=== PATIENT | female | born 1960 | race Caucasian/White ===

== ENCOUNTER 2016-05-11 14:21 | Outpatient (RCR) | payer MEDICAID ==
[~2016-05-11 14:21] MED LIST: ACET1TAB12; ACLI400A IH; AGM875T; AGM875T PO; ALB0.5V; ALBU0.8322; ALBU0.8322 IH; ALBU0.8322 INH; ALBU17AE23; ALBU17AE23 IH; ALBU17AE23 INH; ALBU17AE3; ALBU17AE3 IH; ALBU2.5V4 IH; ALBU2.5V4 NEB; ALBU2.5V52 NEB; ALBU8.5HRX IH; ALBU8.5HRX INH; ALBUTERAL INHALER; ALBUTEROL SULFATE; ALLEGRA; ALPR0.2550 PO; ALPR1T; ALPR1TAB21; ALPR1TAB7 PO; ALPR1TAB72 PO; AMOX1TAB63 PO; AMOX500C2 PO; ANTI14DR4 RIGHT EAR; AZIT-21 PO; AZIT250T PO; AZIT250T5 PO; AZIT250T81 PO; BENZ100C18 PO; BMT1T PO; BUDE0.5A2 IH; BUDE0.5A2 NEB; BUDE10.22; BUDE1AMP IH; BUDE6HFA; BUDE6HFA INH; CALC-696 PO; CALC-722 PO; CALC1TAB38 PO; CARB4TAB; CARB4TAB PO; CEFD300C3 PO; CEFP250T3 PO; CEFP500T4 PO; CEFU500T5 PO; CEPH500C PO; CETI10TA17; CFR250T; CLARITIN PO; CLIN-62 PO; CLIN150V3 IJ; CLIN150V3 PO; CMBV14.7IN; CODE-54; COMBIVENT; CTRZ10T; DEXL60CA PO; DEXL60CA5 PO; DICL500C PO; DILT120C56 PO; DILT120C57 PO; DILT120C85 PO; DILT360C30; DILT360C30 PO; DOXY-13 PO; DOXY-233 PO; DOXY100C2 PO; DOXY100C42 PO; ENXP100I SC; ESTR1TAB24; FAMO20TA5 PO; FENO145T PO; FENO145T2; FENO145T2 PO; FENO145T20 PO; FENO48TA2; FLC150T PO; FLUC150T PO; FLUC200T45 PO; FLUT10SP NS; FRSM10B60; FRSM20T; FRSM40T; FRSM40T PO; FURO80TA3 PO; GFCD10B PO; HC A28.3 PR; HCT25T PO; HYCOSAMINE PO; HYDR-2941 PO; HYDR-34 PO; HYDR-3714 PO; HYDR-3730 PO; HYDR-3816 PO; HYDR-3820 PO; HYDR-757 PO; HYDR118S10 PO; HYDR12.570 PO; HYDR1TAB3 PO; HYOS0.1217 PO; HYOS0.127 PO; HYOS0.127 SL; HYOS0.1281 PO; IOPHEN C NR; IPRA0.2S18 IH; IPRA0.2S18 NEB; IPRA0.2S47; IPRA0.2S51 NEB; IPRA3AMP IH; IPRA3AMP11 INH; IPRA3AMP19 INH; KCL10CCR; KCL10CCR PO; KCL20TCR PO; KLOR; KLOR-CON 20MEQ PO; LEVO500T2 PO; LEVO500T69 PO; LEVO750T24 PO; LEVO750T6 PO; LNS30CCR; LNZ600T PO; LORA10TA7 PO; LRT10T; LRT10T PO; LVF500T PO; METH125V2 IV; MNTL10T; MNTL10T PO; MONT10TA21; MONT10TA24 PO; MPR22T TOP; NASOCORT; NITR-65 PO; ONDA4TAB10 PO; ONDA4TAB11 PO; ONDA4TAB2 PO; ONDA8TAB13 PO; ONDN4T; ONDN4T PO; OXYC-109 PO; PALGIC; PANT40TA PO; PANT40TA3 PO; PNT40TEC; PNT40TEC PO; POLY119P PO; POTA10TA6; POTA10TA6 PO; POTA20TA15 PO; PRD20T; PRD20T PO; PRD50T PO; PRD5T PO; PRED10TA PO; PRED10TA22 PO; PRED5TAB PO; PROM25TA14 PO; PROP1TAB77; PROP1TAB77 PO; PROTONIX PO; Prednisone PO; RT-ALBUINH IH; SIMBACORT; SULF1TAB35 PO; SULF1TAB38 PO; TAZTIA; TAZTIA XT; TIOT18CA; TIOT18CA INH; TRIA16.5; TRIA16.5 NS; TRIA16.5 NSEACH; TRIA16.58 NS; TRIA16.58 NSEACH; TRIAMCINOLONE; TYLENOL # 3; WARF5TAB58 PO; WARF5TAB6 PO; WARF5TAB8 PO; WRF3T; WRF3T PO; WRF5T PO; [UNRECOGNIZED DRUG - CODE]; [UNRECOGNIZED DRUG - CODE]; [UNRECOGNIZED DRUG - OTHER]; [UNRECOGNIZED DRUG - OTHER]; [UNRECOGNIZED DRUG - OTHER]; [UNRECOGNIZED DRUG - OTHER]; [UNRECOGNIZED DRUG - OTHER]; [UNRECOGNIZED DRUG - OTHER] INH; coumadin; palgic PO; xanax
[2016-05-11 14:51] LABS: INR 3.9 (0.8-1.4); PROTHROMBIN TIME PATIENT 38.3 SEC (12.2-14.7)
[2016-06-04] MEDS ORDERED: PRD20T PO (14:58)
[2016-06-04] MEDS ORDERED: CEFD300C3 PO (14:58)
[2016-06-06] MEDS ORDERED: bumex (03:23)
[2016-06-06] MEDS ORDERED: POTA10TA10 PO (09:34)
[2016-06-06] MEDS ORDERED: DILT120C85 PO (09:34)
[2016-06-06] MEDS ORDERED: FURO80TA3 PO (09:34)
[2016-06-06] MEDS ORDERED: CALC-694 PO (09:34)
[2016-06-06] MEDS ORDERED: HYOS0.1218 PO (09:34)
[2016-06-11] MEDS ORDERED: PRD20T PO (07:46)
[2016-06-11] MEDS ORDERED: CEFP500T4 PO (07:46)
[2016-06-25 15:48] LABS: INR 4.7 (0.8-1.4); PROTHROMBIN TIME PATIENT 44.6 SEC (12.2-14.7)
[2016-07-06] MEDS ORDERED: DOXY-227 PO (19:00)
[2016-07-23] MEDS ORDERED: HYOS0.1217 SL (16:18)
== END 2016-08-09 | disposition home or self-care (01) ==
LOC: LAB 14:21
PROVIDERS: ATTEND Family Medicine
DX: Z51.81 Encounter for therapeutic drug level monitoring (principal); Z79.01 Long term (current) use of anticoagulants; Z86.718 Personal history of other venous thrombosis and embolism
CPT/HCPCS: 36415; 85610

== ENCOUNTER 2016-06-04 13:01 | Emergency (ER) | payer MEDICAID ==
[~2016-06-04] VITALS: Ht 165.1 cm; Wt 98.6 kg
--- NOTE | 2016-06-04 13:43 | ED Cough/URI ---
General Chief Complaint: Respiratory Problems Stated Complaint: COUGH/CONGESTION WHEEZING Nursing Triage Note: PT REPROTS INCREASING SOA SINCE LAST NIGHT. PT ALSO REPORTS NASAL CONGESTION AND COUGH. PT DENEIS ANY RECENT FEVER BUT SAYS SHE HAS HAD HOT AND COLD FLASHES. Source: patient Exam Limitations: no limitations History of Present Illness Time seen by provider: 13:43 Initial Comments To ER with a cough, increased shortness of breath and wheezing since last night. History of COPD with frequent exacerbations. No fevers. Timing/Duration: constant Severity/Quality: productive cough Associated Symptoms: cough, nasal congestion, shortness of breath, wheezing Allergies and Home Medications Allergies Coded Allergies: aspirin (Verified Allergy, Severe, ANAPHYLAXIS, 07/30/11) ibuprofen (Verified Allergy, Severe, ANAPHYLAXIS, 07/30/11) aloe (Verified Allergy, Mild, RASH, 07/30/11) aloe vera (Verified Allergy, Mild, 07/30/11) iodine (Verified Allergy, Unknown, 07/30/11) ketorolac (Verified Allergy, Unknown, 07/30/11) latex (Verified Allergy, Unknown, 10/07/13) OCCASIONALLY IS IRRITATING SKIN tetanus & diphtheria toxoids (Unverified Allergy, Unknown, 12/31/13) Uncoded Allergies: ALOE VERA (Allergy, Unknown, 12/23/05) SILK SUTURES (Adverse Reaction, Unknown, BODY REJECTS SUTURES, 10/07/13) Home Medications Albuterol Sulfate 2.5 Mg/3 Ml Vial.neb 2.5 MG IH TID (Reported) USES THIS ALONG WITH IPRATROPIUM SOLUTION Albuterol Sulfate 8.5 Gm Hfa.aer.ad 2 PUFF IH EVERY 4-6 HOURS PRN PRN WHEEZING ( Reported) Alprazolam 1 Mg Tablet 1 MG PO Q8H PRN PRN ANXIETY (Reported) Azithromycin 250 Mg Tablet #6 250 MG PO UD TAKE 2 TABLETS TODAY, THEN TAKE 1 TABLET DAILY FOR 4 MORE DAYS Prescribed by: KAMRAN LINDQUIST on 10/13/15 1341 Azithromycin 250 Mg Tablet #6 250 MG PO UD 2 tablets by mouth on day 1, then 1 tablet daily 4 days Prescribed by: KAMRAN LINDQUIST on 01/24/16 1322 Budesonide 1 Mg/2 Ml Ampul.neb #1 1 MG IH BID Prescribed by: STEPHANIE ECKERT on 11/30/15 1420 Calcium Citrate/Vitamin D3 1 Each Tablet 1 TAB PO BID (Reported) Diltiazem HCl 120 Mg Capsule.er 120 MG PO DAILY (Reported) Doxycycline Monohydrate 100 Mg Capsule #30 100 MG PO BID Prescribed by: STEPHANIE ECKERT on 11/30/15 1420 Fenofibrate Nanocrystallized 145 Mg Tablet 145 MG PO DAILY (Reported) Furosemide 80 Mg Tablet 80 MG PO DAILY (Reported) Hydrocodone/Acetaminophen 1 Each Tablet 1 TAB PO EVERY 6-8 HOURS PRN PRN PAIN ( Reported) Hydrocodone/Acetaminophen 1 Each Tablet #35 1-2 EACH PO Q6H Prescribed by: TEDDY PHILIP on 09/15/15 0937 Hyoscyamine Sulfate 0.125 Mg Tablet 0.125 MG PO Q6H PRN PRN CRAMPS (Reported) Ipratropium [place] 0.2 Mg/1 Ml Solution 1 VIAL NEB TID (Reported) USES ALONG WITH ALBUTEROL SOLUTION Loratadine 10 Mg Tablet 10 MG PO DAILY (Reported) Montelukast Sodium 10 Mg Tablet 10 MG PO HS (Reported) Pantoprazole Sodium 40 Mg Tablet.dr 40 MG PO DAILY (Reported) Potassium Chloride 20 Meq Tab.er.prt 20 MEQ PO TID (Reported) Prednisone 20 Mg Tab #6 40 MG PO DAILY Prescribed by: KAMRAN LINDQUIST on 10/13/15 1341 Prednisone 20 Mg Tab #15 20 MG PO TID Prescribed by: SALOMÓN ELY on 11/07/15 2136 Prednisone 5 Mg Tablet #78 5 MG PO UD 12 PILLS DAY 1, THEN DECREASE BY 1 PILL A DAY UNTIL GONE Prescribed by: STEPHANIE ECKERT on 11/30/15 1420 Prednisone 10 Mg Tab.ds.pk #42 10 MG PO UD 6 tablets on day one and 2 5 tablets on day 3 and 4 4 tablets on day 5 and 6 3 tablets on day 7 and 8 2 tablets on day 9 and 10 1 tablet on day 11 and 12 Prescribed by: KAMRAN LINDQUIST on 01/24/16 1322 Prednisone 20 Mg Tab #8 20 MG PO BID Prescribed by: ALVA LAMAR on 03/02/162048 Promethazine HCl 25 Mg Tablet 25 MG PO Q6H PRN PRN NAUSEA/VOMITING (Reported) Warfarin Sodium 5 Mg Tablet 5 MG PO DAILY @ 1800 (Reported) Constitutional: see HPI EENTM: see HPI Respiratory: see HPI cough short of breath wheezing Cardiovascular: no symptoms reported 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: no symptoms reported Musculoskeletal: no symptoms reported Skin: no symptoms reported Psychiatric/Neurological: No Symptoms Reported Hematologic/Lymphatic: No Symptoms Reported Past Rgrbhyu-Yzonsg-Pnhssp Hx Patient Social History Alcohol Use: Denies Use Recreational Drug Use: No (15 yrs ago---IV drug user including Cocaine-CLEAN SINCE 1994) Smoking Status: Former Smoker Type Used: Cigarettes Former Smoker/When Quit: May 13, 2002 Recent Foreign Travel: No Contact w/Someone Who Travel: No Recent Infectious Disease Expo: No Recent Hopitalizations: No Physical Abuse Screen: No Sexual Abuse: No Immunizations Up To Date Tetanus Booster (TDap): Less than 5yrs PED Vaccines UTD: No Date of Pneumonia Vaccine: May 13, 2010 Date of Influenza Vaccine: Mar 11, 2012 Seasonal Allergies Seasonal Allergies: Yes Surgeries HX Surgeries: Yes (shoulder scope, knee scope, dnc, trop ease filter, ) Surgeries: Abdominal, Adenoidectomy, Section, Gallbladder, Hysterectomy, Orthopedic, Tonsillectomy, Vascular Surgery Respiratory Hx Respiratory Disorders: Yes (O2 AT NIGHT 2-3L) Respiratory Disorders: Asthma, Pneumonia, Chronic Bronchitis, Pulmonary Embolism, Sleep Apnea, COPD, Emphysema Cardiovascular Hx Cardiac Disorders: Yes (VENA CAVA FILTER 2009; VARICOSE VEINS WITH VENOUS STASIS ULCERS) Cardiac Disorders: Chronic Edema/Swelling, Deep Vein Thrombosis, High Cholesterol, Hypertension, Peripheral Vascular Neurological Hx Neurological Disorders: No 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 System Hx 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 Disorders: No Sexually Transmitted Disease: No HIV/AIDS: No 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 Disorders: Denies 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 Hx 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 Disorders: Yes 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 Disorders: Bladder Infection Gastrointestinal Hx Gastrointestinal Disorders: Yes Gastrointestinal Disorders: Colitis, Gastroesophageal Reflux, Chronic Constipation, Diverticulosis, Polyps, Hiatal Hernia, Irritable Bowel Musculoskeletal Hx Musculoskeletal Disorders: Yes Musculoskeletal Disorders: Arthritis Endocrine Hx Endocrine Disorders: Yes (PRE-DIABETIC ) HEENT HX ENT Disorders: Yes (GLASSES) HEENT Disorders: Tinnitis Loss of Vision: Bilateral Hearing Impairment: Hard of Hearing Cancer Hx Cancer: No Psychosocial Hx Psychiatric Problems: Yes Behavioral Health Disorders: Anxiety Integumentary HX Skin/Integumentary Disorder: Yes (CHRONIC VENOUS STASIS CHANGES/VENOUS STASIS ULCERS) Skin/Integumentary Disorders: Recent Skin Changes Blood Transfusions Hx Blood Disorders: Yes (HX OF DVT'S/ P.E.'S; PROBABLE PROTEIN C DEFICIENCY) Adverse Reaction to a Blood Tr: No (HAS HAD BLOOD WITH NO PROBLEMS) Family Medical History Significant Family History: Cancer, COPD, Vascular Disease Family Medial History: Alcoholism Alcoholism Arthritis Asthma Cancer Cancer of colon Cancer of mouth Cardiovascular disease Cataract Cataracts Chest pain Colon cancer Completed stroke Diabetes mellitus Family history: Allergy Family history: Arthritis Family history: Asthma Family history: Cardiovascular disease Family history: Coronary thrombosis Family history: Diabetes mellitus Family history: Gastrointestinal disease Family history: Hypertension Family history: Thyroid disorder Headache Hearing loss Heart disease History of - anemia History of - respiratory disease Hypercholesterolemia Hypercholesterolemia Infertile Malignant neoplasm of lung Myocardial infarction Myocardial infarction Psychotic disorder Respiratory disorder Stroke No Family History of: AIDS Abdominal aortic aneurysm Abdominal aortic aneurysm Litchfield's disease Litchfield's disease Alzheimer's disease Aphasia Aphasia Congenital disease Congenital heart disease Congenital heart disease Congestive heart failure Coronary thrombosis Cystic fibrosis Cystic fibrosis Deafness or hearing loss Dementia Dementia Drug abuse Dysphagia Dysphasia Family history: Alzheimer's disease Family history: Breast disease Family history: Glaucoma Family history: Osteoporosis Fibrocystic disease of breast Gastroenteritis Glaucoma Headache disorder Hereditary disease History of - disorder History of drug abuse Human immunodeficiency virus (HIV) seropositivity Infertility Kidney disease Kidney disease Neoplasm Not obtainable due to adoption Osteoporosis Parkinson's disease Parkinson's disease Prostate cancer Psychosocial problem Seizure disorder Seizure disorder Severe allergy Thyroid disease Tuberculosis Tuberculosis Visual disorder Visual impairment Physical Exam Vital Signs Vital Sign - Last 12Hours 06/04/16 06/04/16 13:35 13:51 Temp 97.8 Pulse 92 Resp 22 B/P 122/80 Pulse Ox 93 O2 Delivery Room Air O2 Flow Rate 2 Capillary Refill : Less Than 3 Seconds General Appearance: WD/WN no apparent distress Eyes: Bilateral Eye EOMI, Bilateral Eye Normal Inspection, Bilateral Eye PERRL HEENT: PERRL/EOMI normal ENT inspection Neck: non-tender full range of motion Respiratory: no respiratory distress no accessory muscle use decreased breath sounds wheezing Gastrointestinal: normal bowel sounds non tender soft Extremities: normal range of motion non-tender Neurologic/Psychiatric: alert normal mood/affect oriented x 3 Skin: normal color warm/dry Progress/Results/Core Measures Results/Orders Lab Results Laboratory Tests Test 06/04/16 13:54 Range/Units Basophils # (Auto) 0.0 0.0-0.1 10^3/uL Basophils (%) (Auto) 0 0-10 % Eosinophils # (Auto) 0.3 0.0-0.3 10^3/uL Eosinophils (%) (Auto) 4 0-10 % Hematocrit 40 35-52 % Hemoglobin 13.3 11.5-16.0 G/DL INR Comment 2.9 H 0.8-1.4 Lymphocytes # (Auto) 2.1 1.0-4.0 X 10^3 Lymphocytes (%) (Auto) 26 12-44 % Mean Corpuscular Hemoglobin 29 25-34 PG Mean Corpuscular Hemoglobin Concent 33 32-36 G/DL Mean Corpuscular Volume 87 80-99 FL Mean Platelet Volume 8.9 7.4-10.4 FL Monocytes # (Auto) 0.6 0.0-1.0 X 10^3 Monocytes (%) (Auto) 8 0-12 % Neutrophils # (Auto) 5.2 1.8-7.8 X 10^3 Neutrophils (%) (Auto) 63 42-75 % Platelet Count 289 130-400 10^3/uL Prothrombin Time 29.8 H 12.2-14.7 SEC Red Blood Count 4.59 4.35-5.85 10^6/uL Red Cell Distribution Width 14.7 H 10.0-14.5 % White Blood Count 8.3 4.3-11.0 10^3/uL My Orders Orders-KAMRAN LINDQUIST [employer] Cbc With Automated Diff (06/04/16 13:38) Chest Pa/Lat (2 View) (06/04/16 13:38) Albuterol/Ipra Inhalation Soln (Duoneb I (06/04/16 13:45) Svn Sm Volume Nebulizer Rt-Rfs (06/04/16 13:38) Prednisone Tablet (Deltasone Tablet) (06/04/16 13:45) Protime With Inr (06/04/16 13:43) Ipratropium 0.02% Neb Solution (Atrovent (06/04/16 13:52) Albuterol Pre-Mix Nebs (Rt) (Proventil P (06/04/16 13:52) Medications Given in ED Current Medications Medications Dose Ordered Sig/Nahomi Route Start Time Stop Time Status Last Admin Dose Admin Albuterol Sulfate 2.5 mg STK-MED ONCE .ROUTE 06/04/16 13:52 06/04/16 14:01 DC 06/04/16 14:02 15 MG Albuterol/ Ipratropium 3 ml ONCE ONCE INH 06/04/16 13:45 06/04/16 13:46 DC 06/04/16 13:51 3 ML Ipratropium [place] 0.5 mg STK-MED ONCE IH 06/04/16 13:52 06/04/16 14:01 DC 06/04/16 14:01 0.5 MG Vital Signs/I&O Vital Sign - Last 12Hours 06/04/16 06/04/16 06/04/16 13:35 13:51 14:04 Temp 97.8 Pulse 92 Resp 22 B/P 122/80 Pulse Ox 93 94 94 O2 Delivery Room Air Nasal Cannula O2 Flow Rate 2 Blood Pressure Mean: 94 Departure Impression Impression: Primary Impression: COPD exacerbation Disposition: HOME, SELF-CARE Condition: Stable Departure-Patient Inst. Decision time for Depature: 14:51 Referrals: LEAH WOLF MD (PCP/Family) Primary Care Physician Patient Instructions: Exacerbation of COPD Add. Discharge Instructions: 1. Return to ER for any concerns 2. Steroids and azithromycin as directed 3. All discharge instructions reviewed with patient and/or family. Voiced understanding. Scripts Cefdinir 300 Mg [id number] Mg PO BID #14 CAP Prov:KAMRAN LINDQUIST [employer] 06/04/16 Prednisone 20 Mg Tab60 Mg PO DAILY #18 TAB 60 mg 3 days, 40 mg 3 days, 20 mg 3 days Prov:KAMRAN LINDQUIST [employer] 06/04/16 KAMRAN LINDQUIST [employer] UND[employer]WRITER Jun 04, 2016 13:43
[2016-06-04] MEDS ORDERED: RT-ALBUTEROL/IPRATROPIUM 3 ML (DUONEB) VIAL INH ONE (13:45)
[2016-06-04] MEDS ORDERED: predniSONE 10 MG TAB PO ONE (13:45)
[2016-06-04] MEDS ORDERED: RT-IPRATROPIUM (ATROVENT) 0.5MG/2.5ML AMP IH ONE (13:52)
[2016-06-04] MEDS ORDERED: RT-ALBUTEROL SULF 2.5 MG/3 ML PRE-MIX VIAL ONE (13:52)
[2016-06-04 14:02] LABS: BASOPHILS % (AUTO) 0 % (0-10); EOSINOPHILS # (AUTO) 0.3 10^3/uL (0.0-0.3); EOSINOPHILS % (AUTO) 4 % (0-10); LYMPHOCYTES # (AUTO) 2.1 X 10^3 (1.0-4.0); LYMPHOCYTES % (AUTO) 26 % (12-44); MEAN CORPUSCULAR HEMOGLOBIN 29 PG (25-34); MEAN CORPUSCULAR HGB CONC 33 G/DL (32-36); MEAN CORPUSCULAR VOLUME 87 FL (80-99); MEAN PLATELET VOLUME 8.9 FL (7.4-10.4); MONOCYTES # (AUTO) 0.6 X 10^3 (0.0-1.0); MONOCYTES % (AUTO) 8 % (0-12); NEUTROPHILS # (AUTO) 5.2 X 10^3 (1.8-7.8); NEUTROPHILS % (AUTO) 63 % (42-75); PLATELET COUNT 289 10^3/uL (130-400); RED BLOOD COUNT 4.59 10^6/uL (4.35-5.85); RED CELL DISTRIBUTION WIDTH 14.7 % (10.0-14.5); WHITE BLOOD COUNT 8.3 10^3/uL (4.3-11.0)
[2016-06-04 14:16] LABS: INR 2.9 (0.8-1.4); PROTHROMBIN TIME PATIENT 29.8 SEC (12.2-14.7)
--- NOTE | 2016-06-04 14:44 | Diagnostic Imaging Report ---
CLINICAL INDICATION: Patient with chest tightness, headache, and rattling. Patient complains of difficulty breathing. EXAM: Chest x-ray PA and lateral views. COMPARISONS: Chest x-ray dated 03/02/2016. FINDINGS: Lungs/pleura: There is minimal atelectasis involving the lingular region. Otherwise, stable appearance of the lung howard with no interval lung infiltrate seen. There is no pneumothorax. There is no pleural effusion. Mediastinum: Unremarkable. Pulmonary vasculature: Unremarkable. Heart: Unremarkable. Bones/extrathoracic soft tissue: There are small degenerative spurs involving the thoracic spine. IMPRESSION: Minimal lingular atelectasis. Otherwise, there is no radiographic evidence of acute cardiopulmonary process. Dictated by: Dictated on workstation # [id number]
[2016-06-04] MEDS ORDERED: PRD20T PO (14:58)
[2016-06-04] MEDS ORDERED: CEFD300C3 PO (14:58)
[2016-06-04 15:31] VITALS: BP 126/77
[2016-06-11] MEDS ORDERED: PRD20T PO (07:46)
[2016-06-11] MEDS ORDERED: CEFP500T4 PO (07:46)
== END 2016-06-04 15:30 | disposition home or self-care (01) ==
LOC: EDUNIT# 13:01 → ER 13:04
DX: J44.1 Chronic obstructive pulmonary disease with (acute) exacerbation (principal); I10 Essential (primary) hypertension; Z87.891 Personal history of nicotine dependence; Z79.899 Other long term (current) drug therapy
CPT/HCPCS: 36415; 71020; 85025; 85610; 94640; 94644

== ENCOUNTER 2016-06-06 03:01 | Inpatient (IN) | payer MEDICAID ==
[2016-06-06] VITALS (10 sets, daily range): BP systolic 106–131; BP diastolic 67–110
[~2016-06-06] VITALS: Ht 165.1 cm; Wt 102.1 kg
[2016-06-06] MEDS ORDERED: RT-ALBUTEROL SULF 2.5 MG/3 ML PRE-MIX VIAL INH STA (03:07)
[2016-06-06] MEDS ORDERED: RT-ALBUTEROL/IPRATROPIUM 3 ML (DUONEB) VIAL INH ONE (03:15)
[2016-06-06] MEDS ORDERED: bumex (03:23)
[2016-06-06 03:31] LABS: BASOPHILS % (AUTO) 0 % (0-10); EOSINOPHILS # (AUTO) 0.1 10^3/uL (0.0-0.3); EOSINOPHILS % (AUTO) 1 % (0-10); LYMPHOCYTES # (AUTO) 2.7 X 10^3 (1.0-4.0); LYMPHOCYTES % (AUTO) 29 % (12-44); MEAN CORPUSCULAR HEMOGLOBIN 29 PG (25-34); MEAN CORPUSCULAR HGB CONC 32 G/DL (32-36); MEAN CORPUSCULAR VOLUME 89 FL (80-99); MEAN PLATELET VOLUME 9.1 FL (7.4-10.4); MONOCYTES # (AUTO) 0.9 X 10^3 (0.0-1.0); MONOCYTES % (AUTO) 9 % (0-12); NEUTROPHILS # (AUTO) 5.6 X 10^3 (1.8-7.8); NEUTROPHILS % (AUTO) 61 % (42-75); PLATELET COUNT 308 10^3/uL (130-400); RED BLOOD COUNT 4.55 10^6/uL (4.35-5.85); RED CELL DISTRIBUTION WIDTH 15.1 % (10.0-14.5); WHITE BLOOD COUNT 9.2 10^3/uL (4.3-11.0)
[2016-06-06 03:38] LABS: ABG BASE EXCESS 1.1 MMOL/L (-2.5-2.5); ABG HCO3 27 MMOL/L (23-27); ABG OXYGEN SATURATION 99 % (94-100); ABG PCO2 44 MMHG (35-45); ABG PO2 144 MMHG (79-93); ABG TCO2 27.9 MMOL/L (21.0-31.0); ALLENS TEST YES-POS
[2016-06-06 03:39] LABS: PATIENT TEMP 97.7
[2016-06-06 03:45] LABS: PROTHROMBIN TIME PATIENT 31.2 SEC (12.2-14.7)
[2016-06-06 03:47] LABS: ALANINE AMINOTRANSFERASE 22 U/L (0-55); ALBUMIN 3.9 G/DL (3.2-4.5); ANION GAP 13 MMOL/L (5-14); ASPARTATE AMINO TRANSFERASE 17 U/L (5-34); BILIRUBIN,TOTAL 0.2 MG/DL (0.1-1.0); BLOOD UREA NITROGEN 16 MG/DL (7-18); BUN/CREATININE RATIO 21; CALCIUM 8.9 MG/DL (8.5-10.1); CARBON DIOXIDE 23 MMOL/L (21-32); CHLORIDE 107 MMOL/L (98-107); CREATININE SERUM 0.77 MG/DL (0.60-1.30); GFR ESTIMATED > 60; GLUCOSE 111 MG/DL (70-105); POTASSIUM 3.4 MMOL/L (3.6-5.0); SODIUM 143 MMOL/L (135-145); hs C REACTIVE PROTEIN 0.05 MG/DL (0.00-0.50)
[2016-06-06] MEDS ORDERED: methylPREDNISolone 125 MG (Solu-MEDROL) VIAL IV STA (05:41)
[2016-06-06] MEDS ORDERED: LORazepam INJ 2 MG/ML (ATIVAN) VIAL IVP ONE (05:45)
--- NOTE | 2016-06-06 06:05 | ED Respiratory ---
General Chief Complaint: Respiratory Problems Stated Complaint: COPD,SOA Nursing Triage Note: SOA x 1 week and a half. Pt was seen in ED on Saturday and was sent home. Pt reports worse this am. Source: patient Exam Limitations: no limitations History of Present Illness Time seen by provider: 03:05 Initial Comments Here with shortness of air that has increased over the last week. Markedly worse on Saturday and was seen here on Saturday. She was started on prednisone and an antibiotic. She filled the antibiotic but did not take them. She denies fever or chills. She is due to have a doctor's appointment with her doctor today but the shortness of air markedly increased overnight. She had to increase her oxygen to keep her sats and reasonable range. She then became quite dyspneic and called EMS. On their arrival they increased her oxygen to full facemask but patient remained significantly dyspneic and ultimately was started on CPAP. This did improve her respiratory status and her O2 sats were in the upper 90s per EMS. No fever per EMS. Denies chest pain, nausea, vomiting or diarrhea. She denies weakness. Does have significant COPD and has occasional exacerbations. Timing/Duration: week, getting worse Severity: moderate Prior Episodes/Possible Cause: occasional episodes Modifying Factors: Worse With Activity, Improves With Albuterol Nebulizer, Worse With Coughing, Improves With Oxygen Associated Symptoms: shortness of breath Allergies and Home Medications Allergies Coded Allergies: aspirin (Verified Allergy, Severe, ANAPHYLAXIS, 07/30/11) ibuprofen (Verified Allergy, Severe, ANAPHYLAXIS, 07/30/11) aloe (Verified Allergy, Mild, RASH, 07/30/11) aloe vera (Verified Allergy, Mild, 07/30/11) iodine (Verified Allergy, Unknown, 07/30/11) ketorolac (Verified Allergy, Unknown, 07/30/11) latex (Verified Allergy, Unknown, 10/07/13) OCCASIONALLY IS IRRITATING SKIN tetanus & diphtheria toxoids (Unverified Allergy, Unknown, 12/31/13) Uncoded Allergies: ALOE VERA (Allergy, Unknown, 12/23/05) SILK SUTURES (Adverse Reaction, Unknown, BODY REJECTS SUTURES, 10/07/13) Home Medications 1 MG (Reported) Albuterol Sulfate 2.5 Mg/3 Ml Vial.neb 2.5 MG IH TID (Reported) USES THIS ALONG WITH IPRATROPIUM SOLUTION Albuterol Sulfate 8.5 Gm Hfa.aer.ad 2 PUFF IH EVERY 4-6 HOURS PRN PRN WHEEZING ( Reported) Alprazolam 1 Mg Tablet 1 MG PO Q8H PRN PRN ANXIETY (Reported) Calcium Citrate/Vitamin D3 1 Each Tablet 1 TAB PO BID (Reported) Cefdinir 300 Mg Capsule #14 300 MG PO BID Prescribed by: KAMRAN LINDQUIST on 06/04/16 1458 Diltiazem HCl 120 Mg Capsule.er 120 MG PO DAILY (Reported) Fenofibrate Nanocrystallized 145 Mg Tablet 145 MG PO DAILY (Reported) Hydrocodone/Acetaminophen 1 Each Tablet 1 TAB PO EVERY 6-8 HOURS PRN PRN PAIN ( Reported) Hyoscyamine Sulfate 0.125 Mg Tablet 0.125 MG PO Q6H PRN PRN CRAMPS (Reported) Ipratropium Gatzke 0.2 Mg/1 Ml Solution 1 VIAL NEB TID (Reported) USES ALONG WITH ALBUTEROL SOLUTION Loratadine 10 Mg Tablet 10 MG PO DAILY (Reported) Montelukast Sodium 10 Mg Tablet 10 MG PO HS (Reported) Pantoprazole Sodium 40 Mg Tablet.dr 40 MG PO DAILY (Reported) Potassium Chloride 20 Meq Tab.er.prt 20 MEQ PO TID (Reported) Promethazine HCl 25 Mg Tablet 25 MG PO Q6H PRN PRN NAUSEA/VOMITING (Reported) Warfarin Sodium 5 Mg Tablet 5 MG PO DAILY @ 1800 (Reported) Constitutional: see HPINo chills, No fever EENTM: nose congestionNo throat pain Respiratory: see HPI cough dyspnea on exertion short of breath wheezing Cardiovascular: no symptoms reported Gastrointestinal: no symptoms reportedNo abdominal pain, No nausea, No vomiting 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: no symptoms reported Musculoskeletal: no symptoms reported Skin: no symptoms reported Psychiatric/Neurological: No Symptoms Reported All Other Systems Reviewed Negative Unless Noted: Yes Past Kbqhqrv-Acejfp-Gzzlqe Hx Patient Social History Alcohol Use: Denies Use Recreational Drug Use: No (15 yrs ago---IV drug user including Cocaine-CLEAN SINCE 1994) Smoking Status: Former Smoker Type Used: Cigarettes Former Smoker/When Quit: May 13, 2002 Recent Foreign Travel: No Contact w/Someone Who Travel: No Recent Infectious Disease Expo: No Recent Hopitalizations: No Physical Abuse Screen: No Sexual Abuse: No Immunizations Up To Date Tetanus Booster (TDap): Less than 5yrs PED Vaccines UTD: No Date of Pneumonia Vaccine: May 13, 2010 Date of Influenza Vaccine: Mar 11, 2012 Seasonal Allergies Seasonal Allergies: Yes Surgeries HX Surgeries: Yes (shoulder scope, knee scope, dnc, trop ease filter, ) Surgeries: Abdominal, Adenoidectomy, Section, Gallbladder, Hysterectomy, Orthopedic, Tonsillectomy, Vascular Surgery Respiratory Hx Respiratory Disorders: Yes (O2 AT NIGHT 2-3L) Respiratory Disorders: Asthma, Pneumonia, Chronic Bronchitis, Pulmonary Embolism, Sleep Apnea, COPD, Emphysema Cardiovascular Hx Cardiac Disorders: Yes (VENA CAVA FILTER 2009; VARICOSE VEINS WITH VENOUS STASIS ULCERS) Cardiac Disorders: Chronic Edema/Swelling, Deep Vein Thrombosis, High Cholesterol, Hypertension, Peripheral Vascular Neurological Hx Neurological Disorders: No 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 System Hx 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 Disorders: No Sexually Transmitted Disease: No HIV/AIDS: No 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 Disorders: 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 Hx 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 Disorders: Yes 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 Disorders: Bladder Infection Gastrointestinal Hx Gastrointestinal Disorders: Yes Gastrointestinal Disorders: Colitis, Gastroesophageal Reflux, Chronic Constipation, Diverticulosis, Polyps, Hiatal Hernia, Irritable Bowel Musculoskeletal Hx Musculoskeletal Disorders: Yes Musculoskeletal Disorders: Arthritis Endocrine Hx Endocrine Disorders: Yes (PRE-DIABETIC ) HEENT HX ENT Disorders: Yes (GLASSES) HEENT Disorders: Tinnitis Loss of Vision: Bilateral Hearing Impairment: Hard of Hearing Cancer Hx Cancer: No Psychosocial Hx Psychiatric Problems: Yes Behavioral Health Disorders: Anxiety Integumentary HX Skin/Integumentary Disorder: Yes (CHRONIC VENOUS STASIS CHANGES/VENOUS STASIS ULCERS) Skin/Integumentary Disorders: Recent Skin Changes Blood Transfusions Hx Blood Disorders: Yes (HX OF DVT'S/ P.E.'S; PROBABLE PROTEIN C DEFICIENCY) Adverse Reaction to a Blood Tr: No (HAS HAD BLOOD WITH NO PROBLEMS) Reviewed Nursing Assessment Reviewed/Agree w Nursing PMH: Yes Family Medical History Significant Family History: Cancer, COPD, Vascular Disease Family Medial History: Alcoholism Alcoholism Arthritis Asthma Cancer Cancer of colon Cancer of mouth Cardiovascular disease Cataract Cataracts Chest pain Colon cancer Completed stroke Diabetes mellitus Family history: Allergy Family history: Arthritis Family history: Asthma Family history: Cardiovascular disease Family history: Coronary thrombosis Family history: Diabetes mellitus Family history: Gastrointestinal disease Family history: Hypertension Family history: Thyroid disorder Headache Hearing loss Heart disease History of - anemia History of - respiratory disease Hypercholesterolemia Hypercholesterolemia Infertile Malignant neoplasm of lung Myocardial infarction Myocardial infarction Psychotic disorder Respiratory disorder Stroke Physical Exam Vital Signs Vital Sign - Last 12Hours 06/06/16 06/06/16 03:04 03:38 Temp 97.7 Pulse 119 Resp 20 B/P 146/103 Pulse Ox 96 O2 Delivery NIV/Bilevel O2 Flow Rate 50 Capillary Refill : Less Than 3 Seconds General Appearance: WD/WN mild distress no apparent distress HEENT: PERRL/EOMI pharynx normal Neck: full range of motion supple Respiratory: respiratory distress decreased breath sounds accessory muscle use wheezing Cardiovascular: no murmur tachycardia Gastrointestinal: non tender soft Extremities: non-tender normal inspection Neurologic/Psychiatric: alert oriented x 3 Skin: normal color warm/dry Progress/Results/Core Measures Results/Orders Lab Results Laboratory Tests Test 06/06/16 03:13 06/06/16 03:15 Range/Units Papa Test YES-POS Arterial Blood Base Excess 1.1 -2.5-2.5 MMOL/L Arterial Blood HCO3 27 23-27 MMOL/L Arterial Blood Oxygen Saturation 99 94-100 % Arterial Blood Partial Pressure CO2 44 35-45 MMHG Arterial Blood Partial Pressure O2 144 H 79-93 MMHG Arterial Blood Total CO2 27.9 21.0-31.0 MMOL/L Arterial Blood pH 7.40 7.37-7.43 Blood Gas Inspired Oxygen 50% BIPAP Blood Gas Patient Temperature 97.7 Blood Gas Puncture Site L RAD Blood Gas Ventilator Setting NO Activated Partial Thromboplast Time 34 24-35 SEC Alanine Aminotransferase (ALT/SGPT) 22 0-55 U/L Albumin 3.9 3.2-4.5 G/DL Alkaline Phosphatase 76 40-136 U/L Anion Gap 13 5-14 MMOL/L Aspartate Amino Transf (AST/SGOT) 17 5-34 U/L BUN/Creatinine Ratio 21 Basophils # (Auto) 0.0 0.0-0.1 10^3/uL Basophils (%) (Auto) 0 0-10 % Blood Urea Nitrogen 16 7-18 MG/DL C-Reactive Protein High Sensitivity 0.05 0.00-0.50 MG/DL Calcium Level 8.9 8.5-10.1 MG/DL Carbon Dioxide Level 23 21-32 MMOL/L Chloride Level 107 98-107 MMOL/L Creatinine 0.77 0.60-1.30 MG/DL Eosinophils # (Auto) 0.1 0.0-0.3 10^3/uL Eosinophils (%) (Auto) 1 0-10 % Estimat Glomerular Filtration Rate > 60 Glucose Level 111 H 70-105 MG/DL Hematocrit 40 35-52 % Hemoglobin 13.1 11.5-16.0 G/DL INR Comment 3.0 H 0.8-1.4 Lactic Acid Level 1.9 0.5-2.0 MMOL/L Lymphocytes # (Auto) 2.7 1.0-4.0 X 10^3 Lymphocytes (%) (Auto) 29 12-44 % Mean Corpuscular Hemoglobin 29 25-34 PG Mean Corpuscular Hemoglobin Concent 32 32-36 G/DL Mean Corpuscular Volume 89 80-99 FL Mean Platelet Volume 9.1 7.4-10.4 FL Monocytes # (Auto) 0.9 0.0-1.0 X 10^3 Monocytes (%) (Auto) 9 0-12 % Neutrophils # (Auto) 5.6 1.8-7.8 X 10^3 Neutrophils (%) (Auto) 61 42-75 % Platelet Count 308 130-400 10^3/uL Potassium Level 3.4 L 3.6-5.0 MMOL/L Prothrombin Time 31.2 H 12.2-14.7 SEC Red Blood Count 4.55 4.35-5.85 10^6/uL Red Cell Distribution Width 15.1 H 10.0-14.5 % Sodium Level 143 135-145 MMOL/L Total Bilirubin 0.2 0.1-1.0 MG/DL Total Protein 7.0 6.4-8.2 G/DL White Blood Count 9.2 4.3-11.0 10^3/uL My Orders Orders-ANDRES HOWE MD Cbc With Automated Diff (06/06/16 03:07) Comprehensive Metabolic Panel (06/06/16 03:07) Hs C Reactive Protein (06/06/16 03:07) Lactic Acid Analyzer (06/06/16 03:07) Blood Culture (06/06/16 03:07) Chest 1 View, Ap/Pa Only (06/06/16 03:07) Albuterol Pre-Mix Nebs (Rt) (Proventil P (06/06/16 03:07) Albuterol/Ipra Inhalation Soln (Duoneb I (06/06/16 03:15) Svn Sm Volume Nebulizer Rt-Rfs (06/06/16 03:07) Svn Sm Volume Nebulizer Rt-Rfs (06/06/16 03:07) Protime With Inr (06/06/16 03:07) Partial Thromboplastin Time (06/06/16 03:07) Arterial Blood Gas (06/06/16 03:20) Methylprednisolone Sod Succ (Solu-Medrol (06/06/16 05:41) Lorazepam Injection (Ativan Injection) (06/06/16 05:45) Medications Given in ED Current Medications Medications Dose Ordered Sig/Nahomi Route Start Time Stop Time Status Last Admin Dose Admin Albuterol/ Ipratropium 3 ml ONCE ONCE INH 06/06/16 03:15 06/06/16 03:16 DC 06/06/16 03:37 3 ML Lorazepam 0.5 mg ONCE ONCE IVP 06/06/16 05:45 06/06/16 05:46 DC 06/06/16 05:50 0.5 MG Vital Signs/I&O Vital Sign - Last 12Hours 06/06/16 06/06/16 03:04 03:38 Temp 97.7 Pulse 119 97 Resp 20 20 B/P 146/103 Pulse Ox 96 98 O2 Delivery NIV/Bilevel O2 Flow Rate 50 Blood Pressure Mean: 117 Progress Note : Progress Note Seen and evaluated. IV, labs, BiPAP initiated and continuous one-hour treatment started. ABG ordered. Monitor patient. Patient is doing better on BiPAP. O2 sats improved and oxygen titrated to 50 percent. Monitor patient. 0544: Patient will get Solu-Medrol 125 mg IV and is going to get Ativan 0.5 mg IV for agitation/anxiousness due to the BiPAP. Overall she states that she is improved. I did discuss the case with Dr. Wolf. No findings of pneumonia or other infectious process. This appears to be significant COPD exacerbation requiring BiPAP at least short-term. We will admit the patient to the hospital for continued evaluation. Treatment continuing and is almost done. Admit, observation status to step down unit. Diagnostic Imaging Diagonstic Imaging: Xray Plain Films/CT/US/NM/MRI: chest Comments No acute findings. Chronic lung disease noted. Departure Communication Time/Spoke to Admitting Phy: 05:44 Impression Impression: Primary Impression: Acute exacerbation of chronic obstructive airways disease Disposition: ADMITTED INPATIENT Condition: Stable Decision to Admit Reason: Admit from ER (General) Decision to Admit/Date: Jun 06, 2016 Time/Decision to Admit Time: 05:44 Departure-Patient Inst. Referrals: LEAH WOLF MD (PCP/Family) Primary Care Physician ANDRES HOWE MD Jun 06, 2016 06:04
--- NOTE | 2016-06-06 07:10 | Diagnostic Imaging Report ---
INDICATION: Shortness of breath. Comparison with 06/04/2016. FINDINGS: The lungs are well-aerated and clear. Heart is not enlarged. There is no pulmonary edema. No pneumothorax or pleural effusion. IMPRESSION: Normal portable chest. Dictated by: Dictated on workstation # [id number]
--- NOTE | 2016-06-06 07:12 | History & Physicial ---
History of Present Illness History of Present Illness Reason for visit/HPI 55-year-old female presented to [facility] emergency department via [facility]. Patient had apparently significant dyspnea this a.m. and despite increasing oxygen at home she did not improve. Her COPD exacerbation had initially started over the weekend and was seen at the emergency department where she was placed on prednisone as well as antibiotic. She apparently started the prednisone but not the antibiotic. There is been no reports of fever. She does admit to a cough. She is with known asthma and frequent admissions for COPD exacerbation. She has been on multiple chronic steroid inhalers and continues to take these. Date of Admission Jun 06, 2016 at 05:44 I consulted on this patient on 06/06/16 07:08 Attending Physician Leah Wolf MD Admitting Physician Leah Wolf MD Consult Allergies and Home Medications Allergies Coded Allergies: aspirin (Verified Allergy, Severe, ANAPHYLAXIS, 07/30/11) ibuprofen (Verified Allergy, Severe, ANAPHYLAXIS, 07/30/11) aloe (Verified Allergy, Mild, RASH, 07/30/11) aloe vera (Verified Allergy, Mild, 07/30/11) iodine (Verified Allergy, Unknown, 07/30/11) ketorolac (Verified Allergy, Unknown, 07/30/11) latex (Verified Allergy, Unknown, 10/07/13) OCCASIONALLY IS IRRITATING SKIN tetanus & diphtheria toxoids (Unverified Allergy, Unknown, 12/31/13) Uncoded Allergies: ALOE VERA (Allergy, Unknown, 12/23/05) SILK SUTURES (Adverse Reaction, Unknown, BODY REJECTS SUTURES, 10/07/13) Home Medications 1 MG (Reported) Albuterol Sulfate 2.5 Mg/3 Ml Vial.neb 2.5 MG IH TID (Reported) USES THIS ALONG WITH IPRATROPIUM SOLUTION Albuterol Sulfate 8.5 Gm Hfa.aer.ad 2 PUFF IH EVERY 4-6 HOURS PRN PRN WHEEZING ( Reported) Alprazolam 1 Mg Tablet 1 MG PO Q8H PRN PRN ANXIETY (Reported) Calcium Citrate/Vitamin D3 1 Each Tablet 1 TAB PO BID (Reported) Cefdinir 300 Mg Capsule #14 300 MG PO BID Prescribed by: KAMRAN LINDQUIST on 06/04/16 6237 Diltiazem HCl 120 Mg Capsule.er 120 MG PO DAILY (Reported) Fenofibrate Nanocrystallized 145 Mg Tablet 145 MG PO DAILY (Reported) Hydrocodone/Acetaminophen 1 Each Tablet 1 TAB PO EVERY 6-8 HOURS PRN PRN PAIN ( Reported) Hyoscyamine Sulfate 0.125 Mg Tablet 0.125 MG PO Q6H PRN PRN CRAMPS (Reported) Ipratropium Babbitt 0.2 Mg/1 Ml Solution 1 VIAL NEB TID (Reported) USES ALONG WITH ALBUTEROL SOLUTION Loratadine 10 Mg Tablet 10 MG PO DAILY (Reported) Montelukast Sodium 10 Mg Tablet 10 MG PO HS (Reported) Pantoprazole Sodium 40 Mg Tablet.dr 40 MG PO DAILY (Reported) Potassium Chloride 20 Meq Tab.er.prt 20 MEQ PO TID (Reported) Promethazine HCl 25 Mg Tablet 25 MG PO Q6H PRN PRN NAUSEA/VOMITING (Reported) Warfarin Sodium 5 Mg Tablet 5 MG PO DAILY @ 1800 (Reported) Past Csmggty-Pcrsbb-Egsvjf Hx Patient Social History Marrital Status: single Number of Children: 3 Alcohol Use: Denies Use Recreational Drug Use: No (15 yrs ago---IV drug user including Cocaine-CLEAN SINCE 1994) Smoking Status: Former Smoker Former smoker/When Quit: May 13, 2002 Type Used: Cigarettes Physical Abuse Screen: No Sexual Abuse: No Recent Foreign Travel: No Contact w/other who traveled: No Recent Hopitalizations: No Recent Infectious Disease Expo: No Immunizations Up To Date Tetanus Booster (TDap): Less than 5yrs Date of Pneumonia Vaccine: May 13, 2010 Date of Influenza Vaccine: Mar 11, 2012 Seasonal Allergies Seasonal Allergies: Yes Surgeries HX Surgeries: Yes (shoulder scope, knee scope, dnc, trop ease filter, ) Surgeries: Abdominal, Adenoidectomy, Section, Gallbladder, Hysterectomy, Orthopedic, Tonsillectomy, Vascular Surgery Respiratory Hx Respiratory Disorders: Yes (O2 AT NIGHT 2-3L) Cardiovascular Hx Cardiovascular Disorders: Yes (VENA CAVA FILTER 2009; VARICOSE VEINS WITH VENOUS STASIS ULCERS) Cardiac Disorders: Chronic Edema/Swelling, Deep Vein Thrombosis, High Cholesterol, Hypertension, Peripheral Vascular Neurological Hx Neurological Disorders: No 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 System Hx 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 Disorders: No Sexually Transmitted Disease: No HIV/AIDS: No 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 Hx 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 Disorders: Yes 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 Disorders: Bladder Infection Gastrointestinal Hx Gastrointestinal Disorders: Yes Gastrointestinal Disorders: Colitis, Gastroesophageal Reflux, Chronic Constipation, Diverticulosis, Polyps, Hiatal Hernia, Irritable Bowel Musculoskeletal Hx Musculoskeletal Disorders: Yes Musculoskeletal Disorders: Arthritis Endocrine Hx Endocrine Disorders: Yes (PRE-DIABETIC ) HEENT HX ENT Disorders: Yes (GLASSES) HEENT Disorders: Tinnitis Loss of Vision: Bilateral Hearing Impairment: Hard of Hearing Cancer Hx Cancer: No Psychosocial Hx Psychiatric Problems: Yes Behavioral Health Disorders: Anxiety Integumentary HX Skin/Integumentary Disorder: Yes (CHRONIC VENOUS STASIS CHANGES/VENOUS STASIS ULCERS) Skin/Integumentary Disorders: Recent Skin Changes Blood Transfusions Hx Blood Disorders: Yes (HX OF DVT'S/ P.E.'S; PROBABLE PROTEIN C DEFICIENCY) Adverse Reaction to a Blood Tr: No (HAS HAD BLOOD WITH NO PROBLEMS) Reviewed Nursing Assessment Reviewed/Agree w Nursing PMH: Yes Family Medical History Significant Family History: Cancer, COPD, Vascular Disease Family Hx: Alcoholism Alcoholism Arthritis Asthma Cancer Cancer of colon Cancer of mouth Cardiovascular disease Cataract Cataracts Chest pain Colon cancer Completed stroke Diabetes mellitus Family history: Allergy Family history: Arthritis Family history: Asthma Family history: Cardiovascular disease Family history: Coronary thrombosis Family history: Diabetes mellitus Family history: Gastrointestinal disease Family history: Hypertension Family history: Thyroid disorder Headache Hearing loss Heart disease History of - anemia History of - respiratory disease Hypercholesterolemia Hypercholesterolemia Infertile Malignant neoplasm of lung Myocardial infarction Myocardial infarction Psychotic disorder Respiratory disorder Stroke No Family History of: AIDS Abdominal aortic aneurysm Abdominal aortic aneurysm Fernando's disease [place]'s disease Alzheimer's disease Aphasia Aphasia Congenital disease Congenital heart disease Congenital heart disease Congestive heart failure Coronary thrombosis Cystic fibrosis Cystic fibrosis Deafness or hearing loss Dementia Dementia Drug abuse Dysphagia Dysphasia Family history: Alzheimer's disease Family history: Breast disease Family history: Glaucoma Family history: Osteoporosis Fibrocystic disease of breast Gastroenteritis Glaucoma Headache disorder Hereditary disease History of - disorder History of drug abuse Human immunodeficiency virus (HIV) seropositivity Infertility Kidney disease Kidney disease Neoplasm Not obtainable due to adoption Osteoporosis Parkinson's disease Parkinson's disease Prostate cancer Psychosocial problem Seizure disorder Seizure disorder Severe allergy Thyroid disease Tuberculosis Tuberculosis Visual disorder Visual impairment Constitutional: see HPI Physical Exam Vital Signs Vital Sign - Last 12Hours 06/06/16 06/06/16 03:04 03:38 Temp 97.7 Pulse 119 Resp 20 B/P 146/103 Pulse Ox 96 O2 Delivery NIV/Bilevel O2 Flow Rate 50 Capillary Refill : Less Than 3 Seconds General Appearance: Moderate Distress Eyes: Bilateral Eye Normal Inspection HEENT: Normal ENT Inspection (With mild pharyngeal erythema) Respiratory: Accessory Muscle Use Other (Distant lung sounds) Cardiovascular: Regular Rate, Rhythm Gastrointestinal: Soft Extremity: Normal Capillary Refill (Less than 3 seconds) Assessment/Plan Assessment and Plan 1. COPD exacerbation -Patient currently on BiPAP in the ED. -Patient to be admitted to intensive care unit for initial monitoring and to eventually wean off the BiPAP. -She'll be maintained on Solu-Medrol 125 mg every 8 hours and albuterol nebulizing treatments as well as oxygen to maintain saturations in the 90 percentile Admission Diagnosis 1. COPD exacerbation LEAH WOLF MD Jun 06, 2016 07:12
[2016-06-06] MEDS ORDERED: LORazepam INJ 2 MG/ML (ATIVAN) VIAL IVP PRN (08:00)
[2016-06-06] MEDS ORDERED: FURO80TA3 PO (09:34)
[2016-06-06] MEDS ORDERED: POTA10TA10 PO (09:34)
[2016-06-06] MEDS ORDERED: CALC-694 PO (09:34)
[2016-06-06] MEDS ORDERED: DILT120C85 PO (09:34)
[2016-06-06] MEDS ORDERED: HYOS0.1218 PO (09:34)
[2016-06-06] MEDS: LORazepam INJ 2 MG/ML (ATIVAN) VIAL IVP PRN ×2 (09:51→18:18)
[2016-06-06] MEDS: NS IV 1000 ML 1,000 ML IV SCH (09:53)
[2016-06-06] MEDS: RT-ALBUTEROL SULF 2.5 MG/3 ML PRE-MIX VIAL INH SCH ×4 (10:03→22:05)
[2016-06-06] MEDS ORDERED: RT-ALBUTEROL SULF 2.5 MG/3 ML PRE-MIX VIAL INH PRN (12:00)
[2016-06-06] MEDS: methylPREDNISolone 125 MG (Solu-MEDROL) VIAL IVP SCH ×3 (13:27→23:40)
[2016-06-06] MEDS ORDERED: FLU TRIvalent (5 YOA+) 2016-17 (AFLURIA) 0.5 ML IM ONE (17:45)
[2016-06-06] MEDS ORDERED: PROMETHAZINE 25 MG (PHENERGAN) TAB PO PRN (19:00)
[2016-06-06] MEDS ORDERED: ALPRAZolam 1 MG (XANAX) TAB PO PRN (19:00)
[2016-06-06] MEDS ORDERED: CATHETER FLUSH 10 ML SYR IV PRN (19:30)
[2016-06-06] MEDS: warFARin 5 MG (COUMADIN) TAB PO SCH (21:34)
[2016-06-06] MEDS: KCL 10 MEQ TAB (MICRO K) PO SCH (21:34)
[2016-06-06] MEDS: MONTELUKAST 10 MG (SINGULAIR) TAB PO SCH (21:34)
[2016-06-06] MEDS: HYDROcodone/APAP 10 MG/325 MG (LORTAB) TAB PO PRN (23:40)
[2016-06-07] MEDS: guaiFENesin/DM (ROBITUSSIN DM) 10 ML UDC PO PRN ×2 (01:11→10:55)
[2016-06-07] MEDS: RT-ALBUTEROL SULF 2.5 MG/3 ML PRE-MIX VIAL INH SCH ×2 (02:19→06:42)
[2016-06-07 03:44] VITALS: BP 117/81
[2016-06-07 04:25] LABS: BASOPHILS % (AUTO) 0 % (0-10); EOSINOPHILS % (AUTO) 0 % (0-10); LYMPHOCYTES # (AUTO) 0.7 X 10^3 (1.0-4.0); LYMPHOCYTES % (AUTO) 9 % (12-44); MEAN CORPUSCULAR HEMOGLOBIN 29 PG (25-34); MEAN CORPUSCULAR HGB CONC 32 G/DL (32-36); MEAN CORPUSCULAR VOLUME 90 FL (80-99); MEAN PLATELET VOLUME 9.1 FL (7.4-10.4); MONOCYTES # (AUTO) 0.3 X 10^3 (0.0-1.0); MONOCYTES % (AUTO) 4 % (0-12); NEUTROPHILS # (AUTO) 6.5 X 10^3 (1.8-7.8); PLATELET COUNT 326 10^3/uL (130-400); RED BLOOD COUNT 4.71 10^6/uL (4.35-5.85); RED CELL DISTRIBUTION WIDTH 15.4 % (10.0-14.5); WHITE BLOOD COUNT 7.5 10^3/uL (4.3-11.0)
[2016-06-07 04:36] LABS: NEUTROPHILS % (AUTO) 85 % (42-75)
[2016-06-07 04:42] LABS: ANION GAP 10 MMOL/L (5-14); BLOOD UREA NITROGEN 18 MG/DL (7-18); BUN/CREATININE RATIO 25; CALCIUM 9.2 MG/DL (8.5-10.1); CARBON DIOXIDE 24 MMOL/L (21-32); CHLORIDE 107 MMOL/L (98-107); CREATININE SERUM 0.72 MG/DL (0.60-1.30); GFR ESTIMATED > 60; GLUCOSE 121 MG/DL (70-105); POTASSIUM 3.8 MMOL/L (3.6-5.0); SODIUM 141 MMOL/L (135-145)
[2016-06-07] MEDS: FUROSEMIDE 40 MG (LASIX) TAB PO SCH (06:29)
[2016-06-07] MEDS: PANTOPRAZOLE 40 MG (PROTONIX) TAB PO SCH (06:29)
[2016-06-07] MEDS: KCL 10 MEQ TAB (MICRO K) PO SCH ×3 (06:29→17:03)
[2016-06-07] MEDS: methylPREDNISolone 125 MG (Solu-MEDROL) VIAL IVP SCH ×4 (06:30→23:48)
--- NOTE | 2016-06-07 07:41 | Progress Note (SOAP) ---
Subjective Subjective/Events-last exam patient is now off BiPAP and utilizing nasal cannula at 4 L. She is breathing much better but still reports a cough. She does report the cough is productive. There is been no significant fever. Objective Exam Vital Signs Date Time Temp Pulse Resp B/P Pulse Ox O2 Delivery O2 Flow Rate FiO2 06/07/16 06:42 92 4.00 06/07/16 03:44 97.1 88 20 117/81 93 Nasal Cannula 4.00 06/07/16 03:43 Nasal Cannula 4.00 06/07/16 02:20 94 4.00 06/07/16 01:00 97 06/07/16 00:56 Nasal Cannula 4.00 06/06/16 23:58 97.0 110 16 112/87 94 Nasal Cannula 4.00 06/06/16 22:05 92 4.00 06/06/16 21:00 Nasal Cannula 4.00 06/06/16 20:00 97.5 101 112/79 91 Nasal Cannula 4.00 06/06/16 20:00 Nasal Cannula 4.00 06/06/16 19:00 112 06/06/16 18:37 92 4.00 06/06/16 16:37 114/95 91 Nasal Cannula 4.00 06/06/16 16:00 Nasal Cannula 4.00 06/06/16 13:46 92 4.00 06/06/16 13:00 99 06/06/16 12:45 92 Nasal Cannula 4.00 06/06/16 12:30 92 4.00 06/06/16 12:00 98.0 101 14 117/83 95 NIV/Bilevel 30.00 06/06/16 10:03 113 17 30.00 06/06/16 09:30 97 16 106/82 NIV/Bilevel 40.00 06/06/16 08:43 95 06/06/16 08:30 105 15 119/85 NIV/Bilevel 40.00 06/06/16 08:30 92 16 40.00 06/06/16 08:00 NIV Bilevel 40 06/06/16 07:45 98.8 110 16 106/67 96 NIV/Bilevel 40.00 I & O 06/07/16 07:00 Intake Total 900 ml Output Total 1350 ml Balance -450 ml Capillary Refill : Less Than 3 Seconds General Appearance: No Apparent Distress Respiratory: Rhonci (throughout) Wheezing (throughout) Cardiovascular: Regular Rate, Rhythm Gastrointestinal: soft Extremity: Swelling (1+ at the ankles) Skin: Normal Color Results Lab Laboratory Tests 06/07/16 03:41: Anion Gap 10, BUN/Creatinine Ratio 25, Basophils # (Auto) 0.0, Basophils (%) ( Auto) 0, Blood Urea Nitrogen 18, Calcium Level 9.2, Carbon Dioxide Level 24, Chloride Level 107, Creatinine 0.72, Eosinophils # (Auto) 0.0, Eosinophils (%) ( Auto) 0, Estimat Glomerular Filtration Rate > 60, Glucose Level 121H, Hematocrit 42, Hemoglobin 13.6, Lymphocytes # (Auto) 0.7L, Lymphocytes (%) (Auto ) 9L, Mean Corpuscular Hemoglobin 29, Mean Corpuscular Hemoglobin Concent 32, Mean Corpuscular Volume 90, Mean Platelet Volume 9.1, Monocytes # (Auto) 0.3, Monocytes (%) (Auto) 4, Neutrophils # (Auto) 6.5, Neutrophils (%) (Auto) 85H, Platelet Count 326, Potassium Level 3.8, Red Blood Count 4.71, Red Cell Distribution Width 15.4H, Sodium Level 141, White Blood Count 7.5 Microbiology 06/06/16 Blood Culture - Preliminary, Resulted No growth Assessment/Plan Assessment/Plan Assess & Plan/Chief Complaint 1. COPD exacerbation -Patient will be transferred to [facility] since she has improved and no longer requires intensive care unit -Patient to be changed from Solu-Medrol 125 mg every 6 to 80 mg every 8. -Taper down on the amount of nasal cannula oxygen as she improves. Diagnosis/Problems: Clinical Quality Measures DVT/VTE Risk/Contraindication: Risk Factor Score Per Nursin RFS Level Per Nursing on Admit: 4+=Very High LEAH WOLF MD Jun 07, 2016 07:41
[2016-06-07 07:55] LABS: INR 2.8 (0.8-1.4); PROTHROMBIN TIME PATIENT 29.6 SEC (12.2-14.7)
[2016-06-07 09:00] VITALS: BP 127/88
[2016-06-07] MEDS ORDERED: NON-FORMULARY MEDICATION 1 EA EA (Fenofibrate Nanocrystallized (Fenofibrate) 145 MG) PO SCH (09:00)
[2016-06-07] MEDS ORDERED: RT-ALBUTEROL SULF 2.5 MG/3 ML PRE-MIX VIAL IH SCH (09:00)
[2016-06-07] MEDS ORDERED: NON-FORMULARY MEDICATION 1 EA EA (Diltiazem HCl (Diltiazem ER) 120 MG) PO SCH (09:00)
[2016-06-07] MEDS: CALCIUM CARB + VIT D 600 MG (CALCARB + D) TAB PO SCH ×2 (09:25→21:04)
[2016-06-07] MEDS: cefTRIAXone INJECTION 1,000 MG in NORMAL SALINE (BAXTER MINI) 50 ML IV SCH (09:25)
[2016-06-07] MEDS: DILTIAZEM 120 MG (CARDIZEM CD) CAP PO SCH (09:25)
[2016-06-07] MEDS: LORATADINE (CLARITIN) 10 MG TAB PO SCH (09:25)
[2016-06-07] MEDS: NS IV 1000 ML 1,000 ML IV SCH (10:36)
[2016-06-07 12:38] VITALS: BP 131/79
[2016-06-07] MEDS: HYDROcodone/APAP 10 MG/325 MG (LORTAB) TAB PO PRN (13:20)
[2016-06-07] MEDS: RT-ALBUTEROL SULF 2.5 MG/3 ML PRE-MIX VIAL IH SCH ×2 (14:45→21:04)
[2016-06-07 16:00] VITALS: BP 127/66
[2016-06-07] MEDS: warFARin 5 MG (COUMADIN) TAB PO SCH (17:06)
[2016-06-07 20:10] VITALS: BP 115/71
[2016-06-07] MEDS: MONTELUKAST 10 MG (SINGULAIR) TAB PO SCH (21:05)
[2016-06-07] MEDS: FENOFIBRATE 134 MG (LOFIBRA) CAPSULE PO SCH (21:05)
[2016-06-08 00:29] VITALS: BP 124/70
[2016-06-08 04:21] VITALS: BP 130/82
[2016-06-08] MEDS: FUROSEMIDE 40 MG (LASIX) TAB PO SCH (06:03)
[2016-06-08] MEDS: methylPREDNISolone 125 MG (Solu-MEDROL) VIAL IVP SCH (06:03)
[2016-06-08] MEDS: KCL 10 MEQ TAB (MICRO K) PO SCH ×3 (06:03→17:09)
[2016-06-08] MEDS: PANTOPRAZOLE 40 MG (PROTONIX) TAB PO SCH (06:03)
[2016-06-08] MEDS: guaiFENesin/DM (ROBITUSSIN DM) 10 ML UDC PO PRN ×2 (06:07→12:10)
[2016-06-08] MEDS: RT-ALBUTEROL SULF 2.5 MG/3 ML PRE-MIX VIAL IH SCH ×3 (07:02→18:29)
--- NOTE | 2016-06-08 07:54 | Progress Note (SOAP) ---
Subjective Subjective/Events-last exam States breathing effort is improving. Had upset stomach last evening. Objective Exam Vital Signs Date Time Temp Pulse Resp B/P Pulse Ox O2 Delivery O2 Flow Rate FiO2 06/08/16 07:02 92 4.00 06/08/16 04:21 96.9 88 20 130/82 93 Nasal Cannula 4.00 06/08/16 01:00 91 06/08/16 00:29 96.9 82 20 124/70 93 Nasal Cannula 4.00 06/07/16 21:04 92 4.00 06/07/16 21:00 Nasal Cannula 4.00 06/07/16 20:10 97.2 99 20 115/71 93 Nasal Cannula 4.00 06/07/16 19:00 93 06/07/16 16:00 97.4 108 22 127/66 93 Nasal Cannula 4.00 06/07/16 14:45 91 4.00 06/07/16 12:53 101 06/07/16 12:38 96.7 90 16 131/79 93 Nasal Cannula 4.00 06/07/16 11:00 Nasal Cannula 4.00 06/07/16 09:00 Nasal Cannula 4.00 06/07/16 09:00 97.7 115 20 127/88 94 Nasal Cannula 4.00 06/07/16 08:00 Nasal Cannula 4.00 I & O 06/08/16 07:00 Intake Total 2280 ml Output Total 2000 ml Balance 280 ml Capillary Refill : Less Than 3 Seconds General Appearance: No Apparent Distress Respiratory: Rhonci Wheezing (expiratory) Cardiovascular: Regular Rate, Rhythm Results Lab Microbiology 06/06/16 Blood Culture - Preliminary, Resulted No growth 06/06/16 Gram Stain - Final, Resulted 06/06/16 Sputum Culture - Preliminary, Resulted Usual/normal aminah isolated. Assessment/Plan Assessment/Plan Assess & Plan/Chief Complaint 1. COPD exacerbation -Patient will be transferred to [facility] since she has improved and no longer requires intensive care unit -Patient to be changed from Solu-Medrol 125 mg every 6 to 80 mg every 8. -Taper down on the amount of nasal cannula oxygen as she improves. 06/08 still requiring 4l NC to maintain low 90 percentiles -continue with Solumedrol 80mg q 8hrs Diagnosis/Problems: Clinical Quality Measures DVT/VTE Risk/Contraindication: Risk Factor Score Per Nursin RFS Level Per Nursing on Admit: 4+=Very High LEAH WOLF MD Jun 08, 2016 07:54
[2016-06-08] MEDS ORDERED: PROMETHAZINE 25 MG (PHENERGAN) TAB PO PRN (08:00)
[2016-06-08] MEDS: DILTIAZEM 120 MG (CARDIZEM CD) CAP PO SCH (08:07)
[2016-06-08] MEDS: NS IV 1000 ML 1,000 ML IV SCH ×2 (08:07→09:08)
[2016-06-08] MEDS: CALCIUM CARB + VIT D 600 MG (CALCARB + D) TAB PO SCH ×2 (08:07→21:12)
[2016-06-08] MEDS: LORATADINE (CLARITIN) 10 MG TAB PO SCH (08:07)
[2016-06-08] MEDS: cefTRIAXone INJECTION 1,000 MG in NORMAL SALINE (BAXTER MINI) 50 ML IV SCH (08:07)
[2016-06-08 08:30] VITALS: BP 127/74
[2016-06-08 12:13] VITALS: BP 139/79
[2016-06-08] MEDS: methylPREDNISolone 40 MG/ML (Solu-MEDROL) VIAL IV SCH ×2 (14:27→21:12)
[2016-06-08 16:40] VITALS: BP 115/65
[2016-06-08] MEDS: warFARin 5 MG (COUMADIN) TAB PO SCH (17:09)
[2016-06-08 20:52] VITALS: BP 127/76
[2016-06-08] MEDS: FENOFIBRATE 134 MG (LOFIBRA) CAPSULE PO SCH (21:12)
[2016-06-08] MEDS: MONTELUKAST 10 MG (SINGULAIR) TAB PO SCH (21:12)
[2016-06-09] VITALS: BP 150/71
[2016-06-09 04:00] VITALS: BP 124/81
[2016-06-09] MEDS: PANTOPRAZOLE 40 MG (PROTONIX) TAB PO SCH (05:45)
[2016-06-09] MEDS: FUROSEMIDE 40 MG (LASIX) TAB PO SCH (05:45)
[2016-06-09] MEDS: KCL 10 MEQ TAB (MICRO K) PO SCH ×3 (05:45→17:21)
[2016-06-09] MEDS: methylPREDNISolone 40 MG/ML (Solu-MEDROL) VIAL IV SCH ×2 (05:45→19:47)
[2016-06-09] MEDS: RT-ALBUTEROL SULF 2.5 MG/3 ML PRE-MIX VIAL IH SCH ×3 (06:49→19:30)
[2016-06-09 08:00] VITALS: BP 134/75
[2016-06-09] MEDS: cefTRIAXone INJECTION 1,000 MG in NORMAL SALINE (BAXTER MINI) 50 ML IV SCH (08:42)
[2016-06-09] MEDS: LORATADINE (CLARITIN) 10 MG TAB PO SCH (08:43)
[2016-06-09] MEDS: CALCIUM CARB + VIT D 600 MG (CALCARB + D) TAB PO SCH ×2 (08:43→19:47)
[2016-06-09] MEDS: DILTIAZEM 120 MG (CARDIZEM CD) CAP PO SCH (08:43)
[2016-06-09] MEDS: guaiFENesin/DM (ROBITUSSIN DM) 10 ML UDC PO PRN ×2 (08:43→12:20)
--- NOTE | 2016-06-09 12:39 | Progress Note (SOAP) ---
Subjective Subjective/Events-last exam Feeling better, moving air better but wheezing. On 4L. Objective Exam Last Set of Vital Signs Vital Signs Date Time Temp Pulse Resp B/P Pulse Ox O2 Delivery O2 Flow Rate FiO2 06/09/16 09:00 Nasal Cannula 4.00 06/09/16 08:00 98.0 112 20 134/75 92 06/06/16 08:00 40 Capillary Refill : Less Than 3 Seconds I&O Intake and Output 06/09/16 00:00 Intake Total 4010 ml Output Total 2900 ml Balance 1110 ml Intake Oral 3360 ml IV Total 650 ml Output Urine Total 2900 ml General: Alert, Oriented X3, Cooperative Lungs: Other (wheezing) Psych/Mental Status: Mental Status NL, Mood NL Results/Procedures Lab Microbiology 06/06/16 Blood Culture - Preliminary, Resulted No growth 06/06/16 Gram Stain - Final, Complete 06/06/16 Sputum Culture - Final, Complete Usual/normal aminah isolated. Assessment/Plan Assessment/Plan Plan 1. COPD exacerbation -Patient will be transferred to [facility] since she has improved and no longer requires intensive care unit -Patient to be changed from Solu-Medrol 125 mg every 6 to 80 mg every 8. -Taper down on the amount of nasal cannula oxygen as she improves. 06/08 still requiring 4l NC to maintain low 90 percentiles -continue with Solumedrol 80mg q 8hrs 06/09 - on 4L (2-3L at home) - continue to taper steroids Diagnosis/Problems: Clinical Quality Measures DVT/VTE Risk/Contraindication: Risk Factor Score Per Nursin RFS Level Per Nursing on Admit: 4+=Very High MARV ALMANZA DO Jun 09, 2016 12:39
[2016-06-09] MEDS: HYOSCYAMINE 0.125 MG (LEVSIN) TAB PO PRN ×2 (14:13→19:47)
[2016-06-09 16:44] VITALS: BP 128/72
[2016-06-09] MEDS: warFARin 5 MG (COUMADIN) TAB PO SCH (17:21)
[2016-06-09] MEDS: FENOFIBRATE 134 MG (LOFIBRA) CAPSULE PO SCH (19:47)
[2016-06-09] MEDS: MONTELUKAST 10 MG (SINGULAIR) TAB PO SCH (19:48)
[2016-06-09 20:18] VITALS: BP 133/86
[2016-06-10] VITALS: BP 132/76
[2016-06-10 04:00] VITALS: BP 130/83
[2016-06-10] MEDS: KCL 10 MEQ TAB (MICRO K) PO SCH ×3 (06:14→16:52)
[2016-06-10] MEDS: FUROSEMIDE 40 MG (LASIX) TAB PO SCH (06:14)
[2016-06-10] MEDS: PANTOPRAZOLE 40 MG (PROTONIX) TAB PO SCH (06:14)
[2016-06-10] MEDS: RT-ALBUTEROL SULF 2.5 MG/3 ML PRE-MIX VIAL IH SCH ×3 (07:45→20:01)
[2016-06-10 08:00] VITALS: BP 131/79
[2016-06-10] MEDS: LORATADINE (CLARITIN) 10 MG TAB PO SCH (08:50)
[2016-06-10] MEDS: cefTRIAXone INJECTION 1,000 MG in NORMAL SALINE (BAXTER MINI) 50 ML IV SCH (08:50)
[2016-06-10] MEDS: methylPREDNISolone 40 MG/ML (Solu-MEDROL) VIAL IV SCH (08:50)
[2016-06-10] MEDS: CALCIUM CARB + VIT D 600 MG (CALCARB + D) TAB PO SCH ×2 (08:51→19:56)
[2016-06-10] MEDS: DILTIAZEM 120 MG (CARDIZEM CD) CAP PO SCH (08:51)
[2016-06-10] MEDS: HYOSCYAMINE 0.125 MG (LEVSIN) TAB PO PRN ×2 (08:53→19:56)
[2016-06-10] MEDS: NS IV 1000 ML 1,000 ML IV SCH (08:58)
--- NOTE | 2016-06-10 10:52 | Progress Note (SOAP) ---
Subjective Subjective/Events-last exam Feeling improved. Date seen by provider: Jun 10, 2016 Time seen by provider: 10:50 Objective Exam Last Set of Vital Signs Vital Signs Date Time Temp Pulse Resp B/P Pulse Ox O2 Delivery O2 Flow Rate FiO2 06/10/16 08:50 Nasal Cannula 4.00 06/10/16 08:00 98.7 93 20 131/79 93 06/06/16 08:00 40 Capillary Refill : Less Than 3 Seconds I&O Intake and Output 06/09/16 23:59 Intake Total 4010 ml Output Total 3900 ml Balance 110 ml Intake Oral 3960 ml IV Total 50 ml Output Urine Total 3900 ml # Bowel Movements 2 General: Alert, Oriented X3, Cooperative Lungs: Other (exp wheezes) Heart: Regular Rate Psych/Mental Status: Mood NL Results/Procedures Lab Microbiology 06/06/16 Blood Culture - Preliminary, Resulted No growth 06/06/16 Gram Stain - Final, Complete 06/06/16 Sputum Culture - Final, Complete Usual/normal aminah isolated. Assessment/Plan Assessment/Plan Plan 1. COPD exacerbation -Patient will be transferred to [facility] since she has improved and no longer requires intensive care unit -Patient to be changed from Solu-Medrol 125 mg every 6 to 80 mg every 8. -Taper down on the amount of nasal cannula oxygen as she improves. 06/08 still requiring 4l NC to maintain low 90 percentiles -continue with Solumedrol 80mg q 8hrs 06/09 - on 4L (2-3L at home) - continue to taper steroids 06/10 - work on tapering oxygen to home requirements; change steroids to po Disp: may be ready for discharged tomorrow Diagnosis/Problems: Clinical Quality Measures DVT/VTE Risk/Contraindication: Risk Factor Score Per Nursin RFS Level Per Nursing on Admit: 4+=Very High MARV ALMANZA DO Jun 10, 2016 10:52
[2016-06-10 16:08] VITALS: BP 100/68
[2016-06-10] MEDS: predniSONE 20 MG TAB PO SCH (16:52)
[2016-06-10] MEDS: warFARin 5 MG (COUMADIN) TAB PO SCH (16:52)
[2016-06-10] MEDS: FENOFIBRATE 134 MG (LOFIBRA) CAPSULE PO SCH (19:56)
[2016-06-10] MEDS: MONTELUKAST 10 MG (SINGULAIR) TAB PO SCH (19:56)
[2016-06-10 23:36] VITALS: BP 126/77
[2016-06-11] MEDS: predniSONE 20 MG TAB PO SCH (05:52)
[2016-06-11] MEDS: PANTOPRAZOLE 40 MG (PROTONIX) TAB PO SCH (05:52)
[2016-06-11] MEDS: FUROSEMIDE 40 MG (LASIX) TAB PO SCH (05:52)
[2016-06-11] MEDS: KCL 10 MEQ TAB (MICRO K) PO SCH ×2 (05:52→12:13)
[2016-06-11] MEDS ORDERED: cefTRIAXone 1 GM (ROCEPHIN) VIAL ONE (07:26)
[2016-06-11] MEDS ORDERED: NORMAL SALINE (BAXTER MINI) 50 ML IV ONE (07:26)
--- NOTE | 2016-06-11 07:37 | Discharge Summary ---
Diagnosis/Chief Complaint Date of Admission Jun 06, 2016 at 05:44 Date of Discharge Jun 11, 2016 Admission Diagnosis Admission Diagnosis 1. COPD exacerbation Discharge Diagnosis 1. COPD exacerbation Reason Hospital Visit 55-year-old female presented to [facility] emergency department via [facility]. Patient had apparently significant dyspnea this a.m. and despite increasing oxygen at home she did not improve. Her COPD exacerbation had initially started over the weekend and was seen at the emergency department where she was placed on prednisone as well as antibiotic. She apparently started the prednisone but not the antibiotic. There is been no reports of fever. She does admit to a cough. She is with known asthma and frequent admissions for COPD exacerbation. She has been on multiple chronic steroid inhalers and continues to take these. Discharge Summary Hospital Course Hospital Course She is 55-year-old female admitted to ICU on June 06, 2016 after having an acute exacerbation of COPD. Patient was placed on BiPAP and this was utilized to keep her saturations in the 90 percentile range. She was also started on IV Solu-Medrol 125 mg every 6 hours as. Patient was maintained on the BiPAP through the day of June 06 eventually was weaned off to 4 L of nasal cannula oxygen later in the day. She was also started on IV Rocephin 1 g every 24 hours since she does have a history for bronchitis and her cough is somewhat productive. She was maintained on IV Solu-Medrol 125 mg every 6 hours up until the morning of June 07, 2016. At that time she was felt stable enough to be transferred to [facility]. She was continued for 2 additional days and IV Solu-Medrol eventually tapering down to 80 mg every 8 hours. She continued to utilize 4 L of oxygen by nasal cannula up and tell June 09 and by June 10 was decreased to 3 L. At this time she was switched to prednisone and the IV Solu-Medrol was discontinued. She remained afebrile throughout the course of her care. In the morning of June 11, 2016 patient was felt ready for dismissal and all questions were answered. She'll be maintained on 3 L nasal cannula in place on a prednisone tapering as well as by mouth antibiotics. Procedures None. Discharge Physical Examination Allergies: Coded Allergies: aspirin (Verified Allergy, Severe, ANAPHYLAXIS, 07/30/11) ibuprofen (Verified Allergy, Severe, ANAPHYLAXIS, 07/30/11) ketorolac (Verified Allergy, Severe, ANAPHYLAXIS, 06/06/16) tetanus and diphtheria toxoids (Unverified Allergy, Severe, ANAPHYLAXIS, ) aloe (Verified Allergy, Mild, RASH, 07/30/11) latex (Verified Allergy, Mild, RASH, 06/06/16) OCCASIONALLY IS IRRITATING SKIN iodine (Verified Adverse Reaction, Unknown, 06/06/16) Patient states she got dizzy, diaphoretic and saw stars. Uncoded Allergies: ALOE VERA (Allergy, Unknown, 12/23/05) SILK SUTURES (Adverse Reaction, Unknown, BODY REJECTS SUTURES, 10/07/13) Vitals & I&Os Vital Signs Date Time Temp Pulse Resp B/P Pulse Ox O2 Delivery O2 Flow Rate FiO2 06/10/16 23:36 96.7 79 16 126/77 93 Nasal Cannula 3.00 06/06/16 08:00 40 General Appearance: No Acute Distress HEENT: Mucous Memb Moist/[place] Respiratory: Clear to Auscultation (other than mild wheezing) Cardiovascular: Regular Rate Abdominal: Normal Bowel Sounds, Soft Skin: No Rashes Discharge Home Medications Reviewed and agree with Discharge Medication list on patient's Discharge Instruction sheet Instructions to Patient/Family Please see electonic discharge instructions given to patient. Clinical Quality Measures DVT/VTE Risk/Contraindication: Risk Factor Score Per Nursin RFS Level Per Nursing on Admit: 4+=Very High LEAH WOLF MD Jun 11, 2016 07:37
[2016-06-11] MEDS ORDERED: CEFP500T4 PO (07:46)
[2016-06-11] MEDS ORDERED: PRD20T PO (07:46)
--- NOTE | 2016-06-11 07:48 | Discharge Inst-Simple/Standard ---
Discharge Inst-Standard Discharge Medications New, Converted or Re-Newed RX: Transmitted to Pharmacy Patient Instructions/Follow Up Plan of Care/Instructions/FU: Follow-up with Dr. Wolf within 2 or 3 days Activity as Tolerated: Yes Discharge Diet: Regular Diet, Avoid Fatty Foods Return to The Hospital For: Fever greater than 100.5, difficulty breathing Other Inst to Patient Taper the prednisone 3 daily for 3 days then 2 daily for 3 days then 1 daily for 3 days. LEAH WOLF MD Jun 11, 2016 07:48
[2016-06-11] MEDS: LORATADINE (CLARITIN) 10 MG TAB PO SCH (07:57)
[2016-06-11] MEDS: CALCIUM CARB + VIT D 600 MG (CALCARB + D) TAB PO SCH (07:57)
[2016-06-11] MEDS: DILTIAZEM 120 MG (CARDIZEM CD) CAP PO SCH (07:57)
[2016-06-11] MEDS: cefTRIAXone INJECTION 1,000 MG in NORMAL SALINE (BAXTER MINI) 50 ML IV SCH (07:57)
[2016-06-11 08:00] VITALS: BP 121/85
[2016-06-11] MEDS: NS IV 1000 ML 1,000 ML IV SCH (09:00)
[2016-06-11] MEDS: RT-ALBUTEROL SULF 2.5 MG/3 ML PRE-MIX VIAL IH SCH (09:47)
[2016-06-11 13:21] VITALS: BP 121/85
== END 2016-06-11 10:26 | disposition home or self-care (01) | DRG 192 ==
LOC: EDUNIT# 03:01 → ER 03:02 → ICU 05:44 → OBSVTOIN 05:44 → 4TH 06-07 10:37
PROVIDERS: ADMIT Family Medicine; ATTEND Family Medicine
DX: J44.1 Chronic obstructive pulmonary disease with (acute) exacerbation (principal); Z87.891 Personal history of nicotine dependence; Z86.718 Personal history of other venous thrombosis and embolism; F41.9 Anxiety disorder, unspecified; H91.90 Unspecified hearing loss, unspecified ear; K21.9 Gastro-esophageal reflux disease without esophagitis; K57.90 Diverticulosis of intestine, part unspecified, without perforation or abscess without bleeding; E78.00 Pure hypercholesterolemia, unspecified; I10 Essential (primary) hypertension; I73.9 Peripheral vascular disease, unspecified
CPT/HCPCS: 36415; 71010; 80048; 80053; 82805; 83605; 85025; 85610; 85730; 86141; 87040; 87070; 87205; 94640; 94660; 94760; 96374; 96375

== ENCOUNTER 2016-07-06 15:31 | Emergency (ER) | payer MEDICAID ==
[~2016-07-06] VITALS: Ht 165.1 cm; Wt 105.2 kg
[~2016-07-06 15:31] MED LIST changes: +CALC-694 PO; +HYOS0.1218 PO; +POTA10TA10 PO; +bumex
[2016-07-06] MEDS ORDERED: NS IV 1000 ML 1,000 ML IV ONE (16:42)
[2016-07-06 17:04] LABS: BASOPHILS % (AUTO) 0 % (0-10); EOSINOPHILS # (AUTO) 0.2 10^3/uL (0.0-0.3); EOSINOPHILS % (AUTO) 3 % (0-10); LYMPHOCYTES # (AUTO) 2.3 X 10^3 (1.0-4.0); LYMPHOCYTES % (AUTO) 30 % (12-44); MEAN CORPUSCULAR HEMOGLOBIN 29 PG (25-34); MEAN CORPUSCULAR HGB CONC 33 G/DL (32-36); MEAN CORPUSCULAR VOLUME 89 FL (80-99); MEAN PLATELET VOLUME 8.8 FL (7.4-10.4); MONOCYTES # (AUTO) 0.8 X 10^3 (0.0-1.0); MONOCYTES % (AUTO) 10 % (0-12); NEUTROPHILS # (AUTO) 4.2 X 10^3 (1.8-7.8); NEUTROPHILS % (AUTO) 57 % (42-75); PLATELET COUNT 375 10^3/uL (130-400); RED BLOOD COUNT 4.37 10^6/uL (4.35-5.85); RED CELL DISTRIBUTION WIDTH 15.5 % (10.0-14.5); WHITE BLOOD COUNT 7.5 10^3/uL (4.3-11.0)
[2016-07-06 17:15] LABS: INR 2.2 (0.8-1.4); PROTHROMBIN TIME PATIENT 24.6 SEC (12.2-14.7)
[2016-07-06 17:29] LABS: ALANINE AMINOTRANSFERASE 23 U/L (0-55); ALBUMIN 3.6 G/DL (3.2-4.5); ANION GAP 9 MMOL/L (5-14); ASPARTATE AMINO TRANSFERASE 18 U/L (5-34); BILIRUBIN,TOTAL 0.5 MG/DL (0.1-1.0); BLOOD UREA NITROGEN 7 MG/DL (7-18); BUN/CREATININE RATIO 11; CALCIUM 8.9 MG/DL (8.5-10.1); CARBON DIOXIDE 23 MMOL/L (21-32); CHLORIDE 107 MMOL/L (98-107); CREATININE SERUM 0.66 MG/DL (0.60-1.30); GFR ESTIMATED > 60; GLUCOSE 92 MG/DL (70-105); POTASSIUM 3.8 MMOL/L (3.6-5.0); SODIUM 139 MMOL/L (135-145); TOTAL PROTEIN 6.9 G/DL (6.4-8.2)
[2016-07-06 17:48] LABS: BILIRUBIN,URINE NEGATIVE (NEGATIVE); KETONES,URINE NEGATIVE (NEGATIVE); LEUKOCYTE ESTERASE ,URINE 2+ (NEGATIVE); NITRITE,URINE NEGATIVE (NEGATIVE); PH,URINE 7 (5-9); PROTEIN,URINE NEGATIVE (NEGATIVE); UROBILINOGEN,URINE 1 MG/DL (NORMAL)
--- NOTE | 2016-07-06 17:48 | Diagnostic Imaging Report ---
INDICATION: Leg swelling for two weeks. Low-grade fevers xcv-[id number]-i-half weeks. No chest complaints. EXAMINATION: Two-view chest, 07/06/2016. FINDINGS: Two views of the chest demonstrate a metallic device overlying the left chest, nonspecific, correlate clinically. The lungs are hyperinflated with bibasilar areas of atelectasis. Mild infiltrate is felt to be less likely but not excluded given history of fever. Heart is stable. Pulmonary vasculature is unremarkable. There is linear atelectasis or scar in the apices. No effusions. IMPRESSION: 1. Findings of likely atelectasis versus early infiltrate at both lung bases. Followup recommended to assure resolution. 2. Findings of COPD with other incidental findings described above. Dictated by: Dictated on workstation # [id number]
[2016-07-06 17:58] LABS: SQUAMOUS EPITHELIAL CELL,UR 0-2 /HPF
--- NOTE | 2016-07-06 18:59 | ED General ---
General Chief Complaint: Lower Extremity Stated Complaint: L LEG PAIN/L ABD PAIN Nursing Triage Note: PT CO OF L L EXT SWELLING, PT HAS HAD CELLULITIS AND HAS TAKEN LAST ANTIBIOTIC, PT CO OF ALL OVER BODY PAIN, AND PAIN IN L SIDE. PT ALSO HAS TEMP 100.7 Nursing Sepsis Screen: No Definite Risk Source of Information: Patient Exam Limitations: No Limitations History of Present Illness Time Seen by Provider: 16:36 Initial Comments This 55-year-old woman presents to the emergency room with complaints of mild fever at night the last few nights and significant bilateral leg pain. She was recently treated for left lower extremity cellulitis. That seems to have resolved but she now has pain and edema that is equal bilaterally. She is tachycardic and febrile on assessment. She is on Coumadin therapy and was recently hypertherapeutic with elevated INR. She held Coumadin for one day at the direction of her doctor. Allergies and Home Medications Allergies Coded Allergies: aspirin (Verified Allergy, Severe, ANAPHYLAXIS, 07/30/11) ibuprofen (Verified Allergy, Severe, ANAPHYLAXIS, 07/30/11) ketorolac (Verified Allergy, Severe, ANAPHYLAXIS, 06/06/16) tetanus and diphtheria toxoids (Unverified Allergy, Severe, ANAPHYLAXIS, ) aloe (Verified Allergy, Mild, RASH, 07/30/11) latex (Verified Allergy, Mild, RASH, 06/06/16) OCCASIONALLY IS IRRITATING SKIN iodine (Verified Adverse Reaction, Unknown, 06/06/16) Patient states she got dizzy, diaphoretic and saw stars. Uncoded Allergies: ALOE VERA (Allergy, Unknown, 12/23/05) SILK SUTURES (Adverse Reaction, Unknown, BODY REJECTS SUTURES, 10/07/13) Home Medications Albuterol Sulfate 2.5 Mg/3 Ml Vial.neb 2.5 MG IH TID (Reported) USES THIS ALONG WITH IPRATROPIUM SOLUTION Albuterol Sulfate 8.5 Gm Hfa.aer.ad 2 PUFF IH EVERY 4-6 HOURS PRN PRN WHEEZING ( Reported) Alprazolam 1 Mg Tablet 1 MG PO Q8H PRN PRN ANXIETY (Reported) Calcium Carbonate/Vitamin D3 1 Each Tablet 1 TAB PO BID (Reported) Diltiazem HCl 120 Mg Capsule.er 120 MG PO DAILY (Reported) Doxycycline Hyclate 100 Mg Tablet. #20 100 MG PO BID Prescribed by: ALVA LAMAR on 07/06/16 1900 Fenofibrate Nanocrystallized 145 Mg Tablet 145 MG PO DAILY (Reported) Furosemide 80 Mg Tablet 40-80 MG PO DAILY (Reported) TAKES 1/2 TO 1 OF A (80 MG) TABLET / LAST FILLED 03/27/16 #30 Hydrocodone/Acetaminophen 1 Each Tablet 1 TAB PO EVERY 6-8 HOURS PRN PRN PAIN ( Reported) Hyoscyamine Sulfate 0.125 Mg Tab.subl 0.125 MG PO Q6H PRN PRN ABDOMINAL PAIN ( Reported) Ipratropium [place] 0.2 Mg/1 Ml Solution 1 VIAL NEB TID (Reported) USES ALONG WITH ALBUTEROL SOLUTION Loratadine 10 Mg Tablet 10 MG PO DAILY (Reported) Montelukast Sodium 10 Mg Tablet 10 MG PO HS (Reported) Pantoprazole Sodium 40 Mg Tablet.dr 40 MG PO DAILY (Reported) Potassium Chloride 10 Meq Tablet.er 20 MEQ PO TID (Reported) TAKES 2 (10 MEQ) TABLETS Promethazine HCl 25 Mg Tablet 25 MG PO Q6H PRN PRN NAUSEA/VOMITING (Reported) Warfarin Sodium 5 Mg Tablet 5 MG PO DAILY @ 1800 (Reported) Constitutional: see HPI EENTM: see HPI Respiratory: no symptoms reported Cardiovascular: no symptoms reported Gastrointestinal: no symptoms reported 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: no symptoms reported Musculoskeletal: no symptoms reported Skin: see HPI Psychiatric/Neurological: No Symptoms Reported Hematologic/Lymphatic: No Symptoms Reported Past [id number]-[id number]-[id number] Hx Patient Social History Alcohol Use: Denies Use Recreational Drug Use: No (15 yrs ago---IV drug user including Cocaine-CLEAN SINCE 1994) Smoking Status: Former Smoker Type Used: Cigarettes Former Smoker/When Quit: May 13, 2002 Recent Foreign Travel: No Contact w/Someone Who Travel: No Recent Infectious Disease Expo: No Recent Hopitalizations: No Immunizations Up To Date Tetanus Booster (TDap): Less than 5yrs PED Vaccines UTD: No Date of Pneumonia Vaccine: Sep 05, 2010 Date of Influenza Vaccine: Mar 11, 2012 Seasonal Allergies Seasonal Allergies: Yes Surgeries HX Surgeries: Yes (shoulder scope, knee scope, dnc, trop ease filter, ) Surgeries: Abdominal, Adenoidectomy, Section, Gallbladder, Hysterectomy, Orthopedic, Tonsillectomy, Vascular Surgery Respiratory Hx Respiratory Disorders: Yes (O2 AT NIGHT 2-3L) Respiratory Disorders: Asthma, Pneumonia, Chronic Bronchitis, Pulmonary Embolism, Sleep Apnea, COPD, Emphysema Cardiovascular Hx Cardiac Disorders: Yes (VENA CAVA FILTER 2010; VARICOSE VEINS WITH VENOUS STASIS ULCERS) Cardiac Disorders: Chronic Edema/Swelling, Deep Vein Thrombosis, High Cholesterol, Hypertension, Peripheral Vascular Neurological Hx Neurological Disorders: No 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 System Hx 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 Disorders: No Sexually Transmitted Disease: No HIV/AIDS: No 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 Hx 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 Disorders: Yes 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 Disorders: Bladder Infection Gastrointestinal Hx Gastrointestinal Disorders: Yes Gastrointestinal Disorders: Colitis, Gastroesophageal Reflux, Chronic Constipation, Diverticulosis, Polyps, Hiatal Hernia, Irritable Bowel Musculoskeletal Hx Musculoskeletal Disorders: Yes Musculoskeletal Disorders: Arthritis Endocrine Hx Endocrine Disorders: Yes (PRE-DIABETIC ) HEENT HX ENT Disorders: Yes (GLASSES) HEENT Disorders: Tinnitis Loss of Vision: Bilateral Hearing Impairment: Hard of Hearing Cancer Hx Cancer: No Psychosocial Hx Psychiatric Problems: Yes Behavioral Health Disorders: Anxiety Integumentary HX Skin/Integumentary Disorder: Yes (CHRONIC VENOUS STASIS CHANGES/VENOUS STASIS ULCERS) Skin/Integumentary Disorders: Recent Skin Changes Blood Transfusions Hx Blood Disorders: Yes (HX OF DVT'S/ P.E.'S; PROBABLE PROTEIN C DEFICIENCY) Adverse Reaction to a Blood Tr: No (HAS HAD BLOOD WITH NO PROBLEMS) Family Medical History Significant Family History: Cancer, COPD, Vascular Disease Family Medial History: Alcoholism Alcoholism Arthritis Asthma Cancer Cancer of colon Cancer of mouth Cardiovascular disease Cataract Cataracts Chest pain Colon cancer Completed stroke Diabetes mellitus Family history: Allergy Family history: Arthritis Family history: Asthma Family history: Cardiovascular disease Family history: Coronary thrombosis Family history: Diabetes mellitus Family history: Gastrointestinal disease Family history: Hypertension Family history: Thyroid disorder Headache Hearing loss Heart disease History of - anemia History of - respiratory disease Hypercholesterolemia Hypercholesterolemia Infertile Malignant neoplasm of lung Myocardial infarction Myocardial infarction Psychotic disorder Respiratory disorder Stroke No Family History of: AIDS Abdominal aortic aneurysm Abdominal aortic aneurysm [place]'s disease Fernando's disease Alzheimer's disease Aphasia Aphasia Congenital disease Congenital heart disease Congenital heart disease Congestive heart failure Coronary thrombosis Cystic fibrosis Cystic fibrosis Deafness or hearing loss Dementia Dementia Drug abuse Dysphagia Dysphasia Family history: Alzheimer's disease Family history: Breast disease Family history: Glaucoma Family history: Osteoporosis Fibrocystic disease of breast Gastroenteritis Glaucoma Headache disorder Hereditary disease History of - disorder History of drug abuse Human immunodeficiency virus (HIV) seropositivity Infertility Kidney disease Kidney disease Neoplasm Not obtainable due to adoption Osteoporosis Parkinson's disease Parkinson's disease Prostate cancer Psychosocial problem Seizure disorder Seizure disorder Severe allergy Thyroid disease Tuberculosis Tuberculosis Visual disorder Visual impairment Physical Exam Vital Signs Vital Sign - Last 12Hours 07/06/16 15:45 Temp 100.7 Pulse 116 Resp 18 B/P 132/83 Pulse Ox 94 O2 Delivery Room Air Capillary Refill : Less Than 3 Seconds General Appearance: No Apparent Distress WD/WN HEENT: PERRL/EOMI Normal ENT Inspection Pharynx Normal Neck: Normal Inspection Respiratory: Lungs Clear Normal Breath Sounds No Accessory Muscle Use No Respiratory Distress Cardiovascular: No Edema No Murmur Tachycardia Gastrointestinal: Normal Bowel Sounds Non Tender Soft Extremity: Other (mild to moderate pitting lower extremity edema equal bilaterally. 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 Norm as Tested Skin: Normal Color Warm/Dry Progress/Results/Core Measures Results/Orders Lab Results Laboratory Tests Test 07/06/16 16:54 07/06/16 17:40 Range/Units Activated Partial Thromboplast Time 36 H 24-35 SEC Alanine Aminotransferase (ALT/SGPT) 23 0-55 U/L Albumin 3.6 3.2-4.5 G/DL Alkaline Phosphatase 58 40-136 U/L Anion Gap 9 5-14 MMOL/L Aspartate Amino Transf (AST/SGOT) 18 5-34 U/L BUN/Creatinine Ratio 11 Basophils # (Auto) 0.0 0.0-0.1 10^3/uL Basophils (%) (Auto) 0 0-10 % Blood Urea Nitrogen 7 7-18 MG/DL Calcium Level 8.9 8.5-10.1 MG/DL Carbon Dioxide Level 23 21-32 MMOL/L Chloride Level 107 98-107 MMOL/L Creatinine 0.66 0.60-1.30 MG/DL Eosinophils # (Auto) 0.2 0.0-0.3 10^3/uL Eosinophils (%) (Auto) 3 0-10 % Estimat Glomerular Filtration Rate > 60 Glucose Level 92 70-105 MG/DL Hematocrit 39 35-52 % Hemoglobin 12.7 11.5-16.0 G/DL INR Comment 2.2 H 0.8-1.4 Lactic Acid Level 0.9 0.5-2.0 MMOL/L Lymphocytes # (Auto) 2.3 1.0-4.0 X 10^3 Lymphocytes (%) (Auto) 30 12-44 % Mean Corpuscular Hemoglobin 29 25-34 PG Mean Corpuscular Hemoglobin Concent 33 32-36 G/DL Mean Corpuscular Volume 89 80-99 FL Mean Platelet Volume 8.8 7.4-10.4 FL Monocytes # (Auto) 0.8 0.0-1.0 X 10^3 Monocytes (%) (Auto) 10 0-12 % Neutrophils # (Auto) 4.2 1.8-7.8 X 10^3 Neutrophils (%) (Auto) 57 42-75 % Platelet Count 375 130-400 10^3/uL Potassium Level 3.8 3.6-5.0 MMOL/L Prothrombin Time 24.6 H 12.2-14.7 SEC Red Blood Count 4.37 4.35-5.85 10^6/uL Red Cell Distribution Width 15.5 H 10.0-14.5 % Sodium Level 139 135-145 MMOL/L Total Bilirubin 0.5 0.1-1.0 MG/DL Total Protein 6.9 6.4-8.2 G/DL White Blood Count 7.5 4.3-11.0 10^3/uL Urine Bacteria TRACE /HPF Urine Bilirubin NEGATIVE NEGATIVE Urine Casts NONE /LPF Urine Clarity CLEAR Urine Color YELLOW Urine Crystals NONE /LPF Urine Culture Indicated NO Urine Glucose (UA) NEGATIVE NEGATIVE Urine Ketones NEGATIVE NEGATIVE Urine Leukocyte Esterase 2+ H NEGATIVE Urine Mucus NEGATIVE /LPF Urine Nitrite NEGATIVE NEGATIVE Urine Protein NEGATIVE NEGATIVE Urine RBC NONE /HPF Urine RBC (Auto) 1+ H NEGATIVE Urine Specific [place] 1.010 L 1.016-1.022 Urine Squamous Epithelial Cells 0-2 /HPF Urine Urobilinogen 1 NORMAL MG/DL Urine WBC 2-5 /HPF Urine pH 7 5-9 Micro Results Microbiology 07/06/16 Blood Culture - Preliminary, Resulted No growth 07/06/16 Blood Culture - Preliminary, Resulted No growth 07/06/16 Influenza Types A,B Antigen (JAIDA) - Final, Complete My Orders Orders-ALVA BENJAMIN MD Cbc With Automated Diff (07/06/16 16:42) Comprehensive Metabolic Panel (07/06/16 16:42) Lactic Acid Analyzer (07/06/16 16:42) Blood Culture (07/06/16 16:42) Ua Culture If Indicated (07/06/16 16:42) Protime With Inr (07/06/16 16:42) Partial Thromboplastin Time (07/06/16 16:42) O2 (07/06/16 16:42) Saline Lock/Iv-Start (07/06/16 16:42) Vital Signs Adult Sepsis Patie Q1HR (07/06/16 16:42) Remove Rings In Anticipation O (07/06/16 16:42) Influenza A And B Antigens (07/06/16 16:42) Chest Pa/Lat (2 View) (07/06/16 16:42) Ns Iv 1000 Ml (Sodium Chloride 0.9%) (07/06/16 16:42) Acetaminophen Tablet (Tylenol Tablet) (07/06/16 19:00) Doxycycline Hyclate Tablet (Vibramycin T (07/06/16 19:00) Medications Given in ED Vital Signs/I&O Blood Pressure Mean: 99 Progress Note : Progress Note There was questionable infiltrate on the chest x-ray. However, patient had no respiratory symptoms and white count was normal. Doxycycline was prescribed as a precaution for both the pulmonary infiltrate and the potential for continued cellulitis of the lower extremities. Tylenol and fluids were given. Diagnostic Imaging Diagonstic Imaging: Xray Plain Films/CT/US/NM/MRI: chest Comments NAME: SUJEY FELIZ [facility] REC#: [id number] PT STATUS: REG ER : 1960 PHYSICIAN: ALVA BENJAMIN MD ADMIT DATE: 07/06/16/ER Draft Date of Exam:07/06/16 CHEST PA/LAT (2 VIEW) INDICATION: Leg swelling for two weeks. Low-grade fevers ijc-[id number]-l-half weeks. No chest complaints. EXAMINATION: Two-view chest, 07/06/2016. FINDINGS: Two views of the chest demonstrate a metallic device overlying the left chest, nonspecific, correlate clinically. The lungs are hyperinflated with bibasilar areas of atelectasis. Mild infiltrate is felt to be less likely but not excluded given history of fever. Heart is stable. Pulmonary vasculature is unremarkable. There is linear atelectasis or scar in the apices. No effusions. IMPRESSION: 1. Findings of likely atelectasis versus early infiltrate at both lung bases. Followup recommended to assure resolution. 2. Findings of COPD with other incidental findings described above. Dictated on workstation # [id number] Dict: 07/06/161737 Trans: 07/06/161747 [facility] [id number] Interpreted by: ROSA HERNANDEZ MD Departure Impression Impression: Primary Impression: Fever Qualified Code: R50.9 - Fever, unspecified Additional Impressions: Bilateral leg pain Bilateral leg edema Disposition: HOME, SELF-CARE Condition: Improved Departure-Patient Inst. Decision time for Depature: 18:50 Referrals: LEAH WOLF MD (PCP/Family) Primary Care Physician Patient Instructions: Fever, Adult (DC) Add. Discharge Instructions: Take Tylenol up to 1000 g every 6 hours as needed for fever and pain. Hopefully controlling your fever will reduce your leg pain. Elevate your legs to the level of your heart is much as possible. Complete your antibiotic as prescribed. Return to emergency room if symptoms worsen. Follow up with your primary care provider early next week. All discharge instructions reviewed with patient and/or family. Voiced understanding. Scripts Doxycycline Hyclate 100 Mg Tablet.dr100 Mg PO BID #20 TAB Prov:ALVA BENJAMIN MD 07/06/16 ALVA BENJAMIN MD Jul 06, 2016 18:59 All discharge instructions reviewed with patient and/or family. Voiced understanding. Scripts Doxycycline Hyclate 100 Mg Tablet.dr100 Mg PO BID #20 TAB Prov:ALVA BENJAMIN MD 07/06/16 ALVA BENJAMIN MD Jul 06, 2016 18:59
[2016-07-06] MEDS ORDERED: DOXY-227 PO (19:00)
[2016-07-06] MEDS ORDERED: ACETAMINOPHEN 500 MG TAB (TYLENOL) PO ONE (19:00)
[2016-07-06] MEDS ORDERED: DOXYCYCLINE 100 MG (VIBRAMYCIN) TABLET PO ONE (19:00)
[2016-07-06 19:08] VITALS: BP 128/79
== END 2016-07-06 19:10 | disposition home or self-care (01) ==
LOC: EDUNIT# 15:31 → ER 15:33
DX: R60.0 Localized edema (principal); M79.661 Pain in right lower leg; M79.662 Pain in left lower leg; J44.9 Chronic obstructive pulmonary disease, unspecified; I10 Essential (primary) hypertension; Z79.899 Other long term (current) drug therapy; Z87.891 Personal history of nicotine dependence; Z86.718 Personal history of other venous thrombosis and embolism
CPT/HCPCS: 36415; 71020; 80053; 81000; 83605; 85025; 85610; 85730; 87040; 87804; 96360

== ENCOUNTER → 2016-07-11 | Outpatient (CLI) | payer MEDICAID ==
[~2016-07-11] MED LIST changes: +DOXY-227 PO; +HYOS0.1217 SL
== END ==
LOC: RAD 13:17
PROVIDERS: ATTEND Internal Medicine Cardiovascular Disease
DX: R06.02 Shortness of breath (principal); I73.9 Peripheral vascular disease, unspecified; I10 Essential (primary) hypertension; I25.10 Atherosclerotic heart disease of native coronary artery without angina pectoris; D68.59 Other primary thrombophilia; Z86.718 Personal history of other venous thrombosis and embolism
CPT/HCPCS: 93923

== ENCOUNTER 2016-07-23 09:48 | Observation (INO) | payer MEDICAID ==
[~2016-07-23] VITALS: Ht 165.1 cm; Wt 103.6 kg
[~2016-07-23 09:48] MED LIST changes: -HYOS0.1217 SL
--- NOTE | 2016-07-23 10:20 | ED Dyspnea ---
General Chief Complaint: Respiratory Problems Stated Complaint: SOA Nursing Triage Note: PT BROUGHT IN BY [facility] WITH C/O SOA. PT HAS CHRONIC COPD AND HAS BEEN DOING NEB TX AT HOME, BUT REPORTS SHE DOESNT FEEL THOUGH SHE IS GETTING MUCH RELIEF. Source of Information: Patient, RN Notes Reviewed Exam Limitations: No Limitations History of Present Illness Time Seen by Provider: 10:19 Initial Comments As above and below. (+) productive cough. Describes purulent sputum. Timing/Duration: 1 Week (but worse over the last 24-48 hours.) Severity: Moderate Activities at Onset: None Prior Episodes/Possible Cause: Chronic Episodes Modifying Factors: Worse With Activity, Worse With Coughing Associated Symptoms: Cough, Wheezing Allergies and Home Medications Allergies Coded Allergies: aspirin (Verified Allergy, Severe, ANAPHYLAXIS, 07/30/11) ibuprofen (Verified Allergy, Severe, ANAPHYLAXIS, 07/30/11) ketorolac (Verified Allergy, Severe, ANAPHYLAXIS, 06/06/16) tetanus and diphtheria toxoids (Unverified Allergy, Severe, ANAPHYLAXIS, ) aloe (Verified Allergy, Mild, RASH, 07/30/11) latex (Verified Allergy, Mild, RASH, 06/06/16) OCCASIONALLY IS IRRITATING SKIN iodine (Verified Adverse Reaction, Unknown, 06/06/16) Patient states she got dizzy, diaphoretic and saw stars. Uncoded Allergies: ALOE VERA (Allergy, Unknown, 12/23/05) SILK SUTURES (Adverse Reaction, Unknown, BODY REJECTS SUTURES, 10/07/13) Home Medications Albuterol Sulfate 2.5 Mg/3 Ml Vial.neb, 2.5 MG IH TID, (Reported) USES THIS ALONG WITH IPRATROPIUM SOLUTION Albuterol Sulfate 8.5 Gm Hfa.aer.ad, 2 PUFF IH EVERY 4-6 HOURS PRN for WHEEZING, (Reported) Alprazolam 1 Mg Tablet, 1 MG PO Q8H PRN for ANXIETY, (Reported) Calcium Carbonate/Vitamin D3 1 Each Tablet, 1 TAB PO BID, (Reported) Diltiazem HCl 120 Mg Capsule.er, 120 MG PO DAILY, (Reported) Fenofibrate Nanocrystallized 145 Mg Tablet, 145 MG PO DAILY, (Reported) Furosemide 80 Mg Tablet, 40-80 MG PO DAILY, (Reported) TAKES 1/2 TO 1 OF A (80 MG) TABLET Hydrocodone/Acetaminophen 1 Each Tablet, 1 TAB PO EVERY 6-8 HOURS PRN for PAIN, (Reported) Hyoscyamine Sulfate 0.125 Mg Tab.rapdis, 0.125 MG SL BID PRN for ABDOMINAL PAIN, (Reported) Ipratropium [place] 0.2 Mg/1 Ml Solution, 1 VIAL NEB TID, (Reported) USES ALONG WITH ALBUTEROL SOLUTION Loratadine 10 Mg Tablet, 10 MG PO DAILY, (Reported) Montelukast Sodium 10 Mg Tablet, 10 MG PO HS, (Reported) Pantoprazole Sodium 40 Mg Tablet.dr, 40 MG PO DAILY, (Reported) Potassium Chloride 10 Meq Tablet.er, 20 MEQ PO TID, (Reported) TAKES 2 (10 MEQ) TABLETS Promethazine HCl 25 Mg Tablet, 25 MG PO Q6H PRN for NAUSEA/VOMITING, (Reported) Warfarin Sodium 5 Mg Tablet, 5 MG PO DAILY @ 1800, (Reported) Constitutional: see HPI Respiratory: see HPI, cough, dyspnea on exertion, orthopnea, phlegm, short of breath, wheezing All Other Systems Reviewed Negative Unless Noted: Yes (Negative excepted noted.) Past Cggqssr-Ahzmmz-Cztroi Hx Patient Social History Alcohol Use: Denies Use Recreational Drug Use: No (15 yrs ago---IV drug user including Cocaine-CLEAN SINCE 1994) Smoking Status: Former Smoker Type Used: Cigarettes Former Smoker/When Quit: May 13, 2002 2nd Hand Smoke Exposure: No Recent Foreign Travel: No Contact w/Someone Who Travel: No Recent Infectious Disease Expo: No Recent Hopitalizations: No Immunizations Up To Date Tetanus Booster (TDap): Less than 5yrs PED Vaccines UTD: No Date of Pneumonia Vaccine: Sep 05, 2010 Date of Influenza Vaccine: Mar 11, 2012 Seasonal Allergies Seasonal Allergies: Yes Surgeries HX Surgeries: Yes (shoulder scope, knee scope, dnc, trop ease filter, ) Surgeries: Abdominal, Adenoidectomy, Section, Gallbladder, Hysterectomy, Orthopedic, Tonsillectomy, Vascular Surgery Respiratory Hx Respiratory Disorders: Yes (O2 AT NIGHT 2-3L) Respiratory Disorders: Asthma, Pneumonia, Chronic Bronchitis, Pulmonary Embolism, Sleep Apnea, COPD, Emphysema Cardiovascular Hx Cardiac Disorders: Yes (VENA CAVA FILTER 2009; VARICOSE VEINS WITH VENOUS STASIS ULCERS) Cardiac Disorders: Chronic Edema/Swelling, Deep Vein Thrombosis, High Cholesterol, Hypertension, Peripheral Vascular Neurological Hx Neurological Disorders: No 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 System Hx 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 Disorders: No Sexually Transmitted Disease: No HIV/AIDS: No 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 Hx 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 Disorders: Yes 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 Disorders: Bladder Infection Gastrointestinal Hx Gastrointestinal Disorders: Yes Gastrointestinal Disorders: Colitis, Gastroesophageal Reflux, Chronic Constipation, Diverticulosis, Polyps, Hiatal Hernia, Irritable Bowel Musculoskeletal Hx Musculoskeletal Disorders: Yes Musculoskeletal Disorders: Arthritis Endocrine Hx Endocrine Disorders: Yes (PRE-DIABETIC ) HEENT HX ENT Disorders: Yes (GLASSES) HEENT Disorders: Tinnitis Loss of Vision: Bilateral Hearing Impairment: Hard of Hearing Cancer Hx Cancer: No Psychosocial Hx Psychiatric Problems: Yes Behavioral Health Disorders: Anxiety Integumentary HX Skin/Integumentary Disorder: Yes (CHRONIC VENOUS STASIS CHANGES/VENOUS STASIS ULCERS) Skin/Integumentary Disorders: Recent Skin Changes Blood Transfusions Hx Blood Disorders: Yes (HX OF DVT'S/ P.E.'S; PROBABLE PROTEIN C DEFICIENCY) Adverse Reaction to a Blood Tr: No (HAS HAD BLOOD WITH NO PROBLEMS) Family Medical History Significant Family History: Cancer, COPD, Vascular Disease Family Medial History: Alcoholism Alcoholism Arthritis Asthma Cancer Cancer of colon Cancer of mouth Cardiovascular disease Cataract Cataracts Chest pain Colon cancer Completed stroke Diabetes mellitus Family history: Allergy Family history: Arthritis Family history: Asthma Family history: Cardiovascular disease Family history: Coronary thrombosis Family history: Diabetes mellitus Family history: Gastrointestinal disease Family history: Hypertension Family history: Thyroid disorder Headache Hearing loss Heart disease History of - anemia History of - respiratory disease Hypercholesterolemia Hypercholesterolemia Infertile Malignant neoplasm of lung Myocardial infarction Myocardial infarction Psychotic disorder Respiratory disorder Stroke No Family History of: AIDS Abdominal aortic aneurysm Abdominal aortic aneurysm [place]'s disease Hun[place]ford's disease Alzheimer's disease Aphasia Aphasia Congenital disease Congenital heart disease Congenital heart disease Congestive heart failure Coronary thrombosis Cystic fibrosis Cystic fibrosis Deafness or hearing loss Dementia Dementia Drug abuse Dysphagia Dysphasia Family history: Alzheimer's disease Family history: Breast disease Family history: Glaucoma Family history: Osteoporosis Fibrocystic disease of breast Gastroenteritis Glaucoma Headache disorder Hereditary disease History of - disorder History of drug abuse Human immunodeficiency virus (HIV) seropositivity Infertility Kidney disease Kidney disease Neoplasm Not obtainable due to adoption Osteoporosis Parkinson's disease Parkinson's disease Prostate cancer Psychosocial problem Seizure disorder Seizure disorder Severe allergy Thyroid disease Tuberculosis Tuberculosis Visual disorder Visual impairment Physical Exam Vital Signs Vital Sign - Last 12Hours 07/23/16 09:48 Temp 97.6 Pulse 129 Resp 25 B/P 124/74 Pulse Ox 93 O2 Delivery Room Air Capillary Refill : Less Than 3 Seconds General Appearance: WD/WN, Mild Distress, Obese HEENT: Pharynx Normal Neck: Normal Inspection Respiratory: Decreased Breath Sounds, Wheezing Cardiovascular: Regular Rate, Rhythm, Tachycardia Gastrointestinal: Other (obese) Rectal: Deferred Neurologic/Psychiatric: Alert, Oriented x3, No Motor/Sensory Deficits Skin: Warm/Dry Focused Exam Lactic Acid Level Laboratory Tests Test 07/23/16 10:20 Progress/Results/Core Measures Results/Orders Lab Results Laboratory Tests Test 07/23/16 10:20 07/23/16 10:50 Range/Units Basophils # (Auto) 0.0 0.0-0.1 10^3/uL Basophils (%) (Auto) 0 0-10 % Eosinophils # (Auto) 1.1 H 0.0-0.3 10^3/uL Eosinophils (%) (Auto) 15 H 0-10 % Hematocrit 41 35-52 % Hemoglobin 13.6 11.5-16.0 G/DL INR Comment 3.6 H 0.8-1.4 Lymphocytes # (Auto) 2.0 1.0-4.0 X 10^3 Lymphocytes (%) (Auto) 26 12-44 % Mean Corpuscular Hemoglobin 29 25-34 PG Mean Corpuscular Hemoglobin Concent 33 32-36 G/DL Mean Corpuscular Volume 88 80-99 FL Mean Platelet Volume 9.5 7.4-10.4 FL Monocytes # (Auto) 0.6 0.0-1.0 X 10^3 Monocytes (%) (Auto) 8 0-12 % Neutrophils # (Auto) 3.7 1.8-7.8 X 10^3 Neutrophils (%) (Auto) 50 42-75 % Platelet Count 337 130-400 10^3/uL Prothrombin Time 36.0 H 12.2-14.7 SEC Red Blood Count 4.70 4.35-5.85 10^6/uL Red Cell Distribution Width 16.0 H 10.0-14.5 % White Blood Count 7.5 4.3-11.0 10^3/uL My Orders Orders-SALOMÓN ELY DO Saline Lock/Iv-Start (07/23/16 10:20) Ekg Tracing (07/23/16 10:20) BNP (07/23/16 10:20) Cbc With Automated Diff (07/23/16 10:20) Magnesium (07/23/16 10:20) Troponin I (07/23/16 10:20) Comprehensive Metabolic Panel (07/23/16 10:20) Chest 1 View, Ap/Pa Only (07/23/16 10:20) Protime With Inr (07/23/16 10:24) Manual Differential (07/23/16 10:50) Vital Signs/I&O Vital Sign - Last 12Hours 07/23/16 09:48 Temp 97.6 Pulse 129 Resp 25 B/P 124/74 Pulse Ox 93 O2 Delivery Room Air Blood Pressure Mean: 91 ECG Initial ECG Impression Date: Jul 23, 2016 Initial ECG Impression Time: 10:44 Initial ECG Rate: 122 Initial ECG Rhythm: S.Tach Initial ECG Intervals: Normal Initial ECG Impression: Normal Initial ECG Comparisson: Changed Diagnostic Imaging Diagonstic Imaging: Xray Plain Films/CT/US/NM/MRI: chest (CXR abnormal; need further evaluation) Departure Communication Time/Spoke to Admitting Phy: 14:30 Impression Impression: Primary Impression: AECOPD Additional Impressions: Hyponatremia Acute dyspnea Hypoxemia requiring supplemental oxygen Disposition: ADMITTED INPATIENT Condition: Stable Decision to Admit Reason: Admit from ER (General) Decision to Admit/Date: Jul 23, 2016 Time/Decision to Admit Time: 14:30 Departure-Patient Inst. Referrals: LEAH WOLF MD (PCP/Family) Primary Care Physician SALOMÓN ELY DO Jul 23, 2016 10:20
--- NOTE | 2016-07-23 10:48 | Diagnostic Imaging Report ---
EXAMINATION: Portable upright radiograph of the chest. INDICATION: Cough and shortness of breath. Fever. FINDINGS: There are patchy bibasilar infiltrates and small pleural effusions. The heart size is borderline enlarged. No effusion or pneumothorax is seen. The mediastinum and rachelle appear unremarkable. There is suggestion of a hiatal hernia. IMPRESSION: There is suggestion of bibasilar infiltrates and atelectasis with question of small pleural effusions. The lung bases are underpenetrated, then better evaluation with PA and lateral views recommended. Dictated by: Dictated on workstation # [id number]
[2016-07-23 10:57] LABS: BASOPHILS % (AUTO) 0 % (0-10); EOSINOPHILS # (AUTO) 1.1 10^3/uL (0.0-0.3); EOSINOPHILS % (AUTO) 15 % (0-10); LYMPHOCYTES % (AUTO) 26 % (12-44); MEAN CORPUSCULAR HEMOGLOBIN 29 PG (25-34); MEAN CORPUSCULAR HGB CONC 33 G/DL (32-36); MEAN CORPUSCULAR VOLUME 88 FL (80-99); MEAN PLATELET VOLUME 9.5 FL (7.4-10.4); MONOCYTES # (AUTO) 0.6 X 10^3 (0.0-1.0); MONOCYTES % (AUTO) 8 % (0-12); NEUTROPHILS # (AUTO) 3.7 X 10^3 (1.8-7.8); NEUTROPHILS % (AUTO) 50 % (42-75); PLATELET COUNT 337 10^3/uL (130-400); WHITE BLOOD COUNT 7.5 10^3/uL (4.3-11.0)
[2016-07-23 11:11] LABS: INR 3.6 (0.8-1.4)
[2016-07-23 11:21] LABS: ANISOCYTOSIS SLIGHT; BAND NEUTROPHILS 0 %; BASOPHILS % (MANUAL) 0 %; EOSINOPHILS % (MANUAL) 15 %; LYMPHOCYTES % (MANUAL) 28 %; NEUTROPHILS % (MANUAL) 51 %
[2016-07-23] MEDS ORDERED: ONDANSETRON 4 MG/2 ML (SDV) Z0FRAN ONE (11:29)
[2016-07-23] MEDS ORDERED: ONDANSETRON 4 MG/2 ML (SDV) Z0FRAN IVP ONE (11:30)
[2016-07-23 12:02] LABS: ALANINE AMINOTRANSFERASE 22 U/L (0-55); ALBUMIN 4.1 G/DL (3.2-4.5); ANION GAP 13 MMOL/L (5-14); ASPARTATE AMINO TRANSFERASE 21 U/L (5-34); BILIRUBIN,TOTAL 0.3 MG/DL (0.1-1.0); BLOOD UREA NITROGEN 7 MG/DL (7-18); BUN/CREATININE RATIO 10; CALCIUM 9.5 MG/DL (8.5-10.1); CARBON DIOXIDE 23 MMOL/L (21-32); CHLORIDE 105 MMOL/L (98-107); CREATININE SERUM 0.68 MG/DL (0.60-1.30); GFR ESTIMATED > 60; GLUCOSE 117 MG/DL (70-105); MAGNESIUM 1.7 MG/DL (1.8-2.4); POTASSIUM 3.4 MMOL/L (3.6-5.0); SODIUM 141 MMOL/L (135-145); TOTAL PROTEIN 7.6 G/DL (6.4-8.2)
[2016-07-23 12:08] LABS: TROPONIN I < 0.30 NG/ML (<0.30)
--- NOTE | 2016-07-23 13:33 | Diagnostic Imaging Report ---
PROCEDURE: CT chest without contrast. TECHNIQUE: Multiple contiguous axial images were obtained through the chest without the use of intravenous contrast. INDICATION: Difficulty breathing. Shortness of air. COMPARISON: Chest radiograph from same day. FINDINGS: Cardiomediastinal structures show normal heart size. There is no large pericardial effusion. No pathologically enlarged or morphologically abnormal adenopathy is seen within the mediastinum, rachelle, or axilla. There is some mild scattered calcified aortic atherosclerosis. Lung windows show no focal consolidation, pleural effusion, or pneumothorax. Punctate subpleural micronodule is noted within the posterior margins of the superior segment of the left lower lobe and measures approximately 2 mm (image 31, series 2). 6 mm juxtapleural micronodule is also noted in the lateral segment of the right middle lobe (image 37, series 2). Bony structures show no acute abnormalities. No lytic or blastic bony lesions are seen. Included portions of the upper abdomen show diffuse hypodense appearance of hepatic parenchyma consistent with hepatic steatosis. IMPRESSION: 1. No acute cardiopulmonary process. 2. Micronodules of the right middle and left lower lobes. Please see below for followup recommendations. 3. Hepatic steatosis. PULMONARY NODULE FOLLOW-UP IN PATIENTS OLDER THAN 30 YEARS No History Of Malignancy within last 5 Years: 4 mm or less High Risk Patient Initial Follow-up CT at 12 months; If unchanged, no further follow-up. Low Risk Patient No follow-up needed. >4-6mm High Risk Patient Initial follow-up CT at 6-12 months, then at 18-24 months if no change. Low Risk Patient Initial follow-up CT at 12 months, if unchanged, no further follow-up >6-8mm High Risk Patient Initial follow-up CT at 3 months, then at 9 and 24 months if no change Low Risk Patient Initial follow-up CT at 6-12 months, then 18-24 months if no change >8mm Consider FNA, VATS, or PET If co-morbidities and PET neg., consider F/U after 3, 9, and 24 mo Then yearly for 3- 5 years if ground glass nodule *All ground glass nodules 4-8mm need initial scan at 3 months, then 6-12 months, then 18-24 months, then yearly for 3-5 years. History of Malignancy within last 5 Years Follow-up CT at 3,6,12, and 24 months or according to clinical protocol. If growth, consider FNA or VATS. Suspected Infection, Immunocompromised, or Fever Short term follow-up 4-6 weeks until resolution, or consider FNA, bronchoscopy, or VATS. Notes: 1. An incidental pulmonary nodule is defined as a rounded opacity in the lung <3cm in size. The recommendations refer to solid pulmonary nodules unless otherwise specified. Nodule measurements are obtained in the long axis. 2. Non-solid (ground glass) nodules may require longer follow-up to exclude indolent adenocarcinoma. 3. Part solid / part ground glass nodules may be more aggressive carcinomas and may require earlier diagnostic intervention. 4. Bronchioloalveolar carcinomas (DWAYNE), well-differentitated adenocarcinomas, and tumors <8mm may be FDG-PET(-). Granulomatous and inflammatory lesions may be FDG-PET(+). 5. All follow-up imaging intervals are measured from the baseline scan timepoint. 6. 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 Dictated by: Dictated on workstation # [id number]
[2016-07-23] MEDS ORDERED: AZITHROMYCIN INJECTION 500 MG in NS (IVPB) 250 ML IV ONE (14:15)
[2016-07-23] MEDS ORDERED: cefTRIAXone INJECTION 1,000 MG in NS (IVPB) 50 ML IV ONE (14:15)
[2016-07-23] MEDS ORDERED: methylPREDNISolone 125 MG (Solu-MEDROL) VIAL IVP ONE (14:15)
[2016-07-23] MEDS ORDERED: NS (IVPB) 50 ML ONE (14:16)
[2016-07-23] MEDS ORDERED: cefTRIAXone 1 GM (ROCEPHIN) VIAL ONE (14:16)
[2016-07-23] MEDS ORDERED: CATHETER FLUSH 10 ML SYR IV PRN (16:00)
[2016-07-23] MEDS ORDERED: RT-ALBUTEROL SULF 2.5 MG/3 ML PRE-MIX VIAL INH PRN (16:00)
[2016-07-23] MEDS ORDERED: RT-ALBUTEROL/IPRATROPIUM 3 ML (DUONEB) VIAL INH PRN (16:15)
[2016-07-23] MEDS ORDERED: HYOS0.1217 SL (16:18)
[2016-07-23 16:27] VITALS: BP 109/69
--- NOTE | 2016-07-23 17:16 | History & Physicial ---
History of Present Illness History of Present Illness Reason for visit/HPI 55 yo female brought in to [facility] ED by EMS for SOB. Patient is with known COPD and does take regular albuterol breathing treatments at home. She currently denies any significant fever but her cough has became more productive of discolored phlegm. Along with his shortness of breath despite breathing treatments she decided to contact EMS. In the emergency department she was found to have saturations in the mid 80 percentile and having difficulty sustaining her saturations. Date of Admission Jul 23, 2016 at 14:07 I consulted on this patient on 07/23/16 17:13 Attending Physician Jay Wolf MD Admitting Physician Jay Wolf MD Consult Allergies and Home Medications Allergies Coded Allergies: aspirin (Verified Allergy, Severe, ANAPHYLAXIS, 07/30/11) ibuprofen (Verified Allergy, Severe, ANAPHYLAXIS, 07/30/11) ketorolac (Verified Allergy, Severe, ANAPHYLAXIS, 06/06/16) tetanus and diphtheria toxoids (Unverified Allergy, Severe, ANAPHYLAXIS, ) aloe (Verified Allergy, Mild, RASH, 07/30/11) latex (Verified Allergy, Mild, RASH, 06/06/16) OCCASIONALLY IS IRRITATING SKIN iodine (Verified Adverse Reaction, Unknown, 06/06/16) Patient states she got dizzy, diaphoretic and saw stars. Uncoded Allergies: ALOE VERA (Allergy, Unknown, 12/23/05) SILK SUTURES (Adverse Reaction, Unknown, BODY REJECTS SUTURES, 10/07/13) Home Medications Albuterol Sulfate 2.5 Mg/3 Ml Vial.neb 2.5 MG IH TID (Reported) USES THIS ALONG WITH IPRATROPIUM SOLUTION Albuterol Sulfate 8.5 Gm Hfa.aer.ad 2 PUFF IH EVERY 4-6 HOURS PRN PRN WHEEZING ( Reported) Alprazolam 1 Mg Tablet 1 MG PO Q8H PRN PRN ANXIETY (Reported) Calcium Carbonate/Vitamin D3 1 Each Tablet 1 TAB PO BID (Reported) Diltiazem HCl 120 Mg Capsule.er 120 MG PO DAILY (Reported) Fenofibrate Nanocrystallized 145 Mg Tablet 145 MG PO DAILY (Reported) Furosemide 80 Mg Tablet 40-80 MG PO DAILY (Reported) TAKES 1/2 TO 1 OF A (80 MG) TABLET Hydrocodone/Acetaminophen 1 Each Tablet 1 TAB PO EVERY 6-8 HOURS PRN PRN PAIN ( Reported) Hyoscyamine Sulfate 0.125 Mg Tab.rapdis 0.125 MG SL BID PRN PRN ABDOMINAL PAIN ( Reported) Ipratropium [place] 0.2 Mg/1 Ml Solution 1 VIAL NEB TID (Reported) USES ALONG WITH ALBUTEROL SOLUTION Loratadine 10 Mg Tablet 10 MG PO DAILY (Reported) Montelukast Sodium 10 Mg Tablet 10 MG PO HS (Reported) Pantoprazole Sodium 40 Mg Tablet.dr 40 MG PO DAILY (Reported) Potassium Chloride 10 Meq Tablet.er 20 MEQ PO TID (Reported) TAKES 2 (10 MEQ) TABLETS Promethazine HCl 25 Mg Tablet 25 MG PO Q6H PRN PRN NAUSEA/VOMITING (Reported) Warfarin Sodium 5 Mg Tablet 5 MG PO DAILY @ 1800 (Reported) Past Ohzbtgh-Coxmzg-Regjho Hx Patient Social History Marrital Status: Number of Children: 3 Alcohol Use: Denies Use Recreational Drug Use: No (15 yrs ago---IV drug user including Cocaine-CLEAN SINCE 1994) Smoking Status: Former Smoker Former smoker/When Quit: May 13, 2002 Type Used: Cigarettes 2nd Hand Smoke Exposure: No Physical Abuse Screen: No Sexual Abuse: No Recent Foreign Travel: No Contact w/other who traveled: No Recent Hopitalizations: No Recent Infectious Disease Expo: No Immunizations Up To Date Tetanus Booster (TDap): Less than 5yrs Date of Pneumonia Vaccine: Sep 05, 2010 Date of Influenza Vaccine: Mar 11, 2012 Seasonal Allergies Seasonal Allergies: Yes Surgeries HX Surgeries: Yes (shoulder scope, knee scope, dnc, trop ease filter, ) Surgeries: Abdominal, Adenoidectomy, Section, Gallbladder, Hysterectomy, Orthopedic, Tonsillectomy, Vascular Surgery Respiratory Hx Respiratory Disorders: Yes (O2 AT NIGHT 2-3L) Cardiovascular Hx Cardiovascular Disorders: Yes (VENA CAVA FILTER 2009; VARICOSE VEINS WITH VENOUS STASIS ULCERS) Cardiac Disorders: Chronic Edema/Swelling, Deep Vein Thrombosis, High Cholesterol, Hypertension, Peripheral Vascular Neurological Hx Neurological Disorders: No 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 System Hx 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 Disorders: No Sexually Transmitted Disease: No HIV/AIDS: No 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 Hx 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 Disorders: Yes 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 Disorders: Bladder Infection Gastrointestinal Hx Gastrointestinal Disorders: Yes Gastrointestinal Disorders: Colitis, Gastroesophageal Reflux, Chronic Constipation, Diverticulosis, Polyps, Hiatal Hernia, Irritable Bowel Musculoskeletal Hx Musculoskeletal Disorders: Yes Musculoskeletal Disorders: Arthritis Endocrine Hx Endocrine Disorders: Yes (PRE-DIABETIC ) HEENT HX ENT Disorders: Yes (GLASSES) HEENT Disorders: Tinnitis Loss of Vision: Bilateral Hearing Impairment: Hard of Hearing Cancer Hx Cancer: No Psychosocial Hx Psychiatric Problems: Yes Behavioral Health Disorders: Anxiety Integumentary HX Skin/Integumentary Disorder: Yes (CHRONIC VENOUS STASIS CHANGES/VENOUS STASIS ULCERS) Skin/Integumentary Disorders: Recent Skin Changes Blood Transfusions Hx Blood Disorders: Yes (HX OF DVT'S/ P.E.'S; PROBABLE PROTEIN C DEFICIENCY) Adverse Reaction to a Blood Tr: No (HAS HAD BLOOD WITH NO PROBLEMS) Family Medical History Significant Family History: Cancer, COPD, Vascular Disease Family Hx: Alcoholism Alcoholism Arthritis Asthma Cancer Cancer of colon Cancer of mouth Cardiovascular disease Cataract Cataracts Chest pain Colon cancer Completed stroke Diabetes mellitus Family history: Allergy Family history: Arthritis Family history: Asthma Family history: Cardiovascular disease Family history: Coronary thrombosis Family history: Diabetes mellitus Family history: Gastrointestinal disease Family history: Hypertension Family history: Thyroid disorder Headache Hearing loss Heart disease History of - anemia History of - respiratory disease Hypercholesterolemia Hypercholesterolemia Infertile Malignant neoplasm of lung Myocardial infarction Myocardial infarction Psychotic disorder Respiratory disorder Stroke No Family History of: AIDS Abdominal aortic aneurysm Abdominal aortic aneurysm [place]'s disease Fernando's disease Alzheimer's disease Aphasia Aphasia Congenital disease Congenital heart disease Congenital heart disease Congestive heart failure Coronary thrombosis Cystic fibrosis Cystic fibrosis Deafness or hearing loss Dementia Dementia Drug abuse Dysphagia Dysphasia Family history: Alzheimer's disease Family history: Breast disease Family history: Glaucoma Family history: Osteoporosis Fibrocystic disease of breast Gastroenteritis Glaucoma Headache disorder Hereditary disease History of - disorder History of drug abuse Human immunodeficiency virus (HIV) seropositivity Infertility Kidney disease Kidney disease Neoplasm Not obtainable due to adoption Osteoporosis Parkinson's disease Parkinson's disease Prostate cancer Psychosocial problem Seizure disorder Seizure disorder Severe allergy Thyroid disease Tuberculosis Tuberculosis Visual disorder Visual impairment Constitutional: see HPI Physical Exam Vital Signs Vital Sign - Last 12Hours 07/23/16 07/23/16 09:48 15:14 Temp 97.6 Pulse 129 Resp 25 B/P 124/74 Pulse Ox 93 O2 Delivery Room Air O2 Flow Rate 2.00 Capillary Refill : Less Than 3 Seconds General Appearance: Mild Distress HEENT: Pharynx Normal Neck: Normal Inspection Respiratory: Wheezing (on expiration) Cardiovascular: Regular Rate, Rhythm Gastrointestinal: Soft Comments NAME: SUJEY FELIZ [facility] REC#: [id number] PT STATUS: REG ER : 1960 PHYSICIAN: SALOMÓN ELY DO ADMIT DATE: 07/23/16/ER Signed Date of Exam: 07/23/16 CHEST 1 VIEW, AP/PA ONLY EXAMINATION: Portable upright radiograph of the chest. INDICATION: Cough and shortness of breath. Fever. FINDINGS: There are patchy bibasilar infiltrates and small pleural effusions. The heart size is borderline enlarged. No effusion or pneumothorax is seen. The mediastinum and rachelle appear unremarkable. There is suggestion of a hiatal hernia. IMPRESSION: There is suggestion of bibasilar infiltrates and atelectasis with question of small pleural effusions. The lung bases are underpenetrated, then better evaluation with PA and lateral views recommended. Dictated by: Dictated on workstation # [id number] Dict: 07/23/16 1039 Trans: 07/23/16 1432 [id number] Interpreted by: TRACI NORIEGA MD Assessment/Plan Assessment and Plan 1. COPD exacerbation 2. Bronchitis 3. Pulmonary nodule Admission Diagnosis 1. COPD exacerbation -IV solumedrol -RT for breathing Tx -O2 by NC 2. Bronchitis -IV zithromax 3. Pulmonary nodule -to follow OP Clinical Quality Measures DVT/VTE Risk/Contraindication: Risk Factor Score Per Nursin RFS Level Per Nursing on Admit: 4+=Very High JAY WOLF MD Jul 23, 2016 17:16
[2016-07-23] MEDS ORDERED: HYDROcodone/APAP 10 MG/325 MG (LORTAB) TAB PO PRN (17:30)
[2016-07-23] MEDS ORDERED: NON-FORMULARY MEDICATION 1 EA EA (Hyoscyamine Sulfate 0.125 MG) SL PRN (17:30)
[2016-07-23] MEDS ORDERED: ALPRAZolam 1 MG (XANAX) TAB PO PRN (17:30)
[2016-07-23] MEDS: NS IV 1000 ML 1,000 ML IV SCH (17:33)
[2016-07-23] MEDS ORDERED: HYOSCYAMINE 0.125 MG (LEVSIN) TAB SL PRN (18:00)
[2016-07-23] MEDS: KCL 10 MEQ TAB (MICRO K) PO SCH (18:33)
[2016-07-23] MEDS: CALCIUM CARB + VIT D 600 MG (CALCARB + D) TAB PO SCH (18:33)
[2016-07-23] MEDS: RT-BUDESONIDE NEBS 0.5 MG/2ML (PULMICORT) AMP INH SCH (19:43)
[2016-07-23 20:00] VITALS: BP 112/58
[2016-07-23] MEDS: MONTELUKAST 10 MG (SINGULAIR) TAB PO SCH (20:57)
[2016-07-23] MEDS: methylPREDNISolone 125 MG (Solu-MEDROL) VIAL IV SCH (20:58)
[2016-07-23] MEDS ORDERED: RT-ALBUTEROL/IPRATROPIUM 3 ML (DUONEB) VIAL IH SCH (21:00)
[2016-07-23] MEDS ORDERED: KCL 10 MEQ TAB (MICRO K) PO SCH (21:00)
[2016-07-23] MEDS: RT-ALBUTEROL/IPRATROPIUM 3 ML (DUONEB) VIAL IH SCH (22:47)
[2016-07-24] VITALS: BP 121/73
[2016-07-24] MEDS: RT-ALBUTEROL/IPRATROPIUM 3 ML (DUONEB) VIAL IH SCH ×6 (02:28→22:05)
[2016-07-24] MEDS: PROMETHAZINE 25 MG (PHENERGAN) TAB PO PRN ×3 (03:21→18:46)
[2016-07-24 04:00] VITALS: BP 124/73
[2016-07-24] MEDS: CALCIUM CARB + VIT D 600 MG (CALCARB + D) TAB PO SCH ×2 (06:34→17:05)
[2016-07-24] MEDS: PANTOPRAZOLE 40 MG (PROTONIX) TAB PO SCH (06:34)
[2016-07-24] MEDS: methylPREDNISolone 125 MG (Solu-MEDROL) VIAL IV SCH (06:34)
[2016-07-24] MEDS: FUROSEMIDE 40 MG (LASIX) TAB PO SCH (06:35)
[2016-07-24] MEDS: KCL 10 MEQ TAB (MICRO K) PO SCH ×3 (06:35→17:05)
[2016-07-24] MEDS: RT-BUDESONIDE NEBS 0.5 MG/2ML (PULMICORT) AMP INH SCH ×2 (07:14→18:56)
--- NOTE | 2016-07-24 07:29 | Progress Note (SOAP) ---
Subjective Subjective/Events-last exam Patient complaining of nausea. Still has cough but has overall improved. Objective Exam Vital Signs Date Time Temp Pulse Resp B/P Pulse Ox O2 Delivery O2 Flow Rate FiO2 07/24/16 07:16 92 2.00 07/24/16 07:14 92 2.00 07/24/16 04:00 97.4 103 18 124/73 93 Nasal Cannula 2.00 07/24/16 02:28 90 2.00 07/24/16 00:00 97.6 113 18 121/73 92 Nasal Cannula 2.00 07/23/16 22:47 92 2.00 07/23/16 20:00 98.4 108 20 112/58 94 Nasal Cannula 2.00 07/23/16 19:43 89 2.00 07/23/16 16:27 97.5 105 20 109/69 89 Nasal Cannula 2.00 07/23/16 16:20 114 07/23/16 16:07 89 2.00 07/23/16 16:07 89 07/23/16 15:14 93 Nasal Cannula 2.00 07/23/16 15:11 98.7 90 16 93 07/23/16 09:48 97.6 129 25 124/74 93 Room Air Capillary Refill : Less Than 3 Seconds General Appearance: No Apparent Distress Respiratory: Wheezing (much improved from admission) Cardiovascular: Regular Rate, Rhythm Extremity: Other (leg edema (chronic)) Results Lab Laboratory Tests 07/23/16 10:50: Anisocytosis SLIGHT, Band Neutrophils 0, Basophils # (Auto) 0.0, Basophils % ( Manual) 0, Basophils (%) (Auto) 0, Eosinophils # (Auto) 1.1H, Eosinophils % ( Manual) 15, Eosinophils (%) (Auto) 15H, Hematocrit 41, Hemoglobin 13.6, INR Comment 3.6H, Lymphocytes # (Auto) 2.0, Lymphocytes % (Manual) 28, Lymphocytes ( %) (Auto) 26, Mean Corpuscular Hemoglobin 29, Mean Corpuscular Hemoglobin Concent 33, Mean Corpuscular Volume 88, Mean Platelet Volume 9.5, Monocytes # ( Auto) 0.6, Monocytes % (Manual) 6, Monocytes (%) (Auto) 8, Neutrophils # (Auto) 3.7, Neutrophils % (Manual) 51, Neutrophils (%) (Auto) 50, Platelet Count 337, Prothrombin Time 36.0H, Red Blood Count 4.70, Red Cell Distribution Width 16.0H , White Blood Count 7.5 07/23/16 11:25: Alanine Aminotransferase (ALT/SGPT) 22, Albumin 4.1, Alkaline Phosphatase 64, Anion Gap 13, Aspartate Amino Transf (AST/SGOT) 21, B-Type Natriuretic Peptide < 10.0, BUN/Creatinine Ratio 10, Blood Urea Nitrogen 7, Calcium Level 9.5, Carbon Dioxide Level 23, Chloride Level 105, Creatinine 0.68, Estimat Glomerular Filtration Rate > 60, Glucose Level 117H, Magnesium Level 1.7L, Potassium Level 3.4L, Sodium Level 141, Total Bilirubin 0.3, Total Protein 7.6, Troponin I < 0.30 Assessment/Plan Assessment/Plan Assess & Plan/Chief Complaint 1. COPD exacerbation -IV solumedrol -RT for breathing Tx -O2 by NC 07/24 Change to po prednisone -DC solumedrol 2. Bronchitis -IV zithromax 07/24 Zithromax day 2 3. Pulmonary nodule -to follow OP 4. Nausea -treat symptomatic Clinical Quality Measures DVT/VTE Risk/Contraindication: Risk Factor Score Per Nursin RFS Level Per Nursing on Admit: 4+=Very High LEAH WOLF MD Jul 24, 2016 07:29
[2016-07-24] MEDS: NS IV 1000 ML 1,000 ML IV SCH ×3 (07:36→21:30)
[2016-07-24 08:00] VITALS: BP 130/71
[2016-07-24] MEDS ORDERED: predniSONE 20 MG TAB PO NR (08:22)
[2016-07-24] MEDS ORDERED: predniSONE 10 MG TAB PO NR (08:23)
[2016-07-24] MEDS: LORATADINE (CLARITIN) 10 MG TAB PO SCH (08:41)
[2016-07-24] MEDS: DILTIAZEM 120 MG (CARDIZEM CD) CAP PO SCH (08:41)
[2016-07-24] MEDS: ONDANSETRON 4 MG (ZOFRAN) ORAL DISSOLVE TAB PO PRN (08:42)
[2016-07-24] MEDS: cefTRIAXone 1 GM/NS 50 ML IVPB IV SCH ×4 (08:43→21:30)
[2016-07-24] MEDS ORDERED: AZITHROMYCIN 500 MG/NS 250 ML IVPB IV SCH ×2 (09:00)
[2016-07-24] MEDS ORDERED: NON-FORMULARY MEDICATION 1 EA EA (Diltiazem HCl (Diltiazem ER) 120 MG) PO SCH (09:00)
[2016-07-24] MEDS ORDERED: FUROSEMIDE 40 MG PO SCH (09:00)
[2016-07-24] MEDS ORDERED: NON-FORMULARY MEDICATION 1 EA EA (Fenofibrate Nanocrystallized (Fenofibrate) 145 MG) PO SCH (09:00)
--- NOTE | 2016-07-24 09:31 | Diagnostic Imaging Report ---
EXAMINATION: PA and lateral views of the chest. INDICATION: Bibasilar infiltrates. FINDINGS: The lungs are hyperinflated. There is minimal bibasilar atelectasis. The heart size is mildly enlarged. No significant congestion or pulmonary edema. No effusion or pneumothorax. The mediastinum and rachelle appear unremarkable. IMPRESSION: COPD. Minimal bibasilar atelectasis. Dictated by: Dictated on workstation # [id number]
[2016-07-24 12:00] VITALS: BP 116/62
[2016-07-24 16:37] VITALS: BP 128/73
[2016-07-24 20:00] VITALS: BP 127/68
[2016-07-24] MEDS: MONTELUKAST 10 MG (SINGULAIR) TAB PO SCH (20:09)
[2016-07-24] MEDS ORDERED: FENOFIBRATE 134 MG (LOFIBRA) CAPSULE PO SCH (21:00)
[2016-07-25] VITALS: BP 119/69
[2016-07-25] MEDS: RT-ALBUTEROL/IPRATROPIUM 3 ML (DUONEB) VIAL IH SCH ×4 (02:23→13:28)
[2016-07-25] MEDS: ONDANSETRON 4 MG (ZOFRAN) ORAL DISSOLVE TAB PO PRN ×2 (05:29→11:37)
[2016-07-25] MEDS: FUROSEMIDE 40 MG (LASIX) TAB PO SCH (05:30)
[2016-07-25] MEDS: CALCIUM CARB + VIT D 600 MG (CALCARB + D) TAB PO SCH (05:30)
[2016-07-25] MEDS: PANTOPRAZOLE 40 MG (PROTONIX) TAB PO SCH (05:30)
[2016-07-25] MEDS: KCL 10 MEQ TAB (MICRO K) PO SCH ×2 (05:30→11:34)
[2016-07-25] MEDS ORDERED: diphenhydrAMINE 25 MG TAB (BENADRYL) PO PRN (05:45)
[2016-07-25] MEDS: RT-BUDESONIDE NEBS 0.5 MG/2ML (PULMICORT) AMP INH SCH (06:03)
--- NOTE | 2016-07-25 07:54 | Discharge Summary ---
Diagnosis/Chief Complaint Date of Admission Jul 23, 2016 at 14:07 Date of Discharge Discharge Date: Jul 25, 2016 Admission Diagnosis Admission Diagnosis 1. COPD exacerbation -IV solumedrol -RT for breathing Tx -O2 by NC 2. Bronchitis -IV zithromax 3. Pulmonary nodule -to follow OP Discharge Diagnosis 1. COPD exacerbation 2. Bronchitis 3. Pulmonary nodules -- right middle lobe and left middle lobe Reason Hospital Visit 55 yo female brought in to [facility] ED by EMS for SOB. Patient is with known COPD and does take regular albuterol breathing treatments at home. She currently denies any significant fever but her cough has became more productive of discolored phlegm. Along with his shortness of breath despite breathing treatments she decided to contact EMS. In the emergency department she was found to have saturations in the mid 80 percentile and having difficulty sustaining her saturations. Discharge Summary Hospital Course Hospital Course Patient was admitted on July 23, 2016 with diagnosis of COPD exacerbation as well as bilateral bibasar pulmonary infiltrates. She was admitted and underwent treatment with albuterol breathing treatments, oxygen by nasal cannula , IV Solu-Medrol 80 mg every 8 hours. In addition for antibiotic she was started on IV Zithromax as well as IV ceftriaxone. She was also found to have pulmonary nodules by CT of the chest and this was discussed with patient. The pulmonary nodules will be followed up outpatient and monitored carefully. She was found to have slightly elevated INR which is monitored at home so her Coumadin was held during the course of her stay. In the morning of July 24, 2016 by auscultation her lungs had somewhat improved. A repeat chest x-ray was done to check the complete status of the bibasilar pulmonary infiltrates. The x-ray revealed minimal bilateral atelectasis. She was continued on the IV Rocephin and Zithromax during the course of her hospital stay. Also on July 24 the IV Solu-Medrol was discontinued and she was placed on 50 mg of prednisone. Patient tolerated this well. She was noted to have diffuse nonspecific itching in the early a.m. of July 25 and was given Benadryl. Patient's lungs sounded fairly clear in the morning of July 25 and she was felt ready for dismissal. All questions were answered and follow-up this coming Saturday on July 31, 2016 recommended. Labs Laboratory Tests 07/23/16 10:50: Eosinophils # (Auto) 1.1H, Eosinophils (%) (Auto) 15H, INR Comment 3.6H, Prothrombin Time 36.0H, Red Cell Distribution Width 16.0H 07/23/16 11:25: Glucose Level 117H, Magnesium Level 1.7L, Potassium Level 3.4L Procedures None. Discharge Physical Examination Allergies: Coded Allergies: aspirin (Verified Allergy, Severe, ANAPHYLAXIS, 07/30/11) ibuprofen (Verified Allergy, Severe, ANAPHYLAXIS, 07/30/11) ketorolac (Verified Allergy, Severe, ANAPHYLAXIS, 06/06/16) tetanus and diphtheria toxoids (Unverified Allergy, Severe, ANAPHYLAXIS, ) aloe (Verified Allergy, Mild, RASH, 07/30/11) latex (Verified Allergy, Mild, RASH, 06/06/16) OCCASIONALLY IS IRRITATING SKIN iodine (Verified Adverse Reaction, Unknown, 06/06/16) Patient states she got dizzy, diaphoretic and saw stars. Uncoded Allergies: ALOE VERA (Allergy, Unknown, 12/23/05) SILK SUTURES (Adverse Reaction, Unknown, BODY REJECTS SUTURES, 10/07/13) Vitals & I&Os Vital Signs Date Time Temp Pulse Resp B/P Pulse Ox O2 Delivery O2 Flow Rate FiO2 07/25/16 06:05 96 2.00 07/25/16 00:00 97.8 101 18 119/69 Nasal Cannula General Appearance: No Acute Distress HEENT: Mucous Memb Moist/[place] Respiratory: Clear to Auscultation (Minimal expiratory wheeze) Cardiovascular: Regular Rate Abdominal: Soft Skin: No Rashes Discharge Home Medications Reviewed and agree with Discharge Medication list on patient's Discharge Instruction sheet Instructions to Patient/Family Please see electonic discharge instructions given to patient. Clinical Quality Measures DVT/VTE Risk/Contraindication: Risk Factor Score Per Nursin RFS Level Per Nursing on Admit: 4+=Very High LEAH WOLF MD Jul 25, 2016 07:54
[2016-07-25 08:36] VITALS: BP 129/81
[2016-07-25] MEDS: LORATADINE (CLARITIN) 10 MG TAB PO SCH (08:56)
[2016-07-25] MEDS: DILTIAZEM 120 MG (CARDIZEM CD) CAP PO SCH (08:57)
[2016-07-25] MEDS ORDERED: AZITHROMYCIN 250 MG TAB (ZITHROMAX) PO SCH (09:00)
[2016-07-25] MEDS: PROMETHAZINE 25 MG (PHENERGAN) TAB PO PRN (09:04)
[2016-07-25] MEDS ORDERED: predniSONE 20 MG TAB PO NR (14:15)
[2016-07-25] MEDS ORDERED: predniSONE 10 MG TAB ONE (14:17)
[2016-07-25] MEDS ORDERED: predniSONE 10 MG TAB PO ONE (14:30)
[2016-07-25 14:35] VITALS: BP 129/81
== END 2016-07-25 07:54 | disposition home or self-care (01) ==
LOC: EDUNIT# 09:48 → ER 09:49 → UNDOADMOB 14:07 → 4TH 14:07 → UNDODISOB 07-25 07:54
PROVIDERS: ADMIT Family Medicine; ATTEND Family Medicine
DX: J44.1 Chronic obstructive pulmonary disease with (acute) exacerbation (principal); R91.1 Solitary pulmonary nodule; I10 Essential (primary) hypertension; E78.5 Hyperlipidemia, unspecified; K21.9 Gastro-esophageal reflux disease without esophagitis; R73.03 Prediabetes; E87.1 Hypo-osmolality and hyponatremia; Z87.891 Personal history of nicotine dependence; Z79.01 Long term (current) use of anticoagulants; Z79.899 Other long term (current) drug therapy
CPT/HCPCS: 36415; 71010; 71020; 71250; 80053; 83735; 83880; 84484; 85007; 85027; 85610; 93005; 94640; 94760; 96365; 96375; G0378

== ENCOUNTER → 2016-08-03 | Outpatient (CLI) | payer MEDICAID ==
[~2016-08-03] MED LIST changes: +HYOS0.1217 SL
[2016-08-03 09:54] LABS: BASOPHILS % (AUTO) 0 % (0-10); EOSINOPHILS # (AUTO) 0.6 10^3/uL (0.0-0.3); EOSINOPHILS % (AUTO) 7 % (0-10); LYMPHOCYTES # (AUTO) 2.8 X 10^3 (1.0-4.0); LYMPHOCYTES % (AUTO) 31 % (12-44); MEAN CORPUSCULAR HEMOGLOBIN 29 PG (25-34); MEAN CORPUSCULAR HGB CONC 32 G/DL (32-36); MEAN CORPUSCULAR VOLUME 91 FL (80-99); MEAN PLATELET VOLUME 8.7 FL (7.4-10.4); MONOCYTES % (AUTO) 11 % (0-12); NEUTROPHILS # (AUTO) 4.6 X 10^3 (1.8-7.8); NEUTROPHILS % (AUTO) 51 % (42-75); PLATELET COUNT 337 10^3/uL (130-400); RED BLOOD COUNT 4.68 10^6/uL (4.35-5.85); RED CELL DISTRIBUTION WIDTH 15.8 % (10.0-14.5)
[2016-08-03 10:01] LABS: PROTHROMBIN TIME PATIENT 31.3 SEC (12.2-14.7)
== END ==
LOC: LAB 09:28
PROVIDERS: ATTEND Family Medicine
DX: K62.5 Hemorrhage of anus and rectum (principal)
CPT/HCPCS: 36415; 85025; 85610

== ENCOUNTER → 2016-08-07 | Outpatient (CLI) | payer MEDICAID ==
--- NOTE | 2016-08-09 13:55 | ECHOCARDIOGRAPHY REPORT ---
PROCEDURE PHYSICIAN: PAVAN NASH DATE OF PROCEDURE: 08/07/2016 TWO DIMENSIONAL ECHOCARDIOGRAM REPORT PRIMARY PHYSICIAN: OTHER PHYSICIAN: REFERRING PHYSICIAN: ORDERING PHYSICIAN: INDICATION FOR THE PROCEDURE: MEASUREMENTS DERIVED VALUES LV DIAMETER (LAX) NORMALS NORMALS Diastolic (3.6-5.2) Eject. Fract. (60%+/-6%) Systolic (2.3-3.9) Diastolic Vol. % Shortening (0.22-0.42) Systolic Vol. Aortic Root IVS THICKNESS Diastolic (0.6-1.1) LVPW THICKNESS Diastolic (0.6-1.1) LA DIAMETER Systolic (2.1-3.7) DESCRIPTION: Two-dimension echocardiography shows normal global left ventricular systolic function with normal regional wall motion. Aortic, mitral, and tricuspid valve leaflets show good leaflet excursion. There is no significant pericardial effusion. Aortic, mitral and tricuspid valve leaflets, to the extent visualized, seem to have good leaflet excursion. The aortic valve appears to be trileaflet. Doppler imaging shows trivial, mitral regurgitation. There is no Doppler evidence of any significant valvular stenosis. Mitral inflow is consistent with grade 1 diastolic dysfunction of the left ventricle. There is no evidence of any significant intracardiac shunt on this transthoracic echocardiographic study. Inferior vena cava does not appear to be significantly dilated and does exhibit inspiratory collapse. CONCLUSIONS: 1. Normal global left ventricular systolic function with an ejection fraction of approximately 60%. 2. Trivial, mitral and tricuspid regurgitation. 3. Mild diastolic dysfunction of the left ventricle. 4. Pulmonary artery systolic pressure is estimated to be within normal limits. Job ID: [id number] Dictated Date: 08/09/2016 11:43:38 Cloth Reeler Date: 08/09/2016 13:46:45 / jeanne
== END ==
LOC: CARD 14:33
PROVIDERS: ATTEND Internal Medicine Cardiovascular Disease
DX: I25.10 Atherosclerotic heart disease of native coronary artery without angina pectoris (principal); I73.9 Peripheral vascular disease, unspecified; J43.8 Other emphysema; R06.02 Shortness of breath; M79.89 Other specified soft tissue disorders; I10 Essential (primary) hypertension; D68.59 Other primary thrombophilia; Z86.718 Personal history of other venous thrombosis and embolism
CPT/HCPCS: 93306

== ENCOUNTER → 2016-08-09 | Outpatient (CLI) | payer MEDICAID ==
[~2016-08-09] VITALS: Ht 165.1 cm; Wt 105.2 kg
[~2016-08-09] MED LIST changes: +CATHETER FLUSH 10 ML SYR IV PRN; +REGADENOSON 0.4 MG/5 ML SYR (LEXISCAN) IV ONE
[2016-08-09 08:28] LABS: ALANINE AMINOTRANSFERASE 23 U/L (0-55); ALBUMIN 3.3 G/DL (3.2-4.5); ANION GAP 7 MMOL/L (5-14); ASPARTATE AMINO TRANSFERASE 18 U/L (5-34); BILIRUBIN,TOTAL 0.4 MG/DL (0.1-1.0); BLOOD UREA NITROGEN 8 MG/DL (7-18); BUN/CREATININE RATIO 12; CALCIUM 8.2 MG/DL (8.5-10.1); CARBON DIOXIDE 25 MMOL/L (21-32); CHLORIDE 110 MMOL/L (98-107); CHOLESTEROL 205 MG/DL (< 200); CREATININE SERUM 0.67 MG/DL (0.60-1.30); DIRECT LDL 144 MG/DL (1-129); GFR ESTIMATED > 60; GLUCOSE 119 MG/DL (70-105); POTASSIUM 3.9 MMOL/L (3.6-5.0); SODIUM 142 MMOL/L (135-145); TOTAL PROTEIN 6.1 G/DL (6.4-8.2); TRIGLYCERIDES 208 MG/DL (<150); VLDL CHOLESTEROL 42 MG/DL (5-40)
[2016-08-09 08:48] LABS: THYROID STIMULATING HORMONE 1.17 UIU/ML (0.35-4.94)
[2016-08-09 09:52] VITALS: BP 130/85
[2016-08-09 09:57] VITALS: BP 152/85
[2016-08-09 09:59] VITALS: BP 158/85
--- NOTE | 2016-08-10 07:17 | STRESS TEST ---
PROCEDURE PHYSICIAN: PAVAN NÚÑEZ RESTING AND POST REGADENOSON TECHNETIUM 99M TETROFOSMIN SPECT CT IMAGING DATE OF PROCEDURE: 08/09/2016 ORDERING PHYSICIAN: Dr. Núñez PRIMARY PHYSICIAN: Dr. Rogers CLINICAL DIAGNOSIS: Coronary artery disease, shortness of breath, hypertension. Baseline images were carried out after injection of 10.08 mCi of technetium 99m tetrofosmin. This was followed by 0.4 mg of regadenoson and 30.8 mCi of technetium 99m tetrofosmin for stress imaging. The electrocardiogram showed sinus rhythm. There were no significant electrocardiographic changes with regadenoson infusion. She noted mild shortness of breath following regadenoson infusion which resolved in a few minutes. During resting image acquisition, she exhibited significant motion and that compromised the quality of the study. Good post stress images are available and there does not appear to be significant perfusion defects following stress. Gated images show normal global left ventricular systolic function with normal regional wall motion. Left ventricular ejection fraction is calculated to be 78%. Left ventricular end-diastolic volume is 61 mL. Because of motion during resting imaging acquisition, TID cannot be calculated. CONCLUSION: 1. Technically difficult study. 2. No evidence of any significant myocardial ischemia or infarction on this study. 3. Normal regional wall motion. 4. Normal global left ventricular systolic function with an ejection fraction of 78%. Job ID: [id number] Dictated Date: 08/09/2016 13:26:10 Android Platform Developer Date: 08/10/2016 07:11:50 / jeanne
== END ==
LOC: CARD 07:51
PROVIDERS: ATTEND Internal Medicine Cardiovascular Disease
DX: R06.02 Shortness of breath (principal); R07.89 Other chest pain; R00.2 Palpitations
CPT/HCPCS: 36415; 78452; 80053; 80061; 84443; 93017

== ENCOUNTER 2016-09-06 16:15 | Outpatient (RCR) | payer MEDICAID ==
[~2016-09-06 16:15] MED LIST changes: -CATHETER FLUSH 10 ML SYR IV PRN; -REGADENOSON 0.4 MG/5 ML SYR (LEXISCAN) IV ONE
[2016-09-06 17:02] LABS: PROTHROMBIN TIME PATIENT 61.5 SEC (12.2-14.7)
== END 2016-12-05 | disposition home or self-care (01) ==
LOC: LAB 16:15
PROVIDERS: ATTEND Family Medicine
DX: Z51.81 Encounter for therapeutic drug level monitoring (principal); Z79.01 Long term (current) use of anticoagulants; Z86.718 Personal history of other venous thrombosis and embolism
CPT/HCPCS: 36415; 85610

== ENCOUNTER → 2016-09-19 | Outpatient (CLI) | payer MEDICAID ==
--- NOTE | 2016-09-19 13:14 | Diagnostic Imaging Report ---
PROCEDURE: CT chest without contrast. TECHNIQUE: Multiple contiguous axial images were obtained through the chest without the use of intravenous contrast. INDICATION: Followup right middle and left lower lobe nodules. FINDINGS: A stable 6 mm right middle lobe nodule is seen. There is a questionable 2 mm nodule in the superior segment of the left lower lobe again noted which is favored to be related to a vessel based on this exam. There is minimal atelectasis in the lung bases. No significant consolidation, mass, or interstitial lung disease is seen. The heart size is normal. The thoracic aorta is normal in caliber. No pericardial or pleural effusion. No significantly enlarged mediastinal or axillary lymphadenopathy is seen. The hilar vessels are not opacified on this exam. No obvious hilar mass is identified. There is mild degenerative change and mild right convexity scoliosis in the thoracic spine. The liver demonstrates diffuse hepatic steatosis. IMPRESSION: 1. Stable 6 mm indeterminate right middle lobe nodule without change from the 07/23/2016 exam. Followup low dose CT chest without contrast in 6-9 months is recommended. 2. Hepatic steatosis. Dictated by: Dictated on workstation # [id number]
== END ==
LOC: RAD 10:34
PROVIDERS: ATTEND Family Medicine
DX: R91.8 Other nonspecific abnormal finding of lung field (principal)
CPT/HCPCS: 71250

== ENCOUNTER → 2016-12-10 | Outpatient (CLI) | payer MEDICAID ==
[~2016-12-10] MED LIST changes: +AZIT250T12 PO; -AZIT250T5 PO; +HYOS-19 PO; +HYOS-6 SL; -HYOS0.1217 SL; -HYOS0.1218 PO
--- NOTE | 2016-12-12 08:47 | Diagnostic Imaging Report ---
Bilateral screening mammogram 2D views with tomosynthesis The current study was also evaluated with a Computer Aided Detection (CAD) system. Indication: Screening. No current complaints stated on the questionnaire. COMPARISON: 12/08/15. FINDINGS: The breasts are composed of scattered fibroglandular densities. There is a nodule seen along the lateral aspect of the right breast measuring 6 mm in size with suggestion of a central lucency may relate to an intramammary lymph node. This is, however, not identified on the MLO view. The left breast demonstrates no definite change. IMPRESSION: A 6 mm asymmetry along the lateral aspect of the right breast is seen. Focal compression view and ultrasound evaluation is recommended. ACR BI-RADS Category 0: Incomplete. (Needs additional imaging evaluation). Result letter will be mailed to the patient. Note: At least 10% of breast cancer is not imaged by mammography. Dictated by: Dictated on workstation # [id number]
== END ==
LOC: RAD 14:47
PROVIDERS: ATTEND Family Medicine
DX: Z12.31 Encounter for screening mammogram for malignant neoplasm of breast (principal)
CPT/HCPCS: 77067

== ENCOUNTER 2016-12-16 18:34 | Emergency (ER) | payer MEDICAID ==
[~2016-12-16] VITALS: Ht 165.1 cm; Wt 98.9 kg
[~2016-12-16 18:34] MED LIST changes: -AZIT250T12 PO; +AZIT250T5 PO
--- NOTE | 2016-12-16 19:23 | Diagnostic Imaging Report ---
INDICATION: Left knee pain. FINDINGS: Three views of the left knee show no fracture, dislocation, or other acute bony abnormality. There is narrowing of the medial and patellofemoral compartments with mild spurring. There is a small effusion. IMPRESSION: There are mild degenerative changes present with no acute abnormality seen. Dictated by: Dictated on workstation # [id number]
[2016-12-16 19:42] LABS: PROTHROMBIN TIME PATIENT 22.8 SEC (12.2-14.7)
--- NOTE | 2016-12-16 19:59 | ED Lower Extremity ---
General Chief Complaint: Lower Extremity Stated Complaint: L LEG PAIN/SWELLING Nursing Triage Note: C/O L ANKLE PAIN Nursing Sepsis Screen: No Definite Risk History of Present Illness Time seen by provider: 19:00 Initial Comments Evaluation for left leg. Patient has a history of DVTs. She is currently on Coumadin. Approximately one week ago she reports drinking and physical activity like her granddaughter, which included some jumping. Since then she's had left lower extremity pain. Onset: last week Pain/Injury Location: left leg, left knee Method of Injury: unknown Allergies and Home Medications Allergies Coded Allergies: aspirin (Verified Allergy, Severe, ANAPHYLAXIS, 07/30/11) ibuprofen (Verified Allergy, Severe, ANAPHYLAXIS, 07/30/11) ketorolac (Verified Allergy, Severe, ANAPHYLAXIS, 06/06/16) tetanus and diphtheria toxoids (Unverified Allergy, Severe, ANAPHYLAXIS, ) aloe (Verified Allergy, Mild, RASH, 07/30/11) latex (Verified Allergy, Mild, RASH, 06/06/16) OCCASIONALLY IS IRRITATING SKIN iodine (Verified Adverse Reaction, Unknown, 06/06/16) Patient states she got dizzy, diaphoretic and saw stars. Uncoded Allergies: ALOE VERA (Allergy, Unknown, 12/23/05) SILK SUTURES (Adverse Reaction, Unknown, BODY REJECTS SUTURES, 10/07/13) Home Medications Albuterol Sulfate 2.5 Mg/3 Ml Vial.neb, 2.5 MG IH TID, (Reported) USES THIS ALONG WITH IPRATROPIUM SOLUTION Albuterol Sulfate 8.5 Gm Hfa.aer.ad, 2 PUFF IH EVERY 4-6 HOURS PRN for WHEEZING, (Reported) Alprazolam 1 Mg Tablet, 1 MG PO Q8H PRN for ANXIETY, (Reported) Calcium Carbonate/Vitamin D3 1 Each Tablet, 1 TAB PO BID, (Reported) Diltiazem HCl 120 Mg Capsule.er, 120 MG PO DAILY, (Reported) Fenofibrate Nanocrystallized 145 Mg Tablet, 145 MG PO DAILY, (Reported) Furosemide 80 Mg Tablet, 40-80 MG PO DAILY, (Reported) TAKES 1/2 TO 1 OF A (80 MG) TABLET Hydrocodone/Acetaminophen 1 Each Tablet, 1 TAB PO EVERY 6-8 HOURS PRN for PAIN, (Reported) Hyoscyamine Sulfate 0.125 Mg Tab.rapdis, 0.125 MG SL BID PRN for ABDOMINAL PAIN, (Reported) Ipratropium Colt 0.2 Mg/1 Ml Solution, 1 VIAL NEB TID, (Reported) USES ALONG WITH ALBUTEROL SOLUTION Loratadine 10 Mg Tablet, 10 MG PO DAILY, (Reported) Montelukast Sodium 10 Mg Tablet, 10 MG PO HS, (Reported) Pantoprazole Sodium 40 Mg Tablet.dr, 40 MG PO DAILY, (Reported) Potassium Chloride 10 Meq Tablet.er, 20 MEQ PO TID, (Reported) TAKES 2 (10 MEQ) TABLETS Promethazine HCl 25 Mg Tablet, 25 MG PO Q6H PRN for NAUSEA/VOMITING, (Reported) Warfarin Sodium 5 Mg Tablet, 5 MG PO DAILY @ 1800, (Reported) Constitutional: no symptoms reported, see HPI Musculoskeletal: see HPI, joint pain, muscle pain (left calf) Past Eqftgmp-Pnpnti-Ehhran Hx Patient Social History Alcohol Use: Denies Use Recreational Drug Use: No (15 yrs ago---IV drug user including Cocaine-CLEAN SINCE 1994) Smoking Status: Never a Smoker Type Used: Cigarettes Former Smoker/When Quit: May 13, 2002 2nd Hand Smoke Exposure: No Recent Foreign Travel: No Contact w/Someone Who Travel: No Recent Infectious Disease Expo: No Recent Hopitalizations: No Immunizations Up To Date Tetanus Booster (TDap): Less than 5yrs PED Vaccines UTD: No Date of Pneumonia Vaccine: Sep 05, 2010 Date of Influenza Vaccine: Mar 11, 2012 Seasonal Allergies Seasonal Allergies: Yes Surgeries HX Surgeries: Yes (shoulder scope, knee scope, dnc, trop ease filter, ) Surgeries: Abdominal, Adenoidectomy, Section, Gallbladder, Hysterectomy, Orthopedic, Tonsillectomy, Vascular Surgery Respiratory Hx Respiratory Disorders: Yes (O2 AT NIGHT 2-3L) Respiratory Disorders: Asthma, Pneumonia, Chronic Bronchitis, Pulmonary Embolism, Sleep Apnea, COPD, Emphysema Cardiovascular Hx Cardiac Disorders: Yes (VENA CAVA FILTER 2009; VARICOSE VEINS WITH VENOUS STASIS ULCERS) Cardiac Disorders: Chronic Edema/Swelling, Deep Vein Thrombosis, High Cholesterol, Hypertension, Peripheral Vascular Neurological Hx Neurological Disorders: No 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 System Hx 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 Disorders: No Sexually Transmitted Disease: No HIV/AIDS: No 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 Disorders: Denies 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 Hx 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 Disorders: Yes 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 Disorders: Bladder Infection Gastrointestinal Hx Gastrointestinal Disorders: Yes Gastrointestinal Disorders: Colitis, Gastroesophageal Reflux, Chronic Constipation, Diverticulosis, Polyps, Hiatal Hernia, Irritable Bowel Musculoskeletal Hx Musculoskeletal Disorders: Yes Musculoskeletal Disorders: Arthritis Endocrine Hx Endocrine Disorders: Yes (PRE-DIABETIC ) HEENT HX ENT Disorders: Yes (GLASSES) HEENT Disorders: Tinnitis Loss of Vision: Bilateral Hearing Impairment: Hard of Hearing Cancer Hx Cancer: No Psychosocial Hx Psychiatric Problems: Yes Behavioral Health Disorders: Anxiety Integumentary HX Skin/Integumentary Disorder: Yes (CHRONIC VENOUS STASIS CHANGES/VENOUS STASIS ULCERS) Skin/Integumentary Disorders: Recent Skin Changes Blood Transfusions Hx Blood Disorders: Yes (HX OF DVT'S/ P.E.'S; PROBABLE PROTEIN C DEFICIENCY) Adverse Reaction to a Blood Tr: No (HAS HAD BLOOD WITH NO PROBLEMS) Reviewed Nursing Assessment Reviewed/Agree w Nursing PMH: Yes Family Medical History Significant Family History: Cancer, COPD, Vascular Disease Family Medial History: Alcoholism Alcoholism Arthritis Asthma Cancer Cancer of colon Cancer of mouth Cardiovascular disease Cataract Cataracts Chest pain Colon cancer Completed stroke Diabetes mellitus Family history: Allergy Family history: Arthritis Family history: Asthma Family history: Cardiovascular disease Family history: Coronary thrombosis Family history: Diabetes mellitus Family history: Gastrointestinal disease Family history: Hypertension Family history: Thyroid disorder Headache Hearing loss Heart disease History of - anemia History of - respiratory disease Hypercholesterolemia Hypercholesterolemia Infertile Malignant neoplasm of lung Myocardial infarction Myocardial infarction Psychotic disorder Respiratory disorder Stroke No Family History of: AIDS Abdominal aortic aneurysm Abdominal aortic aneurysm Sawyer's disease Sawyer's disease Alzheimer's disease Aphasia Aphasia Congenital disease Congenital heart disease Congenital heart disease Congestive heart failure Coronary thrombosis Cystic fibrosis Cystic fibrosis Deafness or hearing loss Dementia Dementia Drug abuse Dysphagia Dysphasia Family history: Alzheimer's disease Family history: Breast disease Family history: Glaucoma Family history: Osteoporosis Fibrocystic disease of breast Gastroenteritis Glaucoma Headache disorder Hereditary disease History of - disorder History of drug abuse Human immunodeficiency virus (HIV) seropositivity Infertility Kidney disease Kidney disease Neoplasm Not obtainable due to adoption Osteoporosis Parkinson's disease Parkinson's disease Prostate cancer Psychosocial problem Seizure disorder Seizure disorder Severe allergy Thyroid disease Tuberculosis Tuberculosis Visual disorder Visual impairment Physical Exam Vital Signs Vital Sign - Last 12Hours 12/16/16 18:44 Temp 97.6 Pulse 88 Resp 18 B/P (MAP) 149/52 Pulse Ox 95 O2 Delivery Room Air Capillary Refill : Less Than 3 Seconds General Appearance: WD/WN, no apparent distress Neck: non-tender, full range of motion, supple, normal inspection Cardiovascular: normal peripheral pulses, no edema, no murmur Respiratory: chest non-tender, lungs clear, normal breath sounds Gastrointestinal: normal bowel sounds, non tender, soft Hips: bilateral hip non-tender, bilateral hip normal inspection, bilateral hip normal range of motion Knees: left knee normal range of motion, left knee joint effusion, left knee pain, left knee soft tissue tenderness (popliteal cyst) Neurologic/Tendon: normal sensation, normal motor functions, normal tendon functions Neurologic/Psychiatric: no motor/sensory deficits, alert, normal mood/affect Skin: normal color, warm/dry Comments Pedal pulses 2+ and symmetric, positive Homans sign on the left. Left knee exam full range of motion, negative Chary. No ligamentous instability. Medial gastroc tenderness on the left. Full range of motion to the left ankle Progress/Results/Core Measures Results/Orders Lab Results Laboratory Tests Test 12/16/16 19:25 Range/Units Prothrombin Time 22.8 H 12.2-14.7 SEC INR Comment 2.0 H 0.8-1.4 Activated Partial Thromboplast Time 27 24-35 SEC My Orders Orders - STEPHANIE GREENWOOD Us Venous Lower Ext Lt (12/16/16 19:09) Knee, Left, 3 Views (12/16/16 19:09) Protime With Inr (12/16/16 19:09) Partial Thromboplastin Time (12/16/16 19:09) Vital Signs/I&O Vital Sign - Last 12Hours 12/16/16 12/16/16 18:44 20:40 Temp 97.6 97.6 Pulse 88 83 Resp 18 18 B/P (MAP) 149/52 Pulse Ox 95 94 O2 Delivery Room Air Room Air Blood Pressure Mean: 84 Diagnostic Imaging Diagonstic Imaging: Xray Plain Films/CT/US/NM/MRI: knee Comments NAME: TRAYSUJEY MED REC#: [id number] PT STATUS: REG ER : 1960 PHYSICIAN: STEPHANIE GREENWOOD ADMIT DATE: 12/16/16/ER Signed Date of Exam: 12/16/16 KNEE, LEFT, 3 VIEWS INDICATION: Left knee pain. FINDINGS: Three views of the left knee show no fracture, dislocation, or other acute bony abnormality. There is narrowing of the medial and patellofemoral compartments with mild spurring. There is a small effusion. IMPRESSION: There are mild degenerative changes present with no acute abnormality seen. Dictated by: Dictated on workstation # [id number] Dict: 12/16/161920 Trans: 12/16/161931 Interpreted by: AURORA URENA MD Electronically signed by: AURORA URENA MD 12/16/161931 Reviewed: Reviewed by Me Diagonstic Imaging: Ultrasound Plain Films/CT/US/NM/MRI: leg Comments NAME: SUJEY FELIZ [facility] REC#: [id number] PT STATUS: DEP ER : 1960 PHYSICIAN: STEPHANIE GREENWOOD ADMIT DATE: 12/16/16/ER Signed Date of Exam: 12/16/16 US VENOUS LOWER EXT LT PROCEDURE: US left lower extremity venous. TECHNIQUE: Multiple real-time grayscale images were obtained over the left lower extremity in various projections. Additional duplex Doppler and color Doppler images were also obtained. INDICATION: Left leg pain and swelling. History of DVTs. Examination of the left leg shows normal augmentation, compression and color Doppler flow with no deep venous thrombosis or other abnormality seen. IMPRESSION: No deep venous thrombosis is seen. Dictated by: Dictated on workstation # [id number] Dict: 12/16/162014 Trans: 12/16/162043 Interpreted by: AURORA URENA MD Electronically signed by: AURORA URENA MD 12/16/162043 Reviewed: Reviewed/Discussed (with air conditioning technician) Departure Impression Impression: Primary Impression: Synovial cyst of popliteal space [Parekh], left knee Additional Impression: Gastrocnemius strain, left Qualified Codes: S86.112A - Strain of other muscle(s) and tendon(s) of posterior muscle group at lower leg level, left leg, initial encounter Disposition: 01 HOME, SELF-CARE Condition: Improved Departure-Patient Inst. Decision time for Depature: 20:00 Referrals: LEAH WOLF MD (PCP/Family) Primary Care Physician Patient Instructions: Calf Stretches, Knee Sprain (DC) Add. Discharge Instructions: Gentle range of motion for the left knee & ankle Alternate heat and ice as tolerated. Consider evaluation by orthopedics if not improving. Follow-up with Dr. Wolf if symptoms are not improving in 2-3 days. Return to emergency department if symptoms worsen. All discharge instructions reviewed with patient and/or family. Voiced understanding. Copy Copies To 1: LEAH WOLF MD, AMY ARNP Dec 16, 2016 19:59
--- NOTE | 2016-12-16 20:17 | Diagnostic Imaging Report ---
PROCEDURE: US left lower extremity venous. TECHNIQUE: Multiple real-time grayscale images were obtained over the left lower extremity in various projections. Additional duplex Doppler and color Doppler images were also obtained. INDICATION: Left leg pain and swelling. History of DVTs. Examination of the left leg shows normal augmentation, compression and color Doppler flow with no deep venous thrombosis or other abnormality seen. IMPRESSION: No deep venous thrombosis is seen. Dictated by: Dictated on workstation # [id number]
[2016-12-16 20:40] VITALS: BP 132/93
== END 2016-12-16 20:36 | disposition home or self-care (01) ==
LOC: EDUNIT# 18:34 → ER 18:36
DX: S86.112A Strain of other muscle(s) and tendon(s) of posterior muscle group at lower leg level, left leg, initial encounter (principal); M71.22 Synovial cyst of popliteal space [Baker], left knee; F41.9 Anxiety disorder, unspecified; K21.9 Gastro-esophageal reflux disease without esophagitis; K59.09 Other constipation; R60.9 Edema, unspecified; E78.00 Pure hypercholesterolemia, unspecified; I10 Essential (primary) hypertension; J43.9 Emphysema, unspecified; J45.909 Unspecified asthma, uncomplicated; Z87.891 Personal history of nicotine dependence; Z79.01 Long term (current) use of anticoagulants; Z90.710 Acquired absence of both cervix and uterus; Z86.718 Personal history of other venous thrombosis and embolism; X58.XXXA Exposure to other specified factors, initial encounter
CPT/HCPCS: 36415; 73562; 85610; 85730; 99283

== ENCOUNTER → 2016-12-25 | Outpatient (CLI) | payer MEDICAID ==
--- NOTE | 2016-12-25 20:49 | Diagnostic Imaging Report ---
EXAMINATION: Unilateral diagnostic right mammogram. INDICATION: Abnormal screening mammogram. The current study was also evaluated with a Computer Aided Detection (CAD) system. FINDINGS: The recent screening mammogram performed on 12/10/2016 noted a small 6 mm density in the lateral aspect of the right breast. This finding still seems to persist on the compression view of this area although is not as conspicuous on the rolled views. This finding cannot be identified with certainty on the true lateral view. I would recommend that ultrasound be performed for further study. IMPRESSION: Ultrasound would be recommended for further evaluation of the small nodular density in the far lateral aspect of the right breast. ACR BI-RADS Category 0: Incomplete. (Needs additional imaging evaluation). Result letter will be mailed to the patient. Note: At least 10% of breast cancer is not imaged by mammography. Dictated by: Dictated on workstation # [id number]
--- NOTE | 2016-12-25 20:57 | Diagnostic Imaging Report ---
EXAMINATION: Ultrasound of The right breast. INDICATION: Abnormal mammogram. FINDINGS: The screening mammogram performed on 12/10/2016 noted a small nodular density along the lateral aspect of the right breast. This finding did not seem as conspicuous on the rolled views performed on the diagnostic exam performed in conjunction with this study. On this exam, in the 7:30 position of the breast, roughly 5 cm from the nipple, there is a 7 x 5 x 6 mm fairly well-circumscribed hyperechoic area with a small hypoechoic center. This finding is avascular. This could represent a small hematoma, although the patient reports no injury to the breast in this area. The possibility that this is related to a lipoma should also be considered. I am not certain that this finding and the density seen on the screening mammogram are one and the same. There is no solid mass to suggest malignancy, but I would recommend that a short-term (three-month) follow-up mammogram and ultrasound exam of the right breast be obtained for further study. IMPRESSION: There is a small avascular predominantly hyperechoic lesion in the 7:30 position of the right breast. Whether this corresponds to the density seen on mammogram is not certain. There is no evidence of malignancy. Recommendations as above. ACR BI-RADS Category 3: Probably benign findings. Dictated by: Dictated on workstation # [id number]
== END ==
LOC: RAD 08:27
PROVIDERS: ATTEND Family Medicine
DX: N64.89 Other specified disorders of breast (principal)

== ENCOUNTER 2017-01-01 21:36 | Emergency (ER) | payer MEDICAID ==
[~2017-01-01] VITALS: Ht 165.1 cm; Wt 98.4 kg
[~2017-01-01 21:36] MED LIST changes: +AZIT250T12 PO; -AZIT250T5 PO
[2017-01-01] MEDS ORDERED: RT-ALBUTEROL/IPRATROPIUM 3 ML (DUONEB) VIAL ONE (22:05)
[2017-01-01] MEDS ORDERED: methylPREDNISolone 125 MG (Solu-MEDROL) VIAL IVP ONE (22:15)
[2017-01-01] MEDS ORDERED: RT-ALBUTEROL/IPRATROPIUM 3 ML (DUONEB) VIAL INH ONE (22:15)
[2017-01-01 22:21] LABS: BASOPHILS # (AUTO) 0.1 10^3/uL (0.0-0.1); BASOPHILS % (AUTO) 1 % (0-10); EOSINOPHILS # (AUTO) 0.6 10^3/uL (0.0-0.3); EOSINOPHILS % (AUTO) 6 % (0-10); LYMPHOCYTES # (AUTO) 2.6 X 10^3 (1.0-4.0); LYMPHOCYTES % (AUTO) 28 % (12-44); MEAN CORPUSCULAR HEMOGLOBIN 28 PG (25-34); MEAN CORPUSCULAR HGB CONC 32 G/DL (32-36); MEAN CORPUSCULAR VOLUME 87 FL (80-99); MEAN PLATELET VOLUME 9.1 FL (7.4-10.4); MONOCYTES # (AUTO) 0.8 X 10^3 (0.0-1.0); MONOCYTES % (AUTO) 9 % (0-12); NEUTROPHILS # (AUTO) 5.4 X 10^3 (1.8-7.8); NEUTROPHILS % (AUTO) 57 % (42-75); PLATELET COUNT 291 10^3/uL (130-400); RED BLOOD COUNT 4.58 10^6/uL (4.35-5.85); WHITE BLOOD COUNT 9.5 10^3/uL (4.3-11.0)
[2017-01-01 22:33] LABS: ALBUMIN 3.7 GM/DL (3.2-4.5); BILIRUBIN,TOTAL 0.4 MG/DL (0.1-1.0); CALCIUM 9.2 MG/DL (8.5-10.1); CREATININE SERUM 1.09 MG/DL (0.60-1.30); POTASSIUM 3.7 MMOL/L (3.6-5.0); TOTAL PROTEIN 7.2 GM/DL (6.4-8.2); hs C REACTIVE PROTEIN 0.32 MG/DL (0.00-0.50)
[2017-01-02 00:23] LABS: INR 2.1 (0.8-1.4); PROTHROMBIN TIME PATIENT 23.6 SEC (12.2-14.7)
[2017-01-02] MEDS ORDERED: PRD20T PO (00:55)
--- NOTE | 2017-01-02 00:57 | ED Respiratory ---
General Chief Complaint: Respiratory Problems Stated Complaint: SOB Nursing Triage Note: Pt developed respiratory issues since end of November and compleyed 9 day Prednisone taper and strated Levaquin for 4-5 days then switched to Cefzil 500mg bid for 7 days. Pt also had recent UTI resistant to Levaquin. Cough with thick secretions, wheezing audible Source: patient, old records Exam Limitations: no limitations History of Present Illness Time seen by provider: 21:58 Initial Comments This 56-year-old woman finished a round of antibiotics and a steroid taper a couple of weeks ago. She has significant problems with COPD. She reports having a productive cough and tight wheezing. She denies fever. She is no longer a smoker. She was seen in this ER recently for left leg pain. Ultrasound was negative for DVT. She was felt to possibly have a popliteal cyst. Allergies and Home Medications Allergies Coded Allergies: aspirin (Verified Allergy, Severe, ANAPHYLAXIS, 07/30/11) ibuprofen (Verified Allergy, Severe, ANAPHYLAXIS, 07/30/11) ketorolac (Verified Allergy, Severe, ANAPHYLAXIS, 06/06/16) tetanus and diphtheria toxoids (Unverified Allergy, Severe, ANAPHYLAXIS, ) aloe (Verified Allergy, Mild, RASH, 07/30/11) latex (Verified Allergy, Mild, RASH, 06/06/16) OCCASIONALLY IS IRRITATING SKIN iodine (Verified Adverse Reaction, Unknown, 06/06/16) Patient states she got dizzy, diaphoretic and saw stars. Uncoded Allergies: ALOE VERA (Allergy, Unknown, 12/23/05) SILK SUTURES (Adverse Reaction, Unknown, BODY REJECTS SUTURES, 10/07/13) Home Medications Albuterol Sulfate 2.5 Mg/3 Ml Vial.neb, 2.5 MG IH TID, (Reported) USES THIS ALONG WITH IPRATROPIUM SOLUTION Albuterol Sulfate 8.5 Gm Hfa.aer.ad, 2 PUFF IH EVERY 4-6 HOURS PRN for WHEEZING, (Reported) Alprazolam 1 Mg Tablet, 1 MG PO Q8H PRN for ANXIETY, (Reported) Calcium Carbonate/Vitamin D3 1 Each Tablet, 1 TAB PO BID, (Reported) Diltiazem HCl 120 Mg Capsule.er, 120 MG PO DAILY, (Reported) Fenofibrate Nanocrystallized 145 Mg Tablet, 145 MG PO DAILY, (Reported) Furosemide 80 Mg Tablet, 40-80 MG PO DAILY, (Reported) TAKES 1/2 TO 1 OF A (80 MG) TABLET Hydrocodone/Acetaminophen 1 Each Tablet, 1 TAB PO EVERY 6-8 HOURS PRN for PAIN, (Reported) Hyoscyamine Sulfate 0.125 Mg Tab.rapdis, 0.125 MG SL BID PRN for ABDOMINAL PAIN, (Reported) Ipratropium [place] 0.2 Mg/1 Ml Solution, 1 VIAL NEB TID, (Reported) USES ALONG WITH ALBUTEROL SOLUTION Loratadine 10 Mg Tablet, 10 MG PO DAILY, (Reported) Montelukast Sodium 10 Mg Tablet, 10 MG PO HS, (Reported) Pantoprazole Sodium 40 Mg Tablet.dr, 40 MG PO DAILY, (Reported) Potassium Chloride 10 Meq Tablet.er, 20 MEQ PO TID, (Reported) TAKES 2 (10 MEQ) TABLETS Prednisone 20 Mg Tab, 40 MG PO DAILY, #8 Prescribed by: ALVA LAMAR on 01/02/17 0055 Promethazine HCl 25 Mg Tablet, 25 MG PO Q6H PRN for NAUSEA/VOMITING, (Reported) Warfarin Sodium 5 Mg Tablet, 5 MG PO DAILY @ 1800, (Reported) Constitutional: no symptoms reported EENTM: no symptoms reported Respiratory: see HPI Cardiovascular: no symptoms reported Gastrointestinal: no symptoms reported 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: no symptoms reported Musculoskeletal: see HPI Skin: no symptoms reported Psychiatric/Neurological: No Symptoms Reported Hematologic/Lymphatic: No Symptoms Reported Immunological/Allergic: no symptoms reported Past Secslpn-Ymopjk-Qbucoz Hx Patient Social History Alcohol Use: Denies Use Recreational Drug Use: No (15 yrs ago---IV drug user including Cocaine-CLEAN SINCE 1994) Smoking Status: Former Smoker Type Used: Cigarettes Former Smoker, Quit: September 12, 2003 2nd Hand Smoke Exposure: No Recent Foreign Travel: No Contact w/Someone Who Travel: No Recent Infectious Disease Expo: No Recent Hopitalizations: No Immunizations Up To Date Tetanus Booster (TDap): Less than 5yrs PED Vaccines UTD: No Date of Pneumonia Vaccine: Sep 05, 2010 Date of Influenza Vaccine: Mar 11, 2012 Seasonal Allergies Seasonal Allergies: Yes Surgeries History of Surgeries: Yes (shoulder scope, knee scope, d & c, trop ease filter , ) Surgeries: Abdominal, Adenoidectomy, Section, Gallbladder, Hysterectomy, Orthopedic, Tonsillectomy, Vascular Surgery Respiratory History of Respiratory Disorde: Yes (O2 AT NIGHT 2-3L) Respiratory Disorders: Asthma, Pneumonia, Chronic Bronchitis, Pulmonary Embolism, Sleep Apnea, COPD, Emphysema Currently Using BIPAP: No Cardiovascular History of Cardiac Disorders: Yes (VENA CAVA FILTER 2009; VARICOSE VEINS WITH VENOUS STASIS ULCERS) Cardiac Disorders: Chronic Edema/Swelling, Deep Vein Thrombosis, High Cholesterol, Hypertension, Peripheral Vascular Neurological History of Neurological Disord: No 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 System Hx 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 Disorders: No Sexually Transmitted Disease: No HIV/AIDS: No 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 Disorders: Denies ALLERGY PHYSICIAN History: Hysterectomy 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 History of 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 Disor: Yes (on recent antibiotic) 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 Disorders: Bladder Infection Gastrointestinal History of Gastrointestinal Di: Yes Gastrointestinal Disorders: Colitis, Gastroesophageal Reflux, Chronic Constipation, Diverticulosis, Polyps, Hiatal Hernia, Irritable Bowel Musculoskeletal History of Musculoskeletal Dis: Yes Musculoskeletal Disorders: Arthritis Endocrine History of Endocrine Disorders: Yes (PRE-DIABETIC ) HEENT History of HEENT Disorders: Yes HEENT Disorders: Tinnitis Loss of Vision: Bilateral Hearing Impairment: Hard of Hearing Cancer History of Cancer: No Did You Recieve Any Treatments: No Psychosocial History of Psychiatric Problem: Yes Behavioral Health Disorders: Anxiety Integumentary History of Skin or Integumenta: Yes (CHRONIC VENOUS STASIS CHANGES/VENOUS STASIS ULCERS) Skin/Integumentary Disorders: Recent Skin Changes Blood Transfusions History of Blood Disorders: Yes (HX OF DVT'S/ P.E.'S; PROBABLE PROTEIN C DEFICIENCY) Adverse Reaction to a Blood Tr: No (HAS HAD BLOOD WITH NO PROBLEMS) Family Medical History Significant Family History: Cancer, COPD, Vascular Disease Family Medial History: Alcoholism Alcoholism Arthritis Asthma Cancer Cancer of colon Cancer of mouth Cardiovascular disease Cataract Cataracts Chest pain Colon cancer Completed stroke Diabetes mellitus Family history: Allergy Family history: Arthritis Family history: Asthma Family history: Cardiovascular disease Family history: Coronary thrombosis Family history: Diabetes mellitus Family history: Gastrointestinal disease Family history: Hypertension Family history: Thyroid disorder Headache Hearing loss Heart disease History of - anemia History of - respiratory disease Hypercholesterolemia Hypercholesterolemia Infertile Malignant neoplasm of lung Myocardial infarction Myocardial infarction Psychotic disorder Respiratory disorder Stroke No Family History of: AIDS Abdominal aortic aneurysm Abdominal aortic aneurysm Hydes's disease Fernando's disease Alzheimer's disease Aphasia Aphasia Congenital disease Congenital heart disease Congenital heart disease Congestive heart failure Coronary thrombosis Cystic fibrosis Cystic fibrosis Deafness or hearing loss Dementia Dementia Drug abuse Dysphagia Dysphasia Family history: Alzheimer's disease Family history: Breast disease Family history: Glaucoma Family history: Osteoporosis Fibrocystic disease of breast Gastroenteritis Glaucoma Headache disorder Hereditary disease History of - disorder History of drug abuse Human immunodeficiency virus (HIV) seropositivity Infertility Kidney disease Kidney disease Neoplasm Not obtainable due to adoption Osteoporosis Parkinson's disease Parkinson's disease Prostate cancer Psychosocial problem Seizure disorder Seizure disorder Severe allergy Thyroid disease Tuberculosis Tuberculosis Visual disorder Visual impairment Physical Exam Vital Signs Vital Sign - Last 12Hours 01/01/17 21:45 Temp 98.1 Pulse 91 Resp 36 B/P (MAP) 105/67 Pulse Ox 93 O2 Delivery Room Air Capillary Refill : Less Than 3 Seconds General Appearance: WD/WN, mild distress HEENT: PERRL/EOMI, normal ENT inspection Neck: normal inspection Respiratory: no respiratory distress, accessory muscle use, wheezing Cardiovascular: regular rate, rhythm, no edema, no murmur Gastrointestinal: normal bowel sounds, soft Extremities: normal inspection, other (Tenderness behind the left knee) 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, no motor/sensory deficits, alert, normal mood/affect, oriented x 3 Skin: normal color, warm/dry Progress/Results/Core Measures Results/Orders Lab Results Laboratory Tests Test 01/01/17 22:00 01/01/17 22:05 Range/Units White Blood Count 9.5 4.3-11.0 10^3/uL Red Blood Count 4.58 4.35-5.85 10^6/uL Hemoglobin 12.9 11.5-16.0 G/DL Hematocrit 40 35-52 % Mean Corpuscular Volume 87 80-99 FL Mean Corpuscular Hemoglobin 28 25-34 PG Mean Corpuscular Hemoglobin Concent 32 32-36 G/DL Red Cell Distribution Width 15.0 H 10.0-14.5 % Platelet Count 291 130-400 10^3/uL Mean Platelet Volume 9.1 7.4-10.4 FL Neutrophils (%) (Auto) 57 42-75 % Lymphocytes (%) (Auto) 28 12-44 % Monocytes (%) (Auto) 9 0-12 % Eosinophils (%) (Auto) 6 0-10 % Basophils (%) (Auto) 1 0-10 % Neutrophils # (Auto) 5.4 1.8-7.8 X 10^3 Lymphocytes # (Auto) 2.6 1.0-4.0 X 10^3 Monocytes # (Auto) 0.8 0.0-1.0 X 10^3 Eosinophils # (Auto) 0.6 H 0.0-0.3 10^3/uL Basophils # (Auto) 0.1 0.0-0.1 10^3/uL Sodium Level 138 135-145 MMOL/L Potassium Level 3.7 3.6-5.0 MMOL/L Chloride Level 103 98-107 MMOL/L Carbon Dioxide Level 25 21-32 MMOL/L Anion Gap 10 5-14 MMOL/L Blood Urea Nitrogen 12 7-18 MG/DL Creatinine 1.09 0.60-1.30 MG/DL Estimat Glomerular Filtration Rate 52 BUN/Creatinine Ratio 11 Glucose Level 128 H 70-105 MG/DL Calcium Level 9.2 8.5-10.1 MG/DL Total Bilirubin 0.4 0.1-1.0 MG/DL Aspartate Amino Transf (AST/SGOT) 19 5-34 U/L Alanine Aminotransferase (ALT/SGPT) 20 0-55 U/L Alkaline Phosphatase 62 40-136 U/L C-Reactive Protein High Sensitivity 0.32 0.00-0.50 MG/DL Total Protein 7.2 6.4-8.2 GM/DL Albumin 3.7 3.2-4.5 GM/DL Prothrombin Time 23.6 H 12.2-14.7 SEC INR Comment 2.1 H 0.8-1.4 My Orders Orders - ALVA BENJAMIN MD Chest Pa/Lat (2 View) (01/01/17 21:58) Albuterol/Ipra Inhalation Soln (Duoneb I (01/01/17 22:15) Svn Sm Volume Nebulizer Rt-Rfs (01/01/17 22:10) Albuterol/Ipra Inhalation Soln (Duoneb I (01/01/17 22:05) Methylprednisolone Sod Succ (Solu-Medrol (01/01/17 22:15) Cbc With Automated Diff (01/01/17 22:16) Comprehensive Metabolic Panel (01/01/17 22:16) Hs C Reactive Protein (01/01/17 22:16) Saline Lock/Iv-Start (01/01/17 22:16) Protime With Inr (01/02/17 00:12) Iv Push Creative Services Director Ed (01/01/17 ) Medications Given in ED Vital Signs/I&O Vital Sign - Last 12Hours 01/01/17 01/01/17 01/02/17 21:45 22:12 01:03 Temp 98.1 98.1 Pulse 91 112 Resp 36 20 B/P (MAP) 105/67 Pulse Ox 93 92 92 O2 Delivery Room Air Room Air Room Air Blood Pressure Mean: 80 Progress Note : Progress Note Patient demonstrated significant improvement after DuoNeb treatments and Solu- Medrol. Labs and x-ray revealed no evidence for infection. She was started on a short burst of steroids and dismissed to follow-up with Dr. Rogers. She has no appointment scheduled for 2 days from now. INR was therapeutic. Vital signs remained stable. Diagnostic Imaging Diagonstic Imaging: Xray Plain Films/CT/US/NM/MRI: chest Comments Chest x-ray viewed by me and report not yet available. Compared with prior. No acute infiltrates appreciated to suggest pneumonia. Departure Impression Impression: Primary Impression: COPD exacerbation Disposition: HOME, SELF-CARE Condition: Improved Departure-Patient Inst. Decision time for Depature: 00:56 Referrals: LEAH ROGERS MD (PCP/Family) Primary Care Physician Patient Instructions: Chronic Obstructive Pulmonary Disease (COPD), Including Emphysema Add. Discharge Instructions: Continue with prednisone 40 mg daily until otherwise instructed by Dr. Rogers, Return to care if symptoms worsen. Continue with your breathing treatments on a scheduled basis at home. Your INR was in good therapeutic range at 2.1. All discharge instructions reviewed with patient and/or family. Voiced understanding. Scripts Prednisone (Prednisone) 20 Mg Tab 40 MG PO DAILY, #8 TAB Prov: ALVA BENJAMIN MD 01/02/17 ALVA BENJAMIN MD Jan 02, 2017 12:56 am
[2017-01-02 01:03] VITALS: BP 106/84
--- NOTE | 2017-01-02 07:25 | Diagnostic Imaging Report ---
INDICATION: History of asthma and COPD with shortness of breath. Comparison with 09/19/2016, CT scan of the chest. FINDINGS: There is obstructive pulmonary disease with flattening of the diaphragm. No consolidated infiltrates are present. The heart is not enlarged. There is no pulmonary edema. There is no hilar adenopathy. No pneumothorax or pleural effusion. IMPRESSION: Obstructive pulmonary disease with no acute infiltrates demonstrated. Dictated by: Dictated on workstation # [id number]
== END 2017-01-02 01:03 | disposition home or self-care (01) ==
LOC: EDUNIT# 21:36 → ER 21:37
DX: J44.1 Chronic obstructive pulmonary disease with (acute) exacerbation (principal); E78.00 Pure hypercholesterolemia, unspecified; I10 Essential (primary) hypertension; I73.9 Peripheral vascular disease, unspecified; M19.90 Unspecified osteoarthritis, unspecified site; F41.9 Anxiety disorder, unspecified; G47.30 Sleep apnea, unspecified; Z80.0 Family history of malignant neoplasm of digestive organs; Z82.49 Family history of ischemic heart disease and other diseases of the circulatory system; Z86.718 Personal history of other venous thrombosis and embolism; Z95.828 Presence of other vascular implants and grafts; Z87.448 Personal history of other diseases of urinary system; Z87.19 Personal history of other diseases of the digestive system; Z87.09 Personal history of other diseases of the respiratory system; Z79.01 Long term (current) use of anticoagulants; Z87.891 Personal history of nicotine dependence; Z90.89 Acquired absence of other organs; Z87.59 Personal history of other complications of pregnancy, childbirth and the puerperium; Z90.710 Acquired absence of both cervix and uterus
CPT/HCPCS: 36415; 71020; 80053; 85025; 85610; 86141; 94640; 96374

== ENCOUNTER → 2017-02-15 | Outpatient (CLI) | payer MEDICAID ==
[~2017-02-15] MED LIST changes: -AZIT250T12 PO; +AZIT250T5 PO
--- NOTE | 2017-02-15 19:11 | Diagnostic Imaging Report ---
PROCEDURE: CT sinuses without contrast TECHNIQUE: Multiple contiguous axial images were obtained through the sinuses without the use of intravenous contrast. Coronal and sagittal reformations were then performed. INDICATION: Nasal polyps. FINDINGS: There is total obliteration of the right maxillary sinus with mucosal thickening or polyps with widening of the ostiomeatal complex and obliteration of the upper aspect of the nasal cavity anteriorly and complete obliteration of the nasal cavity posteriorly. There is also partial opacification, and mucosal thickening with air-fluid level seen in the left maxillary sinus. There is also opacification of the anterior and mid ethmoidal air cells on both sides and near complete opacification of the left sphenoidal sinus. The right sphenoidal sinus demonstrates mild mucosal thickening. The tissue obliterating the nasal cavity on the right side appears to have an extension posteriorly into the nasopharynx. There is mucosal thickening in the frontal sinuses seen of mild degree. The mastoid air cells and middle ear cavities are clear. IMPRESSION: There is significant sinonasal disease with complete obliteration of the right maxillary sinus and the posterior aspect of the nasal cavities bilaterally suggestive of sinonasal polyposis. There is also an air-fluid level in the left maxillary sinus which could relate to an acute sinusitis component. Dictated by: Dictated on workstation # [id number]
== END ==
LOC: RAD 11:33
PROVIDERS: ATTEND Otolaryngology Otolaryngology/Facial Plastic Surgery
DX: J32.9 Chronic sinusitis, unspecified (principal); J33.9 Nasal polyp, unspecified
CPT/HCPCS: 70486

== ENCOUNTER → 2017-03-07 | Outpatient (CLI) | payer MEDICAID ==
--- NOTE | 2017-03-07 15:44 | Diagnostic Imaging Report ---
INDICATION: Right lower abdominal pain for 2 months KUB at 2:54 PM FINDINGS: The patient has an IVC filter in place. The gallbladder is surgically absent. Bowel gas pattern is normal. There are no pathologic masses or calcifications. IMPRESSION: No acute abnormality is seen in the abdomen. Dictated by: Dictated on workstation # [id number]
== END ==
LOC: RAD 14:22
PROVIDERS: ATTEND Family Medicine
DX: R10.31 Right lower quadrant pain (principal); Z95.828 Presence of other vascular implants and grafts
CPT/HCPCS: 74000

== ENCOUNTER 2017-03-16 11:47 | Emergency (ER) | payer MEDICAID ==
[~2017-03-16] VITALS: Ht 165.1 cm; Wt 98.9 kg
--- NOTE | 2017-03-16 13:07 | ED Lower Extremity ---
General Chief Complaint: Lower Extremity Stated Complaint: L LEG PAIN, SWELLING, REDNESS Nursing Triage Note: PT CO OF PAIN AND SWELLING TO L LOWER EXTREMITY, PT STATES STARTED IN JAN, HAS BEEN HAVING THERAPY, CONSULTED W ORTHO, LEG GETTING WORSE, 10/10 PAIN WHEN WALKING Nursing Sepsis Screen: No Definite Risk Source: patient Exam Limitations: no limitations History of Present Illness Time seen by provider: 13:02 Initial Comments This 56-year-old white female presents with pain and swelling of her left lower extremity. The patient has had a history of thrombophlebitis. The patient is on Coumadin. The patient has been compliant on her medicine. Patient states that she has had previous blood clots. Patient has been going to physical therapy for treatment of her lymphedema. Patient is concerned that she may have developed a thrombophlebitis as the leg is becoming progressively more painful and red. Metastasis is required treatment with antibiotics. Patient denies acute shortness of breath or chest pain. Allergies and Home Medications Allergies Coded Allergies: aspirin (Verified Allergy, Severe, ANAPHYLAXIS, 07/30/11) ibuprofen (Verified Allergy, Severe, ANAPHYLAXIS, 07/30/11) ketorolac (Verified Allergy, Severe, ANAPHYLAXIS, 06/06/16) tetanus and diphtheria toxoids (Unverified Allergy, Severe, ANAPHYLAXIS, ) aloe (Verified Allergy, Mild, RASH, 07/30/11) latex (Verified Allergy, Mild, RASH, 06/06/16) OCCASIONALLY IS IRRITATING SKIN iodine (Verified Adverse Reaction, Unknown, 06/06/16) Patient states she got dizzy, diaphoretic and saw stars. Uncoded Allergies: ALOE VERA (Allergy, Unknown, 12/23/05) SILK SUTURES (Adverse Reaction, Unknown, BODY REJECTS SUTURES, 10/07/13) Home Medications Albuterol Sulfate 2.5 Mg/3 Ml Vial.neb, 2.5 MG IH TID, (Reported) USES THIS ALONG WITH IPRATROPIUM SOLUTION Albuterol Sulfate 8.5 Gm Hfa.aer.ad, 2 PUFF IH EVERY 4-6 HOURS PRN for WHEEZING, (Reported) Alprazolam 1 Mg Tablet, 1 MG PO Q8H PRN for ANXIETY, (Reported) Calcium Carbonate/Vitamin D3 1 Each Tablet, 1 TAB PO BID, (Reported) Diltiazem HCl 120 Mg Capsule.er, 120 MG PO DAILY, (Reported) Fenofibrate Nanocrystallized 145 Mg Tablet, 145 MG PO DAILY, (Reported) Furosemide 80 Mg Tablet, 40-80 MG PO DAILY, (Reported) TAKES 1/2 TO 1 OF A (80 MG) TABLET Hydrocodone/Acetaminophen 1 Each Tablet, 1 TAB PO EVERY 6-8 HOURS PRN for PAIN, (Reported) Hyoscyamine Sulfate 0.125 Mg Tab.rapdis, 0.125 MG SL BID PRN for ABDOMINAL PAIN, (Reported) Ipratropium [place] 0.2 Mg/1 Ml Solution, 1 VIAL NEB TID, (Reported) USES ALONG WITH ALBUTEROL SOLUTION Loratadine 10 Mg Tablet, 10 MG PO DAILY, (Reported) Montelukast Sodium 10 Mg Tablet, 10 MG PO HS, (Reported) Pantoprazole Sodium 40 Mg Tablet.dr, 40 MG PO DAILY, (Reported) Potassium Chloride 10 Meq Tablet.er, 20 MEQ PO TID, (Reported) TAKES 2 (10 MEQ) TABLETS Prednisone 20 Mg Tab, 40 MG PO DAILY, #8 Prescribed by: ALVA LAMAR on 01/02/17 0055 Promethazine HCl 25 Mg Tablet, 25 MG PO Q6H PRN for NAUSEA/VOMITING, (Reported) Warfarin Sodium 5 Mg Tablet, 5 MG PO DAILY @ 1800, (Reported) Constitutional: chills, No fever EENTM: No hearing loss, No vision loss Respiratory: No cough, No short of breath Cardiovascular: No chest pain Gastrointestinal: No abdominal pain, No constipation, No diarrhea, No nausea, No vomiting 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: No dysuria, No frequency Musculoskeletal: No back pain, No other Skin: change in color (left lower extremity has been red and painful.) Psychiatric/Neurological: No Symptoms Reported Past Yqipzpw-Cglxdh-Vbaycd Hx Patient Social History Alcohol Use: Denies Use Recreational Drug Use: No (15 yrs ago---IV drug user including Cocaine-CLEAN SINCE 1994) Smoking Status: Former Smoker Type Used: Cigarettes Former Smoker, Quit: September 12, 2003 2nd Hand Smoke Exposure: No Recent Foreign Travel: No Contact w/Someone Who Travel: No Recent Infectious Disease Expo: No Recent Hopitalizations: No Physical Abuse: No Sexual Abuse: No Immunizations Up To Date Tetanus Booster (TDap): Less than 5yrs PED Vaccines UTD: No Date of Pneumonia Vaccine: Sep 05, 2010 Date of Influenza Vaccine: Mar 11, 2012 Seasonal Allergies Seasonal Allergies: Yes Surgeries History of Surgeries: Yes (shoulder scope, knee scope, d & c, trop ease filter , ) Surgeries: Abdominal, Adenoidectomy, Section, Gallbladder, Hysterectomy, Orthopedic, Tonsillectomy, Vascular Surgery Respiratory History of Respiratory Disorde: Yes (O2 AT NIGHT 2-3L) Respiratory Disorders: Asthma, Pneumonia, Chronic Bronchitis, Pulmonary Embolism, Sleep Apnea, COPD, Emphysema Currently Using BIPAP: No Cardiovascular History of Cardiac Disorders: Yes (VENA CAVA FILTER 2009; VARICOSE VEINS WITH VENOUS STASIS ULCERS) Cardiac Disorders: Chronic Edema/Swelling, Deep Vein Thrombosis, High Cholesterol, Hypertension, Peripheral Vascular Neurological History of Neurological Disord: No 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 System Hx 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 Disorders: No Sexually Transmitted Disease: No HIV/AIDS: No 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 Disorders: Denies 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 History of 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 Disor: Yes (on recent antibiotic) 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 Disorders: Bladder Infection Gastrointestinal History of Gastrointestinal Di: Yes Gastrointestinal Disorders: Colitis, Gastroesophageal Reflux, Chronic Constipation, Diverticulosis, Polyps, Hiatal Hernia, Irritable Bowel Musculoskeletal History of Musculoskeletal Dis: Yes Musculoskeletal Disorders: Arthritis Endocrine History of Endocrine Disorders: Yes (PRE-DIABETIC ) HEENT History of HEENT Disorders: Yes HEENT Disorders: Tinnitis Loss of Vision: Bilateral Hearing Impairment: Hard of Hearing Cancer History of Cancer: No Did You Recieve Any Treatments: No Psychosocial History of Psychiatric Problem: Yes Behavioral Health Disorders: Anxiety Suicide Risk Score: 0 Integumentary History of Skin or Integumenta: Yes (CHRONIC VENOUS STASIS CHANGES/VENOUS STASIS ULCERS) Skin/Integumentary Disorders: Recent Skin Changes Blood Transfusions History of Blood Disorders: Yes (HX OF DVT'S/ P.E.'S; PROBABLE PROTEIN C DEFICIENCY) Adverse Reaction to a Blood Tr: No (HAS HAD BLOOD WITH NO PROBLEMS) Reviewed Nursing Assessment Reviewed/Agree w Nursing PMH: Yes Family Medical History Significant Family History: Cancer, COPD, Vascular Disease Family Medial History: Alcoholism Alcoholism Arthritis Asthma Cancer Cancer of colon Cancer of mouth Cardiovascular disease Cataract Cataracts Chest pain Colon cancer Completed stroke Diabetes mellitus Family history: Allergy Family history: Arthritis Family history: Asthma Family history: Cardiovascular disease Family history: Coronary thrombosis Family history: Diabetes mellitus Family history: Gastrointestinal disease Family history: Hypertension Family history: Thyroid disorder Headache Hearing loss Heart disease History of - anemia History of - respiratory disease Hypercholesterolemia Hypercholesterolemia Infertile Malignant neoplasm of lung Myocardial infarction Myocardial infarction Psychotic disorder Respiratory disorder Stroke No Family History of: AIDS Abdominal aortic aneurysm Abdominal aortic aneurysm Whitehall's disease Fernando's disease Alzheimer's disease Aphasia Aphasia Congenital disease Congenital heart disease Congenital heart disease Congestive heart failure Coronary thrombosis Cystic fibrosis Cystic fibrosis Deafness or hearing loss Dementia Dementia Drug abuse Dysphagia Dysphasia Family history: Alzheimer's disease Family history: Breast disease Family history: Glaucoma Family history: Osteoporosis Fibrocystic disease of breast Gastroenteritis Glaucoma Headache disorder Hereditary disease History of - disorder History of drug abuse Human immunodeficiency virus (HIV) seropositivity Infertility Kidney disease Kidney disease Neoplasm Not obtainable due to adoption Osteoporosis Parkinson's disease Parkinson's disease Prostate cancer Psychosocial problem Seizure disorder Seizure disorder Severe allergy Thyroid disease Tuberculosis Tuberculosis Visual disorder Visual impairment Physical Exam Vital Signs Vital Sign - Last 12Hours 03/16/17 11:58 Temp 97.2 Pulse 88 Resp 18 B/P (MAP) 162/108 Pulse Ox 96 Capillary Refill : Less Than 3 Seconds General Appearance: WD/WN, mild distress HEENT: normal ENT inspection Neck: normal inspection Cardiovascular: regular rate, rhythm Respiratory: chest non-tender, lungs clear Gastrointestinal: normal bowel sounds, non tender Back: normal inspection Hips: bilateral hip non-tender Legs: left leg pain, left leg soft tissue tenderness, left leg swelling Knees: bilateral knee non-tender Ankles: bilateral ankle non-tender, bilateral ankle normal inspection Feet: bilateral foot non-tender, bilateral foot normal inspection Neurologic/Tendon: normal sensation, normal motor functions, normal tendon functions Neurologic/Psychiatric: no motor/sensory deficits, alert, normal mood/affect, oriented x 3 Skin: other (there is erythema with stasis changes to the patient's left leg and calf.) Progress/Results/Core Measures Results/Orders Lab Results Laboratory Tests Test 03/16/17 13:05 Range/Units White Blood Count 6.5 4.3-11.0 10^3/uL Red Blood Count 4.37 4.35-5.85 10^6/uL Hemoglobin 12.5 11.5-16.0 G/DL Hematocrit 39 35-52 % Mean Corpuscular Volume 88 80-99 FL Mean Corpuscular Hemoglobin 29 25-34 PG Mean Corpuscular Hemoglobin Concent 32 32-36 G/DL Red Cell Distribution Width 15.1 H 10.0-14.5 % Platelet Count 300 130-400 10^3/uL Mean Platelet Volume 9.0 7.4-10.4 FL Neutrophils (%) (Auto) 55 42-75 % Lymphocytes (%) (Auto) 28 12-44 % Monocytes (%) (Auto) 8 0-12 % Eosinophils (%) (Auto) 9 0-10 % Basophils (%) (Auto) 0 0-10 % Neutrophils # (Auto) 3.6 1.8-7.8 X 10^3 Lymphocytes # (Auto) 1.8 1.0-4.0 X 10^3 Monocytes # (Auto) 0.5 0.0-1.0 X 10^3 Eosinophils # (Auto) 0.6 H 0.0-0.3 10^3/uL Basophils # (Auto) 0.0 0.0-0.1 10^3/uL Prothrombin Time 18.5 H 12.2-14.7 SEC INR Comment 1.5 H 0.8-1.4 Sodium Level 139 135-145 MMOL/L Potassium Level 3.4 L 3.6-5.0 MMOL/L Chloride Level 105 98-107 MMOL/L Carbon Dioxide Level 26 21-32 MMOL/L Anion Gap 8 5-14 MMOL/L Blood Urea Nitrogen 7 7-18 MG/DL Creatinine 0.64 0.60-1.30 MG/DL Estimat Glomerular Filtration Rate > 60 BUN/Creatinine Ratio 11 Glucose Level 90 70-105 MG/DL Calcium Level 9.2 8.5-10.1 MG/DL Total Bilirubin 0.4 0.1-1.0 MG/DL Aspartate Amino Transf (AST/SGOT) 19 5-34 U/L Alanine Aminotransferase (ALT/SGPT) 18 0-55 U/L Alkaline Phosphatase 68 40-136 U/L Total Protein 7.2 6.4-8.2 GM/DL Albumin 3.8 3.2-4.5 GM/DL My Orders Orders - FELIBERTO LEE MD Cbc With Automated Diff (03/16/17 13:00) Comprehensive Metabolic Panel (03/16/17 13:00) Us Venous Lower Ext Lt (03/16/17 13:00) Protime With Inr (03/16/17 13:00) Saline Lock/Iv-Start (03/16/17 13:00) Vital Signs/I&O Vital Sign - Last 12Hours 03/16/17 11:58 Temp 97.2 Pulse 88 Resp 18 B/P (MAP) 162/108 Pulse Ox 96 Blood Pressure Mean: 126 Progress Note : Time: 13:12 Progress Note I ordered ultrasound patient's left calf as well as an INR. In the event of the Doppler study is negative she will need treatment for an early cellulitis of the left leg. The patient's INR was 1-1/2. Her ultrasound failed to demonstrate evidence of thrombosis. The remainder of the lab was unremarkable. I discussed findings with patient. I will initiate Augmentin for her early cellulitis of the left leg. She will continue with the conservative treatment for her thrombophlebitis with stockings, elevation, moist packs, and take her pain meds which she has at home. The patient's INR was 1.5. I asked the patient to increase tonight from her usual 4 mg dose to 5 mg. She'll go back to 4 mg then on Saturday and Saturday and have her INR rechecked. I asked that she follow up with her primary care physician early next week. Departure Impression Impression: Primary Impression: Cellulitis Qualified Codes: L03.116 - Cellulitis of left lower limb Disposition: HOME, SELF-CARE Condition: Unchanged Departure-Patient Inst. Decision time for Depature: 14:31 Referrals: LEAH WOLF MD (PCP/Family) Primary Care Physician Patient Instructions: Cellulitis (Skin Infection), Adult (DC) Add. Discharge Instructions: Augmentin as prescribed. Continue with physical therapy to the left leg. Increase your Coumadin to 5 mg tonight. Resume your 4 mg daily tomorrow night. Follow up closely with her doctor on Saturday. Return if any problems or questions. All discharge instructions reviewed with patient and/or family. Voiced understanding. FELIBERTO LEE MD Mar 16, 2017 13:07
[2017-03-16 13:17] LABS: BASOPHILS % (AUTO) 0 % (0-10); EOSINOPHILS # (AUTO) 0.6 10^3/uL (0.0-0.3); EOSINOPHILS % (AUTO) 9 % (0-10); LYMPHOCYTES # (AUTO) 1.8 X 10^3 (1.0-4.0); LYMPHOCYTES % (AUTO) 28 % (12-44); MEAN CORPUSCULAR HEMOGLOBIN 29 PG (25-34); MEAN CORPUSCULAR HGB CONC 32 G/DL (32-36); MEAN CORPUSCULAR VOLUME 88 FL (80-99); MONOCYTES # (AUTO) 0.5 X 10^3 (0.0-1.0); MONOCYTES % (AUTO) 8 % (0-12); NEUTROPHILS # (AUTO) 3.6 X 10^3 (1.8-7.8); NEUTROPHILS % (AUTO) 55 % (42-75); PLATELET COUNT 300 10^3/uL (130-400); RED BLOOD COUNT 4.37 10^6/uL (4.35-5.85); RED CELL DISTRIBUTION WIDTH 15.1 % (10.0-14.5); WHITE BLOOD COUNT 6.5 10^3/uL (4.3-11.0)
[2017-03-16 13:26] LABS: INR 1.5 (0.8-1.4); PROTHROMBIN TIME PATIENT 18.5 SEC (12.2-14.7)
[2017-03-16 13:34] LABS: ALANINE AMINOTRANSFERASE 18 U/L (0-55); ALBUMIN 3.8 GM/DL (3.2-4.5); ANION GAP 8 MMOL/L (5-14); ASPARTATE AMINO TRANSFERASE 19 U/L (5-34); BILIRUBIN,TOTAL 0.4 MG/DL (0.1-1.0); BLOOD UREA NITROGEN 7 MG/DL (7-18); BUN/CREATININE RATIO 11; CALCIUM 9.2 MG/DL (8.5-10.1); CARBON DIOXIDE 26 MMOL/L (21-32); CHLORIDE 105 MMOL/L (98-107); CREATININE SERUM 0.64 MG/DL (0.60-1.30); GFR ESTIMATED > 60; GLUCOSE 90 MG/DL (70-105); POTASSIUM 3.4 MMOL/L (3.6-5.0); SODIUM 139 MMOL/L (135-145); TOTAL PROTEIN 7.2 GM/DL (6.4-8.2)
--- NOTE | 2017-03-16 13:54 | Diagnostic Imaging Report ---
PROCEDURE: US left lower extremity venous. TECHNIQUE: Multiple real-time grayscale images were obtained over the left lower extremity in various projections. Additional duplex Doppler and color Doppler images were also obtained. INDICATION: Left lower extremity swelling and pain. COMPARISON: None. FINDINGS: Visualized deep and superficial venous system is patent. There is no mass or DVT. IMPRESSION: Negative left lower extremity venous Doppler. Dictated by: Dictated on workstation # [id number]
[2017-03-16 14:37] VITALS: BP 159/91
== END 2017-03-16 14:37 | disposition home or self-care (01) ==
LOC: EDUNIT# 11:47 → ER 11:49
DX: L03.116 Cellulitis of left lower limb (principal); J43.9 Emphysema, unspecified; G47.30 Sleep apnea, unspecified; E78.00 Pure hypercholesterolemia, unspecified; I10 Essential (primary) hypertension; I73.9 Peripheral vascular disease, unspecified; K21.9 Gastro-esophageal reflux disease without esophagitis; M19.90 Unspecified osteoarthritis, unspecified site; F41.9 Anxiety disorder, unspecified; Z86.010 Personal history of colon polyps; Z87.01 Personal history of pneumonia (recurrent); Z86.718 Personal history of other venous thrombosis and embolism; Z90.710 Acquired absence of both cervix and uterus; Z87.448 Personal history of other diseases of urinary system; Z87.19 Personal history of other diseases of the digestive system; Z90.89 Acquired absence of other organs; Z86.72 Personal history of thrombophlebitis; Z79.01 Long term (current) use of anticoagulants; Z87.891 Personal history of nicotine dependence
CPT/HCPCS: 36415; 80053; 85025; 85610

== ENCOUNTER → 2017-03-26 | Outpatient (CLI) | payer MEDICAID ==
--- NOTE | 2017-03-26 19:47 | Diagnostic Imaging Report ---
PA and lateral views of the chest. INDICATION: Preoperative evaluation for nasal polyp removal. FINDINGS: The lungs are hyperinflated with no focal infiltrates. The heart size is normal. No effusion or pneumothorax. The mediastinum and rachlele appear unremarkable. IMPRESSION: Hyperinflated clear lungs. Dictated by: Dictated on workstation # [id number]
== END ==
LOC: CARD 14:42
PROVIDERS: ATTEND Family Medicine
DX: Z01.810 Encounter for preprocedural cardiovascular examination (principal); J33.9 Nasal polyp, unspecified
CPT/HCPCS: 71020

== ENCOUNTER → 2017-03-29 | Outpatient (CLI) | payer MEDICAID ==
[~2017-03-29] MED LIST changes: +AZIT250T12 PO; -AZIT250T5 PO
--- NOTE | 2017-03-29 13:52 | Diagnostic Imaging Report ---
PROCEDURE: CT abdomen and pelvis without contrast. TECHNIQUE: Multiple contiguous axial images were obtained through the abdomen and pelvis without the use of intravenous contrast. INDICATION: Right lower quadrant pain and cramping. COMPARISON: 10/13/2015. FINDINGS: Included portions of the lung bases are clear. CT ABDOMEN: There is colonic diverticulosis, but no CT evidence of acute diverticulitis. Note is made that the cecum extends into the anterior upper abdomen, midline. A normal appendix is identified. Nonobstructive right renal calculus is identified. Since the previous exam, there appears to have been interval migration of calculi from the inferior pole of the right kidney into the distal right ureter at the UVJ (image 69, series 2). As a result, there is mild right-sided hydroureteronephrosis. No renal or ureteral calculi are identified on the left. There is some stranding of the perirenal fat interposed between the inferior pole the kidney and psoas muscle. This is felt to most likely represent scar tissue. Similar appearance is identified on prior exam dated 09/26/2014. Overall, appearance is not significantly changed since that exam. Indwelling IVC filter is also noted. There are multiple nodular densities within the periaortic fat on the left. These could be on the basis of venous or lymphatic structures versus lymph nodes. Again, appearance has not significantly changed since prior exam. The spleen, liver, pancreas, and adrenal glands have an unremarkable noncontrast CT appearance. No abnormal mesenteric adenopathy is seen. There is no loculated fluid collection or free fluid within the abdomen. Bony structures show no acute abnormalities. CT PELVIS: Urinary bladder is unopacified and decompressed. Again, multiple calculi are noted within the distal right ureter and at the right UVJ (images 64 and 69, series 2). There is no loculated fluid collection, free fluid, nor free air within the pelvis. No abnormal lymph nodes are seen. Bony structures show no acute abnormalities. IMPRESSION: 1. Interval migration of calculi into the distal right ureter resulting in mild proximal hydroureteronephrosis. 2. Additional nonobstructive right renal calculus. 3. Prominent density within the retroperitoneal periaortic fat on the right. Again, this is felt to most likely be on the basis of scar tissue. This is stable compared to 2015. 4. Prominent lymph nodes versus lymphatic vessels or veins within the periaortic retroperitoneal fat. This too is stable. 5. Colonic diverticulosis, but no CT evidence of acute diverticulitis. Dictated by: Dictated on workstation # [id number]
== END ==
LOC: RAD 10:41
PROVIDERS: ATTEND Surgery
DX: N20.2 Calculus of kidney with calculus of ureter (principal); K57.30 Diverticulosis of large intestine without perforation or abscess without bleeding; R59.0 Localized enlarged lymph nodes
CPT/HCPCS: 74176

== ENCOUNTER → 2017-04-02 | Outpatient (CLI) | payer MEDICAID ==
--- NOTE | 2017-04-02 20:30 | Diagnostic Imaging Report ---
PROCEDURE: MRI left joint lower extremity without contrast. TECHNIQUE: Multiplanar, multisequence non contrast-enhanced MRI of the left lower extremity was accomplished. INDICATION: Left knee pain persistent for two months after injury. FINDINGS: There is subcutaneous nonspecific edema around the knee circumferentially. There is a moderate knee effusion. There is tendinosis suggested in the distal quadriceps and in the distal patellar tendons without high-grade tear. The ACL and the PCL appear to be intact. There is an oblique tear through the posterior horn of the medial meniscus with minimal gap at the site of the tear and minimal displacement suggested. There is mild extrusion of the body of the medial meniscus as well. The lateral meniscus demonstrates no definite tear. The MCL demonstrates thickening proximally and mild edema around it which could relate to mild sprain. The lateral collateral ligament components appear to be intact. There is subchondral edema seen in the medial tibial plateau, which is probably degenerative related. There is moderate thinning of the cartilage in the medial compartment, about 50% and 25% cartilage thinning in the lateral compartment. There is mild cartilage thinning in the patellofemoral compartment suggested. Marginal osteophytes in the three compartments are seen. There is a very small Parekh's cyst. IMPRESSION: 1. The posterior horn of the medial meniscus is torn with minimal displacement of the meniscus fibers around the tear. 2. Owpy-zf-fnnwoamf osteoarthritis changes, mostly in the medial compartment. 3. Significant joint effusion. 4. Suggestion of mild MCL sprain. Dictated by: Dictated on workstation # [id number]
== END ==
LOC: RAD 10:47
PROVIDERS: ATTEND Nurse Practitioner
DX: M23.222 Derangement of posterior horn of medial meniscus due to old tear or injury, left knee (principal); M17.12 Unilateral primary osteoarthritis, left knee
CPT/HCPCS: 73721

== ENCOUNTER → 2017-04-03 | Outpatient (CLI) | payer MEDICAID ==
--- NOTE | 2017-04-03 15:46 | Diagnostic Imaging Report ---
INDICATION: Kidney stones. COMPARISON: CT abdomen and pelvis dated 03/29/2017. FINDINGS: Two supine radiographic views of the abdomen were obtained. There is moderate gaseous distention of the stomach. Small bowel loops however are nondistended. There is no large collection of free intraperitoneal air. Indwelling IVC filter is noted. Multiple well-circumscribed extraosseous calcifications are seen projecting over the pelvis. These could represent phleboliths. Note is made of distal ureteral calculi on previous CT. Phlebolith versus distal ureter calculi is difficult to determine given the overall number of calcifications. Patient's known right renal calculus is inconspicuous. No unexpected radiopaque foreign bodies are identified. Bony structures show age-related degenerative changes. IMPRESSION: 1. Multiple extraosseous calcifications are identified projecting over the pelvis. Again, venous phleboliths versus distal ureteral calculi is indeterminate. 2. Patient's known right renal calculus is inconspicuous. 3. Nonobstructive small bowel gas pattern. Dictated by: Dictated on workstation # [id number]
== END ==
LOC: RAD 15:10
PROVIDERS: ATTEND Urology
DX: Z87.442 Personal history of urinary calculi (principal)
CPT/HCPCS: 74000

== ENCOUNTER 2017-04-12 08:57 | Outpatient (CLI) | payer MEDICAID ==
[~2017-04-12] VITALS: Ht 165.1 cm; Wt 94.3 kg
[2017-04-12 09:18] VITALS: BP 122/82
[2017-04-12] MEDS ORDERED: BUME1TAB4 PO (09:24)
[2017-04-12] MEDS ORDERED: WARF4TAB70 PO (09:24)
== END 2017-04-12 09:45 | disposition home or self-care (01) ==
LOC: PREOP 08:57
PROVIDERS: ATTEND Otolaryngology Otolaryngology/Facial Plastic Surgery
DX: Z01.818 Encounter for other preprocedural examination (principal); Z11.2 Encounter for screening for other bacterial diseases; N20.1 Calculus of ureter; J33.9 Nasal polyp, unspecified; J34.89 Other specified disorders of nose and nasal sinuses; Z79.01 Long term (current) use of anticoagulants
CPT/HCPCS: 87081

== ENCOUNTER 2017-04-18 06:50 | Inpatient (IN) | payer MEDICAID ==
[2017-04-18] VITALS (7 sets, daily range): BP systolic 113–124; BP diastolic 79–82
[~2017-04-18] VITALS: Ht 165.1 cm; Wt 94.3 kg
[~2017-04-18 06:50] MED LIST changes: +BUME1TAB4 PO; +WARF4TAB70 PO
[2017-04-18] MEDS ORDERED: HYDROCORTISONE 100 MG/2 ML (Solu-CORTEF) VIAL IV ONE (07:15)
[2017-04-18] MEDS ORDERED: AMPICILLIN/SULBACTAM 1.5 GM/NS 50 ML IVPB IV ONE ×2 (07:15)
--- NOTE | 2017-04-18 07:20 | Diagnostic Imaging Report ---
EXAM: ABDOMEN/KUB 1VIEW INDICATION: Right-sided renal stone. COMPARISON: Abdominal radiographs 04/03/2017. FINDINGS: Cholecystectomy clips. IVC filter. Numerous calcifications in the pelvis have the appearance of phleboliths. No definite renal stones are seen. Nonspecific bowel gas pattern. No acute osseous findings. IMPRESSION: Stable exam including several calcifications in the pelvis which have the appearance of phleboliths. No definite renal or ureteral stones. Dictated by: Dictated on workstation # [id number]
[2017-04-18] MEDS ORDERED: LACTATED RINGERS 1,000 ML IV PRN ×2 (07:39→08:04)
[2017-04-18] MEDS ORDERED: FAMOTIDINE 20MG/2ML IV (PEPCID) IV ONE (07:45)
[2017-04-18 07:56] LABS: PROTHROMBIN TIME PATIENT 13.6 SEC (12.2-14.7)
[2017-04-18] MEDS ORDERED: CATHETER FLUSH 10 ML SYR IV PRN (08:00)
[2017-04-18] MEDS ORDERED: cefTRIAXone 1 GM/NS 50 ML IVPB IV ONE ×2 (08:00)
--- NOTE | 2017-04-18 09:24 | Progress Note-Pre Operative ---
Pre-Operative Progress Note H&P Reviewed The H&P was reviewed, patient examined and no changes noted. Date Seen by Provider: Apr 18, 2017 Time Seen by Provider: 09:15 Date H&P Reviewed: Apr 18, 2017 Time H&P Reviewed: 09:15 Pre-Operative Diagnosis: Bilat Chronic Sinusitis/ nasal polyps, hyper of inf turbs, deviated septum HOWARD GROVES MD Apr 18, 2017 9:24 am
[2017-04-18] MEDS ORDERED: BSS 15 ML ONE (09:32)
[2017-04-18] MEDS ORDERED: COCAINE HCL 4% 2 ML SYR ONE (09:32)
[2017-04-18] MEDS ORDERED: LIDOCAINE/EPI 1%-1:200,000 (XYLOCAINE) 10 ML VIAL ONE (09:32)
[2017-04-18] MEDS ORDERED: PHENYLEPHRINE 0.5% NASAL SPR (NEO-SYNEPHRINE) REG ONE (09:32)
[2017-04-18] MEDS ORDERED: ROCURONIUM 50 MG/5 ML (ZEMURON) VIAL IV ONE ×2 (09:36→11:19)
[2017-04-18] MEDS ORDERED: ONDANSETRON 4 MG/2 ML (SDV) Z0FRAN ONE ×2 (09:36→09:37)
[2017-04-18] MEDS ORDERED: proPOfol 200 MG/20 ML (DIPRIVAN) VIAL IV ONE (09:36)
[2017-04-18] MEDS ORDERED: LIDOCAINE PF 2% 5 ML (XYLOCAINE) VIAL ONE (09:36)
[2017-04-18] MEDS ORDERED: LACTATED RINGERS 0 ML IV ONE (09:36)
[2017-04-18] MEDS ORDERED: fentaNYL INJECTION 100 MCG/2 ML AMP ONE (09:37)
[2017-04-18] MEDS ORDERED: MIDAZOLAM 2 MG/2 ML (VERSED) VIAL ONE (09:37)
--- NOTE | 2017-04-18 10:27 | Progress Note-Pre Operative ---
Pre-Operative Progress Note H&P Reviewed The H&P was reviewed, patient examined and no changes noted. Date Seen by Provider: Apr 18, 2017 Time Seen by Provider: 10:27 Date H&P Reviewed: Apr 18, 2017 Time H&P Reviewed: 09:15 Pre-Operative Diagnosis: RT DISTAL URETERAL STONES ARIES FERRARO MD Apr 18, 2017 10:27 am
[2017-04-18] MEDS ORDERED: SEVOFLURANE (ULTANE) 15 ML INHAL SOLN ONE ×3 (11:19→11:22)
[2017-04-18] MEDS ORDERED: D5 1/2 NS W/KCL 20 MEQ/L 1,000 ML IV SCH (11:22)
--- NOTE | 2017-04-18 11:22 | Progress Note-Post Operative ---
Post-Operative Progess Note Surgeon (s)/Boat Loader Helper (s) Surgeon HOWARD GROVES MD Boat Loader Helper n/a Pre-Operative Diagnosis bilat chronisc sinustisi, nasal polyps Post-Operative Diagnosis same Post-Op Procedure Note Date of Procedure: Apr 18, 2017 Name of Procedure Performed: Bilat ESS, Biat Red of the Inf Turbinates Description & Findings Description and Findings: n/a Anesthesia Type get Estimated Blood Loss minimal Packing none. Specimen(s) collected/removed bilat nasal polyps, bilat chornic sinusitis HOWARD GROVES MD Apr 18, 2017 11:22 am
[2017-04-18] MEDS ORDERED: ACETAMINOPHEN 325 MG TABLET/CAPLET (TYLENOL) PO PRN (11:30)
[2017-04-18] MEDS ORDERED: HYDROcodone/APAP 5 MG/325 MG (LORTAB) TAB PO PRN (11:30)
[2017-04-18] MEDS ORDERED: predniSONE 20 MG TAB PO ONE (11:30)
[2017-04-18] MEDS ORDERED: PROMETHAZINE INJ 25 MG/ML (PHENERGAN) AMP IVP PRN (11:30)
[2017-04-18] MEDS ORDERED: GLYCOPYRROLATE 0.2 MG/ML (ROBINUL) 2 ML VIAL ONE (11:43)
[2017-04-18] MEDS ORDERED: NEOSTIGMINE (BLOXIVERZ ) 1 MG/1ML 10 ML VIAL ONE (11:43)
--- NOTE | 2017-04-18 11:49 | Progress Note-Post Operative ---
Post-Operative Progess Note Surgeon (s)/Sail Repairer (s) Surgeon ARIES FERRARO MD Sail Repairer: N/A Pre-Operative Diagnosis RT URETERAL STONES Post-Operative Diagnosis SAME Procedure & Operative Findings Date of Procedure 04/18/17 Procedure Performed/Findings RT URETEROSCOPY Anesthesia Type GENERAL Estimated Blood Loss Estimated blood loss (mL): N/A Specimens/Packing Specimens Removed N/A Packing: N/A ARIES FERRARO MD Apr 18, 2017 11:49 am
[2017-04-18] MEDS: morphine INJ 10 MG/ML 1ML (SYR OR VIAL) IVP PRN ×2 (12:15→12:20)
[2017-04-18] MEDS ORDERED: AMOX-355 PO (13:02)
[2017-04-18] MEDS ORDERED: PRD20T PO (13:02)
[2017-04-18] MEDS ORDERED: HYDR-3812 PO (13:02)
[2017-04-18] MEDS ORDERED: RT-ALBUTEROL SULF 2.5 MG/3 ML PRE-MIX VIAL ONE (14:57)
[2017-04-18] MEDS: CHLORASEPTIC SPRAY 177 ML LIQUID MC PRN ×2 (16:31→20:09)
[2017-04-18] MEDS ORDERED: ONDANSETRON 4 MG (ZOFRAN) ORAL DISSOLVE TAB PO PRN (17:45)
[2017-04-18] MEDS ORDERED: INFLUENZA TRIvalent 2017-2018 0.5 ML/45 MCG SYR IM ONE (18:30)
--- NOTE | 2017-04-18 21:25 | OPERATIVE REPORT ---
DATE OF SERVICE: 04/18/2017 PREOPERATIVE DIAGNOSIS: Right distal ureteral stones. POSTOPERATIVE DIAGNOSIS: Right distal ureteral stones. OPERATION PERFORMED: Right ureteroscopy. SURGEON: Chino Ferraro MD ANESTHESIA: General. COMPLICATIONS: None. PROCEDURE: Under satisfactory general anesthesia and after Dr. Parekh performed his part of the surgery that he will dictate, the patient was put in lithotomy position, genitalia prepped and draped in the usual sterile fashion. Cystoscope was introduced under vision and noted a 2 to 3+ cystocele and mild rectocele. The bladder was essentially normal, although the right ureteral orifice intramural portion was more edematous and red than the left one. Using the foroblique lens, I dilated the right ureteral orifice intramural portion to accommodate 6.9-German semi-rigid ureteroscope, went up all the way to the proximal ureter antegrade and retrograde, there were no stones. I removed the ureteroscope, reinserted the cystoscope to empty the bladder. The patient tolerated the procedure and anesthesia well. She was sent to recovery room in stable condition. She may have passed stones without noticing or these calcifications in the CAT scan were essentially phlebolith more than ureteral stones. This was explained to the family. Job ID: [id number] DocumentID: [id number] Dictated Date: 04/18/2017 11:51:58 Plug Sorter Date: 04/18/2017 14:41:01 Dictated By: CHINO FERRARO MD
[2017-04-19] VITALS (9 sets, daily range): BP systolic 116–179; BP diastolic 64–90
[2017-04-19] MEDS: CHLORASEPTIC SPRAY 177 ML LIQUID MC PRN (01:26)
--- NOTE | 2017-04-19 06:33 | Progress Note-Standard ---
Standard Progress Note Progress Notes/Assess & Plan Date Seen by Provider: Apr 19, 2017 Time Seen by Provider: 06:00 Progress/Assessment & Plan ENT-[place] Patient stayed overnight because of concerns with breathing Had breathing treatment about an hour ago with mild improvement complains of tightness in her chest has face tent on-40% 02 exam minimal oozing from nose voice normal no audible wheezing heard earlene lgtive 100mg of solumedrol and regular albuteral breathing t reatment will see how she does after breakfast and then home is lungs are doing ok patient has discharge prescriptions for hydrocodone and augmentin and prednisone taper RTC-1 week needs to start on her saline irrigations today and get back on her lovenox which she has at home idscharge instructions on her discharge instructions sheet as well Final Diagnosis s/p HOWARD Sabillon MD Apr 19, 2017 6:33 am
[2017-04-19] MEDS ORDERED: RT-ALBUTEROL/IPRATROPIUM 3 ML (DUONEB) VIAL INH ONE (06:45)
[2017-04-19] MEDS ORDERED: methylPREDNISolone 40 MG/ML (Solu-MEDROL) VIAL IV ONE (06:45)
[2017-04-19] MEDS ORDERED: methylPREDNISolone 125 MG (Solu-MEDROL) VIAL IM NR (07:19)
[2017-04-19] MEDS ORDERED: PROMETHAZINE 25 MG (PHENERGAN) TAB PO PRN (09:30)
[2017-04-19] MEDS ORDERED: HYOSCYAMINE 0.125 MG (LEVSIN) TAB SL PRN (09:30)
[2017-04-19] MEDS ORDERED: HYDROcodone/APAP 10 MG/325 MG (LORTAB) TAB PO PRN (09:30)
[2017-04-19] MEDS ORDERED: ALPRAZolam 1 MG (XANAX) TAB PO PRN (09:30)
[2017-04-19] MEDS ORDERED: RT-ALBUTEROL/IPRATROPIUM 3 ML (DUONEB) VIAL INH PRN (10:00)
[2017-04-19] MEDS: ENOXAPARIN 40 MG/0.4 ML (LOVENOX) SYR SC SCH ×2 (10:00→21:30)
--- NOTE | 2017-04-19 10:31 | Anesthesia-General Post-Op ---
General Patient Condition Mental Status/LOC: Same as Preop Cardiovascular: Satisfactory Nausea/Vomiting: Absent Respiratory: Satisfactory Pain: Controlled Complications: Absent Post Op Complications Complications None Follow Up Care/Instructions Patient Instructions None needed. Anesthesia/Patient Condition Patient Condition Patient is doing well, no complaints, stable vital signs, no apparent adverse anesthesia problems. No complications reported per nursing. ABI MITCHELL CRNA Apr 19, 2017 10:31
[2017-04-19] MEDS: RT-ALBUTEROL/IPRATROPIUM 3 ML (DUONEB) VIAL INH SCH ×4 (10:50→22:41)
[2017-04-19] MEDS: KCL 10 MEQ TAB (MICRO K) PO SCH ×2 (12:23→16:39)
--- NOTE | 2017-04-19 12:35 | Diagnostic Imaging Report ---
INDICATION: Hypoxia. COMPARISON: 03/26/2017. FINDINGS: The lungs are well aerated. There does appear to be some flattening of the diaphragms consistent with mild hyperaeration. This has not changed significantly in appearance since the previous exam. No acute infiltrates are seen. Mild prominence of the interstitial markings noted in the lung bases. Upper lungs are clear. Heart is upper limits of normal. No evidence of pulmonary edema. No hilar adenopathy. No pneumothorax or pleural effusions. No bony abnormalities. IMPRESSION: Findings are consistent with mild obstructive interstitial lung disease. No significant change in appearance has occurred when compared with previous examination. Dictated by: Dictated on workstation # [id number]
[2017-04-19] MEDS: methylPREDNISolone 125 MG (Solu-MEDROL) VIAL IVP SCH (16:38)
[2017-04-19] MEDS: CALCIUM CARB + VIT D 600 MG (CALCARB + D) TAB PO SCH (20:51)
[2017-04-19] MEDS: AUGMENTIN 500 MG TAB (AMOXICILLIN/CLAVULANATE) PO SCH (20:51)
[2017-04-19] MEDS ORDERED: FENOFIBRATE 134 MG (LOFIBRA) CAPSULE PO SCH (21:00)
[2017-04-19] MEDS ORDERED: MONTELUKAST 10 MG (SINGULAIR) TAB PO SCH (21:00)
--- NOTE | 2017-04-19 21:11 | Consultation ---
History of Present Illness History of Present Illness Patient Consulted On(crystal/time) 04/19/17 21:05 Date Seen by Provider: Apr 19, 2017 Time Seen by Provider: 12:15 Reason for Visit: medical management History of Present Illness 56-year-old female initially admitted for surgery to correct chronic bilateral sinusitis with nasal polyps. Patient underwent procedure in the morning of April 18, 2017. Patient also was known to have history of COPD/asthma. Apparently after the procedure she developed shortness of breath along with hypoxemia. She had some slight improvement with albuterol breathing treatments She ultimately was kept overnight on April 18, 2017 There has been no reports of any fever. Allergies and Home Medications Allergies Coded Allergies: aspirin (Verified Allergy, Severe, ANAPHYLAXIS, 04/18/17) ibuprofen (Verified Allergy, Severe, ANAPHYLAXIS, 04/18/17) ketorolac (Verified Allergy, Severe, ANAPHYLAXIS, 04/18/17) tetanus and diphtheria toxoids (Unverified Allergy, Severe, ANAPHYLAXIS, 04/18/17) aloe (Verified Allergy, Mild, RASH, 04/18/17) latex (Verified Allergy, Mild, RASH, 04/18/17) OCCASIONALLY IS IRRITATING SKIN iodine (Verified Adverse Reaction, Unknown, 04/18/17) Patient states she got dizzy, diaphoretic and saw stars. Uncoded Allergies: ALOE VERA (Allergy, Unknown, 12/23/05) SILK SUTURES (Adverse Reaction, Unknown, BODY REJECTS SUTURES, 10/07/13) Home Medications Albuterol Sulfate 2.5 Mg/3 Ml Vial.neb, 2.5 MG IH TID, (Reported) USES THIS ALONG WITH IPRATROPIUM SOLUTION Albuterol Sulfate 8.5 Gm Hfa.aer.ad, 2 PUFF IH EVERY 4-6 HOURS PRN for WHEEZING, (Reported) Alprazolam 1 Mg Tablet, 1 MG PO Q8H PRN for ANXIETY, (Reported) Amoxicillin/Potassium Clav 1 Each Tablet, 1 EACH PO BID for 14 Days, Ref 1 Prescribed by: MARLEEN MATHIAS on 04/18/17 1302 Calcium Carbonate/Vitamin D3 1 Each Tablet, 1 TAB PO BID, (Reported) Diltiazem HCl 120 Mg Capsule.er, 120 MG PO DAILY, (Reported) Fenofibrate Nanocrystallized 145 Mg Tablet, 145 MG PO DAILY, (Reported) Furosemide 80 Mg Tablet, 80 MG PO DAILY, (Reported) Hydrocodone/Acetaminophen 1 Each Tablet, 1 TAB PO EVERY 6-8 HOURS PRN for PAIN, (Reported) Hydrocodone/Acetaminophen 1 Each Tablet, 1-2 EACH PO Q4H PRN for PAIN, #40 Ref 0 Prescribed by: MARLEEN MATHIAS on 04/18/17 1302 Hyoscyamine Sulfate 0.125 Mg Tab.rapdis, 0.125 MG SL Q6H PRN for ABDOMINAL PAIN, (Reported) Ipratropium [place] 0.2 Mg/1 Ml Solution, 1 VIAL NEB TID, (Reported) USES ALONG WITH ALBUTEROL SOLUTION Loratadine 10 Mg Tablet, 10 MG PO DAILY, (Reported) Montelukast Sodium 10 Mg Tablet, 10 MG PO HS, (Reported) Pantoprazole Sodium 40 Mg Tablet.dr, 40 MG PO DAILY, (Reported) Potassium Chloride 10 Meq Tablet.er, 20 MEQ PO TID, (Reported) TAKES 2 (10 MEQ) TABLETS Prednisone 20 Mg Tab, 20 MG PO DAILY, #12 3 Tablets by mouth daily x2 days 2 tablets by mouth daily x2 days 1 tablet by mouth daily x2 days Prescribed by: MARLEEN MATHIAS on 04/18/17 1302 Promethazine HCl 25 Mg Tablet, 25 MG PO Q6H PRN for NAUSEA/VOMITING, (Reported) Past Acxgrlw-Mofcvk-Mmoebq Hx Patient Social History Alcohol Use: Denies Use Recreational Drug Use: No (15 yrs ago---IV drug user including Cocaine-CLEAN SINCE 1994) Smoking Status: Former Smoker Type Used: Cigarettes Former Smoker, Quit: September 12, 2003 2nd Hand Smoke Exposure: No Recent Foreign Travel: No Contact w/Someone Who Travel: No Recent Infectious Disease Expo: No Recent Hopitalizations: No Physical Abuse: No Sexual Abuse: No Mistreated: No Fear: No Immunizations Up To Date Tetanus Booster (TDap): Less than 5yrs PED Vaccines UTD: No Date of Pneumonia Vaccine: Sep 05, 2010 Date of Influenza Vaccine: Mar 11, 2012 Seasonal Allergies Seasonal Allergies: Yes Surgeries History of Surgeries: Yes (shoulder scope, knee scope, d & c, trapease filter, ) Surgeries: Abdominal, Adenoidectomy, Section, Gallbladder, Hysterectomy, Orthopedic, Tonsillectomy, Vascular Surgery Respiratory History of Respiratory Disorde: Yes (O2 AT NIGHT 2-3L and prn, sleep hypoxia) Respiratory Disorders: Asthma, Pneumonia, Chronic Bronchitis, Pulmonary Embolism, COPD, Emphysema Currently Using BIPAP: No Cardiovascular History of Cardiac Disorders: Yes (VENA CAVA FILTER 2010; VARICOSE VEINS WITH VENOUS STASIS ULCERS) Cardiac Disorders: Chronic Edema/Swelling, Deep Vein Thrombosis, High Cholesterol, Hypertension, Peripheral Vascular Neurological History of Neurological Disord: Yes Neurological Disorders: Neuropathy 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 System Hx 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 Disorders: No Sexually Transmitted Disease: No HIV/AIDS: No 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 Disorders: Denies 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 History of 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 Disor: Yes (on recent antibiotic) 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 Disorders: Bladder Infection, Kidney Stones Gastrointestinal History of Gastrointestinal Di: Yes Gastrointestinal Disorders: Colitis, Gastroesophageal Reflux, Diverticulosis, Polyps, Hiatal Hernia, Irritable Bowel Musculoskeletal History of Musculoskeletal Dis: Yes (left knee) Musculoskeletal Disorders: Arthritis Endocrine History of Endocrine Disorders: Yes (PRE-DIABETIC ) HEENT History of HEENT Disorders: Yes HEENT Disorders: Tinnitis Loss of Vision: Bilateral Hearing Impairment: Hard of Hearing Cancer History of Cancer: No Did You Recieve Any Treatments: No Psychosocial History of Psychiatric Problem: Yes Behavioral Health Disorders: Anxiety Integumentary History of Skin or Integumenta: Yes (CHRONIC VENOUS STASIS CHANGES) Skin/Integumentary Disorders: Recent Skin Changes Blood Transfusions History of Blood Disorders: Yes (HX OF DVT'S/ P.E.'S; PROBABLE PROTEIN C DEFICIENCY) Adverse Reaction to a Blood Tr: No (HAS HAD BLOOD WITH NO PROBLEMS) Family Medical History Significant Family History: Cancer, COPD, Vascular Disease Family Medial History: Alcoholism Alcoholism Arthritis Asthma Cancer Cancer of colon Cancer of mouth Cardiovascular disease Cataract Cataracts Chest pain Colon cancer Completed stroke Diabetes mellitus Family history: Allergy Family history: Arthritis Family history: Asthma Family history: Cardiovascular disease Family history: Coronary thrombosis Family history: Diabetes mellitus Family history: Gastrointestinal disease Family history: Hypertension Family history: Thyroid disorder Headache Hearing loss Heart disease History of - anemia History of - respiratory disease Hypercholesterolemia Hypercholesterolemia Infertile Malignant neoplasm of lung Myocardial infarction Myocardial infarction Psychotic disorder Respiratory disorder Stroke No Family History of: AIDS Abdominal aortic aneurysm Abdominal aortic aneurysm Waterloo's disease Waterloo's disease Alzheimer's disease Aphasia Aphasia Congenital disease Congenital heart disease Congenital heart disease Congestive heart failure Coronary thrombosis Cystic fibrosis Cystic fibrosis Deafness or hearing loss Dementia Dementia Drug abuse Dysphagia Dysphasia Family history: Alzheimer's disease Family history: Breast disease Family history: Glaucoma Family history: Osteoporosis Fibrocystic disease of breast Gastroenteritis Glaucoma Headache disorder Hereditary disease History of - disorder History of drug abuse Human immunodeficiency virus (HIV) seropositivity Infertility Kidney disease Kidney disease Neoplasm Not obtainable due to adoption Osteoporosis Parkinson's disease Parkinson's disease Prostate cancer Psychosocial problem Seizure disorder Seizure disorder Severe allergy Thyroid disease Tuberculosis Tuberculosis Visual disorder Visual impairment Review of Systems-General Constitutional: see HPI Physical Exam-General Problems Physical Exam Vital Signs Vital Sign - Last 12Hours 04/18/17 04/18/17 04/18/17 07:35 12:50 15:04 Temp 98.0 Pulse 99 Resp 16 B/P (MAP) 124/82 (96) Pulse Ox 97 O2 Delivery Room Air O2 Flow Rate 6.00 FiO2 40 Capillary Refill : General Appearance: mild distress Eyes: Bilateral Eye Normal Inspection HEENT: pharynx normal, other (she is noted to have congestion nasally ( consistent with her surgery)) Neck: supple Respiratory: rales, wheezing, expiration Cardiovascular: regular rate, rhythm Gastrointestinal: soft Extremities: pedal edema, swelling (lower half of legs worse on the left) Assessment/Plan Assessment/Plan Admission Diagnosis/Plan 1. Status post surgical correction bilateral chronic sinusitis and nasal polyps -currently under the care of Dr. Parekh 2. Asthma exacerbation following surgery -agree with Solu-Medrol 100mg IV q8hr and will taper as she improves -oxygen supplementation to maintain her saturations above 93%. -Continue with albuterol breathing treatments -check CXR -Continue with home medications as Clinical Quality Measures DVT/VTE Risk/Contraindication: Risk Factor Score Per Nursin RFS Level Per Nursing on Admit: 3=High LEAH WOLF MD Apr 19, 2017 21:11
[2017-04-20] VITALS: BP 126/75
[2017-04-20] MEDS: methylPREDNISolone 125 MG (Solu-MEDROL) VIAL IVP SCH ×2 (00:35→09:09)
[2017-04-20] MEDS: RT-ALBUTEROL/IPRATROPIUM 3 ML (DUONEB) VIAL INH SCH ×3 (02:59→10:40)
[2017-04-20] MEDS: KCL 10 MEQ TAB (MICRO K) PO SCH (06:33)
--- NOTE | 2017-04-20 06:34 | Progress Note-Standard ---
Standard Progress Note Progress Notes/Assess & Plan Date Seen by Provider: Apr 20, 2017 Time Seen by Provider: 06:00 Progress/Assessment & Plan [place] Patient stayed overnight because of concerns with breathing Had breathing treatment about an hour ago with mild improvement complains of tightness in her chest has face tent on-40% 02 exam minimal oozing from nose voice normal no audible wheezing heard earlene lgtive 100mg of solumedrol and regular albuteral breathing t reatment will see how she does after breakfast and then home is lungs are doing ok patient has discharge prescriptions for hydrocodone and augmentin and prednisone taper RTC-1 week needs to start on her saline irrigations today and get back on her lovenox which she has at home idscharge instructions on her discharge instructions sheet as well [place] Appreciate Dr Rodriguez care patient sleeping this am started saline irrigations last night-continue 3-4 times/day from a surgery standpoint doing well once lungs come around will be able to go home when DR Rogers says it is ok HOWARD GROVES MD Apr 20, 2017 6:34 am
[2017-04-20] MEDS ORDERED: PANTOPRAZOLE 40 MG (PROTONIX) TAB PO SCH (07:00)
[2017-04-20 08:00] VITALS: BP 115/59
[2017-04-20] MEDS ORDERED: DILTIAZEM 120 MG (CARDIZEM CD) CAP PO SCH (09:00)
[2017-04-20] MEDS ORDERED: FUROSEMIDE 40 MG (LASIX) TAB PO SCH (09:00)
[2017-04-20] MEDS ORDERED: LORATADINE (CLARITIN) 10 MG TAB PO SCH (09:00)
[2017-04-20] MEDS: CALCIUM CARB + VIT D 600 MG (CALCARB + D) TAB PO SCH (09:07)
[2017-04-20] MEDS: AUGMENTIN 500 MG TAB (AMOXICILLIN/CLAVULANATE) PO SCH (09:07)
[2017-04-20] MEDS: ENOXAPARIN 40 MG/0.4 ML (LOVENOX) SYR SC SCH (09:08)
--- NOTE | 2017-04-20 09:51 | Discharge Summary ---
Diagnosis/Chief Complaint Date of Admission Apr 19, 2017 at 11:00 Date of Discharge April 20, 2017 Discharge Date: Apr 20, 2017 Discharge Time: 11:00 Admission Diagnosis Admission Diagnosis 1. Chronic bilateral sinusitis with nasal polyps Nasal septal deviation Discharge Diagnosis 1. Chronic bilateral sinusitis with nasal polyps Nasal septal deviation 2. Asthma exacerbation Reason Hospital Visit 56-year-old female initially admitted for surgery to correct chronic bilateral sinusitis with nasal polyps. Patient underwent procedure in the morning of April 18, 2017. Patient also was known to have history of COPD/asthma. Apparently after the procedure she developed shortness of breath along with hypoxemia. She had some slight improvement with albuterol breathing treatments She ultimately was kept overnight on April 18, 2017 There has been no reports of any fever. Discharge Summary Hospital Course Hospital Course Patient was admitted to [facility] after having procedure for correction of bilateral chronic sinusitis with nasal polyps. Apparently did precede her went well and she was to be discharged to home after the procedure on Apr 2017, however she had difficulty breathing due to her underlying asthma. She was at this point admitted for continued pulmonary care She was maintained on Solu- Medrol 100 mg intravenous every 8 hours. She was also given albuterol breathing treatments via respiratory therapy Patient done well with an additional day and supplemtal oxygen by nasal cannula. She reports being in her normal health in the morning of April 20 and was felt ready for dismissal. Labs Laboratory Tests 04/18/17 07:20: 04/18/17 07:28: Glucometer 114H Procedures None. Discharge Physical Examination Allergies: Coded Allergies: aspirin (Verified Allergy, Severe, ANAPHYLAXIS, 04/18/17) ibuprofen (Verified Allergy, Severe, ANAPHYLAXIS, 04/18/17) ketorolac (Verified Allergy, Severe, ANAPHYLAXIS, 04/18/17) tetanus and diphtheria toxoids (Unverified Allergy, Severe, ANAPHYLAXIS, 04/18/17) aloe (Verified Allergy, Mild, RASH, 04/18/17) latex (Verified Allergy, Mild, RASH, 04/18/17) OCCASIONALLY IS IRRITATING SKIN iodine (Verified Adverse Reaction, Unknown, 04/18/17) Patient states she got dizzy, diaphoretic and saw stars. Uncoded Allergies: ALOE VERA (Allergy, Unknown, 12/23/05) SILK SUTURES (Adverse Reaction, Unknown, BODY REJECTS SUTURES, 10/07/13) Vitals & I&Os Vital Signs Date Time Temp Pulse Resp B/P (MAP) Pulse Ox O2 Delivery O2 Flow Rate FiO2 04/20/17 08:00 97.5 116 20 115/59 (77) 94 Nasal Cannula 3.00 04/19/17 09:48 40 General Appearance: No Acute Distress Respiratory: Clear to Auscultation (with only mild expiratory wheeze in the apical area) Cardiovascular: Regular Rate Abdominal: Soft Discharge Home Medications Reviewed and agree with Discharge Medication list on patient's Discharge Instruction sheet Instructions to Patient/Family Please see electronic discharge instructions given to patient. Clinical Quality Measures DVT/VTE Risk/Contraindication: Risk Factor Score Per Nursin RFS Level Per Nursing on Admit: 3=High LEAH WOLF MD Apr 20, 2017 09:51
[2017-04-20 12:10] VITALS: BP 115/59
== END 2017-04-20 12:10 | disposition home or self-care (01) | DRG 982 ==
LOC: SDC 06:50 → 4TH 15:20 → SDC 04-19 11:27
PROVIDERS: ADMIT Family Medicine; ATTEND Otolaryngology Otolaryngology/Facial Plastic Surgery
PROC: 09BQ4ZZ Excision of Right Maxillary Sinus, Percutaneous Endoscopic Approach (ICD-10-PCS; 2017-04-18)
PROC: 09BR4ZZ Excision of Left Maxillary Sinus, Percutaneous Endoscopic Approach (ICD-10-PCS; 2017-04-18)
PROC: 09BS4ZZ Excision of Right Frontal Sinus, Percutaneous Endoscopic Approach (ICD-10-PCS; 2017-04-18)
PROC: 09BT4ZZ Excision of Left Frontal Sinus, Percutaneous Endoscopic Approach (ICD-10-PCS; 2017-04-18)
PROC: 0TJ98ZZ Inspection of Ureter, Via Natural or Artificial Opening Endoscopic (ICD-10-PCS; 2017-04-18)
PROC: 09TU4ZZ Resection of Right Ethmoid Sinus, Percutaneous Endoscopic Approach (ICD-10-PCS; principal; 2017-04-18 09:58)
PROC: 09TV4ZZ Resection of Left Ethmoid Sinus, Percutaneous Endoscopic Approach (ICD-10-PCS; 2017-04-18 09:58)
DX: J45.901 Unspecified asthma with (acute) exacerbation (principal); R09.02 Hypoxemia; N20.1 Calculus of ureter; J32.1 Chronic frontal sinusitis; J33.8 Other polyp of sinus; N81.10 Cystocele, unspecified; N81.6 Rectocele; J43.9 Emphysema, unspecified; K21.9 Gastro-esophageal reflux disease without esophagitis; E78.00 Pure hypercholesterolemia, unspecified; E11.9 Type 2 diabetes mellitus without complications; I10 Essential (primary) hypertension; I73.9 Peripheral vascular disease, unspecified; M19.91 Primary osteoarthritis, unspecified site; G57.93 Unspecified mononeuropathy of bilateral lower limbs; Z86.711 Personal history of pulmonary embolism; Z86.718 Personal history of other venous thrombosis and embolism; Z79.01 Long term (current) use of anticoagulants; Z90.710 Acquired absence of both cervix and uterus
CPT/HCPCS: 36415; 71020; 74000; 82962; 85610; 88304; 94640; 94760

== ENCOUNTER → 2017-05-01 | Outpatient (CLI) | payer MEDICAID ==
[~2017-05-01] MED LIST changes: +AMOX-355 PO; +HYDR-3812 PO
== END ==
LOC: WOUNDCARE 08:30
PROVIDERS: ATTEND Surgery
DX: L97.222 Non-pressure chronic ulcer of left calf with fat layer exposed (principal); I87.332 Chronic venous hypertension (idiopathic) with ulcer and inflammation of left lower extremity; I87.321 Chronic venous hypertension (idiopathic) with inflammation of right lower extremity; I70.242 Atherosclerosis of native arteries of left leg with ulceration of calf; I89.0 Lymphedema, not elsewhere classified
CPT/HCPCS: 97597

== ENCOUNTER 2017-05-05 20:27 | Emergency (ER) | payer MEDICAID ==
[~2017-05-05] VITALS: Ht 165.1 cm; Wt 94.3 kg
[2017-05-05] MEDS ORDERED: WARF4TAB9 (21:06)
[2017-05-05] MEDS ORDERED: CLINDAMYCIN INJECTION 900 MG in NS (IVPB) 50 ML IV ONE (21:30)
[2017-05-05 21:56] LABS: BASOPHILS % (AUTO) 0 % (0-10); EOSINOPHILS # (AUTO) 0.4 10^3/uL (0.0-0.3); EOSINOPHILS % (AUTO) 6 % (0-10); LYMPHOCYTES # (AUTO) 2.4 X 10^3 (1.0-4.0); LYMPHOCYTES % (AUTO) 33 % (12-44); MEAN CORPUSCULAR HEMOGLOBIN 29 PG (25-34); MEAN CORPUSCULAR HGB CONC 33 G/DL (32-36); MEAN CORPUSCULAR VOLUME 88 FL (80-99); MEAN PLATELET VOLUME 9.3 FL (7.4-10.4); MONOCYTES # (AUTO) 0.6 X 10^3 (0.0-1.0); MONOCYTES % (AUTO) 9 % (0-12); NEUTROPHILS # (AUTO) 3.7 X 10^3 (1.8-7.8); NEUTROPHILS % (AUTO) 52 % (42-75); PLATELET COUNT 278 10^3/uL (130-400); RED BLOOD COUNT 4.19 10^6/uL (4.35-5.85); RED CELL DISTRIBUTION WIDTH 14.9 % (10.0-14.5); WHITE BLOOD COUNT 7.2 10^3/uL (4.3-11.0)
[2017-05-05 22:07] LABS: ANION GAP 12 MMOL/L (5-14); BLOOD UREA NITROGEN 9 MG/DL (7-18); BUN/CREATININE RATIO 13; CALCIUM 8.3 MG/DL (8.5-10.1); CARBON DIOXIDE 24 MMOL/L (21-32); CHLORIDE 102 MMOL/L (98-107); CREATININE SERUM 0.67 MG/DL (0.60-1.30); GFR ESTIMATED > 60; GLUCOSE 142 MG/DL (70-105); INR 1.9 (0.8-1.4); POTASSIUM 3.1 MMOL/L (3.6-5.0); PROTHROMBIN TIME PATIENT 21.4 SEC (12.2-14.7); SODIUM 138 MMOL/L (135-145); hs C REACTIVE PROTEIN 0.32 MG/DL (0.00-0.50)
[2017-05-05] MEDS ORDERED: KCL 10 MEQ TAB (MICRO K) PO ONE (22:15)
[2017-05-06] MEDS ORDERED: RX-DOXYCYCLINE 100 MG (VIBRAMYCIN) TAB PPK#2 PO STA (00:27)
--- NOTE | 2017-05-06 00:27 | ED General ---
General Chief Complaint: Skin/Wound Problems Stated Complaint: WOUND CARE L LEG PAIN Nursing Triage Note: CHRONIC LEFT LOWER LEG WOUND Nursing Sepsis Screen: No Definite Risk Source of Information: Patient Exam Limitations: No Limitations Allergies and Home Medications Allergies Coded Allergies: aspirin (Verified Allergy, Severe, ANAPHYLAXIS, 04/18/17) ibuprofen (Verified Allergy, Severe, ANAPHYLAXIS, 04/18/17) ketorolac (Verified Allergy, Severe, ANAPHYLAXIS, 04/18/17) tetanus and diphtheria toxoids (Unverified Allergy, Severe, ANAPHYLAXIS, 04/18/17) aloe (Verified Allergy, Mild, RASH, 04/18/17) latex (Verified Allergy, Mild, RASH, 04/18/17) OCCASIONALLY IS IRRITATING SKIN iodine (Verified Adverse Reaction, Unknown, 04/18/17) Patient states she got dizzy, diaphoretic and saw stars. Uncoded Allergies: ALOE VERA (Allergy, Unknown, 12/23/05) SILK SUTURES (Adverse Reaction, Unknown, BODY REJECTS SUTURES, 10/07/13) Home Medications Albuterol Sulfate 2.5 Mg/3 Ml Vial.neb, 2.5 MG IH TID, (Reported) USES THIS ALONG WITH IPRATROPIUM SOLUTION Albuterol Sulfate 8.5 Gm Hfa.aer.ad, 2 PUFF IH EVERY 4-6 HOURS PRN for WHEEZING, (Reported) Alprazolam 1 Mg Tablet, 1 MG PO Q8H PRN for ANXIETY, (Reported) Calcium Carbonate/Vitamin D3 1 Each Tablet, 1 TAB PO BID, (Reported) Diltiazem HCl 120 Mg Capsule.er, 120 MG PO DAILY, (Reported) Fenofibrate Nanocrystallized 145 Mg Tablet, 145 MG PO DAILY, (Reported) Furosemide 80 Mg Tablet, 80 MG PO DAILY, (Reported) Hydrocodone/Acetaminophen 1 Each Tablet, 1 TAB PO EVERY 6-8 HOURS PRN for PAIN, (Reported) Hydrocodone/Acetaminophen 1 Each Tablet, 1-2 EACH PO Q4H PRN for PAIN, #40 Ref 0 Prescribed by: MARLEEN MATHIAS on 04/18/17 1302 Hyoscyamine Sulfate 0.125 Mg Tab.rapdis, 0.125 MG SL Q6H PRN for ABDOMINAL PAIN, (Reported) Ipratropium Spencer 0.2 Mg/1 Ml Solution, 1 VIAL NEB TID, (Reported) USES ALONG WITH ALBUTEROL SOLUTION Loratadine 10 Mg Tablet, 10 MG PO DAILY, (Reported) Pantoprazole Sodium 40 Mg Tablet.dr, 40 MG PO DAILY, (Reported) Potassium Chloride 10 Meq Tablet.er, 20 MEQ PO TID, (Reported) TAKES 2 (10 MEQ) TABLETS Promethazine HCl 25 Mg Tablet, 25 MG PO Q6H PRN for NAUSEA/VOMITING, (Reported) Warfarin Sodium 4 Mg Tablet, (Reported) Past Wrzzhmi-Artmlu-Gigvme Hx Patient Social History Alcohol Use: Denies Use Recreational Drug Use: No (HX IV DRUG USE) Smoking Status: Former Smoker Type Used: Cigarettes Former Smoker, Quit: September 12, 2003 2nd Hand Smoke Exposure: No Recent Foreign Travel: No Contact w/Someone Who Travel: No Recent Infectious Disease Expo: No Recent Hopitalizations: No Immunizations Up To Date Tetanus Booster (TDap): Less than 5yrs PED Vaccines UTD: No Date of Pneumonia Vaccine: Sep 05, 2010 Date of Influenza Vaccine: Mar 11, 2012 Seasonal Allergies Seasonal Allergies: Yes Surgeries History of Surgeries: Yes (shoulder scope, knee scope, d & c, trapease filter, ) Surgeries: Abdominal, Adenoidectomy, Section, Gallbladder, Hysterectomy, Orthopedic, Tonsillectomy, Vascular Surgery Respiratory History of Respiratory Disorde: Yes (O2 AT NIGHT 2-3L and prn, sleep hypoxia) Respiratory Disorders: Asthma, Pneumonia, Chronic Bronchitis, Pulmonary Embolism, COPD, Emphysema Currently Using BIPAP: No Cardiovascular History of Cardiac Disorders: Yes (VENA CAVA FILTER 2009; VARICOSE VEINS WITH VENOUS STASIS ULCERS) Cardiac Disorders: Chronic Edema/Swelling, Deep Vein Thrombosis, High Cholesterol, Hypertension, Peripheral Vascular Neurological History of Neurological Disord: Yes Neurological Disorders: Neuropathy 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 System : No Hx 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 Disorders: No Sexually Transmitted Disease: No HIV/AIDS: No 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 Disorders: Denies 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, 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 History of 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 Disor: Yes (on recent antibiotic) 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 Disorders: Bladder Infection, Kidney Stones Gastrointestinal History of Gastrointestinal Di: Yes Gastrointestinal Disorders: Colitis, Gastroesophageal Reflux, Diverticulosis, Polyps, Hiatal Hernia, Irritable Bowel Musculoskeletal History of Musculoskeletal Dis: Yes (left knee) Musculoskeletal Disorders: Arthritis Endocrine History of Endocrine Disorders: Yes (PRE-DIABETIC ) HEENT History of HEENT Disorders: Yes HEENT Disorders: Tinnitis Loss of Vision: Bilateral Hearing Impairment: Hard of Hearing Cancer History of Cancer: No Did You Recieve Any Treatments: No Psychosocial History of Psychiatric Problem: Yes Behavioral Health Disorders: Anxiety Integumentary History of Skin or Integumenta: Yes (CHRONIC VENOUS STASIS CHANGES) Skin/Integumentary Disorders: Recent Skin Changes Blood Transfusions History of Blood Disorders: Yes (HX OF DVT'S/ P.E.'S; PROBABLE PROTEIN C DEFICIENCY) Adverse Reaction to a Blood Tr: No (HAS HAD BLOOD WITH NO PROBLEMS) Family Medical History Significant Family History: Cancer, COPD, Vascular Disease Family Medial History: Alcoholism Alcoholism Arthritis Asthma Cancer Cancer of colon Cancer of mouth Cardiovascular disease Cataract Cataracts Chest pain Colon cancer Completed stroke Diabetes mellitus Family history: Allergy Family history: Arthritis Family history: Asthma Family history: Cardiovascular disease Family history: Coronary thrombosis Family history: Diabetes mellitus Family history: Gastrointestinal disease Family history: Hypertension Family history: Thyroid disorder Headache Hearing loss Heart disease History of - anemia History of - respiratory disease Hypercholesterolemia Hypercholesterolemia Infertile Malignant neoplasm of lung Myocardial infarction Myocardial infarction Psychotic disorder Respiratory disorder Stroke No Family History of: AIDS Abdominal aortic aneurysm Abdominal aortic aneurysm Vermilion's disease Vermilion's disease Alzheimer's disease Aphasia Aphasia Congenital disease Congenital heart disease Congenital heart disease Congestive heart failure Coronary thrombosis Cystic fibrosis Cystic fibrosis Deafness or hearing loss Dementia Dementia Drug abuse Dysphagia Dysphasia Family history: Alzheimer's disease Family history: Breast disease Family history: Glaucoma Family history: Osteoporosis Fibrocystic disease of breast Gastroenteritis Glaucoma Headache disorder Hereditary disease History of - disorder History of drug abuse Human immunodeficiency virus (HIV) seropositivity Infertility Kidney disease Kidney disease Neoplasm Not obtainable due to adoption Osteoporosis Parkinson's disease Parkinson's disease Prostate cancer Psychosocial problem Seizure disorder Seizure disorder Severe allergy Thyroid disease Tuberculosis Tuberculosis Visual disorder Visual impairment Physical Exam Vital Signs Vital Sign - Last 12Hours 05/05/17 21:06 Temp 98.3 Pulse 97 Resp 17 B/P (MAP) 125/79 (94) Pulse Ox 93 O2 Delivery Room Air Capillary Refill : Less Than 3 Seconds Progress/Results/Core Measures Suspected Sepsis Recent Fever Within 48 Hours: No Infection Criteria Present: None New/Unexplained Altered Menta: No Sepsis Screen: No Definite Risk Sepsis Diagnosis: SIRS Temperature:98.3 Pulse: 97 Respiratory Rate: 17 Laboratory Tests 05/05/17 21:40: White Blood Count 7.2 Blood Pressure 125 /79 Mean: 94 Laboratory Tests 05/05/17 21:40: Creatinine 0.67, INR Comment 1.9H, Platelet Count 278 Results/Orders Lab Results Laboratory Tests Test 05/05/17 21:40 Range/Units White Blood Count 7.2 4.3-11.0 10^3/uL Red Blood Count 4.19 L 4.35-5.85 10^6/uL Hemoglobin 12.0 11.5-16.0 G/DL Hematocrit 37 35-52 % Mean Corpuscular Volume 88 80-99 FL Mean Corpuscular Hemoglobin 29 25-34 PG Mean Corpuscular Hemoglobin Concent 33 32-36 G/DL Red Cell Distribution Width 14.9 H 10.0-14.5 % Platelet Count 278 130-400 10^3/uL Mean Platelet Volume 9.3 7.4-10.4 FL Neutrophils (%) (Auto) 52 42-75 % Lymphocytes (%) (Auto) 33 12-44 % Monocytes (%) (Auto) 9 0-12 % Eosinophils (%) (Auto) 6 0-10 % Basophils (%) (Auto) 0 0-10 % Neutrophils # (Auto) 3.7 1.8-7.8 X 10^3 Lymphocytes # (Auto) 2.4 1.0-4.0 X 10^3 Monocytes # (Auto) 0.6 0.0-1.0 X 10^3 Eosinophils # (Auto) 0.4 H 0.0-0.3 10^3/uL Basophils # (Auto) 0.0 0.0-0.1 10^3/uL Prothrombin Time 21.4 H 12.2-14.7 SEC INR Comment 1.9 H 0.8-1.4 D-Dimer 0.54 H 0.00-0.49 UG/ML Sodium Level 138 135-145 MMOL/L Potassium Level 3.1 L 3.6-5.0 MMOL/L Chloride Level 102 98-107 MMOL/L Carbon Dioxide Level 24 21-32 MMOL/L Anion Gap 12 5-14 MMOL/L Blood Urea Nitrogen 9 7-18 MG/DL Creatinine 0.67 0.60-1.30 MG/DL Estimat Glomerular Filtration Rate > 60 BUN/Creatinine Ratio 13 Glucose Level 142 H 70-105 MG/DL Calcium Level 8.3 L 8.5-10.1 MG/DL C-Reactive Protein High Sensitivity 0.32 0.00-0.50 MG/DL My Orders Orders - ALVA BENJAMIN MD Basic Metabolic Panel (05/05/17 21:29) Cbc With Automated Diff (05/05/17 21:29) Hs C Reactive Protein (05/05/17 21:29) Fibrin Degradation Products (05/05/17 21:29) Wound Culture (05/05/17 21:29) Saline Lock/Iv-Start (05/05/17 21:29) Clindamycin Injection (Cleocin Injection (05/05/17 21:30) Protime With Inr (05/05/17 21:32) Potassium Chloride (Tablet) (Klor Con Ta (05/05/17 22:15) Us Venous Lower Ext Lt (05/05/17 22:15) Medications Given in ED Current Medications Medications Dose Ordered Sig/Nahomi Route Start Time Stop Time Status Last Admin Dose Admin Clindamycin Phosphate 900 mg/ Sodium Chloride 56 ml @ 100 mls/hr ONCE ONCE IV 05/05/17 21:30 05/05/17 22:03 DC 05/05/17 21:45 100 MLS/HR Potassium Chloride 40 meq ONCE ONCE PO 05/05/17 22:15 05/05/17 22:17 DC 05/05/17 22:24 40 MEQ Vital Signs/I&O Vital Sign - Last 12Hours 05/05/17 21:06 Temp 98.3 Pulse 97 Resp 17 B/P (MAP) 125/79 (94) Pulse Ox 93 O2 Delivery Room Air Intake and Output 05/06/17 00:00 Intake Total 56 ml Balance 56 ml Capillary Refill : Less Than 3 Seconds Blood Pressure Mean: 94 Departure Impression Impression: Primary Impression: Cellulitis Qualified Codes: L03.116 - Cellulitis of left lower limb Additional Impressions: Leg ulcer Qualified Codes: L97.929 - Non-pressure chronic ulcer of unspecified part of left lower leg with unspecified severity Hypokalemia Disposition: 01 HOME, SELF-CARE Condition: Improved Departure-Patient Inst. Referrals: LEAH WOLF MD (PCP) Primary Care Physician ARIES FERRARO MD (Family) Primary Care Physician Patient Instructions: Cellulitis (Skin Infection), Adult (DC) Add. Discharge Instructions: Complete your antibiotics as prescribed. Follow-up on the wound culture middle of this week. See your primary care provider soon as possible. Return to the ER symptoms worsen. Continue to follow wound care instructions including elevating the leg. Apply antibiotic ointment to the wound before dressing to prevent the dressing from sticking. All discharge instructions reviewed with patient and/or family. Voiced understanding. Scripts Doxycycline Hyclate (Doxycycline Hyclate) 100 Mg Tablet 100 MG PO BID, #14 TAB Prov: ALVA BENJAMIN MD 05/06/17 Copy Copies To 1: LEAH WOLF MD, JOSHUA T MD May 06, 2017 00:27
[2017-05-06] MEDS ORDERED: DOXY100T2 PO (00:30)
[2017-05-06 00:37] VITALS: BP 102/70
--- NOTE | 2017-05-06 06:09 | Diagnostic Imaging Report ---
EXAMINATION: Left lower extremity duplex venous ultrasound. TECHNIQUE: DVT protocol. Multiple sonographic images with color Doppler and waveform interrogation were performed of the left lower extremity veins with compression and augmentation maneuvers. INDICATION: Left leg pain and swelling. FINDINGS: The left lower extremity veins from the groin to below the knee veins were examined with normal color-flow, compressibility and waveform demonstrated. The great saphenous vein is patent. IMPRESSION: No evidence of DVT in the left lower extremity. Dictated by: Dictated on workstation # [id number]
== END 2017-05-06 00:36 | disposition home or self-care (01) ==
LOC: EDUNIT# 20:27 → ER 20:29
DX: L03.116 Cellulitis of left lower limb (principal); L97.929 Non-pressure chronic ulcer of unspecified part of left lower leg with unspecified severity; E87.6 Hypokalemia; J43.9 Emphysema, unspecified; E78.00 Pure hypercholesterolemia, unspecified; I10 Essential (primary) hypertension; I73.9 Peripheral vascular disease, unspecified; M17.12 Unilateral primary osteoarthritis, left knee; F41.9 Anxiety disorder, unspecified; Z80.0 Family history of malignant neoplasm of digestive organs; Z82.49 Family history of ischemic heart disease and other diseases of the circulatory system; Z80.1 Family history of malignant neoplasm of trachea, bronchus and lung; Z87.442 Personal history of urinary calculi; Z86.718 Personal history of other venous thrombosis and embolism; Z87.01 Personal history of pneumonia (recurrent); Z79.01 Long term (current) use of anticoagulants; Z87.891 Personal history of nicotine dependence; Z90.49 Acquired absence of other specified parts of digestive tract; Z87.59 Personal history of other complications of pregnancy, childbirth and the puerperium; Z90.710 Acquired absence of both cervix and uterus
CPT/HCPCS: 36415; 80048; 85025; 85379; 85610; 86141; 87070; 87205

== ENCOUNTER → 2017-05-08 | Outpatient (CLI) | payer MEDICAID ==
[~2017-05-08] MED LIST changes: +ACHD5005 PO; +DOXY100T2 PO; -HYDR-3812 PO; +WARF4TAB9
== END ==
LOC: WOUNDCARE 12:10
PROVIDERS: ATTEND Surgery
DX: I70.242 Atherosclerosis of native arteries of left leg with ulceration of calf (principal); L97.222 Non-pressure chronic ulcer of left calf with fat layer exposed; I87.332 Chronic venous hypertension (idiopathic) with ulcer and inflammation of left lower extremity; I87.321 Chronic venous hypertension (idiopathic) with inflammation of right lower extremity; I89.0 Lymphedema, not elsewhere classified
CPT/HCPCS: 11042

== ENCOUNTER → 2017-05-15 | Outpatient (CLI) | payer MEDICAID ==
[~2017-05-15] MED LIST changes: +ENOX40DI8 SQ
== END ==
LOC: WOUNDCARE 13:17
PROVIDERS: ATTEND Surgery
DX: I87.332 Chronic venous hypertension (idiopathic) with ulcer and inflammation of left lower extremity (principal); L97.222 Non-pressure chronic ulcer of left calf with fat layer exposed; I87.321 Chronic venous hypertension (idiopathic) with inflammation of right lower extremity; I89.0 Lymphedema, not elsewhere classified
CPT/HCPCS: 11042

== ENCOUNTER 2017-05-18 00:52 | Inpatient (IN) | payer MEDICAID ==
[~2017-05-18] VITALS: Ht 162.6 cm; Wt 91.8 kg
[2017-05-18] VITALS (12 sets, daily range): BP systolic 108–157; BP diastolic 72–117
[~2017-05-18 00:52] MED LIST changes: -ENOX40DI8 SQ; -WARF4TAB9; +WARF4TAB9 PO
[2017-05-18 01:13] LABS: BASOPHILS % (AUTO) 0 % (0-10); EOSINOPHILS % (AUTO) 0 % (0-10); HEMATOCRIT 37 % (35-52); HEMOGLOBIN 12.7 G/DL (11.5-16.0); LYMPHOCYTES # (AUTO) 4.8 X 10^3 (1.0-4.0); LYMPHOCYTES % (AUTO) 42 % (12-44); MEAN CORPUSCULAR HEMOGLOBIN 28 PG (25-34); MEAN CORPUSCULAR HGB CONC 35 G/DL (32-36); MEAN CORPUSCULAR VOLUME 81 FL (80-99); MEAN PLATELET VOLUME 8.7 FL (7.4-10.4); MONOCYTES # (AUTO) 1.3 X 10^3 (0.0-1.0); MONOCYTES % (AUTO) 11 % (0-12); NEUTROPHILS # (AUTO) 5.4 X 10^3 (1.8-7.8); NEUTROPHILS % (AUTO) 47 % (42-75); PLATELET COUNT 412 10^3/uL (130-400); RED BLOOD COUNT 4.52 10^6/uL (4.35-5.85); RED CELL DISTRIBUTION WIDTH 14.8 % (10.0-14.5); WHITE BLOOD COUNT 11.5 10^3/uL (4.3-11.0)
[2017-05-18] MEDS ORDERED: DEXAMETHASONE 4 MG/ML SDV (DECADRON) IH ONE (01:15)
[2017-05-18] MEDS ORDERED: RT-ALBUTEROL/IPRATROPIUM 3 ML (DUONEB) VIAL INH ONE (01:15)
[2017-05-18 01:36] LABS: INR 1.7 (0.8-1.4); PROTHROMBIN TIME PATIENT 20.2 SEC (12.2-14.7)
[2017-05-18 01:38] LABS: ALANINE AMINOTRANSFERASE 18 U/L (0-55); ALKALINE PHOSPHATASE 80 U/L (40-136); BILIRUBIN,TOTAL 0.2 MG/DL (0.1-1.0); BUN/CREATININE RATIO 22; CALCIUM 9.7 MG/DL (8.5-10.1); CARBON DIOXIDE 25 MMOL/L (21-32); CHLORIDE 109 MMOL/L (98-107); CREATININE SERUM 0.79 MG/DL (0.60-1.30); GFR ESTIMATED > 60; GLUCOSE 114 MG/DL (70-105); MAGNESIUM 2.3 MG/DL (1.8-2.4); POTASSIUM 3.3 MMOL/L (3.6-5.0); SODIUM 147 MMOL/L (135-145); TOTAL PROTEIN 8.1 GM/DL (6.4-8.2)
[2017-05-18 02:00] LABS: ABG BASE EXCESS 1.6 MMOL/L (-2.5-2.5); ABG OXYGEN SATURATION 87 % (94-100); ABG PCO2 60 MMHG (35-45); ABG PO2 57 MMHG (79-93); ABG TCO2 29.6 MMOL/L (21.0-31.0)
[2017-05-18] MEDS ORDERED: methylPREDNISolone 125 MG (Solu-MEDROL) VIAL IVP ONE (02:00)
[2017-05-18] MEDS ORDERED: LORazepam INJ 2 MG/ML (ATIVAN) VIAL IVP ONE (02:00)
[2017-05-18 02:01] LABS: ALLENS TEST YES-POS; INSPIRED O2 4L; VENTILATOR NO
[2017-05-18 02:02] LABS: ABG PH 7.28 (7.37-7.43)
[2017-05-18] MEDS ORDERED: cefTRIAXone INJECTION 1,000 MG in NS (IVPB) 50 ML IV ONE (02:15)
--- OUTSIDE RECORDS SUMMARY | 2017-05-18 02:18 | XMS REPORT | Continuity of Care Document ---
Author Author [facility] Organization [facility] Address Unknown Phone Unavailable Allergies Active Description Code Type Severity Reaction Onset Reported/Identified Relationship to Patient Clinical Status Yes ALOE VERA ALOE VERA Unknown N/A 12/23/2005 Yes aloe vera [id number] Drug Allergy Mild N/A 07/30/2011 Yes ketorolac [id number] Drug Allergy Unknown N/A 07/30/2011 Yes latex [id number] Drug Allergy Unknown N/A 10/07/2013 Yes SILK SUTURES SILK SUTURES Unknown BODY REJECTS NORTH 10/07/2013 Yes tetanus diphtheria toxoids [id number] Drug Allergy Unknown N/A 2013 Yes tetanus and diphtheria toxoids [id number] Drug Allergy Unknown N/A 2013 Yes aspirin [id number] Drug Allergy Severe ANAPHYLAXIS 04/18/2017 Yes ibuprofen [id number] Drug Allergy Severe ANAPHYLAXIS 04/18/2017 Yes ketorolac [id number] Drug Allergy Severe ANAPHYLAXIS 04/18/2017 Yes tetanus and diphtheria toxoids [id number] Drug Allergy Severe ANAPHYLAXIS Yes Aloe [id number] Drug Allergy Mild RASH 04/18/2017 Yes latex [id number] Drug Allergy Mild RASH 04/18/2017 Yes iodine [id number] Drug Allergy Unknown N/A 04/18/2017 Medications There is no data. Problems Date Dx Coded Attending Type Code Diagnosis Diagnosed By 11/13/2009 Ot 453.40 12/13/2009 Ot 610.1 12/13/2009 Ot 610.8 12/13/2009 Ot V58.61 01/02/2010 Ot 272.4 01/02/2010 Ot 327.23 01/02/2010 Ot 346.90 01/02/2010 Ot 355.9 01/02/2010 Ot 401.9 01/02/2010 Ot 493.22 01/02/2010 Ot 530.81 01/02/2010 Ot V12.51 01/23/2010 Ot 496 01/23/2010 Ot V57.89 04/24/2010 Ot 453.40 04/24/2010 Ot 496 04/24/2010 Ot V57.89 05/13/2010 Ot 461.9 05/13/2010 Ot 478.19 05/13/2010 Ot 493.90 05/26/2010 Ot 453.50 05/26/2010 Ot 924.00 05/26/2010 Ot E000.8 05/26/2010 Ot E928.9 05/26/2010 Ot V58.61 07/07/2010 Ot 276.8 07/07/2010 Ot 493.22 07/07/2010 Ot V12.51 07/07/2010 Ot V58.61 07/17/2010 Ot 530.81 07/17/2010 Ot 553.3 07/24/2010 Ot 453.40 08/09/2010 Ot 272.4 08/09/2010 Ot 401.9 08/09/2010 Ot 491.21 08/09/2010 Ot 799.02 08/09/2010 Ot V12.51 09/06/2010 Ot 272.4 HYPERLIPIDEMIA NEC/NOS 09/06/2010 Ot 401.9 HYPERTENSION NOS 09/06/2010 Ot 459.81 VENOUS INSUFFICIENCY NOS 09/06/2010 Ot 491.21 OBSTR CHRONIC BRONCHITIS, W (ACUTE) EXAC 09/06/2010 Ot V03.82 PROPHYLACTIC VACC AGAINST STREPTOCOCCUS 09/06/2010 Ot V12.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 EMBOLISM 09/06/2010 Ot V12.79 PERSONAL HISTORY OTH SPEC DIGESTIVE SYST 09/06/2010 Ot V45.89 POSTSURGICAL STATES NEC 09/06/2010 Ot V58.61 ANTICOAGULANTS,LT,CURRENT USE 10/10/2010 Ot 536.8 STOMACH FUNCTION DIS NEC 10/10/2010 Ot 789.06 ABDOMINAL PAIN, EPIGASTRIC 10/13/2010 Ot 491.21 OBSTR CHRONIC BRONCHITIS, W (ACUTE) EXAC 10/13/2010 Ot 786.05 SHORTNESS OF BREATH 10/30/2010 Ot 453.40 ACUTE VENOUS EMBOLISM THROMBOSIS UNSP 11/17/2010 Ot 782.3 EDEMA 11/17/2010 Ot V12.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 EMBOLISM 11/17/2010 Ot V57.21 ENCOUNTER FOR OCCUPATIONAL THERAPY 12/27/2010 Ot 493.90 ASTHMA, UNSPECIFIED 12/27/2010 Ot 493.92 ASTHMA, UNSPECIFIED, W (ACUTE) EXACERBAT 02/04/2011 Ot 453.40 ACUTE VENOUS EMBOLISM THROMBOSIS UNSP 02/21/2011 Ot 276.8 HYPOPOTASSEMIA 02/21/2011 Ot 491.21 OBSTR CHRONIC BRONCHITIS, W (ACUTE) EXAC 02/21/2011 Ot 786.05 SHORTNESS OF BREATH 04/02/2011 Ot 276.8 HYPOPOTASSEMIA 04/02/2011 Ot 491.21 OBSTR CHRONIC BRONCHITIS, W (ACUTE) EXAC 04/02/2011 Ot 786.05 SHORTNESS OF BREATH 05/08/2011 Ot 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 05/08/2011 Ot V58.61 ANTICOAGULANTS,LT,CURRENT USE 06/08/2011 Ot 276.8 HYPOPOTASSEMIA 06/08/2011 Ot 401.9 HYPERTENSION NOS 06/08/2011 Ot 473.9 CHRONIC SINUSITIS NOS 06/08/2011 Ot 491.22 OBSTRUCTIVE CHRONIC BRONCHITIS WITH ACUT 06/08/2011 Ot 493.20 CHRONIC OBSTRUCTIVE ASTHMA, NOS 06/08/2011 Ot 564.1 IRRITABLE BOWEL SYNDROME 06/08/2011 Ot V12.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 EMBOLISM 06/08/2011 Ot V12.55 PERSONAL HISTORY OF PULMONARY EMBOLISM 06/18/2011 Ot 825.25 FX METATARSAL-CLOSED 06/18/2011 Ot 959.7 LOWER LEG INJURY NOS 06/18/2011 Ot E000.8 OTHER EXTERNAL CAUSE STATUS 06/18/2011 Ot E001.0 ACTIVITIES INVOLVING WALKING, MARCHING A 06/18/2011 Ot E849.0 ACCIDENT IN HOME 06/18/2011 Ot E885.9 FALL FROM SLIPPING, TRIPPING, OR STUMBLI 08/02/2011 Ot 276.8 HYPOPOTASSEMIA 08/02/2011 Ot 401.9 HYPERTENSION NOS 08/02/2011 Ot 490 BRONCHITIS NOS 08/02/2011 Ot 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, W (ACUTE) EX 08/02/2011 Ot V12.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 EMBOLISM 08/02/2011 Ot V12.55 PERSONAL HISTORY OF PULMONARY EMBOLISM 09/11/2011 Ot 491.21 OBSTR CHRONIC BRONCHITIS, W (ACUTE) EXAC 09/11/2011 Ot 493.20 CHRONIC OBSTRUCTIVE ASTHMA, NOS 10/19/2011 Ot 211.3 BENIGN NEOPLASM LG BOWEL 10/19/2011 Ot 272.4 HYPERLIPIDEMIA NEC/NOS 10/19/2011 Ot 276.8 HYPOPOTASSEMIA 10/19/2011 Ot 305.1 TOBACCO USE DISORDER 10/19/2011 Ot 401.9 HYPERTENSION NOS 10/19/2011 Ot 457.1 OTHER LYMPHEDEMA 10/19/2011 Ot 477.9 ALLERGIC RHINITIS NOS 10/19/2011 Ot 496 CHR AIRWAY OBSTRUCT NEC 10/19/2011 Ot 558.9 NONINF GASTROENTERIT NEC 10/19/2011 Ot 599.0 URIN TRACT INFECTION NOS 10/19/2011 Ot V12.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 EMBOLISM 10/19/2011 Ot V12.72 PERSONAL HISTORY OF COLONIC POLYPS 10/19/2011 Ot V12.79 PERSONAL HISTORY OTH SPEC DIGESTIVE SYST 10/19/2011 Ot V58.61 ANTICOAGULANTS,LT,CURRENT USE 10/21/2011 Ot V12.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 EMBOLISM 10/21/2011 Ot V58.61 ANTICOAGULANTS,LT,CURRENT USE 11/01/2011 Ot 709.8 SKIN DISORDERS NEC 12/08/2011 Ot 276.8 HYPOPOTASSEMIA 12/08/2011 Ot 786.09 RESPIRATORY ABNORM NEC 12/08/2011 Ot 789.06 ABDOMINAL PAIN, EPIGASTRIC 12/12/2011 Ot 491.21 OBSTR CHRONIC BRONCHITIS, W (ACUTE) EXAC 12/12/2011 Ot 786.05 SHORTNESS OF BREATH 02/05/2012 Ot V12.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 EMBOLISM 02/05/2012 Ot V58.61 ANTICOAGULANTS,LT,CURRENT USE 03/31/2012 Ot 300.00 ANXIETY STATE NOS 03/31/2012 Ot 429.3 CARDIOMEGALY 03/31/2012 Ot 785.1 PALPITATIONS 05/13/2012 Ot V12.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 EMBOLISM 05/13/2012 Ot V58.61 ANTICOAGULANTS,LT,CURRENT USE 05/13/2012 Ot 401.9 HYPERTENSION NOS 05/13/2012 Ot 780.2 SYNCOPE AND COLLAPSE 05/13/2012 Ot 780.4 DIZZINESS AND GIDDINESS 07/02/2012 Ot V12.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 EMBOLISM 07/02/2012 Ot V57.21 ENCOUNTER FOR OCCUPATIONAL THERAPY 07/18/2012 Ot 112.0 THRUSH 07/18/2012 Ot 276.8 HYPOPOTASSEMIA 07/18/2012 Ot 401.9 HYPERTENSION NOS 07/18/2012 Ot 486 PNEUMONIA, ORGANISM NOS 07/18/2012 Ot 493.00 EXTRINSIC ASTHMA, NOS 07/18/2012 Ot 780.2 SYNCOPE AND COLLAPSE 07/18/2012 Ot 790.92 COAGULATION PROFILE, ABNORMAL 07/18/2012 Ot V12.55 PERSONAL HISTORY OF PULMONARY EMBOLISM 07/18/2012 Ot V15.82 HISTORY OF TOBACCO USE 07/18/2012 Ot V58.61 ANTICOAGULANTS,LT,CURRENT USE 08/15/2012 Ot 466.0 ACUTE BRONCHITIS 08/15/2012 Ot 472.0 CHRONIC RHINITIS 08/15/2012 Ot 786.2 COUGH 08/21/2012 Ot V12.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 EMBOLISM 08/21/2012 Ot V12.55 PERSONAL HISTORY OF PULMONARY EMBOLISM 09/24/2012 SHEILA FARRIS MD Ot 443.9 PERIPH VASCULAR DIS NOS 09/24/2012 SHEILA FARRIS MD Ot 454.8 VARICOSE VEINS LOWER EXTREM W OTHER COMP 09/27/2012 STEPHANIE ECKERT DO Ot 729.81 SWELLING OF LIMB 09/27/2012 STEPHANIE ECKERT DO Ot 998.32 DISRUPTION OF EXTERNAL OPERATION (SURGIC 09/27/2012 STEPHANIE ECKERT DO Ot 998.59 OTH POSTOPER INFECTION 09/29/2012 LEAH WOLF MD Ot 300.00 ANXIETY STATE NOS 09/29/2012 LEAH WOLF MD Ot 454.9 ASYMPTOMATIC VARICOSE VEINS 09/29/2012 LEAH WOLF MD Ot 459.81 VENOUS INSUFFICIENCY NOS 09/29/2012 LEAH WOLF MD Ot 491.20 OBSTR CHRONIC BRONCHITIS, W/O EXACERBATI 09/29/2012 LEAH WOLF MD Ot 729.81 SWELLING OF LIMB 09/29/2012 LEAH WOLF MD Ot V12.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 EMBOLISM 09/29/2012 LEAH WOLF MD Ot V12.61 PERSONAL HISTORY, PNEUMONIA (RECURRENT) 10/24/2012 RAJESH TOWNSEND MD Ot 682.6 CELLULITIS OF LEG 10/24/2012 RAJESH TOWNSEND MD Ot 729.5 PAIN IN LIMB 10/26/2012 Ot 286.9 COAGULAT DEFECT NEC/NOS 10/26/2012 Ot 496 CHR AIRWAY OBSTRUCT NEC 10/26/2012 Ot 564.1 IRRITABLE BOWEL SYNDROME 10/26/2012 Ot 585.3 CHRONIC KIDNEY DISEASE, STAGE III (MODER 10/26/2012 Ot V12.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 EMBOLISM 10/26/2012 Ot V12.55 PERSONAL HISTORY OF PULMONARY EMBOLISM 10/26/2012 Ot V58.61 ANTICOAGULANTS,LT,CURRENT USE 10/26/2012 Ot V58.69 OTH MED,LT, CURRENT USE 11/20/2012 LEAH WOLF MD, Ot V12.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 EMBOLISM 11/20/2012 LEAH WOLF MD, Ot V12.55 PERSONAL HISTORY OF PULMONARY EMBOLISM 12/28/2012 KALEIGH ROSARIO, SHEILA Nicolas Ot 686.9 LOCAL SKIN INFECTION NOS 02/19/2013 IZABELA MCCLAIN Ot 454.9 ASYMPTOMATIC VARICOSE VEINS 02/19/2013 IZABELA MCCLAIN Ot 998.83 NON-HEALING SURG WOUND 02/19/2013 IZABELA MCCLAIN Ot 998.89 OTHER SPEC COMPLICATIONS OF PROCEDURES N 03/01/2013 LEAH WOLF MD Ot 453.40 ACUTE VENOUS EMBOLISM THROMBOSIS UNSP 03/01/2013 LEAH WOLF MD, Ot V58.61 ANTICOAGULANTS,LT,CURRENT USE 04/08/2013 HOWARD HUGHES MD Ot 354.1 MEDIAN NERVE LESION NEC 04/08/2013 HOWARD HUGHES MD Ot V58.61 ANTICOAGULANTS,LT,CURRENT USE 04/14/2013 LEAH WOLF MD Ot 724.1 PAIN IN THORACIC SPINE 04/14/2013 LEAH WOLF MD Ot 724.2 LUMBAGO 04/14/2013 LEAH WOLF MD Ot V57.1 PHYSICAL THERAPY NEC 04/20/2013 DEE DEE MALHOTRA Ot 455.6 HEMORRHOIDS NOS 04/20/2013 DEE DEE MALHOTRA Ot 564.00 UNSPEC CONSTIPATION 04/20/2013 DEE DEE MALHOTRA Ot 578.1 BLOOD IN STOOL 05/17/2013 KAMRAN LINDQUIST APRN Ot 486 PNEUMONIA, ORGANISM NOS 05/17/2013 KAMRAN LINDQUIST APRN Ot 786.05 SHORTNESS OF BREATH 06/21/2013 LEAH WOLF MD Ot 453.40 ACUTE VENOUS EMBOLISM THROMBOSIS UNSP 06/21/2013 LEAH WOLF MD, Ot V58.61 ANTICOAGULANTS,LT,CURRENT USE 07/02/2013 LEAH WOLF MD Ot 300.00 ANXIETY STATE NOS 07/02/2013 LEAH WOLF MD Ot 401.9 HYPERTENSION NOS 07/02/2013 LEAH WOLF MD Ot 443.9 PERIPH VASCULAR DIS NOS 07/02/2013 LEAH WOLF MD Ot 491.21 OBSTR CHRONIC BRONCHITIS, W (ACUTE) EXAC 07/02/2013 LEAH WOLF MD Ot 564.09 OTHER CONSTIPATION 07/02/2013 LEAH WOLF MD, Ot 564.1 IRRITABLE BOWEL SYNDROME 07/02/2013 LEAH WOLF MD Ot 716.90 ARTHROPATHY NOS-UNSPEC 07/02/2013 LEAH WOLF MD Ot 786.2 COUGH 07/02/2013 LEAH WOLF MD Ot 799.02 HYPOXEMIA 07/02/2013 LEAH WOLF MD, Ot V12.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 EMBOLISM 07/02/2013 LEAH WOLF MD, Ot V12.55 PERSONAL HISTORY OF PULMONARY EMBOLISM 07/02/2013 LEAH WOLF MD, Ot V15.82 HISTORY OF TOBACCO USE 07/22/2013 KAMRAN LINDQUIST APRN Ot 729.81 SWELLING OF LIMB 07/22/2013 KAMRAN LINDQUIST APRN Ot 782.3 EDEMA 08/18/2013 ALVA BENJAMIN MD Ot 473.9 CHRONIC SINUSITIS NOS 08/18/2013 ALVA BENJAMIN MD Ot 491.21 OBSTR CHRONIC BRONCHITIS, W (ACUTE) EXAC 08/18/2013 ALVA BENJAMIN MD Ot 786.05 SHORTNESS OF BREATH 10/10/2013 DEE DEE MALHOTRA Ot 300.00 ANXIETY STATE NOS 10/10/2013 DEE DEE MALHOTRA Ot 401.9 HYPERTENSION NOS 10/10/2013 DEE DEE MALHOTRA Ot 459.81 VENOUS INSUFFICIENCY NOS 10/10/2013 DEE DEE MALHOTRA Ot 493.90 ASTHMA, UNSPECIFIED 10/10/2013 DEE DEE MALHOTRA Ot 564.09 OTHER CONSTIPATION 10/10/2013 DEE DEE MALHOTRA Ot 564.1 IRRITABLE BOWEL SYNDROME 10/10/2013 DEE DEE MALHOTRA Ot 682.6 CELLULITIS OF LEG 10/10/2013 DEE DEE MALHOTRA Ot 716.90 ARTHROPATHY NOS-UNSPEC 10/10/2013 DEE DEE MALHOTRA Ot V12.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 EMBOLISM 10/10/2013 DEE DEE MALHOTRA Ot V12.55 PERSONAL HISTORY OF PULMONARY EMBOLISM 10/11/2013 DEE DEE MALHOTRA Ot 300.00 ANXIETY STATE NOS 10/11/2013 DEE DEE MALHOTRA Ot 401.9 HYPERTENSION NOS 10/11/2013 DEE DEE MALHOTRA Ot 443.9 PERIPH VASCULAR DIS NOS 10/11/2013 DEE DEE MALHOTRA Ot 459.81 VENOUS INSUFFICIENCY NOS 10/11/2013 DEE DEE MALHOTRA Ot 493.20 CHRONIC OBSTRUCTIVE ASTHMA, NOS 10/11/2013 DEE DEE MALHOTRA Ot 564.09 OTHER CONSTIPATION 10/11/2013 DEE DEE MALHOTRA Ot 564.1 IRRITABLE BOWEL SYNDROME 10/11/2013 DEE DEE MALHOTRA Ot 682.6 CELLULITIS OF LEG 10/11/2013 DEE DEE MALHOTRA Ot 787.01 NAUSEA WITH VOMITING 10/11/2013 DEE DEE MALHOTRA Ot 787.1 HEARTBURN 10/11/2013 DEE DEE MALHOTRA Ot 789.00 ABDOMINAL PAIN, UNSPECIFIED SITE 10/11/2013 DEE DEE MALHOTRA Ot E947.9 ADV EFF MEDICINAL NOS 10/11/2013 DEE DEE MALHOTRA Ot V12.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 EMBOLISM 10/11/2013 DEE DEE MALHOTRA Ot V12.55 PERSONAL HISTORY OF PULMONARY EMBOLISM 11/03/2013 LEAH WOLF MD Ot 782.3 EDEMA 12/03/2013 LEAH WOLF MD Ot 453.40 ACUTE VENOUS EMBOLISM THROMBOSIS UNSP 12/03/2013 LEAH WOLF MD Ot V58.61 ANTICOAGULANTS,LT,CURRENT USE 12/17/2013 LEAH WOLF MD Ot 995.0 OTHER ANAPHYLACTIC REACTION 12/17/2013 LEAH WOLF MD Ot E948.6 ADV EFF PERTUSSIS VACCIN 12/19/2013 KAMRAN LINDQUIST APRN Ot 845.00 SPRAIN OF ANKLE NOS 12/19/2013 KAMRAN LINDQUIST APRN Ot E927.0 OVEREXERTION FROM SUDDEN STRENUOUS MOVEM 12/31/2013 ANDRES HOWE MD Ot 682.6 CELLULITIS OF LEG 12/31/2013 ANDRES HOWE MD Ot 729.5 PAIN IN LIMB 12/31/2013 ANDRES HOWE MD Ot V12.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 EMBOLISM 12/31/2013 ANDRES HOWE MD Ot V58.61 ANTICOAGULANTS,LT,CURRENT USE 12/31/2013 ANDRES HOWE MD, Ot V58.69 OTH MED,LT,CURRENT USE 01/04/2014 BBAARSTEPHANIE Hurtado DO Ot 112.0 THRUSH 01/04/2014 BABAR DO STEPHANIE Hathaway Ot 459.81 VENOUS INSUFFICIENCY NOS 01/04/2014 STEPHANIE ECKERT DO K Ot 682.6 CELLULITIS OF LEG 01/04/2014 BABAR DO STEPHANIE Hathaway Ot 707.10 ULCER OF LOWER LIMB NOS 01/29/2014 LEAH WOLF MD Ot 305.1 TOBACCO USE DISORDER 01/29/2014 LEAH WOLF MD Ot 401.9 HYPERTENSION NOS 01/29/2014 LEAH WOLF MD Ot 493.90 ASTHMA, UNSPECIFIED 01/29/2014 LEAH WOLF MD Ot 682.6 CELLULITIS OF LEG 01/29/2014 LEAH WOLF MD Ot V12.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 EMBOLISM 01/29/2014 LEAH WOLF MD Ot V12.55 PERSONAL HISTORY OF PULMONARY EMBOLISM 03/10/2014 ALVA BENJAMIN MD Ot 465.9 ACUTE URI NOS 03/10/2014 ALVA BENJAMIN MD Ot 491.21 OBSTR CHRONIC BRONCHITIS, W (ACUTE) EXAC 03/10/2014 ALVA BENJAMIN MD Ot 786.2 COUGH 03/17/2014 LEAH WOLF MD Ot 724.3 SCIATICA 03/17/2014 LEAH WOLF MD Ot V57.1 PHYSICAL THERAPY NEC 03/18/2014 KAMRAN LINDQUIST APRN Ot 491.21 OBSTR CHRONIC BRONCHITIS, W (ACUTE) EXAC 03/18/2014 KAMRAN LINDQUIST APRN Ot 786.05 SHORTNESS OF BREATH 04/01/2014 LEAH WOLF MD Ot 453.40 04/01/2014 LEAH WOLF MD, Ot V58.61 04/19/2014 AKIKO NAVARRO Ot 272.4 04/26/2014 ALVA BENJAMIN MD Ot 382.9 OTITIS MEDIA NOS 04/26/2014 ALVA BENJAMIN MD Ot 388.70 OTALGIA NOS 04/29/2014 LEAH WOLF MD, Ot V58.62 ENCOUNT FOR LONG-TERM(CURRENT) USE OF AN 04/29/2014 LEAH WOLF MD, Ot V58.83 ENCOUNTER FOR THERAPEUTIC DRUG MONITORIN 05/03/2014 AKIKO NAVARRO Ot 272.4 05/24/2014 LEAH WOLF MD, Ot 453.40 ACUTE VENOUS EMBOLISM THROMBOSIS UNSP 05/24/2014 LEAH WOLF MD, Ot V58.61 ANTICOAGULANTS,LT,CURRENT USE 06/07/2014 LEAH WOLF MD, Ot 453.40 06/07/2014 LEAH WOLF MD, Ot V58.61 06/08/2014 LEAH WOLF MD, Ot 453.40 06/08/2014 LEAH WOLF MD, Ot V58.61 06/08/2014 LEAH WOLF MD, Ot 453.40 06/08/2014 LEAH WOLF MD, Ot V58.61 06/16/2014 KAMRAN LINDQUIST APRN Ot 491.21 OBSTR CHRONIC BRONCHITIS, W (ACUTE) EXAC 06/16/2014 KAMRAN LINDQUIST APRN Ot 786.2 COUGH 06/28/2014 LEAH WOLF MD Ot 453.40 06/28/2014 LEAH WOLF MD, Ot V58.61 07/24/2014 Ot 272.0 PURE HYPERCHOLESTEROLEM 07/24/2014 Ot 401.9 HYPERTENSION NOS 07/24/2014 Ot 491.21 OBSTR CHRONIC BRONCHITIS, W (ACUTE) EXAC 07/24/2014 Ot 530.81 ESOPHAGEAL REFLUX 07/24/2014 Ot 799.02 HYPOXEMIA 07/24/2014 Ot V12.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 EMBOLISM 08/13/2014 LEAH WOLF MD Ot 453.40 ACUTE VENOUS EMBOLISM THROMBOSIS UNSP 08/13/2014 LEAH WOLF MD Ot 453.40 ACUTE VENOUS EMBOLISM THROMBOSIS UNSP 08/13/2014 LEAH WOLF MD Ot V58.61 ANTICOAGULANTS,LT,CURRENT USE 08/27/2014 LEAH WOLF MD Ot V58.61 08/27/2014 LEAH WOLF MD Ot V58.83 09/08/2014 TEDDY PHILIP MD Ot 401.9 HYPERTENSION NOS 09/08/2014 TEDDY PHILIP MD Ot 455.0 INT HEMORRHOID W/O COMPL 09/08/2014 TEDDY PHILIP MD Ot 455.3 EXT HEMORRHOID W/O COMPL 09/08/2014 TEDDY PHILIP MD Ot 496 CHR AIRWAY OBSTRUCT NEC 09/08/2014 TEDDY PHILIP MD Ot 530.11 REFLUX ESOPHAGITIS 09/08/2014 TEDDY PHILIP MD Ot 535.50 UNSP GASTRITIS GASTRODUODENITIS W/O ME 09/08/2014 TEDDY PHILIP MD Ot 562.10 DIVERTICULOSIS COLON (W/O MENT OF HEMORR 09/08/2014 TEDDY PHILIP MD Ot V12.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 EMBOLISM 09/08/2014 TEDDY PHILIP MD Ot V12.55 PERSONAL HISTORY OF PULMONARY EMBOLISM 09/08/2014 TEDDY PHILIP MD Ot V58.61 ANTICOAGULANTS,LT,CURRENT USE 09/09/2014 Ot 238.71 09/09/2014 Ot 288.60 09/09/2014 Ot 599.0 09/09/2014 Ot 782.7 09/09/2014 Ot V45.77 09/09/2014 Ot V58.69 09/09/2014 Ot 780.79 09/09/2014 Ot 791.9 09/09/2014 Ot 453.40 09/09/2014 Ot V58.61 09/09/2014 Ot 453.40 09/09/2014 Ot 599.0 09/09/2014 Ot V58.61 09/09/2014 Ot 285.9 09/09/2014 Ot 453.40 09/09/2014 Ot V58.61 09/09/2014 Ot 453.40 09/09/2014 Ot V58.61 09/09/2014 Ot 459.0 09/09/2014 Ot 285.9 09/09/2014 Ot 453.40 09/09/2014 Ot V58.61 09/09/2014 Ot 453.40 09/09/2014 Ot V58.61 09/09/2014 Ot 453.40 09/09/2014 Ot V58.61 09/09/2014 Ot 238.71 09/09/2014 Ot 453.50 09/09/2014 Ot V58.61 09/09/2014 Ot V58.69 09/09/2014 Ot 285.9 09/09/2014 Ot 300.00 09/09/2014 Ot 401.9 09/09/2014 Ot 451.11 09/09/2014 Ot 493.20 09/09/2014 Ot 530.81 09/09/2014 Ot V58.69 09/09/2014 Ot 285.9 09/09/2014 Ot 453.40 09/09/2014 Ot V58.61 09/09/2014 Ot 276.8 09/09/2014 Ot 287.9 09/09/2014 Ot V12.3 09/09/2014 Ot 786.09 09/09/2014 Ot 786.50 09/09/2014 Ot 786.09 09/09/2014 Ot 786.50 09/09/2014 Ot 793.89 09/09/2014 Ot V76.12 09/09/2014 Ot 238.71 09/09/2014 Ot 355.9 09/09/2014 Ot 453.50 09/09/2014 Ot V58.61 09/09/2014 Ot V58.69 09/09/2014 Ot 272.4 09/09/2014 Ot 414.01 09/09/2014 Ot V58.69 09/09/2014 Ot 793.81 09/09/2014 Ot 285.9 09/09/2014 Ot 782.7 09/09/2014 Ot V12.51 09/09/2014 Ot 453.40 09/09/2014 Ot 793.81 09/09/2014 Ot V72.83 09/09/2014 Ot 272.4 09/09/2014 Ot 401.9 09/09/2014 Ot 285.9 09/09/2014 Ot 782.7 09/09/2014 Ot 790.29 09/09/2014 Ot V12.51 09/09/2014 Ot 453.40 09/09/2014 Ot 786.50 09/09/2014 Ot 786.50 09/09/2014 Ot 356.9 09/09/2014 Ot 453.50 09/09/2014 Ot V58.61 09/09/2014 Ot V58.69 09/09/2014 Ot 356.9 09/09/2014 Ot 453.50 09/09/2014 Ot 496 09/09/2014 Ot 782.3 09/09/2014 Ot V58.61 09/09/2014 Ot V58.69 09/09/2014 Ot 272.4 09/09/2014 Ot 453.50 09/09/2014 Ot 496 09/09/2014 Ot 782.7 09/09/2014 Ot V58.69 09/09/2014 Ot 611.89 09/09/2014 Ot V15.89 09/09/2014 Ot V67.09 09/09/2014 Ot 272.4 09/09/2014 Ot 276.8 09/09/2014 Ot 783.5 09/09/2014 Ot 518.89 09/09/2014 Ot 553.21 09/09/2014 Ot 592.0 09/09/2014 Ot 789.00 09/09/2014 Ot 729.5 09/09/2014 Ot V12.51 09/09/2014 Ot 285.9 09/09/2014 Ot 782.7 09/09/2014 Ot 493.90 09/09/2014 Ot 786.05 09/09/2014 Ot 729.5 09/09/2014 Ot 729.81 09/09/2014 Ot 496 09/09/2014 Ot 558.9 09/09/2014 Ot 585.3 09/09/2014 Ot V12.51 09/09/2014 Ot V58.61 09/09/2014 Ot 733.90 09/09/2014 Ot V58.65 09/09/2014 Ot V82.81 09/09/2014 Ot 491.21 09/09/2014 Ot 493.20 09/09/2014 Ot 496 09/09/2014 Ot V76.12 09/09/2014 Ot 473.9 09/09/2014 Ot 556.9 09/09/2014 Ot 238.71 09/09/2014 Ot 496 09/09/2014 Ot 558.9 09/09/2014 Ot 585.3 09/09/2014 Ot 782.3 09/09/2014 Ot V12.51 09/09/2014 Ot V58.61 09/09/2014 Ot V58.69 09/09/2014 Ot 729.82 09/09/2014 Ot 780.4 09/09/2014 Ot 780.93 09/09/2014 Ot 784.0 09/09/2014 Ot V81.5 09/09/2014 Ot 397.0 09/09/2014 Ot 401.9 09/09/2014 Ot 424.0 09/09/2014 Ot 780.2 09/09/2014 Ot 780.4 09/09/2014 Ot 272.4 09/09/2014 KALEIGH ROSARIO, SHEILA Nicolas Ot 454.9 09/09/2014 KIRAN GREER FIRE PATROLLER Ot 286.9 09/09/2014 KIRAN GREER FIRE PATROLLER Ot 496 09/09/2014 KIRAN GREER FIRE PATROLLER Ot 564.1 09/09/2014 KIRAN GREER FIRE PATROLLER Ot 585.3 09/09/2014 KIRAN GREER FIRE PATROLLER Ot V12.51 09/09/2014 KIRAN GREER FIRE PATROLLER Ot V12.55 09/09/2014 KIRAN GREER FIRE PATROLLER Ot V58.61 09/09/2014 KIRAN GREER FIRE PATROLLER Ot V58.69 09/09/2014 LUCIANO ROSARIO, LEAH Jacome Ot 611.71 09/09/2014 LUCIANO ROSARIO, LEAH Jacome Ot 611.72 09/09/2014 LUCIANO ROSARIO, LEAH Jacome Ot 786.05 09/09/2014 Ot V12.51 09/09/2014 Ot V12.55 09/09/2014 Ot 686.9 09/09/2014 LUCIANO ROSARIO, LEAH Jacome Ot 724.2 09/09/2014 LUCIANO ROSARIO, LEAH Jacome Ot 721.3 09/09/2014 Ot 454.9 09/09/2014 Ot 998.83 09/09/2014 Ot 998.89 09/09/2014 ELLEN ROSARIO, HOWARD Logan Ot 354.2 09/09/2014 ELLEN ROSARIO, HOWARD Logan Ot V72.63 09/09/2014 ELLEN ROSARIO, HOWARD P Ot V74.8 09/09/2014 LUCIANO ROSARIO, LEAH Jacome Ot 496 09/09/2014 LUCIANO ROSARIO, LEAH Jacome Ot 486 09/09/2014 BERNABE TERRI LOVE Ot 414.00 09/09/2014 BERNABE LOVE, TERRI Nicolas Ot 493.20 09/09/2014 BERNABETERRI THAPA DO Ot 530.81 09/09/2014 BERNABETERRI THAPA DO Ot 786.09 09/09/2014 LUCIANO ROSAROI, LEAH Jacome Ot 789.06 09/09/2014 ALDOGenophenTORI PA, AKIKO K Ot 401.9 09/09/2014 CARLSON-TORI PA, AKIKO K Ot 414.00 09/09/2014 ALDOGenophenTORI PA, AKIKO K Ot 780.2 09/09/2014 ALDO-TORI PA, AKIKO K Ot 786.50 09/09/2014 EULALIA PA, AKIKO K Ot V12.55 09/09/2014 CARLSONGenophenTORI PA, AKIKO K Ot 401.9 09/09/2014 CARLSONGenophenTORI PA, AKIKO K Ot 414.00 09/09/2014 CARLSONGenophenTORI PA, AKIKO K Ot 780.2 09/09/2014 CARLSON-TORI PA, AKIKO K Ot 785.1 09/09/2014 CARLSON-TORI PA, AKIKO K Ot 786.50 09/09/2014 CARLSON-TORI PA, AKIKO K Ot V12.51 09/09/2014 CARLSON-TORI PA, AKIKO K Ot V12.55 09/09/2014 ADAM BARON DO Ot 285.9 09/09/2014 LUCIANO ROSARIO, LEAH Jacome Ot V76.12 09/09/2014 LUCIANO ROSARIO, LEAH Jcaome Ot 719.46 09/09/2014 EULALIA PA, AKIKO K Ot 272.4 09/09/2014 LUCIANO ROSARIO, LEAH Jacome Ot V58.62 09/09/2014 LUCIANO ROSARIO, LEAH Jacome Ot V58.83 09/09/2014 LUCIANO ROSARIO, LEAH Jacome Ot V58.61 09/09/2014 LUCIANOLEAH Bullard MD Ot V58.83 09/09/2014 TEDDY PHILIP MD Ot V72.84 09/14/2014 LEAH WOLF MD Ot 477.9 ALLERGIC RHINITIS NOS 09/14/2014 LEAH WOLF MD Ot 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, W (ACUTE) EX 09/14/2014 LEAH WOLF MD Ot 848.8 SPRAIN NEC 09/14/2014 LEAH WOLF MD, Ot E927.8 OTH OVEREXERTION STRENUOUS REPETITIV 09/14/2014 LEAH WOLF MD Ot V12.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 EMBOLISM 09/23/2014 SHELL FOX MD Ot 842.00 SPRAIN OF WRIST NOS 09/23/2014 SHELL FOX MD Ot 922.32 BUTTOCK CONTUSION 09/23/2014 SHELL FOX MD Ot 959.3 ELB/FOREARM/WRST INJ NOS 09/23/2014 SHELL FOX MD Ot E000.8 OTHER EXTERNAL CAUSE STATUS 09/23/2014 SHELL FOX MD Ot E013.9 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 HOUSEHOLD MAINTENANCE 09/23/2014 SHELL FOX MD Ot E849.0 ACCIDENT IN HOME 09/23/2014 SHELL FOX MD Ot E880.9 FALL ON STAIR/STEP NEC 09/28/2014 TEDDY PHILIP MD Ot 401.9 HYPERTENSION NOS 09/28/2014 TEDDY PHILIP MD Ot 493.20 CHRONIC OBSTRUCTIVE ASTHMA, NOS 09/28/2014 TEDDY PHILIP MD Ot 530.81 ESOPHAGEAL REFLUX 09/28/2014 TEDDY PHILIP MD Ot 782.1 NONSPECIF SKIN ERUPT NEC 09/28/2014 TEDDY PHILIP MD Ot 922.32 BUTTOCK CONTUSION 09/28/2014 TEDDY PHILIP MD Ot E849.0 ACCIDENT IN HOME 09/28/2014 TEDDY PHILIP MD Ot E880.9 FALL ON STAIR/STEP NEC 09/28/2014 TEDDY PHILIP MD Ot V12.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 EMBOLISM 09/28/2014 TEDDY PHILIP MD Ot V12.55 PERSONAL HISTORY OF PULMONARY EMBOLISM 09/28/2014 TEDDY PHILIP MD Ot V12.72 PERSONAL HISTORY OF COLONIC POLYPS 09/28/2014 CEDRICK ROSARIO, TEDDY Ot V58.61 ANTICOAGULANTS,LT,CURRENT USE 10/10/2014 KAMRAN LINDQUIST APRN Ot 401.9 HYPERTENSION NOS 10/10/2014 KAMRAN LINDQUIST APRN Ot 491.21 OBSTR CHRONIC BRONCHITIS, W (ACUTE) EXAC 10/10/2014 KAMRAN LINDQUIST APRN Ot 530.81 ESOPHAGEAL REFLUX 10/10/2014 KAMRAN LINDQUIST APRN Ot 786.05 SHORTNESS OF BREATH 10/10/2014 KAMRAN LINDQUIST APRN Ot V12.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 EMBOLISM 10/10/2014 KAMRAN LINDQUIST APRN Ot V58.61 ANTICOAGULANTS,LT,CURRENT USE 11/01/2014 LEAH WOLF MD, Ot V58.61 ANTICOAGULANTS,LT,CURRENT USE 11/01/2014 LEAH WOLF MD Ot V58.83 ENCOUNTER FOR THERAPEUTIC DRUG MONITORIN 11/09/2014 LEAH WOLF MD Ot V58.61 11/09/2014 LEAH WOLF MD Ot V58.83 11/09/2014 LEAH WOLF MD Ot V58.61 11/09/2014 LEAH WOLF MD Ot V58.83 11/10/2014 LEAH WOLF MD Ot V58.61 11/10/2014 LEAH WOLF MD Ot V58.83 11/22/2014 LEAH WOLF MD Ot 789.00 11/29/2014 LEAH WOLF MD Ot V58.61 11/29/2014 LEAH WOLF MD Ot V58.83 12/09/2014 LEAH WOLF MD Ot V76.12 12/20/2014 LEAH WOLF MD Ot V76.12 02/05/2015 SALOMÓN ELY DO Ot 491.21 OBSTR CHRONIC BRONCHITIS, W (ACUTE) EXAC 02/05/2015 SALOMÓN ELY DO Ot 493.21 ASTHMA, CHRONIC OBSTRUCTIVE W ASTHMATICU 02/07/2015 LEAH WOLF MD Ot V58.61 ANTICOAGULANTS,LT,CURRENT USE 02/07/2015 LEAH WOLF MD Ot V58.83 ENCOUNTER FOR THERAPEUTIC DRUG MONITORIN 02/07/2015 LEAH WOLF MD Ot Z51.81 ENCOUNTER FOR THERAPEUTIC DRUG LEVEL MON 02/07/2015 LEAH WOLF MD Ot Z79.01 HALFWAY (CURRENT) USE OF ANTICOAGULANT 03/09/2015 LEAH WOLF MD Ot B19.10 UNSPECIFIED VIRAL HEPATITIS B WITHOUT HE 03/09/2015 LEAH WOLF MD Ot I10 ESSENTIAL (PRIMARY) HYPERTENSION 03/09/2015 LEAH WOLF MD, Ot J40 BRONCHITIS, NOT SPECIFIED ACUTE OR CH 03/09/2015 LEAH WOLF MD, Ot J45.901 UNSPECIFIED ASTHMA WITH (ACUTE) EXACERBA 03/09/2015 LEAH WOLF MD, Ot K21.9 GASTRO-ESOPHAGEAL REFLUX DISEASE WITHOUT 03/09/2015 LEAH WOLF MD, Ot N39.0 URINARY TRACT INFECTION, SITE NOT SPECIF 03/09/2015 LEAH WOLF MD, Ot Z87.891 PERSONAL HISTORY OF NICOTINE DEPENDENCE 04/16/2015 JESUS ROSARIO, FELIBERTO Clayton Ot F17.211 NICOTINE DEPENDENCE, CIGARETTES, IN [place] 04/16/2015 FELIBERTO LEE MD Ot J45.901 UNSPECIFIED ASTHMA WITH (ACUTE) EXACERBA 05/16/2015 LEAH WOLF MD Ot R41.3 05/24/2015 Ot 793.81 05/24/2015 Ot V72.83 05/24/2015 Ot 272.4 05/24/2015 Ot 401.9 05/24/2015 Ot 285.9 05/24/2015 Ot 782.7 05/24/2015 Ot 790.29 05/24/2015 Ot V12.51 05/24/2015 Ot 453.40 05/24/2015 Ot 786.50 05/24/2015 Ot 786.50 05/24/2015 Ot 356.9 05/24/2015 Ot 453.50 05/24/2015 Ot V58.61 05/24/2015 Ot V58.69 05/24/2015 Ot 356.9 05/24/2015 Ot 453.50 05/24/2015 Ot 496 05/24/2015 Ot 782.3 05/24/2015 Ot V58.61 05/24/2015 Ot V58.69 05/24/2015 Ot 272.4 05/24/2015 Ot 453.50 05/24/2015 Ot 496 05/24/2015 Ot 782.7 05/24/2015 Ot V58.69 05/24/2015 Ot 611.89 05/24/2015 Ot V15.89 05/24/2015 Ot V67.09 05/24/2015 Ot 272.4 05/24/2015 Ot 276.8 05/24/2015 Ot 783.5 05/24/2015 Ot 518.89 05/24/2015 Ot 553.21 05/24/2015 Ot 592.0 05/24/2015 Ot 789.00 05/24/2015 Ot 729.5 05/24/2015 Ot V12.51 05/24/2015 Ot 285.9 05/24/2015 Ot 782.7 05/24/2015 Ot 493.90 05/24/2015 Ot 786.05 05/24/2015 Ot 729.5 05/24/2015 Ot 729.81 05/24/2015 Ot 496 05/24/2015 Ot 558.9 05/24/2015 Ot 585.3 05/24/2015 Ot V12.51 05/24/2015 Ot V58.61 05/24/2015 Ot 733.90 05/24/2015 Ot V58.65 05/24/2015 Ot V82.81 05/24/2015 Ot 491.21 05/24/2015 Ot 493.20 05/24/2015 Ot 496 05/24/2015 Ot V76.12 05/24/2015 Ot 473.9 05/24/2015 Ot 556.9 05/24/2015 Ot 238.71 05/24/2015 Ot 496 05/24/2015 Ot 558.9 05/24/2015 Ot 585.3 05/24/2015 Ot 782.3 05/24/2015 Ot V12.51 05/24/2015 Ot V58.61 05/24/2015 Ot V58.69 05/24/2015 Ot 729.82 05/24/2015 Ot 780.4 05/24/2015 Ot 780.93 05/24/2015 Ot 784.0 05/24/2015 Ot V81.5 05/24/2015 Ot 397.0 05/24/2015 Ot 401.9 05/24/2015 Ot 424.0 05/24/2015 Ot 780.2 05/24/2015 Ot 780.4 05/24/2015 Ot 272.4 05/24/2015 KALEIGH ROSARIO, SHEILA Nicolas Ot 454.9 05/24/2015 KIRAN GREER FIRE PATROLLER Ot 286.9 05/24/2015 KIRAN GREER FIRE PATROLLER Ot 496 05/24/2015 KIRAN GREER S FIRE PATROLLER Ot 564.1 05/24/2015 GREERKIRAN Clayton S FIRE PATROLLER Ot 585.3 05/24/2015 GREERKIRAN Clayton S FIRE PATROLLER Ot V12.51 05/24/2015 GREERKIRAN Clayton S FIRE PATROLLER Ot V12.55 05/24/2015 KIRAN GREER S FIRE PATROLLER Ot V58.61 05/24/2015 KIRAN GREER FIRE PATROLLER Ot V58.69 05/24/2015 LUCIANO ROSARIO, LEAH Jacome Ot 611.71 05/24/2015 LUCIANO ROSARIO, LEAH Jacome Ot 611.72 05/24/2015 LUCIANO ROSARIO, LEAH Jacome Ot 786.05 05/24/2015 Ot V12.51 05/24/2015 Ot V12.55 05/24/2015 Ot 686.9 05/24/2015 LUCIANO ROSARIO, LEAH Jacome Ot 724.2 05/24/2015 LUCIANO ROSARIO, LEAH Jacome Ot 721.3 05/24/2015 Ot 454.9 05/24/2015 Ot 998.83 05/24/2015 Ot 998.89 05/24/2015 ELLEN ROSARIO, HOWARD Logan Ot 354.2 05/24/2015 ELLEN ROSARIO, HOWARD Logan Ot V72.63 05/24/2015 ELLEN ROSARIO, HOWARD Logan Ot V74.8 05/24/2015 LUCIANO ROSARIO, LEAH Jacome Ot 496 05/24/2015 LUCIANO ROSARIO, LEAH Jacmoe Ot 486 05/24/2015 TERRI KIDD DO Ot 414.00 05/24/2015 TERRI KIDD DO Ot 493.20 05/24/2015 TERRI KIDD DO Ot 530.81 05/24/2015 TERRI KIDD DO Ot 786.09 05/24/2015 LUCIANO ROSARIO, LEAH Jacome Ot 789.06 05/24/2015 CARLSON-TORI PA, AKIKO K Ot 401.9 05/24/2015 ACRLSON-TORI PA, AKIKO K Ot 414.00 05/24/2015 CARLSON-TORI PA, AKIKO K Ot 780.2 05/24/2015 CARLSON-TORI PA, AKIKO K Ot 786.50 05/24/2015 CARLSON-TORI PA, AKIKO K Ot V12.55 05/24/2015 CARLSON-TORI PA, AKIKO K Ot 401.9 05/24/2015 CARLSON-TORI PA, AKIKO K Ot 414.00 05/24/2015 CARLSON-TORI PA, AKIKO K Ot 780.2 05/24/2015 CARLSON-TORI PA, AKIKO K Ot 785.1 05/24/2015 CARLSON-TORI PA, AKIKO K Ot 786.50 05/24/2015 CARLSON-TORI PA, AKIKO K Ot V12.51 05/24/2015 CARLSON-TORI PA, AKIKO K Ot V12.55 05/24/2015 ADAM BARON DO Ot 285.9 05/24/2015 LUCIANO ROSARIO, LEAH Jacome Ot V76.12 05/24/2015 LUCIANO ROSARIO, LEAH Jacome Ot 719.46 05/24/2015 CARLSON-TORI PA, AKIKO K Ot 272.4 05/24/2015 LUCIANO ROSARIO, LEAH Jacome Ot V58.62 05/24/2015 LUCIANO ROSARIO, LEAH Jacome Ot V58.83 05/24/2015 CEDRICK ROSARIO, TEDDY Ot V72.84 05/24/2015 LUCIANO ROSARIO, LEAH Jacome Ot 789.00 05/24/2015 LUCIANO ROSARIO, LEAH Jacome Ot V76.12 05/24/2015 LUCIANO ROSARIO, LEAH Jacome Ot V58.61 05/24/2015 LUCIANO ROSARIO, LEAH Jacome Ot V58.83 05/24/2015 LUCIANO ROSARIO, LEAH Jacome Ot R41.3 05/24/2015 LUCIANO ROSARIO, LEAH Jacome Ot V58.61 05/24/2015 LUCIANO ROSARIO, LEAH Jacome Ot V58.83 06/08/2015 LUCIANO ROSARIO, LEAH Jacome Ot N64.4 06/08/2015 KAMRAN LINDQUIST STEM MOUNTER Ot F17.211 NICOTINE DEPENDENCE, CIGARETTES, IN [place] 06/08/2015 KAMRAN LINDQUIST STEM MOUNTER Ot J44.1 CHRONIC OBSTRUCTIVE PULMONARY DISEASE W 06/17/2015 KAMRAN LINDQUIST STEM MOUNTER Ot F17.211 06/17/2015 KAMRAN LINDQUIST STEM MOUNTER Ot J44.1 06/23/2015 LEAH WOLF MD, Ot B19.10 UNSPECIFIED VIRAL HEPATITIS B WITHOUT HE 06/23/2015 LEAH WOLF MD Ot F41.9 ANXIETY DISORDER, UNSPECIFIED 06/23/2015 LEAH WOLF MD, Ot I10 ESSENTIAL (PRIMARY) HYPERTENSION 06/23/2015 LEAH WOLF MD, Ot J20.9 ACUTE BRONCHITIS, UNSPECIFIED 06/23/2015 LEAH WOLF MD, Ot J45.901 UNSPECIFIED ASTHMA WITH (ACUTE) EXACERBA 06/23/2015 LEAH WOLF MD, Ot K21.9 GASTRO-ESOPHAGEAL REFLUX DISEASE WITHOUT 06/23/2015 LEAH WOLF MD Ot R09.02 HYPOXEMIA 06/23/2015 LEAH WOLF MD Ot R73.9 HYPERGLYCEMIA, UNSPECIFIED 06/23/2015 LEAH WOLF MD, Ot Z87.891 PERSONAL HISTORY OF NICOTINE DEPENDENCE 06/24/2015 LEAH WOLF MD Ot Z51.81 06/24/2015 LEAH WOLF MD, Ot Z79.1 08/16/2015 LEAH WOLF MD, Ot B19.10 UNSPECIFIED VIRAL HEPATITIS B WITHOUT HE 08/16/2015 LEAH WOLF MD Ot I10 ESSENTIAL (PRIMARY) HYPERTENSION 08/16/2015 LEAH WOLF MD, Ot J02.9 ACUTE PHARYNGITIS, UNSPECIFIED 08/16/2015 LEAH WOLF MD, Ot J18.9 PNEUMONIA, UNSPECIFIED ORGANISM 08/16/2015 LEAH WOLF MD, Ot J45.901 UNSPECIFIED ASTHMA WITH (ACUTE) EXACERBA 08/16/2015 LEAH WOLF MD, Ot K21.9 GASTRO-ESOPHAGEAL REFLUX DISEASE WITHOUT 08/16/2015 LEAH WOLF MD Ot R09.02 HYPOXEMIA 08/16/2015 LEAH WOLF MD, Ot Z87.891 PERSONAL HISTORY OF NICOTINE DEPENDENCE 2015 LEAH WOLF MD Ot Z51.81 ENCOUNTER FOR THERAPEUTIC DRUG LEVEL MON 2015 LEAH WOLF MD, Ot Z79.1 HALFWAY (CURRENT) USE OF NON-STEROIDAL 08/28/2015 LEAH WOLF MD, Ot Z51.81 ENCOUNTER FOR THERAPEUTIC DRUG LEVEL MON 08/28/2015 LEAH WOLF MD, Ot Z79.1 TURN DOWN WORKER (CURRENT) USE OF NON-STEROIDAL 08/30/2015 LEAH WOLF MD Ot R91.8 OTHER NONSPECIFIC ABNORMAL FINDING OF SLIM 09/05/2015 AKIKO NAVARRO K Ot E78.0 PURE HYPERCHOLESTEROLEMIA 09/05/2015 AKIKO NAVARRO K Ot I10 ESSENTIAL (PRIMARY) HYPERTENSION 09/05/2015 AKIKO NAVARRO Ot I25.10 ATHSCL HEART DISEASE OF [place] CORONARY 09/05/2015 ALTON NAVARROTH K Ot R55 SYNCOPE AND COLLAPSE 09/08/2015 AKIKO NAVARRO K Ot E78.0 PURE HYPERCHOLESTEROLEMIA 09/08/2015 EULALIA BREWSTER AKIKO K Ot I10 ESSENTIAL (PRIMARY) HYPERTENSION 09/08/2015 ALTON NAVARROTH K Ot I25.10 ATHSCL HEART DISEASE OF [place] CORONARY 09/08/2015 AKIKO NAVARRO K Ot R55 SYNCOPE AND COLLAPSE 09/09/2015 LEAH WOLF MD Ot R91.8 OTHER NONSPECIFIC ABNORMAL FINDING OF SLIM 09/12/2015 TEDDY PHILIP MD Ot K43.2 INCISIONAL HERNIA WITHOUT OBSTRUCTION OR 09/12/2015 TEDDY PHILIP MD Ot Z01.818 ENCOUNTER FOR OTHER PREPROCEDURAL EXAMIN 09/13/2015 TEDDY PHILIP MD Ot K43.2 INCISIONAL HERNIA WITHOUT OBSTRUCTION OR 09/13/2015 TEDDY PHILIP MD Ot Z01.818 ENCOUNTER FOR OTHER PREPROCEDURAL EXAMIN 09/14/2015 AKIKO NAVARRO K Ot E78.0 PURE HYPERCHOLESTEROLEMIA 09/14/2015 EULALIA BREWSTER AKIKO K Ot I10 ESSENTIAL (PRIMARY) HYPERTENSION 09/14/2015 AKIKO NAVARRO Ot I25.10 ATHSCL HEART DISEASE OF [place] CORONARY 09/14/2015 AKIKO NAVARRO Ot R55 SYNCOPE AND COLLAPSE 09/16/2015 TEDDY PHILIP MD, Ot 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 09/16/2015 TEDDY PHILIP MD, Ot K43.2 INCISIONAL HERNIA WITHOUT OBSTRUCTION OR 09/16/2015 TEDDY PHILIP MD, Ot T85.79XA INFECT/INFLM REACTION DUE TO OTH INT PRO 09/16/2015 TEDDY PHILIP MD, Ot 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 OF ANTICOAGULANT 09/17/2015 ALVA BENJAMIN MD, Ot E87.6 HYPOKALEMIA 09/17/2015 ALVA BENJAMIN MD, Ot L98.491 NON-PRS CHRONIC ULCER SKIN/ SITES LIMITE 09/17/2015 ALVA BENJAMIN MD Ot N39.0 URINARY TRACT INFECTION, SITE NOT SPECIF 09/17/2015 ALVA BENJAMIN MD Ot R42 DIZZINESS AND GIDDINESS 09/17/2015 ALVA BENJAMIN MD Ot Z87.891 PERSONAL HISTORY OF NICOTINE DEPENDENCE 09/17/2015 ALVA BENJAMIN MD Ot Z98.89 OTHER SPECIFIED POSTPROCEDURAL STATES 09/19/2015 LEAH WOLF MD Ot Z51.81 ENCOUNTER FOR THERAPEUTIC DRUG LEVEL MON 09/19/2015 LEAH WOLF MD Ot Z79.1 HALFWAY (CURRENT) USE OF NON-STEROIDAL 09/19/2015 ALVA BENJAMIN MD Ot E87.6 HYPOKALEMIA 09/19/2015 ALVA BENJAMIN MD Ot L98.491 NON-PRS CHRONIC ULCER SKIN/ SITES LIMITE 09/19/2015 ALVA BENJAMIN MD Ot N39.0 URINARY TRACT INFECTION, SITE NOT SPECIF 09/19/2015 ALVA BENJAMIN MD, Ot R42 DIZZINESS AND GIDDINESS 09/19/2015 ALVA BENJAMIN MD Ot Z87.891 PERSONAL HISTORY OF NICOTINE DEPENDENCE 09/19/2015 ALVA BENJAMIN MD Ot Z98.89 OTHER SPECIFIED POSTPROCEDURAL STATES 09/24/2015 FELIBERTO LEE MD Ot S93.492A SPRAIN OF OTHER LIGAMENT OF LEFT ANKLE, 09/24/2015 FELIBERTO LEE MD Ot W01.0XXA FALL SAME LEV FROM SLIP/TRIP W/O STRIKE 09/24/2015 FELIBERTO LEE MD Ot Y99.8 OTHER EXTERNAL CAUSE STATUS 09/28/2015 TEDDY PHILIP MD, Ot 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 09/28/2015 TEDDY PHILIP MD, Ot K43.2 INCISIONAL HERNIA WITHOUT OBSTRUCTION OR 09/28/2015 TEDDY PHILIP MD Ot T85.79XA INFECT/INFLM REACTION DUE TO OTH INT PRO 09/28/2015 TEDDY PHILIP MD Ot Z79.01 HALFWAY (CURRENT) USE OF ANTICOAGULANT 10/12/2015 Ot 401.9 10/12/2015 Ot 493.92 10/12/2015 Ot 786.05 10/12/2015 Ot 786.59 10/12/2015 Ot V58.69 10/13/2015 KAMRAN LINDQUIST APRN Ot J44.1 CHRONIC OBSTRUCTIVE PULMONARY DISEASE W 10/13/2015 KAMRAN LINDQUIST APRN Ot 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, PART UNSP, W/O PERF O 10/13/2015 KAMRAN LINDQUIST APRN Ot N20.0 CALCULUS OF KIDNEY 10/14/2015 KAMRAN LINDQUIST APRN Ot J44.1 CHRONIC OBSTRUCTIVE PULMONARY DISEASE W 10/14/2015 KAMRAN LINDQUIST APRN Ot 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, PART UNSP, W/O PERF O 10/14/2015 KAMRAN LINDQUIST APRN Ot N20.0 CALCULUS OF KIDNEY 10/14/2015 KAMRAN LINDQUIST APRN Ot J44.1 CHRONIC OBSTRUCTIVE PULMONARY DISEASE W 10/14/2015 KAMRAN LINDQUIST APRN Ot 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, PART UNSP, W/O PERF O 10/14/2015 KAMRAN LINDQUIST APRN Ot N20.0 CALCULUS OF KIDNEY 10/15/2015 KAMRAN LINDQUIST APRN Ot J44.1 CHRONIC OBSTRUCTIVE PULMONARY DISEASE W 10/15/2015 KAMRAN LINDQUIST APRN Ot 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, PART UNSP, W/O PERF O 10/15/2015 KAMRAN LINDQUIST APRN Ot N20.0 CALCULUS OF KIDNEY 11/07/2015 SALOMÓN ELY DO Ot J30.2 OTHER SEASONAL ALLERGIC RHINITIS 11/07/2015 SALOMÓN ELY DO Ot J44.1 CHRONIC OBSTRUCTIVE PULMONARY DISEASE W 11/08/2015 SALOMÓN ELY DO Ot J30.2 OTHER SEASONAL ALLERGIC RHINITIS 11/08/2015 SALOMÓN ELY DO, Ot J44.1 CHRONIC OBSTRUCTIVE PULMONARY DISEASE W 11/27/2015 LEAH WOLF MD, Ot Z51.81 ENCOUNTER FOR THERAPEUTIC DRUG LEVEL MON 11/27/2015 LEAH WOLF MD, Ot 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 OF ANTICOAGULANT 11/27/2015 LEAH WOLF MD, Ot Z79.1 HALFWAY (CURRENT) USE OF NON-STEROIDAL 11/28/2015 LEAH WOLF MD, Ot Z51.81 ENCOUNTER FOR THERAPEUTIC DRUG LEVEL MON 11/28/2015 LEAH WOLF MD, Ot Z79.01 HALFWAY (CURRENT) USE OF ANTICOAGULANT 11/30/2015 WARNER ECKERT DOA Rivas Ot J06.9 ACUTE UPPER RESPIRATORY INFECTION, UNSPE 11/30/2015 WARNER ECKERT DOA Rivas Ot J44.1 CHRONIC OBSTRUCTIVE PULMONARY DISEASE W 11/30/2015 BABAR LOVE STEPHANIE K Ot R05 COUGH 12/01/2015 WARNER ECKERT DOA Rivas Ot J06.9 ACUTE UPPER RESPIRATORY INFECTION, UNSPE 12/01/2015 STEPHANIE ECKERT DO Ot J44.1 CHRONIC OBSTRUCTIVE PULMONARY DISEASE W 12/01/2015 WARNER ECKERT DOA K Ot R05 COUGH 12/09/2015 LEAH WOLF MD, Ot Z12.31 ENCNTR SCREEN MAMMOGRAM FOR MALIGNANT NE 12/09/2015 LEAH WOLF MD, Ot Z12.31 ENCNTR SCREEN MAMMOGRAM FOR MALIGNANT NE 12/21/2015 LEAH WOLF MD, Ot Z12.31 ENCNTR SCREEN MAMMOGRAM FOR MALIGNANT NE 01/04/2016 STEPHANIE ECKERT DO Ot J06.9 ACUTE UPPER RESPIRATORY INFECTION, UNSPE 01/04/2016 STEPHANIE ECKERT DO Ot J44.1 CHRONIC OBSTRUCTIVE PULMONARY DISEASE W 01/04/2016 STEPHANIE ECKERT DO Ot R05 COUGH 01/24/2016 KAMRAN LINDQUIST APRN Ot I10 ESSENTIAL (PRIMARY) HYPERTENSION 01/24/2016 KAMRAN LINDQUIST APRN Ot J44.1 CHRONIC OBSTRUCTIVE PULMONARY DISEASE W 01/24/2016 KAMRAN LINDQUIST APRN Ot R06.2 WHEEZING 01/24/2016 KAMRAN LINDQUIST APRN Ot 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 OF ANTICOAGULANT 01/24/2016 KAMRAN LINDQUIST APRN Ot Z79.899 OTHER HALFWAY (CURRENT) DRUG THERAPY 01/24/2016 KAMRAN LINDQUIST APRN Ot Z86.718 PERSONAL HISTORY OF OTHER VENOUS THROMBO 01/24/2016 KAMRAN LINDQUIST APRN Ot Z87.891 PERSONAL HISTORY OF NICOTINE DEPENDENCE 01/26/2016 KAMRAN LINDQUIST APRN Ot I10 ESSENTIAL (PRIMARY) HYPERTENSION 01/26/2016 KAMRAN LINDQUIST APRN Ot J44.1 CHRONIC OBSTRUCTIVE PULMONARY DISEASE W 01/26/2016 KAMRAN LINDQUIST APRN Ot R06.2 WHEEZING 01/26/2016 KAMRAN LINDQUIST APRN Ot 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 OF ANTICOAGULANT 01/26/2016 KAMRAN LINDQUIST APRN Ot Z79.899 OTHER HALFWAY (CURRENT) DRUG THERAPY 01/26/2016 KAMRAN LINDQUIST APRN Ot Z86.718 PERSONAL HISTORY OF OTHER VENOUS THROMBO 01/26/2016 KAMRAN LINDQUIST APRN Ot Z87.891 PERSONAL HISTORY OF NICOTINE DEPENDENCE 01/31/2016 LEAH WOLF MD Ot Z51.81 ENCOUNTER FOR THERAPEUTIC DRUG LEVEL MON 01/31/2016 LEAH WOLF MD, Ot Z79.01 HALFWAY (CURRENT) USE OF ANTICOAGULANT 01/31/2016 LEAH WOLF MD, Ot Z86.718 PERSONAL HISTORY OF OTHER VENOUS THROMBO 02/09/2016 Ot 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 02/09/2016 Ot 496 CHR AIRWAY OBSTRUCT NEC 02/09/2016 Ot 782.7 SPONTANEOUS ECCHYMOSES 02/09/2016 Ot V58.69 OTH MED,LT, CURRENT USE 02/09/2016 Ot 611.89 OTHER SPECIFIED DISORDERS OF BREAST 02/09/2016 Ot V15.89 HX-HEALTH HAZARDS NEC 02/09/2016 Ot V67.09 SURGERY FOLLOW-UP, OTHER SURGERY 02/09/2016 Ot 272.4 HYPERLIPIDEMIA NEC/NOS 02/09/2016 Ot 276.8 HYPOPOTASSEMIA 02/09/2016 Ot 783.5 POLYDIPSIA 02/09/2016 Ot 518.89 OTHER DISEASES OF LUNG, NEC 02/09/2016 Ot 553.21 INCISIONAL HERNIA 02/09/2016 Ot 592.0 CALCULUS OF KIDNEY 02/09/2016 Ot 789.00 ABDOMINAL PAIN, UNSPECIFIED SITE 02/09/2016 Ot 729.5 PAIN IN LIMB 02/09/2016 Ot V12.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 EMBOLISM 02/09/2016 Ot 285.9 ANEMIA NOS 02/09/2016 Ot 782.7 SPONTANEOUS ECCHYMOSES 02/09/2016 Ot 493.90 ASTHMA, UNSPECIFIED 02/09/2016 Ot 786.05 SHORTNESS OF BREATH 02/09/2016 Ot 729.5 PAIN IN LIMB 02/09/2016 Ot 729.81 SWELLING OF LIMB 02/09/2016 Ot 496 CHR AIRWAY OBSTRUCT NEC 02/09/2016 Ot 558.9 NONINF GASTROENTERIT NEC 02/09/2016 Ot 585.3 CHRONIC KIDNEY DISEASE, STAGE III (MODER 02/09/2016 Ot V12.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 EMBOLISM 02/09/2016 Ot V58.61 ANTICOAGULANTS,LT,CURRENT USE 02/09/2016 Ot 733.90 BONE CARTILAGE DIS NOS 02/09/2016 Ot V58.65 LONG-TERM( CURRENT)USE OF STEROIDS 02/09/2016 Ot V82.81 SCREENING FOR OSTEOPOROSIS 02/09/2016 Ot 491.21 OBSTR CHRONIC BRONCHITIS, W (ACUTE) EXAC 02/09/2016 Ot 493.20 CHRONIC OBSTRUCTIVE ASTHMA, NOS 02/09/2016 Ot 496 CHR AIRWAY OBSTRUCT NEC 02/09/2016 Ot V76.12 OTH SCREEN MAMMO-MALIGN NEOPLASM OF [place] 02/09/2016 Ot 473.9 CHRONIC SINUSITIS NOS 02/09/2016 Ot 556.9 ULCERATIVE COLITIS, UNSPECIFIED 02/09/2016 Ot 238.71 ESSENTIAL THROMBOCYTHEMIA 02/09/2016 Ot 496 CHR AIRWAY OBSTRUCT NEC 02/09/2016 Ot 558.9 NONINF GASTROENTERIT NEC 02/09/2016 Ot 585.3 CHRONIC KIDNEY DISEASE, STAGE III (MODER 02/09/2016 Ot 782.3 EDEMA 02/09/2016 Ot V12.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 EMBOLISM 02/09/2016 Ot V58.61 ANTICOAGULANTS,LT,CURRENT USE 02/09/2016 Ot V58.69 OTH MED,LT, CURRENT USE 02/09/2016 Ot 729.82 CRAMP IN LIMB 02/09/2016 Ot 780.4 DIZZINESS AND GIDDINESS 02/09/2016 Ot 780.93 MEMORY LOSS 02/09/2016 Ot 784.0 HEADACHE 02/09/2016 Ot V81.5 SCREEN FOR NEPHROPATHY 02/09/2016 Ot 397.0 TRICUSPID VALVE DISEASE 02/09/2016 Ot 401.9 HYPERTENSION NOS 02/09/2016 Ot 424.0 MITRAL VALVE DISORDER 02/09/2016 Ot 780.2 SYNCOPE AND COLLAPSE 02/09/2016 Ot 780.4 DIZZINESS AND GIDDINESS 02/09/2016 Ot 272.4 HYPERLIPIDEMIA NEC/NOS 02/09/2016 KALEIGH ROSARIO, SHEILA Nicolas Ot 454.9 ASYMPTOMATIC VARICOSE VEINS 02/09/2016 KIRAN GREER FIRE PATROLLER Ot 286.9 COAGULAT DEFECT NEC/NOS 02/09/2016 KIRAN GREER FIRE PATROLLER Ot 496 CHR AIRWAY OBSTRUCT NEC 02/09/2016 KIRAN GREER FIRE PATROLLER Ot 564.1 IRRITABLE BOWEL SYNDROME 02/09/2016 KIRAN GREER FIRE PATROLLER Ot 585.3 CHRONIC KIDNEY DISEASE, STAGE III (MODER 02/09/2016 KIRAN GREER FIRE PATROLLER Ot V12.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 EMBOLISM 02/09/2016 KIRAN GREER FIRE PATROLLER Ot V12.55 PERSONAL HISTORY OF PULMONARY EMBOLISM 02/09/2016 KIRAN GREER FIRE PATROLLER Ot V58.61 ANTICOAGULANTS,LT,CURRENT USE 02/09/2016 KIRAN GREER FIRE PATROLLER Ot V58.69 OTH MED,LT,CURRENT USE 02/09/2016 LUCIANO ROSARIO, LEAH Jacome Ot 611.71 MASTODYNIA 02/09/2016 LUCIANO ROSARIO, LEAH Jacome Ot 611.72 LUMP OR MASS IN BREAST 02/09/2016 LUCIANO ROSARIO, LEAH Jacome Ot 786.05 SHORTNESS OF BREATH 02/09/2016 Ot V12.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 EMBOLISM 02/09/2016 Ot V12.55 PERSONAL HISTORY OF PULMONARY EMBOLISM 02/09/2016 Ot 686.9 LOCAL SKIN INFECTION NOS 02/09/2016 LUCIANO ROSARIO, LEAH Jacome Ot 724.2 LUMBAGO 02/09/2016 LUCIANO ROSARIO, LEAH Jacome Ot 721.3 LUMBOSACRAL SPONDYLOSIS 02/09/2016 Ot 454.9 ASYMPTOMATIC VARICOSE VEINS 02/09/2016 Ot 998.83 NON-HEALING SURG WOUND 02/09/2016 Ot 998.89 OTHER SPEC COMPLICATIONS OF PROCEDURES N 02/09/2016 ELLEN ROSARIO, HOWARD Logan Ot 354.2 ULNAR NERVE LESION 02/09/2016 ELLEN ROSARIO, HOWARD Logan Ot V72.63 PRE-PROCEDURAL LABORATORY EXAMINATION 02/09/2016 ELLEN ROSARIO, HOWARD Logan Ot V74.8 SCREEN-BACTERIAL DIS NEC 02/09/2016 LUCIANO ROSARIO, LEAH Jacome Ot 496 CHR AIRWAY OBSTRUCT NEC 02/09/2016 LUCIANO ROSARIO, LEAH Jacome Ot 486 PNEUMONIA, ORGANISM NOS 02/09/2016 TERRI KIDD DO Ot 414.00 CORON ATHEROSCLER NOS TYPE VESSEL, NATIV 02/09/2016 TERRI KIDD DO Ot 493.20 CHRONIC OBSTRUCTIVE ASTHMA, NOS 02/09/2016 TERRI KIDD DO Ot 530.81 ESOPHAGEAL REFLUX 02/09/2016 TERRI KIDD DO Ot 786.09 RESPIRATORY ABNORM NEC 02/09/2016 LUCIANO ROSARIO, LEAH Jacome Ot 789.06 ABDOMINAL PAIN, EPIGASTRIC 02/09/2016 AKIKO NAVARRO Ot 401.9 HYPERTENSION NOS 02/09/2016 AKIKO NAVARRO Ot 414.00 CORON ATHEROSCLER NOS TYPE VESSEL, NATIV 02/09/2016 AKIKO NAVARRO Ot 780.2 SYNCOPE AND COLLAPSE 02/09/2016 AKIKO NAVARRO Ot 786.50 CHEST PAIN NOS 02/09/2016 AKIKO NAVARRO Ot V12.55 PERSONAL HISTORY OF PULMONARY EMBOLISM 02/09/2016 AKIKO NAVARRO Ot 401.9 HYPERTENSION NOS 02/09/2016 AKIKO NAVARRO Ot 414.00 CORON ATHEROSCLER NOS TYPE VESSEL, NATIV 02/09/2016 AKIKO NAVARRO Ot 780.2 SYNCOPE AND COLLAPSE 02/09/2016 AKIKO NAVARRO Ot 785.1 PALPITATIONS 02/09/2016 AKIKO NAVARRO Ot 786.50 CHEST PAIN NOS 02/09/2016 AKIKO NAVARRO Ot V12.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 EMBOLISM 02/09/2016 AKIKO NAVARRO Ot V12.55 PERSONAL HISTORY OF PULMONARY EMBOLISM 02/09/2016 LORAINE LOVE ADAM Jennifer Ot 285.9 ANEMIA NOS 02/09/2016 LEAH WOLF MD, Ot V76.12 OTH SCREEN MAMMO-MALIGN NEOPLASM OF [place] 02/09/2016 LEAH WOLF MD Ot 719.46 JOINT PAIN-L/LEG 02/09/2016 AKIKO NAVARRO Ot 272.4 HYPERLIPIDEMIA NEC/NOS 02/09/2016 LEAH WOLF MD, Ot V58.62 ENCOUNT FOR LONG-TERM(CURRENT) USE OF AN 02/09/2016 LEAH WOLF MD Ot V58.83 ENCOUNTER FOR THERAPEUTIC DRUG MONITORIN 02/09/2016 TEDDY PHILIP MD Ot V72.84 EXAM PRE-OPERATIVE NOS 02/09/2016 LEAH WOLF MD Ot 789.00 ABDOMINAL PAIN, UNSPECIFIED SITE 02/09/2016 LEAH WOLF MD Ot V76.12 OTH SCREEN MAMMO-MALIGN NEOPLASM OF [place] 02/09/2016 LEAH WOLF MD Ot N64.4 MASTODYNIA 02/09/2016 LEAH WOLF MD Ot R41.3 OTHER AMNESIA 02/09/2016 LEAH WOLF MD Ot R91.8 OTHER NONSPECIFIC ABNORMAL FINDING OF [place] 02/09/2016 AKIKO NAVARRO Ot E78.0 PURE HYPERCHOLESTEROLEMIA 02/09/2016 AKIKO NAVARRO Ot I10 ESSENTIAL (PRIMARY) HYPERTENSION 02/09/2016 AKIKO NAVARRO Ot I25.10 ATHSCL HEART DISEASE OF [place] CORONARY 02/09/2016 AKIKO NAVARRO Ot R55 SYNCOPE AND COLLAPSE 02/09/2016 LEAH WOLF MD Ot Z51.81 ENCOUNTER FOR THERAPEUTIC DRUG LEVEL MON 02/09/2016 LEAH WOLF MD Ot Z79.01 HALFWAY (CURRENT) USE OF ANTICOAGULANT 02/09/2016 LEAH WLOF MD Ot Z86.718 PERSONAL HISTORY OF OTHER VENOUS THROMBO 02/09/2016 LEAH WOLF MD, Ot Z12.31 ENCNTR SCREEN MAMMOGRAM FOR MALIGNANT NE 03/02/2016 ALVA BENJAMIN MD Ot I10 ESSENTIAL (PRIMARY) HYPERTENSION 03/02/2016 ALVA BENJAMIN MD Ot J44.1 CHRONIC OBSTRUCTIVE PULMONARY DISEASE W 03/02/2016 ALVA BENJAMIN MD Ot R06.02 SHORTNESS OF BREATH 03/02/2016 ALVA BENJAMIN MD Ot Z79.899 OTHER TURN DOWN WORKER (CURRENT) DRUG THERAPY 03/02/2016 ALVA BENJAMIN MD Ot Z86.711 PERSONAL HISTORY OF PULMONARY EMBOLISM 03/02/2016 ALVA BENJAMIN MD Ot Z87.891 PERSONAL HISTORY OF NICOTINE DEPENDENCE 03/05/2016 ALVA BENJAMIN MD Ot I10 ESSENTIAL (PRIMARY) HYPERTENSION 03/05/2016 ALVA BENJAMIN MD, Ot J44.1 CHRONIC OBSTRUCTIVE PULMONARY DISEASE W 03/05/2016 ALVA BENJAMIN MD Ot R06.02 SHORTNESS OF BREATH 03/05/2016 ALVA BENJAMIN MD Ot Z79.899 OTHER TURN DOWN WORKER (CURRENT) DRUG THERAPY 03/05/2016 ALVA BENJAMIN MD Ot Z86.711 PERSONAL HISTORY OF PULMONARY EMBOLISM 03/05/2016 ALVA BENJAMIN MD Ot Z87.891 PERSONAL HISTORY OF NICOTINE DEPENDENCE 03/05/2016 Ot 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 03/05/2016 Ot 496 CHR AIRWAY OBSTRUCT NEC 03/05/2016 Ot 782.7 SPONTANEOUS ECCHYMOSES 03/05/2016 Ot V58.69 OTH MED,LT, CURRENT USE 03/05/2016 Ot 611.89 OTHER SPECIFIED DISORDERS OF BREAST 03/05/2016 Ot V15.89 HX-HEALTH HAZARDS NEC 03/05/2016 Ot V67.09 SURGERY FOLLOW-UP, OTHER SURGERY 03/05/2016 Ot 272.4 HYPERLIPIDEMIA NEC/NOS 03/05/2016 Ot 276.8 HYPOPOTASSEMIA 03/05/2016 Ot 783.5 POLYDIPSIA 03/05/2016 Ot 518.89 OTHER DISEASES OF LUNG, NEC 03/05/2016 Ot 553.21 INCISIONAL HERNIA 03/05/2016 Ot 592.0 CALCULUS OF KIDNEY 03/05/2016 Ot 789.00 ABDOMINAL PAIN, UNSPECIFIED SITE 03/05/2016 Ot 729.5 PAIN IN LIMB 03/05/2016 Ot V12.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 EMBOLISM 03/05/2016 Ot 285.9 ANEMIA NOS 03/05/2016 Ot 782.7 SPONTANEOUS ECCHYMOSES 03/05/2016 Ot 493.90 ASTHMA, UNSPECIFIED 03/05/2016 Ot 786.05 SHORTNESS OF BREATH 03/05/2016 Ot 729.5 PAIN IN LIMB 03/05/2016 Ot 729.81 SWELLING OF LIMB 03/05/2016 Ot 496 CHR AIRWAY OBSTRUCT NEC 03/05/2016 Ot 558.9 NONINF GASTROENTERIT NEC 03/05/2016 Ot 585.3 CHRONIC KIDNEY DISEASE, STAGE III (MODER 03/05/2016 Ot V12.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 EMBOLISM 03/05/2016 Ot V58.61 ANTICOAGULANTS,LT,CURRENT USE 03/05/2016 Ot 733.90 BONE CARTILAGE DIS NOS 03/05/2016 Ot V58.65 LONG-TERM( CURRENT)USE OF STEROIDS 03/05/2016 Ot V82.81 SCREENING FOR OSTEOPOROSIS 03/05/2016 Ot 491.21 OBSTR CHRONIC BRONCHITIS, W (ACUTE) EXAC 03/05/2016 Ot 493.20 CHRONIC OBSTRUCTIVE ASTHMA, NOS 03/05/2016 Ot 496 CHR AIRWAY OBSTRUCT NEC 03/05/2016 Ot V76.12 OTH SCREEN MAMMO-MALIGN NEOPLASM OF [place] 03/05/2016 Ot 473.9 CHRONIC SINUSITIS NOS 03/05/2016 Ot 556.9 ULCERATIVE COLITIS, UNSPECIFIED 03/05/2016 Ot 238.71 ESSENTIAL THROMBOCYTHEMIA 03/05/2016 Ot 496 CHR AIRWAY OBSTRUCT NEC 03/05/2016 Ot 558.9 NONINF GASTROENTERIT NEC 03/05/2016 Ot 585.3 CHRONIC KIDNEY DISEASE, STAGE III (MODER 03/05/2016 Ot 782.3 EDEMA 03/05/2016 Ot V12.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 EMBOLISM 03/05/2016 Ot V58.61 ANTICOAGULANTS,LT,CURRENT USE 03/05/2016 Ot V58.69 OTH MED,LT, CURRENT USE 03/05/2016 Ot 729.82 CRAMP IN LIMB 03/05/2016 Ot 780.4 DIZZINESS AND GIDDINESS 03/05/2016 Ot 780.93 MEMORY LOSS 03/05/2016 Ot 784.0 HEADACHE 03/05/2016 Ot V81.5 SCREEN FOR NEPHROPATHY 03/05/2016 Ot 397.0 TRICUSPID VALVE DISEASE 03/05/2016 Ot 401.9 HYPERTENSION NOS 03/05/2016 Ot 424.0 MITRAL VALVE DISORDER 03/05/2016 Ot 780.2 SYNCOPE AND COLLAPSE 03/05/2016 Ot 780.4 DIZZINESS AND GIDDINESS 03/05/2016 Ot 272.4 HYPERLIPIDEMIA NEC/NOS 03/05/2016 KALEIGH ROSARIO, SHEILA Nicolas Ot 454.9 ASYMPTOMATIC VARICOSE VEINS 03/05/2016 KIRAN GREER S FIRE PATROLLER Ot 286.9 COAGULAT DEFECT NEC/NOS 03/05/2016 KIRAN GREER FIRE PATROLLER Ot 496 CHR AIRWAY OBSTRUCT NEC 03/05/2016 KIRAN GREER S FIRE PATROLLER Ot 564.1 IRRITABLE BOWEL SYNDROME 03/05/2016 KIRAN GERER S FIRE PATROLLER Ot 585.3 CHRONIC KIDNEY DISEASE, STAGE III (MODER 03/05/2016 KIRAN GREER FIRE PATROLLER Ot V12.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 EMBOLISM 03/05/2016 KIRAN GREER FIRE PATROLLER Ot V12.55 PERSONAL HISTORY OF PULMONARY EMBOLISM 03/05/2016 IKRAN GREER FIRE PATROLLER Ot V58.61 ANTICOAGULANTS,LT,CURRENT USE 03/05/2016 KIRAN GREER S FIRE PATROLLER Ot V58.69 OT MED,LT,CURRENT USE 03/05/2016 LUCIANO ROSARIO, LEAH Jacome Ot 611.71 MASTODYNIA 03/05/2016 LEAH WOLF MD Ot 611.72 LUMP OR MASS IN BREAST 03/05/2016 LEAH WOLF MD Ot 786.05 SHORTNESS OF BREATH 03/05/2016 Ot V12.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 EMBOLISM 03/05/2016 Ot V12.55 PERSONAL HISTORY OF PULMONARY EMBOLISM 03/05/2016 Ot 686.9 LOCAL SKIN INFECTION NOS 03/05/2016 LEAH WOLF MD Ot 724.2 LUMBAGO 03/05/2016 LUCIANO ROSARIO, LEAH Jacome Ot 721.3 LUMBOSACRAL SPONDYLOSIS 03/05/2016 Ot 454.9 ASYMPTOMATIC VARICOSE VEINS 03/05/2016 Ot 998.83 NON-HEALING SURG WOUND 03/05/2016 Ot 998.89 OTHER SPEC COMPLICATIONS OF PROCEDURES N 03/05/2016 ELLEN ROSARIO, HOWARD Logan Ot 354.2 ULNAR NERVE LESION 03/05/2016 ELLEN ROSARIO, HOWARD Logan Ot V72.63 PRE-PROCEDURAL LABORATORY EXAMINATION 03/05/2016 HOWARD HUGHES MD Ot V74.8 SCREEN-BACTERIAL DIS NEC 03/05/2016 LUCIANO ROSARIO, LEAH Jacome Ot 496 CHR AIRWAY OBSTRUCT NEC 03/05/2016 LUCIANO ROSARIO, LEAH Jacome Ot 486 PNEUMONIA, ORGANISM NOS 03/05/2016 TERRI KIDD DO Ot 414.00 CORON ATHEROSCLER NOS TYPE VESSEL, NATIV 03/05/2016 TERRI KIDD DO Ot 493.20 CHRONIC OBSTRUCTIVE ASTHMA, NOS 03/05/2016 TERRI KIDD DO Ot 530.81 ESOPHAGEAL REFLUX 03/05/2016 TERRI KIDD DO Ot 786.09 RESPIRATORY ABNORM NEC 03/05/2016 LUCIANO ROSARIO, LEAH Jacome Ot 789.06 ABDOMINAL PAIN, EPIGASTRIC 03/05/2016 AKIKO NAVARRO Ot 401.9 HYPERTENSION NOS 03/05/2016 AKIKO NAVARRO Ot 414.00 CORON ATHEROSCLER NOS TYPE VESSEL, NATIV 03/05/2016 AKIKO NAVARRO Ot 780.2 SYNCOPE AND COLLAPSE 03/05/2016 AKIKO NAVARRO Ot 786.50 CHEST PAIN NOS 03/05/2016 AKIKO NAVARRO Ot V12.55 PERSONAL HISTORY OF PULMONARY EMBOLISM 03/05/2016 AKIKO NAVARRO Ot 401.9 HYPERTENSION NOS 03/05/2016 AKIKO NAVARRO Ot 414.00 CORON ATHEROSCLER NOS TYPE VESSEL, NATIV 03/05/2016 AKIKO NAVARRO Ot 780.2 SYNCOPE AND COLLAPSE 03/05/2016 AKIKO NAVARRO Ot 785.1 PALPITATIONS 03/05/2016 AKIKO NAVARRO Ot 786.50 CHEST PAIN NOS 03/05/2016 AKIKO NAVARRO Ot V12.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 EMBOLISM 03/05/2016 AKIKO NAVARRO Ot V12.55 PERSONAL HISTORY OF PULMONARY EMBOLISM 03/05/2016 ADAM BARON DO Ot 285.9 ANEMIA NOS 03/05/2016 LEAH WOLF MD, Ot V76.12 OTH SCREEN MAMMO-MALIGN NEOPLASM OF [place] 03/05/2016 LEAH WOLF MD Ot 719.46 JOINT PAIN-L/LEG 03/05/2016 AKIKO NAVARRO Ot 272.4 HYPERLIPIDEMIA NEC/NOS 03/05/2016 LEAH WOLF MD, Ot V58.62 ENCOUNT FOR LONG-TERM(CURRENT) USE OF AN 03/05/2016 LEAH WOLF MD, Ot V58.83 ENCOUNTER FOR THERAPEUTIC DRUG MONITORIN 03/05/2016 TEDDY PHILIP MD Ot V72.84 EXAM PRE-OPERATIVE NOS 03/05/2016 LEAH WOLF MD Ot 789.00 ABDOMINAL PAIN, UNSPECIFIED SITE 03/05/2016 LEAH WOLF MD, Ot V76.12 OTH SCREEN MAMMO-MALIGN NEOPLASM OF [place] 03/05/2016 LEAH WOLF MD Ot N64.4 MASTODYNIA 03/05/2016 LEAH WOLF MD Ot R41.3 OTHER AMNESIA 03/05/2016 LEAH WOLF MD Ot R91.8 OTHER NONSPECIFIC ABNORMAL FINDING OF SLIM 03/05/2016 AKIKO NAVARRO Ot E78.0 PURE HYPERCHOLESTEROLEMIA 03/05/2016 AKIKO NAVARRO Ot I10 ESSENTIAL (PRIMARY) HYPERTENSION 03/05/2016 AKIKO NAVARRO Ot I25.10 ATHSCL HEART DISEASE OF [place] CORONARY 03/05/2016 AKIKO NAVARRO Ot R55 SYNCOPE AND COLLAPSE 03/05/2016 LEAH WOLF MD, Ot Z51.81 ENCOUNTER FOR THERAPEUTIC DRUG LEVEL MON 03/05/2016 LEAH WOLF MD, Ot Z79.01 HALFWAY (CURRENT) USE OF ANTICOAGULANT 03/05/2016 LEAH WOLF MD, Ot Z86.718 PERSONAL HISTORY OF OTHER VENOUS THROMBO 03/05/2016 LEAH WOLF MD, Ot Z12.31 ENCNTR SCREEN MAMMOGRAM FOR MALIGNANT NE 03/20/2016 [place] FIRE PATROLLER Ot S86.391S INJ MUSC/TEND PERONEAL GRP AT LOW LEG LE 04/02/2016 LEAH WOLF MD, Ot Z51.81 ENCOUNTER FOR THERAPEUTIC DRUG LEVEL MON 04/02/2016 LEAH WOLF MD, Ot Z79.01 HALFWAY (CURRENT) USE OF ANTICOAGULANT 04/02/2016 LEAH WOLF MD, Ot Z86.718 PERSONAL HISTORY OF OTHER VENOUS THROMBO 04/03/2016 LEAH WOLF MD, Ot Z51.81 ENCOUNTER FOR THERAPEUTIC DRUG LEVEL MON 04/03/2016 LEAH WOLF MD, Ot 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 OF ANTICOAGULANT 04/03/2016 LEAH WOLF MD, Ot Z86.718 PERSONAL HISTORY OF OTHER VENOUS THROMBO 04/03/2016 LEAH WOLF MD, Ot Z51.81 ENCOUNTER FOR THERAPEUTIC DRUG LEVEL MON 04/03/2016 ELAH WOLF MD, Ot 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 OF ANTICOAGULANT 04/03/2016 LEAH WOLF MD, Ot Z86.718 PERSONAL HISTORY OF OTHER VENOUS THROMBO 04/08/2016 LEAH WOLF MD, Ot Z51.81 ENCOUNTER FOR THERAPEUTIC DRUG LEVEL MON 04/08/2016 LEAH WOLF MD, Ot Z79.01 HALFWAY (CURRENT) USE OF ANTICOAGULANT 04/08/2016 LEAH WOLF MD, Ot Z86.718 PERSONAL HISTORY OF OTHER VENOUS THROMBO 04/09/2016 [place] [employer]ER Ot S86.391S INJ MUSC/TEND PERONEAL GRP AT LOW LEG LE 04/16/2016 LEAH WOLF MD, Ot G47.10 HYPERSOMNIA, UNSPECIFIED 04/16/2016 LEAH WOLF MD, Ot G47.30 SLEEP APNEA, UNSPECIFIED 04/16/2016 LEAH WOLF MD, Ot I10 ESSENTIAL (PRIMARY) HYPERTENSION 04/16/2016 LEAH WOLF MD, Ot R06.83 SNORING 04/17/2016 LEAH WOLF MD, Ot G47.10 HYPERSOMNIA, UNSPECIFIED 04/17/2016 LEAH WOLF MD, Ot G47.30 SLEEP APNEA, UNSPECIFIED 04/17/2016 LEAH WOLF MD, Ot I10 ESSENTIAL (PRIMARY) HYPERTENSION 04/17/2016 LEAH WOLF MD, Ot R06.83 SNORING 05/13/2016 Ot 401.9 05/13/2016 Ot 493.92 05/13/2016 Ot 786.05 05/13/2016 Ot 786.59 05/13/2016 Ot V58.69 05/17/2016 LEAH WOLF MD, Ot Z51.81 ENCOUNTER FOR THERAPEUTIC DRUG LEVEL MON 05/17/2016 LEAH WOLF MD, Ot Z79.01 HALFWAY (CURRENT) USE OF ANTICOAGULANT 05/17/2016 LEAH WOLF MD, Ot Z86.718 PERSONAL HISTORY OF OTHER VENOUS THROMBO 05/22/2016 LEAH WOLF MD, Ot Z51.81 ENCOUNTER FOR THERAPEUTIC DRUG LEVEL MON 05/22/2016 LEAH WOLF MD, Ot 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 OF ANTICOAGULANT 05/22/2016 LEAH WOLF MD, Ot Z86.718 PERSONAL HISTORY OF OTHER VENOUS THROMBO 05/30/2016 LEAH WOLF MD, Ot Z51.81 ENCOUNTER FOR THERAPEUTIC DRUG LEVEL MON 05/30/2016 LEAH WOLF MD, Ot 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 OF ANTICOAGULANT 05/30/2016 LEAH WOLF MD, Ot Z86.718 PERSONAL HISTORY OF OTHER VENOUS THROMBO 06/04/2016 KAMRAN LINDQUIST APRN Ot I10 ESSENTIAL (PRIMARY) HYPERTENSION 06/04/2016 KAMRAN LINDQUIST APRN Ot J44.1 CHRONIC OBSTRUCTIVE PULMONARY DISEASE W 06/04/2016 KAMRAN LINDQUIST APRN Ot R05 COUGH 06/04/2016 KAMRAN LINDQUIST APRN Ot Z79.899 OTHER TURN DOWN WORKER (CURRENT) DRUG THERAPY 06/04/2016 KAMRAN LINDQUIST APRN Ot Z87.891 PERSONAL HISTORY OF NICOTINE DEPENDENCE 06/05/2016 KAMRAN LINDQUIST APRN Ot I10 ESSENTIAL (PRIMARY) HYPERTENSION 06/05/2016 KAMRAN LINDQUIST APRN Ot J44.1 CHRONIC OBSTRUCTIVE PULMONARY DISEASE W 06/05/2016 KAMRAN LINDQUIST STEM MOUNTER Ot R05 COUGH 06/05/2016 KAMRAN LINDQUIST APRN Ot Z79.899 OTHER TURN DOWN WORKER (CURRENT) DRUG THERAPY 06/05/2016 KAMRAN LINDQUIST APRN Ot Z87.891 PERSONAL HISTORY OF NICOTINE DEPENDENCE 06/06/2016 KAMRAN LINDQUIST APRN Ot I10 ESSENTIAL (PRIMARY) HYPERTENSION 06/06/2016 KAMRAN LINDQUIST APRN Ot J44.1 CHRONIC OBSTRUCTIVE PULMONARY DISEASE W 06/06/2016 KAMRAN LINDQUIST STEM MOUNTER Ot R05 COUGH 06/06/2016 KAMRAN LINDQUIST APRN Ot Z79.899 OTHER HALFWAY (CURRENT) DRUG THERAPY 06/06/2016 KAMRAN LINDQUIST APRN Ot Z87.891 PERSONAL HISTORY OF NICOTINE DEPENDENCE 06/06/2016 Ot 491.21 OBSTR CHRONIC BRONCHITIS, W (ACUTE) EXAC 06/06/2016 Ot 493.20 CHRONIC OBSTRUCTIVE ASTHMA, NOS 06/06/2016 Ot V12.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 EMBOLISM 06/06/2016 Ot V12.55 PERSONAL HISTORY OF PULMONARY EMBOLISM 06/06/2016 Ot 686.9 LOCAL SKIN INFECTION NOS 06/06/2016 Ot 454.9 ASYMPTOMATIC VARICOSE VEINS 06/06/2016 Ot 998.83 NON-HEALING SURG WOUND 06/06/2016 Ot 998.89 OTHER SPEC COMPLICATIONS OF PROCEDURES N 06/06/2016 LEAH WOLF MD, Ot V58.62 ENCOUNT FOR LONG-TERM(CURRENT) USE OF AN 06/06/2016 LEAH WOLF MD, Ot V58.83 ENCOUNTER FOR THERAPEUTIC DRUG MONITORIN 06/08/2016 LEAH WOLF MD, Ot E78.00 PURE HYPERCHOLESTEROLEMIA, UNSPECIFIED 06/08/2016 LEAH WOLF MD, Ot F41.9 ANXIETY DISORDER, UNSPECIFIED 06/08/2016 LEAH WOLF MD, Ot H91.90 UNSPECIFIED HEARING LOSS, UNSPECIFIED EA 06/08/2016 LEAH WOLF MD Ot I10 ESSENTIAL (PRIMARY) HYPERTENSION 06/08/2016 LEAH WOLF MD Ot I73.9 PERIPHERAL VASCULAR DISEASE, UNSPECIFIED 06/08/2016 LEAH WOLF MD, Ot J44.1 CHRONIC OBSTRUCTIVE PULMONARY DISEASE W 06/08/2016 LEAH WOLF MD, Ot K21.9 GASTRO-ESOPHAGEAL REFLUX DISEASE WITHOUT 06/08/2016 LEAH WOLF MD, Ot K57.90 DVRTCLOS OF INTEST, PART UNS, W/O PERF 06/08/2016 LEAH WOLF MD, Ot Z86.718 PERSONAL HISTORY OF OTHER VENOUS THROMBO 06/08/2016 LEAH WOLF MD, Ot Z87.891 PERSONAL HISTORY OF NICOTINE DEPENDENCE 06/08/2016 LEAH WOLF MD, Ot E78.00 PURE HYPERCHOLESTEROLEMIA, UNSPECIFIED 06/08/2016 LEAH WOLF MD, Ot F41.9 ANXIETY DISORDER, UNSPECIFIED 06/08/2016 LEAH WOLF MD, Ot H91.90 UNSPECIFIED HEARING LOSS, UNSPECIFIED EA 06/08/2016 LEAH WOLF MD, Ot I10 ESSENTIAL (PRIMARY) HYPERTENSION 06/08/2016 LEAH WOLF MD, Ot I73.9 PERIPHERAL VASCULAR DISEASE, UNSPECIFIED 06/08/2016 LEAH WOLF MD, Ot J44.1 CHRONIC OBSTRUCTIVE PULMONARY DISEASE W 06/08/2016 LEAH WOLF MD, Ot K21.9 GASTRO-ESOPHAGEAL REFLUX DISEASE WITHOUT 06/08/2016 LEAH WOLF MD, Ot K57.90 DVRTCLOS OF [facility], PART UNS, W/O PERF 06/08/2016 LEAH WOLF MD, Ot Z86.718 PERSONAL HISTORY OF OTHER VENOUS THROMBO 06/08/2016 LEAH WOLF MD, Ot Z87.891 PERSONAL HISTORY OF NICOTINE DEPENDENCE 06/09/2016 LEAH WOLF MD, Ot E78.00 PURE HYPERCHOLESTEROLEMIA, UNSPECIFIED 06/09/2016 LEAH WOLF MD, Ot F41.9 ANXIETY DISORDER, UNSPECIFIED 06/09/2016 LEAH WOLF MD, Ot H91.90 UNSPECIFIED HEARING LOSS, UNSPECIFIED EA 06/09/2016 LEAH WOLF MD, Ot I10 ESSENTIAL (PRIMARY) HYPERTENSION 06/09/2016 LEAH WOLF MD, Ot I73.9 PERIPHERAL VASCULAR DISEASE, UNSPECIFIED 06/09/2016 LEAH WOLF MD, Ot J44.1 CHRONIC OBSTRUCTIVE PULMONARY DISEASE W 06/09/2016 LEAH WOLF MD, Ot K21.9 GASTRO-ESOPHAGEAL REFLUX DISEASE WITHOUT 06/09/2016 LEAH WOLF MD, Ot K57.90 DVRTCLOS OF INTEST, PART UNSP, W/O PERF 06/09/2016 LEAH WOLF MD, Ot Z86.718 PERSONAL HISTORY OF OTHER VENOUS THROMBO 06/09/2016 LEAH WOLF MD, Ot Z87.891 PERSONAL HISTORY OF NICOTINE DEPENDENCE 06/10/2016 KAMRAN LINDQUIST APRN Ot I10 ESSENTIAL (PRIMARY) HYPERTENSION 06/10/2016 KAMRAN LINDQUIST APRN Ot J44.1 CHRONIC OBSTRUCTIVE PULMONARY DISEASE W 06/10/2016 KAMRAN LINDQUIST APRN Ot R05 COUGH 06/10/2016 KAMRAN LINDQUIST APRN Ot Z79.899 OTHER TURN DOWN WORKER (CURRENT) DRUG THERAPY 06/10/2016 KAMRAN LINDQUIST APRN Ot Z87.891 PERSONAL HISTORY OF NICOTINE DEPENDENCE 06/10/2016 LEAH WOLF MD, Ot E78.00 PURE HYPERCHOLESTEROLEMIA, UNSPECIFIED 06/10/2016 LEAH WOLF MD, Ot F41.9 ANXIETY DISORDER, UNSPECIFIED 06/10/2016 LEAH WOLF MD, Ot H91.90 UNSPECIFIED HEARING LOSS, UNSPECIFIED EA 06/10/2016 LEAH WOLF MD, Ot I10 ESSENTIAL (PRIMARY) HYPERTENSION 06/10/2016 LEAH WOLF MD, Ot I73.9 PERIPHERAL VASCULAR DISEASE, UNSPECIFIED 06/10/2016 LEAH WOLF MD, Ot J44.1 CHRONIC OBSTRUCTIVE PULMONARY DISEASE W 06/10/2016 LEAH WOLF MD, Ot K21.9 GASTRO-ESOPHAGEAL REFLUX DISEASE WITHOUT 06/10/2016 LEAH WOLF MD, Ot K57.90 DVRTCLOS OF INTEST, PART UNSP, W/O PERF 06/10/2016 LEAH WOLF MD, Ot Z86.718 PERSONAL HISTORY OF OTHER VENOUS THROMBO 06/10/2016 LEAH WOLF MD, Ot Z87.891 PERSONAL HISTORY OF NICOTINE DEPENDENCE 06/11/2016 LEAH WOLF MD, Ot E78.00 PURE HYPERCHOLESTEROLEMIA, UNSPECIFIED 06/11/2016 LEAH WOLF MD, Ot F41.9 ANXIETY DISORDER, UNSPECIFIED 06/11/2016 LEAH WOLF MD Ot H91.90 UNSPECIFIED HEARING LOSS, UNSPECIFIED EA 06/11/2016 LEAH WOLF MD Ot I10 ESSENTIAL (PRIMARY) HYPERTENSION 06/11/2016 LEAH WOLF MD Ot I73.9 PERIPHERAL VASCULAR DISEASE, UNSPECIFIED 06/11/2016 LEAH WOLF MD, Ot J44.1 CHRONIC OBSTRUCTIVE PULMONARY DISEASE W 06/11/2016 LEAH WOLF MD Ot K21.9 GASTRO-ESOPHAGEAL REFLUX DISEASE WITHOUT 06/11/2016 LEAH WOLF MD, Ot K57.90 DVRTCLOS OF INTEST, PART UNSP, W/O PERF 06/11/2016 LEAH WOLF MD, Ot Z86.718 PERSONAL HISTORY OF OTHER VENOUS THROMBO 06/11/2016 LEAH WOLF MD, Ot Z87.891 PERSONAL HISTORY OF NICOTINE DEPENDENCE 06/11/2016 LEAH WOLF MD Ot E78.00 PURE HYPERCHOLESTEROLEMIA, UNSPECIFIED 06/11/2016 LEAH WOLF MD, Ot F41.9 ANXIETY DISORDER, UNSPECIFIED 06/11/2016 LEAH WOLF MD, Ot H91.90 UNSPECIFIED HEARING LOSS, UNSPECIFIED EA 06/11/2016 LEAH WOLF MD, Ot I10 ESSENTIAL (PRIMARY) HYPERTENSION 06/11/2016 LEAH WOLF MD Ot I73.9 PERIPHERAL VASCULAR DISEASE, UNSPECIFIED 06/11/2016 LEAH WOLF MD, Ot J44.1 CHRONIC OBSTRUCTIVE PULMONARY DISEASE W 06/11/2016 LEAH WOLF MD, Ot K21.9 GASTRO-ESOPHAGEAL REFLUX DISEASE WITHOUT 06/11/2016 LEAH WOLF MD, Ot K57.90 DVRTCLOS OF INTEST, PART UNSP, W/O PERF 06/11/2016 LEAH WOLF MD, Ot Z86.718 PERSONAL HISTORY OF OTHER VENOUS THROMBO 06/11/2016 LEAH WOLF MD, Ot Z87.891 PERSONAL HISTORY OF NICOTINE DEPENDENCE 07/06/2016 ALVA BENJAMIN MD Ot I10 ESSENTIAL (PRIMARY) HYPERTENSION 07/06/2016 ALVA BENJAMIN MD Ot J44.9 CHRONIC OBSTRUCTIVE PULMONARY DISEASE, U 07/06/2016 ALVA BENJAMIN MD Ot M79.661 PAIN IN RIGHT LOWER LEG 07/06/2016 ALVA BENJAMIN MD Ot M79.662 PAIN IN LEFT LOWER LEG 07/06/2016 ALVA BENJAMIN MD Ot R22.42 LOCALIZED SWELLING, MASS AND LUMP, LEFT 07/06/2016 ALVA BENJAMIN MD Ot R60.0 LOCALIZED EDEMA 07/06/2016 ALVA BENJAMIN MD Ot Z79.899 OTHER TURN DOWN WORKER (CURRENT) DRUG THERAPY 07/06/2016 ALVA BENJAMIN MD Ot Z86.718 PERSONAL HISTORY OF OTHER VENOUS THROMBO 07/06/2016 ALVA BENJAMIN MD Ot Z87.891 PERSONAL HISTORY OF NICOTINE DEPENDENCE 07/12/2016 CHARITY ROSARIO FACC, PAVAN FACP CCDS Ot 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 07/12/2016 PAVAN NASH MD, FACC FACP CCDS Ot I10 ESSENTIAL (PRIMARY) HYPERTENSION 07/12/2016 PAVAN NASH MD, FACC FACP CCDS Ot I25.10 ATHSCL HEART DISEASE OF [place] CORONARY 07/12/2016 PAVAN NASH MD, FACC FACP CCDS Ot I73.9 PERIPHERAL VASCULAR DISEASE, UNSPECIFIED 07/12/2016 PAVAN NASH MD, FACC FACP CCDS Ot R06.02 SHORTNESS OF BREATH 07/12/2016 CHARITY ROSARIO FACC ALI FACP CCDS Ot Z86.718 PERSONAL HISTORY OF OTHER VENOUS THROMBO 07/12/2016 CHARITY ROSARIO FACC, PAVAN FACP CCDS Ot 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 07/12/2016 PAVAN NASH MD, FACC FACP CCDS Ot I10 ESSENTIAL (PRIMARY) HYPERTENSION 07/12/2016 CHARITY ROSARIO FACC, ALI FACP CCDS Ot I25.10 ATHSCL HEART DISEASE OF [place] CORONARY 07/12/2016 PAVAN NASH MD, FACC FACP CCDS Ot I73.9 PERIPHERAL VASCULAR DISEASE, UNSPECIFIED 07/12/2016 CHARITY ROSARIO FACC, ALI FACP CCDS Ot R06.02 SHORTNESS OF BREATH 07/12/2016 CHARITY ROSARIO FACC ALI FACP CCDS Ot Z86.718 PERSONAL HISTORY OF OTHER VENOUS THROMBO 07/14/2016 ALVA BENJAMIN MD T Ot I10 ESSENTIAL (PRIMARY) HYPERTENSION 07/14/2016 ALVA BENJAMIN MD Ot J44.9 CHRONIC OBSTRUCTIVE PULMONARY DISEASE, U 07/14/2016 ALVA BENJAMIN MD Ot M79.661 PAIN IN RIGHT LOWER LEG 07/14/2016 ALVA BENJAMIN MD Ot M79.662 PAIN IN LEFT LOWER LEG 07/14/2016 ALVA BENJAMIN MD Ot R22.42 LOCALIZED SWELLING, MASS AND LUMP, LEFT 07/14/2016 ALVA BENJAMIN MD Ot R60.0 LOCALIZED EDEMA 07/14/2016 ALVA BENJAMIN MD Ot Z79.899 OTHER HALFWAY (CURRENT) DRUG THERAPY 07/14/2016 ALVA BENJAMIN MD Ot Z86.718 PERSONAL HISTORY OF OTHER VENOUS THROMBO 07/14/2016 ALVA BENJAMIN MD Ot Z87.891 PERSONAL HISTORY OF NICOTINE DEPENDENCE 07/17/2016 PAVAN NASH MD, FACC FACP CCDS Ot 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 07/17/2016 PAVAN NASH MD, FACC FACP CCDS Ot I10 ESSENTIAL (PRIMARY) HYPERTENSION 07/17/2016 PAVAN NASH MD, FACC FACP CCDS Ot I25.10 ATHSCL HEART DISEASE OF [place] CORONARY 07/17/2016 CHARITY ROSARIO FACC ALI FACP CCDS Ot I73.9 PERIPHERAL VASCULAR DISEASE, UNSPECIFIED 07/17/2016 PAVAN NASH MD, FACC FACP CCDS Ot R06.02 SHORTNESS OF BREATH 07/17/2016 PAVAN NASH MD, FACC FACP CCDS Ot Z86.718 PERSONAL HISTORY OF OTHER VENOUS THROMBO 07/24/2016 PAVAN NASH MD, FACC FACP CCDS Ot 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 07/24/2016 PAVAN NASH MD, FACC FACP CCDS Ot I10 ESSENTIAL (PRIMARY) HYPERTENSION 07/24/2016 PAVAN NASH MD, FACC FACP CCDS Ot I25.10 ATHSCL HEART DISEASE OF [place] CORONARY 07/24/2016 CHARITY ROSARIO FACC ALI FACP CCDS Ot I73.9 PERIPHERAL VASCULAR DISEASE, UNSPECIFIED 07/24/2016 CHARITY ROSARIO FACC, PAVAN FACP CCDS Ot R06.02 SHORTNESS OF BREATH 07/24/2016 CHARITY ROSARIO FACC, PAVAN FACP CCDS Ot Z86.718 PERSONAL HISTORY OF OTHER VENOUS THROMBO 07/25/2016 LEAH WOLF MD, Ot E78.5 HYPERLIPIDEMIA, UNSPECIFIED 07/25/2016 LEAH WOLF MD, Ot E87.1 HYPO-OSMOLALITY AND HYPONATREMIA 07/25/2016 LEAH WOLF MD, Ot I10 ESSENTIAL (PRIMARY) HYPERTENSION 07/25/2016 LEAH WOLF MD, Ot J44.1 CHRONIC OBSTRUCTIVE PULMONARY DISEASE W 07/25/2016 LEAH WOLF MD, Ot K21.9 GASTRO-ESOPHAGEAL REFLUX DISEASE WITHOUT 07/25/2016 LEAH WOLF MD, Ot R73.03 PREDIABETES 07/25/2016 LEAH WOLF MD, Ot R91.1 SOLITARY PULMONARY NODULE 07/25/2016 LEAH WOLF MD, Ot 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 OF ANTICOAGULANT 07/25/2016 LEAH WOLF MD, Ot Z79.899 OTHER TURN DOWN WORKER (CURRENT) DRUG THERAPY 07/25/2016 LEAH WOLF MD, Ot Z87.891 PERSONAL HISTORY OF NICOTINE DEPENDENCE 08/03/2016 LEAH WOLF MD, Ot K62.5 HEMORRHAGE OF ANUS AND RECTUM 08/08/2016 CHARITY ROSARIO FACC, PAVAN RENOP CCDS Ot 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 08/08/2016 CHARITY ROSARIO FACC, PAVAN FACP CCDS Ot I10 ESSENTIAL (PRIMARY) HYPERTENSION 08/08/2016 CHARITY ROSARIO FACC, PAVAN FACP CCDS Ot I25.10 ATHSCL HEART DISEASE OF [place] CORONARY 08/08/2016 CHARITY ROSARIO FACC, ALI FACP CCDS Ot I73.9 PERIPHERAL VASCULAR DISEASE, UNSPECIFIED 08/08/2016 CHARITY ROSARIO FACC, ALI FACP CCDS Ot J43.8 OTHER EMPHYSEMA 08/08/2016 CHARITY ROSARIO FACC, ALI FACP CCDS Ot M79.89 OTHER SPECIFIED SOFT TISSUE DISORDERS 08/08/2016 CHARITY ROSARIO FACC, PAVAN FACP CCDS Ot R06.02 SHORTNESS OF BREATH 08/08/2016 CHARITY ROSARIO FACC, ALI FACP CCDS Ot Z86.718 PERSONAL HISTORY OF OTHER VENOUS THROMBO 08/09/2016 LEAH WOLF MD, Ot Z51.81 ENCOUNTER FOR THERAPEUTIC DRUG LEVEL MON 08/09/2016 LEAH WOLF MD, Ot 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 OF ANTICOAGULANT 08/09/2016 LEAH WOLF MD, Ot Z86.718 PERSONAL HISTORY OF OTHER VENOUS THROMBO 08/10/2016 CHARITY ROSARIO [facility], ALI FACP CCDS Ot 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 08/10/2016 CHARITY ROSARIO [facility], ALI FACP CCDS Ot I10 ESSENTIAL (PRIMARY) HYPERTENSION 08/10/2016 CHARITY ROSARIO [facility], ALI FACP CCDS Ot I25.10 ATHSCL HEART DISEASE OF [place] CORONARY 08/10/2016 CHARITY ROSARIO [facility], ALI FACP CCDS Ot I73.9 PERIPHERAL VASCULAR DISEASE, UNSPECIFIED 08/10/2016 CHARITY RENO, ALI FACP CCDS Ot J43.8 OTHER EMPHYSEMA 08/10/2016 CHARITY ROSARIO [facility], ALI FACP CCDS Ot M79.89 OTHER SPECIFIED SOFT TISSUE DISORDERS 08/10/2016 CHARITY ROSARIO [facility], ALI FACP CCDS Ot R06.02 SHORTNESS OF BREATH 08/10/2016 CHARITY ROSARIO [facility], ALI FACP CCDS Ot Z86.718 PERSONAL HISTORY OF OTHER VENOUS THROMBO 08/10/2016 LEAH WOLF MD Ot Z51.81 ENCOUNTER FOR THERAPEUTIC DRUG LEVEL MON 08/10/2016 LEAH WOLF MD Ot 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 OF ANTICOAGULANT 08/10/2016 LEAH WOLF MD, Ot Z86.718 PERSONAL HISTORY OF OTHER VENOUS THROMBO 08/10/2016 CHARITY RENO, ALI FACP CCDS Ot R00.2 PALPITATIONS 08/10/2016 CHARITY ROSARIO FACC, ALI FACP CCDS Ot R06.02 SHORTNESS OF BREATH 08/10/2016 CHARITY RENO, ALI FACP CCDS Ot R07.89 OTHER CHEST PAIN 08/11/2016 Ot 493.92 08/11/2016 Ot 786.07 08/17/2016 LEAH WOLF MD Ot K62.5 HEMORRHAGE OF ANUS AND RECTUM 2016 CHARITY RENOC, [facility] FACP CCDS Ot 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 2016 CHARITY ROSARIO [facility], ALI FACP CCDS Ot I10 ESSENTIAL (PRIMARY) HYPERTENSION 2016 CHARITY ROSARIO [facility], ALI FACP CCDS Ot I25.10 ATHSCL HEART DISEASE OF [place] CORONARY 2016 CHARITY ROSARIO [facility], ALI FACP CCDS Ot I73.9 PERIPHERAL VASCULAR DISEASE, UNSPECIFIED 2016 CHARITY ROSARIO [facility], ALI FACP CCDS Ot J43.8 OTHER EMPHYSEMA 2016 CHARITY ROSARIO [facility], ALI FACP CCDS Ot M79.89 OTHER SPECIFIED SOFT TISSUE DISORDERS 2016 CHARITY ROSARIO [facility], ALI FACP CCDS Ot R06.02 SHORTNESS OF BREATH 2016 CHARITY ORSARIO [facility], ALI FACP CCDS Ot Z86.718 PERSONAL HISTORY OF OTHER VENOUS THROMBO 09/06/2016 LEAH WOLF MD, Ot Z51.81 ENCOUNTER FOR THERAPEUTIC DRUG LEVEL MON 09/06/2016 LEAH WOLF MD, Ot 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 OF ANTICOAGULANT 09/06/2016 LEAH WOLF MD, Ot Z86.718 PERSONAL HISTORY OF OTHER VENOUS THROMBO 09/06/2016 LEAH WOLF MD, Ot Z51.81 ENCOUNTER FOR THERAPEUTIC DRUG LEVEL MON 09/06/2016 LEAH WOLF MD, Ot 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 OF ANTICOAGULANT 09/06/2016 LEAH WOLF MD, Ot Z86.718 PERSONAL HISTORY OF OTHER VENOUS THROMBO 09/17/2016 LEAH WOLF MD, Ot Z51.81 ENCOUNTER FOR THERAPEUTIC DRUG LEVEL MON 09/17/2016 LEAH WOLF MD, Ot Z79.01 HALFWAY (CURRENT) USE OF ANTICOAGULANT 09/17/2016 LEAH WOLF MD, Ot Z86.718 PERSONAL HISTORY OF OTHER VENOUS THROMBO 10/01/2016 LEAH WOLF MD, Ot Z51.81 ENCOUNTER FOR THERAPEUTIC DRUG LEVEL MON 10/01/2016 LEAH WOLF MD, Ot 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 OF ANTICOAGULANT 10/01/2016 LEAH WOLF MD, Ot Z86.718 PERSONAL HISTORY OF OTHER VENOUS THROMBO 10/10/2016 LEAH WOLF MD, Ot R91.8 OTHER NONSPECIFIC ABNORMAL FINDING OF SLIM 11/07/2016 [place] Ot R60.0 LOCALIZED EDEMA 12/05/2016 LEAH WOLF MD, Ot Z51.81 ENCOUNTER FOR THERAPEUTIC DRUG LEVEL MON 12/05/2016 LEAH WOLF MD, Ot 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 OF ANTICOAGULANT 12/05/2016 LEAH WOLF MD, Ot Z86.718 PERSONAL HISTORY OF OTHER VENOUS THROMBO 12/11/2016 LEAH WOLF MD, Ot Z12.31 ENCNTR SCREEN MAMMOGRAM FOR MALIGNANT NE 12/11/2016 LEAH WOLF MD, Ot Z12.31 ENCNTR SCREEN MAMMOGRAM FOR MALIGNANT NE 12/16/2016 STEPHANIE GREENWOOD Ot E78.00 PURE HYPERCHOLESTEROLEMIA, UNSPECIFIED 12/16/2016 STEPHANIE GREENWOODP Ot F41.9 ANXIETY DISORDER, UNSPECIFIED 12/16/2016 STEPHANIE GREENWOODP Ot I10 ESSENTIAL (PRIMARY) HYPERTENSION 12/16/2016 STEPHANIE GREENWOODP Ot J43.9 EMPHYSEMA, UNSPECIFIED 12/16/2016 TIMO, STEPHANIE FIRE PATROLLER Ot J45.909 UNSPECIFIED ASTHMA, UNCOMPLICATED 12/16/2016 STEPHANIE GREENWOODP Ot K21.9 GASTRO-ESOPHAGEAL REFLUX DISEASE WITHOUT 12/16/2016 TIMO STEPHANIE FIRE PATROLLER Ot K59.09 OTHER CONSTIPATION 12/16/2016 STEPHANIE GREENWOODP Ot 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] 12/16/2016 STEPHANIE GREENWOODP Ot M79.89 OTHER SPECIFIED SOFT TISSUE DISORDERS 12/16/2016 STEPHANIE GREENWOODP Ot R60.9 EDEMA, UNSPECIFIED 12/16/2016 TIMO STEPHANIE FIRE PATROLLER Ot S86.112A STRAIN MUSC/TEND POST GRP AT LOW LEG LEV 12/16/2016 STEPHANIE GREENWOODP Ot X58.XXXA EXPOSURE TO OTHER SPECIFIED FACTORS, INI 12/16/2016 STEPHANIE GREENWOODP Ot 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 OF ANTICOAGULANT 12/16/2016 STEPHANIE GREENWOOD Ot Z86.718 PERSONAL HISTORY OF OTHER VENOUS THROMBO 12/16/2016 TIMO, STEPHANIE FIRE PATROLLER Ot Z87.891 PERSONAL HISTORY OF NICOTINE DEPENDENCE 12/16/2016 TIMOSTEPHANIE Diaz FIRE PATROLLER Ot Z90.710 ACQUIRED ABSENCE OF BOTH CERVIX AND UTER 12/18/2016 TIMOSTEPHANIE Diaz FIRE PATROLLER Ot E78.00 PURE HYPERCHOLESTEROLEMIA, UNSPECIFIED 12/18/2016 TIMO, STEPHANIE FIRE PATROLLER Ot F41.9 ANXIETY DISORDER, UNSPECIFIED 12/18/2016 TIMO, STEPHANIE FIRE PATROLLER Ot I10 ESSENTIAL (PRIMARY) HYPERTENSION 12/18/2016 TIMOSTEPHANIE Diaz FIRE PATROLLER Ot J43.9 EMPHYSEMA, UNSPECIFIED 12/18/2016 TIMO, STEPHANIE FIRE PATROLLER Ot J45.909 UNSPECIFIED ASTHMA, UNCOMPLICATED 12/18/2016 TIMO, STEPHANIE FIRE PATROLLER Ot K21.9 GASTRO-ESOPHAGEAL REFLUX DISEASE WITHOUT 12/18/2016 TIMO STEPHANIE FIRE PATROLLER Ot K59.09 OTHER CONSTIPATION 12/18/2016 TIMO STEPHANIE FIRE PATROLLER Ot 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891 PERSONAL HISTORY OF NICOTINE DEPENDENCE 12/18/2016 TIMOSTEPHANIE Diaz FIRE PATROLLER Ot Z90.710 ACQUIRED ABSENCE OF BOTH CERVIX AND UTER 12/18/2016 TIMO, STEPHANIE FIRE PATROLLER Ot E78.00 PURE HYPERCHOLESTEROLEMIA, UNSPECIFIED 12/18/2016 TIMO, STEPHANIE FIRE PATROLLER Ot F41.9 ANXIETY DISORDER, UNSPECIFIED 12/18/2016 TIMO, STEPHANIE FIRE PATROLLER Ot I10 ESSENTIAL (PRIMARY) HYPERTENSION 12/18/2016 TIMO, STEPHANIE FIRE PATROLLER Ot J43.9 EMPHYSEMA, UNSPECIFIED 12/18/2016 TIMO, STEPHANIE FIRE PATROLLER Ot J45.909 UNSPECIFIED ASTHMA, UNCOMPLICATED 12/18/2016 TIMO, STEPHANIE FIRE PATROLLER Ot K21.9 GASTRO-ESOPHAGEAL REFLUX DISEASE WITHOUT 12/18/2016 TIMOSTEPHANIE Ot K59.09 OTHER CONSTIPATION 12/18/2016 TIMOSTEPHANIE Diaz Ot 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] 12/18/2016 TIMOSTEPHANIE Ot M79.89 OTHER SPECIFIED SOFT TISSUE DISORDERS 12/18/2016 TIMOSTEPHANIE Ot R60.9 EDEMA, UNSPECIFIED 12/18/2016 TIMOSTEPHANIE DiazP Ot S86.112A STRAIN MUSC/TEND POST GRP AT LOW LEG LEV 12/18/2016 TIMOSTEPHANIE Ot X58.XXXA EXPOSURE TO OTHER SPECIFIED FACTORS, INI 12/18/2016 TIMOSTEPHANIE Diaz Ot 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 OF ANTICOAGULANT 12/18/2016 TIMOSTEPHANIE Diaz Ot Z86.718 PERSONAL HISTORY OF OTHER VENOUS THROMBO 12/18/2016 TIMOSTEPHANIE Diaz Ot Z87.891 PERSONAL HISTORY OF NICOTINE DEPENDENCE 12/18/2016 TIMOSTEPHANIE Diaz Ot Z90.710 ACQUIRED ABSENCE OF BOTH CERVIX AND UTER 12/21/2016 LEAH WOLF MD Ot Z12.31 ENCNTR SCREEN MAMMOGRAM FOR MALIGNANT NE 12/26/2016 LEAH WOLF MD Ot N64.89 OTHER SPECIFIED DISORDERS OF BREAST 12/31/2016 LAEH WOLF MD Ot N64.89 OTHER SPECIFIED DISORDERS OF BREAST 01/02/2017 SOURAV ROSARIO, ALVA Casanova Ot E78.00 PURE HYPERCHOLESTEROLEMIA, UNSPECIFIED 01/02/2017 ALVA BENJAMIN MD, Ot F41.9 ANXIETY DISORDER, UNSPECIFIED 01/02/2017 ALVA BENJAMIN MD Ot G47.30 SLEEP APNEA, UNSPECIFIED 01/02/2017 ALVA BENJAMIN MD Ot I10 ESSENTIAL (PRIMARY) HYPERTENSION 01/02/2017 ALVA BENJAMIN MD Ot I73.9 PERIPHERAL VASCULAR DISEASE, UNSPECIFIED 01/02/2017 ALVA BENJAMIN MD, Ot J44.1 CHRONIC OBSTRUCTIVE PULMONARY DISEASE W 01/02/2017 ALVA BENJAMIN MD, Ot M19.90 UNSPECIFIED OSTEOARTHRITIS, UNSPECIFIED 01/02/2017 ALVA BENJAMIN MD Ot R06.02 SHORTNESS OF BREATH 01/02/2017 ALVA BENJAMIN MD, Ot 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 OF ANTICOAGULANT 01/02/2017 ALVA BENJAMIN MD, Ot Z80.0 FAMILY HISTORY OF MALIGNANT NEOPLASM OF 01/02/2017 ALVA BENJAMIN MD Ot Z82.49 FAMILY HX OF ISCHEM HEART DIS AND OTH DI 01/02/2017 ALVA BENJAMIN MD Ot Z86.718 PERSONAL HISTORY OF OTHER VENOUS THROMBO 01/02/2017 ALVA BENJAMIN MD, Ot Z87.09 PERSONAL HISTORY OF OTHER DISEASES OF TH 01/02/2017 ALVA BENJAMIN MD, Ot Z87.19 PERSONAL HISTORY OF OTHER DISEASES OF TH 01/02/2017 ALVA BENJAMIN MD, Ot Z87.448 PERSONAL HISTORY OF OTHER DISEASES OF UR 01/02/2017 ALVA BENJAMIN MD Ot Z87.59 PERSONAL HISTORY OF COMP OF PREG, CHLDBR 01/02/2017 ALVA BENJAMIN MD, Ot Z87.891 PERSONAL HISTORY OF NICOTINE DEPENDENCE 01/02/2017 ALVA BENJAMIN MD, Ot Z90.710 ACQUIRED ABSENCE OF BOTH CERVIX AND UTER 01/02/2017 ALVA BENJAMIN MD Ot Z90.89 ACQUIRED ABSENCE OF OTHER ORGANS 01/02/2017 ALVA BENJAMIN MD Ot Z95.828 PRESENCE OF OTHER VASCULAR IMPLANTS AND 01/03/2017 ALVA BENJAMIN MD Ot E78.00 PURE HYPERCHOLESTEROLEMIA, UNSPECIFIED 01/03/2017 ALVA BENJAMIN MD, Ot F41.9 ANXIETY DISORDER, UNSPECIFIED 01/03/2017 ALVA BENJAMIN MD Ot G47.30 SLEEP APNEA, UNSPECIFIED 01/03/2017 ALVA BENJAMIN MD, Ot I10 ESSENTIAL (PRIMARY) HYPERTENSION 01/03/2017 ALVA BENJAMIN MD, Ot I73.9 PERIPHERAL VASCULAR DISEASE, UNSPECIFIED 01/03/2017 ALVA BENJAMIN MD Ot J44.1 CHRONIC OBSTRUCTIVE PULMONARY DISEASE W 01/03/2017 ALVA BENJAMIN MD Ot M19.90 UNSPECIFIED OSTEOARTHRITIS, UNSPECIFIED 01/03/2017 ALVA BENJAMIN MD, Ot R06.02 SHORTNESS OF BREATH 01/03/2017 ALVA BENJAMIN MD, Ot Z79.01 HALFWAY (CURRENT) USE OF ANTICOAGULANT 01/03/2017 ALVA BENJAMIN MD, Ot Z80.0 FAMILY HISTORY OF MALIGNANT NEOPLASM OF 01/03/2017 ALVA BENJAMIN MD, Ot Z82.49 FAMILY HX OF ISCHEM HEART DIS AND OTH DI 01/03/2017 ALVA BENJAMIN MD, Ot Z86.718 PERSONAL HISTORY OF OTHER VENOUS THROMBO 01/03/2017 ALVA BENJAMIN MD, Ot Z87.09 PERSONAL HISTORY OF OTHER DISEASES OF TH 01/03/2017 ALVA BENJAMIN MD, Ot Z87.19 PERSONAL HISTORY OF OTHER DISEASES OF TH 01/03/2017 ALVA BENJAMIN MD, Ot Z87.448 PERSONAL HISTORY OF OTHER DISEASES OF UR 01/03/2017 ALVA BENJAMIN MD, Ot Z87.59 PERSONAL HISTORY OF COMP OF PREG, CHLDBR 01/03/2017 ALVA BENJAMIN MD, Ot Z87.891 PERSONAL HISTORY OF NICOTINE DEPENDENCE 01/03/2017 ALVA BEJNAMIN MD Ot Z90.710 ACQUIRED ABSENCE OF BOTH CERVIX AND UTER 01/03/2017 ALVA BENJAMIN MD Ot Z90.89 ACQUIRED ABSENCE OF OTHER ORGANS 01/03/2017 ALVA BENJAMIN MD Ot Z95.828 PRESENCE OF OTHER VASCULAR IMPLANTS AND 01/07/2017 LEAH WOLF MD Ot N64.89 OTHER SPECIFIED DISORDERS OF BREAST 02/18/2017 HOWARD GROVES MD, Ot J32.9 CHRONIC SINUSITIS, UNSPECIFIED 02/18/2017 HOWARD GROVES MD, Ot J33.9 NASAL POLYP, UNSPECIFIED 03/08/2017 LEAH WOLF MD, Ot R10.31 RIGHT LOWER QUADRANT PAIN 03/08/2017 LEAH WOLF MD Ot Z95.828 PRESENCE OF OTHER VASCULAR IMPLANTS AND 03/12/2017 HOWARD GROVES MD, Ot J32.9 CHRONIC SINUSITIS, UNSPECIFIED 03/12/2017 HOWARD GROVES MD Ot J33.9 NASAL POLYP, UNSPECIFIED 03/13/2017 LUCIANO ROSARIO, LEAH Jacome Ot R10.31 RIGHT LOWER QUADRANT PAIN 03/13/2017 LUCIANO ROSARIO, LEAH Jacome Ot Z95.828 PRESENCE OF OTHER VASCULAR IMPLANTS AND 03/16/2017 FELIBERTO LEE MD Ot E78.00 PURE HYPERCHOLESTEROLEMIA, UNSPECIFIED 03/16/2017 JESUS ROSARIO, FELIBERTO Clayton Ot F41.9 ANXIETY DISORDER, UNSPECIFIED 03/16/2017 JESUS ROSARIO, FELIBERTO Clayton Ot G47.30 SLEEP APNEA, UNSPECIFIED 03/16/2017 JESUS ROSARIO, FELIBERTO Clayton Ot I10 ESSENTIAL (PRIMARY) HYPERTENSION 03/16/2017 JESUS ROSARIO, FELIBERTO Clayton Ot I73.9 PERIPHERAL VASCULAR DISEASE, UNSPECIFIED 03/16/2017 JESUS ROSARIO, FELIBERTO Clayton Ot J43.9 EMPHYSEMA, UNSPECIFIED 03/16/2017 JESUS ROSARIO, FELIBERTO Clayton Ot K21.9 GASTRO-ESOPHAGEAL REFLUX DISEASE WITHOUT 03/16/2017 JESUS ROSARIO, FELIBERTO Clayton Ot L03.116 CELLULITIS OF LEFT LOWER LIMB 03/16/2017 JESUS ROSARIO, FELIBERTO Clayton Ot M19.90 UNSPECIFIED OSTEOARTHRITIS, UNSPECIFIED 03/16/2017 JESUS ROSARIO, FELIBERTO Clayton Ot M79.89 OTHER SPECIFIED SOFT TISSUE DISORDERS 03/16/2017 FELIBERTO LEE MD Ot 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 OF ANTICOAGULANT 03/16/2017 FELIBERTO LEE MD Ot Z86.010 PERSONAL HISTORY OF COLONIC POLYPS 03/16/2017 FELIBERTO LEE MD Ot Z86.718 PERSONAL HISTORY OF OTHER VENOUS THROMBO 03/16/2017 FELIBERTO LEE MD Ot Z86.72 PERSONAL HISTORY OF THROMBOPHLEBITIS 03/16/2017 FELIBERTO LEE MD Ot Z87.01 PERSONAL HISTORY OF PNEUMONIA (RECURRENT 03/16/2017 FELIBERTO LEE MD Ot Z87.19 PERSONAL HISTORY OF OTHER DISEASES OF TH 03/16/2017 FELIBERTO LEE MD Ot Z87.448 PERSONAL HISTORY OF OTHER DISEASES OF UR 03/16/2017 FELIBERTO LEE MD Ot Z87.891 PERSONAL HISTORY OF NICOTINE DEPENDENCE 03/16/2017 FELIBERTO LEE MD Ot Z90.710 ACQUIRED ABSENCE OF BOTH CERVIX AND UTER 03/16/2017 JESUS ROSARIO, FELIBERTO Clayton Ot Z90.89 ACQUIRED ABSENCE OF OTHER ORGANS 03/19/2017 LEAH WOLF MD Ot R10.31 RIGHT LOWER QUADRANT PAIN 03/19/2017 LEAH WOLF MD, Ot Z95.828 PRESENCE OF OTHER VASCULAR IMPLANTS AND 03/21/2017 LEAH WOLF MD Ot R91.1 SOLITARY PULMONARY NODULE 03/21/2017 LEAH WOLF MD Ot N64.4 MASTODYNIA 03/26/2017 LEAH WOLF MD, Ot N64.4 MASTODYNIA 03/26/2017 LEAH WOLF MD, Ot J44.1 CHRONIC OBSTRUCTIVE PULMONARY DISEASE W 04/02/2017 LEAH WOLF MD, Ot N64.4 MASTODYNIA 04/08/2017 [place] Ot M17.12 UNILATERAL PRIMARY OSTEOARTHRITIS, LEFT 04/08/2017 [place] Ot M23.222 DERANG OF POST HORN OF MEDIAL MENSC D/T 04/09/2017 LEAH WOLF MD, Ot J33.9 NASAL POLYP, UNSPECIFIED 04/09/2017 LEAH WOLF MD Ot Z01.810 ENCOUNTER FOR PREPROCEDURAL CARDIOVASCUL 04/10/2017 [place] Ot M17.12 UNILATERAL PRIMARY OSTEOARTHRITIS, LEFT 04/10/2017 [place] Ot M23.222 DERANG OF POST HORN OF MEDIAL MENSC D/T 04/15/2017 HOWARD GROVES MD, Ot J33.9 NASAL POLYP, UNSPECIFIED 04/15/2017 HOWARD GROVES MD Ot J34.89 OTHER SPECIFIED DISORDERS OF NOSE AND NA 04/15/2017 HOWARD GROVES MD Ot N20.1 CALCULUS OF URETER 04/15/2017 HOWARD GROVES MD Ot Z01.818 ENCOUNTER FOR OTHER PREPROCEDURAL EXAMIN 04/15/2017 HOWARD GROVES MD Ot Z11.2 ENCOUNTER FOR SCREENING FOR OTHER BACTER 04/15/2017 HOWARD GROVES MD Ot Z79.01 HALFWAY (CURRENT) USE OF ANTICOAGULANT 04/16/2017 RONAN ROSARIO, ARIES Bass Ot Z87.442 PERSONAL HISTORY OF URINARY CALCULI 04/18/2017 Ot V12.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 EMBOLISM 04/18/2017 Ot V12.55 PERSONAL HISTORY OF PULMONARY EMBOLISM 04/18/2017 Ot 686.9 LOCAL SKIN INFECTION NOS 04/18/2017 Ot 454.9 ASYMPTOMATIC VARICOSE VEINS 04/18/2017 Ot 998.83 NON-HEALING SURG WOUND 04/18/2017 Ot 998.89 OTHER SPEC COMPLICATIONS OF PROCEDURES N 04/18/2017 LEAH WOLF MD, Ot V58.62 ENCOUNT FOR LONG-TERM(CURRENT) USE OF AN 04/18/2017 LEAH WOLF MD, Ot V58.83 ENCOUNTER FOR THERAPEUTIC DRUG MONITORIN 04/18/2017 LEAH WOLF MD, Ot Z51.81 ENCOUNTER FOR THERAPEUTIC DRUG LEVEL MON 04/18/2017 LEAH WOLF MD, Ot Z79.01 HALFWAY (CURRENT) USE OF ANTICOAGULANT 04/18/2017 LEAH WOLF MD, Ot Z86.718 PERSONAL HISTORY OF OTHER VENOUS THROMBO 04/19/2017 LEAH WOLF MD, Ot R91.1 SOLITARY PULMONARY NODULE 04/20/2017 HOWARD GROVES MD Ot E11.9 TYPE 2 DIABETES MELLITUS WITHOUT COMPLIC 04/20/2017 HOWARD GROVES MD, Ot E78.00 PURE HYPERCHOLESTEROLEMIA, UNSPECIFIED 04/20/2017 HOWARD GROVES MD, Ot G57.93 UNSPECIFIED MONONEUROPATHY OF BILATERAL 04/20/2017 HOWARD GROVES MD Ot I10 ESSENTIAL (PRIMARY) HYPERTENSION 04/20/2017 HOWARD GROVES MD, Ot I73.9 PERIPHERAL VASCULAR DISEASE, UNSPECIFIED 04/20/2017 HOWARD GROVES MD, Ot J32.1 CHRONIC FRONTAL SINUSITIS 04/20/2017 HOWARD GROVES MD, Ot J33.8 OTHER POLYP OF SINUS 04/20/2017 HOWARD GROVES MD, Ot J43.9 EMPHYSEMA, UNSPECIFIED 04/20/2017 HOWARD GROVES MD, Ot J45.901 UNSPECIFIED ASTHMA WITH (ACUTE) EXACERBA 04/20/2017 HOWARD GROEVS MD Ot K21.9 GASTRO-ESOPHAGEAL REFLUX DISEASE WITHOUT 04/20/2017 HOWARD GROVES MD Ot M19.91 PRIMARY OSTEOARTHRITIS, UNSPECIFIED SITE 04/20/2017 HOWARD GROVES MD Ot N20.1 CALCULUS OF URETER 04/20/2017 HOWARD GROVES MD Ot N81.10 CYSTOCELE, UNSPECIFIED 04/20/2017 HOWARD GROVES MD, Ot N81.6 RECTOCELE 04/20/2017 HOWARD GROVES MD, Ot R09.02 HYPOXEMIA 04/20/2017 HOWARD GROVES MD, Ot 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 OF ANTICOAGULANT 04/20/2017 HOWARD GROVES MD, Ot Z86.711 PERSONAL HISTORY OF PULMONARY EMBOLISM 04/20/2017 HOWARD GROVES MD, Ot Z86.718 PERSONAL HISTORY OF OTHER VENOUS THROMBO 04/20/2017 HOWARD GROVES MD, Ot Z90.710 ACQUIRED ABSENCE OF BOTH CERVIX AND UTER 04/23/2017 LUCIANO ROSARIO, LEAH Jacome Ot J44.1 CHRONIC OBSTRUCTIVE PULMONARY DISEASE W 04/29/2017 TEDDY PHILIP MD, Ot K57.30 DVRTCLOS OF LG INT W/O PERFORATION OR AB 04/29/2017 TEDDY PHILIP MD, Ot N20.2 CALCULUS OF KIDNEY WITH CALCULUS OF URET 04/29/2017 TEDDY PHILIP MD, Ot R59.0 LOCALIZED ENLARGED LYMPH NODES 05/01/2017 [place] Ot M17.12 UNILATERAL PRIMARY OSTEOARTHRITIS, LEFT 05/01/2017 [place] Ot M23.222 DERANG OF POST HORN OF [facility] D/T Procedures Code Description Performed By Performed On 65.61 03/17/2009 68.49 03/17/2009 87.77 03/24/2009 38.7 05/28/2009 45.25 10/16/2011 45.42 10/16/2011 [id number] EXCISION OF RIGHT MAXILLARY SINUS, PERC 04/18/2017 [id number] EXCISION OF LEFT MAXILLARY SINUS, PERC E 04/18/2017 [id number] EXCISION OF RIGHT FRONTAL SINUS, PERC EN 04/18/2017 [id number] EXCISION OF LEFT FRONTAL SINUS, PERC END 04/18/2017 [id number] RESECTION OF RIGHT ETHMOID SINUS, PERC E 04/18/2017 [id number] RESECTION OF LEFT ETHMOID SINUS, PERC EN 04/18/2017 [id number] INSPECTION OF URETER, ENDO 04/18/2017 Results Test Result Range PT panel in platelet poor plasma by coagulation assay - 01/03/16 08:08 Prothrombin time (PT) in platelet poor plasma by coagulation assay 30.0 s 12.2-14.7 INR in platelet poor plasma or blood by coagulation assay 2.9 0.8-1.4 Complete blood count (CBC) with automated white blood cell (WBC) differential - 01/24/16 12:20 Blood leukocytes automated count (number/volume) 6.7 10*3/uL 4.3-11.0 Blood erythrocytes automated count (number/volume) 4.51 10*6/uL 4.35-5.85 Venous blood hemoglobin measurement (mass/volume) 12.7 g/dL 11.5-16.0 Blood hematocrit (volume fraction) 39 % 35-52 Automated erythrocyte mean corpuscular volume 86 [foz_us] 80-99 Automated erythrocyte mean corpuscular hemoglobin (mass per erythrocyte) 28 pg 25-34 Automated erythrocyte mean corpuscular hemoglobin concentration measurement ( mass/volume) 33 g/dL 32-36 Automated erythrocyte distribution width ratio 15.5 % 10.0-14.5 Automated blood platelet count (count/volume) 315 10*3/uL 130-400 Automated blood platelet mean volume measurement 9.1 [foz_us] 7.4-10.4 Automated blood neutrophils/100 leukocytes 52 % 42-75 Automated blood lymphocytes/100 leukocytes 30 % 12-44 Blood monocytes/100 leukocytes 8 % 0-12 Automated blood eosinophils/100 leukocytes 9 % 0-10 Automated blood basophils/100 leukocytes 1 % 0-10 Blood neutrophils automated count (number/volume) 3.5 10*3 1.8-7.8 Blood lymphocytes automated count (number/volume) 2.0 10*3 1.0-4.0 Blood monocytes automated count (number/volume) 0.5 10*3 0.0-1.0 Automated eosinophil count 0.6 10*3/uL 0.0-0.3 Automated blood basophil count (count/volume) 0.0 10*3/uL 0.0-0.1 PT panel in platelet poor plasma by coagulation assay - 01/24/16 12:20 Prothrombin time (PT) in platelet poor plasma by coagulation assay 30.1 s 12.2-14.7 INR in platelet poor plasma or blood by coagulation assay 2.9 0.8-1.4 Comprehensive metabolic panel - 01/24/16 12:20 Serum or plasma sodium measurement (moles/volume) 141 mmol/L 135-145 Serum or plasma potassium measurement (moles/volume) 3.8 mmol/L 3.6-5.0 Serum or plasma chloride measurement (moles/volume) 110 mmol/L 98-107 Carbon dioxide 23 mmol/L 21-32 Serum or plasma anion gap determination (moles/volume) 8 mmol/L 5-14 Serum or plasma urea nitrogen measurement (mass/volume) 9 mg/dL 7-18 Serum or plasma creatinine measurement (mass/volume) 0.69 mg/dL 0.60-1.30 Serum or plasma urea nitrogen/creatinine mass ratio 13 NRG Serum or plasma creatinine measurement with calculation of estimated glomerular filtration rate > NRG Serum or plasma glucose measurement (mass/volume) 82 mg/dL 70-105 Serum or plasma calcium measurement (mass/volume) 8.9 mg/dL 8.5-10.1 Serum or plasma total bilirubin measurement (mass/volume) 0.3 mg/dL 0.1-1.0 Serum or plasma alkaline phosphatase measurement (enzymatic activity/volume) 69 U/L 40-136 Serum or plasma aspartate aminotransferase measurement (enzymatic activity/ volume) 20 U/L 5-34 Serum or plasma alanine aminotransferase measurement (enzymatic activity/volume ) 25 U/L 0-55 Serum or plasma protein measurement (mass/volume) 7.2 g/dL 6.4-8.2 Serum or plasma albumin measurement (mass/volume) 3.8 g/dL 3.2-4.5 PT panel in platelet poor plasma by coagulation assay - 02/17/16 14:38 Prothrombin time (PT) in platelet poor plasma by coagulation assay 27.4 s 12.2-14.7 INR in platelet poor plasma or blood by coagulation assay 2.6 0.8-1.4 Complete blood count (CBC) with automated white blood cell (WBC) differential - 03/02/16 19:41 Blood leukocytes automated count (number/volume) 7.0 10*3/uL 4.3-11.0 Blood erythrocytes automated count (number/volume) 4.25 10*6/uL 4.35-5.85 Venous blood hemoglobin measurement (mass/volume) 12.2 g/dL 11.5-16.0 Blood hematocrit (volume fraction) 37 % 35-52 Automated erythrocyte mean corpuscular volume 87 [foz_us] 80-99 Automated erythrocyte mean corpuscular hemoglobin (mass per erythrocyte) 29 pg 25-34 Automated erythrocyte mean corpuscular hemoglobin concentration measurement ( mass/volume) 33 g/dL 32-36 Automated erythrocyte distribution width ratio 15.2 % 10.0-14.5 Automated blood platelet count (count/volume) 286 10*3/uL 130-400 Automated blood platelet mean volume measurement 9.0 [foz_us] 7.4-10.4 Automated blood neutrophils/100 leukocytes 56 % 42-75 Automated blood lymphocytes/100 leukocytes 30 % 12-44 Blood monocytes/100 leukocytes 9 % 0-12 Automated blood eosinophils/100 leukocytes 5 % 0-10 Automated blood basophils/100 leukocytes 0 % 0-10 Blood neutrophils automated count (number/volume) 3.9 10*3 1.8-7.8 Blood lymphocytes automated count (number/volume) 2.1 10*3 1.0-4.0 Blood monocytes automated count (number/volume) 0.7 10*3 0.0-1.0 Automated eosinophil count 0.3 10*3/uL 0.0-0.3 Automated blood basophil count (count/volume) 0.0 10*3/uL 0.0-0.1 Whole blood basic metabolic panel - 03/02/16 19:41 Serum or plasma sodium measurement (moles/volume) 141 mmol/L 135-145 Serum or plasma potassium measurement (moles/volume) 3.7 mmol/L 3.6-5.0 Serum or plasma chloride measurement (moles/volume) 108 mmol/L 98-107 Carbon dioxide 23 mmol/L 21-32 Serum or plasma anion gap determination (moles/volume) 10 mmol/L 5-14 Serum or plasma urea nitrogen measurement (mass/volume) 11 mg/dL 7-18 Serum or plasma creatinine measurement (mass/volume) 0.71 mg/dL 0.60-1.30 Serum or plasma urea nitrogen/creatinine mass ratio 15 NRG Serum or plasma creatinine measurement with calculation of estimated glomerular filtration rate > NRG Serum or plasma glucose measurement (mass/volume) 100 mg/dL 70-105 Serum or plasma calcium measurement (mass/volume) 9.0 mg/dL 8.5-10.1 Serum or plasma lithium measurement (moles/volume) - 03/02/16 19:41 BNP level < pg/mL <100.0 PT panel in platelet poor plasma by coagulation assay - 03/16/16 12:15 Prothrombin time (PT) in platelet poor plasma by coagulation assay 28.7 s 12.2-14.7 INR in platelet poor plasma or blood by coagulation assay 2.7 0.8-1.4 PT panel in platelet poor plasma by coagulation assay - 05/11/16 14:31 Prothrombin time (PT) in platelet poor plasma by coagulation assay 38.3 s 12.2-14.7 INR in platelet poor plasma or blood by coagulation assay 3.9 0.8-1.4 Complete blood count (CBC) with automated white blood cell (WBC) differential - 06/04/16 13:54 Blood leukocytes automated count (number/volume) 8.3 10*3/uL 4.3-11.0 Blood erythrocytes automated count (number/volume) 4.59 10*6/uL 4.35-5.85 Venous blood hemoglobin measurement (mass/volume) 13.3 g/dL 11.5-16.0 Blood hematocrit (volume fraction) 40 % 35-52 Automated erythrocyte mean corpuscular volume 87 [foz_us] 80-99 Automated erythrocyte mean corpuscular hemoglobin (mass per erythrocyte) 29 pg 25-34 Automated erythrocyte mean corpuscular hemoglobin concentration measurement ( mass/volume) 33 g/dL 32-36 Automated erythrocyte distribution width ratio 14.7 % 10.0-14.5 Automated blood platelet count (count/volume) 289 10*3/uL 130-400 Automated blood platelet mean volume measurement 8.9 [foz_us] 7.4-10.4 Automated blood neutrophils/100 leukocytes 63 % 42-75 Automated blood lymphocytes/100 leukocytes 26 % 12-44 Blood monocytes/100 leukocytes 8 % 0-12 Automated blood eosinophils/100 leukocytes 4 % 0-10 Automated blood basophils/100 leukocytes 0 % 0-10 Blood neutrophils automated count (number/volume) 5.2 10*3 1.8-7.8 Blood lymphocytes automated count (number/volume) 2.1 10*3 1.0-4.0 Blood monocytes automated count (number/volume) 0.6 10*3 0.0-1.0 Automated eosinophil count 0.3 10*3/uL 0.0-0.3 Automated blood basophil count (count/volume) 0.0 10*3/uL 0.0-0.1 PT panel in platelet poor plasma by coagulation assay - 06/04/16 13:54 Prothrombin time (PT) in platelet poor plasma by coagulation assay 29.8 s 12.2-14.7 INR in platelet poor plasma or blood by coagulation assay 2.9 0.8-1.4 Arterial blood gas measurement - 06/06/16 03:13 Blood pCO2 44 mm[Hg] 35-45 Blood pO2 144 mm[Hg] 79-93 Arterial blood bicarbonate measurement (moles/volume) 27 mmol/L 23-27 Arterial blood base excess by calculation 1.1 mmol/L -2.5 -2.5 Arterial blood oxygen saturation measurement 99 % 94-100 * Inhaled oxygen flow rate 50% BIPAP NRG Arterial blood pH measurement with patient temperature correction 7.40 7.37-7.43 Arterial blood carbon dioxide, total measurement (moles/volume) 27.9 mmol/L 21.0-31.0 Body site L RAD NRG Assessment of wrist artery patency prior to arterial puncture YES- POS NRG Setting of ventilation mode NO NRG Measurement of body temperature 97.7 NRG Complete blood count (CBC) with automated white blood cell (WBC) differential - 06/06/16 03:15 Blood leukocytes automated count (number/volume) 9.2 10*3/uL 4.3-11.0 Blood erythrocytes automated count (number/volume) 4.55 10*6/uL 4.35-5.85 Venous blood hemoglobin measurement (mass/volume) 13.1 g/dL 11.5-16.0 Blood hematocrit (volume fraction) 40 % 35-52 Automated erythrocyte mean corpuscular volume 89 [foz_us] 80-99 Automated erythrocyte mean corpuscular hemoglobin (mass per erythrocyte) 29 pg 25-34 Automated erythrocyte mean corpuscular hemoglobin concentration measurement ( mass/volume) 32 g/dL 32-36 Automated erythrocyte distribution width ratio 15.1 % 10.0-14.5 Automated blood platelet count (count/volume) 308 10*3/uL 130-400 Automated blood platelet mean volume measurement 9.1 [foz_us] 7.4-10.4 Automated blood neutrophils/100 leukocytes 61 % 42-75 Automated blood lymphocytes/100 leukocytes 29 % 12-44 Blood monocytes/100 leukocytes 9 % 0-12 Automated blood eosinophils/100 leukocytes 1 % 0-10 Automated blood basophils/100 leukocytes 0 % 0-10 Blood neutrophils automated count (number/volume) 5.6 10*3 1.8-7.8 Blood lymphocytes automated count (number/volume) 2.7 10*3 1.0-4.0 Blood monocytes automated count (number/volume) 0.9 10*3 0.0-1.0 Automated eosinophil count 0.1 10*3/uL 0.0-0.3 Automated blood basophil count (count/volume) 0.0 10*3/uL 0.0-0.1 PT panel in platelet poor plasma by coagulation assay - 06/06/16 03:15 Prothrombin time (PT) in platelet poor plasma by coagulation assay 31.2 s 12.2-14.7 INR in platelet poor plasma or blood by coagulation assay 3.0 0.8-1.4 Activated partial thromboplastin time (aPTT) in platelet poor plasma bycoagulation assay - 06/06/16 03:15 Activated partial thromboplastin time (aPTT) in platelet poor plasma bycoagulation assay 34 s 24-35 Blood lactic acid measurement (moles/volume) - 06/06/16 03:15 Blood lactic acid measurement (moles/volume) 1.9 mmol/L 0.5-2.0 Comprehensive metabolic panel - 06/06/16 03:15 Serum or plasma sodium measurement (moles/volume) 143 mmol/L 135-145 Serum or plasma potassium measurement (moles/volume) 3.4 mmol/L 3.6-5.0 Serum or plasma chloride measurement (moles/volume) 107 mmol/L 98-107 Carbon dioxide 23 mmol/L 21-32 Serum or plasma anion gap determination (moles/volume) 13 mmol/L 5-14 Serum or plasma urea nitrogen measurement (mass/volume) 16 mg/dL 7-18 Serum or plasma creatinine measurement (mass/volume) 0.77 mg/dL 0.60-1.30 Serum or plasma urea nitrogen/creatinine mass ratio 21 NRG Serum or plasma creatinine measurement with calculation of estimated glomerular filtration rate > NRG Serum or plasma glucose measurement (mass/volume) 111 mg/dL 70-105 Serum or plasma calcium measurement (mass/volume) 8.9 mg/dL 8.5-10.1 Serum or plasma total bilirubin measurement (mass/volume) 0.2 mg/dL 0.1-1.0 Serum or plasma alkaline phosphatase measurement (enzymatic activity/volume) 76 U/L 40-136 Serum or plasma aspartate aminotransferase measurement (enzymatic activity/ volume) 17 U/L 5-34 Serum or plasma alanine aminotransferase measurement (enzymatic activity/volume ) 22 U/L 0-55 Serum or plasma protein measurement (mass/volume) 7.0 g/dL 6.4-8.2 Serum or plasma albumin measurement (mass/volume) 3.9 g/dL 3.2-4.5 Serum or plasma C reactive protein measurement (mass/volume) - 06/06/16 03:15 Serum or plasma C reactive protein measurement (mass/volume) 0.05 mg /dL 0.00-0.50 Bacterial blood culture - 06/06/16 03:15 Bacterial blood culture NG NRG Bacterial blood culture - 06/06/16 03:19 Bacterial blood culture NG NRG Sputum Gram stain - 06/06/16 13:20 GRAM STAIN SPUTUM AND MIXED BACTERIAL GARRY NRG Bacterial sputum culture - 06/06/16 13:20 Bacterial sputum culture NORMAL NRG Complete blood count (CBC) with automated white blood cell (WBC) differential - 06/07/16 03:41 Blood leukocytes automated count (number/volume) 7.5 10*3/uL 4.3-11.0 Blood erythrocytes automated count (number/volume) 4.71 10*6/uL 4.35-5.85 Venous blood hemoglobin measurement (mass/volume) 13.6 g/dL 11.5-16.0 Blood hematocrit (volume fraction) 42 % 35-52 Automated erythrocyte mean corpuscular volume 90 [foz_us] 80-99 Automated erythrocyte mean corpuscular hemoglobin (mass per erythrocyte) 29 pg 25-34 Automated erythrocyte mean corpuscular hemoglobin concentration measurement ( mass/volume) 32 g/dL 32-36 Automated erythrocyte distribution width ratio 15.4 % 10.0-14.5 Automated blood platelet count (count/volume) 326 10*3/uL 130-400 Automated blood platelet mean volume measurement 9.1 [foz_us] 7.4-10.4 Automated blood neutrophils/100 leukocytes 85 % 42-75 Automated blood lymphocytes/100 leukocytes 9 % 12-44 Blood monocytes/100 leukocytes 4 % 0-12 Automated blood eosinophils/100 leukocytes 0 % 0-10 Automated blood basophils/100 leukocytes 0 % 0-10 Blood neutrophils automated count (number/volume) 6.5 10*3 1.8-7.8 Blood lymphocytes automated count (number/volume) 0.7 10*3 1.0-4.0 Blood monocytes automated count (number/volume) 0.3 10*3 0.0-1.0 Automated eosinophil count 0.0 10*3/uL 0.0-0.3 Automated blood basophil count (count/volume) 0.0 10*3/uL 0.0-0.1 Whole blood basic metabolic panel - 06/07/16 03:41 Serum or plasma sodium measurement (moles/volume) 141 mmol/L 135-145 Serum or plasma potassium measurement (moles/volume) 3.8 mmol/L 3.6-5.0 Serum or plasma chloride measurement (moles/volume) 107 mmol/L 98-107 Carbon dioxide 24 mmol/L 21-32 Serum or plasma anion gap determination (moles/volume) 10 mmol/L 5-14 Serum or plasma urea nitrogen measurement (mass/volume) 18 mg/dL 7-18 Serum or plasma creatinine measurement (mass/volume) 0.72 mg/dL 0.60-1.30 Serum or plasma urea nitrogen/creatinine mass ratio 25 NRG Serum or plasma creatinine measurement with calculation of estimated glomerular filtration rate > NRG Serum or plasma glucose measurement (mass/volume) 121 mg/dL 70-105 Serum or plasma calcium measurement (mass/volume) 9.2 mg/dL 8.5-10.1 PT panel in platelet poor plasma by coagulation assay - 06/07/16 03:41 Prothrombin time (PT) in platelet poor plasma by coagulation assay 29.6 s 12.2-14.7 INR in platelet poor plasma or blood by coagulation assay 2.8 0.8-1.4 PT panel in platelet poor plasma by coagulation assay - 06/25/16 15:37 Prothrombin time (PT) in platelet poor plasma by coagulation assay 44.6 s 12.2-14.7 INR in platelet poor plasma or blood by coagulation assay 4.7 0.8-1.4 Bacterial blood culture - 07/06/16 16:50 Bacterial blood culture NR Complete blood count (CBC) with automated white blood cell (WBC) differential - 07/06/16 16:54 Blood leukocytes automated count (number/volume) 7.5 10*3/uL 4.3-11.0 Blood erythrocytes automated count (number/volume) 4.37 10*6/uL 4.35-5.85 Venous blood hemoglobin measurement (mass/volume) 12.7 g/dL 11.5-16.0 Blood hematocrit (volume fraction) 39 % 35-52 Automated erythrocyte mean corpuscular volume 89 [foz_us] 80-99 Automated erythrocyte mean corpuscular hemoglobin (mass per erythrocyte) 29 pg 25-34 Automated erythrocyte mean corpuscular hemoglobin concentration measurement ( mass/volume) 33 g/dL 32-36 Automated erythrocyte distribution width ratio 15.5 % 10.0-14.5 Automated blood platelet count (count/volume) 375 10*3/uL 130-400 Automated blood platelet mean volume measurement 8.8 [foz_us] 7.4-10.4 Automated blood neutrophils/100 leukocytes 57 % 42-75 Automated blood lymphocytes/100 leukocytes 30 % 12-44 Blood monocytes/100 leukocytes 10 % 0-12 Automated blood eosinophils/100 leukocytes 3 % 0-10 Automated blood basophils/100 leukocytes 0 % 0-10 Blood neutrophils automated count (number/volume) 4.2 10*3 1.8-7.8 Blood lymphocytes automated count (number/volume) 2.3 10*3 1.0-4.0 Blood monocytes automated count (number/volume) 0.8 10*3 0.0-1.0 Automated eosinophil count 0.2 10*3/uL 0.0-0.3 Automated blood basophil count (count/volume) 0.0 10*3/uL 0.0-0.1 PT panel in platelet poor plasma by coagulation assay - 07/06/16 16:54 Prothrombin time (PT) in platelet poor plasma by coagulation assay 24.6 s 12.2-14.7 INR in platelet poor plasma or blood by coagulation assay 2.2 0.8-1.4 Activated partial thromboplastin time (aPTT) in platelet poor plasma bycoagulation assay - 07/06/16 16:54 Activated partial thromboplastin time (aPTT) in platelet poor plasma bycoagulation assay 36 s 24-35 Influenza virus A and B antigen detection - 07/06/16 16:54 FLU RESULT NEGATIVE FOR INFLUENZA A AND B ANTIGENS BY [facility] Blood lactic acid measurement (moles/volume) - 07/06/16 16:54 Blood lactic acid measurement (moles/volume) 0.9 mmol/L 0.5-2.0 Comprehensive metabolic panel - 07/06/16 16:54 Serum or plasma sodium measurement (moles/volume) 139 mmol/L 135-145 Serum or plasma potassium measurement (moles/volume) 3.8 mmol/L 3.6-5.0 Serum or plasma chloride measurement (moles/volume) 107 mmol/L 98-107 Carbon dioxide 23 mmol/L 21-32 Serum or plasma anion gap determination (moles/volume) 9 mmol/L 5-14 Serum or plasma urea nitrogen measurement (mass/volume) 7 mg/dL 7-18 Serum or plasma creatinine measurement (mass/volume) 0.66 mg/dL 0.60-1.30 Serum or plasma urea nitrogen/creatinine mass ratio 11 NRG Serum or plasma creatinine measurement with calculation of estimated glomerular filtration rate > NRG Serum or plasma glucose measurement (mass/volume) 92 mg/dL 70-105 Serum or plasma calcium measurement (mass/volume) 8.9 mg/dL 8.5-10.1 Serum or plasma total bilirubin measurement (mass/volume) 0.5 mg/dL 0.1-1.0 Serum or plasma alkaline phosphatase measurement (enzymatic activity/volume) 58 U/L 40-136 Serum or plasma aspartate aminotransferase measurement (enzymatic activity/ volume) 18 U/L 5-34 Serum or plasma alanine aminotransferase measurement (enzymatic activity/volume ) 23 U/L 0-55 Serum or plasma protein measurement (mass/volume) 6.9 g/dL 6.4-8.2 Serum or plasma albumin measurement (mass/volume) 3.6 g/dL 3.2-4.5 Bacterial blood culture - 07/06/16 16:54 Bacterial blood culture NG NRG Complete urinalysis with reflex to culture - 07/06/16 17:40 Urine color determination YELLOW NRG Urine clarity determination CLEAR NRG Urine pH measurement by test strip 7 5-9 Specific gravity of urine by test strip 1.010 1.016- 1.022 Urine protein assay by test strip, semi-quantitative NEGATIVE NEGATIVE Urine glucose detection by automated test strip NEGATIVE NEGATIVE Erythrocytes detection in urine sediment by light microscopy 1+ NEGATIVE Urine ketones detection by automated test strip NEGATIVE NEGATIVE Urine nitrite detection by test strip NEGATIVE NEGATIVE Urine total bilirubin detection by test strip NEGATIVE NEGATIVE Urine urobilinogen measurement by automated test strip (mass/volume) 1 mg/dL NORMAL Urine leukocyte esterase detection by dipstick 2+ NEGATIVE Automated urine sediment erythrocyte count by microscopy (number/high power field) NONE NRG Automated urine sediment leukocyte count by microscopy (number/high power field ) [HPF] NRG Bacteria detection in urine sediment by light microscopy TRACE NRG Squamous epithelial cells detection in urine sediment by light microscopy 0-2 NRG Crystals detection in urine sediment by light microscopy NONE NRG Casts detection in urine sediment by light microscopy NONE NRG Mucus detection in urine sediment by light microscopy NEGATIVE NRG Complete urinalysis with reflex to culture NO NRG Complete blood count (CBC) with automated white blood cell (WBC) differential - 07/23/16 10:50 Blood leukocytes automated count (number/volume) 7.5 10*3/uL 4.3-11.0 Blood erythrocytes automated count (number/volume) 4.70 10*6/uL 4.35-5.85 Venous blood hemoglobin measurement (mass/volume) 13.6 g/dL 11.5-16.0 Blood hematocrit (volume fraction) 41 % 35-52 Automated erythrocyte mean corpuscular volume 88 [foz_us] 80-99 Automated erythrocyte mean corpuscular hemoglobin (mass per erythrocyte) 29 pg 25-34 Automated erythrocyte mean corpuscular hemoglobin concentration measurement ( mass/volume) 33 g/dL 32-36 Automated erythrocyte distribution width ratio 16.0 % 10.0-14.5 Automated blood platelet count (count/volume) 337 10*3/uL 130-400 Automated blood platelet mean volume measurement 9.5 [foz_us] 7.4-10.4 Automated blood neutrophils/100 leukocytes 50 % 42-75 Automated blood lymphocytes/100 leukocytes 26 % 12-44 Blood monocytes/100 leukocytes 8 % 0-12 Automated blood eosinophils/100 leukocytes 15 % 0-10 Automated blood basophils/100 leukocytes 0 % 0-10 Blood neutrophils automated count (number/volume) 3.7 10*3 1.8-7.8 Blood lymphocytes automated count (number/volume) 2.0 10*3 1.0-4.0 Blood monocytes automated count (number/volume) 0.6 10*3 0.0-1.0 Automated eosinophil count 1.1 10*3/uL 0.0-0.3 Automated blood basophil count (count/volume) 0.0 10*3/uL 0.0-0.1 PT panel in platelet poor plasma by coagulation assay - 07/23/16 10:50 Prothrombin time (PT) in platelet poor plasma by coagulation assay 36.0 s 12.2-14.7 INR in platelet poor plasma or blood by coagulation assay 3.6 0.8-1.4 Blood manual differential performed detection - 07/23/16 10:50 Blood monocytes/100 leukocytes 6 % [facility] Manual blood segmented neutrophils/100 leukocytes 51 % NR Blood band neutrophils/100 leukocytes 0 % NR Manual blood lymphocytes/100 leukocytes 28 % NR Manual eosinophils/100 leukocytes in nose 15 % NR Manual blood basophils/100 leukocytes 0 % NR Blood anisocytosis detection by light microscopy SLIGHT [facility] Comprehensive metabolic panel - 07/23/16 11:25 Serum or plasma sodium measurement (moles/volume) 141 mmol/L 135-145 Serum or plasma potassium measurement (moles/volume) 3.4 mmol/L 3.6-5.0 Serum or plasma chloride measurement (moles/volume) 105 mmol/L 98-107 Carbon dioxide 23 mmol/L 21-32 Serum or plasma anion gap determination (moles/volume) 13 mmol/L 5-14 Serum or plasma urea nitrogen measurement (mass/volume) 7 mg/dL 7-18 Serum or plasma creatinine measurement (mass/volume) 0.68 mg/dL 0.60-1.30 Serum or plasma urea nitrogen/creatinine mass ratio 10 [facility] Serum or plasma creatinine measurement with calculation of estimated glomerular filtration rate > [facility] Serum or plasma glucose measurement (mass/volume) 117 mg/dL 70-105 Serum or plasma calcium measurement (mass/volume) 9.5 mg/dL 8.5-10.1 Serum or plasma total bilirubin measurement (mass/volume) 0.3 mg/dL 0.1-1.0 Serum or plasma alkaline phosphatase measurement (enzymatic activity/volume) 64 U/L 40-136 Serum or plasma aspartate aminotransferase measurement (enzymatic activity/ volume) 21 U/L 5-34 Serum or plasma alanine aminotransferase measurement (enzymatic activity/volume ) 22 U/L 0-55 Serum or plasma protein measurement (mass/volume) 7.6 g/dL 6.4-8.2 Serum or plasma albumin measurement (mass/volume) 4.1 g/dL 3.2-4.5 Magnesium - 07/23/16 11:25 Magnesium 1.7 mg/dL 1.8-2.4 Serum or plasma lithium measurement (moles/volume) - 07/23/16 11:25 BNP level < pg/mL <100.0 Serum or plasma troponin i.cardiac measurement (mass/volume) - 07/23/16 11:25 Serum or plasma troponin i.cardiac measurement (mass/volume) < ng/ mL <0.30 Complete blood count (CBC) with automated white blood cell (WBC) differential - 08/03/16 09:45 Blood leukocytes automated count (number/volume) 9.0 10*3/uL 4.3-11.0 Blood erythrocytes automated count (number/volume) 4.68 10*6/uL 4.35-5.85 Venous blood hemoglobin measurement (mass/volume) 13.5 g/dL 11.5-16.0 Blood hematocrit (volume fraction) 42 % 35-52 Automated erythrocyte mean corpuscular volume 91 [foz_us] 80-99 Automated erythrocyte mean corpuscular hemoglobin (mass per erythrocyte) 29 pg 25-34 Automated erythrocyte mean corpuscular hemoglobin concentration measurement ( mass/volume) 32 g/dL 32-36 Automated erythrocyte distribution width ratio 15.8 % 10.0-14.5 Automated blood platelet count (count/volume) 337 10*3/uL 130-400 Automated blood platelet mean volume measurement 8.7 [foz_us] 7.4-10.4 Automated blood neutrophils/100 leukocytes 51 % 42-75 Automated blood lymphocytes/100 leukocytes 31 % 12-44 Blood monocytes/100 leukocytes 11 % 0-12 Automated blood eosinophils/100 leukocytes 7 % 0-10 Automated blood basophils/100 leukocytes 0 % 0-10 Blood neutrophils automated count (number/volume) 4.6 10*3 1.8-7.8 Blood lymphocytes automated count (number/volume) 2.8 10*3 1.0-4.0 Blood monocytes automated count (number/volume) 1.0 10*3 0.0-1.0 Automated eosinophil count 0.6 10*3/uL 0.0-0.3 Automated blood basophil count (count/volume) 0.0 10*3/uL 0.0-0.1 PT panel in platelet poor plasma by coagulation assay - 08/03/16 09:45 Prothrombin time (PT) in platelet poor plasma by coagulation assay 31.3 s 12.2-14.7 INR in platelet poor plasma or blood by coagulation assay 3.0 0.8-1.4 Comprehensive metabolic panel - 08/09/16 08:00 Serum or plasma sodium measurement (moles/volume) 142 mmol/L 135-145 Serum or plasma potassium measurement (moles/volume) 3.9 mmol/L 3.6-5.0 Serum or plasma chloride measurement (moles/volume) 110 mmol/L 98-107 Carbon dioxide 25 mmol/L 21-32 Serum or plasma anion gap determination (moles/volume) 7 mmol/L 5-14 Serum or plasma urea nitrogen measurement (mass/volume) 8 mg/dL 7-18 Serum or plasma creatinine measurement (mass/volume) 0.67 mg/dL 0.60-1.30 Serum or plasma urea nitrogen/creatinine mass ratio 12 NRG Serum or plasma creatinine measurement with calculation of estimated glomerular filtration rate > NRG Serum or plasma glucose measurement (mass/volume) 119 mg/dL 70-105 Serum or plasma calcium measurement (mass/volume) 8.2 mg/dL 8.5-10.1 Serum or plasma total bilirubin measurement (mass/volume) 0.4 mg/dL 0.1-1.0 Serum or plasma alkaline phosphatase measurement (enzymatic activity/volume) 61 U/L 40-136 Serum or plasma aspartate aminotransferase measurement (enzymatic activity/ volume) 18 U/L 5-34 Serum or plasma alanine aminotransferase measurement (enzymatic activity/volume ) 23 U/L 0-55 Serum or plasma protein measurement (mass/volume) 6.1 g/dL 6.4-8.2 Serum or plasma albumin measurement (mass/volume) 3.3 g/dL 3.2-4.5 Lipid 1996 panel - 08/09/16 08:00 Serum or plasma triglyceride measurement (mass/volume) 208 mg/dL <150 Serum or plasma cholesterol measurement (mass/volume) 205 mg/dL < 200 Serum or plasma cholesterol in HDL measurement (mass/volume) 38 mg/ dL 40-60 Cholesterol in LDL [mass/volume] in serum or plasma by direct assay 144 mg/dL 1-129 Serum or plasma cholesterol in VLDL measurement (mass/volume) 42 mg/ dL 5-40 THYROID STIMULATING HORMONE - 08/09/16 08:00 THYROID STIMULATING HORMONE 1.17 u[iU]/mL 0.35-4.94 PT panel in platelet poor plasma by coagulation assay - 09/06/16 16:26 Prothrombin time (PT) in platelet poor plasma by coagulation assay 61.5 s 12.2-14.7 INR in platelet poor plasma or blood by coagulation assay 7.0 0.8-1.4 PT panel in platelet poor plasma by coagulation assay - 12/16/16 19:25 Prothrombin time (PT) in platelet poor plasma by coagulation assay 22.8 s 12.2-14.7 INR in platelet poor plasma or blood by coagulation assay 2.0 0.8-1.4 Activated partial thromboplastin time (aPTT) in platelet poor plasma bycoagulation assay - 12/16/16 19:25 Activated partial thromboplastin time (aPTT) in platelet poor plasma bycoagulation assay 27 s 24-35 Complete blood count (CBC) with automated white blood cell (WBC) differential - 01/01/17 22:00 Blood leukocytes automated count (number/volume) 9.5 10*3/uL 4.3-11.0 Blood erythrocytes automated count (number/volume) 4.58 10*6/uL 4.35-5.85 Venous blood hemoglobin measurement (mass/volume) 12.9 g/dL 11.5-16.0 Blood hematocrit (volume fraction) 40 % 35-52 Automated erythrocyte mean corpuscular volume 87 [foz_us] 80-99 Automated erythrocyte mean corpuscular hemoglobin (mass per erythrocyte) 28 pg 25-34 Automated erythrocyte mean corpuscular hemoglobin concentration measurement ( mass/volume) 32 g/dL 32-36 Automated erythrocyte distribution width ratio 15.0 % 10.0-14.5 Automated blood platelet count (count/volume) 291 10*3/uL 130-400 Automated blood platelet mean volume measurement 9.1 [foz_us] 7.4-10.4 Automated blood neutrophils/100 leukocytes 57 % 42-75 Automated blood lymphocytes/100 leukocytes 28 % 12-44 Blood monocytes/100 leukocytes 9 % 0-12 Automated blood eosinophils/100 leukocytes 6 % 0-10 Automated blood basophils/100 leukocytes 1 % 0-10 Blood neutrophils automated count (number/volume) 5.4 10*3 1.8-7.8 Blood lymphocytes automated count (number/volume) 2.6 10*3 1.0-4.0 Blood monocytes automated count (number/volume) 0.8 10*3 0.0-1.0 Automated eosinophil count 0.6 10*3/uL 0.0-0.3 Automated blood basophil count (count/volume) 0.1 10*3/uL 0.0-0.1 Comprehensive metabolic panel - 01/01/17 22:00 Serum or plasma sodium measurement (moles/volume) 138 mmol/L 135-145 Serum or plasma potassium measurement (moles/volume) 3.7 mmol/L 3.6-5.0 Serum or plasma chloride measurement (moles/volume) 103 mmol/L 98-107 Carbon dioxide 25 mmol/L 21-32 Serum or plasma anion gap determination (moles/volume) 10 mmol/L 5-14 Serum or plasma urea nitrogen measurement (mass/volume) 12 mg/dL 7-18 Serum or plasma creatinine measurement (mass/volume) 1.09 mg/dL 0.60-1.30 Serum or plasma urea nitrogen/creatinine mass ratio 11 NRG Serum or plasma creatinine measurement with calculation of estimated glomerular filtration rate 52 NRG Serum or plasma glucose measurement (mass/volume) 128 mg/dL 70-105 Serum or plasma calcium measurement (mass/volume) 9.2 mg/dL 8.5-10.1 Serum or plasma total bilirubin measurement (mass/volume) 0.4 mg/dL 0.1-1.0 Serum or plasma alkaline phosphatase measurement (enzymatic activity/volume) 62 U/L 40-136 Serum or plasma aspartate aminotransferase measurement (enzymatic activity/ volume) 19 U/L 5-34 Serum or plasma alanine aminotransferase measurement (enzymatic activity/volume ) 20 U/L 0-55 Serum or plasma protein measurement (mass/volume) 7.2 g/dL 6.4-8.2 Serum or plasma albumin measurement (mass/volume) 3.7 g/dL 3.2-4.5 Serum or plasma C reactive protein measurement (mass/volume) - 01/01/17 22:00 Serum or plasma C reactive protein measurement (mass/volume) 0.32 mg /dL 0.00-0.50 PT panel in platelet poor plasma by coagulation assay - 01/01/17 22:05 Prothrombin time (PT) in platelet poor plasma by coagulation assay 23.6 s 12.2-14.7 INR in platelet poor plasma or blood by coagulation assay 2.1 0.8-1.4 Complete blood count (CBC) with automated white blood cell (WBC) differential - 03/16/17 13:05 Blood leukocytes automated count (number/volume) 6.5 10*3/uL 4.3-11.0 Blood erythrocytes automated count (number/volume) 4.37 10*6/uL 4.35-5.85 Venous blood hemoglobin measurement (mass/volume) 12.5 g/dL 11.5-16.0 Blood hematocrit (volume fraction) 39 % 35-52 Automated erythrocyte mean corpuscular volume 88 [foz_us] 80-99 Automated erythrocyte mean corpuscular hemoglobin (mass per erythrocyte) 29 pg 25-34 Automated erythrocyte mean corpuscular hemoglobin concentration measurement ( mass/volume) 32 g/dL 32-36 Automated erythrocyte distribution width ratio 15.1 % 10.0-14.5 Automated blood platelet count (count/volume) 300 10*3/uL 130-400 Automated blood platelet mean volume measurement 9.0 [foz_us] 7.4-10.4 Automated blood neutrophils/100 leukocytes 55 % 42-75 Automated blood lymphocytes/100 leukocytes 28 % 12-44 Blood monocytes/100 leukocytes 8 % 0-12 Automated blood eosinophils/100 leukocytes 9 % 0-10 Automated blood basophils/100 leukocytes 0 % 0-10 Blood neutrophils automated count (number/volume) 3.6 10*3 1.8-7.8 Blood lymphocytes automated count (number/volume) 1.8 10*3 1.0-4.0 Blood monocytes automated count (number/volume) 0.5 10*3 0.0-1.0 Automated eosinophil count 0.6 10*3/uL 0.0-0.3 Automated blood basophil count (count/volume) 0.0 10*3/uL 0.0-0.1 PT panel in platelet poor plasma by coagulation assay - 03/16/17 13:05 Prothrombin time (PT) in platelet poor plasma by coagulation assay 18.5 s 12.2-14.7 INR in platelet poor plasma or blood by coagulation assay 1.5 0.8-1.4 Comprehensive metabolic panel - 03/16/17 13:05 Serum or plasma sodium measurement (moles/volume) 139 mmol/L 135-145 Serum or plasma potassium measurement (moles/volume) 3.4 mmol/L 3.6-5.0 Serum or plasma chloride measurement (moles/volume) 105 mmol/L 98-107 Carbon dioxide 26 mmol/L 21-32 Serum or plasma anion gap determination (moles/volume) 8 mmol/L 5-14 Serum or plasma urea nitrogen measurement (mass/volume) 7 mg/dL 7-18 Serum or plasma creatinine measurement (mass/volume) 0.64 mg/dL 0.60-1.30 Serum or plasma urea nitrogen/creatinine mass ratio 11 NRG Serum or plasma creatinine measurement with calculation of estimated glomerular filtration rate > NRG Serum or plasma glucose measurement (mass/volume) 90 mg/dL 70-105 Serum or plasma calcium measurement (mass/volume) 9.2 mg/dL 8.5-10.1 Serum or plasma total bilirubin measurement (mass/volume) 0.4 mg/dL 0.1-1.0 Serum or plasma alkaline phosphatase measurement (enzymatic activity/volume) 68 U/L 40-136 Serum or plasma aspartate aminotransferase measurement (enzymatic activity/ volume) 19 U/L 5-34 Serum or plasma alanine aminotransferase measurement (enzymatic activity/volume ) 18 U/L 0-55 Serum or plasma protein measurement (mass/volume) 7.2 g/dL 6.4-8.2 Serum or plasma albumin measurement (mass/volume) 3.8 g/dL 3.2-4.5 Methicillin resistant Staphylococcus aureus (MRSA) screening culture - 09:35 Methicillin resistant Staphylococcus aureus (MRSA) screening culture NEG NRG PT panel in platelet poor plasma by coagulation assay - 04/18/17 07:20 Prothrombin time (PT) in platelet poor plasma by coagulation assay 13.6 s 12.2-14.7 INR in platelet poor plasma or blood by coagulation assay 1.0 0.8-1.4 Capillary blood glucose measurement by glucometer (mass/volume) - 04/18/17 07: 28 Capillary blood glucose measurement by glucometer (mass/volume) 114 mg/dL 70-110 Gram stain microscopy - 05/05/17 21:29 GRAM STAIN RESULT NO WBC'S OR BACTERIA OBSERVED NRG Bacteria identification in wound by culture - 05/05/17 21:29 Bacteria identification in wound by culture [id number] NRG FREE TEXT EXTERNAL (2 COLONY TYPES) NRG QUANTITY OF GROWTH Scant Growth NRG FREE TEXT ENTRY 2 NO FURTHER STUDIES UNLESS REQUESTED NRG Complete blood count (CBC) with automated white blood cell (WBC) differential - 05/05/17 21:40 Blood leukocytes automated count (number/volume) 7.2 10*3/uL 4.3-11.0 Blood erythrocytes automated count (number/volume) 4.19 10*6/uL 4.35-5.85 Venous blood hemoglobin measurement (mass/volume) 12.0 g/dL 11.5-16.0 Blood hematocrit (volume fraction) 37 % 35-52 Automated erythrocyte mean corpuscular volume 88 [foz_us] 80-99 Automated erythrocyte mean corpuscular hemoglobin (mass per erythrocyte) 29 pg 25-34 Automated erythrocyte mean corpuscular hemoglobin concentration measurement ( mass/volume) 33 g/dL 32-36 Automated erythrocyte distribution width ratio 14.9 % 10.0-14.5 Automated blood platelet count (count/volume) 278 10*3/uL 130-400 Automated blood platelet mean volume measurement 9.3 [foz_us] 7.4-10.4 Automated blood neutrophils/100 leukocytes 52 % 42-75 Automated blood lymphocytes/100 leukocytes 33 % 12-44 Blood monocytes/100 leukocytes 9 % 0-12 Automated blood eosinophils/100 leukocytes 6 % 0-10 Automated blood basophils/100 leukocytes 0 % 0-10 Blood neutrophils automated count (number/volume) 3.7 10*3 1.8-7.8 Blood lymphocytes automated count (number/volume) 2.4 10*3 1.0-4.0 Blood monocytes automated count (number/volume) 0.6 10*3 0.0-1.0 Automated eosinophil count 0.4 10*3/uL 0.0-0.3 Automated blood basophil count (count/volume) 0.0 10*3/uL 0.0-0.1 Whole blood basic metabolic panel - 05/05/17 21:40 Serum or plasma sodium measurement (moles/volume) 138 mmol/L 135-145 Serum or plasma potassium measurement (moles/volume) 3.1 mmol/L 3.6-5.0 Serum or plasma chloride measurement (moles/volume) 102 mmol/L 98-107 Carbon dioxide 24 mmol/L 21-32 Serum or plasma anion gap determination (moles/volume) 12 mmol/L 5-14 Serum or plasma urea nitrogen measurement (mass/volume) 9 mg/dL 7-18 Serum or plasma creatinine measurement (mass/volume) 0.67 mg/dL 0.60-1.30 Serum or plasma urea nitrogen/creatinine mass ratio 13 NRG Serum or plasma creatinine measurement with calculation of estimated glomerular filtration rate > NRG Serum or plasma glucose measurement (mass/volume) 142 mg/dL 70-105 Serum or plasma calcium measurement (mass/volume) 8.3 mg/dL 8.5-10.1 Serum or plasma C reactive protein measurement (mass/volume) - 05/05/17 21:40 Serum or plasma C reactive protein measurement (mass/volume) 0.32 mg /dL 0.00-0.50 PT panel in platelet poor plasma by coagulation assay - 05/05/17 21:40 Prothrombin time (PT) in platelet poor plasma by coagulation assay 21.4 s 12.2-14.7 INR in platelet poor plasma or blood by coagulation assay 1.9 0.8-1.4 Fibrin D-dimer FEU measurement in platelet poor plasma (mass/volume) - 21:40 Fibrin D-dimer FEU measurement in platelet poor plasma (mass/volume) 0.54 ug/mL 0.00-0.49 Complete blood count (CBC) with automated white blood cell (WBC) differential - 05/18/17 00:59 Blood leukocytes automated count (number/volume) 11.5 10*3/uL 4.3-11.0 Blood erythrocytes automated count (number/volume) 4.52 10*6/uL 4.35-5.85 Venous blood hemoglobin measurement (mass/volume) 12.7 g/dL 11.5-16.0 Blood hematocrit (volume fraction) 37 % 35-52 Automated erythrocyte mean corpuscular volume 81 [foz_us] 80-99 Automated erythrocyte mean corpuscular hemoglobin (mass per erythrocyte) 28 pg 25-34 Automated erythrocyte mean corpuscular hemoglobin concentration measurement ( mass/volume) 35 g/dL 32-36 Automated erythrocyte distribution width ratio 14.8 % 10.0-14.5 Automated blood platelet count (count/volume) 412 10*3/uL 130-400 Automated blood platelet mean volume measurement 8.7 [foz_us] 7.4-10.4 Automated blood neutrophils/100 leukocytes 47 % 42-75 Automated blood lymphocytes/100 leukocytes 42 % 12-44 Blood monocytes/100 leukocytes 11 % 0-12 Automated blood eosinophils/100 leukocytes 0 % 0-10 Automated blood basophils/100 leukocytes 0 % 0-10 Blood neutrophils automated count (number/volume) 5.4 10*3 1.8-7.8 Blood lymphocytes automated count (number/volume) 4.8 10*3 1.0-4.0 Blood monocytes automated count (number/volume) 1.3 10*3 0.0-1.0 Automated eosinophil count 0.0 10*3/uL 0.0-0.3 Automated blood basophil count (count/volume) 0.0 10*3/uL 0.0-0.1 Influenza virus A and B antigen detection - 05/18/17 00:59 FLU RESULT NEGATIVE FOR INFLUENZA A AND B ANTIGENS BY IA [facility] Comprehensive metabolic panel - 05/18/17 00:59 Serum or plasma sodium measurement (moles/volume) 147 mmol/L 135-145 Serum or plasma potassium measurement (moles/volume) 3.3 mmol/L 3.6-5.0 Serum or plasma chloride measurement (moles/volume) 109 mmol/L 98-107 Carbon dioxide 25 mmol/L 21-32 Serum or plasma anion gap determination (moles/volume) 13 mmol/L 5-14 Serum or plasma urea nitrogen measurement (mass/volume) 17 mg/dL 7-18 Serum or plasma creatinine measurement (mass/volume) 0.79 mg/dL 0.60-1.30 Serum or plasma urea nitrogen/creatinine mass ratio 22 [facility] Serum or plasma creatinine measurement with calculation of estimated glomerular filtration rate > [facility] Serum or plasma glucose measurement (mass/volume) 114 mg/dL 70-105 Serum or plasma calcium measurement (mass/volume) 9.7 mg/dL 8.5-10.1 Serum or plasma total bilirubin measurement (mass/volume) 0.2 mg/dL 0.1-1.0 Serum or plasma alkaline phosphatase measurement (enzymatic activity/volume) 80 U/L 40-136 Serum or plasma aspartate aminotransferase measurement (enzymatic activity/ volume) 18 U/L 5-34 Serum or plasma alanine aminotransferase measurement (enzymatic activity/volume ) 18 U/L 0-55 Serum or plasma protein measurement (mass/volume) 8.1 g/dL 6.4-8.2 Serum or plasma albumin measurement (mass/volume) 4.0 g/dL 3.2-4.5 Magnesium - 05/18/17 00:59 Magnesium 2.3 mg/dL 1.8-2.4 PT panel in platelet poor plasma by coagulation assay - 05/18/17 00:59 Prothrombin time (PT) in platelet poor plasma by coagulation assay 20.2 s 12.2-14.7 INR in platelet poor plasma or blood by coagulation assay 1.7 0.8-1.4 Activated partial thromboplastin time (aPTT) in platelet poor plasma bycoagulation assay - 05/18/17 00:59 Activated partial thromboplastin time (aPTT) in platelet poor plasma bycoagulation assay 29 s 24-35 Serum or plasma lithium measurement (moles/volume) - 05/18/17 00:59 BNP level 15.1 pg/mL <100.0 Encounters ACCT No. Visit Date/Time Discharge Status Pt. Type Provider Facility Loc./Unit Complaint [id number] 05/08/2017 12:10:00 05/08/2017 23:59:59 CLS Outpatient HOWARD SALDANA MD [facility] WOUNDCARE [id number] 05/05/2017 20:29:00 05/06/2017 00:36:00 DIS Emergency ALVA BENJAMIN MD [facility] ER WOUND CARE L LEG PAIN [id number] 05/01/2017 08:30:00 05/01/2017 23:59:59 CLS Outpatient HOWARD SALDANA MD [facility] WOUNDCARE [id number] 04/19/2017 11:00:00 04/20/2017 12:10:00 DIS Inpatient HOWARD GROVES MD [facility] 4TH NASAL POLYPS,URETERAL STONE [id number] 04/18/2017 11:00:00 04/18/2017 23:59:59 CLS Preadmit ARIES FERRARO MD [facility] SDC RIGHT URETERAL STONES [id number] 04/16/2017 10:00:00 04/16/2017 23:59:59 CLS Outpatient LEAH WOLF MD [facility] PULM J44.1 [id number] 04/12/2017 08:57:00 04/12/2017 09:45:00 DIS Outpatient HOWARD GROVES MD [facility] PREOP NASAL POLYPS,RT URETERAL STONE [id number] 04/03/2017 15:10:00 04/03/2017 23:59:59 CLS Outpatient ARIES FERRARO MD [facility] RAD Z87.442 [id number] 04/02/2017 10:47:00 04/02/2017 23:59:59 CLS Outpatient CHULA LAKE [facility] RAD DERANGEMENT OF OTHER LATERAL MENISCUS DUE TO OLD T [id number] 03/29/2017 10:41:00 03/29/2017 23:59:59 CLS Outpatient TEDDY PHILIP MD [facility] RAD RUQ PAIN [id number] 03/26/2017 14:42:00 03/26/2017 23:59:59 CLS Outpatient LEAH WOLF MD [facility] CARD PREOP [id number] 03/20/2017 10:18:00 03/20/2017 23:59:59 CLS Outpatient LEAH WOLF MD [facility] RAD HYPERECHOIC LESION 730 POSITION R BREAST [id number] 03/20/2017 10:12:00 03/20/2017 23:59:59 CLS Outpatient LEAH WOLF MD [facility] RAD 6MM R NODULE [id number] 03/16/2017 11:49:00 03/16/2017 14:37:00 DIS Emergency JESUS ROSARIO, FELIBERTO S [facility] ER L LEG PAIN, SWELLING, REDNESS [id number] 03/07/2017 14:22:00 03/07/2017 23:59:59 CLS Outpatient LEAH WOLF MD [facility] RAD R LOWER ABD PAIN, TRAPEASE PLACED 05/28/69 [id number] 02/15/2017 11:33:00 02/15/2017 23:59:59 CLS Outpatient YANELI ROSARIO, HOWARD Logan [facility] RAD NASAL POLYS [id number] 01/01/2017 21:37:00 01/02/2017 01:03:00 DIS Emergency SOURAV ROSARIO, ALVA Casanova [facility] ER SOB [id number] 12/25/2016 08:27:00 12/25/2016 23:59:59 CLS Outpatient LEAH WOLF MD [facility] RAD 6 MM ASYMMETRY LATERAL R BREAST [id number] 12/16/2016 18:36:00 12/16/2016 20:36:00 DIS Emergency STEPHANIE GREENWOOD [facility] ER L LEG PAIN/SWELLING [id number] 12/10/2016 14:47:00 12/10/2016 23:59:59 CLS Outpatient LEAH WOLF MD [facility] RAD SCREENING Z12.31 [id number] 12/06/2016 00:16:00 12/06/2016 23:59:59 CLS Preadmit LEAH WOLF MD [facility] LAB COMADIN THERAPY [id number] 09/06/2016 16:15:00 12/05/2016 00:01:00 DIS Outpatient LEAH WOLF MD [facility] LAB COMADIN THERAPY [id number] 09/19/2016 10:34:00 09/19/2016 23:59:59 CLS Outpatient LEAH WOLF MD [facility] RAD MICRONODULES RML AND LLL BASES [id number] 08/09/2016 07:51:00 08/09/2016 23:59:59 CLS Outpatient CHARITY ROSARIO FACC, PAVAN WOLFF CCDS [facility] CARD CLAUDICATION, CAD,COPD,SOB,LEG SWELLING,HTN [id number] 05/11/2016 14:21:00 08/09/2016 00:01:00 DIS Outpatient LEAH WOLF MD [facility] LAB COMADIN THERAPY [id number] 08/07/2016 14:33:00 08/07/2016 23:59:59 CLS Outpatient PAVAN NASH MD, FACC, FACP CCDS [facility] CARD CLAUDICATION, CAD,COPD,SOB,LEG SWELLING,HYPERTENSIO [id number] 08/03/2016 09:28:00 08/03/2016 23:59:59 CLS Outpatient LEAH WOLF MD [facility] LAB RECTAL BLEED [id number] 07/23/2016 14:07:00 07/25/2016 14:25:00 DIS Inpatient LEAH WOLF MD Via [address] AECOPD HYPONATREMIA DYSPNEA [id number] 07/11/2016 13:17:00 07/11/2016 23:59:59 CLS Outpatient CHARITY ROSARIO FACC, PAVAN WOLFF CCDS [facility] RAD CLAUDICATION, CAD,COPD,SOB,LEG SWELLING,HYPERTENSIO [id number] 07/06/2016 15:33:00 07/06/2016 19:10:00 DIS Emergency ALVA BENJAMIN MD [facility] ER L LEG PAIN/L ABD PAIN [id number] 06/06/2016 05:44:00 06/11/2016 10:26:00 DIS Inpatient LEAH WOLF MD [facility] 4TH COPD ACUTE EXACERBATION- DYSPNEA [id number] 06/04/2016 13:04:00 06/04/2016 15:30:00 DIS Emergency KAMRAN LINDQUIST APRN [facility] ER COUGH/CONGESTION WHEEZING [id number] 04/16/2016 15:26:00 04/16/2016 15:59:00 DIS Outpatient LEAH WOLF MD [facility] SLEEP OBSERVED APNEA,SNORING, HPN,EDS,AM KHALIL [id number] 03/16/2016 12:21:00 04/02/2016 00:01:00 DIS Outpatient LEAH WOLF MD [facility] LAB COMADIN THERAPY [id number] 03/16/2016 10:58:00 03/16/2016 23:59:59 CLS Outpatient CHULA LAKE [facility] RAD OTHER INJURY OF MUSCLES AND TENDONS [id number] 03/02/2016 19:12:00 03/02/2016 21:14:00 DIS Emergency ALVA BENJAMIN MD [facility] ER SOA [id number] 01/24/2016 12:07:00 01/24/2016 13:29:00 DIS Emergency KAMRAN LINDQUIST APRN [facility] ER SOA [id number] 12/08/2015 09:32:00 12/08/2015 23:59:59 CLS Outpatient LEAH WOLF MD [facility] RAD SCREENING [id number] 11/30/2015 12:25:00 11/30/2015 14:26:00 DIS Emergency STEPHANIE ECKERT DO [facility] ER COUGH/CONGESTION SOA [id number] 10/24/2015 13:32:00 11/27/2015 00:01:00 DIS Outpatient LEAH WOLF MD [facility] LAB COMADIN THERAPY [id number] 11/07/2015 19:21:00 11/07/2015 21:58:00 DIS Emergency SALOMÓN ELY DO D [facility] ER CONGESTION,SOA,HEADACHE [id number] 10/13/2015 11:41:00 10/13/2015 13:50:00 DIS Emergency KAMRAN LINDQUIST APRN [facility] ER LEFT SIDE PAIN SOA [id number] 09/24/2015 15:42:00 09/24/2015 18:47:00 DIS Emergency JESUS ROSARIO, FELIBERTO [place] [facility] ER LEFT ANKLE/FOOT PAIN [id number] 09/17/2015 12:36:00 09/17/2015 14:58:00 DIS Emergency SOURAV ROSARIO, ALVA Casanova [facility] ER LIGHTHEADED/NAUSEA [id number] 09/15/2015 06:06:00 09/16/2015 15:22:00 DIS Outpatient TEDDY PHILIP MD [facility] SDC RECURRENT VENTRAL HERNIA [id number] 09/12/2015 08:16:00 09/12/2015 08:50:00 DIS Outpatient TEDDY PHILIP MD [facility] PREOP RECURRENT VENTRAL HERNIA [id number] 09/02/2015 08:53:00 09/02/2015 23:59:59 CLS Outpatient AKIKO NAVARRO [facility] LAB CAD, HYPERCHOLESTEROLEMIA, HYPERTENSION,SYNCOPE EMIR [id number] 08/29/2015 11:56:00 08/29/2015 23:59:59 CLS Outpatient LEAH WOLF MD [facility] RAD INFLTRATE [id number] 08/03/2015 15:48:00 2015 00:01:00 DIS Outpatient LEAH WOLF MD [facility] LAB COMADIN THERAPY [id number] 08/10/2015 09:19:00 08/16/2015 18:05:00 DIS Inpatient LEAH WOLF MD Via [address] ASTHMA,EXACERBATION, HYPOXEMIA [id number] 06/20/2015 16:01:00 06/23/2015 13:24:00 DIS Inpatient LEAH WOLF MD Via [address] ASTHMA EXASPERATION [id number] 06/08/2015 14:12:00 06/08/2015 15:48:00 DIS Emergency KAMRAN LINDQUIST APRN [facility] ER COUGH/SOA [id number] 05/24/2015 13:35:00 05/24/2015 23:59:59 CLS Outpatient LEAH WOLF MD [facility] RAD LEFT UPPER BREAST TENDERNESS [id number] 05/03/2015 10:17:00 05/03/2015 23:59:59 CLS Outpatient LEAH WOLF MD [facility] RAD MEMORY LOSS [id number] 04/16/2015 12:35:00 04/16/2015 13:35:00 DIS Emergency FELIBERTO LEE MD [facility] ER ASTHMA ISSUES [id number] 03/07/2015 15:17:00 03/09/2015 11:50:00 DIS Inpatient LEAH WOLF MD Via [address] ASTHMA HYPOXIA [id number] 02/01/2015 08:54:00 02/07/2015 00:01:00 DIS Outpatient LEAH WOLF MD [facility] LAB COMADIN THERAPY [id number] 02/05/2015 14:23:00 02/05/2015 16:48:00 DIS Emergency SALOMÓN ELY DO [facility] ER COPD/ASTHMA ISSUES [id number] 12/06/2014 14:56:00 12/06/2014 23:59:59 CLS Outpatient LEAH WOLF MD [facility] RAD SCREENING [id number] 11/09/2014 17:16:00 11/09/2014 23:59:59 CLS Outpatient LEAH WOLF MD [facility] LAB ABD PAIN [id number] 10/06/2014 09:35:00 11/01/2014 00:01:00 DIS Outpatient LEAH WOLF MD [facility] LAB COMADIN THERAPY [id number] 10/10/2014 13:14:00 10/10/2014 14:45:00 DIS Emergency KAMRAN LINDQUIST APRN [facility] ER SOA [id number] 09/26/2014 20:50:00 09/28/2014 19:36:00 DIS Inpatient TEDDY PHILIP MD [facility] SURGICAL RIGHT GLUTEAL HEMATOMA [id number] 09/23/2014 08:05:00 09/23/2014 11:10:00 DIS Emergency SHELL FOX MD [facility] ER FELL OFF PORCH HURT ARM [id number] 09/09/2014 22:20:00 09/14/2014 17:20:00 DIS Inpatient LEAH WOLF MD [facility] 4TH AECOPD [id number] 09/08/2014 10:04:00 09/08/2014 16:50:00 DIS Outpatient TEDDY PHILIP MD Via [facility] ABD PAIN,HX OF POLYPS [id number] 09/06/2014 10:52:00 09/06/2014 23:59:59 CLS Outpatient TEDDY PHILIP MD [facility] PREOP ABD PAIN HX OF POLYS [id number] 06/07/2014 17:18:00 08/13/2014 10:37:00 DIS Outpatient LEAH WOLF MD [facility] LAB COUMADIN,ANTICOAG THERAPY , DVT [id number] 07/29/2014 10:22:00 08/13/2014 10:36:00 DIS Outpatient LEAH WOLF MD [facility] LAB ACUTE VENOUS EMBOLISM AND THROMBOSIS [id number] 06/16/2014 15:00:00 06/16/2014 16:13:00 DIS Emergency KAMRAN LINDQUIST APRN [facility] ER COUGH SOA/WHEEZING [id number] 05/18/2014 15:38:00 05/24/2014 00:01:00 DIS Outpatient LEAH WOLF MD [facility] LAB COUMADIN,ANTICOAG THERAPY , DVT [id number] 04/30/2014 00:35:00 04/30/2014 23:59:59 CLS Preadmit LEAH WOLF MD [facility] SURG RCR CELLULITIS [id number] 02/01/2014 20:20:00 04/29/2014 00:01:00 DIS Outpatient LEAH WOLF MD [facility] SURG RCR CELLULITIS [id number] 04/26/2014 08:29:00 04/26/2014 12:01:00 DIS Emergency SOURAV ROSARIO, ALVA Casanova [facility] ER EARACHE/JAW PAIN [id number] 04/14/2014 08:03:00 04/14/2014 23:59:59 CLS Outpatient AKIKO NAVARRO [facility] LAB HYPERLIPIDEMIA [id number] 03/18/2014 10:53:00 03/18/2014 13:17:00 DIS Emergency KAMRAN LINDQUIST STEM MOUNTER [facility] ER COUGH/SOA [id number] 03/15/2014 11:15:00 03/17/2014 12:07:00 DIS Outpatient LEAH WOLF MD [facility] REHAB SCIATICA [id number] 03/10/2014 08:41:00 03/10/2014 10:02:00 DIS Emergency SOURAV ROSARIO, ALVA Casanova [facility] ER COUGH/CONGESTION/ ASTHMA [id number] 01/24/2014 16:29:00 01/29/2014 10:30:00 DIS Inpatient LEAH WOLF MD [facility] SURGICAL CELLULITIS LLE; INCREASED PT/INR [id number] 01/04/2014 08:54:00 01/04/2014 12:11:00 DIS Emergency STEPHANIE ECKERT DO [facility] ER LEFT LEG DRAINAGE [id number] 12/31/2013 07:54:00 12/31/2013 09:31:00 DIS Emergency ANDRES HOWE MD [facility] ER LEFT LEG PAIN [id number] 12/19/2013 20:02:00 12/19/2013 20:33:00 DIS Emergency KAMRAN LINDQUIST APRN [facility] ER ANKLE INJ [id number] 12/16/2013 18:38:00 12/17/2013 11:09:00 DIS Inpatient LEAH WOLF MD [facility] ICU ACUTE RESPIRATORY FAILURE DISTRESS; POSSIBLE LEA [id number] 10/28/2013 10:37:00 12/03/2013 00:01:00 DIS Outpatient LEAH WOLF MD [facility] LAB COUMADIN,ANTICOAG THERAPY , DVT [id number] 11/24/2013 15:01:00 11/24/2013 23:59:59 CLS Outpatient LEAH WOLF MD [facility] RAD SCREENING [id number] 11/18/2013 09:59:00 11/18/2013 23:59:59 CLS Outpatient LEAH WOLF MD [facility] RAD KNEE PAIN [id number] 11/03/2013 09:30:00 11/03/2013 09:44:00 DIS Outpatient LEAH WOLF MD [facility] WOUNDCARE LEFT LEG OPEN WOUNDS [id number] 10/28/2013 10:17:00 10/28/2013 23:59:59 CLS Outpatient ADAM BARON DO [facility] LAB ANEMIA [id number] 10/11/2013 10:43:00 10/11/2013 13:05:00 DIS Emergency DEE DEE MALHOTRA [facility] ER HEARTBURN LEFT SIDE ABDOMINAL PAIN [id number] 10/10/2013 10:18:00 10/10/2013 13:15:00 DIS Emergency DEE DEE MALHOTRA [facility] ER SWOLLEN LEGS L WORSE [id number] 10/07/2013 12:14:00 10/07/2013 23:59:59 CLS Outpatient AKIKO NAVARRO [facility] CARD CP,SYNCOP,PE ,HTN,HEART PALPITATIONS [id number] 10/02/2013 10:36:00 10/02/2013 23:59:59 CLS Outpatient AKIKO NAVARRO [facility] CARD CP,SYNCOP,PE ,HTN,HEART PALPITATIONS [id number] 09/04/2013 12:57:00 09/04/2013 23:59:59 CLS Outpatient LEAH WOLF MD [facility] LAB EPIGASTRIC PAIN [id number] 09/04/2013 12:52:00 09/04/2013 23:59:59 CLS Outpatient TERRI KIDD DO [facility] RT ASTHMA,COPD [id number] 08/18/2013 20:48:00 08/18/2013 22:12:00 DIS Emergency ALVA BENJAMIN MD [facility] ER SOA [id number] 07/22/2013 12:32:00 07/22/2013 14:19:00 DIS Emergency KAMRAN LINDQUIST APRN [facility] ER LEGS SWELLING [id number] 07/01/2013 20:00:00 07/02/2013 18:10:00 DIS Inpatient LEAH WOLF MD [facility] 4TH ACUTE EXACERBATION OF COPD, HYPOXIA [id number] 05/19/2013 11:30:00 06/21/2013 00:01:00 DIS Outpatient LEAH WOLF MD [facility] LAB ANTICOAG THERAPY, DVT [id number] 05/27/2013 13:32:00 05/27/2013 23:59:59 CLS Outpatient LEAH WOLF MD [facility] RAD FLU [id number] 05/17/2013 10:00:00 05/17/2013 14:30:00 DIS Emergency KAMRAN LINDQUIST STEM MOUNTER [facility] ER CONGESTION SOA [id number] 04/20/2013 14:56:00 04/20/2013 17:58:00 DIS Emergency DEE DEE MALHOTRA [facility] ER BLOOD IN STOOL [id number] 04/01/2013 13:42:00 04/14/2013 10:31:00 DIS Outpatient LEAH WOLF MD [facility] REHAB MID AND LOW BACK PAIN [id number] 04/08/2013 06:05:00 04/08/2013 14:33:00 DIS Outpatient HOWARD HUGHES MD [facility] SDC LEFT CUBITAL TUNNEL SYNDROME [id number] 04/06/2013 13:23:00 04/06/2013 23:59:59 CLS Outpatient LEAH WOLF MD [facility] RT COPD [id number] 04/01/2013 12:37:00 04/01/2013 23:59:59 CLS Outpatient HOWARD HUGHES MD [facility] PREOP LEFT CUBITAL TUNNEL SYNDROME [id number] 01/08/2013 09:51:00 03/01/2013 00:01:00 DIS Outpatient LEAH WOLF MD [facility] LAB ANTICOAG THERAPY, DVT [id number] 12/22/2012 14:30:00 02/19/2013 00:01:00 DIS Outpatient IZABELA MCCLAIN [facility] WOUNDCARE DELAYED WOUND HEALING L L/E [id number] 02/13/2013 11:45:00 02/13/2013 23:59:59 CLS Outpatient LEAH WOLF MD [facility] RAD LOW BACK PAIN, [id number] 02/09/2013 15:57:00 02/09/2013 23:59:59 CLS Outpatient KIRAN GREER FIRE PATROLLER [facility] ONC OV [id number] 02/09/2013 15:36:00 02/09/2013 23:59:59 CLS Preadmit KIRAN GREER FIRE PATROLLER [facility] ONC OV [id number] 02/09/2013 12:04:00 02/09/2013 23:59:59 CLS Outpatient LEAH WOLF MD [facility] RAD BACK PAIN X3 WKS [id number] 10/01/2012 08:09:00 12/28/2012 00:01:00 DIS Outpatient SHEILA FARRIS MD [facility] SDC ANXIETY ON LEG SWELLING [id number] 12/01/2012 08:31:00 12/01/2012 23:59:59 CLS Outpatient LEAH WOLF MD [facility] RAD SCREENING [id number] 10/27/2012 12:53:00 11/20/2012 00:01:00 DIS Outpatient LEAH WOLF MD [facility] LAB DVT,CUMADN THERAPY [id number] 11/18/2012 12:02:00 11/18/2012 23:59:59 CLS Outpatient LEAH WOLF MD [facility] RT SOB [id number] 10/24/2012 19:25:00 10/24/2012 20:47:00 DIS Emergency CARY ROSARIO, RAJESH Bass [facility] ER LEFT LEG PAIN [id number] 09/29/2012 16:04:00 09/29/2012 23:59:59 CLS Outpatient [id number] 09/28/2012 23:11:00 09/29/2012 13:55:00 DIS Inpatient LEAH WLOF MD [facility] 4TH POST OP WOUND INFECTION [id number] 09/27/2012 08:44:00 09/27/2012 09:26:00 DIS Emergency STEPHANIE ECKERT DO [facility] ER L LEG SWELLING [id number] 09/24/2012 09:21:00 09/24/2012 18:50:00 DIS Outpatient SHEILA FARRIS MD [facility] SDC VERICOSE VEINS [id number] 09/22/2012 07:58:00 09/22/2012 23:59:59 CLS Outpatient SHEILA FARRIS MD [facility] RAD VARICOSE VEINS [id number] 05/18/2017 01:18:00 Document Registration [id number] 09/09/2014 22:44:00 Document Registration [id number] 09/09/2014 22:40:00 Document Registration [id number] 09/09/2014 22:40:00 Document Registration [id number] 09/09/2014 22:40:00 Document Registration [id number] 09/09/2014 22:40:00 Document Registration [id number] 09/09/2014 22:40:00 Document Registration [id number] 09/09/2014 22:40:00 Document Registration [id number] 09/09/2014 22:40:00 Document Registration [id number] 09/09/2014 22:40:00 Document Registration [id number] 09/09/2014 22:40:00 Document Registration [id number] 09/09/2014 22:40:00 Document Registration [id number] 07/19/2014 15:45:00 Document Registration [id number] 02/20/2013 13:15:00 Document Registration [id number] 12/29/2012 00:00:00 Document Registration [id number] 11/21/2012 00:00:00 Document Registration [id number] 08/15/2012 11:11:00 Document Registration [id number] 08/07/2012 12:12:00 Document Registration [id number] 07/30/2012 04:55:00 Document Registration [id number] 07/21/2012 09:05:00 Document Registration [id number] 07/13/2012 17:06:00 Document Registration [id number] 06/16/2012 09:44:00 Document Registration [id number] 06/09/2012 14:56:00 Document Registration [id number] 04/30/2012 11:41:00 Document Registration [id number] 04/30/2012 09:34:00 Document Registration [id number] 04/08/2012 08:40:00 Document Registration [id number] 03/31/2012 09:48:00 Document Registration [id number] 03/18/2012 14:52:00 Document Registration [id number] 01/29/2012 10:51:00 Document Registration [id number] 01/16/2012 15:45:00 Document Registration [id number] 12/20/2011 08:56:00 Document Registration [id number] 12/20/2011 08:39:00 Document Registration [id number] 12/12/2011 20:28:00 Document Registration [id number] 12/08/2011 14:27:00 Document Registration [id number] 11/29/2011 10:46:00 Document Registration [id number] 10/31/2011 08:45:00 Document Registration [id number] 10/29/2011 13:18:00 Document Registration [id number] 10/15/2011 07:50:00 Document Registration [id number] 10/10/2011 07:58:00 Document Registration [id number] 09/13/2011 11:13:00 Document Registration [id number] 09/12/2011 00:00:00 Document Registration [id number] 08/10/2011 09:17:00 Document Registration [id number] 07/30/2011 16:25:00 Document Registration [id number] 06/26/2011 15:47:00 Document Registration [id number] 06/21/2011 16:17:00 Document Registration [id number] 06/18/2011 14:25:00 Document Registration [id number] 06/13/2011 11:53:00 Document Registration [id number] 06/10/2011 18:25:00 Document Registration [id number] 06/04/2011 15:48:00 Document Registration [id number] 04/30/2011 14:32:00 Document Registration [id number] 04/12/2011 13:02:00 Document Registration [id number] 04/11/2011 16:12:00 Document Registration [id number] 04/02/2011 20:11:00 Document Registration [id number] 02/21/2011 22:13:00 Document Registration [id number] 02/01/2011 11:33:00 Document Registration [id number] 01/19/2011 10:17:00 Document Registration [id number] 12/27/2010 14:10:00 Document Registration [id number] 12/13/2010 07:28:00 Document Registration [id number] 11/24/2010 11:37:00 Document Registration [id number] 11/07/2010 14:19:00 Document Registration [id number] 10/25/2010 14:53:00 Document Registration [id number] 10/23/2010 10:07:00 Document Registration [id number] 10/23/2010 09:54:00 Document Registration [id number] 10/13/2010 21:05:00 Document Registration [id number] 10/10/2010 15:28:00 Document Registration [id number] 09/05/2010 13:00:00 Document Registration [id number] 08/06/2010 13:10:00 Document Registration [id number] 07/24/2010 08:55:00 Document Registration [id number] 07/24/2010 08:53:00 Document Registration [id number] 07/24/2010 08:49:00 Document Registration [id number] 07/17/2010 09:01:00 Document Registration [id number] 07/05/2010 12:25:00 Document Registration [id number] 05/26/2010 16:34:00 Document Registration [id number] 05/13/2010 14:04:00 Document Registration [id number] 04/18/2010 12:47:00 Document Registration [id number] 04/10/2010 14:19:00 Document Registration [id number] 03/24/2010 11:42:00 Document Registration [id number] 03/07/2010 15:46:00 Document Registration [id number] 02/21/2010 09:30:00 Document Registration [id number] 02/08/2010 10:22:00 Document Registration [id number] 01/20/2010 13:42:00 Document Registration [id number] 01/05/2010 14:23:00 Document Registration [id number] 12/30/2009 16:00:00 Document Registration [id number] 12/29/2009 10:54:00 Document Registration [id number] 12/13/2009 05:58:00 Document Registration [id number] 12/06/2009 08:53:00 Document Registration [id number] 11/17/2009 10:51:00 Document Registration [id number] 11/17/2009 10:16:00 Document Registration [id number] 11/15/2009 14:09:00 Document Registration [id number] 11/10/2009 11:09:00 Document Registration [id number] 11/08/2009 08:36:00 Document Registration [id number] 11/03/2009 13:33:00 Document Registration [id number] 11/02/2009 12:29:00 Document Registration [id number] 10/19/2009 11:30:00 Document Registration [id number] 10/05/2009 09:25:00 Document Registration [id number] 08/18/2009 08:03:00 Document Registration [id number] 08/08/2009 15:02:00 Document Registration [id number] 08/04/2009 14:27:00 Document Registration [id number] 08/04/2009 13:31:00 Document Registration [id number] 08/01/2009 12:00:00 Document Registration [id number] 07/28/2009 15:24:00 Document Registration [id number] 07/25/2009 16:09:00 Document Registration [id number] 07/22/2009 12:13:00 Document Registration [id number] 07/21/2009 14:00:00 Document Registration [id number] 07/18/2009 14:15:00 Document Registration [id number] 07/14/2009 16:00:00 Document Registration [id number] 07/11/2009 16:02:00 Document Registration [id number] 04/28/2009 12:43:00 Document Registration [id number] 03/31/2009 12:55:00 Document Registration [id number] 05/11/2007 13:26:00 Document Registration [id number] 08/26/2006 20:00:00 Document Registration
[2017-05-18 02:46] LABS: ABG BASE EXCESS 0.9 MMOL/L (-2.5-2.5); ABG OXYGEN SATURATION 100 % (94-100); ABG PCO2 62 MMHG (35-45); ABG PO2 253 MMHG (79-93); ABG TCO2 29.2 MMOL/L (21.0-31.0)
[2017-05-18 02:49] LABS: ALLENS TEST YES-POS; INSPIRED O2 BIPAP; PATIENT TEMP 97.6; VENTILATOR YES
[2017-05-18 02:51] LABS: ABG PH 7.26 (7.37-7.43)
--- OUTSIDE RECORDS SUMMARY | 2017-05-18 03:47 | XMS REPORT | Continuity of Care Document ---
Author Author [facility] Organization [facility] Address Unknown Phone Unavailable Allergies Active Description Code Type Severity Reaction Onset Reported/Identified Relationship to Patient Clinical Status Yes ALOE VERA ALOE VERA Unknown N/A 12/23/2005 Yes aloe vera [id number] Drug Allergy Mild N/A 07/30/2011 Yes ketorolac [id number] Drug Allergy Unknown N/A 07/30/2011 Yes latex [id number] Drug Allergy Unknown N/A 10/07/2013 Yes SILK SUTURES SILK SUTURES Unknown BODY REJECTS NORTH 10/07/2013 Yes tetanus diphtheria toxoids [id number] Drug Allergy Unknown N/A 2013 Yes tetanus and diphtheria toxoids [id number] Drug Allergy Unknown N/A 2013 Yes aspirin [id number] Drug Allergy Severe ANAPHYLAXIS 04/18/2017 Yes ibuprofen [id number] Drug Allergy Severe ANAPHYLAXIS 04/18/2017 Yes ketorolac [id number] Drug Allergy Severe ANAPHYLAXIS 04/18/2017 Yes tetanus and diphtheria toxoids [id number] Drug Allergy Severe ANAPHYLAXIS Yes Aloe [id number] Drug Allergy Mild RASH 04/18/2017 Yes latex [id number] Drug Allergy Mild RASH 04/18/2017 Yes iodine [id number] Drug Allergy Unknown N/A 04/18/2017 Medications There [...] VEINS LOWER EXTREM W OTHER COMP 09/27/2012 STEPHANEI ECKERT DO Ot 729.81 SWELLING OF LIMB [...] MD, Ot V58.69 OTH MED,LT,CURRENT USE 01/04/2014 BABARSTEPHANIE Hurtado DO Ot 112.0 THRUSH 01/04/2014 BABAR [...] SHEILA Nicolas Ot 454.9 09/09/2014 KIRAN GREER MILITARY SCIENCE TEACHER Ot 286.9 09/09/2014 KIRAN GREER MILITARY SCIENCE TEACHER Ot 496 09/09/2014 KIRAN GREER MILITARY SCIENCE TEACHER Ot 564.1 09/09/2014 KIRAN GREER MILITARY SCIENCE TEACHER Ot 585.3 09/09/2014 KIRAN GREER MILITARY SCIENCE TEACHER Ot V12.51 09/09/2014 KIRAN GREER MILITARY SCIENCE TEACHER Ot V12.55 09/09/2014 KIRAN GREER MILITARY SCIENCE TEACHER Ot V58.61 09/09/2014 KIRAN GREER MILITARY SCIENCE TEACHER Ot V58.69 09/09/2014 LUCIANO ROSARIO, LEAH Jacome [...] BERNABETERRI THAPA DO Ot 786.09 09/09/2014 LUCIANO ROSARIO, LEAH Jacome Ot 789.06 09/09/2014 ALDOBizXchangeTORI PA, AKIKO K Ot 401.9 09/09/2014 CARLSON-TORI PA, AKIKO K Ot 414.00 09/09/2014 ALDOBizXchangeTORI PA, AKIKO K Ot 780.2 09/09/2014 ALDO-TORI PA, AKIKO K Ot 786.50 09/09/2014 EULALIA PA, AKIKO K Ot V12.55 09/09/2014 CARLSONBizXchangeTORI PA, AKIKO K Ot 401.9 09/09/2014 CARLSONBizXchangeTORI PA, AKIKO K Ot 414.00 09/09/2014 CARLSONBizXchangeTORI PA, AKIKO K Ot 780.2 09/09/2014 CARLSON-TORI PA, AKIKO K Ot 785.1 09/09/2014 CARLSON-TORI PA, AKIKO K Ot 786.50 09/09/2014 CARLSON-TORI PA, AKIKO K Ot V12.51 09/09/2014 CARLSON-TORI PA, AKIKO K Ot V12.55 09/09/2014 ADAM BARON DO Ot 285.9 09/09/2014 LUCIANO ROSARIO, LEAH Jacome Ot V76.12 09/09/2014 LUCIANO ROSARIO, LEAH Jacome Ot 719.46 09/09/2014 EULALIA PA, AKIKO K [...] MON 02/07/2015 LEAH WOLF MD Ot Z79.01 FDC (CURRENT) USE OF ANTICOAGULANT 03/09/2015 LEAH WOLF [...] SHEILA Nicolas Ot 454.9 05/24/2015 KIRAN GREER MILITARY SCIENCE TEACHER Ot 286.9 05/24/2015 KIRAN GREER MILITARY SCIENCE TEACHER Ot 496 05/24/2015 KIRAN GREER S MILITARY SCIENCE TEACHER Ot 564.1 05/24/2015 GREERKIRAN Clayton S MILITARY SCIENCE TEACHER Ot 585.3 05/24/2015 GREERKIRAN Clayton S MILITARY SCIENCE TEACHER Ot V12.51 05/24/2015 GREERKIRAN Clayton S MILITARY SCIENCE TEACHER Ot V12.55 05/24/2015 KIRAN GREER S MILITARY SCIENCE TEACHER Ot V58.61 05/24/2015 KIRAN GREER MILITARY SCIENCE TEACHER Ot V58.69 05/24/2015 LUCIANO ROSARIO, LEAH Jacome [...] Jacome Ot 496 05/24/2015 LUCIANO ROSARIO, LEAH Jacome Ot 486 05/24/2015 TERRI KIDD DO Ot [...] CARLSON-TORI PA, AKIKO K Ot V12.55 05/24/2015 CRALSON-TORI PA, AKIKO K Ot 401.9 05/24/2015 CARLSON-TORI [...] LEAH Jacome Ot N64.4 06/08/2015 KAMRAN LINDQUIST DENIAL RESOLUTION SPECIALIST Ot F17.211 NICOTINE DEPENDENCE, CIGARETTES, IN [place] 06/08/2015 KAMRAN LINDQUIST DENIAL RESOLUTION SPECIALIST Ot J44.1 CHRONIC OBSTRUCTIVE PULMONARY DISEASE W 06/17/2015 KAMRAN LINDQUIST DENIAL RESOLUTION SPECIALIST Ot F17.211 06/17/2015 KAMRAN LINDQUIST DENIAL RESOLUTION SPECIALIST Ot J44.1 06/23/2015 LEAH WOLF MD, Ot [...] MON 2015 LEAH WOLF MD, Ot Z79.1 FDC (CURRENT) USE OF NON-STEROIDAL 08/28/2015 LEAH WOLF MD, Ot Z51.81 ENCOUNTER FOR THERAPEUTIC DRUG LEVEL MON 08/28/2015 LEAH WOLF MD, Ot Z79.1 HOME STAGER (CURRENT) USE OF NON-STEROIDAL 08/30/2015 LEAH WOLF MD Ot R91.8 OTHER NONSPECIFIC ABNORMAL FINDING OF SLIM 09/05/2015 AKIKO NAVARRO K Ot E78.0 PURE HYPERCHOLESTEROLEMIA 09/05/2015 AKIKO NAVARRO K Ot I10 ESSENTIAL (PRIMARY) HYPERTENSION 09/05/2015 AKIKO NAVARRO Ot I25.10 ATHSCL HEART DISEASE OF [place] CORONARY 09/05/2015 ALTON NAVARROTH K Ot R55 SYNCOPE AND COLLAPSE 09/08/2015 AKIKO NAVARRO K Ot E78.0 PURE HYPERCHOLESTEROLEMIA 09/08/2015 EULALIA BREWSTER AKIKO K Ot I10 ESSENTIAL (PRIMARY) HYPERTENSION 09/08/2015 ALTON NAVARROTH K Ot I25.10 ATHSCL HEART DISEASE OF [place] CORONARY 09/08/2015 AKIKO NAVARRO K Ot R55 [...] NAVARRO Ot I25.10 ATHSCL HEART DISEASE OF [place] CORONARY 09/14/2015 AKIKO NAVARRO Ot R55 SYNCOPE AND COLLAPSE 09/16/2015 TEDDY PHILIP MD, Ot 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 09/16/2015 TEDDY PHILIP MD, Ot K43.2 INCISIONAL HERNIA WITHOUT OBSTRUCTION OR 09/16/2015 TEDDY PHILIP MD, Ot T85.79XA INFECT/INFLM REACTION DUE TO OTH INT PRO 09/16/2015 TEDDY PHILIP MD, Ot Z79.01 HOME STAGER (CURRENT) USE OF ANTICOAGULANT 09/17/2015 ALVA BENJAMIN [...] MON 09/19/2015 LEAH WOLF MD Ot Z79.1 FDC (CURRENT) USE OF NON-STEROIDAL 09/19/2015 ALVA BENJAMIN [...] PRO 09/28/2015 TEDDY PHILIP MD Ot Z79.01 FDC (CURRENT) USE OF ANTICOAGULANT 10/12/2015 Ot 401.9 10/12/2015 Ot 493.92 10/12/2015 Ot 786.05 10/12/2015 Ot 786.59 10/12/2015 Ot V58.69 10/13/2015 KAMRAN LINDQUIST APRN Ot J44.1 CHRONIC OBSTRUCTIVE PULMONARY DISEASE W 10/13/2015 KAMRAN LINDQUIST APRN Ot 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, PART UNSP, W/O PERF O 10/13/2015 KAMRAN LINDQUIST APRN Ot N20.0 CALCULUS OF KIDNEY 10/14/2015 AKMRAN LINDQUIST APRN Ot J44.1 CHRONIC OBSTRUCTIVE PULMONARY [...] MON 11/27/2015 LEAH WOLF MD, Ot Z79.01 HOME STAGER (CURRENT) USE OF ANTICOAGULANT 11/27/2015 LEAH WOLF MD, Ot Z79.1 FDC (CURRENT) USE OF NON-STEROIDAL 11/28/2015 LEAH WOLF MD, Ot Z51.81 ENCOUNTER FOR THERAPEUTIC DRUG LEVEL MON 11/28/2015 LEAH WOLF MD, Ot Z79.01 FDC (CURRENT) USE OF ANTICOAGULANT 11/30/2015 WARNER ECKERT [...] CHRONIC OBSTRUCTIVE PULMONARY DISEASE W 01/04/2016 STEPHANIE ECKETR DO Ot R05 COUGH 01/24/2016 KAMRAN LINDQUIST APRN Ot I10 ESSENTIAL (PRIMARY) HYPERTENSION 01/24/2016 KAMRAN LINDQUIST APRN Ot J44.1 CHRONIC OBSTRUCTIVE PULMONARY DISEASE W 01/24/2016 KAMRAN LINDQUIST APRN Ot R06.2 WHEEZING 01/24/2016 KAMRAN LINDQUIST APRN Ot Z79.01 HOME STAGER (CURRENT) USE OF ANTICOAGULANT 01/24/2016 KAMRAN LINDQUIST APRN Ot Z79.899 OTHER FDC (CURRENT) DRUG THERAPY 01/24/2016 KAMRAN LINDQUIST APRN Ot Z86.718 PERSONAL HISTORY OF OTHER VENOUS THROMBO 01/24/2016 KAMRAN LINDQUIST APRN Ot Z87.891 PERSONAL HISTORY OF NICOTINE DEPENDENCE 01/26/2016 KAMRAN LINDQUIST APRN Ot I10 ESSENTIAL (PRIMARY) HYPERTENSION 01/26/2016 KAMRAN LINDQUIST APRN Ot J44.1 CHRONIC OBSTRUCTIVE PULMONARY DISEASE W 01/26/2016 KAMRAN LINDQUIST APRN Ot R06.2 WHEEZING 01/26/2016 KAMRAN LINDQUIST APRN Ot Z79.01 HOME STAGER (CURRENT) USE OF ANTICOAGULANT 01/26/2016 KAMRAN LINDQUIST APRN Ot Z79.899 OTHER FDC (CURRENT) DRUG THERAPY 01/26/2016 KAMRAN LINDQUIST APRN Ot Z86.718 PERSONAL HISTORY OF OTHER VENOUS THROMBO 01/26/2016 KAMRAN LINDQUIST APRN Ot Z87.891 PERSONAL HISTORY OF NICOTINE DEPENDENCE 01/31/2016 LEAH WOLF MD Ot Z51.81 ENCOUNTER FOR THERAPEUTIC DRUG LEVEL MON 01/31/2016 LEAH WOLF MD, Ot Z79.01 FDC (CURRENT) USE OF ANTICOAGULANT 01/31/2016 LEAH WOLF [...] 454.9 ASYMPTOMATIC VARICOSE VEINS 02/09/2016 KIRAN GREER MILITARY SCIENCE TEACHER Ot 286.9 COAGULAT DEFECT NEC/NOS 02/09/2016 KIRAN GREER MILITARY SCIENCE TEACHER Ot 496 CHR AIRWAY OBSTRUCT NEC 02/09/2016 KIRAN GREER MILITARY SCIENCE TEACHER Ot 564.1 IRRITABLE BOWEL SYNDROME 02/09/2016 KIRAN GREER MILITARY SCIENCE TEACHER Ot 585.3 CHRONIC KIDNEY DISEASE, STAGE III (MODER 02/09/2016 KIRAN GREER MILITARY SCIENCE TEACHER Ot V12.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 EMBOLISM 02/09/2016 KIRAN GREER MILITARY SCIENCE TEACHER Ot V12.55 PERSONAL HISTORY OF PULMONARY EMBOLISM 02/09/2016 KIRAN GREER MILITARY SCIENCE TEACHER Ot V58.61 ANTICOAGULANTS,LT,CURRENT USE 02/09/2016 KIRAN GREER MILITARY SCIENCE TEACHER Ot V58.69 OTH MED,LT,CURRENT USE 02/09/2016 LUCIANO [...] NAVARRO Ot I25.10 ATHSCL HEART DISEASE OF [place] CORONARY 02/09/2016 AKIKO NAVARRO Ot R55 SYNCOPE AND COLLAPSE 02/09/2016 LEAH WOLF MD Ot Z51.81 ENCOUNTER FOR THERAPEUTIC DRUG LEVEL MON 02/09/2016 LEAH WOLF MD Ot Z79.01 FDC (CURRENT) USE OF ANTICOAGULANT 02/09/2016 LEAH WOLF MD Ot Z86.718 PERSONAL HISTORY OF OTHER VENOUS THROMBO 02/09/2016 LEAH WOLF MD, Ot Z12.31 ENCNTR SCREEN MAMMOGRAM FOR MALIGNANT NE 03/02/2016 ALVA BENJAMIN MD Ot I10 ESSENTIAL (PRIMARY) HYPERTENSION 03/02/2016 ALVA BENJAMIN MD Ot J44.1 CHRONIC OBSTRUCTIVE PULMONARY DISEASE W 03/02/2016 ALVA BENJAMIN MD Ot R06.02 SHORTNESS OF BREATH 03/02/2016 ALVA BENJAMIN MD Ot Z79.899 OTHER HOME STAGER (CURRENT) DRUG THERAPY 03/02/2016 ALVA BENJAMIN MD Ot Z86.711 PERSONAL HISTORY OF PULMONARY EMBOLISM 03/02/2016 ALVA BENJAMIN MD Ot Z87.891 PERSONAL HISTORY OF NICOTINE DEPENDENCE 03/05/2016 ALVA BENJAMIN MD Ot I10 ESSENTIAL (PRIMARY) HYPERTENSION 03/05/2016 ALVA BENJAMIN MD, Ot J44.1 CHRONIC OBSTRUCTIVE PULMONARY DISEASE W 03/05/2016 ALVA BENJAMIN MD Ot R06.02 SHORTNESS OF BREATH 03/05/2016 ALVA BENJAMIN MD Ot Z79.899 OTHER HOME STAGER (CURRENT) DRUG THERAPY 03/05/2016 ALVA BENJAMIN MD [...] ASYMPTOMATIC VARICOSE VEINS 03/05/2016 KIRAN GREER S MILITARY SCIENCE TEACHER Ot 286.9 COAGULAT DEFECT NEC/NOS 03/05/2016 KIRAN GREER MILITARY SCIENCE TEACHER Ot 496 CHR AIRWAY OBSTRUCT NEC 03/05/2016 KIRAN GREER S MILITARY SCIENCE TEACHER Ot 564.1 IRRITABLE BOWEL SYNDROME 03/05/2016 KIRAN GREER S MILITARY SCIENCE TEACHER Ot 585.3 CHRONIC KIDNEY DISEASE, STAGE III (MODER 03/05/2016 KIRAN GREER MILITARY SCIENCE TEACHER Ot V12.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 EMBOLISM 03/05/2016 KIRAN GREER MILITARY SCIENCE TEACHER Ot V12.55 PERSONAL HISTORY OF PULMONARY EMBOLISM 03/05/2016 KIRAN GREER MILITARY SCIENCE TEACHER Ot V58.61 ANTICOAGULANTS,LT,CURRENT USE 03/05/2016 KIRAN GREER S MILITARY SCIENCE TEACHER Ot V58.69 OT MED,LT,CURRENT USE 03/05/2016 LUCIANO [...] NAVARRO Ot I25.10 ATHSCL HEART DISEASE OF [place] CORONARY 03/05/2016 AKKIO NAVARRO Ot R55 SYNCOPE AND COLLAPSE 03/05/2016 LEAH WOLF MD, Ot Z51.81 ENCOUNTER FOR THERAPEUTIC DRUG LEVEL MON 03/05/2016 LEAH WOLF MD, Ot Z79.01 FDC (CURRENT) USE OF ANTICOAGULANT 03/05/2016 LEAH WOLF MD, Ot Z86.718 PERSONAL HISTORY OF OTHER VENOUS THROMBO 03/05/2016 LEAH WOLF MD, Ot Z12.31 ENCNTR SCREEN MAMMOGRAM FOR MALIGNANT NE 03/20/2016 [place] MILITARY SCIENCE TEACHER Ot S86.391S INJ MUSC/TEND PERONEAL GRP AT LOW LEG LE 04/02/2016 LEAH WOLF MD, Ot Z51.81 ENCOUNTER FOR THERAPEUTIC DRUG LEVEL MON 04/02/2016 LEAH WOLF MD, Ot Z79.01 FDC (CURRENT) USE OF ANTICOAGULANT 04/02/2016 LEAH WOLF MD, Ot Z86.718 PERSONAL HISTORY OF OTHER VENOUS THROMBO 04/03/2016 LEAH WOLF MD, Ot Z51.81 ENCOUNTER FOR THERAPEUTIC DRUG LEVEL MON 04/03/2016 LEAH WOLF MD, Ot Z79.01 HOME STAGER (CURRENT) USE OF ANTICOAGULANT 04/03/2016 LEAH WOLF MD, Ot Z86.718 PERSONAL HISTORY OF OTHER VENOUS THROMBO 04/03/2016 LEAH WOLF MD, Ot Z51.81 ENCOUNTER FOR THERAPEUTIC DRUG LEVEL MON 04/03/2016 LEAH WOLF MD, Ot Z79.01 HOME STAGER (CURRENT) USE OF ANTICOAGULANT 04/03/2016 LEAH WOLF MD, Ot Z86.718 PERSONAL HISTORY OF OTHER VENOUS THROMBO 04/08/2016 LEAH WOLF MD, Ot Z51.81 ENCOUNTER FOR THERAPEUTIC DRUG LEVEL MON 04/08/2016 LEAH WOLF MD, Ot Z79.01 FDC (CURRENT) USE OF ANTICOAGULANT 04/08/2016 LEAH WOLF MD, Ot Z86.718 PERSONAL HISTORY OF OTHER VENOUS THROMBO 04/09/2016 [place] MILITARY SCIENCE TEACHER Ot S86.391S INJ MUSC/TEND PERONEAL GRP AT [...] MON 05/17/2016 LEAH WOLF MD, Ot Z79.01 FDC (CURRENT) USE OF ANTICOAGULANT 05/17/2016 LEAH WOLF MD, Ot Z86.718 PERSONAL HISTORY OF OTHER VENOUS THROMBO 05/22/2016 LEAH WOLF MD, Ot Z51.81 ENCOUNTER FOR THERAPEUTIC DRUG LEVEL MON 05/22/2016 LEAH WOLF MD, Ot Z79.01 HOME STAGER (CURRENT) USE OF ANTICOAGULANT 05/22/2016 LEAH WOLF MD, Ot Z86.718 PERSONAL HISTORY OF OTHER VENOUS THROMBO 05/30/2016 LEAH WOLF MD, Ot Z51.81 ENCOUNTER FOR THERAPEUTIC DRUG LEVEL MON 05/30/2016 LEAH WOLF MD, Ot Z79.01 HOME STAGER (CURRENT) USE OF ANTICOAGULANT 05/30/2016 LEAH WOLF MD, Ot Z86.718 PERSONAL HISTORY OF OTHER VENOUS THROMBO 06/04/2016 KAMRAN LINDQUIST APRN Ot I10 ESSENTIAL (PRIMARY) HYPERTENSION 06/04/2016 KAMRAN LINDQUIST APRN Ot J44.1 CHRONIC OBSTRUCTIVE PULMONARY DISEASE W 06/04/2016 KAMRAN LINDQUIST APRN Ot R05 COUGH 06/04/2016 KAMRAN LINDQUIST APRN Ot Z79.899 OTHER HOME STAGER (CURRENT) DRUG THERAPY 06/04/2016 KAMRAN LINDQUIST APRN Ot Z87.891 PERSONAL HISTORY OF NICOTINE DEPENDENCE 06/05/2016 KAMRAN LINDQUIST APRN Ot I10 ESSENTIAL (PRIMARY) HYPERTENSION 06/05/2016 KAMRAN LINDQUIST APRN Ot J44.1 CHRONIC OBSTRUCTIVE PULMONARY DISEASE W 06/05/2016 KAMRAN LINDQUIST DENIAL RESOLUTION SPECIALIST Ot R05 COUGH 06/05/2016 KAMRAN LINDQUIST APRN Ot Z79.899 OTHER HOME STAGER (CURRENT) DRUG THERAPY 06/05/2016 KAMRAN LINDQUIST APRN Ot Z87.891 PERSONAL HISTORY OF NICOTINE DEPENDENCE 06/06/2016 KAMRAN LINDQUIST APRN Ot I10 ESSENTIAL (PRIMARY) HYPERTENSION 06/06/2016 KAMRAN LINDQUIST APRN Ot J44.1 CHRONIC OBSTRUCTIVE PULMONARY DISEASE W 06/06/2016 KAMRAN LINDQUIST DENIAL RESOLUTION SPECIALIST Ot R05 COUGH 06/06/2016 KAMRAN LINDQUIST APRN Ot Z79.899 OTHER FDC (CURRENT) DRUG THERAPY 06/06/2016 KAMRAN LINDQUIST APRN [...] LEAH WOLF MD, Ot K57.90 DVRTCLOS OF [facility], PART [facility]NS, W/O PERF 06/08/2016 LEAH WOLF [...] 06/10/2016 KAMRAN LINDQUIST APRN Ot Z79.899 OTHER HOME STAGER (CURRENT) DRUG THERAPY 06/10/2016 KAMRAN LINDQUIST APRN [...] 07/06/2016 ALVA BENJAMIN MD Ot Z79.899 OTHER HOME STAGER (CURRENT) DRUG THERAPY 07/06/2016 ALVA BENJAMIN MD Ot Z86.718 PERSONAL HISTORY OF OTHER VENOUS THROMBO 07/06/2016 ALVA BENJAMIN MD Ot Z87.891 PERSONAL HISTORY OF NICOTINE DEPENDENCE 07/12/2016 CHARITY ROSARIO FACC, PAVAN FACP CCDS Ot 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 07/12/2016 PAVAN NASH MD, FACC FACP CCDS Ot I10 ESSENTIAL (PRIMARY) HYPERTENSION 07/12/2016 PAVAN NASH MD, FACC FACP CCDS Ot I25.10 ATHSCL HEART DISEASE OF [place] CORONARY 07/12/2016 PAVAN NASH MD, FACC FACP [...] CCDS Ot I25.10 ATHSCL HEART DISEASE OF [place] CORONARY 07/12/2016 PAVAN NASH MD, FACC FACP [...] 07/14/2016 ALVA BENJAMIN MD Ot Z79.899 OTHER FDC (CURRENT) DRUG THERAPY 07/14/2016 ALVA BENJAMIN MD Ot Z86.718 PERSONAL HISTORY OF OTHER VENOUS THROMBO 07/14/2016 ALVA BENJAMIN MD Ot Z87.891 PERSONAL HISTORY OF NICOTINE DEPENDENCE 07/17/2016 PAVAN NASH MD, FACC FACP CCDS Ot 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 07/17/2016 PAVAN NASH MD, FACC FACP CCDS Ot I10 ESSENTIAL (PRIMARY) HYPERTENSION 07/17/2016 PAVAN NASH MD, FACC FACP CCDS Ot I25.10 ATHSCL HEART DISEASE OF [place] CORONARY 07/17/2016 CHARITY ROSARIO FACC ALI FACP [...] CCDS Ot I25.10 ATHSCL HEART DISEASE OF [place] CORONARY 07/24/2016 CHARITY ROSARIO FACC ALI FACP [...] NODULE 07/25/2016 LEAH WOLF MD, Ot Z79.01 HOME STAGER (CURRENT) USE OF ANTICOAGULANT 07/25/2016 LEAH WOLF MD, Ot Z79.899 OTHER HOME STAGER (CURRENT) DRUG THERAPY 07/25/2016 LEAH WOLF MD, Ot Z87.891 PERSONAL HISTORY OF NICOTINE DEPENDENCE 08/03/2016 LEAH WOLF MD, Ot K62.5 HEMORRHAGE OF ANUS AND RECTUM 08/08/2016 CHARITY ROSARIO FACC, PAVAN RENOP CCDS Ot 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 08/08/2016 CHARITY ROSARIO FACC, PAVAN FACP CCDS Ot I10 ESSENTIAL (PRIMARY) HYPERTENSION 08/08/2016 CHARITY ROSARIO FACC, PAVAN FACP CCDS Ot I25.10 ATHSCL HEART DISEASE OF [place] CORONARY 08/08/2016 CHARITY ROSARIO FACC, ALI FACP [...] MON 08/09/2016 LEAH WOLF MD, Ot Z79.01 HOME STAGER (CURRENT) USE OF ANTICOAGULANT 08/09/2016 LEAH WOLF MD, Ot Z86.718 PERSONAL HISTORY OF OTHER VENOUS THROMBO 08/10/2016 CHARITY ROSARIO [facility], ALI FACP CCDS Ot 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 08/10/2016 CHARITY ROSARIO [facility], ALI FACP CCDS Ot I10 ESSENTIAL (PRIMARY) HYPERTENSION 08/10/2016 CHARITY ROSARIO [facility], ALI FACP CCDS Ot I25.10 ATHSCL HEART DISEASE OF [place] CORONARY 08/10/2016 CHARITY ROSARIO [facility], ALI FACP CCDS Ot I73.9 PERIPHERAL VASCULAR DISEASE, UNSPECIFIED 08/10/2016 CHARITY RENO, ALI FACP CCDS Ot J43.8 OTHER EMPHYSEMA 08/10/2016 CHARITY ROSARIO [facility], ALI FACP CCDS Ot M79.89 OTHER SPECIFIED SOFT TISSUE DISORDERS 08/10/2016 CHARITY ROSARIO [facility], ALI FACP CCDS Ot R06.02 SHORTNESS OF BREATH 08/10/2016 CHARITY ROSARIO [facility], ALI FACP CCDS Ot Z86.718 PERSONAL HISTORY OF OTHER VENOUS THROMBO 08/10/2016 LEAH WOLF MD Ot Z51.81 ENCOUNTER FOR THERAPEUTIC DRUG LEVEL MON 08/10/2016 LEAH WOLF MD Ot Z79.01 HOME STAGER (CURRENT) USE OF ANTICOAGULANT 08/10/2016 LEAH WOLF [...] AND RECTUM 2016 CHARITY RENOC, [facility] FACP CCDS Ot 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 2016 CHARITY ROSARIO [facility], ALI FACP CCDS Ot I10 ESSENTIAL (PRIMARY) HYPERTENSION 2016 CHARITY ROSARIO [facility], ALI FACP CCDS Ot I25.10 ATHSCL HEART DISEASE OF [place] CORONARY 2016 CHARITY ROSARIO [facility], ALI FACP CCDS Ot I73.9 PERIPHERAL VASCULAR DISEASE, UNSPECIFIED 2016 CHARITY ROSARIO [facility], ALI FACP CCDS Ot J43.8 OTHER EMPHYSEMA 2016 CHARITY ROSARIO [facility], ALI FACP CCDS Ot M79.89 OTHER SPECIFIED SOFT TISSUE DISORDERS 2016 CHARITY ROSARIO [facility], ALI FACP CCDS Ot R06.02 SHORTNESS OF BREATH 2016 CHARITY ROSARIO [facility], ALI FACP CCDS Ot Z86.718 PERSONAL HISTORY OF OTHER VENOUS THROMBO 09/06/2016 LEAH WOLF MD, Ot Z51.81 ENCOUNTER FOR THERAPEUTIC DRUG LEVEL MON 09/06/2016 LEAH WOLF MD, Ot Z79.01 HOME STAGER (CURRENT) USE OF ANTICOAGULANT 09/06/2016 LEAH WOLF MD, Ot Z86.718 PERSONAL HISTORY OF OTHER VENOUS THROMBO 09/06/2016 LEAH WOLF MD, Ot Z51.81 ENCOUNTER FOR THERAPEUTIC DRUG LEVEL MON 09/06/2016 LEAH WOLF MD, Ot Z79.01 HOME STAGER (CURRENT) USE OF ANTICOAGULANT 09/06/2016 LEAH WOLF MD, Ot Z86.718 PERSONAL HISTORY OF OTHER VENOUS THROMBO 09/17/2016 LEAH WOLF MD, Ot Z51.81 ENCOUNTER FOR THERAPEUTIC DRUG LEVEL MON 09/17/2016 LEAH WOLF MD, Ot Z79.01 FDC (CURRENT) USE OF ANTICOAGULANT 09/17/2016 LEAH WOLF MD, Ot Z86.718 PERSONAL HISTORY OF OTHER VENOUS THROMBO 10/01/2016 LEAH WOLF MD, Ot Z51.81 ENCOUNTER FOR THERAPEUTIC DRUG LEVEL MON 10/01/2016 LEAH WOLF MD, Ot Z79.01 HOME STAGER (CURRENT) USE OF ANTICOAGULANT 10/01/2016 LEAH WOLF MD, Ot Z86.718 PERSONAL HISTORY OF OTHER VENOUS THROMBO 10/10/2016 LEAH WOLF MD, Ot R91.8 OTHER NONSPECIFIC ABNORMAL FINDING OF SLIM 11/07/2016 [place] MYRA Ot R60.0 LOCALIZED EDEMA 12/05/2016 LEAH WOLF MD, Ot Z51.81 ENCOUNTER FOR THERAPEUTIC DRUG LEVEL MON 12/05/2016 LEAH WOLF MD, Ot Z79.01 HOME STAGER (CURRENT) USE OF ANTICOAGULANT 12/05/2016 LEAH WOLF [...] Ot J43.9 EMPHYSEMA, UNSPECIFIED 12/16/2016 TIMO, STEPHANIE MILITARY SCIENCE TEACHER Ot J45.909 UNSPECIFIED ASTHMA, UNCOMPLICATED 12/16/2016 STEPHANIE GREENWOODP Ot K21.9 GASTRO-ESOPHAGEAL REFLUX DISEASE WITHOUT 12/16/2016 TIMO STEPHANIE MILITARY SCIENCE TEACHER Ot K59.09 OTHER CONSTIPATION 12/16/2016 STEPHANIE GREENWOODP Ot 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] 12/16/2016 STEPHANIE GREENWOODP Ot M79.89 OTHER SPECIFIED SOFT TISSUE DISORDERS 12/16/2016 STEPHANIE GREENWOODP Ot R60.9 EDEMA, UNSPECIFIED 12/16/2016 TIMO STEPHANIE MILITARY SCIENCE TEACHER Ot S86.112A STRAIN MUSC/TEND POST GRP AT LOW LEG LEV 12/16/2016 STEPHANIE GREENWOODP Ot X58.XXXA EXPOSURE TO OTHER SPECIFIED FACTORS, INI 12/16/2016 STEPHANIE GREENWOODP Ot Z79.01 HOME STAGER (CURRENT) USE OF ANTICOAGULANT 12/16/2016 STEPHANIE GREENWOOD Ot Z86.718 PERSONAL HISTORY OF OTHER VENOUS THROMBO 12/16/2016 TIMO, TSEPHANIE MILITARY SCIENCE TEACHER Ot Z87.891 PERSONAL HISTORY OF NICOTINE DEPENDENCE 12/16/2016 TIMOSTEPHANIE Diaz MILITARY SCIENCE TEACHER Ot Z90.710 ACQUIRED ABSENCE OF BOTH CERVIX AND UTER 12/18/2016 TIMOSTEPHANIE Diaz MILITARY SCIENCE TEACHER Ot E78.00 PURE HYPERCHOLESTEROLEMIA, UNSPECIFIED 12/18/2016 TIMO, STEPHANIE MILITARY SCIENCE TEACHER Ot F41.9 ANXIETY DISORDER, UNSPECIFIED 12/18/2016 TIMO, STEPHANIE MILITARY SCIENCE TEACHER Ot I10 ESSENTIAL (PRIMARY) HYPERTENSION 12/18/2016 TIMOSTEPHANIE Diaz MILITARY SCIENCE TEACHER Ot J43.9 EMPHYSEMA, UNSPECIFIED 12/18/2016 TIMO, STEPHANIE MILITARY SCIENCE TEACHER Ot J45.909 UNSPECIFIED ASTHMA, UNCOMPLICATED 12/18/2016 TIMO, STEPHANIE MILITARY SCIENCE TEACHER Ot K21.9 GASTRO-ESOPHAGEAL REFLUX DISEASE WITHOUT 12/18/2016 TIMO STEPHANIE MILITARY SCIENCE TEACHER Ot K59.09 OTHER CONSTIPATION 12/18/2016 TIMO STEPHANIE MILITARY SCIENCE TEACHER Ot 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] 12/18/2016 TIMO STEPHANIE MILITARY SCIENCE TEACHER Ot M79.89 OTHER SPECIFIED SOFT TISSUE DISORDERS 12/18/2016 STEPHANIE GREENWOOD MILITARY SCIENCE TEACHER Ot R60.9 EDEMA, UNSPECIFIED 12/18/2016 TIMO, STEPHANIE MILITARY SCIENCE TEACHER Ot S86.112A STRAIN MUSC/TEND POST GRP AT LOW LEG LEV 12/18/2016 STEPHANIE GREENWOOD MILITARY SCIENCE TEACHER Ot X58.XXXA EXPOSURE TO OTHER SPECIFIED FACTORS, INI 12/18/2016 STEPHANIE GREENWOOD MILITARY SCIENCE TEACHER Ot Z79.01 FDC (CURRENT) USE OF ANTICOAGULANT 12/18/2016 TIMO STEPHANIE MILITARY SCIENCE TEACHER Ot Z86.718 PERSONAL HISTORY OF OTHER VENOUS THROMBO 12/18/2016 STEPHANIE GREENWOOD MILITARY SCIENCE TEACHER Ot Z87.891 PERSONAL HISTORY OF NICOTINE DEPENDENCE 12/18/2016 TIMOSTEPHANIE Diaz MILITARY SCIENCE TEACHER Ot Z90.710 ACQUIRED ABSENCE OF BOTH CERVIX AND UTER 12/18/2016 TIMO, STEPHANIE MILITARY SCIENCE TEACHER Ot E78.00 PURE HYPERCHOLESTEROLEMIA, UNSPECIFIED 12/18/2016 TIMO, STEPHANIE MILITARY SCIENCE TEACHER Ot F41.9 ANXIETY DISORDER, UNSPECIFIED 12/18/2016 TIMO, STEPHANIE MILITARY SCIENCE TEACHER Ot I10 ESSENTIAL (PRIMARY) HYPERTENSION 12/18/2016 TIMO, STEPHANIE MILITARY SCIENCE TEACHER Ot J43.9 EMPHYSEMA, UNSPECIFIED 12/18/2016 TIMO, STEPHANIE MILITARY SCIENCE TEACHER Ot J45.909 UNSPECIFIED ASTHMA, UNCOMPLICATED 12/18/2016 TIMO, STEPHANIE MILITARY SCIENCE TEACHER Ot K21.9 GASTRO-ESOPHAGEAL REFLUX DISEASE WITHOUT 12/18/2016 [...] FACTORS, INI 12/18/2016 TIMOSTEPHANIE Diaz Ot Z79.01 HOME STAGER (CURRENT) USE OF ANTICOAGULANT 12/18/2016 TIMOSTEPHANIE Diaz Ot Z86.718 PERSONAL HISTORY OF OTHER VENOUS THROMBO 12/18/2016 TIMOSTEPHANIE Diaz Ot Z87.891 PERSONAL HISTORY OF NICOTINE DEPENDENCE 12/18/2016 TIMOSTEPHANIE Diaz Ot Z90.710 ACQUIRED ABSENCE OF BOTH CERVIX AND UTER 12/21/2016 LEAH WOLF MD Ot Z12.31 ENCNTR SCREEN MAMMOGRAM FOR MALIGNANT NE 12/26/2016 LEAH WOLF MD Ot N64.89 OTHER SPECIFIED DISORDERS OF BREAST 12/31/2016 LEAH WOLF MD Ot N64.89 OTHER SPECIFIED [...] BREATH 01/02/2017 ALVA BENJAMIN MD, Ot Z79.01 HOME STAGER (CURRENT) USE OF ANTICOAGULANT 01/02/2017 ALVA BENJAMIN [...] BREATH 01/03/2017 ALVA BENJAMIN MD, Ot Z79.01 [facility] (CURRENT) USE OF ANTICOAGULANT 01/03/2017 ALVA BENJAMIN [...] PERSONAL HISTORY OF NICOTINE DEPENDENCE 01/03/2017 ALVA BENJAMIN MD Ot Z90.710 ACQUIRED ABSENCE OF BOTH [...] DISORDERS 03/16/2017 FELIBERTO LEE MD Ot Z79.01 HOME STAGER (CURRENT) USE OF ANTICOAGULANT 03/16/2017 FELIBERTO LEE [...] BACTER 04/15/2017 HOWARD GROVES MD Ot Z79.01 [facility] (CURRENT) USE OF ANTICOAGULANT 04/16/2017 RONAN ROSARIO, [...] MON 04/18/2017 LEAH WOLF MD, Ot Z79.01 [facility] (CURRENT) USE OF ANTICOAGULANT 04/18/2017 LEAH WOLF [...] UNSPECIFIED ASTHMA WITH (ACUTE) EXACERBA 04/20/2017 HOWARD GROVES MD Ot K21.9 GASTRO-ESOPHAGEAL REFLUX DISEASE WITHOUT 04/20/2017 HOWARD GROVES MD Ot M19.91 PRIMARY OSTEOARTHRITIS, UNSPECIFIED SITE 04/20/2017 HOWARD GROVES MD Ot N20.1 CALCULUS OF URETER 04/20/2017 HOWARD GROVES MD Ot N81.10 CYSTOCELE, UNSPECIFIED 04/20/2017 HOWARD GROVES MD, Ot N81.6 RECTOCELE 04/20/2017 HOWARD GROVES MD, Ot R09.02 HYPOXEMIA 04/20/2017 HOWARD GROVES MD, Ot Z79.01 HOME STAGER (CURRENT) USE OF ANTICOAGULANT 04/20/2017 HOWARD GROVES [...] Ot M23.222 [facility] D/T Procedures Code Description Performed By Performed On 65.61 03/17/2009 68.49 03/17/2009 87.77 03/24/2009 38.7 05/28/2009 45.25 10/16/2011 45.42 10/16/2011 [id number] EXCISION OF RIGHT MAXILLARY SINUS, PERC 04/18/2017 [id number] EXCISION OF LEFT MAXILLARY SINUS, PERC E 04/18/2017 [id number] EXCISION OF RIGHT FRONTAL SINUS, PERC EN 04/18/2017 [id number] EXCISION OF LEFT FRONTAL SINUS, PERC END 04/18/2017 [id number] RESECTION OF RIGHT ETHMOID SINUS, PERC E 04/18/2017 [id number] RESECTION OF LEFT ETHMOID SINUS, PERC EN 04/18/2017 [id number] INSPECTION OF URETER, ENDO 04/18/2017 Results Test [...] FOR INFLUENZA A AND B ANTIGENS BY [facility] Blood lactic acid measurement (moles/volume) - 07/06/16 [...] 07/23/16 10:50 Blood monocytes/100 leukocytes 6 % [facility] Manual blood segmented neutrophils/100 leukocytes 51 % NR Blood band neutrophils/100 leukocytes 0 % NR Manual blood lymphocytes/100 leukocytes 28 % NR Manual eosinophils/100 leukocytes in nose 15 % NR Manual blood basophils/100 leukocytes 0 % NR Blood anisocytosis detection by light microscopy SLIGHT [facility] Comprehensive metabolic panel - 07/23/16 11:25 Serum [...] or plasma urea nitrogen/creatinine mass ratio 10 [facility] Serum or plasma creatinine measurement with calculation of estimated glomerular filtration rate > [facility] Serum or plasma glucose measurement (mass/volume) 117 [...] 21:29 Bacteria identification in wound by culture [id number] NRG FREE TEXT EXTERNAL (2 COLONY TYPES) [...] INFLUENZA A AND B ANTIGENS BY IA [facility] Comprehensive metabolic panel - 05/18/17 00:59 Serum [...] or plasma urea nitrogen/creatinine mass ratio 22 [facility] Serum or plasma creatinine measurement with calculation of estimated glomerular filtration rate > [facility] Serum or plasma glucose measurement (mass/volume) 114 [...] 05/18/17 00:59 BNP level 15.1 pg/mL <100.0 Serum or plasma troponin i.cardiac measurement (mass/volume) - 05/18/17 00:59 Serum or plasma troponin i.cardiac measurement (mass/volume) < ng/ mL <0.30 Arterial blood gas measurement - 05/18/17 01:55 Blood pCO2 60 mm[Hg] 35-45 Blood pO2 57 mm[Hg] 79-93 Arterial blood bicarbonate measurement (moles/volume) 28 mmol/L 23-27 Arterial blood base excess by calculation 1.6 mmol/L -2.5 -2.5 Arterial blood oxygen saturation measurement 87 % 94-100 * Inhaled oxygen flow rate 4L NRG Arterial blood pH measurement with patient temperature correction 7.28 7.37-7.43 Arterial blood carbon dioxide, total measurement (moles/volume) 29.6 mmol/L 21.0-31.0 Body site L RAD NRG Assessment of wrist artery patency prior to arterial puncture YES- POS NRG Setting of ventilation mode NO NRG Measurement of body temperature 98.0 NRG Arterial blood gas measurement - 05/18/17 02:40 Blood pCO2 62 mm[Hg] 35-45 Blood pO2 253 mm[Hg] 79-93 Arterial blood bicarbonate measurement (moles/volume) 27 mmol/L 23-27 Arterial blood base excess by calculation 0.9 mmol/L -2.5 -2.5 Arterial blood oxygen saturation measurement 100 % 94- 100 * Inhaled oxygen flow rate BIPAP NRG Arterial blood pH measurement with patient temperature correction 7.26 7.37-7.43 Arterial blood carbon dioxide, total measurement (moles/volume) 29.2 mmol/L 21.0-31.0 Body site R RAD NRG Assessment of wrist artery patency prior to arterial puncture YES- POS NRG Setting of ventilation mode YES NRG Measurement of body temperature 97.6 NRG Encounters ACCT No. Visit Date/Time Discharge Status Pt. Type Provider Facility Loc./Unit Complaint [id number] 05/08/2017 12:10:00 05/08/2017 23:59:59 CLS Outpatient HOWARD SALDANA MD Via [facility] WOUNDCARE [id number] 05/05/2017 20:29:00 05/06/2017 00:36:00 DIS Emergency SOURAV ROSARIO, ALVA Casanova [facility] ER WOUND CARE L LEG PAIN [id number] 05/01/2017 08:30:00 05/01/2017 23:59:59 CLS Outpatient HOWARD SALDANA MD Via [facility] WOUNDCARE [id number] 04/19/2017 11:00:00 04/20/2017 12:10:00 DIS Inpatient HOWARD GROVES MD Via [facility] 4TH NASAL POLYPS,URETERAL STONE [id number] 04/18/2017 11:00:00 04/18/2017 23:59:59 CLS Preadmit ARIES FERRARO MD Via [facility] SDC RIGHT URETERAL STONES [id number] 04/16/2017 10:00:00 04/16/2017 23:59:59 CLS Outpatient LEAH WOLF MD Via [facility] PULM J44.1 [id number] 04/12/2017 08:57:00 04/12/2017 09:45:00 DIS Outpatient HOWARD GROVES MD Via [facility] PREOP NASAL POLYPS,RT URETERAL STONE [id number] 04/03/2017 15:10:00 04/03/2017 23:59:59 CLS Outpatient ARIES FERRARO MD Via [facility] RAD Z87.442 [id number] 04/02/2017 10:47:00 04/02/2017 23:59:59 CLS Outpatient CHULA LAKE Via [facility] RAD DERANGEMENT OF OTHER LATERAL MENISCUS DUE TO OLD T [id number] 03/29/2017 10:41:00 03/29/2017 23:59:59 CLS Outpatient TEDDY PHILIP MD Via [facility] RAD RUQ PAIN [id number] 03/26/2017 14:42:00 03/26/2017 23:59:59 CLS Outpatient LEAH WOLF MD Via [facility] CARD PREOP [id number] 03/20/2017 10:18:00 03/20/2017 23:59:59 CLS Outpatient LEAH WOLF MD Via [facility] RAD HYPERECHOIC LESION 730 POSITION R BREAST [id number] 03/20/2017 10:12:00 03/20/2017 23:59:59 CLS Outpatient LEAH WOLF MD Via [facility] RAD 6MM R NODULE [id number] 03/16/2017 11:49:00 03/16/2017 14:37:00 DIS Emergency JESUS ROSARIO, FELIBERTO S [facility] ER L LEG PAIN, SWELLING, REDNESS [id number] 03/07/2017 14:22:00 03/07/2017 23:59:59 CLS Outpatient LEAH WOLF MD Via [facility] RAD R LOWER ABD PAIN, TRAPEASE PLACED 05/28/69 [id number] 02/15/2017 11:33:00 02/15/2017 23:59:59 CLS Outpatient YANELI ROSARIO, HOWARD Logan [facility] RAD NASAL POLYS [id number] 01/01/2017 21:37:00 01/02/2017 01:03:00 DIS Emergency SOURAV ROSARIO, ALVA Casanova [facility] ER SOB [id number] 12/25/2016 08:27:00 12/25/2016 23:59:59 CLS Outpatient LEAH WOLF MD Via [facility] RAD 6 MM ASYMMETRY LATERAL R BREAST [id number] 12/16/2016 18:36:00 12/16/2016 20:36:00 DIS Emergency TIMOSTEPHANIE MILITARY SCIENCE TEACHER [facility] ER L LEG PAIN/SWELLING [id number] 12/10/2016 14:47:00 12/10/2016 23:59:59 CLS Outpatient LEAH WOLF MD Via [facility] RAD SCREENING Z12.31 [id number] 12/06/2016 00:16:00 12/06/2016 23:59:59 CLS Preadmit LEAH WOLF MD Via [facility] LAB COMADIN THERAPY [id number] 09/06/2016 16:15:00 12/05/2016 00:01:00 DIS Outpatient LEAH WOLF MD Via [facility] LAB COMADIN THERAPY [id number] 09/19/2016 10:34:00 09/19/2016 23:59:59 CLS Outpatient LEAH WOLF MD Via [facility] RAD MICRONODULES RML AND LLL BASES [id number] 08/09/2016 07:51:00 08/09/2016 23:59:59 CLS Outpatient CHARITY ROSARIO FACC, PAVAN WOLFF CCDS [facility] CARD CLAUDICATION, CAD,COPD,SOB,LEG SWELLING,HTN [id number] 05/11/2016 14:21:00 08/09/2016 00:01:00 DIS Outpatient LEAH WOLF MD Via [facility] LAB COMADIN THERAPY [id number] 08/07/2016 14:33:00 08/07/2016 23:59:59 CLS Outpatient CHARITY ROSARIO FACC, PAVAN WOLFF CCDS [facility] CARD CLAUDICATION, CAD,COPD,SOB,LEG SWELLING,HYPERTENSIO [id number] 08/03/2016 09:28:00 08/03/2016 23:59:59 CLS Outpatient LEAH WOLF MD Via [facility] LAB RECTAL BLEED [id number] 07/23/2016 14:07:00 07/25/2016 14:25:00 DIS Inpatient LEAH WOLF MD Via [facility] 4TH AECOPD HYPONATREMIA DYSPNEA [id number] 07/11/2016 13:17:00 07/11/2016 23:59:59 CLS Outpatient CHARITY ROSARIO FACC, PAVAN WOLFF CCDS [facility] RAD CLAUDICATION, CAD,COPD,SOB,LEG SWELLING,HYPERTENSIO [id number] 07/06/2016 15:33:00 07/06/2016 19:10:00 DIS Emergency SOURAV ROSARIO, ALVA Casanova [facility] ER L LEG PAIN/L ABD PAIN [id number] 06/06/2016 05:44:00 06/11/2016 10:26:00 DIS Inpatient LEAH WOLF MD Via [facility] 4TH COPD ACUTE EXACERBATION- DYSPNEA [id number] 06/04/2016 13:04:00 06/04/2016 15:30:00 DIS Emergency KAMRAN LINDQUIST APRN Via [facility] ER COUGH/CONGESTION WHEEZING [id number] 04/16/2016 15:26:00 04/16/2016 15:59:00 DIS Outpatient LEAH WOLF MD Via [facility] SLEEP OBSERVED APNEA,SNORING, HPN,EDS,AM KHALIL [id number] 03/16/2016 12:21:00 04/02/2016 00:01:00 DIS Outpatient LEAH WOLF MD Via [facility] LAB COMADIN THERAPY [id number] 03/16/2016 10:58:00 03/16/2016 23:59:59 CLS Outpatient CHULA LAKE Via [facility] RAD OTHER INJURY OF MUSCLES AND TENDONS [id number] 03/02/2016 19:12:00 03/02/2016 21:14:00 DIS Emergency SOURAV ROSARIO, ALVA Casanova Via [facility] ER SOA [id number] 01/24/2016 12:07:00 01/24/2016 13:29:00 DIS Emergency KAMRAN LINDQUIST APRN Via [facility] ER SOA [id number] 12/08/2015 09:32:00 12/08/2015 23:59:59 CLS Outpatient LEAH WOLF MD Via [facility] RAD SCREENING [id number] 11/30/2015 12:25:00 11/30/2015 14:26:00 DIS Emergency STEPHANIE ECKERT DO Via [facility] ER COUGH/CONGESTION SOA [id number] 10/24/2015 13:32:00 11/27/2015 00:01:00 DIS Outpatient LEAH WOLF MD Via [facility] LAB COMADIN THERAPY [id number] 11/07/2015 19:21:00 11/07/2015 21:58:00 DIS Emergency SALOMÓN ELY DO Via [facility] ER CONGESTION,SOA,HEADACHE [id number] 10/13/2015 11:41:00 10/13/2015 13:50:00 DIS Emergency KAMRAN LINDQUIST APRN Via [facility] ER LEFT SIDE PAIN SOA [id number] 09/24/2015 15:42:00 09/24/2015 18:47:00 DIS Emergency JESUS ROSARIO, FELIBERTO S Via [facility] ER LEFT ANKLE/FOOT PAIN [id number] 09/17/2015 12:36:00 09/17/2015 14:58:00 DIS Emergency SOURAV ROSARIO, ALVA Casanova [facility] ER LIGHTHEADED/NAUSEA [id number] 09/15/2015 06:06:00 09/16/2015 15:22:00 DIS Outpatient TEDDY PHILIP MD Via [facility] SDC RECURRENT VENTRAL HERNIA [id number] 09/12/2015 08:16:00 09/12/2015 08:50:00 DIS Outpatient TEDDY PHILIP MD Via [facility] PREOP RECURRENT VENTRAL HERNIA [id number] 09/02/2015 08:53:00 09/02/2015 23:59:59 CLS Outpatient AKIKO NAVARRO Via [facility] LAB CAD, HYPERCHOLESTEROLEMIA, HYPERTENSION,SYNCOPE EMIR [id number] 08/29/2015 11:56:00 08/29/2015 23:59:59 CLS Outpatient LEAH OWLF MD Via [facility] RAD INFLTRATE [id number] 08/03/2015 15:48:00 2015 00:01:00 DIS Outpatient LEAH WOLF MD Via [facility] LAB COMADIN THERAPY [id number] 08/10/2015 09:19:00 08/16/2015 18:05:00 DIS Inpatient LEAH WOLF MD Via [facility] 4TH ASTHMA,EXACERBATION, HYPOXEMIA [id number] 06/20/2015 16:01:00 06/23/2015 13:24:00 DIS Inpatient LEAH WOLF MD Via [facility] 4TH ASTHMA EXASPERATION [id number] 06/08/2015 14:12:00 06/08/2015 15:48:00 DIS Emergency KAMRAN LINDQUIST DENIAL RESOLUTION SPECIALIST Via [facility] ER COUGH/SOA [id number] 05/24/2015 13:35:00 05/24/2015 23:59:59 CLS Outpatient LEAH WOLF MD Via [facility] RAD LEFT UPPER BREAST TENDERNESS [id number] 05/03/2015 10:17:00 05/03/2015 23:59:59 CLS Outpatient LEAH WOLF MD Via [facility] RAD MEMORY LOSS [id number] 04/16/2015 12:35:00 04/16/2015 13:35:00 DIS Emergency FELIBERTO LEE MD Via [facility] ER ASTHMA ISSUES [id number] 03/07/2015 15:17:00 03/09/2015 11:50:00 DIS Inpatient LEAH WOLF MD Via [facility] 4TH ASTHMA HYPOXIA [id number] 02/01/2015 08:54:00 02/07/2015 00:01:00 DIS Outpatient LEAH WOLF MD Via [facility] LAB COMADIN THERAPY [id number] 02/05/2015 14:23:00 02/05/2015 16:48:00 DIS Emergency SALOMÓN ELY DO Via [facility] ER COPD/ASTHMA ISSUES [id number] 12/06/2014 14:56:00 12/06/2014 23:59:59 CLS Outpatient LEAH WOLF MD Via [facility] RAD SCREENING [id number] 11/09/2014 17:16:00 11/09/2014 23:59:59 CLS Outpatient LEAH WOLF MD Via [facility] LAB ABD PAIN [id number] 10/06/2014 09:35:00 11/01/2014 00:01:00 DIS Outpatient LEAH WOLF MD Via [facility] LAB COMADIN THERAPY [id number] 10/10/2014 13:14:00 10/10/2014 14:45:00 DIS Emergency KAMRAN LINDQUIST DENIAL RESOLUTION SPECIALIST Via [facility] ER SOA [id number] 09/26/2014 20:50:00 09/28/2014 19:36:00 DIS Inpatient TEDDY PHILIP MD Via [facility] SURGICAL RIGHT GLUTEAL HEMATOMA [id number] 09/23/2014 08:05:00 09/23/2014 11:10:00 DIS Emergency DOMINIQUE ROSARIO, SHELL Hathaway [facility] ER FELL OFF PORCH HURT ARM [id number] 09/09/2014 22:20:00 09/14/2014 17:20:00 DIS Inpatient LEAH WOLF MD Via [facility] 4TH AECOPD [id number] 09/08/2014 10:04:00 09/08/2014 16:50:00 DIS Outpatient TEDDY PHILIP MD Via [facility] SDC ABD PAIN,HX OF POLYPS [id number] 09/06/2014 10:52:00 09/06/2014 23:59:59 CLS Outpatient TEDDY PHILIP MD Via [facility] PREOP ABD PAIN HX OF POLYS [id number] 06/07/2014 17:18:00 08/13/2014 10:37:00 DIS Outpatient LEAH WOLF MD Via [facility] LAB COUMADIN,ANTICOAG THERAPY , DVT [id number] 07/29/2014 10:22:00 08/13/2014 10:36:00 DIS Outpatient LEAH WOLF MD Via [facility] LAB ACUTE VENOUS EMBOLISM AND THROMBOSIS [id number] 06/16/2014 15:00:00 06/16/2014 16:13:00 DIS Emergency KAMRAN LINDQUIST APRN Via [facility] ER COUGH SOA/WHEEZING [id number] 05/18/2014 15:38:00 05/24/2014 00:01:00 DIS Outpatient LEAH WOLF MD Via [facility] LAB COUMADIN,ANTICOAG THERAPY , DVT [id number] 04/30/2014 00:35:00 04/30/2014 23:59:59 CLS Preadmit LEAH WOLF MD Via [facility] SURG RCR CELLULITIS [id number] 02/01/2014 20:20:00 04/29/2014 00:01:00 DIS Outpatient LEAH WOLF MD Via [facility] SURG RCR CELLULITIS [id number] 04/26/2014 08:29:00 04/26/2014 12:01:00 DIS Emergency SOURAV ROSARIO, ALVA Casanova [facility] ER EARACHE/JAW PAIN [id number] 04/14/2014 08:03:00 04/14/2014 23:59:59 CLS Outpatient AKIKO NAVARRO Via [facility] LAB HYPERLIPIDEMIA [id number] 03/18/2014 10:53:00 03/18/2014 13:17:00 DIS Emergency KAMRAN LINDQUIST APRN Via [facility] ER COUGH/SOA [id number] 03/15/2014 11:15:00 03/17/2014 12:07:00 DIS Outpatient LEAH WOLF MD Via [facility] REHAB SCIATICA [id number] 03/10/2014 08:41:00 03/10/2014 10:02:00 DIS Emergency SOURAV ROSARIO, ALVA Casanova [facility] ER COUGH/CONGESTION/ ASTHMA [id number] 01/24/2014 16:29:00 01/29/2014 10:30:00 DIS Inpatient LEAH WOLF MD Via [facility] SURGICAL CELLULITIS LLE; INCREASED PT/INR [id number] 01/04/2014 08:54:00 01/04/2014 12:11:00 DIS Emergency STEPHANIE ECKERT DO Via [facility] ER LEFT LEG DRAINAGE [id number] 12/31/2013 07:54:00 12/31/2013 09:31:00 DIS Emergency ANDRES HOWE MD Via [facility] ER LEFT LEG PAIN [id number] 12/19/2013 20:02:00 12/19/2013 20:33:00 DIS Emergency KAMRAN LINDQUIST APRN Via [facility] ER ANKLE INJ [id number] 12/16/2013 18:38:00 12/17/2013 11:09:00 DIS Inpatient LEAH WOLF MD Via [facility] ICU ACUTE RESPIRATORY FAILURE DISTRESS; POSSIBLE LEA [id number] 10/28/2013 10:37:00 12/03/2013 00:01:00 DIS Outpatient LEAH WOLF MD Via [facility] LAB COUMADIN,ANTICOAG THERAPY , DVT [id number] 11/24/2013 15:01:00 11/24/2013 23:59:59 CLS Outpatient LEAH WOLF MD Via [facility] RAD SCREENING [id number] 11/18/2013 09:59:00 11/18/2013 23:59:59 CLS Outpatient LEAH WOLF MD Via [facility] RAD KNEE PAIN [id number] 11/03/2013 09:30:00 11/03/2013 09:44:00 DIS Outpatient LEAH WOLF MD Via [facility] WOUNDCARE LEFT LEG OPEN WOUNDS [id number] 10/28/2013 10:17:00 10/28/2013 23:59:59 CLS Outpatient ADAM BARON DO Via [facility] LAB ANEMIA [id number] 10/11/2013 10:43:00 10/11/2013 13:05:00 DIS Emergency DEE DEE MALHOTRA [facility] ER HEARTBURN LEFT SIDE ABDOMINAL PAIN [id number] 10/10/2013 10:18:00 10/10/2013 13:15:00 DIS Emergency DEE DEE MALHOTRA Via [facility] ER SWOLLEN LEGS L WORSE [id number] 10/07/2013 12:14:00 10/07/2013 23:59:59 CLS Outpatient AKIKO NAVARRO Via [facility] CARD CP,SYNCOP,PE ,HTN,HEART PALPITATIONS [id number] 10/02/2013 10:36:00 10/02/2013 23:59:59 CLS Outpatient AKIKO NAVARRO [facility] CARD CP,SYNCOP,PE ,HTN,HEART PALPITATIONS [id number] 09/04/2013 12:57:00 09/04/2013 23:59:59 CLS Outpatient LEAH WOLF MD Via [facility] LAB EPIGASTRIC PAIN [id number] 09/04/2013 12:52:00 09/04/2013 23:59:59 CLS Outpatient TERRI KIDD DO Via [facility] RT ASTHMA,COPD [id number] 08/18/2013 20:48:00 08/18/2013 22:12:00 DIS Emergency SOURAV ROSARIO, ALVA Casanova [facility] ER SOA [id number] 07/22/2013 12:32:00 07/22/2013 14:19:00 DIS Emergency KAMRAN LINDQUIST DENIAL RESOLUTION SPECIALIST [facility] ER LEGS SWELLING [id number] 07/01/2013 20:00:00 07/02/2013 18:10:00 DIS Inpatient LEAH WOLF MD Via [facility] 4TH ACUTE EXACERBATION OF COPD, HYPOXIA [id number] 05/19/2013 11:30:00 06/21/2013 00:01:00 DIS Outpatient LEAH WOLF MD Via [facility] LAB ANTICOAG THERAPY, DVT [id number] 05/27/2013 13:32:00 05/27/2013 23:59:59 CLS Outpatient LAEH WOLF MD Via [facility] RAD FLU [id number] 05/17/2013 10:00:00 05/17/2013 14:30:00 DIS Emergency KAMRAN LINDQUIST DENIAL RESOLUTION SPECIALIST Via [facility] ER CONGESTION SOA [id number] 04/20/2013 14:56:00 04/20/2013 17:58:00 DIS Emergency DEE DEE MALHOTRA Via [facility] ER BLOOD IN STOOL [id number] 04/01/2013 13:42:00 04/14/2013 10:31:00 DIS Outpatient LEAH WOLF MD Via [facility] REHAB MID AND LOW BACK PAIN [id number] 04/08/2013 06:05:00 04/08/2013 14:33:00 DIS Outpatient ELLEN ROSARIO, HOWARD Logan [facility] SDC LEFT CUBITAL TUNNEL SYNDROME [id number] 04/06/2013 13:23:00 04/06/2013 23:59:59 CLS Outpatient LEAH WOLF MD Via [facility] RT COPD [id number] 04/01/2013 12:37:00 04/01/2013 23:59:59 CLS Outpatient HOWARD HUGHES MD Via [facility] PREOP LEFT CUBITAL TUNNEL SYNDROME [id number] 01/08/2013 09:51:00 03/01/2013 00:01:00 DIS Outpatient LEAH WOLF MD Via [facility] LAB ANTICOAG THERAPY, DVT [id number] 12/22/2012 14:30:00 02/19/2013 00:01:00 DIS Outpatient IZABELA MCCLAIN MILITARY SCIENCE TEACHER [facility] WOUNDCARE DELAYED WOUND HEALING L L/E [id number] 02/13/2013 11:45:00 02/13/2013 23:59:59 CLS Outpatient LEAH WOLF MD Via [facility] RAD LOW BACK PAIN, [id number] 02/09/2013 15:57:00 02/09/2013 23:59:59 CLS Outpatient KIRAN GREER MILITARY SCIENCE TEACHER [facility] ONC OV [id number] 02/09/2013 15:36:00 02/09/2013 23:59:59 CLS Preadmit KIRAN GREER MILITARY SCIENCE TEACHER [facility] ONC OV [id number] 02/09/2013 12:04:00 02/09/2013 23:59:59 CLS Outpatient LEAH WOLF MD Via [facility] RAD BACK PAIN X3 WKS [id number] 10/01/2012 08:09:00 12/28/2012 00:01:00 DIS Outpatient KALEIGH ROSARIO, SHEILA Nicolas [facility] SDC ANXIETY ON LEG SWELLING [id number] 12/01/2012 08:31:00 12/01/2012 23:59:59 CLS Outpatient LEAH WOLF MD Via [facility] RAD SCREENING [id number] 10/27/2012 12:53:00 11/20/2012 00:01:00 DIS Outpatient LEAH WOLF MD Via [facility] LAB DVT,CUMADN THERAPY [id number] 11/18/2012 12:02:00 11/18/2012 23:59:59 CLS Outpatient LEAH WOLF MD Via [facility] RT SOB [id number] 10/24/2012 19:25:00 10/24/2012 20:47:00 DIS Emergency CARY ROSARIO, RAJESH Bass [facility] ER LEFT LEG PAIN [id number] 09/29/2012 16:04:00 09/29/2012 23:59:59 CLS Outpatient [id number] 09/28/2012 23:11:00 09/29/2012 13:55:00 DIS Inpatient LUCIANO ROSARIO, LEAH Jacome [facility] 4TH POST OP WOUND INFECTION [id number] 09/27/2012 08:44:00 09/27/2012 09:26:00 DIS Emergency STEPHANIE ECKERT DO Via [facility] ER L LEG SWELLING [id number] 09/24/2012 09:21:00 09/24/2012 18:50:00 DIS Outpatient SHEILA FARRIS MD Via [facility] SDC VERICOSE VEINS [id number] 09/22/2012 07:58:00 09/22/2012 23:59:59 CLS Outpatient SHEILA FARRIS MD Via [facility] RAD VARICOSE VEINS [id number] 05/18/2017 01:18:00 Document Registration [id number] 09/09/2014 22:44:00 Document Registration [id number] 09/09/2014 22:40:00 Document Registration [id number] 09/09/2014 22:40:00 Document Registration [id number] 09/09/2014 22:40:00 Document Registration [id number] 09/09/2014 22:40:00 Document Registration [id number] 09/09/2014 22:40:00 Document Registration [id number] 09/09/2014 22:40:00 Document Registration [id number] 09/09/2014 22:40:00 Document Registration [id number] 09/09/2014 22:40:00 Document Registration [id number] 09/09/2014 22:40:00 Document Registration [id number] 09/09/2014 22:40:00 Document Registration [id number] 07/19/2014 15:45:00 Document Registration [id number] 02/20/2013 13:15:00 Document Registration [id number] 12/29/2012 00:00:00 Document Registration [id number] 11/21/2012 00:00:00 Document Registration [id number] 08/15/2012 11:11:00 Document Registration [id number] 08/07/2012 12:12:00 Document Registration [id number] 07/30/2012 04:55:00 Document Registration [id number] 07/21/2012 09:05:00 Document Registration [id number] 07/13/2012 17:06:00 Document Registration [id number] 06/16/2012 09:44:00 Document Registration [id number] 06/09/2012 14:56:00 Document Registration [id number] 04/30/2012 11:41:00 Document Registration [id number] 04/30/2012 09:34:00 Document Registration [id number] 04/08/2012 08:40:00 Document Registration [id number] 03/31/2012 09:48:00 Document Registration [id number] 03/18/2012 14:52:00 Document Registration [id number] 01/29/2012 10:51:00 Document Registration [id number] 01/16/2012 15:45:00 Document Registration [id number] 12/20/2011 08:56:00 Document Registration [id number] 12/20/2011 08:39:00 Document Registration [id number] 12/12/2011 20:28:00 Document Registration [id number] 12/08/2011 14:27:00 Document Registration [id number] 11/29/2011 10:46:00 Document Registration [id number] 10/31/2011 08:45:00 Document Registration [id number] 10/29/2011 13:18:00 Document Registration [id number] 10/15/2011 07:50:00 Document Registration [id number] 10/10/2011 07:58:00 Document Registration [id number] 09/13/2011 11:13:00 Document Registration [id number] 09/12/2011 00:00:00 Document Registration [id number] 08/10/2011 09:17:00 Document Registration [id number] 07/30/2011 16:25:00 Document Registration [id number] 06/26/2011 15:47:00 Document Registration [id number] 06/21/2011 16:17:00 Document Registration [id number] 06/18/2011 14:25:00 Document Registration [id number] 06/13/2011 11:53:00 Document Registration [id number] 06/10/2011 18:25:00 Document Registration [id number] 06/04/2011 15:48:00 Document Registration [id number] 04/30/2011 14:32:00 Document Registration [id number] 04/12/2011 13:02:00 Document Registration [id number] 04/11/2011 16:12:00 Document Registration [id number] 04/02/2011 20:11:00 Document Registration [id number] 02/21/2011 22:13:00 Document Registration [id number] 02/01/2011 11:33:00 Document Registration [id number] 01/19/2011 10:17:00 Document Registration [id number] 12/27/2010 14:10:00 Document Registration [id number] 12/13/2010 07:28:00 Document Registration [id number] 11/24/2010 11:37:00 Document Registration [id number] 11/07/2010 14:19:00 Document Registration [id number] 10/25/2010 14:53:00 Document Registration [id number] 10/23/2010 10:07:00 Document Registration [id number] 10/23/2010 09:54:00 Document Registration [id number] 10/13/2010 21:05:00 Document Registration [id number] 10/10/2010 15:28:00 Document Registration [id number] 09/05/2010 13:00:00 Document Registration [id number] 08/06/2010 13:10:00 Document Registration [id number] 07/24/2010 08:55:00 Document Registration [id number] 07/24/2010 08:53:00 Document Registration [id number] 07/24/2010 08:49:00 Document Registration [id number] 07/17/2010 09:01:00 Document Registration [id number] 07/05/2010 12:25:00 Document Registration [id number] 05/26/2010 16:34:00 Document Registration [id number] 05/13/2010 14:04:00 Document Registration [id number] 04/18/2010 12:47:00 Document Registration [id number] 04/10/2010 14:19:00 Document Registration [id number] 03/24/2010 11:42:00 Document Registration [id number] 03/07/2010 15:46:00 Document Registration [id number] 02/21/2010 09:30:00 Document Registration [id number] 02/08/2010 10:22:00 Document Registration [id number] 01/20/2010 13:42:00 Document Registration [id number] 01/05/2010 14:23:00 Document Registration [id number] 12/30/2009 16:00:00 Document Registration [id number] 12/29/2009 10:54:00 Document Registration [id number] 12/13/2009 05:58:00 Document Registration [id number] 12/06/2009 08:53:00 Document Registration [id number] 11/17/2009 10:51:00 Document Registration [id number] 11/17/2009 10:16:00 Document Registration [id number] 11/15/2009 14:09:00 Document Registration [id number] 11/10/2009 11:09:00 Document Registration [id number] 11/08/2009 08:36:00 Document Registration [id number] 11/03/2009 13:33:00 Document Registration [id number] 11/02/2009 12:29:00 Document Registration [id number] 10/19/2009 11:30:00 Document Registration [id number] 10/05/2009 09:25:00 Document Registration [id number] 08/18/2009 08:03:00 Document Registration [id number] 08/08/2009 15:02:00 Document Registration [id number] 08/04/2009 14:27:00 Document Registration [id number] 08/04/2009 13:31:00 Document Registration [id number] 08/01/2009 12:00:00 Document Registration [id number] 07/28/2009 15:24:00 Document Registration [id number] 07/25/2009 16:09:00 Document Registration [id number] 07/22/2009 12:13:00 Document Registration [id number] 07/21/2009 14:00:00 Document Registration [id number] 07/18/2009 14:15:00 Document Registration [id number] 07/14/2009 16:00:00 Document Registration [id number] 07/11/2009 16:02:00 Document Registration [id number] 04/28/2009 12:43:00 Document Registration [id number] 03/31/2009 12:55:00 Document Registration [id number] 05/11/2007 13:26:00 Document Registration [id number] 08/26/2006 20:00:00 Document Registration
[2017-05-18] MEDS ORDERED: 1/2 NS W/KCL 20 MEQ/L 1,000 ML IV ONE (04:00)
[2017-05-18] MEDS ORDERED: LORazepam INJ 2 MG/ML (ATIVAN) VIAL IV PRN (04:15)
[2017-05-18] MEDS: 1/2 NS W/KCL 20 MEQ/L 1,000 ML IV SCH ×2 (04:31→20:01)
[2017-05-18] MEDS: AZITHROMYCIN 500 MG/NS 250 ML IVPB IV SCH ×2 (04:31)
[2017-05-18 05:05] LABS: ABG BASE EXCESS 0.1 MMOL/L (-2.5-2.5); ABG OXYGEN SATURATION 100 % (94-100); ABG PCO2 43 MMHG (35-45); ABG PH 7.37 (7.37-7.43); ABG PO2 230 MMHG (79-93); ABG TCO2 26.2 MMOL/L (21.0-31.0)
[2017-05-18 05:06] LABS: ALLENS TEST YES-POS; INSPIRED O2 60% FIO2; PATIENT TEMP 97.8; VENTILATOR YES
[2017-05-18] MEDS ORDERED: RT-ALBUTEROL/IPRATROPIUM 3 ML (DUONEB) VIAL INH PRN (05:30)
[2017-05-18] MEDS ORDERED: KCL 20 MEQ TAB (K-DUR) PO SCH ×3 (06:00→07:00)
[2017-05-18] MEDS ORDERED: POTASSIUM CL 10MEQ/50ML IVPB 50 ML IV SCH (06:00)
[2017-05-18] MEDS ORDERED: MAGNESIUM 1 GM/100 ML IVPB 100 ML IV SCH (06:00)
[2017-05-18 06:03] LABS: BASOPHILS % (AUTO) 0 % (0-10); EOSINOPHILS % (AUTO) 0 % (0-10); HEMATOCRIT 34 % (35-52); HEMOGLOBIN 11.7 G/DL (11.5-16.0); LYMPHOCYTES # (AUTO) 0.4 X 10^3 (1.0-4.0); LYMPHOCYTES % (AUTO) 4 % (12-44); MEAN CORPUSCULAR HEMOGLOBIN 28 PG (25-34); MEAN CORPUSCULAR HGB CONC 34 G/DL (32-36); MEAN CORPUSCULAR VOLUME 83 FL (80-99); MEAN PLATELET VOLUME 8.9 FL (7.4-10.4); MONOCYTES # (AUTO) 0.2 X 10^3 (0.0-1.0); MONOCYTES % (AUTO) 2 % (0-12); NEUTROPHILS # (AUTO) 9.4 X 10^3 (1.8-7.8); NEUTROPHILS % (AUTO) 94 % (42-75); PLATELET COUNT 376 10^3/uL (130-400); RED BLOOD COUNT 4.12 10^6/uL (4.35-5.85); RED CELL DISTRIBUTION WIDTH 14.8 % (10.0-14.5); WHITE BLOOD COUNT 10.1 10^3/uL (4.3-11.0)
--- NOTE | 2017-05-18 06:08 | ED Respiratory ---
General Chief Complaint: Respiratory Problems Stated Complaint: COPD EXACERBATION;ACUTE ON CHRONIC RESPIRATORY Nursing Triage Note: pt reports waking from a nap this evening and having increasing shortness of air. pt history copd. pt states has had a cough since x 1 week and started steriods on that were ordered by Dr Wolf. pt brought in [facility]. Source: patient, EMS, old records History of Present Illness Time seen by provider: 00:53 Initial Comments PT ARRIVES VIA EMS FROM HOME--DUO NEB TREATMENT IN PROCESS ON ARRIVAL C/O DIFFICULTY BREATHING SINCE WAKING FROM NAP THIS EVENING PT GAVE HERSELF AN ALBUTEROL NEB TREATMENT JUST PRIOR TO EMS ARRIVAL EMS REPORT O2 SAT 86% ON ROOM AIR, UP TO 96-98% ON 4L/NC AND WITH NEB TREATMENT WITH 10L O2 PT STATES SHE HAS HAD A NON-PRODUCTIVE COUGH X 1 WEEK NO FEVER NO CHEST PAIN NO SWELLING IN LEGS/FEET OR PAIN IN CALVES PT WAS SEEN BY DR. WOLF ON SATURDAY AND GIVEN RX FOR PREDNISONE PT HAS NOT TAKEN HER XANAX TODAY PT HAS LONG HISTORY OF SAME, AND HAS HAD MULTITUDE OF VISITS FOR THIS PROBLEM PT SEEN HERE 05/05/17 FOR LEFT LEG CELLULITIS--RX DOXYCYCLINE--THOSE SYMPTOMS RESOLVED. PCP: DR. WOLF Allergies and Home Medications Allergies Coded Allergies: aspirin (Verified Allergy, Severe, ANAPHYLAXIS, 04/18/17) ibuprofen (Verified Allergy, Severe, ANAPHYLAXIS, 04/18/17) ketorolac (Verified Allergy, Severe, ANAPHYLAXIS, 04/18/17) tetanus and diphtheria toxoids (Unverified Allergy, Severe, ANAPHYLAXIS, 04/18/17) aloe (Verified Allergy, Mild, RASH, 04/18/17) latex (Verified Allergy, Mild, RASH, 04/18/17) OCCASIONALLY IS IRRITATING SKIN iodine (Verified Adverse Reaction, Unknown, 04/18/17) Patient states she got dizzy, diaphoretic and saw stars. Uncoded Allergies: ALOE VERA (Allergy, Unknown, 12/23/05) SILK SUTURES (Adverse Reaction, Unknown, BODY REJECTS SUTURES, 10/07/13) Home Medications Albuterol Sulfate 2.5 Mg/3 Ml Vial.neb, 2.5 MG IH TID, (Reported) USES THIS ALONG WITH IPRATROPIUM SOLUTION Albuterol Sulfate 8.5 Gm Hfa.aer.ad, 2 PUFF IH EVERY 4-6 HOURS PRN for WHEEZING, (Reported) Alprazolam 1 Mg Tablet, 1 MG PO Q8H PRN for ANXIETY, (Reported) Calcium Carbonate/Vitamin D3 1 Each Tablet, 1 TAB PO BID, (Reported) Diltiazem HCl 120 Mg Capsule.er, 120 MG PO DAILY, (Reported) Doxycycline Hyclate 100 Mg Tablet, 100 MG PO BID, #14 Prescribed by: ALVA LAMAR on 05/06/17 0030 Fenofibrate Nanocrystallized 145 Mg Tablet, 145 MG PO DAILY, (Reported) Furosemide 80 Mg Tablet, 80 MG PO DAILY, (Reported) Hydrocodone Bit/Acetaminophen 1 Each Tablet, 1-2 EACH PO Q4H PRN for PAIN, #40 Ref 0 Prescribed by: MARLEEN MATHIAS on 04/18/17 1302 Hydrocodone/Acetaminophen 1 Each Tablet, 1 TAB PO EVERY 6-8 HOURS PRN for PAIN, (Reported) Hyoscyamine Sulfate 0.125 Mg Tab.rapdis, 0.125 MG SL Q6H PRN for ABDOMINAL PAIN, (Reported) Ipratropium Sanders 0.2 Mg/1 Ml Solution, 1 VIAL NEB TID, (Reported) USES ALONG WITH ALBUTEROL SOLUTION Loratadine 10 Mg Tablet, 10 MG PO DAILY, (Reported) Pantoprazole Sodium 40 Mg Tablet.dr, 40 MG PO DAILY, (Reported) Potassium Chloride 10 Meq Tablet.er, 20 MEQ PO TID, (Reported) TAKES 2 (10 MEQ) TABLETS Promethazine HCl 25 Mg Tablet, 25 MG PO Q6H PRN for NAUSEA/VOMITING, (Reported) Warfarin Sodium 4 Mg Tablet, (Reported) Constitutional: no symptoms reported, No chills, No diaphoresis, No fever EENTM: no symptoms reported Respiratory: see HPI, cough, dyspnea on exertion, No phlegm, short of breath, wheezing Cardiovascular: no symptoms reported, No chest pain, No edema, No palpitations , No syncope Gastrointestinal: no symptoms reported 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: no symptoms reported Musculoskeletal: No back pain, other (CHRONIC LEG EDEMA/STABLE) Skin: no symptoms reported (BUT HAS HISTORY OF LEG ULCERATIONS) Psychiatric/Neurological: Anxiety Hematologic/Lymphatic: No Symptoms Reported Immunological/Allergic: no symptoms reported Past Fcaboqh-Hijlqz-Xoaolk Hx Patient Social History Alcohol Use: Denies Use Recreational Drug Use: Yes (HISTORY OF IV DRUG USE-COCAINE--DENIES USE SINCE 1994) Drug of Choice: + IV COCAINE USE Smoking Status: Former Smoker (1 PPD, QUIT IN 1999) Type Used: Cigarettes Former Smoker, Quit: September 12, 2003 2nd Hand Smoke Exposure: No Recent Foreign Travel: No Contact w/Someone Who Travel: No Recent Infectious Disease Expo: No Recent Hopitalizations: No Physical Abuse: No Sexual Abuse: No Mistreated: No Fear: No Immunizations Up To Date Tetanus Booster (TDap): Unknown PED Vaccines UTD: No Date of Pneumonia Vaccine: Sep 05, 2010 Date of Influenza Vaccine: Mar 11, 2012 Seasonal Allergies Seasonal Allergies: Yes Surgeries History of Surgeries: Yes ( VENA CAVA FILTER 2009; BREAST BIOPSY; HERNIA REPAIRS; LEFT ULNAR NERVE REPAIR; EGD'S / COLONOSCOPIES; COLON POLYPECTOMIES; D& C; X 2; D&C; BILATERAL SHOULDER AND KNEE SCOPES; LEFT LEG VEIN STRIPPING 09/2012; NASAL POLYPECTOMY; CYSTOSCOPY ) Surgeries: Abdominal, Adenoidectomy, Section, Gallbladder, Hysterectomy, Orthopedic, Tonsillectomy, Vascular Surgery Respiratory History of Respiratory Disorde: Yes (O2 AT NIGHT 2-3L AND PRN; NOCTURNAL HYPOXIA) Respiratory Disorders: Asthma, Pneumonia, Chronic Bronchitis, Pulmonary Embolism, COPD, Emphysema Currently Using BIPAP: No Cardiovascular History of Cardiac Disorders: Yes (VENA CAVA FILTER 2009; BILATERAL LEG DVT'S ; VARICOSE VEINS WITH VENOUS STASIS ULCERS) Cardiac Disorders: Chronic Edema/Swelling, Deep Vein Thrombosis, High Cholesterol, Hypertension, Peripheral Vascular Neurological History of Neurological Disord: Yes Neurological Disorders: Neuropathy 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 System : No Hx 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 Disorders: No Sexually Transmitted Disease: No HIV/AIDS: No 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 Disorders: Denies 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, Menopausal 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 History of 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 Disor: Yes 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 Disorders: Bladder Infection, Kidney Stones Gastrointestinal History of Gastrointestinal Di: Yes Gastrointestinal Disorders: Abdominal Hernia, Colitis, Gastroesophageal Reflux , Chronic Constipation, Diverticulosis, Polyps, Hiatal Hernia, Irritable Bowel Musculoskeletal History of Musculoskeletal Dis: Yes (SHOULDER AND KNEE SCOPES BILATERALLY; SHOULDER BURSITIS; LEFT ULNAR NERVE SURGERY) Musculoskeletal Disorders: Arthritis Endocrine History of Endocrine Disorders: Yes (PRE-DIABETIC ) HEENT History of HEENT Disorders: Yes (GLASSES) HEENT Disorders: Tinnitis Loss of Vision: Bilateral Hearing Impairment: Hard of Hearing Cancer History of Cancer: No Did You Recieve Any Treatments: No Psychosocial History of Psychiatric Problem: Yes Behavioral Health Disorders: Anxiety Suicide Risk Score: 1 Integumentary History of Skin or Integumenta: Yes (CHRONIC VENOUS STASIS CHANGES AND ULCERS) Skin/Integumentary Disorders: Recent Skin Changes Blood Transfusions History of Blood Disorders: Yes (HX OF DVT'S/ P.E.'S; PROBABLE PROTEIN C DEFICIENCY) Adverse Reaction to a Blood Tr: No (HAS HAD BLOOD WITH NO PROBLEMS) Family Medical History Significant Family History: Cancer, COPD, Vascular Disease Family Medial History: Alcoholism Alcoholism Arthritis Asthma Cancer Cancer of colon Cancer of mouth Cardiovascular disease Cataract Cataracts Chest pain Colon cancer Completed stroke Diabetes mellitus Family history: Allergy Family history: Arthritis Family history: Asthma Family history: Cardiovascular disease Family history: Coronary thrombosis Family history: Diabetes mellitus Family history: Gastrointestinal disease Family history: Hypertension Family history: Thyroid disorder Headache Hearing loss Heart disease History of - anemia History of - respiratory disease Hypercholesterolemia Hypercholesterolemia Infertile Malignant neoplasm of lung Myocardial infarction Myocardial infarction Psychotic disorder Respiratory disorder Stroke No Family History of: AIDS Abdominal aortic aneurysm Abdominal aortic aneurysm Fernando's disease Fernando's disease Alzheimer's disease Aphasia Aphasia Congenital disease Congenital heart disease Congenital heart disease Congestive heart failure Coronary thrombosis Cystic fibrosis Cystic fibrosis Deafness or hearing loss Dementia Dementia Drug abuse Dysphagia Dysphasia Family history: Alzheimer's disease Family history: Breast disease Family history: Glaucoma Family history: Osteoporosis Fibrocystic disease of breast Gastroenteritis Glaucoma Headache disorder Hereditary disease History of - disorder History of drug abuse Human immunodeficiency virus (HIV) seropositivity Infertility Kidney disease Kidney disease Neoplasm Not obtainable due to adoption Osteoporosis Parkinson's disease Parkinson's disease Prostate cancer Psychosocial problem Seizure disorder Seizure disorder Severe allergy Thyroid disease Tuberculosis Tuberculosis Visual disorder Visual impairment Physical Exam Vital Signs Vital Sign - Last 12Hours 05/18/17 05/18/17 00:53 01:24 Temp 98.3 Pulse 146 Resp 22 B/P (MAP) 172/121 (138) Pulse Ox 95 O2 Delivery Nasal Cannula O2 Flow Rate 4.00 Capillary Refill : Less Than 3 Seconds General Appearance: moderate distress (LABORED BREATHING BUT ABLE TO TALK IN FULL SENTENCES; ANXIOUS), obese, other (VERY ANXIOUS AND TREMULOUS) HEENT: PERRL/EOMI, other (MILD TO MODERATE NASAL CONGESTION) Neck: normal inspection Respiratory: respiratory distress, decreased breath sounds (DECREASED AERATION BILATERALLY), accessory muscle use, expiration, other (DIFFUSE INSPIRATORY AND EXPIRATORY WHEEZING ) Cardiovascular: no JVD, tachycardia Gastrointestinal: non tender, soft Extremities: pedal edema (1+ BILATERALLY WITH EXTENSIVE CHRONIC VENOUS STASIS CHAGES BILATERALLY. VARICOSE VEINS BILATERALLY) Neurologic/Psychiatric: nut roaster II-XII nml as tested, no motor/sensory deficits, alert, oriented x 3, other (ANXIOUS) Skin: normal color, warm/dry Progress/Results/Core Measures Suspected Sepsis Recent Fever Within 48 Hours: No Infection Criteria Present: Suspected New Infection New/Unexplained Altered Menta: No Sepsis Screen: No Definite Risk Sepsis Diagnosis: SIRS Temperature:97.0 Pulse: 124 Respiratory Rate: 24 Laboratory Tests 05/18/17 00:59: White Blood Count 11.5H Blood Pressure 157 /99 Mean: 138 Laboratory Tests 05/18/17 00:59: Creatinine 0.79, INR Comment 1.7H, Platelet Count 412H, Total Bilirubin 0.2 Results/Orders Lab Results Laboratory Tests Test 05/18/17 00:59 05/18/17 01:55 Range/Units White Blood Count 11.5 H 4.3-11.0 10^3/uL Red Blood Count 4.52 4.35-5.85 10^6/uL Hemoglobin 12.7 11.5-16.0 G/DL Hematocrit 37 35-52 % Mean Corpuscular Volume 81 80-99 FL Mean Corpuscular Hemoglobin 28 25-34 PG Mean Corpuscular Hemoglobin Concent 35 32-36 G/DL Red Cell Distribution Width 14.8 H 10.0-14.5 % Platelet Count 412 H 130-400 10^3/uL Mean Platelet Volume 8.7 7.4-10.4 FL Neutrophils (%) (Auto) 47 42-75 % Lymphocytes (%) (Auto) 42 12-44 % Monocytes (%) (Auto) 11 0-12 % Eosinophils (%) (Auto) 0 0-10 % Basophils (%) (Auto) 0 0-10 % Neutrophils # (Auto) 5.4 1.8-7.8 X 10^3 Lymphocytes # (Auto) 4.8 H 1.0-4.0 X 10^3 Monocytes # (Auto) 1.3 H 0.0-1.0 X 10^3 Eosinophils # (Auto) 0.0 0.0-0.3 10^3/uL Basophils # (Auto) 0.0 0.0-0.1 10^3/uL Prothrombin Time 20.2 H 12.2-14.7 SEC INR Comment 1.7 H 0.8-1.4 Activated Partial Thromboplast Time 29 24-35 SEC Sodium Level 147 H 135-145 MMOL/L Potassium Level 3.3 L 3.6-5.0 MMOL/L Chloride Level 109 H 98-107 MMOL/L Carbon Dioxide Level 25 21-32 MMOL/L Anion Gap 13 5-14 MMOL/L Blood Urea Nitrogen 17 7-18 MG/DL Creatinine 0.79 0.60-1.30 MG/DL Estimat Glomerular Filtration Rate > 60 BUN/Creatinine Ratio 22 Glucose Level 114 H 70-105 MG/DL Calcium Level 9.7 8.5-10.1 MG/DL Magnesium Level 2.3 1.8-2.4 MG/DL Total Bilirubin 0.2 0.1-1.0 MG/DL Aspartate Amino Transf (AST/SGOT) 18 5-34 U/L Alanine Aminotransferase (ALT/SGPT) 18 0-55 U/L Alkaline Phosphatase 80 40-136 U/L Troponin I < 0.30 <0.30 NG/ML B-Type Natriuretic Peptide 15.1 <100.0 PG/ML Total Protein 8.1 6.4-8.2 GM/DL Albumin 4.0 3.2-4.5 GM/DL Blood Gas Puncture Site L RAD Blood Gas Patient Temperature 98.0 Arterial Blood pH 7.28 *L 7.37-7.43 Arterial Blood Partial Pressure CO2 60 H 35-45 MMHG Arterial Blood Partial Pressure O2 57 L 79-93 MMHG Arterial Blood HCO3 28 H 23-27 MMOL/L Arterial Blood Total CO2 29.6 21.0-31.0 MMOL/L Arterial Blood Oxygen Saturation 87 L 94-100 % Arterial Blood Base Excess 1.6 -2.5-2.5 MMOL/L Papa Test YES-POS Blood Gas Ventilator Setting NO Blood Gas Inspired Oxygen 4L Micro Results Microbiology 05/18/17 Influenza Types A,B Antigen (JAIDA) - Final, Complete My Orders Orders - STEPHANIE ECKERT DO Saline Lock/Iv-Start (05/18/17 01:01) Ekg Tracing (05/18/17 01:01) O2 (05/18/17 01:01) Monitor-Rhythm Ecg Trace Only (05/18/17 01:01) Arterial Blood Gas (05/18/17 01:01) BNP (05/18/17 01:01) Cbc With Automated Diff (05/18/17 01:01) Comprehensive Metabolic Panel (05/18/17 01:01) Magnesium (05/18/17 01:01) Protime With Inr (05/18/17 01:01) Partial Thromboplastin Time (05/18/17 01:01) Troponin I (05/18/17 01:01) Blood Culture (05/18/17 01:01) Influenza A And B Antigens (05/18/17 01:01) Chest 1 View, Ap/Pa Only (05/18/17 01:01) Albuterol/Ipra Inhalation Soln (Duoneb I (05/18/17 01:15) Dexamethasone Injection (Decadron Inject (05/18/17 01:15) Rt Request For Service (05/18/17 01:01) Svn Sm Volume Nebulizer Rt-Rfs (05/18/17 01:01) Methylprednisolone Sod Succ (Solu-Medrol (05/18/17 02:00) Lorazepam Injection (Ativan Injection) (05/18/17 02:00) Ceftriaxone Injection (Rocephin Injectio (05/18/17 02:15) Medications Given in ED Current Medications Medications Dose Ordered Sig/Nahomi Route Start Time Stop Time Status Last Admin Dose Admin Albuterol/ Ipratropium 3 ml ONCE ONCE INH 05/18/17 01:15 05/18/17 01:16 DC 05/18/17 01:23 3 ML Ceftriaxone Sodium 1000 mg/ Sodium Chloride 50 ml @ 100 mls/hr ONCE ONCE IV 05/18/17 02:15 05/18/17 02:44 DC 05/18/17 03:10 100 MLS/HR Dexamethasone Sodium Phosphate 30 mg ONCE ONCE IH 05/18/17 01:15 05/18/17 01:16 DC 05/18/17 01:37 30 MG Lorazepam 2 mg ONCE ONCE IVP 05/18/17 02:00 05/18/17 02:01 DC 05/18/17 01:58 2 MG Methylprednisolone Sodium Succinate 125 mg ONCE ONCE IVP 05/18/17 02:00 05/18/17 02:01 DC 05/18/17 01:56 125 MG Vital Signs/I&O Vital Sign - Last 12Hours 05/18/17 05/18/17 05/18/17 05/18/17 00:53 01:07 01:24 01:38 Temp 98.3 Pulse 146 Resp 22 B/P (MAP) 172/121 (138) Pulse Ox 95 92 95 94 O2 Delivery Nasal Cannula Nasal Cannula Nasal Cannula Nasal Cannula O2 Flow Rate 4.00 4.00 05/18/17 02:06 Pulse 137 Resp 19 Pulse Ox 90 O2 Flow Rate 60.00 Capillary Refill : Less Than 3 Seconds Blood Pressure Mean: 138 Progress Note : Progress Note GAVE HOUR LONG NEB TREATMENT WITH INCREASING ANXIETY, AND INCREASING DYSPNEA AND NO SIGNIFICANT IMPROVEMENT IN WHEEZING. O2 SATS STILL 88-90% PT PLACED ON BIPAP AND GIVEN ATIVAN WITH IMPROVEMENT IN DYSPNEA AND DECREASED WHEEZING AND INCREASED O2 SATS TO MID TO UPPER 90'S ECG Initial ECG Impression Time: 01:13 Initial ECG Rate: 134 Initial ECG Rhythm: S.Tach Initial ECG Comparisson: Unchanged (EXCEPT FOR RATE) Diagnostic Imaging Comments CXR--COPD/CHRONIC CHANGES, NO ACUTE PROCESS, PENDING RADIOLOGIST REVIEW Reviewed: Reviewed by Me Critical Care Note Critical Care Total Time (minutes) 30 Departure Communication (Admissions) Progress Notes 0213--SPOKE WITH DR. LESTER, ACCEPTS PT FOR ADMIT Impression Impression: Primary Impression: COPD exacerbation Additional Impressions: Acute on chronic respiratory failure Hypokalemia Disposition: ADMITTED INPATIENT Condition: Improved Admissions Decision to Admit Reason: Admit from ER (General) Decision to Admit/Date: May 18, 2017 Time/Decision to Admit Time: 02:15 Departure-Patient Inst. Referrals: LEAH WOLF MD (PCP) Primary Care Physician ARIES FERRARO MD (Family) Primary Care Physician STEPHANIE ECKERT DO May 18, 2017 06:08
[2017-05-18] MEDS: RT-BUDESONIDE NEBS 0.5 MG/2ML (PULMICORT) AMP INH SCH ×2 (06:15→18:56)
[2017-05-18] MEDS: RT-ALBUTEROL/IPRATROPIUM 3 ML (DUONEB) VIAL INH SCH ×5 (06:15→22:46)
[2017-05-18 06:25] LABS: ANISOCYTOSIS SLIGHT; BAND NEUTROPHILS 1 %; BASOPHILS % (MANUAL) 0 %; EOSINOPHILS % (MANUAL) 0 %; LYMPHOCYTES % (MANUAL) 1 %; MONOCYTES % (MANUAL) 3 %; NEUTROPHILS % (MANUAL) 95 %
[2017-05-18 06:34] LABS: ALANINE AMINOTRANSFERASE 15 U/L (0-55); ALBUMIN 3.6 GM/DL (3.2-4.5); ALKALINE PHOSPHATASE 69 U/L (40-136); BILIRUBIN,TOTAL 0.2 MG/DL (0.1-1.0); BUN/CREATININE RATIO 23; CALCIUM 8.9 MG/DL (8.5-10.1); CARBON DIOXIDE 25 MMOL/L (21-32); CHLORIDE 110 MMOL/L (98-107); CREATININE SERUM 0.79 MG/DL (0.60-1.30); GFR ESTIMATED > 60; GLUCOSE 203 MG/DL (70-105); MAGNESIUM 1.9 MG/DL (1.8-2.4); PHOSPHORUS 1.9 MG/DL (2.3-4.7); POTASSIUM 3.4 MMOL/L (3.6-5.0); SODIUM 147 MMOL/L (135-145)
[2017-05-18] MEDS: methylPREDNISolone 125 MG (Solu-MEDROL) VIAL IV SCH ×3 (09:26→20:01)
--- NOTE | 2017-05-18 09:30 | Diagnostic Imaging Report ---
INDICATION: Cough and congestion x1 week. TECHNIQUE: Single-view chest at 01:23 a.m. CORRELATION STUDY: 04/19/2017. FINDINGS: The heart size, mediastinal configuration and pulmonary vascularity are within normal limits. Lung howard are hyperinflated. Mildly prominent interstitial markings. No infiltrate. No significant effusion or pneumothorax. IMPRESSION: 1. Changes of COPD. No definitive superimposed infiltrate. Dictated by: Dictated on workstation # [id number]
--- NOTE | 2017-05-18 09:31 | History & Physicial (CHS) ---
HPI History of Present Illness: 56 yo female presented to ER with shortness of breath starting yesterday evening. She has a history of COPD and history of PE/DVT as well as LETICIA. She had nasal polyps removed a month ago and has had nasal discharge since then. A week ago started having a cough with dark red sputum, but she attributed that to drainage from the nasal polyp removal and is using Neti pot to rinse. She feels her drainage is similar to what she usually has with sinus congestion/ drainage. She checked her SpO2 at home and was as low as 82% and tried essentially continuous nebulizer treatments which didn't help. She had some chest tightness with her cough, but no chest pain, fever or chills. She was already on prednisone because she saw ENT who had given her script for wheezing and she is on day 2 or 3 of that. Date seen by provider: May 18, 2017 Time Seen by Provider: 10:20 Attending Physician Prerna Barnard MD PCP Jay Rogers MD Consult Date of Admission May 18, 2017 at 2:15 am Home Medications Home Medications Reviewed patient Home Medication Reconciliation Form Allergies Coded Allergies: aspirin (Verified Allergy, Severe, ANAPHYLAXIS, 04/18/17) ibuprofen (Verified Allergy, Severe, ANAPHYLAXIS, 04/18/17) ketorolac (Verified Allergy, Severe, ANAPHYLAXIS, 04/18/17) tetanus and diphtheria toxoids (Unverified Allergy, Severe, ANAPHYLAXIS, 04/18/17) aloe (Verified Allergy, Mild, RASH, 04/18/17) latex (Verified Allergy, Mild, RASH, 04/18/17) OCCASIONALLY IS IRRITATING SKIN iodine (Verified Adverse Reaction, Unknown, 04/18/17) Patient states she got dizzy, diaphoretic and saw stars. Uncoded Allergies: ALOE VERA (Allergy, Unknown, 12/23/05) SILK SUTURES (Adverse Reaction, Unknown, BODY REJECTS SUTURES, 10/07/13) [id number] Hx Patient Social History Alcohol Use: Denies Use Recreational Drug Use: Yes (HISTORY OF IV DRUG USE-COCAINE--DENIES USE SINCE 1994) Drug of Choice: + IV COCAINE USE Smoking Status: Former Smoker (1 PPD, QUIT IN 1999) Former smoker/When Quit: May 13, 2002 Type Used: Cigarettes 2nd Hand Smoke Exposure: No Recent Foreign Travel: No Contact w/other who traveled: No Recent Hopitalizations: No Recent Infectious Disease Expo: No Physical Abuse Screen: No Sexual Abuse: No Immunizations Up To Date Tetanus Booster (TDap): Unknown Date of Pneumonia Vaccine: Sep 05, 2010 Date of Influenza Vaccine: Mar 11, 2012 Past Medical History PMHx: DVT/PE COPD/asthma Chronic sinusitis LETICIA PSurgHx: IVC filter placement Hysterectomy Shoulder and knee scopes x 2 EGD 2010 Family Medical History Significant Family History: Cancer, COPD, Vascular Disease Review of Systems ([facility]) Constitutional: No chills, No fever EENTM: see HPI Respiratory: see HPI Cardiovascular: No chest pain Reviewed Test Results Reviewed Test Results Lab Laboratory Tests Test 05/18/17 00:59 05/18/17 01:55 05/18/17 02:40 05/18/17 05:00 Range/Units White Blood Count 11.5 H 4.3-11.0 10^3/uL Red Blood Count 4.52 4.35-5.85 10^6/uL Hemoglobin 12.7 11.5-16.0 G/DL Hematocrit 37 35-52 % Mean Corpuscular Volume 81 80-99 FL Mean Corpuscular Hemoglobin 28 25-34 PG Mean Corpuscular Hemoglobin Concent 35 32-36 G/DL Red Cell Distribution Width 14.8 H 10.0-14.5 % Platelet Count 412 H 130-400 10^3/uL Mean Platelet Volume 8.7 7.4-10.4 FL Neutrophils (%) (Auto) 47 42-75 % Lymphocytes (%) (Auto) 42 12-44 % Monocytes (%) (Auto) 11 0-12 % Eosinophils (%) (Auto) 0 0-10 % Basophils (%) (Auto) 0 0-10 % Neutrophils # (Auto) 5.4 1.8-7.8 X 10^3 Lymphocytes # (Auto) 4.8 H 1.0-4.0 X 10^3 Monocytes # (Auto) 1.3 H 0.0-1.0 X 10^3 Eosinophils # (Auto) 0.0 0.0-0.3 10^3/uL Basophils # (Auto) 0.0 0.0-0.1 10^3/uL Prothrombin Time 20.2 H 12.2-14.7 SEC INR Comment 1.7 H 0.8-1.4 Activated Partial Thromboplast Time 29 24-35 SEC Sodium Level 147 H 135-145 MMOL/L Potassium Level 3.3 L 3.6-5.0 MMOL/L Chloride Level 109 H 98-107 MMOL/L Carbon Dioxide Level 25 21-32 MMOL/L Anion Gap 13 5-14 MMOL/L Blood Urea Nitrogen 17 7-18 MG/DL Creatinine 0.79 0.60-1.30 MG/DL Estimat Glomerular Filtration Rate > 60 BUN/Creatinine Ratio 22 Glucose Level 114 H 70-105 MG/DL Calcium Level 9.7 8.5-10.1 MG/DL Magnesium Level 2.3 1.8-2.4 MG/DL Total Bilirubin 0.2 0.1-1.0 MG/DL Aspartate Amino Transf (AST/SGOT) 18 5-34 U/L Alanine Aminotransferase (ALT/SGPT) 18 0-55 U/L Alkaline Phosphatase 80 40-136 U/L Troponin I < 0.30 <0.30 NG/ML B-Type Natriuretic Peptide 15.1 <100.0 PG/ML Total Protein 8.1 6.4-8.2 GM/DL Albumin 4.0 3.2-4.5 GM/DL Blood Gas Puncture Site L RAD R RAD R RAD Blood Gas Patient Temperature 98.0 97.6 97.8 Arterial Blood pH 7.28 *L 7.26 *L 7.37 7.37-7.43 Arterial Blood Partial Pressure CO2 60 H 62 H 43 35-45 MMHG Arterial Blood Partial Pressure O2 57 L 253 H 230 H 79-93 MMHG Arterial Blood HCO3 28 H 27 25 23-27 MMOL/L Arterial Blood Total CO2 29.6 29.2 26.2 21.0-31.0 MMOL/L Arterial Blood Oxygen Saturation 87 L 100 100 94-100 % Arterial Blood Base Excess 1.6 0.9 0.1 -2.5-2.5 MMOL/L Papa Test YES-POS YES-POS YES-POS Blood Gas Ventilator Setting NO YES YES Blood Gas Inspired Oxygen 4L BIPAP 60% FIO2 Test 05/18/17 05:10 Range/Units White Blood Count 10.1 4.3-11.0 10^3/uL Red Blood Count 4.12 L 4.35-5.85 10^6/uL Hemoglobin 11.7 11.5-16.0 G/DL Hematocrit 34 L 35-52 % Mean Corpuscular Volume 83 80-99 FL Mean Corpuscular Hemoglobin 28 25-34 PG Mean Corpuscular Hemoglobin Concent 34 32-36 G/DL Red Cell Distribution Width 14.8 H 10.0-14.5 % Platelet Count 376 130-400 10^3/uL Mean Platelet Volume 8.9 7.4-10.4 FL Neutrophils (%) (Auto) 94 H 42-75 % Lymphocytes (%) (Auto) 4 L 12-44 % Monocytes (%) (Auto) 2 0-12 % Eosinophils (%) (Auto) 0 0-10 % Basophils (%) (Auto) 0 0-10 % Neutrophils # (Auto) 9.4 H 1.8-7.8 X 10^3 Lymphocytes # (Auto) 0.4 L 1.0-4.0 X 10^3 Monocytes # (Auto) 0.2 0.0-1.0 X 10^3 Eosinophils # (Auto) 0.0 0.0-0.3 10^3/uL Basophils # (Auto) 0.0 0.0-0.1 10^3/uL Neutrophils % (Manual) 95 % Lymphocytes % (Manual) 1 % Monocytes % (Manual) 3 % Eosinophils % (Manual) 0 % Basophils % (Manual) 0 % Band Neutrophils 1 % Anisocytosis SLIGHT Sodium Level 147 H 135-145 MMOL/L Potassium Level 3.4 L 3.6-5.0 MMOL/L Chloride Level 110 H 98-107 MMOL/L Carbon Dioxide Level 25 21-32 MMOL/L Anion Gap 12 5-14 MMOL/L Blood Urea Nitrogen 18 7-18 MG/DL Creatinine 0.79 0.60-1.30 MG/DL Estimat Glomerular Filtration Rate > 60 BUN/Creatinine Ratio 23 Glucose Level 203 H 70-105 MG/DL Calcium Level 8.9 8.5-10.1 MG/DL Phosphorus Level 1.9 L 2.3-4.7 MG/DL Magnesium Level 1.9 1.8-2.4 MG/DL Total Bilirubin 0.2 0.1-1.0 MG/DL Aspartate Amino Transf (AST/SGOT) 13 5-34 U/L Alanine Aminotransferase (ALT/SGPT) 15 0-55 U/L Alkaline Phosphatase 69 40-136 U/L Total Protein 7.0 6.4-8.2 GM/DL Albumin 3.6 3.2-4.5 GM/DL Radiology 05/18 CXR: IMPRESSION: 1. Changes of COPD. No definitive superimposed infiltrate. Physical Exam-([facility]) Physical Exam Vital Signs VS - Last 72 Hours, by Label 05/18/17 05/18/17 05/18/17 05/18/17 00:53 01:07 01:24 01:38 Temp 98.3 Pulse 146 Resp 22 B/P (MAP) 172/121 (138) Pulse Ox 95 92 95 94 O2 Delivery Nasal Cannula Nasal Cannula Nasal Cannula Nasal Cannula O2 Flow Rate 4.00 4.00 05/18/17 05/18/17 05/18/17 05/18/17 02:06 03:25 03:40 03:45 Temp 97.0 Pulse 137 124 129 Resp 19 19 24 Pulse Ox 90 95 98 100 O2 Delivery NIV Bilevel NIV Bilevel O2 Flow Rate 60.00 60.00 FiO2 60 05/18/17 05/18/17 05/18/17 05/18/17 04:00 05:00 05:18 06:00 Pulse 122 112 124 110 Resp 17 15 18 B/P (MAP) 121/86 (98) 126/88 (101) 126/84 (98) Pulse Ox 99 100 100 99 O2 Delivery NIV Bilevel NIV Bilevel NIV Bilevel O2 Flow Rate 60.00 60.00 60.00 FiO2 60 05/18/17 05/18/17 05/18/17 05/18/17 06:15 06:25 06:36 07:00 Pulse 110 116 Resp 13 Pulse Ox 99 99 O2 Delivery OxyMask OxyMask O2 Flow Rate 60.00 5.00 5.00 05/18/17 05/18/17 05/18/17 05/18/17 08:59 09:18 10:25 13:00 Temp 97.7 98.4 Pulse 108 Resp 20 B/P (MAP) 129/73 (91) Pulse Ox 97 97 O2 Delivery Nasal Cannula Nasal Cannula Nasal Cannula Nasal Cannula O2 Flow Rate 4.00 4.00 4.00 4.00 Capillary Refill : Less Than 3 Seconds General Appearance: WD/WN, mild distress Respiratory: wheezing Cardiovascular: no murmur, tachycardia Gastrointestinal: normal bowel sounds, non tender, soft Extremities: no pedal edema Neurologic/Psychiatric: alert, normal mood/affect Skin: normal color, warm/dry Clinical Quality Measures DVT/VTE Risk/Contraindication: Risk Factor Score Per Nursin RFS Level Per Nursing on Admit: 4+=Very High Assessment/Plan Assessment/Plan (1) Acute on chronic respiratory failure Status: Acute Assessment & Plan: Respiratory acidosis with pH 7.2 on admission with hypercapnea and hypoxia, suspect due to COPD exacerbation. Resolution with Bipap overnight. Qualifiers: Qualified Codes: J96.21 - Acute and chronic respiratory failure with hypoxia ; J96.22 - Acute and chronic respiratory failure with hypercapnia (2) COPD exacerbation Status: Acute Assessment & Plan: Already on prednisone at home. Continue solumedrol 125 mg q6. RT treatments. Duoneb q4 and q2 prn. Continue pulmicort. On 2-3 lpm supplemental oxygen at home at night and with exertion. (3) Hypernatremia Status: Acute Assessment & Plan: Mild, encourage water intake, recheck. (4) History of pulmonary embolism Status: Chronic Assessment & Plan: On coumadin, IVC filter in place. INR subtherapeutic, start enoxaparin and continue home coumadin. (5) Hypokalemia Status: Acute Assessment & Plan: Replace and recheck (6) Nocturnal hypoxia Status: Chronic Assessment & Plan: On 2-3 lpm at home at night, reported history of LETICIA, could not tolerate titration study and reports repeat sleep study in 2017 recommended nocturnal oxygen but she did not believe pressure support was recommended. Was able to tolerate bipap last night, may need repeat sleep study. (7) DVT prophylaxis Status: Acute Assessment & Plan: On coumadin, will start enoxaparin until INR therapeutic PRERNA BARNARD MD May 18, 2017 9:31 am
[2017-05-18] MEDS ORDERED: MONT10TA24 PO (11:03)
[2017-05-18] MEDS ORDERED: DEXL60CA PO (11:03)
[2017-05-18] MEDS ORDERED: ENOX40DI8 SQ (11:03)
[2017-05-18] MEDS ORDERED: PRD20T PO (12:55)
[2017-05-18] MEDS ORDERED: ALPRAZolam 1 MG (XANAX) TAB PO PRN (13:00)
[2017-05-18] MEDS ORDERED: NON-FORMULARY MEDICATION 1 EA EA (Hyoscyamine Sulfate 0.125 MG) SL PRN (13:00)
[2017-05-18] MEDS ORDERED: HYDROcodone/APAP 10 MG/325 MG (LORTAB) TAB PO PRN (13:00)
[2017-05-18] MEDS ORDERED: HYOSCYAMINE 0.125 MG (LEVSIN) TAB SL PRN (13:15)
[2017-05-18] MEDS: ENOXAPARIN 100 MG/1 ML (LOVENOX) SYR SC SCH (15:02)
[2017-05-18] MEDS: inSUlin ASPART (NovoLOG) 1 UNIT/0.01 ML (CHARGE PER UNIT) SC SCH ×2 (15:38→21:50)
[2017-05-18] MEDS: warFARin 2 MG (COUMADIN) TAB PO SCH (17:53)
[2017-05-18] MEDS: MONTELUKAST 10 MG (SINGULAIR) TAB PO SCH (20:01)
[2017-05-19] VITALS: BP 131/79
[2017-05-19] MEDS: cefTRIAXone INJECTION 1,000 MG in NS (IVPB) 50 ML IV SCH (01:52)
[2017-05-19] MEDS: ENOXAPARIN 100 MG/1 ML (LOVENOX) SYR SC SCH (01:54)
[2017-05-19] MEDS: methylPREDNISolone 125 MG (Solu-MEDROL) VIAL IV SCH ×4 (02:00→21:18)
[2017-05-19] MEDS: RT-ALBUTEROL/IPRATROPIUM 3 ML (DUONEB) VIAL INH SCH ×6 (02:50→21:40)
[2017-05-19 04:00] VITALS: BP 128/71
[2017-05-19] MEDS ORDERED: NS (IVPB) 250 ML ONE (04:07)
[2017-05-19] MEDS ORDERED: AZITHROMYCIN 500 MG (ZITHROMAX) VIAL ONE (04:07)
[2017-05-19] MEDS: AZITHROMYCIN 500 MG/NS 250 ML IVPB IV SCH ×2 (04:13)
[2017-05-19] MEDS: inSUlin ASPART (NovoLOG) 1 UNIT/0.01 ML (CHARGE PER UNIT) SC SCH ×4 (06:05→21:19)
[2017-05-19] MEDS: PANTOPRAZOLE 40 MG (PROTONIX) TAB PO SCH (06:27)
[2017-05-19] MEDS: FUROSEMIDE 40 MG (LASIX) TAB PO SCH (06:27)
[2017-05-19] MEDS: RT-BUDESONIDE NEBS 0.5 MG/2ML (PULMICORT) AMP INH SCH ×2 (06:38→18:54)
[2017-05-19 06:51] LABS: INR 2.2 (0.8-1.4); PROTHROMBIN TIME PATIENT 24.6 SEC (12.2-14.7)
[2017-05-19 06:55] LABS: HEMOGLOBIN 11.9 G/DL (11.5-16.0); MEAN PLATELET VOLUME 9.5 FL (7.4-10.4); RED BLOOD COUNT 4.23 10^6/uL (4.35-5.85); RED CELL DISTRIBUTION WIDTH 14.9 % (10.0-14.5); WHITE BLOOD COUNT 8.7 10^3/uL (4.3-11.0)
[2017-05-19 07:18] LABS: BUN/CREATININE RATIO 19; CALCIUM 8.9 MG/DL (8.5-10.1); CARBON DIOXIDE 21 MMOL/L (21-32); CHLORIDE 105 MMOL/L (98-107); CREATININE SERUM 0.63 MG/DL (0.60-1.30); GFR ESTIMATED > 60; GLUCOSE 163 MG/DL (70-105); POTASSIUM 3.6 MMOL/L (3.6-5.0); SODIUM 140 MMOL/L (135-145)
[2017-05-19] MEDS: SALINE NASAL SPRAY (OCEAN) 45 ML BTL SCH ×4 (08:43→21:18)
[2017-05-19] MEDS: DILTIAZEM 120 MG (CARDIZEM CD) CAP PO SCH (08:43)
[2017-05-19] MEDS: LORATADINE (CLARITIN) 10 MG TAB PO SCH (08:43)
[2017-05-19 08:48] VITALS: BP 120/64
[2017-05-19] MEDS ORDERED: NON-FORMULARY MEDICATION 1 EA EA (Diltiazem HCl (Diltiazem ER) 120 MG) PO SCH (09:00)
[2017-05-19] MEDS ORDERED: NON-FORMULARY MEDICATION 1 EA EA (Fenofibrate Nanocrystallized (Fenofibrate) 145 MG) PO SCH (09:00)
[2017-05-19] MEDS ORDERED: NON-FORMULARY MEDICATION 1 EA EA (Dexlansoprazole (Dexilant) 60 MG) PO SCH (09:00)
[2017-05-19] MEDS ORDERED: NON-FORMULARY MEDICATION 1 EA EA (Furosemide 80 MG) PO SCH (09:00)
--- NOTE | 2017-05-19 09:35 | Progress Note (SOAP) ---
Subjective Subjective/Events-last exam Afebrile, able to stay on 4 lpm supplemental oxygen overnight. Review of Systems Date Seen by Provider: May 19, 2017 Time Seen by Provider: 06:05 Objective Exam Last Set of Vital Signs Vital Signs Date Time Temp Pulse Resp B/P (MAP) Pulse Ox O2 Delivery O2 Flow Rate FiO2 05/19/17 08:48 99.3 116 22 120/64 (82) 92 Nasal Cannula 4.00 05/18/17 05:18 60 Capillary Refill : Less Than 3 Seconds I&O Intake and Output 05/19/17 00:00 Intake Total 2960 ml Output Total 975 ml Balance 1985 ml Intake Oral 1660 ml IV Total 1300 ml Output Urine Total 975 ml # Voids 1 # Bowel Movements 2 Daily Weight Change No General: Alert, No Acute Distress Lungs: Normal Air Movement, Other (end expiratory wheeze anteriorly) Heart: Regular Rate, No Murmurs Neuro: Normal Speech Psych/Mental Status: Mental Status NL Results/Procedures Lab Laboratory Tests 05/18/17 15:25: Glucometer 132H 05/18/17 21:05: Glucometer 233H 05/19/17 05:30: Glucometer 168H 05/19/17 05:55: White Blood Count 8.7, Red Blood Count 4.23L, Hemoglobin 11.9, Hematocrit 38, Mean Corpuscular Volume 89, Mean Corpuscular Hemoglobin 28, Mean Corpuscular Hemoglobin Concent 32, Red Cell Distribution Width 14.9H, Platelet Count 361, Mean Platelet Volume 9.5, Prothrombin Time 24.6H, INR Comment 2.2H, Sodium Level 140, Potassium Level 3.6, Chloride Level 105, Carbon Dioxide Level 21, Anion Gap 14, Blood Urea Nitrogen 12, Creatinine 0.63, Estimat Glomerular Filtration Rate > 60, BUN/Creatinine Ratio 19, Glucose Level 163H, Calcium Level 8.9 Microbiology 05/18/17 Blood Culture - Preliminary, Resulted No growth 05/18/17 MRSA Screen - Final, Complete MRSA not isolated Radiology 05/18 CXR: IMPRESSION: 1. Changes of COPD. No definitive superimposed infiltrate. Assessment/Plan Assessment/Plan (1) Acute on chronic respiratory failure Status: Resolved Assessment & Plan: Respiratory acidosis with pH 7.2 on admission with hypercapnea and hypoxia, suspect due to COPD exacerbation. Resolution with Bipap overnight. Qualifiers: Qualified Codes: J96.21 - Acute and chronic respiratory failure with hypoxia ; J96.22 - Acute and chronic respiratory failure with hypercapnia (2) COPD exacerbation Status: Acute Assessment & Plan: Already on prednisone at home. Continue solumedrol 125 mg q6. RT treatments. Duoneb q4 and q2 prn. Continue pulmicort. On 2-3 lpm supplemental oxygen at home at night and with exertion. 05/19 improved, decrease solumedrol to q8 (3) Hypernatremia Status: Resolved Assessment & Plan: Mild, encourage water intake, recheck. (4) History of pulmonary embolism Status: Chronic Assessment & Plan: On coumadin, IVC filter in place. INR subtherapeutic, start enoxaparin and continue home coumadin. 05/19 INR 2.2, stop enoxaparin (5) Hypokalemia Status: Resolved (6) Nocturnal hypoxia Status: Chronic Assessment & Plan: On 2-3 lpm at home at night, reported history of LETICIA, could not tolerate titration study and reports repeat sleep study in 2017 recommended nocturnal oxygen but she did not believe pressure support was recommended. Was able to tolerate bipap night of admission, may need repeat sleep study. (7) DVT prophylaxis Status: Acute Assessment & Plan: On coumadin, will start enoxaparin until INR therapeutic Clinical Quality Measures DVT/VTE Risk/Contraindication: Risk Factor Score Per Nursin RFS Level Per Nursing on Admit: 4+=Very High PRERNA MAYFIELD MD May 19, 2017 09:35
[2017-05-19 12:00] VITALS: BP 121/67
[2017-05-19 16:00] VITALS: BP 112/59
[2017-05-19] MEDS: warFARin 2 MG (COUMADIN) TAB PO SCH (17:35)
[2017-05-19 19:45] VITALS: BP 109/58
[2017-05-19] MEDS ORDERED: FENOFIBRATE 134 MG (LOFIBRA) CAPSULE PO SCH (21:00)
[2017-05-19] MEDS: MONTELUKAST 10 MG (SINGULAIR) TAB PO SCH (21:17)
[2017-05-20 00:05] VITALS: BP 123/69
[2017-05-20] MEDS: cefTRIAXone INJECTION 1,000 MG in NS (IVPB) 50 ML IV SCH (01:46)
[2017-05-20] MEDS: RT-ALBUTEROL/IPRATROPIUM 3 ML (DUONEB) VIAL INH SCH ×3 (02:10→09:43)
[2017-05-20] MEDS: inSUlin ASPART (NovoLOG) 1 UNIT/0.01 ML (CHARGE PER UNIT) SC SCH ×2 (05:39→11:19)
[2017-05-20] MEDS: FUROSEMIDE 40 MG (LASIX) TAB PO SCH (06:48)
[2017-05-20] MEDS: PANTOPRAZOLE 40 MG (PROTONIX) TAB PO SCH (06:48)
[2017-05-20] MEDS: methylPREDNISolone 125 MG (Solu-MEDROL) VIAL IV SCH ×2 (06:48→14:05)
[2017-05-20 07:12] LABS: INR 2.5 (0.8-1.4); PROTHROMBIN TIME PATIENT 26.8 SEC (12.2-14.7)
--- NOTE | 2017-05-20 07:44 | Discharge Summary ---
Diagnosis/Chief Complaint Date of Admission May 18, 2017 at 02:15 Date of Discharge May 20, 2017 Discharge Date: May 20, 2017 Discharge Time: 15:00 Admission Diagnosis Admission Diagnosis (1) Acute on chronic respiratory failure (2) COPD exacerbation (3) Hypernatremia (4) History of pulmonary embolism (5) Hypokalemia (6) Nocturnal hypoxia (7) DVT prophylaxis Discharge Diagnosis (1) Acute on chronic respiratory failure Status: Resolved Assessment & Plan: Respiratory acidosis with pH 7.2 on admission with hypercapnea and hypoxia, suspect due to COPD exacerbation. Resolution with Bipap overnight. Qualifiers: Qualified Codes: J96.21 - Acute and chronic respiratory failure with hypoxia ; J96.22 - Acute and chronic respiratory failure with hypercapnia (2) COPD exacerbation Status: Acute Assessment & Plan: Already on prednisone at home. Continue solumedrol 125 mg q6. RT treatments. Duoneb q4 and q2 prn. Continue pulmicort. On 2-3 lpm supplemental oxygen at home at night and with exertion. 05/19 improved, decrease solumedrol to q8 (3) Hypernatremia Status: Resolved Assessment & Plan: Mild, encourage water intake, recheck. (4) History of pulmonary embolism Status: Chronic Assessment & Plan: On coumadin, IVC filter in place. INR subtherapeutic, start enoxaparin and continue home coumadin. 05/19 INR 2.2, stop enoxaparin (5) Hypokalemia Status: Resolved (6) Nocturnal hypoxia Status: Chronic Assessment & Plan: On 2-3 lpm at home at night, reported history of LETICIA, could not tolerate titration study and reports repeat sleep study in 2017 recommended nocturnal oxygen but she did not believe pressure support was recommended. Was able to tolerate bipap night of admission, may need repeat sleep study. (7) DVT prophylaxis Status: Acute Assessment & Plan: On coumadin, will start enoxaparin until INR therapeutic Reason Hospital Visit 56 yo female presented to ER with shortness of breath starting yesterday evening. She has a history of COPD and history of PE/DVT as well as LETICIA. She had nasal polyps removed a month ago and has had nasal discharge since then. A week ago started having a cough with dark red sputum, but she attributed that to drainage from the nasal polyp removal and is using Neti pot to rinse. She feels her drainage is similar to what she usually has with sinus congestion/ drainage. She checked her SpO2 at home and was as low as 82% and tried essentially continuous nebulizer treatments which didn't help. She had some chest tightness with her cough, but no chest pain, fever or chills. She was already on prednisone because she saw ENT who had given her script for wheezing and she is on day 2 or 3 of that. Discharge Summary Hospital Course Hospital Course Patient was admitted through emergency department on May 17 during the evening after evaluation for acute exacerbation of asthma. She was admitted initially to the ICU with intensive monitoring of her cardiopulmonary status. Patient received albuterol breathing treatments as well as BiPAP. She also received Solu-Medrol 125 mg every 6 hours upon admission. ED physician had started patient on IV Zithromax as well as IV ceftriaxone. In the morning of May 18, 2017 patient was transferred to [facility] floor following improvement of her respiratory status and weaning off BiPAP. She was continued on IV ceftriaxone however the Zithromax was discontinued. Her chest x-ray on admission did not reveal infiltrates. Her clinical condition improved and she the Solu-Medrol was tapered to every 8 hours at 125 mg on May 19, 2017. She continued to be afebrile with stable vital signs. She does utilize nasal cannula oxygen at home and she was maintained on this during the course of her stay on [facility]. By the morning of May 20, 2017 patient reported she was feeling much better and was eager for dismissal to home. She is aware of prednisone tapering and this will be given to her on dismissal. She had all questions answered today. Labs Laboratory Tests 05/18/17 00:59: White Blood Count 11.5H, Red Cell Distribution Width 14.8H, Platelet Count 412H , Lymphocytes # (Auto) 4.8H, Monocytes # (Auto) 1.3H, Prothrombin Time 20.2H, INR Comment 1.7H, Sodium Level 147H, Potassium Level 3.3L, Chloride Level 109H, Glucose Level 114H 05/18/17 01:55: Arterial Blood pH 7.28*L, Arterial Blood Partial Pressure CO2 60H, Arterial Blood Partial Pressure O2 57L, Arterial Blood HCO3 28H, Arterial Blood Oxygen Saturation 87L 05/18/17 02:40: Arterial Blood pH 7.26*L, Arterial Blood Partial Pressure CO2 62H, Arterial Blood Partial Pressure O2 253H 05/18/17 05:00: Arterial Blood Partial Pressure O2 230H 05/18/17 05:10: Red Blood Count 4.12L, Hematocrit 34L, Red Cell Distribution Width 14.8H, Neutrophils (%) (Auto) 94H, Lymphocytes (%) (Auto) 4L, Neutrophils # (Auto) 9.4H , Lymphocytes # (Auto) 0.4L, Sodium Level 147H, Potassium Level 3.4L, Chloride Level 110H, Glucose Level 203H, Phosphorus Level 1.9L 05/18/17 15:25: Glucometer 132H 05/18/17 21:05: Glucometer 233H 05/19/17 05:30: Glucometer 168H 05/19/17 05:55: Red Blood Count 4.23L, Red Cell Distribution Width 14.9H, Prothrombin Time 24.6H , INR Comment 2.2H, Glucose Level 163H 05/19/17 11:23: Glucometer 169H 05/19/17 16:13: Glucometer 222H 05/19/17 21:01: Glucometer 188H 05/20/17 05:30: Glucometer 181H 05/20/17 06:12: Prothrombin Time 26.8H, INR Comment 2.5H Procedures None. Discharge Physical Examination Allergies: Coded Allergies: aspirin (Verified Allergy, Severe, ANAPHYLAXIS, 04/18/17) ibuprofen (Verified Allergy, Severe, ANAPHYLAXIS, 04/18/17) ketorolac (Verified Allergy, Severe, ANAPHYLAXIS, 04/18/17) tetanus and diphtheria toxoids (Unverified Allergy, Severe, ANAPHYLAXIS, 04/18/17) aloe (Verified Allergy, Mild, RASH, 04/18/17) latex (Verified Allergy, Mild, RASH, 04/18/17) OCCASIONALLY IS IRRITATING SKIN iodine (Verified Adverse Reaction, Unknown, 04/18/17) Patient states she got dizzy, diaphoretic and saw stars. Uncoded Allergies: ALOE VERA (Allergy, Unknown, 12/23/05) SILK SUTURES (Adverse Reaction, Unknown, BODY REJECTS SUTURES, 10/07/13) Vitals & I&Os Vital Signs Date Time Temp Pulse Resp B/P (MAP) Pulse Ox O2 Delivery O2 Flow Rate FiO2 05/20/17 02:10 94 Nasal Cannula 2.50 05/20/17 00:05 98.1 86 18 123/69 (87) 05/18/17 05:18 60 General Appearance: No Acute Distress Respiratory: Other (Overall clear but she does have expiratory wheezing mild in apical regions) Cardiovascular: Regular Rate Abdominal: Soft Extremities: Other (Slight edema of the left lower extremity due to her chronic venous insufficiency) Neuro: Normal Speech Discharge Home Medications Reviewed and agree with Discharge Medication list on patient's Discharge Instruction sheet Instructions to Patient/Family Please see electronic discharge instructions given to patient. Clinical Quality Measures DVT/VTE Risk/Contraindication: Risk Factor Score Per Nursin RFS Level Per Nursing on Admit: 4+=Very High LEAH WOLF MD May 20, 2017 07:44
[2017-05-20 08:00] VITALS: BP 145/76
[2017-05-20] MEDS: DILTIAZEM 120 MG (CARDIZEM CD) CAP PO SCH (09:38)
[2017-05-20] MEDS: LORATADINE (CLARITIN) 10 MG TAB PO SCH (09:39)
[2017-05-20] MEDS: SALINE NASAL SPRAY (OCEAN) 45 ML BTL SCH ×2 (09:39→13:00)
[2017-05-20] MEDS: RT-BUDESONIDE NEBS 0.5 MG/2ML (PULMICORT) AMP INH SCH (09:43)
--- NOTE | 2017-05-20 11:15 | Discharge Inst-Simple/Standard ---
Discharge Inst-Standard Discharge Medications New, Converted or Re-Newed RX: Transmitted to Pharmacy (via the office) Patient Instructions/Follow Up Plan of Care/Instructions/FU: within the week with Dr Wolf Activity as Tolerated: Yes Discharge Diet: Low Sodium Diet, Avoid Fatty Foods Return to The Hospital For: Sustained fever, difficulty breathing, hypoxemia Planned Outpatient Orders/Ref. Pneu Vac Indicated: Yes LEAH WOLF MD May 20, 2017 11:15
[2017-05-20 14:33] VITALS: BP 145/76
== END 2017-05-20 14:33 | disposition home or self-care (01) | DRG 189 ==
LOC: EDUNIT# 00:52 → ER 00:53 → ICU 02:15 → 4TH 13:35 → EDPENDDISTM 05-20 12:00
PROVIDERS: ADMIT Family Medicine; ATTEND Family Medicine
DX: J96.21 Acute and chronic respiratory failure with hypoxia (principal); J96.22 Acute and chronic respiratory failure with hypercapnia; J45.901 Unspecified asthma with (acute) exacerbation; J43.9 Emphysema, unspecified; E87.0 Hyperosmolality and hypernatremia; K21.9 Gastro-esophageal reflux disease without esophagitis; E78.00 Pure hypercholesterolemia, unspecified; I10 Essential (primary) hypertension; I73.9 Peripheral vascular disease, unspecified; M19.91 Primary osteoarthritis, unspecified site; K59.09 Other constipation; F41.9 Anxiety disorder, unspecified; I83.93 Asymptomatic varicose veins of bilateral lower extremities; E87.6 Hypokalemia; G47.33 Obstructive sleep apnea (adult) (pediatric); J32.9 Chronic sinusitis, unspecified; R73.03 Prediabetes; Z79.01 Long term (current) use of anticoagulants; Z87.891 Personal history of nicotine dependence; Z86.711 Personal history of pulmonary embolism; Z86.718 Personal history of other venous thrombosis and embolism
CPT/HCPCS: 36415; 71045; 80048; 80053; 82805; 82962; 83735; 83880; 84100; 84484; 85007; 85025; 85027; 85610; 85730; 87040; 87081; 87804; 93005; 93041; 94640; 94660; 94760

== ENCOUNTER → 2017-05-22 | Outpatient (CLI) | payer MEDICAID ==
[~2017-05-22] MED LIST changes: +ENOX40DI8 SQ
== END ==
LOC: WOUNDCARE 14:09
PROVIDERS: ATTEND Surgery
DX: I87.332 Chronic venous hypertension (idiopathic) with ulcer and inflammation of left lower extremity (principal); L97.222 Non-pressure chronic ulcer of left calf with fat layer exposed; I87.321 Chronic venous hypertension (idiopathic) with inflammation of right lower extremity; I89.0 Lymphedema, not elsewhere classified
CPT/HCPCS: 11042

== ENCOUNTER → 2017-05-29 | Outpatient (CLI) | payer MEDICAID | LOC: WOUNDCARE 08:11 | PROVIDERS: ATTEND Surgery | DX: I87.332 Chronic venous hypertension (idiopathic) with ulcer and inflammation of left lower extremity (principal); L97.222 Non-pressure chronic ulcer of left calf with fat layer exposed; I87.321 Chronic venous hypertension (idiopathic) with inflammation of right lower extremity; I89.0 Lymphedema, not elsewhere classified | CPT/HCPCS: 11042 ==

== ENCOUNTER 2017-05-30 11:00 | Outpatient (CLI) | payer MEDICAID ==
[~2017-05-30] VITALS: Ht 162.6 cm; Wt 91.6 kg
== END 2017-05-30 11:12 ==
LOC: PREOP 11:00
PROVIDERS: ATTEND Orthopaedic Surgery
DX: M23.8X2 Other internal derangements of left knee (principal); Z01.818 Encounter for other preprocedural examination; Z88.6 Allergy status to analgesic agent; Z88.7 Allergy status to serum and vaccine

== ENCOUNTER 2017-06-04 10:00 | Outpatient (RCR) | payer MEDICAID ==
[~2017-06-04 10:00] MED LIST changes: -ALBU2.5V4 IH
[2017-06-05] MEDS ORDERED: DILT-8 PO (08:15)
[2017-06-05] MEDS ORDERED: CALC-901 PO (08:15)
[2017-06-05] MEDS ORDERED: ALBU2.5V4 NEB (08:15)
[2017-06-05] MEDS ORDERED: ENOX40DI8 INJ (08:21)
== END 2017-06-23 | disposition home or self-care (01) ==
LOC: PULM 10:00
PROVIDERS: ATTEND Family Medicine
DX: J44.1 Chronic obstructive pulmonary disease with (acute) exacerbation (principal)
CPT/HCPCS: 99211

== ENCOUNTER 2017-06-05 06:50 | Day surgery (SDC) | payer MEDICAID ==
--- NOTE | 2017-05-28 15:11 | HISTORY AND PHYSICAL ---
DATE OF SERVICE: CHIEF COMPLAINT: Left knee pain, swelling and popping. HISTORY OF PRESENT ILLNESS: This is a 56-year-old female who has a several month history of left knee pain, swelling and popping. The patient reports a past history of right knee problems. She states, however, that she injured her left knee this past summer while playing with her grandchildren. She had an MRI from [facility] which showed a posterior horn medial meniscus tear. The patient was treated with physical therapy, cortisone injections and has continued to struggle symptomatically. She reports difficulty with activities of daily living due to the symptoms because of various other health problems including a recent nasal polyp and kidney stone treatment. She has postponed the elective knee surgery until now. She does have a past history of a DVT as well. REVIEW OF SYSTEMS: Negative for chest pain, dysuria or shortness of breath. She denies nasal drainage, difficulty swallowing, abdominal pain or headache. PAST MEDICAL HISTORY: Asthma, hypertension, COPD and sleep apnea as well as the aforementioned DVT. PAST SURGICAL HISTORY: Includes abdominal hysterectomy, tonsillectomy, x2, shoulder arthroscopy, knee arthroscopy, D and C, elbow arthroscopy, EGD with biopsy and placement of trapezius vena cava filter. SOCIAL HISTORY: Negative for tobacco or alcohol use. She does have three children and is . FAMILY HISTORY: Includes cancer, hypercholesterolemia, hypertension. Her primary care provider is Dr. Jay Rogers. CURRENT MEDICATIONS: Alprazolam, hyoscyamine sulfate, Ogden 7.5, ipratropium bromide, Jantoven, Klor-Con, loratadine, Lovenox, pantoprazole, Singulair, Lasix, diltiazem, Tricor, Bumex, promethazine and ProAir inhaler. ALLERGIES: Include ASPIRIN, IBUPROFEN, IODINE, TORADOL ALOE TETANUS AND KETOROLAC. PHYSICAL EXAMINATION: GENERAL: Reveals an otherwise healthy atraumatic female, well nourished and in no acute distress. HEENT: Eye examination reveals sclerae are anicteric. Pupils equal, round and reactive to light. ENT shows moist mucous membranes and otherwise unremarkable. Ear canals clear. LYMPHATICS: Otherwise negative. NECK: Supple throughout with full active range of motion of the cervical spine. ABDOMEN: Soft, nontender, nondistended, no palpable masses. LUNGS: Reveals clear, breath sounds in all howard bilaterally with good thoracic excursion noted. HEART: Reveals regular rate and rhythm. No murmurs, gallops or thrills noted. SKIN: Clear throughout with no rashes noted. NEUROLOGIC: Revealed alert and oriented x3. MUSCULOSKELETAL: Revealed a mild effusion of left knee. Range of motion 0/0/120. She has a negative Kaz, negative anterior drawer, negative posterior drawer. No varus or valgus laxity is noted. Negative pivot shift. She does have tenderness throughout the medial joint line and had marked pain reproduced medially with Chary's. Crepitus was noted with patellar compression and passive range of motion and mild pain is reproduced with patellar loading. A Parekh's cyst is palpable posteriorly, but nontender. ASSESSMENT: Acute care medial meniscus, left knee with chondromalacia. PLAN: To proceed with a left knee arthroscopy, partial medial meniscectomy and chondroplasty. The risks, benefits, options and medications and recovery were discussed at length with the patient. She verbalizes understanding and wishes to proceed. Again there is no outpatient surgery scheduled for 06/05/2017. This may possibly be a 23-hour admission actually. Job ID: [id number] DocumentID: [id number] Dictated Date: 05/28/2017 13:42:22 Keno Writer Date: 05/28/2017 14:21:17 Dictated By: MYRA CARBAJAL
[~2017-06-05] VITALS: Ht 162.6 cm; Wt 91.6 kg
[2017-06-05 06:55] VITALS: BP 132/108
[2017-06-05] MEDS ORDERED: FAMOTIDINE 20MG/2ML IV (PEPCID) IV ONE ×2 (07:30→07:45)
[2017-06-05] MEDS ORDERED: MIDAZOLAM 2 MG/2 ML (VERSED) VIAL IV ONE (07:30)
[2017-06-05] MEDS ORDERED: ONDANSETRON 4 MG/2 ML (SDV) Z0FRAN IV ONE ×2 (07:30→07:45)
[2017-06-05] MEDS ORDERED: LACTATED RINGERS 1,000 ML IV PRN (07:32)
--- NOTE | 2017-06-05 07:32 | Progress Note-Pre Operative ---
Pre-Operative Progress Note H&P Reviewed The H&P was reviewed, patient examined and no changes noted. Date Seen by Provider: Jun 05, 2017 Time Seen by Provider: 07:31 Date H&P Reviewed: Jun 05, 2017 Time H&P Reviewed: 07:31 Pre-Operative Diagnosis: left knee medial meniscus tear and chondromalacia HOWARD HUGHES MD Jun 05, 2017 07:32
--- NOTE | 2017-06-05 07:33 | Progress Note-Post Operative ---
Post-Operative Progess Note Surgeon (s)/Training Program Assistant (s) Surgeon HOWARD HUGHES MD Training Program Assistant: brice Angeles Pre-Operative Diagnosis left knee medial meniscus tear and chondromalacia Post-Operative Diagnosis left knee medial meniscus tear and chondromalacia of the medial femoral condyle, medial tibial plateau, lateral tibial plateau, patella and trochlea Procedure & Operative Findings Date of Procedure 06/05/17 Procedure Performed/Findings left knee arthroscopic partial medial meniscectomy and chondroplasty of the medial femoral condyle, medial tibial plateau, lateral tibial plateau, patella and trochlea Anesthesia Type GETA Estimated Blood Loss Estimated blood loss (mL): minimal Specimens/Packing Specimens Removed none Packing: none HOWARD HUGHES MD Jun 05, 2017 07:33
[2017-06-05] MEDS ORDERED: proPOfol 200 MG/20 ML (DIPRIVAN) VIAL IV ONE (07:35)
[2017-06-05] MEDS ORDERED: LIDOCAINE PF 2% 5 ML (XYLOCAINE) VIAL ONE (07:35)
[2017-06-05] MEDS ORDERED: fentaNYL INJECTION 100 MCG/2 ML AMP ONE (07:35)
[2017-06-05] MEDS ORDERED: SEVOFLURANE (ULTANE) 15 ML INHAL SOLN ONE ×3 (07:37→09:16)
[2017-06-05 07:38] LABS: INR 2.7 (0.8-1.4); PROTHROMBIN TIME PATIENT 28.4 SEC (12.2-14.7)
[2017-06-05] MEDS ORDERED: ceFAZolin INJECTION 1,000 MG in NS (IVPB) 50 ML IV ONE (07:45)
[2017-06-05] MEDS ORDERED: ONDANSETRON 4 MG/2 ML (SDV) Z0FRAN ONE ×2 (07:57→10:07)
[2017-06-05] MEDS ORDERED: FAMOTIDINE 20MG/2ML IV (PEPCID) ONE (07:57)
[2017-06-05] MEDS ORDERED: BUPIVACAINE 0.25% 30 ML (SENSORCAINE) VIAL ONE (08:06)
[2017-06-05] MEDS ORDERED: morphine PF (DURAMORPH) 10 MG/10 ML AMP ONE (08:07)
[2017-06-05] MEDS ORDERED: CALC-901 PO (08:15)
[2017-06-05] MEDS ORDERED: DILT-8 PO (08:15)
[2017-06-05] MEDS ORDERED: ALBU2.5V4 NEB (08:15)
[2017-06-05] MEDS ORDERED: CEFAZOLIN IV ONE ×2 (08:15)
[2017-06-05] MEDS ORDERED: DEXTROSE IV ONE ×2 (08:15)
[2017-06-05] MEDS ORDERED: ENOX40DI8 INJ (08:21)
[2017-06-05] MEDS ORDERED: morphine INJ 10 MG/ML 1ML (SYR OR VIAL) IVP PRN (09:30)
[2017-06-05] MEDS ORDERED: MEPERIDINE (DEMEROL) INJ 50 MG/ML IVP PRN (10:00)
[2017-06-05] MEDS ORDERED: ALPRAZolam 1 MG (XANAX) TAB PO PRN (11:45)
[2017-06-05] MEDS ORDERED: RT-ALBUTEROL HFA (VENTOLIN) PER PUFF IH PRN (11:45)
[2017-06-05] MEDS ORDERED: RT-ALBUTEROL SULF 2.5 MG/3 ML PRE-MIX VIAL IH PRN (11:45)
[2017-06-05] MEDS ORDERED: PATIENT MAY USE OWN MEDS, ALL MC SCH (11:45)
[2017-06-05 12:00] VITALS: BP 125/71
[2017-06-05] MEDS: oxyCODONE/APAP 5/325MG (PERCOCET 5) TABLET PO PRN ×5 (12:26→21:58)
[2017-06-05] MEDS: fentaNYL INJECTION 100 MCG/2 ML AMP IVP PRN ×4 (12:26→19:06)
[2017-06-05] MEDS ORDERED: HYOSCYAMINE 0.125 MG (LEVSIN) TAB SL PRN (13:15)
[2017-06-05] MEDS: ONDANSETRON 4 MG/2 ML (SDV) Z0FRAN IVP PRN (13:31)
[2017-06-05] MEDS: KCL 10 MEQ TAB (MICRO K) PO SCH ×2 (13:32→20:49)
--- NOTE | 2017-06-05 14:16 | Physical Therapy Ortho Eval ---
PT Orthopedic Evaluation Type of Surgery Knee Scope Prior Level of Function Current Living Status: Other Family Locomotion (Upon Admit): Independent Subjective Subjective Reports she is staying over 1 night due to past day surgical experiences and need for assist. Her cousin reports she will be staying with her. Entry Into Home: Stairs With Railing Steps Into Home: 3 Motor Control Motor Control: Motor Control WNL ROM ROM: WFL, except focal deficit left knee flexion to 60 degrees Strength Strength: Gen Weak,No Focal Deficit left quad is weaker than the right and scored at 3/5 Transfer Transfers (B, C, W/C) (FIM): 5 Gait Gait Assistive Device: FWW Right Lower Extremity: Right Left Lower Extremity: Left Weight Bearing Status LLE: Weight Bearing/Tolerated Gait (FIM): 5 Distance (FIM): 3=150 ft Gait Level of Assist: 5 Summary/Comments Slightly antalgic and slowed andreas. Pt using FWW today but would like to use a cane at discharge. Treatment Rendered Treatment: Therapeutic Exercises, Gait Train Exercise Instruction: Quad Sets, Straight Leg Raise, Heel Slides Education on performance of HEP and provided pics of HEP> Assessment/Goals Goal Time Frame: 1-2 additional visits Understands HEP: Yes Safe Ambulation: Yes Plan to see pt 1-2 times more before discharge to progress to cane for ambulation. Will assess exercises as well. Plan Treatment Plan: Education, Gait Treatment Duration: 1-2 days Visits Per Week: 5-6 PT/Family Agrees to Plan: Yes Time Time In: 1100 Time Out: 1132 Total Billed Treatment Time: 32 Billed Treatment Time visit EVM 15 FA 17 PT/OT Therapy GCodes Therapy Functional Limitation: Physical Therapy Test(s)/Tool used to determine: Level of Assistance Scale Functional Limitation-Current Charge Code: MOBCUR Modifier: CJ Functional Limitation-Goal Charge Code: MOBGOAL Modifier: CI Functional Limitation-D/C Charge Codes: MOBORESTES REDDY PT Jun 05, 2017 14:16
--- NOTE | 2017-06-05 14:54 | OPERATIVE REPORT ---
DATE OF SERVICE: 06/05/2017 PREOPERATIVE DIAGNOSES: 1. Left knee medial meniscus tear. 2. Left knee chondromalacia of the patella. 3. Left knee chondromalacia of the trochlea. 4. Left knee chondromalacia of the medial femoral condyle. POSTOPERATIVE DIAGNOSES: 1. Left knee medial meniscus tear. 2. Left knee chondromalacia of the patella. 3. Left knee chondromalacia of the trochlea. 4. Left knee chondromalacia of the medial femoral condyle. 5. Left knee chondromalacia of the medial tibial plateau and then left knee chondromalacia of the lateral tibial plateau. PROCEDURES: 1. Left knee arthroscopic partial medial meniscectomy. 2. Left knee arthroscopic chondroplasty of the medial femoral condyle. 3. Left knee arthroscopic chondroplasty of the medial tibial plateau. 4. Left knee arthroscopic chondroplasty of the lateral tibial plateau. 5. Left knee arthroscopic chondroplasty of the patella. 6. Left knee arthroscopic chondroplasty of the trochlea. SURGEON: Ubaldo Hughes MD GEARCASE ASSEMBLER: MYRA Weathers, who assisted throughout the procedure and closed the incisions. ANESTHESIA: General endotracheal by Chris Zamorano CRNA. TOURNIQUET TIME: Not applicable. ESTIMATED BLOOD LOSS: Minimal. DRAINS: None. COMPLICATIONS: None. POSTOPERATIVE PLAN: Routine arthroscopy protocol. The patient was transferred to recovery room awake and stable condition. STATEMENT OF MEDICAL NECESSITY: The patient is a 56-year-old female with complaints of left knee pain, catching, locking and swelling. She is tender along the medial joint line. She had pain medially with Chary's. She also had patellofemoral crepitus and pain with patellar loading. It was felt that she likely had a medial meniscal tear with associated chondromalacia and due to functional impairment and failure to improve with conservative measures, the patient elected to proceed with surgical intervention. Examination under anesthesia revealed range of motion of 0/2/135 with a negative Kaz, negative anterior and posterior drawer. No varus valgus laxity, negative pivot shift. Arthroscopic findings, the patella demonstrated grade II chondral flap centrally and a 15 x 15 area. The trochlea demonstrated grade III chondral flaps superiorly and a 10 x 15 area. The medial and lateral gutters were clear. The lateral compartment demonstrated grade II chondral flaps of the posterior portion of the tibial plateau and an 8 x 8 area. The lateral meniscus was intact. The ACL and PCL were intact. The medial compartment demonstrated a radial tear of the posterior horn of the medial meniscus involving approximately 20% in the posterior horn. In addition, grade II chondral flaps and adjacent areas of the femoral condyle and tibial plateau and a 15 x 15 area. DESCRIPTION OF PROCEDURE: After risks and benefits of procedure were discussed and questions were answered, an informed consent was signed and placed on chart. The operative site was confirmed in the preoperative holding area initialed by the surgeon. The patient was then transported to the operating room and after adequate levels of general endotracheal anesthetic were obtained, a timeout was called confirming the operative site. Examination under anesthesia was performed with above findings noted. The left lower extremity was then prepped and draped in the usual sterile fashion. The knee joint was injected with 60 mL of fluid. Standard inferior lateral portals placed with the arthroscope under visualization, inferior medial portal was created. The menisci and cruciates were carefully probed with the above findings noted. The unstable chondral flaps on the patella and trochlea were debrided and shaved back to a stable edge. The scope was then redirected into the medial compartment. The unstable chondral flaps of the medial femoral condyle and medial tibial plateau were debrided with shaver back to a stable edge and the posterior horn of the medial meniscus was debrided shaved back to a stable edge. This was carefully probed with no further tearing noted. Scope was redirected into the lateral compartment and several chondral flaps in the lateral tibial plateau were re-shaved back to a stable edge. The knee was copiously irrigated. The portal sites closed with 4-0 nylon in simple interrupted fashion. Knee was injected with Duramorph. Port sites were infiltrated with plain Marcaine. A soft dressing was applied. The patient was transferred to the recovery room awake and in stable condition. Job ID: [id number] DocumentID: [id number] Dictated Date: 06/05/2017 09:26:46 Laboratory Supervisor Date: 06/05/2017 13:15:13 Dictated By: UBALDO HUGHES MD
[2017-06-05] MEDS: RT-ALBUTEROL SULF 2.5 MG/3 ML PRE-MIX VIAL IH SCH ×2 (15:27→19:38)
[2017-06-05] MEDS: RT-IPRATROPIUM (ATROVENT) 0.5MG/2.5ML AMP IH SCH ×2 (15:27→19:38)
[2017-06-05 16:00] VITALS: BP 115/75
[2017-06-05] MEDS ORDERED: INFLUENZA TRIvalent 2017-2018 0.5 ML/45 MCG SYR IM ONE (19:15)
[2017-06-05 20:00] VITALS: BP 127/58
[2017-06-05] MEDS: CALCIUM CARB + VIT D 600 MG (CALCARB + D) TAB PO SCH (20:50)
[2017-06-05] MEDS ORDERED: MONTELUKAST 10 MG (SINGULAIR) TAB PO SCH (21:00)
[2017-06-06] VITALS: BP 129/84
[2017-06-06] MEDS: oxyCODONE/APAP 5/325MG (PERCOCET 5) TABLET PO PRN (00:22)
[2017-06-06] MEDS: HYDROcodone/APAP 7.5 MG/325 MG (LORTAB, LORCET PLUS) TABLET PO PRN ×3 (01:57→09:26)
[2017-06-06 03:47] VITALS: BP 119/75
[2017-06-06] MEDS: ONDANSETRON 4 MG/2 ML (SDV) Z0FRAN IVP PRN ×2 (05:59→10:26)
--- NOTE | 2017-06-06 07:57 | Progress Note-Standard ---
Standard Progress Note Progress Notes/Assess & Plan Date Seen by Provider: Jun 06, 2017 Time Seen by Provider: 07:56 Progress/Assessment & Plan No complaints LLE dressing intact NVI distally s/p L knee scope dc home reg diet fu 2 weeks wbat HOWARD HUGHES MD Jun 06, 2017 07:57
[2017-06-06 08:00] VITALS: BP 127/81
[2017-06-06] MEDS: KCL 10 MEQ TAB (MICRO K) PO SCH ×2 (08:04→13:10)
[2017-06-06] MEDS: CALCIUM CARB + VIT D 600 MG (CALCARB + D) TAB PO SCH (08:05)
[2017-06-06] MEDS: RT-ALBUTEROL SULF 2.5 MG/3 ML PRE-MIX VIAL IH SCH ×2 (08:56→14:49)
[2017-06-06] MEDS: RT-IPRATROPIUM (ATROVENT) 0.5MG/2.5ML AMP IH SCH ×2 (08:57→14:49)
[2017-06-06] MEDS ORDERED: ENOXAPARIN 40 MG/0.4 ML (LOVENOX) SYR SQ SCH (09:00)
[2017-06-06] MEDS ORDERED: PANTOPRAZOLE 40 MG (PROTONIX) TAB PO SCH (09:00)
[2017-06-06] MEDS ORDERED: LORATADINE (CLARITIN) 10 MG TAB PO SCH (09:00)
[2017-06-06] MEDS ORDERED: DILTIAZEM HCL 120 MG PO SCH (09:00)
[2017-06-06] MEDS ORDERED: FUROSEMIDE 80 MG PO SCH (09:00)
--- NOTE | 2017-06-06 11:29 | Physical Therapy Daily Note ---
PT Daily Note-Current Subjective Patient agrees to PT. Pain Numeric Pain Scale: 8 Location: Left Location Body Site: Knee Pain Description: Acute Appearance increased edema left LE Mental Status Patient Orientation: Normal For Age Transfers Functional [place] Measure 0=Not Assessed/NA 4=Minimal Assistance 1=Total Assistance 5=Supervision or Setup 2=Maximal Assistance 6=Modified [place] 3=Moderate Assistance 7=Complete IndependenceIRFPAI Quality Coding Scale 6 Independent with activity with or without an assistive device 5 Patient requires set up or clean up by helper. Patient completes activity by themselves 4 Supervision or touching assist (CGA). [place] provide cues , steadying assist 3 The helper provides less than half the effort to complete the activity 2 The helper provides more than half the effort to complete the activity 1 Dependent. The helper does all the effort to complete an activity 7 Patient refused to complete or attempt activity 9 The patient did not perform the activity before the current illness or injury 88 Not attempted due to Medical conditions or safety concerns Transfers (B, C, W/C) (FIM): 6 Scootin Supine to/from Sit: 6 Sit to/from Stand: 6 Weight Bearing Right Lower Extremity: Right Left Lower Extremity: Left Weight Bearing/Tolerated Gait Training Gait (FIM): 6 Distance (FIM): 3=150 ft Distance: 225' Gait Level of Assist: 6 Gait Assistive Device: FWW slow, antalgic, functional Exercises Supine Ex: Ankle pumps, Quad Set, Heel Slides Supine Reps: 10 Seated Therapy Exercises: Ankle pumps, Long arc quads Seated Reps: 15 Assessment Reviewed HEP with patient performing correctly. Patient appears to be self limiting with mobility to due pain. Patient declined stair training stating she knows how to do it. PT to dismiss patient from services at this time with education on patient ambulating PRN in hallway and performing exercises PRN. PT Plan Treatment/Plan Treatment Plan: Discontinue PT, goals met Treatment Plan: Education, Gait, Therapeutic Exercise Treatment Duration: Jun 06, 2017 Frequency: 2 times per week Estimated Hrs Per Day: .25 hour per day Patient and/or Family Agrees t: Yes Discharge Recommendations Equpiment Recommendations-D/C: Front Wheeled Walker Time/GCodes Time In: 1045 Time Out: 1100 Total Billed Treatment Time: 15 Total Billed Treatment 1 visit FA 15 min PT/OT Therapy GCodes Therapy Functional Limitation: Physical Therapy Test(s)/Tool used to determine: Level of Assistance Scale Functional Limitation-Current Charge Code: MOBCUR Modifier: CJ Functional Limitation-Goal Charge Code: MOBGOAL Modifier: KARRIE DUNN PT Jun 06, 2017 11:29
[2017-06-06 12:00] VITALS: BP 116/69
--- NOTE | 2017-06-06 14:25 | Anesthesia-General Post-Op ---
General Patient Condition Mental Status/LOC: Same as Preop Cardiovascular: Satisfactory Nausea/Vomiting: Absent Respiratory: Satisfactory Pain: Controlled Complications: Absent Post Op Complications Complications None Follow Up Care/Instructions Patient Instructions None needed. Anesthesia/Patient Condition Patient Condition Patient is doing well, no complaints, stable vital signs, no apparent adverse anesthesia problems. She did have some post-op nausea but no vomiting, better today. STEPAN WATKINS DO Jun 06, 2017 14:25
[2017-06-06 16:00] VITALS: BP 151/75
== END 2017-06-06 16:42 | disposition home or self-care (01) ==
LOC: SDC 06:50 → 4TH 10:29 → SDC 06-06 16:42
PROVIDERS: ATTEND Orthopaedic Surgery
DX: M23.8X2 Other internal derangements of left knee (principal); M22.42 Chondromalacia patellae, left knee; J45.909 Unspecified asthma, uncomplicated; I10 Essential (primary) hypertension; J44.9 Chronic obstructive pulmonary disease, unspecified; G47.33 Obstructive sleep apnea (adult) (pediatric); Z86.718 Personal history of other venous thrombosis and embolism; Z79.899 Other long term (current) drug therapy; Z88.6 Allergy status to analgesic agent; Z88.7 Allergy status to serum and vaccine
CPT/HCPCS: 36415; 82962; 85610; 87081; 94640; 94760

== ENCOUNTER 2017-06-09 10:45 | Emergency (ER) | payer MEDICAID ==
[~2017-06-09] VITALS: Ht 162.6 cm; Wt 92.5 kg
[~2017-06-09 10:45] MED LIST changes: +CALC-901 PO; +DILT-8 PO; +ENOX40DI8 INJ
[2017-06-09 12:27] LABS: BASOPHILS % (AUTO) 0 % (0-10); EOSINOPHILS # (AUTO) 0.2 10^3/uL (0.0-0.3); EOSINOPHILS % (AUTO) 4 % (0-10); HEMATOCRIT 34 % (35-52); HEMOGLOBIN 11.2 G/DL (11.5-16.0); LYMPHOCYTES # (AUTO) 1.6 X 10^3 (1.0-4.0); LYMPHOCYTES % (AUTO) 33 % (12-44); MEAN CORPUSCULAR HEMOGLOBIN 29 PG (25-34); MEAN CORPUSCULAR HGB CONC 33 G/DL (32-36); MEAN CORPUSCULAR VOLUME 89 FL (80-99); MEAN PLATELET VOLUME 8.5 FL (7.4-10.4); MONOCYTES # (AUTO) 0.5 X 10^3 (0.0-1.0); MONOCYTES % (AUTO) 9 % (0-12); NEUTROPHILS # (AUTO) 2.6 X 10^3 (1.8-7.8); NEUTROPHILS % (AUTO) 54 % (42-75); PLATELET COUNT 322 10^3/uL (130-400); RED BLOOD COUNT 3.85 10^6/uL (4.35-5.85); RED CELL DISTRIBUTION WIDTH 15.7 % (10.0-14.5); WHITE BLOOD COUNT 4.9 10^3/uL (4.3-11.0)
--- NOTE | 2017-06-09 12:39 | Diagnostic Imaging Report ---
INDICATION: Fever, cough. COMPARISON: 05/18/2017 FINDINGS: A single view of the chest demonstrates cardiac enlargement without pulmonary edema. Scarring is seen in both bases. There is no focal infiltrate, effusion or pneumothorax. Osseous structures are age-appropriate. IMPRESSION: Cardiac enlargement with stable scarring in both the bases. No focal infiltrate. Dictated by: Dictated on workstation # [id number]
--- NOTE | 2017-06-09 12:57 | ED General ---
General Chief Complaint: Fever-Adult/Adol Stated Complaint: LEFT RIB PAIN;FEVER Nursing Triage Note: pt reports intermittent low grade fevers, cough/congestion since released saturday for l knee surgery. pt also reports l rib pain after leaning over in a chair to reach for something. Nursing Sepsis Screen: No Definite Risk Source of Information: Patient Exam Limitations: No Limitations History of Present Illness Date Seen by Provider: Jun 09, 2017 Time Seen by Provider: 12:55 Initial Comments The patient is a 56-year-old white female well-known to me. She reports that on Saturday she had arthroscopic surgery on her knee for a torn meniscus. She stayed overnight and returned home on . After arriving home she moved to the couch with her cell phone. She leaned over the arm of the couch to locate to the belt tender. There was a pop and she has had left lower rib pain since that time. As always she has cough and wheezing. She is not aware other than feeling hot and that she has had a fever Timing/Duration: 2-3 Days Modifying Factors: improves with Cold Therapy Associated Systoms: Denies Symptoms Allergies and Home Medications Allergies Coded Allergies: aspirin (Verified Allergy, Severe, ANAPHYLAXIS, 04/18/17) ibuprofen (Verified Allergy, Severe, ANAPHYLAXIS, 04/18/17) ketorolac (Verified Allergy, Severe, ANAPHYLAXIS, 04/18/17) tetanus and diphtheria toxoids (Unverified Allergy, Severe, ANAPHYLAXIS, 04/18/17) aloe (Verified Allergy, Mild, RASH, 04/18/17) latex (Verified Allergy, Mild, RASH, 04/18/17) OCCASIONALLY IS IRRITATING SKIN iodine (Verified Adverse Reaction, Unknown, 04/18/17) Patient states she got dizzy, diaphoretic and saw stars. Uncoded Allergies: ALOE VERA (Allergy, Unknown, 12/23/05) SILK SUTURES (Adverse Reaction, Unknown, BODY REJECTS SUTURES, 10/07/13) Home Medications Albuterol Sulfate 2.5 Mg/3 Ml Vial.neb, 2.5 MG NEB TID, (Reported) MIXES WITH IPRATROPIUM SOLUTION Albuterol Sulfate 8.5 Gm Hfa.aer.ad, 2 PUFF IH Q4H PRN for SHORTNESS OF BREATH, (Reported) Albuterol Sulfate 2.5 Mg/3 Ml Vial.neb, 2.5 MG NEB Q2H PRN for SHORTNESS OF BREATH, (Reported) Alprazolam 1 Mg Tablet, 1 MG PO Q8H PRN for ANXIETY, (Reported) Calcium Carbonate/Vitamin D3 1 Each Tablet, 1 TAB PO BID, (Reported) Diltiazem HCl 120 Mg Capsule.er, 120 MG PO DAILY, (Reported) Enoxaparin Sodium 40 Mg/0.4 Ml Syringe, 40 MG INJ UD, (Reported) TWICE DAILY X 5 DAYS THEN HOLD DAY OF SURGERY (06-05-17 ) THEN RESUME X2 DAYS THEN STOP Fenofibrate Nanocrystallized 145 Mg Tablet, 145 MG PO DAILY, (Reported) Furosemide 80 Mg Tablet, 80 MG PO DAILY, (Reported) Hydrocodone/Acetaminophen 1 Each Tablet, 1 TAB PO Q6H PRN for PAIN-MODERATE, ( Reported) Hyoscyamine Sulfate 0.125 Mg Tab.rapdis, 0.125 MG SL Q6H PRN for ABDOMINAL PAIN, (Reported) Ipratropium [place] 0.2 Mg/1 Ml Solution, 1 VIAL NEB TID, (Reported) MIXES WITH ALBUTEROL SOLUTION Loratadine 10 Mg Tablet, 10 MG PO DAILY, (Reported) Montelukast Sodium 10 Mg Tablet, 10 MG PO HS, (Reported) Pantoprazole Sodium 40 Mg Tablet.dr, 40 MG PO DAILY, (Reported) Potassium Chloride 10 Meq Tablet.er, 20 MEQ PO TID, (Reported) TAKES 2 (10 MEQ) TABLETS Warfarin Sodium 4 Mg Tablet, 4 MG PO 1800, (Reported) Constitutional: see HPI EENTM: no symptoms reported Respiratory: see HPI Cardiovascular: no symptoms reported Gastrointestinal: no symptoms reported 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: no symptoms reported Musculoskeletal: no symptoms reported Skin: no symptoms reported Psychiatric/Neurological: No Symptoms Reported Hematologic/Lymphatic: No Symptoms Reported Immunological/Allergic: no symptoms reported Past Rcihgpk-Jyfgvd-Wmjhkg Hx Patient Social History Alcohol Use: Denies Use Recreational Drug Use: No (15 yrs ago---IV drug user including Cocaine-CLEAN SINCE 1994) Drug of Choice: + IV COCAINE USE Smoking Status: Former Smoker Type Used: Cigarettes Former Smoker, Quit: September 12, 2003 2nd Hand Smoke Exposure: No Recent Foreign Travel: No Contact w/Someone Who Travel: No Recent Infectious Disease Expo: No Recent Hopitalizations: No Physical Abuse: No Sexual Abuse: No Mistreated: No Fear: No Immunizations Up To Date Tetanus Booster (TDap): Unknown PED Vaccines UTD: No Date of Pneumonia Vaccine: Sep 05, 2010 Date of Influenza Vaccine: Mar 11, 2012 Seasonal Allergies Seasonal Allergies: Yes Surgeries History of Surgeries: Yes (shoulder scope, knee scope, d & c, trapease filter, l knee replacement) Surgeries: Abdominal, Adenoidectomy, Section, Gallbladder, Hysterectomy, Orthopedic, Tonsillectomy, Vascular Surgery Respiratory History of Respiratory Disorde: Yes (O2 AT NIGHT 2-3L AND PRN; NOCTURNAL HYPOXIA) Respiratory Disorders: Asthma, Pneumonia, Chronic Bronchitis, Pulmonary Embolism, COPD, Emphysema Currently Using BIPAP: No Cardiovascular History of Cardiac Disorders: No (VENA CAVA FILTER 2009; VARICOSE VEINS WITH VENOUS STASIS ULCERS) Cardiac Disorders: Chronic Edema/Swelling, Deep Vein Thrombosis, High Cholesterol, Hypertension, Peripheral Vascular Neurological History of Neurological Disord: Yes Neurological Disorders: Neuropathy 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 System Hx 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 Disorders: No Sexually Transmitted Disease: No HIV/AIDS: No 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 Disorders: 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, 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 History of 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 Disor: Yes 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 Disorders: Bladder Infection, Kidney Stones Gastrointestinal History of Gastrointestinal Di: Yes Gastrointestinal Disorders: Abdominal Hernia, Colitis, Gastroesophageal Reflux , Chronic Constipation, Diverticulosis, Polyps, Hiatal Hernia, Irritable Bowel Musculoskeletal History of Musculoskeletal Dis: Yes (left knee) Musculoskeletal Disorders: Arthritis Endocrine History of Endocrine Disorders: No (PRE-DIABETIC ) HEENT History of HEENT Disorders: Yes (GLASSES) HEENT Disorders: Tinnitis Loss of Vision: Bilateral Hearing Impairment: Hard of Hearing Cancer History of Cancer: No Did You Recieve Any Treatments: No Psychosocial History of Psychiatric Problem: Yes Behavioral Health Disorders: Anxiety Suicide Risk Score: 0 Integumentary History of Skin or Integumenta: Yes (CHRONIC VENOUS STASIS CHANGES AND ULCERS) Skin/Integumentary Disorders: Recent Skin Changes Blood Transfusions History of Blood Disorders: Yes (HX OF DVT'S/ P.E.'S; PROBABLE PROTEIN C DEFICIENCY) Adverse Reaction to a Blood Tr: No (HAS HAD BLOOD WITH NO PROBLEMS) Family Medical History Significant Family History: Cancer, COPD, Vascular Disease Family Medial History: Alcoholism Alcoholism Arthritis Asthma Cancer Cancer of colon Cancer of mouth Cardiovascular disease Cataract Cataracts Chest pain Colon cancer Completed stroke Diabetes mellitus Family history: Allergy Family history: Arthritis Family history: Asthma Family history: Cardiovascular disease Family history: Coronary thrombosis Family history: Diabetes mellitus Family history: Gastrointestinal disease Family history: Hypertension Family history: Thyroid disorder Headache Hearing loss Heart disease History of - anemia History of - respiratory disease Hypercholesterolemia Hypercholesterolemia Infertile Malignant neoplasm of lung Myocardial infarction Myocardial infarction Psychotic disorder Respiratory disorder Stroke No Family History of: AIDS Abdominal aortic aneurysm Abdominal aortic aneurysm [place]'s disease Fernando's disease Alzheimer's disease Aphasia Aphasia Congenital disease Congenital heart disease Congenital heart disease Congestive heart failure Coronary thrombosis Cystic fibrosis Cystic fibrosis Deafness or hearing loss Dementia Dementia Drug abuse Dysphagia Dysphasia Family history: Alzheimer's disease Family history: Breast disease Family history: Glaucoma Family history: Osteoporosis Fibrocystic disease of breast Gastroenteritis Glaucoma Headache disorder Hereditary disease History of - disorder History of drug abuse Human immunodeficiency virus (HIV) seropositivity Infertility Kidney disease Kidney disease Neoplasm Not obtainable due to adoption Osteoporosis Parkinson's disease Parkinson's disease Prostate cancer Psychosocial problem Seizure disorder Seizure disorder Severe allergy Thyroid disease Tuberculosis Tuberculosis Visual disorder Visual impairment Physical Exam Vital Signs Vital Sign - Last 12Hours 06/09/17 10:54 Temp 98.8 Pulse 121 Resp 18 B/P (MAP) 119/79 (92) Pulse Ox 94 Capillary Refill : Less Than 3 Seconds General Appearance: No Apparent Distress Eyes: Bilateral Eye Normal Inspection HEENT: Normal ENT Inspection Neck: Normal Inspection Respiratory: Decreased Breath Sounds, Wheezing Cardiovascular: Regular Rate, Rhythm, No Edema, No Gallop, No JVD, No Murmur, Normal Peripheral Pulses Extremity: Normal Capillary Refill, Pedal Edema (2+) Progress/Results/Core Measures Suspected Sepsis Recent Fever Within 48 Hours: Yes Infection Criteria Present: None New/Unexplained Altered Menta: No Sepsis Screen: No Definite Risk Sepsis Diagnosis: SIRS Temperature:98.8 Pulse: 121 Respiratory Rate: 18 Laboratory Tests 06/09/17 12:20: White Blood Count 4.9 Blood Pressure 119 /79 Mean: 92 Laboratory Tests 06/09/17 12:20: Platelet Count 322 Results/Orders Lab Results Laboratory Tests Test 06/09/17 12:20 Range/Units White Blood Count 4.9 4.3-11.0 10^3/uL Red Blood Count 3.85 L 4.35-5.85 10^6/uL Hemoglobin 11.2 L 11.5-16.0 G/DL Hematocrit 34 L 35-52 % Mean Corpuscular Volume 89 80-99 FL Mean Corpuscular Hemoglobin 29 25-34 PG Mean Corpuscular Hemoglobin Concent 33 32-36 G/DL Red Cell Distribution Width 15.7 H 10.0-14.5 % Platelet Count 322 130-400 10^3/uL Mean Platelet Volume 8.5 7.4-10.4 FL Neutrophils (%) (Auto) 54 42-75 % Lymphocytes (%) (Auto) 33 12-44 % Monocytes (%) (Auto) 9 0-12 % Eosinophils (%) (Auto) 4 0-10 % Basophils (%) (Auto) 0 0-10 % Neutrophils # (Auto) 2.6 1.8-7.8 X 10^3 Lymphocytes # (Auto) 1.6 1.0-4.0 X 10^3 Monocytes # (Auto) 0.5 0.0-1.0 X 10^3 Eosinophils # (Auto) 0.2 0.0-0.3 10^3/uL Basophils # (Auto) 0.0 0.0-0.1 10^3/uL My Orders Orders - SHELL FOX MD Cbc With Automated Diff (06/09/17 11:56) Chest 1 View, Ap/Pa Only (06/09/17 11:56) Vital Signs/I&O Vital Sign - Last 12Hours 06/09/17 10:54 Temp 98.8 Pulse 121 Resp 18 B/P (MAP) 119/79 (92) Pulse Ox 94 Capillary Refill : Less Than 3 Seconds Blood Pressure Mean: 92 Departure Impression Impression: Primary Impression: rib contusion Disposition: 01 HOME, SELF-CARE Condition: Stable/Unchanged Departure-Patient Inst. Decision time for Depature: 13:27 Referrals: LEAH WOLF MD (PCP) Primary Care Physician ARIES FERRARO MD (Family) Primary Care Physician Add. Discharge Instructions: All discharge instructions reviewed with patient and/or family. Voiced understanding. Use heating pad and Tylenol 650 mg every 4 hours as needed for pain. SHELL FOX MD Jun 09, 2017 12:57
[2017-06-09 13:57] VITALS: BP 120/80
== END 2017-06-09 13:57 | disposition home or self-care (01) ==
LOC: EDUNIT# 10:45 → ER 10:47
DX: S20.212A Contusion of left front wall of thorax, initial encounter (principal); J43.9 Emphysema, unspecified; I73.9 Peripheral vascular disease, unspecified; F41.9 Anxiety disorder, unspecified; K21.9 Gastro-esophageal reflux disease without esophagitis; I10 Essential (primary) hypertension; E78.00 Pure hypercholesterolemia, unspecified; F14.10 Cocaine abuse, uncomplicated; Z90.49 Acquired absence of other specified parts of digestive tract; Z87.442 Personal history of urinary calculi; Z87.59 Personal history of other complications of pregnancy, childbirth and the puerperium; Z86.718 Personal history of other venous thrombosis and embolism; Z80.0 Family history of malignant neoplasm of digestive organs; Z82.49 Family history of ischemic heart disease and other diseases of the circulatory system; Z80.1 Family history of malignant neoplasm of trachea, bronchus and lung; Z87.19 Personal history of other diseases of the digestive system; Z86.010 Personal history of colon polyps; Z87.01 Personal history of pneumonia (recurrent); Z90.710 Acquired absence of both cervix and uterus; Z96.652 Presence of left artificial knee joint; Z79.01 Long term (current) use of anticoagulants; Z87.891 Personal history of nicotine dependence; X50.0XXA Overexertion from strenuous movement or load, initial encounter
CPT/HCPCS: 36415; 71045; 85025

== ENCOUNTER 2017-07-25 10:00 | Outpatient (RCR) | payer MEDICAID ==
[~2017-07-25 10:00] MED LIST changes: +FENO145T37 PO
[2017-08-10] MEDS ORDERED: NYST1000 PO (08:17)
[2017-08-10] MEDS ORDERED: LEVO750T39 PO (08:17)
[2017-08-10] MEDS ORDERED: FLUC100T6 PO (08:17)
[2017-08-20 10:10] VITALS: BP 120/80
[2017-08-20 10:12] VITALS: BP 120/80
[2017-08-20 10:53] VITALS: BP 108/80
[2017-09-02] MEDS ORDERED: PRD10T PO (10:31)
[2017-09-05 10:00] VITALS: BP 144/87
[2017-09-05 10:50] VITALS: BP 112/69
== END 2017-10-14 | disposition home or self-care (01) ==
LOC: PULM 10:00
PROVIDERS: ATTEND Family Medicine
DX: J44.1 Chronic obstructive pulmonary disease with (acute) exacerbation (principal)

== ENCOUNTER 2017-08-05 05:57 | Outpatient (CLI) | payer MEDICAID ==
[~2017-08-05] VITALS: Ht 152.4 cm; Wt 82.1 kg
[~2017-08-05 05:57] MED LIST changes: -FENO145T37 PO
== END 2017-08-05 15:32 ==
LOC: PREOP 05:57
PROVIDERS: ATTEND Surgery
DX: Z01.818 Encounter for other preprocedural examination (principal); K92.1 Melena; L98.9 Disorder of the skin and subcutaneous tissue, unspecified

== ENCOUNTER 2017-08-07 11:05 | Observation (INO) | payer MEDICAID ==
[~2017-08-07] VITALS: Ht 152.4 cm; Wt 82.1 kg
--- NOTE | 2017-08-07 11:35 | Conscious Sedation/ASA ---
Conscious Sedation Pre-Proced Time Reviewed: 11:30 ASA Class: 2 Airway Mallampati Classification: ([place] appropriate class) I. II. III, IV Lungs Heart ASA score ASA 1: a normal healthy patient ASA 2: a patient with a mild systemic disease (mid diabetes, controlled hypertension, obesity ASA 3: a patient with a severe systemic disease that limits activity (angina , COPD, prior Myocardial infarction) ASA 4: a patient with an incapacitating disease that is a constant threat to life (CHF, renal failure) ASA 5: a moribund patient not expected to survive 24 hrs. (ruptured aneurysm) ASA 6: a declared brain patient whose organs are being harvested. For emergent operations, add the letter E after the classification Grade 2 Sedation Plan: Analgesia, Amnesia, Plan communicated to team members, Discussed options with patient/fam, Discussed risks with patient/fam Note The patient is an appropriate candidate to undergo the planned procedure, sedation, and anesthesia. The patient immediately re-assessed prior to indication. TEDDY PHILIP MD Aug 07, 2017 11:35 am
--- NOTE | 2017-08-07 11:36 | Progress Note-Pre Operative ---
Pre-Operative Progress Note H&P Reviewed The H&P was reviewed, patient examined and no changes noted. Date Seen by Provider: Aug 07, 2017 Time Seen by Provider: 11:30 Date H&P Reviewed: Aug 07, 2017 Time H&P Reviewed: :30 Pre-Operative Diagnosis: rectal bleed, family hx colon ca, GERD, sx thigh lesion. TEDDY PHILIP MD Aug 07, 2017 11:36 am
[2017-08-07] MEDS ORDERED: ONDANSETRON 4 MG/2 ML (SDV) Z0FRAN IV PRN (11:45)
[2017-08-07] MEDS ORDERED: HURRICAINE EXT TUBE (BENZOCAINE) XX PRN (11:45)
[2017-08-07] MEDS ORDERED: SCOPOLAMINE 1.5 MG (TRANSDERM-SCOP) PATCH TOP ONE (11:45)
[2017-08-07] MEDS ORDERED: LIDOCAINE JELLY 2% (XYLOCAINE) 5 ML TUBE MM PRN (11:45)
[2017-08-07] MEDS ORDERED: morphine INJ 10 MG/ML 1ML (SYR OR VIAL) IV PRN (11:45)
[2017-08-07] MEDS: NS IV 500 ML 500 ML IV PRN ×2 (12:05→15:40)
[2017-08-07] MEDS ORDERED: ONDANSETRON 4 MG/2 ML (SDV) Z0FRAN ONE (14:05)
[2017-08-07] MEDS ORDERED: MIDAZOLAM 2 MG/2 ML (VERSED) VIAL ONE ×4 (14:53→15:35)
[2017-08-07] MEDS ORDERED: fentaNYL INJECTION 100 MCG/2 ML AMP ONE ×3 (14:53→15:44)
[2017-08-07] MEDS ORDERED: LIDOCAINE JELLY 2% (XYLOCAINE) 5 ML TUBE ONE (14:53)
[2017-08-07] MEDS ORDERED: HURRICAINE EXT TUBE (BENZOCAINE) ONE (14:53)
[2017-08-07] MEDS: fentaNYL INJECTION 100 MCG/2 ML AMP IVP PRN ×5 (15:17→15:48)
[2017-08-07] MEDS: MIDAZOLAM 2 MG/2 ML (VERSED) VIAL IVP PRN ×4 (15:18→15:47)
[2017-08-07] MEDS ORDERED: NS IV 500 ML 500 ML ONE (15:23)
[2017-08-07] MEDS ORDERED: LIDOCAINE PF 1% 2 ML AMP ONE (15:53)
[2017-08-07] MEDS ORDERED: LIDOCAINE 1% INJ 20 ML 20 ML VIAL INJ PRN (16:00)
--- NOTE | 2017-08-07 16:17 | Progress Note-Post Operative ---
Post-Operative Progess Note Surgeon (s)/Cook Pickled Meat (s) Surgeon TEDDY PHILIP MD Cook Pickled Meat: none Pre-Operative Diagnosis rectal bleed, family hx colon ca, GERD, sx thigh lesion. Post-Operative Diagnosis reflux esophagitis(class B), small HH(1cm), moderate gastritis. chronic stage 2 ext and int hemorrhoids, severe sigmoid diverticulosis. Procedure & Operative Findings Date of Procedure 08/07/17 Procedure Performed/Findings EGD with bx. Colonoscopy. Anesthesia Type CS Estimated Blood Loss Estimated blood loss (mL): minimal Specimens/Packing Specimens Removed GE jxn, antrum TEDDY PHILIP MD Aug 07, 2017 4:17 pm
[2017-08-07 16:27] LABS: BASOPHILS % (AUTO) 0 % (0-10); EOSINOPHILS % (AUTO) 0 % (0-10); HEMATOCRIT 37 % (35-52); HEMOGLOBIN 11.8 G/DL (11.5-16.0); LYMPHOCYTES # (AUTO) 1.1 X 10^3 (1.0-4.0); LYMPHOCYTES % (AUTO) 8 % (12-44); MEAN CORPUSCULAR HEMOGLOBIN 28 PG (25-34); MEAN CORPUSCULAR HGB CONC 32 G/DL (32-36); MEAN CORPUSCULAR VOLUME 88 FL (80-99); MEAN PLATELET VOLUME 8.7 FL (7.4-10.4); MONOCYTES # (AUTO) 0.7 X 10^3 (0.0-1.0); MONOCYTES % (AUTO) 5 % (0-12); NEUTROPHILS # (AUTO) 11.7 X 10^3 (1.8-7.8); NEUTROPHILS % (AUTO) 86 % (42-75); PLATELET COUNT 315 10^3/uL (130-400); RED BLOOD COUNT 4.19 10^6/uL (4.35-5.85); RED CELL DISTRIBUTION WIDTH 18.4 % (10.0-14.5); WHITE BLOOD COUNT 13.5 10^3/uL (4.3-11.0)
[2017-08-07 16:44] LABS: BUN/CREATININE RATIO 11; CALCIUM 7.9 MG/DL (8.5-10.1); CARBON DIOXIDE 24 MMOL/L (21-32); CHLORIDE 107 MMOL/L (98-107); CREATININE SERUM 0.62 MG/DL (0.60-1.30); GFR ESTIMATED > 60; GLUCOSE 124 MG/DL (70-105); POTASSIUM 3.4 MMOL/L (3.6-5.0); SODIUM 138 MMOL/L (135-145)
[2017-08-07 17:00] VITALS: BP 126/68
--- NOTE | 2017-08-07 17:03 | Diagnostic Imaging Report ---
INDICATION: Cough and fever. Comparison made with prior examination from 06/09/2017. FINDINGS: Heart size is normal. There is bibasilar atelectasis and/or pneumonitis. There are small bilateral pleural effusions. There is a more focal pulmonary parenchymal opacity in the right lower lobe and right middle lobe. There is no pneumothorax. Mediastinum is unremarkable. IMPRESSION: Bibasilar atelectasis and/or pneumonitis and bilateral pleural effusions. Focal pulmonary parenchymal opacities in the right middle lobe and right lower lobe. These likely reflect infiltrates, although mass cannot be entirely excluded. Recommend short-interval follow-up to ensure resolution. If these persist, further evaluation with CT should be considered. Dictated by: Dictated on workstation # [id number]
[2017-08-07] MEDS ORDERED: ALPRAZolam 1 MG (XANAX) TAB PO PRN (17:30)
[2017-08-07] MEDS ORDERED: NON-FORMULARY MEDICATION 1 EA EA (Hyoscyamine Sulfate 0.125 MG) SL PRN (17:30)
[2017-08-07] MEDS ORDERED: RT-ALBUTEROL/IPRATROPIUM 3 ML (DUONEB) VIAL INH PRN (18:00)
[2017-08-07] MEDS: ACETAMINOPHEN 500 MG TAB (TYLENOL) PO PRN (18:07)
[2017-08-07] MEDS ORDERED: HYOSCYAMINE 0.125 MG (LEVSIN) TAB SL PRN (18:30)
[2017-08-07] MEDS: LEVOFLOXACIN 750 MG/150 ML IV 150 ML IV SCH (18:39)
[2017-08-07] MEDS: KCL 10 MEQ TAB (MICRO K) PO SCH (18:39)
[2017-08-07] MEDS: RT-ALBUTEROL/IPRATROPIUM 3 ML (DUONEB) VIAL INH SCH ×2 (18:56→21:03)
[2017-08-07] MEDS ORDERED: INFLUENZA TRIvalent 2017-2018 0.5 ML/45 MCG SYR IM ONE (19:00)
[2017-08-07 20:00] VITALS: BP 98/57
[2017-08-07] MEDS: MONTELUKAST 10 MG (SINGULAIR) TAB PO SCH (20:03)
[2017-08-07] MEDS ORDERED: NON-FORMULARY MEDICATION 1 EA EA (Calcium Carbonate/Vitamin D3 (Calcium 600 + Vit D 800 Ta PO SCH (21:00)
[2017-08-07] MEDS ORDERED: RT-IPRATROPIUM (ATROVENT) 0.5MG/2.5ML AMP IH SCH (21:00)
--- NOTE | 2017-08-07 22:23 | OPERATIVE REPORT ---
DATE OF SERVICE: 08/07/2017 ATTENDING PRIMARY CARE PHYSICIAN: Dr. Rogers. PREOPERATIVE DIAGNOSES: Rectal bleeding, change in bowel habits, nausea, worsening gastroesophageal reflux disease. POSTOPERATIVE DIAGNOSES: Reflux esophagitis class B, small hiatal hernia 1 cm in size, moderate severity gastritis. Chronic stage II external and internal hemorrhoids, severe sigmoid diverticulosis with no active diverticulitis. PROCEDURES: EGD with biopsy and colonoscopy. SURGEON: Teddy Philip MD. ANESTHESIA: Conscious sedation. ESTIMATED BLOOD LOSS: Minimal. FINDINGS: EGD reflux esophagitis class B, small hiatal hernia approximately 1 cm in size, moderate severity gastritis with no ulcers, polyps or any neoplasms identified. Pylorus and duodenum appeared normal. Colonoscopy chronic stage II external and internal hemorrhoids with a one edematous external hemorrhoidal cushion flareup. No bleeding. There was a severe sigmoid diverticulosis with no mucosal inflammatory changes to indicate any active diverticulitis. The remainder of the colon was normal. There were no polyps identified. DISPOSITION: The patient tolerated the procedure well. INDICATIONS: The patient is a 56-year-old female known to us. She has a history of protein C deficiency as well as history of bilateral lower extremity edema and pulmonary emboli. We had seen her before for a fall and large buttock hematoma. We had also seen her on 09/15/2015 for debridement of previous mesh and repair of recurrent ventral abdominal incisional hernia. She reports that she has had episodes of lightheadedness and dizziness. She was worked up; however, nothing significant was identified. She was found to have a urinary tract infection at that time. Since that time, she reports she has had some episodes of rectal bleeding as well as diarrhea, nausea and epigastric pain, which she has had before; however, this has worsened. The patient on today's visit also reports that she has had significant fevers over the past 24 hours and a temperature was taken, which was significantly elevated. DESCRIPTION OF PROCEDURE: The patient was brought to the endoscopy suite, laid in the left lateral decubitus position. After adequate IV pain sedative medications and conscious sedation anesthesia, the mouthpiece was applied. The endoscope was placed in the mouth, visualizing the pharynx and hypopharyngeal region. Vocal cords, epiglottis and vallecula identified and appeared to be normal. Endoscope was then gently intubated at the esophageal opening and esophagus insufflated. The endoscope was then advanced to the valves of [place]. Through the first, second and third portion of esophagus to the level of the GE junction, a reflux esophagitis class B was identified. There were no ulcers or strictures identified in this region. A biopsy was taken with forceps with visualization of good hemostasis. The endoscope was then easily advanced in the stomach and endoscope retroflexed, visualizing a small hiatal hernia approximately 1 cm in size. There was moderate severity gastritis. There were no formal ulcers, polyps or any neoplasms identified. A biopsy was taken of the stomach antrum for H. pylori with visualization of good hemostasis. The endoscope was then advanced to the pylorus and the first and second portion of the duodenum, which appeared normal with no distal obstructions. The endoscope was then slowly withdrawn while taking a second look and suctioning residual air with no additional findings. The patient tolerated this portion of the procedure well. We will recommend continued medical management with the necessary lifestyle and diet accommodation including small and more frequent meals, avoiding eating at night as well as head elevation while lying supine. She also needs to avoid caffeinated beverages, spicy, greasy and acidic foods as well as take her normal Protonix. Under the same conscious sedation anesthesia, we then proceeded with the colonoscopy portion of procedure. A digital rectal examination was performed, which revealed chronic stage II external and internal hemorrhoids with a flareup of one of the external hemorrhoidal cushions, which was slightly tender to palpation; however, known visualized thrombosis. Normal sphincter tone was felt and there were no palpable masses. The endoscope was then intubated into the anus and rectum gently insufflated. The endoscope was then advanced to the valves of [place] of the rectum with no polyps or any neoplasms identified. The endoscope was then advanced through the valves of [place] of the rectum with no polyps or any neoplasms identified. We then proceeded through the sigmoid colon where a moderate to severe sigmoid diverticulosis was identified. There were no mucosal inflammatory changes to indicate any diverticulitis. The endoscope was then advanced to the remainder of the descending, transverse and ascending colons to the cecum. These segments were normal. There were no polyps or any neoplasms identified throughout the colon or rectum. The endoscope was then slowly withdrawn taking a second look and suctioning residual air with no additional findings. The patient tolerated this portion of the procedure well. For her significant diverticulosis and hemorrhoids, we will recommend a high fiber diet with at least 30 grams of fiber per day as well as at least 64 fluid ounces of water daily to promote soft stools on a daily basis. Due to her fevers, we will admit her and consult hospitalist for further evaluation. Lab work was drawn and did show an elevation of white count of 13.5 and we will also get a 2-view chest x-ray for possible pneumonia. Job ID: [id number] DocumentID: [id number] Dictated Date: 08/07/2017 16:31:41 Hogshead Packer Date: 08/07/2017 22:22:28 Dictated By: TEDDY PHILIP MD
[2017-08-08] VITALS (7 sets, daily range): BP systolic 97–128; BP diastolic 50–86
[2017-08-08] MEDS ORDERED: ACETAMINOPHEN 500 MG TAB (TYLENOL) ONE (00:18)
[2017-08-08] MEDS: RT-ALBUTEROL/IPRATROPIUM 3 ML (DUONEB) VIAL INH SCH ×6 (01:32→22:28)
[2017-08-08] MEDS: KCL 10 MEQ TAB (MICRO K) PO SCH ×3 (05:52→17:26)
[2017-08-08] MEDS: FUROSEMIDE 40 MG (LASIX) TAB PO SCH (05:52)
[2017-08-08] MEDS: CALCIUM CARB + VIT D 600 MG (CALCARB + D) TAB PO SCH ×2 (05:52→17:26)
[2017-08-08] MEDS: PANTOPRAZOLE 40 MG (PROTONIX) TAB PO SCH (05:52)
--- NOTE | 2017-08-08 08:01 | Consultation ---
History of Present Illness History of Present Illness Patient Consulted On(crystal/time) 08/08/17 07:57 Date Seen by Provider: Aug 08, 2017 Time Seen by Provider: 07:30 History of Present Illness 56-year-old female underwent EGD as well as colonoscopy yesterday afternoon on August 07, 2017 followed by subsequent fever. She reports she has had a cough off and on over the past week but she assumed this was from her allergies. X- ray following procedure revealed infiltrates bilaterally in the bases. Radiographically these appeared to be either atelectasis or infiltrates. Based upon her clinical history this most likely is pneumonia. She reports this morning no significant shortness of breath although cough persists. Allergies and Home Medications Allergies Coded Allergies: aspirin (Verified Allergy, Severe, ANAPHYLAXIS, 08/07/17) ibuprofen (Verified Allergy, Severe, ANAPHYLAXIS, 08/07/17) ketorolac (Verified Allergy, Severe, ANAPHYLAXIS, 08/07/17) tetanus and diphtheria toxoids (Unverified Allergy, Severe, ANAPHYLAXIS, ) aloe (Verified Allergy, Mild, RASH, 08/07/17) hydrocodone (Verified Allergy, Mild, 08/07/17) latex (Verified Allergy, Mild, RASH, 08/07/17) OCCASIONALLY IS IRRITATING SKIN scopolamine (Verified Allergy, Mild, 08/07/17) iodine (Verified Adverse Reaction, Unknown, 08/07/17) Patient states she got dizzy, diaphoretic and saw stars. Uncoded Allergies: ALOE VERA (Allergy, Unknown, 12/23/05) SILK SUTURES (Adverse Reaction, Unknown, BODY REJECTS SUTURES, 10/07/13) Home Medications Albuterol Sulfate 2.5 Mg/3 Ml Vial.neb, 2.5 MG NEB TID, (Reported) MIXES WITH IPRATROPIUM SOLUTION Albuterol Sulfate 8.5 Gm Hfa.aer.ad, 2 PUFF IH Q4H PRN for SHORTNESS OF BREATH, (Reported) Albuterol Sulfate 2.5 Mg/3 Ml Vial.neb, 2.5 MG NEB Q2H PRN for SHORTNESS OF BREATH, (Reported) Alprazolam 1 Mg Tablet, 1 MG PO Q8H PRN for ANXIETY, (Reported) Calcium Carbonate/Vitamin D3 1 Each Tablet, 1 TAB PO BID, (Reported) Diltiazem HCl 120 Mg Capsule.er, 120 MG PO DAILY, (Reported) Fenofibrate Nanocrystallized 145 Mg Tablet, 145 MG PO DAILY, (Reported) Furosemide 80 Mg Tablet, 80 MG PO DAILY, (Reported) Hydrocodone/Acetaminophen 1 Each Tablet, 1 TAB PO Q6H PRN for PAIN-MODERATE, ( Reported) Hyoscyamine Sulfate 0.125 Mg Tab.rapdis, 0.125 MG SL Q6H PRN for ABDOMINAL PAIN, (Reported) Ipratropium [place] 0.2 Mg/1 Ml Solution, 1 VIAL NEB TID, (Reported) MIXES WITH ALBUTEROL SOLUTION Loratadine 10 Mg Tablet, 10 MG PO DAILY, (Reported) Montelukast Sodium 10 Mg Tablet, 10 MG PO HS, (Reported) Pantoprazole Sodium 40 Mg Tablet.dr, 40 MG PO DAILY, (Reported) Potassium Chloride 10 Meq Tablet.er, 20 MEQ PO TID, (Reported) TAKES 2 (10 MEQ) TABLETS Warfarin Sodium 4 Mg Tablet, 4 MG PO 1800, (Reported) Patient Home Medication List Home Medication List Reviewed: Yes Past Lpeqxuy-[id number]-[id number] Hx Patient Social History Alcohol Use: Denies Use Recreational Drug Use: No (15 yrs ago---IV drug user including Cocaine-CLEAN SINCE 1994) Drug of Choice: + IV COCAINE USE Smoking Status: Former Smoker Type Used: Cigarettes Former Smoker, Quit: September 12, 2003 2nd Hand Smoke Exposure: No Recent Foreign Travel: No Contact w/Someone Who Travel: No Recent Infectious Disease Expo: No Recent Hopitalizations: No Physical Abuse: No Sexual Abuse: No Mistreated: No Fear: No Immunizations Up To Date Tetanus Booster (TDap): Unknown PED Vaccines UTD: No Date of Pneumonia Vaccine: Sep 05, 2012 Date of Influenza Vaccine: Mar 11, 2012 Seasonal Allergies Seasonal Allergies: Yes Surgeries History of Surgeries: Yes (shoulder scope, knee scope, d & c, trapease filter, l knee replacement) Surgeries: Abdominal, Adenoidectomy, Section, Gallbladder, Hysterectomy, Orthopedic, Tonsillectomy, Vascular Surgery Respiratory History of Respiratory Disorde: Yes (O2 AT NIGHT 2-3L AND PRN; NOCTURNAL HYPOXIA) Respiratory Disorders: Asthma, Pneumonia, Chronic Bronchitis, Pulmonary Embolism, COPD, Emphysema Currently Using BIPAP: No Cardiovascular History of Cardiac Disorders: No (VENA CAVA FILTER 2009; VARICOSE VEINS WITH VENOUS STASIS ULCERS) Cardiac Disorders: Chronic Edema/Swelling, Deep Vein Thrombosis, High Cholesterol, Hypertension, Peripheral Vascular Neurological History of Neurological Disord: Yes Neurological Disorders: Neuropathy 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 System Hx 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 Disorders: No Sexually Transmitted Disease: No HIV/AIDS: No 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 Disorders: Denies SEED BUYER History: Hysterectomy, Menopausal 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 History of 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 Disor: Yes 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 Disorders: Bladder Infection, Kidney Stones Gastrointestinal History of Gastrointestinal Di: Yes Gastrointestinal Disorders: Abdominal Hernia, Colitis, Gastroesophageal Reflux , Chronic Constipation, Diverticulosis, Polyps, Hiatal Hernia, Irritable Bowel Musculoskeletal History of Musculoskeletal Dis: Yes (left knee) Musculoskeletal Disorders: Arthritis Endocrine History of Endocrine Disorders: No (PRE-DIABETIC ) HEENT History of HEENT Disorders: Yes (GLASSES) HEENT Disorders: Tinnitis Loss of Vision: Bilateral Hearing Impairment: Hard of Hearing Cancer History of Cancer: No Did You Recieve Any Treatments: No Psychosocial History of Psychiatric Problem: Yes Behavioral Health Disorders: Anxiety Integumentary History of Skin or Integumenta: Yes (CHRONIC VENOUS STASIS CHANGES AND ULCERS) Skin/Integumentary Disorders: Recent Skin Changes Blood Transfusions History of Blood Disorders: Yes (HX OF DVT'S/ P.E.'S; PROBABLE PROTEIN C DEFICIENCY) Adverse Reaction to a Blood Tr: No (HAS HAD BLOOD WITH NO PROBLEMS) Family Medical History Significant Family History: Cancer, COPD, Vascular Disease Family Medial History: Alcoholism Alcoholism Arthritis Asthma Cancer Cancer of colon Cancer of mouth Cardiovascular disease Cataract Cataracts Chest pain Colon cancer Completed stroke Diabetes mellitus Family history: Allergy Family history: Arthritis Family history: Asthma Family history: Cardiovascular disease Family history: Coronary thrombosis Family history: Diabetes mellitus Family history: Gastrointestinal disease Family history: Hypertension Family history: Thyroid disorder Headache Hearing loss Heart disease History of - anemia History of - respiratory disease Hypercholesterolemia Hypercholesterolemia Infertile Malignant neoplasm of lung Myocardial infarction Myocardial infarction Psychotic disorder Respiratory disorder Stroke No Family History of: AIDS Abdominal aortic aneurysm Abdominal aortic aneurysm Berthoud's disease Berthoud's disease Alzheimer's disease Aphasia Aphasia Congenital disease Congenital heart disease Congenital heart disease Congestive heart failure Coronary thrombosis Cystic fibrosis Cystic fibrosis Deafness or hearing loss Dementia Dementia Drug abuse Dysphagia Dysphasia Family history: Alzheimer's disease Family history: Breast disease Family history: Glaucoma Family history: Osteoporosis Fibrocystic disease of breast Gastroenteritis Glaucoma Headache disorder Hereditary disease History of - disorder History of drug abuse Human immunodeficiency virus (HIV) seropositivity Infertility Kidney disease Kidney disease Neoplasm Not obtainable due to adoption Osteoporosis Parkinson's disease Parkinson's disease Prostate cancer Psychosocial problem Seizure disorder Seizure disorder Severe allergy Thyroid disease Tuberculosis Tuberculosis Visual disorder Visual impairment Review of Systems-General Constitutional: see HPI Physical Exam-General Problems Physical Exam Vital Signs Vital Signs - First Documented 08/07/17 17:00 Temp 101.6 Pulse 124 Resp 20 B/P (MAP) 126/68 (87) Pulse Ox 93 O2 Delivery Nasal Cannula O2 Flow Rate 4.00 Capillary Refill : General Appearance: no apparent distress HEENT: pharynx normal Neck: supple Respiratory: crackles (In the bases), wheezing (Minimal in the apical area) Cardiovascular: regular rate, rhythm Assessment/Plan Assessment/Plan Admission Diagnosis/Plan 1. Pneumonia bilateral bases -Patient currently at day number 2 of Levaquin -Breathing treatments DuoNeb every 4 hours. -Check CBC this a.m. 2. Rectal bleed--status post endoscopy both upper and lower 3. Skin lesion removal left thigh from August 08, 2017 Admission Status: Observation Clinical Quality Measures DVT/VTE Risk/Contraindication: Risk Factor Score Per Nursin RFS Level Per Nursing on Admit: 4+=Very High LEAH WOLF MD Aug 08, 2017 08:01
[2017-08-08 08:02] LABS: HEMOGLOBIN 11.3 G/DL (11.5-16.0); MEAN PLATELET VOLUME 8.5 FL (7.4-10.4); RED BLOOD COUNT 4.04 10^6/uL (4.35-5.85); RED CELL DISTRIBUTION WIDTH 18.2 % (10.0-14.5); WHITE BLOOD COUNT 12.9 10^3/uL (4.3-11.0)
[2017-08-08 08:18] LABS: BUN/CREATININE RATIO 10; CALCIUM 8.6 MG/DL (8.5-10.1); CARBON DIOXIDE 26 MMOL/L (21-32); CHLORIDE 103 MMOL/L (98-107); CREATININE SERUM 0.62 MG/DL (0.60-1.30); GFR ESTIMATED > 60; GLUCOSE 141 MG/DL (70-105); POTASSIUM 3.4 MMOL/L (3.6-5.0); SODIUM 135 MMOL/L (135-145)
[2017-08-08] MEDS: LORATADINE (CLARITIN) 10 MG TAB PO SCH (08:26)
[2017-08-08] MEDS: FENOFIBRATE 134 MG (LOFIBRA) CAPSULE PO SCH (08:26)
[2017-08-08] MEDS: LEVOFLOXACIN 750 MG/150 ML IV 150 ML IV SCH (08:26)
[2017-08-08] MEDS ORDERED: PATIENT MAY USE OWN MED,SINGLE MED PO SCH (08:30)
[2017-08-08] MEDS ORDERED: NON-FORMULARY MEDICATION 1 EA EA (Furosemide 80 MG) PO SCH (09:00)
[2017-08-08] MEDS ORDERED: NON-FORMULARY MEDICATION 1 EA EA (Fenofibrate Nanocrystallized (Fenofibrate) 145 MG) PO SCH (09:00)
[2017-08-08] MEDS ORDERED: LEVOFLOXACIN 750 MG/150 ML IV 150 ML IV SCH (09:00)
[2017-08-08] MEDS ORDERED: ENOXAPARIN 40 MG/0.4 ML (LOVENOX) SYR SC SCH (10:00)
[2017-08-08] MEDS: guaiFENesin/CODEINE (ROBITUSSIN AC) 10ML UDC PO PRN (13:38)
--- NOTE | 2017-08-08 17:23 | Progress Note (SOAP) ---
Subjective Date Seen by Provider: Aug 08, 2017 Time Seen by Provider: 15:00 Subjective/Events-last exam doing better today. mild fever this morning but none since. tolerating diet. mild cough. Objective Exam Vital Signs Date Time Temp Pulse Resp B/P (MAP) Pulse Ox O2 Delivery O2 Flow Rate FiO2 08/08/17 16:00 99.8 116 20 106/63 (77) 95 Nasal Cannula 4.00 08/08/17 13:13 95 Nasal Cannula 4.00 08/08/17 12:00 99.0 127 22 101/50 (67) 92 Nasal Cannula 4.00 08/08/17 10:30 95 Nasal Cannula 4.00 08/08/17 08:30 Nasal Cannula 4.00 08/08/17 08:00 99.3 116 18 111/69 (83) 93 Nasal Cannula 4.00 08/08/17 06:50 91 Nasal Cannula 4.00 08/08/17 04:00 98.7 98 18 97/57 (70) 94 Nasal Cannula 4.00 08/08/17 01:33 97.4 08/08/17 01:32 93 Nasal Cannula 4.00 08/08/17 00:00 102.2 120 22 128/86 (100) 92 Nasal Cannula 4.00 08/07/17 21:03 92 Nasal Cannula 4.00 08/07/17 21:00 Nasal Cannula 4.00 08/07/17 20:00 97.3 112 16 98/57 (71) 93 Nasal Cannula 4.00 08/07/17 18:57 84 Room Air 08/07/17 18:00 Nasal Cannula 4.00 I & O 08/08/17 07:00 Intake Total 1000 ml Balance 1000 ml Capillary Refill : General Appearance: No Apparent Distress HEENT: PERRL/EOMI Neck: Full Range of Motion Respiratory: Chest Non Tender, Rhonci Cardiovascular: Regular Rate, Rhythm Gastrointestinal: non tender, soft Extremity: Normal Capillary Refill Neurologic/Psychiatric: Alert, Oriented x3 Skin: Normal Color Lymphatic: No Adenopathy Results Lab Laboratory Tests 08/08/17 07:54: White Blood Count 12.9H, Red Blood Count 4.04L, Hemoglobin 11.3L, Hematocrit 35 , Mean Corpuscular Volume 87, Mean Corpuscular Hemoglobin 28, Mean Corpuscular Hemoglobin Concent 32, Red Cell Distribution Width 18.2H, Platelet Count 316, Mean Platelet Volume 8.5, Sodium Level 135, Potassium Level 3.4L, Chloride Level 103, Carbon Dioxide Level 26, Anion Gap 6, Blood Urea Nitrogen 6L, Creatinine 0.62, Estimat Glomerular Filtration Rate > 60, BUN/Creatinine Ratio 10, Glucose Level 141H, Calcium Level 8.6 Assessment/Plan Assessment/Plan Assess & Plan/Chief Complaint anemia with GERD s/p EGD and Colonoscopy with pneumonia. ambulate. continue levaquin. resume anticoagulation per dr. Rogers Clinical Quality Measures DVT/VTE Risk/Contraindication: Risk Factor Score Per Nursin RFS Level Per Nursing on Admit: 4+=Very High TEDDY PHILIP MD Aug 08, 2017 5:23 pm
[2017-08-08] MEDS: ENOXAPARIN 40 MG/0.4 ML (LOVENOX) SYR SC SCH (21:07)
[2017-08-08] MEDS: ACETAMINOPHEN 500 MG TAB (TYLENOL) PO PRN (21:07)
[2017-08-08] MEDS: MONTELUKAST 10 MG (SINGULAIR) TAB PO SCH (21:08)
[2017-08-09] MEDS: RT-ALBUTEROL/IPRATROPIUM 3 ML (DUONEB) VIAL INH SCH ×6 (02:03→22:38)
[2017-08-09 03:32] VITALS: BP 122/70
[2017-08-09] MEDS: CALCIUM CARB + VIT D 600 MG (CALCARB + D) TAB PO SCH ×2 (06:25→17:32)
[2017-08-09] MEDS: FUROSEMIDE 40 MG (LASIX) TAB PO SCH (06:25)
[2017-08-09] MEDS: PANTOPRAZOLE 40 MG (PROTONIX) TAB PO SCH (06:25)
[2017-08-09] MEDS: KCL 10 MEQ TAB (MICRO K) PO SCH ×3 (06:25→17:32)
[2017-08-09] MEDS: guaiFENesin/CODEINE (ROBITUSSIN AC) 10ML UDC PO PRN ×3 (06:31→20:00)
[2017-08-09 08:00] VITALS: BP 120/76
--- NOTE | 2017-08-09 08:03 | Progress Note (SOAP) ---
Subjective Date Seen by Provider: Aug 09, 2017 Time Seen by Provider: 07:45 Subjective/Events-last exam Patient continues to have cough. She has no respiratory distress and minimal wheezing. She does report her throat is sore and this typically happens after antibiotics and when thrush is setting in Objective Exam Vital Signs Date Time Temp Pulse Resp B/P (MAP) Pulse Ox O2 Delivery O2 Flow Rate FiO2 08/09/17 03:32 96.9 95 20 122/70 (87) 97 Nasal Cannula 3.00 08/09/17 02:04 99 Nasal Cannula 3.00 08/08/17 23:35 98.2 109 19 110/57 (74) 96 Nasal Cannula 3.00 08/08/17 22:29 96 Nasal Cannula 3.00 08/08/17 21:00 Nasal Cannula 3.00 08/08/17 20:53 98.4 109 18 122/67 (85) 96 Nasal Cannula 4.00 08/08/17 16:00 99.8 116 20 106/63 (77) 95 Nasal Cannula 4.00 08/08/17 13:13 95 Nasal Cannula 4.00 08/08/17 12:00 99.0 127 22 101/50 (67) 92 Nasal Cannula 4.00 08/08/17 10:30 95 Nasal Cannula 4.00 08/08/17 08:30 Nasal Cannula 4.00 I & O 08/09/17 07:00 Intake Total 1720 ml Output Total 2125 ml Balance -405 ml Capillary Refill : General Appearance: No Apparent Distress Respiratory: Wheezing Cardiovascular: Regular Rate, Rhythm Assessment/Plan Assessment/Plan Assess & Plan/Chief Complaint 1. Pneumonia bilateral bases -Patient currently at day number 2 of Levaquin -Breathing treatments DuoNeb every 4 hours. -Check CBC this a.m. 08/09 white blood cell count noted to be 12.9 from yesterday -Day number 2 Levaquin -Possibly home tomorrow on August 10, 2017 2. Rectal bleed--status post endoscopy both upper and lower 08/09 stable 3. Skin lesion removal left thigh from August 08, 2017 Clinical Quality Measures DVT/VTE Risk/Contraindication: Risk Factor Score Per Nursin RFS Level Per Nursing on Admit: 4+=Very High LEAH WOLF MD Aug 09, 2017 08:03
[2017-08-09] MEDS: FENOFIBRATE 134 MG (LOFIBRA) CAPSULE PO SCH (09:54)
[2017-08-09] MEDS: LORATADINE (CLARITIN) 10 MG TAB PO SCH (09:54)
[2017-08-09] MEDS: fluCOnazole (DIFLUCAN) 100 MG TAB PO SCH (09:54)
[2017-08-09] MEDS: ENOXAPARIN 40 MG/0.4 ML (LOVENOX) SYR SC SCH ×2 (09:55→20:06)
[2017-08-09] MEDS ORDERED: LEVOFLOXACIN 750 MG TAB (LEVAQUIN) PO SCH (11:00)
[2017-08-09 12:00] VITALS: BP 112/68
--- NOTE | 2017-08-09 12:37 | Progress Note (SOAP) ---
Subjective Date Seen by Provider: Aug 09, 2017 Time Seen by Provider: 12:00 Subjective/Events-last exam doing well. no fever/chills. tolerating diet. Objective Exam Vital Signs Date Time Temp Pulse Resp B/P (MAP) Pulse Ox O2 Delivery O2 Flow Rate FiO2 08/09/17 12:00 98.1 126 18 112/68 (83) 95 Nasal Cannula 3.00 08/09/17 10:16 95 Nasal Cannula 3.00 08/09/17 08:00 98.2 106 20 120/76 (91) 95 Nasal Cannula 3.00 08/09/17 07:38 95 Nasal Cannula 3.00 08/09/17 03:32 96.9 95 20 122/70 (87) 97 Nasal Cannula 3.00 08/09/17 02:04 99 Nasal Cannula 3.00 08/08/17 23:35 98.2 109 19 110/57 (74) 96 Nasal Cannula 3.00 08/08/17 22:29 96 Nasal Cannula 3.00 08/08/17 21:00 Nasal Cannula 3.00 08/08/17 20:53 98.4 109 18 122/67 (85) 96 Nasal Cannula 4.00 08/08/17 16:00 99.8 116 20 106/63 (77) 95 Nasal Cannula 4.00 08/08/17 13:13 95 Nasal Cannula 4.00 I & O 08/09/17 07:00 Intake Total 1720 ml Output Total 2125 ml Balance -405 ml Capillary Refill : General Appearance: No Apparent Distress HEENT: PERRL/EOMI Neck: Full Range of Motion Respiratory: Chest Non Tender, Rhonci Cardiovascular: Regular Rate, Rhythm Gastrointestinal: normal bowel sounds, non tender, soft Extremity: Normal Capillary Refill Neurologic/Psychiatric: Alert, Oriented x3 Skin: Normal Color Lymphatic: No Adenopathy Assessment/Plan Assessment/Plan Assess & Plan/Chief Complaint anemia with GERD s/p EGD and Colonoscopy with pneumonia. ambulate. continue levaquin. improving. will get another set of labs due to leukocytosis. home when stable. Clinical Quality Measures DVT/VTE Risk/Contraindication: Risk Factor Score Per Nursin RFS Level Per Nursing on Admit: 4+=Very High TEDDY PHILIP MD Aug 09, 2017 12:37 pm
[2017-08-09] MEDS: ACETAMINOPHEN 500 MG TAB (TYLENOL) PO PRN ×2 (14:34→22:37)
[2017-08-09 16:45] VITALS: BP 123/68
[2017-08-09] MEDS: MONTELUKAST 10 MG (SINGULAIR) TAB PO SCH (20:06)
[2017-08-09 20:25] VITALS: BP 128/75
[2017-08-10] VITALS: BP 115/62
[2017-08-10] MEDS: RT-ALBUTEROL/IPRATROPIUM 3 ML (DUONEB) VIAL INH SCH ×3 (02:52→10:34)
[2017-08-10 04:00] VITALS: BP 149/77
[2017-08-10] MEDS: CALCIUM CARB + VIT D 600 MG (CALCARB + D) TAB PO SCH (06:09)
[2017-08-10] MEDS: KCL 10 MEQ TAB (MICRO K) PO SCH (06:09)
[2017-08-10] MEDS: PANTOPRAZOLE 40 MG (PROTONIX) TAB PO SCH (06:09)
[2017-08-10] MEDS: FUROSEMIDE 40 MG (LASIX) TAB PO SCH (06:09)
[2017-08-10 07:03] LABS: BASOPHILS % (AUTO) 0 % (0-10); EOSINOPHILS # (AUTO) 0.2 10^3/uL (0.0-0.3); EOSINOPHILS % (AUTO) 3 % (0-10); HEMATOCRIT 35 % (35-52); HEMOGLOBIN 11.1 G/DL (11.5-16.0); LYMPHOCYTES # (AUTO) 1.5 X 10^3 (1.0-4.0); LYMPHOCYTES % (AUTO) 23 % (12-44); MEAN CORPUSCULAR HEMOGLOBIN 28 PG (25-34); MEAN CORPUSCULAR HGB CONC 32 G/DL (32-36); MEAN CORPUSCULAR VOLUME 87 FL (80-99); MEAN PLATELET VOLUME 8.6 FL (7.4-10.4); MONOCYTES # (AUTO) 0.6 X 10^3 (0.0-1.0); MONOCYTES % (AUTO) 9 % (0-12); NEUTROPHILS # (AUTO) 4.3 X 10^3 (1.8-7.8); NEUTROPHILS % (AUTO) 65 % (42-75); PLATELET COUNT 378 10^3/uL (130-400); WHITE BLOOD COUNT 6.6 10^3/uL (4.3-11.0)
[2017-08-10] MEDS: ENOXAPARIN 40 MG/0.4 ML (LOVENOX) SYR SC SCH (08:07)
[2017-08-10] MEDS: FENOFIBRATE 134 MG (LOFIBRA) CAPSULE PO SCH (08:07)
[2017-08-10] MEDS: fluCOnazole (DIFLUCAN) 100 MG TAB PO SCH (08:07)
[2017-08-10] MEDS: LORATADINE (CLARITIN) 10 MG TAB PO SCH (08:07)
[2017-08-10] MEDS: guaiFENesin/CODEINE (ROBITUSSIN AC) 10ML UDC PO PRN (08:07)
[2017-08-10] MEDS: ACETAMINOPHEN 500 MG TAB (TYLENOL) PO PRN (08:08)
--- NOTE | 2017-08-10 08:11 | Discharge Summary ---
Diagnosis/Chief Complaint Date of Admission August 07, 2017 Date of Discharge August 10, 2017 Discharge Date: Aug 10, 2017 Discharge Time: 10:00 Admission Diagnosis Admission Diagnosis 1. Pneumonia bibasilar 2. Rectal bleed--status post colonoscopy 3. Suspicious left thigh skin lesion --excised Discharge Diagnosis 1. Pneumonia bibasilar 2. Rectal bleed--status post colonoscopy 3. Suspicious left thigh skin lesion --excised Reason Hospital Visit 56-year-old female underwent EGD as well as colonoscopy yesterday afternoon on August 07, 2017 followed by subsequent fever. She reports she has had a cough off and on over the past week but she assumed this was from her allergies. X- ray following procedure revealed infiltrates bilaterally in the bases. Radiographically these appeared to be either atelectasis or infiltrates. Based upon her clinical history this most likely is pneumonia. She reports this morning no significant shortness of breath although cough persists. Discharge Summary Hospital Course Hospital Course Patient was admitted to [facility] on August 07, 2017 after having shortness of breath and cough. She had undergone colonoscopy and EGD for rectal bleed on the day of 07 August. Upon awakening after sedation for the procedures she was noted to be coughing quite a bit with dyspnea. She ultimately underwent chest x -ray and was found to have bilateral infiltrates. With her history of COPD exacerbation and her current dyspnea she was admitted to [facility]. Labs Laboratory Tests 08/07/17 14:15: Glucometer 122H 08/07/17 16:15: White Blood Count 13.5H, Red Blood Count 4.19L, Red Cell Distribution Width 18.4H, Neutrophils (%) (Auto) 86H, Lymphocytes (%) (Auto) 8L, Neutrophils # ( Auto) 11.7H, Potassium Level 3.4L, Glucose Level 124H, Calcium Level 7.9L 08/08/17 07:54: White Blood Count 12.9H, Red Blood Count 4.04L, Red Cell Distribution Width 18.2H, Potassium Level 3.4L, Glucose Level 141H, Hemoglobin 11.3L, Blood Urea Nitrogen 6L 08/10/17 06:17: Red Blood Count 4.00L, Red Cell Distribution Width 18.0H, Hemoglobin 11.1L Procedures 1. EGD and colonoscopy per Dr. Nichole 2. Excision of suspicious skin lesion left thigh Dr. Nichole Discharge Physical Examination Allergies: Coded Allergies: aspirin (Verified Allergy, Severe, ANAPHYLAXIS, 08/07/17) ibuprofen (Verified Allergy, Severe, ANAPHYLAXIS, 08/07/17) ketorolac (Verified Allergy, Severe, ANAPHYLAXIS, 08/07/17) tetanus and diphtheria toxoids (Unverified Allergy, Severe, ANAPHYLAXIS, ) aloe (Verified Allergy, Mild, RASH, 08/07/17) hydrocodone (Verified Allergy, Mild, 08/07/17) latex (Verified Allergy, Mild, RASH, 08/07/17) OCCASIONALLY IS IRRITATING SKIN scopolamine (Verified Allergy, Mild, 08/07/17) iodine (Verified Adverse Reaction, Unknown, 08/07/17) Patient states she got dizzy, diaphoretic and saw stars. Uncoded Allergies: ALOE VERA (Allergy, Unknown, 12/23/05) SILK SUTURES (Adverse Reaction, Unknown, BODY REJECTS SUTURES, 10/07/13) Vitals & I&Os Vital Signs Date Time Temp Pulse Resp B/P (MAP) Pulse Ox O2 Delivery O2 Flow Rate FiO2 08/10/17 06:51 94 Nasal Cannula 3.00 08/10/17 04:00 99.0 100 20 149/77 (101) General Appearance: No Acute Distress Respiratory: Clear to Auscultation (Except for few Rales in bases) Cardiovascular: Regular Rate (With occasional ectopy) Abdominal: Soft Extremities: No Clubbing, No Edema Skin: No Rashes Discharge Home Medications Reviewed and agree with Discharge Medication list on patient's Discharge Instruction sheet Instructions to Patient/Family Please see electronic discharge instructions given to patient. Clinical Quality Measures DVT/VTE Risk/Contraindication: Risk Factor Score Per Nursin RFS Level Per Nursing on Admit: 4+=Very High LEAH WOLF MD Aug 10, 2017 08:11
[2017-08-10] MEDS ORDERED: LEVO750T39 PO (08:17)
[2017-08-10] MEDS ORDERED: FLUC100T6 PO (08:17)
[2017-08-10] MEDS ORDERED: NYST1000 PO (08:17)
--- NOTE | 2017-08-10 08:19 | Discharge Inst-Simple/Standard ---
Discharge Inst-Standard Discharge Medications New, Converted or Re-Newed RX: Transmitted to Pharmacy Patient Instructions/Follow Up Plan of Care/Instructions/FU: Follow-up with Dr. Nichole for suture removal 1 week. Follow-up with Dr. Wolf within 5 days. Activity as Tolerated: Yes Discharge Diet: Regular Diet, Avoid Fatty Foods Return to The Hospital For: Worsening shortness of breath. LEAH WOLF MD Aug 10, 2017 08:19
[2017-08-10 08:30] VITALS: BP 109/76
[2017-08-10 10:12] VITALS: BP 109/76
== END 2017-08-10 08:17 | disposition home or self-care (01) ==
LOC: ENDO 11:05 → 4TH 16:17 → ENDO 16:55 → 4TH 08-10 11:15 → ENDO 08-10 11:15
PROVIDERS: ADMIT Surgery; ATTEND Surgery
DX: K21.0 Gastro-esophageal reflux disease with esophagitis (principal); K57.30 Diverticulosis of large intestine without perforation or abscess without bleeding; K44.9 Diaphragmatic hernia without obstruction or gangrene; K29.60 Other gastritis without bleeding; K64.8 Other hemorrhoids; Z86.711 Personal history of pulmonary embolism; D68.59 Other primary thrombophilia; Z86.718 Personal history of other venous thrombosis and embolism; Z79.01 Long term (current) use of anticoagulants; J44.9 Chronic obstructive pulmonary disease, unspecified; I10 Essential (primary) hypertension; Z88.6 Allergy status to analgesic agent; Z88.7 Allergy status to serum and vaccine; Z79.899 Other long term (current) drug therapy; Z87.891 Personal history of nicotine dependence; Z80.0 Family history of malignant neoplasm of digestive organs; J18.9 Pneumonia, unspecified organism
CPT/HCPCS: 36415; 71046; 80048; 82962; 85025; 85027; 94640; 94760; 99211; G0378

== ENCOUNTER 2017-11-16 18:22 | Observation (INO) | payer MEDICAID ==
[~2017-11-16] VITALS: Ht 165.1 cm; Wt 81.4 kg
[~2017-11-16 18:22] MED LIST changes: +FENO145T37 PO; +FLUC100T6 PO; +LEVO750T39 PO; +NYST1000 PO; +PRD10T PO
[2017-11-16] MEDS ORDERED: RT-ALBUTEROL/IPRATROPIUM 3 ML (DUONEB) VIAL ONE ×2 (19:03→19:20)
--- NOTE | 2017-11-16 19:22 | ED Respiratory ---
General Chief Complaint: Respiratory Problems History of Present Illness Date Seen by Provider: Nov 16, 2017 Time Seen by Provider: 18:55 Initial Comments 57-year-old female familiar to this facility presents for COPD exacerbation. She was treated for upper respiratory infection and late October with Levaquin and a tapered dose of prednisone. Since the November the patient reports that her symptoms have been worsening again. She has a productive cough, SOA and hypoxia. Her initial SaO2 on room air was 79-81%. She reports using her computer 2 puffs every 2 hours with no improvement in her symptoms. She was recently started on Pulmicort per Dr. Wolf, otherwise no changes in her medication or recent medical history. She uses home oxygen per nasal cannula at night, she has not been needing it during the day. Timing/Duration: getting worse Severity: moderate Prior Episodes/Possible Cause: allergen exposure, smoke exposure (fireworks) Modifying Factors: Improves With Albuterol Inhaler Associated Symptoms: shortness of breath, wheezing Allergies and Home Medications Allergies Coded Allergies: aspirin (Verified Allergy, Severe, ANAPHYLAXIS, 08/07/17) ibuprofen (Verified Allergy, Severe, ANAPHYLAXIS, 08/07/17) ketorolac (Verified Allergy, Severe, ANAPHYLAXIS, 08/07/17) tetanus and diphtheria toxoids (Unverified Allergy, Severe, ANAPHYLAXIS, ) aloe (Verified Allergy, Mild, RASH, 08/07/17) hydrocodone (Verified Allergy, Mild, 08/07/17) latex (Verified Allergy, Mild, RASH, 08/07/17) OCCASIONALLY IS IRRITATING SKIN scopolamine (Verified Allergy, Mild, 08/07/17) iodine (Verified Adverse Reaction, Unknown, 08/07/17) Patient states she got dizzy, diaphoretic and saw stars. Uncoded Allergies: ALOE VERA (Allergy, Unknown, 12/23/05) SILK SUTURES (Adverse Reaction, Unknown, BODY REJECTS SUTURES, 10/07/13) Home Medications Albuterol Sulfate 2.5 Mg/3 Ml Vial.neb, 2.5 MG NEB TID, (Reported) MIXES WITH IPRATROPIUM SOLUTION Albuterol Sulfate 8.5 Gm Hfa.aer.ad, 2 PUFF IH Q4H PRN for SHORTNESS OF BREATH, (Reported) Albuterol Sulfate 2.5 Mg/3 Ml Vial.neb, 2.5 MG NEB Q2H PRN for SHORTNESS OF BREATH, (Reported) Alprazolam 1 Mg Tablet, 1 MG PO Q8H PRN for ANXIETY, (Reported) Calcium Carbonate/Vitamin D3 1 Each Tablet, 1 TAB PO BID, (Reported) Diltiazem HCl 120 Mg Capsule.er, 120 MG PO DAILY, (Reported) Fenofibrate Nanocrystallized 145 Mg Tablet, 145 MG PO DAILY, (Reported) Furosemide 80 Mg Tablet, 80 MG PO DAILY, (Reported) Hydrocodone/Acetaminophen 1 Each Tablet, 1 TAB PO Q6H PRN for PAIN-MODERATE, ( Reported) Hyoscyamine Sulfate 0.125 Mg Tab.rapdis, 0.125 MG SL Q6H PRN for ABDOMINAL PAIN, (Reported) Ipratropium [place] 0.2 Mg/1 Ml Solution, 1 VIAL NEB TID, (Reported) MIXES WITH ALBUTEROL SOLUTION Loratadine 10 Mg Tablet, 10 MG PO DAILY, (Reported) Montelukast Sodium 10 Mg Tablet, 10 MG PO HS, (Reported) Pantoprazole Sodium 40 Mg Tablet.dr, 40 MG PO DAILY, (Reported) Potassium Chloride 10 Meq Tablet.er, 20 MEQ PO TID, (Reported) TAKES 2 (10 MEQ) TABLETS Warfarin Sodium 4 Mg Tablet, 4 MG PO 1800, (Reported) Patient Home Medication List Home Medication List Reviewed: Yes Review of Systems Constitutional: no symptoms reported, see HPI Respiratory: see HPI, cough, phlegm, short of breath, wheezing All Other Systems Reviewed Negative Unless Noted: Yes Past Efgzwjp-Fxndky-Dnauks Hx Past Med/Social Hx: Reviewed Nursing Past Med/Soc Hx Patient Social History Drug of Choice: + IV COCAINE USE Type Used: Cigarettes Former Smoker, Quit: September 12, 2003 2nd Hand Smoke Exposure: No Recent Foreign Travel: No Contact w/Someone Who Travel: No Recent Hopitalizations: No Immunizations Up To Date Tetanus Booster (TDap): Unknown PED Vaccines UTD: No Date of Pneumonia Vaccine: Sep 05, 2012 Date of Influenza Vaccine: Mar 11, 2012 Seasonal Allergies Seasonal Allergies: Yes Past Medical History Surgeries: Yes (shoulder scope, knee scope, d & c, trapease filter, l knee replacement) Abdominal, Adenoidectomy, Section, Gallbladder, Hysterectomy, Orthopedic, Tonsillectomy, Vascular Surgery Respiratory: Yes (O2 AT NIGHT 2-3L AND PRN; NOCTURNAL HYPOXIA) Asthma, Pneumonia, Chronic Bronchitis, Pulmonary Embolism, COPD, Emphysema Currently Using BIPAP: No Cardiac: Yes (VENA CAVA FILTER 2009; VARICOSE VEINS WITH VENOUS STASIS ULCERS) Chronic Edema/Swelling, Deep Vein Thrombosis, High Cholesterol, Hypertension, Peripheral Vascular Neurological: Yes Neuropathy 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 Disorders: No 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 Disorders: Denies [employer]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, 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 Sexually Transmitted Disease: No HIV/AIDS: No 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: Yes Bladder Infection, Kidney Stones Gastrointestinal: Yes Abdominal Hernia, Colitis, Gastroesophageal Reflux, Chronic Constipation, Diverticulosis, Polyps, Hiatal Hernia, Irritable Bowel Musculoskeletal: Yes (left knee) Arthritis Endocrine: No (PRE-DIABETIC ) HEENT: Yes (GLASSES) Tinnitis Loss of Vision: Bilateral Hearing Impairment: Hard of Hearing Cancer: No Did You Recieve Any Treatments: No Psychosocial: Yes Anxiety Integumentary: Yes (CHRONIC VENOUS STASIS CHANGES AND ULCERS) Recent Skin Changes Blood Disorders: Yes (HX OF DVT'S/ P.E.'S; PROBABLE PROTEIN C DEFICIENCY) Adverse Reaction/Blood Tranf: No (HAS HAD BLOOD WITH NO PROBLEMS) Family Medical History Alcoholism Alcoholism Arthritis Asthma Cancer Cancer of colon Cancer of mouth Cardiovascular disease Cataract Cataracts Chest pain Colon cancer Completed stroke Diabetes mellitus Family history: Allergy Family history: Arthritis Family history: Asthma Family history: Cardiovascular disease Family history: Coronary thrombosis Family history: Diabetes mellitus Family history: Gastrointestinal disease Family history: Hypertension Family history: Thyroid disorder Headache Hearing loss Heart disease History of - anemia History of - respiratory disease Hypercholesterolemia Hypercholesterolemia Infertile Malignant neoplasm of lung Myocardial infarction Myocardial infarction Psychotic disorder Respiratory disorder Stroke No Family History of: AIDS Abdominal aortic aneurysm Abdominal aortic aneurysm Dent's disease Dent's disease Alzheimer's disease Aphasia Aphasia Congenital disease Congenital heart disease Congenital heart disease Congestive heart failure Coronary thrombosis Cystic fibrosis Cystic fibrosis Deafness or hearing loss Dementia Dementia Drug abuse Dysphagia Dysphasia Family history: Alzheimer's disease Family history: Breast disease Family history: Glaucoma Family history: Osteoporosis Fibrocystic disease of breast Gastroenteritis Glaucoma Headache disorder Hereditary disease History of - disorder History of drug abuse Human immunodeficiency virus (HIV) seropositivity Infertility Kidney disease Kidney disease Neoplasm Not obtainable due to adoption Osteoporosis Parkinson's disease Parkinson's disease Prostate cancer Psychosocial problem Seizure disorder Seizure disorder Severe allergy Thyroid disease Tuberculosis Tuberculosis Visual disorder Visual impairment Cancer, COPD, Vascular Disease Physical Exam Vital Signs Vital Signs - First Documented 11/16/17 18:55 Temp 99.5 Pulse 120 Resp 28 B/P (MAP) 128/94 (105) Pulse Ox 87 O2 Delivery Nasal Cannula O2 Flow Rate 3.00 Capillary Refill : General Appearance: WD/WN, moderate distress Eyes: Bilateral Eye Normal Inspection, Bilateral Eye PERRL, Bilateral Eye EOMI HEENT: PERRL/EOMI, normal ENT inspection, TMs normal, pharynx normal Neck: non-tender, full range of motion, supple, normal inspection Respiratory: chest non-tender, respiratory distress (mild), decreased breath sounds, accessory muscle use, wheezing, expiration, inspiration Cardiovascular: normal peripheral pulses, regular rate, rhythm Gastrointestinal: normal bowel sounds, non tender, soft Extremities: normal range of motion, non-tender, normal inspection, no pedal edema, normal capillary refill Neurologic/Psychiatric: no motor/sensory deficits, alert, normal mood/affect, oriented x 3 Focused Exam Lactate Level 11/16/17 19:05: Lactic Acid Level 1.12 Lactic Acid Level Laboratory Tests Test 11/16/17 19:05 Lactic Acid Level 1.12 MMOL/L (0.50-2.00) Progress/Results/Core Measures Suspected Sepsis Recent Fever Within 48 Hours: No Infection Criteria Present: None New/Unexplained Altered Menta: No Within 3hrs of presentation: Admin fluids, Lactate level SIRS Temperature: Pulse: Respiratory Rate: Laboratory Tests 11/16/17 19:05: White Blood Count 8.3 Blood Pressure / Mean: 11/16/17 19:05: Lactic Acid Level 1.12 Laboratory Tests 11/16/17 19:05: Creatinine 0.76, Platelet Count 303, Total Bilirubin 0.5 Results/Orders Lab Results Laboratory Tests Test 11/16/17 19:05 Range/Units White Blood Count 8.3 4.3-11.0 10^3/uL Red Blood Count 4.70 4.35-5.85 10^6/uL Hemoglobin 13.3 11.5-16.0 G/DL Hematocrit 41 35-52 % Mean Corpuscular Volume 87 80-99 FL Mean Corpuscular Hemoglobin 28 25-34 PG Mean Corpuscular Hemoglobin Concent 33 32-36 G/DL Red Cell Distribution Width 15.7 H 10.0-14.5 % Platelet Count 303 130-400 10^3/uL Mean Platelet Volume 9.1 7.4-10.4 FL Neutrophils (%) (Auto) 51 42-75 % Lymphocytes (%) (Auto) 31 12-44 % Monocytes (%) (Auto) 8 0-12 % Eosinophils (%) (Auto) 9 0-10 % Basophils (%) (Auto) 1 0-10 % Neutrophils # (Auto) 4.3 1.8-7.8 X 10^3 Lymphocytes # (Auto) 2.6 1.0-4.0 X 10^3 Monocytes # (Auto) 0.7 0.0-1.0 X 10^3 Eosinophils # (Auto) 0.7 H 0.0-0.3 10^3/uL Basophils # (Auto) 0.0 0.0-0.1 10^3/uL Sodium Level 145 135-145 MMOL/L Potassium Level 3.7 3.6-5.0 MMOL/L Chloride Level 110 H 98-107 MMOL/L Carbon Dioxide Level 24 21-32 MMOL/L Anion Gap 11 5-14 MMOL/L Blood Urea Nitrogen 15 7-18 MG/DL Creatinine 0.76 0.60-1.30 MG/DL Estimat Glomerular Filtration Rate > 60 BUN/Creatinine Ratio 20 Glucose Level 94 70-105 MG/DL Lactic Acid Level 1.12 0.50-2.00 MMOL/L Calcium Level 10.0 8.5-10.1 MG/DL Total Bilirubin 0.5 0.1-1.0 MG/DL Aspartate Amino Transf (AST/SGOT) 21 5-34 U/L Alanine Aminotransferase (ALT/SGPT) 24 0-55 U/L Alkaline Phosphatase 80 40-136 U/L B-Type Natriuretic Peptide < 10.0 <100.0 PG/ML Total Protein 7.4 6.4-8.2 GM/DL Albumin 4.0 3.2-4.5 GM/DL My Orders Orders - STEPHANIE GREENWOOD Albuterol/Ipra Inhalation Soln (Duoneb I (11/16/17 19:03) Rt Request For Service (11/16/17 19:16) Chest Pa/Lat (2 View) (11/16/17 19:16) Cbc With Automated Diff (11/16/17 19:16) Comprehensive Metabolic Panel (11/16/17 19:16) Blood Culture (11/16/17 19:16) Lactic Acid Analyzer (11/16/17 19:16) Albuterol/Ipra Inhalation Soln (Duoneb I (11/16/17 19:20) BNP (11/16/17 19:31) Saline Lock/Iv-Start (11/16/17 19:58) Ns Iv 500 Ml (Sodium Chloride 0.9%) (11/16/17 19:58) Methylprednisolone Sod Succ (Solu-Medrol (11/16/17 20:00) Ns Iv 500 Ml (Sodium Chloride 0.9%) (11/16/17 20:08) Methylprednisolone Sod Succ (Solu-Medrol (11/16/17 20:08) Medications Given in ED Current Medications Medications Dose Ordered Sig/Nahomi Route Start Time Stop Time Status Last Admin Dose Admin Albuterol/ Ipratropium 3 ml STK-MED ONCE .ROUTE 11/16/17 19:03 11/16/17 19:05 DC 11/16/17 19:28 3 ML Albuterol/ Ipratropium 3 ml STK-MED ONCE .ROUTE 11/16/17 19:20 11/16/17 19:23 DC 11/16/17 19:28 3 ML Methylprednisolone Sodium Succinate 125 mg ONCE ONCE IVP 11/16/17 20:00 11/16/17 20:12 DC 11/16/17 20:11 125 MG Sodium Chloride 500 ml @ 0 mls/hr Q0M ONCE IV 11/16/17 19:58 11/16/17 20:12 DC 11/16/17 20:15 200 MLS/HR Vital Signs/I&O 11/16/17 11/16/17 11/16/17 18:55 19:06 19:23 Temp 99.5 Pulse 120 Resp 28 B/P (MAP) 128/94 (105) Pulse Ox 87 88 89 O2 Delivery Nasal Cannula Nasal Cannula Nasal Cannula O2 Flow Rate 3.00 3.00 3.00 Capillary Refill : Progress Note : Time: 18:55 Progress Note Initial evaluation completed, patient immediately placed on oxygen per nasal cannula at 3 L, improvement in her O2 saturation to upper 80s and low 90%. Patient having tachycardia and tachypnea. Respiratory therapy paged for DuoNeb treatment. 1930 some improvement in air movement and less wheezing after first DuoNeb treatment, will complete a second DuoNeb treatment respiratory rate is now at 24 breaths a minute. Heart rate is continuing in the 98-112. SaO2 maintained at 90%. 1999 patient reports significant improvement after the second DuoNeb treatment. Lung sounds have improved air movement but continued wheezing. Will give Solu- Medrol 125 mg IV. Patient having rhinorrhea, she states that her allergies have been worse lately, she's been unable to use nasal steroids due to cost and being [id number] now. Will start Nasacort and discussed generic Mometasone spray at [employer], < $8. She reports that would be affordable on her budget. 2014 labs essentially normal, WBC 8.6, lactic acid 1.12. Will give normal saline 500 ml IV. Discussed risk versus benefits of admission or home treatment. The patient is agreeable to overnight admission for continued monitoring and respiratory therapy. [address] Levine per phone, agreed to admit patient observation. Bridge Orders completed. 2044 patient having continued coughing, will give Phenergan with codeine 5 ml. Diagnostic Imaging Diagonstic Imaging: Xray Plain Films/CT/US/NM/MRI: chest Comments NAME: SUJEY FELIZ GREENWOOD [facility] REC#: [id number] PT STATUS: REG ER : 1960 PHYSICIAN: STEPHANIE GREENWOOD ADMIT DATE: 11/16/17/ER Draft Date of Exam:11/16/17 CHEST PA/LAT (2 VIEW) INDICATION: Shortness of breath and asthma. EXAMINATION: PA and lateral views of the chest were obtained at 8:05 p.m. COMPARISON: 09/02/2017. FINDINGS: Heart and mediastinal silhouette are normal in appearance. There is unchanged central vascular congestion compared to the prior study. There are chronic appearing increased basilar markings. There is hyperinflation compatible COPD. There is no new consolidation or pleural fluid. IMPRESSION: COPD changes with chronic appearing increased basilar markings appearing similar to the prior study. Mild central vascular prominence. No new consolidation or pleural fluid. Dictated on workstation # [id number] Dict: 11/16/171949 Trans: 11/16/171953 [facility] [id number] Interpreted by: ANOOP VAUGHN MD Electronically signed by: Reviewed: Reviewed by Me (no significant interval change from last chest x- ray on 09/02/2017.) Departure Impression Primary Impression: COPD exacerbation Additional Impressions: Hypoxemia Allergic rhinitis Qualified Codes: J30.89 - Other allergic rhinitis Disposition: ADMITTED INPATIENT Condition: Stable Admissions Decision to Admit Reason: Admit from ER (General) Decision to Admit/Date: Nov 16, 2017 Time/Decision to Admit Time: 20:30 Departure-Patient Inst. Referrals: LEAH WOLF MD (PCP/Family) Primary Care Physician Copy Copies To 1: LEAH WOLF MD, AMY ARNP Nov 16, 2017 19:22
[2017-11-16 19:25] LABS: BASOPHILS % (AUTO) 1 % (0-10); EOSINOPHILS # (AUTO) 0.7 10^3/uL (0.0-0.3); EOSINOPHILS % (AUTO) 9 % (0-10); HEMATOCRIT 41 % (35-52); HEMOGLOBIN 13.3 G/DL (11.5-16.0); LYMPHOCYTES # (AUTO) 2.6 X 10^3 (1.0-4.0); LYMPHOCYTES % (AUTO) 31 % (12-44); MEAN CORPUSCULAR HEMOGLOBIN 28 PG (25-34); MEAN CORPUSCULAR HGB CONC 33 G/DL (32-36); MEAN CORPUSCULAR VOLUME 87 FL (80-99); MEAN PLATELET VOLUME 9.1 FL (7.4-10.4); MONOCYTES # (AUTO) 0.7 X 10^3 (0.0-1.0); MONOCYTES % (AUTO) 8 % (0-12); NEUTROPHILS # (AUTO) 4.3 X 10^3 (1.8-7.8); NEUTROPHILS % (AUTO) 51 % (42-75); PLATELET COUNT 303 10^3/uL (130-400); RED CELL DISTRIBUTION WIDTH 15.7 % (10.0-14.5); WHITE BLOOD COUNT 8.3 10^3/uL (4.3-11.0)
[2017-11-16 19:40] LABS: ALANINE AMINOTRANSFERASE 24 U/L (0-55); ALKALINE PHOSPHATASE 80 U/L (40-136); BILIRUBIN,TOTAL 0.5 MG/DL (0.1-1.0); BUN/CREATININE RATIO 20; CARBON DIOXIDE 24 MMOL/L (21-32); CHLORIDE 110 MMOL/L (98-107); CREATININE SERUM 0.76 MG/DL (0.60-1.30); GFR ESTIMATED > 60; GLUCOSE 94 MG/DL (70-105); POTASSIUM 3.7 MMOL/L (3.6-5.0); SODIUM 145 MMOL/L (135-145); TOTAL PROTEIN 7.4 GM/DL (6.4-8.2)
--- NOTE | 2017-11-16 19:54 | Diagnostic Imaging Report ---
INDICATION: Shortness of breath and asthma. EXAMINATION: PA and lateral views of the chest were obtained at 8:05 p.m. COMPARISON: 09/02/2017. FINDINGS: Heart and mediastinal silhouette are normal in appearance. There is unchanged central vascular congestion compared to the prior study. There are chronic appearing increased basilar markings. There is hyperinflation compatible COPD. There is no new consolidation or pleural fluid. IMPRESSION: COPD changes with chronic appearing increased basilar markings appearing similar to the prior study. Mild central vascular prominence. No new consolidation or pleural fluid. Dictated by: Dictated on workstation # [id number]
[2017-11-16] MEDS ORDERED: NS IV 500 ML 500 ML IV ONE (19:58)
[2017-11-16] MEDS ORDERED: methylPREDNISolone 125 MG (Solu-MEDROL) VIAL IVP ONE (20:00)
[2017-11-16] MEDS ORDERED: methylPREDNISolone 125 MG (Solu-MEDROL) VIAL ONE (20:08)
[2017-11-16] MEDS ORDERED: NS IV 500 ML 500 ML ONE (20:08)
[2017-11-16] MEDS ORDERED: PROMETHAZINE/ CODEINE SYRUP 5 ML UDC ONE (21:27)
[2017-11-16 21:45] VITALS: BP 120/74
[2017-11-16] MEDS ORDERED: D5 1/2 NS 1000 ML IV SOLUTION 1,000 ML IV ONE (23:01)
[2017-11-16] MEDS ORDERED: CATHETER FLUSH 10 ML SYR IV PRN (23:15)
[2017-11-16] MEDS ORDERED: PROMETHAZINE/ CODEINE SYRUP 5 ML UDC PO PRN (23:15)
[2017-11-16] MEDS ORDERED: D5 1/2 NS 1000 ML IV SOLUTION 1,000 ML IV SCH (23:15)
[2017-11-17 00:25] VITALS: BP 108/72
[2017-11-17] MEDS: RT-ALBUTEROL/IPRATROPIUM 3 ML (DUONEB) VIAL IH SCH ×3 (01:36→09:56)
[2017-11-17 04:02] LABS: BASOPHILS % (AUTO) 0 % (0-10); EOSINOPHILS % (AUTO) 0 % (0-10); HEMATOCRIT 38 % (35-52); HEMOGLOBIN 12.4 G/DL (11.5-16.0); LYMPHOCYTES # (AUTO) 0.5 X 10^3 (1.0-4.0); LYMPHOCYTES % (AUTO) 10 % (12-44); MEAN CORPUSCULAR HEMOGLOBIN 29 PG (25-34); MEAN CORPUSCULAR HGB CONC 33 G/DL (32-36); MEAN CORPUSCULAR VOLUME 88 FL (80-99); MEAN PLATELET VOLUME 9.4 FL (7.4-10.4); MONOCYTES % (AUTO) 1 % (0-12); NEUTROPHILS # (AUTO) 4.7 X 10^3 (1.8-7.8); NEUTROPHILS % (AUTO) 90 % (42-75); PLATELET COUNT 259 10^3/uL (130-400); RED BLOOD COUNT 4.34 10^6/uL (4.35-5.85); RED CELL DISTRIBUTION WIDTH 15.4 % (10.0-14.5); WHITE BLOOD COUNT 5.2 10^3/uL (4.3-11.0)
[2017-11-17 04:24] LABS: ALANINE AMINOTRANSFERASE 22 U/L (0-55); ALBUMIN 3.8 GM/DL (3.2-4.5); ALKALINE PHOSPHATASE 75 U/L (40-136); BILIRUBIN,TOTAL 0.3 MG/DL (0.1-1.0); BUN/CREATININE RATIO 18; CALCIUM 9.2 MG/DL (8.5-10.1); CARBON DIOXIDE 20 MMOL/L (21-32); CHLORIDE 110 MMOL/L (98-107); CREATININE SERUM 0.76 MG/DL (0.60-1.30); GFR ESTIMATED > 60; GLUCOSE 250 MG/DL (70-105); POTASSIUM 3.7 MMOL/L (3.6-5.0); SODIUM 142 MMOL/L (135-145); TOTAL PROTEIN 7.2 GM/DL (6.4-8.2)
[2017-11-17 04:39] LABS: LYMPHOCYTES % (MANUAL) 10 %; MONOCYTES % (MANUAL) 2 %; NEUTROPHILS % (MANUAL) 88 %; RBC MORPH NORMAL
[2017-11-17 04:41] VITALS: BP 108/74
[2017-11-17] MEDS ORDERED: CATHETER FLUSH 10 ML SYR IV SCH (06:00)
[2017-11-17] MEDS ORDERED: methylPREDNISolone 125 MG (Solu-MEDROL) VIAL IV SCH (06:00)
[2017-11-17 08:02] VITALS: BP 110/70
[2017-11-17] MEDS ORDERED: ENOXAPARIN 40 MG/0.4 ML (LOVENOX) SYR SQ SCH (08:15)
[2017-11-17] MEDS: FLUTICASONE NASAL SPRAY (FLONASE) 16 GM BTL NS SCH ×2 (08:59→09:00)
[2017-11-17] MEDS ORDERED: LORATADINE (CLARITIN) 10 MG TAB PO SCH (09:00)
[2017-11-17] MEDS ORDERED: PRD20T PO (09:25)
--- NOTE | 2017-11-17 09:27 | Discharge Instructions ---
Discharge [facility] Discharge Medications New, Converted or Re-Newed RX: Transmitted to Pharmacy ([facility]) New Medications: Prednisone (Prednisone) 20 Mg Tab 20 MG PO as directed, #6 TAB 0 Refills 60mg (3 tabs) by mouth daily x3d 40mg (2 tabs) by mouth daily x3d 20 mg (1 tab) by mouth daily x3d Continued Medications: Albuterol Sulfate (Albuterol Sulfate) 2.5 Mg/3 Ml Vial.neb 2.5 MG NEB TID, EA MIXES WITH IPRATROPIUM SOLUTION Albuterol Sulfate (Proair Hfa) 8.5 Gm Hfa.aer.ad 2 PUFF IH Q4H PRN for SHORTNESS OF BREATH, INHALER Albuterol Sulfate (Albuterol Sulfate) 2.5 Mg/3 Ml Vial.neb 2.5 MG NEB Q2H PRN for SHORTNESS OF BREATH, EA Alprazolam (Alprazolam) 1 Mg Tablet 1 MG PO Q8H PRN for ANXIETY, TAB Calcium Carbonate/Vitamin D3 (Calcium 600 + Vit D 800 Tab) 1 Each Tablet 1 TAB PO BID, TAB Diltiazem HCl (Tiazac) 120 Mg Capsule.er 120 MG PO DAILY, CAP Fenofibrate Nanocrystallized (Fenofibrate) 145 Mg Tablet 145 MG PO DAILY, TAB Furosemide (Furosemide) 80 Mg Tablet 80 MG PO DAILY, TAB Hydrocodone/Acetaminophen (Hydrocodon-Acetaminophn 10-325) 1 Each Tablet 1 TAB PO Q6H PRN for PAIN-MODERATE, TAB Hyoscyamine Sulfate (Hyoscyamine Sulfate) 0.125 Mg Tab.rapdis 0.125 MG SL Q6H PRN for ABDOMINAL PAIN, TAB Ipratropium [place] (Ipratropium [place]) 0.2 Mg/1 Ml Solution 1 VIAL NEB TID, EA MIXES WITH ALBUTEROL SOLUTION Loratadine (Loratadine) 10 Mg Tablet 10 MG PO DAILY, TAB Montelukast Sodium (Montelukast Sodium) 10 Mg Tablet 10 MG PO HS, TAB Pantoprazole Sodium (Pantoprazole Sodium) 40 Mg Tablet.dr 40 MG PO DAILY, TAB Potassium Chloride (Potassium Chloride) 10 Meq Tablet.er 20 MEQ PO TID, TAB TAKES 2 (10 MEQ) TABLETS Warfarin Sodium (Jantoven) 4 Mg Tablet 4 MG PO 1800, TAB Patient Instructions Goal/Follow Up Appt: Follow-up w/ Dr. Wolf 11/18/17 as scheduled Activity & Diet Discharge Diet: No Restrictions Copy Copies To 1: LEAH WOLF MD, LINDA K DO Nov 17, 2017 09:26
[2017-11-17 10:20] VITALS: BP 110/70
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
[2017-11-17] MEDS ORDERED: MONTELUKAST 10 MG (SINGULAIR) TAB PO SCH (22:00)
== END 2017-11-17 09:25 | disposition home or self-care (01) ==
LOC: EDUNIT# 18:22 → ER 18:25 → UNDOADMOB 20:45 → 4TH 20:45 → UNDODISOB 11-17 10:20
PROVIDERS: ADMIT Family Medicine; ATTEND Family Medicine
DX: J44.1 Chronic obstructive pulmonary disease with (acute) exacerbation (principal); J30.9 Allergic rhinitis, unspecified; I73.9 Peripheral vascular disease, unspecified; I10 Essential (primary) hypertension; E78.5 Hyperlipidemia, unspecified; R60.9 Edema, unspecified; K21.9 Gastro-esophageal reflux disease without esophagitis; Z86.718 Personal history of other venous thrombosis and embolism; Z79.01 Long term (current) use of anticoagulants; Z79.899 Other long term (current) drug therapy; Z87.891 Personal history of nicotine dependence
CPT/HCPCS: 36415; 71046; 80053; 83605; 83880; 85007; 85025; 85027; 87040; 94640; 94760; 96361; 96374; G0378

== ENCOUNTER 2018-02-01 09:01 | Emergency (ER) | payer MEDICAID ==
[~2018-02-01] VITALS: Ht 165.1 cm; Wt 83.5 kg
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
[2018-02-01 10:12] VITALS: BP 111/82
== END 2018-02-01 10:12 | disposition home or self-care (01) ==
LOC: EDUNIT# 09:01 → ER 09:03
DX: I87.2 Venous insufficiency (chronic) (peripheral) (principal); J44.9 Chronic obstructive pulmonary disease, unspecified; I10 Essential (primary) hypertension; E78.00 Pure hypercholesterolemia, unspecified; K21.9 Gastro-esophageal reflux disease without esophagitis; F41.9 Anxiety disorder, unspecified; I73.9 Peripheral vascular disease, unspecified; F14.10 Cocaine abuse, uncomplicated; Z87.448 Personal history of other diseases of urinary system; Z87.19 Personal history of other diseases of the digestive system; Z87.891 Personal history of nicotine dependence; Z80.8 Family history of malignant neoplasm of other organs or systems; Z82.49 Family history of ischemic heart disease and other diseases of the circulatory system; Z86.718 Personal history of other venous thrombosis and embolism; Z90.710 Acquired absence of both cervix and uterus; Z90.89 Acquired absence of other organs; Z98.890 Other specified postprocedural states; Z88.6 Allergy status to analgesic agent; Z88.4 Allergy status to anesthetic agent; Z88.7 Allergy status to serum and vaccine; Z88.5 Allergy status to narcotic agent; Z88.8 Allergy status to other drugs, medicaments and biological substances; Z91.041 Radiographic dye allergy status; Z91.040 Latex allergy status; Z79.51 Long term (current) use of inhaled steroids; Z79.01 Long term (current) use of anticoagulants
CPT/HCPCS: 87070; 87205; 99283

== ENCOUNTER 2018-02-27 00:02 | Emergency (ER) | payer MEDICAID ==
[~2018-02-27] VITALS: Ht 165.1 cm; Wt 83.5 kg
[2018-02-27] MEDS ORDERED: LIDOCAINE/EPI 2% 1:100,00 (XYLOCAINE) 20 ML VIAL INJ ONE (01:00)
--- NOTE | 2018-02-27 01:36 | ED Integumentary General ---
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 PT IS ON COUMADIN FOR HISTORY OF BLOOD CLOTS. PT STATES SHE HAS HAD A SORE/ULCER ON ANTERIOR ASPECT OF LEFT LOWER LEG--CLAIMS IT WAS FROM A DOG SCRATCH IN DECEMBER. PT WAS SEEN HERE 02/06/18 FOR THIS WOUND AND WAS GIVEN RX FOR MUPIROCIN PT STATES IT WAS LOOKING ALOT BETTER, AND NEVER FOLLOWED UP WITH ANYONE ADVISED PT STATES TONIGHT SHE PULLED THE BAND AID OFF AND THEN A SHORT WHILE LATER, SHE GOT IN BED AND STATES "IT STARTED SQUIRTING" AREA IS NOT BLEEDING NOW CLAIMS SHE DID NOT INJURE IT. PT HAS MULTIPLE ER VISITS HAS HISTORY OF NON-COMPLIANCE IN ALL ASPECTS OF CARE. PCP: DR. WOLF Allergies and Home Medications Allergies Coded Allergies: aspirin (Verified Allergy, Severe, ANAPHYLAXIS, 08/07/17) ibuprofen (Verified Allergy, Severe, ANAPHYLAXIS, 08/07/17) ketorolac (Verified Allergy, Severe, ANAPHYLAXIS, 08/07/17) tetanus and diphtheria toxoids (Unverified Allergy, Severe, ANAPHYLAXIS, ) aloe (Verified Allergy, Mild, RASH, 08/07/17) hydrocodone (Verified Allergy, Mild, 08/07/17) latex (Verified Allergy, Mild, RASH, 08/07/17) OCCASIONALLY IS IRRITATING SKIN scopolamine (Verified Allergy, Mild, 08/07/17) iodine (Verified Adverse Reaction, Unknown, 08/07/17) Patient states she got dizzy, diaphoretic and saw stars. Uncoded Allergies: ALOE VERA (Allergy, Unknown, 12/23/05) SILK SUTURES (Adverse Reaction, Unknown, BODY REJECTS SUTURES, 10/07/13) Home Medications Albuterol Sulfate 2.5 Mg/3 Ml Vial.neb, 2.5 MG NEB TID, (Reported) MIXES WITH IPRATROPIUM SOLUTION Albuterol Sulfate 8.5 Gm Hfa.aer.ad, 2 PUFF IH Q4H PRN for SHORTNESS OF BREATH, (Reported) Albuterol Sulfate 2.5 Mg/3 Ml Vial.neb, 2.5 MG NEB Q2H PRN for SHORTNESS OF BREATH, (Reported) Alprazolam 1 Mg Tablet, 1 MG PO Q8H PRN for ANXIETY, (Reported) Calcium Carbonate/Vitamin D3 1 Each Tablet, 1 TAB PO BID, (Reported) Diltiazem HCl 120 Mg Capsule.er, 120 MG PO DAILY, (Reported) Fenofibrate Nanocrystallized 145 Mg Tablet, 145 MG PO DAILY, (Reported) Furosemide 80 Mg Tablet, 80 MG PO DAILY, (Reported) Hydrocodone/Acetaminophen 1 Each Tablet, 1 TAB PO Q6H PRN for PAIN-MODERATE, ( Reported) Hyoscyamine Sulfate 0.125 Mg Tab.rapdis, 0.125 MG SL Q6H PRN for ABDOMINAL PAIN, (Reported) Ipratropium [place] 0.2 Mg/1 Ml Solution, 1 VIAL NEB TID, (Reported) MIXES WITH ALBUTEROL SOLUTION Loratadine 10 Mg Tablet, 10 MG PO DAILY, (Reported) Montelukast Sodium 10 Mg Tablet, 10 MG PO HS, (Reported) Pantoprazole Sodium 40 Mg Tablet.dr, 40 MG PO DAILY, (Reported) Potassium Chloride 10 Meq Tablet.er, 20 MEQ PO TID, (Reported) TAKES 2 (10 MEQ) TABLETS Warfarin Sodium 4 Mg Tablet, 4 MG PO 1800, (Reported) Patient Home Medication List Home Medication List Reviewed: Yes Review of Systems Review of Systems Constitutional: no symptoms reported Musculoskeletal: see HPI Skin: see HPI Psychiatric/Neurological: Anxiety Past Hqkxsdm-Kqvwjh-Nupibn Hx Patient Social History Alcohol Use: Denies Use Recreational Drug Use: Yes (HISTORY OF + IV COCAINE USE, 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) Drug of Choice: + IV COCAINE USE Smoking Status: Former Smoker (1 PPD, QUIT) Type Used: Cigarettes Former Smoker, Quit: Nov 17, 2000 2nd Hand Smoke Exposure: No Recent Foreign Travel: No Contact w/Someone Who Travel: No Recent Hopitalizations: Yes Immunizations Up To Date Tetanus Booster (TDap): Unknown PED Vaccines UTD: No Date of Pneumonia Vaccine: Sep 05, 2012 Date of Influenza Vaccine: Mar 11, 2012 Seasonal Allergies Seasonal Allergies: Yes Past Medical History Surgeries: Yes (VENA CAVA FILTER 2009; BREAST BIOPSY; HERNIA REPAIRS; LEFT ULNAR NERVE REPAIR; EGD/COLONOSCOPIES-MULTIPLE--LAST ONE 08/07/17 --DR. PHILIP; COLON POLYPECTOMIES; D&C; X 2; BILATERAL SHOULDER AND KNEE SCOPES-- LAST ONE WAS LEFT KNEE SCOPE 06/05/[address] HUGHES; LEFT LEG VEIN STRIPPING 2012; NASAL POLYPECTOMY; CYSTOSCOPY; REMOVAL OF SKIN LESION OF THIGH 08/07/17- DR. PHILIP. ) Abdominal, Adenoidectomy, Section, Gallbladder, Hysterectomy, Orthopedic, Tonsillectomy, Vascular Surgery Respiratory: Yes (O2 AT HS 2-3L/NC AND PRN--NOCTURNAL HYPOXIA; ) Asthma, Pneumonia, Chronic Bronchitis, Pulmonary Embolism, COPD Currently Using CPAP: No Currently Using BIPAP: No Cardiac: Yes (VENA CAVA FILTER 2009; BILATERAL LEG DVT'S WITH PE; VARICOSE VEINS WITH CHRONIC VENOUS STASIS ULCERS. ) Chronic Edema/Swelling, Deep Vein Thrombosis, High Cholesterol, Hypertension, Peripheral Vascular Neurological: Yes Neuropathy 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 Disorders: No 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 Disorders: Denies RCIS History: Hysterectomy, Menopausal Sexually Transmitted Disease: No HIV/AIDS: No 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: Yes Kidney Infection, Bladder Infection, Kidney Stones Gastrointestinal: Yes (MULTIPLE HERNIA REPAIRS; MULTIPLE EGD'S /COLONOSCOPIES/ POLYPECTOMIES) Abdominal Hernia, Gastroesophageal Reflux, Chronic Constipation, Chronic Diarrhea, Hepatitis, Polyps, Hiatal Hernia, Gall Bladder Disease, Irritable Bowel Musculoskeletal: Yes (BILATERAL SHOULDER AND KNEE SCOPES; SHOULDER BURSITIS; LEFT ULNAR NERVE SURGERY) Arthritis Endocrine: Yes ("PRE-DIABETIC" ) HEENT: Yes (NASAL POLYPS) Cataract Loss of Vision: Denies Hearing Impairment: Denies Cancer: No Did You Recieve Any Treatments: No Psychosocial: Yes Anxiety Integumentary: Yes (CHRONIC VENOUS STASIS DERMATITIS AND ULCERS. ) Blood Disorders: Yes (DVT'S/PE'S; PROBABLE PROTEIN C DEFICIENCY) Adverse Reaction/Blood Tranf: No (HAS HAD BLOOD WITH NO PROBLEMS) Family Medical History Alcoholism Alcoholism Arthritis Asthma Cancer Cancer of colon Cancer of mouth Cardiovascular disease Cataract Cataracts Chest pain Colon cancer Completed stroke Diabetes mellitus Family history: Allergy Family history: Arthritis Family history: Asthma Family history: Cardiovascular disease Family history: Coronary thrombosis Family history: Diabetes mellitus Family history: Gastrointestinal disease Family history: Hypertension Family history: Thyroid disorder Headache Hearing loss Heart disease History of - anemia History of - respiratory disease Hypercholesterolemia Hypercholesterolemia Infertile Malignant neoplasm of lung Myocardial infarction Myocardial infarction Psychotic disorder Respiratory disorder Stroke No Family History of: AIDS Abdominal aortic aneurysm Abdominal aortic aneurysm Elwell's disease Elwell's disease Alzheimer's disease Aphasia Aphasia Congenital disease Congenital heart disease Congenital heart disease Congestive heart failure Coronary thrombosis Cystic fibrosis Cystic fibrosis Deafness or hearing loss Dementia Dementia Drug abuse Dysphagia Dysphasia Family history: Alzheimer's disease Family history: Breast disease Family history: Glaucoma Family history: Osteoporosis Fibrocystic disease of breast Gastroenteritis Glaucoma Headache disorder Hereditary disease History of - disorder History of drug abuse Human immunodeficiency virus (HIV) seropositivity Infertility Kidney disease Kidney disease Neoplasm Not obtainable due to adoption Osteoporosis Parkinson's disease Parkinson's disease Prostate cancer Psychosocial problem Seizure disorder Seizure disorder Severe allergy Thyroid disease Tuberculosis Tuberculosis Visual disorder Visual impairment Cancer, COPD, Vascular Disease Physical Exam Vital Signs Vital Signs - First Documented 02/27/18 00:24 Temp 98.0 Pulse 86 Resp 16 B/P (MAP) 107/88 (94) Pulse Ox 96 O2 Delivery Room Air Capillary Refill : General Appearance: WD/WN, other (VERY ANXIOUS) Cardiovascular: normal peripheral pulses Skin: normal color, warm/dry, other (EXTENSIVE CHRONIC VENOUS STASIS CHANGES TO BILATERAL LOWER LEGS; MULTIPLE VARICOSE VEINS. ANTERIOR ASPECT OF LEFT LOWER LEG WITH 2 X 2 CM STAGE 2 ULCERATION WITH SCAB FORMATION, AND APPEARS TO BE OVER A SUPERFICIAL VARICOSE VEIN. ALSO APPEARS THAT PART OF SCAB HAS COME OFF. SCANT AMOUNT OF DRIED BLOOD TO THE AREA, BUT UNABLE TO IDENTIFY EXACT SITE OF RECENT BLEEDING. NO EVIDENCE OF RECENT ANTIBIOTIC OINTMENT TO WOUND. ) Procedures/Interventions Progress ULCER AREA TO LEFT LOWER LEG CLEANSED WITH BETASEPT, INJECTED WITH 2% LIDOCAINE WITH EPI. VARICOSE VEIN AREA AND AREA WHERE SCAB APPEARS TO HAVE BEEN PULLED OFF WERE CAUTERIZED WITH FINE TIP ELECTROCAUTERY. NO BLEEDING AT ANY TIME AREA DRESSED WITH STERILE DRESSING. PT TOLERATED FAIR DUE TO SIGNIFICANT ANXIETY. Progress/Results/Core Measures Results/Orders Lab Results Laboratory Tests Test 02/27/18 01:44 Range/Units White Blood Count 10.4 4.3-11.0 10^3/uL Red Blood Count 4.24 L 4.35-5.85 10^6/uL Hemoglobin 12.5 11.5-16.0 G/DL Hematocrit 38 35-52 % Mean Corpuscular Volume 91 80-99 FL Mean Corpuscular Hemoglobin 29 25-34 PG Mean Corpuscular Hemoglobin Concent 33 32-36 G/DL Red Cell Distribution Width 15.1 H 10.0-14.5 % Platelet Count 409 H 130-400 10^3/uL Mean Platelet Volume 8.7 7.4-10.4 FL Neutrophils (%) (Auto) 48 42-75 % Lymphocytes (%) (Auto) 42 12-44 % Monocytes (%) (Auto) 9 0-12 % Eosinophils (%) (Auto) 1 0-10 % Basophils (%) (Auto) 0 0-10 % Neutrophils # (Auto) 5.0 1.8-7.8 X 10^3 Lymphocytes # (Auto) 4.4 H 1.0-4.0 X 10^3 Monocytes # (Auto) 1.0 0.0-1.0 X 10^3 Eosinophils # (Auto) 0.1 0.0-0.3 10^3/uL Basophils # (Auto) 0.0 0.0-0.1 10^3/uL Prothrombin Time 22.9 H 12.2-14.7 SEC INR Comment 2.0 H 0.8-1.4 Activated Partial Thromboplast Time 29 24-35 SEC My Orders Orders - STEPHANIE ECKERT DO Cbc With Automated Diff (02/27/18 00:46) Protime With Inr (02/27/18 00:46) Partial Thromboplastin Time (02/27/18 00:46) Lidocaine/Epi 2% 1:100,000 (Xylocaine/Ep (02/27/18 01:00) Wound Dressing-Ed (02/27/18 01:30) Medications Given in ED Current Medications Medications Dose Ordered Sig/Nahomi Route Start Time Stop Time Status Last Admin Dose Admin Lidocaine/ Epinephrine 20 ml ONCE ONCE INJ 02/27/18 01:00 02/27/18 01:01 DC 02/27/18 01:15 20 ML Vital Signs/I&O 02/27/18 02/27/18 00:24 02:42 Temp 98.0 98.0 Pulse 86 89 Resp 16 16 B/P (MAP) 107/88 (94) 122/82 (95) Pulse Ox 96 96 O2 Delivery Room Air Room Air Progress Progress Note : Progress Note NO BLEEDING NOTED AT ANY TIME. Departure Impression Primary Impression: Bleeding from varicose veins of left lower extremity Additional Impression: bleeding from chronic ulcer of left lower leg Disposition: HOME, SELF-CARE Condition: Improved Departure-Patient Inst. Referrals: LEAH WOLF MD (PCP/Family) Primary Care Physician Patient Instructions: Varicose Veins (DC), Wound Care (DC) Add. Discharge Instructions: LEAVE DRESSING IN PLACE FOR 24 HOURS, THEN CLEAN WOUND TWICE A DAY WITH ANTIBACTERIAL SOAP AND WATER, DRY THOROUGHLY AND APPLY MUPIROCIN OINTMENT AND FRESH DRESSING IF YOU HAVE BLEEDING FROM THE AREA, APPLY CONSTANT PRESSURE, ELEVATE LEG, APPLY ICE TO AREA AT 15 MINUTE INTERVALS FOLLOW UP WITH DR. WOLF IN 2 DAYS FOR FURTHER CARE All discharge instructions reviewed with patient and/or family. Voiced understanding. STEPHANIE ECKRET DO Feb 27, 2018 01:36
[2018-02-27 01:50] LABS: BASOPHILS % (AUTO) 0 % (0-10); EOSINOPHILS # (AUTO) 0.1 10^3/uL (0.0-0.3); EOSINOPHILS % (AUTO) 1 % (0-10); HEMATOCRIT 38 % (35-52); HEMOGLOBIN 12.5 G/DL (11.5-16.0); LYMPHOCYTES # (AUTO) 4.4 X 10^3 (1.0-4.0); LYMPHOCYTES % (AUTO) 42 % (12-44); MEAN CORPUSCULAR HEMOGLOBIN 29 PG (25-34); MEAN CORPUSCULAR HGB CONC 33 G/DL (32-36); MEAN CORPUSCULAR VOLUME 91 FL (80-99); MEAN PLATELET VOLUME 8.7 FL (7.4-10.4); MONOCYTES % (AUTO) 9 % (0-12); NEUTROPHILS % (AUTO) 48 % (42-75); PLATELET COUNT 409 10^3/uL (130-400); RED BLOOD COUNT 4.24 10^6/uL (4.35-5.85); RED CELL DISTRIBUTION WIDTH 15.1 % (10.0-14.5); WHITE BLOOD COUNT 10.4 10^3/uL (4.3-11.0)
[2018-02-27 02:00] LABS: PROTHROMBIN TIME PATIENT 22.9 SEC (12.2-14.7)
[2018-02-27 02:42] VITALS: BP 122/82
== END 2018-02-27 02:43 | disposition home or self-care (01) ==
LOC: EDUNIT# 00:02 → ER 00:05
DX: I83.028 Varicose veins of left lower extremity with ulcer other part of lower leg (principal); L97.829 Non-pressure chronic ulcer of other part of left lower leg with unspecified severity; J44.9 Chronic obstructive pulmonary disease, unspecified; E78.00 Pure hypercholesterolemia, unspecified; I73.9 Peripheral vascular disease, unspecified; I10 Essential (primary) hypertension; K21.9 Gastro-esophageal reflux disease without esophagitis; F41.9 Anxiety disorder, unspecified; Z86.711 Personal history of pulmonary embolism; Z80.0 Family history of malignant neoplasm of digestive organs; Z82.49 Family history of ischemic heart disease and other diseases of the circulatory system; Z86.718 Personal history of other venous thrombosis and embolism; Z87.440 Personal history of urinary (tract) infections; Z87.19 Personal history of other diseases of the digestive system; Z87.442 Personal history of urinary calculi; Z88.6 Allergy status to analgesic agent; Z88.7 Allergy status to serum and vaccine; Z88.4 Allergy status to anesthetic agent; Z91.040 Latex allergy status; Z91.041 Radiographic dye allergy status; Z88.8 Allergy status to other drugs, medicaments and biological substances; Z79.51 Long term (current) use of inhaled steroids; Z87.01 Personal history of pneumonia (recurrent); Z79.01 Long term (current) use of anticoagulants; Z87.891 Personal history of nicotine dependence; Z98.890 Other specified postprocedural states; Z86.010 Personal history of colon polyps; Z90.710 Acquired absence of both cervix and uterus
CPT/HCPCS: 36415; 85025; 85610; 85730

== ENCOUNTER → 2018-03-05 | Outpatient (CLI) | payer MEDICAID | LOC: WOUNDCARE 09:18 | PROVIDERS: ATTEND Surgery | DX: I87.332 Chronic venous hypertension (idiopathic) with ulcer and inflammation of left lower extremity (principal); L97.222 Non-pressure chronic ulcer of left calf with fat layer exposed; J44.9 Chronic obstructive pulmonary disease, unspecified | CPT/HCPCS: 29581 ==

== ENCOUNTER → 2018-03-10 | Outpatient (CLI) | payer MEDICAID | LOC: WOUNDCARE 09:35 | PROVIDERS: ATTEND Surgery | DX: I87.332 Chronic venous hypertension (idiopathic) with ulcer and inflammation of left lower extremity (principal); L97.222 Non-pressure chronic ulcer of left calf with fat layer exposed; I87.321 Chronic venous hypertension (idiopathic) with inflammation of right lower extremity; J44.9 Chronic obstructive pulmonary disease, unspecified | CPT/HCPCS: 11042; 87070; 87075; 87205 ==

== ENCOUNTER → 2018-03-17 | Outpatient (CLI) | payer MEDICAID | LOC: WOUNDCARE 09:09 | PROVIDERS: ATTEND Surgery | DX: I87.332 Chronic venous hypertension (idiopathic) with ulcer and inflammation of left lower extremity (principal); L97.222 Non-pressure chronic ulcer of left calf with fat layer exposed; J44.9 Chronic obstructive pulmonary disease, unspecified | CPT/HCPCS: 11042 ==

== ENCOUNTER → 2018-03-27 | Outpatient (CLI) | payer MEDICAID | LOC: WOUNDCARE 08:59 | PROVIDERS: ATTEND Orthopaedic Surgery Hand Surgery | DX: L97.822 Non-pressure chronic ulcer of other part of left lower leg with fat layer exposed (principal); I87.332 Chronic venous hypertension (idiopathic) with ulcer and inflammation of left lower extremity; I87.321 Chronic venous hypertension (idiopathic) with inflammation of right lower extremity; J44.9 Chronic obstructive pulmonary disease, unspecified | CPT/HCPCS: 11042 ==

== ENCOUNTER → 2018-04-01 | Outpatient (CLI) | payer MEDICAID | LOC: WOUNDCARE 09:34 | PROVIDERS: ATTEND Nurse Practitioner | DX: I87.332 Chronic venous hypertension (idiopathic) with ulcer and inflammation of left lower extremity (principal); L97.222 Non-pressure chronic ulcer of left calf with fat layer exposed; J44.9 Chronic obstructive pulmonary disease, unspecified | CPT/HCPCS: 29581 ==

== ENCOUNTER → 2018-04-07 | Outpatient (CLI) | payer MEDICAID | LOC: WOUNDCARE 12:25 | PROVIDERS: ATTEND Nurse Practitioner | DX: I87.332 Chronic venous hypertension (idiopathic) with ulcer and inflammation of left lower extremity (principal); L97.222 Non-pressure chronic ulcer of left calf with fat layer exposed | CPT/HCPCS: 29581 ==

== ENCOUNTER → 2018-04-10 | Outpatient (CLI) | payer MEDICAID | LOC: WOUNDCARE 09:03 | PROVIDERS: ATTEND Orthopaedic Surgery Hand Surgery | DX: L97.822 Non-pressure chronic ulcer of other part of left lower leg with fat layer exposed (principal); I87.332 Chronic venous hypertension (idiopathic) with ulcer and inflammation of left lower extremity; I87.321 Chronic venous hypertension (idiopathic) with inflammation of right lower extremity; J44.9 Chronic obstructive pulmonary disease, unspecified | CPT/HCPCS: 11042 ==

== ENCOUNTER 2018-04-14 05:33 | Inpatient (IN) | payer MEDICAID ==
[~2018-04-14] VITALS: Ht 165.1 cm; Wt 87.1 kg
--- OUTSIDE RECORDS SUMMARY | 2018-04-14 05:40 | XMS REPORT | Encounter Summary ---
Author Author [facility] Address Unknown Phone Unavailable Care Team Providers Care Wildlife Technician Name Role Phone PCP Unavailable Reason for Visit * Reason Comments General Question Encounter Details Date Type Department Care Team Description 03/17/2018 Telephone [facility] Joshua Ku MD General Question Physicians - Vascular [address] [place] [address] Vascular Surgery [phone] [facility] [address] [place] [address] Social History Tobacco Use Types Packs/Day Years Used Date Never Assessed Sex Assigned at Date Recorded Not on file as of this encounter Miscellaneous Notes * Telephone Encounter - Andie Carrillo - 03/17/2018 10:37 AM 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 Ku for this pt. The referral will be faxed today with office notes from Dr. Concepcion from [facility]. Pt may need sonogram. in this encounter Plan of Treatment Not on fileas of this encounter Visit Diagnoses Not on filein this encounter
--- OUTSIDE RECORDS SUMMARY | 2018-04-14 05:40 | XMS REPORT | Encounter Summary ---
Author Author [facility] Organization [facility] Address Unknown Phone Unavailable Care Team Providers Care Bottoming Room Inspector Name Role Phone PCP Unavailable Encounter Details Date Type Department Care Team Description 03/20/2018 Orders Only [facility] Joshua Ku MD Physicians - Vascular [address] [place] [address] Vascular Surgery [phone] [facility] [address] [place] [address] Social History Tobacco Use Types Packs/Day Years Used Date Never Assessed Sex Assigned at Date Recorded Not on file as of this encounter Plan of Treatment Not on fileas of this encounter Procedures Procedure Name Priority Date/Time Associated Diagnosis Comments US DOPPLER VENOUS LEFT Routine 05/02/2017 12:00 AM POCKET CLOSER in this encounter Results * US DOPPLER VENOUS LEFT (05/02/2017) Narrative Performed At Performing Organization Address City/State/Zipcode Phone Number IN CLINIC in this encounter Visit Diagnoses Not on filein this encounter
--- OUTSIDE RECORDS SUMMARY | 2018-04-14 05:40 | XMS REPORT | Clinical Summary ---
Author Author [facility] Organization [facility] Address Unknown Phone Unavailable Care Team Providers Care Day Treatment Clinician/Art Therapist Name Role Phone PCP Unavailable Source Comments Some departments are not documenting in the electronic medical record. If you do not see the information that you expected, contact Release of Information in the Health Information Management department at [phone] for further assistance in locating additional records.[facility] Allergies Not on File Current Medications Not on file Active Problems Not on file Encounters Date Type Specialty Care Team Description 03/20/2018 Orders Only Vascular Surgery Joshua Ku MD 03/17/2018 Telephone Vascular Surgery Joshua Ku MD General Question from Last 3 Months Social History Tobacco Use Types Packs/Day Years Used Date Never Assessed Sex Assigned at Date Recorded Not on file Last Filed Vital Signs Not on file Plan of Treatment Health Maintenance Due Date Last Done Comments HEPATITIS C SCREENING 1958 PHYSICAL (COMPREHENSIVE) 1965 EXAM HIV SCREENING 1973 DTAP/TDAP VACCINES (1 - 1976 Tdap) CERVICAL CANCER SCREENING 1988 BREAST CANCER SCREENING 1998 COLORECTAL CANCER 2008 SCREENING SHINGLES RECOMBINANT 2008 VACCINE (1 of 2) INFLUENZA VACCINE 12/11/2017 Results Not on filefrom Last 3 Months
[2018-04-14] MEDS ORDERED: RT-ALBUTEROL SULF 2.5 MG/3 ML PRE-MIX VIAL INH STA (05:45)
[2018-04-14] MEDS ORDERED: NS IV 1000 ML 1,000 ML IV SCH (05:45)
[2018-04-14] MEDS ORDERED: RT-ALBUTEROL/IPRATROPIUM 3 ML (DUONEB) VIAL INH ONE (05:45)
[2018-04-14] MEDS ORDERED: NS (IVPB) 250 ML IV ONE (05:52)
--- NOTE | 2018-04-14 05:52 | ED Respiratory ---
General Stated Complaint: SOB,COPD OR ASTHMA Source: patient Exam Limitations: no limitations (JULIO C JAUREGUI) History of Present Illness Date Seen by Provider: Apr 14, 2018 Time Seen by Provider: 05:39 Initial Comments The patient presents to the ER by private conveyance with chief complaint she's having progressively worsening difficulty with her breathing. She's having an occasional cough. She has a history of COPD and asthma. She's used her albuterol nebulizer 12 times in the last 24 hours and is getting diminishing returns. She says she was just on long steroid taper finishing about a week ago. She is followed by Dr. Nguyen. 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 She's had no fevers chills nausea vomiting. She is having some chest pain that she associates with having to work so hard to breathe. Worse with deep inspiration or palpation. She does not have any coronary artery disease personal or primary family history. She says she's been told she has borderline diabetes but she's not a medicines for it and her last A1c was good. 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 (JULIO C JAUREGUI) Allergies and Home Medications Allergies Coded Allergies: aspirin (Verified Allergy, Severe, ANAPHYLAXIS, 08/07/17) ibuprofen (Verified Allergy, Severe, ANAPHYLAXIS, 08/07/17) ketorolac (Verified Allergy, Severe, ANAPHYLAXIS, 08/07/17) tetanus and diphtheria toxoids (Unverified Allergy, Severe, ANAPHYLAXIS, ) aloe (Verified Allergy, Mild, RASH, 08/07/17) hydrocodone (Verified Allergy, Mild, 08/07/17) latex (Verified Allergy, Mild, RASH, 08/07/17) OCCASIONALLY IS IRRITATING SKIN scopolamine (Verified Allergy, Mild, 08/07/17) iodine (Verified Adverse Reaction, Unknown, 08/07/17) Patient states she got dizzy, diaphoretic and saw stars. Uncoded Allergies: ALOE VERA (Allergy, Unknown, 12/23/05) SILK SUTURES (Adverse Reaction, Unknown, BODY REJECTS SUTURES, 10/07/13) Home Medications Albuterol Sulfate 2.5 Mg/3 Ml Vial.neb, 2.5 MG NEB TID, (Reported) MIXES WITH IPRATROPIUM SOLUTION Albuterol Sulfate 8.5 Gm Hfa.aer.ad, 2 PUFF IH Q4H PRN for SHORTNESS OF BREATH, (Reported) Albuterol Sulfate 2.5 Mg/3 Ml Vial.neb, 2.5 MG NEB Q2H PRN for SHORTNESS OF BREATH, (Reported) Alprazolam 1 Mg Tablet, 1 MG PO Q8H PRN for ANXIETY, (Reported) Calcium Carbonate/Vitamin D3 1 Each Tablet, 1 TAB PO BID, (Reported) Diltiazem HCl 120 Mg Capsule.er, 120 MG PO DAILY, (Reported) Fenofibrate Nanocrystallized 145 Mg Tablet, 145 MG PO DAILY, (Reported) Furosemide 80 Mg Tablet, 80 MG PO DAILY, (Reported) Hydrocodone/Acetaminophen 1 Each Tablet, 1 TAB PO Q6H PRN for PAIN-MODERATE, ( Reported) Hyoscyamine Sulfate 0.125 Mg Tab.rapdis, 0.125 MG SL Q6H PRN for ABDOMINAL PAIN, (Reported) Ipratropium [place] 0.2 Mg/1 Ml Solution, 1 VIAL NEB TID, (Reported) MIXES WITH ALBUTEROL SOLUTION Loratadine 10 Mg Tablet, 10 MG PO DAILY, (Reported) Montelukast Sodium 10 Mg Tablet, 10 MG PO HS, (Reported) Pantoprazole Sodium 40 Mg Tablet.dr, 40 MG PO DAILY, (Reported) Potassium Chloride 10 Meq Tablet.er, 20 MEQ PO TID, (Reported) TAKES 2 (10 MEQ) TABLETS Warfarin Sodium 4 Mg Tablet, 4 MG PO 1800, (Reported) Patient Home Medication List Home Medication List Reviewed: Yes (JULIO C JAUREGUI) Review of Systems Review of Systems Constitutional: No chills, No diaphoresis, No fever; malaise EENTM: No ear discharge, No hearing loss, No ear pain Respiratory: cough, orthopnea; No phlegm; short of breath, wheezing Cardiovascular: see HPI, chest pain; No Hx of Intervention, No vascular heart diseas Gastrointestinal: No abdominal pain, No constipation, No diarrhea, No nausea 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: No discharge, No dysuria Musculoskeletal: No back pain, No joint pain (JULIO C JAUREGUI) Past Fylfjig-Qrollm-Upmuti Hx Patient Social History Alcohol Use: Denies Use Recreational Drug Use: No (history) Drug of Choice: + IV COCAINE USE Smoking Status: Former Smoker Type Used: Cigarettes Former Smoker, Quit: Nov 17, 2000 2nd Hand Smoke Exposure: No Recent Foreign Travel: No Contact w/Someone Who Travel: No Recent Hopitalizations: Yes (JULIO C JAUREGUI) Immunizations Up To Date Tetanus Booster (TDap): Unknown PED Vaccines UTD: No Date of Pneumonia Vaccine: Sep 05, 2012 Date of Influenza Vaccine: Mar 11, 2012 (JULIO C JAUREGUI) Seasonal Allergies Seasonal Allergies: Yes (JULIO C JAUREGUI) Past Medical History Surgeries: Yes Abdominal, Adenoidectomy, Section, Gallbladder, Hysterectomy, Orthopedic, Tonsillectomy, Vascular Surgery Respiratory: Yes (O2 AT HS 2-3L/NC AND PRN--NOCTURNAL HYPOXIA; ) Asthma, Pneumonia, Chronic Bronchitis, Pulmonary Embolism, COPD Currently Using CPAP: No Currently Using BIPAP: No Cardiac: Yes Chronic Edema/Swelling, Deep Vein Thrombosis, High Cholesterol, Hypertension, Peripheral Vascular Neurological: Yes Neuropathy 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 Disorders: No 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 Disorders: 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, 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 Sexually Transmitted Disease: No HIV/AIDS: No 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: Yes Kidney Infection, Bladder Infection, Kidney Stones Gastrointestinal: Yes (MULTIPLE HERNIA REPAIRS; MULTIPLE EGD'S /COLONOSCOPIES/ POLYPECTOMIES) Abdominal Hernia, Gastroesophageal Reflux, Chronic Constipation, Chronic Diarrhea, Hepatitis, Polyps, Hiatal Hernia, Gall Bladder Disease, Irritable Bowel Musculoskeletal: Yes Arthritis Endocrine: Yes ("PRE-DIABETIC" ) HEENT: Yes (NASAL POLYPS) Cataract Loss of Vision: Denies Hearing Impairment: Denies Cancer: No Did You Recieve Any Treatments: No Psychosocial: Yes Anxiety Integumentary: Yes (CHRONIC VENOUS STASIS DERMATITIS AND ULCERS. ) Blood Disorders: Yes (DVT'S/PE'S; PROBABLE PROTEIN C DEFICIENCY) Adverse Reaction/Blood Tranf: No (HAS HAD BLOOD WITH NO PROBLEMS) (JULIO C JAUREGUI) Family Medical History Alcoholism Alcoholism Arthritis Asthma Cancer Cancer of colon Cancer of mouth Cardiovascular disease Cataract Cataracts Chest pain Colon cancer Completed stroke Diabetes mellitus Family history: Allergy Family history: Arthritis Family history: Asthma Family history: Cardiovascular disease Family history: Coronary thrombosis Family history: Diabetes mellitus Family history: Gastrointestinal disease Family history: Hypertension Family history: Thyroid disorder Headache Hearing loss Heart disease History of - anemia History of - respiratory disease Hypercholesterolemia Hypercholesterolemia Infertile Malignant neoplasm of lung Myocardial infarction Myocardial infarction Psychotic disorder Respiratory disorder Stroke No Family History of: AIDS Abdominal aortic aneurysm Abdominal aortic aneurysm Vesuvius's disease Vesuvius's disease Alzheimer's disease Aphasia Aphasia Congenital disease Congenital heart disease Congenital heart disease Congestive heart failure Coronary thrombosis Cystic fibrosis Cystic fibrosis Deafness or hearing loss Dementia Dementia Drug abuse Dysphagia Dysphasia Family history: Alzheimer's disease Family history: Breast disease Family history: Glaucoma Family history: Osteoporosis Fibrocystic disease of breast Gastroenteritis Glaucoma Headache disorder Hereditary disease History of - disorder History of drug abuse Human immunodeficiency virus (HIV) seropositivity Infertility Kidney disease Kidney disease Neoplasm Not obtainable due to adoption Osteoporosis Parkinson's disease Parkinson's disease Prostate cancer Psychosocial problem Seizure disorder Seizure disorder Severe allergy Thyroid disease Tuberculosis Tuberculosis Visual disorder Visual impairment Cancer, COPD, Vascular Disease (JULIO C JAUREGUI) Physical Exam Vital Signs - First Documented 04/14/18 05:40 Temp 97.9 Pulse 113 Resp 22 B/P (MAP) 124/95 (105) Pulse Ox 92 O2 Delivery Nasal Cannula O2 Flow Rate 2.00 (FELIBERTO GONZALES MD) Capillary Refill : (JULIO C JAUREGUI) Height: 5'5.00" Weight: 184lbs. 6.0oz. 83.934548iu; 29.9 BMI Method:Stated General Appearance: WD/WN, moderate distress Eyes: Bilateral Eye Normal Inspection, Bilateral Eye PERRL, Bilateral Eye EOMI HEENT: PERRL/EOMI, normal ENT inspection, TMs normal, pharynx normal ( oropharynx is dry) Neck: non-tender, full range of motion, supple, normal inspection Respiratory: respiratory distress (mild), accessory muscle use (mild), wheezing , expiration Cardiovascular: normal peripheral pulses, regular rate, rhythm, no edema Gastrointestinal: normal bowel sounds, non tender, soft Neurologic/Psychiatric: alert, oriented x 3 Skin: other (left leg wrapped for history of wound care secondary to dog scratch) (JULIO C JAUREGUI) Focused Exam Lactate Level 04/14/18 05:55: Lactic Acid Level 1.66 (FELIBERTO GONZALES MD) Lactic Acid Level Laboratory Tests Test 04/14/18 05:55 Lactic Acid Level 1.66 MMOL/L (0.50-2.00) (FELIBERTO GONZALES MD) Progress/Results/Core Measures Suspected Sepsis SIRS Temperature: Pulse: Respiratory Rate: Blood Pressure / Mean: (JULIO C JAUREGUI) Results/Orders Lab Results Laboratory Tests Test 04/14/18 05:55 Range/Units Prothrombin Time 20.5 H 12.2-14.7 SEC INR Comment 1.8 H 0.8-1.4 Activated Partial Thromboplast Time 32 24-35 SEC Lactic Acid Level 1.66 0.50-2.00 MMOL/L Troponin I < 0.30 <0.30 NG/ML (FELIBERTO GONZALES MD) My Orders Orders - FELIBERTO GONZALES MD Comprehensive Metabolic Panel (04/14/18 06:55) Cbc With Automated Diff (04/14/18 06:55) Methylprednisolone Sod Succ (Solu-Medrol (04/14/18 07:00) Cefepime Injection (Maxipime Injection) (04/14/18 07:00) (FELIBERTO GONZALES MD) Medications Given in ED Current Medications Medications Dose Ordered Sig/Nahomi Route Start Time Stop Time Status Last Admin Dose Admin Albuterol/ Ipratropium 3 ml ONCE ONCE INH 04/14/18 05:45 04/14/18 05:49 DC 04/14/18 06:11 3 ML Cefepime HCl 1000 mg/Sodium Chloride 50 ml @ 100 mls/hr ONCE ONCE IV 04/14/18 06:00 04/14/18 06:29 DC 04/14/18 06:22 100 MLS/HR Sodium Chloride 250 ml @ 0 mls/hr Q0M ONCE IV 04/14/18 05:52 04/14/18 05:57 DC 04/14/18 06:15 999 MLS/HR (FELIBERTO GONZALES MD) Vital Signs/I&O 04/14/18 04/14/18 04/14/18 05:40 05:40 06:12 Temp 97.9 Pulse 113 Resp 22 B/P (MAP) 124/95 (105) Pulse Ox 92 94 O2 Delivery Nasal Cannula Nasal Cannula O2 Flow Rate 2.00 2.00 (FELIBERTO GONZALES MD) Vital Signs/I&O Capillary Refill : (JULIO C JAUREGUI) Progress Note : Time: 05:55 Progress Note Seems like she's having a COPD exacerbation but we cannot rule out cardiac involvement or pneumonia just yet. Because of her tachycardia we'll go ahead and cover her with 20 cc/kg based on an ideal body weight of 57 kg. Her BMI is 30.6. We will cover her with cefepime. We will give her an hour-long breathing treatment and hold off on steroids until we've seen that she does not seem to have a infection. A week after finishing her steroids her white cell count should be back to normal. We'll get a 2 view chest x-ray blood work cultures. (JULIO C JAUREGUI) Progress Note : Time: 07:05 Progress Note Assumed care from Dr. Jauregui at change of shifts. The patient has had a COPD exacerbation. Patient received an hour constant nebulization upon arrival. IV antibiotics and steroids were initiated. was kind enough to admit the patient. Patient was transferred to the floor in improved condition. (FELIBERTO GONZALES MD) ECG Initial ECG Impression Date: Apr 14, 2018 Initial ECG Impression Time: 05:45 Initial ECG Rate: 107 Initial ECG Rhythm: S.Tach Initial ECG Intervals: Normal Initial ECG Impression: Normal, Nonspecific Changes Comment Sinus tachycardia without ST elevation or depression. (JULIO C JAUREGUI) Transfer of Care Transfer of Care Time: 06:10 Care transferred to: Dr. Gonzales (JULIO C JAUREGUI) Departure Communication (Admissions) Time/Spoke to Admitting Phy: 07:07 Dr. Wolf. (FELIBERTO GONZALES MD) Impression Primary Impression: COPD exacerbation Disposition: 09 ADMITTED INPATIENT Condition: Improved Admissions Decision to Admit Reason: Admit from ER (General) Decision to Admit/Date: Apr 14, 2018 Time/Decision to Admit Time: 07:08 (FELIBERTO GONZALES MD) Departure-Patient Inst. Referrals: LEAH WOLF MD (PCP/Family) Primary Care Physician JULIO C JAUREGUI Apr 14, 2018 05:52 FELIBERTO GONZALES MD Apr 14, 2018 07:04
[2018-04-14] MEDS ORDERED: CEFEPIME INJECTION 1,000 MG in NS (IVPB) 50 ML IV ONE (06:00)
[2018-04-14 06:19] LABS: INR 1.8 (0.8-1.4); PROTHROMBIN TIME PATIENT 20.5 SEC (12.2-14.7)
[2018-04-14] MEDS ORDERED: CEFEPIME INJECTION 1,000 MG in NS (IVPB) 50 ML IV SCH (07:00)
[2018-04-14] MEDS ORDERED: methylPREDNISolone 125 MG (Solu-MEDROL) VIAL IVP ONE (07:00)
[2018-04-14 07:03] LABS: BASOPHILS % (AUTO) 0 % (0-10); EOSINOPHILS # (AUTO) 0.4 10^3/uL (0.0-0.3); EOSINOPHILS % (AUTO) 4 % (0-10); HEMATOCRIT 42 % (35-52); HEMOGLOBIN 13.2 G/DL (11.5-16.0); LYMPHOCYTES # (AUTO) 1.8 X 10^3 (1.0-4.0); LYMPHOCYTES % (AUTO) 22 % (12-44); MEAN CORPUSCULAR HEMOGLOBIN 29 PG (25-34); MEAN CORPUSCULAR HGB CONC 32 G/DL (32-36); MEAN CORPUSCULAR VOLUME 91 FL (80-99); MEAN PLATELET VOLUME 9.1 FL (7.4-10.4); MONOCYTES % (AUTO) 12 % (0-12); NEUTROPHILS # (AUTO) 5.1 X 10^3 (1.8-7.8); NEUTROPHILS % (AUTO) 61 % (42-75); PLATELET COUNT 311 10^3/uL (130-400); RED BLOOD COUNT 4.59 10^6/uL (4.35-5.85); RED CELL DISTRIBUTION WIDTH 14.3 % (10.0-14.5); WHITE BLOOD COUNT 8.3 10^3/uL (4.3-11.0)
[2018-04-14 07:14] LABS: ALBUMIN 4.1 GM/DL (3.2-4.5); BILIRUBIN,TOTAL 0.5 MG/DL (0.1-1.0); CALCIUM 9.7 MG/DL (8.5-10.1); CREATININE SERUM 0.95 MG/DL (0.60-1.30); POTASSIUM 3.5 MMOL/L (3.6-5.0); TOTAL PROTEIN 7.3 GM/DL (6.4-8.2)
--- OUTSIDE RECORDS SUMMARY | 2018-04-14 07:46 | XMS REPORT | Encounter Summary ---
Author Author [facility] Organization [facility] Address Unknown Phone Unavailable Care Team Providers Care Jockey Agent Name Role Phone PCP Unavailable Encounter Details Date Type Department Care Team Description 03/20/2018 Orders Only [facility] Joshua Ku MD Physicians - Vascular [address] [place] [address] Vascular Surgery [phone] [facility] [address] [place] [address] Social History Tobacco Use Types Packs/Day Years Used Date Never Assessed Sex Assigned at Date Recorded Not on file as of this encounter Plan of Treatment Not on fileas of this encounter Procedures Procedure Name Priority Date/Time Associated Diagnosis Comments US DOPPLER VENOUS LEFT Routine 05/02/2017 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
--- OUTSIDE RECORDS SUMMARY | 2018-04-14 07:46 | XMS REPORT | Clinical Summary ---
Author Author [facility] Organization [facility] Address Unknown Phone Unavailable Care Team Providers Care Salad Maker Name Role Phone PCP Unavailable Source Comments Some departments are not documenting in the electronic medical record. If you do not see the information that you expected, contact Release of Information in the Health Information Management department at [phone] for further assistance in locating additional records.[facility] Allergies Not on File Current Medications Not [...]
--- OUTSIDE RECORDS SUMMARY | 2018-04-14 07:46 | XMS REPORT | Encounter Summary ---
Author Author [facility] Organization [facility] Address Unknown Phone Unavailable Care Team Providers Care Award Machine Operator Name Role Phone PCP Unavailable Reason for Visit * Reason Comments General Question Encounter Details Date Type Department Care Team Description 03/17/2018 Telephone [facility] Joshua Ku MD General Question Physicians - Vascular [address] [facility] [place] [address] Vascular Surgery [phone] [facility] [address] [place] [address] Social History Tobacco Use Types Packs/Day Years Used Date Never Assessed Sex Assigned at Date Recorded Not on file as of this encounter Miscellaneous Notes * Telephone Encounter - Andie Carrillo - 03/17/2018 10:37 AM DIAMOND CUTTER Nurse Ginna called our office to set up appointment with Dr. Ku for this pt. The referral will be faxed today with office notes from Dr. Concepcion from [facility]. Pt may need sonogram. in this encounter Plan of Treatment Not on fileas of this encounter Visit Diagnoses Not on filein this encounter
--- NOTE | 2018-04-14 07:58 | Diagnostic Imaging Report ---
INDICATION: Shortness of air, COPD. COMPARISON: 11/16/2017. FINDINGS: The lungs are clear. No pleural effusion or pneumothorax. Heart is normal in size. Atherosclerotic aorta. IMPRESSION: No acute process. Dictated by: Dictated on workstation # [id number]
--- NOTE | 2018-04-14 07:59 | History & Physicial ---
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 She does have a history of known asthma exacerbation/COPD. She does have steroid inhalers that she uses on a regular basis. Overnight however she was utilizing her albuterol nebulizer multiple times without gaining much relief. This prompted her to go to the emergency department. She has been on prednisone tapering schedule but this finished last week. She is not on daily prednisone and not steroid dependent. She currently denies any fevers. She does have a tendency to get bronchitis fairly easily. Date of Admission Apr 14, 2018 at 07:13 Date Seen by a Provider: Apr 14, 2018 Time Seen by a Provider: 08:00 I consulted on this patient on 04/14/18 07:54 Attending Physician Leah Wolf MD Admitting Physician Leah Wolf MD Consult Allergies and Home Medications Allergies Coded Allergies: aspirin (Verified Allergy, Severe, ANAPHYLAXIS, 08/07/17) ibuprofen (Verified Allergy, Severe, ANAPHYLAXIS, 08/07/17) ketorolac (Verified Allergy, Severe, ANAPHYLAXIS, 08/07/17) tetanus and diphtheria toxoids (Unverified Allergy, Severe, ANAPHYLAXIS, ) aloe (Verified Allergy, Mild, RASH, 08/07/17) latex (Verified Allergy, Mild, RASH, 08/07/17) OCCASIONALLY IS IRRITATING SKIN scopolamine (Verified Allergy, Mild, 08/07/17) iodine (Verified Adverse Reaction, Unknown, 08/07/17) Patient states she got dizzy, diaphoretic and saw stars. Uncoded Allergies: ALOE VERA (Allergy, Unknown, 12/23/05) SILK SUTURES (Adverse Reaction, Unknown, BODY REJECTS SUTURES, 10/07/13) Home Medications Albuterol Sulfate 2.5 Mg/3 Ml Vial.neb, 2.5 MG NEB TID, (Reported) MIXES WITH IPRATROPIUM SOLUTION Albuterol Sulfate 8.5 Gm Hfa.aer.ad, 2 PUFF IH Q4H PRN for SHORTNESS OF BREATH, (Reported) Albuterol Sulfate 2.5 Mg/3 Ml Vial.neb, 2.5 MG NEB Q2H PRN for SHORTNESS OF BREATH, (Reported) Alprazolam 1 Mg Tablet, 1 MG PO Q8H PRN for ANXIETY, (Reported) Calcium Carbonate/Vitamin D3 1 Each Tablet, 1 TAB PO BID, (Reported) Fenofibrate Nanocrystallized 145 Mg Tablet, 145 MG PO DAILY, (Reported) Furosemide 80 Mg Tablet, 40 MG PO DAILY, (Reported) TAKES 1/2 (80MG) TABLET Hydrocodone/Acetaminophen 1 Each Tablet, 1 TAB PO Q6H PRN for PAIN-MODERATE, ( Reported) Hyoscyamine Sulfate 0.125 Mg Tab.rapdis, 0.125 MG SL Q6H PRN for ABDOMINAL PAIN, (Reported) Ipratropium [place] 0.2 Mg/1 Ml Solution, 1 VIAL NEB TID, (Reported) MIXES WITH ALBUTEROL SOLUTION Loratadine 10 Mg Tablet, 10 MG PO DAILY, (Reported) Montelukast Sodium 10 Mg Tablet, 10 MG PO HS, (Reported) Pantoprazole Sodium 40 Mg Tablet.dr, 40 MG PO DAILY, (Reported) Potassium Chloride 10 Meq Tablet.er, 20 MEQ PO BID, (Reported) TAKES 2 (10 MEQ) TABLETS Promethazine HCl 25 Mg Tablet, 25 MG PO Q6H PRN for NAUSEA/VOMITING-2ND LINE, ( Reported) Warfarin Sodium 4 Mg Tablet, 4 MG PO 1800, (Reported) Patient Home Medication List Home Medication List Reviewed: Yes Past Iivbota-Fcdxoa-Thjgcf Hx Patient Social History Marrital Status: Alcohol Use: Denies Use Recreational Drug Use: No (history) Drug of Choice: + IV COCAINE USE Smoking Status: Former Smoker Former Smoker, Quit: Nov 17, 2000 Type Used: Cigarettes 2nd Hand Smoke Exposure: No Recent Foreign Travel: No Contact w/other who traveled: No Recent Hopitalizations: Yes Recent Infectious Disease Expo: No Immunizations Up To Date Tetanus Booster (TDap): Unknown Pediatric: No Date of Pneumonia Vaccine: Sep 05, 2012 Date of Influenza Vaccine: Mar 11, 2012 Seasonal Allergies Seasonal Allergies: Yes Surgeries Yes Abdominal, Adenoidectomy, Section, Gallbladder, Hysterectomy, Orthopedic, Tonsillectomy, Vascular Surgery Respiratory Yes (O2 AT HS 2-3L/NC AND PRN--NOCTURNAL HYPOXIA; ) Currently Using CPAP: No Currently Using BIPAP: No Cardiovascular Yes Chronic Edema/Swelling, Deep Vein Thrombosis, High Cholesterol, Hypertension, Peripheral Vascular Neurological Yes Neuropathy 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 System Hx 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 Disorders: No Sexually Transmitted Disease: No HIV/AIDS: No 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, 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 Yes Kidney Infection, Bladder Infection, Kidney Stones Gastrointestinal Yes (MULTIPLE HERNIA REPAIRS; MULTIPLE EGD'S /COLONOSCOPIES/POLYPECTOMIES) Abdominal Hernia, Gastroesophageal Reflux, Chronic Constipation, Chronic Diarrhea, Hepatitis, Polyps, Hiatal Hernia, Gall Bladder Disease, Irritable Bowel Musculoskeletal Yes Arthritis Endocrine History of Endocrine Disorders: Yes ("PRE-DIABETIC" ) HEENT History of HEENT Disorders: Yes (NASAL POLYPS) HEENT Disorders: Cataract Loss of Vision: Denies Hearing Impairment: Denies Cancer No Did You Recieve Any Treatments: No Psychosocial History of Psychiatric Problem: Yes Behavioral Health Disorders: Anxiety Integumentary History of Skin or Integumenta: Yes (CHRONIC VENOUS STASIS DERMATITIS AND ULCERS. ) Skin/Integumentary Disorders: Recent Skin Changes Blood Transfusions History of Blood Disorders: Yes (DVT'S/PE'S; PROBABLE PROTEIN C DEFICIENCY) Adverse Reaction to a Blood Tr: No (HAS HAD BLOOD WITH NO PROBLEMS) Family Medical History Significant Family History: Cancer, COPD, Vascular Disease Family Hx: Alcoholism Alcoholism Arthritis Asthma Cancer Cancer of colon Cancer of mouth Cardiovascular disease Cataract Cataracts Chest pain Colon cancer Completed stroke Diabetes mellitus Family history: Allergy Family history: Arthritis Family history: Asthma Family history: Cardiovascular disease Family history: Coronary thrombosis Family history: Diabetes mellitus Family history: Gastrointestinal disease Family history: Hypertension Family history: Thyroid disorder Headache Hearing loss Heart disease History of - anemia History of - respiratory disease Hypercholesterolemia Hypercholesterolemia Infertile Malignant neoplasm of lung Myocardial infarction Myocardial infarction Psychotic disorder Respiratory disorder Stroke No Family History of: AIDS Abdominal aortic aneurysm Abdominal aortic aneurysm [place]'s disease [place]'s disease Alzheimer's disease Aphasia Aphasia Congenital disease Congenital heart disease Congenital heart disease Congestive heart failure Coronary thrombosis Cystic fibrosis Cystic fibrosis Deafness or hearing loss Dementia Dementia Drug abuse Dysphagia Dysphasia Family history: Alzheimer's disease Family history: Breast disease Family history: Glaucoma Family history: Osteoporosis Fibrocystic disease of breast Gastroenteritis Glaucoma Headache disorder Hereditary disease History of - disorder History of drug abuse Human immunodeficiency virus (HIV) seropositivity Infertility Kidney disease Kidney disease Neoplasm Not obtainable due to adoption Osteoporosis Parkinson's disease Parkinson's disease Prostate cancer Psychosocial problem Seizure disorder Seizure disorder Severe allergy Thyroid disease Tuberculosis Tuberculosis Visual disorder Visual impairment Review of Systems Constitutional: see HPI Physical Exam Vital Signs Vital Signs - First Documented 04/14/18 05:40 Temp 97.9 Pulse 113 Resp 22 B/P (MAP) 124/95 (105) Pulse Ox 92 O2 Delivery Nasal Cannula O2 Flow Rate 2.00 Capillary Refill : Less Than 3 Seconds Height, Weight, BMI Height: 5'5.00" Weight: 184lbs. 6.0oz. 83.918088be; 29.9 BMI Method:Stated General Appearance: No Apparent Distress Eyes: Bilateral Eye Normal Inspection HEENT: Moist Mucous Membranes Neck: Supple Respiratory: Accessory Muscle Use (slight), Crackles, Wheezing Cardiovascular: Regular Rate, Rhythm Gastrointestinal: Soft Rectal: Deferred Back: Normal Inspection Extremity: Normal Capillary Refill Neurologic/Psychiatric: Alert, Oriented x3 Skin: Normal Color Assessment/Plan Assessment and Plan 1. COPD exacerbation -ED has initiated IV Solu-Medrol -She will be maintained on breathing treatments 2. Bronchitis -Initiation of Rocephin 3. History of chronic warfarin use due to DVT -She will be continued on warfarin Admission Diagnosis 1. COPD exacerbation 2. Bronchitis 3. History of chronic warfarin use due to DVT Admission Status: Inpatient Order (span 2 midnights) Reason for Inpatient Admission: Patient is admitted for IV Solu-Medrol and initiation of of IV antibiotics. LEAH OWLF MD Apr 14, 2018 07:59
[2018-04-14 09:25] VITALS: BP 135/75
[2018-04-14] MEDS ORDERED: FLU QUADRIvalent (5+ YOA) 2018-2019 (AFLURIA) 0.5 ML IM ONE (10:30)
[2018-04-14 10:39] LABS: BILIRUBIN,URINE NEGATIVE (NEGATIVE); CLARITY,URINE CLEAR; COLOR,URINE YELLOW; GLUCOSE, URINE (UA) NEGATIVE (NEGATIVE); KETONES,URINE NEGATIVE (NEGATIVE); LEUKOCYTE ESTERASE ,URINE 1+ (NEGATIVE); NITRITE,URINE NEGATIVE (NEGATIVE); PH,URINE 6.5 (5-9); PROTEIN,URINE NEGATIVE (NEGATIVE); UROBILINOGEN,URINE NORMAL (NORMAL)
[2018-04-14 10:47] LABS: BACTERIA,URINE TRACE /HPF
[2018-04-14] MEDS ORDERED: PROM25TA14 PO (10:53)
[2018-04-14] MEDS: RT-ALBUTEROL/IPRATROPIUM 3 ML (DUONEB) VIAL IH SCH ×3 (11:08→19:49)
[2018-04-14] MEDS: methylPREDNISolone 125 MG (Solu-MEDROL) VIAL IV SCH ×2 (11:58→17:19)
[2018-04-14 12:00] VITALS: BP 118/74
[2018-04-14] MEDS: CEFEPIME 2 GM/NS 50 ML IVPB IV SCH ×4 (14:46→22:06)
[2018-04-14 16:00] VITALS: BP 138/83
[2018-04-14 19:45] VITALS: BP 129/74
[2018-04-14] MEDS ORDERED: PROMETHAZINE 25 MG (PHENERGAN) TAB PO PRN (19:45)
[2018-04-14] MEDS ORDERED: NON-FORMULARY MEDICATION 1 EA EA (Hyoscyamine Sulfate 0.125 MG) SL PRN (19:45)
[2018-04-14] MEDS ORDERED: HYOSCYAMINE 0.125 MG (LEVSIN) TAB SL PRN (19:45)
[2018-04-14] MEDS ORDERED: ALPRAZolam 1 MG (XANAX) TAB PO PRN (19:45)
[2018-04-14] MEDS: KCL 10 MEQ TAB (MICRO K) PO SCH (20:10)
[2018-04-14] MEDS: HYDROcodone/APAP 10 MG/325 MG (LORTAB) TAB PO PRN (20:10)
[2018-04-14] MEDS: MONTELUKAST 10 MG (SINGULAIR) TAB PO SCH (20:11)
[2018-04-14] MEDS ORDERED: IPRATROPIUM BROMIDE NEB SCH (21:00)
[2018-04-14] MEDS ORDERED: RT-IPRATROPIUM (ATROVENT) 0.5MG/2.5ML AMP IH SCH (21:00)
[2018-04-15] VITALS (7 sets, daily range): BP systolic 124–136; BP diastolic 62–80
[2018-04-15] MEDS: methylPREDNISolone 125 MG (Solu-MEDROL) VIAL IV SCH ×2 (00:27→06:09)
[2018-04-15] MEDS: CEFEPIME 2 GM/NS 50 ML IVPB IV SCH ×2 (06:08)
[2018-04-15] MEDS: KCL 10 MEQ TAB (MICRO K) PO SCH ×2 (06:09→17:15)
[2018-04-15] MEDS: FUROSEMIDE 40 MG (LASIX) TAB PO SCH (06:09)
[2018-04-15] MEDS: PANTOPRAZOLE 40 MG (PROTONIX) TAB PO SCH (06:09)
[2018-04-15 06:17] LABS: BASOPHILS % (AUTO) 0 % (0-10); EOSINOPHILS % (AUTO) 0 % (0-10); HEMATOCRIT 38 % (35-52); HEMOGLOBIN 12.3 G/DL (11.5-16.0); LYMPHOCYTES # (AUTO) 0.7 X 10^3 (1.0-4.0); LYMPHOCYTES % (AUTO) 6 % (12-44); MEAN CORPUSCULAR HGB CONC 33 G/DL (32-36); MEAN CORPUSCULAR VOLUME 90 FL (80-99); MEAN PLATELET VOLUME 9.1 FL (7.4-10.4); MONOCYTES # (AUTO) 0.4 X 10^3 (0.0-1.0); MONOCYTES % (AUTO) 4 % (0-12); NEUTROPHILS # (AUTO) 10.6 X 10^3 (1.8-7.8); NEUTROPHILS % (AUTO) 90 % (42-75); PLATELET COUNT 287 10^3/uL (130-400); RED BLOOD COUNT 4.17 10^6/uL (4.35-5.85); RED CELL DISTRIBUTION WIDTH 14.2 % (10.0-14.5); WHITE BLOOD COUNT 11.7 10^3/uL (4.3-11.0)
[2018-04-15 06:42] LABS: MEAN CORPUSCULAR HEMOGLOBIN 29 PG (25-34)
[2018-04-15 06:44] LABS: ALANINE AMINOTRANSFERASE 17 U/L (0-55); ALBUMIN 3.7 GM/DL (3.2-4.5); ALKALINE PHOSPHATASE 66 U/L (40-136); BILIRUBIN,TOTAL 0.3 MG/DL (0.1-1.0); BUN/CREATININE RATIO 20; CARBON DIOXIDE 23 MMOL/L (21-32); CHLORIDE 108 MMOL/L (98-107); CREATININE SERUM 0.71 MG/DL (0.60-1.30); GFR ESTIMATED > 60; GLUCOSE 152 MG/DL (70-105); POTASSIUM 3.9 MMOL/L (3.6-5.0); SODIUM 141 MMOL/L (135-145); TOTAL PROTEIN 7.1 GM/DL (6.4-8.2)
[2018-04-15] MEDS: RT-ALBUTEROL/IPRATROPIUM 3 ML (DUONEB) VIAL IH SCH ×4 (07:11→19:25)
--- NOTE | 2018-04-15 07:36 | Progress Note (SOAP) ---
Subjective Date Seen by a Provider: Apr 15, 2018 Time Seen by a Provider: 07:15 Subjective/Events-last exam Her respiratory effort has improved. Less wheezing noted. Throat and tongue sore and previous when this occurred she had thrush Focused Exam Lactate Level 04/14/18 05:55: Lactic Acid Level 1.66 Objective Exam Vital Signs Date Time Temp Pulse Resp B/P (MAP) Pulse Ox O2 Delivery O2 Flow Rate FiO2 04/15/18 07:11 95 Nasal Cannula 1.00 04/15/18 00:06 98.0 100 19 126/74 (91) 93 Nasal Cannula 1.00 04/14/18 20:00 Nasal Cannula 1.00 04/14/18 19:50 94 Nasal Cannula 1.00 04/14/18 19:45 98.2 99 20 129/74 (92) 94 Nasal Cannula 1.00 04/14/18 16:00 98.4 105 20 138/83 (101) 95 Nasal Cannula 1.00 04/14/18 14:31 94 Nasal Cannula 1.00 04/14/18 12:00 97.8 111 18 118/74 (89) 95 Room Air 04/14/18 11:08 95 Nasal Cannula 1.00 04/14/18 09:25 97.6 113 22 135/75 (95) 93 04/14/18 09:00 94 Nasal Cannula 1.00 04/14/18 07:50 100 18 149/80 (103) 96 2.00 I & O 04/15/18 07:00 Intake Total 3420 ml Output Total 1750 ml Balance 1670 ml Capillary Refill : Less Than 3 Seconds General Appearance: No Apparent Distress HEENT: Other (mild erthema to tongue and soft palate) Neck: Supple Respiratory: Wheezing (faint diffusely throughout) Cardiovascular: Regular Rate, Rhythm Gastrointestinal: soft Extremity: Normal Capillary Refill Results Lab Laboratory Tests 04/14/18 10:30: Urine Color YELLOW, Urine Clarity CLEAR, Urine pH 6.5, Urine Specific [place] 1.015L, Urine Protein NEGATIVE, Urine Glucose (UA) NEGATIVE, Urine Ketones NEGATIVE, Urine Nitrite NEGATIVE, Urine Bilirubin NEGATIVE, Urine Urobilinogen NORMAL, Urine Leukocyte Esterase 1+H, Urine RBC (Auto) NEGATIVE, Urine RBC NONE , Urine WBC 5-10H, Urine Squamous Epithelial Cells 2-5, Urine Crystals NONE, Urine Bacteria TRACE, Urine Casts NONE, Urine Mucus NEGATIVE, Urine Culture Indicated NO 04/15/18 05:49: White Blood Count 11.7H, Red Blood Count 4.17L, Hemoglobin 12.3, Hematocrit 38, Mean Corpuscular Volume 90, Mean Corpuscular Hemoglobin 29, Mean Corpuscular Hemoglobin Concent 33, Red Cell Distribution Width 14.2, Platelet Count 287, Mean Platelet Volume 9.1, Neutrophils (%) (Auto) 90H, Lymphocytes (%) (Auto) 6L , Monocytes (%) (Auto) 4, Eosinophils (%) (Auto) 0, Basophils (%) (Auto) 0, Neutrophils # (Auto) 10.6H, Lymphocytes # (Auto) 0.7L, Monocytes # (Auto) 0.4, Eosinophils # (Auto) 0.0, Basophils # (Auto) 0.0, Sodium Level 141, Potassium Level 3.9, Chloride Level 108H, Carbon Dioxide Level 23, Anion Gap 10, Blood Urea Nitrogen 14, Creatinine 0.71, Estimat Glomerular Filtration Rate > 60, BUN/ Creatinine Ratio 20, Glucose Level 152H, Calcium Level 10.0, Corrected Calcium 10.2H, Total Bilirubin 0.3, Aspartate Amino Transf (AST/SGOT) 13, Alanine Aminotransferase (ALT/SGPT) 17, Alkaline Phosphatase 66, Total Protein 7.1, Albumin 3.7 Assessment/Plan Assessment/Plan Assess & Plan/Chief Complaint 1. COPD exacerbation -ED has initiated IV Solu-Medrol -She will be maintained on breathing treatments 04/15 -improved 2. Bronchitis -Initiation of Rocephin 3. 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 Oral thrush -diflucan Clinical Quality Measures Admission Status Admission Dx 1. COPD exacerbation 2. Bronchitis 3. History of chronic warfarin use due to DVT DVT/VTE Risk/Contraindication: Risk Factor Score Per Nursin RFS Level Per Nursing on Admit: 4+=Very High LEAH WOLF MD Apr 15, 2018 07:36
[2018-04-15] MEDS ORDERED: ACETAMINOPHEN 500 MG TAB (TYLENOL) PO PRN (07:45)
--- NOTE | 2018-04-15 07:51 | Diagnostic Imaging Report ---
INDICATION: COPD. Comparison made with prior examination 04/14/2018. FINDINGS: Heart size is normal. There is air trapping compatible with COPD. There is no pleural effusion or pneumothorax. Mediastinum is unremarkable. IMPRESSION: Air-trapping compatible with COPD. No other acute cardiopulmonary abnormality. Dictated by: Dictated on workstation # [id number]
[2018-04-15] MEDS ORDERED: NON-FORMULARY MEDICATION 1 EA EA (Fenofibrate Nanocrystallized (Fenofibrate) 145 MG) PO SCH (09:00)
[2018-04-15] MEDS ORDERED: FUROSEMIDE 40 MG PO SCH (09:00)
[2018-04-15] MEDS: LORATADINE (CLARITIN) 10 MG TAB PO SCH (09:42)
[2018-04-15] MEDS: fluCOnazole (DIFLUCAN) 100 MG TAB PO SCH (09:42)
[2018-04-15] MEDS: FENOFIBRATE 134 MG (LOFIBRA) CAPSULE PO SCH (09:45)
[2018-04-15] MEDS: HYDROcodone/APAP 10 MG/325 MG (LORTAB) TAB PO PRN (13:46)
[2018-04-15] MEDS: methylPREDNISolone 125 MG (Solu-MEDROL) VIAL IVP SCH ×2 (13:47→21:07)
[2018-04-15] MEDS ORDERED: WARFARIN SODIUM 4 MG PO SCH (18:00)
[2018-04-15] MEDS ORDERED: warFARin 2 MG (COUMADIN) TAB PO SCH (18:00)
[2018-04-15] MEDS: MONTELUKAST 10 MG (SINGULAIR) TAB PO SCH (21:07)
[2018-04-16 04:00] VITALS: BP 126/75
[2018-04-16] MEDS ORDERED: RT-ALBUTEROL SULF 2.5 MG/3 ML PRE-MIX VIAL INH PRN ×2 (04:00→05:30)
[2018-04-16] MEDS: PANTOPRAZOLE 40 MG (PROTONIX) TAB PO SCH (06:04)
[2018-04-16] MEDS: KCL 10 MEQ TAB (MICRO K) PO SCH (06:04)
[2018-04-16] MEDS: FUROSEMIDE 40 MG (LASIX) TAB PO SCH (06:04)
[2018-04-16] MEDS: methylPREDNISolone 125 MG (Solu-MEDROL) VIAL IVP SCH (06:04)
--- NOTE | 2018-04-16 07:39 | Discharge Summary ---
Diagnosis/Chief Complaint Date of Admission Apr 14, 2018 at 07:13 Date of Discharge April 16, 2018 Discharge Date: Apr 16, 2018 Discharge Time: 10:00 Admission Diagnosis Admission Diagnosis 1. COPD exacerbation 2. Bronchitis, clinically Discharge Diagnosis 1. COPD exacerbation 2. 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 She does have a history of known asthma exacerbation/COPD. She does have steroid inhalers that she uses on a regular basis. Overnight however she was utilizing her albuterol nebulizer multiple times without gaining much relief. This prompted her to go to the emergency department. She has been on prednisone tapering schedule but this finished last week. She is not on daily prednisone and not steroid dependent. She currently denies any fevers. She does have a tendency to get bronchitis fairly easily. Discharge Summary Hospital Course Hospital Course Patient was admitted during the morning of April 14, 2018 after having acute respiratory distress. Patient was admitted through the emergency department and she had received breathing treatments along with IV Solu-Medrol. She had stabilized but not well enough for home discharge. Patient does admit to cough that was slightly productive. She also received ceftriaxone dosage in the emergency department. On the floor patient continued to receive IV Solu-Medrol 125 mg every 6 hours during the day of April 14, 2018. Ultimately she improved with respiratory effort and clinically with decreased expiratory wheezing and less labored breathing. The IV Solu-Medrol was changed to every 8 hours on April 15, 2018. Patient continued to improve and in the morning of April 16, 2018 her lungs were with only faint expiratory wheeze in the apical region anterior. There was no reported fever. Her chest x-ray was reviewed with her on 2017 and revealed COPD changes and no infiltrates. All questions were answered and she was felt ready for dismissal during the morning of April 16, 2018. She will follow up in the afternoon of April 17, 2018 in office. Labs Laboratory Tests 04/14/18 05:55: Eosinophils # (Auto) 0.4H, Prothrombin Time 20.5H, INR Comment 1.8H, Potassium Level 3.5L, Glucose Level 110H 04/14/18 10:30: Urine Specific [place] 1.015L, Urine Leukocyte Esterase 1+H, Urine WBC 5-10H 04/15/18 05:49: Glucose Level 152H, White Blood Count 11.7H, Red Blood Count 4.17L, Neutrophils (%) (Auto) 90H, Lymphocytes (%) (Auto) 6L, Neutrophils # (Auto) 10.6H, Lymphocytes # (Auto) 0.7L, Chloride Level 108H, Corrected Calcium 10.2H Procedures None. Discharge Physical Examination Allergies: Coded Allergies: aspirin (Verified Allergy, Severe, ANAPHYLAXIS, 08/07/17) ibuprofen (Verified Allergy, Severe, ANAPHYLAXIS, 08/07/17) ketorolac (Verified Allergy, Severe, ANAPHYLAXIS, 08/07/17) tetanus and diphtheria toxoids (Unverified Allergy, Severe, ANAPHYLAXIS, ) aloe (Verified Allergy, Mild, RASH, 08/07/17) latex (Verified Allergy, Mild, RASH, 08/07/17) OCCASIONALLY IS IRRITATING SKIN scopolamine (Verified Allergy, Mild, 08/07/17) iodine (Verified Adverse Reaction, Unknown, 08/07/17) Patient states she got dizzy, diaphoretic and saw stars. Uncoded Allergies: ALOE VERA (Allergy, Unknown, 12/23/05) SILK SUTURES (Adverse Reaction, Unknown, BODY REJECTS SUTURES, 10/07/13) Vitals & I&Os Vital Signs Date Time Temp Pulse Resp B/P (MAP) Pulse Ox O2 Delivery O2 Flow Rate FiO2 04/16/18 04:00 97.0 106 20 126/75 (92) 95 Nasal Cannula 2.00 General Appearance: No Acute Distress Respiratory: Clear to Auscultation (With faint expiratory wheezing in the apical region) Cardiovascular: Regular Rate Abdominal: Soft Extremities: No Cyanosis Neuro: Normal Speech Psych/Mental Status: Mental Status NL Discharge Home Medications Reviewed and agree with Discharge Medication list on patient's Discharge Instruction sheet Instructions to Patient/Family Please see electronic discharge instructions given to patient. Clinical Quality Measures DVT/VTE Risk/Contraindication: Risk Factor Score Per Nursin RFS Level Per Nursing on Admit: 4+=Very High LEAH WOLF MD Apr 16, 2018 07:39
[2018-04-16] MEDS: RT-ALBUTEROL/IPRATROPIUM 3 ML (DUONEB) VIAL IH SCH (07:40)
[2018-04-16] MEDS ORDERED: PRD20T PO (07:42)
[2018-04-16] MEDS ORDERED: FLUC150T PO (07:42)
--- NOTE | 2018-04-16 07:44 | Discharge Inst-Simple/Standard ---
Discharge Inst-Standard Discharge Medications New, Converted or Re-Newed RX: Transmitted to Pharmacy Patient Instructions/Follow Up Plan of Care/Instructions/FU: Patient to follow-up with Dr. Wolf during the afternoon of April 17, 2018. Activity as Tolerated: Yes Discharge Diet: Low Fat/Low Cholesterol Return to The Hospital For: Worsening respiratory effort. Fever not controlled with Tylenol LEAH WOLF MD Apr 16, 2018 07:44
[2018-04-16 08:00] VITALS: BP 116/75
[2018-04-16] MEDS: LORATADINE (CLARITIN) 10 MG TAB PO SCH (08:25)
[2018-04-16] MEDS: fluCOnazole (DIFLUCAN) 100 MG TAB PO SCH (08:25)
[2018-04-16] MEDS: FENOFIBRATE 134 MG (LOFIBRA) CAPSULE PO SCH (08:25)
[2018-04-16 10:20] VITALS: BP 116/75
[2018-04-17] MEDS ORDERED: predniSONE 20 MG TAB PO SCH (07:00)
== END 2018-04-16 10:20 | disposition home or self-care (01) | DRG 191 ==
LOC: EDUNIT# 05:33 → ER 05:35 → 4TH 07:13
PROVIDERS: ADMIT Family Medicine; ATTEND Family Medicine
DX: J44.1 Chronic obstructive pulmonary disease with (acute) exacerbation (principal); J40 Bronchitis, not specified as acute or chronic; B37.0 Candidal stomatitis; D68.59 Other primary thrombophilia; J30.2 Other seasonal allergic rhinitis; G47.34 Idiopathic sleep related nonobstructive alveolar hypoventilation; E78.00 Pure hypercholesterolemia, unspecified; I10 Essential (primary) hypertension; I73.9 Peripheral vascular disease, unspecified; F41.9 Anxiety disorder, unspecified; I87.2 Venous insufficiency (chronic) (peripheral); R73.03 Prediabetes; M19.91 Primary osteoarthritis, unspecified site; G62.9 Polyneuropathy, unspecified; K21.9 Gastro-esophageal reflux disease without esophagitis; K58.1 Irritable bowel syndrome with constipation; K58.0 Irritable bowel syndrome with diarrhea; K44.9 Diaphragmatic hernia without obstruction or gangrene; F14.90 Cocaine use, unspecified, uncomplicated; Z79.01 Long term (current) use of anticoagulants; Z86.711 Personal history of pulmonary embolism; Z86.718 Personal history of other venous thrombosis and embolism; Z87.891 Personal history of nicotine dependence; Z86.19 Personal history of other infectious and parasitic diseases
CPT/HCPCS: 36415; 71045; 71046; 76937; 80053; 81000; 83605; 84484; 85025; 85610; 85730; 87040; 87088; 93005; 94640; 94760; 96361; 96365; 96375

== ENCOUNTER → 2018-04-17 | Outpatient (CLI) | payer MEDICAID | LOC: WOUNDCARE 08:32 | PROVIDERS: ATTEND Orthopaedic Surgery Hand Surgery | DX: L97.822 Non-pressure chronic ulcer of other part of left lower leg with fat layer exposed (principal); I87.332 Chronic venous hypertension (idiopathic) with ulcer and inflammation of left lower extremity; I87.321 Chronic venous hypertension (idiopathic) with inflammation of right lower extremity; J44.9 Chronic obstructive pulmonary disease, unspecified | CPT/HCPCS: 97597 ==

== ENCOUNTER → 2018-04-24 | Outpatient (CLI) | payer MEDICAID | LOC: WOUNDCARE 09:01 | PROVIDERS: ATTEND Orthopaedic Surgery Hand Surgery | DX: I87.332 Chronic venous hypertension (idiopathic) with ulcer and inflammation of left lower extremity (principal); I87.321 Chronic venous hypertension (idiopathic) with inflammation of right lower extremity; J44.9 Chronic obstructive pulmonary disease, unspecified | CPT/HCPCS: 99212 ==

== ENCOUNTER → 2018-06-20 | Outpatient (CLI) | payer MEDICAID ==
--- NOTE | 2018-06-20 11:30 | Diagnostic Imaging Report ---
INDICATION: COUGH, SOB. COMPARISON: 04/15/2018. FINDINGS: Frontal and lateral views of the chest demonstrate normal heart size and pulmonary vascularity. The lungs are hyperinflated, but are otherwise clear. There are no signs of infiltrate, pleural effusions or pneumothoraces. The visualized osseous structures show no acute abnormalities. IMPRESSION: 1. Hyperinflated appearance of the lungs. Correlation with underlying obstructive pulmonary disease is recommended. Otherwise, no evidence of failure or focal infiltrate. Dictated by: Dictated on workstation # [id number]
== END ==
LOC: RAD 10:07
PROVIDERS: ATTEND Family Medicine
DX: R91.8 Other nonspecific abnormal finding of lung field (principal); R05 Cough; R06.02 Shortness of breath
CPT/HCPCS: 71046

== ENCOUNTER 2018-07-07 18:10 | Observation (INO) | payer MEDICAID ==
[~2018-07-07] VITALS: Ht 165.1 cm; Wt 89.4 kg
--- OUTSIDE RECORDS SUMMARY | 2018-07-07 18:34 | XMS REPORT | Clinical Summary ---
Author Author [facility] Organization [facility] Address Unknown Phone Unavailable Care Team Providers Care Bursar Name Role Phone Jay Rogers MD PCP Joshua Ku MD Unavailable Source Comments Some departments are not documenting in the electronic medical record. If you do not see the information that you expected, contact Release of Information in the Health Information Management department at [phone] for further assistance in locating additional records.[facility] Allergies Comments Active Allergy Reactions Severity Noted Date Aloe Vera REDNESS Low 04/29/2018 Aspirin ANAPHYLAXIS High 04/29/2018 Ibuprofen ANAPHYLAXIS High 04/29/2018 Iodinated Contrast- Oral UNKNOWN Low 04/29/2018 And Iv Dye Ketorolac ANAPHYLAXIS High 04/29/2018 Latex REDNESS Low 04/29/2018 Tetanus And Diphtheria ANAPHYLAXIS High 04/29/2018 Toxoids, Adsorbed, Adult Medications End Date Status Medication Sig Dispensed Refills Start Date Active medical supply, Use as 0 miscellaneous directed. (COMPRESSION STOCKINGS 20-30 mm hg MISC) pressure Active PROAIR HFA 90 0 mcg/actuation inhaler 8 Active ALPRAZolam (XANAX) 1 mg 0 tablet 8 Active furosemide (LASIX) 40 mg 0 tablet 8 Active ipratropium bromide 0 (ATROVENT) 0.02 % 8 nebulizer solution Active potassium chloride SR Take 20 mEq 5 (K-DUR) 20 mEq tablet by mouth 8 every 48 hours. Active fenofibrate Take 145 mg 0 nanocrystallized (TRICOR) by mouth 145 mg tablet daily. Take with food. Active loratadine (CLARITIN) 10 Take 10 mg by 0 mg tablet mouth every morning. Active pantoprazole DR Take 40 mg by 0 (PROTONIX) 40 mg tablet mouth daily. Active montelukast (SINGULAIR) Take 10 mg by 0 10 mg tablet mouth at bedtime daily. Active warfarin (COUMADIN) 5 mg Take 5 mg by 0 tablet mouth daily. Active HYDROcodone/acetaminophen Take 1 tablet 0 (+) (NORCO) 10/325 mg by mouth tablet every 6 hours as needed for Pain Active CALCIUM PO Take by 0 mouth. Active hyoscyamine sulfate Take 125 mcg 0 (LEVSIN) 0.125 mg tablet by mouth every 4 hours as needed for Cramps. Active promethazine (PHENERGAN) Take 25 mg by 0 25 mg tablet mouth every 6 hours as needed for Nausea or Vomiting. 07/11/2018 Active HYDROcodone/acetaminophen Take one 20 tablet 0 (NORCO) 5/325 mg tablet tablet to two 9 tablets by mouth every 4 hours as needed for Pain for up to 30 days Earliest Fill Date: 06/11/18 06/13/2018 LORazepam (ATIVAN) 0.5 mg Take one 4 tablet 0 tablet tablet to two 9 tablets by mouth as Needed for up to 2 days. 06/13/2018 lidocaine/prilocaine Apply thirty 60 g 0 (EMLA) 2.5/2.5 % topical g topically 9 cream to affected area as Needed for up to 2 days. Active Problems Problem Noted Date Varicose veins of left lower extremity with other complications 05/01/2018 Leg swelling 05/01/2018 Protein C deficiency 05/01/2018 Encounters Care Team Description Date Type Specialty Joshua Ku MD General Question 07/07/2018 Telephone Vascular Surgery Joshua Ku MD Varicose veins of left lower extremity with other complications 07/04/2018 Procedure visit Vascular Surgery Joshua Ku MD Varicose veins of right lower extremity with pain ( Primary Dx) 07/03/2018 Procedure visit Vascular Surgery Joshua Ku MD General Question 07/02/2018 Telephone Vascular Surgery Joshua Ku MD 06/11/2018 Refill Vascular Surgery Joshua Ku MD General Question (Pt wanted to know could she be re submitted to Insurance for vein procedure. Was advised maybe we didnt send all clinical info for it. She asked to recieve a call back to go over options.) 06/09/2018 Telephone Vascular Surgery Joshua Ku MD Prior Authorization; Prior Authorization 06/03/2018 Telephone Vascular Surgery Aide Oswald MD 05/26/2018 Telephone Vascular Surgery Joshua Ku MD Prior Authorization (please precert) 05/02/2018 Telephone Vascular Surgery Varicose veins of bilateral lower extremities with pain 04/29/2018 Clinical Vascular Surgery Support Joshua Ku MD Varicose veins of right lower extremity with other complications (Primary Dx); Varicose veins of left lower extremity with other complications; Leg swelling; Protein C deficiency (HCC) 04/29/2018 Office Visit Vascular Surgery from Last 3 Months Family History Medical History Relation Name Comments Hypertension Father Heart Disease Maternal Grandfather Stroke Maternal Grandfather Stroke Maternal Grandmother Diabetes Mother Stroke Mother Stroke Paternal Grandfather Cancer Paternal Grandmother Relation Name Status Comments Father Maternal Grandfather Maternal Grandmother Mother Paternal Grandfather Paternal Grandmother Social History Date Tobacco Use Types Packs/Day Years Used Former Smoker Smokeless Tobacco: Never Used Alcohol Use Drinks/Week oz/Week Comments Yes Alcohol Habits Answer Date Recorded How often do you have a drink containing alcohol? Never 04/29/2018 How many drinks containing alcohol do you have on Not asked a typical day when you are drinking? How often do you have six or more drinks on one Not asked occasion? Sex Assigned at Date Recorded Not on file Industry Job Start Date Occupation Not on file Not on file Not on file Travel End Travel History Travel Start No recent travel history available. Last Filed Vital Signs Time Taken Vital Sign Reading 04/29/2018 11:50 AM PHOTOGRAPHIC PROCESS WORKER Blood Pressure 110/72 - Pulse - - Temperature - - Respiratory Rate - - Oxygen Saturation - - Inhaled Oxygen - Concentration 04/29/2018 11:50 AM PHOTOGRAPHIC PROCESS WORKER Weight 83.9 kg (185 lb) 04/29/2018 11:50 AM PHOTOGRAPHIC PROCESS WORKER Height 165.1 cm (5' 5") 04/29/2018 11:50 AM PHOTOGRAPHIC PROCESS WORKER Body Mass Index 30.79 Plan of Treatment Health Maintenance Due Date Last Done Comments HEPATITIS C SCREENING 1960 PHYSICAL (COMPREHENSIVE) 1965 EXAM HIV SCREENING 1973 DTAP/TDAP VACCINES (1 - 1976 Tdap) CERVICAL CANCER SCREENING 1988 BREAST CANCER SCREENING 1998 COLORECTAL CANCER 2008 SCREENING SHINGLES RECOMBINANT 2008 VACCINE (1 of 2) INFLUENZA VACCINE 12/11/2017 Procedures Comments Procedure Name Priority Date/Time Associated Diagnosis US DOPPLER VENOUS Routine 05/02/2018 Varicose veins of BILATERAL bilateral lower extremities with pain from Last 3 Months Results * US DOPPLER VENOUS BILATERAL (05/02/2018) Narrative Performed At Performing Organization Address City/State/Zipcode Phone Number [facility] from Last 3 Months Insurance Payer Benefit Subscriber ID Type Phone Address Plan / Group AETNA MEDICAID AETNA xxxxxxxxxxx [facility] Advance Directives Patient has advance care planning documents on file. For more information, please contact: [facility] [address] [place] [address]
--- OUTSIDE RECORDS SUMMARY | 2018-07-07 18:35 | XMS REPORT | Encounter Summary ---
Author Author [facility] Organization [facility] Address Unknown Phone Unavailable Care Team Providers Care Chronic Care Nurse Name Role Phone Jay Rogers MD PCP Joshua Ku MD Unavailable Reason for Visit * Reason Comments Procedure right great saphenous endovenous ablation with right leg microphlebectomy * Outpatient Surgery (Routine) Referred By Contact Referred To Contact Status Reason Specialty Diagnoses / Procedures Joshua Ku MD [address] [facility] [place] [address] Joshua Ku MD [address] [facility] [place] [address] Authorized Vascular Surgery Diagnoses Varicose veins of right lower extremity with other complications Varicose veins of left lower extremity with other complications Other specified soft tissue disorders Other primary thrombophilia ([facility]) i83.891 i83.892 m79.89 d68.59 P rocedures OK ENDOVEN ABLTJ INCMPTNT VEIN XTR RF 1ST VEIN OK STAB PHLEBT VARICOSE VEINS 1 XTR 10-20 STAB INCS OK STAB PHLEBT VARICOSE VEINS 1 XTR > 20 INCS 1. dre right gsv, mp >20 2. dre left gsv, mp >20 Encounter Details Care Team Description Date Type Department Joshua Ku MD [address] [facility] [place] [address] [phone] Varicose veins of right lower extremity with pain (Primary Dx) 07/03/2018 Procedure visit [facility] [address] [place] [address] Social History Date Tobacco Use Types Packs/Day [...] Travel Start No recent travel history available. as of this encounter Patient Instructions * Patient Instructions* Maria Ines Sandoval Sherine - 07/03/2018 2:00 PM RECONCILIATION ANALYST [facility] [address] [place], [place] [address] Instructions following Vein Procedure 1. If you have bleeding at home after your procedure that seeps through the lisa bandage, you may apply pressure to the area, elevate the leg, also apply ice as needed. Please also feel free to contact our office in this case 2. You may remove the compression wrap/stocking and bandages in 24 hours and start using your compression stocking. Do not be surprised to see drainage on the white gauze pads, this is to be expected. 3. You may shower after removing the bandages in 24 hours, leaving steri-strips in place. 4. You may remove the steri-strips in 7 days, it is ok if they fall off before 7 days. 5. Wear your compression stocking day and night for 7 days, then daily for 3 weeks. After the initial weeks, it is beneficial to wear a knee high compression stocking for prevention of future vein disease. 6. Please avoid hot tubs, baths, pools and lakes for one week. 7. Please avoid long travel (i.e. plane or car) for one week. 8. Activity: a. Walking is OK and encouraged starting the same day as the procedure. b. No lower body work out for one week (i.e. running/ weight training) 9. You are strongly encouraged to take an anti-inflammatory such as Naprosyn ( Aleve) twice daily, or Ibuprofen (Motrin, Advil) 400-600 mg three time daily, for at least the first 3 days following your procedure. If you continue to have pain use the prescribed narcotic pain medication. 10. Your follow up appointment has been scheduled with your doctor. Please call to reschedule if your given time does not work Please call if you have any questions. Annie Brooks RN, BSN was your nurse today Joshua Ku MD was your doctor today. NCILIATION ANALYST in this encounter Progress Notes * Joshua Ku MD - 07/03/2018 2:00 PM RECONCILIATION ANALYST OPERATIVE REPORT/RADIOFREQUENCY ABLATION w/MP Date: 07/03/2018 Patient: Sujey Feliz : 1960 Diagnosis: Venous valvular insufficiency involving the right great saphenous vein producing symptomatic varicose bulging veins and refractory edema with lipodermatosclerosis. Operation(s): 1. Endovenous radiofrequency ablation of the right great saphenous vein requiring single site microaccess. 2. Microphlebectomy right leg greater than 21 , Total of 21 varicose veins in the medial, anterior thigh, medial, lateral, posterior knee and medial, lateral calf. Surgeon: Joshua Ku MD M.D., F.A.C.S., R.P.V.I. Heating Worker(s): Annie Brooks R.N.-B.S.NCamryn and Maria Ines Sandoval Patient Assembly Instructions Writer/ORA Medications: Xanax 1mg Emla cream - 30 grams Procedure start time: 1444 Procedure: Varicose clusters were then marked with the patient standing. The patient was placed in the supine position on the operating table, the leg prepped with Chloroprep and sterile drapes applied. A time out was performed verifying correct patient, correct procedure and correct site. The patient was placed in reverse-Trendelenburg position and local anesthesia was instilled in the skin overlying the access site. The great saphenous vein at the level of the proximal calf was punctured through the skin and using ultrasound guidance a guide wire was introduced through the needle which was then exchanged over the guide wire for a 7F sheath. The guide wire was removed. The RF probe was placed into the vein through the sheath and positioned 3cm distal to the saphenofemoral junction measured with ultrasound caliper. After the RF probe position was verified by ultrasound, tumescent anesthesia ( 50 mL 1% lidocaine with epinephrine, 5 mL 8.4% sodium bicarbonate in 500 mL of 0.9% normal saline) was infiltrated, under ultrasound guidance, precisely into the perivenous compartment along the entire length of vein from the entry site to the saphenofemoral junction until a "halo" of fluid was noted around the vein. The patient was then placed in Trendelenburg position and the superficial venous system was exsanguinated. After RF probe position was again confirmed with ultrasound imaging, RF energy was applied twice to each segment treatment.. The probe was withdrawn at a rate of approximately 6.5 cm at 20 second intervals and monitored to keep the vein wall temperature within 110 5 C and the generator output well below its 40-watt maximum power. Total treatment 10 cycles, 34 cm, Total Tumescent 300ml, Total 1% lidocaine 5ml. Ablation of the great saphenous vein was completed with radiofrequency ablation. The sheath and ablation catheter were then removed. Duplex imaging confirmed the endovascular venous ablation was successful, as it showed no flow present in the treated vein(s) and normal flow in the femoral vein. Microphlebectomy was then performed. Tumescent anesthetic was infiltrated along the previously marked varicose clusters. An 18-gauge needle was used to gain entry through the skin with a #1 Oesch vein hook. The vein(s) were grasped with mosquito clamps and teased out. Hemostasis was obtained by direct pressure application. greater than 21 micro-incisions were required 21. Steri- strips were placed and 5-0 nylon suture used to close skin incisions A compression dressing was applied with dry 4 x 4 gauze dressing and an elastic compression wrap. Extra padding was applied along the lateral knee to prevent peroneal nerve compression injury. The patient tolerated the procedure well and was fully ambulatory after the procedure and left the facility in good condition. Post procedure instructions were given. Procedure end time: 1520 Joshua Ku MD Date: 07/03/2018 Problem List Items Addressed This Visit None Visit Diagnoses Varicose veins of right lower extremity with pain - Primary NCILIATION ANALYST in this encounter Plan of Treatment Not on fileas of this encounter Visit Diagnoses Diagnosis Varicose veins of right lower extremity with pain - Primary Varicose veins of lower extremities with other complications in this encounter
--- OUTSIDE RECORDS SUMMARY | 2018-07-07 18:35 | XMS REPORT | Encounter Summary ---
Author Author [facility] Organization [facility] Address Unknown Phone Unavailable Care Team Providers Care Hot Saw Operator Name Role Phone Jay Rogers MD PCP Joshua Ku MD Unavailable Encounter Details Care Team Description Date Type Department Aide Oswald MD [address] [facility] [place] [address] 05/26/2018 Telephone [facility] - [facility] [address] [place] [address] Social History Date Tobacco Use [...] travel history available. as of this encounter Miscellaneous Notes * Telephone Encounter - Stella Anderson - 05/29/2018 8:32 AM COMMUNICATIONS STRATEGIST They just don't, that's their policy. UNICATIONS STRATEGIST * Telephone Encounter - Andie Carrillo - 05/29/2018 8:09 AM COMMUNICATIONS STRATEGIST I am waiting for a fax or letter to specify. I am not sure about the MP's. Would you suggest I call about it? Why does Medicaid not approve ablations? UNICATIONS STRATEGIST * Telephone Encounter - Stella Anderson - 05/28/2018 11:34 AM COMMUNICATIONS STRATEGIST This is pretty typical with Medicaid. Did our 42294/43747 codes get approved? UNICATIONS STRATEGIST * Telephone Encounter - Clarisa Hutchinson - 05/26/2018 3:36 PM COMMUNICATIONS STRATEGIST AET[employer] INFORMING CPT 35719 IS NOT AUTHORIZED UNDER [place] MEDICAID - CALL REP MARTHA AT [phone] FOR MORE INFORMATION BEFORE THE MED DIRECTOR HAS TO REVIEW UNICATIONS STRATEGIST in this encounter Plan of Treatment Not on fileas of this encounter Visit Diagnoses Not on filein this encounter
--- OUTSIDE RECORDS SUMMARY | 2018-07-07 18:35 | XMS REPORT | Encounter Summary ---
Author Author [facility] Organization [facility] Address Unknown Phone Unavailable Care Team Providers Care Butcher Meat Name Role Phone Jay Rogers MD PCP Joshua Ku MD Unavailable Reason for Visit * Reason Comments Prior Authorization Prior Authorization Encounter Details Care Team Description Date Type Department Joshua Ku MD [address] [facility] [place] [address] Prior Authorization; Prior Authorization 06/03/2018 Telephone [facility] Phys[facility] - [facility] [address] [place] [address] Social History Date Tobacco Use [...] * Telephone Encounter - Stella Anderson - 06/10/2018 3:25 PM TYPO MACHINE OPERATOR Patient is going to be approved for ablation. NONFARM ANIMAL CARETAKER OVERTURNED THE DECISION OF MEDICAL POLICY. Referral in chart. MACHINE OPERATOR * Telephone Encounter - Stella Anderson - 06/10/2018 2:21 PM TYPO MACHINE OPERATOR Spoke with patient, she is faxing me a letter. I have also left a message for insurance rep Kesha. I need to speak with her. MACHINE OPERATOR * Telephone Encounter - Roselyn Dudley - 06/10/2018 9:18 AM TYPO MACHINE OPERATOR Who is calling? Sujey Feliz What is the patients need/concern? Pt called looking to speak with Stella in regards to the letter she received for her vein procedure. Pt would like a call back when convenient. Which hospital was the patient seen at? n/a Are there any other needs/concerns the patient has? no If yes, description of concern: Expected response time frame given to patient: 24 hours Read back to patient before sending: yes Call Back phone number: [phone] MACHINE OPERATOR * Telephone Encounter - Joseline Calabrese - 06/09/2018 4:00 PM TYPO MACHINE OPERATOR Who is calling? Sujey Feliz What is the patients need/concern? PATIENT CALLED AND STATED THAT SHE RECEIVED HER LETTER FROM HER INSURANCE COMPANY THAT SHE WAS APPROVED HER VEIN PROCEDURE. PATIENT STATED THAT SHE WOULD LIKE TO DISCUSS WITH YOU FURTHER ABOUT HER LETTER THAT SHE RECEIVED TODAY (06/09/2018). Which hospital was the patient seen at? N/A Are there any other needs/concerns the patient has? no If yes, description of concern: Expected response time frame given to patient: I TOLD PATIENT THAT SHE WILL RECEIVE A CALL BACK IF NOT TODAY THEN BY TOMORROW AT THE LATEST. Read back to patient before sending: yes Call Back phone number: [phone] MACHINE OPERATOR * Telephone Encounter - Stella Anderson - 06/09/2018 12:46 PM TYPO MACHINE OPERATOR Spoke with patient, she called and stated her talked with an insurance rep who told her that they needed more information and that's why they denied. I explained to patient that that was not the case and this is not a covered benefit by Medicaid. I did give her the ablation CPT Code so she could call and double check as well. Patient can have MPs. But ablations will be OOP. MACHINE OPERATOR * Telephone Encounter - Drois Bowie RN - 06/04/2018 8:[address] Bass, Patient insurance doesn't cover ablations. I don't feel that just MP would benefit her. Patient reports that her insurance does cover traditional "stripping" Due to her skin changes and healed ulcers I don't feel that MPs would be beneficial. I feel that she may benefit from venaseal to treat her distal disease and perforators. Patient may be interested in care credit to cover her procedures. MACHINE OPERATOR * Telephone Encounter - Stella Anderson - 06/03/2018 3:30 PM TYPO MACHINE OPERATOR Patient was approved for MPs with Medicaid. Ablations are not a covered benefits. Pt will have to pay OOP for those. I have quoted her for ablations. She would like to speak with a nurse regarding how to proceed with procedures. Please call back at [phone] MACHINE OPERATOR in this encounter Plan of Treatment Not on fileas of this encounter Visit Diagnoses Not on filein this encounter
--- OUTSIDE RECORDS SUMMARY | 2018-07-07 18:35 | XMS REPORT | Encounter Summary ---
Author Author [facility] Organization [facility] Address Unknown Phone Unavailable Care Team Providers Care Airline Captain Name Role Phone Jay Rogers MD PCP Joshua Ku MD Unavailable Reason for Visit * Reason Comments Leg Swelling bilateral legs Leg Pain bilateral legs Encounter Details Care Team Description Date Type Department Joshua Ku MD [address] [facility] [place] [address] Varicose veins of right lower extremity with other complications (Primary Dx); Varicose veins of left lower extremity with other complications; Leg swelling; Protein C deficiency (HCC) 04/29/[address] [facility] Phys[facility] - [facility] [address] [place] [address] Social History Date Tobacco Use [...] travel history available. as of this encounter Last Filed Vital Signs Time Taken Vital Sign Reading 04/29/2018 11:50 AM CUSTOMER SERVICE ASSISTANT Blood Pressure 110/72 - Pulse - - Temperature - - Respiratory Rate - - Oxygen Saturation - - Inhaled Oxygen - Concentration 04/29/2018 11:50 AM CUSTOMER SERVICE ASSISTANT Weight 83.9 kg (185 lb) 04/29/2018 11:50 AM CUSTOMER SERVICE ASSISTANT Height 165.1 cm (5' 5") 04/29/2018 11:50 AM CUSTOMER SERVICE ASSISTANT Body Mass Index 30.79 in this encounter Progress Notes * Joshua Ku MD - 04/29/2018 11:10 AM CUSTOMER SERVICE ASSISTANT Date of Service: 04/29/2018 Chief Complaint Patient presents with Leg Swelling bilateral legs Leg Pain bilateral legs History of Present Illness Ms. Feliz is a 57-year-old female in today with complaints of bilateral lower extremity varicose veins and spider veins. She has associated symptoms of bilateral lower extremity skin changes, recurrent wounds, cramping, restlessness , throbbing, burning, and swelling. She has had her symptoms for years, and they have been increasing in severity. Her symptoms are worse later in the day and with activity. Her symptoms interfere with her sleep. Her symptoms interfere with daily activities such as her ability to stand or sit for prolonged periods of time and she has to stop what she is doing periodically to elevate her legs. She has tried conservative treatment with compression stockings and leg elevation. She has worn compression for greater than 3 months , and continues to have symptoms. She reports a history of pulmonary embolism and lower extremity deep vein thrombosis. She has protein c deficiency. She reports a history of left lower extremity varicose vein stripping in the distant past. She has had 4 pregnancies and 1 miscarriage in the past. Past Medical History: Diagnosis Date Asthma Chronic obstructive pulmonary disease (COPD) (HCC) Deep vein thrombosis (HCC) 2010 Pulmonary embolism (HCC) 2010 Varicose veins of lower extremity Past Surgical History: Procedure Laterality Date SHOULDER SURGERY 2007 scope KNEE ARTHROSCOPY 2009 VENA CAVA FILTER PLACEMENT 2010 trap ease filter HX HYSTERECTOMY Allergies: Allergies Allergen Reactions Asa [Aspirin] ANAPHYLAXIS Ibuprofen ANAPHYLAXIS Ketorolac ANAPHYLAXIS Tetanus And Diphtheria Toxoids, Adsorbed, Adult ANAPHYLAXIS Aloe Vera REDNESS Iodinated Contrast- Oral And Iv Dye UNKNOWN Latex REDNESS Medication List: ALPRAZolam (XANAX) 1 mg tablet CALCIUM PO Take by mouth. fenofibrate nanocrystallized (TRICOR) 145 mg tablet Take 145 mg by mouth daily. Take with food. furosemide (LASIX) 40 mg tablet HYDROcodone/acetaminophen(+) (NORCO) 10/325 mg tablet Take 1 tablet by mouth every 6 hours as needed for Pain hyoscyamine sulfate (LEVSIN) 0.125 mg tablet Take 125 mcg by mouth every 4 hours as needed for Cramps. ipratropium bromide (ATROVENT) 0.02 % nebulizer solution loratadine (CLARITIN) 10 mg tablet Take 10 mg by mouth every morning. medical supply, miscellaneous (COMPRESSION STOCKINGS MISC) Use as directed. 20-30 mm hg pressure montelukast (SINGULAIR) 10 mg tablet Take 10 mg by mouth at bedtime daily. pantoprazole DR (PROTONIX) 40 mg tablet Take 40 mg by mouth daily. potassium chloride SR (K-DUR) 20 mEq tablet Take 20 mEq by mouth every 48 hours. PROAIR HFA 90 mcg/actuation inhaler promethazine (PHENERGAN) 25 mg tablet Take 25 mg by mouth every 6 hours as needed for Nausea or Vomiting. warfarin (COUMADIN) 5 mg tablet Take 5 mg by mouth daily. Social History: reports that she has quit smoking. she has never used smokeless tobacco. She reports that she drinks alcohol. She reports that she uses drugs. Family History Problem Relation Age of Onset Diabetes Mother Stroke Mother Hypertension Father Stroke Maternal Grandmother Stroke Maternal Grandfather Heart Disease Maternal Grandfather Cancer Paternal Grandmother Stroke Paternal Grandfather Review of Systems Constitutional: Negative for activity change, appetite change, chills, diaphoresis, fatigue, fever and unexpected weight change. HENT: Positive for hearing loss and tinnitus. Negative for nosebleeds. Eyes: Negative for photophobia, itching and visual disturbance. Respiratory: Positive for cough. Negative for apnea, chest tightness and shortness of breath. Cardiovascular: Positive for leg swelling. Negative for chest pain and palpitations. Gastrointestinal: Positive for constipation and diarrhea. Negative for abdominal pain, blood in stool, nausea and vomiting. Endocrine: Negative for cold intolerance and heat intolerance. 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: Negative for dysuria, frequency, hematuria and urgency. Musculoskeletal: Negative for arthralgias, back pain, gait problem, joint swelling, myalgias, neck pain and neck stiffness. Skin: Negative for color change, rash and wound. Allergic/Immunologic: Positive for environmental allergies and food allergies. Negative for immunocompromised state. Neurological: Negative for dizziness, tremors, seizures, syncope, facial asymmetry, speech difficulty, weakness, light-headedness, numbness and headaches. Hematological: Negative for adenopathy. Does not bruise/bleed easily. Psychiatric/Behavioral: Negative for behavioral problems, confusion and dysphoric mood. The patient is not nervous/anxious. Vitals: 04/29/18 1150 BP: 110/72 Weight: 83.9 kg (185 lb) Height: 165.1 cm (65") Body mass index is 30.79 kg/m. Physical Exam Constitutional: She is oriented to person, place, and time. She appears well- developed and well-nourished. No distress. Neck: Normal range of motion. Neck supple. Carotid bruit is not present. Cardiovascular: Normal rate, regular rhythm and normal heart sounds. Pulses: Dorsalis pedis pulses are 2+ on the right side, and 2+ on the left side. Posterior tibial pulses are 2+ on the right side, and 2+ on the left side. Pulmonary/Chest: Effort normal and breath sounds normal. Abdominal: Soft. She exhibits no distension. There is no tenderness. no abdominal wall varicose veins Neurological: She is alert and oriented to person, place, and time. No cranial nerve deficit. Normal speech, normal motor function, no gross neurologic deficits Skin: Right leg - diffuse telangiectasia, no swelling of the leg/ankle or foot, no skin changes, no skin breakdown. Left leg - diffuse telangiectasia, no swelling of the leg/ankle or foot, no skin changes, no skin breakdown. Psychiatric: She has a normal mood and affect. Her behavior is normal. Thought content normal. Examination of the lower extremities bilateral lipodermatosclerosis in a stocking-like distribution. There are moderate varicose veins on the medial anterior aspect of the calf and right lateral knee. 2+ palpable posterior tibial pulses. There is a 1 x 1 cm ulcer near completely healed on the anterior aspect of the left barrera, just proximal to the ankle. Assessment and Plan: Impression: #1 varicose veins with pain, inflammation and ulceration. 2. Hypercoagulable state, specifically protein C deficiency. Patient is on warfarin on a chronic basis. 3. Status post inferior vena cava filter placement. 4. History of bilateral deep vein thromboses. 5. VC SS 15, 17 6. CEA P4, 6 Plan: #1 continue warfarin indefinitely. 2. Bilateral venous duplex scan of the lower extremities 3. Continue compression therapy 1. Varicose veins of right lower extremity with other complications 2. Varicose veins of left lower extremity with other complications 3. Leg swelling 4. Protein C deficiency (HCC) OMER SERVICE ASSISTANT in this encounter Plan of Treatment Not on fileas of this encounter Visit Diagnoses Diagnosis Varicose veins of right lower extremity with other complications - Primary Varicose veins of left lower extremity with other complications Leg swelling Swelling of limb Protein C deficiency (HCC) Primary hypercoagulable state in this encounter
--- OUTSIDE RECORDS SUMMARY | 2018-07-07 18:35 | XMS REPORT | Encounter Summary ---
Author Author [facility] Organization [facility] Address Unknown Phone Unavailable Care Team Providers Care Television Engineering Teacher Name Role Phone Jay Rogers MD PCP Joshua Ku MD Unavailable Reason for Visit * Reason Comments Procedure left great saphenous endovenous ablation with left leg microphlebectomy Encounter Details Care Team Description Date Type Department Joshua Ku MD [address] [facility] [place] [address] Varicose veins of left lower extremity with other complications 07/04/2018 Procedure visit [facility] - [facility] [address] [place] [address] Social History Date Tobacco Use [...] Instructions * Patient Instructions* Maria Ines Sandoval - 07/04/2018 11:00 AM RN RECRUITMENT [facility] [address] [place], [place] [address] Instructions following Vein Procedure 1. If you [...] Joshua Ku MD was your doctor today. RECRUITMENT in this encounter Progress Notes * Joshua Ku MD - 07/04/2018 11:00 AM RN RECRUITMENT OPERATIVE REPORT/RADIOFREQUENCY ABLATION w/MP Date: 07/04/2018 Patient: Sujey Feliz : 1960 Diagnosis: Venous valvular insufficiency involving the left great saphenous vein producing symptomatic varicose bulging veins and refractory edema with lipodermatosclerosis. Operation(s): 1. Endovenous radiofrequency ablation of the left great saphenous vein requiring single site microaccess. 2. Microphlebectomy left leg greater than 21 , Total of 21 varicose veins in the medial, anterior thigh and medial calf. Surgeon: Joshua Ku MD M.D., F.BienvenidoS., R.P.V.I. Normalizer(s): Linsey Keith and Maria Ines Sandoval Patient Sales Representative Publications/ORA Medications: Xanax 1mg Emla cream - 30 grams Procedure start time: 1134 Procedure: Varicose clusters were then marked with [...] saphenous vein at the level of the mid thigh was punctured through the skin and using [...] below its 40-watt maximum power. Total treatment 4 cycles, 18 cm, Total Tumescent 300ml, Total 1% lidocaine [...] procedure instructions were given. Procedure end time: 1230 Joshua Ku MD Date: 07/04/2018 Problem List Items Addressed This Visit None RECRUITMENT in this encounter Plan of Treatment Not on fileas of this encounter Visit Diagnoses Diagnosis Varicose veins of left lower extremity with other complications in this encounter
--- OUTSIDE RECORDS SUMMARY | 2018-07-07 18:35 | XMS REPORT | Encounter Summary ---
Author Author [facility] Organization [facility] Address Unknown Phone Unavailable Care Team Providers Care Storage And Backup Administrator Name Role Phone Jay Rogers MD PCP Joshua Ku MD Unavailable Reason for Visit * Reason Comments General Question Encounter Details Care Team Description Date Type Department Joshua Ku MD [address] [facility] [place] [address] General Question 07/02/2018 Telephone [facility] Phys[facility] - [facility] [address] [place] [address] Social History Date Tobacco Use [...] encounter Miscellaneous Notes * Telephone Encounter - Ifeanyi Silveira - 07/02/2018 3:42 PM BREAKER OILER Answered all of patient's questions to satisfaction. She is ok to move to 2pm for procedures on 07/03 KER OILER * Telephone Encounter - Joseline Calabrese - 07/02/2018 1:56 PM BREAKER OILER Who is calling? Sujey Rojocher What is the patients need/concern? PATIENT CALLED AND STATED THAT SHE HAS QUESTIONS ABOUT INSTRUCTIONS THAT SHE WILL HAVE TO FOLLOW FOR HER UPCOMING VEIN PROCEDURE THAT IS SCHEDULE FOR TOMORROW (07/02/2018) PATIENT IS WANTING TO KNOW ABOUT COMPRESSION STOCKINGS, WHEN SHOULD SHE PUT HER CREAM ON HER LEG. PATIENT STATES THAT SHE DOES NOT HAVE HER COMPRESSION STOCKINGS AND WOULD LIKE TO KNOW WHY HER INSURANCE WILL NOT PAY FOR THEM. Which hospital was the patient seen at? [facility] Are there any other needs/concerns the patient has? no If yes, description of concern: Expected response time frame given to patient: I TOLD PATIENT THAT SHE WILL RECEIVE A CALL BACK AND THAT TYPICALLY IT IS WITHIN 24 TO 48 HOURS. PATIENT STATES THAT SHE STAYS 2 HOURS AWAY. PLEASE REACH OUT TO PATIENT BEFORE HER APPT TOMORROW (07/03/2018) Read back to patient before sending: yes Call Back phone number: [phone] KER OILER * Telephone Encounter - Roselyn Dudley - 07/02/2018 11:33 AM BREAKER OILER Pt is returning call to Annie Salas, Please call pt at [phone] KER OILER * Telephone Encounter - Annie Brooks, RN - 07/02/2018 11:25 AM BREAKER OILER LM for pt to return call KER OILER * Telephone Encounter - Andie Carrillo - 07/02/2018 8:14 AM BREAKER OILER Pt called wanting to know which leg was going to undergo surgery first. I told her the notes say the right leg is first and following day is the left leg. She then had questions about her medicine and said she has stronger pain killers than what was prescribed. She wanted to know if she could take stronger medicine. She would like a call back at [phone] KER OILER in this encounter Plan of Treatment Not on fileas of this encounter Visit Diagnoses Not on filein this encounter
--- OUTSIDE RECORDS SUMMARY | 2018-07-07 18:35 | XMS REPORT | Encounter Summary ---
Author Author [facility] Organization [facility] Address Unknown Phone Unavailable Care Team Providers Care Deli Slicer Name Role Phone Jay Rogers MD PCP Joshua Ku MD Unavailable Reason for Visit * Reason Comments General Question Encounter Details Care Team Description Date Type Department Joshua uK MD [address] [facility] [place] [address] General Question 07/07/2018 Telephone [facility] - [facility] [address] [place] [address] Social History Date Tobacco Use [...] encounter Miscellaneous Notes * Telephone Encounter - Roselyn Dudley - 07/07/2018 9:05 AM DIRECTOR SOFTWARE Who is calling? Sujey Feliz What is the patients need/concern? Pt was in the office for vein procedures on and 07/04/18. Pt has been running a low grade fever for the last 24 hours. Pt has not been able to get her compression socks on, she was unsuccessful over the weekend and actually sent herself into an asthma attack. Pt would now like to speak with a nurse. I communicated that our vein nurses were out today and she may not receive a call back. Pt is scheduled for an US on 07/08/18. Which hospital was the patient seen at? [facility] Are there any other needs/concerns the patient has? no If yes, description of concern: Expected response time frame given to patient: 24 hours Read back to patient before sending: yes Call Back phone number: [phone] CTOR SOFTWARE in this encounter Plan of Treatment Not on fileas of this encounter Visit Diagnoses Not on filein this encounter
--- OUTSIDE RECORDS SUMMARY | 2018-07-07 18:35 | XMS REPORT | Encounter Summary ---
Author Author [facility] Organization [facility] Address Unknown Phone Unavailable Care Team Providers Care Vp Research Name Role Phone Jay Rogers MD PCP Joshua Ku MD Unavailable Reason for Visit * Reason Comments Prior Authorization please precert Encounter Details Care Team Description Date Type Department Joshua Ku MD [address] [facility] [place] [address] Prior Authorization (please precert) 05/02/2018 Telephone [facility] Phys[facility] - [facility] [address] [place] [address] Social History Date Tobacco Use [...] * Telephone Encounter - Andie Carrillo - 05/08/2018 4:32 PM SEASONAL RETAIL MERCHANDISER REF IN CHART ONAL RETAIL MERCHANDISER * Telephone Encounter - Annie Brooks RN - 05/08/2018 11:10 AM SEASONAL RETAIL MERCHANDISER Pt has worn compression for greater than 3 months without relief of symptoms. Spoke with pt regarding Dr. Bass's recommendations. Pt understands and would like to proceed with procedures. She is ready for precert 1. dre right gsv, mp >20 2. dre left gsv, mp >20 ONAL RETAIL MERCHANDISER * Telephone Encounter - Annie Brooks RN - 05/02/2018 11:53 AM SEASONAL RETAIL MERCHANDISER ----- Message from Joshua Ku MD sent at 05/02/2018 11:53 AM SEASONAL RETAIL MERCHANDISER ----- 1. dre right gsv, mp >20 2. dre left gsv, mp >20 ONAL RETAIL MERCHANDISER in this encounter Plan of Treatment Not on fileas of this encounter Visit Diagnoses Not on filein this encounter
--- OUTSIDE RECORDS SUMMARY | 2018-07-07 18:35 | XMS REPORT | Encounter Summary ---
Author Author [facility] Organization [facility] Address Unknown Phone Unavailable Care Team Providers Care Manufacturing Worker Name Role Phone Jay Rogers MD PCP Joshua Ku MD Unavailable Reason for Visit * Reason Comments Varicose Vein Encounter Details Care Team Description Date Type Department Varicose veins of bilateral lower extremities with pain 04/29/2018 Clinical [facility] Support Physicians - [facility] [address] [place] [id number] Social History Date Tobacco Use Types [...] travel history available. as of this encounter Plan of Treatment Not on fileas of this encounter Procedures Comments Procedure Name Priority Date/Time Associated Diagnosis US DOPPLER VENOUS Routine 05/02/2018 Varicose veins of BILATERAL bilateral lower extremities with pain in this encounter Results * US DOPPLER VENOUS BILATERAL (05/02/2018) Narrative Performed At Performing Organization Address City/State/Zipcode Phone Number [facility] in this encounter Visit Diagnoses Diagnosis Varicose veins of bilateral lower extremities with pain in this encounter
--- OUTSIDE RECORDS SUMMARY | 2018-07-07 18:35 | XMS REPORT | Encounter Summary ---
Author Author [facility] Organization [facility] Address Unknown Phone Unavailable Care Team Providers Care Hay Stacker Name Role Phone Jay Rogers MD PCP Joshua Ku MD Unavailable Reason for Visit * Reason Comments Surgery Encounter Details Care Team Description Date Type Department Joshua Ku MD [address] [facility] [place] [address] 06/11/[address] [facility] Physicians - [facility] [address] [place] [address] Social History Date Tobacco Use [...]
--- OUTSIDE RECORDS SUMMARY | 2018-07-07 18:35 | XMS REPORT | Encounter Summary ---
Author Author [facility] Organization [facility] Address Unknown Phone Unavailable Care Team Providers Care Special Duty Nurse Name Role Phone Jay Rogers MD PCP Joshua Ku MD Unavailable Reason for Visit * Reason Comments General Question Pt wanted to know could she be re submitted to Insurance for vein procedure. Was advised maybe we didnt send all clinical info for it. She asked to recieve a call back to go over options. Encounter Details Care Team Description Date Type Department Joshua Ku MD [address] [facility] [place] [address] General Question (Pt wanted to know could she be re submitted to Insurance for vein procedure. Was advised maybe we didnt send all clinical info for it. She asked to recieve a call back to go over options.) 06/09/2018 Telephone [facility] Physicians - [facility] [address] [place] [address] Social History Date Tobacco Use [...] Notes * Telephone Encounter - Ifeanyi Silveira 06/13/2018 11:25 AM ROBOTICS TECHNICIAN R/S pt. For 07/03 and 07/04 TICS TECHNICIAN * Telephone Encounter - Roselyn Dudley - 06/13/2018 10:28 AM ROBOTICS TECHNICIAN Pt needs to reschedule her vein procedure due to not having transportation. If time is available for Dr. Oswald, pt is thinking of the following week. Please call [phone] TICS TECHNICIAN * Telephone Encounter - Stella Anderson - 06/09/2018 12:47 PM ROBOTICS TECHNICIAN Notes in original telephone encounter regarding matter. TICS TECHNICIAN * Telephone Encounter - Angela Roberson - 06/09/2018 12:09 PM ROBOTICS TECHNICIAN Pt wanted to know could she be re submitted to Insurance for vein procedure. Was advised maybe we didnt send all clinical info for it. She asked to recieve a call back to go over options. TICS TECHNICIAN in this encounter Plan of Treatment Not on fileas of this encounter Visit Diagnoses Not on filein this encounter
[2018-07-07] MEDS ORDERED: RT-ALBUTEROL SULF 2.5 MG/3 ML PRE-MIX VIAL INH STA (18:56)
[2018-07-07] MEDS ORDERED: RT-ALBUTEROL/IPRATROPIUM 3 ML (DUONEB) VIAL INH ONE (19:00)
--- NOTE | 2018-07-07 19:00 | NUR ---
ASSUMED CARE OF PT @ THIS TIME.
--- NOTE | 2018-07-07 19:01 | ED Respiratory ---
General Chief Complaint: Respiratory Problems Stated Complaint: SOB,CONGESTED COPD Nursing Triage Note: PT WITH HX OF COPD AND ASTHMA PRESENTS SOB, STARTED HAVING TROUBLE YESTERDAY. HOME BREATHING TX NOT HELPING TODAY. Source: patient Exam Limitations: no limitations History of Present Illness Date Seen by Provider: Jul 07, 2018 Time Seen by Provider: 18:48 Initial Comments The patient presents to ER by private shortness of breath wheezing cough and a low-grade temperature today. She did take some Tylenol this morning. She said the coughing is causing her headache is why she took the Tylenol. Her cough is nonproductive. She has a history of COPD on 2 L of oxygen at all times her DuoNeb times a day on average. She used 4 times in a row right before coming in. She just got off the [address] Wolf about 4 days ago. She was also on an antibiotic at that time. She denies nausea fever chest pain diarrhea constipation Allergies and Home Medications Allergies Coded Allergies: aspirin (Verified Allergy, Severe, ANAPHYLAXIS, 08/07/17) ibuprofen (Verified Allergy, Severe, ANAPHYLAXIS, 08/07/17) ketorolac (Verified Allergy, Severe, ANAPHYLAXIS, 08/07/17) tetanus and diphtheria toxoids (Unverified Allergy, Severe, ANAPHYLAXIS, ) aloe (Verified Allergy, Mild, RASH, 08/07/17) latex (Verified Allergy, Mild, RASH, 08/07/17) OCCASIONALLY IS IRRITATING SKIN scopolamine (Verified Allergy, Mild, 08/07/17) iodine (Verified Adverse Reaction, Unknown, 08/07/17) Patient states she got dizzy, diaphoretic and saw stars. Uncoded Allergies: ALOE VERA (Allergy, Unknown, 12/23/05) SILK SUTURES (Adverse Reaction, Unknown, BODY REJECTS SUTURES, 10/07/13) Home Medications Albuterol Sulfate 2.5 Mg/3 Ml Vial.neb, 2.5 MG NEB TID, (Reported) MIXES WITH IPRATROPIUM SOLUTION Albuterol Sulfate 8.5 Gm Hfa.aer.ad, 2 PUFF IH Q4H PRN for SHORTNESS OF BREATH, (Reported) Albuterol Sulfate 2.5 Mg/3 Ml Vial.neb, 2.5 MG NEB Q2H PRN for SHORTNESS OF BREATH, (Reported) Alprazolam 1 Mg Tablet, 1 MG PO Q8H PRN for ANXIETY, (Reported) Calcium Carbonate/Vitamin D3 1 Each Tablet, 1 TAB PO BID, (Reported) Fenofibrate Nanocrystallized 145 Mg Tablet, 145 MG PO DAILY, (Reported) Fluconazole 150 Mg Tablet, 150 MG PO DAILY Prescribed by: LEAH WOLF on 04/16/18741 Furosemide 80 Mg Tablet, 40 MG PO DAILY, (Reported) TAKES 1/2 (80MG) TABLET Hydrocodone/Acetaminophen 1 Each Tablet, 1 TAB PO Q6H PRN for PAIN-MODERATE, ( Reported) Hyoscyamine Sulfate 0.125 Mg Tab.rapdis, 0.125 MG SL Q6H PRN for ABDOMINAL PAIN, (Reported) Ipratropium [place] 0.2 Mg/1 Ml Solution, 1 VIAL NEB TID, (Reported) MIXES WITH ALBUTEROL SOLUTION Loratadine 10 Mg Tablet, 10 MG PO DAILY, (Reported) Montelukast Sodium 10 Mg Tablet, 10 MG PO HS, (Reported) Pantoprazole Sodium 40 Mg Tablet.dr, 40 MG PO DAILY, (Reported) Potassium Chloride 10 Meq Tablet.er, 20 MEQ PO BID, (Reported) TAKES 2 (10 MEQ) TABLETS Prednisone 20 Mg Tab, 20 MG PO DAILY Take 3 tabs(60mg)daily, decrease by 1/2 tab(10mg)daily. Prescribed by: LEAH WOLF on 04/16/18741 Promethazine HCl 25 Mg Tablet, 25 MG PO Q6H PRN for NAUSEA/VOMITING-2ND LINE, ( Reported) Warfarin Sodium 4 Mg Tablet, 4 MG PO 1800, (Reported) Patient Home Medication List Home Medication List Reviewed: Yes Review of Systems Review of Systems Constitutional: No chills, No diaphoresis, No fever; malaise EENTM: No ear discharge, No ear pain Respiratory: cough; No phlegm; short of breath; No stridor; wheezing Cardiovascular: No chest pain, No palpitations Gastrointestinal: No abdominal pain, No constipation, No diarrhea, No nausea, No vomiting 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: No discharge, No dysuria Past Hafxufi-Svpbfa-Nesbif Hx Patient Social History Alcohol Use: Denies Use Recreational Drug Use: No (15 yrs ago---IV drug user including Cocaine-CLEAN SINCE 1994) Drug of Choice: + IV COCAINE USE Smoking Status: Former Smoker Type Used: Cigarettes Former Smoker, Quit: Nov 17, 2000 2nd Hand Smoke Exposure: No Recent Foreign Travel: No Contact w/Someone Who Travel: No Recent Infectious Disease Expo: No Recent Hopitalizations: No Immunizations Up To Date Tetanus Booster (TDap): Unknown PED Vaccines UTD: No Date of Pneumonia Vaccine: Sep 05, 2012 Date of Influenza Vaccine: Mar 11, 2012 Seasonal Allergies Seasonal Allergies: Yes Past Medical History Surgeries: Yes Abdominal, Adenoidectomy, Section, Gallbladder, Hysterectomy, Orthopedic, Tonsillectomy, Vascular Surgery Respiratory: Yes (O2 AT HS 2-3L/NC AND PRN--NOCTURNAL HYPOXIA; ) Asthma, Pneumonia, Chronic Bronchitis, Pulmonary Embolism, COPD Currently Using CPAP: No Currently Using BIPAP: No Cardiac: Yes Chronic Edema/Swelling, Deep Vein Thrombosis, High Cholesterol, Hypertension, Peripheral Vascular Neurological: Yes Neuropathy 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 Disorders: No 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 Disorders: Denies OPTICAL INSTRUMENT SPECIALIST History: Hysterectomy, Menopausal Sexually Transmitted Disease: No HIV/AIDS: No 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: Yes Kidney Infection, Bladder Infection, Kidney Stones Gastrointestinal: Yes (MULTIPLE HERNIA REPAIRS; MULTIPLE EGD'S /COLONOSCOPIES/ POLYPECTOMIES) Abdominal Hernia, Gastroesophageal Reflux, Chronic Constipation, Chronic Diarrhea, Hepatitis, Polyps, Hiatal Hernia, Gall Bladder Disease, Irritable Bowel Musculoskeletal: Yes Arthritis Endocrine: Yes ("PRE-DIABETIC" ) HEENT: Yes (NASAL POLYPS) Cataract Loss of Vision: Denies Hearing Impairment: Denies Cancer: No Did You Recieve Any Treatments: No Psychosocial: Yes Anxiety Integumentary: Yes (CHRONIC VENOUS STASIS DERMATITIS AND ULCERS. ) Recent Skin Changes Blood Disorders: Yes (DVT'S/PE'S; PROBABLE PROTEIN C DEFICIENCY) Adverse Reaction/Blood Tranf: No (HAS HAD BLOOD WITH NO PROBLEMS) Family Medical History Alcoholism Alcoholism Arthritis Asthma Cancer Cancer of colon Cancer of mouth Cardiovascular disease Cataract Cataracts Chest pain Colon cancer Completed stroke Diabetes mellitus Family history: Allergy Family history: Arthritis Family history: Asthma Family history: Cardiovascular disease Family history: Coronary thrombosis Family history: Diabetes mellitus Family history: Gastrointestinal disease Family history: Hypertension Family history: Thyroid disorder Headache Hearing loss Heart disease History of - anemia History of - respiratory disease Hypercholesterolemia Hypercholesterolemia Infertile Malignant neoplasm of lung Myocardial infarction Myocardial infarction Psychotic disorder Respiratory disorder Stroke No Family History of: AIDS Abdominal aortic aneurysm Abdominal aortic aneurysm Augusta's disease Fernando's disease Alzheimer's disease Aphasia Aphasia Congenital disease Congenital heart disease Congenital heart disease Congestive heart failure Coronary thrombosis Cystic fibrosis Cystic fibrosis Deafness or hearing loss Dementia Dementia Drug abuse Dysphagia Dysphasia Family history: Alzheimer's disease Family history: Breast disease Family history: Glaucoma Family history: Osteoporosis Fibrocystic disease of breast Gastroenteritis Glaucoma Headache disorder Hereditary disease History of - disorder History of drug abuse Human immunodeficiency virus (HIV) seropositivity Infertility Kidney disease Kidney disease Neoplasm Not obtainable due to adoption Osteoporosis Parkinson's disease Parkinson's disease Prostate cancer Psychosocial problem Seizure disorder Seizure disorder Severe allergy Thyroid disease Tuberculosis Tuberculosis Visual disorder Visual impairment Cancer, COPD, Vascular Disease Physical Exam Vital Signs - First Documented 07/07/18 18:31 Temp 98.5 Pulse 126 Resp 24 B/P (MAP) 134/101 (112) Pulse Ox 93 O2 Delivery Nasal Cannula O2 Flow Rate 2.00 Capillary Refill : Less Than 3 Seconds Height: 5'5.00" Weight: 192lbs. 2.0oz. 87.564659qi; 31.0 BMI Method:Stated General Appearance: WD/WN, mild distress Eyes: Bilateral Eye Normal Inspection, Bilateral Eye PERRL, Bilateral Eye EOMI HEENT: PERRL/EOMI, normal ENT inspection, TMs normal, pharynx normal Neck: non-tender, full range of motion, supple, normal inspection Respiratory: chest non-tender, respiratory distress (Mild), accessory muscle use (Mild to moderate), wheezing, expiration (Prolonged), other (Tripoding but able to walk in) Cardiovascular: normal peripheral pulses, regular rate, rhythm, no edema Gastrointestinal: normal bowel sounds, non tender, soft Neurologic/Psychiatric: alert, normal mood/affect, oriented x 3 Skin: normal color, warm/dry, other (Well-healed soft nontender, nonindurated wounds from her recent procedure on her legs.) Progress/Results/Core Measures Suspected Sepsis Recent Fever Within 48 Hours: Yes Infection Criteria Present: None New/Unexplained Altered Menta: No Sepsis Screen: No Definite Risk SIRS Temperature:98.5 Pulse: 126 Respiratory Rate: 24 Laboratory Tests 07/07/18 18:35: White Blood Count 7.5 Blood Pressure 134 /101 Mean: 112 Laboratory Tests 07/07/18 18:35: Creatinine 0.65, Platelet Count 251, Total Bilirubin 0.4 Results/Orders Lab Results Laboratory Tests Test 07/07/18 18:35 07/07/18 19:14 07/07/18 20:20 Range/Units White Blood Count 7.5 4.3-11.0 10^3/uL Red Blood Count 4.40 4.35-5.85 10^6/uL Hemoglobin 12.8 11.5-16.0 G/DL Hematocrit 39 35-52 % Mean Corpuscular Volume 89 80-99 FL Mean Corpuscular Hemoglobin 29 25-34 PG Mean Corpuscular Hemoglobin Concent 33 32-36 G/DL Red Cell Distribution Width 14.9 H 10.0-14.5 % Platelet Count 251 130-400 10^3/uL Mean Platelet Volume 8.9 7.4-10.4 FL Neutrophils (%) (Auto) 52 42-75 % Lymphocytes (%) (Auto) 32 12-44 % Monocytes (%) (Auto) 10 0-12 % Eosinophils (%) (Auto) 6 0-10 % Basophils (%) (Auto) 0 0-10 % Neutrophils # (Auto) 3.9 1.8-7.8 X 10^3 Lymphocytes # (Auto) 2.4 1.0-4.0 X 10^3 Monocytes # (Auto) 0.7 0.0-1.0 X 10^3 Eosinophils # (Auto) 0.5 H 0.0-0.3 10^3/uL Basophils # (Auto) 0.0 0.0-0.1 10^3/uL Sodium Level 144 135-145 MMOL/L Potassium Level 3.4 L 3.6-5.0 MMOL/L Chloride Level 109 H 98-107 MMOL/L Carbon Dioxide Level 24 21-32 MMOL/L Anion Gap 11 5-14 MMOL/L Blood Urea Nitrogen 7 7-18 MG/DL Creatinine 0.65 0.60-1.30 MG/DL Estimat Glomerular Filtration Rate > 60 BUN/Creatinine Ratio 11 Glucose Level 112 H 70-105 MG/DL Calcium Level 9.3 8.5-10.1 MG/DL Corrected Calcium 9.5 8.5-10.1 MG/DL Total Bilirubin 0.4 0.1-1.0 MG/DL Aspartate Amino Transf (AST/SGOT) 20 5-34 U/L Alanine Aminotransferase (ALT/SGPT) 24 0-55 U/L Alkaline Phosphatase 76 40-136 U/L C-Reactive Protein High Sensitivity 0.29 0.00-0.50 MG/DL Total Protein 7.2 6.4-8.2 GM/DL Albumin 3.8 3.2-4.5 GM/DL Blood Gas Puncture Site R BRACH LEFT RADIAL Blood Gas Patient Temperature 98.5 98.5 Arterial Blood pH 7.35 L 7.41 7.37-7.43 Arterial Blood Partial Pressure CO2 50 H 39 35-45 MMHG Arterial Blood Partial Pressure O2 36 *L 76 L 79-93 MMHG Arterial Blood HCO3 27 24 23-27 MMOL/L Arterial Blood Total CO2 28.3 25.3 21.0-31.0 MMOL/L Arterial Blood Oxygen Saturation 58 L 94 94-100 % Arterial Blood Base Excess 1.7 0.0 -2.5-2.5 MMOL/L Papa Test YES-POS YES-POS Blood Gas Ventilator Setting NO NO Blood Gas Inspired Oxygen 4L 3L Micro Results Microbiology 07/07/18 Influenza Types A,B Antigen (JAIDA) - Final, Complete My Orders Orders - JULIO C MERINO Arterial Blood Gas (07/07/18 18:56) Cbc With Automated Diff (07/07/18 18:56) Comprehensive Metabolic Panel (07/07/18 18:56) Hs C Reactive Protein (07/07/18 18:56) Influenza A And B Antigens (07/07/18 18:56) Chest Pa/Lat (2 View) (07/07/18 18:56) Saline Lock/Iv-Start (07/07/18 18:56) Albuterol Pre-Mix Nebs (Rt) (Proventil (07/07/18 18:56) Albuterol/Ipra Inhalation Soln (Duoneb I (07/07/18 19:00) Svn Small Volume Nebulizer (07/07/18 18:56) Arterial Blood Gas (07/07/18 20:27) Arterial Blood Draw (07/07/18 20:20) Saline Lock/Iv-Start (07/07/18 21:26) Ns Iv 1000 Ml (Sodium Chloride 0.9%) (07/07/18 21:26) Ns Iv 1000 Ml (Sodium Chloride 0.9%) (07/07/18 21:26) Medications Given in ED Current Medications Medications Dose Ordered Sig/Nahomi Route Start Time Stop Time Status Last Admin Dose Admin Albuterol/ Ipratropium 3 ml ONCE ONCE INH 07/07/18 19:00 07/07/18 19:01 DC 07/07/18 19:23 3 ML Methylprednisolone Sodium Succinate 125 mg ONCE ONCE IVP 07/07/18 20:15 07/07/18 20:16 DC 07/07/18 20:16 125 MG Sodium Chloride 1,000 ml @ 0 mls/hr Q0M ONCE IV 07/07/18 21:26 07/07/18 21:27 DC 07/07/18 21:30 0 MLS/HR Vital Signs/I&O 07/07/18 07/07/18 18:31 19:23 Temp 98.5 Pulse 126 Resp 24 B/P (MAP) 134/101 (112) Pulse Ox 93 91 O2 Delivery Nasal Cannula OxyMask O2 Flow Rate 2.00 4.00 Capillary Refill : Less Than 3 Seconds Blood Pressure Mean: 112 Progress Note #1: Time: 19:01 Progress Note Probably tachyphylactic. We'll give her an hour-long breathing treatment get a x -ray and basic labs looking for the possibility of her steroids. On 2 L by nasal cannula after examination she is about 90-91% so we increased her back to her top and 3 L and she is in the 95-97% range. She gets short of breath with walking from the lobby to the examination room or even standing up to be examined for her recent surgical wounds. Progress Note #2: Time: 22:00 Progress Note The patient's blood pressure was systolic but she was sitting up moving around okay and asymptomatic otherwise. Her breathing is much improved after an hour- long she still had a few wheezes heard. She just completed a prolonged Steroid taper so we will give her 125 mg Solu-Medrol and put her on another steroid taper. We've offered her an observation stay but she does not seem very inclined to take it. Plan to give her some IV fluids and reevaluate her after that. The patient however after getting about half of her IV fluids or blood pressure has improved significantly she's now about 115 systolic. We have talked her about the risks, benefits and alternatives to an observation stay in case her blood pressure and this behavior for her COPD to worsen and she has agreed to stay overnight. Diagnostic Imaging Diagonstic Imaging: Xray Plain Films/CT/US/NM/MRI: chest (2v) Comments [facility] [place], [place] NAME: SUJEY FELIZ [facility] REC#: [id number] PT STATUS: REG ER : 1960 PHYSICIAN: JULIO C MERINO MD ADMIT DATE: 07/07/18/ER Draft Date of Exam:07/07/18 CHEST PA/LAT (2 VIEW) INDICATION: Cough. Shortness of air. Fever. COMPARISON: 06/20/2018 FINDINGS: Frontal and lateral views of the chest demonstrate normal heart size and pulmonary vascularity. The lungs are hyperinflated, but are otherwise clear. There are no signs of infiltrate, pleural effusions or pneumothoraces. The visualized osseous structures show no acute abnormalities. IMPRESSION: 1. No acute process. No signs of infiltrates, effusions or pneumothoraces. 2. Background of COPD. Dictated on workstation # [id number] Dict: 07/07/182045 Trans: 07/07/182046 [facility] [id number] Interpreted by: REN HAMMOND MD Electronically signed by: Reviewed: Reviewed by Me Departure Communication (Admissions) Time/Spoke to Admitting Phy: 22:05 Discussed case lab imaging findings with Dr. Wolf and he agrees to observe the patient. Impression Primary Impression: COPD exacerbation Disposition: ADMITTED INPATIENT Condition: Stable Admissions Decision to Admit Reason: Admit from ER (General) Decision to Admit/Date: Jul 07, 2018 Time/Decision to Admit Time: 22:05 Departure-Patient Inst. Referrals: LEAH WOLF MD (PCP/Family) Primary Care Physician JULIO C MERINO Jul 07, 2018 19:01
[2018-07-07 19:02] LABS: BASOPHILS % (AUTO) 0 % (0-10); EOSINOPHILS # (AUTO) 0.5 10^3/uL (0.0-0.3); EOSINOPHILS % (AUTO) 6 % (0-10); HEMATOCRIT 39 % (35-52); HEMOGLOBIN 12.8 G/DL (11.5-16.0); LYMPHOCYTES # (AUTO) 2.4 X 10^3 (1.0-4.0); LYMPHOCYTES % (AUTO) 32 % (12-44); MEAN CORPUSCULAR HEMOGLOBIN 29 PG (25-34); MEAN CORPUSCULAR HGB CONC 33 G/DL (32-36); MEAN CORPUSCULAR VOLUME 89 FL (80-99); MEAN PLATELET VOLUME 8.9 FL (7.4-10.4); MONOCYTES # (AUTO) 0.7 X 10^3 (0.0-1.0); MONOCYTES % (AUTO) 10 % (0-12); NEUTROPHILS # (AUTO) 3.9 X 10^3 (1.8-7.8); NEUTROPHILS % (AUTO) 52 % (42-75); PLATELET COUNT 251 10^3/uL (130-400); RED CELL DISTRIBUTION WIDTH 14.9 % (10.0-14.5); WHITE BLOOD COUNT 7.5 10^3/uL (4.3-11.0)
[2018-07-07 19:14] LABS: ALANINE AMINOTRANSFERASE 24 U/L (0-55); ALBUMIN 3.8 GM/DL (3.2-4.5); ALKALINE PHOSPHATASE 76 U/L (40-136); BILIRUBIN,TOTAL 0.4 MG/DL (0.1-1.0); BUN/CREATININE RATIO 11; CALCIUM 9.3 MG/DL (8.5-10.1); CARBON DIOXIDE 24 MMOL/L (21-32); CHLORIDE 109 MMOL/L (98-107); CREATININE SERUM 0.65 MG/DL (0.60-1.30); GFR ESTIMATED > 60; GLUCOSE 112 MG/DL (70-105); POTASSIUM 3.4 MMOL/L (3.6-5.0); SODIUM 144 MMOL/L (135-145); TOTAL PROTEIN 7.2 GM/DL (6.4-8.2)
[2018-07-07 19:51] LABS: ABG BASE EXCESS 1.7 MMOL/L (-2.5-2.5); ABG PCO2 50 MMHG (35-45); ABG PH 7.35 (7.37-7.43); ABG TCO2 28.3 MMOL/L (21.0-31.0)
[2018-07-07 19:52] LABS: ABG OXYGEN SATURATION 58 % (94-100)
[2018-07-07 19:53] LABS: ABG PO2 36 MMHG (79-93); ALLENS TEST YES-POS; INSPIRED O2 4L; PATIENT TEMP 98.5; VENTILATOR NO
[2018-07-07] MEDS ORDERED: methylPREDNISolone 125 MG (Solu-MEDROL) VIAL IVP ONE (20:15)
[2018-07-07 20:33] LABS: ABG OXYGEN SATURATION 94 % (94-100); ABG PCO2 39 MMHG (35-45); ABG PH 7.41 (7.37-7.43); ABG PO2 76 MMHG (79-93); ABG TCO2 25.3 MMOL/L (21.0-31.0); ALLENS TEST YES-POS; INSPIRED O2 3L; PATIENT TEMP 98.5; VENTILATOR NO
--- NOTE | 2018-07-07 20:48 | Diagnostic Imaging Report ---
INDICATION: Cough. Shortness of air. Fever. COMPARISON: 06/20/2018 FINDINGS: Frontal and lateral views of the chest demonstrate normal heart size and pulmonary vascularity. The lungs are hyperinflated, but are otherwise clear. There are no signs of infiltrate, pleural effusions or pneumothoraces. The visualized osseous structures show no acute abnormalities. IMPRESSION: 1. No acute process. No signs of infiltrates, effusions or pneumothoraces. 2. Background of COPD. Dictated by: Dictated on workstation # [id number]
[2018-07-07] MEDS ORDERED: NS IV 1000 ML 1,000 ML ONE (21:23)
[2018-07-07] MEDS ORDERED: NS IV 1000 ML 1,000 ML IV SCH (21:26)
[2018-07-07] MEDS ORDERED: NS IV 1000 ML 1,000 ML IV ONE (21:26)
--- OUTSIDE RECORDS SUMMARY | 2018-07-07 22:29 | XMS REPORT | Encounter Summary ---
Author Author [facility] Organization [facility] Address Unknown Phone Unavailable Care Team Providers Care Decaler Name Role Phone Jay Rogers MD PCP Joshua Ku MD Unavailable Reason for Visit * Reason Comments Leg Swelling bilateral legs Leg Pain bilateral legs Encounter Details Care Team Description Date Type Department Joshua Ku MD [address] [facility] [place] [address] Varicose veins of right lower extremity with other complications (Primary Dx); Varicose veins of left lower extremity with other complications; Leg swelling; Protein C deficiency (HCC) 04/29/2018 Office Visit [facility] Physicians - [facility] [address] [place] [address] Social History Date Tobacco Use [...] Taken Vital Sign Reading 04/29/2018 11:50 AM CHILD DEVELOPMENT PROFESSOR Blood Pressure 110/72 - Pulse - - Temperature - - Respiratory Rate - - Oxygen Saturation - - Inhaled Oxygen - Concentration 04/29/2018 11:50 AM CHILD DEVELOPMENT PROFESSOR Weight 83.9 kg (185 lb) 04/29/2018 11:50 AM CHILD DEVELOPMENT PROFESSOR Height 165.1 cm (5' 5") 04/29/2018 11:50 AM CHILD DEVELOPMENT PROFESSOR Body Mass Index 30.79 in this encounter Progress Notes * Joshua Ku MD - 04/29/2018 11:10 AM CHILD DEVELOPMENT PROFESSOR Date of Service: 04/29/2018 Chief Complaint Patient [...] Leg swelling 4. Protein C deficiency (HCC) D DEVELOPMENT PROFESSOR in this encounter Plan of Treatment Not on fileas of this encounter Visit Diagnoses Diagnosis Varicose veins of right lower extremity with other complications - Primary Varicose veins of left lower extremity with other complications Leg swelling Swelling of limb Protein C deficiency (HCC) Primary hypercoagulable state in this encounter
--- OUTSIDE RECORDS SUMMARY | 2018-07-07 22:29 | XMS REPORT | Encounter Summary ---
Author Author [facility] Organization [facility] Address Unknown Phone Unavailable Care Team Providers Care Music Manager Name Role Phone Jay Rogers MD PCP Joshua Ku MD Unavailable Reason for Visit * Reason Comments Procedure right great saphenous endovenous ablation with right leg microphlebectomy * Outpatient Surgery (Routine) Referred By Contact Referred To Contact Status Reason Specialty Diagnoses / Procedures Joshua Ku MD [address] [facility] [place] [address] Joshua Ku MD [address] [facility] [address] Authorized Vascular Surgery Diagnoses Varicose veins of right lower extremity with other complications Varicose veins of left lower extremity with other complications Other specified soft tissue disorders Other primary thrombophilia ([facility]) i83.891 i83.892 m79.89 d68.59 P rocedures NM ENDOVEN ABLTJ INCMPTNT VEIN XTR RF 1ST VEIN NM STAB PHLEBT VARICOSE VEINS 1 XTR 10-20 STAB INCS NM STAB PHLEBT VARICOSE VEINS 1 XTR > 20 INCS 1. dre right gsv, mp >20 2. dre left gsv, mp >20 Encounter Details Care Team Description Date Type Department Joshua Ku MD [address] [facility] [address] [phone] Varicose veins of right lower extremity with pain (Primary Dx) 07/03/2018 Procedure visit [facility] - [facility] [address] [place] [address] Social History Date Tobacco Use [...] Ines Sandoval Sherine - 07/03/2018 2:00 PM STATE PATROL OFFICER [facility] [place] [facility] [address] [place], [place] [address] Instructions following Vein Procedure 1. If you [...] Joshua Ku MD was your doctor today. E PATROL OFFICER in this encounter Progress Notes * Joshua Ku MD - 07/03/2018 2:00 PM STATE PATROL OFFICER OPERATIVE REPORT/RADIOFREQUENCY ABLATION w/MP Date: 07/03/2018 Patient: [...] Surgeon: Joshua Ku MD M.D., F.A.C.S., R.P.V.I. Quality Assurance Consultant(s): Annie Brooks R.N.-B.S.NCamryn and Maria Ines Sandoval Patient Machine Sneller/ORA Medications: Xanax 1mg Emla cream - 30 [...] right lower extremity with pain - Primary E PATROL OFFICER in this encounter Plan of Treatment Not on fileas of this encounter Visit Diagnoses Diagnosis Varicose veins of right lower extremity with pain - Primary Varicose veins of lower extremities with other complications in this encounter
--- OUTSIDE RECORDS SUMMARY | 2018-07-07 22:29 | XMS REPORT | Encounter Summary ---
Author Author [facility] Organization [facility] Address Unknown Phone Unavailable Care Team Providers Care Web Engineer Name Role Phone Jay Rogers MD PCP Joshua Ku MD Unavailable Reason for Visit * Reason Comments Procedure left great saphenous endovenous ablation with left leg microphlebectomy Encounter Details Care Team Description Date Type Department Joshua Ku MD [address] [facility] [place] [address] Varicose veins of left lower extremity with other complications 07/04/2018 Procedure visit [facility] - [facility] [address] [place] [address] Social History Date Tobacco Use [...] this encounter Patient Instructions * Patient Instructions* Mari aInes Sandoval - 07/04/2018 11:00 AM SALES REPRESENTATIVE [employer] [facility] [place] [facility] [address] [place], [place] [address] Instructions following Vein Procedure 1. [...] Joshua Ku MD was your doctor today. S REPRESENTATIVE RURAL POWER in this encounter Progress Notes * Joshua Ku MD - 07/04/2018 11:00 AM SALES REPRESENTATIVE [employer] OPERATIVE REPORT/RADIOFREQUENCY ABLATION w/MP Date: 07/04/2018 Patient: [...] Surgeon: Joshua Ku MD M.D., F.BienvenidoS., R.P.V.I. Intertype Operator(s): Linsey Keith and Maria Ines Sandoval Patient Convertible Top Installer/ORA Medications: Xanax 1mg Emla cream - 30 [...] Problem List Items Addressed This Visit None S REPRESENTATIVE RURAL POWER in this encounter Plan of Treatment Not on fileas of this encounter Visit Diagnoses Diagnosis Varicose veins of left lower extremity with other complications in this encounter
--- OUTSIDE RECORDS SUMMARY | 2018-07-07 22:29 | XMS REPORT | Clinical Summary ---
Author Author [facility] Organization [facility] Address Unknown Phone Unavailable Care Team Providers Care Restaurant Maintenance Technician Name Role Phone Jay Rogers MD PCP Joshua Ku MD Unavailable Source Comments Some departments are not documenting in the electronic medical record. If you do not see the information that you expected, contact Release of Information in the Health Information Management department at [phone] for further assistance in locating additional records.[facility] Allergies Comments Active Allergy Reactions Severity Noted [...] Taken Vital Sign [place] 04/29/2018 11:50 AM GRAVEL MACHINE OPERATOR Blood Pressure 110/72 - Pulse - - Temperature - - Respiratory Rate - - Oxygen Saturation - - Inhaled Oxygen - Concentration 04/29/2018 11:50 AM GRAVEL MACHINE OPERATOR Weight 83.9 kg (185 lb) 04/29/2018 11:50 AM GRAVEL MACHINE OPERATOR Height 165.1 cm (5' 5") 04/29/2018 11:50 AM GRAVEL MACHINE OPERATOR Body Mass Index 30.79 Plan of Treatment [...] Plan / Group AETNA MEDICAID AETNA xxxxxxxxxxx [facility] Advance Directives Patient has advance care planning documents on file. For more information, please contact: [facility] [address] [place] [address]
--- OUTSIDE RECORDS SUMMARY | 2018-07-07 22:29 | XMS REPORT | Encounter Summary ---
Author Author [facility] Organization [facility] Address Unknown Phone Unavailable Care Team Providers Care Meter Reading Clerk Name Role Phone Jay Rogers MD PCP Joshua Ku MD Unavailable Reason for Visit * Reason Comments Prior Authorization Prior Authorization Encounter Details Care Team Description Date Type Department Joshua Ku MD [address] [facility] [place] [address] Prior Authorization; Prior Authorization 06/03/2018 Telephone [facility] Physicians - [facility] [address] [place] [address] Social History Date Tobacco Use [...] - Stella Anderson - 06/10/2018 3:25 PM WARNING ANALYST Patient is going to be approved for ablation. CARGO HANDLER OVERTURNED THE DECISION OF MEDICAL POLICY. Referral in chart. ING ANALYST * Telephone Encounter - Stella Anderson - 06/10/2018 2:21 PM WARNING ANALYST Spoke with patient, she is faxing me a letter. I have also left a message for insurance rep Kesha. I need to speak with her. ING ANALYST * Telephone Encounter - Roselyn Dudley - 06/10/2018 9:18 AM WARNING ANALYST Who is calling? Sujey Feliz What is [...] before sending: yes Call Back phone number: [phone] ING ANALYST * Telephone Encounter - Joseline Calabrese - 06/09/2018 4:00 PM WARNING ANALYST Who is calling? Sujey Feliz What is [...] before sending: yes Call Back phone number: [phone] ING ANALYST * Telephone Encounter - Stella Anderson - 06/09/2018 12:46 PM WARNING ANALYST Spoke with patient, she called and stated [...] have MPs. But ablations will be OOP. ING ANALYST * Telephone Encounter - Doris Bowie RN - 06/04/2018 8:[address] Bass, Patient insurance doesn't cover ablations. [...] in care credit to cover her procedures. ING ANALYST * Telephone Encounter - Stella Anderson - 06/03/2018 3:30 PM WARNING ANALYST Patient was approved for MPs with Medicaid. Ablations are not a covered benefits. Pt will have to pay OOP for those. I have quoted her for ablations. She would like to speak with a nurse regarding how to proceed with procedures. Please call back at [phone] ING ANALYST in this encounter Plan of Treatment Not on fileas of this encounter Visit Diagnoses Not on filein this encounter
--- OUTSIDE RECORDS SUMMARY | 2018-07-07 22:29 | XMS REPORT | Encounter Summary ---
Author Author [facility] Organization [facility] Address Unknown Phone Unavailable Care Team Providers Care Manager Testing Name Role Phone Jay Rogers MD PCP Joshua Ku MD Unavailable Reason for Visit * Reason Comments General Question Encounter Details Care Team Description Date Type Department Joshua Ku MD [address] [facility] [place] [address] General Question 07/02/2018 Telephone [facility] Physicians - Vascular Surgery [facility] [address] [place] [address] Social History Date Tobacco Use [...] - Ifeanyi Silveira - 07/02/2018 3:42 PM GARDEN EQUIPMENT MECHANIC Answered all of patient's questions to satisfaction. She is ok to move to 2pm for procedures on 07/03 EN EQUIPMENT MECHANIC * Telephone Encounter - Joseline Calabrese - 07/02/2018 1:56 PM GARDEN EQUIPMENT MECHANIC Who is calling? Sujey Rojocher What is [...] before sending: yes Call Back phone number: [phone] EN EQUIPMENT MECHANIC * Telephone Encounter - Roselyn Dudley - 07/02/2018 11:33 AM GARDEN EQUIPMENT MECHANIC Pt is returning call to Annie Salas, Please call pt at [phone] EN EQUIPMENT MECHANIC * Telephone Encounter - Annie Brooks, RN - 07/02/2018 11:25 AM GARDEN EQUIPMENT MECHANIC LM for pt to return call EN EQUIPMENT MECHANIC * Telephone Encounter - Andie Carrillo - 07/02/2018 8:14 AM GARDEN EQUIPMENT MECHANIC Pt called wanting to know which leg [...] She would like a call back at [phone] EN EQUIPMENT MECHANIC in this encounter Plan of Treatment Not on fileas of this encounter Visit Diagnoses Not on filein this encounter
--- OUTSIDE RECORDS SUMMARY | 2018-07-07 22:29 | XMS REPORT | Encounter Summary ---
Author Author [facility] Organization [facility] Address Unknown Phone Unavailable Care Team Providers Care Qual Research Manager Name Role Phone Jay Rogers MD PCP Joshua Ku MD Unavailable Reason for Visit * Reason Comments Varicose Vein Encounter Details Care Team Description Date Type Department Varicose veins of bilateral lower extremities with pain 04/29/2018 Clinical [facility] Support Physicians - [facility] [address] [place] [address] Social History Date Tobacco Use Types [...]
--- OUTSIDE RECORDS SUMMARY | 2018-07-07 22:29 | XMS REPORT | Encounter Summary ---
Author Author [facility] Address Unknown Phone Unavailable Care Team Providers Care Stewardesses Teacher Name Role Phone Jay Rogers MD PCP Joshua Ku MD Unavailable Reason for Visit * Reason Comments Prior Authorization please precert Encounter Details Care Team Description Date Type Department Joshua Ku MD [address] [facility] [place] [address] Prior Authorization (please precert) 05/02/2018 Telephone [facility] - V[facility] Surgery [facility] [address] [place] [address] Social History Date Tobacco Use [...] - Andie Carrillo - 05/08/2018 4:32 PM DIAGNOSTIC TECHNOLOGIST REF IN CHART NOSTIC TECHNOLOGIST * Telephone Encounter - Annie Brooks RN - 05/08/2018 11:10 AM DIAGNOSTIC TECHNOLOGIST Pt has worn compression for greater than 3 months without relief of symptoms. Spoke with pt regarding Dr. Bass's recommendations. Pt understands and would like to proceed with procedures. She is ready for precert 1. dre right gsv, mp >20 2. dre left gsv, mp >20 NOSTIC TECHNOLOGIST * Telephone Encounter - Annie Brooks RN - 05/02/2018 11:53 AM DIAGNOSTIC TECHNOLOGIST ----- Message from Joshua Ku MD sent at 05/02/2018 11:53 AM DIAGNOSTIC TECHNOLOGIST ----- 1. dre right gsv, mp >20 2. dre left gsv, mp >20 NOSTIC TECHNOLOGIST in this encounter Plan of Treatment Not on fileas of this encounter Visit Diagnoses Not on filein this encounter
--- OUTSIDE RECORDS SUMMARY | 2018-07-07 22:29 | XMS REPORT | Encounter Summary ---
Author Author [facility] Organization [facility] Address Unknown Phone Unavailable Care Team Providers Care Director Of Environmental Services Name Role Phone Jay Rogers MD PCP Joshua Ku MD Unavailable Encounter Details Care Team Description Date Type Department Aide Oswald MD [address] [facility] [place] [address] 05/26/2018 Telephone [facility] Physicians - V[facility] [address] [place] [address] Social History Date Tobacco Use [...] - Stella Anderson - 05/29/2018 8:32 AM POT RELINER They just don't, that's their policy. RELINER * Telephone Encounter - Andie Carrillo - 05/29/2018 8:09 AM POT RELINER I am waiting for a fax or letter to specify. I am not sure about the MP's. Would you suggest I call about it? Why does Medicaid not approve ablations? RELINER * Telephone Encounter - Stella Anderson - 05/28/2018 11:34 AM POT RELINER This is pretty typical with Medicaid. Did our 56592/34518 codes get approved? RELINER * Telephone Encounter - Clarisa Hutchinson - 05/26/2018 3:36 PM POT RELINER AETNA INFORMING CPT 45957 IS NOT AUTHORIZED [place] MEDICAID - CALL REP MARTHA AT [phone] FOR MORE INFORMATION BEFORE THE MED DIRECTOR HAS TO REVIEW RELINER in this encounter Plan of Treatment Not on fileas of this encounter Visit Diagnoses Not on filein this encounter
--- OUTSIDE RECORDS SUMMARY | 2018-07-07 22:29 | XMS REPORT | Encounter Summary ---
Author Author [facility] Organization [facility] Address Unknown Phone Unavailable Care Team Providers Care District Representative Name Role Phone Jay Rogers MD PCP [...] Date Type Department Joshua Ku MD [address] [facility] [place] [address] General Question (Pt wanted to know could she be re submitted to Insurance for vein procedure. Was advised maybe we didnt send all clinical info for it. She asked to recieve a call back to go over options.) 06/09/2018 Telephone [facility] - [facility] [address] [place] [address] Social History Date Tobacco Use [...] Encounter - Ifeanyi Silveira 06/13/2018 11:25 AM DIESEL MECHANIC FARM R/S pt. For 07/03 and 07/04 EL MECHANIC FARM * Telephone Encounter - Roselyn Dudley - 06/13/2018 10:28 AM DIESEL MECHANIC FARM Pt needs to reschedule her vein procedure due to not having transportation. If time is available for Dr. Oswald, pt is thinking of the following week. Please call [phone] EL MECHANIC FARM * Telephone Encounter - Stella Anderson - 06/09/2018 12:47 PM DIESEL MECHANIC FARM Notes in original telephone encounter regarding matter. EL MECHANIC FARM * Telephone Encounter - Angela Roberson - 06/09/2018 12:09 PM DIESEL MECHANIC FARM Pt wanted to know could she be re submitted to Insurance for vein procedure. Was advised maybe we didnt send all clinical info for it. She asked to recieve a call back to go over options. EL MECHANIC FARM in this encounter Plan of Treatment Not on fileas of this encounter Visit Diagnoses Not on filein this encounter
--- OUTSIDE RECORDS SUMMARY | 2018-07-07 22:29 | XMS REPORT | Encounter Summary ---
Author Author [facility] Organization [facility] Address Unknown Phone Unavailable Care Team Providers Care Mobile Health Vehicle Operator Name Role Phone Jay Rogers MD PCP Joshua Ku MD Unavailable Reason for Visit * Reason Comments General Question Encounter Details Care Team Description Date Type Department Joshua Ku MD [address] [facility] [place] [address] General Question 07/07/2018 Telephone [facility] Phys[facility] - [facility] Surgery [facility] [address] [place] [address] Social History Date Tobacco Use [...] - Roselyn Dudley - 07/07/2018 9:05 AM GEAR LAPPER Who is calling? Sujey Feliz What is [...] hospital was the patient seen at? [facility] Are there any other needs/concerns the patient has? no If yes, description of concern: Expected response time frame given to patient: 24 hours Read back to patient before sending: yes Call Back phone number: [phone] LAPPER in this encounter Plan of Treatment Not on fileas of this encounter Visit Diagnoses Not on filein this encounter
--- OUTSIDE RECORDS SUMMARY | 2018-07-07 22:29 | XMS REPORT | Encounter Summary ---
Author Author [facility] Organization [facility] Address Unknown Phone Unavailable Care Team Providers Care Physics Instructor Name Role Phone Jay Rogers MD PCP Joshua Ku MD Unavailable Reason for Visit * Reason Comments Surgery Encounter Details Care Team Description Date Type Department Joshua Ku MD [address] [facility] [place] [address] 06/11/2018 Refill [facility] Phys[facility] - [facility] [address] [place] [address] Social History Date Tobacco Use [...]
--- NOTE | 2018-07-07 23:15 | NUR ---
SUJEY FELIZ admitted to room 415-1, with an admitting diagnosis of COPD, SOB, RESP DISTRESS, SCUTE ON CHRONIC HYPOXIA, on 07/07/18 from ED via WC, accompanied by STAFF.SUJEY FELIZ introduced to surroundings, call light, bed controls, phone, TV, temperature control, lights, meal times, smoking policy, visitor policy, side rail policy, bathrooms and showers. Patient Rights given to patient in the handbook. SUJEY FELIZ verbalizes understanding that [facility] is not responsible for the loss or damage to any personal effects or valuables that are kept in the patients possession during their hospitalization. PLANS OF CARE DISCUSSED WITH PT AND VERBALIZES UNDERSTANDING. SUJEY FELIZ verbalizes understanding of Interdisciplinary Patient Education. Patient and/or family were informed about the Rapid Response Team and its purpose.
[2018-07-07 23:33] VITALS: BP 125/72
[2018-07-07] MEDS ORDERED: ONDANSETRON 4 MG/2 ML (SDV) Z0FRAN IV PRN (23:45)
[2018-07-07] MEDS ORDERED: ALPRAZolam 1 MG (XANAX) TAB PO PRN (23:45)
[2018-07-07] MEDS ORDERED: CALCIUM CARBONATE 500 MG (TUMS) TAB.CHEW PO PRN (23:45)
[2018-07-07] MEDS ORDERED: predniSONE 20 MG TAB PO SCH (23:45)
[2018-07-07 23:51] VITALS: BP 125/72
[2018-07-08] MEDS: NS IV 1000 ML 1,000 ML IV SCH ×2 (00:38→13:30)
[2018-07-08 02:38] VITALS: BP 125/72
[2018-07-08] MEDS ORDERED: RT-ALBUTEROL/IPRATROPIUM 3 ML (DUONEB) VIAL INH PRN (02:45)
[2018-07-08 04:00] VITALS: BP 117/71
[2018-07-08 06:03] LABS: BASOPHILS % (AUTO) 0 % (0-10); EOSINOPHILS % (AUTO) 0 % (0-10); HEMATOCRIT 38 % (35-52); HEMOGLOBIN 12.1 G/DL (11.5-16.0); LYMPHOCYTES # (AUTO) 0.6 X 10^3 (1.0-4.0); LYMPHOCYTES % (AUTO) 14 % (12-44); MEAN CORPUSCULAR HEMOGLOBIN 29 PG (25-34); MEAN CORPUSCULAR HGB CONC 32 G/DL (32-36); MEAN CORPUSCULAR VOLUME 91 FL (80-99); MONOCYTES # (AUTO) 0.1 X 10^3 (0.0-1.0); MONOCYTES % (AUTO) 3 % (0-12); NEUTROPHILS # (AUTO) 3.4 X 10^3 (1.8-7.8); NEUTROPHILS % (AUTO) 83 % (42-75); PLATELET COUNT 244 10^3/uL (130-400); RED CELL DISTRIBUTION WIDTH 14.9 % (10.0-14.5); WHITE BLOOD COUNT 4.1 10^3/uL (4.3-11.0)
[2018-07-08 06:19] LABS: ALANINE AMINOTRANSFERASE 22 U/L (0-55); ALBUMIN 3.7 GM/DL (3.2-4.5); ALKALINE PHOSPHATASE 69 U/L (40-136); BILIRUBIN,TOTAL 0.3 MG/DL (0.1-1.0); BUN/CREATININE RATIO 16; CALCIUM 8.8 MG/DL (8.5-10.1); CARBON DIOXIDE 19 MMOL/L (21-32); CHLORIDE 110 MMOL/L (98-107); CREATININE SERUM 0.61 MG/DL (0.60-1.30); GFR ESTIMATED > 60; GLUCOSE 151 MG/DL (70-105); SODIUM 141 MMOL/L (135-145)
--- NOTE | 2018-07-08 07:12 | History & Physicial ---
History of Present Illness History of Present Illness Reason for visit/HPI 57-year-old female presents to [facility] emergency department during the evening of July 07, 2018 with wheezing as well as a low-grade fever. She apparently had been taking her home albuterol treatments during the evening consecutively to try to improve her wheezing but it just didn't happen. She has known COPD and just recently finished 9 day tapering of prednisone. Also at that time she had completed a course of cephalexin. Currently there is no chest pain. She also recently last week had vein surgery to her lower extremities. She does report she was stressing about this quite a bit. Date of Admission Jul 07, 2018 at 21:15 Date Seen by a Provider: Jul 08, 2018 Time Seen by a Provider: 07:20 I consulted on this patient on 07/08/18 07:11 Attending Physician Jay Wolf MD Admitting Physician Jay Wolf MD Consult Allergies and Home Medications Allergies Coded Allergies: aspirin (Verified Allergy, Severe, ANAPHYLAXIS, 08/07/17) ibuprofen (Verified Allergy, Severe, ANAPHYLAXIS, 08/07/17) ketorolac (Verified Allergy, Severe, ANAPHYLAXIS, 08/07/17) tetanus and diphtheria toxoids (Unverified Allergy, Severe, ANAPHYLAXIS, ) aloe (Verified Allergy, Mild, RASH, 08/07/17) latex (Verified Allergy, Mild, RASH, 08/07/17) OCCASIONALLY IS IRRITATING SKIN scopolamine (Verified Allergy, Mild, 08/07/17) iodine (Verified Adverse Reaction, Unknown, 08/07/17) Patient states she got dizzy, diaphoretic and saw stars. Uncoded Allergies: ALOE VERA (Allergy, Unknown, 12/23/05) SILK SUTURES (Adverse Reaction, Unknown, BODY REJECTS SUTURES, 10/07/13) Home Medications Albuterol Sulfate 2.5 Mg/3 Ml Vial.neb, 2.5 MG NEB TID, (Reported) MIXES WITH IPRATROPIUM SOLUTION Albuterol Sulfate 8.5 Gm Hfa.aer.ad, 2 PUFF IH Q4H PRN for SHORTNESS OF BREATH, (Reported) Albuterol Sulfate 2.5 Mg/3 Ml Vial.neb, 2.5 MG NEB Q2H PRN for SHORTNESS OF BREATH, (Reported) Alprazolam 1 Mg Tablet, 1 MG PO Q8H PRN for ANXIETY, (Reported) Calcium Carbonate/Vitamin D3 1 Each Tablet, 1 TAB PO BID, (Reported) Fenofibrate Nanocrystallized 145 Mg Tablet, 145 MG PO DAILY, (Reported) Fluconazole 150 Mg Tablet, 150 MG PO DAILY Prescribed by: JAY WOLF on 04/16/18 0742 Furosemide 80 Mg Tablet, 40 MG PO DAILY, (Reported) TAKES 1/2 (80MG) TABLET Hydrocodone/Acetaminophen 1 Each Tablet, 1 TAB PO Q6H PRN for PAIN-MODERATE, ( Reported) Hyoscyamine Sulfate 0.125 Mg Tab.rapdis, 0.125 MG SL Q6H PRN for ABDOMINAL PAIN, (Reported) Ipratropium [place] 0.2 Mg/1 Ml Solution, 1 VIAL NEB TID, (Reported) MIXES WITH ALBUTEROL SOLUTION Loratadine 10 Mg Tablet, 10 MG PO DAILY, (Reported) Montelukast Sodium 10 Mg Tablet, 10 MG PO HS, (Reported) Pantoprazole Sodium 40 Mg Tablet.dr, 40 MG PO DAILY, (Reported) Potassium Chloride 10 Meq Tablet.er, 20 MEQ PO BID, (Reported) TAKES 2 (10 MEQ) TABLETS Prednisone 20 Mg Tab, 20 MG PO DAILY Take 3 tabs(60mg)daily, decrease by 1/2 tab(10mg)daily. Prescribed by: JAY WOLF on 04/16/1842 Promethazine HCl 25 Mg Tablet, 25 MG PO Q6H PRN for NAUSEA/VOMITING-2ND LINE, ( Reported) Warfarin Sodium 4 Mg Tablet, 4 MG PO 1800, (Reported) Patient Home Medication List Home Medication List Reviewed: Yes Past Ubhrtxd-Avfggw-Ockyhq Hx Patient Social History Alcohol Use: Denies Use Recreational Drug Use: No (15 yrs ago---IV drug user including Cocaine-CLEAN SINCE 1994) Drug of Choice: + IV COCAINE USE Smoking Status: Former Smoker Former Smoker, Quit: Nov 17, 2000 Type Used: Cigarettes 2nd Hand Smoke Exposure: No Recent Foreign Travel: No Contact w/other who traveled: No Recent Hopitalizations: No Recent Infectious Disease Expo: No Immunizations Up To Date Tetanus Booster (TDap): Unknown Pediatric: No Date of Pneumonia Vaccine: Jul 08, 2012 Date of Influenza Vaccine: Mar 11, 2012 Seasonal Allergies Seasonal Allergies: Yes Surgeries Yes Abdominal, Adenoidectomy, Section, Gallbladder, Hysterectomy, Orthopedic, Tonsillectomy, Vascular Surgery Respiratory Yes (O2 AT HS 2-3L/NC AND PRN--NOCTURNAL HYPOXIA; ) Currently Using CPAP: No Currently Using BIPAP: No Cardiovascular Yes Chronic Edema/Swelling, Deep Vein Thrombosis, High Cholesterol, Hypertension, Peripheral Vascular Neurological Yes Neuropathy 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 System Hx 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 Disorders: No Sexually Transmitted Disease: No HIV/AIDS: No 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 Disorders: Denies REIMBURSEMENT CONSULTANT History: Hysterectomy, Menopausal 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 Yes Kidney Infection, Bladder Infection, Kidney Stones Gastrointestinal Yes (MULTIPLE HERNIA REPAIRS; MULTIPLE EGD'S /COLONOSCOPIES/POLYPECTOMIES) Abdominal Hernia, Gastroesophageal Reflux, Chronic Constipation, Chronic Diarrhea, Hepatitis, Polyps, Hiatal Hernia, Gall Bladder Disease, Irritable Bowel Musculoskeletal Yes Arthritis Endocrine History of Endocrine Disorders: Yes ("PRE-DIABETIC" ) HEENT History of HEENT Disorders: Yes (NASAL POLYPS) HEENT Disorders: Cataract Loss of Vision: Denies Hearing Impairment: Denies Cancer No Did You Recieve Any Treatments: No Psychosocial History of Psychiatric Problem: Yes Behavioral Health Disorders: Anxiety Integumentary History of Skin or Integumenta: Yes (CHRONIC VENOUS STASIS DERMATITIS AND ULCERS. ) Skin/Integumentary Disorders: Recent Skin Changes Blood Transfusions History of Blood Disorders: Yes (DVT'S/PE'S; PROBABLE PROTEIN C DEFICIENCY) Adverse Reaction to a Blood Tr: No (HAS HAD BLOOD WITH NO PROBLEMS) Family Medical History Significant Family History: Cancer, COPD, Vascular Disease Family Hx: Alcoholism Alcoholism Arthritis Asthma Cancer Cancer of colon Cancer of mouth Cardiovascular disease Cataract Cataracts Chest pain Colon cancer Completed stroke Diabetes mellitus Family history: Allergy Family history: Arthritis Family history: Asthma Family history: Cardiovascular disease Family history: Coronary thrombosis Family history: Diabetes mellitus Family history: Gastrointestinal disease Family history: Hypertension Family history: Thyroid disorder Headache Hearing loss Heart disease History of - anemia History of - respiratory disease Hypercholesterolemia Hypercholesterolemia Infertile Malignant neoplasm of lung Myocardial infarction Myocardial infarction Psychotic disorder Respiratory disorder Stroke No Family History of: AIDS Abdominal aortic aneurysm Abdominal aortic aneurysm Sharkey's disease Sharkey's disease Alzheimer's disease Aphasia Aphasia Congenital disease Congenital heart disease Congenital heart disease Congestive heart failure Coronary thrombosis Cystic fibrosis Cystic fibrosis Deafness or hearing loss Dementia Dementia Drug abuse Dysphagia Dysphasia Family history: Alzheimer's disease Family history: Breast disease Family history: Glaucoma Family history: Osteoporosis Fibrocystic disease of breast Gastroenteritis Glaucoma Headache disorder Hereditary disease History of - disorder History of drug abuse Human immunodeficiency virus (HIV) seropositivity Infertility Kidney disease Kidney disease Neoplasm Not obtainable due to adoption Osteoporosis Parkinson's disease Parkinson's disease Prostate cancer Psychosocial problem Seizure disorder Seizure disorder Severe allergy Thyroid disease Tuberculosis Tuberculosis Visual disorder Visual impairment Review of Systems Constitutional: see HPI Physical Exam Vital Signs Vital Signs - First Documented 07/07/18 18:31 Temp 98.5 Pulse 126 Resp 24 B/P (MAP) 134/101 (112) Pulse Ox 93 O2 Delivery Nasal Cannula O2 Flow Rate 2.00 Capillary Refill : Less Than 3 Seconds Height, Weight, BMI Height: 5'5.00" Weight: 197lbs. 0.0oz. 89.379081zw; 32.8 BMI Method:Stated General Appearance: No Apparent Distress, Mild Distress (With her oxygen off) Eyes: Bilateral Eye Normal Inspection HEENT: Moist Mucous Membranes Respiratory: Respiratory Distress (Mild in the morning of July 08), Wheezing (Scattered throughout) Cardiovascular: Regular Rate, Rhythm Gastrointestinal: Soft Extremity: Other (Her swelling is markedly decreased from previous. She does have stitches in place at the thighs) Comments NAME: SUJEY FELIZ [facility] REC#: [id number] PT STATUS: REG ER : 1960 PHYSICIAN: JULIO C MERINO MD ADMIT DATE: 07/07/18/ER Draft Date of Exam:07/07/18 CHEST PA/LAT (2 VIEW) INDICATION: Cough. Shortness of air. Fever. COMPARISON: 06/20/2018 FINDINGS: Frontal and lateral views of the chest demonstrate normal heart size and pulmonary vascularity. The lungs are hyperinflated, but are otherwise clear. There are no signs of infiltrate, pleural effusions or pneumothoraces. The visualized osseous structures show no acute abnormalities. IMPRESSION: 1. No acute process. No signs of infiltrates, effusions or pneumothoraces. 2. Background of COPD. Dictated on workstation # [id number] Dict: 07/07/182045 Trans: 07/07/182046 KENYA [id number] Interpreted by: REN HAMMOND MD Electronically signed by: Assessment/Plan Assessment and Plan 1. COPD exacerbation -Patient admitted for further IV Solu-Medrol 80 mg IV every 6 hours -Respiratory therapy for albuterol breathing treatments -Oxygen supplementation by nasal cannula to keep saturations in the mid 90 percent's or greater 2. Status post vein surgery to the lower extremities one week Admission Diagnosis Admission Status: Observation Reason for Inpatient Admission: Further IV steroids as well as oxygen supplementation Clinical Quality Measures DVT/VTE Risk/Contraindication: Risk Factor Score Per Nursin RFS Level Per Nursing on Admit: 3=High JAY WOLF MD Jul 08, 2018 07:12
[2018-07-08] MEDS: RT-BUDESONIDE NEBS 0.5 MG/2ML (PULMICORT) AMP INH SCH ×3 (07:21→19:05)
[2018-07-08] MEDS: RT-ALBUTEROL/IPRATROPIUM 3 ML (DUONEB) VIAL INH SCH ×5 (07:21→23:05)
[2018-07-08 08:00] VITALS: BP 140/76
--- NOTE | 2018-07-08 08:27 | NUR ---
PATIENT HAD A LIST OF HER MEDICATIONS AND WE WENT OVER THE EXT MED HX. SHE VERIFIED HOW SHE TAKES EACH MEDICATION. SHE STATES SHE IS NO LONGER TAKING TRICOR, DEXILANT, OR DILTIAZEM.
[2018-07-08] MEDS: methylPREDNISolone 40 MG/ML (Solu-MEDROL) VIAL IV SCH ×3 (09:30→18:17)
[2018-07-08] MEDS: PANTOPRAZOLE 40 MG (PROTONIX) TAB PO SCH (09:30)
[2018-07-08] MEDS: MONTELUKAST 10 MG (SINGULAIR) TAB PO SCH (09:30)
[2018-07-08] MEDS: LORATADINE (CLARITIN) 10 MG TAB PO SCH (09:30)
[2018-07-08 12:00] VITALS: BP 114/75
[2018-07-08 16:03] VITALS: BP 119/71
[2018-07-08] MEDS ORDERED: warFARin 2 MG (COUMADIN) TAB PO SCH (18:00)
[2018-07-08 20:24] VITALS: BP 136/75
[2018-07-09] VITALS: BP 129/76
[2018-07-09] MEDS: NS IV 1000 ML 1,000 ML IV SCH (00:15)
[2018-07-09] MEDS: methylPREDNISolone 40 MG/ML (Solu-MEDROL) VIAL IV SCH ×3 (00:19→11:55)
[2018-07-09] MEDS: RT-ALBUTEROL/IPRATROPIUM 3 ML (DUONEB) VIAL INH SCH ×3 (02:36→11:02)
[2018-07-09] MEDS ORDERED: ACETAMINOPHEN 500 MG TAB (TYLENOL) PO PRN (05:15)
[2018-07-09] MEDS: RT-BUDESONIDE NEBS 0.5 MG/2ML (PULMICORT) AMP INH SCH (07:20)
[2018-07-09 08:00] VITALS: BP 129/86
[2018-07-09] MEDS: LORATADINE (CLARITIN) 10 MG TAB PO SCH (08:44)
[2018-07-09] MEDS: MONTELUKAST 10 MG (SINGULAIR) TAB PO SCH (08:44)
[2018-07-09] MEDS: PANTOPRAZOLE 40 MG (PROTONIX) TAB PO SCH (08:44)
[2018-07-09] MEDS ORDERED: PRD20T PO (12:58)
--- NOTE | 2018-07-09 13:00 | Discharge Inst-Simple/Standard ---
Discharge Inst-Standard Discharge Medications New, Converted or Re-Newed RX: Transmitted to Pharmacy Patient Instructions/Follow Up Plan of Care/Instructions/FU: Dr. Wolf first part of the week, July 14 or Activity as Tolerated: Yes Discharge Diet: Low Fat/Low Cholesterol Return to The Hospital For: Worsening shortness of breath, fever not resolved with Tylenol LEAH WOLF MD Jul 09, 2018 13:00
--- NOTE | 2018-07-09 13:04 | Discharge Summary ---
Diagnosis/Chief Complaint Date of Admission Jul 07, 2018 at 21:15 Date of Discharge July 09, 2018 Discharge Date: Jul 09, 2018 Discharge Time: 13:00 Admission Diagnosis Admission Diagnosis 1. COPD exacerbation 2. Hypoxemia secondary to number 1 Discharge Diagnosis 1. COPD exacerbation--severe 2. Hypoxemia secondary to number 1 Reason Hospital Visit 57-year-old female presents to [facility] emergency department during the evening of July 07, 2018 with wheezing as well as a low-grade fever. She apparently had been taking her home albuterol treatments during the evening consecutively to try to improve her wheezing but it just didn't happen. She has known COPD and just recently finished 9 day tapering of prednisone. Also at that time she had completed a course of cephalexin. Currently there is no chest pain. She also recently last week had vein surgery to her lower extremities. She does report she was stressing about this quite a bit. Discharge Summary Hospital Course Was the Problem List Reviewed?: Yes Hospital Course Patient was admitted on July 07, 2018 following COPD exacerbation. She was given hour long breathing treatment in ED and had received Solu-Medrol 125 mg without improvement of her expiratory wheezing or shortness of breath. She also remained hypoxic. She was ultimately added admitted for further Solu- Medrol treatments and she received 80 mg IV every 6 hours. She was also given nasal cannula oxygen to keep her saturations in the mid 90 percentile. Respiratory therapy also gave patient breathing treatments albuterol every 4-6 hours. Patient was noted during the evening of July 08 to still have significant tightness with her breathing and her saturations were in the lower 90 percent. By the morning of 2018 her lungs were noted to be with very mild expiratory wheezing and she was breathing more normal. Her saturations went upper 90 percentile at this time. She ultimately had IV discontinued and released to home with all questions answered. Labs Laboratory Tests 07/07/18 18:35: Red Cell Distribution Width 14.9H, Eosinophils # (Auto) 0.5H, Potassium Level 3.4L, Chloride Level 109H, Glucose Level 112H 07/07/18 19:14: Arterial Blood pH 7.35L, Arterial Blood Partial Pressure CO2 50H, Arterial Blood Partial Pressure O2 36*L, Arterial Blood Oxygen Saturation 58L 07/07/18 20:20: Arterial Blood Partial Pressure O2 76L 07/08/18 05:50: Red Cell Distribution Width 14.9H, Chloride Level 110H, Glucose Level 151H, White Blood Count 4.1L, Red Blood Count 4.21L, Neutrophils (%) (Auto) 83H, Lymphocytes # (Auto) 0.6L, Carbon Dioxide Level 19L Procedures None. Discharge Physical Examination Allergies: Coded Allergies: aspirin (Verified Allergy, Severe, ANAPHYLAXIS, 08/07/17) ibuprofen (Verified Allergy, Severe, ANAPHYLAXIS, 08/07/17) ketorolac (Verified Allergy, Severe, ANAPHYLAXIS, 08/07/17) tetanus and diphtheria toxoids (Unverified Allergy, Severe, ANAPHYLAXIS, ) aloe (Verified Allergy, Mild, RASH, 08/07/17) latex (Verified Allergy, Mild, RASH, 08/07/17) OCCASIONALLY IS IRRITATING SKIN scopolamine (Verified Allergy, Mild, 08/07/17) iodine (Verified Adverse Reaction, Unknown, 08/07/17) Patient states she got dizzy, diaphoretic and saw stars. Uncoded Allergies: ALOE VERA (Allergy, Unknown, 12/23/05) SILK SUTURES (Adverse Reaction, Unknown, BODY REJECTS SUTURES, 10/07/13) Vitals & I&Os Vital Signs Date Time Temp Pulse Resp B/P (MAP) Pulse Ox O2 Delivery O2 Flow Rate FiO2 07/09/18 11:03 96 Nasal Cannula 4.00 07/09/18 08:00 99.1 132 22 129/86 (100) General Appearance: Alert, No Acute Distress Respiratory: Clear to Auscultation (With slight expiratory wheeze) Cardiovascular: Regular Rate Abdominal: Soft Extremities: Other (Less swelling to the lower extremity especially legs) Skin: No Rashes Neuro: Normal Gait, Normal Speech Psych/Mental Status: Mental Status NL Discharge Home Medications Reviewed and agree with Discharge Medication list on patient's Discharge Instruction sheet Instructions to Patient/Family Please see electronic discharge instructions given to patient. Clinical Quality Measures DVT/VTE Risk/Contraindication: Risk Factor Score Per Nursin RFS Level Per Nursing on Admit: 3=High LEAH WOLF MD Jul 09, 2018 13:03
[2018-07-09 14:05] VITALS: BP 129/86
--- NOTE | 2018-07-09 14:05 | NUR ---
DISCHARGE INSTRUCTIONS GIVEN TO PATIENT. TIME ALLOWED FOR QUESTIONS. MIDLINE REMOVED AND GAUZE DRESSING APPLIED. PATIENT LEFT VIA WHEELCHAIR ACCOMPANIED BY STAFF. PATIENT LEFT VIA PRIVATE VEHICLE.
== END 2018-07-09 12:59 | disposition home or self-care (01) ==
LOC: EDUNIT# 18:10 → ER 18:11 → UNDOADMOB 21:15 → 4TH 21:15
PROVIDERS: ADMIT Family Medicine; ATTEND Family Medicine
DX: J44.1 Chronic obstructive pulmonary disease with (acute) exacerbation (principal); R09.02 Hypoxemia; I10 Essential (primary) hypertension; E78.00 Pure hypercholesterolemia, unspecified; K21.9 Gastro-esophageal reflux disease without esophagitis; K59.09 Other constipation; I73.9 Peripheral vascular disease, unspecified; R73.03 Prediabetes; F41.9 Anxiety disorder, unspecified; G62.9 Polyneuropathy, unspecified; Z87.891 Personal history of nicotine dependence; Z99.81 Dependence on supplemental oxygen; Z86.711 Personal history of pulmonary embolism; Z86.718 Personal history of other venous thrombosis and embolism; Z98.890 Other specified postprocedural states; Z79.01 Long term (current) use of anticoagulants; Z79.899 Other long term (current) drug therapy
CPT/HCPCS: 36415; 36600; 71046; 76937; 80053; 82805; 85025; 86141; 87804; 94640; 94644; 94760; 96361; 96374; G0378

== ENCOUNTER 2018-07-17 23:34 | Emergency (ER) | payer MEDICAID ==
[~2018-07-17] VITALS: Ht 165.1 cm; Wt 87.1 kg
--- OUTSIDE RECORDS SUMMARY | 2018-07-17 23:41 | XMS REPORT | Encounter Summary ---
Author Author [facility] Organization [facility] Address Unknown Phone Unavailable Care Team Providers Care Database Design Analyst Name Role Phone Jay Rogers MD PCP Joshua Ku MD Unavailable Reason for Visit * Reason Comments Prior Authorization please precert Encounter Details Care Team Description Date Type Department Joshua Ku MD [address] [facility] [place] [address] Prior Authorization (please precert) 05/02/2018 Telephone [facility] Physicians - [facility] [address] [place] [address] Social History Date Tobacco Use [...] - Andie Carrillo - 05/08/2018 4:32 PM PATHOLOGY TECH REF IN CHART OLOGY TECH * Telephone Encounter - Annie Brooks RN - 05/08/2018 11:10 AM PATHOLOGY TECH Pt has worn compression for greater than 3 months without relief of symptoms. Spoke with pt regarding Dr. Bass's recommendations. Pt understands and would like to proceed with procedures. She is ready for precert 1. dre right gsv, mp >20 2. dre left gsv, mp >20 OLOGY TECH * Telephone Encounter - Annie Brooks RN - 05/02/2018 11:53 AM PATHOLOGY TECH ----- Message from Joshua Ku MD sent at 05/02/2018 11:53 AM PATHOLOGY TECH ----- 1. dre right gsv, mp >20 2. dre left gsv, mp >20 OLOGY TECH in this encounter Plan of Treatment Not on fileas of this encounter Visit Diagnoses Not on filein this encounter
--- OUTSIDE RECORDS SUMMARY | 2018-07-17 23:41 | XMS REPORT | Encounter Summary ---
Author Author [facility] Organization [facility] Address Unknown Phone Unavailable Care Team Providers Care Furnace Keeper Name Role Phone Jay Rogers MD PCP Joshua Ku MD Unavailable Reason for Visit * Reason Comments Varicose Vein Encounter Details Care Team Description Date Type Department Varicose veins of lower extremities with complications, bilateral 07/11/2018 Clinical [facility] Support Physicians - [facility] [address] [place] [id number] Social History Date Tobacco Use Types [...] encounter Visit Diagnoses Diagnosis Varicose veins of lower extremities with complications, bilateral in this encounter
--- OUTSIDE RECORDS SUMMARY | 2018-07-17 23:41 | XMS REPORT | Encounter Summary ---
Author Author [facility] Organization [facility] Address Unknown Phone Unavailable Care Team Providers Care Manager Trade Name Role Phone Jay Rogers MD PCP Joshua Ku MD Unavailable Encounter Details Care Team Description Date Type Department Shanthi Topete, FOOD EQUIPMENT SERVICE TECHNICIAN [address] [facility] [place] [address] Leg swelling (Primary Dx); Varicose veins of left lower extremity with other complications 07/09/2018 Orders Only [facility] Physicians - [facility] [address] [place] [address] Social History Date Tobacco Use [...] as of this encounter Plan of Treatment Order Schedule Name Priority Associated Diagnoses Ordered: 07/09/2018 US DOPPLER VENOUS BILATERAL Routine Leg swelling Varicose veins of left lower extremity with other complications as of this encounter Visit Diagnoses Diagnosis Leg swelling - Primary Swelling of limb Varicose veins of left lower extremity with other complications in this encounter
--- OUTSIDE RECORDS SUMMARY | 2018-07-17 23:41 | XMS REPORT | Encounter Summary ---
Author Author [facility] Organization [facility] Address Unknown Phone Unavailable Care Team Providers Care Electrical Design Engineer Name Role Phone Jay Rogers MD PCP Joshua Ku MD Unavailable Reason for Visit * Reason Comments General Question Encounter Details Care Team Description Date Type Department Joshua Ku MD [address] [facility] [place] [address] General Question 07/02/2018 Telephone [facility] Physicians - V[facility] [address] [place] [address] Social History Date Tobacco Use [...] - Ifeanyi Silveira - 07/02/2018 3:42 PM SPRING INSPECTOR Answered all of patient's questions to satisfaction. She is ok to move to 2pm for procedures on 07/03 NG INSPECTOR * Telephone Encounter - Joseline Calabrese - 07/02/2018 1:56 PM SPRING INSPECTOR Who is calling? Sujey Rojocher What is [...] before sending: yes Call Back phone number: [phone] NG INSPECTOR * Telephone Encounter - Roselyn Dudley - 07/02/2018 11:33 AM SPRING INSPECTOR Pt is returning call to Annie Salas, Please call pt at [phone] NG INSPECTOR * Telephone Encounter - Annie Brooks, RN - 07/02/2018 11:25 AM SPRING INSPECTOR LM for pt to return call NG INSPECTOR * Telephone Encounter - Andie Carrillo - 07/02/2018 8:14 AM SPRING INSPECTOR Pt called wanting to know which leg [...] She would like a call back at [phone] NG INSPECTOR in this encounter Plan of Treatment Not on fileas of this encounter Visit Diagnoses Not on filein this encounter
--- OUTSIDE RECORDS SUMMARY | 2018-07-17 23:41 | XMS REPORT | Encounter Summary ---
Author Author [facility] Organization [facility] Address Unknown Phone Unavailable Care Team Providers Care Archivist Name Role Phone Jay Rogers MD PCP Joshua Ku MD Unavailable Reason for Visit * Reason Comments Procedure left great saphenous endovenous ablation with left leg microphlebectomy Encounter Details Care Team Description Date Type Department Joshua Ku MD [address] [facility] [place] [address] Varicose veins of left lower extremity with other complications 07/04/2018 Procedure visit [facility] Physicians - [facility] [address] [place] [address] Social History Date Tobacco Use [...] Maria Ines Sandoval - 07/04/2018 11:00 AM COFFEE ROASTER HELPER [facility] [place] [facility] [address] [place], [place] [address] Instructions following Vein Procedure 1. [...] Joshua Ku MD was your doctor today. EE ROASTER HELPER in this encounter Progress Notes * Joshua Ku MD - 07/04/2018 11:00 AM COFFEE ROASTER HELPER OPERATIVE REPORT/RADIOFREQUENCY ABLATION w/MP Date: 07/04/2018 Patient: [...] Surgeon: Joshua Ku MD M.D., F.BienvenidoS., R.P.V.I. Therapist(s): Linsey Keith and Maria Ines Sandoval Patient Doctor Of Dental Surgery/ORA Medications: Xanax 1mg Emla cream - 30 [...] Problem List Items Addressed This Visit None EE ROASTER HELPER in this encounter Plan of Treatment Not on fileas of this encounter Visit Diagnoses Diagnosis Varicose veins of left lower extremity with other complications in this encounter
--- OUTSIDE RECORDS SUMMARY | 2018-07-17 23:41 | XMS REPORT | Encounter Summary ---
Author Author [facility] Organization [facility] Address Unknown Phone Unavailable Care Team Providers Care Public Health Internship Name Role Phone Jay Rogers MD PCP Joshua Ku MD Unavailable Encounter Details Care Team Description Date Type Department Aide Oswald MD [address] [facility] [place] [address] 05/26/2018 Telephone [facility] Physicians - [facility] [address] [place] [address] Social History Date Tobacco Use [...] - Stella Anderson - 05/29/2018 8:32 AM CHEMICAL SUPERVISOR They just don't, that's their policy. ICAL SUPERVISOR * Telephone Encounter - Andie Carrillo - 05/29/2018 8:09 AM CHEMICAL SUPERVISOR I am waiting for a fax or letter to specify. I am not sure about the MP's. Would you suggest I call about it? Why does Medicaid not approve ablations? ICAL SUPERVISOR * Telephone Encounter - Stella Anderson - 05/28/2018 11:34 AM CHEMICAL SUPERVISOR This is pretty typical with Medicaid. Did our 56059/30170 codes get approved? ICAL SUPERVISOR * Telephone Encounter - Clarisa Hutchinson - 05/26/2018 3:36 PM CHEMICAL SUPERVISOR [employer] INFORMING CPT 68220 IS NOT AUTHORIZED UNDER [place] MEDICAID - CALL REP MARTHA AT [phone] FOR MORE INFORMATION BEFORE THE MED DIRECTOR HAS TO REVIEW ICAL SUPERVISOR in this encounter Plan of Treatment Not on fileas of this encounter Visit Diagnoses Not on filein this encounter
--- OUTSIDE RECORDS SUMMARY | 2018-07-17 23:41 | XMS REPORT | Encounter Summary ---
Author Author [facility] Organization [facility] Address Unknown Phone Unavailable Care Team Providers Care Watch Inspector Name Role Phone Jay Rogers MD PCP Joshua Ku MD Unavailable Reason for Visit * Reason Comments Prior Authorization Prior Authorization Encounter Details Care Team Description Date Type Department Joshua Ku MD [address] [facility] [place] [address] Prior Authorization; Prior Authorization 06/03/2018 Telephone [facility] Physicians - [facility] [address] [place] [address] Social History Date Tobacco Use [...] - Stella Anderson - 06/10/2018 3:25 PM ROLLER REPAIRER Patient is going to be approved for ablation. NAIL MAKER OVERTURNED THE DECISION OF MEDICAL POLICY. Referral in chart. ER REPAIRER * Telephone Encounter - Stella Anderson - 06/10/2018 2:21 PM ROLLER REPAIRER Spoke with patient, she is faxing me a letter. I have also left a message for insurance rep Kesha. I need to speak with her. ER REPAIRER * Telephone Encounter - Roselyn Dudley - 06/10/2018 9:18 AM ROLLER REPAIRER Who is calling? Sujey Feliz What is [...] before sending: yes Call Back phone number: [phone] ER REPAIRER * Telephone Encounter - Joseline Calabrese - 06/09/2018 4:00 PM ROLLER REPAIRER Who is calling? Sujey Feliz What is [...] before sending: yes Call Back phone number: [phone] ER REPAIRER * Telephone Encounter - Stella Anderson - 06/09/2018 12:46 PM ROLLER REPAIRER Spoke with patient, she called and stated [...] have MPs. But ablations will be OOP. ER REPAIRER * Telephone Encounter - Doris Bowie RN - 06/04/2018 8:[address] Bass, Patient insurance doesn't cover ablations. [...] in care credit to cover her procedures. ER REPAIRER * Telephone Encounter - Stella Anderson - 06/03/2018 3:30 PM ROLLER REPAIRER Patient was approved for MPs with Medicaid. Ablations are not a covered benefits. Pt will have to pay OOP for those. I have quoted her for ablations. She would like to speak with a nurse regarding how to proceed with procedures. Please call back at [phone] ER REPAIRER in this encounter Plan of Treatment Not on fileas of this encounter Visit Diagnoses Not on filein this encounter
--- OUTSIDE RECORDS SUMMARY | 2018-07-17 23:41 | XMS REPORT | Encounter Summary ---
Author Author [facility] Organization [facility] Address Unknown Phone Unavailable Care Team Providers Care Physical Therapy Aide Name Role Phone Jay Rogers MD PCP Joshua Ku MD Unavailable Reason for Visit * Reason Comments Surgery Encounter Details Care Team Description Date Type Department Joshua Ku MD [address] [facility] [place] [address] 06/11/2018 Refill [facility] Physicians - [facility] [address] [place] [address] Social History Date Tobacco Use [...]
--- OUTSIDE RECORDS SUMMARY | 2018-07-17 23:41 | XMS REPORT | Clinical Summary ---
Author Author [facility] Organization [facility] Address Unknown Phone Unavailable Care Team Providers Care Inseamer Name Role Phone Jay Rogers MD PCP Joshua Ku MD Unavailable Source Comments Some departments are not documenting in the electronic medical record. If you do not see the information that you expected, contact Release of Information in the Health Information Management department at [phone] for further assistance in locating additional records.[facility] Allergies Comments Active Allergy Reactions Severity Noted [...] as needed for Nausea or Vomiting. 07/11/2018 HYDROcodone/acetaminophen Take one 20 tablet 0 (NORCO) 5/325 mg tablet tablet to two 9 tablets by mouth every 4 hours as needed for Pain for up to 30 days Earliest Fill Date: 06/11/18 Active Problems Problem Noted Date Varicose veins of left lower extremity with other complications 05/01/2018 Leg swelling 05/01/2018 Protein C deficiency 05/01/2018 Encounters Care Team Description Date Type Specialty Varicose veins of lower extremities with complications, bilateral 07/11/2018 Clinical V[facility] Surgery Support Joshua Ku MD Surgical Followup 07/11/2018 Telephone Vascular Surgery Shanthi Topete APRN Leg swelling (Primary Dx); Varicose veins of left lower extremity with other complications 07/09/2018 Orders Only Vascular Surgery Joshua Ku MD General Question; General Question 07/07/2018 Telephone Vascular Surgery Joshua [...] Taken Vital Sign Reading 04/29/2018 11:50 AM HOSPITAL SCIENTIST Blood Pressure 110/72 - Pulse - - Temperature - - Respiratory Rate - - Oxygen Saturation - - Inhaled Oxygen - Concentration 04/29/2018 11:50 AM HOSPITAL SCIENTIST Weight 83.9 kg (185 lb) 04/29/2018 11:50 AM HOSPITAL SCIENTIST Height 165.1 cm (5' 5") 04/29/2018 11:50 AM HOSPITAL SCIENTIST Body Mass Index 30.79 Plan of Treatment Health Maintenance Due Date Last Done Comments HEPATITIS C SCREENING 1958 PHYSICAL (COMPREHENSIVE) 1965 EXAM HIV SCREENING 1973 DTAP/TDAP VACCINES (1 - 1976 Tdap) CERVICAL CANCER SCREENING 1988 BREAST CANCER SCREENING 1998 COLORECTAL CANCER 2008 SCREENING SHINGLES RECOMBINANT 2008 VACCINE (1 of 2) INFLUENZA VACCINE 12/11/2018 Procedures Comments Procedure Name Priority Date/Time Associated Diagnosis US DOPPLER VENOUS Routine 05/02/2018 Varicose veins of BILATERAL bilateral lower extremities with pain from Last 3 Months Results * US DOPPLER VENOUS BILATERAL (05/02/2018) Narrative Performed At Performing Organization Address City/State/Zipcode Phone Number [facility] from Last 3 Months Insurance Payer Benefit Subscriber ID Type Phone Address Plan / Group AETNA MEDICAID AETNA xxxxxxxxxxx [facility] Advance Directives Patient has advance care planning documents on file. For more information, please contact: [facility] [address] [place] [address]
--- OUTSIDE RECORDS SUMMARY | 2018-07-17 23:41 | XMS REPORT | Encounter Summary ---
Author Author [facility] Organization [facility] Address Unknown Phone Unavailable Care Team Providers Care Certified Corporate Travel Executive Name Role Phone Jay Rogers MD PCP Joshua Ku MD Unavailable Reason for Visit * Reason Comments Surgical Followup Encounter Details Care Team Description Date Type Department Joshua Ku MD [address] [facility] [place] [address] Surgical Followup 07/11/2018 Telephone [facility] Physicians - V[facility] [address] [place] [address] Social History Date Tobacco Use [...] encounter Miscellaneous Notes * Telephone Encounter - Annie Brooks RN - 07/14/2018 8:42 AM ECONOMETRICIAN Pt presented for a post operative ultrasound and 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 Pt is currently on coumadin. She was initially scheduled for an additional 1 week f/u post scan to reevaluate HIT. Pt called today stating she comes from a distance and is not able to drive back and forth anymore. Considering that the patient is already on anticoagulation, is therapeutic, and asymptomatic, I advised the patient that as long as those factors remain unchanged, we could probably prolong any additional scanning to the date she is scheduled for her surgical follow up in August. Patient is agreeable to this and is aware of when to seek medical attention if she becomes symptomatic to DVT or PE. OMETRICIAN in this encounter Plan of Treatment Not on fileas of this encounter Visit Diagnoses Not on filein this encounter
--- OUTSIDE RECORDS SUMMARY | 2018-07-17 23:41 | XMS REPORT | Encounter Summary ---
Author Author [facility] Organization [facility] Address Unknown Phone Unavailable Care Team Providers Care Plumbing Service Technician Name Role Phone Jay Rogers MD PCP Joshua Ku MD Unavailable Reason for Visit * Reason Comments Procedure right great saphenous endovenous ablation with right leg microphlebectomy * Outpatient Surgery (Routine) Referred By Contact Referred To Contact Status Reason Specialty Diagnoses / Procedures Joshua Ku MD [address] [facility] [place] [address] Joshua Ku MD [address] [facility] [place] [address] Authorized Vascular Surgery Diagnoses Varicose veins of right lower extremity with other complications Varicose veins of left lower extremity with other complications Other specified soft tissue disorders Other primary thrombophilia ([facility]) 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 dre right gsv, mp >20 2. dre left gsv, mp >20 Encounter Details Care Team Description Date Type Department Joshua Ku MD [address] [facility] [place] [address] [phone] Varicose veins of right lower extremity with pain (Primary Dx) 07/03/2018 Procedure visit [facility] Physicians - [facility] [address] [place] [address] Social History Date Tobacco Use [...] Ines Sandoval Sherine - 07/03/2018 2:00 PM RIVET STICKER [facility] [address] [place], [place] [address] Instructions following Vein Procedure 1. If you [...] Joshua Ku MD was your doctor today. T STICKER in this encounter Progress Notes * Joshua Ku MD - 07/03/2018 2:00 PM RIVET STICKER OPERATIVE REPORT/RADIOFREQUENCY ABLATION w/MP Date: 07/03/2018 Patient: [...] Surgeon: Joshua Ku MD M.D., F.A.C.S., R.P.V.I. Credit Product Analyst(s): Annie Brooks R.N.-B.S.NCamryn and Maria Ines Sandoval Patient Principal Solutions Architect/ORA Medications: Xanax 1mg Emla cream - 30 [...] right lower extremity with pain - Primary T STICKER in this encounter Plan of Treatment Not on fileas of this encounter Visit Diagnoses Diagnosis Varicose veins of right lower extremity with pain - Primary Varicose veins of lower extremities with other complications in this encounter
--- OUTSIDE RECORDS SUMMARY | 2018-07-17 23:41 | XMS REPORT | Encounter Summary ---
Author Author [facility] Organization [facility] Address Unknown Phone Unavailable Care Team Providers Care Customer Service Supervisor Name Role Phone Jay Rogers MD PCP Joshua Ku MD Unavailable Reason for Visit * Reason Comments General Question General Question Encounter Details Care Team Description Date Type Department Joshua Ku MD [address] [facility] [place] [address] General Question; General Question 07/07/2018 Telephone [facility] Physicians - [facility] [address] [place] [address] Social History Date Tobacco Use [...] Telephone Encounter - Annie Brooks RN - 07/08/2018 10:20 AM PROSTHETIST Spoke with pt, we spoke at length yesterday regarding her concerns, I called her from home as I was not in the office. The patient is hospitalized for unrelated issues, sinus infection, trouble breathing, low O2 sats. I did advise pt that sutures can wait to come out a bit longer. Her post scan has been rescheduled to Tuesday 07/11 THETIST * Telephone Encounter - Joseline Calabrese - 07/08/2018 8:04 AM PROSTHETIST Who is calling? Sujey Feliz What is the patients need/concern? PATIENT CALLED AND STATED THAT SHE HAS BEEN ADMITTED INTO [facility] IN [place], [place]. PATIENT STATES THAT SHE HAS AN APPT WITH TODAY(07/08/2018) AT 11:10 AM FOR A ULTRASOUND. PATIENT STATES THAT SHE IS TO HAVE HER SUTURE REMOVAL DONE TODAY. PATIENT IS WANTING TO KNOW WHAT SHE SHOULD DO ABOUT THE SUTURES. Which hospital was the patient [facility] at? [facility] Are there any other needs/concerns the patient has? YES If yes, description of concern: PATIENT WANTS TO KNOW IF SHE IS UNABLE TO COME TODAY TO HAVE HER SUTURES REMOVED IS IT OKAY TO HAVE THEM IN A LITTLE LONGER. Expected response time frame given to patient: I TOLD PATIENT THAT SHE WILL RECEIVE A CALL BACK IF NOT TODAY THEN BY TOMORROW AT THE LATEST. Read back to patient before sending: yes Call Back phone number: [phone] THETIST * Telephone Encounter - Roselyn Dudley - 07/07/2018 9:05 AM PROSTHETIST Who is calling? Sujey Feliz What is [...] hospital was the patient seen at? [facility] Are there any other needs/concerns the patient has? no If yes, description of concern: Expected response time frame given to patient: 24 hours Read back to patient before sending: yes Call Back phone number: [phone] THETIST in this encounter Plan of Treatment Not on fileas of this encounter Visit Diagnoses Not on filein this encounter
--- OUTSIDE RECORDS SUMMARY | 2018-07-17 23:41 | XMS REPORT | Encounter Summary ---
Author Author [facility] Organization [facility] Address Unknown Phone Unavailable Care Team Providers Care Kiln Tester Name Role Phone Jay Rogers MD PCP [...] Date Type Department Joshua Ku MD [address] [facility] [place] [address] General Question (Pt wanted to know could she be re submitted to Insurance for vein procedure. Was advised maybe we didnt send all clinical info for it. She asked to recieve a call back to go over options.) 06/09/2018 Telephone [facility] Physicians - [facility] [address] [place] [address] Social History Date Tobacco Use [...] Encounter - Ifeanyi Silveira 06/13/2018 11:25 AM ANALYTICAL LABORATORY TECHNICIAN R/S pt. For 07/03 and 07/04 YTICAL LABORATORY TECHNICIAN * Telephone Encounter - Roselyn Dudley - 06/13/2018 10:28 AM ANALYTICAL LABORATORY TECHNICIAN Pt needs to reschedule her vein procedure due to not having transportation. If time is available for Dr. Oswald, pt is thinking of the following week. Please call [phone] YTICAL LABORATORY TECHNICIAN * Telephone Encounter - Stella Anderson - 06/09/2018 12:47 PM ANALYTICAL LABORATORY TECHNICIAN Notes in original telephone encounter regarding matter. YTICAL LABORATORY TECHNICIAN * Telephone Encounter - Angela Roberson - 06/09/2018 12:09 PM ANALYTICAL LABORATORY TECHNICIAN Pt wanted to know could she be re submitted to Insurance for vein procedure. Was advised maybe we didnt send all clinical info for it. She asked to recieve a call back to go over options. YTICAL LABORATORY TECHNICIAN in this encounter Plan of Treatment Not on fileas of this encounter Visit Diagnoses Not on filein this encounter
--- OUTSIDE RECORDS SUMMARY | 2018-07-17 23:42 | XMS REPORT | Encounter Summary ---
Author Author [facility] Organization [facility] Address Unknown Phone Unavailable Care Team Providers Care Glassware Defect Repairer Name Role Phone Jay Rogers MD PCP Joshua Ku MD Unavailable Reason for Visit * Reason Comments Varicose Vein Encounter Details Care Team Description Date Type Department Varicose veins of bilateral lower extremities with pain 04/29/2018 Clinical [facility] Support Physicians - [facility] [address] [place] [address] Social History Date Tobacco Use Types [...]
--- OUTSIDE RECORDS SUMMARY | 2018-07-17 23:42 | XMS REPORT | Encounter Summary ---
Author Author [facility] Organization [facility] Address Unknown Phone Unavailable Care Team Providers Care Mold Clamper Name Role Phone Jay Rogers MD PCP Joshua Ku MD Unavailable Reason for Visit * Reason Comments Leg Swelling bilateral legs Leg Pain bilateral legs Encounter Details Care Team Description Date Type Department Joshua Ku MD [address] [facility] [place] [address] Varicose veins of right lower extremity with other complications (Primary Dx); Varicose veins of left lower extremity with other complications; Leg swelling; Protein C deficiency (HCC) 04/29/2018 Office Visit [facility] Physicians - [facility] [address] [place] [address] Social History Date Tobacco Use [...] Taken Vital Sign Reading 04/29/2018 11:50 AM LOGGING CREW SUPERVISOR Blood Pressure 110/72 - Pulse - - Temperature - - Respiratory Rate - - Oxygen Saturation - - Inhaled Oxygen - Concentration 04/29/2018 11:50 AM LOGGING CREW SUPERVISOR Weight 83.9 kg (185 lb) 04/29/2018 11:50 AM LOGGING CREW SUPERVISOR Height 165.1 cm (5' 5") 04/29/2018 11:50 AM LOGGING CREW SUPERVISOR Body Mass Index 30.79 in this encounter Progress Notes * Joshua Ku MD - 04/29/2018 11:10 AM LOGGING CREW SUPERVISOR Date of Service: 04/29/2018 Chief Complaint Patient [...] Leg swelling 4. Protein C deficiency (HCC) ING CREW SUPERVISOR in this encounter Plan of Treatment Not on fileas of this encounter Visit Diagnoses Diagnosis Varicose veins of right lower extremity with other complications - Primary Varicose veins of left lower extremity with other complications Leg swelling Swelling of limb Protein C deficiency (HCC) Primary hypercoagulable state in this encounter
[2018-07-18] MEDS ORDERED: methylPREDNISolone 125 MG (Solu-MEDROL) VIAL IV STA (01:13)
[2018-07-18] MEDS ORDERED: DEXAMETHASONE 4 MG/ML SDV (DECADRON) IH ONE (01:15)
[2018-07-18] MEDS ORDERED: RT-ALBUTEROL/IPRATROPIUM 3 ML (DUONEB) VIAL INH ONE (01:15)
[2018-07-18 01:45] LABS: BASOPHILS % (AUTO) 0 % (0-10); EOSINOPHILS # (AUTO) 0.2 10^3/uL (0.0-0.3); EOSINOPHILS % (AUTO) 3 % (0-10); HEMATOCRIT 39 % (35-52); HEMOGLOBIN 12.2 G/DL (11.5-16.0); LYMPHOCYTES # (AUTO) 1.1 X 10^3 (1.0-4.0); LYMPHOCYTES % (AUTO) 15 % (12-44); MEAN CORPUSCULAR HEMOGLOBIN 28 PG (25-34); MEAN CORPUSCULAR HGB CONC 32 G/DL (32-36); MEAN CORPUSCULAR VOLUME 89 FL (80-99); MEAN PLATELET VOLUME 8.9 FL (7.4-10.4); MONOCYTES # (AUTO) 1.1 X 10^3 (0.0-1.0); MONOCYTES % (AUTO) 15 % (0-12); NEUTROPHILS # (AUTO) 5.1 X 10^3 (1.8-7.8); NEUTROPHILS % (AUTO) 68 % (42-75); PLATELET COUNT 291 10^3/uL (130-400); RED CELL DISTRIBUTION WIDTH 15.7 % (10.0-14.5); WHITE BLOOD COUNT 7.6 10^3/uL (4.3-11.0)
[2018-07-18 01:54] LABS: INR 1.5 (0.8-1.4); PROTHROMBIN TIME PATIENT 18.3 SEC (12.2-14.7)
[2018-07-18] MEDS ORDERED: OSELTAMIVIR 75 MG (TAMIFLU) CAPSULE PO ONE (02:00)
[2018-07-18 02:04] LABS: ALANINE AMINOTRANSFERASE 19 U/L (0-55); ALBUMIN 3.7 GM/DL (3.2-4.5); ALKALINE PHOSPHATASE 63 U/L (40-136); BILIRUBIN,TOTAL 0.6 MG/DL (0.1-1.0); BUN/CREATININE RATIO 15; CALCIUM 8.7 MG/DL (8.5-10.1); CARBON DIOXIDE 22 MMOL/L (21-32); CHLORIDE 99 MMOL/L (98-107); CREATININE SERUM 0.65 MG/DL (0.60-1.30); GFR ESTIMATED > 60; GLUCOSE 88 MG/DL (70-105); MAGNESIUM 2.2 MG/DL (1.8-2.4); POTASSIUM 4.2 MMOL/L (3.6-5.0); SODIUM 133 MMOL/L (135-145); TOTAL PROTEIN 6.7 GM/DL (6.4-8.2)
[2018-07-18] MEDS ORDERED: OSELTAMIVIR 75 MG (TAMIFLU) CAPSULE ONE (02:51)
[2018-07-18] MEDS ORDERED: D-ME118S7 PO (02:53)
[2018-07-18] MEDS ORDERED: OSLT75C PO (02:53)
[2018-07-18] MEDS ORDERED: BALO40TA PO (02:53)
[2018-07-18] MEDS ORDERED: BENZ100C18 PO (02:53)
[2018-07-18] MEDS ORDERED: PRED5TAB PO (02:53)
--- NOTE | 2018-07-18 02:54 | ED Respiratory ---
General Chief Complaint: Cough/Cold/Flu Symptoms Stated Complaint: FEVER,COUGH Allergies and Home Medications Allergies Coded Allergies: aspirin (Verified Allergy, Severe, ANAPHYLAXIS, 08/07/17) ibuprofen (Verified Allergy, Severe, ANAPHYLAXIS, 08/07/17) ketorolac (Verified Allergy, Severe, ANAPHYLAXIS, 08/07/17) tetanus and diphtheria toxoids (Unverified Allergy, Severe, ANAPHYLAXIS, ) aloe (Verified Allergy, Mild, RASH, 08/07/17) latex (Verified Allergy, Mild, RASH, 08/07/17) OCCASIONALLY IS IRRITATING SKIN scopolamine (Verified Allergy, Mild, 08/07/17) iodine (Verified Adverse Reaction, Unknown, 08/07/17) Patient states she got dizzy, diaphoretic and saw stars. Uncoded Allergies: ALOE VERA (Allergy, Unknown, 12/23/05) SILK SUTURES (Adverse Reaction, Unknown, BODY REJECTS SUTURES, 10/07/13) Home Medications Albuterol Sulfate 2.5 Mg/3 Ml Vial.neb, 2.5 MG NEB TID, (Reported) MIXES WITH IPRATROPIUM SOLUTION Albuterol Sulfate 8.5 Gm Hfa.aer.ad, 2 PUFF IH Q4H PRN for SHORTNESS OF BREATH, (Reported) Albuterol Sulfate 2.5 Mg/3 Ml Vial.neb, 2.5 MG NEB Q2H PRN for SHORTNESS OF BREATH, (Reported) Alprazolam 1 Mg Tablet, 1 MG PO Q8H PRN for ANXIETY, (Reported) Calcium Carbonate/Vitamin D3 1 Each Tablet, 1 TAB PO BID, (Reported) Furosemide 80 Mg Tablet, 40 MG PO DAILY, (Reported) TAKES 1/2 (80MG) TABLET Hydrocodone/Acetaminophen 1 Each Tablet, 1 TAB PO Q6H PRN for PAIN-MODERATE, ( Reported) Hyoscyamine Sulfate 0.125 Mg Tab.rapdis, 0.125 MG SL Q6H PRN for ABDOMINAL PAIN, (Reported) Ipratropium [place] 0.2 Mg/1 Ml Solution, 1 VIAL NEB TID, (Reported) MIXES WITH ALBUTEROL SOLUTION Loratadine 10 Mg Tablet, 10 MG PO DAILY, (Reported) Montelukast Sodium 10 Mg Tablet, 10 MG PO HS, (Reported) Pantoprazole Sodium 40 Mg Tablet.dr, 40 MG PO DAILY, (Reported) Potassium Chloride 10 Meq Tablet.er, 20 MEQ PO BID, (Reported) TAKES 2 (10 MEQ) TABLETS Prednisone 20 Mg Tab, 20 MG PO DAILY Take 3 tabs(60mg)daily,decrease by 1/2 tab(10mg)every other day. Prescribed by: LEAH WOLF on 07/09/18 1258 Promethazine HCl 25 Mg Tablet, 25 MG PO Q6H PRN for NAUSEA/VOMITING-2ND LINE, ( Reported) Warfarin Sodium 4 Mg Tablet, 4 MG PO 1800, (Reported) Past Sapxyxe-Swhktm-Drngym Hx Patient Social History Drug of Choice: + IV COCAINE USE Type Used: Cigarettes Former Smoker, Quit: Nov 17, 2000 2nd Hand Smoke Exposure: No Recent Foreign Travel: No Contact w/Someone Who Travel: No Recent Hopitalizations: No Immunizations Up To Date Tetanus Booster (TDap): Unknown PED Vaccines UTD: No Date of Pneumonia Vaccine: Jul 08, 2012 Date of Influenza Vaccine: Mar 11, 2012 Seasonal Allergies Seasonal Allergies: Yes Past Medical History Surgeries: Yes Abdominal, Adenoidectomy, Section, Gallbladder, Hysterectomy, Orthopedic, Tonsillectomy, Vascular Surgery Respiratory: Yes (O2 AT HS 2-3L/NC AND PRN--NOCTURNAL HYPOXIA; ) Asthma, Pneumonia, Chronic Bronchitis, Pulmonary Embolism, COPD Currently Using CPAP: No Currently Using BIPAP: No Cardiac: Yes Chronic Edema/Swelling, Deep Vein Thrombosis, High Cholesterol, Hypertension, Peripheral Vascular Neurological: Yes Neuropathy 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 Disorders: No 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 Disorders: Denies TROUBLE DISPATCHER History: Hysterectomy, Menopausal Sexually Transmitted Disease: No HIV/AIDS: No 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: Yes Kidney Infection, Bladder Infection, Kidney Stones Gastrointestinal: Yes (MULTIPLE HERNIA REPAIRS; MULTIPLE EGD'S /COLONOSCOPIES/ POLYPECTOMIES) Abdominal Hernia, Gastroesophageal Reflux, Chronic Constipation, Chronic Diarrhea, Hepatitis, Polyps, Hiatal Hernia, Gall Bladder Disease, Irritable Bowel Musculoskeletal: Yes Arthritis Endocrine: Yes ("PRE-DIABETIC" ) HEENT: Yes (NASAL POLYPS) Cataract Loss of Vision: Denies Hearing Impairment: Denies Cancer: No Did You Recieve Any Treatments: No Psychosocial: Yes Anxiety Integumentary: Yes (CHRONIC VENOUS STASIS DERMATITIS AND ULCERS. ) Recent Skin Changes Blood Disorders: Yes (DVT'S/PE'S; PROBABLE PROTEIN C DEFICIENCY) Adverse Reaction/Blood Tranf: No (HAS HAD BLOOD WITH NO PROBLEMS) Family Medical History Alcoholism Alcoholism Arthritis Asthma Cancer Cancer of colon Cancer of mouth Cardiovascular disease Cataract Cataracts Chest pain Colon cancer Completed stroke Diabetes mellitus Family history: Allergy Family history: Arthritis Family history: Asthma Family history: Cardiovascular disease Family history: Coronary thrombosis Family history: Diabetes mellitus Family history: Gastrointestinal disease Family history: Hypertension Family history: Thyroid disorder Headache Hearing loss Heart disease History of - anemia History of - respiratory disease Hypercholesterolemia Hypercholesterolemia Infertile Malignant neoplasm of lung Myocardial infarction Myocardial infarction Psychotic disorder Respiratory disorder Stroke No Family History of: AIDS Abdominal aortic aneurysm Abdominal aortic aneurysm [place]'s disease Fernando's disease Alzheimer's disease Aphasia Aphasia Congenital disease Congenital heart disease Congenital heart disease Congestive heart failure Coronary thrombosis Cystic fibrosis Cystic fibrosis Deafness or hearing loss Dementia Dementia Drug abuse Dysphagia Dysphasia Family history: Alzheimer's disease Family history: Breast disease Family history: Glaucoma Family history: Osteoporosis Fibrocystic disease of breast Gastroenteritis Glaucoma Headache disorder Hereditary disease History of - disorder History of drug abuse Human immunodeficiency virus (HIV) seropositivity Infertility Kidney disease Kidney disease Neoplasm Not obtainable due to adoption Osteoporosis Parkinson's disease Parkinson's disease Prostate cancer Psychosocial problem Seizure disorder Seizure disorder Severe allergy Thyroid disease Tuberculosis Tuberculosis Visual disorder Visual impairment Cancer, COPD, Vascular Disease Physical Exam Vital Signs - First Documented 07/18/18 01:05 Pulse Ox 96 O2 Delivery Nasal Cannula O2 Flow Rate 2.00 Capillary Refill : Height: 5'5.00" Weight: 197lbs. 3.0oz. 89.201816eu; 32.8 BMI Method:Stated Focused Exam Lactate Level 07/18/18 01:35: Lactic Acid Level 0.92 Lactic Acid Level Laboratory Tests Test 07/18/18 01:35 Lactic Acid Level 0.92 MMOL/L (0.50-2.00) Progress/Results/Core Measures Suspected Sepsis SIRS Temperature: Pulse: Respiratory Rate: Laboratory Tests 07/18/18 01:35: White Blood Count 7.6 Blood Pressure / Mean: 07/18/18 01:35: Lactic Acid Level 0.92 Laboratory Tests 07/18/18 01:35: Creatinine 0.65, INR Comment 1.5H, Platelet Count 291, Total Bilirubin 0.6 Results/Orders Lab Results Laboratory Tests Test 07/18/18 01:35 Range/Units White Blood Count 7.6 4.3-11.0 10^3/uL Red Blood Count 4.31 L 4.35-5.85 10^6/uL Hemoglobin 12.2 11.5-16.0 G/DL Hematocrit 39 35-52 % Mean Corpuscular Volume 89 80-99 FL Mean Corpuscular Hemoglobin 28 25-34 PG Mean Corpuscular Hemoglobin Concent 32 32-36 G/DL Red Cell Distribution Width 15.7 H 10.0-14.5 % Platelet Count 291 130-400 10^3/uL Mean Platelet Volume 8.9 7.4-10.4 FL Neutrophils (%) (Auto) 68 42-75 % Lymphocytes (%) (Auto) 15 12-44 % Monocytes (%) (Auto) 15 H 0-12 % Eosinophils (%) (Auto) 3 0-10 % Basophils (%) (Auto) 0 0-10 % Neutrophils # (Auto) 5.1 1.8-7.8 X 10^3 Lymphocytes # (Auto) 1.1 1.0-4.0 X 10^3 Monocytes # (Auto) 1.1 H 0.0-1.0 X 10^3 Eosinophils # (Auto) 0.2 0.0-0.3 10^3/uL Basophils # (Auto) 0.0 0.0-0.1 10^3/uL Prothrombin Time 18.3 H 12.2-14.7 SEC INR Comment 1.5 H 0.8-1.4 Activated Partial Thromboplast Time 28 24-35 SEC Sodium Level 133 L 135-145 MMOL/L Potassium Level 4.2 3.6-5.0 MMOL/L Chloride Level 99 98-107 MMOL/L Carbon Dioxide Level 22 21-32 MMOL/L Anion Gap 12 5-14 MMOL/L Blood Urea Nitrogen 10 7-18 MG/DL Creatinine 0.65 0.60-1.30 MG/DL Estimat Glomerular Filtration Rate > 60 BUN/Creatinine Ratio 15 Glucose Level 88 70-105 MG/DL Lactic Acid Level 0.92 0.50-2.00 MMOL/L Calcium Level 8.7 8.5-10.1 MG/DL Corrected Calcium 8.9 8.5-10.1 MG/DL Magnesium Level 2.2 1.8-2.4 MG/DL Total Bilirubin 0.6 0.1-1.0 MG/DL Aspartate Amino Transf (AST/SGOT) 24 5-34 U/L Alanine Aminotransferase (ALT/SGPT) 19 0-55 U/L Alkaline Phosphatase 63 40-136 U/L Total Protein 6.7 6.4-8.2 GM/DL Albumin 3.7 3.2-4.5 GM/DL Micro Results Microbiology 07/18/18 Influenza Types A,B Antigen (JAIDA) - Final, Complete My Orders Orders - BABAR,STEPHANIE Rivas DO Influenza A And B Antigens (07/18/18 01:09) Saline Lock/Iv-Start (07/18/18 01:13) O2 (07/18/18 01:13) Monitor-Rhythm Ecg Trace Only (07/18/18 01:13) Cbc With Automated Diff (07/18/18 01:13) Comprehensive Metabolic Panel (07/18/18 01:13) Lactic Acid Analyzer (07/18/18 01:13) Magnesium (07/18/18 01:13) Protime With Inr (07/18/18 01:13) Partial Thromboplastin Time (07/18/18 01:13) Blood Culture (07/18/18 01:13) Chest Pa/Lat (2 View) (07/18/18 01:13) Albuterol/Ipra Inhalation Soln (Duoneb I (07/18/18 01:15) Dexamethasone Injection (Decadron Inject (07/18/18 01:15) Rt Request For Service (07/18/18 01:13) Svn Small Volume Nebulizer (07/18/18 01:13) Methylprednisolone Sod Succ (Solu-Medrol (07/18/18 01:13) Oseltamivir 75 Mg Capsule (Tamiflu 75 (07/18/18 02:00) Medications Given in ED Current Medications Medications Dose Ordered Sig/Nahomi Route Start Time Stop Time Status Last Admin Dose Admin Albuterol/ Ipratropium 3 ml ONCE ONCE INH 07/18/18 01:15 07/18/18 01:17 DC 07/18/18 01:45 3 ML Dexamethasone Sodium Phosphate 30 mg ONCE ONCE IH 07/18/18 01:15 07/18/18 01:17 DC 07/18/18 01:45 30 MG Vital Signs/I&O 07/18/18 07/18/18 07/18/18 01:05 01:05 01:49 Pulse Ox 96 95 O2 Delivery Nasal Cannula Nasal Cannula Nasal Cannula O2 Flow Rate 2.00 2.00 3.00 Capillary Refill : Progress Note : Progress Note GIVEN HOUR LONG NEB TREATMENT--INCREASED AERATION, DECREASED WHEEZING. O2 SATS 94-95% ON 3L/NC PRIOR TO DISMISSAL Departure Impression Primary Impression: Influenza A Additional Impression: COPD exacerbation Disposition: 01 HOME, SELF-CARE Condition: Improved Departure-Patient Inst. Referrals: LEAH WOLF MD (PCP/Family) Primary Care Physician Patient Instructions: Exacerbation of COPD (DC), Flu, Adult (DC) Add. Discharge Instructions: TYLENOL 1 GRAM 4 TIMES A DAY As NEEDED FOR PAIN OR FEVER LOTS OF CLEAR LIQUIDS USE YOUR NEBULIZER EVERY 4 HOURS AND CONTINUE YOUR OTHER MEDICATIONS PRESCRIBED FOLLOW UP WITH YOUR DR IN 3-4 DAYS IF NO BETTER, RETURN TO ER IF WORSE All discharge instructions reviewed with patient and/or family. Voiced understanding. Scripts Prednisone (Prednisone) 5 Mg Tablet 5 MG PO UD, #78 TAB 12 PILLS DAY 1, THEN DECREASE BY 1 PILL A DAY UNTIL GONE Prov: STEPHANIE ECKERT DO 07/18/18 D-Methorphan Hb/Prometh HCl (Promethazine-Dm Syrup) 118 Ml Syrup 1-2 TSP PO Q4H for Cough, #120 ML Prov: STEPHANIE ECKERT DO 07/18/18 Benzonatate (TESSALON PERLES) 100 Mg Capsule 1-2 TAB PO TID for Cough, #30 CAP Prov: STEPHANIE ECKERT DO 07/18/18 Oseltamivir Phosphate (Tamiflu) 75 Mg Cap 75 MG PO BID, #10 CAP Prov: STEPHANIE ECKERT DO 07/18/18 Baloxavir Marboxil (Xofluza) 40 Mg Tablet 80 MG PO ONCE, #2 TAB Prov: STEPHANIE ECKERT DO 07/18/18 STEPHANIE ECKERT DO Jul 18, 2018 02:54
[2018-07-18] MEDS ORDERED: BENZONATATE 100 MG (TESSALON) CAPSULE PO ONE (03:26)
[2018-07-18] MEDS: BENZONATATE 100 MG (TESSALON) CAPSULE PO SCH ×2 (03:30→03:36)
[2018-07-18 03:43] VITALS: BP 113/72
--- NOTE | 2018-07-18 07:08 | Diagnostic Imaging Report ---
INDICATION: Shortness of air. TECHNIQUE: Two view chest 2:10 AM CORRELATION STUDY: 07/07/2018 FINDINGS: Heart size borderline. Vasculature slightly increased. Small effusions. There are areas of atelectasis and/or infiltrate lung bases with lungs otherwise hyperinflated. Visualized osseous structures are unremarkable. IMPRESSION: 1. Hyperinflated lung howard with changes of COPD. May be trace effusions and minimal basilar atelectasis. Dictated by: Dictated on workstation # [id number]
== END 2018-07-18 03:43 | disposition home or self-care (01) ==
LOC: EDUNIT# 23:34 → ER 23:36
DX: J10.1 Influenza due to other identified influenza virus with other respiratory manifestations (principal); J44.1 Chronic obstructive pulmonary disease with (acute) exacerbation; E78.00 Pure hypercholesterolemia, unspecified; I10 Essential (primary) hypertension; I73.9 Peripheral vascular disease, unspecified; K21.9 Gastro-esophageal reflux disease without esophagitis; K58.9 Irritable bowel syndrome, unspecified; F41.9 Anxiety disorder, unspecified; Z80.0 Family history of malignant neoplasm of digestive organs; Z82.49 Family history of ischemic heart disease and other diseases of the circulatory system; Z80.1 Family history of malignant neoplasm of trachea, bronchus and lung; Z87.09 Personal history of other diseases of the respiratory system; Z86.010 Personal history of colon polyps; Z87.19 Personal history of other diseases of the digestive system; Z87.448 Personal history of other diseases of urinary system; Z87.442 Personal history of urinary calculi; Z86.718 Personal history of other venous thrombosis and embolism; Z99.81 Dependence on supplemental oxygen; Z88.6 Allergy status to analgesic agent; Z88.7 Allergy status to serum and vaccine; Z88.4 Allergy status to anesthetic agent; Z91.040 Latex allergy status; Z91.041 Radiographic dye allergy status; Z79.51 Long term (current) use of inhaled steroids; Z79.52 Long term (current) use of systemic steroids; Z79.01 Long term (current) use of anticoagulants; Z87.891 Personal history of nicotine dependence; Z90.710 Acquired absence of both cervix and uterus; Z87.01 Personal history of pneumonia (recurrent); Z86.711 Personal history of pulmonary embolism
CPT/HCPCS: 36415; 71046; 80053; 83605; 83735; 85025; 85610; 85730; 87040; 87804; 93041; 94640

== ENCOUNTER 2018-07-30 09:02 | Emergency (ER) | payer MEDICAID ==
[~2018-07-30] VITALS: Ht 165.1 cm; Wt 84.8 kg
[~2018-07-30 09:02] MED LIST changes: +BALO40TA PO; +D-ME118S7 PO; +OSLT75C PO
--- OUTSIDE RECORDS SUMMARY | 2018-07-30 09:09 | XMS REPORT | Encounter Summary ---
Author Author [facility] Organization [facility] Address Unknown Phone Unavailable Care Team Providers Care Bale Stacker Name Role Phone Jay Rogers MD PCP Joshua Ku MD Unavailable Reason for Visit * Reason Comments General Question Encounter Details Care Team Description Date Type Department Joshua Ku MD [address] [facility] [place] [address] General Question 07/02/2018 Telephone [facility] Physicians - V[facility] [address] [place] [address] Social History Date Tobacco Use [...] - Ifeanyi Silveira - 07/02/2018 3:42 PM SUBSTATION OPERATOR APPRENTICE Answered all of patient's questions to satisfaction. She is ok to move to 2pm for procedures on 07/03 TATION OPERATOR APPRENTICE * Telephone Encounter - Joseline Calabrese - 07/02/2018 1:56 PM SUBSTATION OPERATOR APPRENTICE Who is calling? Sujey Rojocher What is [...] before sending: yes Call Back phone number: [phone] TATION OPERATOR APPRENTICE * Telephone Encounter - Roselyn Dudley - 07/02/2018 11:33 AM SUBSTATION OPERATOR APPRENTICE Pt is returning call to Annie Salas, Please call pt at [phone] TATION OPERATOR APPRENTICE * Telephone Encounter - Annie Brooks, RN - 07/02/2018 11:25 AM SUBSTATION OPERATOR APPRENTICE LM for pt to return call TATION OPERATOR APPRENTICE * Telephone Encounter - Andie Carrillo - 07/02/2018 8:14 AM SUBSTATION OPERATOR APPRENTICE Pt called wanting to know which leg [...] She would like a call back at [phone] TATION OPERATOR APPRENTICE in this encounter Plan of Treatment Not on fileas of this encounter Visit Diagnoses Not on filein this encounter
--- OUTSIDE RECORDS SUMMARY | 2018-07-30 09:09 | XMS REPORT | Encounter Summary ---
Author Author [facility] Organization [facility] Address Unknown Phone Unavailable Care Team Providers Care Makeup Sales Advisor Name Role Phone Jay Rogers MD PCP Joshua Ku MD Unavailable Reason for Visit * Reason Comments Surgical Followup Encounter Details Care Team Description Date Type Department Joshua Ku MD [address] [facility] [place] [address] Surgical Followup 07/11/2018 Telephone [facility] Physicians - [facility] [address] [place] [address] Social History Date Tobacco Use [...] Annie Brooks RN - 07/14/2018 8:42 AM PAYMASTER OF PURSES Pt presented for a post operative ultrasound [...] she becomes symptomatic to DVT or PE. ASTER OF PURSES in this encounter Plan of Treatment Not on fileas of this encounter Visit Diagnoses Not on filein this encounter
--- OUTSIDE RECORDS SUMMARY | 2018-07-30 09:09 | XMS REPORT | Encounter Summary ---
Author Author [facility] Organization [facility] Address Unknown Phone Unavailable Care Team Providers Care Sole Rounder Name Role Phone Jay Rogers MD PCP Joshua Ku MD Unavailable Reason for Visit * Reason Comments Varicose Vein Encounter Details Care Team Description Date Type Department Varicose veins of lower extremities with complications, bilateral 07/11/2018 Clinical [facility] Physicians - [facility] [address] [place] [address] Social History Date Tobacco Use Types [...]
--- OUTSIDE RECORDS SUMMARY | 2018-07-30 09:09 | XMS REPORT | Encounter Summary ---
Author Author [facility] Organization [facility] Address Unknown Phone Unavailable Care Team Providers Care Print Developer Automatic Name Role Phone Jay Rogers MD PCP Joshua Ku MD Unavailable Reason for Visit * Reason Comments Procedure right great saphenous endovenous ablation with right leg microphlebectomy * Outpatient Surgery (Routine) Referred By Contact Referred To Contact Status Reason Specialty Diagnoses / Procedures Joshua Ku MD [address] [facility] [place] [address] Joshua Ku MD [address] [facility] [place] [address] Authorized Vascular Surgery Diagnoses Varicose veins of right lower extremity with other complications Varicose veins of left lower extremity with other complications Other specified soft tissue disorders Other primary thrombophilia ([facility]) i83.891 i83.892 m79.89 d68.59 P rocedures [place] ENDOVEN ABLTJ INCMPTNT VEIN XTR RF 1ST VEIN [place] STAB PHLEBT VARICOSE VEINS 1 XTR 10-20 STAB INCS [place] STAB PHLEBT VARICOSE VEINS 1 XTR > 20 INCS 1. dre right gsv, mp >20 2. dre left gsv, mp >20 Encounter Details Care Team Description Date Type Department Joshua Ku MD [address] [facility] [place] [address] [phone] Varicose veins of right lower extremity with pain (Primary Dx) 07/03/2018 Procedure visit [facility] Physicians - V[facility] [address] [place] [address] Social History Date Tobacco Use [...] Ines Sandoval Sherine - 07/03/2018 2:00 PM TELEPHONE SURVEYOR [facility] [address] [place], [place] [address] Instructions following Vein Procedure 1. If you [...] Joshua Ku MD was your doctor today. PHONE SURVEYOR in this encounter Progress Notes * Joshua Ku MD - 07/03/2018 2:00 PM TELEPHONE SURVEYOR OPERATIVE REPORT/RADIOFREQUENCY ABLATION w/MP Date: 07/03/2018 Patient: [...] Surgeon: Joshua Ku MD M.D., F.A.C.S., R.P.V.I. Skin Fitter(s): Annie Brooks R.N.-B.S.NCamryn and Maria Ines Sandoval Patient Project Accountant/ORA Medications: Xanax 1mg Emla cream - 30 [...] right lower extremity with pain - Primary PHONE SURVEYOR in this encounter Plan of Treatment Not on fileas of this encounter Visit Diagnoses Diagnosis Varicose veins of right lower extremity with pain - Primary Varicose veins of lower extremities with other complications in this encounter
--- OUTSIDE RECORDS SUMMARY | 2018-07-30 09:09 | XMS REPORT | Encounter Summary ---
Author Author [facility] Organization [facility] Address Unknown Phone Unavailable Care Team Providers Care Front End Loader Operator Name Role Phone Jay Rogers MD PCP Joshua Ku MD Unavailable Reason for Visit * Reason Comments Procedure left great saphenous endovenous ablation with left leg microphlebectomy Encounter Details Care Team Description Date Type Department Joshua Ku MD [address] [facility] [place] [address] Varicose veins of left lower extremity with other complications 07/04/2018 Procedure visit [facility] Physicians - [facility] [address] [place] [address] Social History Date Tobacco Use [...] Maria Ines Sandoval - 07/04/2018 11:00 AM BOBBIN DUMPER [facility] [place] [facility] [address] [place], [place] [address] Instructions following Vein Procedure 1. [...] Joshua Ku MD was your doctor today. IN DUMPER in this encounter Progress Notes * Joshua Ku MD - 07/04/2018 11:00 AM BOBBIN DUMPER OPERATIVE REPORT/RADIOFREQUENCY ABLATION w/MP Date: 07/04/2018 Patient: [...] Surgeon: Joshua Ku MD M.D., F.BienvenidoS., R.P.V.I. Berry Planter(s): Linsey Keith and Maria Ines Sandoval Patient Button Riveter/ORA Medications: Xanax 1mg Emla cream - 30 [...] Problem List Items Addressed This Visit None IN DUMPER in this encounter Plan of Treatment Not on fileas of this encounter Visit Diagnoses Diagnosis Varicose veins of left lower extremity with other complications in this encounter
--- OUTSIDE RECORDS SUMMARY | 2018-07-30 09:09 | XMS REPORT | Encounter Summary ---
Author Author [facility] Organization [facility] Address Unknown Phone Unavailable Care Team Providers Care Diaper Machine Tender Name Role Phone Jay Rogers MD PCP Joshua Ku MD Unavailable Encounter Details Care Team Description Date Type Department Shanthi Topete, CABLE PULLER [address] [facility] [place] [address] Leg swelling (Primary Dx); Varicose veins of left lower extremity with other complications 07/09/2018 Orders Only [facility] Physicians - [facility] [address] [place] [address] Social History Date Tobacco Use [...] Date/Time Associated Diagnosis US DOPPLER VENOUS Routine 07/21/2018 Leg swelling BILATERAL Varicose veins of left lower extremity with other complications in this encounter Results * US DOPPLER VENOUS BILATERAL (07/21/2018) Narrative Performed At Performing Organization Address City/State/Zipcode Phone Number [facility] in this encounter Visit Diagnoses Diagnosis Leg swelling - Primary Swelling of limb Varicose veins of left lower extremity with other complications in this encounter
--- OUTSIDE RECORDS SUMMARY | 2018-07-30 09:09 | XMS REPORT | Encounter Summary ---
Author Author [facility] Organization [facility] Address Unknown Phone Unavailable Care Team Providers Care Risk Compliance Analyst Name Role Phone Jay Rogers MD PCP Joshua Ku MD Unavailable Reason for Visit * Reason Comments General Question General Question Encounter Details Care Team Description Date Type Department Joshua Ku MD [address] [facility] [place] [address] General Question; General Question 07/07/2018 Telephone [facility] Physicians - V[facility] [address] [place] [address] Social History Date Tobacco Use [...] Annie Brooks RN - 07/08/2018 10:20 AM PSYCHIATRIC ATTENDANT Spoke with pt, we spoke at length yesterday regarding her concerns, I called her from home as I was not in the office. The patient is hospitalized for unrelated issues, sinus infection, trouble breathing, low O2 sats. I did advise pt that sutures can wait to come out a bit longer. Her post scan has been rescheduled to Tuesday 07/11 HIATRIC ATTENDANT * Telephone Encounter - Joseline Calabrese - 07/08/2018 8:04 AM PSYCHIATRIC ATTENDANT Who is calling? Sujey Feliz What is the patients need/concern? PATIENT CALLED AND STATED THAT SHE HAS BEEN ADMITTED INTO THE [facility] IN [place], [place]. PATIENT STATES THAT SHE HAS AN [...] before sending: yes Call Back phone number: [phone] HIATRIC ATTENDANT * Telephone Encounter - Roselyn Dudley - 07/07/2018 9:05 AM PSYCHIATRIC ATTENDANT Who is calling? Sujey Feliz What is [...] hospital was the patient seen at? [facility] Are there any other needs/concerns the patient has? no If yes, description of concern: Expected response time frame given to patient: 24 hours Read back to patient before sending: yes Call Back phone number: [phone] HIATRIC ATTENDANT in this encounter Plan of Treatment Not on fileas of this encounter Visit Diagnoses Not on filein this encounter
--- OUTSIDE RECORDS SUMMARY | 2018-07-30 09:09 | XMS REPORT | Encounter Summary ---
Author Author [facility] Organization [facility] Address Unknown Phone Unavailable Care Team Providers Care Household Appliance Mechanic Name Role Phone Jay Rogers MD PCP Joshua Ku MD Unavailable Reason for Visit * Reason Comments Prior Authorization Prior Authorization Encounter Details Care Team Description Date Type Department Joshua Ku MD [address] [facility] [place] [address] Prior Authorization; Prior Authorization 06/03/2018 Telephone [facility] - [facility] [address] [place] [address] Social History Date Tobacco Use [...] - Stella Anderson - 06/10/2018 3:25 PM FISH AND GAME CLUB MANAGER Patient is going to be approved for ablation. MARKETING ADMINISTRATOR OVERTURNED THE DECISION OF MEDICAL POLICY. Referral in chart. AND GAME CLUB MANAGER * Telephone Encounter - Stella Anderson - 06/10/2018 2:21 PM FISH AND GAME CLUB MANAGER Spoke with patient, she is faxing me a letter. I have also left a message for insurance rep Kesha. I need to speak with her. AND GAME CLUB MANAGER * Telephone Encounter - Roselyn Dudley - 06/10/2018 9:18 AM FISH AND GAME CLUB MANAGER Who is calling? Sujey Feliz What is [...] before sending: yes Call Back phone number: [phone] AND GAME CLUB MANAGER * Telephone Encounter - Joseline Calabrese - 06/09/2018 4:00 PM FISH AND GAME CLUB MANAGER Who is calling? Sujey Feliz What is [...] before sending: yes Call Back phone number: [phone] AND GAME CLUB MANAGER * Telephone Encounter - Stella Anderson - 06/09/2018 12:46 PM FISH AND GAME CLUB MANAGER Spoke with patient, she called and stated [...] have MPs. But ablations will be OOP. AND GAME CLUB MANAGER * Telephone Encounter - Doris Bowie RN - 06/04/2018 8:40 AM FISH AND GAME CLUB MANAGER Dr. Bass, Patient insurance doesn't cover ablations. [...] in care credit to cover her procedures. AND GAME CLUB MANAGER * Telephone Encounter - Stella Anderson - 06/03/2018 3:30 PM FISH AND GAME CLUB MANAGER Patient was approved for MPs with Medicaid. Ablations are not a covered benefits. Pt will have to pay OOP for those. I have quoted her for ablations. She would like to speak with a nurse regarding how to proceed with procedures. Please call back at [phone] AND GAME CLUB MANAGER in this encounter Plan of Treatment Not on fileas of this encounter Visit Diagnoses Not on filein this encounter
--- OUTSIDE RECORDS SUMMARY | 2018-07-30 09:09 | XMS REPORT | Encounter Summary ---
Author Author [facility] Organization [facility] Address Unknown Phone Unavailable Care Team Providers Care Rn Interventional Name Role Phone Jay Rogers MD PCP [...] Date Type Department Joshua Ku MD [address] [facility] [place] [address] General Question (Pt wanted to know could she be re submitted to Insurance for vein procedure. Was advised maybe we didnt send all clinical info for it. She asked to recieve a call back to go over options.) 06/09/2018 Telephone [facility] Physicians - [facility] [address] [place] [address] Social History Date Tobacco Use [...] Encounter - Ifeanyi Silveira 06/13/2018 11:25 AM HEARINGS REPORTER R/S pt. For 07/03 and 07/04 INGS REPORTER * Telephone Encounter - Roselyn Dudley - 06/13/2018 10:28 AM HEARINGS REPORTER Pt needs to reschedule her vein procedure due to not having transportation. If time is available for Dr. Oswald, pt is thinking of the following week. Please call [phone] INGS REPORTER * Telephone Encounter - Stella Anderson - 06/09/2018 12:47 PM HEARINGS REPORTER Notes in original telephone encounter regarding matter. INGS REPORTER * Telephone Encounter - Angela Roberson - 06/09/2018 12:09 PM HEARINGS REPORTER Pt wanted to know could she be re submitted to Insurance for vein procedure. Was advised maybe we didnt send all clinical info for it. She asked to recieve a call back to go over options. INGS REPORTER in this encounter Plan of Treatment Not on fileas of this encounter Visit Diagnoses Not on filein this encounter
--- OUTSIDE RECORDS SUMMARY | 2018-07-30 09:09 | XMS REPORT | Clinical Summary ---
Author Author [facility] Organization [facility] Address Unknown Phone Unavailable Care Team Providers Care Alarm Signaler Name Role Phone Jay Rogers MD PCP Joshua Ku MD Unavailable Source Comments Some departments are not documenting in the electronic medical record. If you do not see the information that you expected, contact Release of Information in the Health Information Management department at [phone] for further assistance in locating additional records.[facility] Allergies Comments Active Allergy Reactions Severity Noted [...] Authorization (please precert) 05/02/2018 Telephone Vascular Surgery from Last 3 Months Family [...] Taken Vital Sign Reading 04/29/2018 11:50 AM BIOMEDICAL ANALYTICAL SCIENTIST Blood Pressure 110/72 - Pulse - - Temperature - - Respiratory Rate - - Oxygen Saturation - - Inhaled Oxygen - Concentration 04/29/2018 11:50 AM BIOMEDICAL ANALYTICAL SCIENTIST Weight 83.9 kg (185 lb) 04/29/2018 11:50 AM BIOMEDICAL ANALYTICAL SCIENTIST Height 165.1 cm (5' 5") 04/29/2018 11:50 AM BIOMEDICAL ANALYTICAL SCIENTIST Body Mass Index 30.79 Plan of [...] of left lower extremity with other complications US DOPPLER VENOUS Routine 05/02/2018 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 Narrative Performed At Performing Organization Address City/State/Zipcode Phone Number [facility] from Last 3 Months Insurance Payer Benefit Subscriber ID Type Phone Address Plan / Group [employer] MEDICAID AETNA xxxxxxxxxxx [facility] Advance Directives Patient has advance care planning documents on file. For more information, please contact: [facility] [address] [place] [address]
--- OUTSIDE RECORDS SUMMARY | 2018-07-30 09:09 | XMS REPORT | Encounter Summary ---
Author Author [facility] Organization [facility] Address Unknown Phone Unavailable Care Team Providers Care Artillery Maintenance Supervisor Name Role Phone Jay Rogers MD PCP Joshua Ku MD Unavailable Reason for Visit * Reason Comments Surgery Encounter Details Care Team Description Date Type Department Joshua Ku MD [address] [facility] [place] [address] 06/11/2018 Refill [facility] Physicians - [facility] [address] [place] [address] Social History Date Tobacco Use [...]
--- OUTSIDE RECORDS SUMMARY | 2018-07-30 09:10 | XMS REPORT | Encounter Summary ---
Author Author [facility] Organization [facility] Address Unknown Phone Unavailable Care Team Providers Care Gear Room Keeper Name Role Phone Jay Rogers MD PCP Joshua Ku MD Unavailable Encounter Details Care Team Description Date Type Department Aide Oswald MD [address] [facility] [place] [address] 05/26/2018 Telephone [facility] Phys[facility] - [facility] [address] [place] [address] Social History Date Tobacco Use [...] - Stella Anderson - 05/29/2018 8:32 AM SPRINKLER INSTALLER They just don't, that's their policy. NKLER INSTALLER * Telephone Encounter - Andie Carrillo - 05/29/2018 8:09 AM SPRINKLER INSTALLER I am waiting for a fax or letter to specify. I am not sure about the MP's. Would you suggest I call about it? Why does Medicaid not approve ablations? NKLER INSTALLER * Telephone Encounter - Stella Anderson - 05/28/2018 11:34 AM SPRINKLER INSTALLER This is pretty typical with Medicaid. Did our 55318/73228 codes get approved? NKLER INSTALLER * Telephone Encounter - Clarisa Hutchinson - 05/26/2018 3:36 PM SPRINKLER INSTALLER [employer]ET[employer] INFORMING CPT 08792 IS NOT AUTHORIZED UNDER [place] MEDICAID - CALL REP MARTHA AT [phone] FOR MORE INFORMATION BEFORE THE MED DIRECTOR HAS TO REVIEW NKLER INSTALLER in this encounter Plan of Treatment Not on fileas of this encounter Visit Diagnoses Not on filein this encounter
--- OUTSIDE RECORDS SUMMARY | 2018-07-30 09:10 | XMS REPORT | Encounter Summary ---
Author Author [facility] Organization [facility] Address Unknown Phone Unavailable Care Team Providers Care Jig Builder Helper Name Role Phone Jay Rogers MD PCP Joshua Ku MD Unavailable Reason for Visit * Reason Comments Prior Authorization please precert Encounter Details Care Team Description Date Type Department Joshua Ku MD [address] [facility] [place] [address] Prior Authorization (please precert) 05/02/2018 Telephone [facility] Phys[facility] - [facility] [address] [place] [address] Social History Date Tobacco Use [...] - Andie Carrillo - 05/08/2018 4:32 PM BAR TACKER SEWING MACHINE REF IN CHART TACKER SEWING MACHINE * Telephone Encounter - Annie Brooks RN - 05/08/2018 11:10 AM BAR TACKER SEWING MACHINE Pt has worn compression for greater than 3 months without relief of symptoms. Spoke with pt regarding Dr. Bass's recommendations. Pt understands and would like to proceed with procedures. She is ready for precert 1. dre right gsv, mp >20 2. dre left gsv, mp >20 TACKER SEWING MACHINE * Telephone Encounter - Annei Brooks RN - 05/02/2018 11:53 AM BAR TACKER SEWING MACHINE ----- Message from Joshua Ku MD sent at 05/02/2018 11:53 AM BAR TACKER SEWING MACHINE ----- 1. dre right gsv, mp >20 2. dre left gsv, mp >20 TACKER SEWING MACHINE in this encounter Plan of Treatment Not on fileas of this encounter Visit Diagnoses Not on filein this encounter
[2018-07-30 10:06] LABS: BILIRUBIN,URINE NEGATIVE (NEGATIVE); CLARITY,URINE CLEAR; COLOR,URINE YELLOW; GLUCOSE, URINE (UA) NEGATIVE (NEGATIVE); KETONES,URINE NEGATIVE (NEGATIVE); LEUKOCYTE ESTERASE ,URINE 3+ (NEGATIVE); NITRITE,URINE NEGATIVE (NEGATIVE); PH,URINE 5 (5-9); PROTEIN,URINE NEGATIVE (NEGATIVE); UROBILINOGEN,URINE 1 MG/DL (NORMAL)
[2018-07-30 10:21] LABS: BACTERIA,URINE FEW /HPF; SQUAMOUS EPITHELIAL CELL,UR 0-2 /HPF
[2018-07-30] MEDS ORDERED: NS IV ONE (11:30)
--- NOTE | 2018-07-30 11:33 | ED Abdominal Pain ---
General Chief Complaint: General Problems/Pain Stated Complaint: LT GROIN PAIN Nursing Triage Note: TO ROOM AMB REPORTS FOR A WHILE HAS HAD L FLANK PAIN LAST SEVERAL DAYS HAS GO WORSE PMH OF KIDNEY STONES Sepsis Screen: No Definite Risk History of Present Illness Date Seen by Provider: Jul 30, 2018 Time Seen by Provider: 11:05 Initial Comments 57-year-old female with multiple medical problems presents for abdominal pain. She reports the pain has been present for at least 3-4 days, it has progressively gotten worse it started on the RLQ and is now radiating across her abdomen to the LLQ. She has no associated nausea, vomiting, diarrhea , or constipation. She reports a small bowel movement this morning. She last ate at 1800 yesterday. She is on hydrocodone 10/325 mg chronically for back problems. She has not taken one for 2-3 days. She is rating her pain at a 7/10. Her last colonoscopy was approximately 2-[address] PHILIP. She was treated for influenza approximately 10 days ago. She also had radiofrequency ablation on her lower extremities and was required to lie flat for the procedure which precipitated her back pain and she believes started her abdominal pain. She had a cholecystectomy and hysterectomy. No hx of appendectomy. Timing/Duration: 3-4 Days Severity/Quality: Mild Location: RLQ, LLQ Radiation: No Radiation Associated Symptoms: Denies Symptoms Allergies and Home Medications Allergies Coded Allergies: aspirin (Verified Allergy, Severe, ANAPHYLAXIS, 08/07/17) ibuprofen (Verified Allergy, Severe, ANAPHYLAXIS, 08/07/17) ketorolac (Verified Allergy, Severe, ANAPHYLAXIS, 08/07/17) tetanus and diphtheria toxoids (Unverified Allergy, Severe, ANAPHYLAXIS, ) aloe (Verified Allergy, Mild, RASH, 08/07/17) latex (Verified Allergy, Mild, RASH, 08/07/17) OCCASIONALLY IS IRRITATING SKIN scopolamine (Verified Allergy, Mild, 08/07/17) iodine (Verified Adverse Reaction, Unknown, 08/07/17) Patient states she got dizzy, diaphoretic and saw stars. Uncoded Allergies: ALOE VERA (Allergy, Unknown, 12/23/05) SILK SUTURES (Adverse Reaction, Unknown, BODY REJECTS SUTURES, 10/07/13) Home Medications Albuterol Sulfate 2.5 Mg/3 Ml Vial.neb, 2.5 MG NEB TID, (Reported) MIXES WITH IPRATROPIUM SOLUTION Albuterol Sulfate 8.5 Gm Hfa.aer.ad, 2 PUFF IH Q4H PRN for SHORTNESS OF BREATH, (Reported) Albuterol Sulfate 2.5 Mg/3 Ml Vial.neb, 2.5 MG NEB Q2H PRN for SHORTNESS OF BREATH, (Reported) Alprazolam 1 Mg Tablet, 1 MG PO Q8H PRN for ANXIETY, (Reported) Baloxavir Marboxil 40 Mg Tablet, 80 MG PO ONCE Prescribed by: STEPHANIE ECKERT on 07/18/18252 Benzonatate 100 Mg Capsule, 1-2 TAB PO TID Prescribed by: STEPHANIE ECKERT on 07/18/18252 Calcium Carbonate/Vitamin D3 1 Each Tablet, 1 TAB PO BID, (Reported) Cefdinir 300 Mg Capsule, 300 MG PO BID Prescribed by: STEPHANIE GREENWOOD on 07/30/18 124 D-Methorphan Hb/Prometh HCl 118 Ml Syrup, 1-2 TSP PO Q4H Prescribed by: STEPHANIE ECKERT on 07/18/18252 Furosemide 80 Mg Tablet, 40 MG PO DAILY, (Reported) TAKES 1/2 (80MG) TABLET Hydrocodone/Acetaminophen 1 Each Tablet, 1 TAB PO Q6H PRN for PAIN-MODERATE, ( Reported) Hyoscyamine Sulfate 0.125 Mg Tab.rapdis, 0.125 MG SL Q6H PRN for ABDOMINAL PAIN, (Reported) Ipratropium [place] 0.2 Mg/1 Ml Solution, 1 VIAL NEB TID, (Reported) MIXES WITH ALBUTEROL SOLUTION Loratadine 10 Mg Tablet, 10 MG PO DAILY, (Reported) Montelukast Sodium 10 Mg Tablet, 10 MG PO HS, (Reported) Oseltamivir Phosphate 75 Mg Cap, 75 MG PO BID Prescribed by: STEPHANIE ECKERT on 07/18/18252 Pantoprazole Sodium 40 Mg Tablet.dr, 40 MG PO DAILY, (Reported) Potassium Chloride 10 Meq Tablet.er, 20 MEQ PO BID, (Reported) TAKES 2 (10 MEQ) TABLETS Prednisone 20 Mg Tab, 20 MG PO DAILY Take 3 tabs(60mg)daily,decrease by 1/2 tab(10mg)every other day. Prescribed by: LEAH WOLF on 07/09/18 1258 Prednisone 5 Mg Tablet, 5 MG PO UD 12 PILLS DAY 1, THEN DECREASE BY 1 PILL A DAY UNTIL GONE Prescribed by: STEPHANIE ECKERT on 07/18/18 0253 Promethazine HCl 25 Mg Tablet, 25 MG PO Q6H PRN for NAUSEA/VOMITING-2ND LINE, ( Reported) Warfarin Sodium 4 Mg Tablet, 4 MG PO 1800, (Reported) Patient Home Medication List Home Medication List Reviewed: Yes Review of Systems Review of Systems Constitutional: no symptoms reported, see HPI Gastrointestinal: See HPI, Abdominal Pain; Denies Constipated, Denies Diarrhea , Denies Nausea, Denies Poor Appetite, Denies Poor Fluid Intake, Denies Rectal Bleeding, Denies Vomiting 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: See HPI; Denies Frequency, Denies Flank Pain, Denies Hematuria, Denies Pain, Denies Urgency All Other Systems Reviewed Negative Unless Noted: Yes Past Agyosiw-Pjlqdn-Ttkgpa Hx Past Med/Social Hx: Reviewed Nursing Past Med/Soc Hx Patient Social History Alcohol Use: Denies Use Recreational Drug Use: No (15 yrs ago---IV drug user including Cocaine-CLEAN SINCE 1994) Drug of Choice: + IV COCAINE USE Smoking Status: Former Smoker Type Used: Cigarettes Former Smoker, Quit: Nov 17, 2000 2nd Hand Smoke Exposure: No Recent Foreign Travel: No Contact w/Someone Who Travel: No Recent Infectious Disease Expo: No Recent Hopitalizations: No Immunizations Up To Date Tetanus Booster (TDap): Unknown PED Vaccines UTD: No Date of Pneumonia Vaccine: Jul 08, 2012 Date of Influenza Vaccine: Mar 11, 2012 Seasonal Allergies Seasonal Allergies: Yes Past Medical History Surgeries: Yes Abdominal, Adenoidectomy, Section, Gallbladder, Hysterectomy, Orthopedic, Tonsillectomy, Vascular Surgery Respiratory: Yes (O2 AT HS 2-3L/NC AND PRN--NOCTURNAL HYPOXIA; ) Asthma, Pneumonia, Chronic Bronchitis, Pulmonary Embolism, COPD Currently Using CPAP: No Currently Using BIPAP: No Cardiac: Yes Chronic Edema/Swelling, Deep Vein Thrombosis, High Cholesterol, Hypertension, Peripheral Vascular Neurological: Yes Neuropathy 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 Disorders: No 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 Disorders: Denies [employer] DEVEL[employer] History: Hysterectomy, Menopausal Sexually Transmitted Disease: No HIV/AIDS: No 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: Yes Kidney Infection, Bladder Infection, Kidney Stones Gastrointestinal: Yes (MULTIPLE HERNIA REPAIRS; MULTIPLE EGD'S /COLONOSCOPIES/ POLYPECTOMIES) Abdominal Hernia, Gastroesophageal Reflux, Chronic Constipation, Chronic Diarrhea, Hepatitis, Polyps, Hiatal Hernia, Gall Bladder Disease, Irritable Bowel Musculoskeletal: Yes Arthritis Endocrine: Yes ("PRE-DIABETIC" ) HEENT: Yes (NASAL POLYPS) Cataract Loss of Vision: Denies Hearing Impairment: Denies Cancer: No Did You Recieve Any Treatments: No Psychosocial: Yes Anxiety Integumentary: Yes (CHRONIC VENOUS STASIS DERMATITIS AND ULCERS. ) Recent Skin Changes Blood Disorders: Yes (DVT'S/PE'S; PROBABLE PROTEIN C DEFICIENCY) Adverse Reaction/Blood Tranf: No (HAS HAD BLOOD WITH NO PROBLEMS) Family Medical History Alcoholism Alcoholism Arthritis Asthma Cancer Cancer of colon Cancer of mouth Cardiovascular disease Cataract Cataracts Chest pain Colon cancer Completed stroke Diabetes mellitus Family history: Allergy Family history: Arthritis Family history: Asthma Family history: Cardiovascular disease Family history: Coronary thrombosis Family history: Diabetes mellitus Family history: Gastrointestinal disease Family history: Hypertension Family history: Thyroid disorder Headache Hearing loss Heart disease History of - anemia History of - respiratory disease Hypercholesterolemia Hypercholesterolemia Infertile Malignant neoplasm of lung Myocardial infarction Myocardial infarction Psychotic disorder Respiratory disorder Stroke No Family History of: AIDS Abdominal aortic aneurysm Abdominal aortic aneurysm [place]'s disease [place]'s disease Alzheimer's disease Aphasia Aphasia Congenital disease Congenital heart disease Congenital heart disease Congestive heart failure Coronary thrombosis Cystic fibrosis Cystic fibrosis Deafness or hearing loss Dementia Dementia Drug abuse Dysphagia Dysphasia Family history: Alzheimer's disease Family history: Breast disease Family history: Glaucoma Family history: Osteoporosis Fibrocystic disease of breast Gastroenteritis Glaucoma Headache disorder Hereditary disease History of - disorder History of drug abuse Human immunodeficiency virus (HIV) seropositivity Infertility Kidney disease Kidney disease Neoplasm Not obtainable due to adoption Osteoporosis Parkinson's disease Parkinson's disease Prostate cancer Psychosocial problem Seizure disorder Seizure disorder Severe allergy Thyroid disease Tuberculosis Tuberculosis Visual disorder Visual impairment Cancer, COPD, Vascular Disease Physical Exam Vital Signs Vital Signs - First Documented 07/30/18 07/30/18 09:15 12:53 Temp 99.8 Pulse 106 Resp 18 B/P (MAP) 118/76 (90) Pulse Ox 100 O2 Delivery Room Air Capillary Refill : Less Than 3 Seconds Height/Weight/BMI Height: 5'5.00" Weight: 187lbs. 3.0oz. 84.805936se; 32.8 BMI Method:Stated General Appearance: WD/WN, no apparent distress Neck: non-tender, full range of motion, supple, normal inspection Respiratory: chest non-tender, lungs clear, normal breath sounds Cardiovascular: normal peripheral pulses, regular rate, rhythm, no JVD, no murmur Gastrointestinal: normal bowel sounds, soft, distended; No guarding, No rebound ; tenderness (general lysed in the lower quadrants.); No hernia, No mass Back: normal inspection, no CVA tenderness Neurologic/Psychiatric: no motor/sensory deficits, alert, normal mood/affect, oriented x 3 Skin: normal color, warm/dry Progress/Results/Core Measures Results/Orders Lab Results Laboratory Tests Test 07/30/18 09:54 07/30/18 12:11 Range/Units Urine Color YELLOW Urine Clarity CLEAR Urine pH 5 5-9 Urine Specific [place] 1.020 1.016-1.022 Urine Protein NEGATIVE NEGATIVE Urine Glucose (UA) NEGATIVE NEGATIVE Urine Ketones NEGATIVE NEGATIVE Urine Nitrite NEGATIVE NEGATIVE Urine Bilirubin NEGATIVE NEGATIVE Urine Urobilinogen 1 NORMAL MG/DL Urine Leukocyte Esterase 3+ H NEGATIVE Urine RBC (Auto) 2+ H NEGATIVE Urine RBC NONE /HPF Urine WBC 5-10 H /HPF Urine Squamous Epithelial Cells 0-2 /HPF Urine Crystals NONE /LPF Urine Bacteria FEW H /HPF Urine Casts NONE /LPF Urine Mucus MODERATE H /LPF Urine Culture Indicated YES White Blood Count 9.0 4.3-11.0 10^3/uL Red Blood Count 3.97 L 4.35-5.85 10^6/uL Hemoglobin 11.5 11.5-16.0 G/DL Hematocrit 36 35-52 % Mean Corpuscular Volume 90 80-99 FL Mean Corpuscular Hemoglobin 29 25-34 PG Mean Corpuscular Hemoglobin Concent 32 32-36 G/DL Red Cell Distribution Width 15.0 H 10.0-14.5 % Platelet Count 267 130-400 10^3/uL Mean Platelet Volume 8.7 7.4-10.4 FL Neutrophils (%) (Auto) 68 42-75 % Lymphocytes (%) (Auto) 22 12-44 % Monocytes (%) (Auto) 7 0-12 % Eosinophils (%) (Auto) 2 0-10 % Basophils (%) (Auto) 0 0-10 % Neutrophils # (Auto) 6.1 1.8-7.8 X 10^3 Lymphocytes # (Auto) 2.0 1.0-4.0 X 10^3 Monocytes # (Auto) 0.7 0.0-1.0 X 10^3 Eosinophils # (Auto) 0.2 0.0-0.3 10^3/uL Basophils # (Auto) 0.0 0.0-0.1 10^3/uL Prothrombin Time 20.4 H 12.2-14.7 SEC INR Comment 1.7 H 0.8-1.4 Activated Partial Thromboplast Time 32 24-35 SEC Sodium Level 139 135-145 MMOL/L Potassium Level 3.9 3.6-5.0 MMOL/L Chloride Level 106 98-107 MMOL/L Carbon Dioxide Level 25 21-32 MMOL/L Anion Gap 8 5-14 MMOL/L Blood Urea Nitrogen 6 L 7-18 MG/DL Creatinine 0.62 0.60-1.30 MG/DL Estimat Glomerular Filtration Rate > 60 BUN/Creatinine Ratio 10 Glucose Level 90 70-105 MG/DL Calcium Level 9.2 8.5-10.1 MG/DL Corrected Calcium 9.5 8.5-10.1 MG/DL Total Bilirubin 0.5 0.1-1.0 MG/DL Aspartate Amino Transf (AST/SGOT) 15 5-34 U/L Alanine Aminotransferase (ALT/SGPT) 14 0-55 U/L Alkaline Phosphatase 69 40-136 U/L Total Protein 7.0 6.4-8.2 GM/DL Albumin 3.6 3.2-4.5 GM/DL Amylase Level 43 25-125 U/L Lipase 31 8-78 U/L My Orders Orders - TIMO,STEPHANIE UNIX CONSULTANT Saline Lock/Iv-Start (07/30/18 11:18) Amylase (07/30/18 11:18) Cbc With Automated Diff (07/30/18 11:18) Comprehensive Metabolic Panel (07/30/18 11:18) Lipase (07/30/18 11:18) Protime With Inr (07/30/18 11:18) Partial Thromboplastin Time (07/30/18 11:18) Saline Lock/Iv-Start (07/30/18 11:18) Ns Iv 1000 Ml (Sodium Chloride 0.9%) (07/30/18 11:30) Ns Iv 1000 Ml (Sodium Chloride 0.9%) (07/30/18 12:15) Acetaminophen Oral Solution (Tylenol Ora (07/30/18 12:36) Medications Given in ED Current Medications Medications Dose Ordered Sig/Nahomi Route Start Time Stop Time Status Last Admin Dose Admin Sodium Chloride 1,000 ml ONCE ONCE IV 07/30/18 12:15 07/30/18 12:17 DC 07/30/18 12:17 1,000 ML Vital Signs/I&O 07/30/18 07/30/18 09:15 12:53 Temp 99.8 Pulse 106 97 Resp 18 20 B/P (MAP) 118/76 (90) 119/85 (96) Pulse Ox 100 O2 Delivery Room Air Blood Pressure Mean: 90 Progress Progress Note : Time: 11:05 Progress Note Patient seen and evaluated, will complete a UA, CBC, CMP, PT/INR, 1 L normal saline per IV. Patient declined need for pain medication at this time. 1200 patient reports symptoms to be continuing. Discussed findings of UA suggestive of UTI which is probably the cause of her complaints. Awaiting her other labs. Continues to deny need for pain medication. 1230 labs within normal limits, INR 1.7, discussed this with the patient in the past she has increased her Coumadin to 5 mg for 2 days and then resumed her 4 mg and it gets her closer to the 2-2.5 range. We will follow this protocol and have her take Coumadin 5 mg for the next 2 days and then resume her 4 mg. She is to follow-up in one week with Dr. Wolf for INR. Discharge instructions and return precautions reviewed with her. Departure Impression Primary Impression: Pain in the abdomen Qualified Codes: R10.30 - Lower abdominal pain, unspecified Additional Impression: UTI (urinary tract infection) Qualified Codes: N30.01 - Acute cystitis with hematuria Disposition: HOME, SELF-CARE Condition: Improved Departure-Patient Inst. Decision time for Depature: 12:30 Referrals: LEAH WOLF MD (PCP/Family) Primary Care Physician Patient Instructions: Urinary Tract Infection, Adult (DC) Add. Discharge Instructions: Increase water intake, 8-16 ounces every 2 hours while awake. Continue to take her home medication as prescribed. Take a 5mg Coumadin tonight and tomorrow night, then resume 4 mg Coumadin daily. Follow-up with Dr. Wolf if symptoms are not improving or worsen, in 1 week for lab follow up. Take antibiotic as prescribed. Empty bladder every 2 hours while awake. Eat 1 cup of fresh blueberries or one cup of cranberry juice daily. Return to emergency department for increased abdominal pain, fever greater than 101 not relieved by Tylenol or ibuprofen, persistent nausea and vomiting, or new complaints. All discharge instructions reviewed with patient and/or family. Voiced understanding. Scripts Cefdinir (Cefdinir) 300 Mg Capsule 300 MG PO BID, #14 CAP 0 Refills Prov: STEPHANIE GREENWOOD 07/30/18 Copy Copies To 1: LEAH WOLF MD Copies To 2: TEDDY PHILIP MD, AMY ARNP Jul 30, 2018 11:32
[2018-07-30] MEDS ORDERED: NS 1000 ML IV BAG IV ONE (12:15)
[2018-07-30 12:23] LABS: BASOPHILS % (AUTO) 0 % (0-10); EOSINOPHILS # (AUTO) 0.2 10^3/uL (0.0-0.3); EOSINOPHILS % (AUTO) 2 % (0-10); HEMATOCRIT 36 % (35-52); HEMOGLOBIN 11.5 G/DL (11.5-16.0); LYMPHOCYTES % (AUTO) 22 % (12-44); MEAN CORPUSCULAR HEMOGLOBIN 29 PG (25-34); MEAN CORPUSCULAR HGB CONC 32 G/DL (32-36); MEAN CORPUSCULAR VOLUME 90 FL (80-99); MEAN PLATELET VOLUME 8.7 FL (7.4-10.4); MONOCYTES # (AUTO) 0.7 X 10^3 (0.0-1.0); MONOCYTES % (AUTO) 7 % (0-12); NEUTROPHILS # (AUTO) 6.1 X 10^3 (1.8-7.8); NEUTROPHILS % (AUTO) 68 % (42-75); PLATELET COUNT 267 10^3/uL (130-400)
[2018-07-30 12:36] LABS: INR 1.7 (0.8-1.4); PROTHROMBIN TIME PATIENT 20.4 SEC (12.2-14.7)
[2018-07-30] MEDS ORDERED: APAP 325 MG/10.15 ML LIQ (TYLENOL) UDC PO STA (12:36)
[2018-07-30 12:39] LABS: ALANINE AMINOTRANSFERASE 14 U/L (0-55); ALBUMIN 3.6 GM/DL (3.2-4.5); ALKALINE PHOSPHATASE 69 U/L (40-136); AMYLASE 43 U/L (25-125); BILIRUBIN,TOTAL 0.5 MG/DL (0.1-1.0); BUN/CREATININE RATIO 10; CALCIUM 9.2 MG/DL (8.5-10.1); CARBON DIOXIDE 25 MMOL/L (21-32); CHLORIDE 106 MMOL/L (98-107); CREATININE SERUM 0.62 MG/DL (0.60-1.30); GFR ESTIMATED > 60; GLUCOSE 90 MG/DL (70-105); LIPASE 31 U/L (8-78); POTASSIUM 3.9 MMOL/L (3.6-5.0); SODIUM 139 MMOL/L (135-145)
[2018-07-30] MEDS ORDERED: CEFD300C3 PO (12:43)
[2018-07-30 12:53] VITALS: BP 119/85
== END 2018-07-30 12:52 | disposition home or self-care (01) ==
LOC: EDUNIT# 09:02 → ER 09:04
DX: N39.0 Urinary tract infection, site not specified (principal); J44.9 Chronic obstructive pulmonary disease, unspecified; E78.00 Pure hypercholesterolemia, unspecified; I10 Essential (primary) hypertension; K21.9 Gastro-esophageal reflux disease without esophagitis; I73.9 Peripheral vascular disease, unspecified; F41.9 Anxiety disorder, unspecified; Z86.718 Personal history of other venous thrombosis and embolism; Z86.010 Personal history of colon polyps; Z80.0 Family history of malignant neoplasm of digestive organs; Z82.49 Family history of ischemic heart disease and other diseases of the circulatory system; Z87.442 Personal history of urinary calculi; Z87.19 Personal history of other diseases of the digestive system; Z86.711 Personal history of pulmonary embolism; Z88.6 Allergy status to analgesic agent; Z91.041 Radiographic dye allergy status; Z88.4 Allergy status to anesthetic agent; Z88.8 Allergy status to other drugs, medicaments and biological substances; Z79.51 Long term (current) use of inhaled steroids; Z79.01 Long term (current) use of anticoagulants; Z79.52 Long term (current) use of systemic steroids; Z90.49 Acquired absence of other specified parts of digestive tract; Z90.710 Acquired absence of both cervix and uterus; Z87.891 Personal history of nicotine dependence; Z98.890 Other specified postprocedural states; Z90.89 Acquired absence of other organs; Z87.01 Personal history of pneumonia (recurrent)
CPT/HCPCS: 36415; 80053; 81000; 82150; 83690; 85025; 85610; 85730; 87088; 96360

== ENCOUNTER → 2018-08-14 | Outpatient (CLI) | payer MEDICAID ==
--- NOTE | 2018-08-14 21:14 | Diagnostic Imaging Report ---
INDICATION: Routine screening. COMPARISON: Prior mammogram from 12/10/2016 and 12/08/2015. EXAMINATION: 2D and 3D bilateral screening mammography was performed with CAD. The current study was also evaluated with a Computer Aided Detection (CAD) system. FINDINGS: Scattered fibroglandular densities are identified, bilaterally. Benign-appearing parenchymal and vascular calcifications are noted. No mass or malignant appearing microcalcifications are seen. The axillae are unremarkable. IMPRESSION: No mammographic features suspicious for malignancy. ACR BI-RADS Category 2: Benign findings. Result letter will be mailed to the patient. Note: At least 10% of breast cancer is not imaged by mammography. Dictated by: Dictated on workstation # [id number]
== END ==
LOC: RAD 10:12
PROVIDERS: ATTEND Family Medicine
DX: Z12.31 Encounter for screening mammogram for malignant neoplasm of breast (principal)
CPT/HCPCS: 77067

== ENCOUNTER 2018-08-20 05:50 | Outpatient (CLI) | payer MEDICAID ==
[~2018-08-20] VITALS: Ht 165.1 cm; Wt 84.8 kg
[2018-08-21] MEDS ORDERED: CEFP500T4 PO (08:43)
[2018-08-21] MEDS ORDERED: ENOX40DI13 SQ (08:43)
[2018-08-21] MEDS ORDERED: PRD20T PO (08:43)
[2018-08-21] MEDS ORDERED: HYDR-34 PO (13:30)
== END 2018-08-20 13:36 | disposition home or self-care (01) ==
LOC: PREOP 05:50
PROVIDERS: ATTEND Surgery
DX: Z01.818 Encounter for other preprocedural examination (principal)

== ENCOUNTER 2018-08-21 11:52 | Day surgery (SDC) | payer MEDICAID ==
[~2018-08-21] VITALS: Ht 165.1 cm; Wt 84.0 kg
--- NOTE | 2018-08-21 08:45 | NUR ---
CALLED AND SPOKE WITH THE PATIENT ABOUT HER MEDICATIONS. SHE STATES NOTHING HAS CHANGED WITH HER MAINTENANCE MEDS SINCE HER LAST VISIT. SHE CONFIRMS SHE STILL MIXES HER ALBUTEROL AND IPRATROPIUM SOLUTION TOGETHER AND USES IT VIA NEBULIZER TID. SHE IS TAKING 1/2 TAB DAILY OF HER FUROSEMIDE 80MG. HER CURRENT JANTOVEN DOSE IS 4MG DAILY, SHE DID FILL SOME 5MG TABS BECAUSE OCCASIONALLY THEY WILL HAVE HER TAKE A DIFFERENT DOSE BUT IT IS 4MG CURRENTLY. SHE CONFIRMS SHE STILL IS OFF THE TRICOR, DEXILANT, AND DILTIAZEM. THEY WERE FILLED RIGHT AFTER HER LAST DISCHARGE IN JUN, SHE STATES THIS IS BECAUSE THEY ARE ON AUTO REFILL AND SHE CAN'T GET DILLONS TO CANCEL THAT SO THEY KEEP REFILLING. SHE IS CURRENTLY ON AN ANTIBIOTIC AND STEROID. SHE WAS ALSO TAKING LOVENOX IN PREPARATION FOR HER PROCEDURE. I VERIFIED WITH INGA THE STRENGTHS AND DIRECTIONS: 08-18-18 PREDNISONE 20MG 3 DAILY X 3, 2 DAILY X 3 1 DAILY X 3 THEN STOP 08-18-18 CEFPROZIL 500MG BID X 10 DAYS 08-11-18 LOVENOX 40MG BID X 7 DAYS
[~2018-08-21 11:52] MED LIST changes: +ENOX40DI13 SQ
[2018-08-21] MEDS ORDERED: FAMOTIDINE 20MG/2ML IV (PEPCID) IV ONE (12:30)
[2018-08-21] MEDS ORDERED: ONDANSETRON 4 MG/2 ML (SDV) Z0FRAN IV ONE (12:30)
[2018-08-21 13:00] VITALS: BP 129/91
[2018-08-21] MEDS ORDERED: ceFAZolin 2 GM IV Premixed 50 ML ONE (13:17)
[2018-08-21] MEDS: LACTATED RINGERS 1,000 ML IV PRN ×2 (13:26→16:25)
--- NOTE | 2018-08-21 13:28 | Progress Note-Pre Operative ---
Pre-Operative Progress Note H&P Reviewed The H&P was reviewed, patient examined and no changes noted. Date Seen by Provider: Aug 21, 2018 Time Seen by Provider: 13:15 Date H&P Reviewed: Aug 21, 2018 Time H&P Reviewed: 13:15 Pre-Operative Diagnosis: chronic lower abd quadrant pain, possible recurrent hernia vs. TEDDY Blackman MD Aug 21, 2018 13:28
[2018-08-21 13:29] LABS: PROTHROMBIN TIME PATIENT 13.5 SEC (12.2-14.7)
[2018-08-21] MEDS ORDERED: ACETAMINOPHEN 325 MG TABLET PO PRN (13:30)
[2018-08-21] MEDS ORDERED: HYDR-34 PO (13:30)
[2018-08-21] MEDS ORDERED: ONDANSETRON 4 MG/2 ML (SDV) Z0FRAN IVP PRN (13:30)
[2018-08-21] MEDS ORDERED: morphine INJ 10 MG/ML 1ML (SYR OR VIAL) IVP PRN (13:30)
--- NOTE | 2018-08-21 13:30 | Discharge Inst-Surgical ---
D/C Lap Instructions-ECDRICK New, Converted, or Re-Newed RX: RX on Chart Follow Up Appt in 2 weeks Activity as tolerated No driving for 24 hours No [address] while on pain medications Incentive Spirometry use every 2 hours while awake Regular Diet Symptoms to Report: Fever over 101 degree F, Nausea/Vomiting Infection Signs and Symptoms to report: Increased redness, Foul odor of wound, Increased drainage Bathing instructions: May shower Operative Area Clean/Dry; Keep incision clean/dry If any problems/questions: Contact your physician or go to Emergency Room TEDDY PHILIP MD Aug 21, 2018 13:30
[2018-08-21] MEDS ORDERED: BUP/EPI 0.5% 1:200,000 (SENSORCAINE) 30 ML VIAL ONE (13:36)
[2018-08-21] MEDS ORDERED: ceFAZolin 2 GM IV Premixed 50 ML IV ONE (14:00)
[2018-08-21] MEDS ORDERED: LIDOCAINE PF 2% 5 ML (XYLOCAINE) VIAL ONE (14:31)
[2018-08-21] MEDS ORDERED: fentaNYL INJECTION 100 MCG/2 ML AMP ONE (14:31)
[2018-08-21] MEDS ORDERED: proPOfol 200 MG/20 ML (DIPRIVAN) VIAL IV ONE (14:31)
[2018-08-21] MEDS ORDERED: ONDANSETRON 4 MG/2 ML (SDV) Z0FRAN ONE (14:31)
[2018-08-21] MEDS ORDERED: MIDAZOLAM 2 MG/2 ML (VERSED) VIAL ONE (14:31)
[2018-08-21] MEDS ORDERED: ROCURONIUM 10 MG/ML 5 ML SYRINGE IV ONE (14:31)
[2018-08-21] MEDS ORDERED: DEXAMETHASONE 10 MG/ML (DECADRON) 1 ML VIAL ONE (14:31)
[2018-08-21] MEDS ORDERED: SEVOFLURANE (ULTANE) 15 ML INHAL SOLN ONE ×5 (14:31→16:44)
[2018-08-21] MEDS ORDERED: HYDROmorphone 2 MG/ML VIAL (DILAUDID) IV ONE (16:00)
[2018-08-21] MEDS ORDERED: morphine INJ 10 MG/ML 1ML (SYR OR VIAL) IVP ONE (16:00)
[2018-08-21] MEDS ORDERED: PHENYLEPHRINE 100 MCG/ML 10 ML (ANESTHESIA) SYR ONE (16:16)
[2018-08-21] MEDS ORDERED: GLYCOPYRROLATE 0.2 MG/ML (ROBINUL) 2 ML VIAL ONE (16:42)
[2018-08-21] MEDS ORDERED: NEOSTIGMINE 1 MG/ML 5 ML SYRINGE ONE (16:42)
[2018-08-21] MEDS: ONDANSETRON 4 MG/2 ML (SDV) Z0FRAN IVP PRN ×2 (17:20→17:30)
--- NOTE | 2018-08-21 17:37 | Progress Note-Post Operative ---
Post-Operative Progess Note Surgeon (s)/Railroad Design Consultant (s) Surgeon TEDDY PHILIP MD Railroad Design Consultant: delia martinez BLEACH PACKER Pre-Operative Diagnosis chronic lower abd quadrant pain, possible recurrent hernia vs. spigellian Post-Operative Diagnosis intraabdominal adhesions, periumbilical incisional hernia. Procedure & Operative Findings Date of Procedure 08/21/18 Procedure Performed/Findings diagnostic laparoscopy, lysis of adhesions(90 min), periumbilical incisional hernia repair with mesh. Anesthesia Type GET Estimated Blood Loss Estimated blood loss (mL): minimal Specimens/Packing Specimens Removed none TEDDY PHILIP MD Aug 21, 2018 17:37
[2018-08-21 18:39] VITALS: BP 147/91
[2018-08-21 20:00] VITALS: BP 111/75
[2018-08-21] MEDS: oxyCODONE/APAP 5/325MG (PERCOCET 5) TABLET PO PRN (20:29)
[2018-08-22 00:22] VITALS: BP 107/70
[2018-08-22] MEDS: oxyCODONE/APAP 5/325MG (PERCOCET 5) TABLET PO PRN ×4 (00:24→18:45)
--- NOTE | 2018-08-22 01:25 | OPERATIVE REPORT ---
DATE OF SERVICE: 08/21/2018 ATTENDING PRIMARY CARE PHYSICIAN: Jay Rogers MD. PREOPERATIVE DIAGNOSIS: Persistent right lower abdominal quadrant pain, chronic periumbilical as well as right lateral abdominal wall pain. POSTOPERATIVE DIAGNOSIS: Small ventral abdominal incisional hernia from a previous trocar site of the umbilical region. No recurrent incisional hernia. Intraabdominal adhesions towards the previous large mesh. PROCEDURE: Lysis of adhesions which took approximately 60 to 90 minutes, laparoscopic ventral abdominal incisional hernia repair with mesh. SURGEON: Teddy Philip MD. PLASTIC FABRICATOR: Chip Holm APRN. ANESTHESIA: General endotracheal. ESTIMATED BLOOD LOSS: Minimal. FINDINGS: Significant omental adhesions to the previous large mesh of previous incisional hernia. There was an incisional hernia identified inferior to this region from a previous laparoscopic port site at the level of the umbilicus. There is nothing within the hernia sac. DISPOSITION: The patient tolerated the procedure well. INDICATIONS: The patient is a 57-year-old female known to us. We initially had seen her in 09/2014 for a fall. She has a history of protein C deficiency and is in a hypercoagulable state. She has had previous bilateral lower extremity DVTs as well as pulmonary embolism and is currently on Coumadin. She developed an area of pain as well as a small sinus tract in the area of previous incisional hernia repair. On 09/15/2015, she underwent exploration and debridement of a previous mesh, has repair of recurrent ventral abdominal incisional hernia with new mesh. This was a large defect approximately 5 x 5 cm in size and repaired with coated mesh. She does have a multitude of other medical issues and did present to the Emergency Department with lightheadedness and was found to have urinary tract infection, was also found to have deep vein thrombosis of the lower extremity. On 07/30/2017, she had reported some dark red or dark tarry stools as well as diarrhea and nausea and vomiting, underwent an EGD and colonoscopy, found to have reflux esophagitis stage II, small hiatal hernia 1 cm in size as well as a moderate gastritis. There was a colonoscopy revealed chronic stage II external and internal hemorrhoids as well as a severe sigmoid diverticulosis; however, no polyps identified. In the past few months, she has had increased discomfort just inferior and right lateral to the inferior pole of the previous hernia repair as well as near the umbilicus. Upon Valsalva, she does have a diastasis; however, no recurrent hernias. We thought that the location of the pain and tenderness was more along the lateral edge inferior to the umbilicus, which may indicate a hernia between the linea semilunaris and consistent with a spigelian hernia. She states she is otherwise eating well, having normal bowel movements and she does not show any signs of obstruction. DESCRIPTION OF PROCEDURE: The patient was brought to the operating room, laid supine on the table. After adequate IV pain and sedative medications and general endotracheal intubation, the abdomen was prepped and draped in standard surgical fashion. A 0.5% Marcaine with epinephrine was used to anesthetize the overlying skin in the left upper abdominal quadrant and a transverse skin incision made using a 15 blade. An 0 silk suture was applied to the medial aspect of the incision for retraction and the Veress needle was inserted with low opening pressure of 0 mmHg and the abdomen was insufflated to 15 mmHg pressure. Veress needle removed and a 5 mm Xcel trocar placed followed by a 5 mm 45-degree angle laparoscope visualizing the peritoneal cavity. A 4-quadrant abdominal exploration was performed. There were significant omental adhesions to the last incisional hernia repair with mesh identified; however, there was no recurrence of hernia within this region identified at this time; however, we cannot tell because there were dense adhesions of the omentum to the mesh. Another 5 mm port was placed in the left lower abdominal quadrant and we then proceeded with lysis of omental adhesions towards abdominal wall using the Sonicision in a meticulous fashion, which took approximately 60 to 90 minutes. Good hemostasis was observed. Once this was done, we were able to visualize the entire abdominal wall and a small hernia was identified in the area of the umbilicus most likely from a previous laparoscopic cholecystectomy in 2001. There was nothing within the hernia sac. The defect was small and approximately 1 cm in size. We then proceeded with laparoscopic repair of the incisional hernia. A small crescent-shaped supraumbilical skin incision was made after the skin and peritoneal lining were anesthetized using 0.5% Marcaine with epinephrine. A 6.4 coated polypropylene mesh was rolled up and pushed through the hernia defect under direct visualization in a double crown fashion method using absorbable tacks, the mesh was anchored to the fascia. Good hemostasis was observed. The abdomen was then desufflated and remaining ports removed. All skin incisions were closed using 4-0 Monocryl running subcuticular sutures. Wounds were then cleaned and covered with Dermabond. The patient tolerated the procedure well. We will admit her for 23-hour observation due to her history of protein C deficiency and hypercoagulable state as well as previous lower extremity DVTs and pulmonary embolism as well as COPD, asthma and hypertension. We will start IV and oral pain medication as well as a clear liquid diet and advance as tolerated. We will have her continue with her Lovenox injections as well as to restart her Coumadin normal dosing. She will also need breathing treatments for her COPD. Job ID: [id number] DocumentID: [id number] Dictated Date: 08/21/2018 17:05:58 Oral And Maxillofacial Pathologist Date: 08/22/2018 01:24:44 Dictated By: TEDDY PHILIP MD
[2018-08-22 04:00] VITALS: BP 123/77
[2018-08-22] MEDS ORDERED: predniSONE 20 MG TAB PO ONE (07:45)
--- NOTE | 2018-08-22 07:47 | Consultation ---
History of Present Illness History of Present Illness Patient Consulted On(crystal/time) 08/22/18 07:42 Date Seen by Provider: Aug 22, 2018 Time Seen by Provider: 07:15 Reason for Visit: S/P abdominal surgery lysis of adhesions as well as repair of ventral History of Present Illness 58-year-old female admitted August 21, 2018 for surgical correction of abdominal ventral hernia as well as evaluation for abdominal wall pain. She ultimately underwent lysis of adhesions to the abdominal wall as well as repair of ventral hernia with mesh. Patient has a history of COPD with asthma exacerbation. Typically following surgery she does have a tendency to have asthma exacerbation. Thus far she reports she has been doing fairly well postoperative day number 1. She also has history of PE has been taking Coumadin long-term basis. She had been taken off the Coumadin 5 days prior to surgery and injecting with Lovenox. Allergies and Home Medications Allergies Coded Allergies: aspirin (Verified Allergy, Severe, ANAPHYLAXIS, 08/07/17) ibuprofen (Verified Allergy, Severe, ANAPHYLAXIS, 08/07/17) ketorolac (Verified Allergy, Severe, ANAPHYLAXIS, 08/07/17) tetanus and diphtheria toxoids (Unverified Allergy, Severe, ANAPHYLAXIS, ) aloe (Verified Allergy, Mild, RASH, 08/07/17) latex (Verified Allergy, Mild, RASH, 08/07/17) OCCASIONALLY IS IRRITATING SKIN scopolamine (Verified Allergy, Mild, 08/07/17) iodine (Verified Adverse Reaction, Unknown, 08/07/17) Patient states she got dizzy, diaphoretic and saw stars. Uncoded Allergies: ALOE VERA (Allergy, Unknown, 12/23/05) SILK SUTURES (Adverse Reaction, Unknown, BODY REJECTS SUTURES, 10/07/13) Home Medications Albuterol Sulfate 2.5 Mg/3 Ml Vial.neb, 2.5 MG NEB TID, (Reported) MIXES WITH IPRATROPIUM SOLUTION Albuterol Sulfate 8.5 Gm Hfa.aer.ad, 2 PUFF IH Q4H PRN for SHORTNESS OF BREATH, (Reported) Albuterol Sulfate 2.5 Mg/3 Ml Vial.neb, 2.5 MG NEB Q2H PRN for SHORTNESS OF BREATH, (Reported) Alprazolam 1 Mg Tablet, 1 MG PO Q8H PRN for ANXIETY, (Reported) Calcium Carbonate/Vitamin D3 1 Each Tablet, 1 TAB PO BID, (Reported) Cefprozil 500 Mg Tablet, 500 MG PO BID, (Reported) 10 DAY SUPPLY FILLED 08-18-18 Enoxaparin Sodium 40 Mg/0.4 Ml Syringe, 40 MG SQ BID, (Reported) FILLED 08-11-18 (PLEASE UPDATE START DATE WITH PATIENT) Furosemide 80 Mg Tablet, 40 MG PO DAILY, (Reported) TAKES 1/2 (80MG) TABLET Hydrocodone Bit/Acetaminophen 1 Ea Tablet, 1 EACH PO Q4H PRN for PAIN-MODERATE Prescribed by: TEDDY PHILIP on 08/21/18 1330 Hydrocodone/Acetaminophen 1 Each Tablet, 1 TAB PO Q6H PRN for PAIN-MODERATE, ( Reported) Hyoscyamine Sulfate 0.125 Mg Tab.rapdis, 0.125 MG SL Q6H PRN for ABDOMINAL PAIN, (Reported) Ipratropium [place] 0.2 Mg/1 Ml Solution, 1 VIAL NEB TID, (Reported) MIXES WITH ALBUTEROL SOLUTION Loratadine 10 Mg Tablet, 10 MG PO DAILY, (Reported) Montelukast Sodium 10 Mg Tablet, 10 MG PO HS, (Reported) Pantoprazole Sodium 40 Mg Tablet.dr, 40 MG PO DAILY, (Reported) Potassium Chloride 10 Meq Tablet.er, 20 MEQ PO BID, (Reported) TAKES 2 (10 MEQ) TABLETS Prednisone 20 Mg Tab, PO UD, (Reported) TAKE 3 (20MG) TABS DAILY X 3 DAYS TAKE 2 (20MG) TABS DAILY X 3 DAYS TAKE 1 ( 20MG) TAB DAILY X 3 DAYS FILLED 08-18-18 Promethazine HCl 25 Mg Tablet, 25 MG PO Q6H PRN for NAUSEA/VOMITING-2ND LINE, ( Reported) Warfarin Sodium 4 Mg Tablet, 4 MG PO 1800, (Reported) Patient Home Medication List Home Medication List Reviewed: Yes Past Ynuzcfn-Ylsdwj-Dthegy Hx Patient Social History Alcohol Use: Denies Use Recreational Drug Use: No (15 yrs ago---IV drug user including Cocaine-CLEAN SINCE 1994) Drug of Choice: + IV COCAINE USE Type Used: Cigarettes Former Smoker, Quit: Nov 17, 2000 2nd Hand Smoke Exposure: No Recent Foreign Travel: No Contact w/Someone Who Travel: No Recent Infectious Disease Expo: No Recent Hopitalizations: No Immunizations Up To Date Tetanus Booster (TDap): Unknown PED Vaccines UTD: No Date of Pneumonia Vaccine: Jul 08, 2012 Date of Influenza Vaccine: Mar 11, 2012 Seasonal Allergies Seasonal Allergies: Yes Past Medical History Surgeries: Yes Abdominal, Adenoidectomy, Section, Gallbladder, Hysterectomy, Orthopedic, Tonsillectomy, Vascular Surgery Respiratory: Yes (O2 AT HS 2-3L/NC AND PRN--NOCTURNAL HYPOXIA; ) Asthma, Pneumonia, Chronic Bronchitis, Pulmonary Embolism, COPD Currently Using CPAP: No Currently Using BIPAP: No Cardiac: Yes Chronic Edema/Swelling, Deep Vein Thrombosis, High Cholesterol, Hypertension, Peripheral Vascular Neurological: Yes Neuropathy 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 Disorders: No 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 Disorders: Denies 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, 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 Sexually Transmitted Disease: No HIV/AIDS: No 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: Yes Kidney Infection, Bladder Infection, Kidney Stones Gastrointestinal: Yes (MULTIPLE HERNIA REPAIRS; MULTIPLE EGD'S /COLONOSCOPIES/ POLYPECTOMIES) Abdominal Hernia, Gastroesophageal Reflux, Chronic Constipation, Chronic Diarrhea, Hepatitis, Polyps, Hiatal Hernia, Gall Bladder Disease, Irritable Bowel Musculoskeletal: Yes Arthritis Endocrine: Yes ("PRE-DIABETIC" ) HEENT: Yes (NASAL POLYPS) Cataract Loss of Vision: Denies Hearing Impairment: Denies Cancer: No Did You Recieve Any Treatments: No Psychosocial: Yes Anxiety Integumentary: Yes (CHRONIC VENOUS STASIS DERMATITIS AND ULCERS. ) Recent Skin Changes Blood Disorders: Yes (DVT'S/PE'S; PROBABLE PROTEIN C DEFICIENCY) Adverse Reaction/Blood Tranf: No (HAS HAD BLOOD WITH NO PROBLEMS) Family Medical History Alcoholism Alcoholism Arthritis Asthma Cancer Cancer of colon Cancer of mouth Cardiovascular disease Cataract Cataracts Chest pain Colon cancer Completed stroke Diabetes mellitus Family history: Allergy Family history: Arthritis Family history: Asthma Family history: Cardiovascular disease Family history: Coronary thrombosis Family history: Diabetes mellitus Family history: Gastrointestinal disease Family history: Hypertension Family history: Thyroid disorder Headache Hearing loss Heart disease History of - anemia History of - respiratory disease Hypercholesterolemia Hypercholesterolemia Infertile Malignant neoplasm of lung Myocardial infarction Myocardial infarction Psychotic disorder Respiratory disorder Stroke No Family History of: AIDS Abdominal aortic aneurysm Abdominal aortic aneurysm Fernando's disease [place]'s disease Alzheimer's disease Aphasia Aphasia Congenital disease Congenital heart disease Congenital heart disease Congestive heart failure Coronary thrombosis Cystic fibrosis Cystic fibrosis Deafness or hearing loss Dementia Dementia Drug abuse Dysphagia Dysphasia Family history: Alzheimer's disease Family history: Breast disease Family history: Glaucoma Family history: Osteoporosis Fibrocystic disease of breast Gastroenteritis Glaucoma Headache disorder Hereditary disease History of - disorder History of drug abuse Human immunodeficiency virus (HIV) seropositivity Infertility Kidney disease Kidney disease Neoplasm Not obtainable due to adoption Osteoporosis Parkinson's disease Parkinson's disease Prostate cancer Psychosocial problem Seizure disorder Seizure disorder Severe allergy Thyroid disease Tuberculosis Tuberculosis Visual disorder Visual impairment Cancer, COPD, Vascular Disease Review of Systems-General Constitutional: see HPI Physical Exam-General Problems Physical Exam Vital Signs Vital Signs - First Documented 08/21/18 13:00 Temp 97.2 Pulse 90 Resp 18 B/P (MAP) 129/91 (104) Pulse Ox 98 O2 Delivery Room Air Capillary Refill : General Appearance: no apparent distress Eyes: Bilateral Eye Normal Inspection HEENT: pharynx normal Neck: non-tender, supple Respiratory: lungs clear (Overall with faint expiratory wheezing) Cardiovascular: regular rate, rhythm Gastrointestinal: soft, other (Status postsurgical changes noted on abdomen with bruising around the periumbilical region and to the left and mid abdomen) Rectal: deferred Extremities: pedal edema (Mild) Skin: normal color Assessment/Plan Assessment/Plan Admission Diagnosis/Plan 1. Status post surgical correction ventral hernia and lysis of adhesions abdominal wall -Under care of Dr. Philip 2. COPD with asthma exacerbation very mild following surgery -Will restart prednisone which was began outpatient. -She also utilizes albuterol every 4 hours and this will be restarted 3. History of PE -Lovenox today and warfarin restarted tomorrow Admission Status: Inpatient Order (span 2 midnights) Reason for Inpatient Admission: Patient was admitted for surgical correction of ventral hernia and lysis of adhesion and she is under care of Dr. Philip. She also was receiving albuterol breathing treatments and prednisone for her history of COPD with asthma exacerbation LEAH WOLF MD Aug 22, 2018 07:47
[2018-08-22 08:00] VITALS: BP 129/84
[2018-08-22] MEDS ORDERED: ENOXAPARIN 40 MG/0.4 ML (LOVENOX) SYR SC SCH (08:00)
[2018-08-22] MEDS ORDERED: ONDANSETRON 4 MG (ZOFRAN) ORAL DISSOLVE TAB ONE (08:09)
[2018-08-22] MEDS: ONDANSETRON 4 MG (ZOFRAN) ORAL DISSOLVE TAB PO PRN ×2 (08:13→21:17)
--- NOTE | 2018-08-22 08:21 | Anesthesia-General Post-Op ---
General Patient Condition Mental Status/LOC: Same as Preop Cardiovascular: Satisfactory Nausea/Vomiting: Absent Respiratory: Satisfactory Pain: Controlled Complications: Absent Post Op Complications Complications None Follow Up Care/Instructions Patient Instructions None needed. Anesthesia/Patient Condition Patient Condition Patient is doing well, no complaints, stable vital signs, no apparent adverse anesthesia problems. No complications reported per nursing. CANDIDO LEON CRNA Aug 22, 2018 08:21
[2018-08-22] MEDS: RT-ALBUTEROL SULF 2.5 MG/3 ML PRE-MIX VIAL INH SCH ×4 (11:49→22:36)
[2018-08-22 12:00] VITALS: BP 127/82
--- NOTE | 2018-08-22 16:27 | Progress Note (SOAP) ---
Subjective Date Seen by a Provider: Aug 22, 2018 Time Seen by a Provider: 16:00 Subjective/Events-last exam doing ok. still has abdominal pain. protein C deficiency and continued on anticoagulation. skin eccymosis however no signs peritoneal bleeding. tolerating diet. Objective Exam Vital Signs Date Time Temp Pulse Resp B/P (MAP) Pulse Ox O2 Delivery O2 Flow Rate FiO2 08/22/18 15:31 95 Nasal Cannula 2.50 08/22/18 12:00 97.8 80 20 127/82 (97) 94 2.00 08/22/18 11:49 96 Nasal Cannula 2.50 08/22/18 09:00 97 Nasal Cannula 2.00 08/22/18 08:00 97.5 77 20 129/84 (99) 97 2.00 08/22/18 04:00 97.0 86 16 123/77 (92) 96 Nasal Cannula 3.00 08/22/18 00:22 97.7 92 16 107/70 (82) 92 Nasal Cannula 3.00 08/21/18 21:00 Nasal Cannula 2.00 08/21/18 20:47 Nasal Cannula 1.00 08/21/18 20:00 98.2 91 20 111/75 (87) 92 Nasal Cannula 3.00 08/21/18 18:39 97.5 93 20 147/91 96 Nasal Cannula 3.00 08/21/18 18:10 Nasal Cannula 3 08/21/18 18:10 Nasal Cannula 3 08/21/18 18:00 OxyMask 5 08/21/18 17:50 97.7 16 99 OxyMask 5 08/21/18 17:40 18 98 OxyMask 10 08/21/18 17:40 OxyMask 10 08/21/18 17:30 16 96 10 08/21/18 17:30 16 96 OxyMask 10 08/21/18 17:20 16 97 OxyMask 10 08/21/18 17:20 OxyMask 10 08/21/18 17:10 18 97 OxyMask 10 08/21/18 17:01 OxyMask 10 08/21/18 17:01 98.0 18 98 OxyMask 10 I & O 08/22/18 07:00 Intake Total 2390 ml Output Total 800 ml Balance 1590 ml Capillary Refill : General Appearance: No Apparent Distress HEENT: PERRL/EOMI Neck: Full Range of Motion Respiratory: Chest Non Tender, Lungs Clear Cardiovascular: Regular Rate, Rhythm Gastrointestinal: tenderness, other (skin eccymosis, no abd distention nor peritoneal signs) Extremity: Normal Capillary Refill Neurologic/Psychiatric: Alert, Oriented x3 Skin: Normal Color Lymphatic: No Adenopathy Results Lab Microbiology 08/21/18 MRSA Screen - Final, Complete MRSA not isolated Assessment/Plan Assessment/Plan Assess & Plan/Chief Complaint s/p NACHO and incisional hernia repair with mesh. very high risk VTE due to protein c deficiency. will continue lovenox for now however start PO coumadin. observe/encourage ambulation one more day. TEDDY PHILIP MD Aug 22, 2018 16:27
[2018-08-22 16:40] VITALS: BP 121/79
[2018-08-22 20:00] VITALS: BP 115/65
[2018-08-23] VITALS (7 sets, daily range): BP systolic 114–160; BP diastolic 70–92
[2018-08-23] MEDS: oxyCODONE/APAP 5/325MG (PERCOCET 5) TABLET PO PRN ×3 (00:17→20:57)
[2018-08-23] MEDS: RT-ALBUTEROL SULF 2.5 MG/3 ML PRE-MIX VIAL INH SCH ×6 (01:09→22:21)
[2018-08-23] MEDS: ENOXAPARIN 40 MG/0.4 ML (LOVENOX) SYR SC SCH (09:21)
[2018-08-23] MEDS ORDERED: RT-ALBUTEROL SULF 2.5 MG/3 ML PRE-MIX VIAL INH SCH (10:00)
[2018-08-23] MEDS: methylPREDNISolone 40 MG/ML (Solu-MEDROL) VIAL IV SCH ×3 (10:17→21:00)
[2018-08-23] MEDS ORDERED: RT-ALBUTEROL SULF 2.5 MG/3 ML PRE-MIX VIAL INH PRN ×2 (17:30→17:45)
[2018-08-23] MEDS ORDERED: warFARin 2 MG (COUMADIN) TAB PO SCH (18:00)
[2018-08-24] MEDS: RT-ALBUTEROL SULF 2.5 MG/3 ML PRE-MIX VIAL INH SCH ×2 (02:30→06:53)
[2018-08-24] MEDS: methylPREDNISolone 40 MG/ML (Solu-MEDROL) VIAL IV SCH ×2 (03:03→09:33)
[2018-08-24 04:00] VITALS: BP 113/67
[2018-08-24] MEDS: ENOXAPARIN 40 MG/0.4 ML (LOVENOX) SYR SC SCH (07:10)
[2018-08-24 07:40] VITALS: BP 136/83
== END 2018-08-24 10:45 | disposition home or self-care (01) ==
LOC: SDC 11:52 → 4TH 18:10 → SDC 08-24 10:45
PROVIDERS: ATTEND Surgery
DX: K43.2 Incisional hernia without obstruction or gangrene (principal); D68.59 Other primary thrombophilia; J44.9 Chronic obstructive pulmonary disease, unspecified; J45.901 Unspecified asthma with (acute) exacerbation; I10 Essential (primary) hypertension; E78.00 Pure hypercholesterolemia, unspecified; R60.9 Edema, unspecified; I73.9 Peripheral vascular disease, unspecified; R73.03 Prediabetes; K21.9 Gastro-esophageal reflux disease without esophagitis; K44.9 Diaphragmatic hernia without obstruction or gangrene; K59.09 Other constipation; K52.9 Noninfective gastroenteritis and colitis, unspecified; K75.9 Inflammatory liver disease, unspecified; Z86.711 Personal history of pulmonary embolism; Z86.718 Personal history of other venous thrombosis and embolism; Z79.01 Long term (current) use of anticoagulants; Z79.899 Other long term (current) drug therapy; Z87.891 Personal history of nicotine dependence
CPT/HCPCS: 36415; 82962; 85610; 87081; 94640; 94664; 94760

== ENCOUNTER 2018-08-24 14:10 | Inpatient (IN) | payer MEDICAID ==
[~2018-08-24] VITALS: Ht 165.1 cm; Wt 83.6 kg
[2018-08-24] MEDS ORDERED: RT-ALBUTEROL/IPRATROPIUM 3 ML (DUONEB) VIAL ONE (14:19)
[2018-08-24] MEDS ORDERED: LORazepam INJ 2 MG/ML (ATIVAN) VIAL ONE (14:25)
[2018-08-24] MEDS ORDERED: LORazepam INJ 2 MG/ML (ATIVAN) VIAL IVP ONE (14:30)
[2018-08-24] MEDS ORDERED: RT-ALBUTEROL/IPRATROPIUM 3 ML (DUONEB) VIAL INH ONE (14:30)
[2018-08-24 14:49] LABS: BASOPHILS % (AUTO) 0 % (0-10); EOSINOPHILS % (AUTO) 0 % (0-10); HEMATOCRIT 43 % (35-52); HEMOGLOBIN 13.8 G/DL (11.5-16.0); LYMPHOCYTES # (AUTO) 1.6 X 10^3 (1.0-4.0); LYMPHOCYTES % (AUTO) 12 % (12-44); MEAN CORPUSCULAR HEMOGLOBIN 29 PG (25-34); MEAN CORPUSCULAR HGB CONC 32 G/DL (32-36); MEAN CORPUSCULAR VOLUME 90 FL (80-99); MEAN PLATELET VOLUME 9.3 FL (7.4-10.4); MONOCYTES # (AUTO) 0.5 X 10^3 (0.0-1.0); MONOCYTES % (AUTO) 4 % (0-12); NEUTROPHILS # (AUTO) 11.5 X 10^3 (1.8-7.8); NEUTROPHILS % (AUTO) 84 % (42-75); PLATELET COUNT 382 10^3/uL (130-400); WHITE BLOOD COUNT 13.6 10^3/uL (4.3-11.0)
[2018-08-24] MEDS ORDERED: NS IV 500 ML 500 ML ONE (14:51)
[2018-08-24 15:03] LABS: ALANINE AMINOTRANSFERASE 21 U/L (0-55); ALBUMIN 4.3 GM/DL (3.2-4.5); ALKALINE PHOSPHATASE 90 U/L (40-136); BILIRUBIN,TOTAL 0.3 MG/DL (0.1-1.0); BUN/CREATININE RATIO 18; CALCIUM 10.3 MG/DL (8.5-10.1); CARBON DIOXIDE 24 MMOL/L (21-32); CHLORIDE 104 MMOL/L (98-107); CREATININE SERUM 0.65 MG/DL (0.60-1.30); GFR ESTIMATED > 60; GLUCOSE 151 MG/DL (70-105); POTASSIUM 3.6 MMOL/L (3.6-5.0); SODIUM 143 MMOL/L (135-145); TOTAL PROTEIN 8.2 GM/DL (6.4-8.2)
--- NOTE | 2018-08-24 15:31 | Diagnostic Imaging Report ---
CLINICAL INDICATION: Patient with shortness of air. Exam: Portable chest x-ray upright view. Comparisons: Chest x-ray dated 07/18/2018. Findings: Lungs/pleura: There is minimal left basilar atelectasis. There is mild right basilar atelectasis versus infiltrate. The remainder of the lungs are clear. There is no pneumothorax. There is no pleural effusion. Mediastinum: Unremarkable. Pulmonary vasculature: Unremarkable. Heart: Unremarkable. Bones/extrathoracic soft tissue: There are degenerative spurs involving the thoracic spine. Impression: 1: There is mild right basilar atelectasis versus infiltrate. 2: Minimal left basilar atelectasis. Dictated by: Dictated on workstation # [id number]
[2018-08-24 15:37] LABS: FIBRIN DEGRADATION PRODUCTS 0.53 UG/ML (0.00-0.49); PROTHROMBIN TIME PATIENT 13.4 SEC (12.2-14.7)
--- NOTE | 2018-08-24 16:20 | ED Respiratory ---
General Chief Complaint: Respiratory Problems Stated Complaint: ASTHMA TROUBLE, SOB Nursing Triage Note: Pt to rm 8. Pt reports being DC'd from hospital this morning and [facility] when pt began experiencing SOB. Pt's O2 sat 83% RA upon arrival. Pt placed on 3L NC and O2 sat roopa to 92%. RT called. Source: patient Exam Limitations: no limitations History of Present Illness Date Seen by Provider: Aug 24, 2018 Time Seen by Provider: 14:30 Initial Comments 58-year-old female who presents to the emergency room with complaints of increasing shortness of breath this afternoon while at [facility]. She reports that she was discharged from the hospital this morning for a recent hernia surgery but has had increasing asthma exacerbations throughout her stay. Her oxygen saturation was 83% on arrival to the emergency room. She has history of numerous DVTs. She was on Lovenox while in the hospital for DVT prophylaxis. She wears 3 L of oxygen while sleeping. Timing/Duration: just prior to arrival Prior Episodes/Possible Cause: no prior episodes Associated Symptoms: shortness of breath, wheezing Allergies and Home Medications Allergies Coded Allergies: aspirin (Verified Allergy, Severe, ANAPHYLAXIS, 08/07/17) ibuprofen (Verified Allergy, Severe, ANAPHYLAXIS, 08/07/17) ketorolac (Verified Allergy, Severe, ANAPHYLAXIS, 08/07/17) tetanus and diphtheria toxoids (Unverified Allergy, Severe, ANAPHYLAXIS, ) aloe (Verified Allergy, Mild, RASH, 08/07/17) latex (Verified Allergy, Mild, RASH, 08/07/17) OCCASIONALLY IS IRRITATING SKIN scopolamine (Verified Allergy, Mild, 08/07/17) iodine (Verified Adverse Reaction, Unknown, 08/07/17) Patient states she got dizzy, diaphoretic and saw stars. Uncoded Allergies: ALOE VERA (Allergy, Unknown, 12/23/05) SILK SUTURES (Adverse Reaction, Unknown, BODY REJECTS SUTURES, 10/07/13) Home Medications Albuterol Sulfate 2.5 Mg/3 Ml Vial.neb, 2.5 MG NEB TID, (Reported) MIXES WITH IPRATROPIUM SOLUTION Albuterol Sulfate 8.5 Gm Hfa.aer.ad, 2 PUFF IH Q4H PRN for SHORTNESS OF BREATH, (Reported) Albuterol Sulfate 2.5 Mg/3 Ml Vial.neb, 2.5 MG NEB Q2H PRN for SHORTNESS OF BREATH, (Reported) Alprazolam 1 Mg Tablet, 1 MG PO Q8H PRN for ANXIETY, (Reported) Calcium Carbonate/Vitamin D3 1 Each Tablet, 1 TAB PO BID, (Reported) Cefprozil 500 Mg Tablet, 500 MG PO BID, (Reported) 10 DAY SUPPLY FILLED 08-18-18 Enoxaparin Sodium 40 Mg/0.4 Ml Syringe, 40 MG SQ BID, (Reported) FILLED 08-11-18 (PLEASE UPDATE START DATE WITH PATIENT) Furosemide 80 Mg Tablet, 40 MG PO DAILY, (Reported) TAKES 1/2 (80MG) TABLET Hydrocodone Bit/Acetaminophen 1 Ea Tablet, 1 EACH PO Q4H PRN for PAIN-MODERATE Prescribed by: TEDDY NICHOLE on 08/21/18 1330 Hydrocodone/Acetaminophen 1 Each Tablet, 1 TAB PO Q6H PRN for PAIN-MODERATE, ( Reported) Hyoscyamine Sulfate 0.125 Mg Tab.rapdis, 0.125 MG SL Q6H PRN for ABDOMINAL PAIN, (Reported) Ipratropium [place] 0.2 Mg/1 Ml Solution, 1 VIAL NEB TID, (Reported) MIXES WITH ALBUTEROL SOLUTION Loratadine 10 Mg Tablet, 10 MG PO DAILY, (Reported) Montelukast Sodium 10 Mg Tablet, 10 MG PO HS, (Reported) Pantoprazole Sodium 40 Mg Tablet.dr, 40 MG PO DAILY, (Reported) Potassium Chloride 10 Meq Tablet.er, 20 MEQ PO BID, (Reported) TAKES 2 (10 MEQ) TABLETS Prednisone 20 Mg Tab, PO UD, (Reported) TAKE 3 (20MG) TABS DAILY X 3 DAYS TAKE 2 (20MG) TABS DAILY X 3 DAYS TAKE 1 ( 20MG) TAB DAILY X 3 DAYS FILLED 08-18-18 Promethazine HCl 25 Mg Tablet, 25 MG PO Q6H PRN for NAUSEA/VOMITING-2ND LINE, ( Reported) Warfarin Sodium 4 Mg Tablet, 4 MG PO 1800, (Reported) Patient Home Medication List Home Medication List Reviewed: Yes Review of Systems Review of Systems Constitutional: see HPI; No chills, No fever Respiratory: see HPI, short of breath, wheezing All Other Systems Reviewed Negative Unless Noted: Yes Past Twyunou-Ojvzvo-Lkkdba Hx Past Med/Social Hx: Reviewed Nursing Past Med/Soc Hx Patient Social History Alcohol Use: Denies Use Recreational Drug Use: No (15 yrs ago---IV drug user including Cocaine-CLEAN SINCE 1994) Drug of Choice: + IV COCAINE USE Smoking Status: Former Smoker Type Used: Cigarettes Former Smoker, Quit: Nov 17, 2000 2nd Hand Smoke Exposure: No Recent Foreign Travel: No Contact w/Someone Who Travel: No Recent Infectious Disease Expo: No Recent Hopitalizations: No Physical Abuse: No Sexual Abuse: No Immunizations Up To Date Tetanus Booster (TDap): Unknown PED Vaccines UTD: No Date of Pneumonia Vaccine: Jul 08, 2012 Date of Influenza Vaccine: Mar 11, 2012 Seasonal Allergies Seasonal Allergies: Yes Past Medical History Surgeries: Yes Abdominal, Adenoidectomy, Section, Gallbladder, Hysterectomy, Orthopedic, Tonsillectomy, Vascular Surgery Respiratory: Yes (O2 AT HS 2-3L/NC AND PRN--NOCTURNAL HYPOXIA; ) Asthma, Pneumonia, Chronic Bronchitis, Pulmonary Embolism, COPD Currently Using CPAP: No Currently Using BIPAP: No Cardiac: Yes Chronic Edema/Swelling, Deep Vein Thrombosis, High Cholesterol, Hypertension, Peripheral Vascular Neurological: Yes Neuropathy 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 Disorders: No 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 Disorders: Denies AUTOCAD History: Hysterectomy, Menopausal Sexually Transmitted Disease: No HIV/AIDS: No 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: Yes Kidney Infection, Bladder Infection, Kidney Stones Gastrointestinal: Yes (MULTIPLE HERNIA REPAIRS; MULTIPLE EGD'S /COLONOSCOPIES/ POLYPECTOMIES) Abdominal Hernia, Gastroesophageal Reflux, Chronic Constipation, Chronic Diarrhea, Hepatitis, Polyps, Hiatal Hernia, Gall Bladder Disease, Irritable Bowel Musculoskeletal: Yes Arthritis Endocrine: Yes ("PRE-DIABETIC" ) HEENT: Yes (NASAL POLYPS) Cataract Loss of Vision: Denies Hearing Impairment: Denies Cancer: No Did You Recieve Any Treatments: No Psychosocial: Yes Anxiety Integumentary: Yes (CHRONIC VENOUS STASIS DERMATITIS AND ULCERS. ) Recent Skin Changes Blood Disorders: Yes (DVT'S/PE'S; PROBABLE PROTEIN C DEFICIENCY) Adverse Reaction/Blood Tranf: No (HAS HAD BLOOD WITH NO PROBLEMS) Family Medical History Reviewed Nursing Family Hx Alcoholism Alcoholism Arthritis Asthma Cancer Cancer of colon Cancer of mouth Cardiovascular disease Cataract Cataracts Chest pain Colon cancer Completed stroke Diabetes mellitus Family history: Allergy Family history: Arthritis Family history: Asthma Family history: Cardiovascular disease Family history: Coronary thrombosis Family history: Diabetes mellitus Family history: Gastrointestinal disease Family history: Hypertension Family history: Thyroid disorder Headache Hearing loss Heart disease History of - anemia History of - respiratory disease Hypercholesterolemia Hypercholesterolemia Infertile Malignant neoplasm of lung Myocardial infarction Myocardial infarction Psychotic disorder Respiratory disorder Stroke No Family History of: AIDS Abdominal aortic aneurysm Abdominal aortic aneurysm [place]'s disease [place]'s disease Alzheimer's disease Aphasia Aphasia Congenital disease Congenital heart disease Congenital heart disease Congestive heart failure Coronary thrombosis Cystic fibrosis Cystic fibrosis Deafness or hearing loss Dementia Dementia Drug abuse Dysphagia Dysphasia Family history: Alzheimer's disease Family history: Breast disease Family history: Glaucoma Family history: Osteoporosis Fibrocystic disease of breast Gastroenteritis Glaucoma Headache disorder Hereditary disease History of - disorder History of drug abuse Human immunodeficiency virus (HIV) seropositivity Infertility Kidney disease Kidney disease Neoplasm Not obtainable due to adoption Osteoporosis Parkinson's disease Parkinson's disease Prostate cancer Psychosocial problem Seizure disorder Seizure disorder Severe allergy Thyroid disease Tuberculosis Tuberculosis Visual disorder Visual impairment Cancer, COPD, Vascular Disease Physical Exam Vital Signs - First Documented 08/24/18 08/24/18 14:10 14:26 Temp 99.4 Pulse 148 Resp 38 B/P (MAP) 190/119 (142) Pulse Ox 83 O2 Delivery Room Air O2 Flow Rate 4.00 Capillary Refill : Less Than 3 Seconds Height: 5'5.00" Weight: 185lbs. 4.0oz. 84.225328qc; 31.1 BMI Method:Stated General Appearance: WD/WN, no apparent distress HEENT: PERRL/EOMI, normal ENT inspection, TMs normal, pharynx normal Respiratory: chest non-tender, no respiratory distress, no accessory muscle use , respiratory distress, wheezing (faint wheezes throughout lung howard) Cardiovascular: normal peripheral pulses, regular rate, rhythm, no edema, no gallop, no JVD, no murmur Gastrointestinal: normal bowel sounds, non tender, soft, no organomegaly, no pulsatile mass Extremities: normal capillary refill Neurologic/Psychiatric: alert, normal mood/affect, oriented x 3 Skin: normal color, warm/dry Progress/Results/Core Measures Suspected Sepsis Recent Fever Within 48 Hours: No Infection Criteria Present: None New/Unexplained Altered Menta: No Sepsis Screen: No Definite Risk SIRS Temperature:99.4 Pulse: 148 Respiratory Rate: 38 Laboratory Tests 08/24/18 14:25: White Blood Count 13.6H Blood Pressure 190 /119 Mean: 142 Laboratory Tests 08/24/18 14:22: INR Comment 1.0 08/24/18 14:25: Creatinine 0.65, Platelet Count 382, Total Bilirubin 0.3 Results/Orders Lab Results Laboratory Tests Test 08/24/18 14:22 08/24/18 14:25 Range/Units Prothrombin Time 13.4 12.2-14.7 SEC INR Comment 1.0 0.8-1.4 Activated Partial Thromboplast Time 27 24-35 SEC D-Dimer 0.53 H 0.00-0.49 UG/ML White Blood Count 13.6 H 4.3-11.0 10^3/uL Red Blood Count 4.80 4.35-5.85 10^6/uL Hemoglobin 13.8 11.5-16.0 G/DL Hematocrit 43 35-52 % Mean Corpuscular Volume 90 80-99 FL Mean Corpuscular Hemoglobin 29 25-34 PG Mean Corpuscular Hemoglobin Concent 32 32-36 G/DL Red Cell Distribution Width 15.0 H 10.0-14.5 % Platelet Count 382 130-400 10^3/uL Mean Platelet Volume 9.3 7.4-10.4 FL Neutrophils (%) (Auto) 84 H 42-75 % Lymphocytes (%) (Auto) 12 12-44 % Monocytes (%) (Auto) 4 0-12 % Eosinophils (%) (Auto) 0 0-10 % Basophils (%) (Auto) 0 0-10 % Neutrophils # (Auto) 11.5 H 1.8-7.8 X 10^3 Lymphocytes # (Auto) 1.6 1.0-4.0 X 10^3 Monocytes # (Auto) 0.5 0.0-1.0 X 10^3 Eosinophils # (Auto) 0.0 0.0-0.3 10^3/uL Basophils # (Auto) 0.0 0.0-0.1 10^3/uL Sodium Level 143 135-145 MMOL/L Potassium Level 3.6 3.6-5.0 MMOL/L Chloride Level 104 98-107 MMOL/L Carbon Dioxide Level 24 21-32 MMOL/L Anion Gap 15 H 5-14 MMOL/L Blood Urea Nitrogen 12 7-18 MG/DL Creatinine 0.65 0.60-1.30 MG/DL Estimat Glomerular Filtration Rate > 60 BUN/Creatinine Ratio 18 Glucose Level 151 H 70-105 MG/DL Calcium Level 10.3 H 8.5-10.1 MG/DL Corrected Calcium 10.1 8.5-10.1 MG/DL Total Bilirubin 0.3 0.1-1.0 MG/DL Aspartate Amino Transf (AST/SGOT) 11 5-34 U/L Alanine Aminotransferase (ALT/SGPT) 21 0-55 U/L Alkaline Phosphatase 90 40-136 U/L Total Protein 8.2 6.4-8.2 GM/DL Albumin 4.3 3.2-4.5 GM/DL My Orders Orders - BERNOT,JASON Albuterol/Ipra Inhalation Soln (Duoneb I (08/24/18 14:30) Svn Small Volume Nebulizer (08/24/18 14:21) Chest 1 View, Ap/Pa Only (08/24/18 14:21) Lorazepam Injection (Ativan Injection) (08/24/18 14:30) Lorazepam Injection (Ativan Injection) (08/24/18 14:25) Cbc With Automated Diff (08/24/18 14:43) Comprehensive Metabolic Panel (08/24/18 14:43) Ns Iv 500 Ml (Sodium Chloride 0.9%) (08/24/18 14:51) Protime With Inr (08/24/18 15:20) Partial Thromboplastin Time (08/24/18 15:20) Fibrin Degradation Products (08/24/18 15:20) Medications Given in ED Current Medications Medications Dose Ordered Sig/Nahomi Route Start Time Stop Time Status Last Admin Dose Admin Lorazepam 0.5 mg ONCE ONCE IVP 08/24/18 14:30 08/24/18 14:32 DC 08/24/18 14:31 0.5 MG Sodium Chloride 500 ml @ STK-MED ONCE .ROUTE 08/24/18 14:51 08/24/18 14:54 DC 08/24/18 14:56 500 MLS/HR Vital Signs/I&O 08/24/18 08/24/18 14:10 14:26 Temp 99.4 Pulse 148 Resp 38 B/P (MAP) 190/119 (142) Pulse Ox 83 93 O2 Delivery Room Air Nasal Cannula O2 Flow Rate 4.00 Capillary Refill : Less Than 3 Seconds Blood Pressure Mean: 142 Progress Note : Time: 16:00 Progress Note I have seen and evaluated the patient. Her lung sounds have improved after breathing treatments. She is still hypoxic and tachycardic at this time. Due to her iodine allergy we are unable to do a CT angios of her chest to rule out pulmonary embolism. I have discussed the case with Dr. Nicolas, Dr. Nichole, and Dr. Jackson and they agree for admitting the patient for VQ scan in the morning. Dr. Jackson recommends continuing Solu-Medrol, therapeutic Lovenox dosing, and bilateral venous Dopplers. The patient agrees with plan of care. Diagnostic Imaging Diagonstic Imaging: Xray, CT Plain Films/CT/US/NM/MRI: chest Comments NAME: SUJEY FELIZ [facility] REC#: [id number] PT STATUS: ADM Jesus : 1960 PHYSICIAN: JASON GERARDO ADMIT DATE: 08/24/18/ICU Signed Date of Exam: 08/24/18 CHEST 1 VIEW, AP/PA ONLY CLINICAL INDICATION: Patient with shortness of air. Exam: Portable chest x-ray upright view. Comparisons: Chest x-ray dated 07/18/2018. Findings: Lungs/pleura: There is minimal left basilar atelectasis. There is mild right basilar atelectasis versus infiltrate. The remainder of the lungs are clear. There is no pneumothorax. There is no pleural effusion. Mediastinum: Unremarkable. Pulmonary vasculature: Unremarkable. Heart: Unremarkable. Bones/extrathoracic soft tissue: There are degenerative spurs involving the thoracic spine. Impression: 1: There is mild right basilar atelectasis versus infiltrate. 2: Minimal left basilar atelectasis. Dictated by: Dictated on workstation # [id number] Dict: 08/24/18 1523 Trans: 08/24/18 1743 Interpreted by: WILY COUGHLIN MD Electronically signed by: WILY COUGHLIN MD 08/24/18 1743 Reviewed: Reviewed by Me Departure Communication (Admissions) Time/Spoke to Admitting Phy: 16:00 Dr. Nicolas Time/Spoke to Consulting Phy: 16:05 Dr. NICHOLE 1610: Dr. Jackson Impression Primary Impression: Asthma exacerbation Additional Impression: possible pulmonary embolism Disposition: ADMITTED INPATIENT Condition: Stable/Unchanged Admissions Decision to Admit Reason: Admit from ER (General) Decision to Admit/Date: Aug 24, 2018 Time/Decision to Admit Time: 16:19 Departure-Patient Inst. Referrals: LEAH WOLF MD (PCP/Family) Primary Care Physician JASON GERARDO Aug 24, 2018 16:20
[2018-08-24 17:05] VITALS: BP 132/93
[2018-08-24 17:12] VITALS: BP 190/119
--- OUTSIDE RECORDS SUMMARY | 2018-08-24 17:35 | XMS REPORT | Encounter Summary ---
Author Author [facility] Organization [facility] Address Unknown Phone Unavailable Care Team Providers Care Head Screen Worker Name Role Phone Jay Rogers MD PCP Joshua Ku MD Unavailable Reason for Visit * Reason Comments Surgery Encounter Details Care Team Description Date Type Department Joshua Ku MD [address] [facility] [place] [address] 06/11/2018 Refill [facility] [address] [place] [address] Social History Date Tobacco Use [...] Travel Start No recent travel history available. documented as of this encounter Plan of Treatment Not on filedocumented as of this encounter Visit Diagnoses Not on filedocumented in this encounter
--- OUTSIDE RECORDS SUMMARY | 2018-08-24 17:35 | XMS REPORT | Encounter Summary ---
Author Author [facility] Organization [facility] Address Unknown Phone Unavailable Care Team Providers Care Food And Nutrition Teacher Name Role Phone Jay Rogers MD PCP Joshua Ku MD Unavailable Reason for Visit * Reason Comments Varicose Vein Encounter Details Care Team Description Date Type Department Varicose veins of lower extremities with complications, bilateral 07/11/2018 Clinical [facility] [address] [place] [address] Social History Date Tobacco Use [...] filedocumented as of this encounter Visit Diagnoses Diagnosis Varicose veins of lower extremities with complications, bilateral documented in this encounter
--- OUTSIDE RECORDS SUMMARY | 2018-08-24 17:35 | XMS REPORT | Encounter Summary ---
Author Author [facility] Organization [facility] Address Unknown Phone Unavailable Care Team Providers Care Merchandising Consultant Name Role Phone Jay Rogers MD PCP Joshua Ku MD Unavailable Reason for Visit * Reason Comments Surgical Followup Encounter Details Care Team Description Date Type Department Joshua Ku MD [address] [facility] [place] [address] Surgical Followup 07/11/2018 Telephone [facility] [address] [place] [address] Social History Date Tobacco Use [...] history available. documented as of this encounter Miscellaneous Notes * Telephone Encounter - Annie Brooks RN - 07/14/2018 8:42 AM SECONDARY SCHOOL TEACHER Pt presented for a post operative ultrasound [...] she becomes symptomatic to DVT or PE. NDARY SCHOOL TEACHER documented in this encounter Plan of Treatment Not on filedocumented as of this encounter Visit Diagnoses Not on filedocumented in this encounter
--- OUTSIDE RECORDS SUMMARY | 2018-08-24 17:35 | XMS REPORT | Encounter Summary ---
Author Author [facility] Organization [facility] Address Unknown Phone Unavailable Care Team Providers Care Emissions Testing And Repair Technician Name Role Phone Jay Rogers MD PCP Joshua Ku MD Unavailable Encounter Details Care Team Description Date Type Department Shanthi Topete, ENVIRONMENTAL FIELD OFFICE MANAGER [address] [facility] [place] [address] Leg swelling (Primary Dx); Varicose veins of left lower extremity with other complications 07/09/2018 Orders Only [facility] [address] [place] [address] Social History Date Tobacco Use [...] Not on filedocumented as of this encounter Procedures Comments Procedure Name Priority Date/Time Associated Diagnosis US DOPPLER VENOUS Routine 07/21/2018 Leg swelling BILATERAL Varicose veins of left lower extremity with other complications documented in this encounter Results * US DOPPLER VENOUS BILATERAL (07/21/2018) Narrative Performed At Performing Organization Address City/State/Zipcode Phone Number [facility] documented in this encounter Visit Diagnoses Diagnosis Leg swelling - Primary Swelling of limb Varicose veins of left lower extremity with other complications documented in this encounter
--- OUTSIDE RECORDS SUMMARY | 2018-08-24 17:35 | XMS REPORT | Encounter Summary ---
Author Author [facility] Organization [facility] Address Unknown Phone Unavailable Care Team Providers Care Web Project Manager Name Role Phone Jay Rogers MD PCP Joshua Ku MD Unavailable Reason for Visit * Reason Comments Prior Authorization Prior Authorization Encounter Details Care Team Description Date Type Department Joshua Ku MD [address] [facility] [place] [address] Prior Authorization; Prior Authorization 06/03/2018 Telephone [facility] [address] [place] [address] Social History Date Tobacco Use [...] - Stella Anderson - 06/10/2018 3:25 PM SCRAP COLLECTOR Patient is going to be approved for ablation. GALVANIZER OVERTURNED THE DECISION OF MEDICAL POLICY. Referral in chart. P COLLECTOR * Telephone Encounter - Stella Anderson - 06/10/2018 2:21 PM SCRAP COLLECTOR Spoke with patient, she is faxing me a letter. I have also left a message for insurance rep Kesha. I need to speak with her. P COLLECTOR * Telephone Encounter - Roselyn Dudley - 06/10/2018 9:18 AM SCRAP COLLECTOR Who is calling? Sujey Feliz What is [...] before sending: yes Call Back phone number: [phone] P COLLECTOR * Telephone Encounter - Joseline Calabrese - 06/09/2018 4:00 PM SCRAP COLLECTOR Who is calling? Sujey Feliz What is [...] before sending: yes Call Back phone number: [phone] P COLLECTOR * Telephone Encounter - Stella Anderson - 06/09/2018 12:46 PM SCRAP COLLECTOR Spoke with patient, she called and stated [...] have MPs. But ablations will be OOP. P COLLECTOR * Telephone Encounter - Doris Bowie RN - 06/04/2018 8:[address] Bass, Patient insurance doesn't cover ablations. [...] in care credit to cover her procedures. P COLLECTOR * Telephone Encounter - Stella Anderson - 06/03/2018 3:30 PM SCRAP COLLECTOR Patient was approved for MPs with Medicaid. Ablations are not a covered benefits. Pt will have to pay OOP for those. I have quoted her for ablations. She would like to speak with a nurse regarding how to proceed with procedures. Please call back at [phone] P COLLECTOR documented in this encounter Plan of Treatment Not on filedocumented as of this encounter Visit Diagnoses Not on filedocumented in this encounter
--- OUTSIDE RECORDS SUMMARY | 2018-08-24 17:35 | XMS REPORT | Encounter Summary ---
Author Author [facility] Organization [facility] Address Unknown Phone Unavailable Care Team Providers Care Sound Person Name Role Phone Jay Rogers MD PCP Joshua Ku MD Unavailable Reason for Visit * Reason Comments General Question General Question Encounter Details Care Team Description Date Type Department Joshua Ku MD [address] [facility] [place] [address] General Question; General Question 07/07/2018 Telephone [facility] [address] [place] [address] Social History Date Tobacco Use [...] Annie Brooks RN - 07/08/2018 10:20 AM BLOCK SETTER GYPSUM Spoke with pt, we spoke at length yesterday regarding her concerns, I called her from home as I was not in the office. The patient is hospitalized for unrelated issues, sinus infection, trouble breathing, low O2 sats. I did advise pt that sutures can wait to come out a bit longer. Her post scan has been rescheduled to Tuesday 07/11 K SETTER GYPSUM * Telephone Encounter - Joseline Calabrese - 07/08/2018 8:04 AM BLOCK SETTER GYPSUM Who is calling? Sujey Feliz What is the patients need/concern? PATIENT CALLED AND STATED THAT SHE HAS BEEN ADMITTED INTO THE [facility] IN [place], [place]. PATIENT STATES THAT SHE HAS AN [...] before sending: yes Call Back phone number: [phone] K SETTER GYPSUM * Telephone Encounter - Roselyn Dudley - 07/07/2018 9:05 AM BLOCK SETTER GYPSUM Who is calling? Sujey Feliz What is [...] hospital was the patient seen at? [facility] Are there any other needs/concerns the patient has? no If yes, description of concern: Expected response time frame given to patient: 24 hours Read back to patient before sending: yes Call Back phone number: [phone] K SETTER GYPSUM documented in this encounter Plan of Treatment Not on filedocumented as of this encounter Visit Diagnoses Not on filedocumented in this encounter
--- OUTSIDE RECORDS SUMMARY | 2018-08-24 17:35 | XMS REPORT | Encounter Summary ---
Author Author [facility] Organization [facility] Address Unknown Phone Unavailable Care Team Providers Care Vigoureux Printer Name Role Phone Jay Rogers MD PCP [...] Date Type Department Joshua Ku MD [address] [facility] [place] [address] General Question (Pt wanted to know could she be re submitted to Insurance for vein procedure. Was advised maybe we didnt send all clinical info for it. She asked to recieve a call back to go over options.) 06/09/2018 Telephone [facility] [address] [place] [address] Social History Date Tobacco Use [...] * Telephone Encounter - Ifeanyi Silveira - 06/13/2018 11:25 AM HAM FACER R/S pt. For 07/03 and 07/04 FACER * Telephone Encounter - Roselyn Dudley - 06/13/2018 10:28 AM HAM FACER Pt needs to reschedule her vein procedure due to not having transportation. If time is available for Dr. Oswald, pt is thinking of the following week. Please call [phone] FACER * Telephone Encounter - Stella Anderson - 06/09/2018 12:47 PM HAM FACER Notes in original telephone encounter regarding matter. FACER * Telephone Encounter - Angela Roberson - 06/09/2018 12:09 PM HAM FACER Pt wanted to know could she be re submitted to Insurance for vein procedure. Was advised maybe we didnt send all clinical info for it. She asked to recieve a call back to go over options. FACER documented in this encounter Plan of Treatment Not on filedocumented as of this encounter Visit Diagnoses Not on filedocumented in this encounter
--- OUTSIDE RECORDS SUMMARY | 2018-08-24 17:35 | XMS REPORT | Encounter Summary ---
Author Author [facility] Organization [facility] Address Unknown Phone Unavailable Care Team Providers Care Forge Heater Name Role Phone Jay Rogers MD PCP Joshua Ku MD Unavailable Reason for Visit * Reason Comments General Question Encounter Details Care Team Description Date Type Department Joshua Ku MD [address] [facility] [place] [address] General Question 07/02/2018 Telephone The [facility] [address] [place] [address] Social History Date Tobacco Use [...] - Ifeanyi Silveira - 07/02/2018 3:42 PM TOP CLOSER Answered all of patient's questions to satisfaction. She is ok to move to 2pm for procedures on 07/03 CLOSER * Telephone Encounter - Joseline Calabrese - 07/02/2018 1:56 PM TOP CLOSER Who is calling? Sujey Feliz What is [...] before sending: yes Call Back phone number: [phone] CLOSER * Telephone Encounter - Roselyn Dudley - 07/02/2018 11:33 AM TOP CLOSER Pt is returning call to Annie Salas, Please call pt at [phone] CLOSER * Telephone Encounter - Annie Brooks, RN - 07/02/2018 11:25 AM TOP CLOSER LM for pt to return call CLOSER * Telephone Encounter - Andie Carrillo - 07/02/2018 8:14 AM TOP CLOSER Pt called wanting to know which leg [...] She would like a call back at [phone] CLOSER documented in this encounter Plan of Treatment Not on filedocumented as of this encounter Visit Diagnoses Not on filedocumented in this encounter
--- OUTSIDE RECORDS SUMMARY | 2018-08-24 17:35 | XMS REPORT | Encounter Summary ---
Author Author [facility] Organization [facility] Address Unknown Phone Unavailable Care Team Providers Care Jewelry Inspector Name Role Phone Jay Rogers MD PCP Joshua Ku MD Unavailable Reason for Visit * Reason Comments Procedure right great saphenous endovenous ablation with right leg microphlebectomy * Outpatient Surgery (Routine) Referred By Contact Referred To Contact Status Reason Specialty Diagnoses / Procedures Joshua Ku MD [address] [facility] [place] [address] Joshua Ku MD [address] [facility] [place] [address] Authorized Vascular Surgery Diagnoses Varicose veins of right lower extremity with other complications Varicose veins of left lower extremity with other complications Other specified soft tissue disorders 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 dre right gsv, mp >20 2. dre left gsv, mp >20 Encounter Details Care Team Description Date Type Department Joshua Ku MD [address] [facility] [place] [address] [phone] Varicose veins of right lower extremity with pain (Primary Dx) 07/03/2018 Procedure visit [facility] [address] [place] [address] [address] Social History Date Tobacco Use Types [...] history available. documented as of this encounter Patient Instructions * Patient Instructions* JaimeMaria Ines Sherine - 07/03/2018 2:00 PM SOLE LEATHER CUTTING MACHINE OPERATOR [facility]in [place] [facility] [address] [place] [address] Instructions following Vein Procedure 1. If you [...] Joshua Ku MD was your doctor today. LEATHER CUTTING MACHINE OPERATOR documented in this encounter Progress Notes * Joshua Ku MD - 07/03/2018 2:00 PM SOLE LEATHER CUTTING MACHINE OPERATOR OPERATIVE REPORT/RADIOFREQUENCY ABLATION w/MP Date: 07/03/2018 Patient: [...] Surgeon: Joshua Ku MD M.D., F.A.C.S., R.P.V.I. Process Technician(s): Annie Brooks R.N.-B.SCamrynNCamryn and Maria Ines Sandoval, Patient Metallography Teacher/ORA Medications: Xanax 1mg Emla cream - 30 [...] right lower extremity with pain - Primary LEATHER CUTTING MACHINE OPERATOR documented in this encounter Plan of Treatment Not on filedocumented as of this encounter Visit Diagnoses Diagnosis Varicose veins of right lower extremity with pain - Primary Varicose veins of lower extremities with other complications documented in this encounter
--- OUTSIDE RECORDS SUMMARY | 2018-08-24 17:35 | XMS REPORT | Clinical Summary ---
Author Author [facility] Organization [facility] Address Unknown Phone Unavailable Care Team Providers Care Pig Furnace Operator Name Role Phone Jay Rogers MD PCP Joshua Ku MD Unavailable Source Comments Some departments are not documenting in the electronic medical record. If you do not see the information that you expected, contact Release of Information in the Health Information Management department at [phone] for further assistance in locating additional records.[facility] Allergies Comments Active Allergy Reactions Severity [...] hours as needed for Nausea or Vomiting. Active Problems Problem Noted Date Varicose veins [...] Aide Oswald MD 05/26/2018 Telephone Vascular Surgery from Last 3 Months [...] Taken Vital Sign Reading 04/29/2018 11:50 AM ECLECTIC DOCTOR Blood Pressure 110/72 - Pulse - - Temperature - - Respiratory Rate - - Oxygen Saturation - - Inhaled Oxygen - Concentration 04/29/2018 11:50 AM ECLECTIC DOCTOR Weight 83.9 kg (185 lb) 04/29/2018 11:50 AM ECLECTIC DOCTOR Height 165.1 cm (5' 5") 04/29/2018 11:50 AM ECLECTIC DOCTOR Body Mass Index 30.79 Plan of Treatment [...] of left lower extremity with other complications from Last 3 Months Results * US DOPPLER VENOUS BILATERAL (07/21/2018) Narrative Performed At Performing Organization Address City/State/Zipcode Phone Number [facility] from Last 3 Months Insurance Type Payer Benefit Subscriber ID Effective Phone Address Plan / Dates Group AETNA MEDICAID AETNA xxxxxxxxxxx [id number] [facility] [place] Advance Directives Patient has advance care planning documents on file. For more information, please contact: [facility] [address] [place] [address]
--- OUTSIDE RECORDS SUMMARY | 2018-08-24 17:35 | XMS REPORT | Encounter Summary ---
Author Author [facility] Organization [facility] Address Unknown Phone Unavailable Care Team Providers Care Gem Technician Name Role Phone Jay Rogers MD PCP Joshua Ku MD Unavailable Reason for Visit * Reason Comments Procedure left great saphenous endovenous ablation with left leg microphlebectomy Encounter Details Care Team Description Date Type Department Joshua Ku MD [address] [facility] [place] [address] Varicose veins of left lower extremity with other complications 07/04/2018 Procedure visit [facility] [address] [place] [address] Social History Date Tobacco Use [...] Maria Ines Sandoval - 07/04/2018 11:00 AM PHYSICIAN ASSISTANT SURGERY [facility] Vein [place] [facility] [address] [place], [place] [address] Instructions following Vein Procedure 1. [...] Joshua Ku MD was your doctor today. ICIAN ASSISTANT SURGERY documented in this encounter Progress Notes * Joshua Ku MD - 07/04/2018 11:00 AM PHYSICIAN ASSISTANT SURGERY OPERATIVE REPORT/RADIOFREQUENCY ABLATION w/MP Date: 07/04/2018 Patient: [...] Surgeon: Joshua Ku MD M.D., F.BienvenidoS., R.P.V.I. District Administrative Assistant(s): Linsey Keith and Maria Ines Sandoval Patient Court Orderly/ORA Medications: Xanax 1mg Emla cream - 30 [...] Problem List Items Addressed This Visit None ICIAN ASSISTANT SURGERY documented in this encounter Plan of Treatment Not on filedocumented as of this encounter Visit Diagnoses Diagnosis Varicose veins of left lower extremity with other complications documented in this encounter
--- OUTSIDE RECORDS SUMMARY | 2018-08-24 17:36 | XMS REPORT | Encounter Summary ---
Author Author [facility] Organization [facility] Address Unknown Phone Unavailable Care Team Providers Care Paddle Dyeing Machine Operator Name Role Phone Jay Rogers MD PCP Joshua Ku MD Unavailable Encounter Details Care Team Description Date Type Department Aide Oswald MD [address] [facility] [place] [address] 05/26/2018 Telephone [facility] [address] [place] [address] Social History Date Tobacco Use [...] - Stella Anderson - 05/29/2018 8:32 AM UNIVERSAL GRINDER OPERATOR They just don't, that's their policy. ERSAL GRINDER OPERATOR * Telephone Encounter - Andie Carrillo - 05/29/2018 8:09 AM UNIVERSAL GRINDER OPERATOR I am waiting for a fax or letter to specify. I am not sure about the MP's. Would you suggest I call about it? Why does Medicaid not approve ablations? ERSAL GRINDER OPERATOR * Telephone Encounter - Stella Anderson - 05/28/2018 11:34 AM UNIVERSAL GRINDER OPERATOR This is pretty typical with Medicaid. Did our 88418/61545 codes get approved? ERSAL GRINDER OPERATOR * Telephone Encounter - Clarisa Hutchinson - 05/26/2018 3:36 PM UNIVERSAL GRINDER OPERATOR AETNA INFORMING CPT 05507 [place] - CALL REP MARTHA AT [phone] FOR MORE INFORMATION BEFORE THE MED DIRECTOR HAS TO REVIEW ERSAL GRINDER OPERATOR documented in this encounter Plan of Treatment Not on filedocumented as of this encounter Visit Diagnoses Not on filedocumented in this encounter
[2018-08-24] MEDS ORDERED: RT-ALBUTEROL SULF 2.5 MG/3 ML PRE-MIX VIAL ONE (18:35)
[2018-08-24] MEDS ORDERED: RT-ALBUTEROL SULF 2.5 MG/3 ML PRE-MIX VIAL INH PRN (18:45)
--- OUTSIDE RECORDS SUMMARY | 2018-08-24 18:58 | XMS REPORT | Encounter Summary ---
Author Author [facility] Organization [facility] Address Unknown Phone Unavailable Care Team Providers Care Account Clerk Name Role Phone Jay Rogers MD PCP Joshua Ku MD Unavailable Reason for Visit * Reason Comments General Question General Question Encounter Details Care Team Description Date Type Department Joshua Ku MD [address] [facility] [place] [address] General Question; General Question 07/07/2018 Telephone [facility] [address] [place] [address] Social History Date Tobacco Use [...] Annie Brooks RN - 07/08/2018 10:20 AM CERTIFIED REAL ESTATE APPRAISER Spoke with pt, we spoke at length yesterday regarding her concerns, I called her from home as I was not in the office. The patient is hospitalized for unrelated issues, sinus infection, trouble breathing, low O2 sats. I did advise pt that sutures can wait to come out a bit longer. Her post scan has been rescheduled to Tuesday 07/11 IFIED REAL ESTATE APPRAISER * Telephone Encounter - Joseline Calabrese - 07/08/2018 8:04 AM CERTIFIED REAL ESTATE APPRAISER Who is calling? Sujey Feliz What is the patients need/concern? PATIENT CALLED AND STATED THAT SHE HAS BEEN ADMITTED INTO [facility] [place] [place]. PATIENT STATES THAT SHE HAS AN [...] before sending: yes Call Back phone number: [phone] IFIED REAL ESTATE APPRAISER * Telephone Encounter - Roselyn Dudley - 07/07/2018 9:05 AM CERTIFIED REAL ESTATE APPRAISER Who is calling? Sujey Feliz What is [...] hospital was the patient seen at? [facility] Are there any other needs/concerns the patient has? no If yes, description of concern: Expected response time frame given to patient: 24 hours Read back to patient before sending: yes Call Back phone number: [phone] IFIED REAL ESTATE APPRAISER documented in this encounter Plan of Treatment Not on filedocumented as of this encounter Visit Diagnoses Not on filedocumented in this encounter
--- OUTSIDE RECORDS SUMMARY | 2018-08-24 18:58 | XMS REPORT | Encounter Summary ---
Author Author [facility] Organization [facility] Address Unknown Phone Unavailable Care Team Providers Care Decontamination Worker Name Role Phone Jay Rogers MD PCP Joshua Ku MD Unavailable Reason for Visit * Reason Comments General Question Encounter Details Care Team Description Date Type Department Joshua Ku MD [address] [facility] [place] [address] General Question 07/02/2018 Telephone [facility] [address] [place] [address] Social History Date Tobacco Use [...] - Ifeanyi Silveira - 07/02/2018 3:42 PM ENVIRONMENTAL AIDE Answered all of patient's questions to satisfaction. She is ok to move to 2pm for procedures on 07/03 RONMENTAL AIDE * Telephone Encounter - Joseline Calabrese - 07/02/2018 1:56 PM ENVIRONMENTAL AIDE Who is calling? Sujey Feliz What is [...] before sending: yes Call Back phone number: [phone] RONMENTAL AIDE * Telephone Encounter - Roselyn Dudley - 07/02/2018 11:33 AM ENVIRONMENTAL AIDE Pt is returning call to Annie Salas, Please call pt at [phone] RONMENTAL AIDE * Telephone Encounter - Annie Brooks, RN - 07/02/2018 11:25 AM ENVIRONMENTAL AIDE LM for pt to return call RONMENTAL AIDE * Telephone Encounter - Andie Carrillo - 07/02/2018 8:14 AM ENVIRONMENTAL AIDE Pt called wanting to know which leg [...] She would like a call back at [phone] RONMENTAL AIDE documented in this encounter Plan of Treatment Not on filedocumented as of this encounter Visit Diagnoses Not on filedocumented in this encounter
--- OUTSIDE RECORDS SUMMARY | 2018-08-24 18:58 | XMS REPORT | Encounter Summary ---
Author Author [facility] Organization [facility] Address Unknown Phone Unavailable Care Team Providers Care Regional Facilities Specialist Name Role Phone Jay Rogers MD PCP Joshua Ku MD Unavailable Encounter Details Care Team Description Date Type Department Shanthi Topete, FARM GENERAL MANAGER [address] [facility] [place] [address] Leg swelling (Primary Dx); Varicose veins of left lower extremity with other complications 07/09/2018 Orders Only The [facility] [address] [place] [address] Social History Date Tobacco Use [...] At Performing Organization Address City/State/Zipcode Phone Number [facility] documented in this encounter Visit Diagnoses Diagnosis Leg swelling - Primary Swelling of limb Varicose veins of left lower extremity with other complications documented in this encounter
--- OUTSIDE RECORDS SUMMARY | 2018-08-24 18:58 | XMS REPORT | Encounter Summary ---
Author Author [facility] Organization [facility] Address Unknown Phone Unavailable Care Team Providers Care Distributor Advertising Material Name Role Phone Jay Rogers MD PCP Joshua Ku MD Unavailable Reason for Visit * Reason Comments Surgical Followup Encounter Details Care Team Description Date Type Department Joshua Ku MD [address] [facility] [place] [address] Surgical Followup 07/11/2018 Telephone [facility] [address] [place] [address] Social History Date Tobacco Use [...] Annie Brooks RN - 07/14/2018 8:42 AM MATCHBOOK MAKER Pt presented for a post operative ultrasound [...] she becomes symptomatic to DVT or PE. HBOOK MAKER documented in this encounter Plan of Treatment Not on filedocumented as of this encounter Visit Diagnoses Not on filedocumented in this encounter
--- OUTSIDE RECORDS SUMMARY | 2018-08-24 18:58 | XMS REPORT | Encounter Summary ---
Author Author [facility] Organization [facility] Address Unknown Phone Unavailable Care Team Providers Care Computer Forensics Investigator Name Role Phone Jay Rogers MD PCP Joshua Ku MD Unavailable Reason for Visit * Reason Comments Procedure left great saphenous endovenous ablation with left leg microphlebectomy Encounter Details Care Team Description Date Type Department Joshua Ku MD [address] [facility] [place] [address] Varicose veins of left lower extremity with other complications 07/04/2018 Procedure visit [facility] [address] [place] [address] Social History Date Tobacco Use [...] Maria Ines Sandoval - 07/04/2018 11:00 AM DEPUTY PROBATION OFFICER [facility]in [place] [facility] [address] [place], [place] [address] Instructions following Vein Procedure 1. [...] Joshua Ku MD was your doctor today. TY PROBATION OFFICER documented in this encounter Progress Notes * Joshua Ku MD - 07/04/2018 11:00 AM DEPUTY PROBATION OFFICER OPERATIVE REPORT/RADIOFREQUENCY ABLATION w/MP Date: 07/04/2018 Patient: [...] Surgeon: Joshua Ku MD M.D., F.BienvenidoS., R.P.V.I. Test Clerk(s): Linsey Keith and Maria Ines Sandoval Patient Senior Tech Manufacturing Engineering/ORA Medications: Xanax 1mg Emla cream - 30 [...] Problem List Items Addressed This Visit None TY PROBATION OFFICER documented in this encounter Plan of Treatment Not on filedocumented as of this encounter Visit Diagnoses Diagnosis Varicose veins of left lower extremity with other complications documented in this encounter
--- OUTSIDE RECORDS SUMMARY | 2018-08-24 18:58 | XMS REPORT | Encounter Summary ---
Author Author [facility] Organization [facility] Address Unknown Phone Unavailable Care Team Providers Care Boilermaker Ship Name Role Phone Jay Rogers MD PCP Joshua Ku MD Unavailable Reason for Visit * Reason Comments Varicose Vein Encounter Details Care Team Description Date Type Department Varicose veins of lower extremities with complications, bilateral 07/11/2018 Clinical [facility] [address] [place] [address] Social History Date Tobacco Use [...]
--- OUTSIDE RECORDS SUMMARY | 2018-08-24 18:58 | XMS REPORT | Encounter Summary ---
Author Author [facility] Organization [facility] Address Unknown Phone Unavailable Care Team Providers Care Log Driver Name Role Phone Jay Rogers MD PCP Joshua Ku MD Unavailable Reason for Visit * Reason Comments Procedure right great saphenous endovenous ablation with right leg microphlebectomy * Outpatient Surgery (Routine) Referred By Contact Referred To Contact Status Reason Specialty Diagnoses / Procedures Joshua Ku MD [address] [place] [address] Joshua Ku MD [address] [facility] [place] [place] [address] Authorized Vascular Surgery Diagnoses Varicose veins of right lower extremity with other complications Varicose veins of left lower extremity with other complications Other specified soft tissue disorders Other primary thrombophilia ([facility]) 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 dre right gsv, mp >20 2. dre left gsv, mp >20 Encounter Details Care Team Description Date Type Department Joshua Ku MD [address] [place] [address] [phone] Varicose veins of right lower extremity with pain (Primary Dx) 07/03/2018 Procedure visit The [facility] [address] [place] [address] [address] Social History [...] JaimeMaria Ines Sherine - 07/03/2018 2:00 PM SURVEILLANCE OPERATOR [facility] Vein [place] [facility] [address] [place], [place] [address] Instructions following Vein Procedure 1. If you [...] Joshua Ku MD was your doctor today. EILLANCE OPERATOR documented in this encounter Progress Notes * Joshua Ku MD - 07/03/2018 2:00 PM SURVEILLANCE OPERATOR OPERATIVE REPORT/RADIOFREQUENCY ABLATION w/MP Date: 07/03/2018 [...] Surgeon: Joshua Ku MD M.D., F.A.C.S., R.P.V.I. Bulb Weeder(s): Annie Brooks R.N.-B.SCamrynNCamryn and Maria Ines Sandoval, Patient Theater Education Teacher/ORA Medications: Xanax 1mg Emla cream - [...] right lower extremity with pain - Primary EILLANCE OPERATOR documented in this encounter Plan of Treatment Not on filedocumented as of this encounter Visit Diagnoses Diagnosis Varicose veins of right lower extremity with pain - Primary Varicose veins of lower extremities with other complications documented in this encounter
--- OUTSIDE RECORDS SUMMARY | 2018-08-24 18:58 | XMS REPORT | Clinical Summary ---
Author Author [facility] Organization [facility] Address Unknown Phone Unavailable Care Team Providers Care Bottle Capping Machine Operator Name Role Phone Jay Rogers MD PCP Joshua Ku MD Unavailable Source Comments Some departments are not documenting in the electronic medical record. If you do not see the information that you expected, contact Release of Information in the Health Information Management department at [phone] for further assistance in locating additional records.[facility] Allergies Comments Active Allergy Reactions Severity Noted [...] Joshua Ku MD 06/11/2018 Refill Vascular Surgery Jsohua Ku MD General Question (Pt wanted to [...] Taken Vital Sign Reading 04/29/2018 11:50 AM REED MAKER Blood Pressure 110/72 - Pulse - - Temperature - - Respiratory Rate - - Oxygen Saturation - - Inhaled Oxygen - Concentration 04/29/2018 11:50 AM REED MAKER Weight 83.9 kg (185 lb) 04/29/2018 11:50 AM REED MAKER Height 165.1 cm (5' 5") 04/29/2018 11:50 AM REED MAKER Body Mass Index 30.79 Plan of Treatment [...] please contact: [facility] [address] [place] [address]
--- OUTSIDE RECORDS SUMMARY | 2018-08-24 18:59 | XMS REPORT | Encounter Summary ---
Author Author [facility] Organization [facility] Address Unknown Phone Unavailable Care Team Providers Care Battery Mechanic Name Role Phone Jay Rogers MD PCP Joshua Ku MD Unavailable Reason for Visit * Reason Comments Prior Authorization Prior Authorization Encounter Details Care Team Description Date Type Department Joshua Ku MD [address] [facility] [place] [address] Prior Authorization; Prior Authorization 06/03/2018 Telephone [facility] [address] [place] [address] Social History Date Tobacco Use [...] - Stella Anderson - 06/10/2018 3:25 PM MOBILE DEVICE ENGINEER Patient is going to be approved for ablation. [employer] OVERTURNED THE DECISION OF MEDICAL POLICY. Referral in chart. LE DEVICE ENGINEER * Telephone Encounter - Stella Anderson - 06/10/2018 2:21 PM MOBILE DEVICE ENGINEER Spoke with patient, she is faxing me a letter. I have also left a message for insurance rep Kesha. I need to speak with her. LE DEVICE ENGINEER * Telephone Encounter - Roselyn Dudley - 06/10/2018 9:18 AM MOBILE DEVICE ENGINEER Who is calling? Sujey Feliz What is [...] before sending: yes Call Back phone number: [phone] LE DEVICE ENGINEER * Telephone Encounter - Joseline Calabrese - 06/09/2018 4:00 PM MOBILE DEVICE ENGINEER Who is calling? Sujey Feliz What is [...] before sending: yes Call Back phone number: [phone] LE DEVICE ENGINEER * Telephone Encounter - Stella Anderson - 06/09/2018 12:46 PM MOBILE DEVICE ENGINEER Spoke with patient, she called and stated [...] have MPs. But ablations will be OOP. LE DEVICE ENGINEER * Telephone Encounter - Doris Bowie RN - 06/04/2018 8:[address] Bass, Patient insurance doesn't cover ablations. [...] in care credit to cover her procedures. LE DEVICE ENGINEER * Telephone Encounter - Stella Anderson - 06/03/2018 3:30 PM MOBILE DEVICE ENGINEER Patient was approved for MPs with Medicaid. Ablations are not a covered benefits. Pt will have to pay OOP for those. I have quoted her for ablations. She would like to speak with a nurse regarding how to proceed with procedures. Please call back at [phone] LE DEVICE ENGINEER documented in this encounter Plan of Treatment Not on filedocumented as of this encounter Visit Diagnoses Not on filedocumented in this encounter
--- OUTSIDE RECORDS SUMMARY | 2018-08-24 18:59 | XMS REPORT | Encounter Summary ---
Author Author [facility] Organization [facility] Address Unknown Phone Unavailable Care Team Providers Care Trimmer Helper Name Role Phone Jay oRgers MD PCP Joshua Ku MD Unavailable Encounter Details Care Team Description Date Type Department Aide Oswald MD [address] [facility] [place] [address] 05/26/2018 Telephone [facility] [address] [place] [address] Social History Date Tobacco Use [...] - Stella Anderson - 05/29/2018 8:32 AM SEAFOOD PROCESS WORKER They just don't, that's their policy. OOD PROCESS WORKER * Telephone Encounter - Andie Carrillo - 05/29/2018 8:09 AM SEAFOOD PROCESS WORKER I am waiting for a fax or letter to specify. I am not sure about the MP's. Would you suggest I call about it? Why does Medicaid not approve ablations? OOD PROCESS WORKER * Telephone Encounter - Stella Anderson - 05/28/2018 11:34 AM SEAFOOD PROCESS WORKER This is pretty typical with Medicaid. Did our 26499/83926 codes get approved? OOD PROCESS WORKER * Telephone Encounter - Clarisa Hutchinson - 05/26/2018 3:36 PM SEAFOOD PROCESS WORKER [employer] INFORMING CPT 96976 IS NOT AUTHORIZED UNDER [place] MEDICAID - CALL REP MARTHA AT [phone] FOR MORE INFORMATION BEFORE THE MED DIRECTOR HAS TO REVIEW OOD PROCESS WORKER documented in this encounter Plan of Treatment Not on filedocumented as of this encounter Visit Diagnoses Not on filedocumented in this encounter
--- OUTSIDE RECORDS SUMMARY | 2018-08-24 18:59 | XMS REPORT | Encounter Summary ---
Author Author [facility] Organization [facility] Address Unknown Phone Unavailable Care Team Providers Care Header Boss Name Role Phone Jay Rogers MD PCP Joshua Ku MD Unavailable Reason for Visit * Reason Comments Surgery Encounter Details Care Team Description Date Type Department Joshua Ku MD [address] [facility] [place] [address] 06/11/2018 Refill [facility] [address] [place] [address] Social History Date Tobacco Use [...]
--- OUTSIDE RECORDS SUMMARY | 2018-08-24 18:59 | XMS REPORT | Encounter Summary ---
Author Author [facility] Organization [facility] Address Unknown Phone Unavailable Care Team Providers Care Book Shelver Name Role Phone Jay Rogers MD PCP Joshua uK MD Unavailable Reason for Visit * Reason Comments General Question Pt wanted to know could she be re submitted to Insurance for vein procedure. Was advised maybe we didnt send all clinical info for it. She asked to recieve a call back to go over options. Encounter Details Care Team Description Date Type Department Joshua Ku MD [address] [facility] [place] [address] General Question (Pt wanted to know could she be re submitted to Insurance for vein procedure. Was advised maybe we didnt send all clinical info for it. She asked to recieve a call back to go over options.) 06/09/2018 Telephone [facility] [address] [place] [address] Social History Date Tobacco Use [...] - Ifeanyi Silveira - 06/13/2018 11:25 AM TYPE COPYIST R/S pt. For 07/03 and 07/04 COPYIST * Telephone Encounter - Roselyn Dudley - 06/13/2018 10:28 AM TYPE COPYIST Pt needs to reschedule her vein procedure due to not having transportation. If time is available for Dr. Oswald, pt is thinking of the following week. Please call [phone] COPYIST * Telephone Encounter - Stella Anderson - 06/09/2018 12:47 PM TYPE COPYIST Notes in original telephone encounter regarding matter. COPYIST * Telephone Encounter - Angela Roberson - 06/09/2018 12:09 PM TYPE COPYIST Pt wanted to know could she be re submitted to Insurance for vein procedure. Was advised maybe we didnt send all clinical info for it. She asked to recieve a call back to go over options. COPYIST documented in this encounter Plan of Treatment Not on filedocumented as of this encounter Visit Diagnoses Not on filedocumented in this encounter
[2018-08-24 19:16] VITALS: BP 130/83
[2018-08-24 19:53] VITALS: BP 130/83
[2018-08-24] MEDS ORDERED: LORazepam INJ 2 MG/ML (ATIVAN) VIAL IV PRN (20:45)
[2018-08-24] MEDS ORDERED: RT-ALBUTEROL HFA (VENTOLIN) PER PUFF IH PRN (20:45)
[2018-08-24] MEDS: RT-ALBUTEROL SULF 2.5 MG/3 ML PRE-MIX VIAL INH SCH (22:05)
[2018-08-25] VITALS (7 sets, daily range): BP systolic 125–146; BP diastolic 80–97
[2018-08-25] MEDS: methylPREDNISolone 40 MG/ML (Solu-MEDROL) VIAL IV SCH ×5 (00:20→23:50)
[2018-08-25] MEDS: RT-ALBUTEROL SULF 2.5 MG/3 ML PRE-MIX VIAL INH SCH ×6 (02:16→22:54)
[2018-08-25 04:26] LABS: BASOPHILS % (AUTO) 0 % (0-10); EOSINOPHILS % (AUTO) 0 % (0-10); HEMATOCRIT 38 % (35-52); HEMOGLOBIN 12.2 G/DL (11.5-16.0); LYMPHOCYTES % (AUTO) 13 % (12-44); MEAN CORPUSCULAR HEMOGLOBIN 29 PG (25-34); MEAN CORPUSCULAR HGB CONC 32 G/DL (32-36); MEAN CORPUSCULAR VOLUME 91 FL (80-99); MONOCYTES # (AUTO) 0.6 X 10^3 (0.0-1.0); MONOCYTES % (AUTO) 7 % (0-12); NEUTROPHILS # (AUTO) 6.4 X 10^3 (1.8-7.8); NEUTROPHILS % (AUTO) 80 % (42-75); PLATELET COUNT 285 10^3/uL (130-400)
[2018-08-25 04:47] LABS: ALANINE AMINOTRANSFERASE 15 U/L (0-55); ALBUMIN 3.6 GM/DL (3.2-4.5); ALKALINE PHOSPHATASE 69 U/L (40-136); BILIRUBIN,TOTAL 0.2 MG/DL (0.1-1.0); BUN/CREATININE RATIO 25; CALCIUM 9.1 MG/DL (8.5-10.1); CARBON DIOXIDE 25 MMOL/L (21-32); CHLORIDE 105 MMOL/L (98-107); GFR ESTIMATED > 60; GLUCOSE 120 MG/DL (70-105); POTASSIUM 3.8 MMOL/L (3.6-5.0); SODIUM 141 MMOL/L (135-145); TOTAL PROTEIN 6.6 GM/DL (6.4-8.2)
--- NOTE | 2018-08-25 05:54 | Pulmonary Consultation ---
History of Present Illness History of Present Illness Date of Consultation 08/25/18 05:49 Time Seen by Provider: 05:49 Date of Admission History of Present Illness 58yo with recent admission secondary to hernia repair surgery and was discharged 08/24. She returned yesterday evening after feeling acutely SOB while at [facility]. Pt was found to be hypoxic with SP02 83% upon arrival . Pt has hx of DVT/PE however she was off anticoagulation secondary to surgery. 6 Allergies and Home Medications Allergies Coded Allergies: aspirin (Verified Allergy, Severe, ANAPHYLAXIS, 08/07/17) ibuprofen (Verified Allergy, Severe, ANAPHYLAXIS, 08/07/17) ketorolac (Verified Allergy, Severe, ANAPHYLAXIS, 08/07/17) tetanus and diphtheria toxoids (Unverified Allergy, Severe, ANAPHYLAXIS, ) aloe (Verified Allergy, Mild, RASH, 08/07/17) latex (Verified Allergy, Mild, RASH, 08/07/17) OCCASIONALLY IS IRRITATING SKIN scopolamine (Verified Allergy, Mild, 08/07/17) iodine (Verified Adverse Reaction, Unknown, 08/07/17) Patient states she got dizzy, diaphoretic and saw stars. Uncoded Allergies: ALOE VERA (Allergy, Unknown, 12/23/05) SILK SUTURES (Adverse Reaction, Unknown, BODY REJECTS SUTURES, 10/07/13) Home Medications Albuterol Sulfate 2.5 Mg/3 Ml Vial.neb, 2.5 MG NEB TID, (Reported) MIXES WITH IPRATROPIUM SOLUTION Albuterol Sulfate 8.5 Gm Hfa.aer.ad, 2 PUFF IH Q4H PRN for SHORTNESS OF BREATH, (Reported) Albuterol Sulfate 2.5 Mg/3 Ml Vial.neb, 2.5 MG NEB Q2H PRN for SHORTNESS OF BREATH, (Reported) Alprazolam 1 Mg Tablet, 1 MG PO Q8H PRN for ANXIETY, (Reported) Calcium Carbonate/Vitamin D3 1 Each Tablet, 1 TAB PO BID, (Reported) Cefprozil 500 Mg Tablet, 500 MG PO BID, (Reported) 10 DAY SUPPLY FILLED 08-18-18 Enoxaparin Sodium 40 Mg/0.4 Ml Syringe, 40 MG SQ BID, (Reported) FILLED 08-11-18 (PLEASE UPDATE START DATE WITH PATIENT) Furosemide 80 Mg Tablet, 40 MG PO DAILY, (Reported) TAKES 1/2 (80MG) TABLET Hydrocodone Bit/Acetaminophen 1 Ea Tablet, 1 EACH PO Q4H PRN for PAIN-MODERATE Prescribed by: TEDDY PHILIP on 08/21/18 1330 Hydrocodone/Acetaminophen 1 Each Tablet, 1 TAB PO Q6H PRN for PAIN-MODERATE, ( Reported) Hyoscyamine Sulfate 0.125 Mg Tab.rapdis, 0.125 MG SL Q6H PRN for ABDOMINAL PAIN, (Reported) Ipratropium [place] 0.2 Mg/1 Ml Solution, 1 VIAL NEB TID, (Reported) MIXES WITH ALBUTEROL SOLUTION Loratadine 10 Mg Tablet, 10 MG PO DAILY, (Reported) Montelukast Sodium 10 Mg Tablet, 10 MG PO HS, (Reported) Pantoprazole Sodium 40 Mg Tablet.dr, 40 MG PO DAILY, (Reported) Potassium Chloride 10 Meq Tablet.er, 20 MEQ PO BID, (Reported) TAKES 2 (10 MEQ) TABLETS Prednisone 20 Mg Tab, PO UD, (Reported) TAKE 3 (20MG) TABS DAILY X 3 DAYS TAKE 2 (20MG) TABS DAILY X 3 DAYS TAKE 1 ( 20MG) TAB DAILY X 3 DAYS FILLED 08-18-18 Promethazine HCl 25 Mg Tablet, 25 MG PO Q6H PRN for NAUSEA/VOMITING-2ND LINE, ( Reported) Warfarin Sodium 4 Mg Tablet, 4 MG PO 1800, (Reported) Past Qlungwi-Dzeery-Klhxfv Hx Past Med/Social Hx: Reviewed Nursing Past Med/Soc Hx Patient Social History Alcohol Use: Denies Use Recreational Drug Use: No (15 yrs ago---IV drug user including Cocaine-CLEAN SINCE 1994) Drug of Choice: + IV COCAINE USE Smoking Status: Former Smoker Type Used: Cigarettes Former Smoker, Quit: Nov 17, 2000 2nd Hand Smoke Exposure: No Recent Foreign Travel: No Contact w/Someone Who Travel: No Recent Infectious Disease Expo: No Recent Hopitalizations: No Physical Abuse: No Sexual Abuse: No Immunizations Up To Date Tetanus Booster (TDap): Unknown PED Vaccines UTD: No Date of Pneumonia Vaccine: Jul 08, 2012 Date of Influenza Vaccine: Mar 11, 2012 Seasonal Allergies Seasonal Allergies: Yes Past Medical History Surgeries: Yes Abdominal, Adenoidectomy, Section, Gallbladder, Hysterectomy, Orthopedic, Tonsillectomy, Vascular Surgery Respiratory: Yes (O2 AT HS 2-3L/NC AND PRN--NOCTURNAL HYPOXIA; ) Asthma, Pneumonia, Chronic Bronchitis, Pulmonary Embolism, COPD Currently Using CPAP: No Currently Using BIPAP: No Cardiac: Yes Chronic Edema/Swelling, Deep Vein Thrombosis, High Cholesterol, Hypertension, Peripheral Vascular Neurological: Yes Neuropathy 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 Disorders: No 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 Disorders: 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, Menopausal Sexually Transmitted Disease: No HIV/AIDS: No 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: Yes Kidney Infection, Bladder Infection, Kidney Stones Gastrointestinal: Yes (MULTIPLE HERNIA REPAIRS; MULTIPLE EGD'S /COLONOSCOPIES/ POLYPECTOMIES) Abdominal Hernia, Gastroesophageal Reflux, Chronic Constipation, Chronic Diarrhea, Hepatitis, Polyps, Hiatal Hernia, Gall Bladder Disease, Irritable Bowel Musculoskeletal: Yes Arthritis Endocrine: Yes ("PRE-DIABETIC" ) HEENT: Yes (NASAL POLYPS) Cataract Loss of Vision: Denies Hearing Impairment: Denies Cancer: No Did You Recieve Any Treatments: No Psychosocial: Yes Anxiety Integumentary: Yes (CHRONIC VENOUS STASIS DERMATITIS AND ULCERS. ) Recent Skin Changes Blood Disorders: Yes (DVT'S/PE'S; PROBABLE PROTEIN C DEFICIENCY) Adverse Reaction/Blood Tranf: No (HAS HAD BLOOD WITH NO PROBLEMS) Family Medical History Reviewed Nursing Family Hx Alcoholism Alcoholism Arthritis Asthma Cancer Cancer of colon Cancer of mouth Cardiovascular disease Cataract Cataracts Chest pain Colon cancer Completed stroke Diabetes mellitus Family history: Allergy Family history: Arthritis Family history: Asthma Family history: Cardiovascular disease Family history: Coronary thrombosis Family history: Diabetes mellitus Family history: Gastrointestinal disease Family history: Hypertension Family history: Thyroid disorder Headache Hearing loss Heart disease History of - anemia History of - respiratory disease Hypercholesterolemia Hypercholesterolemia Infertile Malignant neoplasm of lung Myocardial infarction Myocardial infarction Psychotic disorder Respiratory disorder Stroke No Family History of: AIDS Abdominal aortic aneurysm Abdominal aortic aneurysm Fernando's disease [place]'s disease Alzheimer's disease Aphasia Aphasia Congenital disease Congenital heart disease Congenital heart disease Congestive heart failure Coronary thrombosis Cystic fibrosis Cystic fibrosis Deafness or hearing loss Dementia Dementia Drug abuse Dysphagia Dysphasia Family history: Alzheimer's disease Family history: Breast disease Family history: Glaucoma Family history: Osteoporosis Fibrocystic disease of breast Gastroenteritis Glaucoma Headache disorder Hereditary disease History of - disorder History of drug abuse Human immunodeficiency virus (HIV) seropositivity Infertility Kidney disease Kidney disease Neoplasm Not obtainable due to adoption Osteoporosis Parkinson's disease Parkinson's disease Prostate cancer Psychosocial problem Seizure disorder Seizure disorder Severe allergy Thyroid disease Tuberculosis Tuberculosis Visual disorder Visual impairment Cancer, COPD, Vascular Disease Review of Systems Time Seen by Provider: 06:37 Constitutional: Sweats, Weakness, Malaise; No: Fever, Chills, Other Eyes: No: Pain, Vision change, Conjunctivae inflammation, Eyelid inflammation, Other, Redness ENT: Nose discharge, Nose congestion; No: Ear pain, Ear discharge, Nose pain, Mouth pain, Mouth swelling, Throat pain, Throat swelling, Other Respiratory: Shortness of breath, SOB with excertion, Pleuritic Pain; No: Cough , Dry, Wheezing, Hemoptysis Cardiovascular: Chest Pain, Palpitations, Paroxysmal Noc. Dyspnea; No: Orthopnea Gastrointestinal: No: Nausea, Vomiting, Abdominal Pain, Diarrhea, Constipation 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: No Dysuria, No Frequency, No Incontinence Musculoskeletal: No: neck pain, shoulder pain, arm pain, back pain Neurological: Weakness Sepsis Event Evaluation Height, Weight, BMI Height: 5'5.00" Weight: 185lbs. 7.0oz. 84.854665xz; 30.9 BMI Method:Stated Exam Exam Vital Signs Date Time Temp Pulse Resp B/P (MAP) Pulse Ox O2 Delivery O2 Flow Rate FiO2 08/25/18 03:52 97.4 98 18 133/91 (105) 94 Nasal Cannula 4.00 08/25/18 02:16 93 Nasal Cannula 4.00 08/25/18 01:00 87 08/25/18 00:17 97.2 87 18 139/97 (111) 93 Nasal Cannula 4.00 08/25/18 00:00 93 Nasal Cannula 4.00 08/24/18 22:06 92 Nasal Cannula 4.00 08/24/18 21:04 Nasal Cannula 4.00 08/24/18 20:49 94 Nasal Cannula 5.00 08/24/18 20:00 93 Nasal Cannula 5.00 08/24/18 19:58 98.8 08/24/18 19:53 107 20 130/83 (99) 93 Nasal Cannula 5.00 08/24/18 19:29 111 29 93 Nasal Cannula 5.00 08/24/18 19:16 111 17 130/83 (99) 89 Nasal Cannula 4.00 08/24/18 19:00 106 08/24/18 18:41 93 Nasal Cannula 4.00 08/24/18 17:12 148 83 21 08/24/18 17:09 97 Nasal Cannula 4.00 08/24/18 17:05 98.2 107 16 132/93 (106) 97 Nasal Cannula 4.00 08/24/18 17:03 105 08/24/18 16:44 99.4 110 20 129/89 (102) 94 Room Air 4.00 08/24/18 14:26 93 Nasal Cannula 4.00 08/24/18 14:10 99.4 148 38 190/119 (142) 83 Room Air I & O 08/25/18 07:00 Intake Total 800 ml Balance 800 ml Height & Weight Height: 5'5.00" Weight: 185lbs. 7.0oz. 84.074304yf; 30.9 BMI Method:Stated General Appearance: Anxious, Mild Distress HEENT: PERRL/EOMI, Normal ENT Inspection, Pharynx Normal Neck: Full Range of Motion, Non Tender, Supple Respiratory: Chest Non Tender, Accessory Muscle Use, Decreased Breath Sounds Cardiovascular: Regular Rate, Rhythm Capillary Refill: Less Than 3 Seconds Gastrointestinal: normal bowel sounds, non tender, soft, no organomegaly, no pulsatile mass Extremity: Normal Capillary Refill, Normal Inspection Neurologic/Psychiatric: Alert, Oriented x3 Skin: Normal Color, Warm/Dry Lymphatic: No Adenopathy Results Lab Laboratory Tests 08/24/18 14:25 08/25/18 04:10 Assessment/Plan Assessment/Plan Acute worsening SOB and hypoxia with probable PE - PT is frequently subtheraputic on Coumadin. -Check CT without contrast -Pt will probably need home oxygen Hx of PE/DVT and protein C deficiency -Increase Lovenox to therapeutic dosing 1mg/kg BID -Check troponin and BNP -Restart Coumadin with Lovenox -PT needs life long anticoagulation -She wants to continue with Coumadin -Pt would benefit from home INR machine -She is frequently has subtherapeutic INR S/p NACHO and incisional hernia repair with mesh placement per TERRI Ochoa DO Aug 25, 2018 05:54
[2018-08-25] MEDS ORDERED: ENOXAPARIN 80 MG/0.8 ML (LOVENOX) SYR SC SCH (06:30)
[2018-08-25 06:39] LABS: PROTHROMBIN TIME PATIENT 13.8 SEC (12.2-14.7)
[2018-08-25] MEDS: ENOXAPARIN 100 MG/1 ML (LOVENOX) SYR SC SCH ×2 (06:59→17:32)
[2018-08-25] MEDS ORDERED: RT-ALBUTEROL SULF 2.5 MG/3 ML PRE-MIX VIAL INH PRN ×2 (07:00→07:45)
--- NOTE | 2018-08-25 07:51 | Progress Note (SOAP) ---
Subjective Date Seen by a Provider: Aug 25, 2018 Time Seen by a Provider: 07:25 Subjective/Events-last exam 58-year-old female admitted yesterday afternoon after presenting to the emergency department with acute onset of shortness of breath. She was just in hospital after having surgical repair of ventral hernia. Patient was released from the hospital in the morning of August 24 following improvement with nebulizing treatments. She apparently was at mandaeism in the morning of August 25 and started developing acute shortness of breath. She presented to [facility] ED where she was found to have 83 percent oxygen saturation. During that she did not complain of any leg pain. She does have history of right Noble filter on the right lower extremity placed in May 2009 secondary to DVT. She is on long-term Coumadin and she reports to me there may have been a crossover of her staying on Coumadin when she was released versus Lovenox. Objective Exam Vital Signs Date Time Temp Pulse Resp B/P (MAP) Pulse Ox O2 Delivery O2 Flow Rate FiO2 08/25/18 07:00 93 08/25/18 06:52 91 Nasal Cannula 4.00 08/25/18 04:00 93 Nasal Cannula 4.00 08/25/18 03:52 97.4 98 18 133/91 (105) 94 Nasal Cannula 4.00 08/25/18 02:16 93 Nasal Cannula 4.00 08/25/18 01:00 87 08/25/18 00:17 97.2 87 18 139/97 (111) 93 Nasal Cannula 4.00 08/25/18 00:00 93 Nasal Cannula 4.00 08/24/18 22:06 92 Nasal Cannula 4.00 08/24/18 21:04 Nasal Cannula 4.00 08/24/18 20:49 94 Nasal Cannula 5.00 08/24/18 20:00 93 Nasal Cannula 5.00 08/24/18 19:58 98.8 08/24/18 19:53 107 20 130/83 (99) 93 Nasal Cannula 5.00 08/24/18 19:29 111 29 93 Nasal Cannula 5.00 08/24/18 19:16 111 17 130/83 (99) 89 Nasal Cannula 4.00 08/24/18 19:00 106 08/24/18 18:41 93 Nasal Cannula 4.00 08/24/18 17:12 148 83 21 08/24/18 17:09 97 Nasal Cannula 4.00 08/24/18 17:05 98.2 107 16 132/93 (106) 97 Nasal Cannula 4.00 08/24/18 17:03 105 08/24/18 16:44 99.4 110 20 129/89 (102) 94 Room Air 4.00 08/24/18 14:26 93 Nasal Cannula 4.00 08/24/18 14:10 99.4 148 38 190/119 (142) 83 Room Air I & O 08/25/18 07:00 Intake Total 1050 ml Balance 1050 ml Capillary Refill : Less Than 3 Seconds General Appearance: No Apparent Distress Neck: Supple Respiratory: Wheezing (Faint), Other (No definite rails) Cardiovascular: Regular Rate, Rhythm Gastrointestinal: soft Extremity: Normal Capillary Refill, No Calf Tenderness, Other (Negative Homans sign) Neurologic/Psychiatric: Alert, Oriented x3 Skin: Normal Color Other comments NAME: SUJEY FELIZ [facility] REC#: [id number] PT STATUS: ADM Jesus : 1960 PHYSICIAN: JASON GERARDO ADMIT DATE: 08/24/18/ICU Signed Date of Exam: 08/24/18 CHEST 1 VIEW, AP/PA ONLY CLINICAL INDICATION: Patient with shortness of air. Exam: Portable chest x-ray upright view. Comparisons: Chest x-ray dated 07/18/2018. Findings: Lungs/pleura: There is minimal left basilar atelectasis. There is mild right basilar atelectasis versus infiltrate. The remainder of the lungs are clear. There is no pneumothorax. There is no pleural effusion. Mediastinum: Unremarkable. Pulmonary vasculature: Unremarkable. Heart: Unremarkable. Bones/extrathoracic soft tissue: There are degenerative spurs involving the thoracic spine. Impression: 1: There is mild right basilar atelectasis versus infiltrate. 2: Minimal left basilar atelectasis. Dictated by: Dictated on workstation # [id number] Dict: 08/24/18 1523 Trans: 08/24/18 1743 Results Lab Laboratory Tests 08/24/18 14:22: Prothrombin Time 13.4, INR Comment 1.0, Activated Partial Thromboplast Time 27, D-Dimer 0.53H 08/24/18 14:25: White Blood Count 13.6H, Red Blood Count 4.80, Hemoglobin 13.8, Hematocrit 43, Mean Corpuscular Volume 90, Mean Corpuscular Hemoglobin 29, Mean Corpuscular Hemoglobin Concent 32, Red Cell Distribution Width 15.0H, Platelet Count 382, Mean Platelet Volume 9.3, Neutrophils (%) (Auto) 84H, Lymphocytes (%) (Auto) 12 , Monocytes (%) (Auto) 4, Eosinophils (%) (Auto) 0, Basophils (%) (Auto) 0, Neutrophils # (Auto) 11.5H, Lymphocytes # (Auto) 1.6, Monocytes # (Auto) 0.5, Eosinophils # (Auto) 0.0, Basophils # (Auto) 0.0, Sodium Level 143, Potassium Level 3.6, Chloride Level 104, Carbon Dioxide Level 24, Anion Gap 15H, Blood Urea Nitrogen 12, Creatinine 0.65, Estimat Glomerular Filtration Rate > 60, BUN/ Creatinine Ratio 18, Glucose Level 151H, Calcium Level 10.3H, Corrected Calcium 10.1, Total Bilirubin 0.3, Aspartate Amino Transf (AST/SGOT) 11, Alanine Aminotransferase (ALT/SGPT) 21, Alkaline Phosphatase 90, Total Protein 8.2, Albumin 4.3 08/25/18 04:10: Prothrombin Time 13.8, INR Comment 1.0, White Blood Count 8.0, Red Blood Count 4.21L, Hemoglobin 12.2, Hematocrit 38, Mean Corpuscular Volume 91, Mean Corpuscular Hemoglobin 29, Mean Corpuscular Hemoglobin Concent 32, Red Cell Distribution Width 15.0H, Platelet Count 285, Mean Platelet Volume 9.0, Neutrophils (%) (Auto) 80H, Lymphocytes (%) (Auto) 13, Monocytes (%) (Auto) 7, Eosinophils (%) (Auto) 0, Basophils (%) (Auto) 0, Neutrophils # (Auto) 6.4, Lymphocytes # (Auto) 1.0, Monocytes # (Auto) 0.6, Eosinophils # (Auto) 0.0, Basophils # (Auto) 0.0, Sodium Level 141, Potassium Level 3.8, Chloride Level 105, Carbon Dioxide Level 25, Anion Gap 11, Blood Urea Nitrogen 15, Creatinine 0.60, Estimat Glomerular Filtration Rate > 60, BUN/Creatinine Ratio 25, Glucose Level 120H, Calcium Level 9.1, Corrected Calcium 9.4, Total Bilirubin 0.2, Aspartate Amino Transf (AST/SGOT) 8, Alanine Aminotransferase (ALT/SGPT) 15, Alkaline Phosphatase 69, Total Protein 6.6, Albumin 3.6, B-Type Natriuretic Peptide 35.3 Assessment/Plan Assessment/Plan Assess & Plan/Chief Complaint 1. Dyspnea acute onset during the morning of August 24, 2018. Long-term COPD with frequent asthma exacerbation -Exclude DVT and she is scheduled for venous Doppler lower extremity this morning -Lovenox has also been increased -She is also scheduled this morning for CT chest without contrast 2. Status post ventral hernia repair August 21, 2018 -She is under care of Dr. Nichole and he has already been notified by ED physician yesterday 3. History of DVT 2008 with Noble placement 2010 right lower extremity -Patient desires to stay on warfarin. Warfarin has been restarted at 7.5 mg Clinical Quality Measures DVT/VTE Risk/Contraindication: Risk Factor Score Per Nursin RFS Level Per Nursing on Admit: 4+=Very High LEAH WOLF MD Aug 25, 2018 07:51
--- NOTE | 2018-08-25 08:44 | NUR ---
PATIENT RECENTLY ADMITTED AND MED REC GONE OVER WITH HER IN DETAIL AT [facility]. REVIEWED MED REC IT WAS ORDERED UPON DISCHARGE. NOTE THERE ARE TWO HYDROCODONE ORDERS. SHE HAD ONE PRIOR TO HER DISCHARGE AND ANOTHER WAS PRESCRIBED FOR HER AT DISCHARGE. IT IS UNCLEAR IF SHE HAS FILLED AND PICKED UP THE NEW ORDER AT THIS TIME. IT WAS FOR A LOWER DOSE BUT MORE FREQUENT SIG.
[2018-08-25] MEDS ORDERED: ENOXAPARIN 40 MG/0.4 ML (LOVENOX) SYR SC SCH (09:00)
--- NOTE | 2018-08-25 13:37 | Diagnostic Imaging Report ---
PROCEDURE: US Venous Lower Ext Cheo. TECHNIQUE: Multiple Real-time grayscale images were obtained over the lower extremities in various projections bilaterally. Additional duplex Doppler and color Doppler images were also obtained. INDICATION: Lower extremity pain. FINDINGS: There is no evidence of right or left lower extremity DVT. Both lower extremity deep venous systems demonstrate normal compressibility with normal response to augmentation and Valsalva. No fluid collection or mass is seen. IMPRESSION: No evidence of right or left lower extremity DVT. Dictated by: Dictated on workstation # [id number]
--- NOTE | 2018-08-25 14:14 | Diagnostic Imaging Report ---
INDICATION: Shortness of air. Patient was administered 40.3 mCi technetium 99m aerosolized DTPA to nebulizer and imaging over the chest was performed. Patient was also administered 5.5 mCi technetium 99m MAA intravenously and imaging over the chest was performed in multiple obliquities. There appears to be symmetric ventilation and perfusion to both lungs. No ventilation defects are seen. No definite pleural-based perfusion defects are identified. IMPRESSION: Findings consistent with low probability for pulmonary embolism. Dictated by: Dictated on workstation # [id number]
--- NOTE | 2018-08-25 14:22 | Diagnostic Imaging Report ---
PROCEDURE: CT chest without contrast. TECHNIQUE: Multiple contiguous axial images were obtained through the chest without the use of intravenous contrast. Auto Exposure Controls were utilized during the CT exam to meet ALARA standards for radiation dose reduction. INDICATION: Shortness of air and hypoxia. COMPARISON: Correlation is made with prior chest regressed from one day earlier. FINDINGS: No axillary lymphadenopathy is identified. Hilar and mediastinal evaluation is limited without intravenous contrast but no significant abnormality is seen. No pericardial or pleural fluid is detected. The lungs appear to be fairly clear. No infiltrate is seen. There is some linear atelectasis or scarring of the bilateral lower lobes. No mass is identified. Upper abdomen is unremarkable. IMPRESSION: Essentially unremarkable CT of the chest without contrast. No acute feature is detected. Dictated by: Dictated on workstation # [id number]
[2018-08-25] MEDS: warFARin 7.5 MG (COUMADIN) TAB PO SCH (17:32)
--- NOTE | 2018-08-25 19:29 | CONSULTATION REPORT ---
DATE OF SERVICE: ATTENDING PRIMARY CARE PHYSICIAN: Dr. Rogers. ADMITTING PHYSICIAN: Dr. Nicolas. HISTORY OF PRESENT ILLNESS: The patient is a 58-year-old female known to us. She had initially seen her in 09/2014 for a fall. She has a history of protein C deficiency and is in a hypercoagulable state. She has had previous bilateral lower extremity DVTs as well as pulmonary embolism and is currently on Coumadin. She had developed an area of pain as well as a small sinus tract in the area of a previous incisional hernia repair. On 09/15/2015, she underwent exploration and debridement of a previous mesh and was also found to have a recurrent ventral abdominal incisional hernia, so this was repaired with a new hernia mesh. This was a large defect approximately 5 x 5 cm in size. She does have a multitude of other medical problems and did present to the Emergency Department with lightheadedness and was found to have a urinary tract infection as well as a deep vein thrombosis of the lower extremity on 07/30/2017. She had also reported some episodes of darker red or dark tarry stools and diarrhea, as well as nausea and vomiting, underwent an EGD and colonoscopy, found to have reflux esophagitis stage II, small hiatal hernia approximately 1 cm in size as well as a moderate gastritis. Colonoscopy revealed chronic stage II external and internal hemorrhoids as well as severe sigmoid diverticulosis; however, no polyps or any active bleeding identified. We had seen her in the office for different issues, which was discomfort including a sharp pain just inferior and right lateral to the inferior pole of the previous hernia repair as well as around the umbilicus. Upon Valsalva, she did diastasis recti; however, no recurrent hernias. She did have significant pain upon palpation of the lateral edge inferior to the umbilicus, which may have indicated a hernia between linea semilunaris and a spigelian hernia; however, she also may have had a recurrent hernia inferior to the previous recurrent incisional hernia. She was showing no signs of obstruction and tolerating regular diet and having normal bowel movements. She did have an extended stay in the hospital secondary to her protein C deficiency and her risk factors and she was placed on Lovenox therapy therapeutic doses. She was also started back on her Coumadin. Her vital signs remained stable. She did report some shortness of breath; however, states that this was not a new issue and that with her history of COPD and asthma. This occurred frequently. She was started on breathing treatments as well as steroids and stated her symptoms improved significantly. She was again able to tolerate a regular diet and was having normal bowel function. She was discharged home at approximately 9:00 a.m. on 08/24/2018 and states she went to uatsdin; however, after uatsdin she again felt short of breath. She was unsure if this was related to her asthma or COPD or exacerbation of her respiratory insufficiency due to the environment and the high pollen counts at this time. She was admitted and given supplemental oxygen. She was started back on therapeutic doses of Lovenox. Since admission, she has had a V/Q scan as well as a CT scan of the chest and abdomen, which has not shown any abnormalities or signs of pulmonary embolism. She also underwent bilateral lower extremity ultrasound, which did not show any DVT as well. At this point in time, she appears comfortable. PAST MEDICAL HISTORY: Protein C deficiency, cervical intraepithelial neoplasia, gastroesophageal reflux disease, bilateral lower extremity DVT and pulmonary embolism in 2009, COPD, asthma, hypertension. PAST SURGICAL HISTORY: Laparoscopic cholecystectomy in 2001, sections in 1981 and 1985, tonsillectomy, ventral abdominal incisional hernia repair in 2007, hiatal hernia repair in 2004, left breast biopsy in 2009, which was benign, total hysterectomy in 2008, bilateral knee arthroscopy in 2008, left elbow ulnar nerve transposition x2 in 2011, nasal polypectomy in 01/2017, left knee arthroscopy in 2017, recurrent incisional ventral abdominal incisional hernia repair and explantation of old previous mesh in 09/2015. ALLERGIES: TOPICAL IODINE AND IV, ALOE, ASPIRIN, IBUPROFEN, TETANUS, KETOROLAC, LATEX, SILK SUTURES. MEDICATIONS: Albuterol MDI q.2 hours p.r.n., alprazolam 1 mg q.8 hours p.r.n., fenofibrate 145 mg daily, furosemide 40 mg daily, hydrocodone p.r.n., hyoscyamine 0.125 mg p.r.n., loratadine 10 mg daily, montelukast 10 mg daily, Protonix 40 mg daily, potassium 10 mEq b.i.d., Nasacort b.i.d., Coumadin 5 mg daily. SOCIAL HISTORY: Previous smoker, quit in 2003, 40 pack years. Negative alcohol. FAMILY HISTORY: Sister, uterine cancer. Brother, colon cancer. Mother, hypertension, diabetes, stroke. Father, diabetes, hypertension. Sister and brother with diabetes and hypertension. VITAL SIGNS: Temperature 99.1, blood pressure 125/91, pulse 87, respirations 20, pulse ox 93% on 4 liters nasal cannula. REVIEW OF SYSTEMS: Well-nourished female currently, in no acute distress. She is not experiencing any shortness of breath or difficulty breathing. No chest pain, palpitations, diaphoresis. No nausea, vomiting. No diarrhea, constipation. She does have some moderate incisional pain from her previous laparoscopic lysis of adhesions as well as incisional hernia repair with mesh. No fever, chills. No recent inadvertent weight loss. All other review of systems negative. PHYSICAL EXAMINATION: CHEST: Scattered rales and rhonchi bilaterally. Good breath sounds bilaterally. HEART: Regular, no murmurs. EXTREMITIES: No lower extremity edema. Negative Homans sign. HEENT: No scleral icterus or cervical lymphadenopathy. ABDOMEN: Soft with mild tenderness in the umbilical region of her recent lysis of adhesions as well as her incisional hernia repair with mesh. SKIN: Incisions are clean, dry and intact and healing well. ASSESSMENT AND PLAN: A 58-year-old female with exacerbation of chronic obstructive pulmonary disease as well as asthma and respiratory insufficiency. She will be treated with breathing treatments as well as anti-inflammatories with steroids. All testings at this time has been negative for pulmonary embolism as well as DVT; however, she will need to continue prophylaxis and therapeutic doses of Lovenox due to her protein C deficiency. We will recommend ambulation as tolerated or as much as possible as well as incentive spirometer. Job ID: [id number] DocumentID: [id number] Dictated Date: 08/25/2018 18:10:52 [employer] Operator Date: 08/25/2018 19:29:20 Dictated By: TEDDY PHILIP MD [facility]
[2018-08-25] MEDS: MONTELUKAST 10 MG (SINGULAIR) TAB PO SCH (20:37)
[2018-08-26] VITALS (7 sets, daily range): BP systolic 90–126; BP diastolic 49–97
[2018-08-26 00:16] LABS: BASOPHILS % (AUTO) 0 % (0-10); EOSINOPHILS % (AUTO) 0 % (0-10); HEMATOCRIT 40 % (35-52); HEMOGLOBIN 12.6 G/DL (11.5-16.0); LYMPHOCYTES # (AUTO) 1.2 X 10^3 (1.0-4.0); LYMPHOCYTES % (AUTO) 14 % (12-44); MEAN CORPUSCULAR HEMOGLOBIN 28 PG (25-34); MEAN CORPUSCULAR HGB CONC 32 G/DL (32-36); MEAN CORPUSCULAR VOLUME 90 FL (80-99); MONOCYTES # (AUTO) 0.8 X 10^3 (0.0-1.0); MONOCYTES % (AUTO) 10 % (0-12); NEUTROPHILS # (AUTO) 6.3 X 10^3 (1.8-7.8); NEUTROPHILS % (AUTO) 76 % (42-75); PLATELET COUNT 284 10^3/uL (130-400); RED CELL DISTRIBUTION WIDTH 14.9 % (10.0-14.5); WHITE BLOOD COUNT 8.3 10^3/uL (4.3-11.0)
[2018-08-26 01:23] LABS: PROTHROMBIN TIME PATIENT 13.6 SEC (12.2-14.7)
[2018-08-26] MEDS: RT-ALBUTEROL SULF 2.5 MG/3 ML PRE-MIX VIAL INH SCH ×6 (01:36→22:16)
--- NOTE | 2018-08-26 04:50 | Pulmonary Progress Note ---
Subjective Time Seen by a Provider: 07:24 Subjective/Events-last exam Pt appears to be doing better. No complications noted. Sepsis Event Evaluation Height, Weight, BMI Height: 5'5.00" Weight: 185lbs. 7.0oz. 84.505626rs; 30.9 BMI Method:Stated Exam Exam Vital Signs Date Time Temp Pulse Resp B/P (MAP) Pulse Ox O2 Delivery O2 Flow Rate FiO2 08/26/18 04:19 98.0 80 19 126/97 (107) 93 Nasal Cannula 4.00 08/26/18 04:00 93 Nasal Cannula 4.00 08/26/18 01:36 94 Nasal Cannula 4.00 08/26/18 01:00 77 08/26/18 00:00 92 Nasal Cannula 4.00 08/25/18 23:50 97.6 84 18 133/93 (106) 93 Nasal Cannula 4.00 08/25/18 22:55 97 Nasal Cannula 4.00 08/25/18 21:00 94 Nasal Cannula 4.00 08/25/18 20:38 97.6 96 18 137/91 (106) 92 Nasal Cannula 4.00 08/25/18 20:00 92 Nasal Cannula 4.00 08/25/18 19:00 89 08/25/18 18:30 95 Nasal Cannula 4.00 08/25/18 16:16 93 Nasal Cannula 4.00 08/25/18 15:59 99.1 87 20 125/91 (102) 94 Nasal Cannula 4.00 08/25/18 14:17 98 Nasal Cannula 4.00 08/25/18 13:00 88 08/25/18 12:00 93 Nasal Cannula 4.00 08/25/18 11:51 98.0 67 14 129/80 (96) 93 Nasal Cannula 4.00 08/25/18 10:17 94 Nasal Cannula 4.00 08/25/18 08:45 94 Nasal Cannula 4.00 08/25/18 08:00 93 Nasal Cannula 4.00 08/25/18 07:55 98.2 90 14 146/94 (111) 93 Nasal Cannula 4.00 08/25/18 07:00 93 08/25/18 06:52 91 Nasal Cannula 4.00 I & O 08/26/18 07:00 Intake Total 340 ml Balance 340 ml Height & Weight Height: 5'5.00" Weight: 185lbs. 7.0oz. 84.174098bz; 30.9 BMI Method:Stated General Appearance: No Apparent Distress HEENT: PERRL/EOMI, Normal ENT Inspection, Pharynx Normal Neck: Supple Respiratory: Wheezing (Faint), Other (No definite rails) Cardiovascular: Regular Rate, Rhythm Capillary Refill: Less Than 3 Seconds Gastrointestinal: soft Extremity: Normal Capillary Refill, No Calf Tenderness, Other (Negative Homans sign) Neurologic/Psychiatric: Alert, Oriented x3 Skin: Normal Color Lymphatic: No Adenopathy Results Lab Laboratory Tests 08/24/18 14:25 08/25/18 04:10 08/26/18 00:05 Assessment/Plan Assessment/Plan Acute worsening SOB and hypoxia with probable PE - PT is frequently subtheraputic on Coumadin. -CT without contrast - - No lung mass or infiltration -Pt has home nocturnal oxygen however no portable oxygen. She needs ambulatory desat test for portable oxygen -Troponins negative x 3 Hx of PE/DVT and protein C deficiency -- No acute DVT/PE - Lovenox to therapeutic dosing 1mg/kg BID - troponin and BNP - is negative -Dopplers bilateral are negative - Coumadin bridge with Lovenox -PT needs life long anticoagulation with Coumadin -She wants to continue with Coumadin -Pt would benefit from home INR machine -V/Q scan is negative S/p NACHO and incisional hernia repair with mesh placement per TERRI Ochoa DO Aug 26, 2018 04:50
[2018-08-26] MEDS: ENOXAPARIN 100 MG/1 ML (LOVENOX) SYR SC SCH ×2 (05:46→17:58)
--- NOTE | 2018-08-26 07:30 | History & Physicial ---
History of Present Illness History of Present Illness Reason for visit/HPI 58-year-old female admitted yesterday afternoon after presenting to the emergency department with acute onset of shortness of breath. She was just in hospital after having surgical repair of ventral hernia. Patient was released from the hospital in the morning of August 24 following improvement with nebulizing treatments. She apparently was at buddhist in the morning of August 25 and started developing acute shortness of breath. She presented to [facility] ED where she was found to have 83 percent oxygen saturation. During that she did not complain of any leg pain. She does have history of right Lg filter on the right lower extremity placed in May 2009 secondary to DVT. She is on long-term Coumadin and she reports to me there may have been a crossover of her staying on Coumadin when she was released versus Lovenox. Date of Admission Aug 24, 2018 at 16:50 Date Seen by a Provider: Aug 25, 2018 Time Seen by a Provider: 07:15 I consulted on this patient on 08/26/18 07:26 Attending Physician Mallory Nicolas DO Admitting Physician Jay Wolf MD Consult Allergies and Home Medications Allergies Coded Allergies: aspirin (Verified Allergy, Severe, ANAPHYLAXIS, 08/07/17) ibuprofen (Verified Allergy, Severe, ANAPHYLAXIS, 08/07/17) ketorolac (Verified Allergy, Severe, ANAPHYLAXIS, 08/07/17) tetanus and diphtheria toxoids (Unverified Allergy, Severe, ANAPHYLAXIS, ) aloe (Verified Allergy, Mild, RASH, 08/07/17) latex (Verified Allergy, Mild, RASH, 08/07/17) OCCASIONALLY IS IRRITATING SKIN scopolamine (Verified Allergy, Mild, 08/07/17) iodine (Verified Adverse Reaction, Unknown, 08/07/17) Patient states she got dizzy, diaphoretic and saw stars. Uncoded Allergies: ALOE VERA (Allergy, Unknown, 12/23/05) SILK SUTURES (Adverse Reaction, Unknown, BODY REJECTS SUTURES, 10/07/13) Home Medications Albuterol Sulfate 2.5 Mg/3 Ml Vial.neb, 2.5 MG NEB TID, (Reported) MIXES WITH IPRATROPIUM SOLUTION Albuterol Sulfate 8.5 Gm Hfa.aer.ad, 2 PUFF IH Q4H PRN for SHORTNESS OF BREATH, (Reported) Albuterol Sulfate 2.5 Mg/3 Ml Vial.neb, 2.5 MG NEB Q2H PRN for SHORTNESS OF BREATH, (Reported) Alprazolam 1 Mg Tablet, 1 MG PO Q8H PRN for ANXIETY, (Reported) Calcium Carbonate/Vitamin D3 1 Each Tablet, 1 TAB PO BID, (Reported) Cefprozil 500 Mg Tablet, 500 MG PO BID, (Reported) 10 DAY SUPPLY FILLED 08-18-18 Enoxaparin Sodium 40 Mg/0.4 Ml Syringe, 40 MG SQ BID, (Reported) FILLED 08-11-18 (PLEASE UPDATE START DATE WITH PATIENT) Furosemide 80 Mg Tablet, 40 MG PO DAILY, (Reported) TAKES 1/2 (80MG) TABLET Hydrocodone Bit/Acetaminophen 1 Ea Tablet, 1 EACH PO Q4H PRN for PAIN-MODERATE Prescribed by: TEDDY NICHOLE on 08/21/18 1330 Hydrocodone/Acetaminophen 1 Each Tablet, 1 TAB PO Q6H PRN for PAIN-MODERATE, ( Reported) Hyoscyamine Sulfate 0.125 Mg Tab.rapdis, 0.125 MG SL Q6H PRN for ABDOMINAL PAIN, (Reported) Ipratropium [place] 0.2 Mg/1 Ml Solution, 1 VIAL NEB TID, (Reported) MIXES WITH ALBUTEROL SOLUTION Loratadine 10 Mg Tablet, 10 MG PO DAILY, (Reported) Montelukast Sodium 10 Mg Tablet, 10 MG PO HS, (Reported) Pantoprazole Sodium 40 Mg Tablet.dr, 40 MG PO DAILY, (Reported) Potassium Chloride 10 Meq Tablet.er, 20 MEQ PO BID, (Reported) TAKES 2 (10 MEQ) TABLETS Prednisone 20 Mg Tab, PO UD, (Reported) TAKE 3 (20MG) TABS DAILY X 3 DAYS TAKE 2 (20MG) TABS DAILY X 3 DAYS TAKE 1 ( 20MG) TAB DAILY X 3 DAYS FILLED 08-18-18 Promethazine HCl 25 Mg Tablet, 25 MG PO Q6H PRN for NAUSEA/VOMITING-2ND LINE, ( Reported) Warfarin Sodium 4 Mg Tablet, 4 MG PO 1800, (Reported) Patient Home Medication List Home Medication List Reviewed: Yes Past Tffxszp-Hihwpu-Oazezl Hx Patient Social History Marrital Status: Alcohol Use: Denies Use Recreational Drug Use: No (15 yrs ago---IV drug user including Cocaine-CLEAN SINCE 1994) Drug of Choice: + IV COCAINE USE Smoking Status: Former Smoker Former Smoker, Quit: Nov 17, 2000 Type Used: Cigarettes 2nd Hand Smoke Exposure: No Recent Foreign Travel: No Contact w/other who traveled: No Recent Hopitalizations: No Recent Infectious Disease Expo: No Immunizations Up To Date Tetanus Booster (TDap): Unknown Pediatric: No Date of Pneumonia Vaccine: Jul 08, 2012 Date of Influenza Vaccine: Mar 11, 2012 Seasonal Allergies Seasonal Allergies: Yes Surgeries Yes Abdominal, Adenoidectomy, Section, Gallbladder, Hysterectomy, Orthopedic, Tonsillectomy, Vascular Surgery Respiratory Yes (O2 AT HS 2-3L/NC AND PRN--NOCTURNAL HYPOXIA; ) Currently Using CPAP: No Currently Using BIPAP: No Cardiovascular Yes Chronic Edema/Swelling, Deep Vein Thrombosis, High Cholesterol, Hypertension, Peripheral Vascular Neurological Yes Neuropathy 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 System Hx 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 Disorders: No Sexually Transmitted Disease: No HIV/AIDS: No 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 Disorders: Denies 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, Menopausal 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 Yes Kidney Infection, Bladder Infection, Kidney Stones Gastrointestinal Yes (MULTIPLE HERNIA REPAIRS; MULTIPLE EGD'S /COLONOSCOPIES/POLYPECTOMIES) Abdominal Hernia, Gastroesophageal Reflux, Chronic Constipation, Chronic Diarrhea, Hepatitis, Polyps, Hiatal Hernia, Gall Bladder Disease, Irritable Bowel Musculoskeletal Yes Arthritis Endocrine History of Endocrine Disorders: Yes ("PRE-DIABETIC" ) HEENT History of HEENT Disorders: Yes (NASAL POLYPS) HEENT Disorders: Cataract Loss of Vision: Denies Hearing Impairment: Denies Cancer No Did You Recieve Any Treatments: No Psychosocial History of Psychiatric Problem: Yes Behavioral Health Disorders: Anxiety Integumentary History of Skin or Integumenta: Yes (CHRONIC VENOUS STASIS DERMATITIS AND ULCERS. ) Skin/Integumentary Disorders: Recent Skin Changes Blood Transfusions History of Blood Disorders: Yes (DVT'S/PE'S; PROBABLE PROTEIN C DEFICIENCY) Adverse Reaction to a Blood Tr: No (HAS HAD BLOOD WITH NO PROBLEMS) Family Medical History Significant Family History: Cancer, COPD, Vascular Disease Family Hx: Alcoholism Alcoholism Arthritis Asthma Cancer Cancer of colon Cancer of mouth Cardiovascular disease Cataract Cataracts Chest pain Colon cancer Completed stroke Diabetes mellitus Family history: Allergy Family history: Arthritis Family history: Asthma Family history: Cardiovascular disease Family history: Coronary thrombosis Family history: Diabetes mellitus Family history: Gastrointestinal disease Family history: Hypertension Family history: Thyroid disorder Headache Hearing loss Heart disease History of - anemia History of - respiratory disease Hypercholesterolemia Hypercholesterolemia Infertile Malignant neoplasm of lung Myocardial infarction Myocardial infarction Psychotic disorder Respiratory disorder Stroke No Family History of: AIDS Abdominal aortic aneurysm Abdominal aortic aneurysm Fernando's disease Miller's disease Alzheimer's disease Aphasia Aphasia Congenital disease Congenital heart disease Congenital heart disease Congestive heart failure Coronary thrombosis Cystic fibrosis Cystic fibrosis Deafness or hearing loss Dementia Dementia Drug abuse Dysphagia Dysphasia Family history: Alzheimer's disease Family history: Breast disease Family history: Glaucoma Family history: Osteoporosis Fibrocystic disease of breast Gastroenteritis Glaucoma Headache disorder Hereditary disease History of - disorder History of drug abuse Human immunodeficiency virus (HIV) seropositivity Infertility Kidney disease Kidney disease Neoplasm Not obtainable due to adoption Osteoporosis Parkinson's disease Parkinson's disease Prostate cancer Psychosocial problem Seizure disorder Seizure disorder Severe allergy Thyroid disease Tuberculosis Tuberculosis Visual disorder Visual impairment Review of Systems Constitutional: see HPI Physical Exam Vital Signs Vital Signs - First Documented 08/24/18 08/24/18 08/24/18 14:10 14:26 17:12 Temp 99.4 Pulse 148 Resp 38 B/P (MAP) 190/119 (142) Pulse Ox 83 O2 Delivery Room Air O2 Flow Rate 4.00 FiO2 21 Capillary Refill : Less Than 3 Seconds Height, Weight, BMI Height: 5'5.00" Weight: 184lbs. 5.0oz. 83.340198wb; 30.9 BMI Method:Stated General Appearance: No Apparent Distress Eyes: Bilateral Eye Normal Inspection HEENT: Pharynx Normal Neck: Normal Inspection, Supple Respiratory: Wheezing (mild throughout) Cardiovascular: Regular Rate, Rhythm Gastrointestinal: Soft Rectal: Deferred Back: Normal Inspection Extremity: Normal Capillary Refill, Non Tender Neurologic/Psychiatric: Alert, Oriented x3 Comments NAME: SUJEY FELIZ [facility] REC#: [id number] PT STATUS: ADM Jesus : 1960 PHYSICIAN: JASON GERARDO ADMIT DATE: 08/24/18/ICU Signed Date of Exam: 08/24/18 CHEST 1 VIEW, AP/PA ONLY CLINICAL INDICATION: Patient with shortness of air. Exam: Portable chest x-ray upright view. Comparisons: Chest x-ray dated 07/18/2018. Findings: Lungs/pleura: There is minimal left basilar atelectasis. There is mild right basilar atelectasis versus infiltrate. The remainder of the lungs are clear. There is no pneumothorax. There is no pleural effusion. Mediastinum: Unremarkable. Pulmonary vasculature: Unremarkable. Heart: Unremarkable. Bones/extrathoracic soft tissue: There are degenerative spurs involving the thoracic spine. Impression: 1: There is mild right basilar atelectasis versus infiltrate. 2: Minimal left basilar atelectasis. Dictated by: Dictated on workstation # [id number] Dict: 08/24/18 1523 Trans: 08/24/18 1743 Interpreted by: WILY COUGHLIN MD Electronically signed by: WILY COUGHLIN MD 08/24/18 1743 Assessment/Plan Assessment and Plan 1. Dyspnea acute onset during the morning of August 24, 2018. Long-term COPD with frequent asthma exacerbation -Exclude DVT and she is scheduled for venous Doppler lower extremity this morning -Lovenox has also been increased -She is also scheduled this morning for CT chest without contrast 2. Status post ventral hernia repair August 21, 2018 -She is under care of Dr. Nichole and he has already been notified by ED physician yesterday 3. History of DVT 2009 with Circle placement 2009 right lower extremity -Patient desires to stay on warfarin. Warfarin has been restarted at 7.5 mg Admission Diagnosis 1. Dyspnea acute onset during the morning of August 24, 2018. Long-term COPD with frequent asthma exacerbation 2. Status post ventral hernia repair August 21, 2018 3. History of DVT 2008 with Circle placement 2009 right lower extremity Admission Status: Inpatient Order (span 2 midnights) Reason for Inpatient Admission: Admitted for exclusion of DVT and possibly pulmonary embolism Clinical Quality Measures DVT/VTE Risk/Contraindication: Risk Factor Score Per Nursin RFS Level Per Nursing on Admit: 4+=Very High JAY WOLF MD Aug 26, 2018 07:29
--- NOTE | 2018-08-26 07:35 | Progress Note (SOAP) ---
Subjective Date Seen by a Provider: Aug 26, 2018 Time Seen by a Provider: 07:20 Subjective/Events-last exam Patient was without any significant shortness of breath overnight. She continues to utilize nasal cannula oxygen at 4 L. Objective Exam Vital Signs Date Time Temp Pulse Resp B/P (MAP) Pulse Ox O2 Delivery O2 Flow Rate FiO2 08/26/18 04:19 98.0 80 19 126/97 (107) 93 Nasal Cannula 4.00 08/26/18 04:00 93 Nasal Cannula 4.00 08/26/18 01:36 94 Nasal Cannula 4.00 08/26/18 01:00 77 08/26/18 00:00 92 Nasal Cannula 4.00 08/25/18 23:50 97.6 84 18 133/93 (106) 93 Nasal Cannula 4.00 08/25/18 22:55 97 Nasal Cannula 4.00 08/25/18 21:00 94 Nasal Cannula 4.00 08/25/18 20:38 97.6 96 18 137/91 (106) 92 Nasal Cannula 4.00 08/25/18 20:00 92 Nasal Cannula 4.00 08/25/18 19:00 89 08/25/18 18:30 95 Nasal Cannula 4.00 08/25/18 16:16 93 Nasal Cannula 4.00 08/25/18 15:59 99.1 87 20 125/91 (102) 94 Nasal Cannula 4.00 08/25/18 14:17 98 Nasal Cannula 4.00 08/25/18 13:00 88 08/25/18 12:00 93 Nasal Cannula 4.00 08/25/18 11:51 98.0 67 14 129/80 (96) 93 Nasal Cannula 4.00 08/25/18 10:17 94 Nasal Cannula 4.00 08/25/18 08:45 94 Nasal Cannula 4.00 08/25/18 08:00 93 Nasal Cannula 4.00 08/25/18 07:55 98.2 90 14 146/94 (111) 93 Nasal Cannula 4.00 I & O 08/26/18 07:00 Intake Total 340 ml Balance 340 ml Capillary Refill : Less Than 3 Seconds General Appearance: No Apparent Distress Neck: Supple Respiratory: Lungs Clear (With mild wheezing) Cardiovascular: Regular Rate, Rhythm Gastrointestinal: soft Extremity: Normal Capillary Refill, No Calf Tenderness Neurologic/Psychiatric: Oriented x3 Skin: Normal Color Results Lab Laboratory Tests 4/15/19 11:52: Troponin I < 0.028 08/25/18 17:48: Troponin I < 0.028 08/26/18 00:05: Troponin I < 0.028, White Blood Count 8.3, Red Blood Count 4.45, Hemoglobin 12.6 , Hematocrit 40, Mean Corpuscular Volume 90, Mean Corpuscular Hemoglobin 28, Mean Corpuscular Hemoglobin Concent 32, Red Cell Distribution Width 14.9H, Platelet Count 284, Mean Platelet Volume 9.0, Neutrophils (%) (Auto) 76H, Lymphocytes (%) (Auto) 14, Monocytes (%) (Auto) 10, Eosinophils (%) (Auto) 0, Basophils (%) (Auto) 0, Neutrophils # (Auto) 6.3, Lymphocytes # (Auto) 1.2, Monocytes # (Auto) 0.8, Eosinophils # (Auto) 0.0, Basophils # (Auto) 0.0, Prothrombin Time 13.6, INR Comment 1.0 Assessment/Plan Assessment/Plan Assess & Plan/Chief Complaint 1. Dyspnea acute onset during the morning of August 24, 2018. Long-term COPD with frequent asthma exacerbation -Exclude DVT and she is scheduled for venous Doppler lower extremity this morning -Lovenox has also been increased -She is also scheduled this morning for CT chest without contrast 08/26 -Patient to be transferred to [facility] as her CT of chest was without acute findings. -Additionally the VQ scan was was low probability for PE. Negative venous Dopplers of the lower extremities 2. Status post ventral hernia repair August 21, 2018 -She is under care of Dr. Nichole and he has already been notified by ED physician yesterday 08/26 -Consultation noted 3. History of DVT 2008 with [place] placement 2009 right lower extremity -Patient desires to stay on warfarin. Warfarin has been restarted at 7.5 mg 08/26 -Continue to monitor INR as well as continue with Lovenox for now Clinical Quality Measures Admission Status Admission Dx 1. Dyspnea acute onset during the morning of August 24, 2018. Long-term COPD with frequent asthma exacerbation 2. Status post ventral hernia repair August 21, 2018 3. History of DVT 2008 with Lg placement 2009 right lower extremity DVT/VTE Risk/Contraindication: Risk Factor Score Per Nursin RFS Level Per Nursing on Admit: 4+=Very High LUCIANO,LEAH J MD Aug 26, 2018 07:35
[2018-08-26] MEDS: predniSONE 10 MG TAB PO SCH (08:41)
--- NOTE | 2018-08-26 11:15 | NUR ---
Pastoral care visit.
--- NOTE | 2018-08-26 13:06 | Progress Note (SOAP) ---
Subjective Date Seen by a Provider: Aug 26, 2018 Time Seen by a Provider: 12:00 Subjective/Events-last exam overall doing well. appears comfortable. tolerating diet and having bowel fxn. wounds clean/dry, no recurrent hernias. respiratory status stable, no SOB. Objective Exam Vital Signs Date Time Temp Pulse Resp B/P (MAP) Pulse Ox O2 Delivery O2 Flow Rate FiO2 08/26/18 12:57 95 08/26/18 12:00 82 15 Nasal Cannula 4.00 08/26/18 10:34 97 Nasal Cannula 4.00 08/26/18 09:00 79 17 122/86 (98) Nasal Cannula 4.00 08/26/18 09:00 94 Nasal Cannula 4.00 08/26/18 08:00 97.2 85 17 122/86 (98) 94 Nasal Cannula 4.00 08/26/18 08:00 93 Nasal Cannula 4.00 08/26/18 07:21 95 Nasal Cannula 4.00 08/26/18 07:00 69 08/26/18 04:19 98.0 80 19 126/97 (107) 93 Nasal Cannula 4.00 08/26/18 04:00 93 Nasal Cannula 4.00 08/26/18 01:36 94 Nasal Cannula 4.00 08/26/18 01:00 77 08/26/18 00:00 92 Nasal Cannula 4.00 08/25/18 23:50 97.6 84 18 133/93 (106) 93 Nasal Cannula 4.00 08/25/18 22:55 97 Nasal Cannula 4.00 08/25/18 21:00 94 Nasal Cannula 4.00 08/25/18 20:38 97.6 96 18 137/91 (106) 92 Nasal Cannula 4.00 08/25/18 20:00 92 Nasal Cannula 4.00 08/25/18 19:00 89 08/25/18 18:30 95 Nasal Cannula 4.00 08/25/18 16:16 93 Nasal Cannula 4.00 08/25/18 15:59 99.1 87 20 125/91 (102) 94 Nasal Cannula 4.00 08/25/18 14:17 98 Nasal Cannula 4.00 I & O 08/26/18 07:00 Intake Total 340 ml Balance 340 ml Capillary Refill : Less Than 3 Seconds General Appearance: No Apparent Distress HEENT: PERRL/EOMI Neck: Full Range of Motion, Normal Inspection Respiratory: Decreased Breath Sounds, Wheezing Cardiovascular: Regular Rate, Rhythm Gastrointestinal: normal bowel sounds, soft, tenderness, other (inc clean/dry) Extremity: Normal Capillary Refill Neurologic/Psychiatric: Alert Skin: Normal Color Lymphatic: No Adenopathy Results Lab Laboratory Tests 08/25/18 17:48: Troponin I < 0.028 08/26/18 00:05: Troponin I < 0.028, White Blood Count 8.3, Red Blood Count 4.45, Hemoglobin 12.6 , Hematocrit 40, Mean Corpuscular Volume 90, Mean Corpuscular Hemoglobin 28, Mean Corpuscular Hemoglobin Concent 32, Red Cell Distribution Width 14.9H, Platelet Count 284, Mean Platelet Volume 9.0, Neutrophils (%) (Auto) 76H, Lymphocytes (%) (Auto) 14, Monocytes (%) (Auto) 10, Eosinophils (%) (Auto) 0, Basophils (%) (Auto) 0, Neutrophils # (Auto) 6.3, Lymphocytes # (Auto) 1.2, Monocytes # (Auto) 0.8, Eosinophils # (Auto) 0.0, Basophils # (Auto) 0.0, Prothrombin Time 13.6, INR Comment 1.0 Assessment/Plan Assessment/Plan Assess & Plan/Chief Complaint exacerabation COPD/asthma s/p inc hernia repair and NACHO. u/s LE negative DVT. v/q scan low probability PE. continued on lovenox and coumadin. ambulate, breathing tx and IS as much as possible. doing ok from surgical standpoint. Clinical Quality Measures DVT/VTE Risk/Contraindication: Risk Factor Score Per Nursin RFS Level Per Nursing on Admit: 4+=Very High TEDDY PHILIP MD Aug 26, 2018 13:06
[2018-08-26] MEDS: warFARin 7.5 MG (COUMADIN) TAB PO SCH (17:58)
[2018-08-26] MEDS: MONTELUKAST 10 MG (SINGULAIR) TAB PO SCH (19:42)
[2018-08-27] MEDS: RT-ALBUTEROL SULF 2.5 MG/3 ML PRE-MIX VIAL INH SCH ×3 (03:15→10:25)
[2018-08-27 03:45] VITALS: BP 119/68
[2018-08-27 05:22] LABS: INR 1.4 (0.8-1.4); PROTHROMBIN TIME PATIENT 17.9 SEC (12.2-14.7)
[2018-08-27] MEDS: ENOXAPARIN 100 MG/1 ML (LOVENOX) SYR SC SCH (06:52)
--- NOTE | 2018-08-27 07:30 | Discharge Inst-Simple/Standard ---
Discharge Inst-Standard Discharge Medications New, Converted or Re-Newed RX: Other Patient Instructions/Follow Up Plan of Care/Instructions/FU: Dr Wolf on 09/02 (Saturday) Activity as Tolerated: Yes Discharge Diet: Low Fat/Low Cholesterol Return to The Hospital For: Worsening SOB Other Inst to Patient Take Coumadin 7.5mg today and have INR tomorrow at [facility]. Further instruction to follow tomorrow after results of INR. Continue to taper prednisone at 40mg daily for 3 days then 20 mg daily for 3 days. LEAH WOLF MD Aug 27, 2018 07:30
--- NOTE | 2018-08-27 07:36 | Discharge Summary ---
Diagnosis/Chief Complaint Date of Admission Aug 26, 2018 at 07:53 Date of Discharge August 27, 2018 Discharge Date: Aug 27, 2018 Discharge Time: 11:00 Admission Diagnosis Admission Diagnosis 1. Dyspnea acute onset during the morning of August 24, 2018. Long-term COPD with frequent asthma exacerbation 2. Status post ventral hernia repair August 21, 2018 3. History of DVT 2009 with Lg placement 2009 right lower extremity. Discharge Diagnosis 1. Dyspnea acute onset--pulmonary embolism excluded 2. Exacerbation of COPD 2. Status post ventral hernia repair August 21, 2018 3. History of DVT 2009 with [place] placement 2010 right lower extremity Reason Hospital Visit 58-year-old female admitted yesterday afternoon after presenting to the emergency department with acute onset of shortness of breath. She was just in hospital after having surgical repair of ventral hernia. Patient was released from the hospital in the morning of August 24 following improvement with nebulizing treatments. She apparently was [facility] in the morning of August 25 and started developing acute shortness of breath. She presented to [facility] ED where she was found to have 83 percent oxygen saturation. During that she did not complain of any leg pain. She does have history of right Lg filter on the right lower extremity placed in May 2009 secondary to DVT. She is on long-term Coumadin and she reports to me there may have been a crossover of her staying on Coumadin when she was released versus Lovenox. Discharge Summary Hospital Course Was the Problem List Reviewed?: Yes Hospital Course patient was admitted during the afternoon August 24, 2018 after having episode of hypoxia and dyspnea. Patient had been released from hospital on August 23, 2018 and had been doing well She was recently admitted for ventral hernia repair. Patient had acute episode of dyspnea and prompted her to seek ED care. With patient's PT and INR subtherapeutic she was possibly felt to have a pulmonary embolism. She was placed back on Lovenox. Dr. Jackson pulmonology as well as Dr. Nichole consulted. Ultimately on August 25 she underwent lower extremity carotid Dopplers that were negative. She is allergic to iodine and underwent ventilation perfusion scan which was low Probability for PE. Her CT of the chest was also noted to be without acute findings. Patient required nasal cannula oxygen, steroid therapy, as well as intensive breathing treatments to correct her dyspnea. She remained afebrile and was felt ready for dismissal in the morning of August 27, 2018 Labs Laboratory Tests 08/24/18 14:22: D-Dimer 0.53H 08/24/18 14:25: White Blood Count 13.6H, Red Cell Distribution Width 15.0H, Neutrophils (%) ( Auto) 84H, Neutrophils # (Auto) 11.5H, Anion Gap 15H, Glucose Level 151H, Calcium Level 10.3H 08/25/18 04:10: Red Cell Distribution Width 15.0H, Neutrophils (%) (Auto) 80H, Glucose Level 120H, Red Blood Count 4.21L 08/25/18 11:52: 08/25/18 17:48: 08/26/18 00:05: Red Cell Distribution Width 14.9H, Neutrophils (%) (Auto) 76H 08/27/18 04:10: Prothrombin Time 17.9H Procedures None. Discharge Physical Examination Allergies: Coded Allergies: aspirin (Verified Allergy, Severe, ANAPHYLAXIS, 08/07/17) ibuprofen (Verified Allergy, Severe, ANAPHYLAXIS, 08/07/17) ketorolac (Verified Allergy, Severe, ANAPHYLAXIS, 08/07/17) tetanus and diphtheria toxoids (Unverified Allergy, Severe, ANAPHYLAXIS, ) aloe (Verified Allergy, Mild, RASH, 08/07/17) latex (Verified Allergy, Mild, RASH, 08/07/17) OCCASIONALLY IS IRRITATING SKIN scopolamine (Verified Allergy, Mild, 08/07/17) iodine (Verified Adverse Reaction, Unknown, 08/07/17) Patient states she got dizzy, diaphoretic and saw stars. Uncoded Allergies: ALOE VERA (Allergy, Unknown, 12/23/05) SILK SUTURES (Adverse Reaction, Unknown, BODY REJECTS SUTURES, 10/07/13) Vitals & I&Os Vital Signs Date Time Temp Pulse Resp B/P (MAP) Pulse Ox O2 Delivery O2 Flow Rate FiO2 08/27/18 03:45 97.6 87 16 119/68 (85) 96 Nasal Cannula 4.00 08/24/18 17:12 21 Discharge Home Medications Reviewed and agree with Discharge Medication list on patient's Discharge Instruction sheet Instructions to Patient/Family Please see electronic discharge instructions given to patient. Clinical Quality Measures DVT/VTE Risk/Contraindication: Risk Factor Score Per Nursin RFS Level Per Nursing on Admit: 4+=Very High LEAH WOLF MD Aug 27, 2018 07:36
[2018-08-27 08:00] VITALS: BP 104/56
[2018-08-27] MEDS: predniSONE 10 MG TAB PO SCH (08:18)
[2018-08-27 13:10] VITALS: BP 104/56
--- NOTE | 2018-08-27 13:10 | NUR ---
SUJEY FELIZ demonstrates understanding of discharge instructions and accurately returns instructions upon questioning. Copy of Post-Discharge Instructions and Medication Discharge Instructions given to PATIENT. SUJEY FELIZ is able to manage continuing needs after discharge. Patients belongings returned to PATIENT. Skin dry and intact; no breakdown noted. Patient discharged from [facility] on 08/27/18 at 1310. SUJEY FELIZ left floor via W/C, accompanied by STAFF.
--- NOTE | 2018-08-27 13:18 | Pulmonary Progress Note ---
Subjective Time Seen by a Provider: 13:18 Subjective/Events-last exam PT wants to go home. Sepsis Event Evaluation Height, Weight, BMI Height: 5'5.00" Weight: 184lbs. 5.0oz. 83.896867xl; 30.9 BMI Method:Stated Exam Exam Vital Signs Date Time Temp Pulse Resp B/P (MAP) Pulse Ox O2 Delivery O2 Flow Rate FiO2 08/27/18 10:25 95 Nasal Cannula 3.00 08/27/18 08:00 94 Nasal Cannula 4.00 08/27/18 08:00 98.7 120 18 104/56 (72) 95 Nasal Cannula 4.00 08/27/18 07:40 94 Nasal Cannula 3.00 08/27/18 03:45 97.6 87 16 119/68 (85) 96 Nasal Cannula 4.00 08/27/18 03:15 95 Nasal Cannula 3.00 08/26/18 23:40 96.9 79 16 111/75 (87) 98 Nasal Cannula 4.00 08/26/18 22:16 98 Nasal Cannula 3.50 08/26/18 19:42 95 Nasal Cannula 3.50 08/26/18 19:40 Nasal Cannula 4.00 08/26/18 19:39 98.0 96 16 90/49 (63) 95 Nasal Cannula 4.00 08/26/18 16:22 97.7 71 16 116/77 (90) 96 Nasal Cannula 4.00 08/26/18 16:00 94 Nasal Cannula 4.00 I & O 08/27/18 07:00 Intake Total 440 ml Output Total 750 ml Balance -310 ml Height & Weight Height: 5'5.00" Weight: 184lbs. 5.0oz. 83.791321sa; 30.9 BMI Method:Stated General Appearance: No Apparent Distress HEENT: PERRL/EOMI Neck: Full Range of Motion, Normal Inspection Respiratory: No Accessory Muscle Use, No Respiratory Distress, Decreased Breath Sounds Cardiovascular: Regular Rate, Rhythm Capillary Refill: Less Than 3 Seconds Gastrointestinal: normal bowel sounds, soft, tenderness, other (inc clean/dry) Extremity: Normal Capillary Refill Neurologic/Psychiatric: Alert Skin: Normal Color Lymphatic: No Adenopathy Results Lab Laboratory Tests 08/26/18 00:05 Assessment/Plan Assessment/Plan Acute worsening SOB and hypoxia- Pt is feeling much improved - PT is frequently subtheraputic on Coumadin. -CT without contrast - - No lung mass or infiltration -Pt has home nocturnal oxygen however no portable oxygen. She needs ambulatory desat test for portable oxygen -Troponins negative x 3 Hx of PE/DVT and protein C deficiency -- No acute DVT/PE - Lovenox to therapeutic dosing 1mg/kg BID - troponin and BNP - is negative -Dopplers bilateral are negative - Coumadin bridge with Lovenox -PT needs life long anticoagulation with Coumadin -She wants to continue with Coumadin -Pt would benefit from home INR machine -V/Q scan is negative S/p NACHO and incisional hernia repair with mesh placement per TERRI Ochoa DO Aug 27, 2018 13:18
== END 2018-08-27 13:10 | disposition home or self-care (01) | DRG 191 ==
LOC: EDUNIT# 14:10 → ER 14:11 → UNDOADMOB 16:10 → ICU 16:10 → UNDOADMOB 16:50 → ICU 16:50 → INTOOBSV 08-26 07:53 → OBSVTOIN 08-26 07:53 → ICU 08-26 15:29 → 4TH 08-26 15:29 → UNDODISIN 08-27 13:10
PROVIDERS: ADMIT Internal Medicine; ATTEND Internal Medicine
DX: J44.1 Chronic obstructive pulmonary disease with (acute) exacerbation (principal); D68.59 Other primary thrombophilia; I10 Essential (primary) hypertension; E78.00 Pure hypercholesterolemia, unspecified; R60.9 Edema, unspecified; I73.9 Peripheral vascular disease, unspecified; R73.03 Prediabetes; K21.9 Gastro-esophageal reflux disease without esophagitis; K44.9 Diaphragmatic hernia without obstruction or gangrene; K59.09 Other constipation; Z87.891 Personal history of nicotine dependence; Z86.711 Personal history of pulmonary embolism; Z86.718 Personal history of other venous thrombosis and embolism; Z79.01 Long term (current) use of anticoagulants; Z79.899 Other long term (current) drug therapy; Z91.041 Radiographic dye allergy status; Z95.828 Presence of other vascular implants and grafts; Z98.890 Other specified postprocedural states
CPT/HCPCS: 36415; 71045; 71250; 78582; 80053; 83880; 84484; 85025; 85379; 85610; 85730; 93306; 93970; 94640; 94760

== ENCOUNTER 2018-09-10 22:09 | Emergency (ER) | payer MEDICAID ==
[~2018-09-10] VITALS: Ht 165.1 cm; Wt 84.8 kg
[2018-09-10] MEDS ORDERED: CEPH500T PO (22:40)
--- NOTE | 2018-09-10 22:40 | ED Integumentary General ---
General Chief Complaint: Post OP Complications/Pain Stated Complaint: FEVER,INCISIONS RED AFTER SURGERY Source: patient Exam Limitations: no limitations History of Present Illness Date Seen by Provider: September 10, 2018 Time Seen by Provider: 22:39 Allergies and Home Medications Allergies Coded Allergies: aspirin (Verified Allergy, Severe, ANAPHYLAXIS, 08/07/17) ibuprofen (Verified Allergy, Severe, ANAPHYLAXIS, 08/07/17) ketorolac (Verified Allergy, Severe, ANAPHYLAXIS, 08/07/17) tetanus and diphtheria toxoids (Unverified Allergy, Severe, ANAPHYLAXIS, ) aloe (Verified Allergy, Mild, RASH, 08/07/17) latex (Verified Allergy, Mild, RASH, 08/07/17) OCCASIONALLY IS IRRITATING SKIN scopolamine (Verified Allergy, Mild, 08/07/17) iodine (Verified Adverse Reaction, Unknown, 08/07/17) Patient states she got dizzy, diaphoretic and saw stars. Uncoded Allergies: ALOE VERA (Allergy, Unknown, 12/23/05) SILK SUTURES (Adverse Reaction, Unknown, BODY REJECTS SUTURES, 10/07/13) Home Medications Albuterol Sulfate 2.5 Mg/3 Ml Vial.neb, 2.5 MG NEB TID, (Reported) MIXES WITH IPRATROPIUM SOLUTION Albuterol Sulfate 8.5 Gm Hfa.aer.ad, 2 PUFF IH Q4H PRN for SHORTNESS OF BREATH, (Reported) Albuterol Sulfate 2.5 Mg/3 Ml Vial.neb, 2.5 MG NEB Q2H PRN for SHORTNESS OF BREATH, (Reported) Alprazolam 1 Mg Tablet, 1 MG PO Q8H PRN for ANXIETY, (Reported) Calcium Carbonate/Vitamin D3 1 Each Tablet, 1 TAB PO BID, (Reported) Enoxaparin Sodium 40 Mg/0.4 Ml Syringe, 40 MG SQ BID, (Reported) FILLED 08-11-18 (PLEASE UPDATE START DATE WITH PATIENT) Furosemide 80 Mg Tablet, 40 MG PO DAILY, (Reported) TAKES 1/2 (80MG) TABLET Hydrocodone Bit/Acetaminophen 1 Ea Tablet, 1 EACH PO Q4H PRN for PAIN-MODERATE Prescribed by: TEDDY PHILIP on 08/21/18 1330 Hyoscyamine Sulfate 0.125 Mg Tab.rapdis, 0.125 MG SL Q6H PRN for ABDOMINAL PAIN, (Reported) Ipratropium [place] 0.2 Mg/1 Ml Solution, 1 VIAL NEB TID, (Reported) MIXES WITH ALBUTEROL SOLUTION Loratadine 10 Mg Tablet, 10 MG PO DAILY, (Reported) Montelukast Sodium 10 Mg Tablet, 10 MG PO HS, (Reported) Pantoprazole Sodium 40 Mg Tablet.dr, 40 MG PO DAILY, (Reported) Potassium Chloride 10 Meq Tablet.er, 20 MEQ PO BID, (Reported) TAKES 2 (10 MEQ) TABLETS Prednisone 20 Mg Tab, PO UD, (Reported) TAKE 3 (20MG) TABS DAILY X 3 DAYS TAKE 2 (20MG) TABS DAILY X 3 DAYS TAKE 1 ( 20MG) TAB DAILY X 3 DAYS FILLED 08-18- Promethazine HCl 25 Mg Tablet, 25 MG PO Q6H PRN for NAUSEA/VOMITING-2ND LINE, ( Reported) Past Wooqegk-Nfngwv-Ymnigs Hx Patient Social History Drug of Choice: + IV COCAINE USE Type Used: Cigarettes Former Smoker, Quit: Nov 17, 2000 2nd Hand Smoke Exposure: No Recent Foreign Travel: No Contact w/Someone Who Travel: No Recent Hopitalizations: No Immunizations Up To Date Tetanus Booster (TDap): Unknown PED Vaccines UTD: No Date of Pneumonia Vaccine: Jul 08, 2012 Date of Influenza Vaccine: Mar 11, 2012 Seasonal Allergies Seasonal Allergies: Yes Past Medical History Surgeries: Yes Abdominal, Adenoidectomy, Section, Gallbladder, Hysterectomy, Orthopedic, Tonsillectomy, Vascular Surgery Respiratory: Yes (O2 AT HS 2-3L/NC AND PRN--NOCTURNAL HYPOXIA; ) Asthma, Pneumonia, Chronic Bronchitis, Pulmonary Embolism, COPD Currently Using CPAP: No Currently Using BIPAP: No Cardiac: Yes Chronic Edema/Swelling, Deep Vein Thrombosis, High Cholesterol, Hypertension, Peripheral Vascular Neurological: Yes Neuropathy 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 Disorders: No 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 Disorders: Denies ADMINISTRATIVE SUPPORT ASSOC History: Hysterectomy, Menopausal Sexually Transmitted Disease: No HIV/AIDS: No 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: Yes Kidney Infection, Bladder Infection, Kidney Stones Gastrointestinal: Yes (MULTIPLE HERNIA REPAIRS; MULTIPLE EGD'S /COLONOSCOPIES/ POLYPECTOMIES) Abdominal Hernia, Gastroesophageal Reflux, Chronic Constipation, Chronic Diarrhea, Hepatitis, Polyps, Hiatal Hernia, Gall Bladder Disease, Irritable Bowel Musculoskeletal: Yes Arthritis Endocrine: Yes ("PRE-DIABETIC" ) HEENT: Yes (NASAL POLYPS) Cataract Loss of Vision: Denies Hearing Impairment: Denies Cancer: No Did You Recieve Any Treatments: No Psychosocial: Yes Anxiety Integumentary: Yes (CHRONIC VENOUS STASIS DERMATITIS AND ULCERS. ) Recent Skin Changes Blood Disorders: Yes (DVT'S/PE'S; PROBABLE PROTEIN C DEFICIENCY) Adverse Reaction/Blood Tranf: No (HAS HAD BLOOD WITH NO PROBLEMS) Family Medical History Alcoholism Alcoholism Arthritis Asthma Cancer Cancer of colon Cancer of mouth Cardiovascular disease Cataract Cataracts Chest pain Colon cancer Completed stroke Diabetes mellitus Family history: Allergy Family history: Arthritis Family history: Asthma Family history: Cardiovascular disease Family history: Coronary thrombosis Family history: Diabetes mellitus Family history: Gastrointestinal disease Family history: Hypertension Family history: Thyroid disorder Headache Hearing loss Heart disease History of - anemia History of - respiratory disease Hypercholesterolemia Hypercholesterolemia Infertile Malignant neoplasm of lung Myocardial infarction Myocardial infarction Psychotic disorder Respiratory disorder Stroke No Family History of: AIDS Abdominal aortic aneurysm Abdominal aortic aneurysm Hamlet's disease Hamlet's disease Alzheimer's disease Aphasia Aphasia Congenital disease Congenital heart disease Congenital heart disease Congestive heart failure Coronary thrombosis Cystic fibrosis Cystic fibrosis Deafness or hearing loss Dementia Dementia Drug abuse Dysphagia Dysphasia Family history: Alzheimer's disease Family history: Breast disease Family history: Glaucoma Family history: Osteoporosis Fibrocystic disease of breast Gastroenteritis Glaucoma Headache disorder Hereditary disease History of - disorder History of drug abuse Human immunodeficiency virus (HIV) seropositivity Infertility Kidney disease Kidney disease Neoplasm Not obtainable due to adoption Osteoporosis Parkinson's disease Parkinson's disease Prostate cancer Psychosocial problem Seizure disorder Seizure disorder Severe allergy Thyroid disease Tuberculosis Tuberculosis Visual disorder Visual impairment Cancer, COPD, Vascular Disease Physical Exam Vital Signs Capillary Refill : Departure Impression Primary Impression: cellulitis around surgical incision site Disposition: 01 HOME, SELF-CARE Condition: Stable/Unchanged Departure-Patient Inst. Decision time for Depature: 22:39 Referrals: LEAH WOLF MD (PCP/Family) Primary Care Physician Patient Instructions: Cellulitis (Skin Infection), Adult (DC) Add. Discharge Instructions: Take medications as directed. You may use topical Benadryl cream to prevent itching. Follow-up with your primary care provider as needed. Follow-up with Dr. PHILIP within 1 week for recheck. Return back to the emergency room for worsening symptoms or concerns as needed. Scripts Cephalexin (Cephalexin) 500 Mg Tablet 500 MG PO TID for 7 Days, #21 TAB 0 Refills Prov: JASON GERARDO 09/10/18 JASON GERARDO September 10, 2018 22:40
[2018-09-10] MEDS ORDERED: CEPHALEXIN 250 MG (KEFLEX) CAP PO ONE (22:45)
[2018-09-10 22:56] VITALS: BP 116/72
== END 2018-09-10 22:56 | disposition home or self-care (01) ==
LOC: EDUNIT# 22:09 → ER 22:10
DX: T81.40XA Infection following a procedure, unspecified, initial encounter (principal); L03.90 Cellulitis, unspecified; J44.9 Chronic obstructive pulmonary disease, unspecified; E78.00 Pure hypercholesterolemia, unspecified; I10 Essential (primary) hypertension; G62.9 Polyneuropathy, unspecified; K21.9 Gastro-esophageal reflux disease without esophagitis; K58.9 Irritable bowel syndrome, unspecified; F41.9 Anxiety disorder, unspecified; Z86.010 Personal history of colon polyps; Z87.19 Personal history of other diseases of the digestive system; Z80.0 Family history of malignant neoplasm of digestive organs; Z82.49 Family history of ischemic heart disease and other diseases of the circulatory system; Z80.1 Family history of malignant neoplasm of trachea, bronchus and lung; Z87.442 Personal history of urinary calculi; Z87.440 Personal history of urinary (tract) infections; Z86.711 Personal history of pulmonary embolism; Z86.718 Personal history of other venous thrombosis and embolism; Z88.6 Allergy status to analgesic agent; Z88.4 Allergy status to anesthetic agent; Z88.8 Allergy status to other drugs, medicaments and biological substances; Z91.041 Radiographic dye allergy status; Z91.040 Latex allergy status; Z88.7 Allergy status to serum and vaccine; Z79.52 Long term (current) use of systemic steroids; Z87.891 Personal history of nicotine dependence; Z90.89 Acquired absence of other organs; Z98.890 Other specified postprocedural states; Z90.710 Acquired absence of both cervix and uterus; Z87.01 Personal history of pneumonia (recurrent)
CPT/HCPCS: 99283

== ENCOUNTER 2018-11-22 16:12 | Emergency (ER) | payer MEDICAID ==
[~2018-11-22] VITALS: Ht 165.1 cm; Wt 82.6 kg
[~2018-11-22 16:12] MED LIST changes: +CEPH500T PO
--- OUTSIDE RECORDS SUMMARY | 2018-11-22 16:19 | XMS REPORT | Encounter Summary ---
Author Author [facility] Organization [facility] Address Unknown Phone Unavailable Care Team Providers Care Plaster Whittler Name Role Phone Jay Rogers MD PCP Joshua Ku MD Unavailable Reason for Visit * Reason Comments Varicose Vein Encounter Details Care Team Description Date Type Department Varicose veins of lower extremities with complications, bilateral 07/11/2018 Clinical [facility] [address] [place] [address] Social History Date Tobacco Use Types Packs/Day Years Used Former Smoker Smokeless Tobacco: Never Used Drinks/Week oz/Week Comments Alcohol Use Yes Alcohol Habits Answer Date Recorded How [...]
--- OUTSIDE RECORDS SUMMARY | 2018-11-22 16:19 | XMS REPORT | Encounter Summary ---
Author Author [facility] Organization [facility] Address Unknown Phone Unavailable Care Team Providers Care Property Management Specialist Name Role Phone Jay Rogers MD PCP Joshua Ku MD Unavailable Reason for Visit * Reason Comments Other HIT follow up Encounter Details Care Team Description Date Type Department Leg swelling; Varicose veins of left lower extremity with other complications 09/23/2018 Clinical [facility] [address] [place] [address] Social History Date Tobacco Use Types Packs/Day Years Used Former Smoker Smokeless Tobacco: Former User Drinks/Week oz/Week Comments Alcohol Use Yes Alcohol [...] Priority Date/Time Associated Diagnosis US DOPPLER VENOUS LEFT Routine 10/02/2018 Varicose veins of left lower extremity with other complications documented in this encounter Results * US DOPPLER VENOUS LEFT (10/02/2018) Narrative Performed At Performing Organization Address City/State/Zipcode Phone Number [facility] documented in this encounter Visit Diagnoses Diagnosis Leg swelling Swelling of limb Varicose veins of left lower extremity with other complications documented in this encounter
--- OUTSIDE RECORDS SUMMARY | 2018-11-22 16:19 | XMS REPORT | Clinical Summary ---
Author Author [facility] Organization [facility] Address Unknown Phone Unavailable Care Team Providers Care Leadership Program Associate Name Role Phone Jay Rogers MD PCP Joshua Ku MD Unavailable Source Comments Some departments are not documenting in the electronic medical record. If you d o not see the information that you expected, contact Release of Information in [facility] [employer] Information Management department at [phone] for further assistan ce in locating additional records.[facility] Allergies Comments Active Allergy Reactions Severity Noted Date Aloe Vera REDNESS Low 04/29/2018 Aspirin ANAPHYLAXIS High 04/29/2018 [place] 7 BLISTERS High 09/23/2018 Ibuprofen ANAPHYLAXIS High 04/29/2018 Iodinated Contrast- Oral [...] by mouth 8 every 48 hours. Active loratadine (CLARITIN) 10 Take 10 mg [...] or Vomiting. Active Problems Problem Noted Date Postoperative visit 09/23/2018 Varicose veins of left lower extremity with other complications 05/01/2018 Leg swelling 05/01/2018 Protein C deficiency 05/01/2018 Encounters Care Team Description Date Type Specialty Joshua Ku MD Varicose veins of left lower extremity with other complications (Primary Dx); Protein C deficiency (HCC); Postoperative visit 09/23/2018 Office Visit Vascular Surgery Leg swelling; Varicose veins of left lower extremity with other complications 09/23/2018 Clinical Vascular Surgery Support Shanthi Topete APRN Varicose veins of left lower extremity with other complications (Primary Dx) 09/15/2018 Orders Only Vascular Surgery from Last 3 Months Family [...] travel history available. Last Filed Vital Signs Reading Time Taken Comments Vital Sign 100/80 09/23/2018 12:57 PM CDT Blood Pressure - - Pulse - - Temperature - - Respiratory Rate - - Oxygen Saturation - - Inhaled Oxygen Concentration 85.3 kg (188 lb) 09/23/2018 12:57 PM CDT Weight 165.1 cm (5' 5") 09/23/2018 12:57 PM CDT Height 31.28 09/23/2018 12:57 PM CDT Body Mass Index Plan of Treatment Health Maintenance Due Date Last Done Comments HEPATITIS C SCREENING 1960 PHYSICAL (COMPREHENSIVE) 1965 EXAM HIV SCREENING 1973 DTAP/TDAP VACCINES (1 - 1976 Tdap) CERVICAL CANCER SCREENING 1988 BREAST CANCER SCREENING 1998 COLORECTAL CANCER 2008 SCREENING SHINGLES RECOMBINANT 2008 VACCINE (1 of 2) INFLUENZA VACCINE 02/10/2019 Procedures Comments Procedure Name Priority Date/Time Associated Diagnosis US DOPPLER VENOUS LEFT Routine 10/02/2018 Varicose veins of left lower extremity with other complications from Last 3 Months Results * US DOPPLER VENOUS LEFT (10/02/2018) Narrative Performed At Performing Organization Address City/State/Zipcode Phone Number [facility] from Last 3 Months Insurance Type Payer Benefit Subscriber ID Effective Phone Address Plan / Dates Group AETNA MEDICAID AETNA xxxxxxxxxxx [id number] [facility] [address] (Home) [place] [address] Advance Directives Patient Aoc Plans Intelligence Officer Chief Explanation Type Date Recorded Advance Directive/DPOA
--- OUTSIDE RECORDS SUMMARY | 2018-11-22 16:19 | XMS REPORT | Encounter Summary ---
Author Author [facility] Organization [facility] Address Unknown Phone Unavailable Care Team Providers Care Take Out Waiter/Waitress Name Role Phone Jay Rogers MD PCP Joshua Ku MD Unavailable Reason for Visit * Reason Comments Other Bilat GSV Bilat MP Encounter Details Care Team Description Date Type Department Joshua Ku MD [address] [facility] [place] [address] Varicose veins of left lower extremity with other complications (Primary Dx); Protein C deficiency (HCC); Postoperative visit 09/23/2018 Office Visit [facility] [address] [place] [address] Social History Date Tobacco Use [...] history available. documented as of this encounter Last Filed Vital Signs Reading Time Taken Comments Vital Sign 100/80 09/23/2018 12:57 PM CDT Blood Pressure - - Pulse - - Temperature - - Respiratory Rate - - Oxygen Saturation - - Inhaled Oxygen Concentration 85.3 kg (188 lb) 09/23/2018 12:57 PM CDT Weight 165.1 cm (5' 5") 09/23/2018 12:57 PM CDT Height 31.28 09/23/2018 12:57 PM CDT Body Mass Index documented in this encounter Progress Notes * Joshua Ku MD - 09/23/2018 1:00 PM CDT Date of Service: 09/23/2018 Chief Complaint Patient presents with Other Bilat GSV Bilat MP History of Present Illness 58-year-old female status post bilateral great saphenous endovenous ablation wit h microphlebectomy's in June 2018. Follow-up ultrasound demonstrated a clas s II endothermal thrombus. She was scanned today and the scan shows no evidence for heat induced thrombus. She is doing very well post procedure. Medical History: Diagnosis Date Asthma Chronic obstructive pulmonary disease (COPD) (HCC) Deep vein thrombosis (HCC) 2009 Pulmonary embolism (HCC) 2009 Varicose veins of lower extremity Surgical History: Procedure Laterality Date SHOULDER SURGERY 2007 scope KNEE ARTHROSCOPY 2008 VENA CAVA FILTER PLACEMENT 2009 trap ease filter HX ENDOVENOUS ABLATION OF THE GREAT SAPHENOUS VEIN Right 07/04/2018 right great saphenous endovenous ablation-Dr. Ku HX ENDOVENOUS ABLATION OF THE GREAT SAPHENOUS VEIN Left 07/04/2018 left great saphenous endovenous ablation-Dr. Ku HX MICROPHLEBECTOMY Right 07/04/2018 right leg microphlebectomy-Dr. Ku HX MICROPHLEBECTOMY Left 07/04/2018 left leg microphlebectomy-Dr. Ku HERNIA REPAIR 08/21/2018 HX HYSTERECTOMY Allergies: Allergies Allergen Reactions Asa [Aspirin] ANAPHYLAXIS [place] 7 BLISTERS Ibuprofen ANAPHYLAXIS Ketorolac ANAPHYLAXIS Tetanus And Diphtheria Toxoids, Adsorbed, Adult ANAPHYLAXIS Aloe Vera REDNESS Iodinated Contrast- Oral And Iv Dye UNKNOWN Latex REDNESS Medication List: ALPRAZolam (XANAX) 1 mg tablet CALCIUM PO Take by mouth. furosemide (LASIX) 40 mg tablet HYDROcodone/acetaminophen(+) (NORCO) 10/325 mg tablet Take 1 tablet by mouth every 6 hours as needed for Pain hyoscyamine sulfate (LEVSIN) 0.125 mg tablet Take 125 mcg by mouth every 4 h ours as needed for Cramps. ipratropium bromide (ATROVENT) [...] Take 20 mEq by mouth every 48 ho urs. PROAIR HFA 90 mcg/actuation inhaler promethazine (PHENERGAN) 25 mg tablet Take 25 mg by mouth every 6 hours as n eeded for Nausea or Vomiting. warfarin (COUMADIN) 5 mg tablet Take 5 mg by mouth daily. Social History: reports that she has quit smoking. She has quit using smokeless tobacco. She re ports that she drinks alcohol. She reports that she has current or past drug his tory. Family History Problem Relation Age of Onset Diabetes Mother Stroke Mother Hypertension Father Stroke Maternal Grandmother Stroke Maternal Grandfather Heart Disease Maternal Grandfather Cancer Paternal Grandmother Stroke Paternal Grandfather Review of Systems Constitutional: Negative for activity change, appetite change, chills, diaphores is, fatigue, fever and unexpected weight change. HENT: Negative for hearing loss, nosebleeds and tinnitus. Eyes: Negative for photophobia, itching and visual disturbance. Respiratory: Negative for apnea, cough, chest tightness and shortness of breath. Cardiovascular: Negative for chest pain, palpitations and leg swelling. Gastrointestinal: Negative for abdominal pain, blood in stool, constipation, miri rrhea, nausea and vomiting. Endocrine: Negative for cold intolerance and heat intolerance. 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: Negative for dysuria, frequency, hematuria and urgency. Musculoskeletal: Negative for arthralgias, back pain, gait problem, joint swelli ng, myalgias, neck pain and neck stiffness. Skin: Negative for color change, rash and wound. Allergic/Immunologic: Negative for environmental allergies, food allergies and i mmunocompromised state. Neurological: Negative for dizziness, tremors, seizures, syncope, facial asymmet ry, speech difficulty, weakness, light-headedness, numbness and headaches. Hematological: Negative for adenopathy. Does not bruise/bleed easily. Psychiatric/Behavioral: Negative for behavioral problems, confusion and dysphori c mood. The patient is not nervous/anxious. Vitals: 09/23/18 1257 BP: 100/80 Weight: 85.3 kg (188 lb) Height: 165.1 cm (65") Body mass index is 31.28 kg/m. Physical Exam Examination of the lower extremities: No residual significant varicose tributari es. All phlebectomy sites have healed nicely. Assessment and Plan: Impression: #1 status post bilateral great saphenous endovenous ablation with mi crophlebectomy 2. Endo luminal heat induced thrombus which is now resolved 3. VCSS 3, 3 4. CEA P2, 2 Plan: #1 continue Eliquis for protein C deficiency history. 2. Continue compression therapy as needed 3. Follow-up as needed Problem List Items Addressed This Visit Surgery Related Problems Varicose veins of left lower extremity with other complications - Primary Postoperative visit Other Protein C deficiency (HCC) documented in this encounter Plan of Treatment Not on filedocumented as of this encounter Visit Diagnoses Diagnosis Varicose veins of left lower extremity with other complications - Primary Protein C deficiency (HCC) Primary hypercoagulable state Postoperative visit documented in this encounter
--- OUTSIDE RECORDS SUMMARY | 2018-11-22 16:19 | XMS REPORT | Encounter Summary ---
Author Author [facility] Organization [facility] Address Unknown Phone Unavailable Care Team Providers Care Bakery Assistant Name Role Phone Jay Rogers MD PCP Joshua Ku MD Unavailable Encounter Details Care Team Description Date Type Department Shanthi Topete, DIESEL MAINTENANCE ELECTRICIAN [address] [facility] [place] [address] Varicose veins of left lower extremity with other complications (Primary Dx) 09/15/2018 Orders Only [facility] [address] [place] [address] Social History Date Tobacco Use [...] Not on filedocumented as of this encounter Results * US DOPPLER VENOUS LEFT (10/02/2018) Narrative Performed At Performing Organization Address City/State/Zipcode Phone Number [facility] documented in this encounter Visit Diagnoses Diagnosis Varicose veins of left lower extremity with other complications - Primary documented in this encounter
--- OUTSIDE RECORDS SUMMARY | 2018-11-22 16:19 | XMS REPORT | Encounter Summary ---
Author Author [facility] Organization [facility] Address Unknown Phone Unavailable Care Team Providers Care Nail Welter Name Role Phone Jay Rogers MD PCP Joshua Ku MD Unavailable Encounter Details Care Team Description Date Type Department Shanthi Topete, SHOP AND ALTERATION TAILOR [address] [facility] [place] [address] Leg swelling (Primary Dx); Varicose veins of left lower extremity with other complications 07/09/2018 Orders Only [facility] [address] [place] [address] Social History Date Tobacco Use [...] At Performing Organization Address City/State/Zipcode Phone Number [facility] documented in this encounter Visit Diagnoses Diagnosis Leg swelling - Primary Swelling of limb Varicose veins of left lower extremity with other complications documented in this encounter
--- OUTSIDE RECORDS SUMMARY | 2018-11-22 16:19 | XMS REPORT | Encounter Summary ---
Author Author [facility] Organization [facility] Address Unknown Phone Unavailable Care Team Providers Care Dross Puller Name Role Phone Jay Rogers MD PCP Joshua Ku MD Unavailable Reason for Visit * Reason Comments Surgical Followup Encounter Details Care Team Description Date Type Department Joshua Ku MD [address] [facility] [place] [address] Surgical Followup 07/11/2018 Telephone [facility] [address] [place] [address] Social History Date Tobacco Use [...] Annie Brooks RN - 07/14/2018 8:42 AM TOOL DRAWING CHECKER Pt presented for a post operative ultrasound and was found to have a class II HI T. Pt is currently on coumadin. She was initially scheduled for an additional 1 week f/u post scan to reevaluate HIT. Pt called today stating she comes from a distance and is not able to drive back and forth anymore. Considering that th e patient is already on anticoagulation, is therapeutic, and asymptomatic, I adv ised the patient that as long as those factors remain unchanged, we could probab ly prolong any additional scanning to the date she is scheduled for her surgical follow up in August. Patient is agreeable to this and is aware of when to seek medical attention if she becomes symptomatic to DVT or PE. DRAWING CHECKER documented in this encounter Plan of Treatment Not on filedocumented as of this encounter Visit Diagnoses Not on filedocumented in this encounter
--- OUTSIDE RECORDS SUMMARY | 2018-11-22 16:20 | XMS REPORT | Encounter Summary ---
Author Author [facility] Organization [facility] Address Unknown Phone Unavailable Care Team Providers Care Vending Machine Filler Name Role Phone Jay Rogers MD PCP Joshua Ku MD Unavailable Reason for Visit * Reason Comments General Question Encounter Details Care Team Description Date Type Department Joshua Ku MD [address] [facility] [place] [address] General Question 07/02/2018 Telephone [facility] [address] [place] [address] Social History Date Tobacco Use [...] - Ifeanyi Silveira - 07/02/2018 3:42 PM GAS STATION OPERATOR Answered all of patient's questions to satisfaction. She is ok to move to 2pm fo r procedures on 07/03 STATION OPERATOR * Telephone Encounter - Joseline Calabrese - 07/02/2018 1:56 PM GAS STATION OPERATOR Who is calling? Karie Shaw What is the patients need/concern? PATIENT CALLED AND STATED THAT SHE HAS QUESTI ONS ABOUT INSTRUCTIONS THAT SHE WILL HAVE TO FOLLOW FOR HER UPCOMING VEIN PROCED URE THAT IS SCHEDULE FOR TOMORROW (07/02/2018) PATIENT IS WANTING TO KNOW ABOU T COMPRESSION STOCKINGS, WHEN SHOULD SHE PUT HER CREAM ON HER LEG. PATIENT STAT ES THAT SHE DOES NOT HAVE HER COMPRESSION STOCKINGS AND WOULD LIKE TO KNOW WHY ER INSURANCE WILL NOT PAY FOR THEM. Which hospital was the patient seen at? [facility] Are there any other needs/concerns the patient has? no If yes, description of concern: Expected response time frame given to patient: I TOLD PATIENT THAT SHE WILL RECE [place] A CALL BACK AND THAT TYPICALLY IT IS WITHIN 24 TO 48 HOURS. PATIENT STATES THAT SHE STAYS 2 HOURS AWAY. PLEASE REACH OUT TO PATIENT BEFORE HER APPT TOMORR OW (07/03/2018) Read back to patient before sending: yes Call Back phone number: [phone] STATION OPERATOR * Telephone Encounter - Roselyn Dudley - 07/02/2018 11:33 AM GAS STATION OPERATOR Pt is returning call to Annie Salas, Please call pt at [phone] STATION OPERATOR * Telephone Encounter - Annie Brooks, RN - 07/02/2018 11:25 AM GAS STATION OPERATOR LM for pt to return call STATION OPERATOR * Telephone Encounter - Andie Carrillo - 07/02/2018 8:14 AM GAS STATION OPERATOR Pt called wanting to know which leg was going to undergo surgery first. I told h er the notes say the right leg is first and following day is the left leg. She t hen had questions about her medicine and said she has stronger pain killers than what was prescribed. She wanted to know if she could take stronger medicine. She would like a call back at [phone] STATION OPERATOR documented in this encounter Plan of Treatment Not on filedocumented as of this encounter Visit Diagnoses Not on filedocumented in this encounter
--- OUTSIDE RECORDS SUMMARY | 2018-11-22 16:20 | XMS REPORT | Encounter Summary ---
Author Author [facility] Organization [facility] Address Unknown Phone Unavailable Care Team Providers Care Assisted Living Care Manager Name Role Phone Jay Rogers MD PCP Joshua Ku MD Unavailable Reason for Visit * Reason Comments Surgery Encounter Details Care Team Description Date Type Department Joshua Ku MD [address] [facility] [place] [address] 06/11/2018 Refill [facility] [address] [place] [address] Social History Date Tobacco Use [...]
--- OUTSIDE RECORDS SUMMARY | 2018-11-22 16:20 | XMS REPORT | Encounter Summary ---
Author Author [facility] Organization [facility] Address Unknown Phone Unavailable Care Team Providers Care Slot Floor Person Name Role Phone Jay Rogers MD PCP Joshua Ku MD Unavailable Reason for Visit * Reason Comments Procedure right great saphenous endovenous ablation with right leg microphlebectomy * Outpatient Surgery (Routine) Referred By Contact Referred To Contact Status Reason Specialty Diagnoses / Procedures Joshua Ku MD [address] [facility] [place] [address] Joshua Ku MD [address] [facility] [place] [address] Closed Vascular Surgery Diagnoses Varicose veins of right lower extremity with other complications Varicose veins of left lower extremity with other complications Other specified soft tissue disorders Other primary thrombophilia ([facility]) i83.891 i83.892 m79.89 d68.59 P rocedures [place] ENDOVEN ABLTJ INCMPTNT VEIN XTR RF 1ST VEIN [place] STAB PHLEBT VARICOSE VEINS 1 XTR 10-20 STAB INCS [place] STAB PHLEBT VARICOSE VEINS 1 XTR > 20 INCS 1. dre right gsv, mp >20 2. dre left gsv, mp >20 Encounter Details Care Team Description Date Type Department Joshua Ku MD [address] [facility] [place] [address] [phone] Varicose veins of right lower extremity with pain (Primary Dx) 07/03/2018 Procedure visit [facility] [address] [place] [id number] Social History Date Tobacco Use Types Packs/Day [...] Ines Sandoval Sherine - 07/03/2018 2:00 PM MEDICAL ASSISTING PROGRAM DIRECTOR [facility] [place] [facility] [address] [place] [address] Instructions following Vein Procedure 1. If you have bleeding at home after your procedure that seeps through the lisa bandage, you may apply pressure to the area, elevate the leg, also apply ice as needed. Please also feel free to contact our office in this case 2. You may remove the compression wrap/stocking and bandages in 24 hours and sta rt using your compression stocking. Do not be [...] for 7 days, then daily for 3 wee ks. After the initial weeks, it is beneficial to wear a knee high compression s tocking for prevention of future vein disease. 6. [...] to take an anti-inflammatory such as Naprosyn (Al young) twice daily, or Ibuprofen (Motrin, Advil) 400-600 mg three time daily, for at least the first 3 days following your procedure. If you continue to have fabio n use the prescribed narcotic pain medication. 10. Your follow up appointment has been scheduled with your doctor. Please call to reschedule if your given time does not work Please call if you have any questions. Annie Brooks RN, BSN was your nurse today Joshua Ku MD was your doctor today. CAL ASSISTING PROGRAM DIRECTOR documented in this encounter Progress Notes * Joshua Ku MD - 07/03/2018 2:00 PM MEDICAL ASSISTING PROGRAM DIRECTOR OPERATIVE REPORT/RADIOFREQUENCY ABLATION w/MP Date: 07/03/2018 Patient: Karie Shaw : 1960 Diagnosis: Venous valvular insufficiency involving the right great saphenous vei n producing symptomatic varicose bulging veins and refractory edema with lipoder matosclerosis. Operation(s): 1. Endovenous radiofrequency ablation of the right great saphenou s vein requiring single site microaccess. 2. Microphlebectomy right leg greater than 21 , Total of 21 varicose veins in the medial, anterior thigh, medi al, lateral, posterior knee and medial, lateral calf. Surgeon: Joshua Ku MD M.D., F.A.C.S., R.P.V.I. Link Fabric Machine Operator(s): Annie Brooks R.N.-B.S.NCamryn and Maria Ines Sandoval, Patient Automobile Rental Representative/ORA Medications: Xanax 1mg Emla cream - 30 grams Procedure start time: 1445 Procedure: Varicose clusters were then marked with the patient standing. The pat ient was placed in the supine position on the operating table, the leg prepped w ith Chloroprep and sterile drapes applied. A time out was performed verifying correct patient, correct procedure and correc t site. The patient was placed in reverse-Trendelenburg position and local anesthesia wa s instilled in the skin overlying the access site. The great saphenous vein at the level of the proximal calf was punctured through the skin and using ultrasou nd guidance a guide wire was introduced through the needle which was then exchan ged over the guide wire for a 7F sheath. The guide wire was removed. The RF pr obe was placed into the vein through the sheath and positioned 3cm distal to th e saphenofemoral junction measured with ultrasound caliper. After the RF probe position was verified by ultrasound, tumescent anesthesia (50 mL 1% lidocaine with epinephrine, 5 mL 8.4% sodium bicarbonate in 500 mL of 0.9% normal saline) was infiltrated, under ultrasound guidance, precisely into the perivenous compartment along the entire length of vein from the entry site to t he saphenofemoral junction until a "halo" of fluid was noted around the vein. The patient was then placed in Trendelenburg position and the superficial venous system was exsanguinated. After RF probe position was again confirmed with ultr asound imaging, RF energy was applied twice to each segment treatment.. The pro be was withdrawn at a rate of approximately 6.5 cm at 20 second intervals and mo nitored to keep the vein wall temperature within [...] An 18-gauge needle was used to gain e ntry through the skin with a #1 Oesch vein hook. The vein(s) were grasped with mosquito clamps and teased out. Hemostasis was obtained by direct pressure appl ication. greater than 21 micro-incisions were required 21. Steri-strips were p laced and 5-0 nylon suture used to close skin incisions A compression dressing w as applied with dry 4 x 4 gauze dressing and an elastic compression wrap. Extra padding was applied along the lateral knee to prevent peroneal nerve compression injury. The patient tolerated the procedure well and was fully ambulatory after the procedure and left the facility in good condition. Post procedure instruc tions were given. Procedure end time: 1520 Joshua Ku MD Date: 07/03/2018 Problem List Items Addressed This Visit None Visit Diagnoses Varicose veins of right lower extremity with pain - Primary CAL ASSISTING PROGRAM DIRECTOR documented in this encounter Plan of Treatment Not on filedocumented as of this encounter Visit Diagnoses Diagnosis Varicose veins of right lower extremity with pain - Primary Varicose veins of lower extremities with other complications documented in this encounter
--- OUTSIDE RECORDS SUMMARY | 2018-11-22 16:20 | XMS REPORT | Encounter Summary ---
Author Author [facility] Organization [facility] Address Unknown Phone Unavailable Care Team Providers Care Tightening Machine Operator Name Role Phone Jay Rogers MD PCP Joshua Ku MD Unavailable Encounter Details Care Team Description Date Type Department Aide Oswald MD [address] [facility] [place] [address] 05/26/2018 Telephone [facility] [address] [place] [address] Social History Date Tobacco Use [...] - Stella Anderson - 05/29/2018 8:32 AM BANKING OFFICER They just don't, that's their policy. ING OFFICER * Telephone Encounter - Andie Carrillo - 05/29/2018 8:09 AM BANKING OFFICER I am waiting for a fax or letter to specify. I am not sure about the MP's. Would you suggest I call about it? Why does Medicaid not approve ablations? ING OFFICER * Telephone Encounter - Stella Anderson - 05/28/2018 11:34 AM BANKING OFFICER This is pretty typical with Medicaid. Did our 21463/67132 codes get approved? ING OFFICER * Telephone Encounter - Clarisa Hutchinson - 05/26/2018 3:36 PM BANKING OFFICER [employer] INFORMING CPT 37632 IS NOT AUTHORIZED UNDER [place] MEDICAID - CALL REP MARTHA Casanova [phone] FOR MORE INFORMATION BEFORE THE MED DIRECTOR HAS TO REVIEW ING OFFICER documented in this encounter Plan of Treatment Not on filedocumented as of this encounter Visit Diagnoses Not on filedocumented in this encounter
--- OUTSIDE RECORDS SUMMARY | 2018-11-22 16:20 | XMS REPORT | Encounter Summary ---
Author Author [facility] Organization [facility] Address Unknown Phone Unavailable Care Team Providers Care Corn Press Operator Name Role Phone Jay Rogers MD PCP Joshua Ku MD Unavailable Reason for Visit * Reason Comments General Question General Question Encounter Details Care Team Description Date Type Department Joshua Ku MD [address] [facility] [place] [address] General Question; General Question 07/07/2018 Telephone [facility] [address] [place] [address] Social History Date Tobacco Use [...] Annie Brooks RN - 07/08/2018 10:20 AM BREWERY CELLAR WORKER Spoke with pt, we spoke at length yesterday regarding her concerns, I called her from home as I was not in the office. The patient is hospitalized for unrelated issues, sinus infection, trouble breathing, low O2 sats. I did advise pt that sutures can wait to come out a bit longer. Her post scan has been rescheduled to Marcel 3/1 ERY CELLAR WORKER * Telephone Encounter - Joseline Calabrese - 07/08/2018 8:04 AM BREWERY CELLAR WORKER Who is calling? Karie Shaw What is the patients need/concern? PATIENT CALLED AND STATED THAT SHE HAS BEEN A DMITTED INTO THE HOSPITAL AT [facility] IN [place], [place]. PATIENT ST ATES THAT SHE HAS AN APPT WITH TODAY(07/08/2018) AT 11:10 AM FOR A ULTRASOUND. PATIENT STATES THAT SHE IS TO HAVE HER SUTURE REMOVAL DONE TODAY. PATIENT IS WA NTING TO KNOW WHAT SHE SHOULD DO ABOUT THE SUTURES. Which hospital was the patient seen at? [facility] Are there any other needs/concerns the patient has? YES If yes, description of concern: PATIENT WANTS TO KNOW IF SHE IS UNABLE TO COME T MAR TO HAVE HER SUTURES REMOVED IS IT OKAY TO HAVE THEM IN A LITTLE LONGER. Expected response time frame given to patient: I TOLD PATIENT THAT SHE WILL RECE [place] A CALL BACK IF NOT TODAY THEN BY TOMORROW AT THE LATEST. Read back to patient before sending: yes Call Back phone number: [phone] ERY CELLAR WORKER * Telephone Encounter - Roselyn Dudley - 07/07/2018 9:05 AM BREWERY CELLAR WORKER Who is calling? Karie Shaw What is the patients need/concern? Pt was [...] our vein nurses were out today and sh e may not receive a call back. Pt is scheduled for an US on 07/08/18. Which hospital was the patient seen at? [facility] Are there any other needs/concerns the patient has? no If yes, description of concern: Expected response time frame given to patient: 24 hours Read back to patient before sending: yes Call Back phone number: [phone] ERY CELLAR WORKER documented in this encounter Plan of Treatment Not on filedocumented as of this encounter Visit Diagnoses Not on filedocumented in this encounter
--- OUTSIDE RECORDS SUMMARY | 2018-11-22 16:20 | XMS REPORT | Encounter Summary ---
Author Author [facility] Organization [facility] Address Unknown Phone Unavailable Care Team Providers Care Weather Teacher Name Role Phone Jay Rogers MD PCP Joshua Ku MD Unavailable Reason for Visit * Reason Comments Procedure left great saphenous endovenous ablation with left leg microphlebectomy Encounter Details Care Team Description Date Type Department Joshua Ku MD [address] [facility] [place] [address] Varicose veins of left lower extremity with other complications 07/04/2018 Procedure visit [facility] [address] [place] [address] Social History Date Tobacco Use [...] Maria Ines Sandoval - 07/04/2018 11:00 AM METAL STUD FRAMER [facility] [address] [place], [place] [address] Instructions following Vein Procedure 1. [...] Joshua Ku MD was your doctor today. L STUD FRAMER documented in this encounter Progress Notes * Joshua Ku MD - 07/04/2018 11:00 AM METAL STUD FRAMER OPERATIVE REPORT/RADIOFREQUENCY ABLATION w/MP Date: 07/04/2018 Patient: Karie Shaw : 1960 Diagnosis: Venous valvular insufficiency involving the left great saphenous vein producing symptomatic varicose bulging veins and refractory edema with lipoderm atosclerosis. Operation(s): 1. Endovenous radiofrequency ablation of the left great saphenous vein requiring single site microaccess. 2. Microphlebectomy left leg greater than 21 , Total of 21 varicose veins in the medial, anterior thigh and m edial calf. Surgeon: Joshua Ku MD M.D., F.Kali.Sherine.S., R.P.V.I. Interpreter Deaf(s): Linsey Keith and Maria Ines Sandoval Patient Tax Form Preparer/ORA Medications: Xanax 1mg Emla cream - 30 [...] punctured through the skin and using ultrasound g uidance a guide wire was introduced through the needle which was then exchanged over the guide wire for a 7F sheath. The guide wire was removed. The RF probe was placed into the vein through the sheath and positioned 3cm distal to the sa phenofemoral junction measured with ultrasound caliper. After the [...] instruc tions were given. Procedure end time: 1230 Joshua Ku MD Date: 07/04/2018 Problem List Items Addressed This Visit None L STUD FRAMER documented in this encounter Plan of Treatment Not on filedocumented as of this encounter Visit Diagnoses Diagnosis Varicose veins of left lower extremity with other complications documented in this encounter
--- OUTSIDE RECORDS SUMMARY | 2018-11-22 16:20 | XMS REPORT | Encounter Summary ---
Author Author [facility] Organization [facility] Address Unknown Phone Unavailable Care Team Providers Care Childcare Center Director Name Role Phone Jay Rogers MD PCP Joshua Ku MD Unavailable Reason for Visit * Reason Comments Prior Authorization Prior Authorization Encounter Details Care Team Description Date Type Department Joshua Ku MD [address] [facility] [place] [address] Prior Authorization; Prior Authorization 06/03/2018 Telephone [facility] [address] [place] [address] Social History Date Tobacco Use [...] - Stella Anderson - 06/10/2018 3:25 PM CUSTOMER EXPERIENCE STRATEGIST Patient is going to be approved for ablation. PUBLIC HEALTH REPRESENTATIVE OVERTURNED THE DE CISION OF MEDICAL POLICY. Referral in chart. OMER EXPERIENCE STRATEGIST * Telephone Encounter - Stella Andesron - 06/10/2018 2:21 PM CUSTOMER EXPERIENCE STRATEGIST Spoke with patient, she is faxing me a letter. I have also left a message for in surance rep Kesha. I need to speak with her. OMER EXPERIENCE STRATEGIST * Telephone Encounter - Roselyn Dudley - 06/10/2018 9:18 AM CUSTOMER EXPERIENCE STRATEGIST Who is calling? Karie Shaw What is the patients need/concern? Pt called looking to speak with Stella in reg ards to the letter she received for her vein procedure. Pt would like a call [facility] when convenient. Which hospital was the patient seen at? n/a Are there any other needs/concerns the patient has? no If yes, description of concern: Expected response time frame given to patient: 24 hours Read back to patient before sending: yes Call Back phone number: [phone] OMER EXPERIENCE STRATEGIST * Telephone Encounter - Joseline Calabrese - 06/09/2018 4:00 PM CUSTOMER EXPERIENCE STRATEGIST Who is calling? Karie Shaw What is the patients need/concern? PATIENT CALLED AND STATED THAT SHE RECEIVED H ER LETTER FROM HER INSURANCE COMPANY THAT SHE [...] before sending: yes Call Back phone number: [phone] OMER EXPERIENCE STRATEGIST * Telephone Encounter - Stella Anderson - 06/09/2018 12:46 PM CUSTOMER EXPERIENCE STRATEGIST Spoke with patient, she called and stated her talked with an insurance rep who t old her that they needed more information and that's why they denied. I explaine d to patient that that was not the case and this is not a covered benefit by [employer]. I did give her the ablation CPT Code so she could call and double check a s well. Patient can have MPs. But ablations will be OOP. OMER EXPERIENCE STRATEGIST * Telephone Encounter - Doris Bowie RN - 06/04/2018 8:[address]OMER EXPERIENCE STRATEGIST Dr. Bass, Patient insurance doesn't cover ablations. I don't feel that just MP would benef it her. Patient reports that her insurance does cover traditional "stripping" Due to her skin changes and healed ulcers I don't feel that MPs would be benefic ial. I feel that she may benefit from venaseal to treat her distal disease and p erforators. Patient may be interested in care credit to cover her procedures. OMER EXPERIENCE STRATEGIST * Telephone Encounter - Stella Anderson - 06/03/2018 3:30 PM CUSTOMER EXPERIENCE STRATEGIST Patient was approved for MPs with Medicaid. Ablations are not a covered benefits . Pt will have to pay OOP for those. I have quoted her for ablations. She would like to speak with a nurse regarding how to proceed with procedures. Desmond diaz call back at [phone] OMER EXPERIENCE STRATEGIST documented in this encounter Plan of Treatment Not on filedocumented as of this encounter Visit Diagnoses Not on filedocumented in this encounter
--- OUTSIDE RECORDS SUMMARY | 2018-11-22 16:20 | XMS REPORT | Encounter Summary ---
Author Author [facility] Organization [facility] Address Unknown Phone Unavailable Care Team Providers Care Sql Developer Name Role Phone Jay Rogers MD PCP [...] Date Type Department Joshua Ku MD [address] [facility] [place] [address] General Question (Pt wanted to know could she be re submitted to Insurance for vein procedure. Was advised maybe we didnt send all clinical info for it. She asked to recieve a call back to go over options.) 06/09/2018 Telephone [facility] [address] [place] [address] Social History Date Tobacco Use [...] - Ifeanyi Silveira - 06/13/2018 11:25 AM PRISON PSYCHIATRIST R/S pt. For 07/03 and 07/04 ON PSYCHIATRIST * Telephone Encounter - Roselyn Dudley - 06/13/2018 10:28 AM PRISON PSYCHIATRIST Pt needs to reschedule her vein procedure due to not having transportation. If time is available for Dr. Oswald, pt is thinking of the following week. Please call [phone] ON PSYCHIATRIST * Telephone Encounter - Stella Anderson - 06/09/2018 12:47 PM PRISON PSYCHIATRIST Notes in original telephone encounter regarding matter. ON PSYCHIATRIST * Telephone Encounter - Angela Roberson - 06/09/2018 12:09 PM PRISON PSYCHIATRIST Pt wanted to know could she be re submitted to Insurance for vein procedure. Was advised maybe we didnt send all clinical info for it. She asked to recieve a ca ll back to go over options. ON PSYCHIATRIST documented in this encounter Plan of Treatment Not on filedocumented as of this encounter Visit Diagnoses Not on filedocumented in this encounter
[2018-11-22] MEDS ORDERED: RT-ALBUTEROL/IPRATROPIUM 3 ML (DUONEB) VIAL INH ONE (16:30)
--- NOTE | 2018-11-22 16:34 | ED Respiratory ---
General Chief Complaint: Respiratory Problems Stated Complaint: SOA (ASTHMA), COPD CONCERNS Nursing Triage Note: INCREASED SOA OVER LAST COUPLE OF DAYS. THINKS IT IS RELATED TO HER COPD. Source: patient Exam Limitations: no limitations History of Present Illness Date Seen by Provider: Nov 22, 2018 Time Seen by Provider: 16:32 Initial Comments To ER with reports of increasing shortness of breath and productive cough. She wears oxygen at night. She has COPD. She denies fevers or chills. Timing/Duration: yesterday, getting worse Severity: moderate Prior Episodes/Possible Cause: frequent episodes Associated Symptoms: cough, shortness of breath, wheezing Allergies and Home Medications Allergies Coded Allergies: aspirin (Verified Allergy, Severe, ANAPHYLAXIS, 08/07/17) ibuprofen (Verified Allergy, Severe, ANAPHYLAXIS, 08/07/17) ketorolac (Verified Allergy, Severe, ANAPHYLAXIS, 08/07/17) tetanus and diphtheria toxoids (Unverified Allergy, Severe, ANAPHYLAXIS, 08/07/17) aloe (Verified Allergy, Mild, RASH, 08/07/17) latex (Verified Allergy, Mild, RASH, 08/07/17) OCCASIONALLY IS IRRITATING SKIN scopolamine (Verified Allergy, Mild, 08/07/17) iodine (Verified Adverse Reaction, Unknown, 08/07/17) Patient states she got dizzy, diaphoretic and saw stars. Uncoded Allergies: ALOE VERA (Allergy, Unknown, 12/23/05) SILK SUTURES (Adverse Reaction, Unknown, BODY REJECTS SUTURES, 10/07/13) Home Medications Albuterol Sulfate 2.5 Mg/3 Ml Vial.neb, 2.5 MG NEB TID, (Reported) MIXES WITH IPRATROPIUM SOLUTION Albuterol Sulfate 8.5 Gm Hfa.aer.ad, 2 PUFF IH Q4H PRN for SHORTNESS OF BREATH, (Reported) Albuterol Sulfate 2.5 Mg/3 Ml Vial.neb, 2.5 MG NEB Q2H PRN for SHORTNESS OF BREATH, (Reported) Alprazolam 1 Mg Tablet, 1 MG PO Q8H PRN for ANXIETY, (Reported) Calcium Carbonate/Vitamin D3 1 Each Tablet, 1 TAB PO BID, (Reported) Cephalexin 500 Mg Tablet, 500 MG PO TID Prescribed by: JASON GERARDO on 09/10/18 0480 Enoxaparin Sodium 40 Mg/0.4 Ml Syringe, 40 MG SQ BID, (Reported) FILLED 08-11-18 (PLEASE UPDATE START DATE WITH PATIENT) Furosemide 80 Mg Tablet, 40 MG PO DAILY, (Reported) TAKES 1/2 (80MG) TABLET Hydrocodone Bit/Acetaminophen 1 Ea Tablet, 1 EACH PO Q4H PRN for PAIN-MODERATE Prescribed by: TEDDY PHILIP on 08/21/18 1330 Hyoscyamine Sulfate 0.125 Mg Tab.rapdis, 0.125 MG SL Q6H PRN for ABDOMINAL PAIN, (Reported) Ipratropium [place] 0.2 Mg/1 Ml Solution, 1 VIAL NEB TID, (Reported) MIXES WITH ALBUTEROL SOLUTION Loratadine 10 Mg Tablet, 10 MG PO DAILY, (Reported) Montelukast Sodium 10 Mg Tablet, 10 MG PO HS, (Reported) Pantoprazole Sodium 40 Mg Tablet.dr, 40 MG PO DAILY, (Reported) Potassium Chloride 10 Meq Tablet.er, 20 MEQ PO BID, (Reported) TAKES 2 (10 MEQ) TABLETS Prednisone 20 Mg Tab, PO UD, (Reported) TAKE 3 (20MG) TABS DAILY X 3 DAYS TAKE 2 (20MG) TABS DAILY X 3 DAYS TAKE 1 (20MG) TAB DAILY X 3 DAYS FILLED 08-18-18 Promethazine HCl 25 Mg Tablet, 25 MG PO Q6H PRN for NAUSEA/VOMITING-2ND LINE, (Reported) Patient Home Medication List Home Medication List Reviewed: Yes Review of Systems Review of Systems Constitutional: see HPI EENTM: see HPI Respiratory: see HPI, cough, short of breath, wheezing Cardiovascular: no symptoms reported 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: no symptoms reported Musculoskeletal: no symptoms reported Skin: no symptoms reported Psychiatric/Neurological: No Symptoms Reported Hematologic/Lymphatic: No Symptoms Reported Immunological/Allergic: no symptoms reported Past Axcysrx-Vybbwn-Kpwuyk Hx Patient Social History Drug of Choice: + IV COCAINE USE Type Used: Cigarettes Former Smoker, Quit: Nov 17, 2000 2nd Hand Smoke Exposure: No Recent Foreign Travel: No Contact w/Someone Who Travel: No Recent Infectious Disease Expo: No Recent Hopitalizations: No Immunizations Up To Date Tetanus Booster (TDap): Unknown PED Vaccines UTD: No Date of Pneumonia Vaccine: Jul 08, 2012 Date of Influenza Vaccine: Mar 11, 2012 Seasonal Allergies Seasonal Allergies: Yes Past Medical History Surgeries: Yes Abdominal, Adenoidectomy, Section, Gallbladder, Hysterectomy, Orthopedic, Tonsillectomy, Vascular Surgery Respiratory: Yes (O2 AT HS 2-3L/NC AND PRN--NOCTURNAL HYPOXIA; ) Asthma, Pneumonia, Chronic Bronchitis, Pulmonary Embolism, COPD Currently Using CPAP: No Currently Using BIPAP: No Cardiac: Yes Chronic Edema/Swelling, Deep Vein Thrombosis, High Cholesterol, Hypertension, Peripheral Vascular Neurological: Yes Neuropathy 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 Disorders: No 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 Disorders: Denies PROTECTION CONSULTANT History: Hysterectomy, Menopausal Sexually Transmitted Disease: No HIV/AIDS: No 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: Yes Kidney Infection, Bladder Infection, Kidney Stones Gastrointestinal: Yes (MULTIPLE HERNIA REPAIRS; MULTIPLE EGD'S /COLONOSCOPIES/POLYPECTOMIES) Abdominal Hernia, Gastroesophageal Reflux, Chronic Constipation, Chronic Diarrhea, Hepatitis, Polyps, Hiatal Hernia, Gall Bladder Disease, Irritable Bowel Musculoskeletal: Yes Arthritis Endocrine: Yes ("PRE-DIABETIC" ) HEENT: Yes (NASAL POLYPS) Cataract Loss of Vision: Denies Hearing Impairment: Denies Cancer: No Did You Recieve Any Treatments: No Psychosocial: Yes Anxiety Integumentary: Yes (CHRONIC VENOUS STASIS DERMATITIS AND ULCERS. ) Recent Skin Changes Blood Disorders: Yes (DVT'S/PE'S; PROBABLE PROTEIN C DEFICIENCY) Adverse Reaction/Blood Tranf: No (HAS HAD BLOOD WITH NO PROBLEMS) Family Medical History Alcoholism Alcoholism Arthritis Asthma Cancer Cancer of colon Cancer of mouth Cardiovascular disease Cataract Cataracts Chest pain Colon cancer Completed stroke Diabetes mellitus Family history: Allergy Family history: Arthritis Family history: Asthma Family history: Cardiovascular disease Family history: Coronary thrombosis Family history: Diabetes mellitus Family history: Gastrointestinal disease Family history: Hypertension Family history: Thyroid disorder Headache Hearing loss Heart disease History of - anemia History of - respiratory disease Hypercholesterolemia Hypercholesterolemia Infertile Malignant neoplasm of lung Myocardial infarction Myocardial infarction Psychotic disorder Respiratory disorder Stroke No Family History of: AIDS Abdominal aortic aneurysm Abdominal aortic aneurysm Fernando's disease Callaway's disease Alzheimer's disease Aphasia Aphasia Congenital disease Congenital heart disease Congenital heart disease Congestive heart failure Coronary thrombosis Cystic fibrosis Cystic fibrosis Deafness or hearing loss Dementia Dementia Drug abuse Dysphagia Dysphasia Family history: Alzheimer's disease Family history: Breast disease Family history: Glaucoma Family history: Osteoporosis Fibrocystic disease of breast Gastroenteritis Glaucoma Headache disorder Hereditary disease History of - disorder History of drug abuse Human immunodeficiency virus (HIV) seropositivity Infertility Kidney disease Kidney disease Neoplasm Not obtainable due to adoption Osteoporosis Parkinson's disease Parkinson's disease Prostate cancer Psychosocial problem Seizure disorder Seizure disorder Severe allergy Thyroid disease Tuberculosis Tuberculosis Visual disorder Visual impairment Cancer, COPD, Vascular Disease Physical Exam Vital Signs - First Documented 11/22/18 11/22/18 11/22/18 16:18 16:28 16:41 Temp 98.7 Pulse 117 Resp 22 B/P (MAP) 135/114 (121) Pulse Ox 88 O2 Delivery Nasal Cannula O2 Flow Rate 3.00 Capillary Refill : Less Than 3 Seconds Height: 5'5.00" Weight: 182lbs. 5.0oz. 82.647071kw; 30.9 BMI Method:Stated General Appearance: WD/WN, no apparent distress Eyes: Bilateral Eye Normal Inspection, Bilateral Eye PERRL, Bilateral Eye EOMI HEENT: PERRL/EOMI, normal ENT inspection Respiratory: no respiratory distress, no accessory muscle use, decreased breath sounds, other (sats are about 88-92% on room air. They drop down to the low 80% range with walking. She has oxygen at home but only worse at night. States she may need up at 2 daytime use as well for a few days and I would agree with that.) Gastrointestinal: normal bowel sounds, non tender, soft Extremities: normal range of motion, non-tender, other (2+ pitting edema bilateral lower extremities which she states is a bit worse than usual for her.) Neurologic/Psychiatric: alert, normal mood/affect, oriented x 3 Skin: normal color, warm/dry Progress/Results/Core Measures Suspected Sepsis Recent Fever Within 48 Hours: No Infection Criteria Present: Suspected New Infection New/Unexplained Altered Menta: No Sepsis Screen: Possible Sepsis Risk SIRS Temperature:98.7 Pulse: 117 Respiratory Rate: 22 Laboratory Tests 11/22/18 16:38: White Blood Count 7.3 Blood Pressure 135 /114 Mean: 121 Laboratory Tests 11/22/18 16:38: Creatinine 0.67, Platelet Count 228 Results/Orders Lab Results Laboratory Tests Test 11/22/18 16:38 Range/Units White Blood Count 7.3 4.3-11.0 10^3/uL Red Blood Count 4.43 4.35-5.85 10^6/uL Hemoglobin 12.2 11.5-16.0 G/DL Hematocrit 38 35-52 % Mean Corpuscular Volume 86 80-99 FL Mean Corpuscular Hemoglobin 28 25-34 PG Mean Corpuscular Hemoglobin Concent 32 32-36 G/DL Red Cell Distribution Width 15.0 H 10.0-14.5 % Platelet Count 228 130-400 10^3/uL Mean Platelet Volume 9.2 7.4-10.4 FL Neutrophils (%) (Auto) 48 42-75 % Lymphocytes (%) (Auto) 33 12-44 % Monocytes (%) (Auto) 9 0-12 % Eosinophils (%) (Auto) 9 0-10 % Basophils (%) (Auto) 1 0-10 % Neutrophils # (Auto) 3.5 1.8-7.8 X 10^3 Lymphocytes # (Auto) 2.4 1.0-4.0 X 10^3 Monocytes # (Auto) 0.7 0.0-1.0 X 10^3 Eosinophils # (Auto) 0.7 H 0.0-0.3 10^3/uL Basophils # (Auto) 0.0 0.0-0.1 10^3/uL Sodium Level 139 135-145 MMOL/L Potassium Level 3.1 L 3.6-5.0 MMOL/L Chloride Level 106 98-107 MMOL/L Carbon Dioxide Level 21 21-32 MMOL/L Anion Gap 12 5-14 MMOL/L Blood Urea Nitrogen 9 7-18 MG/DL Creatinine 0.67 0.60-1.30 MG/DL Estimat Glomerular Filtration Rate > 60 BUN/Creatinine Ratio 13 Glucose Level 95 70-105 MG/DL Calcium Level 8.9 8.5-10.1 MG/DL C-Reactive Protein High Sensitivity 0.20 0.00-0.50 MG/DL B-Type Natriuretic Peptide < 10.0 <100.0 PG/ML My Orders Orders - KAMRAN LINDQUIST EMPLOYEE REPRESENTATIVE Cbc With Automated Diff (11/22/18 16:18) Hs C Reactive Protein (11/22/18 16:18) Basic Metabolic Panel (11/22/18 16:18) Chest Pa/Lat (2 View) (11/22/18 16:18) Albuterol/Ipra Inhalation Soln (Duoneb I (11/22/18 16:30) Svn Small Volume Nebulizer (11/22/18 16:18) Promethazine/ Codeine Syrup (Phenergan W (11/22/18 16:45) Prednisone Tablet (Deltasone Tablet) (11/22/18 16:45) BNP (11/22/18 16:36) Albuterol Pre-Mix Nebs (Rt) (Proventil (11/22/18 16:45) Svn Small Volume Nebulizer (11/22/18 16:37) Potassium Chloride (Tablet) (K Dur Table (11/22/18 17:45) Medications Given in ED Current Medications Medications Dose Ordered Sig/Nahomi Route Start Time Stop Time Status Last Admin Dose Admin Albuterol/ Ipratropium 3 ml ONCE ONCE INH 11/22/18 16:30 11/22/18 16:31 DC 11/22/18 16:27 3 ML Prednisone 60 mg ONCE ONCE PO 11/22/18 16:45 11/22/18 16:46 DC 11/22/18 16:47 60 MG Promethazine HCl/ Codeine 5 ml ONCE ONCE PO 11/22/18 16:45 11/22/18 16:46 DC 11/22/18 16:46 5 ML Vital Signs/I&O 11/22/18 11/22/18 11/22/18 16:18 16:28 16:41 Temp 98.7 Pulse 117 Resp 22 B/P (MAP) 135/114 (121) Pulse Ox 88 93 93 O2 Delivery Nasal Cannula Nasal Cannula O2 Flow Rate 3.00 Capillary Refill : Less Than 3 Seconds Blood Pressure Mean: 121 Departure Impression Primary Impression: COPD (chronic obstructive pulmonary disease) Qualified Codes: J42 - Unspecified chronic bronchitis Disposition: 01 HOME, SELF-CARE Condition: Stable Departure-Patient Inst. Decision time for Depature: 18:08 Referrals: LEAH WOLF MD (PCP/Family) Primary Care Physician Patient Instructions: Exacerbation of COPD Add. Discharge Instructions: 1. Return to ER for any concerns 2. Follow-up with your doctor next week 3. Medication as directed. All discharge instructions reviewed with patient and/or family. Voiced understanding. Scripts Prednisone (Prednisone) 20 Mg Tab 40 MG PO DAILY, #6 TAB 0 Refills Prov: KAMRAN LINDQUIST APRN 11/22/18 KAMRAN LINDQUIST EMPLOYEE REPRESENTATIVE Nov 22, 2018 16:34
--- NOTE | 2018-11-22 16:40 | NUR ---
Patient to ER room 5 with complaint of increased shortness of breath and cough x 2 weeks. Patient states it has worsened over the last several days which brought her to the ER. Patient has a history of COPD. Patient states she wears Oxygen at home between 2-3 Liters at night but has been needing to wear it during the day at times. Patient has a barking cough present. Oxygen saturation is 93% on 3 LPM in ER.
[2018-11-22] MEDS ORDERED: predniSONE 20 MG TAB PO ONE (16:45)
[2018-11-22] MEDS ORDERED: RT-ALBUTEROL SULF 2.5 MG/3 ML PRE-MIX VIAL INH SCH (16:45)
[2018-11-22] MEDS ORDERED: PROMETHAZINE/ CODEINE SYRUP 5 ML UDC PO ONE (16:45)
[2018-11-22 16:46] LABS: BASOPHILS % (AUTO) 1 % (0-10); EOSINOPHILS # (AUTO) 0.7 10^3/uL (0.0-0.3); EOSINOPHILS % (AUTO) 9 % (0-10); HEMATOCRIT 38 % (35-52); HEMOGLOBIN 12.2 G/DL (11.5-16.0); LYMPHOCYTES # (AUTO) 2.4 X 10^3 (1.0-4.0); LYMPHOCYTES % (AUTO) 33 % (12-44); MEAN CORPUSCULAR HEMOGLOBIN 28 PG (25-34); MEAN CORPUSCULAR HGB CONC 32 G/DL (32-36); MEAN CORPUSCULAR VOLUME 86 FL (80-99); MEAN PLATELET VOLUME 9.2 FL (7.4-10.4); MONOCYTES # (AUTO) 0.7 X 10^3 (0.0-1.0); MONOCYTES % (AUTO) 9 % (0-12); NEUTROPHILS # (AUTO) 3.5 X 10^3 (1.8-7.8); NEUTROPHILS % (AUTO) 48 % (42-75); PLATELET COUNT 228 10^3/uL (130-400); WHITE BLOOD COUNT 7.3 10^3/uL (4.3-11.0)
[2018-11-22 17:03] LABS: BUN/CREATININE RATIO 13; CALCIUM 8.9 MG/DL (8.5-10.1); CARBON DIOXIDE 21 MMOL/L (21-32); CHLORIDE 106 MMOL/L (98-107); CREATININE SERUM 0.67 MG/DL (0.60-1.30); GFR ESTIMATED > 60; GLUCOSE 95 MG/DL (70-105); POTASSIUM 3.1 MMOL/L (3.6-5.0); SODIUM 139 MMOL/L (135-145)
[2018-11-22] MEDS ORDERED: KCL 20 MEQ TAB (K-DUR) PO ONE (17:45)
[2018-11-22] MEDS ORDERED: PRD20T PO (18:09)
[2018-11-22 18:46] VITALS: BP 111/62
--- NOTE | 2018-11-22 18:56 | Diagnostic Imaging Report ---
INDICATION: Shortness of air for the last couple of days, history of COPD. EXAMINATION: Two-view chest dated 11/22/2018. COMPARISON: 07/18/2018. FINDINGS: Lungs are hyperinflated. Atelectasis is noted at the bases. Mild infiltrate less likely but not excluded. Correlate with symptoms. Heart and pulmonary vasculature are unremarkable. IMPRESSION: 1. Hyperinflation of the lungs with bibasilar atelectasis noted. Dictated by: Dictated on workstation # [id number]
== END 2018-11-22 18:46 | disposition home or self-care (01) ==
LOC: EDUNIT# 16:12 → ER 16:14
DX: J44.9 Chronic obstructive pulmonary disease, unspecified (principal); I10 Essential (primary) hypertension; E78.00 Pure hypercholesterolemia, unspecified; I73.9 Peripheral vascular disease, unspecified; G62.9 Polyneuropathy, unspecified; K58.9 Irritable bowel syndrome, unspecified; K21.9 Gastro-esophageal reflux disease without esophagitis; F41.9 Anxiety disorder, unspecified; Z86.010 Personal history of colon polyps; Z98.890 Other specified postprocedural states; Z87.442 Personal history of urinary calculi; Z86.718 Personal history of other venous thrombosis and embolism; Z87.01 Personal history of pneumonia (recurrent); Z88.6 Allergy status to analgesic agent; Z88.7 Allergy status to serum and vaccine; Z91.040 Latex allergy status; Z88.8 Allergy status to other drugs, medicaments and biological substances; Z87.891 Personal history of nicotine dependence; Z90.710 Acquired absence of both cervix and uterus; Z90.89 Acquired absence of other organs; Z99.81 Dependence on supplemental oxygen; Z86.711 Personal history of pulmonary embolism; Z82.49 Family history of ischemic heart disease and other diseases of the circulatory system; Z80.0 Family history of malignant neoplasm of digestive organs; Z80.1 Family history of malignant neoplasm of trachea, bronchus and lung
CPT/HCPCS: 36415; 71046; 80048; 83880; 85025; 86141; 94640

== ENCOUNTER 2018-12-13 11:13 | Emergency (ER) | payer MEDICAID ==
[~2018-12-13] VITALS: Ht 165.1 cm; Wt 83.5 kg
[~2018-12-13 11:13] MED LIST changes: -BUME1TAB4 PO; +BUME1TAB8 PO; -D-ME118S7 PO; +PROM118S4 PO
--- NOTE | 2018-12-13 12:04 | ED Back Pain ---
General Chief Complaint: Back Problems Stated Complaint: RIGHT SIDE RIB PAIN Nursing Triage Note: left back pain radiating to left side of chest x " couple months" thinks its from her asthma. pt has a congested cough in er. pt denies more dyspnea then usual. no acute sighns of dyspnea noted. Nursing Sepsis Screen: No Definite Risk Source of Information: Patient Exam Limitations: No Limitations History of Present Illness Date Seen by Provider: Dec 13, 2018 Time Seen by Provider: 11:58 Initial Comments To ER with reports of left posterior lower chest wall pain. This been intermittent for 2 months, occasionally radiates around to the front. It seems to be worse at night when she lays down flat. She has an extensive history of COPD. She has not sought evaluation from primary care for this. She has not taken anything for pain. Location: Paraspinous Muscles Timing/Duration: 1-2 Days Severity: Moderate Pain/Injury Location: Back, Chest Method of Injury: Unknown Associated Symptoms: denies symptoms Allergies and Home Medications Allergies Coded Allergies: aspirin (Verified Allergy, Severe, ANAPHYLAXIS, 08/07/17) ibuprofen (Verified Allergy, Severe, ANAPHYLAXIS, 08/07/17) ketorolac (Verified Allergy, Severe, ANAPHYLAXIS, 08/07/17) tetanus and diphtheria toxoids (Unverified Allergy, Severe, ANAPHYLAXIS, 08/07/17) aloe (Verified Allergy, Mild, RASH, 08/07/17) latex (Verified Allergy, Mild, RASH, 08/07/17) OCCASIONALLY IS IRRITATING SKIN scopolamine (Verified Allergy, Mild, 08/07/17) iodine (Verified Adverse Reaction, Unknown, 08/07/17) Patient states she got dizzy, diaphoretic and saw stars. Uncoded Allergies: ALOE VERA (Allergy, Unknown, 12/23/05) SILK SUTURES (Adverse Reaction, Unknown, BODY REJECTS SUTURES, 10/07/13) Home Medications Albuterol Sulfate 2.5 Mg/3 Ml Vial.neb, 2.5 MG NEB TID, (Reported) MIXES WITH IPRATROPIUM SOLUTION Albuterol Sulfate 8.5 Gm Hfa.aer.ad, 2 PUFF IH Q4H PRN for SHORTNESS OF BREATH, (Reported) Albuterol Sulfate 2.5 Mg/3 Ml Vial.neb, 2.5 MG NEB Q2H PRN for SHORTNESS OF BREATH, (Reported) Alprazolam 1 Mg Tablet, 1 MG PO Q8H PRN for ANXIETY, (Reported) Calcium Carbonate/Vitamin D3 1 Each Tablet, 1 TAB PO BID, (Reported) Cephalexin 500 Mg Tablet, 500 MG PO TID Prescribed by: JASON GERARDO on 09/10/18 2240 Enoxaparin Sodium 40 Mg/0.4 Ml Syringe, 40 MG SQ BID, (Reported) FILLED 08-11-18 (PLEASE UPDATE START DATE WITH PATIENT) Furosemide 80 Mg Tablet, 40 MG PO DAILY, (Reported) TAKES 1/2 (80MG) TABLET Hydrocodone Bit/Acetaminophen 1 Ea Tablet, 1 EACH PO Q4H PRN for PAIN-MODERATE Prescribed by: TEDDY PHILIP on 08/21/18 1330 Hyoscyamine Sulfate 0.125 Mg Tab.rapdis, 0.125 MG SL Q6H PRN for ABDOMINAL PAIN, (Reported) Ipratropium [place] 0.2 Mg/1 Ml Solution, 1 VIAL NEB TID, (Reported) MIXES WITH ALBUTEROL SOLUTION Loratadine 10 Mg Tablet, 10 MG PO DAILY, (Reported) Montelukast Sodium 10 Mg Tablet, 10 MG PO HS, (Reported) Pantoprazole Sodium 40 Mg Tablet.dr, 40 MG PO DAILY, (Reported) Potassium Chloride 10 Meq Tablet.er, 20 MEQ PO BID, (Reported) TAKES 2 (10 MEQ) TABLETS Prednisone 20 Mg Tab, PO UD, (Reported) TAKE 3 (20MG) TABS DAILY X 3 DAYS TAKE 2 (20MG) TABS DAILY X 3 DAYS TAKE 1 (20MG) TAB DAILY X 3 DAYS FILLED 08-18-18 Prednisone 20 Mg Tab, 40 MG PO DAILY Prescribed by: KAMRAN LINDQUIST on 11/22/18 180 Promethazine HCl 25 Mg Tablet, 25 MG PO Q6H PRN for NAUSEA/VOMITING-2ND LINE, (Reported) Patient Home Medication List Home Medication List Reviewed: Yes Review of Systems Constitutional: see HPI EENTM: see HPI Respiratory: no symptoms reported Cardiovascular: no symptoms reported 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: no symptoms reported Musculoskeletal: no symptoms reported Skin: see HPI Psychiatric/Neurological: No Symptoms Reported Past Yrpmynf-Qswcmd-Gryjpv Hx Patient Social History Alcohol Use: Denies Use Recreational Drug Use: No Drug of Choice: + IV COCAINE USE Smoking Status: Never a Smoker Type Used: Cigarettes Former Smoker, Quit: Nov 17, 2000 2nd Hand Smoke Exposure: No Recent Foreign Travel: No Contact w/Someone Who Travel: No Recent Infectious Disease Expo: No Recent Hopitalizations: No Physical Abuse: No Sexual Abuse: No Immunizations Up To Date Tetanus Booster (TDap): Unknown PED Vaccines UTD: No Date of Pneumonia Vaccine: Jul 08, 2012 Date of Influenza Vaccine: Mar 11, 2012 Seasonal Allergies Seasonal Allergies: Yes Past Medical History Surgeries: Yes Abdominal, Adenoidectomy, Section, Gallbladder, Hysterectomy, Orthopedic, Tonsillectomy, Vascular Surgery Respiratory: Yes (O2 AT HS 2-3L/NC AND PRN--NOCTURNAL HYPOXIA; ) Asthma, Pneumonia, Chronic Bronchitis, Pulmonary Embolism, COPD Currently Using CPAP: No Currently Using BIPAP: No Cardiac: Yes Chronic Edema/Swelling, Deep Vein Thrombosis, High Cholesterol, Hypertension, Peripheral Vascular Neurological: Yes Neuropathy 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 Disorders: No 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, 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 Sexually Transmitted Disease: No HIV/AIDS: No 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: Yes Kidney Infection, Bladder Infection, Kidney Stones Gastrointestinal: Yes (MULTIPLE HERNIA REPAIRS; MULTIPLE EGD'S /COLONOSCOPIES/POLYPECTOMIES) Abdominal Hernia, Gastroesophageal Reflux, Chronic Constipation, Chronic Diarrhea, Hepatitis, Polyps, Hiatal Hernia, Gall Bladder Disease, Irritable Bowel Musculoskeletal: Yes Arthritis Endocrine: Yes ("PRE-DIABETIC" ) HEENT: Yes (NASAL POLYPS) Cataract Loss of Vision: Denies Hearing Impairment: Denies Cancer: No Did You Recieve Any Treatments: No Psychosocial: Yes Anxiety Integumentary: Yes (CHRONIC VENOUS STASIS DERMATITIS AND ULCERS. ) Recent Skin Changes Blood Disorders: Yes (DVT'S/PE'S; PROBABLE PROTEIN C DEFICIENCY) Adverse Reaction/Blood Tranf: No (HAS HAD BLOOD WITH NO PROBLEMS) Family Medical History Alcoholism Alcoholism Arthritis Asthma Cancer Cancer of colon Cancer of mouth Cardiovascular disease Cataract Cataracts Chest pain Colon cancer Completed stroke Diabetes mellitus Family history: Allergy Family history: Arthritis Family history: Asthma Family history: Cardiovascular disease Family history: Coronary thrombosis Family history: Diabetes mellitus Family history: Gastrointestinal disease Family history: Hypertension Family history: Thyroid disorder Headache Hearing loss Heart disease History of - anemia History of - respiratory disease Hypercholesterolemia Hypercholesterolemia Infertile Malignant neoplasm of lung Myocardial infarction Myocardial infarction Psychotic disorder Respiratory disorder Stroke No Family History of: AIDS Abdominal aortic aneurysm Abdominal aortic aneurysm Fernando's disease Fernando's disease Alzheimer's disease Aphasia Aphasia Congenital disease Congenital heart disease Congenital heart disease Congestive heart failure Coronary thrombosis Cystic fibrosis Cystic fibrosis Deafness or hearing loss Dementia Dementia Drug abuse Dysphagia Dysphasia Family history: Alzheimer's disease Family history: Breast disease Family history: Glaucoma Family history: Osteoporosis Fibrocystic disease of breast Gastroenteritis Glaucoma Headache disorder Hereditary disease History of - disorder History of drug abuse Human immunodeficiency virus (HIV) seropositivity Infertility Kidney disease Kidney disease Neoplasm Not obtainable due to adoption Osteoporosis Parkinson's disease Parkinson's disease Prostate cancer Psychosocial problem Seizure disorder Seizure disorder Severe allergy Thyroid disease Tuberculosis Tuberculosis Visual disorder Visual impairment Cancer, COPD, Vascular Disease Physical Exam Vital Signs Vital Signs - First Documented 12/13/18 11:25 Temp 98.3 Pulse 100 Resp 20 B/P (MAP) 101/74 (83) Capillary Refill : Less Than 3 Seconds Height, Weight, BMI Height: 5'5.00" Weight: 184lbs. 5.0oz. 83.202781jg; 30.9 BMI Method:Stated General Appearance: No Apparent Distress, WD/WN HEENT: PERRL/EOMI, TMs Normal Neck: Full Range of Motion, Normal Inspection Respiratory: No Accessory Muscle Use, No Respiratory Distress Gastrointestinal: Normal Bowel Sounds, Non Tender, Soft Extremity: Normal Capillary Refill, Normal Inspection Neurologic/Psychiatric: Alert, Oriented x3 Skin: Normal Color, Warm/Dry Progress/Results/Core Measures Results/Orders Lab Results Laboratory Tests Test 12/13/18 12:10 Range/Units My Orders Orders - KAMRAN LINDQUIST APRN Chest Pa/Lat (2 View) (12/13/18 11:57) Ekg Tracing (12/13/18 11:57) Troponin I (12/13/18 11:57) Protime With Inr (12/13/18 12:12) Albuterol/Ipra Inhalation Soln (Duoneb I (12/13/18 12:15) Svn Small Volume Nebulizer (12/13/18 12:12) Medications Given in ED Current Medications Medications Dose Ordered Sig/Nahomi Route Start Time Stop Time Status Last Admin Dose Admin Albuterol/ Ipratropium 3 ml ONCE ONCE INH 12/13/18 12:15 12/13/18 12:16 DC 12/13/18 12:22 3 ML Vital Signs/I&O 12/13/18 11:25 Temp 98.3 Pulse 100 Resp 20 B/P (MAP) 101/74 (83) Blood Pressure Mean: 83 Diagnostic Imaging Diagonstic Imaging: Xray Consults : Consults Notes NAME: SUJEY FELIZ [facility] REC#: [id number] PT STATUS: REG ER : 1960 PHYSICIAN: KAMRAN LINDQUIST APRN ADMIT DATE: 12/13/18/ER Draft Date of Exam:12/13/18 CHEST PA/LAT (2 VIEW) EXAM: CHEST PA/LAT (2 VIEW) INDICATION: Left chest pain. COMPARISON: Chest radiograph 11/22/2018. FINDINGS: Normal heart size and central pulmonary vascularity. Hyperinflation. No focal pulmonary opacity. No pleural effusion or pneumothorax. No acute osseous findings. No significant change. IMPRESSION: COPD. No acute cardiopulmonary findings. Dictated on workstation # [id number] Dict: 12/13/18 1227 Trans: 12/13/18 1233 [facility] [id number] Interpreted by: LAURA OLVERA MD Electronically signed by: Departure Impression Primary Impression: Chest wall pain Disposition: 01 HOME, SELF-CARE Condition: Stable Departure-Patient Inst. Decision time for Depature: 12:38 Referrals: LEAH WOLF MD (PCP/Family) Primary Care Physician Patient Instructions: NO INSTRUCTIONS GIVEN Add. Discharge Instructions: All discharge instructions reviewed with patient and/or family. Voiced understan ramy. Scripts Methocarbamol (Robaxin-750) 750 Mg Tablet 750 MG PO Q6H PRN for PAIN-MODERATE TO SEVERE, #10 TAB Prov: KAMRAN LINDQUIST APRN 12/13/18 KAMRAN LINDQUIST APRN Dec 13, 2018 12:04
[2018-12-13] MEDS ORDERED: RT-ALBUTEROL/IPRATROPIUM 3 ML (DUONEB) VIAL INH ONE (12:15)
--- NOTE | 2018-12-13 12:33 | Diagnostic Imaging Report ---
EXAM: CHEST PA/LAT (2 VIEW) INDICATION: Left chest pain. COMPARISON: Chest radiograph 11/22/2018. FINDINGS: Normal heart size and central pulmonary vascularity. Hyperinflation. No focal pulmonary opacity. No pleural effusion or pneumothorax. No acute osseous findings. No significant change. IMPRESSION: COPD. No acute cardiopulmonary findings. Dictated by: Dictated on workstation # [id number]
[2018-12-13] MEDS ORDERED: METH-313 PO (12:40)
[2018-12-13 12:45] LABS: INR 2.3 (0.8-1.4); PROTHROMBIN TIME PATIENT 26.1 SEC (12.2-14.7)
[2018-12-13 12:57] VITALS: BP 13/82
== END 2018-12-13 12:57 | disposition home or self-care (01) ==
LOC: EDUNIT# 11:13 → ER 11:15
DX: R07.89 Other chest pain (principal); J44.9 Chronic obstructive pulmonary disease, unspecified; I10 Essential (primary) hypertension; E78.00 Pure hypercholesterolemia, unspecified; G62.9 Polyneuropathy, unspecified; K21.9 Gastro-esophageal reflux disease without esophagitis; F41.9 Anxiety disorder, unspecified; K58.9 Irritable bowel syndrome, unspecified; Z86.718 Personal history of other venous thrombosis and embolism; Z87.442 Personal history of urinary calculi; Z86.711 Personal history of pulmonary embolism; Z88.6 Allergy status to analgesic agent; Z88.7 Allergy status to serum and vaccine; Z88.8 Allergy status to other drugs, medicaments and biological substances; Z91.041 Radiographic dye allergy status; Z91.040 Latex allergy status; Z87.891 Personal history of nicotine dependence; Z90.89 Acquired absence of other organs; Z90.710 Acquired absence of both cervix and uterus; Z80.0 Family history of malignant neoplasm of digestive organs; Z82.49 Family history of ischemic heart disease and other diseases of the circulatory system; Z80.8 Family history of malignant neoplasm of other organs or systems; Z80.1 Family history of malignant neoplasm of trachea, bronchus and lung
CPT/HCPCS: 36415; 71046; 84484; 85610; 93005

== ENCOUNTER → 2019-01-15 | Outpatient (CLI) | payer MEDICAID ==
[~2019-01-15] MED LIST changes: +METH-313 PO
--- NOTE | 2019-01-15 15:09 | Diagnostic Imaging Report ---
CLINICAL INDICATION: Patient with asthma, shortness of breath and COPD. EXAM: Chest x-ray PA and lateral views. COMPARISONS: Chest x-ray dated 12/13/2018. FINDINGS: Lungs/pleura: There are slightly hyperinflated lungs, increased retrosternal clear space, and flattened hemidiaphragms which can be seen with COPD changes. Stable mild bibasilar atelectasis or scarring. There is no interval lung infiltrate seen. There is no pneumothorax. There is no pleural effusion. Mediastinum: Unremarkable. Pulmonary vasculature: Unremarkable. Heart: Unremarkable. Bones/extrathoracic soft tissue: There is right curvature of the thoracic spine with small degenerative spurs. IMPRESSION: COPD lung changes. There is no interval radiographic evidence of acute cardiopulmonary process. Dictated by: Dictated on workstation # [id number]
== END ==
LOC: RAD 14:47
PROVIDERS: ATTEND Family Medicine
DX: J44.9 Chronic obstructive pulmonary disease, unspecified (principal)
CPT/HCPCS: 71046

== ENCOUNTER 2019-02-06 17:45 | Emergency (ER) | payer MEDICAID ==
[~2019-02-06] VITALS: Ht 165 cm; Wt 82.0 kg
--- NOTE | 2019-02-06 18:30 | ED Lower Extremity ---
General Chief Complaint: Lower Extremity Stated Complaint: LT ANKLE PAIN Nursing Triage Note: PT AMBULATE TO TRIAGE ROOM WITH C/O LEFT ANKLE PAIN STARTING TODAY. PT STATES SHE STOOD UP AND HER ANKLE ROLLED AND NOW HER TOES TINGLE. Nursing Sepsis Screen: No Definite Risk Source: patient Exam Limitations: no limitations History of Present Illness Date Seen by Provider: Feb 06, 2019 Time Seen by Provider: 18:29 Initial Comments To ER with left anterolateral ankle pain after she stood up and inverted left ankle just prior to arrival. She is in ventilatory into the emergency room without use of assistive device Onset: just prior to arrival Severity: moderate Pain/Injury Location: left foot, left ankle Method of Injury: twisted Modifying Factors: Worse With Movement Allergies and Home Medications Allergies Coded Allergies: aspirin (Verified Allergy, Severe, ANAPHYLAXIS, 08/07/17) ibuprofen (Verified Allergy, Severe, ANAPHYLAXIS, 08/07/17) ketorolac (Verified Allergy, Severe, ANAPHYLAXIS, 08/07/17) tetanus and diphtheria toxoids (Unverified Allergy, Severe, ANAPHYLAXIS, 08/07/17) aloe (Verified Allergy, Mild, RASH, 08/07/17) latex (Verified Allergy, Mild, RASH, 08/07/17) OCCASIONALLY IS IRRITATING SKIN scopolamine (Verified Allergy, Mild, 08/07/17) iodine (Verified Adverse Reaction, Unknown, 08/07/17) Patient states she got dizzy, diaphoretic and saw stars. Uncoded Allergies: ALOE VERA (Allergy, Unknown, 12/23/05) SILK SUTURES (Adverse Reaction, Unknown, BODY REJECTS SUTURES, 10/07/13) Home Medications Albuterol Sulfate 2.5 Mg/3 Ml Vial.neb, 2.5 MG NEB TID, (Reported) MIXES WITH IPRATROPIUM SOLUTION Albuterol Sulfate 8.5 Gm Hfa.aer.ad, 2 PUFF IH Q4H PRN for SHORTNESS OF BREATH, (Reported) Albuterol Sulfate 2.5 Mg/3 Ml Vial.neb, 2.5 MG NEB Q2H PRN for SHORTNESS OF BREATH, (Reported) Alprazolam 1 Mg Tablet, 1 MG PO Q8H PRN for ANXIETY, (Reported) Calcium Carbonate/Vitamin D3 1 Each Tablet, 1 TAB PO BID, (Reported) Cephalexin 500 Mg Tablet, 500 MG PO TID Prescribed by: JASON GERARDO on 09/10/18 2240 Enoxaparin Sodium 40 Mg/0.4 Ml Syringe, 40 MG SQ BID, (Reported) FILLED 08-11-18 (PLEASE UPDATE START DATE WITH PATIENT) Furosemide 80 Mg Tablet, 40 MG PO DAILY, (Reported) TAKES 1/2 (80MG) TABLET Hydrocodone Bit/Acetaminophen 1 Ea Tablet, 1 EACH PO Q4H PRN for PAIN-MODERATE Prescribed by: TEDDY PHILIP on 08/21/18 1330 Hyoscyamine Sulfate 0.125 Mg Tab.rapdis, 0.125 MG SL Q6H PRN for ABDOMINAL PAIN, (Reported) Ipratropium Bolt 0.2 Mg/1 Ml Solution, 1 VIAL NEB TID, (Reported) MIXES WITH ALBUTEROL SOLUTION Loratadine 10 Mg Tablet, 10 MG PO DAILY, (Reported) Methocarbamol 750 Mg Tablet, 750 MG PO Q6H PRN for PAIN-MODERATE TO SEVERE Prescribed by: KAMRAN LINDQUIST on 12/13/18 1240 Montelukast Sodium 10 Mg Tablet, 10 MG PO HS, (Reported) Pantoprazole Sodium 40 Mg Tablet.dr, 40 MG PO DAILY, (Reported) Potassium Chloride 10 Meq Tablet.er, 20 MEQ PO BID, (Reported) TAKES 2 (10 MEQ) TABLETS Prednisone 20 Mg Tab, PO UD, (Reported) TAKE 3 (20MG) TABS DAILY X 3 DAYS TAKE 2 (20MG) TABS DAILY X 3 DAYS TAKE 1 (20MG) TAB DAILY X 3 DAYS FILLED 08-18-18 Prednisone 20 Mg Tab, 40 MG PO DAILY Prescribed by: KAMRAN LINDQUIST on 11/22/18 1809 Promethazine HCl 25 Mg Tablet, 25 MG PO Q6H PRN for NAUSEA/VOMITING-2ND LINE, (Reported) Patient Home Medication List Home Medication List Reviewed: Yes Review of Systems Constitutional: see HPI EENTM: see HPI Respiratory: no symptoms reported Cardiovascular: no symptoms reported 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: no symptoms reported Musculoskeletal: see HPI Skin: no symptoms reported Psychiatric/Neurological: No Symptoms Reported Past Gbfakdd-Qhgfao-Cgomej Hx Patient Social History Alcohol Use: Denies Use Recreational Drug Use: No (15 yrs ago---IV drug user including Cocaine-CLEAN SI NCE 1994) Drug of Choice: + IV COCAINE USE Smoking Status: Former Smoker Type Used: Cigarettes Former Smoker, Quit: Nov 17, 2000 2nd Hand Smoke Exposure: No Recent Foreign Travel: No Contact w/Someone Who Travel: No Recent Infectious Disease Expo: No Recent Hopitalizations: No Physical Abuse: No Sexual Abuse: No Mistreated: No Fear: No Immunizations Up To Date Tetanus Booster (TDap): Unknown PED Vaccines UTD: No Date of Pneumonia Vaccine: Jul 08, 2012 Date of Influenza Vaccine: Mar 11, 2012 Seasonal Allergies Seasonal Allergies: Yes Past Medical History Surgeries: Yes Abdominal, Adenoidectomy, Section, Gallbladder, Hysterectomy, Orthopedic, Tonsillectomy, Vascular Surgery Respiratory: Yes (O2 AT HS 2-3L/NC AND PRN--NOCTURNAL HYPOXIA; ) Asthma, Pneumonia, Chronic Bronchitis, Pulmonary Embolism, COPD Currently Using CPAP: No Currently Using BIPAP: No Cardiac: Yes Chronic Edema/Swelling, Deep Vein Thrombosis, High Cholesterol, Hypertension, Peripheral Vascular Neurological: Yes Neuropathy 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 Disorders: No 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, 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 Sexually Transmitted Disease: No HIV/AIDS: No 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: Yes Kidney Infection, Bladder Infection, Kidney Stones Gastrointestinal: Yes (MULTIPLE HERNIA REPAIRS; MULTIPLE EGD'S /COLONOSCOPIES/POLYPECTOMIES) Abdominal Hernia, Gastroesophageal Reflux, Chronic Constipation, Chronic Diarrhea, Hepatitis, Polyps, Hiatal Hernia, Gall Bladder Disease, Irritable Bowel Musculoskeletal: Yes Arthritis Endocrine: Yes ("PRE-DIABETIC" ) HEENT: Yes (NASAL POLYPS) Cataract Loss of Vision: Denies Hearing Impairment: Denies Cancer: No Did You Recieve Any Treatments: No Psychosocial: Yes Anxiety Integumentary: Yes (CHRONIC VENOUS STASIS DERMATITIS AND ULCERS. ) Recent Skin Changes Blood Disorders: Yes (DVT'S/PE'S; PROBABLE PROTEIN C DEFICIENCY) Adverse Reaction/Blood Tranf: No (HAS HAD BLOOD WITH NO PROBLEMS) Family Medical History Alcoholism Alcoholism Arthritis Asthma Cancer Cancer of colon Cancer of mouth Cardiovascular disease Cataract Cataracts Chest pain Colon cancer Completed stroke Diabetes mellitus Family history: Allergy Family history: Arthritis Family history: Asthma Family history: Cardiovascular disease Family history: Coronary thrombosis Family history: Diabetes mellitus Family history: Gastrointestinal disease Family history: Hypertension Family history: Thyroid disorder Headache Hearing loss Heart disease History of - anemia History of - respiratory disease Hypercholesterolemia Hypercholesterolemia Infertile Malignant neoplasm of lung Myocardial infarction Myocardial infarction Psychotic disorder Respiratory disorder Stroke No Family History of: AIDS Abdominal aortic aneurysm Abdominal aortic aneurysm Fernando's disease Wood's disease Alzheimer's disease Aphasia Aphasia Congenital disease Congenital heart disease Congenital heart disease Congestive heart failure Coronary thrombosis Cystic fibrosis Cystic fibrosis Deafness or hearing loss Dementia Dementia Drug abuse Dysphagia Dysphasia Family history: Alzheimer's disease Family history: Breast disease Family history: Glaucoma Family history: Osteoporosis Fibrocystic disease of breast Gastroenteritis Glaucoma Headache disorder Hereditary disease History of - disorder History of drug abuse Human immunodeficiency virus (HIV) seropositivity Infertility Kidney disease Kidney disease Neoplasm Not obtainable due to adoption Osteoporosis Parkinson's disease Parkinson's disease Prostate cancer Psychosocial problem Seizure disorder Seizure disorder Severe allergy Thyroid disease Tuberculosis Tuberculosis Visual disorder Visual impairment Cancer, COPD, Vascular Disease Physical Exam Vital Signs Vital Signs - First Documented 02/06/19 17:59 Temp 37.0 Pulse 94 Resp 16 B/P (MAP) 122/85 (97) O2 Delivery Room Air Capillary Refill : Less Than 3 Seconds Height, Weight, BMI Height: 5'5.00" Weight: 184lbs. 5.0oz. 83.961672hc; 30.00 BMI Method:Stated General Appearance: WD/WN, no apparent distress Respiratory: no respiratory distress, no accessory muscle use Hips: bilateral hip non-tender, bilateral hip normal inspection Legs: bilateral leg non-tender, bilateral leg normal inspection, bilateral leg normal range of motion Knees: bilateral knee non-tender, bilateral knee normal inspection, bilateral knee normal range of motion Ankles: left ankle pain, left ankle soft tissue tenderness Feet: left foot pain, left foot soft tissue tenderness Neurologic/Psychiatric: alert, normal mood/affect, oriented x 3 Skin: normal color, warm/dry Progress/Results/Core Measures Results/Orders My Orders Orders - KAMRAN LINDQUIST APRN Foot, Left, 3 Views (02/06/19 18:29) Ankle, Left, 3 Views (02/06/19 18:29) Vital Signs/I&O 02/06/19 17:59 Temp 37.0 Pulse 94 Resp 16 B/P (MAP) 122/85 (97) O2 Delivery Room Air Blood Pressure Mean: 97 Departure Impression Primary Impression: Sprain and strain of ankle Disposition: 01 HOME, SELF-CARE Condition: Stable Departure-Patient Inst. Decision time for Depature: 19:42 Referrals: LEAH WOLF MD (PCP/Family) Primary Care Physician Patient Instructions: Ankle Sprain (DC) Add. Discharge Instructions: 1. Return to ER for any concerns 2. Follow-up with your doctor next week 3. All discharge instructions reviewed with patient and/or family. Voiced understanding. KAMRAN LINDQUIST [employer]ICS APPLICATION ENGINEER Feb 06, 2019 18:30
--- NOTE | 2019-02-06 19:44 | Diagnostic Imaging Report ---
INDICATION: Left ankle pain after injury. COMPARISON: None available. TECHNIQUE: Three nonweightbearing views of the left ankle. FINDINGS: No fracture or traumatic malalignment. No features of osteochondral lesion in talar dome. Moderate soft tissue swelling about the ankle. Achilles shadow is normal. No features of ankle joint effusion. Small plantar calcaneal spur. IMPRESSION: No acute osseous abnormality about the left ankle. Dictated by: Dictated on workstation # [id number]
--- NOTE | 2019-02-06 19:46 | Diagnostic Imaging Report ---
INDICATION: Left foot and ankle pain after injury. COMPARISON: None available. TECHNIQUE: Three non-weightbearing views of the left foot were obtained. FINDINGS: There is an old healed fracture in the distal fifth metatarsal. No acute fracture or traumatic malalignment by non-weightbearing imaging. Mild degenerative arthritis of the first MTP. Small plantar calcaneal spur. Os peroneum is present. IMPRESSION: 1. No acute fracture within the left foot. 2. Old healed fracture of the fifth metatarsal diaphysis. Dictated by: Dictated on workstation # [id number]
[2019-02-06 19:56] VITALS: BP 134/66
== END 2019-02-06 19:56 | disposition home or self-care (01) ==
LOC: EDUNIT# 17:45 → ER 17:47
DX: S93.402A Sprain of unspecified ligament of left ankle, initial encounter (principal); I10 Essential (primary) hypertension; J43.9 Emphysema, unspecified; E78.00 Pure hypercholesterolemia, unspecified; G62.9 Polyneuropathy, unspecified; K21.9 Gastro-esophageal reflux disease without esophagitis; K58.9 Irritable bowel syndrome, unspecified; F41.9 Anxiety disorder, unspecified; Z86.711 Personal history of pulmonary embolism; Z87.442 Personal history of urinary calculi; Z86.718 Personal history of other venous thrombosis and embolism; Z90.89 Acquired absence of other organs; Z90.710 Acquired absence of both cervix and uterus; Z87.891 Personal history of nicotine dependence; Z99.81 Dependence on supplemental oxygen; Z88.6 Allergy status to analgesic agent; Z88.7 Allergy status to serum and vaccine; Z91.040 Latex allergy status; Z79.52 Long term (current) use of systemic steroids; Z88.8 Allergy status to other drugs, medicaments and biological substances; Z80.0 Family history of malignant neoplasm of digestive organs; Z80.8 Family history of malignant neoplasm of other organs or systems; Z82.49 Family history of ischemic heart disease and other diseases of the circulatory system; X50.1XXA Overexertion from prolonged static or awkward postures, initial encounter
CPT/HCPCS: 73610; 73630

== ENCOUNTER → 2019-02-17 | Outpatient (CLI) | payer MEDICAID ==
[~2019-02-17] VITALS: Ht 165 cm; Wt 85.0 kg
[~2019-02-17] MED LIST changes: +CATHETER FLUSH 10 ML SYR IV PRN; +REGADENOSON 0.4 MG/5 ML SYR (LEXISCAN) IV ONE
[2019-02-17 06:56] LABS: BASOPHILS % (AUTO) 0 % (0-10); EOSINOPHILS # (AUTO) 0.2 10^3/uL (0.0-0.3); EOSINOPHILS % (AUTO) 2 % (0-10); HEMATOCRIT 40 % (35-52); HEMOGLOBIN 12.7 G/DL (11.5-16.0); LYMPHOCYTES # (AUTO) 3.2 X 10^3 (1.0-4.0); LYMPHOCYTES % (AUTO) 44 % (12-44); MEAN CORPUSCULAR HEMOGLOBIN 27 PG (25-34); MEAN CORPUSCULAR HGB CONC 32 G/DL (32-36); MEAN CORPUSCULAR VOLUME 86 FL (80-99); MEAN PLATELET VOLUME 8.4 FL (7.4-10.4); MONOCYTES # (AUTO) 0.8 X 10^3 (0.0-1.0); MONOCYTES % (AUTO) 11 % (0-12); NEUTROPHILS % (AUTO) 42 % (42-75); PLATELET COUNT 351 10^3/uL (130-400); WHITE BLOOD COUNT 7.2 10^3/uL (4.3-11.0)
[2019-02-17 07:18] LABS: ALANINE AMINOTRANSFERASE 19 U/L (0-55); ALBUMIN 3.6 GM/DL (3.2-4.5); ALKALINE PHOSPHATASE 103 U/L (40-136); BILIRUBIN,TOTAL 0.3 MG/DL (0.1-1.0); BUN/CREATININE RATIO 22; CALCIUM 9.1 MG/DL (8.5-10.1); CARBON DIOXIDE 27 MMOL/L (21-32); CHLORIDE 105 MMOL/L (98-107); CHOLESTEROL 219 MG/DL (< 200); CREATININE SERUM 0.68 MG/DL (0.60-1.30); GFR ESTIMATED > 60; GLUCOSE 79 MG/DL (70-105); HDL CHOLESTEROL 60 MG/DL (40-60); POTASSIUM 3.6 MMOL/L (3.6-5.0); SODIUM 143 MMOL/L (135-145); TOTAL PROTEIN 7.2 GM/DL (6.4-8.2); TRIGLYCERIDES 120 MG/DL (<150); VLDL CHOLESTEROL 24 MG/DL (5-40)
[2019-02-17 09:04] VITALS: BP 139/98
--- NOTE | 2019-02-17 15:47 | STRESS TEST ---
DATE OF SERVICE: 02/17/2019 RESTING AND POST REGADENOSON TECHNETIUM-99M TETROFOSMIN SPECT CT IMAGING ORDERING PHYSICIAN: Dr. Núñez. PRIMARY PHYSICIAN: Dr. Rogers. CLINICAL DIAGNOSIS: Chest discomfort. Baseline images were carried out after injection of 10.94 mCi of technetium-99m Tetrofosmin. This was followed by 0.4 mg regadenoson and 30.4 mCi of technetium-99m Tetrofosmin for stress imaging. The electrocardiogram showed sinus rhythm at baseline. It did not change significantly with the regadenoson infusion. The patient tolerated the procedure well. Review of images at rest and following stress does not indicate significant perfusion defects consistent with myocardial ischemia or infarction. Some degree of breast attenuation is seen both at rest and following regadenoson infusion. Gated images show normal global left ventricular systolic function and normal regional wall motion. Left ventricular ejection fraction is calculated to be 60%. Left ventricular end diastolic volume is 61 mL. CONCLUSIONS: 1. No evidence of any significant myocardial ischemia or infarction on this study. 2. Normal regional wall motion. 3. Normal global left ventricular systolic function with a calculated ejection fraction of 60%. Job ID: [id number] DocumentID: [id number] Dictated Date: 02/17/2019 13:35:59 Station Cleaning Porter Date: 02/17/2019 15:46:23 Dictated By: PAVAN NÚÑEZ MD, MA, FACP, FACC,
== END ==
LOC: CARD 06:41
PROVIDERS: ATTEND Nurse Practitioner Family
DX: I65.29 Occlusion and stenosis of unspecified carotid artery (principal); J44.9 Chronic obstructive pulmonary disease, unspecified; R07.89 Other chest pain; Z79.01 Long term (current) use of anticoagulants
CPT/HCPCS: 36415; 78452; 80053; 80061; 83735; 84443; 85025; 93017

== ENCOUNTER 2019-03-03 09:23 | Inpatient (IN) | payer MEDICAID ==
[~2019-03-03] VITALS: Ht 165.1 cm; Wt 90.6 kg
[~2019-03-03 09:23] MED LIST changes: -CATHETER FLUSH 10 ML SYR IV PRN; -REGADENOSON 0.4 MG/5 ML SYR (LEXISCAN) IV ONE
[2019-03-03] MEDS ORDERED: RT-ALBUTEROL/IPRATROPIUM 3 ML (DUONEB) VIAL ONE (09:43)
[2019-03-03] MEDS ORDERED: RT-ALBUTEROL SULF 2.5 MG/3 ML PRE-MIX VIAL ONE (09:50)
[2019-03-03] MEDS ORDERED: RT-IPRATROPIUM (ATROVENT) 0.5MG/2.5ML AMP IH ONE (09:50)
--- NOTE | 2019-03-03 09:50 | NUR ---
RT IN ROOM WITH PT AT THIS TIME.
--- NOTE | 2019-03-03 10:07 | ED Respiratory ---
General Chief Complaint: Respiratory Problems Stated Complaint: SOA Nursing Triage Note: BROUGHT BACK BY NO DUE TO SOA. PT COMPLAINS OF INCREASED SOA ET STARTED PREDNISONE YESTERDAY. Source: patient Exam Limitations: no limitations History of Present Illness Date Seen by Provider: Mar 03, 2019 Time Seen by Provider: 10:04 Initial Comments This 58-year-old white female presents with an exacerbation of her COPD. The patient saw her primary care physician yesterday and was initiated on prednisone. Despite that the patient employed her nebulizer and inhalers at home throughout the night without improvement. Fortunately the patient denies associated productive cough, fever or chill, chest pain or palpitations, nausea vomiting or diarrhea. The patient's history of loose one of the frequent episodes of COPD exacerbation the past. Allergies and Home Medications Allergies Coded Allergies: aspirin (Verified Allergy, Severe, ANAPHYLAXIS, 08/07/17) ibuprofen (Verified Allergy, Severe, ANAPHYLAXIS, 08/07/17) ketorolac (Verified Allergy, Severe, ANAPHYLAXIS, 08/07/17) tetanus and diphtheria toxoids (Unverified Allergy, Severe, ANAPHYLAXIS, 08/07/17) aloe (Verified Allergy, Mild, RASH, 08/07/17) latex (Verified Allergy, Mild, RASH, 08/07/17) OCCASIONALLY IS IRRITATING SKIN scopolamine (Verified Allergy, Mild, 08/07/17) iodine (Verified Adverse Reaction, Unknown, 08/07/17) Patient states she got dizzy, diaphoretic and saw stars. Uncoded Allergies: ALOE VERA (Allergy, Unknown, 12/23/05) SILK SUTURES (Adverse Reaction, Unknown, BODY REJECTS SUTURES, 10/07/13) Home Medications Albuterol Sulfate 2.5 Mg/3 Ml Vial.neb, 2.5 MG NEB TID, (Reported) MIXES WITH IPRATROPIUM SOLUTION Albuterol Sulfate 8.5 Gm Hfa.aer.ad, 2 PUFF IH Q4H PRN for SHORTNESS OF BREATH, (Reported) Albuterol Sulfate 2.5 Mg/3 Ml Vial.neb, 2.5 MG NEB Q2H PRN for SHORTNESS OF BREATH, (Reported) Alprazolam 1 Mg Tablet, 1 MG PO Q8H PRN for ANXIETY, (Reported) Calcium Carbonate/Vitamin D3 1 Each Tablet, 1 TAB PO BID, (Reported) Cephalexin 500 Mg Tablet, 500 MG PO TID Prescribed by: JASON GERARDO on 09/10/18 2240 Enoxaparin Sodium 40 Mg/0.4 Ml Syringe, 40 MG SQ BID, (Reported) FILLED 08-11-18 (PLEASE UPDATE START DATE WITH PATIENT) Furosemide 80 Mg Tablet, 40 MG PO DAILY, (Reported) TAKES 1/2 (80MG) TABLET Hydrocodone Bit/Acetaminophen 1 Ea Tablet, 1 EACH PO Q4H PRN for PAIN-MODERATE Prescribed by: TEDDY PHILIP on 08/21/18 1330 Hyoscyamine Sulfate 0.125 Mg Tab.rapdis, 0.125 MG SL Q6H PRN for ABDOMINAL PAIN, (Reported) Ipratropium [place] 0.2 Mg/1 Ml Solution, 1 VIAL NEB TID, (Reported) MIXES WITH ALBUTEROL SOLUTION Loratadine 10 Mg Tablet, 10 MG PO DAILY, (Reported) Methocarbamol 750 Mg Tablet, 750 MG PO Q6H PRN for PAIN-MODERATE TO SEVERE Prescribed by: KAMRAN LINDQUIST on 12/13/18 1240 Montelukast Sodium 10 Mg Tablet, 10 MG PO HS, (Reported) Pantoprazole Sodium 40 Mg Tablet.dr, 40 MG PO DAILY, (Reported) Potassium Chloride 10 Meq Tablet.er, 20 MEQ PO BID, (Reported) TAKES 2 (10 MEQ) TABLETS Prednisone 20 Mg Tab, PO UD, (Reported) TAKE 3 (20MG) TABS DAILY X 3 DAYS TAKE 2 (20MG) TABS DAILY X 3 DAYS TAKE 1 (20MG) TAB DAILY X 3 DAYS FILLED 08-18-18 Prednisone 20 Mg Tab, 40 MG PO DAILY Prescribed by: KAMRAN LINDQUIST on 11/22/18 1809 Promethazine HCl 25 Mg Tablet, 25 MG PO Q6H PRN for NAUSEA/VOMITING-2ND LINE, (Reported) Patient Home Medication List Home Medication List Reviewed: Yes Review of Systems Review of Systems Constitutional: No chills, No fever; malaise EENTM: No hearing loss Respiratory: see HPI, cough, short of breath, wheezing Cardiovascular: No chest pain, No palpitations Gastrointestinal: No abdominal pain, No nausea, No vomiting 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: No dysuria, No frequency Musculoskeletal: No back pain Skin: No change in color, No rash Psychiatric/Neurological: No Symptoms Reported Hematologic/Lymphatic: No Symptoms Reported Immunological/Allergic: no symptoms reported Past Gqottuf-Mvycjd-Emcttd Hx Past Med/Social Hx: Reviewed Nursing Past Med/Soc Hx Patient Social History Alcohol Use: Denies Use Recreational Drug Use: No Drug of Choice: + IV COCAINE USE Smoking Status: Former Smoker Type Used: Cigarettes Former Smoker, Quit: Nov 17, 2000 2nd Hand Smoke Exposure: No Recent Foreign Travel: No Contact w/Someone Who Travel: No Recent Infectious Disease Expo: No Recent Hopitalizations: No Immunizations Up To Date Tetanus Booster (TDap): Unknown PED Vaccines UTD: No Date of Pneumonia Vaccine: Jul 08, 2012 Date of Influenza Vaccine: Mar 11, 2012 Seasonal Allergies Seasonal Allergies: Yes Past Medical History Surgeries: Yes Abdominal, Adenoidectomy, Section, Gallbladder, Hysterectomy, Orthopedic, Tonsillectomy, Vascular Surgery Respiratory: Yes (O2 AT HS 2-3L/NC AND PRN--NOCTURNAL HYPOXIA; ) Asthma, Pneumonia, Chronic Bronchitis, Pulmonary Embolism, COPD Currently Using CPAP: No Currently Using BIPAP: No Cardiac: Yes Chronic Edema/Swelling, Deep Vein Thrombosis, High Cholesterol, Hypertension, Peripheral Vascular Neurological: Yes Neuropathy 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 Disorders: No 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, 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 Sexually Transmitted Disease: No HIV/AIDS: No 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: Yes Kidney Infection, Bladder Infection, Kidney Stones Gastrointestinal: Yes (MULTIPLE HERNIA REPAIRS; MULTIPLE EGD'S /COLONOSCOPIES/POLYPECTOMIES) Abdominal Hernia, Gastroesophageal Reflux, Chronic Constipation, Chronic Diarrhea, Hepatitis, Polyps, Hiatal Hernia, Gall Bladder Disease, Irritable Bowel Musculoskeletal: Yes Arthritis Endocrine: Yes ("PRE-DIABETIC" ) HEENT: Yes (NASAL POLYPS) Cataract Loss of Vision: Denies Hearing Impairment: Denies Cancer: No Did You Recieve Any Treatments: No Psychosocial: Yes Anxiety Integumentary: Yes (CHRONIC VENOUS STASIS DERMATITIS AND ULCERS. ) Recent Skin Changes Blood Disorders: Yes (DVT'S/PE'S; PROBABLE PROTEIN C DEFICIENCY) Adverse Reaction/Blood Tranf: No (HAS HAD BLOOD WITH NO PROBLEMS) Family Medical History Alcoholism Alcoholism Arthritis Asthma Cancer Cancer of colon Cancer of mouth Cardiovascular disease Cataract Cataracts Chest pain Colon cancer Completed stroke Diabetes mellitus Family history: Allergy Family history: Arthritis Family history: Asthma Family history: Cardiovascular disease Family history: Coronary thrombosis Family history: Diabetes mellitus Family history: Gastrointestinal disease Family history: Hypertension Family history: Thyroid disorder Headache Hearing loss Heart disease History of - anemia History of - respiratory disease Hypercholesterolemia Hypercholesterolemia Infertile Malignant neoplasm of lung Myocardial infarction Myocardial infarction Psychotic disorder Respiratory disorder Stroke No Family History of: AIDS Abdominal aortic aneurysm Abdominal aortic aneurysm Fernando's disease [place]'s disease Alzheimer's disease Aphasia Aphasia Congenital disease Congenital heart disease Congenital heart disease Congestive heart failure Coronary thrombosis Cystic fibrosis Cystic fibrosis Deafness or hearing loss Dementia Dementia Drug abuse Dysphagia Dysphasia Family history: Alzheimer's disease Family history: Breast disease Family history: Glaucoma Family history: Osteoporosis Fibrocystic disease of breast Gastroenteritis Glaucoma Headache disorder Hereditary disease History of - disorder History of drug abuse Human immunodeficiency virus (HIV) seropositivity Infertility Kidney disease Kidney disease Neoplasm Not obtainable due to adoption Osteoporosis Parkinson's disease Parkinson's disease Prostate cancer Psychosocial problem Seizure disorder Seizure disorder Severe allergy Thyroid disease Tuberculosis Tuberculosis Visual disorder Visual impairment Cancer, COPD, Vascular Disease Physical Exam Vital Signs - First Documented 03/03/19 09:23 Temp 36.8 Pulse 132 Resp 20 B/P (MAP) 149/94 (112) Pulse Ox 85 O2 Delivery Room Air O2 Flow Rate 4.00 Capillary Refill : Less Than 3 Seconds Height: 5'5.00" Weight: 184lbs. 5.0oz. 83.358578eg; 30.00 BMI Method:Stated General Appearance: WD/WN, mild distress Eyes: Bilateral Eye Normal Inspection HEENT: normal ENT inspection Neck: full range of motion Respiratory: decreased breath sounds, wheezing Cardiovascular: normal peripheral pulses, regular rate, rhythm Gastrointestinal: normal bowel sounds, non tender Extremities: normal range of motion, non-tender Neurologic/Psychiatric: no motor/sensory deficits, alert, normal mood/affect Skin: normal color, warm/dry Progress/Results/Core Measures Suspected Sepsis Recent Fever Within 48 Hours: No Infection Criteria Present: None New/Unexplained Altered Menta: No Sepsis Screen: No Definite Risk SIRS Temperature: Pulse: 132 Respiratory Rate: 20 Laboratory Tests 03/03/19 10:00: White Blood Count 6.0 Blood Pressure 149 /94 Mean: 112 Laboratory Tests 03/03/19 10:00: INR Comment 1.6H, Platelet Count 277 Results/Orders Lab Results Laboratory Tests Test 03/03/19 10:00 Range/Units White Blood Count 6.0 4.3-11.0 10^3/uL Red Blood Count 4.44 4.35-5.85 10^6/uL Hemoglobin 12.3 11.5-16.0 G/DL Hematocrit 38 35-52 % Mean Corpuscular Volume 87 80-99 FL Mean Corpuscular Hemoglobin 28 25-34 PG Mean Corpuscular Hemoglobin Concent 32 32-36 G/DL Red Cell Distribution Width 16.0 H 10.0-14.5 % Platelet Count 277 130-400 10^3/uL Mean Platelet Volume 8.9 7.4-10.4 FL Neutrophils (%) (Auto) 49 42-75 % Lymphocytes (%) (Auto) 35 12-44 % Monocytes (%) (Auto) 12 0-12 % Eosinophils (%) (Auto) 4 0-10 % Basophils (%) (Auto) 0 0-10 % Neutrophils # (Auto) 3.0 1.8-7.8 X 10^3 Lymphocytes # (Auto) 2.1 1.0-4.0 X 10^3 Monocytes # (Auto) 0.7 0.0-1.0 X 10^3 Eosinophils # (Auto) 0.3 0.0-0.3 10^3/uL Basophils # (Auto) 0.0 0.0-0.1 10^3/uL Prothrombin Time 19.3 H 12.2-14.7 SEC INR Comment 1.6 H 0.8-1.4 My Orders Orders - FELIBERTO LEE MD Albuterol/Ipra Inhalation Soln (Duoneb I (03/03/19 09:43) Ipratropium 0.02% Neb Solution (Atrovent (03/03/19 09:50) Albuterol Pre-Mix Nebs (Rt) (Proventil (03/03/19 09:50) Protime With Inr (03/03/19 10:03) Cbc With Automated Diff (03/03/19 10:07) Comprehensive Metabolic Panel (03/03/19 10:07) Chest 1 View, Ap/Pa Only (03/03/19 10:07) Ekg Tracing (03/03/19 10:07) Troponin I (03/03/19 10:07) Ns Iv 1000 Ml (Sodium Chloride 0.9%) (03/03/19 10:15) Methylprednisolone Sod Succ (Solu-Medrol (03/03/19 10:15) Ceftriaxone For Iv Use (Rocephin For I (03/03/19 10:15) Medications Given in ED Current Medications Medications Dose Ordered Sig/Nahomi Route Start Time Stop Time Status Last Admin Dose Admin Albuterol Sulfate 2.5 mg STK-MED ONCE .ROUTE 03/03/19 09:50 03/03/19 09:53 DC 03/03/19 09:57 15 MG Albuterol/ Ipratropium 3 ml STK-MED ONCE .ROUTE 03/03/19 09:43 03/03/19 09:45 DC 03/03/19 09:46 3 ML Ceftriaxone Sodium 2000 mg/ Sterile Water 20 ml @ 240 mls/hr ONCE ONCE IV 03/03/19 10:15 03/03/19 10:19 DC 03/03/19 10:30 240 MLS/HR Ipratropium [place] 0.5 mg STK-MED ONCE IH 03/03/19 09:50 03/03/19 09:52 DC 03/03/19 09:56 0.5 MG Methylprednisolone Sodium Succinate 125 mg ONCE ONCE IVP 03/03/19 10:15 03/03/19 10:16 DC 03/03/19 10:24 125 MG Vital Signs/I&O 03/03/19 03/03/19 03/03/19 03/03/19 09:23 09:23 09:48 09:57 Temp 36.8 Pulse 132 Resp 20 B/P (MAP) 149/94 (112) Pulse Ox 85 93 94 O2 Delivery Room Air Nasal Cannula Nasal Cannula Nasal Cannula O2 Flow Rate 4.00 5.00 5.00 Capillary Refill : Less Than 3 Seconds Blood Pressure Mean: 112 Progress Note : Time: 11:04 Progress Note Patient's chest x-ray was unremarkable. Patient's white count was normal. The patient was improved following breathing treatments. The patient received 125 mg of Solu-Medrol IV and 2 g Rocephin. After telephone consultation with the patient was admitted. Departure Communication (Admissions) Time/Spoke to Admitting Phy: 11:07 Dr. Wolf Impression Primary Impression: COPD exacerbation Disposition: ADMITTED INPATIENT Condition: Improved Admissions Decision to Admit Reason: Admit from ER (General) Decision to Admit/Date: Mar 03, 2019 Time/Decision to Admit Time: 11:07 Departure-Patient Inst. Referrals: LEAH WOLF MD (PCP/Family) Primary Care Physician FELIBERTO LEE MD Mar 03, 2019 10:07
[2019-03-03] MEDS ORDERED: cefTRIAXone FOR IV USE 2,000 MG in WATER (STERILE) FOR INJECTION 20 ML IV ONE (10:15)
[2019-03-03] MEDS ORDERED: NS IV 1000 ML 1,000 ML IV SCH (10:15)
[2019-03-03] MEDS ORDERED: methylPREDNISolone 125 MG (Solu-MEDROL) VIAL IVP ONE (10:15)
[2019-03-03 10:38] LABS: BASOPHILS % (AUTO) 0 % (0-10); EOSINOPHILS # (AUTO) 0.3 10^3/uL (0.0-0.3); EOSINOPHILS % (AUTO) 4 % (0-10); HEMATOCRIT 38 % (35-52); HEMOGLOBIN 12.3 G/DL (11.5-16.0); LYMPHOCYTES # (AUTO) 2.1 X 10^3 (1.0-4.0); LYMPHOCYTES % (AUTO) 35 % (12-44); MEAN CORPUSCULAR HEMOGLOBIN 28 PG (25-34); MEAN CORPUSCULAR HGB CONC 32 G/DL (32-36); MEAN CORPUSCULAR VOLUME 87 FL (80-99); MEAN PLATELET VOLUME 8.9 FL (7.4-10.4); MONOCYTES # (AUTO) 0.7 X 10^3 (0.0-1.0); MONOCYTES % (AUTO) 12 % (0-12); NEUTROPHILS % (AUTO) 49 % (42-75); PLATELET COUNT 277 10^3/uL (130-400)
[2019-03-03 10:55] LABS: INR 1.6 (0.8-1.4); PROTHROMBIN TIME PATIENT 19.3 SEC (12.2-14.7)
[2019-03-03 11:04] LABS: ALANINE AMINOTRANSFERASE 22 U/L (0-55); ALBUMIN 3.7 GM/DL (3.2-4.5); ALKALINE PHOSPHATASE 87 U/L (40-136); BILIRUBIN,TOTAL 0.2 MG/DL (0.1-1.0); BUN/CREATININE RATIO 16; CARBON DIOXIDE 23 MMOL/L (21-32); CHLORIDE 107 MMOL/L (98-107); CREATININE SERUM 0.68 MG/DL (0.60-1.30); GFR ESTIMATED > 60; GLUCOSE 109 MG/DL (70-105); POTASSIUM 3.4 MMOL/L (3.6-5.0); SODIUM 144 MMOL/L (135-145); TOTAL PROTEIN 7.5 GM/DL (6.4-8.2)
--- NOTE | 2019-03-03 11:27 | Diagnostic Imaging Report ---
PATIENT HISTORY: Shortness of air. TECHNIQUE: Frontal view of the chest. COMPARISON: 01/15/2019 FINDINGS: Lung volumes are large. There is eventration of the diaphragm. No new consolidation is seen. There is scarring in the lung bases. The cardiac silhouette is stable in size. There is aortic atherosclerosis. IMPRESSION: Findings of chronic obstructive disease with no acute pulmonary abnormality seen. Dictated by: Dictated on workstation # [id number]
--- NOTE | 2019-03-03 11:45 | NUR ---
report taken from [facility] ER at this time. This RN will assume care of this patient when she arrives to this floor.
[2019-03-03 12:00] VITALS: BP 134/80
[2019-03-03] MEDS ORDERED: RT-ALBUTEROL/IPRATROPIUM 3 ML (DUONEB) VIAL IH PRN (12:15)
--- NOTE | 2019-03-03 13:20 | History & Physicial ---
History of Present Illness History of Present Illness Reason for visit/HPI 58-year-old female presents to the emergency department after calling office today with reports of shortness of breath. She has had low-grade fever as well. Her cough became more worse over the past 24 hours. She was seen yesterday in the office and given Depo-Medrol 80 mg. Date of Admission Mar 03, 2019 at 11:15 Date Seen by a Provider: Mar 03, 2019 Time Seen by a Provider: 17:00 I consulted on this patient on 03/03/19 13:17 Attending Physician Leah Wolf MD Admitting Physician Leah Wolf MD Consult Allergies and Home Medications Allergies Coded Allergies: aspirin (Verified Allergy, Severe, ANAPHYLAXIS, 03/03/19) ibuprofen (Verified Allergy, Severe, ANAPHYLAXIS, 03/03/19) ketorolac (Verified Allergy, Severe, ANAPHYLAXIS, 03/03/19) tetanus and diphtheria toxoids (Unverified Allergy, Severe, ANAPHYLAXIS, 03/03/19) aloe (Verified Allergy, Mild, RASH, 03/03/19) latex (Verified Allergy, Mild, RASH, 03/03/19) OCCASIONALLY IS IRRITATING SKIN scopolamine (Verified Allergy, Mild, 03/03/19) iodine (Verified Adverse Reaction, Unknown, 03/03/19) Patient states she got dizzy, diaphoretic and saw stars. Uncoded Allergies: ALOE VERA (Allergy, Unknown, 12/23/05) SILK SUTURES (Adverse Reaction, Unknown, BODY REJECTS SUTURES, 10/07/13) Home Medications Albuterol Sulfate 2.5 Mg/3 Ml Vial.neb, 2.5 MG NEB TID, (Reported) MIXES WITH IPRATROPIUM SOLUTION Albuterol Sulfate 8.5 Gm Hfa.aer.ad, 2 PUFF IH Q4H PRN for SHORTNESS OF BREATH, (Reported) Albuterol Sulfate 2.5 Mg/3 Ml Vial.neb, 2.5 MG NEB Q2H PRN for SHORTNESS OF BREATH, (Reported) Alprazolam 1 Mg Tablet, 1 MG PO Q8H PRN for ANXIETY, (Reported) Calcium Carbonate/Vitamin D3 1 Each Tablet, 1 TAB PO BID, (Reported) Fluticasone Propionate 1 Ea Aero, 2 PUFF INH BID, (Reported) Furosemide 40 Mg Tablet, 40 MG PO DAILY, (Reported) Hydrocodone/Acetaminophen 1 Each Tablet, 1 TAB PO Q6H PRN for PAIN-MODERATE, (Reported) Hyoscyamine Sulfate 0.125 Mg Tab.rapdis, 0.125 MG SL Q6H PRN for ABDOMINAL PAIN, (Reported) Ipratropium [place] 0.2 Mg/1 Ml Solution, 1 VIAL NEB TID, (Reported) MIXES WITH ALBUTEROL SOLUTION Loratadine 10 Mg Tablet, 10 MG PO DAILY, (Reported) Montelukast Sodium 10 Mg Tablet, 10 MG PO HS, (Reported) Pantoprazole Sodium 40 Mg Tablet.dr, 40 MG PO DAILY, (Reported) Potassium Chloride 10 Meq Tablet.er, 20 MEQ PO BID, (Reported) TAKES 2 (10 MEQ) TABLETS Prednisone 20 Mg Tab, PO UD, (Reported) TAKE 3 (20MG) TABS DAILY X 3 DAYS TAKE 2 (20MG) TABS DAILY X 3 DAYS TAKE 1 (20MG) TAB DAILY X 3 DAYS FILLED 03-02-19 Promethazine HCl 25 Mg Tablet, 25 MG PO Q6H PRN for NAUSEA/VOMITING-2ND LINE, (Reported) Warfarin Sodium 4 Mg Tablet, 4 MG PO 1800, (Reported) Patient Home Medication List Home Medication List Reviewed: Yes Past Vunhqwg-Hfwjzk-Jvisjb Hx Patient Social History Number of Children: 2 Employed/Student: unemployed Alcohol Use: Denies Use Recreational Drug Use: No Drug of Choice: + IV COCAINE USE Smoking Status: Former Smoker Former Smoker, Quit: Nov 17, 2000 Type Used: Cigarettes 2nd Hand Smoke Exposure: No Recent Foreign Travel: No Contact w/other who traveled: No Recent Hopitalizations: No Recent Infectious Disease Expo: No Immunizations Up To Date Tetanus Booster (TDap): Unknown Pediatric: No Date of Pneumonia Vaccine: Jul 08, 2012 Date of Influenza Vaccine: Mar 11, 2012 Seasonal Allergies Seasonal Allergies: Yes Surgeries Yes Abdominal, Adenoidectomy, Section, Gallbladder, Hysterectomy, Orthopedic, Tonsillectomy, Vascular Surgery Respiratory Yes (O2 AT HS 2-3L/NC AND PRN--NOCTURNAL HYPOXIA; ) Currently Using CPAP: No Currently Using BIPAP: No Cardiovascular Yes Chronic Edema/Swelling, Deep Vein Thrombosis, High Cholesterol, Hypertension, Peripheral Vascular Neurological Yes Neuropathy 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 System Hx 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 Disorders: No Sexually Transmitted Disease: No HIV/AIDS: No 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, 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 Yes Kidney Infection, Bladder Infection, Kidney Stones Gastrointestinal Yes (MULTIPLE HERNIA REPAIRS; MULTIPLE EGD'S /COLONOSCOPIES/POLYPECTOMIES) Abdominal Hernia, Gastroesophageal Reflux, Chronic Constipation, Chronic Diarrhea, Hepatitis, Polyps, Hiatal Hernia, Gall Bladder Disease, Irritable Bowel Musculoskeletal Yes Arthritis Endocrine History of Endocrine Disorders: Yes ("PRE-DIABETIC" ) HEENT History of HEENT Disorders: Yes (NASAL POLYPS) HEENT Disorders: Cataract Loss of Vision: Denies Hearing Impairment: Denies Cancer No Did You Recieve Any Treatments: No Psychosocial History of Psychiatric Problem: Yes Behavioral Health Disorders: Anxiety Integumentary History of Skin or Integumenta: Yes (CHRONIC VENOUS STASIS DERMATITIS AND ULCERS. ) Skin/Integumentary Disorders: Recent Skin Changes Blood Transfusions History of Blood Disorders: Yes (DVT'S/PE'S; PROBABLE PROTEIN C DEFICIENCY) Adverse Reaction to a Blood Tr: No (HAS HAD BLOOD WITH NO PROBLEMS) Family Medical History Significant Family History: Cancer, COPD, Vascular Disease Family Hx: Alcoholism Alcoholism Arthritis Asthma Cancer Cancer of colon Cancer of mouth Cardiovascular disease Cataract Cataracts Chest pain Colon cancer Completed stroke Diabetes mellitus Family history: Allergy Family history: Arthritis Family history: Asthma Family history: Cardiovascular disease Family history: Coronary thrombosis Family history: Diabetes mellitus Family history: Gastrointestinal disease Family history: Hypertension Family history: Thyroid disorder Headache Hearing loss Heart disease History of - anemia History of - respiratory disease Hypercholesterolemia Hypercholesterolemia Infertile Malignant neoplasm of lung Myocardial infarction Myocardial infarction Psychotic disorder Respiratory disorder Stroke No Family History of: AIDS Abdominal aortic aneurysm Abdominal aortic aneurysm Fernando's disease [place]'s disease Alzheimer's disease Aphasia Aphasia Congenital disease Congenital heart disease Congenital heart disease Congestive heart failure Coronary thrombosis Cystic fibrosis Cystic fibrosis Deafness or hearing loss Dementia Dementia Drug abuse Dysphagia Dysphasia Family history: Alzheimer's disease Family history: Breast disease Family history: Glaucoma Family history: Osteoporosis Fibrocystic disease of breast Gastroenteritis Glaucoma Headache disorder Hereditary disease History of - disorder History of drug abuse Human immunodeficiency virus (HIV) seropositivity Infertility Kidney disease Kidney disease Neoplasm Not obtainable due to adoption Osteoporosis Parkinson's disease Parkinson's disease Prostate cancer Psychosocial problem Seizure disorder Seizure disorder Severe allergy Thyroid disease Tuberculosis Tuberculosis Visual disorder Visual impairment Review of Systems Constitutional: see HPI Physical Exam Vital Signs Vital Signs - First Documented 03/03/19 09:23 Temp 36.8 Pulse 132 Resp 20 B/P (MAP) 149/94 (112) Pulse Ox 85 O2 Delivery Room Air O2 Flow Rate 4.00 Capillary Refill : Less Than 3 Seconds Height, Weight, BMI Height: 5'5.00" Weight: 184lbs. 5.0oz. 83.417619tv; 30.00 BMI Method:Stated General Appearance: Mild Distress Eyes: Bilateral Eye Normal Inspection HEENT: Moist Mucous Membranes Neck: Supple Respiratory: Accessory Muscle Use, Respiratory Distress (mild), Wheezing Cardiovascular: Regular Rate, Rhythm Gastrointestinal: Soft Rectal: Deferred Back: Normal Inspection Extremity: Pedal Edema Neurologic/Psychiatric: Alert, Oriented x3 Skin: Normal Color Assessment/Plan Assessment and Plan 1. COPD exacerbation -Solumedrol 125 q6hr -RT for breathing treatments 2 Bronchitis -initiation of ceftriaxone Admission Diagnosis 1. COPD exacerbation 2 Bronchitis Admission Status: Inpatient Order (span 2 midnights) Reason for Inpatient Admission: further pulmonary toilet She will go ahead and have respirerapy for breathing treatment Initiation of Solu-Medrol as well as IV ceftriaxone LEAH WOLF MD Mar 03, 2019 13:20
[2019-03-03] MEDS: NS IV 1000 ML 1,000 ML IV SCH (13:22)
[2019-03-03] MEDS ORDERED: HYDR-3820 PO (13:40)
[2019-03-03] MEDS ORDERED: WARF4TAB9 PO (13:40)
[2019-03-03] MEDS ORDERED: FURO40TA4 PO (13:40)
[2019-03-03] MEDS ORDERED: FLT22013 INH (13:40)
--- NOTE | 2019-03-03 13:45 | NUR ---
SPOKE WITH THE PATIENT ABOUT HER MEDICATIONS. WE WENT OVER THE EXT MED HX AND SHE VERIFIED HOW SHE TAKES THEM. SHE ALSO TAKES CALCIUM +D OTC.
--- NOTE | 2019-03-03 13:48 | NUR ---
DR. WOLF NOTIFIED AT THIS TIME THAT THIS PATIENT'S MEDICATION RECONCILIATION HAS BEEN COMPLETED
[2019-03-03] MEDS ORDERED: HYDROcodone/APAP 10 MG/325 MG (LORTAB) TAB PO PRN (14:15)
[2019-03-03] MEDS ORDERED: PROMETHAZINE 25 MG (PHENERGAN) TAB PO PRN (14:15)
[2019-03-03] MEDS ORDERED: ALPRAZolam 1 MG (XANAX) TAB PO PRN (14:15)
[2019-03-03] MEDS ORDERED: RT-ALBUTEROL SULF 2.5 MG/3 ML PRE-MIX VIAL IH PRN (14:15)
[2019-03-03] MEDS: guaiFENesin/CODEINE (ROBITUSSIN AC) 10ML UDC PO PRN ×2 (14:17→19:45)
[2019-03-03 14:24] VITALS: BP 134/80
[2019-03-03] MEDS: RT-ALBUTEROL/IPRATROPIUM 3 ML (DUONEB) VIAL IH SCH ×3 (14:45→22:12)
--- NOTE | 2019-03-03 15:53 | NUR ---
PATIENT DOES NOT NEED LOVENOX SHE IS ON COUMADIN DAILY.
[2019-03-03 16:00] VITALS: BP 105/64
[2019-03-03] MEDS: methylPREDNISolone 125 MG (Solu-MEDROL) VIAL IV SCH ×2 (16:42→23:24)
[2019-03-03] MEDS: KCL 10 MEQ TAB (MICRO K) PO SCH (16:42)
[2019-03-03] MEDS ORDERED: WARFARIN SODIUM 4 MG PO SCH (18:00)
[2019-03-03] MEDS ORDERED: warFARin 2 MG (COUMADIN) TAB PO SCH (18:00)
[2019-03-03] MEDS: RT-FLUTICASONE 220 MCG (FLOVENT) PER PUFF INH SCH (18:29)
[2019-03-03] MEDS: MONTELUKAST 10 MG (SINGULAIR) TAB PO SCH (19:45)
[2019-03-03 19:51] VITALS: BP 112/69
[2019-03-03] MEDS ORDERED: FLUTICASONE PROPIONATE INH SCH (21:00)
[2019-03-04] VITALS: BP 110/73
[2019-03-04] MEDS: RT-ALBUTEROL/IPRATROPIUM 3 ML (DUONEB) VIAL IH SCH ×6 (02:12→22:38)
[2019-03-04] MEDS: NS IV 1000 ML 1,000 ML IV SCH (03:07)
[2019-03-04] MEDS: guaiFENesin/CODEINE (ROBITUSSIN AC) 10ML UDC PO PRN ×4 (03:07→18:09)
[2019-03-04 03:10] VITALS: BP 139/80
[2019-03-04] MEDS: methylPREDNISolone 125 MG (Solu-MEDROL) VIAL IV SCH ×3 (05:46→22:25)
[2019-03-04] MEDS: PANTOPRAZOLE 40 MG (PROTONIX) TAB PO SCH (05:47)
[2019-03-04] MEDS: KCL 10 MEQ TAB (MICRO K) PO SCH ×2 (05:47→18:09)
[2019-03-04 06:43] LABS: BASOPHILS % (AUTO) 0 % (0-10); EOSINOPHILS % (AUTO) 0 % (0-10); HEMATOCRIT 38 % (35-52); HEMOGLOBIN 12.1 G/DL (11.5-16.0); LYMPHOCYTES # (AUTO) 0.9 X 10^3 (1.0-4.0); LYMPHOCYTES % (AUTO) 14 % (12-44); MEAN CORPUSCULAR HEMOGLOBIN 28 PG (25-34); MEAN CORPUSCULAR HGB CONC 32 G/DL (32-36); MEAN CORPUSCULAR VOLUME 87 FL (80-99); MEAN PLATELET VOLUME 9.1 FL (7.4-10.4); MONOCYTES # (AUTO) 0.3 X 10^3 (0.0-1.0); MONOCYTES % (AUTO) 4 % (0-12); NEUTROPHILS # (AUTO) 5.8 X 10^3 (1.8-7.8); NEUTROPHILS % (AUTO) 83 % (42-75); PLATELET COUNT 251 10^3/uL (130-400)
[2019-03-04 06:53] LABS: ALANINE AMINOTRANSFERASE 20 U/L (0-55); ALBUMIN 3.9 GM/DL (3.2-4.5); ALKALINE PHOSPHATASE 92 U/L (40-136); BILIRUBIN,TOTAL 0.2 MG/DL (0.1-1.0); BUN/CREATININE RATIO 18; CARBON DIOXIDE 21 MMOL/L (21-32); CHLORIDE 107 MMOL/L (98-107); CREATININE SERUM 0.62 MG/DL (0.60-1.30); GFR ESTIMATED > 60; GLUCOSE 136 MG/DL (70-105); POTASSIUM 3.9 MMOL/L (3.6-5.0); SODIUM 139 MMOL/L (135-145); TOTAL PROTEIN 7.4 GM/DL (6.4-8.2)
[2019-03-04 06:58] LABS: INR 1.7 (0.8-1.4); PROTHROMBIN TIME PATIENT 20.9 SEC (12.2-14.7)
--- NOTE | 2019-03-04 07:06 | Progress Note ---
Subjective Date Seen by a Provider: Mar 04, 2019 Time Seen by a Provider: 07:15 Objective Exam Vital Signs Date Time Temp Pulse Resp B/P (MAP) Pulse Ox O2 Delivery O2 Flow Rate FiO2 03/04/19 03:10 36.7 108 20 139/80 (99) 95 Nasal Cannula 3.00 03/04/19 02:12 94 Nasal Cannula 3.50 03/04/19 00:00 36.4 95 20 110/73 (85) 94 Nasal Cannula 3.00 03/03/19 22:12 96 Nasal Cannula 3.50 03/03/19 19:51 36.8 104 20 112/69 (83) 95 Nasal Cannula 3.00 03/03/19 19:45 95 Nasal Cannula 3.00 03/03/19 18:29 94 Nasal Cannula 3.50 03/03/19 18:29 94 Nasal Cannula 3.50 03/03/19 16:00 36.7 106 18 105/64 (78) 95 Nasal Cannula 3.00 03/03/19 14:24 36.6 113 22 134/80 98 Nasal Cannula 2.00 03/03/19 14:08 98 Nasal Cannula 2.00 03/03/19 12:00 36.6 113 22 134/80 (98) 98 Nasal Cannula 2.00 03/03/19 11:49 117 18 123/83 94 Nasal Cannula 2.00 03/03/19 09:57 94 Nasal Cannula 5.00 03/03/19 09:48 93 Nasal Cannula 5.00 03/03/19 09:23 Nasal Cannula 4.00 03/03/19 09:23 36.8 132 20 149/94 (112) 85 Room Air I & O 03/04/19 07:00 Intake Total 3200 ml Output Total 2165 ml Balance 1035 ml Capillary Refill : Less Than 3 Seconds General Appearance: No Apparent Distress Results Lab Laboratory Tests 03/03/19 10:00: White Blood Count 6.0, Red Blood Count 4.44, Hemoglobin 12.3, Hematocrit 38, Mean Corpuscular Volume 87, Mean Corpuscular Hemoglobin 28, Mean Corpuscular Hemoglobin Concent 32, Red Cell Distribution Width 16.0H, Platelet Count 277, Mean Platelet Volume 8.9, Neutrophils (%) (Auto) 49, Lymphocytes (%) (Auto) 35, Monocytes (%) (Auto) 12, Eosinophils (%) (Auto) 4, Basophils (%) (Auto) 0, Neutrophils # (Auto) 3.0, Lymphocytes # (Auto) 2.1, Monocytes # (Auto) 0.7, Eosinophils # (Auto) 0.3, Basophils # (Auto) 0.0, Prothrombin Time 19.3H, INR Comment 1.6H, Sodium Level 144, Potassium Level 3.4L, Chloride Level 107, Carbon Dioxide Level 23, Anion Gap 14, Blood Urea Nitrogen 11, Creatinine 0.68, Estimat Glomerular Filtration Rate > 60, BUN/Creatinine Ratio 16, Glucose Level 109H, Calcium Level 9.0, Corrected Calcium 9.2, Total Bilirubin 0.2, Aspartate Amino Transf (AST/SGOT) 17, Alanine Aminotransferase (ALT/SGPT) 22, Alkaline Phosphatase 87, Troponin I < 0.028, Total Protein 7.5, Albumin 3.7 03/04/19 06:10: White Blood Count 7.0, Red Blood Count 4.35, Hemoglobin 12.1, Hematocrit 38, Mean Corpuscular Volume 87, Mean Corpuscular Hemoglobin 28, Mean Corpuscular Hemoglobin Concent 32, Red Cell Distribution Width 16.0H, Platelet Count 251, Mean Platelet Volume 9.1, Neutrophils (%) (Auto) 83H, Lymphocytes (%) (Auto) 14, Monocytes (%) (Auto) 4, Eosinophils (%) (Auto) 0, Basophils (%) (Auto) 0, Neutro phils # (Auto) 5.8, Lymphocytes # (Auto) 0.9L, Monocytes # (Auto) 0.3, Eosinophils # (Auto) 0.0, Basophils # (Auto) 0.0, Prothrombin Time 20.9H, INR Comment 1.7H, Sodium Level 139, Potassium Level 3.9, Chloride Level 107, Carbon Dioxide Level 21, Anion Gap 11, Blood Urea Nitrogen 11, Creatinine 0.62, Estimat Glomerular Filtration Rate > 60, BUN/Creatinine Ratio 18, Glucose Level 136H, Calcium Level 9.0, Corrected Calcium 9.1, Total Bilirubin 0.2, Aspartate Amino Transf (AST/SGOT) 13, Alanine Aminotransferase (ALT/SGPT) 20, Alkaline Phosphatase 92, Total Protein 7.4, Albumin 3.9 Assessment/Plan Assessment/Plan Assess & Plan/Chief Complaint 1. COPD exacerbation -Solumedrol 125 q6hr -RT for breathing treatments 03/04 - 2 Bronchitis -initiation of ceftriaxone 03/04 -day #2 ceftriaxone Clinical Quality Measures Admission Status Admission Dx 1. COPD exacerbation 2 Bronchitis DVT/VTE Risk/Contraindication: Risk Factor Score Per Nursin RFS Level Per Nursing on Admit: 4+=Very High LEAH WOLF MD Mar 04, 2019 07:06
[2019-03-04] MEDS: RT-FLUTICASONE 220 MCG (FLOVENT) PER PUFF INH SCH ×2 (07:46→18:52)
[2019-03-04 08:00] VITALS: BP 136/77
--- NOTE | 2019-03-04 08:35 | Diagnostic Imaging Report ---
INDICATION: COPD and hypoxia. TIME OF EXAMINATION: 2:31 AM. COMPARISON: Correlation is made with the prior chest from one day earlier. FINDINGS: The heart size is stable. The lungs appear to be hyperinflated, consistent with COPD. No infiltrate or failure is detected. No effusion or pneumothorax is seen. IMPRESSION: COPD. No acute abnormality is detected. Dictated by: Dictated on workstation # [id number]
[2019-03-04] MEDS: FUROSEMIDE 40 MG (LASIX) TAB PO SCH (09:35)
[2019-03-04] MEDS: LORATADINE (CLARITIN) 10 MG TAB PO SCH (09:35)
[2019-03-04] MEDS: cefTRIAXone 1,000 MG/SWFI 10 ML IV PUSH IV SCH ×2 (10:35)
[2019-03-04 12:00] VITALS: BP 136/85
--- NOTE | 2019-03-04 15:51 | NUR ---
Pastoral care visit.
[2019-03-04 16:00] VITALS: BP 142/85
[2019-03-04] MEDS ORDERED: warFARin 5 MG (COUMADIN) TAB PO NR (18:00)
[2019-03-04] MEDS: MONTELUKAST 10 MG (SINGULAIR) TAB PO SCH (20:47)
[2019-03-05 00:21] VITALS: BP 136/85
[2019-03-05] MEDS: RT-ALBUTEROL/IPRATROPIUM 3 ML (DUONEB) VIAL IH SCH ×2 (03:25→06:51)
[2019-03-05] MEDS: PANTOPRAZOLE 40 MG (PROTONIX) TAB PO SCH (06:01)
[2019-03-05] MEDS: KCL 10 MEQ TAB (MICRO K) PO SCH (06:01)
[2019-03-05] MEDS: methylPREDNISolone 125 MG (Solu-MEDROL) VIAL IV SCH (06:01)
[2019-03-05] MEDS: RT-FLUTICASONE 220 MCG (FLOVENT) PER PUFF INH SCH (06:51)
[2019-03-05 07:55] VITALS: BP 117/68
--- NOTE | 2019-03-05 08:21 | Discharge Summary ---
Diagnosis/Chief Complaint Date of Admission Mar 03, 2019 at 11:15 Date of Discharge Mar 05, 2019 Discharge Date: Mar 05, 2019 Admission Diagnosis Admission Diagnosis 1 Discharge Diagnosis 1. COPD exacerbation 2 Bronchitis Reason Hospital Visit 58-year-old female presents to the emergency department after calling office today with reports of shortness of breath. She has had low-grade fever as well. Her cough became more worse over the past 24 hours. She was seen yesterday in the office and given Depo-Medrol 80 mg. Discharge Summary Hospital Course Was the Problem List Reviewed?: Yes Hospital Course See progress notes 1. COPD exacerbation -Solumedrol 125 q6hr -RT for breathing treatments 03/04 - 2 Bronchitis -initiation of ceftriaxone 03/04 -day #2 ceftriaxone Labs Laboratory Tests 03/03/19 10:00: Red Cell Distribution Width 16.0H, Prothrombin Time 19.3H, INR Comment 1.6H, Potassium Level 3.4L, Glucose Level 109H 03/04/19 06:10: Red Cell Distribution Width 16.0H, Prothrombin Time 20.9H, INR Comment 1.7H, Glu cose Level 136H, Neutrophils (%) (Auto) 83H, Lymphocytes # (Auto) 0.9L Procedures None. Discharge Physical Examination Allergies: Coded Allergies: aspirin (Verified Allergy, Severe, ANAPHYLAXIS, 03/03/19) ibuprofen (Verified Allergy, Severe, ANAPHYLAXIS, 03/03/19) ketorolac (Verified Allergy, Severe, ANAPHYLAXIS, 03/03/19) tetanus and diphtheria toxoids (Unverified Allergy, Severe, ANAPHYLAXIS, 03/03/19) aloe (Verified Allergy, Mild, RASH, 03/03/19) latex (Verified Allergy, Mild, RASH, 03/03/19) OCCASIONALLY IS IRRITATING SKIN scopolamine (Verified Allergy, Mild, 03/03/19) iodine (Verified Adverse Reaction, Unknown, 03/03/19) Patient states she got dizzy, diaphoretic and saw stars. Uncoded Allergies: ALOE VERA (Allergy, Unknown, 12/23/05) SILK SUTURES (Adverse Reaction, Unknown, BODY REJECTS SUTURES, 10/07/13) Vitals & I&Os Vital Signs Date Time Temp Pulse Resp B/P (MAP) Pulse Ox O2 Delivery O2 Flow Rate FiO2 03/05/19 07:55 36.8 88 21 117/68 (84) 96 Room Air 03/05/19 06:59 3.00 General Appearance: No Acute Distress Respiratory: Clear to Auscultation Cardiovascular: Regular Rate Abdominal: Soft Discharge Home Medications Reviewed and agree with Discharge Medication list on patient's Discharge Instruction sheet Instructions to Patient/Family Please see electronic discharge instructions given to patient. Clinical Quality Measures DVT/VTE Risk/Contraindication: Risk Factor Score Per Nursin RFS Level Per Nursing on Admit: 4+=Very High LEAH WOLF MD Mar 05, 2019 08:21
[2019-03-05] MEDS: FUROSEMIDE 40 MG (LASIX) TAB PO SCH (08:24)
[2019-03-05] MEDS: LORATADINE (CLARITIN) 10 MG TAB PO SCH (08:24)
[2019-03-05] MEDS ORDERED: CEFD300C3 PO (08:25)
[2019-03-05] MEDS: cefTRIAXone 1,000 MG/SWFI 10 ML IV PUSH IV SCH ×2 (09:57)
== END 2019-03-05 10:45 | disposition home or self-care (01) | DRG 192 ==
LOC: EDUNIT# 09:23 → ER 09:24 → 4TH 11:15
PROVIDERS: ADMIT Family Medicine; ATTEND Family Medicine
DX: J44.1 Chronic obstructive pulmonary disease with (acute) exacerbation (principal); J44.0 Chronic obstructive pulmonary disease with (acute) lower respiratory infection; J20.9 Acute bronchitis, unspecified; E78.00 Pure hypercholesterolemia, unspecified; I10 Essential (primary) hypertension; I73.9 Peripheral vascular disease, unspecified; G62.9 Polyneuropathy, unspecified; R09.02 Hypoxemia; K21.9 Gastro-esophageal reflux disease without esophagitis; K59.09 Other constipation; K44.9 Diaphragmatic hernia without obstruction or gangrene; K58.0 Irritable bowel syndrome with diarrhea; F41.9 Anxiety disorder, unspecified; R73.03 Prediabetes; I87.2 Venous insufficiency (chronic) (peripheral); Z87.442 Personal history of urinary calculi; Z88.7 Allergy status to serum and vaccine; Z91.040 Latex allergy status; Z86.010 Personal history of colon polyps; Z87.891 Personal history of nicotine dependence; Z86.711 Personal history of pulmonary embolism; Z86.718 Personal history of other venous thrombosis and embolism; Z87.01 Personal history of pneumonia (recurrent)
CPT/HCPCS: 36415; 71045; 80053; 84484; 85025; 85610; 93005; 94640; 94760

== ENCOUNTER 2019-05-14 11:42 | Outpatient (CLI) | payer MEDICAID ==
[~2019-05-14] VITALS: Ht 165.1 cm; Wt 89.0 kg
[~2019-05-14 11:42] MED LIST changes: +FLT22013 INH; +FURO40TA4 PO
[2019-05-14] MEDS ORDERED: LORA10TA76 PO (12:02)
[2019-05-14] MEDS ORDERED: POTA-51 PO (12:02)
[2019-05-14] MEDS ORDERED: WARF-48 PO (12:02)
[2019-05-14 12:07] VITALS: BP 151/91
== END 2019-05-14 12:15 | disposition home or self-care (01) ==
LOC: PREOP 11:42
PROVIDERS: ATTEND Orthopaedic Surgery
DX: Z01.818 Encounter for other preprocedural examination (principal)
CPT/HCPCS: 87081

== ENCOUNTER 2019-05-20 07:00 | Day surgery (SDC) | payer MEDICAID ==
--- NOTE | 2019-05-07 14:22 | HISTORY AND PHYSICAL ---
DATE OF SERVICE: DATE OF ADMISSION: 05/20/2019. Date of surgery will be 05/20/2019 for right knee arthroscopy. HISTORY OF PRESENT ILLNESS: The patient is a 58-year-old female with complaints of right knee pain, catching, locking and swelling. She reports that she had a fall which led to a medial knee pain. She underwent left knee arthroscopy in the past with good results. She reports activity limitations because of the knee. Due to functional impairment and failure to improve with conservative measures, the patient elected to proceed with surgical intervention. REVIEW OF SYSTEMS: No chest pain, no shortness of breath, no dysuria. PAST MEDICAL HISTORY: Asthma, hypertension, COPD, DVT, sleep apnea, hypercholesterolemia. PAST SURGICAL HISTORY: Tubal ligation, tonsillectomy, , shoulder arthroscopy, knee scope, D and C, elbow scope, EGD, filter placement, kidney stone, nasal polyp, herniorrhaphy, bilateral lower extremity ablation. FAMILY HISTORY: Significant for hypercholesterolemia, hypertension and cancer. PRIMARY CARE PROVIDER: Dr. Rogers MEDICATIONS: Anaspaz, , TriCor, Flovent, Nasacort, Pulmicort, Jantoven, hydrocodone, alprazolam, calcium, Levsin, promethazine, ProAir inhaler, ipratropium bromide, albuterol, furosemide, Singulair. ALLERGIES: IODINE, TORADOL, KETOROLAC, TETANUS, SILK SUTURES, ASPIRIN, IBUPROFEN, SCOPOLAMINE AND LATEX. SOCIAL HISTORY: The patient is a former tobacco user. Denies alcohol use. PHYSICAL EXAMINATION: GENERAL: The patient is well developed, well-nourished, in no acute distress. HEENT: Normocephalic, atraumatic. Pupils are equal, round, reactive to light. Oropharynx is clear. NECK: Supple, no lymphadenopathy. LUNGS: Clear to auscultation bilaterally. HEART: Regular rate and rhythm. ABDOMEN: Soft, nontender, nondistended. EXTREMITIES: Examination of the right knee demonstrates tenderness over the medial joint line. She has pain medially with Chary. She has mild effusion. No pain with internal and external rotation of the hip. Negative straight leg raise. 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 PLAN: Right knee arthroscopy, partial medial meniscectomy and chondroplasty. Risks, benefits, options, ramifications and recovery have been discussed at length with the patient. She understands and wishes to proceed. Job ID: [id number] DocumentID: [id number] Dictated Date: 05/07/2019 13:07:06 Matrix Plater Date: 05/07/2019 14:21:29 Dictated By: HOWARD HUGHES MD
[~2019-05-20] VITALS: Ht 165.1 cm; Wt 89.0 kg
[2019-05-20] VITALS (13 sets, daily range): BP systolic 99–146; BP diastolic 58–100
[~2019-05-20 07:00] MED LIST changes: +LORA10TA76 PO; +POTA-51 PO; +WARF-48 PO
[2019-05-20] MEDS ORDERED: morphine PF (DURAMORPH) 10 MG/10 ML AMP ONE (07:26)
[2019-05-20] MEDS ORDERED: BUPIVACAINE 0.25% 30 ML (SENSORCAINE) VIAL ONE (07:26)
[2019-05-20] MEDS ORDERED: ONDANSETRON 4 MG/2 ML (SDV) Z0FRAN IV ONE (07:30)
[2019-05-20] MEDS ORDERED: FAMOTIDINE 20MG/2ML IV (PEPCID) IV ONE (07:30)
--- NOTE | 2019-05-20 07:31 | Progress Note-Pre Operative ---
Pre-Operative Progress Note H&P Reviewed The H&P was reviewed, patient examined and no changes noted. Date Seen by Provider: May 20, 2019 Time Seen by Provider: 07:31 Date H&P Reviewed: May 20, 2019 Time H&P Reviewed: 07:31 Pre-Operative Diagnosis: right knee medial meniscus tear and chondromalacia HOWARD HUGHES MD May 20, 2019 07:31
--- NOTE | 2019-05-20 07:33 | Progress Note-Post Operative ---
Post-Operative Progess Note Surgeon (s)/Ornamental Metal Worker (s) Surgeon HOWARD HUGHES MD Ornamental Metal Worker: Stef Angeles Pre-Operative Diagnosis right knee medial meniscus tear and chondromalacia Post-Operative Diagnosis right knee lateral meniscus tear and chondromalacia of the medial and lateral femoral condyles and patella Procedure & Operative Findings Date of Procedure 05/20/19 Procedure Performed/Findings right knee arthroscopic partial lateral meniscectomy and chondroplasty of the medial and lateral femoral condyles and patella Anesthesia Type GETA Estimated Blood Loss Estimated blood loss (mL): minimal Specimens/Packing Specimens Removed none Packing: none HOWARD HUGHES MD May 20, 2019 07:33
[2019-05-20] MEDS ORDERED: LACTATED RINGERS 1,000 ML IV PRN (07:35)
[2019-05-20] MEDS ORDERED: FAMOTIDINE 20MG/2ML IV (PEPCID) ONE (07:36)
[2019-05-20] MEDS ORDERED: ONDANSETRON 4 MG/2 ML (SDV) Z0FRAN ONE ×2 (07:36→08:09)
[2019-05-20] MEDS ORDERED: ceFAZolin INJECTION 1,000 MG in WATER (STERILE) FOR INJECTION 10 ML IV ONE (07:45)
[2019-05-20] MEDS ORDERED: MUPIROCIN 2% OINT 22 GM (BACTROBAN) TUBE ONE (07:59)
[2019-05-20] MEDS ORDERED: ENOX40DI13 SQ (07:59)
[2019-05-20 08:04] LABS: PROTHROMBIN TIME PATIENT 13.7 SEC (12.2-14.7)
[2019-05-20] MEDS ORDERED: proPOfol 200 MG/20 ML (DIPRIVAN) VIAL IV ONE (08:09)
[2019-05-20] MEDS ORDERED: MIDAZOLAM 2 MG/2 ML (VERSED) VIAL ONE (08:09)
[2019-05-20] MEDS ORDERED: LIDOCAINE PF 2% 5 ML (XYLOCAINE) VIAL ONE (08:09)
[2019-05-20] MEDS ORDERED: DEXAMETHASONE 10 MG/ML (DECADRON) 1 ML VIAL ONE (08:09)
[2019-05-20] MEDS ORDERED: SEVOFLURANE (ULTANE) 15 ML INHAL SOLN ONE (08:09)
[2019-05-20] MEDS ORDERED: fentaNYL INJECTION 100 MCG/2 ML AMP ONE ×2 (08:09→09:22)
[2019-05-20] MEDS: MUPIROCIN 2% OINT 22 GM (BACTROBAN) TUBE TOP SCH ×2 (09:00→21:10)
[2019-05-20] MEDS: morphine INJ 10 MG/ML 1ML (SYR OR VIAL) ONE ×2 (09:21→15:02)
[2019-05-20] MEDS ORDERED: ONDANSETRON 4 MG/2 ML (SDV) Z0FRAN IVP PRN ×2 (09:30→10:30)
[2019-05-20] MEDS ORDERED: morphine INJ 10 MG/ML 1ML (SYR OR VIAL) IVP ONE (09:30)
--- NOTE | 2019-05-20 10:10 | NUR ---
SUJEY FELIZ admitted to room 433-1, with an admitting diagnosis of TEAR OF MEDIAL MENICUS OF RIGHT KNEE, on 05-20-19 from DAY SURGERY via BED, accompanied by ADULT DAUGHTER AND QUALITY ASSURANCE. SUJEY FELIZ introduced to surroundings, call light, bed controls, phone, TV, temperature control, lights, meal times, smoking policy, visitor policy, side rail policy, bathrooms and showers. Patient Rights given to patient in the handbook. SUJEY FELIZ verbalizes understanding that [facility] is not responsible for the loss or damage to any personal effects or valuables that are kept in the patients posession during their hospitalization. The following Patient Care Plans were discussed with the PATIENT: Discharge Planning, GENERAL POST-OPERATIVE CARE, PHYSICAL THERAPY and KNOWLEDGE DEFICIT. SUJEY FELIZ verbalizes understanding of Interdisciplinary Patient Education. Patient and/or family were informed about the Rapid Response Team and its purpose.
[2019-05-20] MEDS ORDERED: ALPRAZolam 1 MG (XANAX) TAB PO PRN (10:45)
[2019-05-20] MEDS ORDERED: PROMETHAZINE 25 MG (PHENERGAN) TAB PO PRN (10:45)
[2019-05-20] MEDS ORDERED: RT-ALBUTEROL SULF 2.5 MG/3 ML PRE-MIX VIAL IH PRN ×2 (10:45→12:00)
[2019-05-20] MEDS ORDERED: PATIENT MAY USE OWN MEDS, ALL MC SCH (11:00)
[2019-05-20] MEDS ORDERED: HYOSCYAMINE 0.125 MG (LEVSIN) TAB SL PRN (11:15)
--- NOTE | 2019-05-20 12:00 | NUR ---
PATIENT REFUSED 1200 DOSE OF POTASSIUM. SHE REPORTED THAT THEY CHANGED HER PRESCRIPTION TO TWICE A DAY INSTEAD OF THREE TIMES A DAY. SHE TAKES ONE PILL IN THE MORNING AND ONE AT NIGHT.
[2019-05-20] MEDS: HYDROcodone/APAP 7.5 MG/325 MG (LORTAB, LORCET PLUS) TABLET PO PRN ×2 (12:25→17:26)
[2019-05-20] MEDS: KCL 10 MEQ TAB (MICRO K) PO SCH ×2 (12:26→21:10)
--- NOTE | 2019-05-20 13:50 | OPERATIVE REPORT ---
DATE OF SERVICE: 05/20/2019 PREOPERATIVE DIAGNOSES: 1. Right knee lateral meniscus tear. 2. Right knee chondromalacia of patella. 3. Right knee chondromalacia of the medial femoral condyle. POSTOPERATIVE DIAGNOSES: 1. Right knee lateral meniscus tear. 2. Right knee chondromalacia of the medial femoral condyle. 3. Right knee chondromalacia of the lateral femoral condyle. 4. Right knee chondromalacia of patella. PROCEDURES: 1. Right knee arthroscopic partial medial meniscectomy. 2. Right knee arthroscopic chondroplasty medial femoral condyle. 3. Right knee arthroscopic chondroplasty of the lateral femoral condyle. 4. Right knee arthroscopic chondroplasty of the patella. SURGEON: Ubaldo Hughes MD INFORMATION TECHNOLOGY ADVISOR: Stef Angeles, who assisted throughout the procedure and closed the incisions. ANESTHESIA: General endotracheal by Loren Nicholson CRNA. TOURNIQUET TIME: Not applicable. ESTIMATED BLOOD LOSS: Minimal. DRAINS: None. COMPLICATIONS: None. POSTOPERATIVE PLAN: Routine arthroscopy protocol. The patient was transferred to recovery room awake and stable condition. STATEMENT OF MEDICAL NECESSITY: The patient is a 58-year-old female with complaints of right knee pain, catching, locking and swelling. She had pain along the medial femoral condyle and pain medially with Chary. She also had patellofemoral crepitus and pain with patellar loading. She tried rest, activity modifications and anti-inflammatories but did not have significant relief and therefore elected to proceed with surgical intervention. Examination under anesthesia revealed range of motion 0/0/135 with a negative Kaz, negative anterior and posterior drawer. No varus valgus laxity, negative pivot shift. Arthroscopic findings of patella demonstrated grade II chondral flap centrally in a 15 x 15 area. Trochlea demonstrated diffuse grade I chondral softening. Medial and lateral gutters were clear. Lateral compartment demonstrated grade II chondral flap central in a 10 x 12 area. The posterior horn of the lateral meniscus demonstrated a flap tear involving approximately 20% posterior horn. The ACL and PCL were intact. The medial compartment demonstrated grade II chondral flaps of the central portion of femoral condyle in a 10 x 10 area. PROCEDURE IN DETAIL: After risks and benefits of procedure were discussed and questions were answered, informed consent was signed and placed on chart, the operative site was confirmed in the preoperative holding area initialed by the surgeon. The patient was transferred to the operating room. After adequate levels of general endotracheal anesthetic were obtained, a timeout was called, confirming the operative site. Examination under anesthesia was performed with above findings noted. The right lower extremity was prepped and draped in the usual sterile fashion. The knee joint was injected with 60 mL of fluid and standard inferolateral portals were placed with the arthroscope under direct visualization, inferior medial portal was created. The menisci and cruciate was carefully probed with the above findings noted. Then, stable chondral flaps on the patella were debrided with shaver back to a stable edge. Scope was then redirected into the medial compartment and unstable chondral flaps of the medial femoral condyle were debrided with shaver back to a stable edge. Scope was redirected into the lateral compartment where the lateral meniscus tear was debrided with shaver back to a stable edge. This was carefully probed with no further tearing or instability noted. The unstable chondral flaps in lateral femoral condyle were debrided with a shaver back to a stable edge as well. The knee was copiously irrigated. Portal sites were closed with 4-0 nylon in simple interrupted fashion. Knee was injected with Duramorph. Port sites were infiltrated with plain Marcaine. A soft dressing was applied. The patient was transferred to recovery room awake and in stable condition. Job ID: [id number] DocumentID: [id number] Dictated Date: 05/20/2019 08:59:35 Ice Rink Attendant Date: 05/20/2019 13:49:52 Dictated By: UBALDO HUGHES MD
--- NOTE | 2019-05-20 13:57 | Physical Therapy Ortho Eval ---
PT Orthopedic Evaluation Type of Surgery Knee Scope Right knee scope Prior Level of Function Current Living Status: Alone Locomotion (Upon Admit): Independent Established Durable Medical Eq: Quad Cane Patient states she has a quad cane at home that she will use upon discharge to give her support. Patient did not previously use the quad cane to walk. Subjective Subjective 58 year old patient post right knee scope. Patient was agreeable to therapy and motivated to learn exercises and get up and moving. Entry Into Home: Level Entry Steps Into Home: 0 Steps Inside Home: 0 Motor Control Motor Control: Motor Control WNL ROM ROM: WFL, except focal deficit Right knee flexion 95 degrees and extension lacking 5 degrees of 0. Strength Strength: WFL Transfer Transfers (B, C, W/C) (FIM): 4 Gait Gait Assistive Device: None At this time patient did not want to use a walker with gait. Patient ambulated 150' CGA, for 75' patient used no device and for the last 75' patient used the hallway railing. Patient was steady during ambulation with no loss of balance. Patient put more weight through her left lower extremity during gait. Patient is WBAT on the right side. Right Lower Extremity: Right Weight Bearing Status RLE: Weight Bearing/Tolerated Left Lower Extremity: Left Weight Bearing Status LLE: Full Weight Bearing Gait (FIM): 4 Distance (FIM): 3=150 ft Distance: 150' Gait Level of Assist: 4 Wheelchair Wheelchair (FIM): 9 Wheelchair Distance (FIM): 0=does not occure Treatment Rendered Treatment: Therapeutic Exercises, Gait Train Exercise Instruction: Quad Sets, Straight Leg Raise, Heel Slides, Ankle Pumps Assessment/Goals Goal Time Frame: 1 Visit Understands HEP: Yes Safe Ambulation: Yes At this date patient did not want to walk with walker because she did not have one at home. Patient states she has a quad cane at home and plans to use that for longer distances of walking. Patient ambulated 150' today with no device safely. Plan Treatment Plan: Discharge PT/Family Agrees to Plan: Yes Time Time In: 1330 Time Out: 1346 Total Billed Treatment Time: 16 Billed Treatment Time 1 visit JAMEY (16 minutes) JATINDER MCKEON PT May 20, 2019 13:57
[2019-05-20] MEDS ORDERED: RT-IPRATROPIUM (ATROVENT) 0.5MG/2.5ML AMP IH SCH (14:00)
[2019-05-20] MEDS ORDERED: RT-ALBUTEROL/IPRATROPIUM 3 ML (DUONEB) VIAL INH SCH (14:00)
[2019-05-20] MEDS ORDERED: RT-ALBUTEROL SULF 2.5 MG/3 ML PRE-MIX VIAL INH SCH (14:00)
[2019-05-20] MEDS: RT-IPRATROPIUM (ATROVENT) 0.5MG/2.5ML AMP IH SCH ×2 (15:46→18:55)
[2019-05-20] MEDS: RT-ALBUTEROL SULF 2.5 MG/3 ML PRE-MIX VIAL INH SCH ×2 (15:46→18:56)
--- NOTE | 2019-05-20 17:29 | NUR ---
PATIENT WANTS TO TAKE HER 1700 DOSE OF POTASSIUM WITH THE REST OF HER EVENING MEDICATIONS. PATIENT REFUSED HER COUMADIN. SHE STATED THAT SHE DOESN'T RESTART TAKING IT ON SURGERY DAY. SHE STOPS 5 DAYS BEFORE SURGERY. STARTS LOVENOX, TAKES NOTHING ON SURGERY DAY. TAKES LOVENOX AND COUMADIN THE DAY AFTER SURGERY.
[2019-05-20] MEDS ORDERED: warFARin 5 MG (COUMADIN) TAB PO SCH (18:00)
[2019-05-20] MEDS: ENOXAPARIN 40 MG/0.4 ML (LOVENOX) SYR SQ SCH (21:00)
[2019-05-20] MEDS ORDERED: RT-FLUTICASONE 220 MCG (FLOVENT) PER PUFF INH SCH (21:00)
[2019-05-20] MEDS ORDERED: CALCIUM CARB + VIT D 600 MG (CALCARB + D) TAB PO SCH (21:00)
[2019-05-20] MEDS ORDERED: MONTELUKAST 10 MG (SINGULAIR) TAB PO SCH (21:00)
--- NOTE | 2019-05-20 21:28 | NUR ---
PT REPORTS SHE USUALLY DOES NOT RESTART LOVENOX UNTIL THE MORNING AFTER A PROCEDURE. [facility] CONTACTED REGARDING THE SCHEDULED EVENING LOVENOX, SAID IT IS OKAY TO WAIT TILL MORNING
[2019-05-21] MEDS: HYDROcodone/APAP 7.5 MG/325 MG (LORTAB, LORCET PLUS) TABLET PO PRN ×2 (00:02→06:04)
[2019-05-21 04:00] VITALS: BP 127/82
[2019-05-21] MEDS: KCL 10 MEQ TAB (MICRO K) PO SCH (06:04)
--- NOTE | 2019-05-21 07:46 | Progress Note ---
Standard Progress Note Progress Notes/Assess & Plan Date Seen by a Provider: May 21, 2019 Time Seen by a Provider: 07:45 Progress/Assessment & Plan no complaints Vital Signs Date Time Temp Pulse Resp B/P (MAP) Pulse Ox O2 Delivery O2 Flow Rate FiO2 05/21/19 04:00 36.7 98 18 127/82 (97) 93 Nasal Cannula 2.00 05/20/19 23:45 36.6 87 20 99/64 (76) 96 Nasal Cannula 2.00 05/20/19 20:00 36.5 92 18 108/66 (80) 95 Nasal Cannula 2.00 05/20/19 19:50 Nasal Cannula 2.00 05/20/19 18:53 92 Room Air 05/20/19 16:00 37.0 96 18 103/58 (73) 92 Room Air 05/20/19 15:46 93 Nasal Cannula 2.00 05/20/19 12:00 37.0 102 18 114/70 (85) 92 Room Air 05/20/19 10:45 37.0 99 18 132/80 (97) 92 Room Air 05/20/19 10:30 92 Room Air 05/20/19 10:10 Room Air 05/20/19 10:00 37.1 16 129/85 (100) 96 Room Air 05/20/19 10:00 Room Air 05/20/19 09:50 16 134/90 (105) 98 Room Air 05/20/19 09:50 Room Air 05/20/19 09:40 OxyMask 5 05/20/19 09:40 16 146/93 (110) 100 OxyMask 3 05/20/19 09:30 16 138/91 (107) 100 OxyMask 5 05/20/19 09:25 OxyMask 10 05/20/19 09:20 16 127/81 (96) 100 OxyMask 10 05/20/19 09:10 OxyMask 05/20/19 09:10 16 135/86 (102) 100 OxyMask 10 05/20/19 08:57 36.3 20 131/89 (103) 99 OxyMask 10 05/20/19 08:57 OxyMask 10 I & O 05/21/19 07:00 Intake Total 3110 ml Output Total 400 ml Balance 2710 ml RLE--dressing intact. NVI distally s/p r knee scope dc home regular diet WBAT FU two weeks HOWARD HUGHES MD May 21, 2019 07:46
[2019-05-21 08:00] VITALS: BP 119/74
[2019-05-21] MEDS: ENOXAPARIN 40 MG/0.4 ML (LOVENOX) SYR SQ SCH (08:14)
[2019-05-21] MEDS: MUPIROCIN 2% OINT 22 GM (BACTROBAN) TUBE TOP SCH (08:15)
[2019-05-21] MEDS ORDERED: LORATADINE (CLARITIN) 10 MG TAB PO SCH (09:00)
[2019-05-21] MEDS ORDERED: FUROSEMIDE 40 MG (LASIX) TAB PO SCH (09:00)
[2019-05-21] MEDS ORDERED: PANTOPRAZOLE 40 MG (PROTONIX) TAB PO SCH (09:00)
[2019-05-21 10:05] VITALS: BP 119/74
--- NOTE | 2019-05-21 12:31 | Anesthesia-General Post-Op ---
General Patient Condition Mental Status/LOC: Same as Preop Cardiovascular: Satisfactory Nausea/Vomiting: Absent Respiratory: Satisfactory Pain: Controlled Complications: Absent Post Op Complications Complications None Follow Up Care/Instructions Patient Instructions None needed. Anesthesia/Patient Condition Patient Condition Patient is doing well, no complaints, stable vital signs, no apparent adverse anesthesia problems. No complications reported per nursing. CHULA TORIBIO CRNA May 21, 2019 12:31
== END 2019-05-21 10:09 | disposition home or self-care (01) ==
LOC: SDC 07:00 → 4TH 10:10 → SDC 05-21 10:09
PROVIDERS: ATTEND Orthopaedic Surgery
DX: S83.281A Other tear of lateral meniscus, current injury, right knee, initial encounter (principal); M94.261 Chondromalacia, right knee; I10 Essential (primary) hypertension; J44.9 Chronic obstructive pulmonary disease, unspecified; G47.33 Obstructive sleep apnea (adult) (pediatric); E78.5 Hyperlipidemia, unspecified; K21.9 Gastro-esophageal reflux disease without esophagitis; E78.00 Pure hypercholesterolemia, unspecified; E66.9 Obesity, unspecified; Z91.048 Other nonmedicinal substance allergy status; Z68.33 Body mass index [BMI] 33.0-33.9, adult; Z79.899 Other long term (current) drug therapy; Z87.891 Personal history of nicotine dependence; Z79.01 Long term (current) use of anticoagulants; Z90.89 Acquired absence of other organs; Z98.51 Tubal ligation status; Z88.6 Allergy status to analgesic agent; Z88.8 Allergy status to other drugs, medicaments and biological substances; Z91.040 Latex allergy status; Z88.7 Allergy status to serum and vaccine; I82.409 Acute embolism and thrombosis of unspecified deep veins of unspecified lower extremity; Z82.49 Family history of ischemic heart disease and other diseases of the circulatory system; Z80.9 Family history of malignant neoplasm, unspecified
CPT/HCPCS: 36415; 85610; 94640; 94760

== ENCOUNTER 2019-05-27 23:04 | Inpatient (IN) | payer MEDICAID ==
[~2019-05-27] VITALS: Ht 165 cm; Wt 91.4 kg
[2019-05-27] MEDS ORDERED: RT-ALBUTEROL/IPRATROPIUM 3 ML (DUONEB) VIAL ONE (23:10)
[2019-05-27] MEDS ORDERED: RT-ALBUTEROL SULF 2.5 MG/3 ML PRE-MIX VIAL ONE (23:10)
[2019-05-27] MEDS ORDERED: NS IV 1000 ML 1,000 ML IV SCH (23:14)
[2019-05-27] MEDS ORDERED: NS IV 500 ML 500 ML IV ONE (23:14)
[2019-05-27] MEDS ORDERED: methylPREDNISolone 125 MG (Solu-MEDROL) VIAL IV STA (23:14)
[2019-05-27] MEDS ORDERED: RT-ALBUTEROL SULF 2.5 MG/3 ML PRE-MIX VIAL INH STA (23:14)
[2019-05-27] MEDS ORDERED: CEFEPIME INJECTION 1,000 MG in WATER (STERILE) FOR INJECTION 10 ML IV ONE (23:15)
[2019-05-27] MEDS ORDERED: RT-ALBUTEROL/IPRATROPIUM 3 ML (DUONEB) VIAL INH ONE (23:15)
[2019-05-27 23:20] LABS: ABG BASE EXCESS 0.1 MMOL/L (-2.5-2.5); ABG OXYGEN SATURATION 95 % (94-100); ABG PCO2 37 MMHG (35-45); ABG PH 7.43 (7.37-7.43); ABG PO2 74 MMHG (79-93); ABG TCO2 25.2 MMOL/L (21.0-31.0); ALLENS TEST YES-POS
[2019-05-27 23:21] LABS: INSPIRED O2 2L; PATIENT TEMP 36.7; VENTILATOR NO
[2019-05-27 23:31] LABS: BILIRUBIN,URINE NEGATIVE (NEGATIVE); CLARITY,URINE CLEAR; COLOR,URINE YELLOW; GLUCOSE, URINE (UA) NEGATIVE (NEGATIVE); KETONES,URINE NEGATIVE (NEGATIVE); LEUKOCYTE ESTERASE ,URINE NEGATIVE (NEGATIVE); NITRITE,URINE NEGATIVE (NEGATIVE); PH,URINE 6.5 (5-9); PROTEIN,URINE NEGATIVE (NEGATIVE)
[2019-05-27 23:31] LABS: BASOPHILS % (AUTO) 0 % (0-10); EOSINOPHILS # (AUTO) 0.6 10^3/uL (0.0-0.3); EOSINOPHILS % (AUTO) 10 % (0-10); HEMATOCRIT 40 % (35-52); LYMPHOCYTES # (AUTO) 2.5 X 10^3 (1.0-4.0); LYMPHOCYTES % (AUTO) 38 % (12-44); MEAN CORPUSCULAR HEMOGLOBIN 28 PG (25-34); MEAN CORPUSCULAR HGB CONC 32 G/DL (32-36); MEAN CORPUSCULAR VOLUME 88 FL (80-99); MEAN PLATELET VOLUME 8.8 FL (7.4-10.4); MONOCYTES # (AUTO) 0.7 X 10^3 (0.0-1.0); MONOCYTES % (AUTO) 10 % (0-12); NEUTROPHILS # (AUTO) 2.8 X 10^3 (1.8-7.8); NEUTROPHILS % (AUTO) 42 % (42-75); PLATELET COUNT 276 10^3/uL (130-400); RED CELL DISTRIBUTION WIDTH 15.1 % (10.0-14.5); WHITE BLOOD COUNT 6.7 10^3/uL (4.3-11.0)
[2019-05-27 23:42] LABS: ALANINE AMINOTRANSFERASE 18 U/L (0-55); ALKALINE PHOSPHATASE 87 U/L (40-136); BILIRUBIN,TOTAL 0.3 MG/DL (0.1-1.0); BUN/CREATININE RATIO 16; CARBON DIOXIDE 23 MMOL/L (21-32); CHLORIDE 108 MMOL/L (98-107); GFR ESTIMATED > 60; GLUCOSE 95 MG/DL (70-105); POTASSIUM 3.6 MMOL/L (3.6-5.0); SODIUM 143 MMOL/L (135-145); TOTAL PROTEIN 7.5 GM/DL (6.4-8.2)
[2019-05-28 00:10] LABS: BACTERIA,URINE TRACE /HPF; RBC,URINE RARE /HPF; WBC,URINE RARE /HPF
[2019-05-28 00:13] LABS: INR 1.2 (0.8-1.4); PROTHROMBIN TIME PATIENT 15.6 SEC (12.2-14.7)
--- NOTE | 2019-05-28 00:35 | ED Respiratory ---
General Chief Complaint: Respiratory Problems Stated Complaint: SOB Nursing Triage Note: soa x1 day Source: patient Exam Limitations: no limitations History of Present Illness Date Seen by Provider: May 27, 2019 Time Seen by Provider: 23:10 Initial Comments Patient presents to ER by private conveyance with chief complaint of shortness of air progressively worsening over the past several days. She says she has a history of COPD but no CAD. She used to follow with Dr. Jackson for pulmonology, Dr. Wolf for primary care recently had a surgery with Dr. HUGHES on her right knee. She's typically on warfarin. She's not having any chest pain nausea sweats fevers or chills. She says been about months she's been on steroids. She's not having any diarrhea, constipation fever rash or chills. Allergies and Home Medications Allergies Coded Allergies: aspirin (Verified Allergy, Severe, ANAPHYLAXIS, 03/03/19) ibuprofen (Verified Allergy, Severe, ANAPHYLAXIS, 03/03/19) ketorolac (Verified Allergy, Severe, ANAPHYLAXIS, 03/03/19) tetanus and diphtheria toxoids (Unverified Allergy, Severe, ANAPHYLAXIS, 03/03/19) aloe (Verified Allergy, Mild, RASH, 03/03/19) latex (Verified Allergy, Mild, RASH, 03/03/19) OCCASIONALLY IS IRRITATING SKIN scopolamine (Verified Allergy, Mild, 03/03/19) iodine (Verified Adverse Reaction, Unknown, 03/03/19) Patient states she got dizzy, diaphoretic and saw stars. Uncoded Allergies: ALOE VERA (Allergy, Unknown, 12/23/05) SILK SUTURES (Adverse Reaction, Unknown, BODY REJECTS SUTURES, 10/07/13) Home Medications Albuterol Sulfate 2.5 Mg/3 Ml Vial.neb, 2.5 MG NEB TID, (Reported) MIXES WITH IPRATROPIUM SOLUTION Albuterol Sulfate 8.5 Gm Hfa.aer.ad, 2 PUFF IH Q4H PRN for SHORTNESS OF BREATH, (Reported) Alprazolam 1 Mg Tablet, 1 MG PO Q8H PRN for ANXIETY, (Reported) Calcium Carbonate/Vitamin D3 1 Each Tablet, 1 TAB PO BID, (Reported) Enoxaparin Sodium 40 Mg/0.4 Ml Syringe, 40 MG SQ BID, (Reported) Fluticasone Propionate 1 Ea Aero, 2 PUFF INH BID, (Reported) Furosemide 40 Mg Tablet, 40 MG PO DAILY, (Reported) Hyoscyamine Sulfate 0.125 Mg Tab.rapdis, 0.125 MG SL Q6H PRN for ABDOMINAL PAIN, (Reported) Ipratropium [place] 0.2 Mg/1 Ml Solution, 1 VIAL NEB TID, (Reported) MIXES WITH ALBUTEROL SOLUTION Loratadine 10 Mg Tablet, 10 MG PO DAILY, (Reported) Montelukast Sodium 10 Mg Tablet, 10 MG PO HS, (Reported) Pantoprazole Sodium 40 Mg Tablet.dr, 40 MG PO DAILY, (Reported) Potassium Chloride 20 Meq Tablet.er, 20 MEQ PO TID, (Reported) Promethazine HCl 25 Mg Tablet, 25 MG PO Q6H PRN for NAUSEA/VOMITING-2ND LINE, (Reported) Warfarin Sodium 5 Mg Tablet, 5 MG PO DAILY@1800, (Reported) Patient Home Medication List Home Medication List Reviewed: Yes Review of Systems Review of Systems Constitutional: No chills, No diaphoresis EENTM: No hearing loss, No ear pain Respiratory: cough; No phlegm; short of breath; No wheezing Cardiovascular: No chest pain, No edema, No Hx of Intervention, No palpitations Gastrointestinal: No abdominal pain, No constipation, No diarrhea, No nausea 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: No discharge, No dysuria Musculoskeletal: No back pain, No joint pain Skin: No pruritus, No rash Psychiatric/Neurological: Denies Headache, Denies Numbness All Other Systems Reviewed Negative Unless Noted: Yes Past Owjbugi-Igktse-Rirpcm Hx Patient Social History Alcohol Use: Denies Use Recreational Drug Use: No (15 yrs ago---IV drug user including Cocaine-CLEAN SINCE 1994) Drug of Choice: + IV COCAINE USE Smoking Status: Former Smoker Type Used: Cigarettes Former Smoker, Quit: Nov 17, 2000 2nd Hand Smoke Exposure: No Recent Foreign Travel: No Contact w/Someone Who Travel: No Recent Infectious Disease Expo: No Recent Hopitalizations: Yes (05/21/19 knee sx) Physical Abuse: No Sexual Abuse: No Mistreated: No Fear: No Immunizations Up To Date Tetanus Booster (TDap): Unknown PED Vaccines UTD: No Date of Pneumonia Vaccine: Sep 05, 2016 Date of Influenza Vaccine: Mar 11, 2012 Seasonal Allergies Seasonal Allergies: Yes Past Medical History Surgeries: Yes (C/S X2, KNEE SCOPE, SHOULDER SCOPE, d&C, BILAT ULNAR NERVE, VENA CAVA FILTE) Abdominal, Adenoidectomy, Section, Gallbladder, Hysterectomy, Orthopedic, Tonsillectomy, Tubal Ligation, Vascular Surgery Respiratory: Yes (O2 AT HS 2-3L/NC AND PRN--NOCTURNAL HYPOXIA; ) Asthma, Pneumonia, Chronic Bronchitis, Pulmonary Embolism, COPD Currently Using CPAP: No Currently Using BIPAP: No Cardiac: Yes Chronic Edema/Swelling, Deep Vein Thrombosis, High Cholesterol, Hypertension, Peripheral Vascular Neurological: Yes Neuropathy : No 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 Disorders: No 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 Disorders: Denies [employer] History: Hysterectomy, Menopausal Sexually Transmitted Disease: No HIV/AIDS: No 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: Yes Kidney Infection, Bladder Infection, Kidney Stones Gastrointestinal: Yes (MULTIPLE HERNIA REPAIRS; MULTIPLE EGD'S /COLONOSCOPIES/POLYPECTOMIES) Abdominal Hernia, Gastroesophageal Reflux, Chronic Constipation, Chronic Diarrhea, Hepatitis, Polyps, Hiatal Hernia, Irritable Bowel Musculoskeletal: Yes Arthritis Endocrine: Yes ("PRE-DIABETIC" ) HEENT: Yes (NASAL POLYPS REMOVED) Cataract Loss of Vision: Denies Hearing Impairment: Denies Cancer: No Did You Recieve Any Treatments: No Psychosocial: Yes Anxiety Integumentary: Yes (CHRONIC VENOUS STASIS DERMATITIS AND ULCERS. ) Recent Skin Changes Blood Disorders: Yes (DVT'S/PE'S; PROBABLE PROTEIN C DEFICIENCY) Adverse Reaction/Blood Tranf: No (HAS HAD BLOOD WITH NO PROBLEMS) Family Medical History Alcoholism Alcoholism Arthritis Asthma Cancer Cancer of colon Cancer of mouth Cardiovascular disease Cataract Cataracts Chest pain Colon cancer Completed stroke Diabetes mellitus Family history: Allergy Family history: Arthritis Family history: Asthma Family history: Cardiovascular disease Family history: Coronary thrombosis Family history: Diabetes mellitus Family history: Gastrointestinal disease Family history: Hypertension Family history: Thyroid disorder Headache Hearing loss Heart disease History of - anemia History of - respiratory disease Hypercholesterolemia Hypercholesterolemia Infertile Malignant neoplasm of lung Myocardial infarction Myocardial infarction Psychotic disorder Respiratory disorder Stroke No Family History of: AIDS Abdominal aortic aneurysm Abdominal aortic aneurysm Nodaway's disease Fernando's disease Alzheimer's disease Aphasia Aphasia Congenital disease Congenital heart disease Congenital heart disease Congestive heart failure Coronary thrombosis Cystic fibrosis Cystic fibrosis Deafness or hearing loss Dementia Dementia Drug abuse Dysphagia Dysphasia Family history: Alzheimer's disease Family history: Breast disease Family history: Glaucoma Family history: Osteoporosis Fibrocystic disease of breast Gastroenteritis Glaucoma Headache disorder Hereditary disease History of - disorder History of drug abuse Human immunodeficiency virus (HIV) seropositivity Infertility Kidney disease Kidney disease Neoplasm Not obtainable due to adoption Osteoporosis Parkinson's disease Parkinson's disease Prostate cancer Psychosocial problem Seizure disorder Seizure disorder Severe allergy Thyroid disease Tuberculosis Tuberculosis Visual disorder Visual impairment Cancer, COPD, Vascular Disease Physical Exam Vital Signs - First Documented 05/27/19 23:06 Temp 36.7 Pulse 128 Resp 22 B/P (MAP) 144/118 (127) Pulse Ox 95 O2 Delivery Nasal Cannula O2 Flow Rate 2.00 Capillary Refill : Less Than 3 Seconds Height: 5'5.00" Weight: 184lbs. 5.0oz. 83.956528cy; 32.00 BMI Method:Stated General Appearance: moderate distress, obese Eyes: Bilateral Eye Normal Inspection, Bilateral Eye PERRL, Bilateral Eye EOMI HEENT: PERRL/EOMI, normal ENT inspection, TMs normal, pharynx normal Neck: full range of motion, supple, normal inspection Respiratory: respiratory distress, decreased breath sounds, accessory muscle use, wheezing Cardiovascular: normal peripheral pulses, regular rate, rhythm, tachycardia Gastrointestinal: normal bowel sounds, non tender, soft Neurologic/Psychiatric: alert, normal mood/affect, oriented x 3 Skin: normal color, warm/dry Focused Exam Lactate Level 05/27/19 23:39: Lactic Acid Level 1.39 Lactic Acid Level Laboratory Tests Test 05/27/19 23:39 Lactic Acid Level 1.39 MMOL/L (0.50-2.00) Progress/Results/Core Measures Suspected Sepsis Recent Fever Within 48 Hours: No Infection Criteria Present: None New/Unexplained Altered Menta: No Sepsis Screen: No Definite Risk SIRS Temperature: Pulse: 128 Respiratory Rate: 22 Laboratory Tests 05/27/19 23:13: White Blood Count 6.7 Blood Pressure 144 /118 Mean: 127 05/27/19 23:39: Lactic Acid Level 1.39 Laboratory Tests 05/27/19 23:13: Creatinine 0.70, INR Comment 1.2, Platelet Count 276, Total Bilirubin 0.3 Results/Orders Lab Results Laboratory Tests Test 05/27/19 23:12 05/27/19 23:13 05/27/19 23:22 05/27/19 23:39 Range/Units Blood Gas Puncture Site RW Blood Gas Patient Temperature 36.7 Arterial Blood pH 7.43 7.37-7.43 Arterial Blood Partial Pressure CO2 37 35-45 MMHG Arterial Blood Partial Pressure O2 74 L 79-93 MMHG Arterial Blood HCO3 24 23-27 MMOL/L Arterial Blood Total CO2 25.2 21.0-31.0 MMOL/L Arterial Blood Oxygen Saturation 95 94-100 % Arterial Blood Base Excess 0.1 -2.5-2.5 MMOL/L Papa Test YES-POS Blood Gas Ventilator Setting NO Blood Gas Inspired Oxygen 2L White Blood Count 6.7 4.3-11.0 10^3/uL Red Blood Count 4.57 4.35-5.85 10^6/uL Hemoglobin 13.0 11.5-16.0 G/DL Hematocrit 40 35-52 % Mean Corpuscular Volume 88 80-99 FL Mean Corpuscular Hemoglobin 28 25-34 PG Mean Corpuscular Hemoglobin Concent 32 32-36 G/DL Red Cell Distribution Width 15.1 H 10.0-14.5 % Platelet Count 276 130-400 10^3/uL Mean Platelet Volume 8.8 7.4-10.4 FL Neutrophils (%) (Auto) 42 42-75 % Lymphocytes (%) (Auto) 38 12-44 % Monocytes (%) (Auto) 10 0-12 % Eosinophils (%) (Auto) 10 0-10 % Basophils (%) (Auto) 0 0-10 % Neutrophils # (Auto) 2.8 1.8-7.8 X 10^3 Lymphocytes # (Auto) 2.5 1.0-4.0 X 10^3 Monocytes # (Auto) 0.7 0.0-1.0 X 10^3 Eosinophils # (Auto) 0.6 H 0.0-0.3 10^3/uL Basophils # (Auto) 0.0 0.0-0.1 10^3/uL Prothrombin Time 15.6 H 12.2-14.7 SEC INR Comment 1.2 0.8-1.4 Activated Partial Thromboplast Time 30 24-35 SEC Sodium Level 143 135-145 MMOL/L Potassium Level 3.6 3.6-5.0 MMOL/L Chloride Level 108 H 98-107 MMOL/L Carbon Dioxide Level 23 21-32 MMOL/L Anion Gap 12 5-14 MMOL/L Blood Urea Nitrogen 11 7-18 MG/DL Creatinine 0.70 0.60-1.30 MG/DL Estimat Glomerular Filtration Rate > 60 BUN/Creatinine Ratio 16 Glucose Level 95 70-105 MG/DL Calcium Level 9.0 8.5-10.1 MG/DL Corrected Calcium 9.0 8.5-10.1 MG/DL Total Bilirubin 0.3 0.1-1.0 MG/DL Aspartate Amino Transf (AST/SGOT) 17 5-34 U/L Alanine Aminotransferase (ALT/SGPT) 18 0-55 U/L Alkaline Phosphatase 87 40-136 U/L Troponin I < 0.028 <0.028 NG/ML Total Protein 7.5 6.4-8.2 GM/DL Albumin 4.0 3.2-4.5 GM/DL Urine Color YELLOW Urine Clarity CLEAR Urine pH 6.5 5-9 Urine Specific [place] <=1.005 1.016-1.022 Urine Protein NEGATIVE NEGATIVE Urine Glucose (UA) NEGATIVE NEGATIVE Urine Ketones NEGATIVE NEGATIVE Urine Nitrite NEGATIVE NEGATIVE Urine Bilirubin NEGATIVE NEGATIVE Urine Urobilinogen 0.2 < = 1.0 MG/DL Urine Leukocyte Esterase NEGATIVE NEGATIVE Urine RBC (Auto) 1+ H NEGATIVE Urine RBC RARE /HPF Urine WBC RARE /HPF Urine Crystals NONE /LPF Urine Bacteria TRACE /HPF Urine Casts NONE /LPF Urine Mucus NEGATIVE /LPF Urine Culture Indicated NO Lactic Acid Level 1.39 0.50-2.00 MMOL/L Micro Results Microbiology 05/27/19 Influenza Types A,B Antigen (JAIDA) - Final, Complete My Orders Orders - JULIO C MERINO Albuterol Pre-Mix Nebs (Rt) (Proventil (05/27/19 23:10) Albuterol/Ipra Inhalation Soln (Duoneb I (05/27/19 23:10) Arterial Blood Gas (05/27/19 23:15) Albuterol Pre-Mix Nebs (Rt) (Proventil (05/27/19 23:14) Albuterol/Ipra Inhalation Soln (Duoneb I (05/27/19 23:15) Methylprednisolone Sod Succ (Solu-Medrol (05/27/19 23:14) Cbc With Automated Diff (05/27/19 23:14) Comprehensive Metabolic Panel (05/27/19 23:14) Blood Culture (05/27/19 23:14) Sputum Culture (05/27/19 23:14) Urinalysis (05/27/19 23:14) Urine Culture (05/27/19 23:14) Protime With Inr (05/27/19 23:14) Partial Thromboplastin Time (05/27/19 23:14) Ed Iv/Invasive Line Start (05/27/19 23:14) Ed Iv/Invasive Line Start (05/27/19 23:14) Ekg Tracing (05/27/19 23:14) Troponin I (05/27/19 23:14) Vital Signs Adult Sepsis Patie Q15M (05/27/19 23:14) O2 (05/27/19 23:14) Remove Rings In Anticipation O (05/27/19 23:14) Lactic Acid Analyzer (05/27/19 23:14) Influenza A And B Antigens (05/27/19 23:14) Ns Iv 1000 Ml (Sodium Chloride 0.9%) (05/27/19 23:14) Cefepime Injection (Maxipime Injection) (05/27/19 23:15) Ed Iv/Invasive Line Start (05/27/19 23:14) Ns Iv 500 Ml (Sodium Chloride 0.9%) (05/27/19 23:14) Svn Small Volume Nebulizer (05/27/19 23:14) Arterial Blood Gas (05/27/19 23:14) Chest 1 View, Ap/Pa Only (05/28/19 00:01) Medications Given in ED Current Medications Medications Dose Ordered Sig/Nahomi Route Start Time Stop Time Status Last Admin Dose Admin Albuterol Sulfate 2.5 mg STK-MED ONCE .ROUTE 05/27/19 23:10 05/27/19 23:14 DC 05/27/19 23:20 12.5 MG Albuterol/ Ipratropium 3 ml STK-MED ONCE .ROUTE 05/27/19 23:10 05/27/19 23:14 DC 05/27/19 23:19 3 ML Cefepime HCl 1000 mg/Sterile Water 10 ml @ 200 mls/hr ONCE ONCE IV 05/27/19 23:15 05/27/19 23:25 DC 05/27/19 23:56 200 MLS/HR Sodium Chloride 500 ml @ 0 mls/hr Q0M ONCE IV 05/27/19 23:14 05/27/19 23:25 DC 1/15/20 23:55 500 MLS/HR Vital Signs/I&O 05/27/19 05/27/19 05/28/19 23:06 23:35 00:02 Temp 36.7 36.7 Pulse 128 128 Resp 22 22 B/P (MAP) 144/118 (127) 144/118 Pulse Ox 95 95 95 O2 Delivery Nasal Cannula Nasal Cannula Nasal Cannula O2 Flow Rate 2.00 4.00 4.00 05/28/19 00:00 Intake Total 1510 ml Balance 1510 ml Capillary Refill : Less Than 3 Seconds Blood Pressure Mean: 127 ECG Initial ECG Impression Date: May 28, 2019 Initial ECG Impression Time: 00:11 Initial ECG Rate: 120 Initial ECG Rhythm: S.Tach Initial ECG Intervals: QT (475) Initial ECG Impression: Normal, Nonspecific Changes Comment Sinus tachycardia without clinically relevant ST elevation or depression. Diagnostic Imaging Diagonstic Imaging: Xray Plain Films/CT/US/NM/MRI: chest (1v) Comments COPD. No acute cardio pulmonary processes on one view chest x-ray. Reviewed: Reviewed by Me Departure Communication (Admissions) Time/Spoke to Admitting Phy: 01:10 Discussed case lab imaging with Dr. Wolf and he agrees to observe the patient for COPD exacerbation. Impression Primary Impression: COPD exacerbation Additional Impression: Acute and chronic respiratory failure with hypoxia Disposition: ADMITTED INPATIENT Condition: Stable Admissions Decision to Admit Reason: Admit from ER (General) Decision to Admit/Date: May 28, 2019 Time/Decision to Admit Time: 00:01 Departure-Patient Inst. Referrals: LEAH WOLF MD (PCP/Family) Primary Care Physician JULIO C MERINO May 28, 2019 00:35
--- NOTE | 2019-05-28 01:11 | NUR ---
PT TO BEDSIDE COMMODE, NO S/S OF DISTRESS
[2019-05-28 03:35] LABS: BASOPHILS % (AUTO) 0 % (0-10); EOSINOPHILS % (AUTO) 1 % (0-10); HEMATOCRIT 37 % (35-52); HEMOGLOBIN 11.9 G/DL (11.5-16.0); LYMPHOCYTES # (AUTO) 0.3 X 10^3 (1.0-4.0); LYMPHOCYTES % (AUTO) 5 % (12-44); MEAN CORPUSCULAR HEMOGLOBIN 28 PG (25-34); MEAN CORPUSCULAR HGB CONC 32 G/DL (32-36); MEAN CORPUSCULAR VOLUME 88 FL (80-99); MEAN PLATELET VOLUME 9.2 FL (7.4-10.4); MONOCYTES # (AUTO) 0.1 X 10^3 (0.0-1.0); MONOCYTES % (AUTO) 1 % (0-12); NEUTROPHILS # (AUTO) 6.5 X 10^3 (1.8-7.8); NEUTROPHILS % (AUTO) 94 % (42-75); PLATELET COUNT 255 10^3/uL (130-400); WHITE BLOOD COUNT 6.9 10^3/uL (4.3-11.0)
[2019-05-28] MEDS ORDERED: ONDANSETRON 4 MG/2 ML (SDV) Z0FRAN IV PRN (03:45)
[2019-05-28] MEDS ORDERED: ACETAMINOPHEN 500 MG TAB (TYLENOL) PO PRN (03:45)
[2019-05-28 03:57] LABS: ANISOCYTOSIS SLIGHT; BAND NEUTROPHILS 0 %; BASOPHILS % (MANUAL) 0 %; EOSINOPHILS % (MANUAL) 0 %; LYMPHOCYTES % (MANUAL) 6 %; MONOCYTES % (MANUAL) 2 %; NEUTROPHILS % (MANUAL) 92 %; TOXIC GRANULATION/VACUOLAZATIO 2+
[2019-05-28 04:03] LABS: ALANINE AMINOTRANSFERASE 18 U/L (0-55); ALBUMIN 3.7 GM/DL (3.2-4.5); ALKALINE PHOSPHATASE 79 U/L (40-136); BILIRUBIN,TOTAL 0.2 MG/DL (0.1-1.0); BUN/CREATININE RATIO 15; CALCIUM 8.4 MG/DL (8.5-10.1); CARBON DIOXIDE 18 MMOL/L (21-32); CHLORIDE 112 MMOL/L (98-107); CREATININE SERUM 0.62 MG/DL (0.60-1.30); GFR ESTIMATED > 60; GLUCOSE 145 MG/DL (70-105); POTASSIUM 3.4 MMOL/L (3.6-5.0); SODIUM 142 MMOL/L (135-145); TOTAL PROTEIN 6.9 GM/DL (6.4-8.2)
[2019-05-28 05:00] VITALS: BP 110/71
[2019-05-28] MEDS: methylPREDNISolone 40 MG/ML (Solu-MEDROL) VIAL IV SCH ×4 (05:32→23:47)
[2019-05-28] MEDS: FUROSEMIDE 40 MG (LASIX) TAB PO SCH (06:06)
--- NOTE | 2019-05-28 06:32 | Diagnostic Imaging Report ---
INDICATION: Shortness of breath. COMPARISON: 03/04/2019. FINDINGS: Single view of the chest demonstrates stable cardiac enlargement. There are interstitial infiltrates bilaterally likely chronic. There is no pneumothorax or effusion. Osseous structures stable. IMPRESSION: Cardiac enlargement with chronic interstitial changes. Follow-up recommended. Dictated by: Dictated on workstation # [id number]
--- NOTE | 2019-05-28 07:08 | History & Physicial ---
History of Present Illness History of Present Illness Reason for visit/HPI 58-year-old female presents to [facility] emergency department during the evening of May 27, 2019 with shortness of breath and most likely flareup of her COPD. She had been giving herself breathing treatments throughout the afternoon on May 27 without any significant relief. She reports to me her pulse oximeter was broken she was unable to check her saturations. She recently underwent knee surgery last week. She did spend 1 night in the hospital after surgery and had taken prednisone for a few days after. She currently denies any fever. Date of Admission May 28, 2019 at 01:15 Date Seen by a Provider: May 28, 2019 Time Seen by a Provider: 07:10 I consulted on this patient on 05/28/19 07:06 Attending Physician Jay Wolf MD Admitting Physician Jay Wolf MD Consult Allergies and Home Medications Allergies Coded Allergies: aspirin (Verified Allergy, Severe, ANAPHYLAXIS, 03/03/19) ibuprofen (Verified Allergy, Severe, ANAPHYLAXIS, 03/03/19) ketorolac (Verified Allergy, Severe, ANAPHYLAXIS, 03/03/19) tetanus and diphtheria toxoids (Unverified Allergy, Severe, ANAPHYLAXIS, 03/03/19) aloe (Verified Allergy, Mild, RASH, 03/03/19) latex (Verified Allergy, Mild, RASH, 03/03/19) OCCASIONALLY IS IRRITATING SKIN scopolamine (Verified Allergy, Mild, 03/03/19) iodine (Verified Adverse Reaction, Unknown, 03/03/19) Patient states she got dizzy, diaphoretic and saw stars. Uncoded Allergies: ALOE VERA (Allergy, Unknown, 12/23/05) SILK SUTURES (Adverse Reaction, Unknown, BODY REJECTS SUTURES, 10/07/13) Home Medications Albuterol Sulfate 2.5 Mg/3 Ml Vial.neb, 2.5 MG NEB TID, (Reported) MIXES WITH IPRATROPIUM SOLUTION Albuterol Sulfate 8.5 Gm Hfa.aer.ad, 2 PUFF IH Q4H PRN for SHORTNESS OF BREATH, (Reported) Alprazolam 1 Mg Tablet, 1 MG PO Q8H PRN for ANXIETY, (Reported) Calcium Carbonate/Vitamin D3 1 Each Tablet, 1 TAB PO BID, (Reported) Enoxaparin Sodium 40 Mg/0.4 Ml Syringe, 40 MG SQ BID, (Reported) Fluticasone Propionate 1 Ea Aero, 2 PUFF INH BID, (Reported) Furosemide 40 Mg Tablet, 40 MG PO DAILY, (Reported) Hyoscyamine Sulfate 0.125 Mg Tab.rapdis, 0.125 MG SL Q6H PRN for ABDOMINAL PAIN, (Reported) Ipratropium Bruno 0.2 Mg/1 Ml Solution, 1 VIAL NEB TID, (Reported) MIXES WITH ALBUTEROL SOLUTION Loratadine 10 Mg Tablet, 10 MG PO DAILY, (Reported) Montelukast Sodium 10 Mg Tablet, 10 MG PO HS, (Reported) Pantoprazole Sodium 40 Mg Tablet.dr, 40 MG PO DAILY, (Reported) Potassium Chloride 20 Meq Tablet.er, 20 MEQ PO TID, (Reported) Promethazine HCl 25 Mg Tablet, 25 MG PO Q6H PRN for NAUSEA/VOMITING-2ND LINE, (Reported) Warfarin Sodium 5 Mg Tablet, 5 MG PO DAILY@1800, (Reported) Patient Home Medication List Home Medication List Reviewed: Yes Past Aiaxpcg-Xbywat-Yevnsl Hx Patient Social History Marrital Status: Alcohol Use: Denies Use Recreational Drug Use: No (15 yrs ago---IV drug user including Cocaine-CLEAN SINCE 1994) Drug of Choice: + IV COCAINE USE Smoking Status: Former Smoker Former Smoker, Quit: Nov 17, 2000 Type Used: Cigarettes 2nd Hand Smoke Exposure: No Recent Foreign Travel: No Contact w/other who traveled: No Recent Hopitalizations: Yes (05/21/19 knee sx) Recent Infectious Disease Expo: No Immunizations Up To Date Tetanus Booster (TDap): Unknown Pediatric: No Date of Pneumonia Vaccine: Sep 05, 2016 Date of Influenza Vaccine: Mar 11, 2012 Seasonal Allergies Seasonal Allergies: Yes Surgeries Yes (C/S X2, KNEE SCOPE, SHOULDER SCOPE, d&C, BILAT ULNAR NERVE, VENA CAVA FILTE) Abdominal, Adenoidectomy, Section, Gallbladder, Hysterectomy, Orthopedic, Tonsillectomy, Tubal Ligation, Vascular Surgery Respiratory Yes (O2 AT HS 2-3L/NC AND PRN--NOCTURNAL HYPOXIA; ) Currently Using CPAP: No Currently Using BIPAP: No Cardiovascular Yes Chronic Edema/Swelling, Deep Vein Thrombosis, High Cholesterol, Hypertension, Peripheral Vascular Neurological Yes Neuropathy 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 System : No Hx 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 Disorders: No Sexually Transmitted Disease: No HIV/AIDS: No 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: Hysterectomy, Menopausal 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 Yes Kidney Infection, Bladder Infection, Kidney Stones Gastrointestinal Yes (MULTIPLE HERNIA REPAIRS; MULTIPLE EGD'S /COLONOSCOPIES/POLYPECTOMIES) Abdominal Hernia, Gastroesophageal Reflux, Chronic Constipation, Chronic Diarrhea, Hepatitis, Polyps, Hiatal Hernia, Irritable Bowel Musculoskeletal Yes Arthritis Endocrine History of Endocrine Disorders: Yes ("PRE-DIABETIC" ) HEENT History of HEENT Disorders: Yes (NASAL POLYPS REMOVED) HEENT Disorders: Cataract Loss of Vision: Denies Hearing Impairment: Denies Cancer No Did You Recieve Any Treatments: No Psychosocial History of Psychiatric Problem: Yes Behavioral Health Disorders: Anxiety Integumentary History of Skin or Integumenta: Yes (CHRONIC VENOUS STASIS DERMATITIS AND ULCERS. ) Skin/Integumentary Disorders: Recent Skin Changes Blood Transfusions History of Blood Disorders: Yes (DVT'S/PE'S; PROBABLE PROTEIN C DEFICIENCY) Adverse Reaction to a Blood Tr: No (HAS HAD BLOOD WITH NO PROBLEMS) Family Medical History Significant Family History: Cancer, COPD, Vascular Disease Family Hx: Alcoholism Alcoholism Arthritis Asthma 19 MOTHER Cancer G8 BROTHER G8 SISTER Cancer of colon Cancer of mouth Cardiovascular disease Cataract Cataracts Chest pain Colon cancer Completed stroke Diabetes mellitus Family history: Allergy Family history: Arthritis Family history: Asthma Family history: Cardiovascular disease Family history: Coronary thrombosis Family history: Diabetes mellitus G8 BROTHER G8 SISTER Family history: Gastrointestinal disease Family history: Hypertension Family history: Thyroid disorder Headache Hearing loss Heart disease 19 MOTHER History of - anemia History of - respiratory disease Hypercholesterolemia Hypercholesterolemia Hypertension 19 FATHER Infertile Malignant neoplasm of lung Myocardial infarction Myocardial infarction Psychotic disorder Respiratory disorder Stroke No Family History of: AIDS Abdominal aortic aneurysm Abdominal aortic aneurysm Stockton's disease Stockton's disease Alzheimer's disease Aphasia Aphasia Congenital disease Congenital heart disease Congenital heart disease Congestive heart failure Coronary thrombosis Cystic fibrosis Cystic fibrosis Deafness or hearing loss Dementia Dementia Drug abuse Dysphagia Dysphasia Family history: Alzheimer's disease Family history: Breast disease Family history: Glaucoma Family history: Osteoporosis Fibrocystic disease of breast Gastroenteritis Glaucoma Headache disorder Hereditary disease History of - disorder History of drug abuse Human immunodeficiency virus (HIV) seropositivity Infertility Kidney disease Kidney disease Neoplasm Not obtainable due to adoption Osteoporosis Parkinson's disease Parkinson's disease Prostate cancer Psychosocial problem Seizure disorder Seizure disorder Severe allergy Thyroid disease Tuberculosis Tuberculosis Visual disorder Visual impairment Review of Systems Constitutional: see HPI Physical Exam Vital Signs Vital Signs - First Documented 05/27/19 23:06 Temp 36.7 Pulse 128 Resp 22 B/P (MAP) 144/118 (127) Pulse Ox 95 O2 Delivery Nasal Cannula O2 Flow Rate 2.00 Capillary Refill : Less Than 3 Seconds Height, Weight, BMI Height: 5'5.00" Weight: 184lbs. 5.0oz. 83.106271vt; 31.66 BMI Method:Stated General Appearance: No Apparent Distress Eyes: Bilateral Eye Normal Inspection HEENT: Pharynx Normal; No Pharyngeal Erythema Neck: Supple Respiratory: No Normal Breath Sounds; Wheezing, Other (Mild accessory muscle use for breathing) Cardiovascular: Regular Rate, Rhythm Gastrointestinal: Soft Rectal: Deferred Back: Normal Inspection Extremity: Normal Capillary Refill Neurologic/Psychiatric: Alert, Oriented x3 Skin: Normal Color Comments NAME: SUJEY FELIZ [facility] REC#: [id number] PT STATUS: ADM Jesus : 1960 PHYSICIAN: JULIO C MERINO MD ADMIT DATE: 05/28/19/ICU Draft Date of Exam:05/28/19 CHEST 1 VIEW, AP/PA ONLY INDICATION: Shortness of breath. COMPARISON: 03/04/2019. FINDINGS: Single view of the chest demonstrates stable cardiac enlargement. There are interstitial infiltrates bilaterally likely chronic. There is no pneumothorax or effusion. Osseous structures stable. IMPRESSION: Cardiac enlargement with chronic interstitial changes. Follow-up recommended. Dictated on workstation # [id number] Dict: 05/28/19 0621 Trans: 05/28/19 0631 [id number] Interpreted by: JAY HARDY Electronically signed by: Assessment/Plan Assessment and Plan 1. COPD exacerbation. Her influenza testing was noted to be negative. Chest x-ray did not reveal any infiltrates. Her exacerbation does go back to when she came out from under surgery. She does report she was only mild at that time but trended worse ever since she was released. -Patient was admitted for observation to continue IV Solu-Medrol 40 mg every 6 hours. She had received 125 mg in ED. -Oxygen per nasal cannula to maintain sats above 93 percent -Respiratory therapy for nebulizing treatments as necessary every 4 hours 2. History of DVT with PE -She will stay on Coumadin and currently received 7.5 mg in ED. -Recheck INR in the morning Admission Diagnosis Admission Status: Observation Reason for Inpatient Admission: Admitted for respiratory therapy breathing treatments as well as IV Solu-Medrol. Clinical Quality Measures DVT/VTE Risk/Contraindication: Risk Factor Score Per Nursin RFS Level Per Nursing on Admit: 4+=Very High JAY WOLF MD May 28, 2019 07:08
[2019-05-28 08:00] VITALS: BP 123/76
[2019-05-28] MEDS: ENOXAPARIN 40 MG/0.4 ML (LOVENOX) SYR SC SCH (09:01)
[2019-05-28] MEDS: PANTOPRAZOLE 40 MG (PROTONIX) TAB PO SCH (09:01)
[2019-05-28] MEDS: KCL 20 MEQ TAB (K-DUR) PO SCH ×2 (09:02→20:02)
[2019-05-28] MEDS ORDERED: ALBU2.5V4 NEB (09:52)
[2019-05-28] MEDS ORDERED: WARF4TAB9 PO (09:52)
[2019-05-28] MEDS ORDERED: POTA10TA PO (09:52)
[2019-05-28] MEDS ORDERED: HYDR-3816 PO (09:52)
--- NOTE | 2019-05-28 09:53 | NUR ---
WENT OVER THE EXT MED HX WITH THE PATIENT. SHE VERIFIED HOW SHE TAKES THEM. SHE TAKES CALCIUM +D OTC. SHE STATES SHE NORMALLY HAS HYDROCODONE 10-325MG BUT DOES NOT TAKE IT OFTEN, IT WAS LAST FILLED IN SEPTEMBER ACCORDING TO THE EXT MED HX. SHE STATES SHE WAS PRESCRIBED A SMALL SUPPLY OF THE 7.5MG AFTER HER KNEE SURGERY AND HAS THAT RIGHT NOW BUT WILL GOT BACK TO THE 10'S AFTER THEY ARE GONE. I UPDATED THE MED REC TO THE 7.5MG AT THIS TIME.
[2019-05-28] MEDS: RT-ALBUTEROL/IPRATROPIUM 3 ML (DUONEB) VIAL INH SCH ×3 (12:35→19:32)
--- NOTE | 2019-05-28 12:47 | NUR ---
patient to floor at this time via w/c accompanied by ICU staff.
[2019-05-28 13:30] VITALS: BP 149/95
[2019-05-28 16:00] VITALS: BP 120/73
[2019-05-28] MEDS: warFARin 7.5 MG (COUMADIN) TAB PO SCH (18:16)
[2019-05-28] MEDS: guaiFENesin/CODEINE (ROBITUSSIN AC) 10ML UDC PO PRN ×2 (18:16→23:47)
[2019-05-28 19:00] VITALS: BP 133/67
[2019-05-28] MEDS: SIMvastatin 10 MG (ZOCOR) TAB PO SCH ×2 (20:02→20:04)
[2019-05-28 23:42] VITALS: BP 117/61
[2019-05-29] MEDS: RT-ALBUTEROL/IPRATROPIUM 3 ML (DUONEB) VIAL INH SCH ×6 (00:22→22:00)
[2019-05-29 05:29] LABS: INR 1.5 (0.8-1.4); PROTHROMBIN TIME PATIENT 18.7 SEC (12.2-14.7)
[2019-05-29] MEDS: FUROSEMIDE 40 MG (LASIX) TAB PO SCH (05:43)
[2019-05-29] MEDS: methylPREDNISolone 40 MG/ML (Solu-MEDROL) VIAL IV SCH ×3 (05:43→18:28)
--- NOTE | 2019-05-29 07:39 | Progress Note ---
Subjective Date Seen by a Provider: May 29, 2019 Time Seen by a Provider: 07:15 Subjective/Events-last exam Patient sitting in chair this morning upon making rounds. She is wearing nasal cannula oxygen and is with slight audible expiratory wheezing. She reports she is doing slightly better than yesterday. There is no reported fever and no productive cough. Focused Exam Lactate Level 05/27/19 23:39: Lactic Acid Level 1.39 Objective Exam Vital Signs Date Time Temp Pulse Resp B/P (MAP) Pulse Ox O2 Delivery O2 Flow Rate FiO2 05/29/19 02:18 95 Nasal Cannula 3.00 05/28/19 23:42 36.6 102 20 117/61 (79) 92 Nasal Cannula 3.00 05/28/19 20:00 Nasal Cannula 3.00 05/28/19 19:32 94 Nasal Cannula 3.00 05/28/19 19:00 36.4 94 20 133/67 (89) 96 Nasal Cannula 3.00 05/28/19 16:00 95 Nasal Cannula 3.00 05/28/19 16:00 36.9 104 20 120/73 (89) 95 Nasal Cannula 3.00 05/28/19 13:30 36.4 113 20 149/95 (113) 95 Nasal Cannula 3.00 05/28/19 13:20 97 Nasal Cannula 3.00 05/28/19 12:17 102 05/28/19 12:00 Nasal Cannula 3.00 05/28/19 12:00 106 97 Nasal Cannula 3.00 05/28/19 09:00 Nasal Cannula 3.00 05/28/19 08:00 Nasal Cannula 3.00 05/28/19 08:00 116 14 123/76 (92) 98 Nasal Cannula 3.00 I & O 05/29/19 07:00 Intake Total 1550 ml Balance 1550 ml Capillary Refill : Less Than 3 Seconds General Appearance: No Apparent Distress HEENT: Pharynx Normal Respiratory: Wheezing (Scattered throughout) Cardiovascular: Regular Rate, Rhythm Gastrointestinal: soft Results Lab Laboratory Tests 05/29/19 04:55: Prothrombin Time 18.7H, INR Comment 1.5H Microbiology 05/27/19 Blood Culture - Preliminary, Resulted No growth 05/27/19 Influenza Types A,B Antigen (JAIDA) - Final, Complete 05/27/19 Urine Culture - Final, Complete NO GROWTH Assessment/Plan Assessment/Plan Assess & Plan/Chief Complaint 1. COPD exacerbation. Her influenza testing was noted to be negative. Chest x-ray did not reveal any infiltrates. Her exacerbation does go back to when she came out from under surgery. She does report she was only mild at that time but trended worse ever since she was released. -Patient was admitted for observation to continue IV Solu-Medrol 40 mg every 6 hours. She had received 125 mg in ED. -Oxygen per nasal cannula to maintain sats above 93 percent -Respiratory therapy for nebulizing treatments as necessary every 4 hours 05/29 -Patient has improved overall with regard to her COPD exacerbation. -Plan on giving Solu-Medrol today every 6 hours 40 mg. 2. History of DVT with PE -She will stay on Coumadin and currently received 7.5 mg in ED. -Recheck INR in the morning 05/29 -INR this morning 1.5 -We'll continue with the 7.5 Coumadin at this point. Clinical Quality Measures Admission Status Admission Dx 1. COPD exacerbation. Her influenza testing was noted to be negative. Chest x-ray did not reveal any infiltrates. Her exacerbation does go back to when she came out from under surgery. She does report she was only mild at that time but trended worse ever since she was released. -Patient was admitted for observation to continue IV Solu-Medrol 40 mg every 6 hours. She had received 125 mg in ED. -Oxygen per nasal cannula to maintain sats above 93 percent -Respiratory therapy for nebulizing treatments as necessary every 4 hours 2. History of DVT with PE -She will stay on Coumadin and currently received 7.5 mg in ED. -Recheck INR in the morning DVT/VTE Risk/Contraindication: Risk Factor Score Per Nursin RFS Level Per Nursing on Admit: 4+=Very High LEAH WOLF MD May 29, 2019 07:39
[2019-05-29 08:00] VITALS: BP 123/69
[2019-05-29] MEDS: guaiFENesin/CODEINE (ROBITUSSIN AC) 10ML UDC PO PRN (09:32)
[2019-05-29] MEDS: ENOXAPARIN 40 MG/0.4 ML (LOVENOX) SYR SC SCH (09:32)
[2019-05-29] MEDS: KCL 20 MEQ TAB (K-DUR) PO SCH ×2 (09:32→20:47)
[2019-05-29] MEDS: PANTOPRAZOLE 40 MG (PROTONIX) TAB PO SCH (09:34)
[2019-05-29 15:45] VITALS: BP 117/68
[2019-05-29] MEDS: warFARin 7.5 MG (COUMADIN) TAB PO SCH (18:28)
[2019-05-29] MEDS: SIMvastatin 10 MG (ZOCOR) TAB PO SCH (20:47)
[2019-05-30] VITALS: BP 104/62
[2019-05-30] MEDS: methylPREDNISolone 40 MG/ML (Solu-MEDROL) VIAL IV SCH ×4 (00:05→21:21)
[2019-05-30] MEDS: RT-ALBUTEROL/IPRATROPIUM 3 ML (DUONEB) VIAL INH SCH ×6 (02:29→21:51)
[2019-05-30] MEDS: FUROSEMIDE 40 MG (LASIX) TAB PO SCH (05:38)
[2019-05-30] MEDS ORDERED: RT-ALBUTEROL SULF 2.5 MG/3 ML PRE-MIX VIAL ONE (06:00)
[2019-05-30] MEDS ORDERED: RT-ALBUTEROL SULF 2.5 MG/3 ML PRE-MIX VIAL INH STA (06:09)
[2019-05-30 06:22] LABS: PROTHROMBIN TIME PATIENT 23.7 SEC (12.2-14.7)
[2019-05-30 07:30] VITALS: BP 103/63
[2019-05-30] MEDS: PANTOPRAZOLE 40 MG (PROTONIX) TAB PO SCH (08:18)
[2019-05-30] MEDS: KCL 20 MEQ TAB (K-DUR) PO SCH (08:18)
[2019-05-30] MEDS: ENOXAPARIN 40 MG/0.4 ML (LOVENOX) SYR SC SCH (08:18)
[2019-05-30] MEDS ORDERED: RT-ALBUTEROL SULF 2.5 MG/3 ML PRE-MIX VIAL IH PRN ×2 (10:00)
[2019-05-30] MEDS ORDERED: ALPRAZolam 1 MG (XANAX) TAB PO PRN (10:00)
[2019-05-30] MEDS ORDERED: HYDROcodone/APAP 7.5 MG/325 MG (LORTAB, LORCET PLUS) TABLET PO PRN (10:00)
[2019-05-30] MEDS ORDERED: PROMETHAZINE 25 MG (PHENERGAN) TAB PO PRN (10:00)
--- NOTE | 2019-05-30 10:00 | Progress Note ---
Subjective Date Seen by a Provider: May 30, 2019 Time Seen by a Provider: 09:40 Subjective/Events-last exam Patient does report having setback this morning regarding her breathing. She does report her oxygen saturation dropped into the upper 80 percentile. She does report having shortness of breath and not feeling as if she can't catch her breath. There has been no reports of any fever. Focused Exam Lactate Level 05/27/19 23:39: Lactic Acid Level 1.39 Objective Exam Vital Signs Date Time Temp Pulse Resp B/P (MAP) Pulse Ox O2 Delivery O2 Flow Rate FiO2 05/30/19 09:10 93 Nasal Cannula 3.00 05/30/19 07:30 37.1 20 103/63 (76) 95 Nasal Cannula 3.00 05/30/19 06:16 94 Nasal Cannula 3.00 05/30/19 05:57 94 Nasal Cannula 3.00 05/30/19 02:30 96 Nasal Cannula 3.00 05/30/19 00:00 36.7 105 21 104/62 (76) 97 Nasal Cannula 3.00 05/29/19 22:01 94 Nasal Cannula 3.00 05/29/19 21:00 Nasal Cannula 3.00 05/29/19 18:49 93 Nasal Cannula 3.00 05/29/19 15:45 36.6 91 20 117/68 (84) 95 Nasal Cannula 3.00 05/29/19 11:10 94 Nasal Cannula 3.00 I & O 05/30/19 07:00 Intake Total 2650 ml Output Total 4150 ml Balance -1500 ml Capillary Refill : Less Than 3 Seconds General Appearance: Anxious Respiratory: Decreased Breath Sounds; No Respiratory Distress, No Stridor; Wheezing Cardiovascular: Regular Rate, Rhythm Gastrointestinal: soft Extremity: Normal Capillary Refill, Pedal Edema (Slight) Neurologic/Psychiatric: Alert, Oriented x3 Results Lab Laboratory Tests 05/30/19 06:01: Prothrombin Time 23.7H, INR Comment 2.0H Microbiology 05/27/19 Blood Culture - Preliminary, Resulted No growth 05/27/19 Influenza Types A,B Antigen (JAIDA) - Final, Complete 05/27/19 Urine Culture - Final, Complete NO GROWTH Assessment/Plan Assessment/Plan Assess & Plan/Chief Complaint 1. COPD exacerbation. Her influenza testing was noted to be negative. Chest x-ray did not reveal any infiltrates. Her exacerbation does go back to when she came out from under surgery. She does report she was only mild at that time but trended worse ever since she was released. -Patient was admitted for observation to continue IV Solu-Medrol 40 mg every 6 hours. She had received 125 mg in ED. -Oxygen per nasal cannula to maintain sats above 93 percent -Respiratory therapy for nebulizing treatments as necessary every 4 hours 05/29 -Patient has improved overall with regard to her COPD exacerbation. -Plan on giving Solu-Medrol today every 6 hours 40 mg. 05/30 -Her Solu-Medrol was changed to 80 mg IV every 8 hours. -Will plan on tapering to prednisone tomorrow 2. History of DVT with PE -She will stay on Coumadin and currently received 7.5 mg in ED. -Recheck INR in the morning 05/29 -INR this morning 1.5 -We'll continue with the 7.5 Coumadin at this point. 05/30 -Switched to 4 mg Coumadin since her INR is now 2.0 -Recheck INR in the morning Clinical Quality Measures Admission Status Admission Dx 1. COPD exacerbation. Her influenza testing was noted to be negative. Chest x-ray did not reveal any infiltrates. Her exacerbation does go back to when she came out from under surgery. She does report she was only mild at that time but trended worse ever since she was released. -Patient was admitted for observation to continue IV Solu-Medrol 40 mg every 6 hours. She had received 125 mg in ED. -Oxygen per nasal cannula to maintain sats above 93 percent -Respiratory therapy for nebulizing treatments as necessary every 4 hours 2. History of DVT with PE -She will stay on Coumadin and currently received 7.5 mg in ED. -Recheck INR in the morning DVT/VTE Risk/Contraindication: Risk Factor Score Per Nursin RFS Level Per Nursing on Admit: 4+=Very High LEAH WOLF MD May 30, 2019 10:00
[2019-05-30] MEDS: RT-IPRATROPIUM (ATROVENT) 0.5MG/2.5ML AMP IH SCH (13:31)
[2019-05-30 16:17] VITALS: BP 133/68
[2019-05-30] MEDS: KCL 10 MEQ TAB (MICRO K) PO SCH (16:44)
[2019-05-30] MEDS: warFARin 4 MG (COUMADIN) TAB PO SCH (17:23)
[2019-05-30] MEDS ORDERED: warFARin 7.5 MG (COUMADIN) TAB PO SCH (18:00)
[2019-05-30] MEDS: SIMvastatin 10 MG (ZOCOR) TAB PO SCH (21:17)
[2019-05-30] MEDS: MONTELUKAST 10 MG (SINGULAIR) TAB PO SCH (21:21)
[2019-05-30] MEDS: RT-FLUTICASONE 220 MCG (FLOVENT) PER PUFF INH SCH (22:22)
[2019-05-31] VITALS: BP 121/71
[2019-05-31 05:38] LABS: BASOPHILS % (AUTO) 0 % (0-10); EOSINOPHILS % (AUTO) 0 % (0-10); HEMATOCRIT 40 % (35-52); HEMOGLOBIN 12.5 G/DL (11.5-16.0); LYMPHOCYTES # (AUTO) 0.6 X 10^3 (1.0-4.0); LYMPHOCYTES % (AUTO) 6 % (12-44); MEAN CORPUSCULAR HEMOGLOBIN 28 PG (25-34); MEAN CORPUSCULAR HGB CONC 32 G/DL (32-36); MEAN CORPUSCULAR VOLUME 89 FL (80-99); MEAN PLATELET VOLUME 8.8 FL (7.4-10.4); MONOCYTES # (AUTO) 0.7 X 10^3 (0.0-1.0); MONOCYTES % (AUTO) 6 % (0-12); NEUTROPHILS # (AUTO) 9.2 X 10^3 (1.8-7.8); NEUTROPHILS % (AUTO) 88 % (42-75); PLATELET COUNT 336 10^3/uL (130-400); RED CELL DISTRIBUTION WIDTH 15.7 % (10.0-14.5); WHITE BLOOD COUNT 10.5 10^3/uL (4.3-11.0)
[2019-05-31] MEDS: FUROSEMIDE 40 MG (LASIX) TAB PO SCH (05:40)
[2019-05-31] MEDS: KCL 10 MEQ TAB (MICRO K) PO SCH ×2 (05:40→16:03)
[2019-05-31] MEDS: methylPREDNISolone 40 MG/ML (Solu-MEDROL) VIAL IV SCH ×3 (05:40→21:17)
[2019-05-31 05:46] LABS: INR 2.2 (0.8-1.4); PROTHROMBIN TIME PATIENT 25.5 SEC (12.2-14.7)
[2019-05-31 05:54] LABS: BUN/CREATININE RATIO 28; CALCIUM 8.7 MG/DL (8.5-10.1); CARBON DIOXIDE 22 MMOL/L (21-32); CHLORIDE 105 MMOL/L (98-107); CREATININE SERUM 0.65 MG/DL (0.60-1.30); GFR ESTIMATED > 60; GLUCOSE 160 MG/DL (70-105); SODIUM 140 MMOL/L (135-145)
[2019-05-31] MEDS: ENOXAPARIN 40 MG/0.4 ML (LOVENOX) SYR SC SCH (07:56)
[2019-05-31] MEDS: LORATADINE (CLARITIN) 10 MG TAB PO SCH (07:56)
[2019-05-31] MEDS: PANTOPRAZOLE 40 MG (PROTONIX) TAB PO SCH (07:56)
[2019-05-31 08:00] VITALS: BP 138/92
--- NOTE | 2019-05-31 08:00 | Progress Note ---
Subjective Date Seen by a Provider: May 31, 2019 Time Seen by a Provider: 07:50 Subjective/Events-last exam Breathing a little bit better today than yesterday. She still hasn't done any walking in the hallways. Appetite okay Objective Exam Vital Signs Date Time Temp Pulse Resp B/P (MAP) Pulse Ox O2 Delivery O2 Flow Rate FiO2 05/31/19 00:00 36.4 105 20 121/71 (88) 96 Nasal Cannula 3.00 05/30/19 22:22 94 Nasal Cannula 3.00 05/30/19 21:51 95 Nasal Cannula 3.00 05/30/19 21:00 Nasal Cannula 3.00 05/30/19 17:49 95 Nasal Cannula 3.00 05/30/19 16:17 36.8 99 16 133/68 (89) 96 05/30/19 13:32 94 Nasal Cannula 3.00 05/30/19 09:10 93 Nasal Cannula 3.00 05/30/19 09:00 93 Nasal Cannula 3.00 I & O 05/31/19 07:00 Intake Total 2460 ml Output Total 1950 ml Balance 510 ml Capillary Refill : Less Than 3 Seconds General Appearance: Anxious (Slight) Respiratory: No Lungs Clear, No Respiratory Distress; Wheezing (Bilaterally) Cardiovascular: Regular Rate, Rhythm Gastrointestinal: soft Neurologic/Psychiatric: Oriented x3 Skin: Normal Color, Warm/Dry Results Lab Laboratory Tests 05/31/19 05:20: White Blood Count 10.5, Red Blood Count 4.46, Hemoglobin 12.5, Hematocrit 40, Mean Corpuscular Volume 89, Mean Corpuscular Hemoglobin 28, Mean Corpuscular Hemoglobin Concent 32, Red Cell Distribution Width 15.7H, Platelet Count 336, Mean Platelet Volume 8.8, Neutrophils (%) (Auto) 88H, Lymphocytes (%) (Auto) 6L, Monocytes (%) (Auto) 6, Eosinophils (%) (Auto) 0, Basophils (%) (Auto) 0, Neutrophils # (Auto) 9.2H, Lymphocytes # (Auto) 0.6L, Monocytes # (Auto) 0.7, Eosinophils # (Auto) 0.0, Basophils # (Auto) 0.0, Prothrombin Time 25.5H, INR Co mment 2.2H, Sodium Level 140, Potassium Level 4.0, Chloride Level 105, Carbon Dioxide Level 22, Anion Gap 13, Blood Urea Nitrogen 18, Creatinine 0.65, Estimat Glomerular Filtration Rate > 60, BUN/Creatinine Ratio 28, Glucose Level 160H, Calcium Level 8.7 Microbiology 05/27/19 Blood Culture - Preliminary, Resulted No growth 05/27/19 Influenza Types A,B Antigen (JAIDA) - Final, Complete 05/27/19 Urine Culture - Final, Complete NO GROWTH Assessment/Plan Assessment/Plan Assess & Plan/Chief Complaint 1. COPD exacerbation. Her influenza testing was noted to be negative. Chest x-ray did not reveal any infiltrates. Her exacerbation does go back to when she came out from under surgery. She does report she was only mild at that time but trended worse ever since she was released. -Patient was admitted for observation to continue IV Solu-Medrol 40 mg every 6 hours. She had received 125 mg in ED. -Oxygen per nasal cannula to maintain sats above 93 percent -Respiratory therapy for nebulizing treatments as necessary every 4 hours 05/29 -Patient has improved overall with regard to her COPD exacerbation. -Plan on giving Solu-Medrol today every 6 hours 40 mg. 05/30 -Her Solu-Medrol was changed to 80 mg IV every 8 hours. -Will plan on tapering to prednisone tomorrow 05/31 -We will hold on tapering prednisone until tomorrow on June 01. -Continue with Solu-Medrol 80 mg IV every 8 hours today -Attempt more walking in the hallway this afternoon 2. History of DVT with PE -She will stay on Coumadin and currently received 7.5 mg in ED. -Recheck INR in the morning 05/29 -INR this morning 1.5 -We'll continue with the 7.5 Coumadin at this point. 05/30 -Switched to 4 mg Coumadin since her INR is now 2.0 -Recheck INR in the morning 05/31 -INR is 2.2. Will continue with 4 mg Coumadin Clinical Quality Measures Admission Status Admission Dx 1. COPD exacerbation. Her influenza testing was noted to be negative. Chest x-ray did not reveal any infiltrates. Her exacerbation does go back to when she came out from under surgery. She does report she was only mild at that time but trended worse ever since she was released. -Patient was admitted for observation to continue IV Solu-Medrol 40 mg every 6 hours. She had received 125 mg in ED. -Oxygen per nasal cannula to maintain sats above 93 percent -Respiratory therapy for nebulizing treatments as necessary every 4 hours 2. History of DVT with PE -She will stay on Coumadin and currently received 7.5 mg in ED. -Recheck INR in the morning DVT/VTE Risk/Contraindication: Risk Factor Score Per Nursin RFS Level Per Nursing on Admit: 4+=Very High LEAH WOLF MD May 31, 2019 08:00
[2019-05-31] MEDS ORDERED: FUROSEMIDE 40 MG (LASIX) TAB PO SCH (09:00)
[2019-05-31] MEDS ORDERED: PANTOPRAZOLE 40 MG (PROTONIX) TAB PO SCH (09:00)
[2019-05-31] MEDS: RT-FLUTICASONE 220 MCG (FLOVENT) PER PUFF INH SCH ×2 (09:30→18:48)
[2019-05-31] MEDS: RT-ALBUTEROL/IPRATROPIUM 3 ML (DUONEB) VIAL INH SCH ×4 (09:30→23:00)
[2019-05-31 16:41] VITALS: BP 148/86
[2019-05-31] MEDS: warFARin 4 MG (COUMADIN) TAB PO SCH (17:06)
[2019-05-31] MEDS: SIMvastatin 10 MG (ZOCOR) TAB PO SCH (19:15)
[2019-05-31] MEDS: MONTELUKAST 10 MG (SINGULAIR) TAB PO SCH (21:17)
[2019-06-01] VITALS: BP 143/82
[2019-06-01] MEDS: RT-ALBUTEROL/IPRATROPIUM 3 ML (DUONEB) VIAL INH SCH ×6 (03:00→22:48)
[2019-06-01] MEDS: methylPREDNISolone 40 MG/ML (Solu-MEDROL) VIAL IV SCH ×3 (05:06→21:33)
[2019-06-01] MEDS: FUROSEMIDE 40 MG (LASIX) TAB PO SCH (05:06)
[2019-06-01] MEDS: KCL 10 MEQ TAB (MICRO K) PO SCH ×2 (05:06→16:49)
--- NOTE | 2019-06-01 07:20 | Discharge Instructions ---
Discharge Instructions Reconcile Patient Problems Problems Reviewed?: Yes Discharge Medications New, Converted or Re-Newed RX: Transmitted to Pharmacy Patient Instructions Patient Instructions Prescription for prednisone called in to [facility] pharmacy. Taper as maría brooks Goal/Follow Up Appt: Dr Wolf in 3 days Return to The Hospital For: Worsening shortness of breath Activity & Diet Discharge Diet: Low Fat/Low Cholesterol LEAH WOLF MD Jun 01, 2019 07:20
[2019-06-01] MEDS: RT-FLUTICASONE 220 MCG (FLOVENT) PER PUFF INH SCH ×2 (07:34→22:49)
[2019-06-01] MEDS: RT-IPRATROPIUM (ATROVENT) 0.5MG/2.5ML AMP IH SCH (07:35)
[2019-06-01 08:00] VITALS: BP 136/78
[2019-06-01] MEDS: PANTOPRAZOLE 40 MG (PROTONIX) TAB PO SCH (09:00)
[2019-06-01] MEDS: LORATADINE (CLARITIN) 10 MG TAB PO SCH (09:00)
--- NOTE | 2019-06-01 12:42 | Physician Query Clarification ---
PQ-Uncertain Diagnosis Admission/Discharge Admission Date: May 30, 2019 at 12:09 Discharge Date: The medical record reflects the following clinical scenario: History/Risk Factors: COPD with exacerbation History of tobacco use Clinical Findings:Blood gases PH 7.43, PC02 37, P02 74, 02 sats 95. Vitals: T 36.7, Pulse 128, Resp 22. Symptoms: Respiratory distress, decreased breath sounds, accessory muscle use and wheezing. Treatment: Admitted for Albuterol Sulfate resp therapy treatments and IV Solu Medrol. Question: Is Acute on Chronic Respiratory Failure with hypoxia a clinically valid diagnosis? Acute on Chronic Respiratory Failure with hypoxia was documented in the ED report impression by Dr. Jauregui with no further documentation in the medical record. Please document a response in Progress Note or Discharge Summary. 1. Yes, clinically valid, condition resolved. 2. No, condition ruled out. 3. Other, with explanation of clinical findings. 4. Undetermined, no explanation for clinical findings. PHYSICIAN RESPONSE Diagnosis clinically valid: Yes, Conditon resolved Explanation of clincal finding He has she did come with acute on chronic respiratory failure with hypoxemia. Please remember a lack of response to the above will prompt a phone page by CDI/Coding staff. In responding to this query, please exercise your independent professional judgment. The purpose of this communication is to more accurately reflect the complexity of your patients condition. The fact that a question is asked does not imply that any particular answer is desired or expected. Thank you for your timely response to this clarification. Requestors name: [ ] Phone # [ ] THIS PHYSICIAN QUERY FORM IS A PERMANENT PART OF THE MEDICAL RECORD ANDREI ECKERT Jun 01, 2019 12:42 LEAH WOLF MD Jun 02, 2019 07:16
[2019-06-01 16:00] VITALS: BP 127/68
[2019-06-01] MEDS ORDERED: HYOSCYAMINE 0.125 MG (LEVSIN) TAB ONE (16:41)
--- NOTE | 2019-06-01 16:43 | Progress Note ---
Subjective Date Seen by a Provider: Jun 01, 2019 Time Seen by a Provider: 07:10 Subjective/Events-last exam Feeling short of breath. No fevers. She hasn't done too much walking. Objective Exam Vital Signs Date Time Temp Pulse Resp B/P (MAP) Pulse Ox O2 Delivery O2 Flow Rate FiO2 06/01/19 15:39 95 Nasal Cannula 3.00 06/01/19 10:37 95 Nasal Cannula 3.00 06/01/19 08:00 36.6 101 22 136/78 (97) 97 Room Air 06/01/19 08:00 95 Nasal Cannula 3.00 06/01/19 07:37 95 Nasal Cannula 3.00 06/01/19 03:02 95 Nasal Cannula 3.00 06/01/19 00:00 36.3 103 20 143/82 (102) 96 Nasal Cannula 3.00 05/31/19 23:01 96 Nasal Cannula 3.00 05/31/19 21:00 Nasal Cannula 3.00 05/31/19 18:49 94 Nasal Cannula 3.00 I & O 06/01/19 07:00 Intake Total 4020 ml Output Total 4750 ml Balance -730 ml Capillary Refill : Less Than 3 Seconds General Appearance: Anxious Respiratory: No Lungs Clear; Wheezing (faint but present in all lung howard) Results Lab Microbiology 05/27/19 Blood Culture - Preliminary, Resulted No growth 05/27/19 Influenza Types A,B Antigen (JAIDA) - Final, Complete 05/27/19 Urine Culture - Final, Complete NO GROWTH Assessment/Plan Assessment/Plan Assess & Plan/Chief Complaint 1. COPD exacerbation. Her influenza testing was noted to be negative. Chest x -ray did not reveal any infiltrates. Her exacerbation does go back to when she came out from under surgery. She does report she was only mild at that time but trended worse ever since she was released. -Patient was admitted for observation to continue IV Solu-Medrol 40 mg every 6 hours. She had received 125 mg in ED. -Oxygen per nasal cannula to maintain sats above 93 percent -Respiratory therapy for nebulizing treatments as necessary every 4 hours 05/29 -Patient has improved overall with regard to her COPD exacerbation. -Plan on giving Solu-Medrol today every 6 hours 40 mg. 05/30 -Her Solu-Medrol was changed to 80 mg IV every 8 hours. -Will plan on tapering to prednisone tomorrow 05/31 -We will hold on tapering prednisone until tomorrow on June 01. -Continue with Solu-Medrol 80 mg IV every 8 hours today -Attempt more walking in the hallway this afternoon 06/01 -Monitor status today and if improves home this afternoon or in the am of 06/02 2. History of DVT with PE -She will stay on Coumadin and currently received 7.5 mg in ED. -Recheck INR in the morning 05/29 -INR this morning 1.5 -We'll continue with the 7.5 Coumadin at this point. 05/30 -Switched to 4 mg Coumadin since her INR is now 2.0 -Recheck INR in the morning 05/31 -INR is 2.2. Will continue with 4 mg Coumadin Clinical Quality Measures Admission Status Admission Dx 1. COPD exacerbation. Her influenza testing was noted to be negative. Chest x-ray did not reveal any infiltrates. Her exacerbation does go back to when she came out from under surgery. She does report she was only mild at that time but trended worse ever since she was released. -Patient was admitted for observation to continue IV Solu-Medrol 40 mg every 6 hours. She had received 125 mg in ED. -Oxygen per nasal cannula to maintain sats above 93 percent -Respiratory therapy for nebulizing treatments as necessary every 4 hours 2. History of DVT with PE -She will stay on Coumadin and currently received 7.5 mg in ED. -Recheck INR in the morning DVT/VTE Risk/Contraindication: Risk Factor Score Per Nursin RFS Level Per Nursing on Admit: 4+=Very High LEAH WOLF MD Jun 01, 2019 16:43
[2019-06-01] MEDS ORDERED: HYOSCYAMINE 0.125 MG (LEVSIN) TAB PO PRN (16:45)
[2019-06-01] MEDS: warFARin 4 MG (COUMADIN) TAB PO SCH (16:49)
[2019-06-01] MEDS: SIMvastatin 10 MG (ZOCOR) TAB PO SCH ×2 (20:36→20:38)
[2019-06-01] MEDS: MONTELUKAST 10 MG (SINGULAIR) TAB PO SCH (20:36)
[2019-06-01 23:42] VITALS: BP 117/72
[2019-06-02] MEDS: RT-ALBUTEROL/IPRATROPIUM 3 ML (DUONEB) VIAL INH SCH ×3 (02:37→10:33)
[2019-06-02] MEDS: KCL 10 MEQ TAB (MICRO K) PO SCH (06:33)
[2019-06-02] MEDS: methylPREDNISolone 40 MG/ML (Solu-MEDROL) VIAL IV SCH ×2 (06:33→14:06)
[2019-06-02] MEDS: FUROSEMIDE 40 MG (LASIX) TAB PO SCH (06:33)
--- NOTE | 2019-06-02 07:18 | Discharge Summary ---
Diagnosis/Chief Complaint Date of Admission May 30, 2019 at 12:09 Date of Discharge June 02, 2019 Discharge Date: Jun 01, 2019 Discharge Time: 1400 Admission Diagnosis Admission Diagnosis 1. COPD exacerbation. 2. History of DVT with PE Discharge Diagnosis 1. Acute on chronic respiratory failure with hypoxemia 2. COPD exacerbation 3. History of DVT with PE Reason Hospital Visit 58-year-old female presents to [facility] emergency department during the evening of May 27, 2019 with shortness of breath and most likely flareup of her COPD. She had been giving herself breathing treatments throughout the afternoon on May 27 without any significant relief. She reports to me her pulse oximeter was broken she was unable to check her saturations. She recently underwent knee surgery last week. She did spend 1 night in the hospital after surgery and had taken prednisone for a few days after. She currently denies any fever. Discharge Summary Hospital Course Was the Problem List Reviewed?: Yes Hospital Course Patient was admitted on May 30, 2019 with acute on chronic respiratory failure. She does have a history of COPD with frequent exacerbation. On admission her chest x-ray did not reveal any pulmonary infiltrates. One week prior to admission she had had knee surgery. She does have a history of COPD typically after having general anesthesia. She had done well initially but over the weekend prior to admission became acutely more short of breath. Ultimately she was admitted for IV Solu-Medrol and was placed on 40 mg every 6 hours. She did receive 125 mg emergency department on admission. She also received nebulizing breathing treatments albuterol every 4 hours. A May 30 her Solu- Medrol was increased to 80 mg every 8 hours due to no significant change in her clinical status. Over the course of the next today she had slow improvement with regard to her dyspnea improvement. She was ambulatory during the course of her stay but she was noted to become acutely dyspneic up until the day prior to dismissal. She remained with stable vital signs. She continued to utilize nasal cannula oxygen at 3 L and she does utilize this at home as well. During the course of her stay she also had her Coumadin level adjusted to have her INR in therapeutic range. She received 7.5 mg Coumadin daily for the first 3 days ultimately changed to 4 mg on the fourth day. Her INR was noted to be 2.2 on May 31, 2019. She was felt ready for dismissal during the late morning of June 02, 2019. She will follow up in office within 3 days. She will also be tapered over the course of 9 days with prednisone beginning at 60 mg daily. Labs Laboratory Tests 05/31/19 05:20: Red Cell Distribution Width 15.7H, Neutrophils (%) (Auto) 88H, Lymphocytes (%) (Auto) 6L, Neutrophils # (Auto) 9.2H, Lymphocytes # (Auto) 0.6L, Prothrombin Time 25.5H, INR Comment 2.2H, Glucose Level 160H Procedures None. Discharge Physical Examination Allergies: Coded Allergies: aspirin (Verified Allergy, Severe, ANAPHYLAXIS, 03/03/19) ibuprofen (Verified Allergy, Severe, ANAPHYLAXIS, 03/03/19) ketorolac (Verified Allergy, Severe, ANAPHYLAXIS, 03/03/19) tetanus and diphtheria toxoids (Unverified Allergy, Severe, ANAPHYLAXIS, 03/03/19) aloe (Verified Allergy, Mild, RASH, 03/03/19) latex (Verified Allergy, Mild, RASH, 03/03/19) OCCASIONALLY IS IRRITATING SKIN scopolamine (Verified Allergy, Mild, 03/03/19) iodine (Verified Adverse Reaction, Unknown, 03/03/19) Patient states she got dizzy, diaphoretic and saw stars. Uncoded Allergies: ALOE VERA (Allergy, Unknown, 12/23/05) SILK SUTURES (Adverse Reaction, Unknown, BODY REJECTS SUTURES, 10/07/13) Vitals & I&Os Vital Signs Date Time Temp Pulse Resp B/P (MAP) Pulse Ox O2 Delivery O2 Flow Rate FiO2 06/02/19 02:37 94 Nasal Cannula 3.00 06/01/19 23:42 35.9 96 18 117/72 (87) General Appearance: No Acute Distress Respiratory: Clear to Auscultation (With faint expiratory wheeze in apical regions) Cardiovascular: Regular Rate Abdominal: Soft Skin: No Rashes Psych/Mental Status: Mental Status NL Discharge Home Medications Reviewed and agree with Discharge Medication list on patient's Discharge Instruction sheet Instructions to Patient/Family Please see electronic discharge instructions given to patient. Clinical Quality Measures DVT/VTE Risk/Contraindication: Risk Factor Score Per Nursin RFS Level Per Nursing on Admit: 4+=Very High LEAH WOLF MD Jun 02, 2019 07:18
[2019-06-02] MEDS: RT-FLUTICASONE 220 MCG (FLOVENT) PER PUFF INH SCH (07:33)
[2019-06-02 08:00] VITALS: BP 128/63
[2019-06-02] MEDS: LORATADINE (CLARITIN) 10 MG TAB PO SCH (08:58)
[2019-06-02] MEDS: PANTOPRAZOLE 40 MG (PROTONIX) TAB PO SCH (08:58)
--- NOTE | 2019-06-02 14:31 | NUR ---
RD ASSESSMENT PMHx: COPD; HTN; hypercholesterolemia; DVT; chronic constipation/diarrhea; hiatal hernia PT INTERACTION: Pt was awake and pleasant during nutrition assessment. Pt states current appetite is pretty good and has been for some time. Note avg PO intake of 100% x2d, per chart review. Pt states following a regular diet at home, but states having "allergy" issues with certain foods. Pt states having "stomach" issues with foods contain pepper, chocolate, coconut and raw tomatoes. Pt states never having been tested for allergic reactions to these foods, but notes they cause issues. Pt states no recent issues with n/v/c/d at this time. Note last BM was 06/01 and pt not currently on bowel regimen per chart review. Pt states recent wt gain d/t medications, but could not give amount/timeframe. Note unable to determine recent wt hx, per chart review. ABNORMAL NUTRITION-RELATED LAB VALUES LOW: HIGH: glu 160 Est. kcal needs: 6178-1735 kcal | 15-20 kcal/kg Est. Pro needs: 73-91 g Pro | 0.8-1.0 g Pro/kg PES STATEMENT: Given pt's PO intake, no nutrition diagnosis at this time (NO-1.1) INTERVENTION: Continue with current diet order of Regular diet. Will continue to follow and reassess as pt needs and status change. MONITOR/EVALUATE: PO Intake; Plan of Care; Hydration Status; Weight Status; Lab Values Esther Ruffin, MS, RD, LD
--- NOTE | 2019-06-04 22:04 | Physician Query Clarification ---
TRINIDAD LAN 06/04/19 2204: [id number] Principal Diagnosis Principal Diagnosis Document Diagnosis QUESTION: Please specify the condition(s) that was chiefly responsible for o ccasioning the admission to the hospital after study/evaluation based on your medical judgment. 1. ACUTE ON CHRONIC RESPIRATORY FAILURE 2. ACUTE EXACERBATION OF COPD 3. OTHER, PLEASE SPECIFY [employer] Operator Note F[employer] Operator Note Please remember a lack of response to the above will prompt a phone page by CDI/coding staff. In responding to this query, please exercise your independent professional judgment. The purpose of this communication is to more accurately reflect the complexity of your patients condition. The fact that a question is asked does not imply that any particular answer is desired or expected. Thank you for your timely response to this clarification. Requestors name: Trinidad Jiménez THIS PHYSICIAN QUERY FORM IS A PERMANENT PART OF THE MEDICAL RECORD LEAH WOLF MD 06/11/19 0657: [id number] Principal Diagnosis Question Chief Reason for Admission Aft: Acute exacerbation of COPD TRINIDAD LAN Jun 04, 2019 22:04 LEAH WOLF MD Jun 11, 2019 06:57
== END 2019-06-02 14:22 | disposition home or self-care (01) | DRG 190 ==
LOC: EDUNIT# 23:04 → ER 23:05 → ICU 05-28 01:15 → 4TH 05-28 12:52 → OBSVTOIN 05-30 12:09
PROVIDERS: ADMIT Family Medicine; ATTEND Family Medicine
DX: J44.1 Chronic obstructive pulmonary disease with (acute) exacerbation (principal); J96.21 Acute and chronic respiratory failure with hypoxia; D68.59 Other primary thrombophilia; I10 Essential (primary) hypertension; R73.03 Prediabetes; G47.34 Idiopathic sleep related nonobstructive alveolar hypoventilation; G62.9 Polyneuropathy, unspecified; E78.00 Pure hypercholesterolemia, unspecified; K21.9 Gastro-esophageal reflux disease without esophagitis; I73.9 Peripheral vascular disease, unspecified; I87.2 Venous insufficiency (chronic) (peripheral); K44.9 Diaphragmatic hernia without obstruction or gangrene; K58.1 Irritable bowel syndrome with constipation; K58.0 Irritable bowel syndrome with diarrhea; E66.9 Obesity, unspecified; M19.91 Primary osteoarthritis, unspecified site; F41.9 Anxiety disorder, unspecified; Z87.891 Personal history of nicotine dependence; Z95.828 Presence of other vascular implants and grafts; Z99.81 Dependence on supplemental oxygen; Z86.711 Personal history of pulmonary embolism; Z86.718 Personal history of other venous thrombosis and embolism; Z86.19 Personal history of other infectious and parasitic diseases; Z68.33 Body mass index [BMI] 33.0-33.9, adult
CPT/HCPCS: 36415; 71045; 80048; 80053; 81000; 82805; 83605; 84484; 85007; 85025; 85027; 85610; 85730; 87040; 87088; 87804; 93005; 94640; 94760; 96374; 96375; G0378

== ENCOUNTER 2019-07-20 07:35 | Inpatient (IN) | payer MEDICAID ==
[~2019-07-20] VITALS: Ht 162 cm; Wt 92.3 kg
[~2019-07-20 07:35] MED LIST changes: +ACHYD1T PO; +FENO145T26 PO; -FENO145T37 PO; -HYDR-3820 PO; +MONT10TA26 PO; +ONDA-105 PO; -ONDA4TAB10 PO; +POTA10TA PO
[2019-07-20] MEDS ORDERED: RT-ALBUTEROL SULF 2.5 MG/3 ML PRE-MIX VIAL ONE (07:43)
[2019-07-20] MEDS ORDERED: RT-IPRATROPIUM (ATROVENT) 0.5MG/2.5ML AMP IH ONE (07:43)
[2019-07-20] MEDS ORDERED: NS IV 1000 ML 1,000 ML IV SCH ×2 (07:44)
[2019-07-20] MEDS ORDERED: RT-ALBUTEROL SULF 2.5 MG/3 ML PRE-MIX VIAL INH STA (07:44)
[2019-07-20] MEDS ORDERED: methylPREDNISolone 125 MG (Solu-MEDROL) VIAL IV STA (07:44)
[2019-07-20] MEDS ORDERED: CEFEPIME INJECTION 1,000 MG in WATER (STERILE) FOR INJECTION 10 ML IV ONE (07:45)
[2019-07-20] MEDS ORDERED: RT-ALBUTEROL/IPRATROPIUM 3 ML (DUONEB) VIAL INH ONE (07:45)
[2019-07-20] MEDS ORDERED: VANCOMYCIN INJECTION 1,750 MG in NS IV 500 ML 500 ML IV ONE (07:45)
--- NOTE | 2019-07-20 07:49 | NUR ---
RT IN ROOM AT THIS TIME.
--- NOTE | 2019-07-20 07:54 | ED Respiratory ---
General Chief Complaint: Respiratory Problems Stated Complaint: COPD Nursing Triage Note: ARRIVED [facility]IA [facility] FROM HOME. SOA STARTING AT APPX 0300, EMS REPORTS PULSE OX 86% RA AT HOME. ARRIVED RECIEVING A BREATHING TX. Source: patient Exam Limitations: no limitations History of Present Illness Date Seen by Provider: Jul 20, 2019 Time Seen by Provider: 07:37 Initial Comments Patient arrives the ER by EMS from home with chief complaint that she is about 6 days into a 9 day steroid taper for her COPD exacerbation and having worsening shortness of breath that woke her up from sleep about an hour or 2 prior to arrival. She took her own breathing treatment as well as received a DuoNeb en route from EMS with mild improvement in her wheezing and shortness of breath. Her baseline oxygen use at 2 L by nasal cannula was turned up to 5 L by the time EMS arrived. She had no fevers or history of subjective fevers. No nausea vomiting rash chills. She follows with Dr. Wolf. She's not having any chest pain or her nausea. EMS reports she may be in atrial fibrillation. She is on wa rfarin and Lasix. She denies a history of coronary disease or diabetes. Echocardiogram by Dr. Cortez from August 2018 demonstrating EF of 55-65% with grade 1 diastolic dysfunction. Allergies and Home Medications Allergies Coded Allergies: aspirin (Verified Allergy, Severe, ANAPHYLAXIS, 03/03/19) ibuprofen (Verified Allergy, Severe, ANAPHYLAXIS, 03/03/19) ketorolac (Verified Allergy, Severe, ANAPHYLAXIS, 03/03/19) tetanus and diphtheria toxoids (Unverified Allergy, Severe, ANAPHYLAXIS, 03/03/19) aloe (Verified Allergy, Mild, RASH, 03/03/19) latex (Verified Allergy, Mild, RASH, 03/03/19) OCCASIONALLY IS IRRITATING SKIN scopolamine (Verified Allergy, Mild, 03/03/19) iodine (Verified Adverse Reaction, Unknown, 03/03/19) Patient states she got dizzy, diaphoretic and saw stars. Uncoded Allergies: ALOE VERA (Allergy, Unknown, 12/23/05) SILK SUTURES (Adverse Reaction, Unknown, BODY REJECTS SUTURES, 10/07/13) Home Medications Albuterol Sulfate 2.5 Mg/3 Ml Vial.neb, 2.5 MG NEB TID, (Reported) MIXES WITH IPRATROPIUM SOLUTION Albuterol Sulfate 8.5 Gm Hfa.aer.ad, 2 PUFF IH Q4H PRN for SHORTNESS OF BREATH, (Reported) Albuterol Sulfate 2.5 Mg/3 Ml Vial.neb, 2.5 MG NEB Q2H PRN for SHORTNESS OF BREATH, (Reported) Alprazolam 1 Mg Tablet, 1 MG PO BID PRN for ANXIETY, (Reported) Calcium Carbonate/Vitamin D3 1 Each Tablet, 1 TAB PO BID, (Reported) Fluticasone Propionate 1 Ea Aero, 2 PUFF INH BID, (Reported) Furosemide 40 Mg Tablet, 40 MG PO DAILY, (Reported) Hydrocodone Bit/Acetaminophen 1 Each Tablet, 1 TAB PO Q4H PRN for PAIN-MODERATE (5-7), (Reported) Hyoscyamine Sulfate 0.125 Mg Tab.rapdis, 0.125 MG SL Q6H PRN for ABDOMINAL PAIN, (Reported) Ipratropium Taylor 0.2 Mg/1 Ml Solution, 1 VIAL NEB TID, (Reported) MIXES WITH ALBUTEROL SOLUTION Loratadine 10 Mg Tablet, 10 MG PO DAILY, (Reported) Montelukast Sodium 10 Mg Tablet, 10 MG PO HS, (Reported) Pantoprazole Sodium 40 Mg Tablet.dr, 40 MG PO DAILY, (Reported) Potassium Chloride 10 Meq Tablet.er, 20 MEQ PO BID, (Reported) TAKES 2 (10MEQ) TABLETS Promethazine HCl 25 Mg Tablet, 25 MG PO Q6H PRN for NAUSEA/VOMITING-2ND LINE, (Reported) Warfarin Sodium 4 Mg Tablet, 4 MG PO 1800, (Reported) Patient Home Medication List Home Medication List Reviewed: Yes Review of Systems Review of Systems Constitutional: No chills, No diaphoresis, No fever; malaise EENTM: No ear pain, No eye pain Respiratory: cough, short of breath, wheezing Cardiovascular: No chest pain, No Hx of Intervention, No palpitations Gastrointestinal: No abdominal pain, No nausea, No vomiting 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: No discharge, No dysuria Musculoskeletal: No back pain, No joint pain All Other Systems Reviewed Negative Unless Noted: Yes Past Juecjmh-Olutlc-Inhshg Hx Patient Social History Alcohol Use: Denies Use Recreational Drug Use: No (15 yrs ago---IV drug user including Cocaine-CLEAN SINCE 1994) Drug of Choice: + IV COCAINE USE Smoking Status: Former Smoker Type Used: Cigarettes Former Smoker, Quit: Nov 17, 2000 2nd Hand Smoke Exposure: No Recent Foreign Travel: No Contact w/Someone Who Travel: No Recent Infectious Disease Expo: No Recent Hopitalizations: Yes (05/21/19 knee sx) Immunizations Up To Date Tetanus Booster (TDap): Unknown PED Vaccines UTD: No Date of Pneumonia Vaccine: Sep 05, 2016 Date of Influenza Vaccine: Mar 11, 2012 Seasonal Allergies Seasonal Allergies: Yes Past Medical History Surgeries: Yes (C/S X2, KNEE SCOPE, SHOULDER SCOPE, d&C, BILAT ULNAR NERVE, VENA CAVA FILTE) Abdominal, Adenoidectomy, Section, Gallbladder, Hysterectomy, Orthopedic, Tonsillectomy, Tubal Ligation, Vascular Surgery Respiratory: Yes (O2 AT HS 2-3L/NC AND PRN--NOCTURNAL HYPOXIA; ) Asthma, Pneumonia, Chronic Bronchitis, Pulmonary Embolism, COPD Currently Using CPAP: No Currently Using BIPAP: No Cardiac: Yes Chronic Edema/Swelling, Deep Vein Thrombosis, High Cholesterol, Hypertension, Peripheral Vascular Neurological: Yes Neuropathy 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 Disorders: No 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, 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 Sexually Transmitted Disease: No HIV/AIDS: No 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: Yes Kidney Infection, Bladder Infection, Kidney Stones Gastrointestinal: Yes (MULTIPLE HERNIA REPAIRS; MULTIPLE EGD'S /COLONOSCOPIES/POLYPECTOMIES) Abdominal Hernia, Gastroesophageal Reflux, Chronic Constipation, Chronic Diarrhea, Hepatitis, Polyps, Hiatal Hernia, Irritable Bowel Musculoskeletal: Yes Arthritis Endocrine: Yes ("PRE-DIABETIC" ) HEENT: Yes (NASAL POLYPS REMOVED) Cataract Loss of Vision: Denies Hearing Impairment: Denies Cancer: No Did You Recieve Any Treatments: No Psychosocial: Yes Anxiety Integumentary: Yes (CHRONIC VENOUS STASIS DERMATITIS AND ULCERS. ) Recent Skin Changes Blood Disorders: Yes (DVT'S/PE'S; PROBABLE PROTEIN C DEFICIENCY) Adverse Reaction/Blood Tranf: No (HAS HAD BLOOD WITH NO PROBLEMS) Family Medical History Alcoholism Alcoholism Arthritis Asthma 19 MOTHER Cancer G8 BROTHER G8 SISTER Cancer of colon Cancer of mouth Cardiovascular disease Cataract Cataracts Chest pain Colon cancer Completed stroke Diabetes mellitus Family history: Allergy Family history: Arthritis Family history: Asthma Family history: Cardiovascular disease Family history: Coronary thrombosis Family history: Diabetes mellitus G8 BROTHER G8 SISTER Family history: Gastrointestinal disease Family history: Hypertension Family history: Thyroid disorder Headache Hearing loss Heart disease 19 MOTHER History of - anemia History of - respiratory disease Hypercholesterolemia Hypercholesterolemia Hypertension 19 FATHER Infertile Malignant neoplasm of lung Myocardial infarction Myocardial infarction Psychotic disorder Respiratory disorder Stroke No Family History of: AIDS Abdominal aortic aneurysm Abdominal aortic aneurysm Midland's disease Midland's disease Alzheimer's disease Aphasia Aphasia Congenital disease Congenital heart disease Congenital heart disease Congestive heart failure Coronary thrombosis Cystic fibrosis Cystic fibrosis Deafness or hearing loss Dementia Dementia Drug abuse Dysphagia Dysphasia Family history: Alzheimer's disease Family history: Breast disease Family history: Glaucoma Family history: Osteoporosis Fibrocystic disease of breast Gastroenteritis Glaucoma Headache disorder Hereditary disease History of - disorder History of drug abuse Human immunodeficiency virus (HIV) seropositivity Infertility Kidney disease Kidney disease Neoplasm Not obtainable due to adoption Osteoporosis Parkinson's disease Parkinson's disease Prostate cancer Psychosocial problem Seizure disorder Seizure disorder Severe allergy Thyroid disease Tuberculosis Tuberculosis Visual disorder Visual impairment Cancer, COPD, Vascular Disease Physical Exam Vital Signs - First Documented 07/20/19 07:35 Temp 35.2 Pulse 136 Resp 22 B/P (MAP) 148/94 (112) Pulse Ox 94 O2 Delivery High Flow N/C Capillary Refill : Less Than 3 Seconds Height: 5'5.00" Weight: 184lbs. 5.0oz. 83.122815jg; 33.00 BMI Method:Stated General Appearance: WD/WN, moderate distress Eyes: Bilateral Eye Normal Inspection, Bilateral Eye PERRL, Bilateral Eye EOMI HEENT: PERRL/EOMI, normal ENT inspection, pharynx normal (mildly dry) Neck: full range of motion, normal inspection Respiratory: respiratory distress (moderate), decreased breath sounds, accessory muscle use ([id number] with tripoding and purse lip breathing), wheezing, expiration (prolonged) Cardiovascular: normal peripheral pulses, regular rate, rhythm, no edema Gastrointestinal: non tender, soft Extremities: normal range of motion, non-tender, normal inspection, normal capillary refill Neurologic/Psychiatric: no motor/sensory deficits, alert, normal mood/affect, oriented x 3 Skin: normal color, warm/dry Focused Exam Lactate Level 07/20/19 07:44: Lactic Acid Level 2.75*H Lactic Acid Level Laboratory Tests Test 07/20/19 07:44 Lactic Acid Level 2.75 MMOL/L (0.50-2.00) *H Progress/Results/Core Measures Suspected Sepsis Recent Fever Within 48 Hours: No Infection Criteria Present: Suspected New Infection New/Unexplained Altered Menta: No Sepsis Screen: Possible Sepsis Risk SIRS Temperature: Pulse: 136 Respiratory Rate: 22 Laboratory Tests 07/20/19 07:44: White Blood Count 9.1 Blood Pressure 148 /94 Mean: 112 07/20/19 07:44: Lactic Acid Level 2.75*H Laboratory Tests 07/20/19 07:44: Creatinine 0.64, INR Comment 1.8H, Platelet Count 299, Total Bilirubin 0.3 Results/Orders Lab Results Laboratory Tests Test 07/20/19 07:42 07/20/19 07:44 07/20/19 07:50 Range/Units Blood Gas Puncture Site RIGHT RADIAL Blood Gas Patient Temperature 35.3 Arterial Blood pH 7.42 7.37-7.43 Arterial Blood Partial Pressure CO2 42 35-45 MMHG Arterial Blood Partial Pressure O2 60 L 79-93 MMHG Arterial Blood HCO3 27 23-27 MMOL/L Arterial Blood Total CO2 28.8 21.0-31.0 MMOL/L Arterial Blood Oxygen Saturation 94 94-100 % Arterial Blood Base Excess 2.9 H -2.5-2.5 MMOL/L Papa Test POSITIVE Blood Gas Ventilator Setting NO Blood Gas Inspired Oxygen 8 L White Blood Count 9.1 4.3-11.0 10^3/uL Red Blood Count 4.59 4.35-5.85 10^6/uL Hemoglobin 12.8 11.5-16.0 G/DL Hematocrit 41 35-52 % Mean Corpuscular Volume 88 80-99 FL Mean Corpuscular Hemoglobin 28 25-34 PG Mean Corpuscular Hemoglobin Concent 32 32-36 G/DL Red Cell Distribution Width 15.7 H 10.0-14.5 % Platelet Count 299 130-400 10^3/uL Mean Platelet Volume 8.7 7.4-10.4 FL Neutrophils (%) (Auto) 43 42-75 % Lymphocytes (%) (Auto) 44 12-44 % Monocytes (%) (Auto) 8 0-12 % Eosinophils (%) (Auto) 5 0-10 % Basophils (%) (Auto) 0 0-10 % Neutrophils # (Auto) 3.9 1.8-7.8 X 10^3 Lymphocytes # (Auto) 4.0 1.0-4.0 X 10^3 Monocytes # (Auto) 0.7 0.0-1.0 X 10^3 Eosinophils # (Auto) 0.4 H 0.0-0.3 10^3/uL Basophils # (Auto) 0.0 0.0-0.1 10^3/uL Prothrombin Time 21.2 H 12.2-14.7 SEC INR Comment 1.8 H 0.8-1.4 Activated Partial Thromboplast Time 27 24-35 SEC Sodium Level 145 135-145 MMOL/L Potassium Level 3.2 L 3.6-5.0 MMOL/L Chloride Level 108 H 98-107 MMOL/L Carbon Dioxide Level 24 21-32 MMOL/L Anion Gap 13 5-14 MMOL/L Blood Urea Nitrogen 14 7-18 MG/DL Creatinine 0.64 0.60-1.30 MG/DL Estimat Glomerular Filtration Rate > 60 BUN/Creatinine Ratio 22 Glucose Level 108 H 70-105 MG/DL Lactic Acid Level 2.75 *H 0.50-2.00 MMOL/L Calcium Level 8.8 8.5-10.1 MG/DL Corrected Calcium 9.0 8.5-10.1 MG/DL Magnesium Level 1.9 1.6-2.4 MG/DL Total Bilirubin 0.3 0.1-1.0 MG/DL Aspartate Amino Transf (AST/SGOT) 11 5-34 U/L Alanine Aminotransferase (ALT/SGPT) 12 0-55 U/L Alkaline Phosphatase 81 40-136 U/L C-Reactive Protein High Sensitivity 0.05 0.00-0.50 MG/DL B-Type Natriuretic Peptide 12.4 <100.0 PG/ML Total Protein 7.2 6.4-8.2 GM/DL Albumin 3.8 3.2-4.5 GM/DL Urine Color YELLOW Urine Clarity CLEAR Urine pH 7.0 5-9 Urine Specific Roscoe <=1.005 1.016-1.022 Urine Protein NEGATIVE NEGATIVE Urine Glucose (UA) NEGATIVE NEGATIVE Urine Ketones NEGATIVE NEGATIVE Urine Nitrite NEGATIVE NEGATIVE Urine Bilirubin NEGATIVE NEGATIVE Urine Urobilinogen 0.2 < = 1.0 MG/DL Urine Leukocyte Esterase NEGATIVE NEGATIVE Urine RBC (Auto) TRACE-I NEGATIVE Urine RBC RARE /HPF Urine WBC NONE /HPF Urine Squamous Epithelial Cells RARE /HPF Urine Crystals NONE /LPF Urine Bacteria NEGATIVE /HPF Urine Casts NONE /LPF Urine Mucus NEGATIVE /LPF Urine Culture Indicated NO Micro Results Microbiology 07/20/19 Influenza Types A,B Antigen (JAIDA) - Final, Complete My Orders Orders - JULIO C MERINO Albuterol Pre-Mix Nebs (Rt) (Proventil (07/20/19 07:44) Albuterol/Ipra Inhalation Soln (Duoneb I (07/20/19 07:45) Methylprednisolone Sod Succ (Solu-Medrol (07/20/19 07:44) Cbc With Automated Diff (07/20/19 07:44) Comprehensive Metabolic Panel (07/20/19 07:44) Blood Culture (07/20/19 07:44) Sputum Culture (07/20/19 07:44) Urinalysis (07/20/19 07:44) Urine Culture (07/20/19 07:44) Protime With Inr (07/20/19 07:44) Partial Thromboplastin Time (07/20/19 07:44) Chest 1 View, Ap/Pa Only (07/20/19 07:44) Ed Iv/Invasive Line Start (07/20/19 07:44) Ed Iv/Invasive Line Start (07/20/19 07:44) Ekg Tracing (07/20/19 07:44) Vital Signs Adult Sepsis Patie Q15M (07/20/19 07:44) O2 (07/20/19 07:44) Remove Rings In Anticipation O (07/20/19 07:44) Lactic Acid Analyzer (07/20/19 07:44) Influenza A And B Antigens (07/20/19 07:44) Ns Iv 1000 Ml (Sodium Chloride 0.9%) (07/20/19 07:44) Cefepime Injection (Maxipime Injection) (07/20/19 07:45) Vancomycin Injection (Vancomycin Injecti (07/20/19 07:45) Arterial Blood Gas (07/20/19 07:44) Svn Small Volume Nebulizer (07/20/19 07:44) Ed Iv/Invasive Line Start (07/20/19 07:44) Ns Iv 1000 Ml (Sodium Chloride 0.9%) (07/20/19 07:44) Albuterol Pre-Mix Nebs (Rt) (Proventil (07/20/19 07:43) Ipratropium 0.02% Neb Solution (Atrovent (07/20/19 07:43) Hs C Reactive Protein (07/20/19 07:56) BNP (07/20/19 07:56) Albuterol Pre-Mix Nebs (Rt) (Proventil (07/20/19 08:00) Svn Small Volume Nebulizer (07/20/19 08:00) Magnesium (07/20/19 08:39) Potassium Chloride (Tablet) (K Dur Table (07/20/19 08:45) Medications Given in ED Current Medications Medications Dose Ordered Sig/Nahomi Route Start Time Stop Time Status Last Admin Dose Admin Albuterol Sulfate 12.5 mg ONCE ONCE INH 07/20/19 08:00 07/20/19 08:02 DC 07/20/19 08:02 12.5 MG Cefepime HCl 1000 mg/Sterile Water 10 ml @ 200 mls/hr ONCE ONCE IV 07/20/19 07:45 07/20/19 07:49 DC 07/20/19 09:03 200 MLS/HR Ipratropium Taylor 0.5 mg STK-MED ONCE IH 07/20/19 07:43 07/20/19 07:49 DC 07/20/19 08:02 0.5 MG Potassium Chloride 20 meq ONCE ONCE PO 07/20/19 08:45 07/20/19 08:46 DC 07/20/19 09:02 20 MEQ Vital Signs/I&O 07/20/19 07/20/19 07:35 08:03 Temp 35.2 Pulse 136 Resp 22 B/P (MAP) 148/94 (112) Pulse Ox 94 94 O2 Delivery High Flow N/C Room Air Capillary Refill : Less Than 3 Seconds Blood Pressure Mean: 112 Progress Note : Time: 07:54 Progress Note Patient appears to be having some moderate respiratory distress secondary to his COPD exacerbation. We'll give her an hour-long breathing treatment. Her oxygen sats are 95% on the breathing treatment which is acceptable at this time. ABG. We'll also get a BNP and CRP as well as chest x-ray looking for evidence of pneumonia or fluid overload. 20 mL/kg would be a little less than 2 L. Septic workup because of her tachycardia now and tachypnea. Plan to cover her with broad-spectrum antibiotics and give her 125 mg Solu-Medrol. EKG for her tachycardia to see if she is in atrial fibrillation. ECG Initial ECG Impression Date: Jul 20, 2019 Initial ECG Impression Time: 07:59 Initial ECG Rate: 123 Initial ECG Rhythm: S.Tach Initial ECG Intervals: Normal Initial ECG Impression: Normal Initial ECG Comparisson: Unchanged Comment Sinus tachycardia without clinically relevant ST elevation or depression. Diagnostic Imaging Diagonstic Imaging: Xray Plain Films/CT/US/NM/MRI: chest (1v) Comments NAME: SUJEY FELIZ [facility] REC#: [id number] PT STATUS: REG ER : 1960 PHYSICIAN: JULIO C MERINO MD ADMIT DATE: 07/20/19/ER Signed Date of Exam:07/20/19 CHEST 1 VIEW, AP/PA ONLY Indication: Shortness of breath Portable chest 8:21 AM Heart size and pulmonary vascularity are normal. Lungs are clear. There are no effusions or pneumothoraces. IMPRESSION: Negative chest Dictated by: Dictated on workstation # [id number] Dict: 07/20/19831 Trans: 07/20/19 08 TB [id number] Interpreted by: ANDRES GEORGE MD Electronically signed by: ANDRES GEORGE MD 07/20/19831 Reviewed: Reviewed by Me Departure Communication (Admissions) Time/Spoke to Admitting Phy: 09:05 Discussed the case with Dr. Nguyen and he agrees with admitting the patient for COPD. Impression Primary Impression: COPD exacerbation Additional Impression: Acute respiratory failure with hypoxia Disposition: ADMITTED INPATIENT Condition: Stable Admissions Decision to Admit Reason: Admit from ER (General) Decision to Admit/Date: Jul 20, 2019 Time/Decision to Admit Time: 09:00 Departure-Patient Inst. Referrals: LEAH WOLF MD (PCP/Family) Primary Care Physician JULIO C MERINO Jul 20, 2019 07:54
[2019-07-20 07:58] LABS: ABG BASE EXCESS 2.9 MMOL/L (-2.5-2.5); ABG OXYGEN SATURATION 94 % (94-100); ABG PCO2 42 MMHG (35-45); ABG PH 7.42 (7.37-7.43); ABG PO2 60 MMHG (79-93); ABG TCO2 28.8 MMOL/L (21.0-31.0)
[2019-07-20 07:59] LABS: BASOPHILS % (AUTO) 0 % (0-10); EOSINOPHILS # (AUTO) 0.4 10^3/uL (0.0-0.3); EOSINOPHILS % (AUTO) 5 % (0-10); HEMATOCRIT 41 % (35-52); HEMOGLOBIN 12.8 G/DL (11.5-16.0); LYMPHOCYTES % (AUTO) 44 % (12-44); MEAN CORPUSCULAR HEMOGLOBIN 28 PG (25-34); MEAN CORPUSCULAR HGB CONC 32 G/DL (32-36); MEAN CORPUSCULAR VOLUME 88 FL (80-99); MEAN PLATELET VOLUME 8.7 FL (7.4-10.4); MONOCYTES # (AUTO) 0.7 X 10^3 (0.0-1.0); MONOCYTES % (AUTO) 8 % (0-12); NEUTROPHILS # (AUTO) 3.9 X 10^3 (1.8-7.8); NEUTROPHILS % (AUTO) 43 % (42-75); PLATELET COUNT 299 10^3/uL (130-400); RED CELL DISTRIBUTION WIDTH 15.7 % (10.0-14.5); WHITE BLOOD COUNT 9.1 10^3/uL (4.3-11.0)
[2019-07-20 07:59] LABS: BILIRUBIN,URINE NEGATIVE (NEGATIVE); CLARITY,URINE CLEAR; COLOR,URINE YELLOW; GLUCOSE, URINE (UA) NEGATIVE (NEGATIVE); KETONES,URINE NEGATIVE (NEGATIVE); LEUKOCYTE ESTERASE ,URINE NEGATIVE (NEGATIVE); NITRITE,URINE NEGATIVE (NEGATIVE); PROTEIN,URINE NEGATIVE (NEGATIVE)
[2019-07-20] MEDS ORDERED: RT-ALBUTEROL SULF 2.5 MG/3 ML PRE-MIX VIAL INH ONE (08:00)
[2019-07-20 08:01] LABS: ALLENS TEST POSITIVE; INSPIRED O2 8 L; PATIENT TEMP 35.3; VENTILATOR NO
[2019-07-20 08:09] LABS: INR 1.8 (0.8-1.4); PROTHROMBIN TIME PATIENT 21.2 SEC (12.2-14.7)
[2019-07-20 08:16] LABS: ALANINE AMINOTRANSFERASE 12 U/L (0-55); ALBUMIN 3.8 GM/DL (3.2-4.5); ALKALINE PHOSPHATASE 81 U/L (40-136); BILIRUBIN,TOTAL 0.3 MG/DL (0.1-1.0); BUN/CREATININE RATIO 22; CALCIUM 8.8 MG/DL (8.5-10.1); CARBON DIOXIDE 24 MMOL/L (21-32); CHLORIDE 108 MMOL/L (98-107); CREATININE SERUM 0.64 MG/DL (0.60-1.30); GFR ESTIMATED > 60; GLUCOSE 108 MG/DL (70-105); POTASSIUM 3.2 MMOL/L (3.6-5.0); SODIUM 145 MMOL/L (135-145); TOTAL PROTEIN 7.2 GM/DL (6.4-8.2)
[2019-07-20 08:20] LABS: BACTERIA,URINE NEGATIVE /HPF; RBC,URINE RARE /HPF; SQUAMOUS EPITHELIAL CELL,UR RARE /HPF
--- NOTE | 2019-07-20 08:34 | Diagnostic Imaging Report ---
Indication: Shortness of breath Portable chest 8:21 AM Heart size and pulmonary vascularity are normal. Lungs are clear. There are no effusions or pneumothoraces. IMPRESSION: Negative chest Dictated by: Dictated on workstation # [id number]
[2019-07-20] MEDS ORDERED: KCL 20 MEQ TAB (K-DUR) PO ONE (08:45)
--- NOTE | 2019-07-20 09:24 | NUR ---
pharmacy contacted for vanc.
--- NOTE | 2019-07-20 09:25 | NUR ---
ATTEMPT TO CALL REPORT TO NAVARRO WHO IS BUSY AT THIS TIME AND WILL CALL BACK WHEN AVAILAABLE.
--- NOTE | 2019-07-20 09:30 | NUR ---
REPORT FROM GENIE HECK FROM ER AT THIS TIME
--- NOTE | 2019-07-20 09:57 | NUR ---
patient to floor at this time via cart accompanied by ER staff.
[2019-07-20] MEDS ORDERED: ONDANSETRON 4 MG/2 ML (SDV) Z0FRAN IV PRN (10:15)
[2019-07-20] MEDS ORDERED: ACETAMINOPHEN 500 MG TAB (TYLENOL) PO PRN (10:15)
[2019-07-20] MEDS ORDERED: CATHETER FLUSH 10 ML SYR IV PRN (10:30)
[2019-07-20] MEDS ORDERED: ALPRAZolam 1 MG (XANAX) TAB PO PRN (10:30)
[2019-07-20 12:00] VITALS: BP 117/67
[2019-07-20] MEDS: ENOXAPARIN 40 MG/0.4 ML (LOVENOX) SYR SC SCH (12:42)
[2019-07-20] MEDS: CATHETER FLUSH 10 ML SYR IV SCH (12:45)
[2019-07-20 13:10] VITALS: BP 148/94
[2019-07-20] MEDS: RT-ALBUTEROL/IPRATROPIUM 3 ML (DUONEB) VIAL INH SCH ×2 (13:27→22:53)
[2019-07-20 13:52] VITALS: BP 146/81
[2019-07-20] MEDS: cefTRIAXone FOR IV USE 1,000 MG in WATER (STERILE) FOR INJECTION 10 ML IV SCH (13:54)
[2019-07-20] MEDS ORDERED: RT-ALBUTEROL/IPRATROPIUM 3 ML (DUONEB) VIAL INH PRN (16:00)
[2019-07-20] MEDS ORDERED: PRD20T PO (16:02)
[2019-07-20] MEDS ORDERED: WARF5TAB8 PO (16:02)
[2019-07-20 16:08] VITALS: BP 121/71
[2019-07-20] MEDS ORDERED: HYDR-4196 PO (16:12)
--- NOTE | 2019-07-20 16:12 | NUR ---
SPOKE WITH THE PT (SHE HAD A MED LIST WITH HER) WENT THRU THE EXT MED HISTORY AND CALLED [facility] TO COMPLETE THE MED REC. PT SAYS SHE TAKES NORCO/APAP 10/325MG (LAST FILLED DILLIONS 07-13-2019 #120) PT CURRENTLY ON A PREDNISONE 20MG TAPER- DIRECTIONS ARE " 3 TABS X 3 DAYS, THEN 2 TABS X 3 DAYS, THEN 1 TAB X 3 DAYS THEN STOP- PT'S NEXT DOSE WILL START THE 1 TAB X 3 DAYS. WARFARIN: PT TAKES 4 MG ON MON,TUES,THUR,FRI AND SAT THEN TAKES 5MG ON SAT & WED OTC MEDS: CALCIUM W/ VIT D
[2019-07-20] MEDS: methylPREDNISolone 40 MG/ML (Solu-MEDROL) VIAL IV SCH (16:52)
[2019-07-20] MEDS ORDERED: warFARin 5 MG (COUMADIN) TAB PO SCH (18:00)
--- NOTE | 2019-07-20 18:10 | History & Physicial ---
History of Present Illness History of Present Illness Reason for visit/HPI 58-year-old female with known COPD and emphysema presents to emergency department via EMS after having a six-day history of exacerbation of her COPD. She denied any fever. We'll prompted her to come to emergency department via EMS was worsening shortness of breath despite having tapered steroids orally. She does take albuterol as well as dual neb treatments at home. She does admit to cough but not productive. There has been no significant fevers. She does take warfarin secondary to history of DVT and pulmonary embolism Date of Admission Jul 20, 2019 at 09:16 Date Seen by a Provider: Jul 20, 2019 Time Seen by a Provider: 18:40 I consulted on this patient on 07/20/19 18:06 Attending Physician Jay Wolf MD Admitting Physician Jay Wolf MD Consult Allergies and Home Medications Allergies Coded Allergies: aspirin (Verified Allergy, Severe, ANAPHYLAXIS, 03/03/19) ibuprofen (Verified Allergy, Severe, ANAPHYLAXIS, 03/03/19) ketorolac (Verified Allergy, Severe, ANAPHYLAXIS, 03/03/19) tetanus and diphtheria toxoids (Unverified Allergy, Severe, ANAPHYLAXIS, 03/03/19) aloe (Verified Allergy, Mild, RASH, 03/03/19) latex (Verified Allergy, Mild, RASH, 03/03/19) OCCASIONALLY IS IRRITATING SKIN scopolamine (Verified Allergy, Mild, 03/03/19) iodine (Verified Adverse Reaction, Unknown, 03/03/19) Patient states she got dizzy, diaphoretic and saw stars. Uncoded Allergies: ALOE VERA (Allergy, Unknown, 12/23/05) SILK SUTURES (Adverse Reaction, Unknown, BODY REJECTS SUTURES, 10/07/13) Home Medications Albuterol Sulfate 2.5 Mg/3 Ml Vial.neb, 2.5 MG NEB TID, (Reported) MIXES WITH IPRATROPIUM SOLUTION Albuterol Sulfate 8.5 Gm Hfa.aer.ad, 2 PUFF IH Q4H PRN for SHORTNESS OF BREATH, (Reported) Albuterol Sulfate 2.5 Mg/3 Ml Vial.neb, 2.5 MG NEB Q2H PRN for SHORTNESS OF BREATH, (Reported) Alprazolam 1 Mg Tablet, 1 MG PO BID PRN for ANXIETY, (Reported) Calcium Carbonate/Vitamin D3 1 Each Tablet, 1 TAB PO BID, (Reported) Fluticasone Propionate 1 Ea Aero, 2 PUFF INH BID, (Reported) Furosemide 40 Mg Tablet, 40 MG PO DAILY, (Reported) Hydrocodone/Acetaminophen 1 Each Tablet, 1 TAB PO Q6- 8H PRN for PAIN-MODERATE (5-7), (Reported) Hyoscyamine Sulfate 0.125 Mg Tab.rapdis, 0.125 MG SL Q6H PRN for ABDOMINAL PAIN, (Reported) Ipratropium [place] 0.2 Mg/1 Ml Solution, 1 VIAL NEB TID, (Reported) MIXES WITH ALBUTEROL SOLUTION Loratadine 10 Mg Tablet, 10 MG PO DAILY, (Reported) Montelukast Sodium 10 Mg Tablet, 10 MG PO HS, (Reported) Pantoprazole Sodium 40 Mg Tablet.dr, 40 MG PO DAILY, (Reported) Potassium Chloride 10 Meq Tablet.er, 20 MEQ PO BID, (Reported) TAKES 2 (10MEQ) TABLETS Prednisone 20 Mg Tab, 20 MG PO UD, (Reported) ON TAPER DOSE 3 TABS X 3 DAYS, THEN 2 TABS X 3 DAYS, THEN 1 T X 3 DAYS= PT IS JUST STARTING THEN 1 TAB X 3 DAYS Promethazine HCl 25 Mg Tablet, 25 MG PO Q6H PRN for NAUSEA/VOMITING-2ND LINE, (Reported) Warfarin Sodium 4 Mg Tablet, 4 MG PO ,,,,SA@1800, (Reported) Warfarin Sodium 5 Mg Tablet, 5 MG PO SAT,SAT @1800, (Reported) Patient Home Medication List Home Medication List Reviewed: Yes Past Rmtvlud-Ncgqhh-Sgsyde Hx Patient Social History Marrital Status: Alcohol Use: Denies Use Recreational Drug Use: No (15 yrs ago---IV drug user including Cocaine-CLEAN SINCE 1994) Drug of Choice: + IV COCAINE USE Smoking Status: Former Smoker Former Smoker, Quit: Nov 17, 2000 Type Used: Cigarettes 2nd Hand Smoke Exposure: No Recent Foreign Travel: No Contact w/other who traveled: No Recent Hopitalizations: Yes (05/21/19 knee sx) Recent Infectious Disease Expo: No Immunizations Up To Date Tetanus Booster (TDap): Unknown Pediatric: No Date of Pneumonia Vaccine: Sep 05, 2016 Date of Influenza Vaccine: Mar 11, 2012 Seasonal Allergies Seasonal Allergies: Yes Surgeries Yes (C/S X2, KNEE SCOPE, SHOULDER SCOPE, d&C, BILAT ULNAR NERVE, VENA CAVA FILTE) Abdominal, Adenoidectomy, Section, Gallbladder, Hysterectomy, Orthopedic, Tonsillectomy, Tubal Ligation, Vascular Surgery Respiratory Yes (O2 AT HS 2-3L/NC AND PRN--NOCTURNAL HYPOXIA; ) Currently Using CPAP: No Currently Using BIPAP: No Cardiovascular Yes Chronic Edema/Swelling, Deep Vein Thrombosis, High Cholesterol, Hypertension, Peripheral Vascular Neurological Yes Neuropathy 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 System Hx 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 Disorders: No Sexually Transmitted Disease: No HIV/AIDS: No 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 Disorders: Denies OSTOMY RN History: Hysterectomy, Menopausal 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 Yes Kidney Infection, Bladder Infection, Kidney Stones Gastrointestinal Yes (MULTIPLE HERNIA REPAIRS; MULTIPLE EGD'S /COLONOSCOPIES/POLYPECTOMIES) Abdominal Hernia, Gastroesophageal Reflux, Chronic Constipation, Chronic Diarrhea, Hepatitis, Polyps, Hiatal Hernia, Irritable Bowel Musculoskeletal Yes Arthritis Endocrine History of Endocrine Disorders: Yes ("PRE-DIABETIC" ) HEENT History of HEENT Disorders: Yes (NASAL POLYPS REMOVED) HEENT Disorders: Cataract Loss of Vision: Denies Hearing Impairment: Denies Cancer No Did You Recieve Any Treatments: No Psychosocial History of Psychiatric Problem: Yes Behavioral Health Disorders: Anxiety Integumentary History of Skin or Integumenta: Yes (CHRONIC VENOUS STASIS DERMATITIS AND ULCERS. ) Skin/Integumentary Disorders: Recent Skin Changes Blood Transfusions History of Blood Disorders: Yes (DVT'S/PE'S; PROBABLE PROTEIN C DEFICIENCY) Adverse Reaction to a Blood Tr: No (HAS HAD BLOOD WITH NO PROBLEMS) Family Medical History Significant Family History: Cancer, COPD, Vascular Disease Family Hx: Alcoholism Alcoholism Arthritis Asthma 19 MOTHER Cancer G8 BROTHER G8 SISTER Cancer of colon Cancer of mouth Cardiovascular disease Cataract Cataracts Chest pain Colon cancer Completed stroke Diabetes mellitus Family history: Allergy Family history: Arthritis Family history: Asthma Family history: Cardiovascular disease Family history: Coronary thrombosis Family history: Diabetes mellitus G8 BROTHER G8 SISTER Family history: Gastrointestinal disease Family history: Hypertension Family history: Thyroid disorder Headache Hearing loss Heart disease 19 MOTHER History of - anemia History of - respiratory disease Hypercholesterolemia Hypercholesterolemia Hypertension 19 FATHER Infertile Malignant neoplasm of lung Myocardial infarction Myocardial infarction Psychotic disorder Respiratory disorder Stroke No Family History of: AIDS Abdominal aortic aneurysm Abdominal aortic aneurysm Fernando's disease [place]'s disease Alzheimer's disease Aphasia Aphasia Congenital disease Congenital heart disease Congenital heart disease Congestive heart failure Coronary thrombosis Cystic fibrosis Cystic fibrosis Deafness or hearing loss Dementia Dementia Drug abuse Dysphagia Dysphasia Family history: Alzheimer's disease Family history: Breast disease Family history: Glaucoma Family history: Osteoporosis Fibrocystic disease of breast Gastroenteritis Glaucoma Headache disorder Hereditary disease History of - disorder History of drug abuse Human immunodeficiency virus (HIV) seropositivity Infertility Kidney disease Kidney disease Neoplasm Not obtainable due to adoption Osteoporosis Parkinson's disease Parkinson's disease Prostate cancer Psychosocial problem Seizure disorder Seizure disorder Severe allergy Thyroid disease Tuberculosis Tuberculosis Visual disorder Visual impairment Review of Systems Constitutional: see HPI Physical Exam Vital Signs Vital Signs - First Documented 07/20/19 07/20/19 07:35 09:12 Temp 35.2 Pulse 136 Resp 22 B/P (MAP) 148/94 (112) Pulse Ox 94 O2 Delivery High Flow N/C O2 Flow Rate 3.00 Capillary Refill : Less Than 3 Seconds Height, Weight, BMI Height: 5'5.00" Weight: 184lbs. 5.0oz. 83.000294cj; 35.55 BMI Method:Stated General Appearance: Mild Distress Eyes: Bilateral Eye Normal Inspection HEENT: Pharynx Normal Neck: Full Range of Motion, Non Tender Respiratory: No Lungs Clear; No Accessory Muscle Use (on floor), Wheezing Cardiovascular: Regular Rate, Rhythm, No Murmur Gastrointestinal: Soft Rectal: Deferred Extremity: Normal Capillary Refill, Normal Inspection Neurologic/Psychiatric: Alert, Oriented x3 Skin: Normal Color Comments [facility]list [place] NAME: SUJEY FELIZ [facility] REC#: [id number] PT STATUS: REG ER : 1960 PHYSICIAN: JULIO C MERINO MD ADMIT DATE: 07/20/19/ER Signed Date of Exam:07/20/19 CHEST 1 VIEW, AP/PA ONLY Indication: Shortness of breath Portable chest 8:21 AM Heart size and pulmonary vascularity are normal. Lungs are clear. There are no effusions or pneumothoraces. IMPRESSION: Negative chest Dictated by: Dictated on workstation # [id number] Dict: 07/20/19 0832 Trans: 07/20/19 0832 TB [id number] Interpreted by: ANDRES GEORGE MD Electronically signed by: ANDRES GEORGE MD 07/20/19 0832 Assessment/Plan Assessment and Plan 1. COPD exacerbation -patient will be receiving Solu-Medrol and breathing treatments per respiratory therapy 2. Hypoxemia secondary to #1 -Oxygen by nasal cannula to maintain saturations of oxygen above 93% 3. Elevated lactic acid -Patient has received cefepime as well as vancomycin in the emergency department. -We will await results of blood culture. -She will also be placed on ceftriaxone 1 g daily intravenous on the floor Admission Diagnosis 1. COPD exacerbation 2. Hypoxemia secondary to #1 3. Elevated lactic acid Admission Status: Inpatient Order (span 2 midnights) Reason for Inpatient Admission: she is admitted for IV Solu-Medrol as well as breathing treatments. Clinical Quality Measures DVT/VTE Risk/Contraindication: Risk Factor Score Per Nursin RFS Level Per Nursing on Admit: 4+=Very High JAY WOLF MD Jul 20, 2019 18:09
[2019-07-20 20:35] VITALS: BP 147/83
[2019-07-20 23:50] VITALS: BP 134/79
[2019-07-21] MEDS: methylPREDNISolone 40 MG/ML (Solu-MEDROL) VIAL IV SCH ×3 (00:53→17:28)
[2019-07-21] MEDS: CATHETER FLUSH 10 ML SYR IV SCH ×4 (00:53→19:56)
[2019-07-21] MEDS: RT-ALBUTEROL/IPRATROPIUM 3 ML (DUONEB) VIAL INH SCH ×6 (02:08→21:42)
[2019-07-21 03:28] LABS: BASOPHILS % (AUTO) 0 % (0-10); EOSINOPHILS % (AUTO) 0 % (0-10); HEMATOCRIT 37 % (35-52); HEMOGLOBIN 11.7 G/DL (11.5-16.0); LYMPHOCYTES # (AUTO) 0.9 X 10^3 (1.0-4.0); LYMPHOCYTES % (AUTO) 9 % (12-44); MEAN CORPUSCULAR HEMOGLOBIN 28 PG (25-34); MEAN CORPUSCULAR HGB CONC 32 G/DL (32-36); MEAN CORPUSCULAR VOLUME 89 FL (80-99); MEAN PLATELET VOLUME 8.8 FL (7.4-10.4); MONOCYTES # (AUTO) 0.5 X 10^3 (0.0-1.0); MONOCYTES % (AUTO) 5 % (0-12); NEUTROPHILS # (AUTO) 8.3 X 10^3 (1.8-7.8); NEUTROPHILS % (AUTO) 85 % (42-75); PLATELET COUNT 295 10^3/uL (130-400); RED CELL DISTRIBUTION WIDTH 15.9 % (10.0-14.5); WHITE BLOOD COUNT 9.8 10^3/uL (4.3-11.0)
[2019-07-21 03:38] LABS: INR 1.9 (0.8-1.4); PROTHROMBIN TIME PATIENT 22.9 SEC (12.2-14.7)
[2019-07-21 03:45] LABS: ALANINE AMINOTRANSFERASE 11 U/L (0-55); ALBUMIN 3.6 GM/DL (3.2-4.5); ALKALINE PHOSPHATASE 77 U/L (40-136); BILIRUBIN,TOTAL 0.2 MG/DL (0.1-1.0); BUN/CREATININE RATIO 19; CALCIUM 8.7 MG/DL (8.5-10.1); CARBON DIOXIDE 22 MMOL/L (21-32); CHLORIDE 106 MMOL/L (98-107); CREATININE SERUM 0.59 MG/DL (0.60-1.30); GFR ESTIMATED > 60; GLUCOSE 144 MG/DL (70-105); SODIUM 139 MMOL/L (135-145); TOTAL PROTEIN 6.8 GM/DL (6.4-8.2)
[2019-07-21 04:30] VITALS: BP 126/83
--- NOTE | 2019-07-21 07:09 | Progress Note ---
Subjective Date Seen by a Provider: Jul 21, 2019 Time Seen by a Provider: 07:10 Subjective/Events-last exam Breathing better. Tolerating food. Focused Exam Lactate Level 07/21/19 01:05: Lactic Acid Level 3.61*H 07/21/19 03:10: Lactic Acid Level 3.55*H 07/21/19 05:12: Lactic Acid Level 3.36*H Lactic Acid Level Laboratory Tests Test 07/21/19 03:10 07/21/19 05:12 Lactic Acid Level 3.55 MMOL/L (0.50-2.00) *H 3.36 MMOL/L (0.50-2.00) *H Objective Exam Vital Signs Date Time Temp Pulse Resp B/P (MAP) Pulse Ox O2 Delivery O2 Flow Rate FiO2 07/21/19 06:22 96 Nasal Cannula 3.00 07/21/19 04:30 36.9 80 20 126/83 (97) 96 Nasal Cannula 3.00 07/21/19 02:08 97 Nasal Cannula 3.00 07/21/19 01:00 88 07/20/19 23:50 36.5 96 18 134/79 (97) 97 Nasal Cannula 3.00 07/20/19 22:53 96 Nasal Cannula 3.00 07/20/19 20:45 96 Nasal Cannula 3.00 07/20/19 20:35 36.6 91 20 147/83 (104) 96 Nasal Cannula 3.00 07/20/19 19:00 108 07/20/19 18:49 97 Nasal Cannula 3.00 07/20/19 16:08 36.7 95 20 121/71 (88) 96 Nasal Cannula 3.00 07/20/19 13:52 37.0 125 22 146/81 94 Nasal Cannula 3.00 3.00 07/20/19 13:29 97 Nasal Cannula 3.00 07/20/19 13:10 35.2 136 94 07/20/19 13:00 112 07/20/19 12:00 36.8 118 18 117/67 (84) Room Air 07/20/19 10:46 94 Nasal Cannula 3.00 07/20/19 10:41 118 07/20/19 09:55 130 18 130/82 (112) 94 Nasal Cannula 3.00 07/20/19 09:12 Nasal Cannula 3.00 07/20/19 08:03 94 Room Air 07/20/19 07:35 35.2 136 22 148/94 (112) 94 High Flow N/C I & O 07/21/19 07:00 Intake Total 4720 ml Output Total 2050 ml Balance 2670 ml Capillary Refill : Less Than 3 Seconds General Appearance: No Apparent Distress Neck: Normal Inspection Respiratory: No Accessory Muscle Use, Wheezing (mild) Cardiovascular: Regular Rate, Rhythm Gastrointestinal: soft Results Lab Laboratory Tests 07/20/19 07:42: Blood Gas Puncture Site RIGHT RADIAL, Blood Gas Patient Temperature 35.3, Arterial Blood pH 7.42, Arterial Blood Partial Pressure CO2 42, Arterial Blood Partial Pressure O2 60L, Arterial Blood HCO3 27, Arterial Blood Total CO2 28.8, Arterial Blood Oxygen Saturation 94, Arterial Blood Base Excess 2.9H, Papa Test POSITIVE, Blood Gas Ventilator Setting NO, Blood Gas Inspired Oxygen 8 L 07/20/19 07:44: White Blood Count 9.1, Red Blood Count 4.59, Hemoglobin 12.8, Hematocrit 41, Mean Corpuscular Volume 88, Mean Corpuscular Hemoglobin 28, Mean Corpuscular Hemoglobin Concent 32, Red Cell Distribution Width 15.7H, Platelet Count 299, Mean Platelet Volume 8.7, Neutrophils (%) (Auto) 43, Lymphocytes (%) (Auto) 44, Monocytes (%) (Auto) 8, Eosinophils (%) (Auto) 5, Basophils (%) (Auto) 0, Neutrophils # (Auto) 3.9, Lymphocytes # (Auto) 4.0, Monocytes # (Auto) 0.7, Eosinophils # (Auto) 0.4H, Basophils # (Auto) 0.0, Prothrombin Time 21.2H, INR Comment 1.8H, Activated Partial Thromboplast Time 27, Sodium Level 145, Potassium Level 3.2L, Chloride Level 108H, Carbon Dioxide Level 24, Anion Gap 13, Blood Urea Nitrogen 14, Creatinine 0.64, Estimat Glomerular Filtration Rate > 60, BUN/Creatinine Ratio 22, Glucose Level 108H, Lactic Acid Level 2.75*H, Calcium Level 8.8, Corrected Calcium 9.0, Magnesium Level 1.9, Total Bilirubin 0.3, Aspartate Amino Transf (AST/SGOT) 11, Alanine Aminotransferase (ALT/SGPT) 12, Alkaline Phosphatase 81, C-Reactive Protein High Sensitivity 0.05, B-Type Natriuretic Peptide 12.4, Total Protein 7.2, Albumin 3.8 07/20/19 07:50: Urine Color YELLOW, Urine Clarity CLEAR, Urine pH 7.0, Urine Specific [place] <=1.005, Urine Protein NEGATIVE, Urine Glucose (UA) NEGATIVE, Urine Ketones NEGATIVE, Urine Nitrite NEGATIVE, Urine Bilirubin NEGATIVE, Urine Urobilinogen 0.2, Urine Leukocyte Esterase NEGATIVE, Urine RBC (Auto) TRACE-I, Urine RBC RARE, Urine WBC NONE, Urine Squamous Epithelial Cells RARE, Urine Crystals NONE, Urine Bacteria NEGATIVE, Urine Casts NONE, Urine Mucus NEGATIVE, Urine Culture Indicated NO 07/20/19 10:50: Lactic Acid Level 3.86*H 07/20/19 13:05: Lactic Acid Level 5.44*H 07/20/19 15:00: Lactic Acid Level 5.11*H 07/20/19 17:09: Lactic Acid Level 4.17*H 07/20/19 19:08: Lactic Acid Level 5.10*H 07/20/19 21:00: Lactic Acid Level 4.18*H 07/20/19 22:58: Lactic Acid Level 3.78*H 07/21/19 01:05: Lactic Acid Level 3.61*H 07/21/19 03:10: Lactic Acid Level 3.55*H, White Blood Count 9.8, Red Blood Count 4.18L, Hemoglobin 11.7, Hematocrit 37, Mean Corpuscular Volume 89, Mean Corpuscular Hemoglobin 28, Mean Corpuscular Hemoglobin Concent 32, Red Cell Distribution Width 15.9H, Platelet Count 295, Mean Platelet Volume 8.8, Neutrophils (%) (Auto) 85H, Lymphocytes (%) (Auto) 9L, Monocytes (%) (Auto) 5, Eosinophils (%) (Auto) 0, Basophils (%) (Auto) 0, Neutrophils # (Auto) 8.3H, Lymphocytes # (Auto) 0.9L, Monocytes # (Auto) 0.5, Eosinophils # (Auto) 0.0, Basophils # (Auto) 0.0, Prothrombin Time 22.9H, INR Comment 1.9H, Sodium Level 139, Potassium Level 4.0, Chloride Level 106, Carbon Dioxide Level 22, Anion Gap 11, Blood Urea Nitrogen 11, Creatinine 0.59L, Estimat Glomerular Filtration Rate > 60, BUN/Creatinine Ratio 19, Glucose Level 144H, Calcium Level 8.7, Corrected Calcium 9.0, Total Bilirubin 0.2, Aspartate Amino Transf (AST/SGOT) 9, Alanine Aminotransferase (ALT/SGPT) 11, Alkaline Phosphatase 77, Total Protein 6.8, Albumin 3.6 07/21/19 05:12: Lactic Acid Level 3.36*H Microbiology 07/20/19 Blood Culture - Preliminary, Resulted No growth 07/20/19 Influenza Types A,B Antigen (JAIDA) - Final, Complete Assessment/Plan Assessment/Plan Assess & Plan/Chief Complaint 1. COPD exacerbation -patient will be receiving Solu-Medrol and breathing treatments per respiratory therapy 07/20 -continue solumedrol next 24 hours -suspect taper to prednisone tomorrow 2. Hypoxemia secondary to #1 -Oxygen by nasal cannula to maintain saturations of oxygen above 93% 3. Elevated lactic acid -Patient has received cefepime as well as vancomycin in the emergency department. -We will await results of blood culture. -She will also be placed on ceftriaxone 1 g daily intravenous on the floor 07/20 -Level approaching 2 (currently 3.36) -recheck level next in the am of 07/21 Clinical Quality Measures Admission Status Admission Dx 1. COPD exacerbation 2. Hypoxemia secondary to #1 3. Elevated lactic acid DVT/VTE Risk/Contraindication: Risk Factor Score Per Nursin RFS Level Per Nursing on Admit: 4+=Very High LEAH WOLF MD Jul 21, 2019 07:09
--- NOTE | 2019-07-21 07:30 | NUR ---
Ok to stop Lactic Acid blood draws per Dr. oRgers.
[2019-07-21] MEDS ORDERED: HYDROcodone/APAP 10 MG/325 MG (LORTAB) TAB PO PRN (07:45)
[2019-07-21] MEDS ORDERED: ALPRAZolam 1 MG (XANAX) TAB PO PRN (07:45)
[2019-07-21 08:00] VITALS: BP 153/80
[2019-07-21] MEDS ORDERED: RT-IPRATROPIUM (ATROVENT) 0.5MG/2.5ML AMP IH SCH (08:00)
[2019-07-21] MEDS: LORATADINE (CLARITIN) 10 MG TAB PO SCH (08:24)
[2019-07-21] MEDS: PANTOPRAZOLE 40 MG (PROTONIX) TAB PO SCH (08:24)
[2019-07-21] MEDS ORDERED: warFARin 4 MG (COUMADIN) TAB PO SCH ×2 (09:00→18:00)
--- NOTE | 2019-07-21 09:08 | NUR ---
PRIOR TO A.M. MEDICATIONS PULSE WAS 111 B/P WAS 153/80
--- NOTE | 2019-07-21 09:22 | Diagnostic Imaging Report ---
EXAMINATION: Chest radiograph, portable AP view. DATE: 07/21/2019 7:21 AM hours. INDICATION: 58-year-old female, shortness of breath. COMPARISON: July 20, 2019. FINDINGS: Stable overall appearance of the cardiomediastinal silhouette. There is no identified pneumothorax. There is a gradient of attenuation overlying the right lung base. This has a fairly similar appearance dating back to August 24, 2018. This most likely relates to soft tissue overlap correlating with CT chest imaging on August 25, 2018. There is no identified definite focal airspace consolidation. IMPRESSION: 1. No radiographically apparent acute cardiopulmonary abnormality. Dictated by: Dictated on workstation # [id number]
[2019-07-21 12:00] VITALS: BP 140/90
[2019-07-21] MEDS ORDERED: EPIN0.3P2 IJ (12:16)
[2019-07-21] MEDS: RT-FLUTICASONE 220 MCG (FLOVENT) PER PUFF INH SCH ×2 (13:54→18:26)
[2019-07-21] MEDS: ENOXAPARIN 40 MG/0.4 ML (LOVENOX) SYR SC SCH (14:10)
[2019-07-21] MEDS: cefTRIAXone FOR IV USE 1,000 MG in WATER (STERILE) FOR INJECTION 10 ML IV SCH (14:10)
--- NOTE | 2019-07-21 14:27 | Physician Query Clarification ---
PQ-Conflicting Diagnosis Admission/Discharge Admission Date: Jul 20, 2019 at 09:16 Discharge Date: The medical record reflects the following clinical scenario: History/Risk Factors: Emphysema/COPD Chronic Bronchitis Clinical Findings: Pulse Ox 86% on room air at home. Blood gases pH 7.42, p02 60, Base excess 2.9, Pulse ox 94%, T 35.2, P 136, Resp 22, BP 148/94, WBC 9.1, Lactic acid 2.75 rising to 5.44, Respiratory distress, accessory muscle use. Treatment:IV Solu Medrol, breathing treatment, High Flow n/c 3 L. Question: Do you agree with the impression of the Acute Respiratory Failure with hypoxia per Dr. Joseph Jauregui? Please document a response in Progress Note or Discharge Summary. 1. Yes 2. No 3. Other, with explanation of clinical findings 4. Clinically undetermined, no explanation for clinical findings. PHYSICIAN RESPONSE Do you agree w/Consulting Dx?: Yes Explanation of clincal finding However, she converted in ED out of respiratory distress and was admitted for f urther steroid treatment. Will make note on chart. Please remember a lack of response to the above will prompt a phone page by [facility]/Coding staff. In responding to this query, please exercise your independent professional judgment. The purpose of this communication is to more accurately reflect the complexity of your patients condition. The fact that a question is asked does not imply that any particular answer is desired or expected. Thank you for your timely response to this clarification. Requestors name: Diane Eckert [facility] Phone # ext [phone] or [phone] THIS PHYSICIAN QUERY FORM IS A PERMANENT PART OF THE MEDICAL RECORD DIANE ECKERT Jul 21, 2019 14:27 LEAH WOLF MD Jul 22, 2019 08:42
--- NOTE | 2019-07-21 14:38 | Physician Query Clarification ---
PQ-Intro New Diagnosis Admission/Discharge Admission Date: Jul 20, 2019 at 09:16 Discharge Date: The medical record reflects the following clinical scenario: History/Risk Factors: Emphysema/COPD Chronic Bronchitis Clinical Findings: Lactic acid levels of 2.75 rising to 5.44. Treatment:Cefepime, Vancomycin, Ceftriaxone 1 g daily intravenous on the floor. Question: What condition best reflects the above clinical scenario? Please document a response in the Progress Noter or Discharge Summary. 1. Lactic acidosis. 2. Abnormal lab finding. 3. Other, with explanation of the clinical findings. 4. Clinically undetermined, no explanation for the clinical findings. PHYSICIAN RESPONSE What condition reflects above: Other, explanation/clinical finding Explanation of clincal finding I suspect her elevated lactic acid is due to prolonged and repeated albuterol usage. She is clinically not septic and cultures are negative to date. Please remember a lack of response to the above will prompt a phone page by [facility]/Coding staff. In responding to this query, please exercise your independent professional judgment. The purpose of this communication is to more accurately reflect the complexity of your patients condition. The fact that a question is asked does not imply that any particular answer is desired or expected. Thank you for your timely response to this clarification. Requestors name: Diane Eckert [facility], [facility] Phone # ext [phone] or [phone] THIS PHYSICIAN QUERY FORM IS A PERMANENT PART OF THE MEDICAL RECORD DIANE ECKERT Jul 21, 2019 14:37 LEAH WOLF MD Jul 22, 2019 08:31
[2019-07-21 16:00] VITALS: BP 113/76
[2019-07-21] MEDS: MONTELUKAST 10 MG (SINGULAIR) TAB PO SCH (19:56)
[2019-07-21 20:00] VITALS: BP 128/81
[2019-07-22] MEDS: methylPREDNISolone 40 MG/ML (Solu-MEDROL) VIAL IV SCH ×2 (00:11→07:58)
[2019-07-22 00:15] VITALS: BP 152/78
[2019-07-22] MEDS: RT-ALBUTEROL/IPRATROPIUM 3 ML (DUONEB) VIAL INH SCH ×5 (02:12→20:59)
[2019-07-22 04:00] VITALS: BP 134/75
[2019-07-22] MEDS: CATHETER FLUSH 10 ML SYR IV SCH ×3 (05:04→20:13)
[2019-07-22 06:05] LABS: BASOPHILS % (AUTO) 0 % (0-10); EOSINOPHILS % (AUTO) 0 % (0-10); HEMATOCRIT 39 % (35-52); HEMOGLOBIN 12.2 G/DL (11.5-16.0); LYMPHOCYTES # (AUTO) 0.9 X 10^3 (1.0-4.0); LYMPHOCYTES % (AUTO) 7 % (12-44); MEAN CORPUSCULAR HEMOGLOBIN 28 PG (25-34); MEAN CORPUSCULAR HGB CONC 32 G/DL (32-36); MEAN CORPUSCULAR VOLUME 88 FL (80-99); MEAN PLATELET VOLUME 8.9 FL (7.4-10.4); MONOCYTES # (AUTO) 0.6 X 10^3 (0.0-1.0); MONOCYTES % (AUTO) 4 % (0-12); NEUTROPHILS # (AUTO) 12.5 X 10^3 (1.8-7.8); NEUTROPHILS % (AUTO) 89 % (42-75); PLATELET COUNT 330 10^3/uL (130-400); RED CELL DISTRIBUTION WIDTH 15.8 % (10.0-14.5)
[2019-07-22] MEDS: KCL 20 MEQ TAB (K-DUR) PO SCH ×2 (07:59→20:13)
[2019-07-22] MEDS: PANTOPRAZOLE 40 MG (PROTONIX) TAB PO SCH (07:59)
[2019-07-22] MEDS: LORATADINE (CLARITIN) 10 MG TAB PO SCH (07:59)
[2019-07-22 08:00] VITALS: BP 149/85
--- NOTE | 2019-07-22 08:48 | Progress Note ---
Subjective Date Seen by a Provider: Jul 22, 2019 Time Seen by a Provider: 07:30 Subjective/Events-last exam patient reports having slight shortness of breath but overall better than yesterday. She was concerned about her lactic acid level. She has not been running any fever. She is tolerating regular diet. Focused Exam Lactate Level 07/21/19 03:10: Lactic Acid Level 3.55*H 07/21/19 05:12: Lactic Acid Level 3.36*H 07/22/19 05:50: Lactic Acid Level 3.04*H Lactic Acid Level Laboratory Tests Test 07/22/19 05:50 Lactic Acid Level 3.04 MMOL/L (0.50-2.00) *H Objective Exam Vital Signs Date Time Temp Pulse Resp B/P (MAP) Pulse Ox O2 Delivery O2 Flow Rate FiO2 07/22/19 04:00 36.6 80 18 134/75 (94) 96 Nasal Cannula 3.00 07/22/19 02:12 96 Nasal Cannula 3.00 07/22/19 01:00 92 07/22/19 00:15 36.6 94 18 152/78 (102) 97 Nasal Cannula 3.00 07/21/19 21:42 93 Nasal Cannula 3.00 07/21/19 20:00 36.6 92 20 128/81 (97) 96 Nasal Cannula 3.00 07/21/19 20:00 Nasal Cannula 3.00 07/21/19 19:00 99 07/21/19 18:30 Nasal Cannula 3.00 07/21/19 18:26 95 Nasal Cannula 3.00 07/21/19 16:00 36.5 91 20 113/76 (88) 96 Nasal Cannula 3.00 07/21/19 13:52 98 Nasal Cannula 3.00 07/21/19 13:00 80 07/21/19 12:00 36.6 89 20 140/90 (107) 94 Nasal Cannula 3.00 I & O 07/22/19 07:00 Intake Total 3690 ml Output Total 4100 ml Balance -410 ml Capillary Refill : Less Than 3 Seconds General Appearance: No Apparent Distress Respiratory: No Respiratory Distress; Wheezing (is mild) Cardiovascular: Regular Rate, Rhythm Gastrointestinal: soft Extremity: Normal Capillary Refill Neurologic/Psychiatric: Oriented x3 Skin: Normal Color Results Lab Laboratory Tests 07/22/19 05:50: White Blood Count 14.0H, Red Blood Count 4.36, Hemoglobin 12.2, Hematocrit 39, Mean Corpuscular Volume 88, Mean Corpuscular Hemoglobin 28, Mean Corpuscular Hemoglobin Concent 32, Red Cell Distribution Width 15.8H, Platelet Count 330, Mean Platelet Volume 8.9, Neutrophils (%) (Auto) 89H, Lymphocytes (%) (Auto) 7L, Monocytes (%) (Auto) 4, Eosinophils (%) (Auto) 0, Basophils (%) (Auto) 0, Neutrophils # (Auto) 12.5H, Lymphocytes # (Auto) 0.9L, Monocytes # (Auto) 0.6, Eosinophils # (Auto) 0.0, Basophils # (Auto) 0.0, Lactic Acid Level 3.04*H Microbiology 07/20/19 Blood Culture - Preliminary, Resulted No growth 07/20/19 Urine Culture - Preliminary, Resulted Culture In Progress 07/20/19 Influenza Types A,B Antigen (JAIDA) - Final, Complete Assessment/Plan Assessment/Plan Assess & Plan/Chief Complaint 1. COPD exacerbation with respiratory distress on presentation -patient will be receiving Solu-Medrol and breathing treatments per respiratory therapy 07/20 -continue solumedrol next 24 hours -suspect taper to prednisone tomorrow 07/21 -Will discontinue Solu-Medrol today and begin prednisone taper. Most likely will DC to home tomorrow provided she tolerates the switch to prednisone. 2. Hypoxemia secondary to #1 -Oxygen by nasal cannula to maintain saturations of oxygen above 93% 3. Elevated lactic acid -Patient has received cefepime as well as vancomycin in the emergency department. -We will await results of blood culture. -She will also be placed on ceftriaxone 1 g daily intravenous on the floor 07/20 -Level approaching 2 (currently 3.36) -recheck level next in the am of 07/21 07/21 -it appears that her elevated lactic acid level is due to beta agonist use/albuterol. There is no evidence for sepsis -At this point we'll discontinue checking lactic acid level. Clinical Quality Measures Admission Status Admission Dx 1. COPD exacerbation 2. Hypoxemia secondary to #1 3. Elevated lactic acid DVT/VTE Risk/Contraindication: Risk Factor Score Per Nursin RFS Level Per Nursing on Admit: 4+=Very High LEAH WOLF MD Jul 22, 2019 08:48
[2019-07-22] MEDS: RT-FLUTICASONE 220 MCG (FLOVENT) PER PUFF INH SCH ×2 (08:49→20:59)
[2019-07-22] MEDS ORDERED: predniSONE 20 MG TAB PO ONE (10:30)
[2019-07-22] MEDS ORDERED: predniSONE 20 MG TAB PO NR (10:30)
[2019-07-22 12:00] VITALS: BP 129/82
[2019-07-22] MEDS: cefTRIAXone FOR IV USE 1,000 MG in WATER (STERILE) FOR INJECTION 10 ML IV SCH (13:25)
[2019-07-22] MEDS: ENOXAPARIN 40 MG/0.4 ML (LOVENOX) SYR SC SCH (13:27)
[2019-07-22 15:45] VITALS: BP 125/67
[2019-07-22] MEDS ORDERED: warFARin 5 MG (COUMADIN) TAB PO SCH (18:00)
[2019-07-22] MEDS: MONTELUKAST 10 MG (SINGULAIR) TAB PO SCH (20:13)
[2019-07-23] MEDS: RT-ALBUTEROL/IPRATROPIUM 3 ML (DUONEB) VIAL INH SCH ×2 (00:30→03:38)
[2019-07-23 00:43] VITALS: BP 122/74
[2019-07-23] MEDS: CATHETER FLUSH 10 ML SYR IV SCH (05:53)
--- NOTE | 2019-07-23 06:38 | Discharge Summary ---
Diagnosis/Chief Complaint Date of Admission Jul 20, 2019 at 09:16 Date of Discharge July 23, 2019 Discharge Date: Jul 23, 2019 Discharge Time: 10:00 Admission Diagnosis Admission Diagnosis 1. COPD exacerbation 2. Hypoxemia secondary to #1 3. Elevated lactic acid -Exclusion of sepsis Discharge Diagnosis 1. COPD exacerbation with respiratory distress on presentation 2. Hypoxemia secondary to #1 3. Elevated lactic acid -Secondary to excessive beta agonist use Reason Hospital Visit 58-year-old female with known COPD and emphysema presents to emergency department via EMS after having a six-day history of exacerbation of her COPD. She denied any fever. We'll prompted her to come to emergency department via EMS was worsening shortness of breath despite having tapered steroids orally. She does take albuterol as well as dual neb treatments at home. She does admit to cough but not productive. There has been no significant fevers. She does take warfarin secondary to history of DVT and pulmonary embolism Discharge Summary Hospital Course Was the Problem List Reviewed?: Yes Hospital Course Patient was admitted on July 20, 2019 with COPD exacerbation with respiratory distress. She was initially noted to have respiratory distress in the emergency department. She had received measures in ED with Solu-Medrol to initially calm down her acute respiratory distress. Time patient was on floor her respiratory distress had improved. She was maintained on Solu-Medrol 80 mg IV every 8 hours. She continued on Solu-Medrol every 8 hours until the morning of July 22, 2019. To ensure she tolerated prednisone she was started on 60 mg in the morning with Solu-Medrol discontinuing. During the course of her stay she was also noted to have hypoxemia and this was corrected with nasal cannula oxygen. Respiratory therapy was also consult today and they provided breathing treatments as needed. She was found to have elevated lactic acid ordered by ED physician. Per protocol she had lactic acid level checked hourly until the value was less than 2. Unfortunately her value never decreased below 2 and her elevated lactic acid was felt to be secondary to excessive beta agonist use. Her blood culture was negative during the course of her stay. She had been placed on Rocephin on the floor on July 20, 2019. This was ultimately discontinued on her dismissal date of July 23, 2019. Discussion with patient in the morning of July 22 and she will follow up July 28, 2019 in office. Labs Laboratory Tests 07/20/19 07:42: Arterial Blood Partial Pressure O2 60L, Arterial Blood Base Excess 2.9H 07/20/19 07:44: Red Cell Distribution Width 15.7H, Eosinophils # (Auto) 0.4H, Prothrombin Time 21.2H, INR Comment 1.8H, Potassium Level 3.2L, Chloride Level 108H, Glucose Level 108H, Lactic Acid Level 2.75*H 07/20/19 07:50: 07/20/19 10:50: Lactic Acid Level 3.86*H 07/20/19 13:05: Lactic Acid Level 5.44*H 07/20/19 15:00: Lactic Acid Level 5.11*H 07/20/19 17:09: Lactic Acid Level 4.17*H 07/20/19 19:08: Lactic Acid Level 5.10*H 07/20/19 21:00: Lactic Acid Level 4.18*H 07/20/19 22:58: Lactic Acid Level 3.78*H 07/21/19 01:05: Lactic Acid Level 3.61*H 07/21/19 03:10: Lactic Acid Level 3.55*H, Red Blood Count 4.18L, Red Cell Distribution Width 15.9H, Neutrophils (%) (Auto) 85H, Lymphocytes (%) (Auto) 9L, Neutrophils # (Auto) 8.3H, Lymphocytes # (Auto) 0.9L, Prothrombin Time 22.9H, INR Comment 1.9H , Creatinine 0.59L, Glucose Level 144H 07/21/19 05:12: Lactic Acid Level 3.36*H 07/22/19 05:50: Lactic Acid Level 3.04*H, White Blood Count 14.0H, Red Cell Distribution Width 15.8H, Neutrophils (%) (Auto) 89H, Lymphocytes (%) (Auto) 7L, Neutrophils # (Auto) 12.5H, Lymphocytes # (Auto) 0.9L Procedures None. Discharge Physical Examination Allergies: Coded Allergies: aspirin (Verified Allergy, Severe, ANAPHYLAXIS, 03/03/19) ibuprofen (Verified Allergy, Severe, ANAPHYLAXIS, 03/03/19) ketorolac (Verified Allergy, Severe, ANAPHYLAXIS, 03/03/19) tetanus and diphtheria toxoids (Unverified Allergy, Severe, ANAPHYLAXIS, 03/03/19) aloe (Verified Allergy, Mild, RASH, 03/03/19) latex (Verified Allergy, Mild, RASH, 03/03/19) OCCASIONALLY IS IRRITATING SKIN scopolamine (Verified Allergy, Mild, 03/03/19) iodine (Verified Adverse Reaction, Unknown, 03/03/19) Patient states she got dizzy, diaphoretic and saw stars. Uncoded Allergies: ALOE VERA (Allergy, Unknown, 12/23/05) SILK SUTURES (Adverse Reaction, Unknown, BODY REJECTS SUTURES, 10/07/13) Vitals & I&Os Vital Signs Date Time Temp Pulse Resp B/P (MAP) Pulse Ox O2 Delivery O2 Flow Rate FiO2 07/23/19 00:43 36.3 94 20 122/74 (90) 98 Nasal Cannula 3.00 General Appearance: No Acute Distress Respiratory: Clear to Auscultation (With no obvious expiratory wheezing) Cardiovascular: Regular Rate Abdominal: Soft Extremities: No Clubbing Skin: No Rashes Psych/Mental Status: Mental Status NL Discussion & Recommendations In the a.m. of July 23, 2019 with discussed measures to keep her from having respiratory distress. She is reluctant to utilize any oral low dose prednisone on a daily basis. She continues to as she states faithfully take her steroid inhaler along with ipratropium as well as the when necessary albuterol. Discharge Home Medications Reviewed and agree with Discharge Medication list on patient's Discharge Instruction sheet Instructions to Patient/Family Please see electronic discharge instructions given to patient. Clinical Quality Measures DVT/VTE Risk/Contraindication: Risk Factor Score Per Nursin RFS Level Per Nursing on Admit: 4+=Very High LEAH WOLF MD Jul 23, 2019 06:38
--- NOTE | 2019-07-23 06:46 | Discharge Inst-Simple/Standard ---
Discharge Inst-Standard Reconcile Patient Problems Problems Reviewed?: Yes Discharge Medications New, Converted or Re-Newed RX: Other Patient Instructions/Follow Up Plan of Care/Instructions/FU: Dr Wolf on July 27 Activity as Tolerated: Yes Discharge Diet: Regular Diet Return to The Hospital For: Worsening shortness of breath or difficulty breathing. LEAH WOLF MD Jul 23, 2019 06:46
[2019-07-23] MEDS: LORATADINE (CLARITIN) 10 MG TAB PO SCH (07:59)
[2019-07-23] MEDS: PANTOPRAZOLE 40 MG (PROTONIX) TAB PO SCH (07:59)
[2019-07-23] MEDS: KCL 20 MEQ TAB (K-DUR) PO SCH (07:59)
[2019-07-23 08:00] VITALS: BP 132/80
[2019-07-23 11:25] VITALS: BP 132/80
== END 2019-07-23 11:25 | disposition home or self-care (01) | DRG 189 ==
LOC: EDUNIT# 07:35 → ER 07:37 → 4TH 09:16
PROVIDERS: ADMIT Family Medicine; ATTEND Family Medicine
DX: J96.01 Acute respiratory failure with hypoxia (principal); J44.1 Chronic obstructive pulmonary disease with (acute) exacerbation; I10 Essential (primary) hypertension; E87.2 Acidosis; I73.9 Peripheral vascular disease, unspecified; K44.9 Diaphragmatic hernia without obstruction or gangrene; G62.9 Polyneuropathy, unspecified; I48.91 Unspecified atrial fibrillation; K21.9 Gastro-esophageal reflux disease without esophagitis; K75.9 Inflammatory liver disease, unspecified; F41.9 Anxiety disorder, unspecified; R73.03 Prediabetes; I87.2 Venous insufficiency (chronic) (peripheral); E78.00 Pure hypercholesterolemia, unspecified; K58.9 Irritable bowel syndrome, unspecified; M19.91 Primary osteoarthritis, unspecified site; Z99.81 Dependence on supplemental oxygen; Z87.891 Personal history of nicotine dependence; Z79.01 Long term (current) use of anticoagulants; Z95.828 Presence of other vascular implants and grafts; Z86.711 Personal history of pulmonary embolism; Z86.718 Personal history of other venous thrombosis and embolism; T48.6X5A Adverse effect of antiasthmatics, initial encounter; K52.9 Noninfective gastroenteritis and colitis, unspecified; Z87.442 Personal history of urinary calculi; Z87.440 Personal history of urinary (tract) infections; Z90.710 Acquired absence of both cervix and uterus
CPT/HCPCS: 36415; 71045; 80053; 81000; 82805; 83605; 83735; 83880; 85025; 85610; 85730; 86141; 87040; 87088; 87804; 93005; 94640; 94760

== ENCOUNTER → 2019-11-19 | Outpatient (CLI) | payer MEDICAID ==
[~2019-11-19] MED LIST changes: +EPIN0.3P2 IJ; +HYDR-4196 PO; -PROM118S4 PO; +PROM118S5 PO; -WARF5TAB8 PO
--- NOTE | 2019-11-19 10:50 | Diagnostic Imaging Report ---
INDICATION: Right-sided chest pain. Time of exam 10:43 AM Correlation is made with prior chest from 07/21/2019. Heart size normal. Lungs are hyperinflated consistent with COPD. No infiltrates are detected. There is no effusion or pneumothorax. IMPRESSION: COPD. No acute feature is detected. Dictated by: Dictated on workstation # [id number]
--- NOTE | 2019-11-19 16:17 | Diagnostic Imaging Report ---
INDICATION: Routine screening. COMPARISON is made with prior mammograms from 08/14/2018 and 12/10/2016. 2-D and 3-D bilateral screening mammography was performed with CAD. Scattered fibroglandular densities are identified bilaterally. The parenchymal pattern is stable. No mass or malignant appearing microcalcifications are identified. Axillae are unremarkable. IMPRESSION: BI-RADS Category 1 No mammographic features suspicious for malignancy are identified. Dictated by: Dictated on workstation # [id number]
== END ==
LOC: RAD 10:11
PROVIDERS: ATTEND Family Medicine
DX: Z12.31 Encounter for screening mammogram for malignant neoplasm of breast (principal); J44.9 Chronic obstructive pulmonary disease, unspecified
CPT/HCPCS: 71046; 77063; 77067

== ENCOUNTER 2019-12-03 18:21 | Emergency (ER) | payer MEDICAID ==
[~2019-12-03] VITALS: Ht 165 cm; Wt 98.8 kg
[2019-12-03 19:20] LABS: BILIRUBIN,URINE NEGATIVE (NEGATIVE); CLARITY,URINE CLEAR; COLOR,URINE YELLOW; GLUCOSE, URINE (UA) NEGATIVE (NEGATIVE); KETONES,URINE NEGATIVE (NEGATIVE); LEUKOCYTE ESTERASE ,URINE NEGATIVE (NEGATIVE); NITRITE,URINE NEGATIVE (NEGATIVE); PROTEIN,URINE NEGATIVE (NEGATIVE)
--- NOTE | 2019-12-03 19:36 | ED Back Pain ---
General Chief Complaint: Back Problems Stated Complaint: LOWER BACK PAIN Nursing Triage Note: patient complaints of low back pain Nursing Sepsis Screen: No Definite Risk Source of Information: Patient Exam Limitations: No Limitations History of Present Illness Date Seen by Provider: Dec 03, 2019 Time Seen by Provider: 18:53 Initial Comments This 59-year-old woman presents to the emergency room with exacerbation of lower back pain. She reports difficulty getting out of a recliner earlier today. She slept in a recliner last night which is not unusual for her. She denies any urinary changes but does have some mild chronic right lower quadrant pain. This is been present for over a year. She is on chronic steroid therapy for COPD. She denies any unilateral weakness in her legs, pain shooting down her legs, constipation or diarrhea, or saddle paresthesias. She is ambulatory. She remembers having pain in her lower back when she previously had DVTs. She reports her INR on June 09 was 2.9 and she remains on warfarin. She has chronic swelling and weeping of her legs but no significant acute change. Allergies and Home Medications Allergies Coded Allergies: aspirin (Verified Allergy, Severe, ANAPHYLAXIS, 03/03/19) ibuprofen (Verified Allergy, Severe, ANAPHYLAXIS, 03/03/19) ketorolac (Verified Allergy, Severe, ANAPHYLAXIS, 03/03/19) tetanus and diphtheria toxoids (Unverified Allergy, Severe, ANAPHYLAXIS, 03/03/19) aloe (Verified Allergy, Mild, RASH, 03/03/19) latex (Verified Allergy, Mild, RASH, 03/03/19) OCCASIONALLY IS IRRITATING SKIN scopolamine (Verified Allergy, Mild, 03/03/19) iodine (Verified Adverse Reaction, Unknown, 03/03/19) Patient states she got dizzy, diaphoretic and saw stars. Uncoded Allergies: ALOE VERA (Allergy, Unknown, 12/23/05) SILK SUTURES (Adverse Reaction, Unknown, BODY REJECTS SUTURES, 10/07/13) Home Medications Albuterol Sulfate 8.5 Gm Hfa.aer.ad, 2 PUFF IH Q4H PRN for SHORTNESS OF BREATH, (Reported) Albuterol Sulfate 2.5 Mg/3 Ml Vial.neb, 2.5 MG NEB Q2H PRN for SHORTNESS OF BREATH, (Reported) Alprazolam 1 Mg Tablet, 1 MG PO BID PRN for ANXIETY, (Reported) Calcium Carbonate/Vitamin D3 1 Each Tablet, 1 TAB PO BID, (Reported) Epinephrine 0.3 Mg/0.3 Ml Auto.injct, 0.3 MG IJ PRN, (Reported) Fluticasone Propionate 1 Ea Aero, 2 PUFF INH BID, (Reported) Furosemide 40 Mg Tablet, 40 MG PO DAILY, (Reported) Hydrocodone/Acetaminophen 1 Each Tablet, 1 TAB PO Q6- 8H PRN for PAIN-MODERATE (5-7), (Reported) Hyoscyamine Sulfate 0.125 Mg Tab.rapdis, 0.125 MG SL Q6H PRN for ABDOMINAL PAIN, (Reported) Ipratropium [place] 0.2 Mg/1 Ml Solution, 1 VIAL NEB TID, (Reported) MIXES WITH ALBUTEROL SOLUTION Loratadine 10 Mg Tablet, 10 MG PO DAILY, (Reported) Montelukast Sodium 10 Mg Tablet, 10 MG PO HS, (Reported) Oxycodone HCl/Acetaminophen 1 Each Tablet, 1-2 TAB PO Q4H PRN for PAIN-MODERATE (5-7) Prescribed by: ALVA LAMAR on 12/03/192010 Pantoprazole Sodium 40 Mg Tablet.dr, 40 MG PO DAILY, (Reported) Potassium Chloride 10 Meq Tablet.er, 20 MEQ PO BID, (Reported) TAKES 2 (10MEQ) TABLETS Prednisone 20 Mg Tab, 20 MG PO UD, (Reported) ON TAPER DOSE 3 TABS X 3 DAYS, THEN 2 TABS X 3 DAYS, THEN 1 T X 3 DAYS= PT IS JUST STARTING THEN 1 TAB X 3 DAYS Promethazine HCl 25 Mg Tablet, 25 MG PO Q6H PRN for NAUSEA/VOMITING-2ND LINE, (Reported) Warfarin Sodium 4 Mg Tablet, 4 MG PO MO,,,FR,SA@1800, (Reported) Warfarin Sodium 5 Mg Tablet, 5 MG PO SAT,SAT @1800, (Reported) Patient Home Medication List Home Medication List Reviewed: Yes Review of Systems Constitutional: no symptoms reported EENTM: no symptoms reported Respiratory: see HPI Cardiovascular: see HPI Gastrointestinal: see HPI 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: no symptoms reported : No Musculoskeletal: see HPI Skin: see HPI Psychiatric/Neurological: No Symptoms Reported Past Ofopcyn-Iqbwig-Spgoze Hx Past Med/Social Hx: Reviewed Nursing Past Med/Soc Hx Patient Social History Alcohol Use: Denies Use Recreational Drug Use: No (15 yrs ago---IV drug user including Cocaine-CLEAN SINCE 1994) Drug of Choice: + IV COCAINE USE Smoking Status: Former Smoker Type Used: Cigarettes Former Smoker, Quit: Nov 17, 2000 2nd Hand Smoke Exposure: No Recent Foreign Travel: No Contact w/Someone Who Travel: No Recent Infectious Disease Expo: No Recent Hopitalizations: Yes (05/21/19 knee sx) Physical Abuse: No Sexual Abuse: No Mistreated: No Fear: No Immunizations Up To Date Tetanus Booster (TDap): Unknown PED Vaccines UTD: No Date of Pneumonia Vaccine: Sep 05, 2016 Date of Influenza Vaccine: Mar 11, 2012 Seasonal Allergies Seasonal Allergies: Yes Past Medical History Surgeries: Yes (C/S X2, KNEE SCOPE, SHOULDER SCOPE, d&C, BILAT ULNAR NERVE, VENA CAVA FILTE) Abdominal, Adenoidectomy, Section, Gallbladder, Hysterectomy, Orthopedic, Tonsillectomy, Tubal Ligation, Vascular Surgery Respiratory: Yes (O2 AT HS 2-3L/NC AND PRN--NOCTURNAL HYPOXIA; ) Asthma, Pneumonia, Chronic Bronchitis, Pulmonary Embolism, COPD Currently Using CPAP: No Currently Using BIPAP: No Cardiac: Yes Chronic Edema/Swelling, Deep Vein Thrombosis, High Cholesterol, Hypertension, Peripheral Vascular Neurological: Yes Neuropathy 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 Disorders: No 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 Disorders: 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, 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 Sexually Transmitted Disease: No HIV/AIDS: No 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: Yes Kidney Infection, Bladder Infection, Kidney Stones Gastrointestinal: Yes (MULTIPLE HERNIA REPAIRS; MULTIPLE EGD'S /COLONOSCOPIES/POLYPECTOMIES) Abdominal Hernia, Gastroesophageal Reflux, Chronic Constipation, Chronic Diarrhea, Hepatitis, Polyps, Hiatal Hernia, Irritable Bowel Musculoskeletal: Yes Arthritis Endocrine: Yes ("PRE-DIABETIC" ) HEENT: Yes (NASAL POLYPS REMOVED) Cataract Loss of Vision: Denies Hearing Impairment: Denies Cancer: No Did You Recieve Any Treatments: No Psychosocial: Yes Anxiety Integumentary: Yes (CHRONIC VENOUS STASIS DERMATITIS AND ULCERS. ) Recent Skin Changes Blood Disorders: Yes (DVT'S/PE'S; PROBABLE PROTEIN C DEFICIENCY) Adverse Reaction/Blood Tranf: No (HAS HAD BLOOD WITH NO PROBLEMS) Family Medical History Reviewed Nursing Family Hx Alcoholism Alcoholism Arthritis Asthma 19 MOTHER Cancer G8 BROTHER G8 SISTER Cancer of colon Cancer of mouth Cardiovascular disease Cataract Cataracts Chest pain Colon cancer Completed stroke Diabetes mellitus Family history: Allergy Family history: Arthritis Family history: Asthma Family history: Cardiovascular disease Family history: Coronary thrombosis Family history: Diabetes mellitus G8 BROTHER G8 SISTER Family history: Gastrointestinal disease Family history: Hypertension Family history: Thyroid disorder Headache Hearing loss Heart disease 19 MOTHER History of - anemia History of - respiratory disease Hypercholesterolemia Hypercholesterolemia Hypertension 19 FATHER Infertile Malignant neoplasm of lung Myocardial infarction Myocardial infarction Psychotic disorder Respiratory disorder Stroke No Family History of: AIDS Abdominal aortic aneurysm Abdominal aortic aneurysm Fernando's disease Fernando's disease Alzheimer's disease Aphasia Aphasia Congenital disease Congenital heart disease Congenital heart disease Congestive heart failure Coronary thrombosis Cystic fibrosis Cystic fibrosis Deafness or hearing loss Dementia Dementia Drug abuse Dysphagia Dysphasia Family history: Alzheimer's disease Family history: Breast disease Family history: Glaucoma Family history: Osteoporosis Fibrocystic disease of breast Gastroenteritis Glaucoma Headache disorder Hereditary disease History of - disorder History of drug abuse Human immunodeficiency virus (HIV) seropositivity Infertility Kidney disease Kidney disease Neoplasm Not obtainable due to adoption Osteoporosis Parkinson's disease Parkinson's disease Prostate cancer Psychosocial problem Seizure disorder Seizure disorder Severe allergy Thyroid disease Tuberculosis Tuberculosis Visual disorder Visual impairment Cancer, COPD, Vascular Disease Physical Exam Vital Signs Vital Signs - First Documented 12/03/19 18:55 Temp 37.0 Pulse 111 Resp 20 B/P (MAP) 174/106 (128) Pulse Ox 94 O2 Delivery Room Air Capillary Refill : Less Than 3 Seconds Height, Weight, BMI Height: 5'5.00" Weight: 184lbs. 5.0oz. 83.143272ws; 36.00 BMI Method:Stated General Appearance: No Apparent Distress, WD/WN, Obese HEENT: PERRL/EOMI, Normal ENT Inspection Neck: Normal Inspection Cardiovascular: Regular Rate, Rhythm, No Edema, No Murmur Respiratory: Lungs Clear, Normal Breath Sounds, No Accessory Muscle Use, No Respiratory Distress Gastrointestinal: Normal Bowel Sounds, Non Tender, Soft Extremity: Swelling, Other (chronic edema and skin changes. 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 Norm as Tested Skin: Normal Color, Warm/Dry, Other (chronic skin changes to the lower legs) Progress/Results/Core Measures Results/Orders Lab Results Laboratory Tests Test 12/03/19 19:10 Range/Units Urine Color YELLOW Urine Clarity CLEAR Urine pH 6.0 5-9 Urine Specific [place] >=1.030 1.016-1.022 Urine Protein NEGATIVE NEGATIVE Urine Glucose (UA) NEGATIVE NEGATIVE Urine Ketones NEGATIVE NEGATIVE Urine Nitrite NEGATIVE NEGATIVE Urine Bilirubin NEGATIVE NEGATIVE Urine Urobilinogen 1.0 < = 1.0 MG/DL Urine Leukocyte Esterase NEGATIVE NEGATIVE Urine RBC (Auto) 2+ H NEGATIVE Urine RBC 5-10 H /HPF Urine WBC 2-5 /HPF Urine Squamous Epithelial Cells 2-5 /HPF Urine Crystals PRESENT H /LPF Urine Amorphous Sediment FEW MARLEN URATES H /LPF Urine Bacteria TRACE /HPF Urine Casts NONE /LPF Urine Mucus LARGE H /LPF Urine Culture Indicated NO My Orders Orders - ALVA BENJAMIN MD Ua Culture If Indicated (12/03/19 18:53) Vital Signs/I&O 12/03/19 12/03/19 18:55 20:18 Temp 37.0 37.0 Pulse 111 105 Resp 20 20 B/P (MAP) 174/106 (128) 135/100 Pulse Ox 94 96 O2 Delivery Room Air Room Air Blood Pressure Mean: 128 Progress Progress Note : Progress Note Urine demonstrated minimal blood. Pain seems to be more in the midline lower back rather than the flanks. Acute ureteral stone is considered not very li louisa, especially since her right lower quadrant abdominal pain is been present for at least a year. We discussed treatment options. Since patient cannot take NSAIDs due to warfarin use and is already on steroids, nonpharmacological therapies were recommended such as physical therapy. I also offered to increase her opioid therapies by changing hydrocodone to Percocet. Departure Impression Primary Impression: Low back pain Qualified Codes: M54.5 - Low back pain Additional Impression: Microscopic hematuria Disposition: 01 HOME, SELF-CARE Condition: Stable Departure-Patient Inst. Decision time for Depature: 20:08 Referrals: LEAH WOLF MD (PCP/Family) Primary Care Physician Patient Instructions: Low Back Pain in Adults Add. Discharge Instructions: Drink plenty of clear liquids to stay well-hydrated. Follow-up with your primary care provider soon as possible. You may increase your hydrocodone to 1.5-2 tablets every 4-6 hours. Then you may try Percocet as an alternative when he fell at tomorrow. Gentle heat may help your back relax. Return to the emergency room if you have worsening symptoms especially if you develop true weakness in your legs, numbness of the groin, or bowel or bladder control problems. The small amount of blood in your urine and may simply be due to your warfarin use. However, please discuss this with your primary care provider. All discharge instructions reviewed with patient and/or family. Voiced understanding. Scripts Oxycodone HCl/Acetaminophen (Percocet 5-325 mg Tablet) 1 Each Tablet 1-2 TAB PO Q4H PRN for PAIN-MODERATE (5-7) MDD 6 TABS, #10 TAB Prov: ALVA BENJAMIN MD 12/03/19 Copy Copies To 1: LEAH WOLF MD, JOSHUA T MD Dec 03, 2019 19:36
[2019-12-03 19:45] LABS: AMORPHOUS SEDIMENT,UR FEW AMOR URATES /LPF; BACTERIA,URINE TRACE /HPF
[2019-12-03] MEDS ORDERED: OXYC1TAB87 PO (20:10)
--- OUTSIDE RECORDS SUMMARY | 2019-12-03 20:13 | XMS REPORT | Clinical Summary ---
Author Author [facility] Organization [facility] Address Unknown Phone Unavailable Care Team Providers Care Blueprint Maker Name Role Phone Jay Rogers MD PCP Joshua Ku MD Unavailable Source Comments Some departments are not documenting in the electronic medical record. If you d o not see the information that you expected, contact Release of Information in [facility] [employer] Information Management department at [phone] for further assistan ce in locating additional records.[facility] Allergies Comments Active Allergy Reactions Severity Noted Date Aloe Vera REDNESS Low 04/29/2018 Aspirin ANAPHYLAXIS High 04/29/2018 [place] 7 BLISTERS High 09/23/2018 Ibuprofen ANAPHYLAXIS High 04/29/2018 Iodinated Contrast Media UNKNOWN Low 04/29 Ketorolac ANAPHYLAXIS High 04/29/2018 Latex REDNESS Low 04/29/2018 Tetanus And Diphtheria ANAPHYLAXIS High 018 Toxoids, Adsorbed, Adult Medications End Date Status [...] potassium chloride SR Take 20 mEq 5 01/10/20 1 (K-DUR) 20 mEq tablet by mouth 8 [...] veins of left lower extremity with other com plications 05/01/2018 Leg swelling 05/01/2018 Protein C deficiency 05/01/2018 Family History Medical History Relation Name Comments [...] drinks containing alcohol do you have on No t asked a typical day when you are [...] Health Maintenance Due Date Last Done Comments HIV SCREENING 1973 DTAP/TDAP VACCINES (1 - 1976 Tdap) HEPATITIS C SCREENING 1976 PHYSICAL (COMPREHENSIVE) 1976 EXAM CERVICAL CANCER SCREENING 08/23/1979 BREAST CANCER SCREENING 1998 COLORECTAL CANCER 2008 SCREENING SHINGLES RECOMBINANT 2008 VACCINE (1 of 2) INFLUENZA VACCINE 02/11/2020 Results Not on filefrom Last 3 Months Insurance Type Payer Benefit Subscriber ID Effective Phone Address Plan / Dates Group AETNA MEDICAID AETNA xxxxxxxxxxx [id number] [facility] Advance Directives Patient Ticket Clerk Explanation Type Date Recorded Advance Directive/DPOA
[2019-12-03 20:18] VITALS: BP 135/100
--- OUTSIDE RECORDS SUMMARY | 2019-12-03 20:26 | XMS REPORT | Continuity of Care Document ---
Author Organization Unknown Address Unknown Phone Unavailable Allergies Active Description Code Type Severity Reaction Onset Reported/Identified Relationship to Patient Clinical Status Yes ALOE VERA ALOE VERA Unknown N/A 12/23/2005 Yes aloe vera [id number] Drug Allergy Mild N/A 07/30/2011 Yes ketorolac [id number] Drug Allergy Unknown N/A 07/30/2011 Yes latex [id number] Drug Allergy Unknown N/A 10/07/2013 Yes SILK SUTURES SILK SUTURES Unknown BODY REJECTS NORTH 10/07/2013 Yes tetanus diphtheria toxoids [id number] Drug Allergy Unknown N/A 12/31/2013 Yes tetanus and diphtheria toxoids [id number] Drug Allergy Unknown N/A 12/31/2013 Yes acetaminophen [id number] Masood g Allergy Mild N/A 08/05/2017 Yes hydrocodone [id number] Drug Aller gy Mild N/A 08/07/2017 Yes aspirin [id number] Drug Allergy Severe ANAPHYLAXIS 03/03/2019 Yes ibuprofen [id number] Drug Allergy Severe ANAPHYLAXIS 03/03/2019 Yes ketorolac [id number] Drug Allergy Severe ANAPHYLAXIS 03/03/2019 Yes tetanus and diphtheria toxoids [id number] Drug Allergy Severe ANAPHYLAXIS 019 Yes Aloe [id number] Drug Allergy Mild RASH 03/03/2019 Yes latex [id number] Drug Allergy Mild RASH 03/03/2019 Yes scopolamine [id number] Drug Aller gy Mild N/A 03/03/2019 Yes iodine [id number] Drug Allergy Unknown N/A 03/03/2019 Medications There is no data. Problems Date [...] 799.02 08/09/2010 Ot V12.51 09/06/2010 Ot 272.4 HYPE RLIPIDEMIA NEC/NOS 09/06/2010 Ot 401.9 HYPE RTENSION NOS 09/06/2010 Ot 459.81 BECCA OUS INSUFFICIENCY NOS 09/06/2010 Ot 491.21 OBS TR CHRONIC BRONCHITIS, W (ACUTE) EXAC 09/06/2010 Ot V03.82 PRO PHYLACTIC VACC AGAINST STREPTOCOCCUS 09/06/2010 Ot V12.51 HX- VENOUS THROMBOSIS EMBOLISM 09/06/2010 Ot V12.79 PER NUNU HISTORY OTH SPEC DIGESTIVE SYST 09/06/2010 Ot V45.89 POS TSURGICAL STATES NEC 09/06/2010 Ot V58.61 ANTICOAGULANTS,LT,CURRENT USE 10/10/2010 Ot 536.8 STOM ACH FUNCTION DIS NEC 10/10/2010 Ot 789.06 ABD OMINAL PAIN, EPIGASTRIC 10/13/2010 Ot 491.21 OBS TR CHRONIC BRONCHITIS, W (ACUTE) EXAC 10/13/2010 Ot 786.05 MAKI RTNESS OF BREATH 10/30/2010 Ot 453.40 ACU TE VENOUS EMBOLISM THROMBOSIS UNSP 11/17/2010 Ot 782.3 EDEMA 11/17/2010 Ot V12.51 HX- VENOUS THROMBOSIS EMBOLISM 11/17/2010 Ot V57.21 ENC OUNTER FOR OCCUPATIONAL THERAPY 12/27/2010 Ot 493.90 AST HMA, UNSPECIFIED 12/27/2010 Ot 493.92 AST HMA, UNSPECIFIED, W (ACUTE) EXACERBAT 02/04/2011 Ot 453.40 ACU TE VENOUS EMBOLISM THROMBOSIS UNSP 02/21/2011 Ot 276.8 HYPO POTASSEMIA 02/21/2011 Ot 491.21 OBS TR CHRONIC BRONCHITIS, W (ACUTE) EXAC 02/21/2011 Ot 786.05 MAKI RTNESS OF BREATH 04/02/2011 Ot 276.8 HYPO POTASSEMIA 04/02/2011 Ot 491.21 OBS TR CHRONIC BRONCHITIS, W (ACUTE) EXAC 04/02/2011 Ot 786.05 MAKI RTNESS OF BREATH 05/08/2011 Ot 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 05/08/2011 Ot V58.61 ANTICOAGULANTS,LT,CURRENT USE 06/08/2011 Ot 276.8 HYPO POTASSEMIA 06/08/2011 Ot 401.9 HYPE RTENSION NOS 06/08/2011 Ot 473.9 PLASTIC CARD GRADER CARDROOM TETE SINUSITIS NOS 06/08/2011 Ot 491.22 OBS TRUCTIVE CHRONIC BRONCHITIS WITH ACUT 06/08/2011 Ot 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 ASTHMA, NOS 06/08/2011 Ot 564.1 IRRI TABLE BOWEL SYNDROME 06/08/2011 Ot V12.51 HX- VENOUS THROMBOSIS EMBOLISM 06/08/2011 Ot V12.55 PER NUNU HISTORY OF PULMONARY EMBOLISM 06/18/2011 Ot 825.25 FX METATARSAL- CLOSED 06/18/2011 Ot 959.7 LOWE R LEG INJURY NOS 06/18/2011 Ot E000.8 OTH ER EXTERNAL CAUSE STATUS 06/18/2011 Ot E001.0 ACT IVITIES INVOLVING WALKING, MARCHING A 06/18/2011 Ot E849.0 ACC IDENT IN HOME 06/18/2011 Ot E885.9 FAL L FROM SLIPPING, TRIPPING, OR STUMBLI 08/02/2011 Ot 276.8 HYPO POTASSEMIA 08/02/2011 Ot 401.9 HYPE RTENSION NOS 08/02/2011 Ot 490 BRONCH ITIS NOS 08/02/2011 Ot 493.22 CHR ONIC OBSTRUCTIVE ASTHMA, W (ACUTE) EX 08/02/2011 Ot V12.51 HX- VENOUS THROMBOSIS EMBOLISM 08/02/2011 Ot V12.55 PER NUNU HISTORY OF PULMONARY EMBOLISM 09/11/2011 Ot 491.21 OBS TR CHRONIC BRONCHITIS, W (ACUTE) EXAC 09/11/2011 Ot 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 ASTHMA, NOS 10/19/2011 Ot 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 10/19/2011 Ot 272.4 HYPE RLIPIDEMIA NEC/NOS 10/19/2011 Ot 276.8 HYPO POTASSEMIA 10/19/2011 Ot 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 10/19/2011 Ot 401.9 HYPE RTENSION NOS 10/19/2011 Ot 457.1 OTHE R LYMPHEDEMA 10/19/2011 Ot 477.9 GM RGIC RHINITIS NOS 10/19/2011 Ot 496 CHR AI RWAY OBSTRUCT NEC 10/19/2011 Ot 558.9 SHANIQUA NF GASTROENTERIT NEC 10/19/2011 Ot 599.0 URIN TRACT INFECTION NOS 10/19/2011 Ot V12.51 HX- VENOUS THROMBOSIS EMBOLISM 10/19/2011 Ot V12.72 PER NUNU HISTORY OF COLONIC POLYPS 10/19/2011 Ot V12.79 PER NUNU HISTORY OTH SPEC DIGESTIVE SYST 10/19/2011 Ot V58.61 ANTICOAGULANTS,LT,CURRENT USE 10/21/2011 Ot V12.51 HX- VENOUS THROMBOSIS EMBOLISM 10/21/2011 Ot V58.61 ANTICOAGULANTS,LT,CURRENT USE 11/01/2011 Ot 709.8 SKIN DISORDERS NEC 12/08/2011 Ot 276.8 HYPO POTASSEMIA 12/08/2011 Ot 786.09 RES PIRATORY ABNORM NEC 12/08/2011 Ot 789.06 ABD OMINAL PAIN, EPIGASTRIC 12/12/2011 Ot 491.21 OBS TR CHRONIC BRONCHITIS, W (ACUTE) EXAC 12/12/2011 Ot 786.05 MAKI RTNESS OF BREATH 02/05/2012 Ot V12.51 HX- VENOUS THROMBOSIS EMBOLISM 02/05/2012 Ot V58.61 ANTICOAGULANTS,LT,CURRENT USE 03/31/2012 Ot 300.00 ANX IETY STATE NOS 03/31/2012 Ot 429.3 CARD IOMEGALY 03/31/2012 Ot 785.1 PALP ITATIONS 05/13/2012 Ot V12.51 HX- VENOUS THROMBOSIS EMBOLISM 05/13/2012 Ot V58.61 ANTICOAGULANTS,LT,CURRENT USE 05/13/2012 Ot 401.9 HYPE RTENSION NOS 05/13/2012 Ot 780.2 SYNC OPE AND COLLAPSE 05/13/2012 Ot 780.4 DIZZ INESS AND GIDDINESS 07/02/2012 Ot V12.51 HX- VENOUS THROMBOSIS EMBOLISM 07/02/2012 Ot V57.21 ENC OUNTER FOR OCCUPATIONAL THERAPY 07/18/2012 Ot 112.0 THRUSH 07/18/2012 Ot 276.8 HYPO POTASSEMIA 07/18/2012 Ot 401.9 HYPE RTENSION NOS 07/18/2012 Ot 486 PNEUMO JERRY, ORGANISM NOS 07/18/2012 Ot 493.00 EXT RINSIC ASTHMA, NOS 07/18/2012 Ot 780.2 SYNC OPE AND COLLAPSE 07/18/2012 Ot 790.92 COA GULATION PROFILE, ABNORMAL 07/18/2012 Ot V12.55 PER NUNU HISTORY OF PULMONARY EMBOLISM 07/18/2012 Ot V15.82 HIS TORY OF TOBACCO USE 07/18/2012 Ot V58.61 ANTICOAGULANTS,LT,CURRENT USE 08/15/2012 Ot 466.0 ACUT E BRONCHITIS 08/15/2012 Ot 472.0 PLASTIC CARD GRADER CARDROOM TETE RHINITIS 08/15/2012 Ot 786.2 COUGH 08/21/2012 Ot V12.51 HX- VENOUS THROMBOSIS EMBOLISM 08/21/2012 Ot V12.55 PER NUNU HISTORY OF PULMONARY EMBOLISM 09/24/2012 SHEILA FARRIS MD Ot 443 .9 PERIPH VASCULAR DIS NOS 09/24/2012 SHEILA FARRIS MD Ot 454 .8 VARICOSE VEINS LOWER EXTREM W OTHER COMP 09/27/2012 STEPHANIE ECKERT DO Ot 729.81 SWELLING OF LIMB 09/27/2012 STEPHANIE ECKERT DO Ot 998.32 DISRUPTION OF EXTERNAL OPERATION (SURGIC 09/27/2012 STEPHANIE ECKERT DO Ot 998.59 OTH POSTOPER INFECTION 09/29/2012 LEAH WOLF MD Ot 300. 00 ANXIETY STATE NOS 09/29/2012 LEAH WOLF MD Ot 454. 9 ASYMPTOMATIC VARICOSE VEINS 09/29/2012 LEAH WOLF MD Ot 459. 81 VENOUS INSUFFICIENCY NOS 09/29/2012 LEAH WOLF MD Ot 491. 20 OBSTR CHRONIC BRONCHITIS, W/O EXACERBATI 09/29/2012 LEAH WOLF MD Ot 729. 81 SWELLING OF LIMB 09/29/2012 LEAH WOLF MD, Ot V12. 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 EMBOLISM 09/29/2012 LEAH WOLF MD Ot V12. 61 PERSONAL HISTORY, PNEUMONIA (RECURRENT) 10/24/2012 RAJESH TOWNSEND MD Ot 682. 6 CELLULITIS OF LEG 10/24/2012 RAJESH TOWNSEND MD Ot 729. 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 EMBOLISM 11/20/2012 LEAH WOLF MD Ot V12. 55 PERSONAL HISTORY OF PULMONARY EMBOLISM 12/28/2012 KALEIGH ROSARIO, SHEILA Nicolas Ot 686 .9 LOCAL SKIN INFECTION NOS 02/19/2013 IZABELA MCCLAIN Ot 454.9 ASYMPTOMATIC VARICOSE VEINS 02/19/2013 IZABELA MCCLAIN Ot 998.83 NON-HEALING SURG WOUND 02/19/2013 IZABELA MCCLAIN Ot 998.89 OTHER SPEC COMPLICATIONS OF PROCEDURES N 03/01/2013 LEAH WOLF MD Ot 453. 40 ACUTE VENOUS EMBOLISM THROMBOSIS UNSP 03/01/2013 LEAH WOLF MD, Ot V58. 61 ANTICOAGULANTS,LT,CURRENT USE 04/08/2013 HOWARD HUGHES MD Ot 354.1 MEDIAN NERVE LESION NEC 04/08/2013 HOWARD HUGHES MD Ot V58.61 ANTICOAGULANTS,LT,CURRENT USE 04/14/2013 LEAH WOLF MD Ot 724. 1 PAIN IN THORACIC SPINE 04/14/2013 LEAH WOLF MD Ot 724. 2 LUMBAGO 04/14/2013 LEAH WOLF MD Ot V57. 1 PHYSICAL THERAPY NEC 04/20/2013 DEE DEE MALHOTRA Ot 455.6 HEMORRHOIDS NOS 04/20/2013 DEE DEE MALHOTRA Ot 564.00 UNSPEC CONSTIPATION 04/20/2013 DEE DEE MALHOTRA Ot 578.1 BLOOD IN STOOL 05/17/2013 KAMRAN LINDQUIST APRN Ot 486 PNEUMONIA, ORGANISM NOS 05/17/2013 KAMRAN LINDQUIST APRN Ot 786.05 SHORTNESS OF BREATH 06/21/2013 LEAH WOLF MD Ot 453. 40 ACUTE VENOUS EMBOLISM THROMBOSIS UNSP 06/21/2013 LEAH WOLF MD Ot V58. 61 ANTICOAGULANTS,LT,CURRENT USE 07/02/2013 LEAH WOLF MD Ot 300. 00 ANXIETY STATE NOS 07/02/2013 LEAH WOLF MD Ot 401. 9 HYPERTENSION NOS 07/02/2013 LEAH WOLF MD Ot 443. 9 PERIPH VASCULAR DIS NOS 07/02/2013 LEAH WOLF MD Ot 491. 21 OBSTR CHRONIC BRONCHITIS, W (ACUTE) EXAC 07/02/2013 LEAH WOLF MD Ot 564. 09 OTHER CONSTIPATION 07/02/2013 LEAH WOLF MD Ot 564. 1 IRRITABLE BOWEL SYNDROME 07/02/2013 LEAH WOLF MD Ot 716. 90 ARTHROPATHY NOS-UNSPEC 07/02/2013 LEAH WOLF MD Ot 786. 2 COUGH 07/02/2013 LEAH WOLF MD Ot 799. 02 HYPOXEMIA 07/02/2013 LEAH WOLF MD Ot V12. 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 EMBOLISM 07/02/2013 LEAH WOLF MD Ot V12. 55 PERSONAL HISTORY OF PULMONARY EMBOLISM 07/02/2013 LEAH WOLF MD Ot V15. 82 HISTORY OF TOBACCO USE 07/22/2013 KAMRAN LINDQUIST APRN Ot 729.81 SWELLING OF LIMB 07/22/2013 LINDQUIST, PETER J PHARMACEUTICAL SPECIALTY REPRESENTATIVE Ot 782 .3 EDEMA 08/18/2013 ALVA BENJAMIN MD Ot 473.9 CHRONIC SINUSITIS NOS 08/18/2013 ALVA BENJAMIN MD Ot 491.21 OBSTR CHRONIC BRONCHITIS, W (ACUTE) EXAC 08/18/2013 AVLA BENJAMIN MD Ot 786.05 SHORTNESS OF BREATH [...] PULMONARY EMBOLISM 11/03/2013 LEAH WOLF MD Ot 782. 3 EDEMA 12/03/2013 LEAH WOLF MD Ot 453. 40 ACUTE VENOUS EMBOLISM THROMBOSIS UNSP 12/03/2013 LEAH WOLF MD Ot V58. 61 ANTICOAGULANTS,LT,CURRENT USE 12/17/2013 LEAH WOLF MD Ot 995. 0 OTHER ANAPHYLACTIC REACTION 12/17/2013 LEAH WOLF MD, Ot E948 .6 ADV EFF PERTUSSIS VACCIN 12/19/2013 KAMRAN LINDQUIST APRN Ot 845.00 SPRAIN OF ANKLE NOS 12/19/2013 KAMRAN LINDQUIST APRN Ot E927.0 OVEREXERTION FROM SUDDEN STRENUOUS MOVEM 12/31/2013 ANDRES HOWE MD Ot 682.6 CELLULITIS OF LEG 12/31/2013 ANDRES HOWE MD Ot 729.5 PAIN IN LIMB 12/31/2013 ANDRES HOWE MD Ot V12.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 EMBOLISM 12/31/2013 ANDRES HOWE MD Ot V58.61 ANTICOAGULANTS,LT,CURRENT USE 12/31/2013 ANDRES HOWE MD Ot V58.69 OTH MED,LT,CURRENT USE 01/04/2014 STEPHANIE ECKERT DO Ot 112.0 THRUSH 01/04/2014 STEPHANIE ECKERT DO Ot 459.81 VENOUS INSUFFICIENCY NOS 01/04/2014 STEPHANIE ECKERT DO Ot 682.6 CELLULITIS OF LEG 01/04/2014 STEPHANIE ECKERT DO Ot 707.10 ULCER OF LOWER LIMB NOS 01/29/2014 LEAH WOLF MD Ot 305. 1 TOBACCO USE DISORDER 01/29/2014 LEAH WOLF MD Ot 401. 9 HYPERTENSION NOS 01/29/2014 LEAH WOLF MD Ot 493. 90 ASTHMA, UNSPECIFIED 01/29/2014 LEAH WOLF MD Ot 682. 6 CELLULITIS OF LEG 01/29/2014 LEAH WOLF MD Ot V12. 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 EMBOLISM 01/29/2014 LEAH WOLF MD, Ot V12. 55 PERSONAL HISTORY OF PULMONARY EMBOLISM 03/10/2014 ALVA BENJAMIN MD Ot 465.9 ACUTE URI NOS 03/10/2014 ALVA BENJAMIN MD Ot 491.21 OBSTR CHRONIC BRONCHITIS, W (ACUTE) EXAC 03/10/2014 ALVA BENJAMIN MD Ot 786.2 COUGH 03/17/2014 LEAH WOLF MD Ot 724. 3 SCIATICA 03/17/2014 LEAH WOLF MD, Ot V57. 1 PHYSICAL THERAPY NEC 03/18/2014 KAMRAN LINDQUIST APRN Ot 491.21 OBSTR CHRONIC BRONCHITIS, W (ACUTE) EXAC 03/18/2014 KAMRAN LINDQUIST APRN Ot 786.05 SHORTNESS OF BREATH 04/01/2014 LEAH WOLF MD Ot 453. 40 04/01/2014 LEAH WOLF MD, Ot V58. 61 04/19/2014 AKIKO NAVARRO Ot 272.4 04/26/2014 ALVA BENJAMIN MD Ot 382.9 OTITIS MEDIA NOS 04/26/2014 ALVA BENJAMIN MD Ot 388.70 OTALGIA NOS 04/29/2014 LEAH WOLF MD, Ot V58. 62 ENCOUNT FOR LONG-TERM(CURRENT) USE OF AN 04/29/2014 LEAH WOLF MD, Ot V58. 83 ENCOUNTER FOR THERAPEUTIC DRUG MONITORIN 05/03/2014 AKIKO NAVARRO Ot 272.4 05/24/2014 LEAH WOLF MD, Ot 453. 40 ACUTE VENOUS EMBOLISM THROMBOSIS UNSP 05/24/2014 LEAH WOLF MD, Ot V58. 61 ANTICOAGULANTS,LT,CURRENT USE 06/07/2014 LEAH WOLF MD, Ot 453. 40 06/07/2014 LEAH WOLF MD, Ot V58. 61 06/08/2014 LEAH WOLF MD, Ot 453. 40 06/08/2014 LEAH WOLF MD, Ot V58. 61 06/08/2014 LEAH WOLF MD Ot 453. 40 06/08/2014 LEAH WOLF MD, Ot V58. 61 06/16/2014 KAMRAN LINDQUIST APRN Ot 491.21 OBSTR CHRONIC BRONCHITIS, W (ACUTE) EXAC 06/16/2014 KAMRAN LINDQUIST APRN Ot 786 .2 COUGH 06/28/2014 LEAH WOLF MD Ot 453. 40 06/28/2014 LEAH WOLF MD, Ot V58. 61 07/24/2014 Ot 272.0 PURE HYPERCHOLESTEROLEM 07/24/2014 Ot 401.9 HYPE RTENSION NOS 07/24/2014 Ot 491.21 OBS TR CHRONIC BRONCHITIS, W (ACUTE) EXAC 07/24/2014 Ot 530.81 ESO PHAGEAL REFLUX 07/24/2014 Ot 799.02 HYP OXEMIA 07/24/2014 Ot V12.51 HX- VENOUS THROMBOSIS EMBOLISM 08/13/2014 LEAH WOLF MD Ot 453. 40 ACUTE VENOUS EMBOLISM THROMBOSIS UNSP 08/13/2014 LEAH WOLF MD, Ot 453. 40 ACUTE VENOUS EMBOLISM THROMBOSIS UNSP 08/13/2014 LEAH WOLF MD, Ot V58. 61 ANTICOAGULANTS,LT,CURRENT USE 08/27/2014 LEAH WOLF MD, Ot V58. 61 08/27/2014 LEAH WOLF MD, Ot V58. 83 09/08/2014 TEDDY PHILIP MD Ot 401.9 HYPERTENSION [...] 09/09/2014 Ot 780.4 09/09/2014 Ot 272.4 09/09/2014 SHEILA FARRIS MD Ot 454 .9 09/09/2014 KIRAN GREER AVIATION MANAGER Ot 286.9 09/09/2014 KIRAN GREER AVIATION MANAGER Ot 4 96 09/09/2014 KIRAN GREER AVIATION MANAGER Ot 564.1 09/09/2014 KIRAN GREER AVIATION MANAGER Ot 585.3 09/09/2014 KIRAN GREER AVIATION MANAGER Ot V12.51 09/09/2014 KIRAN GREER AVIATION MANAGER Ot V12.55 09/09/2014 KIRAN GREER AVIATION MANAGER Ot V58.61 09/09/2014 KIRAN GREER AVIATION MANAGER Ot V58.69 09/09/2014 LUCIANO ROSARIO, LEAH Jacome Ot 611. 71 09/09/2014 LUCIANO ROSARIO, LEAH Jacome Ot 611. 72 09/09/2014 LUCIANO ROSARIO, LEAH Jacome Ot 786. 05 09/09/2014 Ot V12.51 09/09/2014 Ot V12.55 09/09/2014 Ot 686.9 09/09/2014 LUCIANO ROSARIO, LEAH Jacome Ot 724. 2 09/09/2014 LUCIANO ROSARIO, LEAH Jacome Ot 721. 3 09/09/2014 Ot 454.9 09/09/2014 Ot 998.83 09/09/2014 Ot 998.89 09/09/2014 ELLEN ROSARIO, HOWARD Logan Ot 354.2 09/09/2014 ELLEN ROSARIO, HOWARD P Ot V72.63 09/09/2014 ELLEN ROSARIO, HOWARD P Ot V74.8 09/09/2014 LUCIANO ROSARIO, LEAH Jacome Ot 496 09/09/2014 LUCIANO ROSARIO, LEAH Jacome Ot 486 09/09/2014 TERRI KIDD DO Ot 414. 00 09/09/2014 TERRI KIDD DO Ot 493. 20 09/09/2014 TERRI KIDD DO Ot 530. 81 09/09/2014 TERRI KIDD DO Ot 786. 09 09/09/2014 LUCIANO ROSARIO, LEAH Jacome Ot 789. 06 09/09/2014 EULALIA PA, AKIKO Hathaway Ot 401.9 09/09/2014 EULALIA PA, AKIKO K Ot 414.00 09/09/2014 EULALIA PA, AKIKO K Ot 780.2 09/09/2014 EULALIA PA, AKIKO K Ot 786.50 09/09/2014 EULALIA PA, AKIKO K Ot V12.55 09/09/2014 EULALIA PA, AKIKO K Ot 401.9 09/09/2014 EULALIA PA, AKIKO K Ot 414.00 09/09/2014 EULALIA PA, AKIKO Hathaway Ot 780.2 09/09/2014 EULALIA PA, AKIKO Hathaway Ot 785.1 09/09/2014 EULALIA BREWSTER, AKIKO K Ot 786.50 09/09/2014 EULALIA BREWSTER AKIKO K Ot V12.51 09/09/2014 EULALIA BREWSTER, AKIKO K Ot V12.55 09/09/2014 LORAINE LOVE ADAM Jennifer Ot 285.9 09/09/2014 LEAH WOLF MD Ot V76. 12 09/09/2014 LEAH WOLF MD Ot 719. 46 09/09/2014 AKIKO NAVARRO Ot 272.4 09/09/2014 LEAH WOLF MD Ot V58. 62 09/09/2014 LEAH WOLF MD, Ot V58. 83 09/09/2014 LEAH WOLF MD, Ot V58. 61 09/09/2014 LEAH WOLF MD, Ot V58. 83 09/09/2014 CEDRICK ROSARIO, TEDDY Ot V72.84 09/14/2014 LEAH WOLF MD Ot 477. 9 ALLERGIC RHINITIS NOS 09/14/2014 LEAH WOLF MD Ot 493. 22 CHRONIC OBSTRUCTIVE ASTHMA, W (ACUTE) EX 09/14/2014 LEAH WOLF MD Ot 848. 8 SPRAIN NEC 09/14/2014 LEAH WOLF MD, Ot E927 .8 OTH OVEREXERTION STRENUOUS REPETITIV 09/14/2014 LEAH WOLF MD Ot V12. 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 EMBOLISM 09/23/2014 SHELL FOX MD Ot 842.00 SPRAIN OF WRIST NOS 09/23/2014 SHELL FOX MD Ot 922.32 BUTTOCK CONTUSION 09/23/2014 SHELL FOX MD Ot 959 .3 ELB/FOREARM/WRST INJ NOS 09/23/2014 SHELL FOX MD [...] E849.0 ACCIDENT IN HOME 09/28/2014 TEDDY PHILIP MD, Ot E880.9 FALL ON STAIR/STEP NEC 09/28/2014 TEDDY PHILIP MD Ot V12.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 EMBOLISM 09/28/2014 TEDDY PHILIP MD Ot V12.55 PERSONAL HISTORY OF PULMONARY EMBOLISM 09/28/2014 TEDDY PHILIP MD Ot V12.72 PERSONAL HISTORY OF COLONIC POLYPS 09/28/2014 TEDDY PHILIP MD Ot V58.61 ANTICOAGULANTS,LT,CURRENT USE 10/10/2014 KAMRAN LINDQUIST APRN Ot 401 .9 HYPERTENSION NOS 10/10/2014 KAMRAN LINDQUIST APRN Ot 491.21 OBSTR CHRONIC BRONCHITIS, W (ACUTE) EXAC 10/10/2014 KAMRAN LINDQUIST APRN Ot 530.81 ESOPHAGEAL REFLUX 10/10/2014 KAMRAN LINDQUIST APRN Ot 786.05 SHORTNESS OF BREATH 10/10/2014 KAMRAN LINDQUIST APRN Ot V12.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 EMBOLISM 10/10/2014 KAMRAN LINDQUIST APRN Ot V58.61 ANTICOAGULANTS,LT,CURRENT USE 11/01/2014 LEAH WOLF MD Ot V58. 61 ANTICOAGULANTS,LT,CURRENT USE 11/01/2014 LUCIANO ROSARIO, LEAH Jacome Ot V58. 83 ENCOUNTER FOR THERAPEUTIC DRUG MONITORIN 11/09/2014 LEAH WOLF MD Ot V58. 61 11/09/2014 LEAH WOLF MD Ot V58. 83 11/09/2014 LEAH WOLF MD Ot V58. 61 11/09/2014 LEAH WOLF MD Ot V58. 83 11/10/2014 LEAH WOLF MD, Ot V58. 61 11/10/2014 LEAH WOLF MD, Ot V58. 83 11/22/2014 LEAH WOLF MD, Ot 789. 00 11/29/2014 LEAH WOLF MD, Ot V58. 61 11/29/2014 LEAH WOLF MD, Ot V58. 83 12/09/2014 LEAH WOLF MD, Ot V76. 12 12/20/2014 LEAH WOLF MD, Ot V76. 12 02/05/2015 SALOMÓN ELY DO Ot 491.21 OBSTR CHRONIC BRONCHITIS, W (ACUTE) EXAC 02/05/2015 SALOMÓN ELY DO Ot 493.21 ASTHMA, CHRONIC OBSTRUCTIVE W ASTHMATICU 02/07/2015 LEAH WOLF MD, Ot V58. 61 ANTICOAGULANTS,LT,CURRENT USE 02/07/2015 LEAH WOLF MD, Ot V58. 83 ENCOUNTER FOR THERAPEUTIC DRUG MONITORIN 02/07/2015 LEAH WOLF MD, Ot Z51. 81 ENCOUNTER FOR THERAPEUTIC DRUG LEVEL MON 02/07/2015 LEAH WOLF MD, Ot Z79. 01 CARE HOME (CURRENT) USE OF ANTICOAGULANT 03/09/2015 LEAH WOLF MD, Ot B19. 10 UNSPECIFIED VIRAL HEPATITIS B WITHOUT HE 03/09/2015 LEAH WOLF MD, Ot I10 ESSENTIAL (PRIMARY) HYPERTENSION 03/09/2015 LEAH WOLF MD, Ot J40 BRONCHITIS, NOT SPECIFIED ACUTE OR CH 03/09/2015 LEAH WOLF MD, Ot J45.901 UNSPECIFIED ASTHMA WITH (ACUTE) EXACERBA 03/09/2015 LEAH WOLF MD, Ot K21. 9 GASTRO-ESOPHAGEAL REFLUX DISEASE WITHOUT 03/09/2015 LEAH WOLF MD, Ot N39. 0 URINARY TRACT INFECTION, SITE NOT SPECIF 03/09/2015 LEAH WOLF MD, Ot Z87.891 PERSONAL HISTORY OF NICOTINE DEPENDENCE 04/16/2015 JESUS ROSARIO, FELIBERTO Clayton Ot F17.211 NICOTINE DEPENDENCE, CIGARETTES, IN [place] 04/16/2015 JESUS ROSARIO, FELIBERTO Clayton Ot J45.901 UNSPECIFIED ASTHMA WITH (ACUTE) EXACERBA 05/16/2015 LEAH WOLF MD, Ot R41. 3 05/24/2015 Ot 793.81 05/24/2015 Ot V72.83 05/24/2015 [...] 272.4 05/24/2015 KALEIGH ROSARIO, SHEILA Nicolas Ot 454 .9 05/24/2015 KIRAN GREER AVIATION MANAGER Ot 286.9 05/24/2015 KIRAN GREER AVIATION MANAGER Ot 4 96 05/24/2015 KIRAN GREER AVIATION MANAGER Ot 564.1 05/24/2015 KIRAN GREER AVIATION MANAGER Ot 585.3 05/24/2015 KIRAN GREER AVIATION MANAGER Ot V12.51 05/24/2015 KIRAN GREER AVIATION MANAGER Ot V12.55 05/24/2015 KIRAN GREER AVIATION MANAGER Ot V58.61 05/24/2015 KIRAN GREER AVIATION MANAGER Ot V58.69 05/24/2015 LUCIANO ROSARIO, LEAH Jacome Ot 611. 71 05/24/2015 LUCIANO ROSARIO, LEAH Jacome Ot 611. 72 05/24/2015 LUCIANO ROSARIO, LEAH Jacome Ot 786. 05 05/24/2015 Ot V12.51 05/24/2015 Ot V12.55 05/24/2015 Ot 686.9 05/24/2015 LUCIANO ROSARIO, LEAH Jacome Ot 724. 2 05/24/2015 LUCIANO ROSARIO, LEAH Jacome Ot 721. 3 05/24/2015 Ot 454.9 05/24/2015 Ot 998.83 05/24/2015 Ot 998.89 05/24/2015 ELLEN ROSARIO, HOWARD P Ot 354.2 05/24/2015 ELLEN ROSARIO, HOWARD P Ot V72.63 05/24/2015 ELLEN ROSARIO, HOWARD Logan Ot V74.8 05/24/2015 LUCIANO ROSARIO, LEAH Jacome Ot 496 05/24/2015 LUCIANO ROSARIO, LEAH Jacome Ot 486 05/24/2015 TERRI KIDD DO Ot 414. 00 05/24/2015 TERRI KIDD DO Ot 493. 20 05/24/2015 TERRI KIDD DO Ot 530. 81 05/24/2015 TERRI KIDD DO Ot 786. 09 05/24/2015 LUCIANO ROSARIO, LEAH Jacome Ot 789. 06 05/24/2015 EULALIA PA, AKIKO K Ot 401.9 05/24/2015 ALDO-TORI PA, AKIKO K Ot 414.00 05/24/2015 CARLSON-TORI [...] 285.9 05/24/2015 LUCIANO ROSARIO, LEAH Jacome Ot V76. 12 05/24/2015 LUCIANO ROSARIO, LEAH Jacome Ot 719. 46 05/24/2015 ALDO-TORI PA, AKIKO K Ot 272.4 05/24/2015 LEAH WOLF MD Ot V58. 62 05/24/2015 LEAH WOLF MD, Ot V58. 83 05/24/2015 CEDRICK ROSARIO, TEDDY Ot V72.84 05/24/2015 LEAH WOLF MD Ot 789. 00 05/24/2015 LEAH WOLF MD Ot V76. 12 05/24/2015 LEAH WOLF MD, Ot V58. 61 05/24/2015 LEAH WOLF MD Ot V58. 83 05/24/2015 LEAH WOLF MD Ot R41. 3 05/24/2015 LEAH WOLF MD, Ot V58. 61 05/24/2015 LEAH WOLF MD Ot V58. 83 06/08/2015 LEAH WOLF MD Ot N64. 4 06/08/2015 KAMRAN LINDQUIST APRN Ot F17.211 NICOTINE DEPENDENCE, CIGARETTES, IN [place] 06/08/2015 KAMRAN LINDQUIST APRN Ot J44 .1 CHRONIC OBSTRUCTIVE PULMONARY DISEASE W 06/17/2015 KAMRAN LINDQUIST APRN Ot F17.211 06/17/2015 KAMRAN LINDQUIST APRN Ot J44 .1 06/23/2015 LEAH WOLF MD, Ot B19. 10 UNSPECIFIED VIRAL HEPATITIS B WITHOUT HE 06/23/2015 LEAH WOLF MD, Ot F41. 9 ANXIETY DISORDER, UNSPECIFIED 06/23/2015 LEAH WOLF MD Ot I10 ESSENTIAL (PRIMARY) HYPERTENSION 06/23/2015 LEAH WOLF MD, Ot J20. 9 ACUTE BRONCHITIS, UNSPECIFIED 06/23/2015 LEAH WOLF MD, Ot J45.901 UNSPECIFIED ASTHMA WITH (ACUTE) EXACERBA 06/23/2015 LEAH WOLF MD, Ot K21. 9 GASTRO-ESOPHAGEAL REFLUX DISEASE WITHOUT 06/23/2015 LEAH WOLF MD Ot R09. 02 HYPOXEMIA 06/23/2015 LEAH WOLF MD, Ot R73. 9 HYPERGLYCEMIA, UNSPECIFIED 06/23/2015 LEAH WOLF MD, Ot Z87.891 PERSONAL HISTORY OF NICOTINE DEPENDENCE 06/24/2015 LEAH WOLF MD, Ot Z51. 81 06/24/2015 LEAH WOLF MD, Ot Z79. 1 08/16/2015 LEAH WOLF MD, Ot B19. 10 UNSPECIFIED VIRAL HEPATITIS B WITHOUT HE 08/16/2015 LEAH WOLF MD, Ot I10 ESSENTIAL (PRIMARY) HYPERTENSION 08/16/2015 LEAH WOLF MD, Ot J02. 9 ACUTE PHARYNGITIS, UNSPECIFIED 08/16/2015 LEAH WOLF MD, Ot J18. 9 PNEUMONIA, UNSPECIFIED ORGANISM 08/16/2015 LEAH WOLF MD, Ot J45.901 UNSPECIFIED ASTHMA WITH (ACUTE) EXACERBA 08/16/2015 LEAH WOLF MD, Ot K21. 9 GASTRO-ESOPHAGEAL REFLUX DISEASE WITHOUT 08/16/2015 LEHA WOLF MD, Ot R09. 02 HYPOXEMIA 08/16/2015 LEAH WOLF MD, Ot Z87.891 PERSONAL HISTORY OF NICOTINE DEPENDENCE 2015 LEAH WOLF MD, Ot Z51. 81 ENCOUNTER FOR THERAPEUTIC DRUG LEVEL MON 2015 LEAH WOLF MD, Ot Z79. 1 DRIVE THRU ORDER TAKER (CURRENT) USE OF NON-STEROIDAL 08/28/2015 LEAH WOLF MD, Ot Z51. 81 ENCOUNTER FOR THERAPEUTIC DRUG LEVEL MON 08/28/2015 LEAH WOLF MD, Ot Z79. 1 CARE HOME (CURRENT) USE OF NON-STEROIDAL 08/30/2015 LEAH WOLF MD Ot R91. 8 OTHER NONSPECIFIC ABNORMAL FINDING OF SLIM 09/05/2015 AKIKO NAVARRO Ot E78.0 PURE HYPERCHOLESTEROLEMIA 09/05/2015 AKIKO NAVARRO Ot I10 ESSENTIAL (PRIMARY) HYPERTENSION 09/05/2015 AKIKO NAVARRO Ot I25.10 [address] DISEASE OF [place] CORONARY 09/05/2015 AKIKO NAVARRO Ot R55 SYNCOPE AND COLLAPSE 09/08/2015 AKIKO NAVARRO Ot E78.0 PURE HYPERCHOLESTEROLEMIA 09/08/2015 AKIKO NAVARRO Ot I10 ESSENTIAL (PRIMARY) HYPERTENSION 09/08/2015 CARLSON-TORI PA, AKIKO K Ot I25.10 ATHSCL HEART DISEASE OF [place] CORONARY 09/08/2015 AKIKO NAVARRO Ot R55 SYNCOPE AND COLLAPSE 09/09/2015 LUCIANO ROSARIO, LEAH Jacome Ot R91. 8 OTHER NONSPECIFIC ABNORMAL FINDING OF SLIM 09/12/2015 TEDDY PHILIP MD, Ot K43.2 INCISIONAL HERNIA WITHOUT OBSTRUCTION OR 09/12/2015 TEDDY PHILIP MD, Ot Z01.81 8 ENCOUNTER FOR OTHER PREPROCEDURAL EXAMIN 09/13/2015 TEDDY PHILIP MD, Ot K43.2 INCISIONAL HERNIA WITHOUT OBSTRUCTION OR 09/13/2015 TEDDY PHILIP MD, Ot Z01.81 8 ENCOUNTER FOR OTHER PREPROCEDURAL EXAMIN 09/14/2015 AKIKO NAVARRO Ot E78.0 PURE HYPERCHOLESTEROLEMIA 09/14/2015 AKIKO NAVARRO Ot I10 ESSENTIAL (PRIMARY) HYPERTENSION 09/14/2015 AKIKO NAVARRO Ot I25.10 ATHSCL HEART DISEASE OF [place] CORONARY 09/14/2015 AKIKO NAVARRO Ot R55 SYNCOPE AND COLLAPSE 09/16/2015 TEDDY PHILIP MD, Ot 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 09/16/2015 TEDDY PHILIP MD, Ot K43.2 INCISIONAL HERNIA WITHOUT OBSTRUCTION OR 09/16/2015 TEDDY PHILIP MD, Ot T85.79 XA INFECT/INFLM REACTION DUE TO OTH INT PRO 09/16/2015 TEDDY PHILIP MD, Ot Z79.01 CARE HOME (CURRENT) USE OF ANTICOAGULANT 09/17/2015 ALVA BENJAMIN MD, Ot E87.6 HYPOKALEMIA 09/17/2015 ALVA BENJAMIN MD, Ot L98.491 NON-PRS CHRONIC ULCER SKIN/ SITES LIMITE 09/17/2015 ALVA BENJAMIN MD, Ot N39.0 URINARY TRACT INFECTION, SITE NOT SPECIF 09/17/2015 ALVA BENJAMIN MD, Ot R42 DIZZINESS AND GIDDINESS 09/17/2015 ALVA BENJAMIN MD Ot Z87.891 PERSONAL HISTORY OF NICOTINE DEPENDENCE 09/17/2015 ALVA BENJAMIN MD, Ot Z98.89 OTHER SPECIFIED POSTPROCEDURAL STATES 09/19/2015 LEAH WOLF MD, Ot Z51. 81 ENCOUNTER FOR THERAPEUTIC DRUG LEVEL MON 09/19/2015 LEAH WOLF MD, Ot Z79. 1 DRIVE THRU ORDER TAKER (CURRENT) USE OF NON-STEROIDAL 09/19/2015 ALVA BENJAMIN MD, Ot E87.6 HYPOKALEMIA 09/19/2015 ALVA BENJAMIN MD, Ot L98.491 NON-PRS CHRONIC ULCER SKIN/ SITES LIMITE 09/19/2015 ALVA BENJAMIN MD, Ot N39.0 URINARY TRACT INFECTION, SITE NOT SPECIF 09/19/2015 ALVA BENJAMIN MD, Ot R42 DIZZINESS AND GIDDINESS 09/19/2015 ALVA BENJAMIN MD, Ot Z87.891 PERSONAL HISTORY OF NICOTINE DEPENDENCE 09/19/2015 ALVA BENJAMIN MD, Ot Z98.89 OTHER SPECIFIED POSTPROCEDURAL STATES 09/24/2015 FELIBERTO LEE MD Ot S93.492A SPRAIN OF OTHER LIGAMENT OF LEFT ANKLE, 09/24/2015 FELIBERTO LEE MD Ot W01.0XXA FALL SAME LEV FROM SLIP/TRIP W/O STRIKE 09/24/2015 FELIBERTO LEE MD Ot Y99. 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, PART UNSP, W/O PERF O 10/13/2015 KAMRAN LINDQUIST APRN Ot N20 .0 CALCULUS OF KIDNEY 10/14/2015 KAMRAN LINDQUIST APRN Ot J44 .1 CHRONIC OBSTRUCTIVE PULMONARY DISEASE W 10/14/2015 KAMRAN LINDQUIST APRN Ot 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, PART UNSP, W/O PERF O 10/14/2015 KAMRNA LINDQUIST APRN Ot N20 .0 CALCULUS OF KIDNEY 10/14/2015 KAMRAN LINDQUIST APRN Ot J44 .1 CHRONIC OBSTRUCTIVE PULMONARY DISEASE W 10/14/2015 KAMRAN LINDQUIST APRN Ot 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, PART UNSP, W/O PERF O 10/14/2015 KAMRAN LINDQUIST APRN Ot N20 .0 CALCULUS OF KIDNEY 10/15/2015 KAMRAN LINDQUIST APRN Ot J44 .1 CHRONIC OBSTRUCTIVE PULMONARY DISEASE W 10/15/2015 KAMRAN LINDQUIST APRN Ot 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 81 ENCOUNTER FOR THERAPEUTIC DRUG LEVEL MON 11/27/2015 LEAH WOLF MD, Ot Z79. 01 DRIVE THRU ORDER TAKER (CURRENT) USE OF ANTICOAGULANT 11/27/2015 LEAH WOLF MD, Ot Z79. 1 DRIVE THRU ORDER TAKER (CURRENT) USE OF NON-STEROIDAL 11/28/2015 LEAH WOLF MD, Ot Z51. 81 ENCOUNTER FOR THERAPEUTIC DRUG LEVEL MON 11/28/2015 LEAH WOLF MD, Ot Z79. 01 DRIVE THRU ORDER TAKER (CURRENT) USE OF ANTICOAGULANT 11/30/2015 STEPHANIE ECKERT DO Ot J06.9 ACUTE UPPER RESPIRATORY INFECTION, UNSPE 11/30/2015 STEPHANIE ECKERT DO Ot J44.1 CHRONIC OBSTRUCTIVE PULMONARY DISEASE W 11/30/2015 WARNER ECKERT DOA K Ot R05 COUGH 12/01/2015 WARNER ECKERT DOA Rivas Ot J06.9 ACUTE UPPER RESPIRATORY INFECTION, UNSPE 12/01/2015 STEPHANIE ECKERT DO K Ot J44.1 CHRONIC OBSTRUCTIVE PULMONARY DISEASE W 12/01/2015 STEPHANIE ECKERT DO K Ot R05 COUGH 12/09/2015 LUCIANO ROSARIO, LEAH Jacome Ot Z12. 31 ENCNTR SCREEN MAMMOGRAM FOR MALIGNANT NE 12/09/2015 LUCIANO ROSARIO, LEAH Jacome Ot Z12. 31 ENCNTR SCREEN MAMMOGRAM FOR MALIGNANT NE 12/21/2015 LUCIANO ROSARIO, LEAH Jacome Ot Z12. 31 ENCNTR SCREEN MAMMOGRAM FOR MALIGNANT NE 01/04/2016 WARNER ECKERT DOA K Ot J06.9 ACUTE UPPER RESPIRATORY INFECTION, UNSPE 01/04/2016 WARNER ECKERT DOA K Ot J44.1 CHRONIC OBSTRUCTIVE PULMONARY DISEASE W 01/04/2016 STEPHANIE ECKERT DO Ot R05 COUGH 01/24/2016 KAMRAN LINDQUIST APRN Ot I10 ESSENTIAL (PRIMARY) HYPERTENSION 01/24/2016 KAMRAN LINDQUIST APRN Ot J44 .1 CHRONIC OBSTRUCTIVE PULMONARY DISEASE W 01/24/2016 KAMRAN LINDQUIST APRN Ot R06 .2 WHEEZING 01/24/2016 KAMRAN LINDQUIST APRN Ot Z79.01 CARE HOME (CURRENT) USE OF ANTICOAGULANT 01/24/2016 KAMRAN LINDQUIST APRN Ot Z79.[address] THRU ORDER TAKER (CURRENT) DRUG THERAPY 01/24/2016 KAMRAN LINDQUIST APRN Ot Z86.718 PERSONAL HISTORY OF OTHER VENOUS THROMBO 01/24/2016 KAMRAN LINDQUIST APRN Ot Z87.891 PERSONAL HISTORY OF NICOTINE DEPENDENCE 01/26/2016 KAMRAN LINDQUIST APRN Ot I10 ESSENTIAL (PRIMARY) HYPERTENSION 01/26/2016 KAMRAN LINDQUIST APRN Ot J44 .1 CHRONIC OBSTRUCTIVE PULMONARY DISEASE W 01/26/2016 KAMRAN LINDQUIST APRN Ot R06 .2 WHEEZING 01/26/2016 KAMRAN LINDQUIST APRN Ot Z79.01 DRIVE THRU ORDER TAKER (CURRENT) USE OF ANTICOAGULANT 01/26/2016 KAMRAN LINDQUIST APRN Ot Z79.899 OTHER CARE HOME (CURRENT) DRUG THERAPY 01/26/2016 KAMRAN LINDQUIST APRN Ot Z86.718 PERSONAL HISTORY OF OTHER VENOUS THROMBO 01/26/2016 KAMRAN LINDQUIST PHARMACEUTICAL SPECIALTY REPRESENTATIVE Ot Z87.891 PERSONAL HISTORY OF NICOTINE DEPENDENCE 01/31/2016 LEAH WOLF MD Ot Z51. 81 ENCOUNTER FOR THERAPEUTIC DRUG LEVEL MON 01/31/2016 LEAH WOLF MD Ot Z79. 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 02/09/2016 Ot 496 CHR AI RWAY OBSTRUCT NEC 02/09/2016 Ot 782.7 SPON TANEOUS ECCHYMOSES 02/09/2016 Ot V58.69 OTH MED,LT,CURRENT USE 02/09/2016 Ot 611.89 OTH ER SPECIFIED DISORDERS OF BREAST 02/09/2016 Ot V15.89 HX- HEALTH HAZARDS NEC 02/09/2016 Ot V67.09 BART HEIDY FOLLOW- UP, OTHER SURGERY 02/09/2016 Ot 272.4 HYPE RLIPIDEMIA NEC/NOS 02/09/2016 Ot 276.8 HYPO POTASSEMIA 02/09/2016 Ot 783.5 POLY DIPSIA 02/09/2016 Ot 518.89 OTH ER DISEASES OF LUNG, NEC 02/09/2016 Ot 553.21 INC ISIONAL HERNIA 02/09/2016 Ot 592.0 CALC ULUS OF KIDNEY 02/09/2016 Ot 789.00 ABD OMINAL PAIN, UNSPECIFIED SITE 02/09/2016 Ot 729.5 PAIN IN LIMB 02/09/2016 Ot V12.51 HX- VENOUS THROMBOSIS EMBOLISM 02/09/2016 Ot 285.9 ANEM IA NOS 02/09/2016 Ot 782.7 SPON TANEOUS ECCHYMOSES 02/09/2016 Ot 493.90 AST HMA, UNSPECIFIED 02/09/2016 Ot 786.05 MAKI RTNESS OF BREATH 02/09/2016 Ot 729.5 PAIN IN LIMB 02/09/2016 Ot 729.81 SWE LLING OF LIMB 02/09/2016 Ot 496 CHR AI RWAY OBSTRUCT NEC 02/09/2016 Ot 558.9 SHANIQUA NF GASTROENTERIT NEC 02/09/2016 Ot 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, STAGE III (MODER 02/09/2016 Ot V12.51 HX- VENOUS THROMBOSIS EMBOLISM 02/09/2016 Ot V58.61 ANTICOAGULANTS,LT,CURRENT USE 02/09/2016 Ot 733.90 BON E CARTILAGE DIS NOS 02/09/2016 Ot V58.65 DANIEL G- TERM(CURRENT)USE OF STEROIDS 02/09/2016 Ot V82.81 SCR EENING FOR OSTEOPOROSIS 02/09/2016 Ot 491.21 OBS TR CHRONIC BRONCHITIS, W (ACUTE) EXAC 02/09/2016 Ot 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 ASTHMA, NOS 02/09/2016 Ot 496 CHR AI RWAY OBSTRUCT NEC 02/09/2016 Ot V76.12 OTH SCREEN MAMMO- MALIGN NEOPLASM OF MICHELE 02/09/2016 Ot 473.9 PLASTIC CARD GRADER CARDROOM TETE SINUSITIS NOS 02/09/2016 Ot 556.9 ULCE RATIVE COLITIS, UNSPECIFIED 02/09/2016 Ot 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 02/09/2016 Ot 496 CHR AI RWAY OBSTRUCT NEC 02/09/2016 Ot 558.9 SHANIQUA NF GASTROENTERIT NEC 02/09/2016 Ot 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, STAGE III (MODER 02/09/2016 Ot 782.3 EDEMA 02/09/2016 Ot V12.51 HX- VENOUS THROMBOSIS EMBOLISM 02/09/2016 Ot V58.61 ANTICOAGULANTS,LT,CURRENT USE 02/09/2016 Ot V58.69 OTH MED,LT,CURRENT USE 02/09/2016 Ot 729.82 BUNCHER MACHINE MP IN LIMB 02/09/2016 Ot 780.4 DIZZ INESS AND GIDDINESS 02/09/2016 Ot 780.93 MEM ORY LOSS 02/09/2016 Ot 784.0 HEAD ACHE 02/09/2016 Ot V81.5 SCRE EN FOR NEPHROPATHY 02/09/2016 Ot 397.0 TRIC USPID VALVE DISEASE 02/09/2016 Ot 401.9 HYPE RTENSION NOS 02/09/2016 Ot 424.0 MITR AL VALVE DISORDER 02/09/2016 Ot 780.2 SYNC OPE AND COLLAPSE 02/09/2016 Ot 780.4 DIZZ INESS AND GIDDINESS 02/09/2016 Ot 272.4 HYPE RLIPIDEMIA NEC/NOS 02/09/2016 KALEIGH ROSARIO, SHEILA M Ot 454 .9 ASYMPTOMATIC VARICOSE VEINS 02/09/2016 GREERKIRAN Clayton AVIATION MANAGER Ot 286.9 COAGULAT DEFECT NEC/NOS 02/09/2016 PERCYKIRAN AVIATION MANAGER Ot 4 96 CHR AIRWAY OBSTRUCT NEC 02/09/2016 GREERKIRAN Clayton AVIATION MANAGER Ot 564.1 IRRITABLE BOWEL SYNDROME 02/09/2016 GREERKIRAN Clayton AVIATION MANAGER Ot 585.3 CHRONIC KIDNEY DISEASE, STAGE III (MODER 02/09/2016 GREERKIRAN Clayton AVIATION MANAGER Ot V12.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 EMBOLISM 02/09/2016 GREERKIRAN Clayton AVIATION MANAGER Ot V12.55 PERSONAL HISTORY OF PULMONARY EMBOLISM 02/09/2016 GREERKIRAN Clayton AVIATION MANAGER Ot V58.61 ANTICOAGULANTS,LT,CURRENT USE 02/09/2016 PERCYKIRAN AVIATION MANAGER Ot V58.69 OTH MED,LT,CURRENT USE 02/09/2016 LEAH WOLF MD Ot 611. 71 MASTODYNIA 02/09/2016 LEAH WOLF MD Ot 611. 72 LUMP OR MASS IN BREAST 02/09/2016 LEAH WOLF MD Ot 786. 05 SHORTNESS OF BREATH 02/09/2016 Ot V12.51 HX- VENOUS THROMBOSIS EMBOLISM 02/09/2016 Ot V12.55 PER NUNU HISTORY OF PULMONARY EMBOLISM 02/09/2016 Ot 686.9 LOCA L SKIN INFECTION NOS 02/09/2016 LEAH WOLF MD Ot 724. 2 LUMBAGO 02/09/2016 LEAH WOLF MD Ot 721. 3 LUMBOSACRAL SPONDYLOSIS 02/09/2016 Ot 454.9 ASYM PTOMATIC VARICOSE VEINS 02/09/2016 Ot 998.83 NON -HEALING SURG WOUND 02/09/2016 Ot 998.89 OTH ER SPEC COMPLICATIONS OF PROCEDURES N 02/09/2016 HOWARD HUGHES MD Ot 354.2 ULNAR NERVE LESION 02/09/2016 HOWARD HUGHES MD Ot V72.63 PRE-PROCEDURAL LABORATORY EXAMINATION 02/09/2016 HOWARD HUGHES MD, Ot V74.8 SCREEN-BACTERIAL DIS NEC 02/09/2016 LEAH WOLF MD Ot 496 CHR AIRWAY OBSTRUCT NEC 02/09/2016 LEAH WOLF MD Ot 486 PNEUMONIA, ORGANISM NOS 02/09/2016 TERRI KIDD DO Ot 414. 00 CORON ATHEROSCLER NOS TYPE VESSEL, NATIV 02/09/2016 TERRI KIDD DO Ot 493. 20 CHRONIC OBSTRUCTIVE ASTHMA, NOS 02/09/2016 TERRI KIDD DO Ot 530. 81 ESOPHAGEAL REFLUX 02/09/2016 TERRI KIDD DO Ot 786. 09 RESPIRATORY ABNORM NEC 02/09/2016 LEAH WOLF MD Ot 789. 06 ABDOMINAL PAIN, EPIGASTRIC 02/09/2016 AKIKO NAVARRO Ot [...] V12.55 PERSONAL HISTORY OF PULMONARY EMBOLISM 02/09/2016 ADAM BARON DO Ot 285.9 ANEMIA NOS 02/09/2016 LEAH WOLF MD Ot V76. 12 OTH SCREEN MAMMO-MALIGN NEOPLASM OF [place]HE[place] 02/09/2016 LEAH WOLF MD Ot 719. 46 JOINT PAIN-L/LEG 02/09/2016 AKIKO NAVARRO Ot 272.4 HYPERLIPIDEMIA NEC/NOS 02/09/2016 LEAH WOLF MD Ot V58. 62 ENCOUNT FOR LONG-TERM(CURRENT) USE OF AN 02/09/2016 LEAH WOLF MD, Ot V58. 83 ENCOUNTER FOR THERAPEUTIC DRUG MONITORIN 02/09/2016 TEDDY PHILIP MD Ot V72.84 EXAM PRE-OPERATIVE NOS 02/09/2016 LEAH WOLF MD, Ot 789. 00 ABDOMINAL PAIN, UNSPECIFIED SITE 02/09/2016 LEAH WOLF MD, Ot V76. 12 OTH SCREEN MAMMO-MALIGN NEOPLASM OF [place] 02/09/2016 LEAH WOLF MD, Ot N64. 4 MASTODYNIA 02/09/2016 LEAH WOLF MD, Ot R41. 3 OTHER AMNESIA 02/09/2016 LEAH WOLF MD, Ot R91. 8 OTHER NONSPECIFIC ABNORMAL FINDING OF SLIM 02/09/2016 AKIKO NAVARRO Ot E78.0 PURE HYPERCHOLESTEROLEMIA 02/09/2016 AKIKO NAVARRO Ot I10 ESSENTIAL (PRIMARY) HYPERTENSION 02/09/2016 AKIKO NAVARRO Ot I25.10 ATHSCL HEART DISEASE OF [place] CORONARY 02/09/2016 AKIKO NAVARRO Ot R55 SYNCOPE AND COLLAPSE 02/09/2016 LEAH WOLF MD, Ot Z51. 81 ENCOUNTER FOR THERAPEUTIC DRUG LEVEL MON 02/09/2016 LEAH WOLF MD, Ot Z79. 01 DRIVE THRU ORDER TAKER (CURRENT) USE OF ANTICOAGULANT 02/09/2016 LEAH WOLF MD, Ot Z86.718 PERSONAL HISTORY OF OTHER VENOUS THROMBO 02/09/2016 LEAH WOLF MD, Ot Z12. 31 ENCNTR SCREEN MAMMOGRAM FOR MALIGNANT NE 03/02/2016 ALVA BENJAMIN MD, Ot I10 ESSENTIAL (PRIMARY) HYPERTENSION 03/02/2016 ALVA BENJAMIN MD Ot J44.1 CHRONIC OBSTRUCTIVE PULMONARY DISEASE W 03/02/2016 ALVA BENJAMIN MD Ot R06.02 SHORTNESS OF BREATH 03/02/2016 ALVA BENJAMIN MD Ot Z79.[address] THRU ORDER TAKER (CURRENT) DRUG THERAPY 03/02/2016 ALVA BENJAMIN MD Ot Z86.711 PERSONAL HISTORY OF PULMONARY EMBOLISM 03/02/2016 SOURAV ROSARIO, ALVA Casanova Ot Z87.891 PERSONAL HISTORY OF NICOTINE DEPENDENCE 03/05/2016 SOURAV ROSARIO, ALVA Casanova Ot I10 ESSENTIAL (PRIMARY) HYPERTENSION 03/05/2016 SOURAV ROSARIO, ALVA Casanova Ot J44.1 CHRONIC OBSTRUCTIVE PULMONARY DISEASE W 03/05/2016 SOURAV ROSARIO, ALVA Casanova Ot R06.02 SHORTNESS OF BREATH 03/05/2016 SOURAV ROSARIO, ALVA Casanova Ot Z79.[address] THRU ORDER TAKER (CURRENT) DRUG THERAPY 03/05/2016 SOURAV ROSARIO, ALVA Casanova Ot Z86.711 PERSONAL HISTORY OF PULMONARY EMBOLISM 03/05/2016 SOURAV ROSARIO, ALVA Casanova Ot Z87.891 PERSONAL HISTORY OF NICOTINE DEPENDENCE 03/05/2016 Ot 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 03/05/2016 Ot 496 CHR AI RWAY OBSTRUCT NEC 03/05/2016 Ot 782.7 SPON TANEOUS ECCHYMOSES 03/05/2016 Ot V58.69 OTH MED,LT,CURRENT USE 03/05/2016 Ot 611.89 OTH ER SPECIFIED DISORDERS OF BREAST 03/05/2016 Ot V15.89 HX- HEALTH HAZARDS NEC 03/05/2016 Ot V67.09 BART HEIDY FOLLOW- UP, OTHER SURGERY 03/05/2016 Ot 272.4 HYPE RLIPIDEMIA NEC/NOS 03/05/2016 Ot 276.8 HYPO POTASSEMIA 03/05/2016 Ot 783.5 POLY DIPSIA 03/05/2016 Ot 518.89 OTH ER DISEASES OF LUNG, NEC 03/05/2016 Ot 553.21 INC ISIONAL HERNIA 03/05/2016 Ot 592.0 CALC ULUS OF KIDNEY 03/05/2016 Ot 789.00 ABD OMINAL PAIN, UNSPECIFIED SITE 03/05/2016 Ot 729.5 PAIN IN LIMB 03/05/2016 Ot V12.51 HX- VENOUS THROMBOSIS EMBOLISM 03/05/2016 Ot 285.9 ANEM IA NOS 03/05/2016 Ot 782.7 SPON TANEOUS ECCHYMOSES 03/05/2016 Ot 493.90 AST HMA, UNSPECIFIED 03/05/2016 Ot 786.05 MAKI RTNESS OF BREATH 03/05/2016 Ot 729.5 PAIN IN LIMB 03/05/2016 Ot 729.81 SWE LLING OF LIMB 03/05/2016 Ot 496 CHR AI RWAY OBSTRUCT NEC 03/05/2016 Ot 558.9 SHANIQUA NF GASTROENTERIT NEC 03/05/2016 Ot 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, STAGE III (MODER 03/05/2016 Ot V12.51 HX- VENOUS THROMBOSIS EMBOLISM 03/05/2016 Ot V58.61 ANTICOAGULANTS,LT,CURRENT USE 03/05/2016 Ot 733.90 BON E CARTILAGE DIS NOS 03/05/2016 Ot V58.65 DANIEL G- TERM(CURRENT)USE OF STEROIDS 03/05/2016 Ot V82.81 SCR EENING FOR OSTEOPOROSIS 03/05/2016 Ot 491.21 OBS TR CHRONIC BRONCHITIS, W (ACUTE) EXAC 03/05/2016 Ot 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 ASTHMA, NOS 03/05/2016 Ot 496 CHR AI RWAY OBSTRUCT NEC 03/05/2016 Ot V76.12 OTH SCREEN MAMMO- MALIGN NEOPLASM OF [place]HE[place] 03/05/2016 Ot 473.9 PLASTIC CARD GRADER CARDROOM TETE SINUSITIS NOS 03/05/2016 Ot 556.9 ULCE RATIVE COLITIS, UNSPECIFIED 03/05/2016 Ot 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 03/05/2016 Ot 496 CHR AI RWAY OBSTRUCT NEC 03/05/2016 Ot 558.9 SHANIQUA NF GASTROENTERIT NEC 03/05/2016 Ot 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, STAGE III (MODER 03/05/2016 Ot 782.3 EDEMA 03/05/2016 Ot V12.51 HX- VENOUS THROMBOSIS EMBOLISM 03/05/2016 Ot V58.61 ANTICOAGULANTS,LT,CURRENT USE 03/05/2016 Ot V58.69 OTH MED,LT,CURRENT USE 03/05/2016 Ot 729.82 BUNCHER MACHINE MP IN LIMB 03/05/2016 Ot 780.4 DIZZ INESS AND GIDDINESS 03/05/2016 Ot 780.93 MEM ORY LOSS 03/05/2016 Ot 784.0 HEAD ACHE 03/05/2016 Ot V81.5 SCRE EN FOR NEPHROPATHY 03/05/2016 Ot 397.0 TRIC USPID VALVE DISEASE 03/05/2016 Ot 401.9 HYPE RTENSION NOS 03/05/2016 Ot 424.0 MITR AL VALVE DISORDER 03/05/2016 Ot 780.2 SYNC OPE AND COLLAPSE 03/05/2016 Ot 780.4 DIZZ INESS AND GIDDINESS 03/05/2016 Ot 272.4 HYPE RLIPIDEMIA NEC/NOS 03/05/2016 KALEIGH ROSARIO, SHEILA Nicolas Ot 454 .9 ASYMPTOMATIC VARICOSE VEINS 03/05/2016 KIRAN GREER AVIATION MANAGER Ot 286.9 COAGULAT DEFECT NEC/NOS 03/05/2016 KIRAN GREER AVIATION MANAGER Ot 4 96 CHR AIRWAY OBSTRUCT NEC 03/05/2016 KIRAN GREER S AVIATION MANAGER Ot 564.1 IRRITABLE BOWEL SYNDROME 03/05/2016 GREER, KIRAN S AVIATION MANAGER Ot 585.3 CHRONIC KIDNEY DISEASE, STAGE III (MODER 03/05/2016 KIRAN GREER AVIATION MANAGER Ot V12.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 EMBOLISM 03/05/2016 KIRAN GREER Matilde AVIATION MANAGER Ot V12.55 PERSONAL HISTORY OF PULMONARY EMBOLISM 03/05/2016 KIRAN GREER AVIATION MANAGER Ot V58.61 ANTICOAGULANTS,LT,CURRENT USE 03/05/2016 ANDERS GREERRONALD Clayton AVIATION MANAGER Ot V58.69 OTH MED,LT,CURRENT USE 03/05/2016 LEAH WOLF MD Ot 611. 71 MASTODYNIA 03/05/2016 LEAH WOLF MD Ot 611. 72 LUMP OR MASS IN BREAST 03/05/2016 LEAH WOLF MD Ot 786. 05 SHORTNESS OF BREATH 03/05/2016 Ot V12.51 HX- VENOUS THROMBOSIS EMBOLISM 03/05/2016 Ot V12.55 PER NUNU HISTORY OF PULMONARY EMBOLISM 03/05/2016 Ot 686.9 LOCA L SKIN INFECTION NOS 03/05/2016 LEAH WOLF MD Ot 724. 2 LUMBAGO 03/05/2016 LEAH WOLF MD Ot 721. 3 LUMBOSACRAL SPONDYLOSIS 03/05/2016 Ot 454.9 ASYM PTOMATIC VARICOSE VEINS 03/05/2016 Ot 998.83 NON -HEALING SURG WOUND 03/05/2016 Ot 998.89 OTH ER SPEC COMPLICATIONS OF PROCEDURES N 03/05/2016 ELLEN ROSARIO, HOWARD Logan Ot 354.2 ULNAR NERVE LESION 03/05/2016 HOWARD HUGHES MD Ot V72.63 PRE-PROCEDURAL LABORATORY EXAMINATION 03/05/2016 ELLEN ROSARIO, HOWARD Logan Ot V74.8 SCREEN-BACTERIAL DIS NEC 03/05/2016 LUCIANO ROSARIO, LEAH Jacome Ot 496 CHR AIRWAY OBSTRUCT NEC 03/05/2016 LUCIANO ROSRAIO, LEAH Jacome Ot 486 PNEUMONIA, ORGANISM NOS 03/05/2016 TERRI KIDD DO Ot 414. 00 CORON ATHEROSCLER NOS TYPE VESSEL, NATIV 03/05/2016 TERRI KIDD DO Ot 493. 20 CHRONIC OBSTRUCTIVE ASTHMA, NOS 03/05/2016 TERRI KIDD DO Ot 530. 81 ESOPHAGEAL REFLUX 03/05/2016 TERRI KIDD DO Ot 786. 09 RESPIRATORY ABNORM NEC 03/05/2016 LUCIANO ROSARIO, LEAH Jacome Ot 789. 06 ABDOMINAL PAIN, EPIGASTRIC 03/05/2016 AKIKO NAVARRO Ot [...] BARON DO Ot 285.9 ANEMIA NOS 03/05/2016 LUCIANO ROSARIO, LEAH Jacome Ot V76. 12 OTH SCREEN MAMMO-MALIGN NEOPLASM OF [place]HE[place] 03/05/2016 LEAH WOLF MD Ot 719. 46 JOINT PAIN-L/LEG 03/05/2016 AKIKO NAVARRO Ot 272.4 HYPERLIPIDEMIA NEC/NOS 03/05/2016 LEAH WOLF MD, Ot V58. 62 ENCOUNT FOR LONG-TERM(CURRENT) USE OF AN 03/05/2016 LEAH WOLF MD, Ot V58. 83 ENCOUNTER FOR THERAPEUTIC DRUG MONITORIN 03/05/2016 TEDDY PHILIP MD Ot V72.84 EXAM PRE-OPERATIVE NOS 03/05/2016 LEAH WOLF MD, Ot 789. 00 ABDOMINAL PAIN, UNSPECIFIED SITE 03/05/2016 LEAH WOLF MD, Ot V76. 12 OTH SCREEN MAMMO-MALIGN NEOPLASM OF [place]HE[place] 03/05/2016 LEAH WOLF MD, Ot N64. 4 MASTODYNIA 03/05/2016 LEAH WOLF MD, Ot R41. 3 OTHER AMNESIA 03/05/2016 LEAH WOLF MD, Ot R91. 8 OTHER NONSPECIFIC ABNORMAL FINDING OF SLIM 03/05/2016 AKIKO NAVARRO Ot E78.0 PURE HYPERCHOLESTEROLEMIA 03/05/2016 AKIKO NAVARRO Ot I10 ESSENTIAL (PRIMARY) HYPERTENSION 03/05/2016 AKIKO NAVARRO Ot I25.10 A[address] HEART DISEASE OF [place] CORONARY 03/05/2016 AKIKO NAVARRO Ot R55 SYNCOPE AND COLLAPSE 03/05/2016 LEAH WOLF MD, Ot Z51. 81 ENCOUNTER FOR THERAPEUTIC DRUG LEVEL MON 03/05/2016 LEAH WOLF MD, Ot Z79. 01 DRIVE THRU ORDER TAKER (CURRENT) USE OF ANTICOAGULANT 03/05/2016 LEAH WOLF MD, Ot Z86.718 PERSONAL HISTORY OF OTHER VENOUS THROMBO 03/05/2016 LEAH WOLF MD, Ot Z12. 31 ENCNTR SCREEN MAMMOGRAM FOR MALIGNANT NE 03/20/2016 [place] Ot S86.391S INJ MUSC/TEND PERONEAL GRP AT LOW LEG LE 04/02/2016 LEAH WOLF MD, Ot Z51. 81 ENCOUNTER FOR THERAPEUTIC DRUG LEVEL MON 04/02/2016 LEAH WOLF MD, Ot Z79. 01 CARE HOME (CURRENT) USE OF ANTICOAGULANT 04/02/2016 LEAH WOLF MD, Ot Z86.718 PERSONAL HISTORY OF OTHER VENOUS THROMBO 04/03/2016 LEAH WOLF MD, Ot Z51. 81 ENCOUNTER FOR THERAPEUTIC DRUG LEVEL MON 04/03/2016 LEAH WOLF MD, Ot Z79. 01 CARE HOME (CURRENT) USE OF ANTICOAGULANT 04/03/2016 LEAH WOLF MD, Ot Z86.718 PERSONAL HISTORY OF OTHER VENOUS THROMBO 04/03/2016 LEAH WOLF MD, Ot Z51. 81 ENCOUNTER FOR THERAPEUTIC DRUG LEVEL MON 04/03/2016 LEAH WOLF MD, Ot Z79. 01 DRIVE THRU ORDER TAKER (CURRENT) USE OF ANTICOAGULANT 04/03/2016 LEAH WOLF MD, Ot Z86.718 PERSONAL HISTORY OF OTHER VENOUS THROMBO 04/08/2016 LEAH WOLF MD, Ot Z51. 81 ENCOUNTER FOR THERAPEUTIC DRUG LEVEL MON 04/08/2016 LEAH WOLF MD, Ot Z79. 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 10 HYPERSOMNIA, UNSPECIFIED 04/16/2016 LEAH WOLF MD, Ot G47. 30 SLEEP APNEA, UNSPECIFIED 04/16/2016 LEAH WOLF MD, Ot I10 ESSENTIAL (PRIMARY) HYPERTENSION 04/16/2016 LEAH WOLF MD Ot R06. 83 SNORING 04/17/2016 LEAH WOLF MD, Ot G47. 10 HYPERSOMNIA, UNSPECIFIED 04/17/2016 LEAH WOLF MD, Ot G47. 30 SLEEP APNEA, UNSPECIFIED 04/17/2016 LEAH WOLF MD, Ot I10 ESSENTIAL (PRIMARY) HYPERTENSION 04/17/2016 LEAH WOLF MD Ot R06. 83 SNORING 05/13/2016 Ot 401.9 05/13/2016 Ot 493.92 05/13/2016 Ot 786.05 05/13/2016 Ot 786.59 05/13/2016 Ot V58.69 05/17/2016 LEAH WOLF MD, Ot Z51. 81 ENCOUNTER FOR THERAPEUTIC DRUG LEVEL MON 05/17/2016 LEAH WOLF MD, Ot Z79. 01 CARE HOME (CURRENT) USE OF ANTICOAGULANT 05/17/2016 LEAH WOLF MD, Ot Z86.718 PERSONAL HISTORY OF OTHER VENOUS THROMBO 05/22/2016 LEAH WOLF MD, Ot Z51. 81 ENCOUNTER FOR THERAPEUTIC DRUG LEVEL MON 05/22/2016 LEAH WOLF MD, Ot Z79. 01 DRIVE THRU ORDER TAKER (CURRENT) USE OF ANTICOAGULANT 05/22/2016 LEAH WOLF MD, Ot Z86.718 PERSONAL HISTORY OF OTHER VENOUS THROMBO 05/30/2016 LEAH WOLF MD, Ot Z51. 81 ENCOUNTER FOR THERAPEUTIC DRUG LEVEL MON 05/30/2016 LEAH WOLF MD, Ot Z79. 01 CARE HOME (CURRENT) USE OF ANTICOAGULANT 05/30/2016 LEAH WOLF MD, Ot Z86.718 PERSONAL HISTORY OF OTHER VENOUS THROMBO 06/04/2016 KAMRAN LINDQUIST APRN Ot E78.00 PURE HYPERCHOLESTEROLEMIA, UNSPECIFIED 06/04/2016 KAMRAN LINDQUIST APRN Ot F41 .9 ANXIETY DISORDER, UNSPECIFIED 06/04/2016 KAMRAN LINDQUIST APRN Ot G47.30 SLEEP APNEA, UNSPECIFIED 06/04/2016 KAMRAN LINDQUIST APRN Ot I10 ESSENTIAL (PRIMARY) HYPERTENSION 06/04/2016 KAMRAN LINDQUIST APRN Ot I73 .9 PERIPHERAL VASCULAR DISEASE, UNSPECIFIED 06/04/2016 KAMRAN LINDQUIST APRN Ot J44 .1 CHRONIC OBSTRUCTIVE PULMONARY DISEASE W 06/04/2016 KAMRAN LINDQUIST APRN Ot K21 .9 GASTRO-ESOPHAGEAL REFLUX DISEASE WITHOUT 06/04/2016 KAMRAN LINDQUIST APRN Ot K44 .9 DIAPHRAGMATIC HERNIA WITHOUT OBSTRUCTION 06/04/2016 KAMRAN LINDQUIST APRN Ot K59.09 OTHER CONSTIPATION 06/04/2016 KAMRAN LINDQUIST APRN Ot M19.91 PRIMARY OSTEOARTHRITIS, UNSPECIFIED SITE 06/04/2016 KAMRAN LINDQUIST APRN Ot R05 COUGH 06/04/2016 KAMRAN LINDQUIST APRN Ot Z79.01 CARE HOME (CURRENT) USE OF ANTICOAGULANT 06/04/2016 KAMRAN LINDQUIST APRN Ot Z79.[address] THRU ORDER TAKER (CURRENT) DRUG THERAPY 06/04/2016 KAMRAN LINDQUIST APRN Ot Z86.711 PERSONAL HISTORY OF PULMONARY EMBOLISM 06/04/2016 KAMRAN LINDQUIST APRN Ot Z86.718 PERSONAL HISTORY OF OTHER VENOUS THROMBO 06/04/2016 KAMRAN LINDQUIST PHARMACEUTICAL SPECIALTY REPRESENTATIVE Ot Z87.891 PERSONAL HISTORY OF NICOTINE DEPENDENCE 06/05/2016 KAMRAN LINDQUIST PHARMACEUTICAL SPECIALTY REPRESENTATIVE Ot I10 ESSENTIAL (PRIMARY) HYPERTENSION 06/05/2016 KAMRAN LINDQUIST APRN Ot J44 .1 CHRONIC OBSTRUCTIVE PULMONARY DISEASE W 06/05/2016 KAMRAN LINDQUIST APRN Ot R05 COUGH 06/05/2016 KAMRAN LINDQUIST APRN Ot Z79.[address] THRU ORDER TAKER (CURRENT) DRUG THERAPY 06/05/2016 KAMRAN LINDQUIST APRN Ot Z87.891 PERSONAL HISTORY OF NICOTINE DEPENDENCE 06/06/2016 KAMRAN LINDQUIST APRN Ot I10 ESSENTIAL (PRIMARY) HYPERTENSION 06/06/2016 KAMRAN LINDQUIST APRN Ot J44 .1 CHRONIC OBSTRUCTIVE PULMONARY DISEASE W 06/06/2016 KAMRAN LINDQUIST APRN Ot R05 COUGH 06/06/2016 KAMRAN LINDQUIST APRN Ot Z79.[address] THRU ORDER TAKER (CURRENT) DRUG THERAPY 06/06/2016 KAMRAN LINDQUIST APRN Ot Z87.891 PERSONAL HISTORY OF NICOTINE DEPENDENCE 06/06/2016 Ot 491.21 OBS TR CHRONIC BRONCHITIS, W (ACUTE) EXAC 06/06/2016 Ot 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 ASTHMA, NOS 06/06/2016 Ot V12.51 HX- VENOUS THROMBOSIS EMBOLISM 06/06/2016 Ot V12.55 PER NUNU HISTORY OF PULMONARY EMBOLISM 06/06/2016 Ot 686.9 LOCA L SKIN INFECTION NOS 06/06/2016 Ot 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 62 ENCOUNT FOR LONG-TERM(CURRENT) USE OF AN 06/06/2016 LEAH WOLF MD, Ot V58. 83 ENCOUNTER FOR THERAPEUTIC DRUG MONITORIN 06/08/2016 LEAH WOLF MD Ot E78. 00 PURE HYPERCHOLESTEROLEMIA, UNSPECIFIED 06/08/2016 LEAH WOLF MD, Ot F41. 9 ANXIETY DISORDER, UNSPECIFIED 06/08/2016 LEAH WOLF MD, Ot H91. 90 UNSPECIFIED HEARING LOSS, UNSPECIFIED EA 06/08/2016 LEAH WOLF MD Ot I10 ESSENTIAL (PRIMARY) HYPERTENSION 06/08/2016 LEAH WOLF MD Ot I73. 9 PERIPHERAL VASCULAR DISEASE, UNSPECIFIED 06/08/2016 LEAH WOLF MD, Ot J44. 1 CHRONIC OBSTRUCTIVE PULMONARY DISEASE W 06/08/2016 LEAH WOLF MD, Ot K21. 9 GASTRO-ESOPHAGEAL REFLUX DISEASE WITHOUT 06/08/2016 LEAH WOLF MD, Ot K57. 90 DVRTCLOS OF [facility] [place], PART UNS, W/O PERF 06/08/2016 LEAH WOLF MD, Ot Z86.718 PERSONAL HISTORY OF OTHER VENOUS THROMBO 06/08/2016 LEAH WOLF MD, Ot Z87.891 PERSONAL HISTORY OF NICOTINE DEPENDENCE 06/08/2016 LEAH WOLF MD Ot E78. 00 PURE HYPERCHOLESTEROLEMIA, UNSPECIFIED 06/08/2016 LEAH WOLF MD, Ot F41. 9 ANXIETY DISORDER, UNSPECIFIED 06/08/2016 LEAH WOLF MD, Ot H91. 90 UNSPECIFIED HEARING LOSS, UNSPECIFIED EA 06/08/2016 LEAH WOLF MD Ot I10 ESSENTIAL (PRIMARY) HYPERTENSION 06/08/2016 LEAH WOFL MD, Ot I73. 9 PERIPHERAL VASCULAR DISEASE, UNSPECIFIED 06/08/2016 LEAH WOLF MD, Ot J44. 1 CHRONIC OBSTRUCTIVE PULMONARY DISEASE W 06/08/2016 LEAH WOLF MD, Ot K21. 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 00 PURE HYPERCHOLESTEROLEMIA, UNSPECIFIED 06/09/2016 LEAH WOLF MD, Ot F41. 9 ANXIETY DISORDER, UNSPECIFIED 06/09/2016 LEAH WOLF MD, Ot H91. 90 UNSPECIFIED HEARING LOSS, UNSPECIFIED EA 06/09/2016 LEAH WOLF MD Ot I10 ESSENTIAL (PRIMARY) HYPERTENSION 06/09/2016 LEAH WOLF MD, Ot I73. 9 PERIPHERAL VASCULAR DISEASE, UNSPECIFIED 06/09/2016 LEAH WOLF MD, Ot J44. 1 CHRONIC OBSTRUCTIVE PULMONARY DISEASE W 06/09/2016 LEAH WOLF MD, Ot K21. 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, PART UNSP, W/O PERF 06/09/2016 LEAH WOLF MD, Ot Z86.718 PERSONAL HISTORY OF OTHER VENOUS THROMBO 06/09/2016 LEAH WOLF MD, Ot Z87.891 PERSONAL HISTORY OF NICOTINE DEPENDENCE 06/10/2016 KAMRAN LINDQUIST APRN Ot I10 ESSENTIAL (PRIMARY) HYPERTENSION 06/10/2016 KAMRAN LINDQUIST APRN Ot J44 .1 CHRONIC OBSTRUCTIVE PULMONARY DISEASE W 06/10/2016 KAMRAN LINDQUIST APRN Ot R05 COUGH 06/10/2016 KAMRAN LINDQUIST PHARMACEUTICAL SPECIALTY REPRESENTATIVE Ot Z79.899 OTHER CARE HOME (CURRENT) DRUG THERAPY 06/10/2016 KAMRAN LINDQUIST PHARMACEUTICAL SPECIALTY REPRESENTATIVE Ot Z87.891 PERSONAL HISTORY OF NICOTINE DEPENDENCE 06/10/2016 LEAH WOLF MD Ot E78. 00 PURE HYPERCHOLESTEROLEMIA, UNSPECIFIED 06/10/2016 LEAH WOLF MD, Ot F41. 9 ANXIETY DISORDER, UNSPECIFIED 06/10/2016 LEAH WOLF MD, Ot H91. 90 UNSPECIFIED HEARING LOSS, UNSPECIFIED EA 06/10/2016 LEAH WOLF MD, Ot I10 ESSENTIAL (PRIMARY) HYPERTENSION 06/10/2016 LEAH WOLF MD, Ot I73. 9 PERIPHERAL VASCULAR DISEASE, UNSPECIFIED 06/10/2016 LEAH WOLF MD, Ot J44. 1 CHRONIC OBSTRUCTIVE PULMONARY DISEASE W 06/10/2016 LEAH WOLF MD, Ot K21. 9 GASTRO-ESOPHAGEAL REFLUX DISEASE WITHOUT 06/10/2016 LEAH WOLF MD Ot K57. 90 DVRTCLOS OF [facility], W/O PERF 06/10/2016 LEAH WOLF MD, Ot Z86.718 PERSONAL HISTORY OF OTHER VENOUS THROMBO 06/10/2016 LEAH WOLF MD, Ot Z87.891 PERSONAL HISTORY OF NICOTINE DEPENDENCE 06/11/2016 LEAH WOLF MD Ot E78. 00 PURE HYPERCHOLESTEROLEMIA, UNSPECIFIED 06/11/2016 LEAH WOLF MD, Ot F41. 9 ANXIETY DISORDER, UNSPECIFIED 06/11/2016 LEAH WOLF MD, Ot H91. 90 UNSPECIFIED HEARING LOSS, UNSPECIFIED EA 06/11/2016 LEAH WOLF MD, Ot I10 ESSENTIAL (PRIMARY) HYPERTENSION 06/11/2016 LEAH WOLF MD, Ot I73. 9 PERIPHERAL VASCULAR DISEASE, UNSPECIFIED 06/11/2016 LEAH WOLF MD, Ot J44. 1 CHRONIC OBSTRUCTIVE PULMONARY DISEASE W 06/11/2016 LEAH WOLF MD, Ot K21. 9 GASTRO-ESOPHAGEAL REFLUX DISEASE WITHOUT 06/11/2016 LEAH WOLF MD Ot K57. 90 DVRTCLOS OF [facility], W/O PERF 06/11/2016 LEAH WOLF MD, Ot Z86.718 PERSONAL HISTORY OF OTHER VENOUS THROMBO 06/11/2016 LEAH WOLF MD, Ot Z87.891 PERSONAL HISTORY OF NICOTINE DEPENDENCE 06/11/2016 LEAH WOLF MD, Ot E78. 00 PURE HYPERCHOLESTEROLEMIA, UNSPECIFIED 06/11/2016 LEAH WOLF MD, Ot F41. 9 ANXIETY DISORDER, UNSPECIFIED 06/11/2016 LEAH WOLF MD, Ot H91. 90 UNSPECIFIED HEARING LOSS, UNSPECIFIED EA 06/11/2016 LEAH WOLF MD, Ot I10 ESSENTIAL (PRIMARY) HYPERTENSION 06/11/2016 LEAH WOLF MD, Ot I73. 9 PERIPHERAL VASCULAR DISEASE, UNSPECIFIED 06/11/2016 LEAH WOLF MD, Ot J44. 1 CHRONIC OBSTRUCTIVE PULMONARY DISEASE W 06/11/2016 LEAH WOLF MD, Ot K21. 9 GASTRO-ESOPHAGEAL REFLUX DISEASE WITHOUT 06/11/2016 LEAH WOLF MD, Ot K57. 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 07/12/2016 CHARITY ROSARIO FACC, PVAAN FACP CCDS Ot I73.9 PERIPHERAL VASCULAR DISEASE, UNSPECIFIED 07/12/2016 CHARITY ROSARIO FACC, PAVAN FACP CCDS Ot R06.02 SHORTNESS OF BREATH 07/12/2016 CHARITY ROSARIO FACC, PAVAN FACP CCDS Ot Z86.718 PERSONAL HISTORY OF OTHER VENOUS THROMBO 07/14/2016 ALVA BENJAMIN MD Ot I10 ESSENTIAL (PRIMARY) HYPERTENSION 07/14/2016 ALVA BENJAMIN MD Ot J44.9 CHRONIC OBSTRUCTIVE PULMONARY DISEASE, U 07/14/2016 ALVA BENJAMIN MD T Ot M79.661 PAIN IN RIGHT LOWER LEG 07/14/2016 ALVA BENJAMIN MD Ot M79.662 PAIN IN LEFT LOWER LEG 07/14/2016 ALVA BENJAMIN MD Ot R22.42 LOCALIZED SWELLING, MASS AND LUMP, LEFT 07/14/2016 ALVA BENJAMIN MD T Ot R60.0 LOCALIZED EDEMA 07/14/2016 ALVA BENJAMIN MD T Ot Z79.899 OTHER CARE HOME (CURRENT) DRUG THERAPY 07/14/2016 ALVA BENJAMIN MD T Ot Z86.718 PERSONAL HISTORY OF OTHER VENOUS THROMBO 07/14/2016 ALVA BENJAMIN MD T Ot Z87.891 PERSONAL HISTORY OF NICOTINE DEPENDENCE 07/17/2016 CHARITY ROSARIO FACC, PAVAN RENOP CCDS Ot 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 5 HYPERLIPIDEMIA, UNSPECIFIED 07/25/2016 LEAH WOLF MD, Ot E87. 1 HYPO-OSMOLALITY AND HYPONATREMIA 07/25/2016 LEAH WOLF MD, Ot I10 ESSENTIAL (PRIMARY) HYPERTENSION 07/25/2016 LEAH WOLF MD, Ot J44. 1 CHRONIC OBSTRUCTIVE PULMONARY DISEASE W 07/25/2016 LEAH WOLF MD, Ot K21. 9 GASTRO-ESOPHAGEAL REFLUX DISEASE WITHOUT 07/25/2016 LEAH WOLF MD, Ot R73. 03 PREDIABETES 07/25/2016 LEAH WOLF MD, Ot R91. 1 SOLITARY PULMONARY NODULE 07/25/2016 LEAH WOLF MD, Ot Z79. 01 CARE HOME (CURRENT) USE OF ANTICOAGULANT 07/25/2016 LEAH WOLF MD, Ot Z79.[address] THRU ORDER TAKER (CURRENT) DRUG THERAPY 07/25/2016 LEAH WOLF MD, Ot Z87.891 PERSONAL HISTORY OF NICOTINE DEPENDENCE 08/03/2016 LEAH WOLF MD, Ot K62. 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 81 ENCOUNTER FOR THERAPEUTIC DRUG LEVEL MON 08/09/2016 LEAH WOLF MD, Ot Z79. 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 81 ENCOUNTER FOR THERAPEUTIC DRUG LEVEL MON 08/10/2016 LEAH WOLF MD, Ot Z79. 01 DRIVE THRU ORDER TAKER (CURRENT) USE OF ANTICOAGULANT 08/10/2016 LEAH WOLF MD, Ot Z86.718 PERSONAL HISTORY OF OTHER VENOUS THROMBO 08/10/2016 CHARITY ROSARIO [facility], ALI FACP CCDS Ot R00.2 PALPITATIONS 08/10/2016 CHARITY ROSARIO [facility], ALI FACP CCDS Ot R06.02 SHORTNESS OF BREATH 08/10/2016 CHARITY ROSARIO [facility], ALI FACP CCDS Ot R07.89 OTHER CHEST PAIN 08/11/2016 Ot 493.92 08/11/2016 Ot 786.07 08/17/2016 LEAH WOLF MD Ot K62. 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 81 ENCOUNTER FOR THERAPEUTIC DRUG LEVEL MON 09/06/2016 LEAH WOLF MD, Ot Z79. 01 CARE HOME (CURRENT) USE OF ANTICOAGULANT 09/06/2016 LEAH WOLF MD, Ot Z86.718 PERSONAL HISTORY OF OTHER VENOUS THROMBO 09/06/2016 LEAH WOLF MD, Ot Z51. 81 ENCOUNTER FOR THERAPEUTIC DRUG LEVEL MON 09/06/2016 LEAH WOLF MD, Ot Z79. 01 CARE HOME (CURRENT) USE OF ANTICOAGULANT 09/06/2016 LEAH WOLF MD, Ot Z86.718 PERSONAL HISTORY OF OTHER VENOUS THROMBO 09/17/2016 LEAH WOLF MD, Ot Z51. 81 ENCOUNTER FOR THERAPEUTIC DRUG LEVEL MON 09/17/2016 LEAH WOLF MD, Ot Z79. 01 CARE HOME (CURRENT) USE OF ANTICOAGULANT 09/17/2016 LEAH WOLF MD, Ot Z86.718 PERSONAL HISTORY OF OTHER VENOUS THROMBO 10/01/2016 LEAH WOLF MD, Ot Z51. 81 ENCOUNTER FOR THERAPEUTIC DRUG LEVEL MON 10/01/2016 LEAH WOLF MD, Ot Z79. 01 CARE HOME (CURRENT) USE OF ANTICOAGULANT 10/01/2016 LEAH WOLF MD, Ot Z86.718 PERSONAL HISTORY OF OTHER VENOUS THROMBO 10/10/2016 LEAH WOLF MD Ot R91. 8 OTHER NONSPECIFIC ABNORMAL FINDING OF [place] 11/07/2016 [place] Ot R60. 0 LOCALIZED EDEMA 12/05/2016 LEAH WOLF MD, Ot Z51. 81 ENCOUNTER FOR THERAPEUTIC DRUG LEVEL MON 12/05/2016 LEAH WOLF MD, Ot Z79. 01 CARE HOME (CURRENT) USE OF ANTICOAGULANT 12/05/2016 LEAH WOLF MD, Ot Z86.718 PERSONAL HISTORY OF OTHER VENOUS THROMBO 12/11/2016 LEAH WOLF MD, Ot Z12. 31 ENCNTR SCREEN MAMMOGRAM FOR MALIGNANT NE 12/11/2016 LEAH WOLF MD, Ot Z12. 31 ENCNTR SCREEN MAMMOGRAM FOR MALIGNANT NE 12/16/2016 STEPHANIE GREENWOODP Ot E78.00 PURE HYPERCHOLESTEROLEMIA, UNSPECIFIED 12/16/2016 STEPHANIE GREENWOODP Ot F41.9 ANXIETY DISORDER, UNSPECIFIED 12/16/2016 TIMO, STEPHANIE AVIATION MANAGER Ot I10 ESSENTIAL (PRIMARY) HYPERTENSION 12/16/2016 STEPHANIE GREENWOODP Ot J43.9 EMPHYSEMA, UNSPECIFIED 12/16/2016 TIMOSTEPHANIE DiazP Ot J45.909 UNSPECIFIED ASTHMA, UNCOMPLICATED 12/16/2016 STEPHANIE GREENWOODP Ot K21.9 GASTRO-ESOPHAGEAL REFLUX DISEASE WITHOUT 12/16/2016 STEPHANIE GREENWOODP Ot K59.09 OTHER CONSTIPATION 12/16/2016 TIMO STEPHANIE AVIATION MANAGER Ot 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] 12/16/2016 STEPHANIE GREENWOOD AVIATION MANAGER Ot M79.89 OTHER SPECIFIED SOFT TISSUE DISORDERS 12/16/2016 TIMO STEPHANIE AVIATION MANAGER Ot R60.9 EDEMA, UNSPECIFIED 12/16/2016 TIMO STEPHANIE AVIATION MANAGER Ot S86.112A STRAIN MUSC/TEND POST GRP AT LOW LEG LEV 12/16/2016 TIMO STEPHANIE AVIATION MANAGER Ot X58.XXXA EXPOSURE TO OTHER SPECIFIED FACTORS, INI 12/16/2016 TIMOSTEPHANIE Diaz AVIATION MANAGER Ot Z79.01 CARE HOME (CURRENT) USE OF ANTICOAGULANT 12/16/2016 TIMO STEPHANIE AVIATION MANAGER Ot Z86.718 PERSONAL HISTORY OF OTHER VENOUS THROMBO 12/16/2016 TIMO, STEPHANIE AVIATION MANAGER Ot Z87.891 PERSONAL HISTORY OF NICOTINE DEPENDENCE 12/16/2016 TIMO, STEPHANIE AVIATION MANAGER Ot Z90.710 ACQUIRED ABSENCE OF BOTH CERVIX AND UTER 12/18/2016 TIMO, STEPHANIE AVIATION MANAGER Ot E78.00 PURE HYPERCHOLESTEROLEMIA, UNSPECIFIED 12/18/2016 TIMO, STEPHANIE AVIATION MANAGER Ot F41.9 ANXIETY DISORDER, UNSPECIFIED 12/18/2016 TIMO, STEPHANIE AVIATION MANAGER Ot I10 ESSENTIAL (PRIMARY) HYPERTENSION 12/18/2016 TIMO, STEPHANIE AVIATION MANAGER Ot J43.9 EMPHYSEMA, UNSPECIFIED 12/18/2016 TIMO, STEPHANIE AVIATION MANAGER Ot J45.909 UNSPECIFIED ASTHMA, UNCOMPLICATED 12/18/2016 TIMO STEPHANIE AVIATION MANAGER Ot K21.9 GASTRO-ESOPHAGEAL REFLUX DISEASE WITHOUT 12/18/2016 TIMO, STEPHANIE AVIATION MANAGER Ot K59.09 OTHER CONSTIPATION 12/18/2016 TIMO, STEPHANIE AVIATION MANAGER Ot 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] 12/18/2016 TIMOSTEPHANIE iDaz AVIATION MANAGER Ot M79.89 OTHER SPECIFIED SOFT TISSUE DISORDERS 12/18/2016 TIMO, STEPHANIE AVIATION MANAGER Ot R60.9 EDEMA, UNSPECIFIED 12/18/2016 TIMO STEPHANIE AVIATION MANAGER Ot S86.112A STRAIN MUSC/TEND POST GRP AT LOW LEG LEV 12/18/2016 TIMO, STEPHANIE AVIATION MANAGER Ot X58.XXXA EXPOSURE TO OTHER SPECIFIED FACTORS, INI 12/18/2016 TIMO, STEPHANIE AVIATION MANAGER Ot Z79.01 DRIVE THRU ORDER TAKER (CURRENT) USE OF ANTICOAGULANT 12/18/2016 TIMO STEPHANIE AVIATION MANAGER Ot Z86.718 PERSONAL HISTORY OF OTHER VENOUS THROMBO 12/18/2016 TIMO STEPHANIE AVIATION MANAGER Ot Z87.891 PERSONAL HISTORY OF NICOTINE DEPENDENCE 12/18/2016 TIMO, STEPHANIE RAMOSP Ot Z90.710 ACQUIRED ABSENCE OF BOTH CERVIX AND UTER 12/18/2016 TIMO, STEPHANIE RAMOSP Ot E78.00 PURE HYPERCHOLESTEROLEMIA, UNSPECIFIED 12/18/2016 TIMOSTEPHANIE Diaz AVIATION MANAGER Ot F41.9 ANXIETY DISORDER, UNSPECIFIED 12/18/2016 TIMOSTEPHANIE Diaz AVIATION MANAGER Ot I10 ESSENTIAL (PRIMARY) HYPERTENSION 12/18/2016 TIMOSTEPHANIE Diaz AVIATION MANAGER Ot J43.9 EMPHYSEMA, UNSPECIFIED 12/18/2016 TIMO, STEPHANIE RAMOSP Ot J45.909 UNSPECIFIED ASTHMA, UNCOMPLICATED 12/18/2016 TIMO, STEPHANIE RAMOSP Ot K21.9 GASTRO-ESOPHAGEAL REFLUX DISEASE WITHOUT 12/18/2016 TIMO, STEPHANIE RAMOSP Ot K59.09 OTHER CONSTIPATION 12/18/2016 TIMOSTEPHANIE Diaz AVIATION MANAGER Ot 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] 12/18/2016 TIMOSTEPHANIE Diaz AVIATION MANAGER Ot M79.89 OTHER SPECIFIED SOFT TISSUE DISORDERS 12/18/2016 TIMO, STEPHANIE RAMOSP Ot R60.9 EDEMA, UNSPECIFIED 12/18/2016 TIMO, STEPHANIE RAMOSP Ot S86.112A STRAIN MUSC/TEND POST GRP AT LOW LEG LEV 12/18/2016 TIMO, STEPHANIE RAMOSP Ot X58.XXXA EXPOSURE TO OTHER SPECIFIED FACTORS, INI 12/18/2016 TIMO, STEPHANIE RAMOSP Ot Z79.01 CARE HOME (CURRENT) USE OF ANTICOAGULANT 12/18/2016 TIMO, STEPHANIE RAMOSP Ot Z86.718 PERSONAL HISTORY OF OTHER VENOUS THROMBO 12/18/2016 TIMOSTEPHANIE Diaz AVIATION MANAGER Ot Z87.891 PERSONAL HISTORY OF NICOTINE DEPENDENCE 12/18/2016 TIMO, STEPHANIE RAMOSP Ot Z90.710 ACQUIRED ABSENCE OF BOTH CERVIX AND UTER 12/21/2016 LEAH WOLF MD Ot Z12. 31 ENCNTR SCREEN MAMMOGRAM FOR MALIGNANT NE 12/26/2016 LEAH WOLF MD Ot N64. 89 OTHER SPECIFIED DISORDERS OF BREAST 12/31/2016 LEAH WOLF MD, Ot N64. 89 OTHER SPECIFIED DISORDERS OF BREAST 01/02/2017 SOURAV ROSARIO, ALVA Casanova Ot E78.00 PURE HYPERCHOLESTEROLEMIA, UNSPECIFIED 01/02/2017 ALVA BENJAMIN MD, Ot F41.9 ANXIETY DISORDER, UNSPECIFIED 01/02/2017 ALVA BENJAMIN MD, Ot G47.30 SLEEP APNEA, UNSPECIFIED 01/02/2017 ALVA BENJAMIN MD, Ot I10 ESSENTIAL (PRIMARY) HYPERTENSION 01/02/2017 ALVA BENJAMIN MD Ot I73.9 PERIPHERAL VASCULAR DISEASE, UNSPECIFIED 01/02/2017 ALVA BENJAMIN MD, Ot J44.1 CHRONIC OBSTRUCTIVE PULMONARY DISEASE W 01/02/2017 ALVA BENJAMIN MD, Ot M19.90 UNSPECIFIED OSTEOARTHRITIS, UNSPECIFIED 01/02/2017 ALVA BENJAMIN MD, Ot R06.02 SHORTNESS OF BREATH 01/02/2017 ALVA BENJAMIN MD, Ot Z79.01 DRIVE THRU ORDER TAKER (CURRENT) USE OF ANTICOAGULANT 01/02/2017 ALVA BENJAMIN MD, Ot Z80.0 FAMILY HISTORY OF MALIGNANT NEOPLASM OF 01/02/2017 ALVA BENJAMIN MD, Ot Z82.49 FAMILY HX OF ISCHEM HEART DIS AND OTH DI 01/02/2017 ALVA BENJAMIN MD, Ot Z86.718 PERSONAL HISTORY [...] HISTORY OF NICOTINE DEPENDENCE 01/02/2017 ALVA BENJAMIN MD Ot Z90.710 ACQUIRED ABSENCE OF BOTH CERVIX AND UTER 01/02/2017 ALVA BENJAMIN MD Ot Z90.89 ACQUIRED ABSENCE OF OTHER ORGANS 01/02/2017 ALVA BENJAMIN MD Ot Z95.828 PRESENCE OF OTHER VASCULAR IMPLANTS AND 01/03/2017 ALVA BENJAMIN MD Ot E78.00 PURE HYPERCHOLESTEROLEMIA, UNSPECIFIED 01/03/2017 ALVA BENJAMIN MD, Ot F41.9 ANXIETY DISORDER, UNSPECIFIED 01/03/2017 ALVA BENJAMIN MD, Ot G47.30 SLEEP APNEA, UNSPECIFIED 01/03/2017 ALVA BENJAMIN MD, Ot I10 ESSENTIAL (PRIMARY) HYPERTENSION 01/03/2017 ALVA BENJAMIN MD Ot I73.9 PERIPHERAL VASCULAR DISEASE, UNSPECIFIED 01/03/2017 ALVA BENJAMIN MD Ot J44.1 CHRONIC OBSTRUCTIVE PULMONARY DISEASE W 01/03/2017 ALVA BENJAMIN MD, Ot M19.90 UNSPECIFIED OSTEOARTHRITIS, UNSPECIFIED 01/03/2017 ALVA BENJAMIN MD Ot R06.02 SHORTNESS OF BREATH 01/03/2017 ALVA BENJAMIN MD, Ot Z79.01 CARE HOME (CURRENT) USE OF ANTICOAGULANT 01/03/2017 ALVA BENJAMIN MD Ot Z80.0 FAMILY HISTORY OF MALIGNANT NEOPLASM OF 01/03/2017 ALVA BENJAMIN MD, Ot Z82.49 FAMILY HX OF ISCHEM HEART DIS AND OTH DI 01/03/2017 ALVA BENJAMIN MD Ot Z86.718 PERSONAL HISTORY OF OTHER VENOUS THROMBO 01/03/2017 ALVA BENJAMIN MD Ot Z87.09 PERSONAL HISTORY OF OTHER DISEASES OF TH 01/03/2017 ALVA BENJAMIN MD Ot Z87.19 PERSONAL HISTORY OF OTHER DISEASES OF TH 01/03/2017 ALVA BENJAMIN MD Ot Z87.448 PERSONAL HISTORY OF OTHER DISEASES OF UR 01/03/2017 ALVA BENJAMIN MD Ot Z87.59 PERSONAL HISTORY OF COMP OF PREG, CHLDBR 01/03/2017 ALVA BENJAMIN MD Ot Z87.891 PERSONAL HISTORY OF NICOTINE DEPENDENCE 01/03/2017 ALVA BENJAMIN MD Ot Z90.710 ACQUIRED ABSENCE OF BOTH CERVIX AND UTER 01/03/2017 ALVA BENJAMIN MD Ot Z90.89 ACQUIRED ABSENCE OF OTHER ORGANS 01/03/2017 ALVA BENJAMIN MD Ot Z95.828 PRESENCE OF OTHER VASCULAR IMPLANTS AND 01/07/2017 LEAH WOLF MD Ot N64. 89 OTHER SPECIFIED DISORDERS OF BREAST 02/18/2017 YANELI ROSARIO, HOWARD Logan Ot J32 .9 CHRONIC SINUSITIS, UNSPECIFIED 02/18/2017 HOWARD GROVES MD Ot J33 .9 NASAL POLYP, UNSPECIFIED 03/08/2017 LEAH WOLF MD Ot R10. 31 RIGHT LOWER QUADRANT PAIN 03/08/2017 LEAH WOLF MD Ot Z95.828 PRESENCE OF OTHER VASCULAR IMPLANTS AND 03/12/2017 HOWARD GROVES MD Ot J32 .9 CHRONIC SINUSITIS, UNSPECIFIED 03/12/2017 HOWARD GROVES MD, Ot J33 .9 NASAL POLYP, UNSPECIFIED 03/13/2017 LEAH WOLF MD Ot R10. 31 RIGHT LOWER QUADRANT PAIN 03/13/2017 LEAH WOLF MD, Ot Z95.828 PRESENCE OF OTHER VASCULAR IMPLANTS AND 03/16/2017 JESUS ROSARIO, FELIBERTO Clayton Ot E78. 00 PURE HYPERCHOLESTEROLEMIA, UNSPECIFIED 03/16/2017 JESUS ROSARIO, FELIBERTO Clayton Ot F41. 9 ANXIETY DISORDER, UNSPECIFIED 03/16/2017 JESUS ROSARIO, FELIBERTO Clayton Ot G47. 30 SLEEP APNEA, UNSPECIFIED 03/16/2017 JESUS ROSARIO, FELIBERTO Clayton Ot I10 ESSENTIAL (PRIMARY) HYPERTENSION 03/16/2017 JESUS ROSARIO, FELIBERTO Clayton Ot I73. 9 PERIPHERAL VASCULAR DISEASE, UNSPECIFIED 03/16/2017 JESUS ROSARIO, FELIBERTO Clayton Ot J43. 9 EMPHYSEMA, UNSPECIFIED 03/16/2017 JESUS ROSARIO, FELIBERTO Clayton Ot K21. 9 GASTRO-ESOPHAGEAL REFLUX DISEASE WITHOUT 03/16/2017 JESUS ROSARIO, EFLIBERTO Clayton Ot L03.116 CELLULITIS OF LEFT LOWER LIMB 03/16/2017 JESUS ROSARIO, FELIBERTO Clayton Ot M19. 90 UNSPECIFIED OSTEOARTHRITIS, UNSPECIFIED 03/16/2017 JESUS ROSARIO, FELIBERTO Clayton Ot M79. 89 OTHER SPECIFIED SOFT TISSUE DISORDERS 03/16/2017 FELIBERTO LEE MD Ot Z79. 01 DRIVE THRU ORDER TAKER (CURRENT) USE OF ANTICOAGULANT 03/16/2017 JESUS ROSARIO, FELIBERTO Clayton Ot Z86.010 PERSONAL HISTORY OF COLONIC POLYPS 03/16/2017 JESUS ROSARIO, FELIBERTO Clayton Ot Z86.718 PERSONAL HISTORY OF OTHER VENOUS THROMBO 03/16/2017 FELIBERTO LEE MD Ot Z86. 72 PERSONAL HISTORY OF THROMBOPHLEBITIS 03/16/2017 FELIBERTO LEE MD Ot Z87. 01 PERSONAL HISTORY OF PNEUMONIA (RECURRENT 03/16/2017 FELIBERTO LEE MD Ot Z87. 19 PERSONAL HISTORY OF OTHER DISEASES OF TH 03/16/2017 FELIBERTO LEE MD Ot Z87.448 PERSONAL HISTORY OF OTHER DISEASES OF UR 03/16/2017 FELIBERTO LEE MD Ot Z87.891 PERSONAL HISTORY OF NICOTINE DEPENDENCE 03/16/2017 FELIBERTO LEE MD Ot Z90.710 ACQUIRED ABSENCE OF BOTH CERVIX AND UTER 03/16/2017 FELIBEROT LEE MD Ot Z90. 89 ACQUIRED ABSENCE OF OTHER ORGANS 03/19/2017 LEAH WOLF MD Ot R10. 31 RIGHT LOWER QUADRANT PAIN 03/19/2017 LEAH WOLF MD Ot Z95.828 PRESENCE OF OTHER VASCULAR IMPLANTS AND 03/21/2017 LEAH WOLF MD Ot R91. 1 SOLITARY PULMONARY NODULE 03/21/2017 LEAH WOLF MD Ot N64. 4 MASTODYNIA 03/26/2017 LEAH WOLF MD Ot N64. 4 MASTODYNIA 03/26/2017 LEAH WOLF MD, Ot J44. 1 CHRONIC OBSTRUCTIVE PULMONARY DISEASE W 04/02/2017 LEAH WOLF MD, Ot N64. 4 MASTODYNIA 04/08/2017 [place] Ot M17. 12 UNILATERAL PRIMARY OSTEOARTHRITIS, LEFT 04/08/2017 [place] Ot M23.222 DERANG OF POST HORN OF MEDIAL MENSC D/T 04/09/2017 LEAH WOLF MD, Ot J33. 9 NASAL POLYP, UNSPECIFIED 04/09/2017 LEAH WOLF MD Ot Z01.810 ENCOUNTER FOR PREPROCEDURAL CARDIOVASCUL 04/10/2017 [place] Ot M17. 12 UNILATERAL PRIMARY OSTEOARTHRITIS, LEFT 04/10/2017 [place] Ot M23.222 DERANG OF POST HORN OF MEDIAL MENSC D/T 04/12/2017 YANELI ROSARIO, HOWARD Logan Ot J33 .9 NASAL POLYP, UNSPECIFIED 04/12/2017 HOWARD GROVES MD, Ot J34.89 OTHER SPECIFIED DISORDERS OF NOSE AND NA 04/12/2017 HOWARD GROVES MD Ot N20 .1 CALCULUS OF URETER 04/12/2017 HOWARD GROVES MD Ot Z01.818 ENCOUNTER FOR OTHER PREPROCEDURAL EXAMIN 04/12/2017 HOWARD GROVES MD Ot Z11 .2 ENCOUNTER FOR SCREENING FOR OTHER BACTER 04/12/2017 HOWARD GROVES MD Ot Z79.01 DRIVE THRU ORDER TAKER (CURRENT) USE OF ANTICOAGULANT 04/15/2017 HOWARD GROVES MD Ot J33 .9 NASAL POLYP, UNSPECIFIED 04/15/2017 HOWARD GROVES MD, Ot J34.89 OTHER SPECIFIED DISORDERS OF NOSE AND NA 04/15/2017 HOWARD GROVES MD Ot N20 .1 CALCULUS OF URETER 04/15/2017 HOWARD GROVES MD Ot Z01.818 ENCOUNTER FOR OTHER PREPROCEDURAL EXAMIN 04/15/2017 HOWARD GROVES MD Ot Z11 .2 ENCOUNTER FOR SCREENING FOR OTHER BACTER 04/15/2017 HOWARD GROVES MD Ot Z79.01 DRIVE THRU ORDER TAKER (CURRENT) USE OF ANTICOAGULANT 04/16/2017 RONAN ROSARIO, ARIES Bass Ot Z87.4 42 PERSONAL HISTORY OF URINARY CALCULI 04/18/2017 Ot V12.51 HX- VENOUS THROMBOSIS EMBOLISM 04/18/2017 Ot V12.55 PER NUNU HISTORY OF PULMONARY EMBOLISM 04/18/2017 Ot 686.9 LOCA L SKIN INFECTION NOS 04/18/2017 Ot 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 62 ENCOUNT FOR LONG-TERM(CURRENT) USE OF AN 04/18/2017 LEAH WOLF MD, Ot V58. 83 ENCOUNTER FOR THERAPEUTIC DRUG MONITORIN 04/18/2017 LEAH WOLF MD, Ot Z51. 81 ENCOUNTER FOR THERAPEUTIC DRUG LEVEL MON 04/18/2017 LEAH WOLF MD, Ot Z79. 01 DRIVE THRU ORDER TAKER (CURRENT) USE OF ANTICOAGULANT 04/18/2017 LEAH WOLF MD, Ot Z86.718 PERSONAL HISTORY OF OTHER VENOUS THROMBO 04/19/2017 LEAH WOLF MD, Ot R91. 1 SOLITARY PULMONARY NODULE 04/20/2017 HOWARD GROVES MD, Ot E11 .9 TYPE 2 DIABETES MELLITUS WITHOUT COMPLIC 04/20/2017 HOWARD GROVES MD, Ot E78.00 PURE HYPERCHOLESTEROLEMIA, UNSPECIFIED 04/20/2017 HOWARD GROVES MD, Ot G57.93 UNSPECIFIED MONONEUROPATHY OF BILATERAL 04/20/2017 HOWARD GORVES MD Ot I10 ESSENTIAL (PRIMARY) HYPERTENSION 04/20/2017 HOWARD GROVES MD, Ot I73 .9 PERIPHERAL VASCULAR DISEASE, UNSPECIFIED 04/20/2017 HOWARD GROVES MD, Ot J32 .1 CHRONIC FRONTAL SINUSITIS 04/20/2017 HOWARD GROVES MD, Ot J33 .8 OTHER POLYP OF SINUS 04/20/2017 HOWARD GROVES MD, Ot J43 .9 EMPHYSEMA, UNSPECIFIED 04/20/2017 HOWARD GROVES MD, Ot J45.901 UNSPECIFIED ASTHMA WITH (ACUTE) EXACERBA 04/20/2017 HOWARD GROVES MD Ot K21 .9 GASTRO-ESOPHAGEAL REFLUX DISEASE WITHOUT 04/20/2017 HOWARD GROVES MD, Ot M19.91 PRIMARY OSTEOARTHRITIS, UNSPECIFIED SITE 04/20/2017 HOWARD GROVES MD, Ot N20 .1 CALCULUS OF URETER 04/20/2017 HOWARD GROVES MD, Ot N81.10 CYSTOCELE, UNSPECIFIED 04/20/2017 HOWARD GROVES MD, Ot N81 .6 RECTOCELE 04/20/2017 HOWARD GROVES MD Ot R09.02 HYPOXEMIA 04/20/2017 HOWARD GROVES MD, Ot Z79.01 DRIVE THRU ORDER TAKER (CURRENT) USE OF ANTICOAGULANT 04/20/2017 HOWARD GROVES MD Ot Z86.711 PERSONAL HISTORY OF PULMONARY EMBOLISM 04/20/2017 HOWARD GROVES MD, Ot Z86.718 PERSONAL HISTORY OF OTHER VENOUS THROMBO 04/20/2017 HOWARD GROVES MD, Ot Z90.710 ACQUIRED ABSENCE OF BOTH CERVIX AND UTER 04/23/2017 LEAH WOLF MD Ot J44. 1 CHRONIC OBSTRUCTIVE PULMONARY DISEASE W 04/29/2017 TEDDY PHILIP MD, Ot K57.30 DVRTCLOS OF LG INT W/O PERFORATION OR AB 04/29/2017 TEDDY PHILIP MD, Ot N20.2 CALCULUS OF KIDNEY WITH CALCULUS OF URET 04/29/2017 TEDDY PHILIP MD, Ot R59.0 LOCALIZED ENLARGED LYMPH NODES 05/01/2017 [place], CHULA D AVIATION MANAGER Ot M17. 12 UNILATERAL PRIMARY OSTEOARTHRITIS, LEFT 05/01/2017 [place] AVIATION MANAGER Ot M23.222 DERANG OF POST HORN OF MEDIAL MENSC D/T 05/06/2017 ALVA BENJAMIN MD Ot E78.00 PURE HYPERCHOLESTEROLEMIA, UNSPECIFIED 05/06/2017 ALVA BENJAMIN MD Ot E87.6 HYPOKALEMIA 05/06/2017 ALVA BENJAMIN MD Ot F41.9 ANXIETY DISORDER, UNSPECIFIED 05/06/2017 ALVA BENJAMIN MD Ot I10 ESSENTIAL (PRIMARY) HYPERTENSION 05/06/2017 ALVA BENJAMIN MD Ot I73.9 PERIPHERAL VASCULAR DISEASE, UNSPECIFIED 05/06/2017 ALVA BENJAMIN MD Ot J43.9 EMPHYSEMA, UNSPECIFIED 05/06/2017 ALVA BENJAMIN MD Ot L03.116 CELLULITIS OF LEFT LOWER LIMB 05/06/2017 ALVA BENJAMIN MD Ot L97.929 NON-PRS CHRONIC ULC UNSP PRT OF L LOW LE 05/06/2017 ALVA BENJAMIN MD Ot M17.12 UNILATERAL PRIMARY OSTEOARTHRITIS, LEFT 05/06/2017 ALVA BENJAMIN MD Ot Z79.01 CARE HOME (CURRENT) USE OF ANTICOAGULANT 05/06/2017 ALVA BENJAMIN MD Ot Z80.0 FAMILY HISTORY OF MALIGNANT NEOPLASM OF 05/06/2017 ALVA BENJAMIN MD Ot Z80.1 FAMILY HISTORY OF MALIG NEOPLASM OF TRAC 05/06/2017 ALVA BENJAMIN MD Ot Z82.49 FAMILY HX OF ISCHEM HEART DIS AND OTH DI 05/06/2017 ALVA BENJAMIN MD Ot Z86.718 PERSONAL HISTORY OF OTHER VENOUS THROMBO 05/06/2017 ALVA BENJAMIN MD Ot Z87.01 PERSONAL HISTORY OF PNEUMONIA (RECURRENT 05/06/2017 ALVA BENJAMIN MD Ot Z87.442 PERSONAL HISTORY OF URINARY CALCULI 05/06/2017 ALVA BENJAMIN MD Ot Z87.59 PERSONAL HISTORY OF COMP OF PREG, CHLDBR 05/06/2017 ALVA BENJAMIN MD, Ot Z87.891 PERSONAL HISTORY OF NICOTINE DEPENDENCE 05/06/2017 ALVA BENJAMIN MD, Ot Z90.49 ACQUIRED ABSENCE OF OTHER SPECIFIED PART 05/06/2017 ALVA BENJAMIN MD, Ot Z90.710 ACQUIRED ABSENCE OF BOTH CERVIX AND UTER 05/09/2017 HOWARD SALDANA MD, Ot I70.[address] ARTERIES OF LEFT LEG W ULC 05/09/2017 HOWARD SALDANA MD, Ot I87.321 CHRONIC VENOUS HYPERTENSION W INFLAMMATI 05/09/2017 HOWARD SALDANA MD, Ot I87.332 CHRONIC VENOUS HTN W ULCER AND INFLAMMAT 05/09/2017 HOWARD SALDANA MD, Ot I89 .0 LYMPHEDEMA, NOT ELSEWHERE CLASSIFIED 05/09/2017 HOWARD SALDANA MD, Ot L97.222 NON-PRESSURE CHRONIC ULCER OF LEFT CALF 05/15/2017 HOWARD SALDANA MD, Ot I70.[address] [place] ARTERIES OF LEFT LEG W C 05/15/2017 HOWARD SALDANA MD, Ot I87.321 CHRONIC VENOUS HYPERTENSION W INFLAMMATI 05/15/2017 HOWARD SALDANA MD, Ot I87.332 CHRONIC VENOUS HTN W ULCER AND INFLAMMAT 05/15/2017 HOWARD SALDANA MD, Ot I89 .0 LYMPHEDEMA, NOT ELSEWHERE CLASSIFIED 05/15/2017 HOWARD SALDANA MD, Ot L97.222 NON-PRESSURE CHRONIC ULCER OF LEFT CALF 05/16/2017 [place]A LA[place] Ot M17. 12 UNILATERAL PRIMARY OSTEOARTHRITIS, LEFT 05/16/2017 CHULA LAKEP Ot M23.262 DERANGEMENT OF LAT MENSC DUE TO OLD TEAR 05/20/2017 PRERNA MAYFIELD MD, Ot E78.00 PURE HYPERCHOLESTEROLEMIA, UNSPECIFIED 05/20/2017 PRERNA MAYFIELD MD, Ot E87 .0 HYPEROSMOLALITY AND HYPERNATREMIA 05/20/2017 PRERNA MAYFIELD MD, Ot E87 .6 HYPOKALEMIA 05/20/2017 PRERNA MAYFIELD MD, Ot F41 .9 ANXIETY DISORDER, UNSPECIFIED 05/20/2017 PRERNA MAYFIELD MD, Ot G47.33 OBSTRUCTIVE SLEEP APNEA (ADULT) (PEDIATR 05/20/2017 PRERNA MAYFIELD MD, Ot I10 ESSENTIAL (PRIMARY) HYPERTENSION 05/20/2017 PRERNA MAYFIELD MD, Ot I73 .9 PERIPHERAL VASCULAR DISEASE, UNSPECIFIED 05/20/2017 PRERNA MAYFIELD MD, Ot I83.93 ASYMPTOMATIC VARICOSE VEINS OF BILATERAL 05/20/2017 PRERNA MAYFIELD MD, Ot J32 .9 CHRONIC SINUSITIS, UNSPECIFIED 05/20/2017 PRERNA MAYFIELD MD, Ot J43 .9 EMPHYSEMA, UNSPECIFIED 05/20/2017 PRERNA MAYFIELD MD, Ot J45.901 UNSPECIFIED ASTHMA WITH (ACUTE) EXACERBA 05/20/2017 PRERNA MAYFIELD MD, Ot J96.21 ACUTE AND CHRONIC RESPIRATORY FAILURE WI 05/20/2017 PRERNA MAYFIELD MD, Ot J96.22 ACUTE AND CHRONIC RESPIRATORY FAILURE WI 05/20/2017 PRERNA MAYFIELD MD, Ot K21 .9 GASTRO-ESOPHAGEAL REFLUX DISEASE WITHOUT 05/20/2017 PRERNA MAYFIELD MD, Ot K59.09 OTHER CONSTIPATION 05/20/2017 PRERNA MAYFIELD MD, Ot M19.91 PRIMARY OSTEOARTHRITIS, UNSPECIFIED SITE 05/20/2017 PRERNA MAYFIELD MD, Ot R73.03 PREDIABETES 05/20/2017 PRERNA MAYFIELD MD, Ot Z79.01 DRIVE THRU ORDER TAKER (CURRENT) USE OF ANTICOAGULANT 05/20/2017 PRERNA MAYFIELD MD, Ot Z86.711 PERSONAL HISTORY OF PULMONARY EMBOLISM 05/20/2017 PRERNA MAYFIELD MD, Ot Z86.718 PERSONAL HISTORY OF OTHER VENOUS THROMBO 05/20/2017 PRERNA MAYFIELD MD, Ot Z87.891 PERSONAL HISTORY OF NICOTINE DEPENDENCE 05/24/2017 HOWARD SALDANA MD, Ot I87.321 CHRONIC VENOUS HYPERTENSION W INFLAMMATI 05/24/2017 HOWARD SALDANA MD, Ot I87.332 CHRONIC VENOUS HTN W ULCER AND INFLAMMAT 05/24/2017 HOWARD SALDANA MD, Ot I89 .0 LYMPHEDEMA, NOT ELSEWHERE CLASSIFIED 05/24/2017 HOWARD SALDANA MD, Ot L97.222 NON-PRESSURE CHRONIC ULCER OF LEFT CALF 05/28/2017 HOWARD SALDANA MD, Ot I87.321 CHRONIC VENOUS HYPERTENSION W INFLAMMATI 05/28/2017 HOWARD SALDANA MD, Ot I87.332 CHRONIC VENOUS HTN W ULCER AND INFLAMMAT 05/28/2017 HOWARD SALDANA MD Ot I89 .0 LYMPHEDEMA, NOT ELSEWHERE CLASSIFIED 05/28/2017 HOWARD SALDANA MD, Ot L97.222 NON-PRESSURE CHRONIC ULCER OF LEFT CALF 05/30/2017 HOWARD SALDANA MD Ot I87.321 CHRONIC VENOUS HYPERTENSION W INFLAMMATI 05/30/2017 HOWARD SALDANA MD Ot I87.332 CHRONIC VENOUS HTN W ULCER AND INFLAMMAT 05/30/2017 HOWARD SALDANA MD Ot I89 .0 LYMPHEDEMA, NOT ELSEWHERE CLASSIFIED 05/30/2017 HOWARD SALDANA MD Ot L97.222 NON-PRESSURE CHRONIC ULCER OF LEFT CALF 05/30/2017 HOWARD HUGHES MD Ot M23.8X2 OTHER INTERNAL DERANGEMENTS OF LEFT KNEE 05/30/2017 HOWARD HUGHES MD Ot Z01.818 ENCOUNTER FOR OTHER PREPROCEDURAL EXAMIN 05/30/2017 HOWARD HUGHES MD Ot Z88.6 ALLERGY STATUS TO ANALGESIC AGENT STATUS 05/30/2017 HOWARD HUGHES MD Ot Z88.7 ALLERGY STATUS TO SERUM AND VACCINE STAT 05/30/2017 HOWARD SALDANA MD Ot I87.321 CHRONIC VENOUS HYPERTENSION W INFLAMMATI 05/30/2017 HOWARD SALDANA MD Ot I87.332 CHRONIC VENOUS HTN W ULCER AND INFLAMMAT 05/30/2017 HOWARD SALDANA MD Ot I89 .0 LYMPHEDEMA, NOT ELSEWHERE CLASSIFIED 05/30/2017 HOWARD SALDANA MD Ot L97.222 NON-PRESSURE CHRONIC ULCER OF LEFT CALF 05/31/2017 HOWARD HUGHES MD Ot M23.8X2 OTHER INTERNAL DERANGEMENTS OF LEFT KNEE 05/31/2017 HOWARD HUGHES MD Ot Z01.818 ENCOUNTER FOR OTHER PREPROCEDURAL EXAMIN 05/31/2017 HOWARD HUGHES MD Ot Z88.6 ALLERGY STATUS TO ANALGESIC AGENT STATUS 05/31/2017 HOWARD HUGHES MD Ot Z88.7 ALLERGY STATUS TO SERUM AND VACCINE STAT 06/04/2017 HOWARD SALDANA MD Ot I87.321 CHRONIC VENOUS HYPERTENSION W INFLAMMATI 06/04/2017 HOWARD SALDANA MD Ot I87.332 CHRONIC VENOUS HTN W ULCER AND INFLAMMAT 06/04/2017 HOWARD SALDANA MD Ot I89 .0 LYMPHEDEMA, NOT ELSEWHERE CLASSIFIED 06/04/2017 HOWARD SALDANA MD Ot L97.222 NON-PRESSURE CHRONIC ULCER OF LEFT CALF 06/04/2017 HOWARD SALDANA MD Ot I87.321 CHRONIC VENOUS HYPERTENSION W INFLAMMATI 06/04/2017 HOWARD SALDANA MD, Ot I87.332 CHRONIC VENOUS HTN W ULCER AND INFLAMMAT 06/04/2017 HOWARD SALDANA MD Ot I89 .0 LYMPHEDEMA, NOT ELSEWHERE CLASSIFIED 06/04/2017 HOWARD SALDANA MD, Ot L97.222 NON-PRESSURE CHRONIC ULCER OF LEFT CALF 06/06/2017 HOWARD HUGHES MD, Ot G47.33 OBSTRUCTIVE SLEEP APNEA (ADULT) (PEDIATR 06/06/2017 HOWARD HUGHES MD, Ot I1 0 ESSENTIAL (PRIMARY) HYPERTENSION 06/06/2017 HOWARD HUGHES MD, Ot J44.9 CHRONIC OBSTRUCTIVE PULMONARY DISEASE, U 06/06/2017 HOWARD HUGHES MD, Ot J45.909 UNSPECIFIED ASTHMA, UNCOMPLICATED 06/06/2017 HOWARD HUGHES MD Ot M22.42 CHONDROMALACIA PATELLAE, LEFT KNEE 06/06/2017 HOWARD HUGHES MD Ot M23.8X2 OTHER INTERNAL DERANGEMENTS OF LEFT KNEE 06/06/2017 HOWARD HUGHES MD Ot Z79.899 OTHER CARE HOME (CURRENT) DRUG THERAPY 06/06/2017 HOWARD HUGHES MD, Ot Z86.718 PERSONAL HISTORY OF OTHER VENOUS THROMBO 06/06/2017 HOWARD HUGHES MD Ot Z88.6 ALLERGY STATUS TO ANALGESIC AGENT STATUS 06/06/2017 HOWARD HUGHES MD Ot Z88.7 ALLERGY STATUS TO SERUM AND VACCINE STAT 06/06/2017 HOWARD HUGHES MD, Ot G47.33 OBSTRUCTIVE SLEEP APNEA (ADULT) (PEDIATR 06/06/2017 HOWARD HUGHES MD Ot I1 0 ESSENTIAL (PRIMARY) HYPERTENSION 06/06/2017 HOWARD HUGHES MD Ot J44.9 CHRONIC OBSTRUCTIVE PULMONARY DISEASE, U 06/06/2017 HOWARD HUGHES MD, Ot J45.909 UNSPECIFIED ASTHMA, UNCOMPLICATED 06/06/2017 HOWARD HUGHES MD Ot M22.42 CHONDROMALACIA PATELLAE, LEFT KNEE 06/06/2017 HOWARD HUGHES MD Ot M23.8X2 OTHER INTERNAL DERANGEMENTS OF LEFT KNEE 06/06/2017 HOWARD HUGHES MD Ot Z79.899 OTHER CARE HOME (CURRENT) DRUG THERAPY 06/06/2017 HOWARD HUGHES MD, Ot Z86.718 PERSONAL HISTORY OF OTHER VENOUS THROMBO 06/06/2017 HOWARD HUGHES MD, Ot Z88.6 ALLERGY STATUS TO ANALGESIC AGENT STATUS 06/06/2017 HOWARD HUGHES MD Ot Z88.7 ALLERGY STATUS TO SERUM AND VACCINE STAT 06/06/2017 HOWARD HUGHES MD Ot G47.33 OBSTRUCTIVE SLEEP APNEA (ADULT) (PEDIATR 06/06/2017 HOWARD HUGHES MD, Ot I1 0 ESSENTIAL (PRIMARY) HYPERTENSION 06/06/2017 HOWARD HUGHES MD, Ot J44.9 CHRONIC OBSTRUCTIVE PULMONARY DISEASE, U 06/06/2017 HOWARD HUGHES MD, Ot J45.909 UNSPECIFIED ASTHMA, UNCOMPLICATED 06/06/2017 HOWARD HUGHES MD, Ot M22.42 CHONDROMALACIA PATELLAE, LEFT KNEE 06/06/2017 HOWARD HUGHES MD Ot M23.8X2 OTHER INTERNAL DERANGEMENTS OF LEFT KNEE 06/06/2017 HOWARD HUGHES MD, Ot Z79.899 OTHER CARE HOME (CURRENT) DRUG THERAPY 06/06/2017 HOWARD HUGHES MD, Ot Z86.718 PERSONAL HISTORY OF OTHER VENOUS THROMBO 06/06/2017 HOWARD HUGHES MD, Ot Z88.6 ALLERGY STATUS TO ANALGESIC AGENT STATUS 06/06/2017 HOWARD HUGHES MD Ot Z88.7 ALLERGY STATUS TO SERUM AND VACCINE STAT 06/09/2017 SHELL FOX MD Ot E78.00 PURE HYPERCHOLESTEROLEMIA, UNSPECIFIED 06/09/2017 SHELL FOX MD Ot F14.10 COCAINE ABUSE, UNCOMPLICATED 06/09/2017 SHELL FOX MD Ot F41 .9 ANXIETY DISORDER, UNSPECIFIED 06/09/2017 SHELL FOX MD Ot I10 ESSENTIAL (PRIMARY) HYPERTENSION 06/09/2017 SHELL FOX MD Ot I73 .9 PERIPHERAL VASCULAR DISEASE, UNSPECIFIED 06/09/2017 SHELL FOX MD Ot J43 .9 EMPHYSEMA, UNSPECIFIED 06/09/2017 SHELL FOX MD Ot K21 .9 GASTRO-ESOPHAGEAL REFLUX DISEASE WITHOUT 06/09/2017 SHELL FOX MD Ot R07.81 PLEURODYNIA 06/09/2017 SHELL FOX MD, Ot S20.212A CONTUSION OF LEFT FRONT WALL OF THORAX, 06/09/2017 SHELL FOX MD, Ot X50.0XXA OVEREXERTION FROM STRENUOUS MOVEMENT OR 06/09/2017 SHELL FOX MD, Ot Z79.01 CARE HOME (CURRENT) USE OF ANTICOAGULANT 06/09/2017 SHELL FOX MD, Ot Z80 .0 FAMILY HISTORY OF MALIGNANT NEOPLASM OF 06/09/2017 SHELL FOX MD, Ot Z80 .1 FAMILY HISTORY OF MALIG NEOPLASM OF TRAC 06/09/2017 SHELL FOX MD, Ot Z82.49 FAMILY HX OF ISCHEM HEART DIS AND OTH DI 06/09/2017 SHELL FOX MD, Ot Z86.010 PERSONAL HISTORY OF COLONIC POLYPS 06/09/2017 SHELL FOX MD, Ot Z86.718 PERSONAL HISTORY OF OTHER VENOUS THROMBO 06/09/2017 SHELL FOX MD, Ot Z87.01 PERSONAL HISTORY OF PNEUMONIA (RECURRENT 06/09/2017 SHELL FOX MD, Ot Z87.19 PERSONAL HISTORY OF OTHER DISEASES OF TH 06/09/2017 SHELL FOX MD, Ot Z87.442 PERSONAL HISTORY OF URINARY CALCULI 06/09/2017 SHELL FOX MD, Ot Z87.59 PERSONAL HISTORY OF COMP OF PREG, CHLDBR 06/09/2017 SHELL FOX MD, Ot Z87.891 PERSONAL HISTORY OF NICOTINE DEPENDENCE 06/09/2017 SHELL FOX MD, Ot Z90.49 ACQUIRED ABSENCE OF OTHER SPECIFIED PART 06/09/2017 SHELL FOX MD, Ot Z90.710 ACQUIRED ABSENCE OF BOTH CERVIX AND UTER 06/09/2017 SHELL FOX MD, Ot Z96.652 PRESENCE OF LEFT ARTIFICIAL KNEE JOINT 06/11/2017 HOWARD HGUHES MD, Ot G47.33 OBSTRUCTIVE SLEEP APNEA (ADULT) (PEDIATR 06/11/2017 HOWARD HUGHES MD, Ot I1 0 ESSENTIAL (PRIMARY) HYPERTENSION 06/11/2017 HOWARD HUGHES MD, Ot J44.9 CHRONIC OBSTRUCTIVE PULMONARY DISEASE, U 06/11/2017 HOWARD HUGHES MD, Ot J45.909 UNSPECIFIED ASTHMA, UNCOMPLICATED 06/11/2017 HOWARD HUGHES MD, Ot M22.42 CHONDROMALACIA PATELLAE, LEFT KNEE 06/11/2017 HOWARD HUGHES MD, Ot M23.8X2 OTHER INTERNAL DERANGEMENTS OF LEFT KNEE 06/11/2017 HOWARD HUGHES MD, Ot Z79.[address] THRU ORDER TAKER (CURRENT) DRUG THERAPY 06/11/2017 HOWARD HUGHES MD, Ot Z86.718 PERSONAL HISTORY OF OTHER VENOUS THROMBO 06/11/2017 HOWARD HUGHES MD, Ot Z88.6 ALLERGY STATUS TO ANALGESIC AGENT STATUS 06/11/2017 HOWARD HUGHES MD, Ot Z88.7 ALLERGY STATUS TO SERUM AND VACCINE STAT 06/11/2017 SHELL FOX MD Ot E78.00 PURE HYPERCHOLESTEROLEMIA, UNSPECIFIED 06/11/2017 SHELL FOX MD Ot F14.10 COCAINE ABUSE, UNCOMPLICATED 06/11/2017 SHELL FOX MD Ot F41 .9 ANXIETY DISORDER, UNSPECIFIED 06/11/2017 SHELL FOX MD Ot I10 ESSENTIAL (PRIMARY) HYPERTENSION 06/11/2017 SHELL FOX MD Ot I73 .9 PERIPHERAL VASCULAR DISEASE, UNSPECIFIED 06/11/2017 SHELL FOX MD Ot J43 .9 EMPHYSEMA, UNSPECIFIED 06/11/2017 SHELL FOX MD Ot K21 .9 GASTRO-ESOPHAGEAL REFLUX DISEASE WITHOUT 06/11/2017 SHELL FOX MD Ot R07.81 PLEURODYNIA 06/11/2017 SHELL FOX MD Ot S20.212A CONTUSION OF LEFT FRONT WALL OF THORAX, 06/11/2017 SHELL FOX MD Ot X50.0XXA OVEREXERTION FROM STRENUOUS MOVEMENT OR 06/11/2017 SHELL FOX MD Ot Z79.01 CARE HOME (CURRENT) USE OF ANTICOAGULANT 06/11/2017 SHELL FOX MD Ot Z80 .0 FAMILY HISTORY OF MALIGNANT NEOPLASM OF 06/11/2017 SHELL FOX MD, Ot Z80 .1 FAMILY HISTORY OF MALIG NEOPLASM OF TRAC 06/11/2017 SHELL FOX MD Ot Z82.49 FAMILY HX OF ISCHEM HEART DIS AND OTH DI 06/11/2017 SHELL FOX MD Ot Z86.010 PERSONAL HISTORY OF COLONIC POLYPS 06/11/2017 SHELL FOX MD, Ot Z86.718 PERSONAL HISTORY OF OTHER VENOUS THROMBO 06/11/2017 SHELL FOX MD, Ot Z87.01 PERSONAL HISTORY OF PNEUMONIA (RECURRENT 06/11/2017 SHELL FOX MD, Ot Z87.19 PERSONAL HISTORY OF OTHER DISEASES OF TH 06/11/2017 SHELL FOX MD, Ot Z87.442 PERSONAL HISTORY OF URINARY CALCULI 06/11/2017 SHELL FOX MD, Ot Z87.59 PERSONAL HISTORY OF COMP OF PREG, CHLDBR 06/11/2017 SHELL FOX MD, Ot Z87.891 PERSONAL HISTORY OF NICOTINE DEPENDENCE 06/11/2017 SHELL FOX MD, Ot Z90.49 ACQUIRED ABSENCE OF OTHER SPECIFIED PART 06/11/2017 SHELL FOX MD, Ot Z90.710 ACQUIRED ABSENCE OF BOTH CERVIX AND UTER 06/11/2017 SHELL FOX MD, Ot Z96.652 PRESENCE OF LEFT ARTIFICIAL KNEE JOINT 06/11/2017 HOWARD SALDANA MD Ot I87.321 CHRONIC VENOUS HYPERTENSION W INFLAMMATI 06/11/2017 HOWARD SALDANA MD Ot I87.332 CHRONIC VENOUS HTN W ULCER AND INFLAMMAT 06/11/2017 HOWARD SALDANA MD Ot I89 .0 LYMPHEDEMA, NOT ELSEWHERE CLASSIFIED 06/11/2017 HOWARD SALDANA MD Ot L97.222 NON-PRESSURE CHRONIC ULCER OF LEFT CALF 06/19/2017 KAMRAN LINDQUIST APRN Ot I10 ESSENTIAL (PRIMARY) HYPERTENSION 06/19/2017 KAMRAN LINDQUIST APRN Ot J44 .1 CHRONIC OBSTRUCTIVE PULMONARY DISEASE W 06/19/2017 KAMRAN LINDQUIST APRN Ot R05 COUGH 06/19/2017 KAMRAN LINDQUIST APRN Ot Z79.01 DRIVE THRU ORDER TAKER (CURRENT) USE OF ANTICOAGULANT 06/19/2017 KAMRAN LINDQUIST APRN Ot Z79.899 OTHER CARE HOME (CURRENT) DRUG THERAPY 06/19/2017 KAMRAN LINDQUIST APRN Ot Z86.711 PERSONAL HISTORY OF PULMONARY EMBOLISM 06/19/2017 KAMRAN LINDQUIST APRN Ot Z86.718 PERSONAL HISTORY OF OTHER VENOUS THROMBO 06/19/2017 KAMRAN LINDQUIST APRN Ot Z87.891 PERSONAL HISTORY OF NICOTINE DEPENDENCE 06/19/2017 KAMRAN LINDQUIST APRN Ot E78.00 PURE HYPERCHOLESTEROLEMIA, UNSPECIFIED 06/19/2017 KAMRAN LINDQUIST APRN Ot F41 .9 ANXIETY DISORDER, UNSPECIFIED 06/19/2017 KAMRAN LINDQUIST APRN Ot G47.30 SLEEP APNEA, UNSPECIFIED 06/19/2017 KAMRAN LINDQUIST APRN Ot I10 ESSENTIAL (PRIMARY) HYPERTENSION 06/19/2017 KAMRAN LINDQUIST APRN Ot I73 .9 PERIPHERAL VASCULAR DISEASE, UNSPECIFIED 06/19/2017 KAMRAN LINDQUIST APRN Ot J44 .1 CHRONIC OBSTRUCTIVE PULMONARY DISEASE W 06/19/2017 KAMRAN LINDQUIST APRN Ot K21 .9 GASTRO-ESOPHAGEAL REFLUX DISEASE WITHOUT 06/19/2017 KAMRAN LINDQUIST APRN Ot K44 .9 DIAPHRAGMATIC HERNIA WITHOUT OBSTRUCTION 06/19/2017 KAMRAN LINDQUIST APRN Ot K59.09 OTHER CONSTIPATION 06/19/2017 KAMRAN LINDQUIST APRN Ot M19.91 PRIMARY OSTEOARTHRITIS, UNSPECIFIED SITE 06/19/2017 KAMRAN LINDQUIST APRN Ot R05 COUGH 06/19/2017 KAMRAN LINDQUIST APRN Ot Z79.01 CARE HOME (CURRENT) USE OF ANTICOAGULANT 06/19/2017 KAMRAN LINDQUIST APRN Ot Z79.[address] THRU ORDER TAKER (CURRENT) DRUG THERAPY 06/19/2017 KAMRAN LINDQUIST APRN Ot Z86.711 PERSONAL HISTORY OF PULMONARY EMBOLISM 06/19/2017 KAMRAN LINDQUIST APRN Ot Z86.718 PERSONAL HISTORY OF OTHER VENOUS THROMBO 06/19/2017 KAMRAN LINDQUIST APRN Ot Z87.891 PERSONAL HISTORY OF NICOTINE DEPENDENCE 06/23/2017 LEAH WOLF MD, Ot J44. 1 CHRONIC OBSTRUCTIVE PULMONARY DISEASE W 06/24/2017 LEAH WOLF MD, Ot J44. 1 CHRONIC OBSTRUCTIVE PULMONARY DISEASE W 07/17/2017 LEAH WOLF MD, Ot J44. 1 CHRONIC OBSTRUCTIVE PULMONARY DISEASE W 08/05/2017 TEDDY PHILIP MD Ot K92.1 MELENA 08/05/2017 TEDDY PHILIP MD Ot L98.9 DISORDER OF THE SKIN AND SUBCUTANEOUS TI 08/05/2017 TEDDY PHILIP MD Ot Z01.81 8 ENCOUNTER FOR OTHER PREPROCEDURAL EXAMIN 08/05/2017 Ot V12.51 HX- VENOUS THROMBOSIS EMBOLISM 08/05/2017 Ot V12.55 PER NUNU HISTORY OF PULMONARY EMBOLISM 08/05/2017 Ot 686.9 LOCA L SKIN INFECTION NOS 08/05/2017 Ot 454.9 ASYM PTOMATIC VARICOSE VEINS 08/05/2017 Ot 998.83 NON -HEALING SURG WOUND 08/05/2017 Ot 998.89 OT ER SPEC COMPLICATIONS OF PROCEDURES N 08/05/2017 LEAH WOLF MD, Ot V58. 62 ENCOUNT FOR LONG-TERM(CURRENT) USE OF AN 08/05/2017 LEAH WOLF MD, Ot V58. 83 ENCOUNTER FOR THERAPEUTIC DRUG MONITORIN 08/05/2017 LEAH WOLF MD, Ot Z51. 81 ENCOUNTER FOR THERAPEUTIC DRUG LEVEL MON 08/05/2017 LEAH WOLF MD, Ot Z79. 01 DRIVE THRU ORDER TAKER (CURRENT) USE OF ANTICOAGULANT 08/05/2017 LEAH WOLF MD, Ot Z86.718 PERSONAL HISTORY OF OTHER VENOUS THROMBO 08/06/2017 TEDDY PHILIP MD Ot K92.1 MELENA 08/06/2017 TEDDY PHILIP MD Ot L98.9 DISORDER OF THE SKIN AND SUBCUTANEOUS TI 08/06/2017 TEDDY PHILIP MD Ot Z01.81 8 ENCOUNTER FOR OTHER PREPROCEDURAL EXAMIN 08/08/2017 Ot V12.51 HX- VENOUS THROMBOSIS EMBOLISM 08/08/2017 Ot V12.55 PER NUNU HISTORY OF PULMONARY EMBOLISM 08/08/2017 Ot 686.9 LOCA L SKIN INFECTION NOS 08/08/2017 Ot 454.9 ASYM PTOMATIC VARICOSE VEINS 08/08/2017 Ot 998.83 NON -HEALING SURG WOUND 08/08/2017 Ot 998.89 OT ER SPEC COMPLICATIONS OF PROCEDURES N 08/08/2017 LEAH WOLF MD, Ot V58. 62 ENCOUNT FOR LONG-TERM(CURRENT) USE OF AN 08/08/2017 LEAH WOLF MD, Ot V58. 83 ENCOUNTER FOR THERAPEUTIC DRUG MONITORIN 08/08/2017 LEAH WOLF MD, Ot Z51. 81 ENCOUNTER FOR THERAPEUTIC DRUG LEVEL MON 08/08/2017 LEAH WOLF MD, Ot Z79. 01 CARE HOME (CURRENT) USE OF ANTICOAGULANT 08/08/2017 LEAH WOLF MD, Ot Z86.718 PERSONAL HISTORY OF OTHER VENOUS THROMBO 08/08/2017 Ot V12.51 HX- VENOUS THROMBOSIS EMBOLISM 08/08/2017 Ot V12.55 PER NUNU HISTORY OF PULMONARY EMBOLISM 08/08/2017 Ot 686.9 LOCA L SKIN INFECTION NOS 08/08/2017 Ot 454.9 ASYM PTOMATIC VARICOSE VEINS 08/08/2017 Ot 998.83 NON -HEALING SURG WOUND 08/08/2017 Ot 998.89 OTH ER SPEC COMPLICATIONS OF PROCEDURES N 08/08/2017 LEAH WOLF MD, Ot V58. 62 ENCOUNT FOR LONG-TERM(CURRENT) USE OF AN 08/08/2017 LEAH WOLF MD, Ot V58. 83 ENCOUNTER FOR THERAPEUTIC DRUG MONITORIN 08/08/2017 LEAH WOLF MD, Ot Z51. 81 ENCOUNTER FOR THERAPEUTIC DRUG LEVEL MON 08/08/2017 LEAH WOLF MD, Ot Z79. 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 08/08/2017 TEDDY PHILIP MD, Ot I10 ESSENTIAL (PRIMARY) HYPERTENSION 08/08/2017 TEDDY PHILIP MD, Ot J18.9 PNEUMONIA, UNSPECIFIED ORGANISM 08/08/2017 TEDDY PHILIP MD, Ot J44.9 CHRONIC OBSTRUCTIVE PULMONARY DISEASE, U 08/08/2017 TEDDY PHILIP MD, Ot K21.0 GASTRO-ESOPHAGEAL REFLUX DISEASE WITH ES 08/08/2017 TEDDY PHILIP MD, Ot K29.60 OTHER GASTRITIS WITHOUT BLEEDING 08/08/2017 TEDDY PHILIP MD, Ot K44.9 DIAPHRAGMATIC HERNIA WITHOUT OBSTRUCTION 08/08/2017 TEDDY PHILIP MD, Ot K57.30 DVRTCLOS OF LG INT W/O PERFORATION OR AB 08/08/2017 TEDDY PHILIP MD, Ot K64.8 OTHER HEMORRHOIDS 08/08/2017 TEDDY PHILIP MD, Ot Z79.01 DRIVE THRU ORDER TAKER (CURRENT) USE OF ANTICOAGULANT 08/08/2017 TEDDY PHILIP MD, Ot Z79.89 9 OTHER CARE HOME (CURRENT) DRUG THERAPY 08/08/2017 TEDDY PHILIP MD, Ot Z80.0 FAMILY HISTORY OF MALIGNANT NEOPLASM OF 08/08/2017 TEDDY PHILIP MD, Ot Z86.71 1 PERSONAL HISTORY OF PULMONARY EMBOLISM 08/08/2017 TEDDY PHILIP MD, Ot Z86.71 8 PERSONAL HISTORY OF OTHER VENOUS THROMBO 08/08/2017 TEDDY PHILIP MD, Ot Z87.89 1 PERSONAL HISTORY OF NICOTINE DEPENDENCE 08/08/2017 TEDDY PHILIP MD, Ot Z88.6 ALLERGY STATUS TO ANALGESIC AGENT STATUS 08/08/2017 TEDDY PHILIP MD, Ot Z88.7 ALLERGY STATUS TO SERUM AND VACCINE STAT 08/08/2017 TEDDY PHILIP MD, Ot 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 08/08/2017 TEDDY PHILIP MD, Ot I10 ESSENTIAL (PRIMARY) HYPERTENSION 08/08/2017 TEDDY PHILIP MD, Ot J18.9 PNEUMONIA, UNSPECIFIED ORGANISM 08/08/2017 TEDDY PHILIP MD, Ot J44.9 CHRONIC OBSTRUCTIVE PULMONARY DISEASE, U 08/08/2017 TEDDY PHILIP MD, Ot K21.0 GASTRO-ESOPHAGEAL REFLUX DISEASE WITH ES 08/08/2017 TEDDY PHILIP MD, Ot K29.60 OTHER GASTRITIS WITHOUT BLEEDING 08/08/2017 TEDDY PHILIP MD, Ot K44.9 DIAPHRAGMATIC HERNIA WITHOUT OBSTRUCTION 08/08/2017 TEDDY PHILIP MD, Ot K57.30 DVRTCLOS OF LG INT W/O PERFORATION OR AB 08/08/2017 TEDDY PHILIP MD, Ot K64.8 OTHER HEMORRHOIDS 08/08/2017 TEDDY PHILIP MD, Ot Z79.01 CARE HOME (CURRENT) USE OF ANTICOAGULANT 08/08/2017 TEDDY PHILIP MD, Ot Z79.89 9 OTHER CARE HOME (CURRENT) DRUG THERAPY 08/08/2017 TEDDY PHILIP MD, Ot Z80.0 FAMILY HISTORY OF MALIGNANT NEOPLASM OF 08/08/2017 TEDDY PHILIP MD, Ot Z86.71 1 PERSONAL HISTORY OF PULMONARY EMBOLISM 08/08/2017 TEDDY PHILIP MD, Ot Z86.71 8 PERSONAL HISTORY OF OTHER VENOUS THROMBO 08/08/2017 TEDDY PHILIP MD, Ot Z87.89 1 PERSONAL HISTORY OF NICOTINE DEPENDENCE 08/08/2017 TEDDY PHILIP MD, Ot Z88.6 ALLERGY STATUS TO ANALGESIC AGENT STATUS 08/08/2017 TEDDY PHILIP MD, Ot Z88.7 ALLERGY STATUS TO SERUM AND VACCINE STAT 08/09/2017 TEDDY PHILIP MD, Ot 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 08/09/2017 TEDDY PHILIP MD, Ot I10 ESSENTIAL (PRIMARY) HYPERTENSION 08/09/2017 TEDDY PHILIP MD, Ot J18.9 PNEUMONIA, UNSPECIFIED ORGANISM 08/09/2017 TEDDY PHILIP MD, Ot J44.9 CHRONIC OBSTRUCTIVE PULMONARY DISEASE, U 08/09/2017 TEDDY PHILIP MD, Ot K21.0 GASTRO-ESOPHAGEAL REFLUX DISEASE WITH ES 08/09/2017 TEDDY PHILIP MD, Ot K29.60 OTHER GASTRITIS WITHOUT BLEEDING 08/09/2017 TEDDY PHILIP MD, Ot K44.9 DIAPHRAGMATIC HERNIA WITHOUT OBSTRUCTION 08/09/2017 TEDDY PHILIP MD, Ot K57.30 DVRTCLOS OF LG INT W/O PERFORATION OR AB 08/09/2017 TEDDY PHILIP MD, Ot K64.8 OTHER HEMORRHOIDS 08/09/2017 TEDDY PHILIP MD, Ot Z79.01 CARE HOME (CURRENT) USE OF ANTICOAGULANT 08/09/2017 TEDDY PHILIP MD, Ot Z79.[address] THRU ORDER TAKER (CURRENT) DRUG THERAPY 08/09/2017 TEDDY PHILIP MD, Ot Z80.0 FAMILY HISTORY OF MALIGNANT NEOPLASM OF 08/09/2017 TEDDY PHILIP MD, Ot Z86.71 1 PERSONAL HISTORY OF PULMONARY EMBOLISM 08/09/2017 TEDDY PHILIP MD, Ot Z86.71 8 PERSONAL HISTORY OF OTHER VENOUS THROMBO 08/09/2017 TEDDY PHILIP MD, Ot Z87.89 1 PERSONAL HISTORY OF NICOTINE DEPENDENCE 08/09/2017 TEDDY PHILIP MD, Ot Z88.6 ALLERGY STATUS TO ANALGESIC AGENT STATUS 08/09/2017 TEDDY PHILIP MD, Ot Z88.7 ALLERGY STATUS TO SERUM AND VACCINE STAT 08/10/2017 TEDDY PHILIP MD, Ot 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 08/10/2017 TEDDY PHILIP MD, Ot I10 ESSENTIAL (PRIMARY) HYPERTENSION 08/10/2017 TEDDY PHILIP MD, Ot J18.9 PNEUMONIA, UNSPECIFIED ORGANISM 08/10/2017 TEDDY PHILIP MD, Ot J44.9 CHRONIC OBSTRUCTIVE PULMONARY DISEASE, U 08/10/2017 TEDDY PHILIP MD, Ot K21.0 GASTRO-ESOPHAGEAL REFLUX DISEASE WITH ES 08/10/2017 TEDDY PHILIP MD, Ot K29.60 OTHER GASTRITIS WITHOUT BLEEDING 08/10/2017 TEDDY PHILIP MD, Ot K44.9 DIAPHRAGMATIC HERNIA WITHOUT OBSTRUCTION 08/10/2017 TEDDY PHILIP MD, Ot K57.30 DVRTCLOS OF LG INT W/O PERFORATION OR AB 08/10/2017 TEDDY PHILIP MD, Ot K64.8 OTHER HEMORRHOIDS 08/10/2017 TEDDY PHILIP MD, Ot Z79.01 DRIVE THRU ORDER TAKER (CURRENT) USE OF ANTICOAGULANT 08/10/2017 TEDDY PHILIP MD, Ot Z79.89 9 OTHER CARE HOME (CURRENT) DRUG THERAPY 08/10/2017 TEDDY PHILIP MD, Ot Z80.0 FAMILY HISTORY OF MALIGNANT NEOPLASM OF 08/10/2017 TEDDY PHILIP MD, Ot Z86.71 1 PERSONAL HISTORY OF PULMONARY EMBOLISM 08/10/2017 TEDDY PHILIP MD, Ot Z86.71 8 PERSONAL HISTORY OF OTHER VENOUS THROMBO 08/10/2017 TEDDY PHILIP MD, Ot Z87.89 1 PERSONAL HISTORY OF NICOTINE DEPENDENCE 08/10/2017 TEDDY PHILIP MD, Ot Z88.6 ALLERGY STATUS TO ANALGESIC AGENT STATUS 08/10/2017 TEDDY PHILIP MD, Ot Z88.7 ALLERGY STATUS TO SERUM AND VACCINE STAT 08/20/2017 LUCIANO ROSARIO, LEAH Jacome Ot J44. 1 CHRONIC OBSTRUCTIVE PULMONARY DISEASE W 09/02/2017 ALVA BENJAMIN MD Ot E78.00 PURE HYPERCHOLESTEROLEMIA, UNSPECIFIED 09/02/2017 ALVA BENJAMIN MD Ot F14.10 COCAINE ABUSE, UNCOMPLICATED 09/02/2017 ALVA BENJAMIN MD, Ot F41.9 ANXIETY DISORDER, UNSPECIFIED 09/02/2017 ALVA BENJAMIN MD, Ot I10 ESSENTIAL (PRIMARY) HYPERTENSION 09/02/2017 ALVA BENJAMIN MD, Ot I73.9 PERIPHERAL VASCULAR DISEASE, UNSPECIFIED 09/02/2017 ALVA BENJAMIN MD, Ot J30.2 OTHER SEASONAL ALLERGIC RHINITIS 09/02/2017 ALVA BENJAMIN MD, Ot J44.1 CHRONIC OBSTRUCTIVE PULMONARY DISEASE W 09/02/2017 ALVA BENJAMIN MD, Ot K21.9 GASTRO-ESOPHAGEAL REFLUX DISEASE WITHOUT 09/02/2017 ALVA BENJAMIN MD, Ot Z79.01 DRIVE THRU ORDER TAKER (CURRENT) USE OF ANTICOAGULANT 09/02/2017 ALVA BENJAMIN MD, Ot Z79.51 DRIVE THRU ORDER TAKER (CURRENT) USE OF INHALED STERO 09/02/2017 ALVA BENJAMIN MD, Ot Z79.52 DRIVE THRU ORDER TAKER (CURRENT) USE OF SYSTEMIC STER 09/02/2017 ALVA BENJAMIN MD, Ot Z80.0 FAMILY HISTORY OF MALIGNANT NEOPLASM OF 09/02/2017 ALVA BENJAMIN MD, Ot Z82.49 FAMILY HX OF ISCHEM HEART DIS AND OTH DI 09/02/2017 ALVA BENJAMIN MD, Ot Z86.718 PERSONAL HISTORY OF OTHER VENOUS THROMBO 09/02/2017 ALVA BENJAMIN MD, Ot Z87.01 PERSONAL HISTORY OF PNEUMONIA (RECURRENT 09/02/2017 ALVA BENJAMIN MD, Ot Z87.19 PERSONAL HISTORY OF OTHER DISEASES OF TH 09/02/2017 ALVA BENJAMIN MD, Ot Z87.440 PERSONAL HISTORY OF URINARY (TRACT) INFE 09/02/2017 ALVA BENJAMIN MD, Ot Z87.442 PERSONAL HISTORY OF URINARY CALCULI 09/02/2017 ALVA BENJAMIN MD, Ot Z87.59 PERSONAL HISTORY OF COMP OF PREG, CHLDBR 09/02/2017 ALVA BENJAMIN MD, Ot Z88.5 ALLERGY STATUS TO NARCOTIC AGENT STATUS 09/02/2017 ALVA BENJAMIN MD, Ot Z88.6 ALLERGY STATUS TO ANALGESIC AGENT STATUS 09/02/2017 ALVA BENJAMIN MD, Ot Z88.7 ALLERGY STATUS TO SERUM AND VACCINE STAT 09/02/2017 ALVA BENJAMIN MD, Ot Z88.8 ALLERGY STATUS TO OT DRUG/MEDS/BIOL SUB 09/02/2017 ALVA BENJAMIN MD, Ot Z90.710 ACQUIRED ABSENCE OF BOTH CERVIX AND UTER 09/02/2017 ALVA BENJAMIN MD, Ot Z90.89 ACQUIRED ABSENCE OF OTHER ORGANS 09/02/2017 ALVA BENJAMIN MD, Ot Z91.040 LATEX ALLERGY STATUS 09/02/2017 ALVA BENJAMIN MD, Ot Z91.041 RADIOGRAPHIC DYE ALLERGY STATUS 09/02/2017 ALVA BENJAMIN MD, Ot Z91.048 OTHER NONMEDICINAL SUBSTANCE ALLERGY STA 09/02/2017 ALVA BENJAMIN MD Ot Z96.652 PRESENCE OF LEFT ARTIFICIAL KNEE JOINT 09/04/2017 ALVA BENJAMIN MD Ot E78.00 PURE HYPERCHOLESTEROLEMIA, UNSPECIFIED 09/04/2017 ALVA BENJAMIN MD Ot F14.10 COCAINE ABUSE, UNCOMPLICATED 09/04/2017 ALVA BENJAMIN MD, Ot F41.9 ANXIETY DISORDER, UNSPECIFIED 09/04/2017 ALVA BENJAMIN MD, Ot I10 ESSENTIAL (PRIMARY) HYPERTENSION 09/04/2017 ALVA BENJAMIN MD Ot I73.9 PERIPHERAL VASCULAR DISEASE, UNSPECIFIED 09/04/2017 ALVA BENJAMIN MD Ot J30.2 OTHER SEASONAL ALLERGIC RHINITIS 09/04/2017 ALVA BENJAMIN MD, Ot J44.1 CHRONIC OBSTRUCTIVE PULMONARY DISEASE W 09/04/2017 ALVA BENJAMIN MD, Ot K21.9 GASTRO-ESOPHAGEAL REFLUX DISEASE WITHOUT 09/04/2017 ALVA BENJAMIN MD, Ot Z79.01 DRIVE THRU ORDER TAKER (CURRENT) USE OF ANTICOAGULANT 09/04/2017 ALVA BENJAMIN MD Ot Z79.51 DRIVE THRU ORDER TAKER (CURRENT) USE OF INHALED STERO 09/04/2017 ALVA BENJAMIN MD Ot Z79.52 CARE HOME (CURRENT) USE OF SYSTEMIC STER 09/04/2017 ALVA BENJAMIN MD Ot Z80.0 FAMILY HISTORY OF MALIGNANT NEOPLASM OF 09/04/2017 ALVA BENJAMIN MD, Ot Z82.49 FAMILY HX OF ISCHEM HEART DIS AND OTH DI 09/04/2017 ALVA BENJAMIN MD, Ot Z86.718 PERSONAL HISTORY OF OTHER VENOUS THROMBO 09/04/2017 ALVA BENJAMIN MD, Ot Z87.01 PERSONAL HISTORY OF PNEUMONIA (RECURRENT 09/04/2017 ALVA BENJAMIN MD, Ot Z87.19 PERSONAL HISTORY OF OTHER DISEASES OF TH 09/04/2017 ALVA BENJAMIN MD, Ot Z87.440 PERSONAL HISTORY OF URINARY (TRACT) INFE 09/04/2017 ALVA BENJAMIN MD, Ot Z87.442 PERSONAL HISTORY OF URINARY CALCULI 09/04/2017 ALVA BENJAMIN MD Ot Z87.59 PERSONAL HISTORY OF COMP OF PREG, CHLDBR 09/04/2017 ALVA BENJAMIN MD, Ot Z88.5 ALLERGY STATUS TO NARCOTIC AGENT STATUS 09/04/2017 ALVA BENJAMNI MD Ot Z88.6 ALLERGY STATUS TO ANALGESIC AGENT STATUS 09/04/2017 ALVA BENJAMIN MD, Ot Z88.7 ALLERGY STATUS TO SERUM AND VACCINE STAT 09/04/2017 ALVA BENJAMIN MD, Ot Z88.8 ALLERGY STATUS TO OTH DRUG/MEDS/BIOL SUB 09/04/2017 ALVA BENJAMIN MD Ot Z90.710 ACQUIRED ABSENCE OF BOTH CERVIX AND UTER 09/04/2017 ALVA BENJAMIN MD Ot Z90.89 ACQUIRED ABSENCE OF OTHER ORGANS 09/04/2017 ALVA BENJAMIN MD Ot Z91.040 LATEX ALLERGY STATUS 09/04/2017 ALVA BENJAMIN MD Ot Z91.041 RADIOGRAPHIC DYE ALLERGY STATUS 09/04/2017 ALVA BENJAMIN MD Ot Z91.048 OTHER NONMEDICINAL SUBSTANCE ALLERGY STA 09/04/2017 ALVA BENJAMIN MD Ot Z96.652 PRESENCE OF LEFT ARTIFICIAL KNEE JOINT 09/05/2017 LUCIANO ROSARIO, LEAH Jacome Ot J44. 1 CHRONIC OBSTRUCTIVE PULMONARY DISEASE W 09/08/2017 ALVA BENJAMIN MD Ot E78.00 PURE HYPERCHOLESTEROLEMIA, UNSPECIFIED 09/08/2017 ALVA BENJAMIN MD Ot F14.10 COCAINE ABUSE, UNCOMPLICATED 09/08/2017 ALVA BENJAMIN MD, Ot F41.9 ANXIETY DISORDER, UNSPECIFIED 09/08/2017 ALVA BENJAMIN MD Ot I10 ESSENTIAL (PRIMARY) HYPERTENSION 09/08/2017 ALVA BENJAMIN MD Ot I73.9 PERIPHERAL VASCULAR DISEASE, UNSPECIFIED 09/08/2017 ALVA BENJAMIN MD, Ot J30.2 OTHER SEASONAL ALLERGIC RHINITIS 09/08/2017 ALVA BENJAMIN MD, Ot J44.1 CHRONIC OBSTRUCTIVE PULMONARY DISEASE W 09/08/2017 ALVA BENJAMIN MD, Ot K21.9 GASTRO-ESOPHAGEAL REFLUX DISEASE WITHOUT 09/08/2017 ALVA BENJAMIN MD, Ot Z79.01 CARE HOME (CURRENT) USE OF ANTICOAGULANT 09/08/2017 ALVA BENJAMIN MD, Ot Z79.51 CARE HOME (CURRENT) USE OF INHALED STERO 09/08/2017 ALVA BENJAMIN MD, Ot Z79.52 DRIVE THRU ORDER TAKER (CURRENT) USE OF SYSTEMIC STER 09/08/2017 ALVA BENJAMIN MD, Ot Z80.0 FAMILY HISTORY OF MALIGNANT NEOPLASM OF 09/08/2017 ALVA BENJAMIN MD, Ot Z82.49 FAMILY HX OF ISCHEM HEART DIS AND OTH DI 09/08/2017 ALVA BENJAMIN MD, Ot Z86.718 PERSONAL HISTORY OF OTHER VENOUS THROMBO 09/08/2017 ALVA BENJAMIN MD, Ot Z87.01 PERSONAL HISTORY OF PNEUMONIA (RECURRENT 09/08/2017 ALVA BENJAMIN MD, Ot Z87.19 PERSONAL HISTORY OF OTHER DISEASES OF TH 09/08/2017 ALVA BENJAMIN MD, Ot Z87.440 PERSONAL HISTORY OF URINARY (TRACT) INFE 09/08/2017 ALVA BENJAMIN MD, Ot Z87.442 PERSONAL HISTORY OF URINARY CALCULI 09/08/2017 ALVA BENJAMIN MD, Ot Z87.59 PERSONAL HISTORY OF COMP OF PREG, CHLDBR 09/08/2017 ALVA BENJAMIN MD Ot Z88.5 ALLERGY STATUS TO NARCOTIC AGENT STATUS 09/08/2017 ALVA BENJAMIN MD Ot Z88.6 ALLERGY STATUS TO ANALGESIC AGENT STATUS 09/08/2017 ALVA BENJAMIN MD, Ot Z88.7 ALLERGY STATUS TO SERUM AND VACCINE STAT 09/08/2017 ALVA BENJAMIN MD, Ot Z88.8 ALLERGY STATUS TO OT DRUG/MEDS/BIOL SUB 09/08/2017 SOURAV ROSARIO, ALVA Casanova Ot Z90.710 ACQUIRED ABSENCE OF BOTH CERVIX AND UTER 09/08/2017 ALVA BENJAMIN MD Ot Z90.89 ACQUIRED ABSENCE OF OTHER ORGANS 09/08/2017 ALVA BENJAMIN MD Ot Z91.040 LATEX ALLERGY STATUS 09/08/2017 ALVA BENJAMIN MD Ot Z91.041 RADIOGRAPHIC DYE ALLERGY STATUS 09/08/2017 ALVA BENJAMIN MD Ot Z91.048 OTHER NONMEDICINAL SUBSTANCE ALLERGY STA 09/08/2017 ALVA BENJAMIN MD Ot Z96.652 PRESENCE OF LEFT ARTIFICIAL KNEE JOINT 09/20/2017 LUCIANO ROSARIO, LEAH Jacome Ot J44. 1 CHRONIC OBSTRUCTIVE PULMONARY DISEASE W 10/14/2017 LEAH WOLF MD Ot J44. 1 CHRONIC OBSTRUCTIVE PULMONARY DISEASE W 11/16/2017 Ot 397.0 TRIC USPID VALVE DISEASE 11/16/2017 Ot 401.9 HYPE RTENSION NOS 11/16/2017 Ot 424.0 MITR AL VALVE DISORDER 11/16/2017 Ot 780.2 SYNC OPE AND COLLAPSE 11/16/2017 Ot 780.4 DIZZ INESS AND GIDDINESS 11/16/2017 Ot 272.4 HYPE RLIPIDEMIA NEC/NOS 11/16/2017 KALEIGH ROSARIO, SHEILA Nicolas Ot 454 .9 ASYMPTOMATIC VARICOSE VEINS 11/16/2017 KIRAN GREER AVIATION MANAGER Ot 286.9 COAGULAT DEFECT NEC/NOS 11/16/2017 KIRAN GREER AVIATION MANAGER Ot 4 96 CHR AIRWAY OBSTRUCT NEC 11/16/2017 KIRAN GREERP Ot 564.1 IRRITABLE BOWEL SYNDROME 11/16/2017 KIRAN GREERP Ot 585.3 CHRONIC KIDNEY DISEASE, STAGE III (MODER 11/16/2017 KIRAN GREERP Ot V12.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 EMBOLISM 11/16/2017 KIRAN GREERP Ot V12.55 PERSONAL HISTORY OF PULMONARY EMBOLISM 11/16/2017 KIRAN GREERP Ot V58.61 ANTICOAGULANTS,LT,CURRENT USE 11/16/2017 KIRAN GREERP Ot V58.69 OTH MED,LT,CURRENT USE 11/16/2017 LUCIANO ROSARIO, LEAH Jacome Ot 611. 71 MASTODYNIA 11/16/2017 LUCIANO ROSARIO, LEAH Jacome Ot 611. 72 LUMP OR MASS IN BREAST 11/16/2017 LUCIANO ROSARIO, LEAH Jacome Ot 786. 05 SHORTNESS OF BREATH 11/16/2017 Ot V12.51 HX- VENOUS THROMBOSIS EMBOLISM 11/16/2017 Ot V12.55 PER NUNU HISTORY OF PULMONARY EMBOLISM 11/16/2017 Ot 686.9 LOCA L SKIN INFECTION NOS 11/16/2017 LUCIANO ROSARIO, LEAH Jacome Ot 724. 2 LUMBAGO 11/16/2017 LEAH WOLF MD Ot 721. 3 LUMBOSACRAL SPONDYLOSIS 11/16/2017 Ot 454.9 ASYM PTOMATIC VARICOSE VEINS 11/16/2017 Ot 998.83 NON -HEALING SURG WOUND 11/16/2017 Ot 998.89 OT ER SPEC COMPLICATIONS OF PROCEDURES N 11/16/2017 ELLEN ROSARIO, HOWARD Logan Ot 354.2 ULNAR NERVE LESION 11/16/2017 ELLEN ROSARIO, HOWARD Logan Ot V72.63 PRE-PROCEDURAL LABORATORY EXAMINATION 11/16/2017 ELLEN ROSARIO, HOWARD Logan Ot V74.8 SCREEN-BACTERIAL DIS NEC 11/16/2017 LUCIANO ROSARIO, LEAH Jacome Ot 496 CHR AIRWAY OBSTRUCT NEC 11/16/2017 LEAH WOLF MD Ot 486 PNEUMONIA, ORGANISM NOS 11/16/2017 TERRI KIDD DO Ot 414. 00 CORON ATHEROSCLER NOS TYPE VESSEL, NATIV 11/16/2017 TERRI KIDD DO Ot 493. 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 81 ESOPHAGEAL REFLUX 11/16/2017 TERRI KIDD DO Ot 786. 09 RESPIRATORY ABNORM NEC 11/16/2017 LEAH WOLF MD Ot 789. 06 ABDOMINAL PAIN, EPIGASTRIC 11/16/2017 AKIKO NAVARRO Ot 401.9 HYPERTENSION NOS 11/16/2017 AKIKO NAVARRO Ot 414.00 CORON ATHEROSCLER NOS TYPE VESSEL, NATIV 11/16/2017 AKIKO NAVARRO Ot 780.2 SYNCOPE AND COLLAPSE 11/16/2017 AKIKO NAVARRO Ot 786.50 CHEST PAIN NOS 11/16/2017 EULALIA BREWSTER AKIKO Rivas Ot V12.55 PERSONAL HISTORY OF PULMONARY EMBOLISM 11/16/2017 EULALIA BREWSTER AKIKO K Ot 401.9 HYPERTENSION NOS 11/16/2017 EULALIA BREWSTER AKIKO Rivas Ot 414.00 CORON ATHEROSCLER NOS TYPE VESSEL, NATIV 11/16/2017 EULALIA BREWSTER AKIKO Rivas Ot 780.2 SYNCOPE AND COLLAPSE 11/16/2017 EULALIA BREWSTER AKIKO Rivas Ot 785.1 PALPITATIONS 11/16/2017 EULALIA BREWSTER AIKKO Rivas Ot 786.50 CHEST PAIN NOS 11/16/2017 EULALIA BREWSTER AKIKO Rivas Ot V12.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 EMBOLISM 11/16/2017 EULALIA BREWSTER AKIKO K Ot V12.55 PERSONAL HISTORY OF PULMONARY EMBOLISM 11/16/2017 ADAM BARON DO Ot 285.9 ANEMIA NOS 11/16/2017 LEAH WOLF MD, Ot V76. 12 OTH SCREEN MAMMO-MALIGN NEOPLASM OF [place]HE[place] 11/16/2017 LEAH WOLF MD Ot 719. 46 JOINT PAIN-L/LEG 11/16/2017 EULALIA BREWSTER AKIKO K Ot 272.4 HYPERLIPIDEMIA NEC/NOS 11/16/2017 LEAH WOLF MD, Ot V58. 62 ENCOUNT FOR LONG-TERM(CURRENT) USE OF AN 11/16/2017 LEAH WOLF MD Ot V58. 83 ENCOUNTER FOR THERAPEUTIC DRUG MONITORIN 11/16/2017 TEDDY PHILIP MD Ot V72.84 EXAM PRE-OPERATIVE NOS 11/16/2017 LEAH WOLF MD Ot 789. 00 ABDOMINAL PAIN, UNSPECIFIED SITE 11/16/2017 LEAH WOLF MD, Ot V76. 12 OTH SCREEN MAMMO-MALIGN NEOPLASM OF [place] 11/16/2017 LEAH WOLF MD Ot N64. 4 MASTODYNIA 11/16/2017 LEAH WOLF MD Ot R41. 3 OTHER AMNESIA 11/16/2017 LEAH WOLF MD Ot R91. 8 OTHER NONSPECIFIC ABNORMAL FINDING OF SLIM 11/16/2017 AKIKO NAVARRO Ot E78.0 PURE HYPERCHOLESTEROLEMIA 11/16/2017 AKIKO NAVARRO Ot I10 ESSENTIAL (PRIMARY) HYPERTENSION 11/16/2017 AKIKO NAVARRO Ot I25.10 A[address] HEART DISEASE OF [facility] CORONARY 11/16/2017 AKIKO NAVARRO Ot R55 SYNCOPE AND COLLAPSE 11/16/2017 LUCIANO ROSARIO, LEAH Jacome Ot Z12. 31 ENCNTR SCREEN MAMMOGRAM FOR MALIGNANT NE 11/16/2017 [place] AVIATION MANAGER Ot R60. 0 LOCALIZED EDEMA 11/16/2017 CHARITY ROSARIO FACC, PAVAN FACP CCDS Ot R00.2 PALPITATIONS 11/16/2017 CHARITY ROSARIO FACC, ALI FACP CCDS Ot R06.02 SHORTNESS OF BREATH 11/16/2017 CHARITY ROSARIO FACC, ALI FACP CCDS Ot R07.89 OTHER CHEST PAIN 11/16/2017 CHARITY ROSARIO FACC, ALI FACP CCDS Ot 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 11/16/2017 CHARITY ROSARIO FACC, ALI FACP CCDS Ot I10 ESSENTIAL (PRIMARY) HYPERTENSION 11/16/2017 CHARITY ROSRAIO FACC, ALI FACP CCDS Ot I25.10 [address] HEART DISEASE OF [facility] CORONARY 11/16/2017 CHARITY ROSARIO FACC, ALI FACP CCDS Ot I73.9 PERIPHERAL VASCULAR DISEASE, UNSPECIFIED 11/16/2017 CHARITY ROSARIO FACC, ALI FACP CCDS Ot J43.8 OTHER EMPHYSEMA 11/16/2017 CHARITY ROSARIO FACC, ALI FACP CCDS Ot M79.89 OTHER SPECIFIED SOFT TISSUE DISORDERS 11/16/2017 CHARITY ROSARIO FACC, ALI FACP CCDS Ot R06.02 SHORTNESS OF BREATH 11/16/2017 CHARITY ROSARIO FACC, ALI FACP CCDS Ot Z86.718 PERSONAL HISTORY OF OTHER VENOUS THROMBO 11/16/2017 CHARITY ROSARIO FACC, ALI FACP CCDS Ot 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 11/16/2017 CHARITY ROSARIO FACC, ALI FACP CCDS Ot I10 ESSENTIAL (PRIMARY) HYPERTENSION 11/16/2017 CHARITY ROSARIO FACC, ALI FACP CCDS Ot 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 5 HEMORRHAGE OF ANUS AND RECTUM 11/16/2017 LEAH WOLF MD, Ot R91. 8 OTHER NONSPECIFIC ABNORMAL FINDING OF SLIM 11/16/2017 LEAH WOLF MD, Ot Z12. 31 ENCNTR SCREEN MAMMOGRAM FOR MALIGNANT NE 11/16/2017 LEAH WOLF MD, Ot Z51. 81 ENCOUNTER FOR THERAPEUTIC DRUG LEVEL MON 11/16/2017 LEAH WOLF MD, Ot Z79. 01 CARE HOME (CURRENT) USE OF ANTICOAGULANT 11/16/2017 LEAH WOLF MD, Ot Z86.718 PERSONAL HISTORY OF OTHER VENOUS THROMBO 11/16/2017 LEAH WOLF MD, Ot N64. 89 OTHER SPECIFIED DISORDERS OF BREAST 11/16/2017 HOWARD GROVES MD Ot J32 .9 CHRONIC SINUSITIS, UNSPECIFIED 11/16/2017 HOWARD GROVES MD Ot J33 .9 NASAL POLYP, UNSPECIFIED 11/16/2017 LEAH WOLF MD, Ot R91. 1 SOLITARY PULMONARY NODULE 11/16/2017 LEAH WOLF MD, Ot N64. 4 MASTODYNIA 11/16/2017 LEAH WOLF MD, Ot R10. 31 RIGHT LOWER QUADRANT PAIN 11/16/2017 LEAH WOLF MD, Ot Z95.828 PRESENCE OF OTHER VASCULAR IMPLANTS AND 11/16/2017 LEAH WOLF MD, Ot J33. 9 NASAL POLYP, UNSPECIFIED 11/16/2017 LEAH WOLF MD, Ot Z01.810 ENCOUNTER FOR PREPROCEDURAL CARDIOVASCUL 11/16/2017 TEDDY PHILIP MD, Ot K57.30 DVRTCLOS OF LG INT W/O PERFORATION OR AB 11/16/2017 TEDDY PHILIP MD, Ot N20.2 CALCULUS OF KIDNEY WITH CALCULUS OF URET 11/16/2017 KIDO MD, TAKAAKI Ot R59.0 LOCALIZED ENLARGED LYMPH NODES 11/16/2017 [place] Ot M17. 12 UNILATERAL PRIMARY OSTEOARTHRITIS, LEFT 11/16/2017 [place] Ot M23.262 DERANGEMENT OF LAT MENSC DUE TO OLD TEAR 11/16/2017 RONAN ROSARIO, ARIES Bass Ot Z87.4 42 PERSONAL HISTORY OF URINARY CALCULI 11/16/2017 HOWARD SALDANA MD Ot I70.[address] [facility] ARTERIES OF LEFT LEG W [facility] 11/16/2017 HOWARD SALDANA MD Ot I87.321 CHRONIC VENOUS HYPERTENSION W INFLAMMATI 11/16/2017 HOWARD SALDANA MD Ot I87.332 CHRONIC VENOUS HTN W ULCER AND INFLAMMAT 11/16/2017 HOWARD SALDANA MD Ot I89 .0 LYMPHEDEMA, NOT ELSEWHERE CLASSIFIED 11/16/2017 HOWARD SALDANA MD Ot L97.222 NON-PRESSURE CHRONIC ULCER OF LEFT CALF 11/16/2017 HOWARD SALDANA MD Ot I70.[address] [facility] ARTERIES OF LEFT LEG W [facility] 11/16/2017 HOWARD SALDANA MD Ot I87.321 CHRONIC VENOUS HYPERTENSION W INFLAMMATI 11/16/2017 HOWARD SALDANA MD Ot I87.332 CHRONIC VENOUS HTN W ULCER AND INFLAMMAT 11/16/2017 HOWARD SALDANA MD Ot I89 .0 LYMPHEDEMA, NOT ELSEWHERE CLASSIFIED 11/16/2017 HOWARD SALDANA MD Ot L97.222 NON-PRESSURE CHRONIC ULCER OF LEFT CALF 11/16/2017 HOWARD SALDANA MD Ot I87.321 CHRONIC VENOUS HYPERTENSION W INFLAMMATI 11/16/2017 HOWARD SALDANA MD Ot I87.332 CHRONIC VENOUS HTN W ULCER AND INFLAMMAT 11/16/2017 HOWARD SALDANA MD Ot I89 .0 LYMPHEDEMA, NOT ELSEWHERE CLASSIFIED 11/16/2017 HOWARD SALDANA MD Ot L97.222 NON-PRESSURE CHRONIC ULCER OF LEFT CALF 11/16/2017 HOWARD SALDANA MD Ot I87.321 CHRONIC VENOUS HYPERTENSION W INFLAMMATI 11/16/2017 HOWARD SALDANA MD Ot I87.332 CHRONIC VENOUS HTN W ULCER AND INFLAMMAT 11/16/2017 HOWARD SALDANA MD Ot I89 .0 LYMPHEDEMA, NOT ELSEWHERE CLASSIFIED 11/16/2017 HOWARD SALDANA MD Ot L97.222 NON-PRESSURE CHRONIC ULCER OF LEFT CALF 11/16/2017 LES ROSARIO, HOWARD Jiménez Ot I87.321 CHRONIC VENOUS HYPERTENSION W INFLAMMATI 11/16/2017 LES ROSARIO, HOWARD Jiménez Ot I87.332 CHRONIC VENOUS HTN W ULCER AND INFLAMMAT 11/16/2017 LES ROSARIO, HOWARD Jiménez Ot I89 .0 LYMPHEDEMA, NOT ELSEWHERE CLASSIFIED 11/16/2017 LES ROSARIO, HOWARD Jiménez Ot L97.222 NON-PRESSURE CHRONIC ULCER OF LEFT CALF 11/16/2017 LUCIANO ROSARIO, LEAH Jacome Ot J44. 1 CHRONIC OBSTRUCTIVE PULMONARY DISEASE W 11/17/2017 ALMANZA DO, MARV K Ot E78.5 HYPERLIPIDEMIA, UNSPECIFIED 11/17/2017 ALMANZA DO, MARV K Ot I10 ESSENTIAL (PRIMARY) HYPERTENSION 11/17/2017 ALMANZA DO, MARV K Ot I73.9 PERIPHERAL VASCULAR DISEASE, UNSPECIFIED 11/17/2017 ALMANZA DO, MARV K Ot J30.9 ALLERGIC RHINITIS, UNSPECIFIED 11/17/2017 ALMANZA DO, MARV K Ot J44.1 CHRONIC OBSTRUCTIVE PULMONARY DISEASE W 11/17/2017 ALMANZA DO, MARV K Ot K21.9 GASTRO-ESOPHAGEAL REFLUX DISEASE WITHOUT 11/17/2017 ALMANZA DO, MARV K Ot R60.9 EDEMA, UNSPECIFIED 11/17/2017 ALMANZA DO, MARV K Ot Z79.01 DRIVE THRU ORDER TAKER (CURRENT) USE OF ANTICOAGULANT 11/17/2017 ALMANZA DO, MARV K Ot Z79.[address] THRU ORDER TAKER (CURRENT) DRUG THERAPY 11/17/2017 ALMANZA DO, MARV K Ot Z86.71 8 PERSONAL HISTORY OF OTHER VENOUS THROMBO 11/17/2017 ALMANZA DO, MARV K Ot Z87.89 1 PERSONAL HISTORY OF NICOTINE DEPENDENCE 11/17/2017 ALMANZA DO, MARV K Ot E78.5 HYPERLIPIDEMIA, UNSPECIFIED 11/17/2017 ALMANZA DO, MARV K Ot I10 ESSENTIAL (PRIMARY) HYPERTENSION 11/17/2017 ALMANZA DO, MARV K Ot I73.9 PERIPHERAL VASCULAR DISEASE, UNSPECIFIED 11/17/2017 ALMANZA DO, MARV K Ot J30.9 ALLERGIC RHINITIS, UNSPECIFIED 11/17/2017 ALMANZA DO, MARV K Ot J44.1 CHRONIC OBSTRUCTIVE PULMONARY DISEASE W 11/17/2017 ALMANZA DO, MARV K Ot K21.9 GASTRO-ESOPHAGEAL REFLUX DISEASE WITHOUT 11/17/2017 ALMANZA DO, MARV K Ot R60.9 EDEMA, UNSPECIFIED 11/17/2017 MARV ALMANZA DO Ot Z79.01 DRIVE THRU ORDER TAKER (CURRENT) USE OF ANTICOAGULANT 11/17/2017 MARV ALMANZA DO Ot Z79.89 9 OTHER CARE HOME (CURRENT) DRUG THERAPY 11/17/2017 MARV ALMANZA DO Ot Z86.71 8 PERSONAL HISTORY OF OTHER VENOUS THROMBO 11/17/2017 MARV ALMANZA DO Ot Z87.89 1 PERSONAL HISTORY OF NICOTINE DEPENDENCE 02/01/2018 JESUS ROSARIO, FELIBERTO Clayton Ot E78. 00 PURE HYPERCHOLESTEROLEMIA, UNSPECIFIED 02/01/2018 FELIBERTO LEE MD Ot F14. 10 COCAINE ABUSE, UNCOMPLICATED 02/01/2018 FELIBERTO LEE MD Ot F41. 9 ANXIETY DISORDER, UNSPECIFIED 02/01/2018 FELIBERTO LEE MD Ot I10 ESSENTIAL (PRIMARY) HYPERTENSION 02/01/2018 FELIBERTO LEE MD Ot I73. 9 PERIPHERAL VASCULAR DISEASE, UNSPECIFIED 02/01/2018 FELIBERTO LEE MD Ot I87. 2 VENOUS INSUFFICIENCY (CHRONIC) (PERIPHER 02/01/2018 FELBIERTO LEE MD Ot J44. 9 CHRONIC OBSTRUCTIVE PULMONARY DISEASE, U 02/01/2018 FELIBERTO LEE MD Ot K21. 9 GASTRO-ESOPHAGEAL REFLUX DISEASE WITHOUT 02/01/2018 FELIBERTO LEE MD Ot M79.662 PAIN IN LEFT LOWER LEG 02/01/2018 FELIBERTO LEE MD Ot Z79. 01 CARE HOME (CURRENT) USE OF ANTICOAGULANT 02/01/2018 FELIBERTO LEE MD Ot Z79. 51 DR[address] THRU ORDER TAKER (CURRENT) USE OF INHALED STERO 02/01/2018 FELIBERTO LEE MD Ot Z80. 8 FAMILY HISTORY OF MALIGNANT NEOPLASM OF 02/01/2018 FELIBERTO LEE MD Ot Z82. 49 FAMILY HX OF ISCHEM HEART DIS AND OTH DI 02/01/2018 FELIBERTO LEE MD Ot Z86.718 PERSONAL HISTORY OF OTHER VENOUS THROMBO 02/01/2018 FELIBERTO LEE MD Ot Z87. 19 PERSONAL HISTORY OF OTHER DISEASES OF TH 02/01/2018 FELIBERTO LEE MD Ot Z87.448 PERSONAL HISTORY OF OTHER DISEASES OF UR 02/01/2018 FELIBERTO LEE MD Ot Z87.891 PERSONAL HISTORY OF NICOTINE DEPENDENCE 02/01/2018 JESUS ROSARIO FELIBERTO Clayton Ot Z88. 4 ALLERGY STATUS TO ANESTHETIC AGENT STATU 02/01/2018 JESUS ROSARIO, FELIBERTO Clayton Ot Z88. 5 ALLERGY STATUS TO NARCOTIC AGENT STATUS 02/01/2018 JESUS ROSARIO, FELIBERTO Clayton Ot Z88. 6 ALLERGY STATUS TO ANALGESIC AGENT STATUS 02/01/2018 JESUS ROSARIO, FELIBERTO Clayton Ot Z88. 7 ALLERGY STATUS TO SERUM AND VACCINE STAT 02/01/2018 JESUS ROSARIO, FELIBERTO Clayton Ot Z88. 8 ALLERGY STATUS TO OTH DRUG/MEDS/BIOL SUB 02/01/2018 JESUS ROSARIO, FELIBERTO Clayton Ot Z90.710 ACQUIRED ABSENCE OF BOTH CERVIX AND UTER 02/01/2018 FELIBERTO LEE MD Ot Z90. 89 ACQUIRED ABSENCE OF OTHER ORGANS 02/01/2018 JESUS ROSARIO, FELIBERTO Clayton Ot Z91.040 LATEX ALLERGY STATUS 02/01/2018 FELIBERTO LEE MD Ot Z91.041 RADIOGRAPHIC DYE ALLERGY STATUS 02/01/2018 FELIBERTO LEE MD Ot Z98.890 OTHER SPECIFIED POSTPROCEDURAL STATES 02/03/2018 EJSUS ROSARIO, FELIBERTO Clayton Ot E78. 00 PURE HYPERCHOLESTEROLEMIA, UNSPECIFIED 02/03/2018 JESUS ROSARIO, FELIBERTO Clayton Ot F14. 10 COCAINE ABUSE, UNCOMPLICATED 02/03/2018 JESUS ROSARIO, FELIBERTO Clayton Ot F41. 9 ANXIETY DISORDER, UNSPECIFIED 02/03/2018 JESUS ROSARIO, FELIBERTO Clayton Ot I10 ESSENTIAL (PRIMARY) HYPERTENSION 02/03/2018 FELIBERTO LEE MD Ot I73. 9 PERIPHERAL VASCULAR DISEASE, UNSPECIFIED 02/03/2018 JESUS ROSARIO, FELIBERTO Clayton Ot I87. 2 VENOUS INSUFFICIENCY (CHRONIC) (PERIPHER 02/03/2018 JESUS ROSARIO, FELIBERTO Clayton Ot J44. 9 CHRONIC OBSTRUCTIVE PULMONARY DISEASE, U 02/03/2018 FELIBERTO LEE MD Ot K21. 9 GASTRO-ESOPHAGEAL REFLUX DISEASE WITHOUT 02/03/2018 FELIBERTO LEE MD Ot M79.662 PAIN IN LEFT LOWER LEG 02/03/2018 FELIBERTO LEE MD Ot Z79. 01 CARE HOME (CURRENT) USE OF ANTICOAGULANT 02/03/2018 FELIBERTO LEE MD Ot Z79. 51 CARE HOME (CURRENT) USE OF INHALED STERO 02/03/2018 FELIBERTO LEE MD Ot Z80. 8 FAMILY HISTORY OF MALIGNANT NEOPLASM OF 02/03/2018 FELIBERTO LEE MD Ot Z82. 49 FAMILY HX OF ISCHEM HEART DIS AND OTH DI 02/03/2018 FELIBERTO LEE MD Ot Z86.718 PERSONAL HISTORY OF OTHER VENOUS THROMBO 02/03/2018 FELIBERTO LEE MD Ot Z87. 19 PERSONAL HISTORY OF OTHER DISEASES OF TH 02/03/2018 FELIBERTO LEE MD Ot Z87.448 PERSONAL HISTORY OF OTHER DISEASES OF UR 02/03/2018 FELIBERTO LEE MD Ot Z87.891 PERSONAL HISTORY OF NICOTINE DEPENDENCE 02/03/2018 JESUS ROSARIO, FELIBERTO Clayton Ot Z88. 4 ALLERGY STATUS TO ANESTHETIC AGENT STATU 02/03/2018 FELIBERTO ELE MD Ot Z88. 5 ALLERGY STATUS TO NARCOTIC AGENT STATUS 02/03/2018 FELIBERTO LEE MD Ot Z88. 6 ALLERGY STATUS TO ANALGESIC AGENT STATUS 02/03/2018 FELIBERTO LEE MD Ot Z88. 7 ALLERGY STATUS TO SERUM AND VACCINE STAT 02/03/2018 FELIBERTO LEE MD Ot Z88. 8 ALLERGY STATUS TO OTH DRUG/MEDS/BIOL SUB 02/03/2018 FELIBERTO LEE MD Ot Z90.710 ACQUIRED ABSENCE OF BOTH CERVIX AND UTER 02/03/2018 FELIBERTO LEE MD Ot Z90. 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 02/27/2018 STEPHANIE ECKERT DO Ot J44.9 CHRONIC OBSTRUCTIVE PULMONARY DISEASE, U 02/27/2018 STEPHANIE ECKERT DO Ot K21.9 GASTRO-ESOPHAGEAL REFLUX DISEASE WITHOUT 02/27/2018 STEPHANIE ECKERT DO Ot L97.829 NON-PRESSURE CHRONIC ULCER OTH PRT L LOW 02/27/2018 STEPHANIE ECKERT DO, Ot Z79.01 DRIVE THRU ORDER TAKER (CURRENT) USE OF ANTICOAGULANT 02/27/2018 STEPHANIE ECKERT DO Ot Z79.51 CARE HOME (CURRENT) USE OF INHALED STERO 02/27/2018 BABAR STEPHANIE LOVE Ot Z80.0 FAMILY HISTORY OF MALIGNANT NEOPLASM OF 02/27/2018 BABAR STEPHANIE LOVE Ot Z82.49 FAMILY HX OF ISCHEM HEART DIS AND OTH DI 02/27/2018 STEPHANIE ECKERT DO, Ot Z86.010 PERSONAL HISTORY OF COLONIC POLYPS 02/27/2018 STEPHANIE ECKERT DO Ot Z86.711 PERSONAL HISTORY OF PULMONARY EMBOLISM 02/27/2018 STEPHANIE ECKERT DO, Ot Z86.718 PERSONAL HISTORY OF OTHER VENOUS THROMBO 02/27/2018 STEPHANIE ECKERT DO Ot Z87.01 PERSONAL HISTORY OF PNEUMONIA (RECURRENT 02/27/2018 BABAR STEPHANIE LOVE Ot Z87.19 PERSONAL HISTORY OF OTHER DISEASES OF TH 02/27/2018 STEPHANIE ECKERT DO, Ot Z87.440 PERSONAL HISTORY OF URINARY (TRACT) INFE 02/27/2018 STEPHANIE ECKERT DO Ot Z87.442 PERSONAL HISTORY OF URINARY CALCULI 02/27/2018 STEPHANIE ECKERT DO, Ot Z87.891 PERSONAL HISTORY OF NICOTINE DEPENDENCE 02/27/2018 STEPHANIE ECKERT DO Ot Z88.4 ALLERGY STATUS TO ANESTHETIC AGENT STATU 02/27/2018 STEPHANIE ECKERT DO Ot Z88.6 ALLERGY STATUS TO ANALGESIC AGENT STATUS 02/27/2018 STEPHANIE ECKERT DO, Ot Z88.7 ALLERGY STATUS TO SERUM AND VACCINE STAT 02/27/2018 STEPHANIE ECKERT DO Ot Z88.8 ALLERGY STATUS TO OTH DRUG/MEDS/BIOL SUB 02/27/2018 STEPHANIE ECKERT DO Ot Z90.710 ACQUIRED ABSENCE OF BOTH CERVIX AND UTER 02/27/2018 STEPHANIE ECKERT DO Ot Z91.040 LATEX ALLERGY STATUS 02/27/2018 STEPHANIE ECKERT DO, Ot Z91.041 RADIOGRAPHIC DYE ALLERGY STATUS 02/27/2018 STEPHANIE ECKERT DO, Ot Z98.890 OTHER SPECIFIED POSTPROCEDURAL STATES 03/03/2018 STEPHANIE ECKERT DO Ot E78.00 PURE HYPERCHOLESTEROLEMIA, UNSPECIFIED 03/03/2018 BABAR STEPHANIE LOVE Ot F41.9 ANXIETY DISORDER, UNSPECIFIED 03/03/2018 STEPHANIE ECKERT DO Ot I10 ESSENTIAL (PRIMARY) HYPERTENSION 03/03/2018 STEPHANIE ECKERT DO Ot I73.9 PERIPHERAL VASCULAR DISEASE, UNSPECIFIED 03/03/2018 STEPHANIE ECKERT DO, Ot I83.028 VARICOSE VEINS OF L LOW EXTREM W ULCER O 03/03/2018 STEPHANIE ECKERT DO, Ot J44.9 CHRONIC OBSTRUCTIVE PULMONARY DISEASE, U 03/03/2018 STEPHANIE ECKERT DO, Ot K21.9 GASTRO-ESOPHAGEAL REFLUX DISEASE WITHOUT 03/03/2018 STEPHANIE ECKERT DO, Ot L97.829 NON-PRESSURE CHRONIC ULCER OTH PRT L LOW 03/03/2018 STEPHANIE ECKERT DO Ot Z79.01 CARE HOME (CURRENT) USE OF ANTICOAGULANT 03/03/2018 STEPHANIE ECKERT DO Ot Z79.51 DRIVE THRU ORDER TAKER (CURRENT) USE OF INHALED STERO 03/03/2018 STEPHANIE ECKERT DO, Ot Z80.0 FAMILY HISTORY OF MALIGNANT NEOPLASM OF 03/03/2018 STEPHANIE ECKERT DO, Ot Z82.49 FAMILY HX OF ISCHEM HEART DIS AND OTH DI 03/03/2018 STEPHANIE ECKERT DO, Ot Z86.010 PERSONAL HISTORY OF COLONIC POLYPS 03/03/2018 STEPHANIE ECKERT DO, Ot Z86.711 PERSONAL HISTORY OF PULMONARY EMBOLISM 03/03/2018 STEPHANIE ECKERT DO, Ot Z86.718 PERSONAL HISTORY OF OTHER VENOUS THROMBO 03/03/2018 STEPHANIE ECKERT DO, Ot Z87.01 PERSONAL HISTORY OF PNEUMONIA (RECURRENT 03/03/2018 STEPHANIE ECKERT DO, Ot Z87.19 PERSONAL HISTORY OF OTHER DISEASES OF TH 03/03/2018 STEPHANIE ECKERT DO, Ot Z87.440 PERSONAL HISTORY OF URINARY (TRACT) INFE 03/03/2018 STEPHANIE ECKERT DO, Ot Z87.442 PERSONAL HISTORY OF URINARY CALCULI 03/03/2018 STEPHANIE ECKERT DO Ot Z87.891 PERSONAL HISTORY OF NICOTINE DEPENDENCE 03/03/2018 STEPHANIE ECKERT DO Ot Z88.4 ALLERGY STATUS TO ANESTHETIC AGENT STATU 03/03/2018 STEPHANIE ECKERT DO Ot Z88.6 ALLERGY STATUS TO ANALGESIC AGENT STATUS 03/03/2018 STEPHANIE ECKERT DO Ot Z88.7 ALLERGY STATUS TO SERUM AND VACCINE STAT 03/03/2018 STEPHANIE ECKERT DO Ot Z88.8 ALLERGY STATUS TO OTH DRUG/MEDS/BIOL SUB 03/03/2018 STEPHANIE ECKERT DO Ot Z90.710 ACQUIRED ABSENCE OF BOTH CERVIX AND UTER 03/03/2018 STEPHANIE ECKERT DO Ot Z91.040 LATEX ALLERGY STATUS 03/03/2018 STEPHANIE ECKERT DO Rivas Ot Z91.041 RADIOGRAPHIC DYE ALLERGY STATUS 03/03/2018 STEPHANIE ECKERT DO Ot Z98.890 OTHER SPECIFIED POSTPROCEDURAL STATES 03/11/2018 HOWARD SALDANA MD, Ot I87.321 CHRONIC VENOUS HYPERTENSION W INFLAMMATI 03/11/2018 HOWARD SALDANA MD, Ot I87.332 CHRONIC VENOUS HTN W ULCER AND INFLAMMAT 03/11/2018 HOWARD SALDANA MD, Ot J44 .9 CHRONIC OBSTRUCTIVE PULMONARY DISEASE, U 03/11/2018 HOWARD SALDANA MD, Ot L97.222 NON-PRESSURE CHRONIC ULCER OF LEFT CALF 03/19/2018 HOWARD SALDANA MD, Ot I87.332 CHRONIC VENOUS HTN W ULCER AND INFLAMMAT 03/19/2018 HOWARD SALDANA MD, Ot J44 .9 CHRONIC OBSTRUCTIVE PULMONARY DISEASE, U 03/19/2018 HOWARD SALDANA MD, Ot L97.222 NON-PRESSURE CHRONIC ULCER OF LEFT CALF 03/21/2018 HOWARD SALDANA MD, Ot I87.321 CHRONIC VENOUS HYPERTENSION W INFLAMMATI 03/21/2018 HOWARD SALDANA MD, Ot I87.332 CHRONIC VENOUS HTN W ULCER AND INFLAMMAT 03/21/2018 HOWARD SALDANA MD, Ot J44 .9 CHRONIC OBSTRUCTIVE PULMONARY DISEASE, U 03/21/2018 HOWARD SALDANA MD, Ot L97.222 NON-PRESSURE CHRONIC ULCER OF LEFT CALF 03/29/2018 HOWARD SALDANA MD, Ot I87.332 CHRONIC VENOUS HTN W ULCER AND INFLAMMAT 03/29/2018 HOWARD SALDANA MD, Ot J44 .9 CHRONIC OBSTRUCTIVE PULMONARY DISEASE, U 03/29/2018 HOWARD SALDANA MD, Ot L97.222 NON-PRESSURE CHRONIC ULCER OF LEFT CALF 03/31/2018 ANNIKA HOLLEY MD, Ot I87.321 CHRONIC VENOUS HYPERTENSION W INFLAMMATI 03/31/2018 ANNIKA HOLLEY MD, Ot I87.332 CHRONIC VENOUS HTN W ULCER AND INFLAMMAT 03/31/2018 ANNIKA HOLLEY MD, Ot J44.9 CHRONIC OBSTRUCTIVE PULMONARY DISEASE, U 03/31/2018 ANNIKA HOLLEY MD, Ot L97.822 NON- PRS CHRONIC ULCER OTH PRT L LOW LEG 04/09/2018 BARRON VALLE APRN Ot I87.332 CHRONIC VENOUS HTN W ULCER AND INFLAMMAT 04/09/2018 BARRON VALLE APRN Ot L97.222 NON-PRESSURE CHRONIC ULCER OF LEFT CALF 04/14/2018 Ot V12.51 HX- VENOUS THROMBOSIS EMBOLISM 04/14/2018 Ot V12.55 PER NUNU HISTORY OF PULMONARY EMBOLISM 04/14/2018 Ot 686.9 LOCA L SKIN INFECTION NOS 04/14/2018 Ot 454.9 ASYM PTOMATIC VARICOSE VEINS 04/14/2018 Ot 998.83 NON -HEALING SURG WOUND 04/14/2018 Ot 998.89 OTH ER SPEC COMPLICATIONS OF PROCEDURES N 04/14/2018 LEAH WOLF MD, Ot V58. 62 ENCOUNT FOR LONG-TERM(CURRENT) USE OF AN 04/14/2018 LEAH WOLF MD, Ot V58. 83 ENCOUNTER FOR THERAPEUTIC DRUG MONITORIN 04/14/2018 LEAH WOLF MD, Ot Z51. 81 ENCOUNTER FOR THERAPEUTIC DRUG LEVEL MON 04/14/2018 LEAH WOLF MD, Ot Z79. 01 CARE HOME (CURRENT) USE OF ANTICOAGULANT 04/14/2018 LEAH WOLF MD, Ot Z86.718 PERSONAL HISTORY OF OTHER VENOUS THROMBO 04/14/2018 LEAH WOLF MD, Ot J44. 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 00 PURE HYPERCHOLESTEROLEMIA, UNSPECIFIED 04/16/2018 LEAH WOLF MD, Ot F14. 90 COCAINE USE, UNSPECIFIED, UNCOMPLICATED 04/16/2018 LEAH WOLF MD, Ot F41. 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 9 POLYNEUROPATHY, UNSPECIFIED 04/16/2018 LEAH WOLF MD, Ot I10 ESSENTIAL (PRIMARY) HYPERTENSION 04/16/2018 LEAH WOLF MD, Ot I73. 9 PERIPHERAL VASCULAR DISEASE, UNSPECIFIED 04/16/2018 LEAH WOLF MD, Ot I87. 2 VENOUS INSUFFICIENCY (CHRONIC) (PERIPHER 04/16/2018 LEAH WOLF MD, Ot J30. 2 OTHER SEASONAL ALLERGIC RHINITIS 04/16/2018 LEAH WOLF MD, Ot J40 BRONCHITIS, NOT SPECIFIED ACUTE OR CH 04/16/2018 LEAH WOLF MD, Ot J44. 1 CHRONIC OBSTRUCTIVE PULMONARY DISEASE W 04/16/2018 LEAH WOLF MD, Ot K21. 9 GASTRO-ESOPHAGEAL REFLUX DISEASE WITHOUT 04/16/2018 LEAH WOLF MD, Ot K44. 9 DIAPHRAGMATIC HERNIA WITHOUT OBSTRUCTION 04/16/2018 LEAH WOLF MD, Ot K58. 0 IRRITABLE BOWEL SYNDROME WITH DIARRHEA 04/16/2018 LEAH WOLF MD, Ot K58. 1 IRRITABLE BOWEL SYNDROME WITH CONSTIPATI 04/16/2018 LEAH WOLF MD, Ot M19. 91 PRIMARY OSTEOARTHRITIS, UNSPECIFIED SITE 04/16/2018 LEAH WOLF MD, Ot R73. 03 PREDIABETES 04/16/2018 LEAH WOLF MD, Ot Z79. 01 CARE HOME (CURRENT) USE OF ANTICOAGULANT 04/16/2018 LEAH WOLF MD, Ot Z79. 52 CARE HOME (CURRENT) USE OF SYSTEMIC STER 04/16/2018 LEAH WOLF MD, Ot Z86. 19 PERSONAL HISTORY OF OTHER INFECTIOUS AND 04/16/2018 LEAH WOLF MD, Ot Z86.711 PERSONAL HISTORY OF PULMONARY EMBOLISM 04/16/2018 LEAH WOLF MD, Ot Z86.718 PERSONAL HISTORY OF OTHER VENOUS THROMBO 04/16/2018 LEAH WOLF MD, Ot Z87.891 PERSONAL HISTORY OF NICOTINE DEPENDENCE 04/16/2018 LEAH WOLF MD, Ot B37. 0 CANDIDAL STOMATITIS 04/16/2018 LEAH WOLF MD, Ot D68. 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 04/16/2018 LEAH WOLF MD, Ot E78. 00 PURE HYPERCHOLESTEROLEMIA, UNSPECIFIED 04/16/2018 LEAH WOLF MD, Ot F14. 90 COCAINE USE, UNSPECIFIED, UNCOMPLICATED 04/16/2018 LEAH WOLF MD, Ot F41. 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 9 POLYNEUROPATHY, UNSPECIFIED 04/16/2018 LEAH WOLF MD, Ot I10 ESSENTIAL (PRIMARY) HYPERTENSION 04/16/2018 LEAH WOLF MD, Ot I73. 9 PERIPHERAL VASCULAR DISEASE, UNSPECIFIED 04/16/2018 LEAH WOLF MD, Ot I87. 2 VENOUS INSUFFICIENCY (CHRONIC) (PERIPHER 04/16/2018 LEAH WOLF MD, Ot J30. 2 OTHER SEASONAL ALLERGIC RHINITIS 04/16/2018 LEAH WOLF MD, Ot J40 BRONCHITIS, NOT SPECIFIED ACUTE OR CH 04/16/2018 LEAH WOLF MD, Ot J44. 1 CHRONIC OBSTRUCTIVE PULMONARY DISEASE W 04/16/2018 LEAH WOLF MD, Ot K21. 9 GASTRO-ESOPHAGEAL REFLUX DISEASE WITHOUT 04/16/2018 LEAH WOLF MD, Ot K44. 9 DIAPHRAGMATIC HERNIA WITHOUT OBSTRUCTION 04/16/2018 LEAH WOLF MD, Ot K58. 0 IRRITABLE BOWEL SYNDROME WITH DIARRHEA 04/16/2018 LEAH WOLF MD, Ot K58. 1 IRRITABLE BOWEL SYNDROME WITH CONSTIPATI 04/16/2018 LEAH WOLF MD, Ot M19. 91 PRIMARY OSTEOARTHRITIS, UNSPECIFIED SITE 04/16/2018 LEAH WOLF MD, Ot R73. 03 PREDIABETES 04/16/2018 LEAH WOLF MD, Ot Z79. 01 CARE HOME (CURRENT) USE OF ANTICOAGULANT 04/16/2018 LEAH WOLF MD, Ot Z79. 52 DR[address] THRU ORDER TAKER (CURRENT) USE OF SYSTEMIC STER 04/16/2018 LEAH WOLF MD, Ot Z86. 19 PERSONAL HISTORY OF OTHER INFECTIOUS AND 04/16/2018 LEAH WOLF MD, Ot Z86.711 PERSONAL HISTORY OF PULMONARY EMBOLISM 04/16/2018 LEAH WOLF MD, Ot Z86.718 PERSONAL HISTORY OF OTHER VENOUS THROMBO 04/16/2018 LEAH WOLF MD, Ot Z87.891 PERSONAL HISTORY OF NICOTINE DEPENDENCE 04/18/2018 ANNIKA HOLLEY MD Ot I87.321 CHRONIC VENOUS HYPERTENSION W INFLAMMATI 04/18/2018 ANNIKA HOLLEY MD Ot I87.332 CHRONIC VENOUS HTN W ULCER AND INFLAMMAT 04/18/2018 ANNIKA HOLLEY MD Ot J44.9 CHRONIC OBSTRUCTIVE PULMONARY DISEASE, U 04/18/2018 ANNIKA HOLLEY MD Ot L97.822 NON- PRS CHRONIC ULCER OTH PRT L LOW LEG 04/23/2018 BARRON VALLE APRN Ot I87.332 CHRONIC VENOUS HTN W ULCER AND INFLAMMAT 04/23/2018 BARRON VALLE APRN Ot L97.222 NON-PRESSURE CHRONIC ULCER OF LEFT CALF 04/24/2018 ANNIKA HOLLEY MD Ot I87.321 CHRONIC VENOUS HYPERTENSION W INFLAMMATI 04/24/2018 ANNIKA HOLLEY MD Ot I87.332 CHRONIC VENOUS HTN W ULCER AND INFLAMMAT 04/24/2018 ANNIKA HOLLEY MD Ot J44.9 CHRONIC OBSTRUCTIVE PULMONARY DISEASE, U 04/24/2018 ANNIKA HOLLEY MD Ot L97.822 NON- PRS CHRONIC ULCER OTH PRT L LOW LEG 04/24/2018 HOWARD SALDANA MD Ot I87.332 CHRONIC VENOUS HTN W ULCER AND INFLAMMAT 04/24/2018 HOWARD SALDANA MD Ot L97.222 NON-PRESSURE CHRONIC ULCER OF LEFT CALF 04/28/2018 ANNIKA HOLLEY MD Ot I87.321 CHRONIC VENOUS HYPERTENSION W INFLAMMATI 04/28/2018 ANNIKA HOLLEY MD Ot I87.332 CHRONIC VENOUS HTN W ULCER AND INFLAMMAT 04/28/2018 ANNIKA HOLLEY MD, Ot J44.9 CHRONIC OBSTRUCTIVE PULMONARY DISEASE, U 05/01/2018 ANNIKA HOLLEY MD Ot I87.321 CHRONIC VENOUS HYPERTENSION W INFLAMMATI 05/01/2018 ANNIKA HOLLEY MD Ot I87.332 CHRONIC VENOUS HTN W ULCER AND INFLAMMAT 05/01/2018 ANNIKA HOLLEY MD, Ot J44.9 CHRONIC OBSTRUCTIVE PULMONARY DISEASE, U 05/01/2018 ANNIKA HOLLEY MD Ot L97.822 NON- PRS CHRONIC ULCER OTH PRT L LOW LEG 05/09/2018 ANNIKA HOLLEY MD Ot I87.321 CHRONIC VENOUS HYPERTENSION W INFLAMMATI 05/09/2018 ANNIKA HOLLEY MD, Ot I87.332 CHRONIC VENOUS HTN W ULCER AND INFLAMMAT 05/09/2018 ANNIKA HOLLEY MD, Ot J44.9 CHRONIC OBSTRUCTIVE PULMONARY DISEASE, U 06/08/2018 HOWARD SALDANA MD Ot I87.332 CHRONIC VENOUS HTN W ULCER AND INFLAMMAT 06/08/2018 HOWARD SALDANA MD Ot L97.222 NON-PRESSURE CHRONIC ULCER OF LEFT CALF 06/09/2018 HOWARD SALDANA MD Ot I87.332 CHRONIC VENOUS HTN W ULCER AND INFLAMMAT 06/09/2018 HOWARD SALDANA MD Ot L97.222 NON-PRESSURE CHRONIC ULCER OF LEFT CALF 06/20/2018 KIRAN GREERP Ot 286.9 COAGULAT DEFECT NEC/NOS 06/20/2018 KIRAN GREER AVIATION MANAGER Ot 4 96 CHR AIRWAY OBSTRUCT NEC 06/20/2018 KIRAN GREERP Ot 564.1 IRRITABLE BOWEL SYNDROME 06/20/2018 KIRAN GREER AVIATION MANAGER Ot 585.3 CHRONIC KIDNEY DISEASE, STAGE III (MODER 06/20/2018 KIRAN GREER AVIATION MANAGER Ot V12.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 EMBOLISM 06/20/2018 KIRAN GREERP Ot V12.55 PERSONAL HISTORY OF PULMONARY EMBOLISM 06/20/2018 KIRAN GREER AVIATION MANAGER Ot V58.61 ANTICOAGULANTS,LT,CURRENT USE 06/20/2018 KIRAN GREER AVIATION MANAGER Ot V58.69 OTH MED,LT,CURRENT USE 06/20/2018 Ot 686.9 LOCA L SKIN INFECTION NOS 06/20/2018 LUCIANO ROSARIO, LEAH Jacome Ot 724. 2 LUMBAGO 06/20/2018 LEAH WOLF MD Ot 721. 3 LUMBOSACRAL SPONDYLOSIS 06/20/2018 Ot 454.9 ASYM PTOMATIC VARICOSE VEINS 06/20/2018 Ot 998.83 NON -HEALING SURG WOUND 06/20/2018 Ot 998.89 OTH ER SPEC COMPLICATIONS OF PROCEDURES N 06/20/2018 ELLEN ROSARIO, HOWARD Logan Ot 354.2 ULNAR NERVE LESION 06/20/2018 ELLEN ROSARIO, HOWARD Logan Ot V72.63 PRE-PROCEDURAL LABORATORY EXAMINATION 06/20/2018 ELLEN ROSARIO, HOWARD Logan Ot V74.8 SCREEN-BACTERIAL DIS NEC 06/20/2018 LUCIANO ROSARIO, LEAH Jacome Ot 496 CHR AIRWAY OBSTRUCT NEC 06/20/2018 LUCIANO ROSARIO, LEAH Jacome Ot 486 PNEUMONIA, ORGANISM NOS 06/20/2018 TERRI KIDD DO Ot 414. 00 CORON ATHEROSCLER NOS TYPE VESSEL, NATIV 06/20/2018 TERRI KIDD DO Ot 493. 20 CHRONIC OBSTRUCTIVE ASTHMA, NOS 06/20/2018 TERRI KIDD DO Ot 530. 81 ESOPHAGEAL REFLUX 06/20/2018 TERRI KIDD DO Ot 786. 09 RESPIRATORY ABNORM NEC 06/20/2018 LUCIANO ROSARIO, LEAH Jacome Ot 789. 06 ABDOMINAL PAIN, EPIGASTRIC 06/20/2018 AKIKO NAVARRO Ot 401.9 HYPERTENSION NOS 06/20/2018 AKIKO NAVARRO Ot 414.00 CORON ATHEROSCLER NOS TYPE VESSEL, NATIV 06/20/2018 AKIKO NAVARRO Ot 780.2 SYNCOPE AND COLLAPSE 06/20/2018 AKIKO NAVARRO Ot 786.50 CHEST PAIN NOS 06/20/2018 AKIKO NAVARRO Ot V12.55 PERSONAL HISTORY OF PULMONARY EMBOLISM 06/20/2018 AKIKO NAVARRO Ot 401.9 HYPERTENSION NOS 06/20/2018 AKIKO NAVARRO Ot 414.00 CORON ATHEROSCLER NOS TYPE VESSEL, NATIV 06/20/2018 AKIKO NAVARRO Ot 780.2 SYNCOPE AND COLLAPSE 06/20/2018 AKIKO NAVARRO Ot 785.1 PALPITATIONS 06/20/2018 AKIKO NAVARRO Ot 786.50 CHEST PAIN NOS 06/20/2018 AKIKO NAVARRO Ot V12.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 EMBOLISM 06/20/2018 AKIKO NAVARRO Ot V12.55 PERSONAL HISTORY OF PULMONARY EMBOLISM 06/20/2018 MELODYMORAIMATERESITA ADAM Jennifer Ot 285.9 ANEMIA NOS 06/20/2018 LEAH WOLF MD, Ot V76. 12 OTH SCREEN MAMMO-MALIGN NEOPLASM OF MICHELE 06/20/2018 LEAH WOLF MD Ot 719. 46 JOINT PAIN-L/LEG 06/20/2018 AKIKO NAVARRO Ot 272.4 HYPERLIPIDEMIA NEC/NOS 06/20/2018 LEAH WOLF MD, Ot V58. 62 ENCOUNT FOR LONG-TERM(CURRENT) USE OF AN 06/20/2018 LEAH WOLF MD, Ot V58. 83 ENCOUNTER FOR THERAPEUTIC DRUG MONITORIN 06/20/2018 TEDDY PHILIP MD Ot V72.84 EXAM PRE-OPERATIVE NOS 06/20/2018 LEAH WOLF MD, Ot 789. 00 ABDOMINAL PAIN, UNSPECIFIED SITE 06/20/2018 LEAH WOLF MD, Ot V76. 12 OTH SCREEN MAMMO-MALIGN NEOPLASM OF [place]HELE 06/20/2018 LEAH WOLF MD Ot N64. 4 MASTODYNIA 06/20/2018 LEAH WOLF MD, Ot R41. 3 OTHER AMNESIA 06/20/2018 LEAH WOLF MD Ot R91. 8 OTHER NONSPECIFIC ABNORMAL FINDING OF SLIM 06/20/2018 AKIKO NAVARRO Ot E78.0 PURE HYPERCHOLESTEROLEMIA 06/20/2018 AKIKO NAVARRO Ot I10 ESSENTIAL (PRIMARY) HYPERTENSION 06/20/2018 AKIKO NAVARRO Ot I25.10 ATHSCL HEART DISEASE OF [place] CORONARY 06/20/2018 AKIKO NAVARRO Ot R55 SYNCOPE AND COLLAPSE 06/20/2018 LEAH WOLF MD Ot Z12. 31 ENCNTR SCREEN MAMMOGRAM FOR MALIGNANT NE 06/20/2018 LAKE, CHULA D AVIATION MANAGER Ot R60. 0 LOCALIZED EDEMA 06/20/2018 CHARITY ROSARIO [facility], ALI FACP CCDS Ot R00.2 PALPITATIONS 06/20/2018 CHARITY ROSARIO [facility], ALI FACP CCDS Ot R06.02 SHORTNESS OF BREATH 06/20/2018 CHARITY ROSARIO [facility], ALI FACP CCDS Ot R07.89 OTHER CHEST PAIN 06/20/2018 CHARITY ROSARIO [facility], ALI FACP CCDS Ot 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 06/20/2018 CHARITY ROSARIO [facility], ALI FACP CCDS Ot I10 ESSENTIAL (PRIMARY) HYPERTENSION 06/20/2018 CHARITY ROSARIO [facility], ALI FACP CCDS Ot I25.10 ATHSCL HEART DISEASE OF [place] CORONARY 06/20/2018 CHARITY ROSARIO [facility], ALI FACP CCDS Ot I73.9 PERIPHERAL VASCULAR DISEASE, UNSPECIFIED 06/20/2018 CHARITY ROSARIO [facility], ALI FACP CCDS Ot J43.8 OTHER EMPHYSEMA 06/20/2018 CHARITY ROSARIO [facility], ALI FACP CCDS Ot M79.89 OTHER SPECIFIED SOFT TISSUE DISORDERS 06/20/2018 CHARITY ROSARIO [facility], ALI FACP CCDS Ot R06.02 SHORTNESS OF BREATH 06/20/2018 CHARITY ROSARIO [facility], ALI FACP CCDS Ot Z86.718 PERSONAL HISTORY OF OTHER VENOUS THROMBO 06/20/2018 CHARITY ROSARIO [facility], ALI FACP CCDS Ot 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 06/20/2018 CHARITY ROSARIO [facility], ALI FACP CCDS Ot I10 ESSENTIAL (PRIMARY) HYPERTENSION 06/20/2018 CHARITY ROSARIO [facility], ALI FACP CCDS Ot I25.10 ATHSCL HEART DISEASE OF [facility] CORONARY 06/20/2018 CHARITY ROSARIO [facility], ALI FACP CCDS Ot I73.9 PERIPHERAL VASCULAR DISEASE, UNSPECIFIED 06/20/2018 CHARITY ROSARIO [facility], ALI FACP CCDS Ot R06.02 SHORTNESS OF BREATH 06/20/2018 CHARITY ROSARIO [facility], ALI FACP CCDS Ot Z86.718 PERSONAL HISTORY OF OTHER VENOUS THROMBO 06/20/2018 LEAH WOLF MD Ot K62. 5 HEMORRHAGE OF ANUS AND RECTUM 06/20/2018 LEAH WOLF MD Ot R91. 8 OTHER NONSPECIFIC ABNORMAL FINDING OF SLIM 06/20/2018 LEAH WOLF MD, Ot Z12. 31 ENCNTR SCREEN MAMMOGRAM FOR MALIGNANT NE 06/20/2018 LEAH WOLF MD, Ot Z51. 81 ENCOUNTER FOR THERAPEUTIC DRUG LEVEL MON 06/20/2018 LEAH WOLF MD, Ot Z79. 01 DR[address] THRU ORDER TAKER (CURRENT) USE OF ANTICOAGULANT 06/20/2018 LEAH WOLF MD, Ot Z86.718 PERSONAL HISTORY OF OTHER VENOUS THROMBO 06/20/2018 LEAH WOLF MD, Ot N64. 89 OTHER SPECIFIED DISORDERS OF BREAST 06/20/2018 HOWARD GROVES MD, Ot J32 .9 CHRONIC SINUSITIS, UNSPECIFIED 06/20/2018 HOWARD GROVES MD, Ot J33 .9 NASAL POLYP, UNSPECIFIED 06/20/2018 LEAH WOLF MD, Ot R91. 1 SOLITARY PULMONARY NODULE 06/20/2018 LEAH WOLF MD, Ot N64. 4 MASTODYNIA 06/20/2018 LEAH WOLF MD, Ot R10. 31 RIGHT LOWER QUADRANT PAIN 06/20/2018 LEAH WOLF MD, Ot Z95.828 PRESENCE OF OTHER VASCULAR IMPLANTS AND 06/20/2018 LEAH WOLF MD, Ot J33. 9 NASAL POLYP, UNSPECIFIED 06/20/2018 LEAH WOLF MD, Ot Z01.810 ENCOUNTER FOR PREPROCEDURAL CARDIOVASCUL 06/20/2018 TEDDY PHILIP MD, Ot K57.30 DVRTCLOS OF LG INT W/O PERFORATION OR AB 06/20/2018 TDEDY PHILIP MD, Ot N20.2 CALCULUS OF KIDNEY WITH CALCULUS OF URET 06/20/2018 TEDDY PHILIP MD, Ot R59.0 LOCALIZED ENLARGED LYMPH NODES 06/20/2018 [place] Ot M17. 12 UNILATERAL PRIMARY OSTEOARTHRITIS, LEFT 06/20/2018 [place] Ot M23.262 DERANGEMENT OF LAT MENSC DUE TO OLD TEAR 06/20/2018 RONAN ROSARIO, ARIES Bass Ot Z87.4 42 PERSONAL HISTORY OF URINARY CALCULI 06/20/2018 HOWARD SALDANA MD Ot I70.[address] [facility] ARTERIES OF LEFT LEG W ULC 06/20/2018 HOWARD SALDANA MD Ot I87.321 CHRONIC VENOUS HYPERTENSION W INFLAMMATI 06/20/2018 HOWARD SALDANA MD Ot I87.332 CHRONIC VENOUS HTN W ULCER AND INFLAMMAT 06/20/2018 HOWARD SALDANA MD, Ot I89 .0 LYMPHEDEMA, NOT ELSEWHERE CLASSIFIED 06/20/2018 HOWARD SALDANA MD Ot L97.222 NON-PRESSURE CHRONIC ULCER OF LEFT CALF 06/20/2018 HOWARD SALDANA MD Ot I70.[address] [place] ARTERIES OF LEFT LEG W ULC 06/20/2018 HOWARD SALDANA MD Ot I87.321 CHRONIC VENOUS HYPERTENSION W INFLAMMATI 06/20/2018 HOWARD SALDANA MD Ot I87.332 CHRONIC VENOUS HTN W ULCER AND INFLAMMAT 06/20/2018 HOWARD SALDANA MD, Ot I89 .0 LYMPHEDEMA, NOT ELSEWHERE CLASSIFIED 06/20/2018 HOWARD SALDANA MD Ot L97.222 NON-PRESSURE CHRONIC ULCER OF LEFT CALF 06/20/2018 HOWARD SALDANA MD Ot I87.321 CHRONIC VENOUS HYPERTENSION W INFLAMMATI 06/20/2018 HOWARD SALDANA MD Ot I87.332 CHRONIC VENOUS HTN W ULCER AND INFLAMMAT 06/20/2018 HOWARD SALDANA MD, Ot I89 .0 LYMPHEDEMA, NOT ELSEWHERE CLASSIFIED 06/20/2018 HOWARD SALDANA MD Ot L97.222 NON-PRESSURE CHRONIC ULCER OF LEFT CALF 06/20/2018 HOWARD SALDANA MD Ot I87.321 CHRONIC VENOUS HYPERTENSION W INFLAMMATI 06/20/2018 HOWARD SALDANA MD Ot I87.332 CHRONIC VENOUS HTN W ULCER AND INFLAMMAT 06/20/2018 HOWARD SALDANA MD Ot I89 .0 LYMPHEDEMA, NOT ELSEWHERE CLASSIFIED 06/20/2018 HOWARD SALDANA MD Ot L97.222 NON-PRESSURE CHRONIC ULCER OF LEFT CALF 06/20/2018 HOWARD SALDANA MD Ot I87.321 CHRONIC VENOUS HYPERTENSION W INFLAMMATI 06/20/2018 HOWARD SALDANA MD Ot I87.332 CHRONIC VENOUS HTN W ULCER AND INFLAMMAT 06/20/2018 HOWARD SALDANA MD Ot I89 .0 LYMPHEDEMA, NOT ELSEWHERE CLASSIFIED 06/20/2018 HOWARD SALDANA MD Ot L97.222 NON-PRESSURE CHRONIC ULCER OF LEFT CALF 06/20/2018 LUCIANO ROSARIO, LEAH Jacome Ot J44. 1 CHRONIC OBSTRUCTIVE PULMONARY DISEASE W 06/20/2018 HOWARD SALDANA MD Ot I87.332 CHRONIC VENOUS HTN W ULCER AND INFLAMMAT 06/20/2018 HOWARD SALDANA MD, Ot J44 .9 CHRONIC OBSTRUCTIVE PULMONARY DISEASE, U 06/20/2018 HOWARD SALDANA MD Ot L97.222 NON-PRESSURE CHRONIC ULCER OF LEFT CALF 06/20/2018 HOWARD SALDANA MD Ot I87.321 CHRONIC VENOUS HYPERTENSION W INFLAMMATI 06/20/2018 HOWARD SALDANA MD, Ot I87.332 CHRONIC VENOUS HTN W ULCER AND INFLAMMAT 06/20/2018 HOWARD SALDANA MD, Ot J44 .9 CHRONIC OBSTRUCTIVE PULMONARY DISEASE, U 06/20/2018 HOWARD SALDANA MD Ot L97.222 NON-PRESSURE CHRONIC ULCER OF LEFT CALF 06/20/2018 HOWARD SALDANA MD, Ot I87.332 CHRONIC VENOUS HTN W ULCER AND INFLAMMAT 06/20/2018 HOWARD SALDANA MD, Ot J44 .9 CHRONIC OBSTRUCTIVE PULMONARY DISEASE, U 06/20/2018 HOWARD SALDANA MD, Ot L97.222 NON-PRESSURE CHRONIC ULCER OF LEFT CALF 06/20/2018 ANNIKA HOLLEY MD Ot I87.321 CHRONIC VENOUS HYPERTENSION W INFLAMMATI 06/20/2018 ANNIKA HOLLEY MD Ot I87.332 CHRONIC VENOUS HTN W ULCER AND INFLAMMAT 06/20/2018 ANNIKA HOLLEY MD, Ot J44.9 CHRONIC OBSTRUCTIVE PULMONARY DISEASE, U 06/20/2018 ANNIKA HOLLEY MD Ot L97.822 NON- PRS CHRONIC ULCER OTH PRT L LOW LEG 06/20/2018 [place] PHARMACE[employer]ICAL SPECIALTY REPRESENTATIVE Ot I87.332 CHRONIC VENOUS HTN W ULCER AND INFLAMMAT 06/20/2018 [place]ON [place] APRN Ot J44.9 CHRONIC OBSTRUCTIVE PULMONARY DISEASE, U 06/20/2018 [place] PHARMACE[employer] SPECIALTY REPRESENTATIVE Ot L97.222 NON-PRESSURE CHRONIC ULCER OF LEFT CALF 06/20/2018 BARRON VALLE APRN Ot I87.332 CHRONIC VENOUS HTN W ULCER AND INFLAMMAT 06/20/2018 [place] PHARMACE[employer]ICAL SPECIALTY REPRESENTATIVE Ot L97.222 NON-PRESSURE CHRONIC ULCER OF LEFT CALF 06/20/2018 ANNIKA HOLLEY MD Ot I87.321 CHRONIC VENOUS HYPERTENSION W INFLAMMATI 06/20/2018 ANNIKA HOLLEY MD Ot I87.332 CHRONIC VENOUS HTN W ULCER AND INFLAMMAT 06/20/2018 ANNIKA HOLLEY MD, Ot J44.9 CHRONIC OBSTRUCTIVE PULMONARY DISEASE, U 06/20/2018 ANNIKA HOLLEY MD Ot L97.822 NON- PRS CHRONIC ULCER OTH PRT L LOW LEG 06/20/2018 ANNIKA HOLLEY MD Ot I87.321 CHRONIC VENOUS HYPERTENSION W INFLAMMATI 06/20/2018 ANNIKA HOLLEY MD Ot I87.332 CHRONIC VENOUS HTN W ULCER AND INFLAMMAT 06/20/2018 ANNIKA HOLLEY MD, Ot J44.9 CHRONIC OBSTRUCTIVE PULMONARY DISEASE, U 06/20/2018 ANNIKA HOLLEY MD Ot L97.822 NON- PRS CHRONIC ULCER OTH PRT L LOW LEG 06/20/2018 ANNIKA HOLLEY MD Ot I87.321 CHRONIC VENOUS HYPERTENSION W INFLAMMATI 06/20/2018 ANNIKA HOLLEY MD Ot I87.332 CHRONIC VENOUS HTN W ULCER AND INFLAMMAT 06/20/2018 ANNIKA HOLLEY MD, Ot J44.9 CHRONIC OBSTRUCTIVE PULMONARY DISEASE, U 06/20/2018 HOWARD SALDANA MD Ot I87.332 CHRONIC VENOUS HTN W ULCER AND INFLAMMAT 06/20/2018 HOWARD SALDANA MD Ot L97.222 NON-PRESSURE CHRONIC ULCER OF LEFT CALF 06/23/2018 LEAH WOLF MD Ot R05 COUGH 06/23/2018 LEAH WOLF MD Ot R06. 02 SHORTNESS OF BREATH 06/23/2018 LEAH WOLF MD Ot R91. 8 OTHER NONSPECIFIC ABNORMAL FINDING OF SLIM 07/09/2018 LEAH WOLF MD Ot E78. 00 PURE HYPERCHOLESTEROLEMIA, UNSPECIFIED 07/09/2018 LEAH WOLF MD Ot F41. 9 ANXIETY DISORDER, UNSPECIFIED 07/09/2018 LEAH WOLF MD, Ot G62. 9 POLYNEUROPATHY, UNSPECIFIED 07/09/2018 LEAH WOLF MD Ot I10 ESSENTIAL (PRIMARY) HYPERTENSION 07/09/2018 LEAH WOLF MD Ot I73. 9 PERIPHERAL VASCULAR DISEASE, UNSPECIFIED 07/09/2018 LEAH WOLF MD, Ot J44. 1 CHRONIC OBSTRUCTIVE PULMONARY DISEASE W 07/09/2018 LEAH WOLF MD Ot K21. 9 GASTRO-ESOPHAGEAL REFLUX DISEASE WITHOUT 07/09/2018 LEAH WOLF MD Ot K59. 09 OTHER CONSTIPATION 07/09/2018 LEAH WOLF MD Ot R09. 02 HYPOXEMIA 07/09/2018 LEAH WOLF MD, Ot R73. 03 PREDIABETES 07/09/2018 LEAH WOLF MD, Ot Z79. 01 CARE HOME (CURRENT) USE OF ANTICOAGULANT 07/09/2018 LEAH WOLF MD, Ot Z79.899 OTHER CARE HOME (CURRENT) DRUG THERAPY 07/09/2018 LEAH WOLF MD, Ot Z86.711 PERSONAL HISTORY OF PULMONARY EMBOLISM 07/09/2018 LEAH WOLF MD, Ot Z86.718 PERSONAL HISTORY OF OTHER VENOUS THROMBO 07/09/2018 LEAH WOLF MD, Ot Z87.891 PERSONAL HISTORY OF NICOTINE DEPENDENCE 07/09/2018 LEAH WOLF MD, Ot Z98.890 OTHER SPECIFIED POSTPROCEDURAL STATES 07/09/2018 LEAH WOLF MD, Ot Z99. 81 DEPENDENCE ON SUPPLEMENTAL OXYGEN 07/09/2018 LEAH WOLF MD, Ot E78. 00 PURE HYPERCHOLESTEROLEMIA, UNSPECIFIED 07/09/2018 LEAH WOLF MD, Ot F41. 9 ANXIETY DISORDER, UNSPECIFIED 07/09/2018 LEAH WOLF MD, Ot G62. 9 POLYNEUROPATHY, UNSPECIFIED 07/09/2018 LEAH WOLF MD, Ot I10 ESSENTIAL (PRIMARY) HYPERTENSION 07/09/2018 LEAH WOLF MD, Ot I73. 9 PERIPHERAL VASCULAR DISEASE, UNSPECIFIED 07/09/2018 LEAH WOLF MD, Ot J44. 1 CHRONIC OBSTRUCTIVE PULMONARY DISEASE W 07/09/2018 LEAH WOLF MD, Ot K21. 9 GASTRO-ESOPHAGEAL REFLUX DISEASE WITHOUT 07/09/2018 LEAH WOLF MD, Ot K59. 09 OTHER CONSTIPATION 07/09/2018 LEAH WOLF MD, Ot R09. 02 HYPOXEMIA 07/09/2018 LEAH WOLF MD, Ot R73. 03 PREDIABETES 07/09/2018 LEAH WOLF MD, Ot Z79. 01 CARE HOME (CURRENT) USE OF ANTICOAGULANT 07/09/2018 LEAH WOLF MD, Ot Z79.899 OTHER CARE HOME (CURRENT) DRUG THERAPY 07/09/2018 LEAH WOLF MD, Ot Z86.711 PERSONAL HISTORY OF PULMONARY EMBOLISM 07/09/2018 LEAH WOLF MD Ot Z86.718 PERSONAL HISTORY OF OTHER VENOUS THROMBO 07/09/2018 LEAH WOLF MD Ot Z87.891 PERSONAL HISTORY OF NICOTINE DEPENDENCE 07/09/2018 LEAH WOLF MD Ot Z98.890 OTHER SPECIFIED POSTPROCEDURAL STATES 07/09/2018 LEAH WOLF MD Ot Z99. 81 DEPENDENCE ON SUPPLEMENTAL OXYGEN 07/18/2018 KIRAN GREER AVIATION MANAGER Ot 286.9 COAGULAT DEFECT NEC/NOS 07/18/2018 KIRAN GREER AVIATION MANAGER Ot 4 96 CHR AIRWAY OBSTRUCT NEC 07/18/2018 KIRAN GREER AVIATION MANAGER Ot 564.1 IRRITABLE BOWEL SYNDROME 07/18/2018 KIRAN GREER AVIATION MANAGER Ot 585.3 CHRONIC KIDNEY DISEASE, STAGE III (MODER 07/18/2018 KIRAN GREER AVIATION MANAGER Ot V12.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 EMBOLISM 07/18/2018 KIRAN GREER AVIATION MANAGER Ot V12.55 PERSONAL HISTORY OF PULMONARY EMBOLISM 07/18/2018 KIRAN GREER AVIATION MANAGER Ot V58.61 ANTICOAGULANTS,LT,CURRENT USE 07/18/2018 KIRAN GREER AVIATION MANAGER Ot V58.69 OT MED,LT,CURRENT USE 07/18/2018 LEAH WOLF MD Ot 724. 2 LUMBAGO 07/18/2018 LEAH WOLF MD Ot 721. 3 LUMBOSACRAL SPONDYLOSIS 07/18/2018 Ot 454.9 ASYM PTOMATIC VARICOSE VEINS 07/18/2018 Ot 998.83 NON -HEALING SURG WOUND 07/18/2018 Ot 998.89 OT ER SPEC COMPLICATIONS OF PROCEDURES N 07/18/2018 HOWARD HUGHES MD Ot 354.2 ULNAR NERVE LESION 07/18/2018 HOWARD HUGHES MD Ot V72.63 PRE-PROCEDURAL LABORATORY EXAMINATION 07/18/2018 HOWARD HUGHES MD Ot V74.8 SCREEN-BACTERIAL DIS NEC 07/18/2018 LEAH WOLF MD Ot 496 CHR AIRWAY OBSTRUCT NEC 07/18/2018 LEAH WOLF MD Ot 486 PNEUMONIA, ORGANISM NOS 07/18/2018 TERRI KIDD DO Ot 414. 00 CORON ATHEROSCLER NOS TYPE VESSEL, NATIV 07/18/2018 TERRI KIDD DO Ot 493. 20 CHRONIC OBSTRUCTIVE ASTHMA, NOS 07/18/2018 TERRI KIDD DO Ot 530. 81 ESOPHAGEAL REFLUX 07/18/2018 TERRI KIDD DO Ot 786. 09 RESPIRATORY ABNORM NEC 07/18/2018 LEAH WOLF MD Ot 789. 06 ABDOMINAL PAIN, EPIGASTRIC 07/18/2018 AKIKO NAVARRO Ot 401.9 HYPERTENSION NOS 07/18/2018 AKIKO NAVARRO Ot 414.00 CORON ATHEROSCLER NOS TYPE VESSEL, NATIV 07/18/2018 AKIKO NAVARRO Ot 780.2 SYNCOPE AND COLLAPSE 07/18/2018 AKIKO NAVARRO Ot 786.50 CHEST PAIN NOS 07/18/2018 AKIKO NAVARRO Ot V12.55 PERSONAL HISTORY OF PULMONARY EMBOLISM 07/18/2018 AKIKO NAVARRO Ot 401.9 HYPERTENSION NOS 07/18/2018 AKIKO NAVARRO Ot 414.00 CORON ATHEROSCLER NOS TYPE VESSEL, NATIV 07/18/2018 AKIKO NAVARRO Ot 780.2 SYNCOPE AND COLLAPSE 07/18/2018 AKIKO NAVARRO Ot 785.1 PALPITATIONS 07/18/2018 AKIKO NAVARRO Ot 786.50 CHEST PAIN NOS 07/18/2018 AKIKO NAVARRO Ot V12.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 EMBOLISM 07/18/2018 AKIKO NAVARRO Ot V12.55 PERSONAL HISTORY OF PULMONARY EMBOLISM 07/18/2018 ADAM BARON DO Ot 285.9 ANEMIA NOS 07/18/2018 LEAH WOLF MD Ot V76. 12 OTH SCREEN MAMMO-MALIGN NEOPLASM OF [place]HE[place] 07/18/2018 LEAH WOLF MD Ot 719. 46 JOINT PAIN-L/LEG 07/18/2018 AKIKO NAVARRO Ot 272.4 HYPERLIPIDEMIA NEC/NOS 07/18/2018 LEAH WOLF MD Ot V58. 62 ENCOUNT FOR LONG-TERM(CURRENT) USE OF AN 07/18/2018 LEAH WOLF MD Ot V58. 83 ENCOUNTER FOR THERAPEUTIC DRUG MONITORIN 07/18/2018 CEDRICK ROSARIO, MISTYFRANCISCO Ot V72.84 EXAM PRE-OPERATIVE NOS 07/18/2018 LEAH WOLF MD Ot 789. 00 ABDOMINAL PAIN, UNSPECIFIED SITE 07/18/2018 LEAH WOLF MD, Ot V76. 12 OTH SCREEN MAMMO-MALIGN NEOPLASM OF [place] 07/18/2018 LEAH WOLF MD Ot N64. 4 MASTODYNIA 07/18/2018 LEAH WOLF MD Ot R41. 3 OTHER AMNESIA 07/18/2018 LAEH WOLF MD Ot R91. 8 OTHER NONSPECIFIC ABNORMAL FINDING OF SLIM 07/18/2018 AKIKO NAVARRO Ot E78.0 PURE HYPERCHOLESTEROLEMIA 07/18/2018 AKIKO NAVARRO Ot I10 ESSENTIAL (PRIMARY) HYPERTENSION 07/18/2018 AKIKO NAVARRO Ot I25.10 [address] DISEASE [place] [facility] CORONARY 07/18/2018 AKIKO NAVARRO Ot R55 SYNCOPE AND COLLAPSE 07/18/2018 LEAH WOLF MD Ot Z12. 31 ENCNTR SCREEN MAMMOGRAM FOR MALIGNANT NE 07/18/2018 [place] AVIATION MANAGER Ot R60. 0 LOCALIZED EDEMA 07/18/2018 CHARITY ROSARIO FACC, ALI FACP CCDS Ot R00.2 PALPITATIONS 07/18/2018 CHARITY ROSARIO FACC, ALI FACP CCDS Ot R06.02 SHORTNESS OF BREATH 07/18/2018 CHARITY ROSARIO FACC, ALI FACP CCDS Ot R07.89 OTHER CHEST PAIN 07/18/2018 CHARITY ROSARIO FACC, ALI FACP CCDS Ot 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 07/18/2018 CHARITY ROSARIO FACC, ALI FACP CCDS Ot I10 ESSENTIAL (PRIMARY) HYPERTENSION 07/18/2018 CHARITY ROSARIO FACC, ALI FACP CCDS Ot I25.10 [address]ART DISEASE OF [facility] CORONARY 07/18/2018 CHARITY ROSARIO FACC, ALI FACP CCDS Ot I73.9 PERIPHERAL VASCULAR DISEASE, UNSPECIFIED 07/18/2018 CHARITY ROSARIO FACC, ALI FACP CCDS Ot J43.8 OTHER EMPHYSEMA 07/18/2018 CHARITY ROSARIO [facility] Ot M79.89 OTHER SPECIFIED SOFT TISSUE DISORDERS 07/18/2018 CHARITY ROSARIO [facility], ALI FACP CCDS Ot R06.02 SHORTNESS OF BREATH 07/18/2018 CHARITY ROSARIO [facility], ALI FACP CCDS Ot Z86.718 PERSONAL HISTORY OF OTHER VENOUS THROMBO 07/18/2018 CHARITY ROSARIO [facility], ALI FACP CCDS Ot 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 07/18/2018 CHARITY ROSARIO [facility], ALI FACP CCDS Ot I10 ESSENTIAL (PRIMARY) HYPERTENSION 07/18/2018 CHARITY ROSARIO [facility], [facility] I25.10 A[address] HEART DISEASE OF [facility] CORONARY 07/18/2018 CHARITY ROSARIO [facility] Ot I73.9 PERIPHERAL VASCULAR DISEASE, UNSPECIFIED 07/18/2018 CHARITY ROSARIO [facility] Ot R06.02 SHORTNESS OF BREATH 07/18/2018 CHARITY ROSARIO [facility] Ot Z86.718 PERSONAL HISTORY OF OTHER VENOUS THROMBO 07/18/2018 LEAH WOLF MD, Ot K62. 5 HEMORRHAGE OF ANUS AND RECTUM 07/18/2018 LEAH WOLF MD, Ot R91. 8 OTHER NONSPECIFIC ABNORMAL FINDING OF SLIM 07/18/2018 LEAH WOLF MD, Ot Z12. 31 ENCNTR SCREEN MAMMOGRAM FOR MALIGNANT NE 07/18/2018 LEAH WOLF MD, Ot Z51. 81 ENCOUNTER FOR THERAPEUTIC DRUG LEVEL MON 07/18/2018 LEAH WOLF MD, Ot Z79. 01 DR[address] THRU ORDER TAKER (CURRENT) USE OF ANTICOAGULANT 07/18/2018 LEAH WOLF MD, Ot Z86.718 PERSONAL HISTORY OF OTHER VENOUS THROMBO 07/18/2018 LEAH WOLF MD, Ot N64. 89 OTHER SPECIFIED DISORDERS OF BREAST 07/18/2018 HOWARD GROVES MD Ot J32 .9 CHRONIC SINUSITIS, UNSPECIFIED 07/18/2018 HOWARD GROVES MD, Ot J33 .9 NASAL POLYP, UNSPECIFIED 07/18/2018 LEAH WOLF MD, Ot R91. 1 SOLITARY PULMONARY NODULE 07/18/2018 LEAH WOLF MD, Ot N64. 4 MASTODYNIA 07/18/2018 LEAH WOLF MD Ot R10. 31 RIGHT LOWER QUADRANT PAIN 07/18/2018 LEAH WOLF MD Ot Z95.828 PRESENCE OF OTHER VASCULAR IMPLANTS AND 07/18/2018 LEAH WOLF MD Ot J33. 9 NASAL POLYP, UNSPECIFIED 07/18/2018 LEAH WOLF MD, Ot Z01.810 ENCOUNTER FOR PREPROCEDURAL CARDIOVASCUL 07/18/2018 TEDDY PHILIP MD, Ot K57.30 DVRTCLOS OF LG INT W/O PERFORATION OR AB 07/18/2018 TEDDY PHILIP MD, Ot N20.2 CALCULUS OF KIDNEY WITH CALCULUS OF URET 07/18/2018 TEDDY PHILIP MD, Ot R59.0 LOCALIZED ENLARGED LYMPH NODES 07/18/2018 [place] Ot M17. 12 UNILATERAL PRIMARY OSTEOARTHRITIS, LEFT 07/18/2018 [place] Ot M23.262 DERANGEMENT OF LAT MENSC DUE TO OLD TEAR 07/18/2018 RONAN ROSARIO, ARIES Bass Ot Z87.4 42 PERSONAL HISTORY OF URINARY CALCULI 07/18/2018 HOWARD SALDANA MD Ot I70.[address] [facility] ARTERIES OF LEFT LEG W ULC 07/18/2018 HOWARD SALDANA MD Ot I87.321 CHRONIC VENOUS HYPERTENSION W INFLAMMATI 07/18/2018 HOWARD SALDANA MD Ot I87.332 CHRONIC VENOUS HTN W ULCER AND INFLAMMAT 07/18/2018 HOWARD SALDANA MD Ot I89 .0 LYMPHEDEMA, NOT ELSEWHERE CLASSIFIED 07/18/2018 HOWARD SALDANA MD Ot L97.222 NON-PRESSURE CHRONIC ULCER OF LEFT CALF 07/18/2018 HOWARD SALDANA MD Ot I70.[address] [facility] ARTERIES OF LEFT LEG W ULC 07/18/2018 HOWARD SALDANA MD Ot I87.321 CHRONIC VENOUS HYPERTENSION W INFLAMMATI 07/18/2018 HOWARD SALDANA MD Ot I87.332 CHRONIC VENOUS HTN W ULCER AND INFLAMMAT 07/18/2018 HOWARD SALDANA MD Ot I89 .0 LYMPHEDEMA, NOT ELSEWHERE CLASSIFIED 07/18/2018 HOWARD SALDANA MD Ot L97.222 NON-PRESSURE CHRONIC ULCER OF LEFT CALF 07/18/2018 HOWARD SALDANA MD Ot I87.321 CHRONIC VENOUS HYPERTENSION W INFLAMMATI 07/18/2018 HOWARD SALDANA MD Ot I87.332 CHRONIC VENOUS HTN W ULCER AND INFLAMMAT 07/18/2018 HOWARD SALDANA MD, Ot I89 .0 LYMPHEDEMA, NOT ELSEWHERE CLASSIFIED 07/18/2018 HOWARD SALDANA MD Ot L97.222 NON-PRESSURE CHRONIC ULCER OF LEFT CALF 07/18/2018 HOWARD SALDANA MD Ot I87.321 CHRONIC VENOUS HYPERTENSION W INFLAMMATI 07/18/2018 HOWARD SALDANA MD Ot I87.332 CHRONIC VENOUS HTN W ULCER AND INFLAMMAT 07/18/2018 HOWARD SALDANA MD, Ot I89 .0 LYMPHEDEMA, NOT ELSEWHERE CLASSIFIED 07/18/2018 HOWARD SALDANA MD Ot L97.222 NON-PRESSURE CHRONIC ULCER OF LEFT CALF 07/18/2018 HOWARD SALDANA MD Ot I87.321 CHRONIC VENOUS HYPERTENSION W INFLAMMATI 07/18/2018 HOWARD SALDANA MD Ot I87.332 CHRONIC VENOUS HTN W ULCER AND INFLAMMAT 07/18/2018 HOWARD SALDANA MD Ot I89 .0 LYMPHEDEMA, NOT ELSEWHERE CLASSIFIED 07/18/2018 HOWARD SALDANA MD Ot L97.222 NON-PRESSURE CHRONIC ULCER OF LEFT CALF 07/18/2018 LEAH WOLF MD Ot J44. 1 CHRONIC OBSTRUCTIVE PULMONARY DISEASE W 07/18/2018 HOWARD SALDANA MD Ot I87.332 CHRONIC VENOUS HTN W ULCER AND INFLAMMAT 07/18/2018 HOWARD SALDANA MD Ot J44 .9 CHRONIC OBSTRUCTIVE PULMONARY DISEASE, U 07/18/2018 HOWARD SALDANA MD Ot L97.222 NON-PRESSURE CHRONIC ULCER OF LEFT CALF 07/18/2018 HOWARD SALDANA MD Ot I87.321 CHRONIC VENOUS HYPERTENSION W INFLAMMATI 07/18/2018 HOWARD SALDANA MD Ot I87.332 CHRONIC VENOUS HTN W ULCER AND INFLAMMAT 07/18/2018 HOWARD SALDANA MD Ot J44 .9 CHRONIC OBSTRUCTIVE PULMONARY DISEASE, U 07/18/2018 HOWARD SALDANA MD Ot L97.222 NON-PRESSURE CHRONIC ULCER OF LEFT CALF 07/18/2018 HOWARD SALDANA MD Ot I87.332 CHRONIC VENOUS HTN W ULCER AND INFLAMMAT 07/18/2018 HOWARD SALDANA MD Ot J44 .9 CHRONIC OBSTRUCTIVE PULMONARY DISEASE, U 07/18/2018 HOWARD SALDANA MD, Ot L97.222 NON-PRESSURE CHRONIC ULCER OF LEFT CALF 07/18/2018 ANNIKA HOLLEY MD Ot I87.321 CHRONIC VENOUS HYPERTENSION W INFLAMMATI 07/18/2018 ANNIKA HOLLEY MD Ot I87.332 CHRONIC VENOUS HTN W ULCER AND INFLAMMAT 07/18/2018 ANNIKA HOLLEY MD Ot J44.9 CHRONIC OBSTRUCTIVE PULMONARY DISEASE, U 07/18/2018 ANNIKA HOLLEY MD Ot L97.822 NON- PRS CHRONIC ULCER OTH PRT L LOW LEG 07/18/2018 [place] PHARMACEUTICAL SPECIALTY REPRESENTATIVE Ot I87.332 CHRONIC VENOUS HTN W ULCER AND INFLAMMAT 07/18/2018 [place] PHARMACE[employer]ICAL SPECIALTY REPRESENTATIVE Ot J44.9 CHRONIC OBSTRUCTIVE PULMONARY DISEASE, U 07/18/2018 [place] PHARMACEUTICAL SPECIALTY REPRESENTATIVE Ot L97.222 NON-PRESSURE CHRONIC ULCER OF LEFT CALF 07/18/2018 [place] PHARMACEUTICAL SPECIALTY REPRESENTATIVE Ot I87.332 CHRONIC VENOUS HTN W ULCER AND INFLAMMAT 07/18/2018 [place] PHARMACEUTICAL SPECIALTY REPRESENTATIVE Ot L97.222 NON-PRESSURE CHRONIC ULCER OF LEFT CALF 07/18/2018 ANNIKA HOLLEY MD Ot I87.321 CHRONIC VENOUS HYPERTENSION W INFLAMMATI 07/18/2018 ANNIKA HOLLEY MD Ot I87.332 CHRONIC VENOUS HTN W ULCER AND INFLAMMAT 07/18/2018 ANNIKA HOLLEY MD Ot J44.9 CHRONIC OBSTRUCTIVE PULMONARY DISEASE, U 07/18/2018 ANNIKA HOLLEY MD Ot L97.822 NON- PRS CHRONIC ULCER OTH PRT L LOW LEG 07/18/2018 ANNIKA HOLLEY MD Ot I87.321 CHRONIC VENOUS HYPERTENSION W INFLAMMATI 07/18/2018 ANNIKA HOLLEY MD Ot I87.332 CHRONIC VENOUS HTN W ULCER AND INFLAMMAT 07/18/2018 ANNIKA HOLLEY MD Ot J44.9 CHRONIC OBSTRUCTIVE PULMONARY DISEASE, U 07/18/2018 ANNIKA HOLLEY MD Ot L97.822 NON- PRS CHRONIC ULCER OTH PRT L LOW LEG 07/18/2018 ANNIKA HOLLEY MD Ot I87.321 CHRONIC VENOUS HYPERTENSION W INFLAMMATI 07/18/2018 ANNIKA HOLLEY MD Ot I87.332 CHRONIC VENOUS HTN W ULCER AND INFLAMMAT 07/18/2018 ANNIKA HOLLEY MD Ot J44.9 CHRONIC OBSTRUCTIVE PULMONARY DISEASE, U 07/18/2018 HOWARD SALDANA MD Ot I87.332 CHRONIC VENOUS HTN W ULCER AND INFLAMMAT 07/18/2018 LES ROSARIO, HOWARD Jiménez Ot L97.222 NON-PRESSURE CHRONIC ULCER OF LEFT CALF 07/18/2018 ULCIANO ROSARIO, LEAH Jacome Ot R05 COUGH 07/18/2018 LUCIANO ROSARIO, LEAH Jacome Ot R06. 02 SHORTNESS OF BREATH 07/18/2018 LUCIANO ROSARIO, LEAH Jacome Ot R91. 8 OTHER NONSPECIFIC ABNORMAL FINDING OF SLIM 07/18/2018 STEPHANIE ECKERT DO Ot E78.00 PURE HYPERCHOLESTEROLEMIA, UNSPECIFIED 07/18/2018 BABAR WARNER LOVEA Rivas Ot F41.9 ANXIETY DISORDER, UNSPECIFIED 07/18/2018 BABAR WARNER LOVEA Rivas Ot I10 ESSENTIAL (PRIMARY) HYPERTENSION 07/18/2018 STEPHANIE ECKERT DO Ot I73.9 PERIPHERAL VASCULAR DISEASE, UNSPECIFIED 07/18/2018 BABAR STEPHANIE LOVE Ot J10.1 FLU DUE TO [facility] IDENT INFLUENZA VIRUS W O 07/18/2018 STEPHANIE ECKERT DO Ot J44.1 CHRONIC OBSTRUCTIVE PULMONARY DISEASE W 07/18/2018 BABAR WARNER LOVEA Rivas Ot K21.9 GASTRO-ESOPHAGEAL REFLUX DISEASE WITHOUT 07/18/2018 BABAR WARNER LOVEA Rivas Ot K58.9 IRRITABLE BOWEL SYNDROME WITHOUT DIARRHE 07/18/2018 STEPHANIE ECKERT DO Ot R50.9 FEVER, UNSPECIFIED 07/18/2018 BABAR WARNER LOVEA Rivas Ot Z79.01 DRIVE THRU ORDER TAKER (CURRENT) USE OF ANTICOAGULANT 07/18/2018 STEPHANIE ECKERT DO Ot Z79.51 DRIVE THRU ORDER TAKER (CURRENT) USE OF INHALED STERO 07/18/2018 BABAR STEPHANIE LOVE Ot Z79.52 DRIVE THRU ORDER TAKER (CURRENT) USE OF SYSTEMIC STER 07/18/2018 NALLEN STEPHANIE LOVE Ot Z80.0 FAMILY HISTORY OF MALIGNANT NEOPLASM OF 07/18/2018 BABAR STEPHANIE LOVE Ot Z80.1 FAMILY HISTORY OF MALIG NEOPLASM OF TRAC 07/18/2018 BABAR STEPHANIE LOVE Ot Z82.49 FAMILY HX OF ISCHEM HEART DIS AND OTH DI 07/18/2018 STEPHANIE ECKERT DO Ot Z86.010 PERSONAL HISTORY OF COLONIC POLYPS 07/18/2018 STEPHANIE ECKERT DO Ot Z86.711 PERSONAL HISTORY OF PULMONARY EMBOLISM 07/18/[address] [facility] Ot Z86.718 PERSONAL HISTORY OF OTHER VENOUS THROMBO 07/18/[address] [facility] Ot Z87.01 PERSONAL HISTORY OF PNEUMONIA (RECURRENT 07/18/[address] [facility] Ot Z87.09 PERSONAL HISTORY OF OTHER DISEASES OF TH 07/18/[address] [facility] Ot Z87.19 PERSONAL HISTORY OF OTHER DISEASES OF TH 07/18/2018 BABAR DOSTEPHANIE Ot Z87.442 PERSONAL HISTORY OF URINARY CALCULI 07/18/[address] [facility] Ot Z87.448 PERSONAL HISTORY OF OTHER DISEASES OF UR 07/18/2018 BABAR DOSTEPHANIE Ot Z87.891 PERSONAL HISTORY OF NICOTINE DEPENDENCE 07/18/2018 BABAR DOSTEPHANIE Ot Z88.4 ALLERGY STATUS TO ANESTHETIC AGENT STATU 07/18/[address] [facility] Ot Z88.6 ALLERGY STATUS TO ANALGESIC AGENT STATUS 07/18/[address] [facility] Ot Z88.7 ALLERGY STATUS TO SERUM AND VACCINE STAT 07/18/[address] [facility] Ot Z90.710 ACQUIRED ABSENCE OF BOTH CERVIX AND UTER 07/18/[address] [facility] Ot Z91.040 LATEX ALLERGY STATUS 07/18/[address] [facility] Ot Z91.041 RADIOGRAPHIC DYE ALLERGY STATUS 07/18/[address] [facility] Ot Z99.81 DEPENDENCE ON SUPPLEMENTAL OXYGEN 07/21/[address] [facility] Ot E78.00 PURE HYPERCHOLESTEROLEMIA, UNSPECIFIED 07/21/[address] [facility] Ot F41.9 ANXIETY DISORDER, UNSPECIFIED 07/21/[address] [facility] Ot I10 ESSENTIAL (PRIMARY) HYPERTENSION 07/21/[address] [facility] Ot I73.9 PERIPHERAL VASCULAR DISEASE, UNSPECIFIED 07/21/2018 BABAR STEPHANIE LOVE Ot J10.1 FLU DUE TO OTH IDENT INFLUENZA VIRUS W O 07/21/2018 NALLEN STEPHANIE LOVE Ot J44.1 CHRONIC OBSTRUCTIVE PULMONARY DISEASE W 07/21/2018 NALLEN STEPHANIE LOVE Ot K21.9 GASTRO-ESOPHAGEAL REFLUX DISEASE WITHOUT 07/21/[address] [facility] Ot K58.9 IRRITABLE BOWEL SYNDROME WITHOUT DIARRHE 07/21/2018 NALLEN STEPHANIE LOVE Ot R50.9 FEVER, UNSPECIFIED 07/21/2018 BABAR STEPHANIE LOVE Ot Z79.01 CARE HOME (CURRENT) USE OF ANTICOAGULANT 07/21/2018 BABAR STEPHANIE LOVE Ot Z79.51 CARE HOME (CURRENT) USE OF INHALED STERO 07/21/2018 BABAR STEPHANIE LOVE Ot Z79.52 DRIVE THRU ORDER TAKER (CURRENT) USE OF SYSTEMIC STER 07/21/[address] [facility] Ot Z80.0 FAMILY HISTORY OF MALIGNANT NEOPLASM OF 07/21/2018 BABAR STEPHANIE LOVE Ot Z80.1 FAMILY HISTORY OF MALIG NEOPLASM OF TRAC 07/21/2018 BABAR STEPHANIE LOVE Ot Z82.49 FAMILY HX OF ISCHEM HEART DIS AND OTH DI 07/21/2018 BABAR STEPHANIE LOVE Ot Z86.010 PERSONAL HISTORY OF COLONIC POLYPS 07/21/2018 STEPHANIE ECKERT DO Ot Z86.711 PERSONAL HISTORY OF PULMONARY EMBOLISM 07/21/2018 BABAR DOSTEPHANIE Ot Z86.718 PERSONAL HISTORY OF OTHER VENOUS THROMBO 07/21/2018 BABAR STEPHANIE LOVE Ot Z87.01 PERSONAL HISTORY OF PNEUMONIA (RECURRENT 07/21/2018 BABAR STEPHANIE LOVE Ot Z87.09 PERSONAL HISTORY OF OTHER DISEASES OF TH 07/21/2018 BABAR STEPHANIE LOVE Ot Z87.19 PERSONAL HISTORY OF OTHER DISEASES OF TH 07/21/2018 BABAR STEPHANIE LOVE Ot Z87.442 PERSONAL HISTORY OF URINARY CALCULI 07/21/2018 BABAR STEPHANIE LOVE Ot Z87.448 PERSONAL HISTORY OF OTHER DISEASES OF UR 07/21/2018 BABAR STEPHANIE LOVE Ot Z87.891 PERSONAL HISTORY OF NICOTINE DEPENDENCE 07/21/2018 BABAR STEPHANIE LOVE Ot Z88.4 ALLERGY STATUS TO ANESTHETIC AGENT STATU 07/21/2018 STEPHANIE ECKERT DO Ot Z88.6 ALLERGY STATUS TO ANALGESIC AGENT STATUS 07/21/2018 BABAR STEPHANIE LOVE Ot Z88.7 ALLERGY STATUS TO SERUM AND VACCINE STAT 07/21/2018 BABAR STEPHANIE LOVE Ot Z88.8 ALLERGY STATUS TO OT DRUG/MEDS/BIOL SUB 07/21/2018 STEPHANIE ECKERT DO K Ot Z90.710 ACQUIRED ABSENCE OF BOTH CERVIX AND UTER 07/21/[address] [facility] Z90.89 ACQUIRED ABSENCE OF OTHER ORGANS 07/21/2018 BABAR STEPHANIE LOVE Ot Z91.040 LATEX ALLERGY STATUS 07/21/[address] [facility] Z91.041 RADIOGRAPHIC DYE ALLERGY STATUS 07/21/[address] [facility] Ot Z98.890 OTHER SPECIFIED POSTPROCEDURAL STATES 07/21/[address] [facility] Ot Z99.81 DEPENDENCE ON SUPPLEMENTAL OXYGEN 07/21/[address] [facility] Ot E78.00 PURE HYPERCHOLESTEROLEMIA, UNSPECIFIED 07/21/[address] [facility] Ot F41.9 ANXIETY DISORDER, UNSPECIFIED 07/21/[address] [facility] Ot I10 ESSENTIAL (PRIMARY) HYPERTENSION 07/21/[address] [facility] Ot I73.9 PERIPHERAL VASCULAR DISEASE, UNSPECIFIED 07/21/2018 NALLEN STEPHANIE LOVE Ot J10.1 FLU DUE TO [facility] IDENT INFLUENZA VIRUS W O 07/21/[address] [facility] Ot J44.1 CHRONIC OBSTRUCTIVE PULMONARY DISEASE W 07/21/2018 BABAR STEPHANIE LOVE Ot K21.9 GASTRO-ESOPHAGEAL REFLUX DISEASE WITHOUT 07/21/[address] [facility] Ot K58.9 IRRITABLE BOWEL SYNDROME WITHOUT DIARRHE 07/21/2018 NALLEN STEPHANIE LOVE Ot R50.9 FEVER, UNSPECIFIED 07/21/[address] [facility] Ot Z79.01 DRIVE THRU ORDER TAKER (CURRENT) USE OF ANTICOAGULANT 07/21/2018 NALLEN STEPHANIE OLVE Ot Z79.51 CARE HOME (CURRENT) USE OF INHALED STERO 07/21/2018 BABAR STEPHANIE LOVE Ot Z79.52 DRIVE THRU ORDER TAKER (CURRENT) USE OF SYSTEMIC STER 07/21/2018 BABAR STEPHANIE LOVE Ot Z80.0 FAMILY HISTORY OF MALIGNANT NEOPLASM OF 07/21/2018 BABAR STEPHANIE LOVE Ot Z80.1 FAMILY HISTORY OF MALIG NEOPLASM OF TRAC 07/21/2018 BABAR STEPHANIE LOVE Ot Z82.49 FAMILY HX OF ISCHEM HEART DIS AND OTH DI 07/21/2018 STEPHANIE ECKERT DO Ot Z86.010 PERSONAL HISTORY OF COLONIC POLYPS 07/21/2018 BABAR STEPHANIE LOVE Ot Z86.711 PERSONAL HISTORY OF PULMONARY EMBOLISM 07/21/2018 BABAR STEPHANIE Hathaway Ot Z86.718 PERSONAL HISTORY OF OTHER VENOUS THROMBO 07/21/2018 BABAR STEPHANIE Hathaway Ot Z87.01 PERSONAL HISTORY OF PNEUMONIA (RECURRENT 07/21/2018 BABAR STEPHANIE Rivas Ot Z87.09 PERSONAL HISTORY OF OTHER DISEASES OF TH 07/21/2018 BABAR STEPHANIE Hathaway Ot Z87.19 PERSONAL HISTORY OF OTHER DISEASES OF TH 07/21/2018 BABAR STEPHANIE Hathaway Ot Z87.442 PERSONAL HISTORY OF URINARY CALCULI 07/21/2018 BABAR STEPHANIE Rivas Ot Z87.448 PERSONAL HISTORY OF OTHER DISEASES OF UR 07/21/2018 BABAR DO STEPHANIE Rivas Ot Z87.891 PERSONAL HISTORY OF NICOTINE DEPENDENCE 07/21/[address] [facility] STEPHANIE Hathaway Ot Z88.4 ALLERGY STATUS TO ANESTHETIC AGENT STATU 07/21/2018 BABAR DO STEPHANIE K Ot Z88.6 ALLERGY STATUS TO ANALGESIC AGENT STATUS 07/21/[address] [facility] STEPHANIE Hathaway Ot Z88.7 ALLERGY STATUS TO SERUM AND VACCINE STAT 07/21/2018 BABAR DO STEPHANIE Hathaway Ot Z90.710 ACQUIRED ABSENCE OF BOTH CERVIX AND UTER 07/21/[address] [facility] STEPHANIE Hathaway Ot Z91.040 LATEX ALLERGY STATUS 07/21/[address] [facility] STEPHANIE Hathaway Ot Z91.041 RADIOGRAPHIC DYE ALLERGY STATUS 07/21/[address] 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 2 LUMBAGO 07/30/2018 LUCIANO ROSARIO, LEAH Jacome Ot 721. 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 00 CORON ATHEROSCLER NOS TYPE VESSEL, NATIV 07/30/2018 TERRI KIDD DO Ot 493. 20 CHRONIC OBSTRUCTIVE ASTHMA, NOS 07/30/2018 TERRI KIDD DO Ot 530. 81 ESOPHAGEAL REFLUX 07/30/2018 TERRI KIDD DO Ot 786. 09 RESPIRATORY ABNORM NEC 07/30/2018 LUCIANO ROSARIO, LEAH Jacome Ot 789. 06 ABDOMINAL PAIN, EPIGASTRIC 07/30/2018 AKIKO NAVARRO Ot 401.9 HYPERTENSION NOS 07/30/2018 AKIKO NAVARRO Ot 414.00 CORON ATHEROSCLER NOS TYPE VESSEL, NATIV 07/30/2018 AKIKO NAVARRO Ot 780.2 SYNCOPE AND COLLAPSE 07/30/2018 AKIKO NAVARRO Ot 786.50 CHEST PAIN NOS 07/30/2018 AKIKO NAVARRO Ot V12.55 PERSONAL HISTORY OF PULMONARY EMBOLISM 07/30/2018 AKIKO NAVARRO Ot 401.9 HYPERTENSION NOS 07/30/2018 AKIKO NAVARRO Ot 414.00 CORON ATHEROSCLER NOS TYPE VESSEL, NATIV 07/30/2018 AKIKO NAVARRO Ot 780.2 SYNCOPE AND COLLAPSE 07/30/2018 AKIKO NAVARRO Ot 785.1 PALPITATIONS 07/30/2018 AKIKO NAVARRO Ot 786.50 CHEST PAIN NOS 07/30/2018 AKIKO NAVARRO Ot V12.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 EMBOLISM 07/30/2018 AKIKO NAVARRO Ot V12.55 PERSONAL HISTORY OF PULMONARY EMBOLISM 07/30/2018 ADAM BARON DO Ot 285.9 ANEMIA NOS 07/30/2018 LEAH WOLF MD, Ot V76. 12 OTH SCREEN MAMMO-MALIGN NEOPLASM OF [place] 07/30/2018 LEAH WOLF MD Ot 719. 46 JOINT PAIN-L/LEG 07/30/2018 AKIKO NAVARRO Ot 272.4 HYPERLIPIDEMIA NEC/NOS 07/30/2018 LEAH WOLF MD, Ot V58. 62 ENCOUNT FOR LONG-TERM(CURRENT) USE OF AN 07/30/2018 LEAH WOLF MD, Ot V58. 83 ENCOUNTER FOR THERAPEUTIC DRUG MONITORIN 07/30/2018 TEDDY PHILIP MD Ot V72.84 EXAM PRE-OPERATIVE NOS 07/30/2018 LEAH WOLF MD Ot 789. 00 ABDOMINAL PAIN, UNSPECIFIED SITE 07/30/2018 LEAH WOLF MD Ot V76. 12 OTH SCREEN MAMMO-MALIGN NEOPLASM OF [place] 07/30/2018 LEAH WOLF MD Ot N64. 4 MASTODYNIA 07/30/2018 LEAH WOLF MD Ot R41. 3 OTHER AMNESIA 07/30/2018 LEAH WOLF MD Ot R91. 8 OTHER NONSPECIFIC ABNORMAL FINDING OF SLIM 07/30/2018 AKIKO NAVARRO Ot E78.0 PURE HYPERCHOLESTEROLEMIA 07/30/2018 AKIKO NAVARRO Ot I10 ESSENTIAL (PRIMARY) HYPERTENSION 07/30/2018 AKIKO NAVARRO Ot I25.10 [address] DIS[facility] [facility] CORONARY 07/30/2018 AKIKO NAVARRO Ot R55 SYNCOPE AND COLLAPSE 07/30/2018 LUCIANO ROSARIO, LEAH Jacome Ot Z12. 31 ENCNTR SCREEN MAMMOGRAM FOR MALIGNANT NE 07/30/2018 [place] AVIATION MANAGER Ot R60. 0 LOCALIZED EDEMA 07/30/2018 CHARITY ROSARIO FAC, ALI FACP CCDS Ot R00.2 PALPITATIONS 07/30/2018 CHARITY ROSARIO FACC, ALI FACP CCDS Ot R06.02 SHORTNESS OF BREATH 07/30/2018 [facility], ALI FACP CCDS Ot R07.89 OTHER CHEST PAIN 07/30/2018 CHARITY ROSARIO [facility], ALI FACP CCDS Ot 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 07/30/2018 CHARITY RENOC, ALI FACP CCDS Ot I10 ESSENTIAL (PRIMARY) HYPERTENSION 07/30/2018 CHARITY ROSARIO [facility], ALI FACP CCDS Ot I25.10 A[address]ART DISEASE OF [place] CORONARY 07/30/2018 CHARITY ROSARIO [facility], ALI FACP CCDS Ot I73.9 PERIPHERAL VASCULAR DISEASE, UNSPECIFIED 07/30/2018 CHARITY ROSARIO [facility], ALI FACP CCDS Ot J43.8 OTHER EMPHYSEMA 07/30/2018 CHARITY ROSARIO [facility], ALI FACP CCDS Ot M79.89 OTHER SPECIFIED SOFT TISSUE DISORDERS 07/30/2018 CHARITY RENO, ALI FACP CCDS Ot R06.02 SHORTNESS OF BREATH 07/30/2018 CHARITY ROSARIO [facility], ALI FACP CCDS Ot Z86.718 PERSONAL HISTORY OF OTHER VENOUS THROMBO 07/30/2018 CHARITY RENO, ALI FACP CCDS Ot 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 07/30/2018 CHARITY ROSARIO [facility], ALI FACP CCDS Ot I10 ESSENTIAL (PRIMARY) HYPERTENSION 07/30/2018 CHARITY ROSARIO [facility], ALI FACP CCDS Ot I25.10 ATHSCL HEART DISEASE OF [place] CORONARY 07/30/2018 CHARITY RENO, ALI FACP CCDS Ot I73.9 PERIPHERAL VASCULAR DISEASE, UNSPECIFIED 07/30/2018 CHARITY RENO, ALI FACP CCDS Ot R06.02 SHORTNESS OF BREATH 07/30/2018 CHARITY RENO, ALI FACP CCDS Ot Z86.718 PERSONAL HISTORY OF OTHER VENOUS THROMBO 07/30/2018 LEAH WOLF MD, Ot K62. 5 HEMORRHAGE OF ANUS AND RECTUM 07/30/2018 LEAH WOLF MD, Ot R91. 8 OTHER NONSPECIFIC ABNORMAL FINDING OF SLIM 07/30/2018 LEAH WOLF MD, Ot Z12. 31 ENCNTR SCREEN MAMMOGRAM FOR MALIGNANT NE 07/30/2018 LEAH WOLF MD, Ot Z51. 81 ENCOUNTER FOR THERAPEUTIC DRUG LEVEL MON 07/30/2018 LEAH WOLF MD, Ot Z79. 01 CARE HOME (CURRENT) USE OF ANTICOAGULANT 07/30/2018 LEAH WOLF MD, Ot Z86.718 PERSONAL HISTORY OF OTHER VENOUS THROMBO 07/30/2018 LEAH WOLF MD, Ot N64. 89 OTHER SPECIFIED DISORDERS OF BREAST 07/30/2018 HOWARD GROVES MD Ot J32 .9 CHRONIC SINUSITIS, UNSPECIFIED 07/30/2018 HOWARD GROVES MD, Ot J33 .9 NASAL POLYP, UNSPECIFIED 07/30/2018 LEAH WOLF MD, Ot R91. 1 SOLITARY PULMONARY NODULE 07/30/2018 LEAH WOLF MD, Ot N64. 4 MASTODYNIA 07/30/2018 LEAH WOLF MD, Ot R10. 31 RIGHT LOWER QUADRANT PAIN 07/30/2018 LEAH WOLF MD, Ot Z95.828 PRESENCE OF OTHER VASCULAR IMPLANTS AND 07/30/2018 LEAH WOLF MD, Ot J33. 9 NASAL POLYP, UNSPECIFIED 07/30/2018 LEAH WOLF MD, Ot Z01.810 ENCOUNTER FOR PREPROCEDURAL CARDIOVASCUL 07/30/2018 TEDDY PHILIP MD, Ot K57.30 DVRTCLOS OF LG INT W/O PERFORATION OR AB 07/30/2018 TEDDY PHILIP MD Ot N20.2 CALCULUS OF KIDNEY WITH CALCULUS OF URET 07/30/2018 TEDDY PHILIP MD, Ot R59.0 LOCALIZED ENLARGED LYMPH NODES 07/30/2018 [place] Ot M17. 12 UNILATERAL PRIMARY OSTEOARTHRITIS, LEFT 07/30/2018 [place] Ot M23.262 DERANGEMENT OF LAT MENSC DUE TO OLD TEAR 07/30/2018 RONAN ROSARIO, ARIES Bass Ot Z87.4 42 PERSONAL HISTORY OF URINARY CALCULI 07/30/2018 HOWARD SALDANA MD Ot I70.[address] [facility] ARTERIES OF LEFT LEG W ULC 07/30/2018 HOWARD SALDANA MD Ot I87.321 CHRONIC VENOUS HYPERTENSION W INFLAMMATI 07/30/2018 HOWARD SALDANA MD Ot I87.332 CHRONIC VENOUS HTN W ULCER AND INFLAMMAT 07/30/2018 HOWARD SALDANA MD Ot I89 .0 LYMPHEDEMA, NOT ELSEWHERE CLASSIFIED 07/30/2018 HOWARD SALDANA MD Ot L97.222 NON-PRESSURE CHRONIC ULCER OF LEFT CALF 07/30/2018 HOWARD SALDANA MD, Ot I70.[address] [facility] ARTERIES OF LEFT LEG W C 07/30/2018 HOWARD SALDANA MD, Ot I87.321 CHRONIC VENOUS HYPERTENSION W INFLAMMATI 07/30/2018 HOWARD SALDANA MD Ot I87.332 CHRONIC VENOUS HTN W ULCER AND INFLAMMAT 07/30/2018 HOWARD SALDANA MD Ot I89 .0 LYMPHEDEMA, NOT ELSEWHERE CLASSIFIED 07/30/2018 HOWARD SALDANA MD Ot L97.222 NON-PRESSURE CHRONIC ULCER OF LEFT CALF 07/30/2018 HOWARD SALDANA MD Ot I87.321 CHRONIC VENOUS HYPERTENSION W INFLAMMATI 07/30/2018 HOWARD SALDANA MD Ot I87.332 CHRONIC VENOUS HTN W ULCER AND INFLAMMAT 07/30/2018 HOWARD SALDANA MD Ot I89 .0 LYMPHEDEMA, NOT ELSEWHERE CLASSIFIED 07/30/2018 HOWARD SALDANA MD Ot L97.222 NON-PRESSURE CHRONIC ULCER OF LEFT CALF 07/30/2018 HOWARD SALDANA MD Ot I87.321 CHRONIC VENOUS HYPERTENSION W INFLAMMATI 07/30/2018 HOWARD SALDANA MD Ot I87.332 CHRONIC VENOUS HTN W ULCER AND INFLAMMAT 07/30/2018 HOWARD SALDANA MD Ot I89 .0 LYMPHEDEMA, NOT ELSEWHERE CLASSIFIED 07/30/2018 HOWARD SALDANA MD Ot L97.222 NON-PRESSURE CHRONIC ULCER OF LEFT CALF 07/30/2018 HOWARD SALDANA MD Ot I87.321 CHRONIC VENOUS HYPERTENSION W INFLAMMATI 07/30/2018 HOWARD SALDANA MD Ot I87.332 CHRONIC VENOUS HTN W ULCER AND INFLAMMAT 07/30/2018 HOWARD SALDANA MD Ot I89 .0 LYMPHEDEMA, NOT ELSEWHERE CLASSIFIED 07/30/2018 HOWARD SALDANA MD, Ot L97.222 NON-PRESSURE CHRONIC ULCER OF LEFT CALF 07/30/2018 LUCIANO ROSARIO, LEAH Jacome Ot J44. 1 CHRONIC OBSTRUCTIVE PULMONARY DISEASE W 07/30/2018 HOWARD SALDANA MD Ot I87.332 CHRONIC VENOUS HTN W ULCER AND INFLAMMAT 07/30/2018 HOWARD SALDANA MD, Ot J44 .9 CHRONIC OBSTRUCTIVE PULMONARY DISEASE, U 07/30/2018 HOWARD SALDANA MD, Ot L97.222 NON-PRESSURE CHRONIC ULCER OF LEFT CALF 07/30/2018 HOWARD SALDANA MD Ot I87.321 CHRONIC VENOUS HYPERTENSION W INFLAMMATI 07/30/2018 HOWARD SALDANA MD Ot I87.332 CHRONIC VENOUS HTN W ULCER AND INFLAMMAT 07/30/2018 HOWARD SALDANA MD, Ot J44 .9 CHRONIC OBSTRUCTIVE PULMONARY DISEASE, U 07/30/2018 HOWARD SALDANA MD, Ot L97.222 NON-PRESSURE CHRONIC ULCER OF LEFT CALF 07/30/2018 HOWARD SALDANA MD, Ot I87.332 CHRONIC VENOUS HTN W ULCER AND INFLAMMAT 07/30/2018 HOWARD SALDANA MD, Ot J44 .9 CHRONIC OBSTRUCTIVE PULMONARY DISEASE, U 07/30/2018 HOWARD SALDANA MD, Ot L97.222 NON-PRESSURE CHRONIC ULCER OF LEFT CALF 07/30/2018 ANNIKA HOLLEY MD Ot I87.321 CHRONIC VENOUS HYPERTENSION W INFLAMMATI 07/30/2018 ANNIKA HOLLEY MD Ot I87.332 CHRONIC VENOUS HTN W ULCER AND INFLAMMAT 07/30/2018 ANNIKA HOLLEY MD, Ot J44.9 CHRONIC OBSTRUCTIVE PULMONARY DISEASE, U 07/30/2018 ANNIKA HOLLEY MD Ot L97.822 NON- PRS CHRONIC ULCER OTH PRT L LOW LEG 07/30/2018 BARRON VALLE APRN Ot I87.332 CHRONIC VENOUS HTN W ULCER AND INFLAMMAT 07/30/2018 BARRON VALLE APRN Ot J44.9 CHRONIC OBSTRUCTIVE PULMONARY DISEASE, U 07/30/2018 BARRON VALLE APRN Ot L97.222 NON-PRESSURE CHRONIC ULCER OF LEFT CALF 07/30/2018 BARRON VALLE APRN Ot I87.332 CHRONIC VENOUS HTN W ULCER AND INFLAMMAT 07/30/2018 BARRON VALLE APRN Ot L97.222 NON-PRESSURE CHRONIC ULCER OF LEFT CALF 07/30/2018 ANNIKA HOLLEY MD Ot I87.321 CHRONIC VENOUS HYPERTENSION W INFLAMMATI 07/30/2018 ANNIKA HOLLEY MD Ot I87.332 CHRONIC VENOUS HTN W ULCER AND INFLAMMAT 07/30/2018 ANNIKA HOLLEY MD Ot J44.9 CHRONIC OBSTRUCTIVE PULMONARY DISEASE, U 07/30/2018 ANNIKA HOLLEY MD Ot L97.822 NON- PRS CHRONIC ULCER OTH PRT L LOW LEG 07/30/2018 ANNIKA HOLLEY MD Ot I87.321 CHRONIC VENOUS HYPERTENSION W INFLAMMATI 07/30/2018 ANNIKA HOLLEY MD Ot I87.332 CHRONIC VENOUS HTN W ULCER AND INFLAMMAT 07/30/2018 ANNIKA HOLLEY MD Ot J44.9 CHRONIC OBSTRUCTIVE PULMONARY DISEASE, U 07/30/2018 ANNIKA HOLLEY MD Ot L97.822 NON- PRS CHRONIC ULCER OTH PRT L LOW LEG 07/30/2018 ANNIKA HOLLEY MD Ot I87.321 CHRONIC VENOUS HYPERTENSION W INFLAMMATI 07/30/2018 ANNIKA HOLLEY MD Ot I87.332 CHRONIC VENOUS HTN W ULCER AND INFLAMMAT 07/30/2018 ANNIKA HOLLEY MD, Ot J44.9 CHRONIC OBSTRUCTIVE PULMONARY DISEASE, U 07/30/2018 HOWARD SALDANA MD Ot I87.332 CHRONIC VENOUS HTN W ULCER AND INFLAMMAT 07/30/2018 HOWARD SALDANA MD Ot L97.222 NON-PRESSURE CHRONIC ULCER OF LEFT CALF 07/30/2018 LEAH WOLF MD Ot R05 COUGH 07/30/2018 LEAH WOLF MD Ot R06. 02 SHORTNESS OF BREATH 07/30/2018 LEAH WOLF MD Ot R91. 8 OTHER NONSPECIFIC ABNORMAL FINDING OF SLIM 08/20/2018 LEAH WOLF MD Ot Z12. 31 ENCNTR SCREEN MAMMOGRAM FOR MALIGNANT NE 08/20/2018 TEDDY PHILIP MD Ot Z01.81 8 ENCOUNTER FOR OTHER PREPROCEDURAL EXAMIN 08/24/2018 TEDDY PHILIP MD Ot 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 08/24/2018 TEDDY PHILIP MD Ot E78.00 PURE HYPERCHOLESTEROLEMIA, UNSPECIFIED 08/24/2018 TEDDY PHILIP MD Ot I10 ESSENTIAL (PRIMARY) HYPERTENSION 08/24/2018 TEDDY PHILIP MD Ot I73.9 PERIPHERAL VASCULAR DISEASE, UNSPECIFIED 08/24/2018 TEDDY PHILIP MD, Ot J44.9 CHRONIC OBSTRUCTIVE PULMONARY DISEASE, U 08/24/2018 TEDDY PHILIP MD, Ot J45.90 1 UNSPECIFIED ASTHMA WITH (ACUTE) EXACERBA 08/24/2018 TEDDY PHILIP MD, Ot K21.9 GASTRO-ESOPHAGEAL REFLUX DISEASE WITHOUT 08/24/2018 TEDDY PHILIP MD, Ot K43.2 INCISIONAL HERNIA WITHOUT OBSTRUCTION OR 08/24/2018 TEDDY PHILIP MD, Ot K44.9 DIAPHRAGMATIC HERNIA WITHOUT OBSTRUCTION 08/24/2018 TEDDY PHILIP MD, Ot K52.9 NONINFECTIVE GASTROENTERITIS AND COLITIS 08/24/2018 TEDDY PHILIP MD, Ot K59.09 OTHER CONSTIPATION 08/24/2018 TEDDY PHILIP MD, Ot K75.9 INFLAMMATORY LIVER DISEASE, UNSPECIFIED 08/24/2018 TEDDY PHILIP MD, Ot R60.9 EDEMA, UNSPECIFIED 08/24/2018 TEDDY PHILIP MD, Ot R73.03 PREDIABETES 08/24/2018 TEDDY PHILIP MD, Ot Z79.01 DRIVE THRU ORDER TAKER (CURRENT) USE OF ANTICOAGULANT 08/24/2018 TEDDY PHILIP MD Ot Z79.[address] THRU ORDER TAKER (CURRENT) DRUG THERAPY 08/24/2018 TEDDY PHILIP MD, Ot Z86.71 1 PERSONAL HISTORY OF PULMONARY EMBOLISM 08/24/2018 TEDDY PHILIP MD Ot Z86.71 8 PERSONAL HISTORY OF OTHER VENOUS THROMBO 08/24/2018 TEDDY PHILIP MD Ot Z87.89 1 PERSONAL HISTORY OF NICOTINE DEPENDENCE 08/27/2018 STACY HOLGUIN DO Ot 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 08/27/2018 STACY HOLGUIN DO Ot E78.00 PURE HYPERCHOLESTEROLEMIA, UNSPECIFIED 08/27/2018 STACY HOLGUIN DO Ot I10 ESSENTIAL (PRIMARY) HYPERTENSION 08/27/2018 STACY HOLGUIN DO Ot I73.9 PERIPHERAL VASCULAR DISEASE, UNSPECIFIED 08/27/2018 STACY HOLGUIN DO, Ot J44.1 CHRONIC OBSTRUCTIVE PULMONARY DISEASE W 08/27/2018 STACY HOLGUIN DO Ot K21.9 GASTRO-ESOPHAGEAL REFLUX DISEASE WITHOUT 08/27/2018 STACY HOLGUIN DO Ot K44.9 DIAPHRAGMATIC HERNIA WITHOUT OBSTRUCTION 08/27/2018 STACY HOLGUIN DO Ot K59.09 OTHER CONSTIPATION 08/27/2018 AGATHA HOLGUIN DOI Ot R60.9 EDEMA, UNSPECIFIED 08/27/2018 STACY HOLGUIN DO Ot R73.03 PREDIABETES 08/27/2018 TSACY HOLGUIN DO Ot Z79.01 DRIVE THRU ORDER TAKER (CURRENT) USE OF ANTICOAGULANT 08/27/2018 STACY HOLGUIN DO Ot Z79.89 9 OTHER CARE HOME (CURRENT) DRUG THERAPY 08/27/2018 STACY HOLGUIN DO Ot Z86.71 1 PERSONAL HISTORY OF PULMONARY EMBOLISM 08/27/2018 AGATHA HOLGUIN DOI Ot Z86.71 8 PERSONAL HISTORY OF OTHER VENOUS THROMBO 08/27/2018 AGATHA HOLGUIN DOI Ot Z87.89 1 PERSONAL HISTORY OF NICOTINE DEPENDENCE 08/27/2018 STACY HOLGUIN DO Ot Z91.04 1 RADIOGRAPHIC DYE ALLERGY STATUS 08/27/2018 AGATHA HOLGUIN DOI Ot Z95.82 8 PRESENCE OF OTHER VASCULAR IMPLANTS AND 08/27/2018 AGATHA HOLGUIN DOI Ot Z98.89 0 OTHER SPECIFIED POSTPROCEDURAL STATES 08/28/2018 STACY HOLGUIN DO Ot 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 08/28/2018 AGATHA HOLGUIN DOI Ot E78.00 PURE HYPERCHOLESTEROLEMIA, UNSPECIFIED 08/28/2018 AGATHA HOLGUIN DOI Ot I10 ESSENTIAL (PRIMARY) HYPERTENSION 08/28/2018 STACY HOLGUIN DO Ot I73.9 PERIPHERAL VASCULAR DISEASE, UNSPECIFIED 08/28/2018 AGATHA HOLGUIN DOI Ot J44.1 CHRONIC OBSTRUCTIVE PULMONARY DISEASE W 08/28/2018 STACY HOLGUIN DO Ot K21.9 GASTRO-ESOPHAGEAL REFLUX DISEASE WITHOUT 08/28/2018 AGATHA HOLGUIN DOI Ot K44.9 DIAPHRAGMATIC HERNIA WITHOUT OBSTRUCTION 08/28/2018 AGATHA HOLGUIN DOI Ot K59.09 OTHER CONSTIPATION 08/28/2018 AGATHA HOLGUIN DOI Ot R60.9 EDEMA, UNSPECIFIED 08/28/2018 STACY HOLGUIN DO Ot R73.03 PREDIABETES 08/28/2018 AGATHA HOLGUIN DOI Ot Z79.01 CARE HOME (CURRENT) USE OF ANTICOAGULANT 08/28/2018 STACY HOLGUIN DO Ot Z79.89 9 OTHER CARE HOME (CURRENT) DRUG THERAPY 08/28/2018 STACY HOLGUIN DO Ot Z86.71 1 PERSONAL HISTORY OF PULMONARY EMBOLISM 08/28/2018 STACY HOLGUIN DO Ot Z86.71 8 PERSONAL HISTORY OF OTHER VENOUS THROMBO 08/28/2018 STACY HOLGUIN DO Ot Z87.89 1 PERSONAL HISTORY OF NICOTINE DEPENDENCE 08/28/2018 STACY HOLGUIN DO Ot Z91.04 1 RADIOGRAPHIC DYE ALLERGY STATUS 08/28/2018 AGATHA HOLGUIN DOI Ot Z95.82 8 PRESENCE OF OTHER VASCULAR IMPLANTS AND 08/28/2018 EZIO LOVE STACY Ot Z98.89 0 OTHER SPECIFIED POSTPROCEDURAL STATES 08/28/2018 EZIO LOVE STACY Ot 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 08/28/2018 EZIO LOVE STACY Ot E78.00 PURE HYPERCHOLESTEROLEMIA, UNSPECIFIED 08/28/2018 EZIO LOVE STACY Ot I10 ESSENTIAL (PRIMARY) HYPERTENSION 08/28/2018 EZIO LOVE STACY Ot I73.9 PERIPHERAL VASCULAR DISEASE, UNSPECIFIED 08/28/2018 EZIO LOVE STACY Ot J44.1 CHRONIC OBSTRUCTIVE PULMONARY DISEASE W 08/28/2018 EZIO LOVE STACY Ot K21.9 GASTRO-ESOPHAGEAL REFLUX DISEASE WITHOUT 08/28/2018 EZIO LOVE STACY Ot K44.9 DIAPHRAGMATIC HERNIA WITHOUT OBSTRUCTION 08/28/2018 EZIO LOVE STACY Ot K59.09 OTHER CONSTIPATION 08/28/2018 EZIO LOVE STACY Ot R60.9 EDEMA, UNSPECIFIED 08/28/2018 EZIO LOVE STCAY Ot R73.03 PREDIABETES 08/28/2018 EZIO LOVE STACY Ot Z79.01 CARE HOME (CURRENT) USE OF ANTICOAGULANT 08/28/2018 STACY HOLGUIN DO Ot Z79.89 9 OTHER CARE HOME (CURRENT) DRUG THERAPY 08/28/2018 STACY HOLGUIN DO Ot Z86.71 1 PERSONAL HISTORY OF PULMONARY EMBOLISM 08/28/2018 STACY HOLGUIN DO Ot Z86.71 8 PERSONAL HISTORY OF OTHER VENOUS THROMBO 08/28/2018 STACY HOLGUIN DO Ot Z87.89 1 PERSONAL HISTORY OF NICOTINE DEPENDENCE 08/28/2018 STACY HOLGUIN DO Ot Z91.04 1 RADIOGRAPHIC DYE ALLERGY STATUS 08/28/2018 EZIO LOVE STACY Ot Z95.82 8 PRESENCE OF OTHER VASCULAR IMPLANTS AND 08/28/2018 EZIO LOVE STACY Ot Z98.89 0 OTHER SPECIFIED POSTPROCEDURAL STATES 09/12/2018 JASON GERARDO Ot E78.00 PURE HYPERCHOLESTEROLEMIA, UNSPECIFIED 09/12/2018 JASON GERARDO Ot F41.9 ANXIETY DISORDER, UNSPECIFIED 09/12/2018 JASON GERARDO Ot G62.9 POLYNEUROPATHY, UNSPECIFIED 09/12/2018 JASON GERARDO Ot I10 ESSENTIAL (PRIMARY) HYPERTENSION 09/12/2018 JASON GERARDO Ot J44.9 CHRONIC OBSTRUCTIVE PULMONARY DISEASE, U 09/12/2018 JASON GERARDO Ot K21.9 GASTRO-ESOPHAGEAL REFLUX DISEASE WITHOUT 09/12/2018 JASON GERARDO Ot K58.9 IRRITABLE BOWEL SYNDROME WITHOUT DIARRHE 09/12/2018 JASON GERARDO Ot L03.90 CELLULITIS, UNSPECIFIED 09/12/2018 JASON GERARDO Ot R50.9 FEVER, UNSPECIFIED 09/12/2018 JASON GERARDO Ot T81.40XA INFECTION FOLLOWING A PROCEDURE, UNSPECI 09/12/2018 JASON GERARDO Ot Z79.52 CARE HOME (CURRENT) USE OF SYSTEMIC STER 09/12/2018 JASON GERARDO Ot Z80.0 FAMILY HISTORY OF MALIGNANT NEOPLASM OF 09/12/2018 JASON GERARDO Ot Z80.1 FAMILY HISTORY OF MALIG NEOPLASM OF TRAC 09/12/2018 JASON GERARDO Ot Z82.49 FAMILY HX OF ISCHEM HEART DIS AND OTH DI 09/12/2018 JASON GERARDO Ot Z86.010 PERSONAL HISTORY OF COLONIC POLYPS 09/12/2018 JASON GERARDO Ot Z86.711 PERSONAL HISTORY OF PULMONARY EMBOLISM 09/12/2018 JASON GERARDO Ot Z86.718 PERSONAL HISTORY OF OTHER VENOUS THROMBO 09/12/2018 JASON GERARDO Ot Z87.01 PERSONAL HISTORY OF PNEUMONIA (RECURRENT 09/12/2018 JASON GERARDO Ot Z87.19 PERSONAL HISTORY OF OTHER DISEASES OF TH 09/12/2018 JASON GERARDO Ot Z87.440 PERSONAL HISTORY OF URINARY (TRACT) INFE 09/12/2018 JASON GERARDO Ot Z87.442 PERSONAL HISTORY OF URINARY CALCULI 09/12/2018 JASON GERARDO Ot Z87.891 PERSONAL HISTORY OF NICOTINE DEPENDENCE 09/12/2018 JASON GERARDO Ot Z88.4 ALLERGY STATUS TO ANESTHETIC AGENT STATU 09/12/2018 JASON GERARDO Ot Z88.6 ALLERGY STATUS TO ANALGESIC AGENT STATUS 09/12/2018 JASON GERARDO Ot Z88.7 ALLERGY STATUS TO SERUM AND VACCINE STAT 09/12/2018 JASON GERARDO Ot Z88.8 ALLERGY STATUS TO OTH DRUG/MEDS/BIOL SUB 09/12/2018 JASON GERARDO Ot Z90.710 ACQUIRED ABSENCE OF BOTH CERVIX AND UTER 09/12/2018 JASON GERARDO Ot Z90.89 ACQUIRED ABSENCE OF OTHER ORGANS 09/12/2018 JASON GERARDO Ot Z91.040 LATEX ALLERGY STATUS 09/12/2018 JASON GERARDO Ot Z91.041 RADIOGRAPHIC DYE ALLERGY STATUS 09/12/2018 JASON GERARDO Ot Z98.890 OTHER SPECIFIED POSTPROCEDURAL STATES 09/16/2018 JASON GERARDO Ot E78.00 PURE HYPERCHOLESTEROLEMIA, UNSPECIFIED 09/16/2018 JASON GERARDO Ot F41.9 ANXIETY DISORDER, UNSPECIFIED 09/16/2018 JASON GERARDO Ot G62.9 POLYNEUROPATHY, UNSPECIFIED 09/16/2018 JASON GERRADO Ot I10 ESSENTIAL (PRIMARY) HYPERTENSION 09/16/2018 JASON GERARDO Ot J44.9 CHRONIC OBSTRUCTIVE PULMONARY DISEASE, U 09/16/2018 JASON GERARDO Ot K21.9 GASTRO-ESOPHAGEAL REFLUX DISEASE WITHOUT 09/16/2018 JASON GERARDO Ot K58.9 IRRITABLE BOWEL SYNDROME WITHOUT DIARRHE 09/16/2018 JASON GERARDO Ot L03.90 CELLULITIS, UNSPECIFIED 09/16/2018 JASON GERARDO Ot R50.9 FEVER, UNSPECIFIED 09/16/2018 JASON GERARDO Ot T81.40XA INFECTION FOLLOWING A PROCEDURE, UNSPECI 09/16/2018 JASON GERARDO Ot Z79.52 CARE HOME (CURRENT) USE OF SYSTEMIC STER 09/16/2018 JASON GERARDO Ot Z80.0 FAMILY HISTORY OF MALIGNANT NEOPLASM OF 09/16/2018 JASON GERARDO Ot Z80.1 FAMILY HISTORY OF MALIG NEOPLASM OF TRAC 09/16/2018 JASON GERARDO Ot Z82.49 FAMILY HX OF ISCHEM HEART DIS AND OTH DI 09/16/2018 JASON GERARDO Ot Z86.010 PERSONAL HISTORY OF COLONIC POLYPS 09/16/2018 JASON GERARDO Ot Z86.711 PERSONAL HISTORY OF PULMONARY EMBOLISM 09/16/2018 JASON GERARDO Ot Z86.718 PERSONAL HISTORY OF OTHER VENOUS THROMBO 09/16/2018 JASON GERARDO Ot Z87.01 PERSONAL HISTORY OF PNEUMONIA (RECURRENT 09/16/2018 JASON GERARDO Ot Z87.19 PERSONAL HISTORY OF OTHER DISEASES OF TH 09/16/2018 JASON GERARDO Ot Z87.440 PERSONAL HISTORY OF URINARY (TRACT) INFE 09/16/2018 JASON GERARDO Ot Z87.442 PERSONAL HISTORY OF URINARY CALCULI 09/16/2018 JASON GERARDO Ot Z87.891 PERSONAL HISTORY OF NICOTINE DEPENDENCE 09/16/2018 JASON GERARDO Ot Z88.4 ALLERGY STATUS TO ANESTHETIC AGENT STATU 09/16/2018 JASON GERARDO Ot Z88.6 ALLERGY STATUS TO ANALGESIC AGENT STATUS 09/16/2018 JASON GERARDO Ot Z88.7 ALLERGY STATUS TO SERUM AND VACCINE STAT 09/16/2018 JASON GERARDO Ot Z88.8 ALLERGY STATUS TO OTH DRUG/MEDS/BIOL SUB 09/16/2018 JASON GERARDO Ot Z90.710 ACQUIRED ABSENCE OF BOTH CERVIX AND UTER 09/16/2018 JASON GERARDO Ot Z90.89 ACQUIRED ABSENCE OF OTHER ORGANS 09/16/2018 JASON GERARDO Ot Z91.040 LATEX ALLERGY STATUS 09/16/2018 JASON GERARDO Ot Z91.041 RADIOGRAPHIC DYE ALLERGY STATUS 09/16/2018 JASON GERARDO Ot Z98.890 OTHER SPECIFIED POSTPROCEDURAL STATES 11/28/2018 KAMRAN LINDQUIST APRN Ot E78.00 PURE HYPERCHOLESTEROLEMIA, UNSPECIFIED 11/28/2018 KAMRAN LINDQUIST APRN Ot F41 .9 ANXIETY DISORDER, UNSPECIFIED 11/28/2018 KAMRAN LINDQUIST APRN Ot G62 .9 POLYNEUROPATHY, UNSPECIFIED 11/28/2018 KAMRAN LINDQUIST APRN Ot I10 ESSENTIAL (PRIMARY) HYPERTENSION 11/28/2018 KAMRAN LINDQUIST APRN Ot I73 .9 PERIPHERAL VASCULAR DISEASE, UNSPECIFIED 11/28/2018 KAMRAN LINDQUIST APRN Ot J44 .9 CHRONIC OBSTRUCTIVE PULMONARY DISEASE, U 11/28/2018 KAMRAN LINDQUIST APRN Ot K21 .9 GASTRO-ESOPHAGEAL REFLUX DISEASE WITHOUT 11/28/2018 KAMRAN LINDQUIST APRN Ot K58 .9 IRRITABLE BOWEL SYNDROME WITHOUT DIARRHE 11/28/2018 KAMRAN LINDQUIST APRN Ot R06.02 SHORTNESS OF BREATH 11/28/2018 KAMRAN LINDQUIST APRN Ot Z80 .0 FAMILY HISTORY OF MALIGNANT NEOPLASM OF 11/28/2018 KAMRAN LINDQUIST APRN Ot Z80 .1 FAMILY HISTORY OF MALIG NEOPLASM OF TRAC 11/28/2018 KAMRAN LINDQUIST APRN Ot Z82.49 FAMILY HX OF ISCHEM HEART DIS AND OTH DI 11/28/2018 KAMRAN LINDQUIST APRN Ot Z86.010 PERSONAL HISTORY OF COLONIC POLYPS 11/28/2018 KAMRAN LINDQUIST APRN Ot Z86.711 PERSONAL HISTORY OF PULMONARY EMBOLISM 11/28/2018 KAMRAN LINDQUIST APRN Ot Z86.718 PERSONAL HISTORY OF OTHER VENOUS THROMBO 11/28/2018 KAMRAN LINDQUIST APRN Ot Z87.01 PERSONAL HISTORY OF PNEUMONIA (RECURRENT 11/28/2018 KAMRAN LINDQUIST APRN Ot Z87.442 PERSONAL HISTORY OF URINARY CALCULI 11/28/2018 KAMRAN LINDQUIST APRN Ot Z87.891 PERSONAL HISTORY OF NICOTINE DEPENDENCE 11/28/2018 KAMRAN LINDQUIST APRN Ot Z88 .6 ALLERGY STATUS TO ANALGESIC AGENT STATUS 11/28/2018 KAMRAN LINDQUIST APRN Ot Z88 .7 ALLERGY STATUS TO SERUM AND VACCINE STAT 11/28/2018 KAMRAN LINDQUIST APRN Ot Z88 .8 ALLERGY STATUS TO OT DRUG/MEDS/BIOL SUB 11/28/2018 KAMRAN LINDQUIST APRN Ot Z90.710 ACQUIRED ABSENCE OF BOTH CERVIX AND UTER 11/28/2018 KAMRAN LINDQUIST APRN Ot Z90.89 ACQUIRED ABSENCE OF OTHER ORGANS 11/28/2018 KAMRAN LINDQUIST APRN Ot Z91.040 LATEX ALLERGY STATUS 11/28/2018 KAMRAN LINDQUIST APRN Ot Z98.890 OTHER SPECIFIED POSTPROCEDURAL STATES 11/28/2018 KAMRAN LINDQUIST APRN Ot Z99.81 DEPENDENCE ON SUPPLEMENTAL OXYGEN 12/13/2018 KAMRAN LINDQUIST APRN Ot E78.00 PURE HYPERCHOLESTEROLEMIA, UNSPECIFIED 12/13/2018 KAMRAN LINDQUIST APRN Ot F41 .9 ANXIETY DISORDER, UNSPECIFIED 12/13/2018 KAMRAN LINDQUIST APRN Ot G62 .9 POLYNEUROPATHY, UNSPECIFIED 12/13/2018 KAMRAN LINDQUIST APRN Ot I10 ESSENTIAL (PRIMARY) HYPERTENSION 12/13/2018 KAMRAN LINDQUIST APRN Ot J44 .9 CHRONIC OBSTRUCTIVE PULMONARY DISEASE, U 12/13/2018 KAMRAN LINDQUIST APRN Ot K21 .9 GASTRO-ESOPHAGEAL REFLUX DISEASE WITHOUT 12/13/2018 KAMRAN LINDQUIST APRN Ot K58 .9 IRRITABLE BOWEL SYNDROME WITHOUT DIARRHE 12/13/2018 KAMRAN LINDQUIST APRN Ot R07.89 OTHER CHEST PAIN 12/13/2018 KAMRAN LINDQUIST APRN Ot Z80 .0 FAMILY HISTORY OF MALIGNANT NEOPLASM OF 12/13/2018 KAMRAN LINDQUIST APRN Ot Z80 .1 FAMILY HISTORY OF MALIG NEOPLASM OF TRAC 12/13/2018 KAMRAN LINDQUIST APRN Ot Z80 .8 FAMILY HISTORY OF MALIGNANT NEOPLASM OF 12/13/2018 KAMRAN LINDQUIST APRN Ot Z82.49 FAMILY HX OF ISCHEM HEART DIS AND OTH DI 12/13/2018 KAMRAN LINDQUIST APRN Ot Z86.711 PERSONAL HISTORY OF PULMONARY EMBOLISM 12/13/2018 KAMRAN LINDQUIST APRN Ot Z86.718 PERSONAL HISTORY OF OTHER VENOUS THROMBO 12/13/2018 KAMRAN LINDQUIST APRN Ot Z87.442 PERSONAL HISTORY OF URINARY CALCULI 12/13/2018 KAMRAN LINDQUIST APRN Ot Z87.891 PERSONAL HISTORY OF NICOTINE DEPENDENCE 12/13/2018 KAMRAN LINDQUIST APRN Ot Z88 .6 ALLERGY STATUS TO ANALGESIC AGENT STATUS 12/13/2018 KAMRAN LINDQUIST APRN Ot Z88 .7 ALLERGY STATUS TO SERUM AND VACCINE STAT 12/13/2018 KAMRAN LINDQUIST APRN Ot Z88 .8 ALLERGY STATUS TO OT DRUG/MEDS/BIOL SUB 12/13/2018 KAMRAN LINDQUIST APRN Ot Z90.710 ACQUIRED ABSENCE OF BOTH CERVIX AND UTER 12/13/2018 KAMRAN LINDQUIST APRN Ot Z90.89 ACQUIRED ABSENCE OF OTHER ORGANS 12/13/2018 KAMRAN LINDQUIST APRN Ot Z91.040 LATEX ALLERGY STATUS 12/13/2018 KAMRAN LINDQUIST APRN Ot Z91.041 RADIOGRAPHIC DYE ALLERGY STATUS 12/16/2018 KAMRAN LINDQUIST APRN Ot E78.00 PURE HYPERCHOLESTEROLEMIA, UNSPECIFIED 12/16/2018 KAMRAN LINDQUIST APRN Ot F41 .9 ANXIETY DISORDER, UNSPECIFIED 12/16/2018 KAMRAN LINDQUIST APRN Ot G62 .9 POLYNEUROPATHY, UNSPECIFIED 12/16/2018 KAMRAN LINDQUIST APRN Ot I10 ESSENTIAL (PRIMARY) HYPERTENSION 12/16/2018 KAMRAN LINDQUIST APRN Ot J44 .9 CHRONIC OBSTRUCTIVE PULMONARY DISEASE, U 12/16/2018 KAMRAN LINDQUIST APRN Ot K21 .9 GASTRO-ESOPHAGEAL REFLUX DISEASE WITHOUT 12/16/2018 KAMRAN LINDQUIST APRN Ot K58 .9 IRRITABLE BOWEL SYNDROME WITHOUT DIARRHE 12/16/2018 KAMRAN LINDQUIST APRN Ot R07.89 OTHER CHEST PAIN 12/16/2018 KAMRAN LINDQUIST APRN Ot Z80 .0 FAMILY HISTORY OF MALIGNANT NEOPLASM OF 12/16/2018 KAMRAN LINDQUIST APRN Ot Z80 .1 FAMILY HISTORY OF MALIG NEOPLASM OF TRAC 12/16/2018 KAMRAN LINDQUIST APRN Ot Z80 .8 FAMILY HISTORY OF MALIGNANT NEOPLASM OF 12/16/2018 KAMRAN LINDQUIST APRN Ot Z82.49 FAMILY HX OF ISCHEM HEART DIS AND OTH DI 12/16/2018 KAMRAN LINDQUIST APRN Ot Z86.711 PERSONAL HISTORY OF PULMONARY EMBOLISM 12/16/2018 KAMRAN LINDQUIST APRN Ot Z86.718 PERSONAL HISTORY OF OTHER VENOUS THROMBO 12/16/2018 KAMRAN LINDQUIST APRN Ot Z87.442 PERSONAL HISTORY OF URINARY CALCULI 12/16/2018 KAMRAN LINDQUIST APRN Ot Z87.891 PERSONAL HISTORY OF NICOTINE DEPENDENCE 12/16/2018 KAMRAN LINDQUIST APRN Ot Z88 .6 ALLERGY STATUS TO ANALGESIC AGENT STATUS 12/16/2018 KAMRAN LINDQUIST APRN Ot Z88 .7 ALLERGY STATUS TO SERUM AND VACCINE STAT 12/16/2018 KAMRAN LINDQUIST APRN Ot Z88 .8 ALLERGY STATUS TO OT DRUG/MEDS/BIOL SUB 12/16/2018 KAMRAN LINDQUIST APRN Ot Z90.710 ACQUIRED ABSENCE OF BOTH CERVIX AND UTER 12/16/2018 KAMRAN LINDQUIST APRN Ot Z90.89 ACQUIRED ABSENCE OF OTHER ORGANS 12/16/2018 KAMRAN LINDQUIST APRN Ot Z91.040 LATEX ALLERGY STATUS 12/16/2018 KAMRAN LINDQUIST APRN Ot Z91.041 RADIOGRAPHIC DYE ALLERGY STATUS 12/19/2018 KAMRAN LINDQUIST APRN Ot E78.00 PURE HYPERCHOLESTEROLEMIA, UNSPECIFIED 12/19/2018 KAMRAN LINDQUIST APRN Ot F41 .9 ANXIETY DISORDER, UNSPECIFIED 12/19/2018 KAMRAN LINDQUIST APRN Ot G62 .9 POLYNEUROPATHY, UNSPECIFIED 12/19/2018 KAMRAN LINDQUIST APRN Ot I10 ESSENTIAL (PRIMARY) HYPERTENSION 12/19/2018 KAMRAN LINDQUIST APRN Ot J44 .9 CHRONIC OBSTRUCTIVE PULMONARY DISEASE, U 12/19/2018 KAMRAN LINDQUIST APRN Ot K21 .9 GASTRO-ESOPHAGEAL REFLUX DISEASE WITHOUT 12/19/2018 KAMRAN LINDQUIST APRN Ot K58 .9 IRRITABLE BOWEL SYNDROME WITHOUT DIARRHE 12/19/2018 KAMRAN LINDQUIST APRN Ot R07.89 OTHER CHEST PAIN 12/19/2018 KAMRAN LINDQUIST APRN Ot Z80 .0 FAMILY HISTORY OF MALIGNANT NEOPLASM OF 12/19/2018 KAMRAN LINDQUIST APRN Ot Z80 .1 FAMILY HISTORY OF MALIG NEOPLASM OF TRAC 12/19/2018 KAMRAN LINDQUIST APRN Ot Z80 .8 FAMILY HISTORY OF MALIGNANT NEOPLASM OF 12/19/2018 KAMRAN LINDQUIST APRN Ot Z82.49 FAMILY HX OF ISCHEM HEART DIS AND OTH DI 12/19/2018 KAMRAN LINDQUIST APRN Ot Z86.711 PERSONAL HISTORY OF PULMONARY EMBOLISM 12/19/2018 KAMRAN LINDQUIST APRN Ot Z86.718 PERSONAL HISTORY OF OTHER VENOUS THROMBO 12/19/2018 KAMRAN LINDQUIST APRN Ot Z87.442 PERSONAL HISTORY OF URINARY CALCULI 12/19/2018 KAMRAN LINDQUIST APRN Ot Z87.891 PERSONAL HISTORY OF NICOTINE DEPENDENCE 12/19/2018 KAMRAN LINDQUIST APRN Ot Z88 .6 ALLERGY STATUS TO ANALGESIC AGENT STATUS 12/19/2018 KAMRAN LINDQUIST APRN Ot Z88 .7 ALLERGY STATUS TO SERUM AND VACCINE STAT 12/19/2018 KAMRAN LINDQUIST APRN Ot Z88 .8 ALLERGY STATUS TO OTH DRUG/MEDS/BIOL SUB 12/19/2018 KAMRAN LINDQUIST APRN Ot Z90.710 ACQUIRED ABSENCE OF BOTH CERVIX AND UTER 12/19/2018 KAMRAN LINDQUIST APRN Ot Z90.89 ACQUIRED ABSENCE OF OTHER ORGANS 12/19/2018 KAMRAN LINDQUIST APRN Ot Z91.040 LATEX ALLERGY STATUS 12/19/2018 KAMRAN LINDQUIST APRN Ot Z91.041 RADIOGRAPHIC DYE ALLERGY STATUS 02/09/2019 KAMRAN LINDQUIST APRN Ot E78.00 PURE HYPERCHOLESTEROLEMIA, UNSPECIFIED 02/09/2019 KAMRAN LINDQUIST APRN Ot F41 .9 ANXIETY DISORDER, UNSPECIFIED 02/09/2019 KAMRAN LINDQUIST APRN Ot G62 .9 POLYNEUROPATHY, UNSPECIFIED 02/09/2019 KAMRAN LINDQUIST APRN Ot I10 ESSENTIAL (PRIMARY) HYPERTENSION 02/09/2019 KAMRAN LINDQUIST APRN Ot J43 .9 EMPHYSEMA, UNSPECIFIED 02/09/2019 KAMRAN LINDQUIST APRN Ot K21 .9 GASTRO-ESOPHAGEAL REFLUX DISEASE WITHOUT 02/09/2019 KAMRAN LINDQUIST APRN Ot K58 .9 IRRITABLE BOWEL SYNDROME WITHOUT DIARRHE 02/09/2019 KAMRAN LINDQUIST APRN Ot M25.572 PAIN IN LEFT ANKLE AND JOINTS OF LEFT FO 02/09/2019 KAMRAN LINDQUIST APRN Ot S93.402A SPRAIN OF UNSPECIFIED LIGAMENT OF LEFT A 02/09/2019 KAMRAN LINDQUIST APRN Ot X50.1XXA OVEREXERTION FROM PROLONGED STATIC OR AW 02/09/2019 KAMRAN LINDQUIST APRN Ot Z79.52 CARE HOME (CURRENT) USE OF SYSTEMIC STER 02/09/2019 KAMRAN LINDQUIST APRN Ot Z80 .0 FAMILY HISTORY OF MALIGNANT NEOPLASM OF 02/09/2019 KAMRAN LINDQUIST APRN Ot Z80 .8 FAMILY HISTORY OF MALIGNANT NEOPLASM OF 02/09/2019 KAMRAN LINDQUIST APRN Ot Z82.49 FAMILY HX OF ISCHEM HEART DIS AND OTH DI 02/09/2019 KAMRAN LINDQUIST APRN Ot Z86.711 PERSONAL HISTORY OF PULMONARY EMBOLISM 02/09/2019 KAMRAN LINDQUIST APRN Ot Z86.718 PERSONAL HISTORY OF OTHER VENOUS THROMBO 02/09/2019 KAMRAN LINDQUIST APRN Ot Z87.442 PERSONAL HISTORY OF URINARY CALCULI 02/09/2019 KAMRAN LINDQUIST APRN Ot Z87.891 PERSONAL HISTORY OF NICOTINE DEPENDENCE 02/09/2019 KAMRAN LINDQUIST APRN Ot Z88 .6 ALLERGY STATUS TO ANALGESIC AGENT STATUS 02/09/2019 KAMRAN LINDQUIST APRN Ot Z88 .7 ALLERGY STATUS TO SERUM AND VACCINE STAT 02/09/2019 KAMRAN LINDQUIST APRN Ot Z88 .8 ALLERGY STATUS TO OTH DRUG/MEDS/BIOL SUB 02/09/2019 KAMRAN LINDQUIST APRN Ot Z90.710 ACQUIRED ABSENCE OF BOTH CERVIX AND UTER 02/09/2019 KAMRAN LINDQUIST APRN Ot Z90.89 ACQUIRED ABSENCE OF OTHER ORGANS 02/09/2019 KAMRAN LINDQUIST APRN Ot Z91.040 LATEX ALLERGY STATUS 02/09/2019 KAMRAN LINDQUIST APRN Ot Z99.81 DEPENDENCE ON SUPPLEMENTAL OXYGEN 02/20/2019 SUSHANT GALICIA Ot I65.29 OCCLUSION AND STENOSIS OF UNSPECIFIED CA 02/20/2019 SUSHANT GALICIA Ot J44.9 CHRONIC OBSTRUCTIVE PULMONARY DISEASE, U 02/20/2019 SUSHANT GALICIA Ot R07.89 OTHER CHEST PAIN 02/20/[address] THRU ORDER TAKER (CURRENT) USE OF ANTICOAGULANT 03/03/2019 LEAH WOLF MD, Ot V58. 62 ENCOUNT FOR LONG-TERM(CURRENT) USE OF AN 03/03/2019 LEAH WOLF MD, Ot V58. 83 ENCOUNTER FOR THERAPEUTIC DRUG MONITORIN 03/03/2019 LEAH WOLF MD, Ot Z51. 81 ENCOUNTER FOR THERAPEUTIC DRUG LEVEL MON 03/03/2019 LEAH WOLF MD, Ot Z79. 01 CARE HOME (CURRENT) USE OF ANTICOAGULANT 03/03/2019 LEAH WOLF MD, Ot Z86.718 PERSONAL HISTORY OF OTHER VENOUS THROMBO 03/03/2019 LEAH WOLF MD, Ot J44. 1 CHRONIC OBSTRUCTIVE PULMONARY DISEASE W 03/03/2019 HOWARD SALDANA MD, Ot I87.332 CHRONIC VENOUS HTN W ULCER AND INFLAMMAT 03/03/2019 HOWARD SALDANA MD, Ot L97.222 NON-PRESSURE CHRONIC ULCER OF LEFT CALF 03/05/2019 LEAH WOLF MD, Ot E78. 00 PURE HYPERCHOLESTEROLEMIA, UNSPECIFIED 03/05/2019 LEAH WOLF MD, Ot F41. 9 ANXIETY DISORDER, UNSPECIFIED 03/05/2019 LEAH WOLF MD, Ot G62. 9 POLYNEUROPATHY, UNSPECIFIED 03/05/2019 LEAH WOLF MD, Ot I10 ESSENTIAL (PRIMARY) HYPERTENSION 03/05/2019 LEAH WOLF MD, Ot I73. 9 PERIPHERAL VASCULAR DISEASE, UNSPECIFIED 03/05/2019 LEAH WOLF MD, Ot I87. 2 VENOUS INSUFFICIENCY (CHRONIC) (PERIPHER 03/05/2019 LEAH WOLF MD, Ot J20. 9 ACUTE BRONCHITIS, UNSPECIFIED 03/05/2019 LEAH WOLF MD, Ot J44. 0 CHR OBSTRUCTIVE PULMON DISEASE WITH (ACU 03/05/2019 LEAH WOLF MD, Ot J44. 1 CHRONIC OBSTRUCTIVE PULMONARY DISEASE W 03/05/2019 LEAH WOLF MD, Ot K21. 9 GASTRO-ESOPHAGEAL REFLUX DISEASE WITHOUT 03/05/2019 LEAH WOLF MD, Ot K44. 9 DIAPHRAGMATIC HERNIA WITHOUT OBSTRUCTION 03/05/2019 LEAH WOLF MD, Ot K58. 0 IRRITABLE BOWEL SYNDROME WITH DIARRHEA 03/05/2019 LEAH WOLF MD, Ot K59. 09 OTHER CONSTIPATION 03/05/2019 LEAH WOLF MD, Ot R09. 02 HYPOXEMIA 03/05/2019 LEAH WOLF MD, Ot R73. 03 PREDIABETES 03/05/2019 LEAH WOLF MD, Ot Z86.010 PERSONAL HISTORY OF COLONIC POLYPS 03/05/2019 LEAH WOLF MD, Ot Z86.711 PERSONAL HISTORY OF PULMONARY EMBOLISM 03/05/2019 LEAH WOLF MD, Ot Z86.718 PERSONAL HISTORY OF OTHER VENOUS THROMBO 03/05/2019 LEAH WOLF MD, Ot Z87. 01 PERSONAL HISTORY OF PNEUMONIA (RECURRENT 03/05/2019 LEAH WOLF MD, Ot Z87.442 PERSONAL HISTORY OF URINARY CALCULI 03/05/2019 LEAH WOLF MD, Ot Z87.891 PERSONAL HISTORY OF NICOTINE DEPENDENCE 03/05/2019 LEAH WOLF MD, Ot Z88. 7 ALLERGY STATUS TO SERUM AND VACCINE STAT 03/05/2019 LEAH WOLF MD, Ot Z91.040 LATEX ALLERGY STATUS 05/21/2019 HOWARD HUGHES MD Ot E66.9 OBESITY, UNSPECIFIED 05/21/2019 HOWARD HUGHES MD, Ot E78.00 PURE HYPERCHOLESTEROLEMIA, UNSPECIFIED 05/21/2019 HOWARD HUGHES MD, Ot E78.5 HYPERLIPIDEMIA, UNSPECIFIED 05/21/2019 HOWARD HUGHES MD, Ot G47.33 OBSTRUCTIVE SLEEP APNEA (ADULT) (PEDIATR 05/21/2019 HOWARD HUGHES MD, Ot I1 0 ESSENTIAL (PRIMARY) HYPERTENSION 05/21/2019 HOWARD HUGHES MD, Ot I82.409 ACUTE EMBOLISM AND THOMBOS UNSP DEEP VN 05/21/2019 HOWARD HUGHES MD, Ot J44.9 CHRONIC OBSTRUCTIVE PULMONARY DISEASE, U 05/21/2019 HOWARD HUGHES MD, Ot K21.9 GASTRO-ESOPHAGEAL REFLUX DISEASE WITHOUT 05/21/2019 HOWARD HUGHES MD, Ot M94.261 CHONDROMALACIA, RIGHT KNEE 05/21/2019 HOWARD HUGHES MD, Ot S83.281A OT TEAR OF LAT MENSC, CURRENT INJURY, R 05/21/2019 HOWARD HUGHES MD, Ot Z68.33 BODY MASS INDEX (BMI) 33.0-33.9, ADULT 05/21/2019 HOWARD HUGHES MD, Ot Z79.01 CARE HOME (CURRENT) USE OF ANTICOAGULANT 05/21/2019 HOWARD HUGHES MD, Ot Z79.899 OTHER CARE HOME (CURRENT) DRUG THERAPY 05/21/2019 HOWARD HUGHES MD, Ot Z80.9 FAMILY HISTORY OF MALIGNANT NEOPLASM, UN 05/21/2019 HOWARD HUGHES MD, Ot Z82.49 FAMILY HX OF ISCHEM HEART DIS AND OTH DI 05/21/2019 HOWARD HUGHES MD, Ot Z87.891 PERSONAL HISTORY OF NICOTINE DEPENDENCE 05/21/2019 HOWARD HUGHES MD, Ot Z88.6 ALLERGY STATUS TO ANALGESIC AGENT STATUS 05/21/2019 HOWARD HUGHES MD, Ot Z88.7 ALLERGY STATUS TO SERUM AND VACCINE STAT 05/21/2019 HOWARD HUGHES MD, Ot Z88.8 ALLERGY STATUS TO OTH DRUG/MEDS/BIOL SUB 05/21/2019 HOWARD HUGHES MD, Ot Z90.89 ACQUIRED ABSENCE OF OTHER ORGANS 05/21/2019 HOWARD HUGHES MD, Ot Z91.040 LATEX ALLERGY STATUS 05/21/2019 HOWARD HUGHES MD, Ot Z91.048 OTHER NONMEDICINAL SUBSTANCE ALLERGY STA 05/21/2019 HOWARD HUGHES MD, Ot Z98.51 TUBAL LIGATION STATUS 05/22/2019 HOWARD HUGHES MD, Ot E66.9 OBESITY, UNSPECIFIED 05/22/2019 HOWARD HUGHES MD, Ot E78.00 PURE HYPERCHOLESTEROLEMIA, UNSPECIFIED 05/22/2019 HOWARD HUGHES MD, Ot E78.5 HYPERLIPIDEMIA, UNSPECIFIED 05/22/2019 HOWARD HUGHES MD, Ot G47.33 OBSTRUCTIVE SLEEP APNEA (ADULT) (PEDIATR 05/22/2019 HOWARD HUGHES MD, Ot I1 0 ESSENTIAL (PRIMARY) HYPERTENSION 05/22/2019 HOWARD HUGHES MD, Ot I82.409 ACUTE EMBOLISM AND THOMBOS UNSP DEEP VN 05/22/2019 HOWARD HUGHES MD, Ot J44.9 CHRONIC OBSTRUCTIVE PULMONARY DISEASE, U 05/22/2019 HOWARD HUGHES MD, Ot K21.9 GASTRO-ESOPHAGEAL REFLUX DISEASE WITHOUT 05/22/2019 HOWARD HUGHES MD, Ot M94.261 CHONDROMALACIA, RIGHT KNEE 05/22/2019 HOWARD HUGHES MD, Ot S83.281A OT TEAR OF LAT MENSC, CURRENT INJURY, R 05/22/2019 HOWARD HUGHES MD, Ot Z68.33 BODY MASS INDEX (BMI) 33.0-33.9, ADULT 05/22/2019 HOWARD HUGHES MD, Ot Z79.01 DRIVE THRU ORDER TAKER (CURRENT) USE OF ANTICOAGULANT 05/22/2019 HOWARD HUGHES MD, Ot Z79.8[address] THRU ORDER TAKER (CURRENT) DRUG THERAPY 05/22/2019 HOWARD HUGHES MD, Ot Z80.9 FAMILY HISTORY OF MALIGNANT NEOPLASM, UN 05/22/2019 HOWARD HUGHES MD, Ot Z82.49 FAMILY HX OF ISCHEM HEART DIS AND OTH DI 05/22/2019 HOWARD HUGHES MD, Ot Z87.891 PERSONAL HISTORY OF NICOTINE DEPENDENCE 05/22/2019 HOWARD HUGHES MD, Ot Z88.6 ALLERGY STATUS TO ANALGESIC AGENT STATUS 05/22/2019 HOWARD HUGHES MD, Ot Z88.7 ALLERGY STATUS TO SERUM AND VACCINE STAT 05/22/2019 HOWARD HUGHES MD, Ot Z88.8 ALLERGY STATUS TO OT DRUG/MEDS/BIOL SUB 05/22/2019 HOWARD HUGHES MD, Ot Z90.89 ACQUIRED ABSENCE OF OTHER ORGANS 05/22/2019 HOWARD HUGHES MD Ot Z91.040 LATEX ALLERGY STATUS 05/22/2019 HOWARD HUGHES MD Ot Z91.048 OTHER NONMEDICINAL SUBSTANCE ALLERGY STA 05/22/2019 HOWARD HUGHES MD, Ot Z98.51 TUBAL LIGATION STATUS 06/02/2019 LEAH WOLF MD, Ot D68. 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 06/02/2019 LEAH WOLF MD, Ot E66. 9 OBESITY, UNSPECIFIED 06/02/2019 LEAH WOLF MD, Ot E78. 00 PURE HYPERCHOLESTEROLEMIA, UNSPECIFIED 06/02/2019 LEAH WOLF MD, Ot F41. 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 9 POLYNEUROPATHY, UNSPECIFIED 06/02/2019 LEAH WOLF MD, Ot I10 ESSENTIAL (PRIMARY) HYPERTENSION 06/02/2019 LEAH WOLF MD, Ot I73. 9 PERIPHERAL VASCULAR DISEASE, UNSPECIFIED 06/02/2019 LEAH WOLF MD, Ot I87. 2 VENOUS INSUFFICIENCY (CHRONIC) (PERIPHER 06/02/2019 LEAH WOLF MD, Ot J44. 1 CHRONIC OBSTRUCTIVE PULMONARY DISEASE W 06/02/2019 LEAH WOLF MD, Ot K21. 9 GASTRO-ESOPHAGEAL REFLUX DISEASE WITHOUT 06/02/2019 LEAH WOLF MD, Ot K44. 9 DIAPHRAGMATIC HERNIA WITHOUT OBSTRUCTION 06/02/2019 LEAH WOLF MD, Ot K58. 0 IRRITABLE BOWEL SYNDROME WITH DIARRHEA 06/02/2019 LEAH WOLF MD, Ot K58. 1 IRRITABLE BOWEL SYNDROME WITH CONSTIPATI 06/02/2019 LEAH WOLF MD, Ot M19. 91 PRIMARY OSTEOARTHRITIS, UNSPECIFIED SITE 06/02/2019 LEAH WOLF MD, Ot R73. 03 PREDIABETES 06/02/2019 LEAH WOLF MD, Ot Z68. 33 BODY MASS INDEX (BMI) 33.0-33.9, ADULT 06/02/2019 LEAH WOLF MD, Ot Z86. 19 PERSONAL HISTORY OF OTHER INFECTIOUS AND 06/02/2019 LEAH WOLF MD, Ot Z86.711 PERSONAL HISTORY OF PULMONARY EMBOLISM 06/02/2019 LEAH WOLF MD, Ot Z86.718 PERSONAL HISTORY OF OTHER VENOUS THROMBO 06/02/2019 LEAH WOLF MD, Ot Z87.891 PERSONAL HISTORY OF NICOTINE DEPENDENCE 06/02/2019 LEAH WOLF MD, Ot Z95.828 PRESENCE OF OTHER VASCULAR IMPLANTS AND 06/02/2019 LEAH WOLF MD, Ot Z99. 81 DEPENDENCE ON SUPPLEMENTAL OXYGEN 06/02/2019 LEAH WOLF MD, Ot D68. 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 06/02/2019 LEAH WOLF MD, Ot E66. 9 OBESITY, UNSPECIFIED 06/02/2019 LEAH WOLF MD, Ot E78. 00 PURE HYPERCHOLESTEROLEMIA, UNSPECIFIED 06/02/2019 LEAH WOLF MD, Ot F41. 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 9 POLYNEUROPATHY, UNSPECIFIED 06/02/2019 LEAH WOLF MD, Ot I10 ESSENTIAL (PRIMARY) HYPERTENSION 06/02/2019 LEAH WOLF MD, Ot I73. 9 PERIPHERAL VASCULAR DISEASE, UNSPECIFIED 06/02/2019 LEAH WOLF MD, Ot I87. 2 VENOUS INSUFFICIENCY (CHRONIC) (PERIPHER 06/02/2019 LEAH WOLF MD, Ot J44. 1 CHRONIC OBSTRUCTIVE PULMONARY DISEASE W 06/02/2019 LEAH WOLF MD, Ot J96. 21 ACUTE AND CHRONIC RESPIRATORY FAILURE [place] 06/02/2019 LEAH WOLF MD, Ot K21. 9 GASTRO-ESOPHAGEAL REFLUX DISEASE WITHOUT 06/02/2019 LEAH WOLF MD, Ot K44. 9 DIAPHRAGMATIC HERNIA WITHOUT OBSTRUCTION 06/02/2019 LEAH WOLF MD, Ot K58. 0 IRRITABLE BOWEL SYNDROME WITH DIARRHEA 06/02/2019 LEAH WOLF MD, Ot K58. 1 IRRITABLE BOWEL SYNDROME WITH CONSTIPATI 06/02/2019 LEAH WOLF MD, Ot M19. 91 PRIMARY OSTEOARTHRITIS, UNSPECIFIED SITE 06/02/2019 LEAH WOLF MD, Ot R73. 03 PREDIABETES 06/02/2019 LAEH WOLF MD, Ot Z68. 33 BODY MASS INDEX (BMI) 33.0-33.9, ADULT 06/02/2019 LEAH WOLF MD, Ot Z86. 19 PERSONAL HISTORY OF OTHER INFECTIOUS AND 06/02/2019 LEAH WOLF MD, Ot Z86.711 PERSONAL HISTORY OF PULMONARY EMBOLISM 06/02/2019 LEAH WOLF MD, Ot Z86.718 PERSONAL HISTORY OF OTHER VENOUS THROMBO 06/02/2019 LEAH WOLF MD, Ot Z87.891 PERSONAL HISTORY OF NICOTINE DEPENDENCE 06/02/2019 LEAH WOLF MD, Ot Z95.828 PRESENCE OF OTHER VASCULAR IMPLANTS AND 06/02/2019 LEAH WOLF MD, Ot Z99. 81 DEPENDENCE ON SUPPLEMENTAL OXYGEN 06/19/2019 LEAH WOLF MD, Ot D68. 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 06/19/2019 LEAH WOLF MD, Ot E66. 9 OBESITY, UNSPECIFIED 06/19/2019 LEAH WOLF MD, Ot E78. 00 PURE HYPERCHOLESTEROLEMIA, UNSPECIFIED 06/19/2019 LEAH WOLF MD, Ot F41. 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 9 POLYNEUROPATHY, UNSPECIFIED 06/19/2019 LEAH WOLF MD, Ot I10 ESSENTIAL (PRIMARY) HYPERTENSION 06/19/2019 LEAH WOLF MD, Ot I73. 9 PERIPHERAL VASCULAR DISEASE, UNSPECIFIED 06/19/2019 LEAH WOLF MD, Ot I87. 2 VENOUS INSUFFICIENCY (CHRONIC) (PERIPHER 06/19/2019 LEAH WOLF MD, Ot J44. 1 CHRONIC OBSTRUCTIVE PULMONARY DISEASE W 06/19/2019 LEAH WOLF MD, Ot J96. 21 ACUTE AND CHRONIC RESPIRATORY FAILURE [place] 06/19/2019 LEAH WOLF MD, Ot K21. 9 GASTRO-ESOPHAGEAL REFLUX DISEASE WITHOUT 06/19/2019 LEAH WOLF MD, Ot K44. 9 DIAPHRAGMATIC HERNIA WITHOUT OBSTRUCTION 06/19/2019 LEAH WOLF MD, Ot K58. 0 IRRITABLE BOWEL SYNDROME WITH DIARRHEA 06/19/2019 LEAH WOLF MD, Ot K58. 1 IRRITABLE BOWEL SYNDROME WITH CONSTIPATI 06/19/2019 LEAH WOLF MD, Ot M19. 91 PRIMARY OSTEOARTHRITIS, UNSPECIFIED SITE 06/19/2019 LEAH WOLF MD, Ot R73. 03 PREDIABETES 06/19/2019 LEAH WOLF MD, Ot Z68. 33 BODY MASS INDEX (BMI) 33.0-33.9, ADULT 06/19/2019 LEAH WOLF MD, Ot Z86. 19 PERSONAL HISTORY OF OTHER INFECTIOUS AND 06/19/2019 LEAH WOLF MD, Ot Z86.711 PERSONAL HISTORY OF PULMONARY EMBOLISM 06/19/2019 LEAH WOLF MD, Ot Z86.718 PERSONAL HISTORY OF OTHER VENOUS THROMBO 06/19/2019 LEAH WOLF MD, Ot Z87.891 PERSONAL HISTORY OF NICOTINE DEPENDENCE 06/19/2019 LEAH WOLF MD, Ot Z95.828 PRESENCE OF OTHER VASCULAR IMPLANTS AND 06/19/2019 LEAH WOLF MD, Ot Z99. 81 DEPENDENCE ON SUPPLEMENTAL OXYGEN 06/19/2019 LEAH WOLF MD, Ot D68. 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 06/19/2019 LEAH WOLF MD, Ot E66. 9 OBESITY, UNSPECIFIED 06/19/2019 LEAH WOLF MD, Ot E78. 00 PURE HYPERCHOLESTEROLEMIA, UNSPECIFIED 06/19/2019 LEAH WOLF MD, Ot F41. 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 9 POLYNEUROPATHY, UNSPECIFIED 06/19/2019 LEAH WOLF MD, Ot I10 ESSENTIAL (PRIMARY) HYPERTENSION 06/19/2019 LEAH WOLF MD, Ot I73. 9 PERIPHERAL VASCULAR DISEASE, UNSPECIFIED 06/19/2019 LEAH WOLF MD, Ot I87. 2 VENOUS INSUFFICIENCY (CHRONIC) (PERIPHER 06/19/2019 LEAH WOLF MD, Ot J44. 1 CHRONIC OBSTRUCTIVE PULMONARY DISEASE W 06/19/2019 LEAH WOLF MD, Ot J96. 21 ACUTE AND CHRONIC RESPIRATORY FAILURE [place] 06/19/2019 LEAH WOLF MD, Ot K21. 9 GASTRO-ESOPHAGEAL REFLUX DISEASE WITHOUT 06/19/2019 LEAH WOLF MD, Ot K44. 9 DIAPHRAGMATIC HERNIA WITHOUT OBSTRUCTION 06/19/2019 LEAH WOLF MD, Ot K58. 0 IRRITABLE BOWEL SYNDROME WITH DIARRHEA 06/19/2019 LEAH WOLF MD, Ot K58. 1 IRRITABLE BOWEL SYNDROME WITH CONSTIPATI 06/19/2019 LEAH WOLF MD, Ot M19. 91 PRIMARY OSTEOARTHRITIS, UNSPECIFIED SITE 06/19/2019 LEAH WOLF MD, Ot R73. 03 PREDIABETES 06/19/2019 LEAH WOLF MD, Ot Z68. 33 BODY MASS INDEX (BMI) 33.0-33.9, ADULT 06/19/2019 LEAH WOLF MD, Ot Z86. 19 PERSONAL HISTORY OF OTHER INFECTIOUS AND 06/19/2019 LEAH WOLF MD, Ot Z86.711 PERSONAL HISTORY OF PULMONARY EMBOLISM 06/19/2019 LEAH WOLF MD, Ot Z86.718 PERSONAL HISTORY OF OTHER VENOUS THROMBO 06/19/2019 LEAH WOLF MD, Ot Z87.891 PERSONAL HISTORY OF NICOTINE DEPENDENCE 06/19/2019 LEAH WOLF MD, Ot Z95.828 PRESENCE OF OTHER VASCULAR IMPLANTS AND 06/19/2019 LEAH WOLF MD, Ot Z99. 81 DEPENDENCE ON SUPPLEMENTAL OXYGEN 07/22/2019 LEAH WOLF MD, Ot E78. 00 PURE HYPERCHOLESTEROLEMIA, UNSPECIFIED 07/22/2019 LEAH WOLF MD, Ot F41. 9 ANXIETY DISORDER, UNSPECIFIED 07/22/2019 LEAH WOLF MD, Ot G62. 9 POLYNEUROPATHY, UNSPECIFIED 07/22/2019 LEAH WOLF MD, Ot I10 ESSENTIAL (PRIMARY) HYPERTENSION 07/22/2019 LEAH WOLF MD, Ot I48. 91 UNSPECIFIED ATRIAL FIBRILLATION 07/22/2019 LEAH WOLF MD, Ot I73. 9 PERIPHERAL VASCULAR DISEASE, UNSPECIFIED 07/22/2019 LEAH WOLF MD, Ot I87. 2 VENOUS INSUFFICIENCY (CHRONIC) (PERIPHER 07/22/2019 LEAH WOLF MD, Ot J44. 1 CHRONIC OBSTRUCTIVE PULMONARY DISEASE W 07/22/2019 LEAH WOLF MD, Ot K21. 9 GASTRO-ESOPHAGEAL REFLUX DISEASE WITHOUT 07/22/2019 LEAH WOLF MD, Ot K44. 9 DIAPHRAGMATIC HERNIA WITHOUT OBSTRUCTION 07/22/2019 LEAH WOLF MD, Ot K58. 9 IRRITABLE BOWEL SYNDROME WITHOUT DIARRHE 07/22/2019 LEAH WOLF MD, Ot K75. 9 INFLAMMATORY LIVER DISEASE, UNSPECIFIED 07/22/2019 LEAH WOLF MD, Ot M19. 91 PRIMARY OSTEOARTHRITIS, UNSPECIFIED SITE 07/22/2019 LEAH WOLF MD, Ot R09. 02 HYPOXEMIA 07/22/2019 LEAH WOLF MD, Ot R73. 03 PREDIABETES 07/22/2019 LEAH WOLF MD, Ot Z79. 01 CARE HOME (CURRENT) USE OF ANTICOAGULANT 07/22/2019 LEAH WOLF MD, Ot Z86.711 PERSONAL HISTORY OF PULMONARY EMBOLISM 07/22/2019 LEAH WOLF MD, Ot Z86.718 PERSONAL HISTORY OF OTHER VENOUS THROMBO 07/22/2019 LEAH WOLF MD, Ot Z87.891 PERSONAL HISTORY OF NICOTINE DEPENDENCE 07/22/2019 LEAH WOLF MD, Ot Z95.828 PRESENCE OF OTHER VASCULAR IMPLANTS AND 07/22/2019 LEAH WOLF MD, Ot Z99. 81 DEPENDENCE ON SUPPLEMENTAL OXYGEN 07/22/2019 LEAH WOLF MD, Ot E78. 00 PURE HYPERCHOLESTEROLEMIA, UNSPECIFIED 07/22/2019 LEAH WOLF MD, Ot F41. 9 ANXIETY DISORDER, UNSPECIFIED 07/22/2019 LEAH WOLF MD, Ot G62. 9 POLYNEUROPATHY, UNSPECIFIED 07/22/2019 LEAH WOLF MD, Ot I10 ESSENTIAL (PRIMARY) HYPERTENSION 07/22/2019 LEAH WOLF MD, Ot I48. 91 UNSPECIFIED ATRIAL FIBRILLATION 07/22/2019 LEAH WOLF MD, Ot I73. 9 PERIPHERAL VASCULAR DISEASE, UNSPECIFIED 07/22/2019 LEAH WOLF MD, Ot I87. 2 VENOUS INSUFFICIENCY (CHRONIC) (PERIPHER 07/22/2019 LEAH WOLF MD, Ot J44. 1 CHRONIC OBSTRUCTIVE PULMONARY DISEASE W 07/22/2019 LEAH WOLF MD, Ot K21. 9 GASTRO-ESOPHAGEAL REFLUX DISEASE WITHOUT 07/22/2019 LEAH WOLF MD, Ot K44. 9 DIAPHRAGMATIC HERNIA WITHOUT OBSTRUCTION 07/22/2019 LEAH WOLF MD, Ot K58. 9 IRRITABLE BOWEL SYNDROME WITHOUT DIARRHE 07/22/2019 LEAH WOLF MD, Ot K75. 9 INFLAMMATORY LIVER DISEASE, UNSPECIFIED 07/22/2019 LEAH WOLF MD, Ot M19. 91 PRIMARY OSTEOARTHRITIS, UNSPECIFIED SITE 07/22/2019 LEAH WOLF MD, Ot R09. 02 HYPOXEMIA 07/22/2019 LEAH WOLF MD, Ot R73. 03 PREDIABETES 07/22/2019 LEAH WOLF MD, Ot Z79. 01 CARE HOME (CURRENT) USE OF ANTICOAGULANT 07/22/2019 LEAH WOLF MD, Ot Z86.711 PERSONAL HISTORY OF PULMONARY EMBOLISM 07/22/2019 LEAH WOLF MD, Ot Z86.718 PERSONAL HISTORY OF OTHER VENOUS THROMBO 07/22/2019 LEAH WOLF MD, Ot Z87.891 PERSONAL HISTORY OF NICOTINE DEPENDENCE 07/22/2019 LEAH WOLF MD, Ot Z95.828 PRESENCE OF OTHER VASCULAR IMPLANTS AND 07/22/2019 LEAH WOLF MD, Ot Z99. 81 DEPENDENCE ON SUPPLEMENTAL OXYGEN 07/22/2019 LEAH WOLF MD, Ot E78. 00 PURE HYPERCHOLESTEROLEMIA, UNSPECIFIED 07/22/2019 LEAH WOLF MD, Ot F41. 9 ANXIETY DISORDER, UNSPECIFIED 07/22/2019 LEAH WOLF MD, Ot G62. 9 POLYNEUROPATHY, UNSPECIFIED 07/22/2019 LEAH WOLF MD, Ot I10 ESSENTIAL (PRIMARY) HYPERTENSION 07/22/2019 LEAH WOLF MD, Ot I48. 91 UNSPECIFIED ATRIAL FIBRILLATION 07/22/2019 LEAH WOLF MD, Ot I73. 9 PERIPHERAL VASCULAR DISEASE, UNSPECIFIED 07/22/2019 LEAH WOLF MD, Ot I87. 2 VENOUS INSUFFICIENCY (CHRONIC) (PERIPHER 07/22/2019 LEAH WOLF MD, Ot J44. 1 CHRONIC OBSTRUCTIVE PULMONARY DISEASE W 07/22/2019 LEAH WOLF MD, Ot K21. 9 GASTRO-ESOPHAGEAL REFLUX DISEASE WITHOUT 07/22/2019 LEAH WOLF MD, Ot K44. 9 DIAPHRAGMATIC HERNIA WITHOUT OBSTRUCTION 07/22/2019 LEAH WOLF MD, Ot K58. 9 IRRITABLE BOWEL SYNDROME WITHOUT DIARRHE 07/22/2019 LEAH WOLF MD, Ot K75. 9 INFLAMMATORY LIVER DISEASE, UNSPECIFIED 07/22/2019 LEAH WOLF MD, Ot M19. 91 PRIMARY OSTEOARTHRITIS, UNSPECIFIED SITE 07/22/2019 LEAH WOLF MD, Ot R09. 02 HYPOXEMIA 07/22/2019 LEAH WOLF MD, Ot R73. 03 PREDIABETES 07/22/2019 LEAH WOLF MD, Ot Z79. 01 DRIVE THRU ORDER TAKER (CURRENT) USE OF ANTICOAGULANT 07/22/2019 LEAH WOLF MD, Ot Z86.711 PERSONAL HISTORY OF PULMONARY EMBOLISM 07/22/2019 LEAH WOLF MD, Ot Z86.718 PERSONAL HISTORY OF OTHER VENOUS THROMBO 07/22/2019 LEAH WOLF MD, Ot Z87.891 PERSONAL HISTORY OF NICOTINE DEPENDENCE 07/22/2019 LEAH WOLF MD, Ot Z95.828 PRESENCE OF OTHER VASCULAR IMPLANTS AND 07/22/2019 LEAH WOLF MD, Ot Z99. 81 DEPENDENCE ON SUPPLEMENTAL OXYGEN 07/23/2019 LEAH WOLF MD, Ot E78. 00 PURE HYPERCHOLESTEROLEMIA, UNSPECIFIED 07/23/2019 LEAH WOLF MD, Ot F41. 9 ANXIETY DISORDER, UNSPECIFIED 07/23/2019 LEAH WOLF MD, Ot G62. 9 POLYNEUROPATHY, UNSPECIFIED 07/23/2019 LEAH WOLF MD, Ot I10 ESSENTIAL (PRIMARY) HYPERTENSION 07/23/2019 LEAH WOLF MD, Ot I48. 91 UNSPECIFIED ATRIAL FIBRILLATION 07/23/2019 LEAH WOLF MD, Ot I73. 9 PERIPHERAL VASCULAR DISEASE, UNSPECIFIED 07/23/2019 LEAH WOLF MD, Ot I87. 2 VENOUS INSUFFICIENCY (CHRONIC) (PERIPHER 07/23/2019 LEAH WOLF MD, Ot J44. 1 CHRONIC OBSTRUCTIVE PULMONARY DISEASE W 07/23/2019 LEAH WOLF MD, Ot K21. 9 GASTRO-ESOPHAGEAL REFLUX DISEASE WITHOUT 07/23/2019 LEAH WOLF MD, Ot K44. 9 DIAPHRAGMATIC HERNIA WITHOUT OBSTRUCTION 07/23/2019 LEAH WOLF MD, Ot K58. 9 IRRITABLE BOWEL SYNDROME WITHOUT DIARRHE 07/23/2019 LEAH WOLF MD, Ot K75. 9 INFLAMMATORY LIVER DISEASE, UNSPECIFIED 07/23/2019 LEAH WOLF MD, Ot M19. 91 PRIMARY OSTEOARTHRITIS, UNSPECIFIED SITE 07/23/2019 LEAH WOLF MD, Ot R09. 02 HYPOXEMIA 07/23/2019 LEAH WOLF MD, Ot R73. 03 PREDIABETES 07/23/2019 LEAH WOLF MD, Ot Z79. 01 DRIVE THRU ORDER TAKER (CURRENT) USE OF ANTICOAGULANT 07/23/2019 LEAH WOLF MD, Ot Z86.711 PERSONAL HISTORY OF PULMONARY EMBOLISM 07/23/2019 LEAH WOLF MD, Ot Z86.718 PERSONAL HISTORY OF OTHER VENOUS THROMBO 07/23/2019 LEAH WOLF MD, Ot Z87.891 PERSONAL HISTORY OF NICOTINE DEPENDENCE 07/23/2019 LEAH WOLF MD, Ot Z95.828 PRESENCE OF OTHER VASCULAR IMPLANTS AND 07/23/2019 LEAH WOLF MD, Ot Z99. 81 DEPENDENCE ON SUPPLEMENTAL OXYGEN 07/23/2019 LEAH WOLF MD, Ot E78. 00 PURE HYPERCHOLESTEROLEMIA, UNSPECIFIED 07/23/2019 LEAH WOLF MD, Ot F41. 9 ANXIETY DISORDER, UNSPECIFIED 07/23/2019 LEAH WOLF MD, Ot G62. 9 POLYNEUROPATHY, UNSPECIFIED 07/23/2019 LEAH WOLF MD, Ot I10 ESSENTIAL (PRIMARY) HYPERTENSION 07/23/2019 LEAH WOLF MD, Ot I48. 91 UNSPECIFIED ATRIAL FIBRILLATION 07/23/2019 LEAH WOLF MD, Ot I73. 9 PERIPHERAL VASCULAR DISEASE, UNSPECIFIED 07/23/2019 LEAH WOLF MD, Ot I87. 2 VENOUS INSUFFICIENCY (CHRONIC) (PERIPHER 07/23/2019 LEAH WOLF MD, Ot J44. 1 CHRONIC OBSTRUCTIVE PULMONARY DISEASE W 07/23/2019 LEAH WOLF MD, Ot J96. 01 ACUTE RESPIRATORY FAILURE WITH HYPOXIA 07/23/2019 LEAH WOLF MD, Ot K21. 9 GASTRO-ESOPHAGEAL REFLUX DISEASE WITHOUT 07/23/2019 LEAH WOLF MD, Ot K44. 9 DIAPHRAGMATIC HERNIA WITHOUT OBSTRUCTION 07/23/2019 LEAH WOLF MD, Ot K58. 9 IRRITABLE BOWEL SYNDROME WITHOUT DIARRHE 07/23/2019 LEAH WOLF MD, Ot K75. 9 INFLAMMATORY LIVER DISEASE, UNSPECIFIED 07/23/2019 LEAH WOLF MD, Ot M19. 91 PRIMARY OSTEOARTHRITIS, UNSPECIFIED SITE 07/23/2019 LEAH WOLF MD, Ot R73. 03 PREDIABETES 07/23/2019 LEAH WOLF MD, Ot Z79. 01 DRIVE THRU ORDER TAKER (CURRENT) USE OF ANTICOAGULANT 07/23/2019 LEAH WOLF MD, Ot Z86.711 PERSONAL HISTORY OF PULMONARY EMBOLISM 07/23/2019 LEAH WOLF MD, Ot Z86.718 PERSONAL HISTORY OF OTHER VENOUS THROMBO 07/23/2019 LEAH WOLF MD, Ot Z87.891 PERSONAL HISTORY OF NICOTINE DEPENDENCE 07/23/2019 LEAH WOLF MD, Ot Z95.828 PRESENCE OF OTHER VASCULAR IMPLANTS AND 07/23/2019 LEAH WOLF MD, Ot Z99. 81 DEPENDENCE ON SUPPLEMENTAL OXYGEN 11/23/2019 LEAH WOLF MD, Ot J44. 9 CHRONIC OBSTRUCTIVE PULMONARY DISEASE, U 11/23/2019 LEAH WOLF MD, Ot Z12. 31 ENCNTR SCREEN MAMMOGRAM FOR MALIGNANT NE 11/25/2019 LEAH WOLF MD, Ot J44. 9 CHRONIC OBSTRUCTIVE PULMONARY DISEASE, U 11/25/2019 LEAH WOLF MD, Ot Z12. 31 ENCNTR SCREEN MAMMOGRAM FOR MALIGNANT NE Procedures Code Description Performed By Per formed On 65.61 OTH REMOVE BOTH OVARIES/TUBES 03/17/2009 68.49 OTHE R AND UNSPECIFIED TOTAL ABDOMINAL HY 03/17/2009 87.77 CYST OGRAM NEC 03/24/2009 38.7 PLICA TION OF VENA CAVA 05/28/2009 45.25 10/16/2011 45.42 10/16/2011 [id number] EX CISION OF RIGHT MAXILLARY SINUS, PERC 04/18/2017 [id number] EX CISION OF LEFT MAXILLARY SINUS, PERC E 04/18/2017 [id number] EX CISION OF RIGHT FRONTAL SINUS, PERC EN 04/18/2017 [id number] EX CISION OF LEFT FRONTAL SINUS, PERC END 04/18/2017 [id number] RE SECTION OF RIGHT ETHMOID SINUS, PERC E 04/18/2017 [id number] RE SECTION OF LEFT ETHMOID SINUS, PERC EN 04/18/2017 [id number] IN SPECTION OF URETER, ENDO 04/18/2017 Results Test Result Range PT panel in platelet poor plasma by coag ulation assay - 01/03/16 08:08 Prothrombin time (PT) in platelet poor plasma by coagu lation assay 30.0 s 12.2-14.7 INR in platelet poor plasma or blood by coagulation as say 2.9 0.8-1.4 Complete blood count (CBC) with automate d white blood cell (WBC) differential - 01/24/16 12:20 Blood leukocytes automated count (number/volume) 6.7 10*3/uL 4.3-11.0 Blood erythrocytes automated count (number/volume) 4.51 10*6/uL 4.35-5.85 Venous blood hemoglobin measurement (mass/volume) 12.7 g/dL 11.5-16.0 Blood hematocrit (volume fraction) 39 % 35-52 Automated erythrocyte mean corpuscular volume 86 [ foz_us] 80-99 Automated erythrocyte mean corpuscular h emoglobin (mass per erythrocyte) 28 pg 25-34 Automated erythrocyte mean corpuscular h emoglobin concentration measurement (mass/volume) 33 g/dL 32-36 Automated erythrocyte distribution width ratio 15. 5 % 10.0- 14.5 Automated blood platelet count (count/volume) 315 10*3/uL [...] 10*3 1.0-4.0 Blood monocytes automated count (number/volume) 0. 5 10*3 0.0-1.0 Automated eosinophil count 0.6 10*3/uL 0 .0-0.3 Automated blood basophil count (count/volume) 0.0 10*3/uL 0.0-0.1 PT panel in platelet poor plasma by coag ulation assay - 01/24/16 12:20 Prothrombin time (PT) in platelet poor plasma by coagu lation assay 30.1 s 12.2-14.7 INR in platelet poor plasma or blood by coagulation as say 2.9 0.8-1.4 Comprehensive metabolic panel - 01/24/16 12:20 Serum or plasma sodium measurement (moles/volume) 141 mmol/L 135-145 Serum or plasma potassium measurement (moles/volume) 3.8 mmol/L 3.6-5.0 Serum or plasma chloride measurement (moles/volume) 110 mmol/L 98-107 Carbon dioxide 23 mmol/L 21-32 Serum or plasma anion gap determination (moles/volume) 8 mmol/L 5-14 Serum or plasma urea nitrogen measurement (mass/volume ) 9 mg/dL 7-18 Serum or plasma creatinine measurement (mass/volume) 0.69 mg/dL 0.60-1.30 Serum or plasma urea nitrogen/creatinine mass ratio 13 NRG Serum or plasma creatinine measurement w ith calculation of estimated glomerular filtration rate > NRG Serum or plasma glucose measurement (mass/volume) 82 mg/dL 70-105 Serum or plasma calcium measurement (mass/volume) 8.9 mg/dL 8.5-10.1 Serum or plasma total bilirubin measurement (mass/volu me) 0.3 mg/dL 0.1-1.0 Serum or plasma alkaline phosphatase niurka surement (enzymatic activity/volume) 69 U/L 40-136 Serum or plasma aspartate aminotransfera se measurement (enzymatic activity/volume) 20 U/L 5-34 Serum or plasma alanine aminotransferase measurement (enzymatic activity/volume) 25 U/L 0-55 Serum or plasma protein measurement (mass/volume) 7.2 g/dL 6.4-8.2 Serum or plasma albumin measurement (mass/volume) 3.8 g/dL 3.2-4.5 PT panel in platelet poor plasma by coag ulation assay - 02/17/16 14:38 Prothrombin time (PT) in platelet poor plasma by coagu lation assay 27.4 s 12.2-14.7 INR in platelet poor plasma or blood by coagulation as say 2.6 0.8-1.4 Complete blood count (CBC) with automate d white blood cell (WBC) differential - 03/02/16 19:41 Blood leukocytes automated count (number/volume) 7.0 10*3/uL 4.3-11.0 Blood erythrocytes automated count (number/volume) 4.25 10*6/uL 4.35-5.85 Venous blood hemoglobin measurement (mass/volume) 12.2 g/dL 11.5-16.0 Blood hematocrit (volume fraction) 37 % 35-52 Automated erythrocyte mean corpuscular volume 87 [ foz_us] 80-99 Automated erythrocyte mean corpuscular h emoglobin (mass per erythrocyte) 29 pg 25-34 Automated erythrocyte mean corpuscular h emoglobin concentration measurement (mass/volume) 33 g/dL 32-36 Automated erythrocyte distribution width ratio 15. 2 % 10.0- 14.5 Automated blood platelet count (count/volume) 286 10*3/uL [...] 10*3 1.0-4.0 Blood monocytes automated count (number/volume) 0. 7 10*3 0.0-1.0 Automated eosinophil count 0.3 10*3/uL 0 .0-0.3 Automated blood basophil count (count/volume) 0.0 10*3/uL 0.0-0.1 Whole blood basic metabolic panel - 02/11 05/28 19:41 Serum or plasma sodium measurement (moles/volume) 141 mmol/L 135-145 Serum or plasma potassium measurement (moles/volume) 3.7 mmol/L 3.6-5.0 Serum or plasma chloride measurement (moles/volume) 108 mmol/L 98-107 Carbon dioxide 23 mmol/L 21-32 Serum or plasma anion gap determination (moles/volume) 10 mmol/L 5-14 Serum or plasma urea nitrogen measurement (mass/volume ) 11 mg/dL 7-18 Serum or plasma creatinine measurement (mass/volume) 0.71 mg/dL 0.60-1.30 Serum or plasma urea nitrogen/creatinine mass ratio 15 NRG Serum or plasma creatinine measurement w ith calculation of estimated glomerular filtration rate > NRG Serum or plasma glucose measurement (mass/volume) 100 mg/dL 70-105 Serum or plasma calcium measurement (mass/volume) 9.0 mg/dL 8.5-10.1 Serum or plasma lithium measurement (mol es/volume) - 03/02/16 19:41 BNP level < pg/mL <100.0 PT panel in platelet poor plasma by coag ulation assay - 03/16/16 12:15 Prothrombin time (PT) in platelet poor plasma by coagu lation assay 28.7 s 12.2-14.7 INR in platelet poor plasma or blood by coagulation as say 2.7 0.8-1.4 PT panel in platelet poor plasma by coag ulation assay - 05/11/16 14:31 Prothrombin time (PT) in platelet poor plasma by coagu lation assay 38.3 s 12.2-14.7 INR in platelet poor plasma or blood by coagulation as say 3.9 0.8-1.4 Complete blood count (CBC) with automate d white blood cell (WBC) differential - 06/04/16 13:54 Blood leukocytes automated count (number/volume) 8.3 10*3/uL 4.3-11.0 Blood erythrocytes automated count (number/volume) 4.59 10*6/uL 4.35-5.85 Venous blood hemoglobin measurement (mass/volume) 13.3 g/dL 11.5-16.0 Blood hematocrit (volume fraction) 40 % 35-52 Automated erythrocyte mean corpuscular volume 87 [ foz_us] 80-99 Automated erythrocyte mean corpuscular h emoglobin (mass per erythrocyte) 29 pg 25-34 Automated erythrocyte mean corpuscular h emoglobin concentration measurement (mass/volume) 33 g/dL 32-36 Automated erythrocyte distribution width ratio 14. 7 % 10.0- 14.5 Automated blood platelet count (count/volume) 289 10*3/uL [...] 10*3 1.0-4.0 Blood monocytes automated count (number/volume) 0. 6 10*3 0.0-1.0 Automated eosinophil count 0.3 10*3/uL 0 .0-0.3 Automated blood basophil count (count/volume) 0.0 10*3/uL 0.0-0.1 PT panel in platelet poor plasma by coag ulation assay - 06/04/16 13:54 Prothrombin time (PT) in platelet poor plasma by coagu lation assay 29.8 s 12.2-14.7 INR in platelet poor plasma or blood by coagulation as say 2.9 0.8-1.4 Arterial blood gas measurement - 7 03:13 Blood pCO2 44 mm[Hg] 35-45 Blood pO2 144 mm[Hg] 79-93 Arterial blood bicarbonate measurement (moles/volume) 27 mmol/L 23-27 Arterial blood base excess by calculation 1.1 mmol /L -2.5-2.5 Arterial blood oxygen saturation measurement 99 % 94-100 * Inhaled oxygen flow rate 50% BIPAP NR G Arterial blood pH measurement with patient temperature correction 7.40 7.37-7.43 Arterial blood carbon dioxide, total measurement (mole s/volume) 27.9 mmol/L 21.0-31.0 Body site L RAD NRG Assessment of wrist artery patency prior to arterial p uncture YES-POS NRG Setting of ventilation mode NO NR G Measurement of body temperature 97.7 NRG Complete blood count (CBC) with automate d white blood cell (WBC) differential - 06/06/16 03:15 Blood leukocytes automated count (number/volume) 9.2 10*3/uL 4.3-11.0 Blood erythrocytes automated count (number/volume) 4.55 10*6/uL 4.35-5.85 Venous blood hemoglobin measurement (mass/volume) 13.1 g/dL 11.5-16.0 Blood hematocrit (volume fraction) 40 % 35-52 Automated erythrocyte mean corpuscular volume 89 [ foz_us] 80-99 Automated erythrocyte mean corpuscular h emoglobin (mass per erythrocyte) 29 pg 25-34 Automated erythrocyte mean corpuscular h emoglobin concentration measurement (mass/volume) 32 g/dL 32-36 Automated erythrocyte distribution width ratio 15. 1 % 10.0- 14.5 Automated blood platelet count (count/volume) 308 10*3/uL [...] 10*3 1.0-4.0 Blood monocytes automated count (number/volume) 0. 9 10*3 0.0-1.0 Automated eosinophil count 0.1 10*3/uL 0 .0-0.3 Automated blood basophil count (count/volume) 0.0 10*3/uL 0.0-0.1 PT panel in platelet poor plasma by coag ulation assay - 06/06/16 03:15 Prothrombin time (PT) in platelet poor plasma by coagu lation assay 31.2 s 12.2-14.7 INR in platelet poor plasma or blood by coagulation as say 3.0 0.8-1.4 Activated partial thromboplastin time (a PTT) in platelet poor plasma bycoagulation assay - 06/06/16 03:15 Activated partial thromboplastin time (a PTT) in platelet poor plasma bycoagulation assay 34 s 24-35 Blood lactic acid measurement (moles/vol ume) - 06/06/16 03:15 Blood lactic acid measurement (moles/volume) 1.9 m mol/L 0.5- 2.0 Comprehensive metabolic panel - 06/06/16 03:15 Serum or plasma sodium measurement (moles/volume) 143 mmol/L 135-145 Serum or plasma potassium measurement (moles/volume) 3.4 mmol/L 3.6-5.0 Serum or plasma chloride measurement (moles/volume) 107 mmol/L 98-107 Carbon dioxide 23 mmol/L 21-32 Serum or plasma anion gap determination (moles/volume) 13 mmol/L 5-14 Serum or plasma urea nitrogen measurement (mass/volume ) 16 mg/dL 7-18 Serum or plasma creatinine measurement (mass/volume) 0.77 mg/dL 0.60-1.30 Serum or plasma urea nitrogen/creatinine mass ratio 21 NRG Serum or plasma creatinine measurement w ith calculation of estimated glomerular filtration rate > NRG Serum or plasma glucose measurement (mass/volume) 111 mg/dL 70-105 Serum or plasma calcium measurement (mass/volume) 8.9 mg/dL 8.5-10.1 Serum or plasma total bilirubin measurement (mass/volu me) 0.2 mg/dL 0.1-1.0 Serum or plasma alkaline phosphatase niurka surement (enzymatic activity/volume) 76 U/L 40-136 Serum or plasma aspartate aminotransfera se measurement (enzymatic activity/volume) 17 U/L 5-34 Serum or plasma alanine aminotransferase measurement (enzymatic activity/volume) 22 U/L 0-55 Serum or plasma protein measurement (mass/volume) 7.0 g/dL 6.4-8.2 Serum or plasma albumin measurement (mass/volume) 3.9 g/dL 3.2-4.5 Serum or plasma C reactive protein measu rement (mass/volume) - 06/06/16 03:15 Serum or plasma C reactive protein measurement (mass/v olume) 0.05 mg/dL 0.00-0.50 Bacterial blood culture - 06/06/16 03:15 Bacterial blood culture NG NRG Bacterial blood culture - 06/06/16 03:19 Bacterial blood culture NG NR Sputum Gram stain - 06/06/16 13:20 GRAM STAIN SPUTUM AND MIXED BACTERIAL GARRY NR Bacterial sputum culture - 06/06/16 13:2 0 Bacterial sputum culture NORMAL [facility] Complete blood count (CBC) with automate d white blood cell (WBC) differential - 06/07/16 03:41 Blood leukocytes automated count (number/volume) 7.5 10*3/uL 4.3-11.0 Blood erythrocytes automated count (number/volume) 4.71 10*6/uL 4.35-5.85 Venous blood hemoglobin measurement (mass/volume) 13.6 g/dL 11.5-16.0 Blood hematocrit (volume fraction) 42 % 35-52 Automated erythrocyte mean corpuscular volume 90 [ foz_us] 80-99 Automated erythrocyte mean corpuscular h emoglobin (mass per erythrocyte) 29 pg 25-34 Automated erythrocyte mean corpuscular h emoglobin concentration measurement (mass/volume) 32 g/dL 32-36 Automated erythrocyte distribution width ratio 15. 4 % 10.0- 14.5 Automated blood platelet count (count/volume) 326 10*3/uL [...] 10*3 1.0-4.0 Blood monocytes automated count (number/volume) 0. 3 10*3 0.0-1.0 Automated eosinophil count 0.0 10*3/uL 0 .0-0.3 Automated blood basophil count (count/volume) 0.0 10*3/uL 0.0-0.1 Whole blood basic metabolic panel - 05/14 10/27 03:41 Serum or plasma sodium measurement (moles/volume) 141 mmol/L 135-145 Serum or plasma potassium measurement (moles/volume) 3.8 mmol/L 3.6-5.0 Serum or plasma chloride measurement (moles/volume) 107 mmol/L 98-107 Carbon dioxide 24 mmol/L 21-32 Serum or plasma anion gap determination (moles/volume) 10 mmol/L 5-14 Serum or plasma urea nitrogen measurement (mass/volume ) 18 mg/dL 7-18 Serum or plasma creatinine measurement (mass/volume) 0.72 mg/dL 0.60-1.30 Serum or plasma urea nitrogen/creatinine mass ratio 25 NRG Serum or plasma creatinine measurement w ith calculation of estimated glomerular filtration rate > NRG Serum or plasma glucose measurement (mass/volume) 121 mg/dL 70-105 Serum or plasma calcium measurement (mass/volume) 9.2 mg/dL 8.5-10.1 PT panel in platelet poor plasma by coag ulation assay - 06/07/16 03:41 Prothrombin time (PT) in platelet poor plasma by coagu lation assay 29.6 s 12.2-14.7 INR in platelet poor plasma or blood by coagulation as say 2.8 0.8-1.4 PT panel in platelet poor plasma by coag ulation assay - 06/25/16 15:37 Prothrombin time (PT) in platelet poor plasma by coagu lation assay 44.6 s 12.2-14.7 INR in platelet poor plasma or blood by coagulation as say 4.7 0.8-1.4 Bacterial blood culture - 07/06/16 16:50 Bacterial blood culture NG NRG Complete blood count (CBC) with automate d white blood cell (WBC) differential - 07/06/16 16:54 Blood leukocytes automated count (number/volume) 7.5 10*3/uL 4.3-11.0 Blood erythrocytes automated count (number/volume) 4.37 10*6/uL 4.35-5.85 Venous blood hemoglobin measurement (mass/volume) 12.7 g/dL 11.5-16.0 Blood hematocrit (volume fraction) 39 % 35-52 Automated erythrocyte mean corpuscular volume 89 [ foz_us] 80-99 Automated erythrocyte mean corpuscular h emoglobin (mass per erythrocyte) 29 pg 25-34 Automated erythrocyte mean corpuscular h emoglobin concentration measurement (mass/volume) 33 g/dL 32-36 Automated erythrocyte distribution width ratio 15. 5 % 10.0- 14.5 Automated blood platelet count (count/volume) 375 10*3/uL [...] 10*3 1.0-4.0 Blood monocytes automated count (number/volume) 0. 8 10*3 0.0-1.0 Automated eosinophil count 0.2 10*3/uL 0 .0-0.3 Automated blood basophil count (count/volume) 0.0 10*3/uL 0.0-0.1 PT panel in platelet poor plasma by coag ulation assay - 07/06/16 16:54 Prothrombin time (PT) in platelet poor plasma by coagu lation assay 24.6 s 12.2-14.7 INR in platelet poor plasma or blood by coagulation as say 2.2 0.8-1.4 Activated partial thromboplastin time (a PTT) in platelet poor plasma bycoagulation assay - 07/06/16 16:54 Activated partial thromboplastin time (a PTT) in platelet poor plasma bycoagulation assay 36 s 24-35 Influenza virus A and B antigen detectio n - 07/06/16 16:54 FLU RESULT NEGATIVE FOR INFLUENZA A AND B ANTIGENS BY IA [facility] Blood lactic acid measurement (moles/vol ume) - 07/06/16 16:54 Blood lactic acid measurement (moles/volume) 0.9 m mol/L 0.5- 2.0 Comprehensive metabolic panel - 07/06/16 16:54 Serum or plasma sodium measurement (moles/volume) 139 mmol/L 135-145 Serum or plasma potassium measurement (moles/volume) 3.8 mmol/L 3.6-5.0 Serum or plasma chloride measurement (moles/volume) 107 mmol/L 98-107 Carbon dioxide 23 mmol/L 21-32 Serum or plasma anion gap determination (moles/volume) 9 mmol/L 5-14 Serum or plasma urea nitrogen measurement (mass/volume ) 7 mg/dL 7-18 Serum or plasma creatinine measurement (mass/volume) 0.66 mg/dL 0.60-1.30 Serum or plasma urea nitrogen/creatinine mass ratio 11 NRG Serum or plasma creatinine measurement w ith calculation of estimated glomerular filtration rate > NRG Serum or plasma glucose measurement (mass/volume) 92 mg/dL 70-105 Serum or plasma calcium measurement (mass/volume) 8.9 mg/dL 8.5-10.1 Serum or plasma total bilirubin measurement (mass/volu me) 0.5 mg/dL 0.1-1.0 Serum or plasma alkaline phosphatase niurka surement (enzymatic activity/volume) 58 U/L 40-136 Serum or plasma aspartate aminotransfera se measurement (enzymatic activity/volume) 18 U/L 5-34 Serum or plasma alanine aminotransferase measurement (enzymatic activity/volume) 23 U/L 0-55 Serum or plasma protein measurement (mass/volume) 6.9 g/dL 6.4-8.2 Serum or plasma albumin measurement (mass/volume) 3.6 g/dL 3.2-4.5 Bacterial blood culture - 07/06/16 16:54 Bacterial blood culture NG NRG Complete urinalysis with reflex to cultu re - 07/06/16 17:40 Urine color determination YELLOW NRG Urine clarity determination CLEAR NR G Urine pH measurement by test strip 7 5-9 Specific gravity of urine by test strip 1.010 1.016-1.022 Urine protein assay by test strip, semi-quantitative NEGATIVE NEGATIVE Urine glucose detection by automated test strip NE GATIVE NEGATIVE Erythrocytes detection in urine sediment by light micr oscopy 1+ NEGATIVE Urine ketones detection by automated test strip NE GATIVE NEGATIVE Urine nitrite detection by test strip NEGATIVE NEGATIVE Urine total bilirubin detection by test strip NEGA TIVE NEGATIVE Urine urobilinogen measurement by automated test strip (mass/volume) 1 mg/dL NORMAL Urine leukocyte esterase detection by dipstick 2+ NEGATIVE Automated urine sediment erythrocyte cou nt by microscopy (number/high power field) NONE NRG Automated urine sediment leukocyte count by microscopy (number/high power field) [HPF] NRG Bacteria detection in urine sediment by light microsco py TRACE NRG Squamous epithelial cells detection in u rine sediment by light microscopy 0-2 NRG Crystals detection in urine sediment by light microsco py NONE NRG Casts detection in urine sediment by light microscopy NONE NRG Mucus detection in urine sediment by light microscopy NEGATIVE NRG Complete urinalysis with reflex to culture NO NRG Complete blood count (CBC) with automate d white blood cell (WBC) differential - 07/23/16 10:50 Blood leukocytes automated count (number/volume) 7.5 10*3/uL 4.3-11.0 Blood erythrocytes automated count (number/volume) 4.70 10*6/uL 4.35-5.85 Venous blood hemoglobin measurement (mass/volume) 13.6 g/dL 11.5-16.0 Blood hematocrit (volume fraction) 41 % 35-52 Automated erythrocyte mean corpuscular volume 88 [ foz_us] 80-99 Automated erythrocyte mean corpuscular h emoglobin (mass per erythrocyte) 29 pg 25-34 Automated erythrocyte mean corpuscular h emoglobin concentration measurement (mass/volume) 33 g/dL 32-36 Automated erythrocyte distribution width ratio 16. 0 % 10.0- 14.5 Automated blood platelet count (count/volume) 337 10*3/uL [...] 10*3 1.0-4.0 Blood monocytes automated count (number/volume) 0. 6 10*3 0.0-1.0 Automated eosinophil count 1.1 10*3/uL 0 .0-0.3 Automated blood basophil count (count/volume) 0.0 10*3/uL 0.0-0.1 PT panel in platelet poor plasma by coag ulation assay - 07/23/16 10:50 Prothrombin time (PT) in platelet poor plasma by coagu lation assay 36.0 s 12.2-14.7 INR in platelet poor plasma or blood by coagulation as say 3.6 0.8-1.4 Blood manual differential performed dete ction - 07/23/16 10:50 Blood monocytes/100 leukocytes 6 % NRG Manual blood segmented neutrophils/100 leukocytes 51 % NRG Blood band neutrophils/100 leukocytes 0 % NRG Manual blood lymphocytes/100 leukocytes 28 % NRG Manual eosinophils/100 leukocytes in nose 15 % NR Manual blood basophils/100 leukocytes 0 % NRG Blood anisocytosis detection by light microscopy S LIGHT NR Comprehensive metabolic panel - 07/23/16 11:25 Serum or plasma sodium measurement (moles/volume) 141 mmol/L 135-145 Serum or plasma potassium measurement (moles/volume) 3.4 mmol/L 3.6-5.0 Serum or plasma chloride measurement (moles/volume) 105 mmol/L 98-107 Carbon dioxide 23 mmol/L 21-32 Serum or plasma anion gap determination (moles/volume) 13 mmol/L 5-14 Serum or plasma urea nitrogen measurement (mass/volume ) 7 mg/dL 7-18 Serum or plasma creatinine measurement (mass/volume) 0.68 mg/dL 0.60-1.30 Serum or plasma urea nitrogen/creatinine mass ratio 10 NRG Serum or plasma creatinine measurement w ith calculation of estimated glomerular filtration rate > NRG Serum or plasma glucose measurement (mass/volume) 117 mg/dL 70-105 Serum or plasma calcium measurement (mass/volume) 9.5 mg/dL 8.5-10.1 Serum or plasma total bilirubin measurement (mass/volu me) 0.3 mg/dL 0.1-1.0 Serum or plasma alkaline phosphatase niurka surement (enzymatic activity/volume) 64 U/L 40-136 Serum or plasma aspartate aminotransfera se measurement (enzymatic activity/volume) 21 U/L 5-34 Serum or plasma alanine aminotransferase measurement (enzymatic activity/volume) 22 U/L 0-55 Serum or plasma protein measurement (mass/volume) 7.6 g/dL 6.4-8.2 Serum or plasma albumin measurement (mass/volume) 4.1 g/dL 3.2-4.5 Magnesium - 07/23/16 11:25 Magnesium 1.7 mg/dL 1.8-2.4 Serum or plasma lithium measurement (mol es/volume) - 07/23/16 11:25 BNP level < pg/mL <100.0 Serum or plasma troponin i.cardiac measu rement (mass/volume) - 07/23/16 11:25 Serum or plasma troponin i.cardiac measurement (mass/v olume) < ng/mL <0.30 Complete blood count (CBC) with automate d white blood cell (WBC) differential - 08/03/16 09:45 Blood leukocytes automated count (number/volume) 9.0 10*3/uL 4.3-11.0 Blood erythrocytes automated count (number/volume) 4.68 10*6/uL 4.35-5.85 Venous blood hemoglobin measurement (mass/volume) 13.5 g/dL 11.5-16.0 Blood hematocrit (volume fraction) 42 % 35-52 Automated erythrocyte mean corpuscular volume 91 [ foz_us] 80-99 Automated erythrocyte mean corpuscular h emoglobin (mass per erythrocyte) 29 pg 25-34 Automated erythrocyte mean corpuscular h emoglobin concentration measurement (mass/volume) 32 g/dL 32-36 Automated erythrocyte distribution width ratio 15. 8 % 10.0- 14.5 Automated blood platelet count (count/volume) 337 10*3/uL [...] 10*3 1.0-4.0 Blood monocytes automated count (number/volume) 1. 0 10*3 0.0-1.0 Automated eosinophil count 0.6 10*3/uL 0 .0-0.3 Automated blood basophil count (count/volume) 0.0 10*3/uL 0.0-0.1 PT panel in platelet poor plasma by coag ulation assay - 08/03/16 09:45 Prothrombin time (PT) in platelet poor plasma by coagu lation assay 31.3 s 12.2-14.7 INR in platelet poor plasma or blood by coagulation as say 3.0 0.8-1.4 Comprehensive metabolic panel - 08/09/16 08:00 Serum or plasma sodium measurement (moles/volume) 142 mmol/L 135-145 Serum or plasma potassium measurement (moles/volume) 3.9 mmol/L 3.6-5.0 Serum or plasma chloride measurement (moles/volume) 110 mmol/L 98-107 Carbon dioxide 25 mmol/L 21-32 Serum or plasma anion gap determination (moles/volume) 7 mmol/L 5-14 Serum or plasma urea nitrogen measurement (mass/volume ) 8 mg/dL 7-18 Serum or plasma creatinine measurement (mass/volume) 0.67 mg/dL 0.60-1.30 Serum or plasma urea nitrogen/creatinine mass ratio 12 NRG Serum or plasma creatinine measurement w ith calculation of estimated glomerular filtration rate > NRG Serum or plasma glucose measurement (mass/volume) 119 mg/dL 70-105 Serum or plasma calcium measurement (mass/volume) 8.2 mg/dL 8.5-10.1 Serum or plasma total bilirubin measurement (mass/volu me) 0.4 mg/dL 0.1-1.0 Serum or plasma alkaline phosphatase niurka surement (enzymatic activity/volume) 61 U/L 40-136 Serum or plasma aspartate aminotransfera se measurement (enzymatic activity/volume) 18 U/L 5-34 Serum or plasma alanine aminotransferase measurement (enzymatic activity/volume) 23 U/L 0-55 Serum or plasma protein measurement (mass/volume) 6.1 g/dL 6.4-8.2 Serum or plasma albumin measurement (mass/volume) 3.3 g/dL 3.2-4.5 Lipid 1996 panel - 08/09/16 08:00 Serum or plasma triglyceride measurement (mass/volume) 208 mg/dL <150 Serum or plasma cholesterol measurement (mass/volume) 205 mg/dL < 200 Serum or plasma cholesterol in HDL measurement (mass/v olume) 38 mg/dL 40-60 Cholesterol in LDL [mass/volume] in serum or plasma by direct assay 144 mg/dL 1-129 Serum or plasma cholesterol in VLDL measurement (mass/ volume) 42 mg/dL 5-40 THYROID STIMULATING HORMONE - 08/09/16 0 8:00 THYROID STIMULATING HORMONE 1.17 u[iU]/mL 0.35-4.94 PT panel in platelet poor plasma by coag ulation assay - 09/06/16 16:26 Prothrombin time (PT) in platelet poor plasma by coagu lation assay 61.5 s 12.2-14.7 INR in platelet poor plasma or blood by coagulation as say 7.0 0.8-1.4 PT panel in platelet poor plasma by coag ulation assay - 12/16/16 19:25 Prothrombin time (PT) in platelet poor plasma by coagu lation assay 22.8 s 12.2-14.7 INR in platelet poor plasma or blood by coagulation as say 2.0 0.8-1.4 Activated partial thromboplastin time (a PTT) in platelet poor plasma bycoagulation assay - 12/16/16 19:25 Activated partial thromboplastin time (a PTT) in platelet poor plasma bycoagulation assay 27 s 24-35 Complete blood count (CBC) with automate d white blood cell (WBC) differential - 01/01/17 22:00 Blood leukocytes automated count (number/volume) 9.5 10*3/uL 4.3-11.0 Blood erythrocytes automated count (number/volume) 4.58 10*6/uL 4.35-5.85 Venous blood hemoglobin measurement (mass/volume) 12.9 g/dL 11.5-16.0 Blood hematocrit (volume fraction) 40 % 35-52 Automated erythrocyte mean corpuscular volume 87 [ foz_us] 80-99 Automated erythrocyte mean corpuscular h emoglobin (mass per erythrocyte) 28 pg 25-34 Automated erythrocyte mean corpuscular h emoglobin concentration measurement (mass/volume) 32 g/dL 32-36 Automated erythrocyte distribution width ratio 15. 0 % 10.0- 14.5 Automated blood platelet count (count/volume) 291 10*3/uL [...] 10*3 1.0-4.0 Blood monocytes automated count (number/volume) 0. 8 10*3 0.0-1.0 Automated eosinophil count 0.6 10*3/uL 0 .0-0.3 Automated blood basophil count (count/volume) 0.1 10*3/uL 0.0-0.1 Comprehensive metabolic panel - 01/01/17 22:00 Serum or plasma sodium measurement (moles/volume) 138 mmol/L 135-145 Serum or plasma potassium measurement (moles/volume) 3.7 mmol/L 3.6-5.0 Serum or plasma chloride measurement (moles/volume) 103 mmol/L 98-107 Carbon dioxide 25 mmol/L 21-32 Serum or plasma anion gap determination (moles/volume) 10 mmol/L 5-14 Serum or plasma urea nitrogen measurement (mass/volume ) 12 mg/dL 7-18 Serum or plasma creatinine measurement (mass/volume) 1.09 mg/dL 0.60-1.30 Serum or plasma urea nitrogen/creatinine mass ratio 11 NRG Serum or plasma creatinine measurement w ith calculation of estimated glomerular filtration rate 52 NRG Serum or plasma glucose measurement (mass/volume) 128 mg/dL 70-105 Serum or plasma calcium measurement (mass/volume) 9.2 mg/dL 8.5-10.1 Serum or plasma total bilirubin measurement (mass/volu me) 0.4 mg/dL 0.1-1.0 Serum or plasma alkaline phosphatase niurka surement (enzymatic activity/volume) 62 U/L 40-136 Serum or plasma aspartate aminotransfera se measurement (enzymatic activity/volume) 19 U/L 5-34 Serum or plasma alanine aminotransferase measurement (enzymatic activity/volume) 20 U/L 0-55 Serum or plasma protein measurement (mass/volume) 7.2 g/dL 6.4-8.2 Serum or plasma albumin measurement (mass/volume) 3.7 g/dL 3.2-4.5 Serum or plasma C reactive protein measu rement (mass/volume) - 01/01/17 22:00 Serum or plasma C reactive protein measurement (mass/v olume) 0.32 mg/dL 0.00-0.50 PT panel in platelet poor plasma by coag ulation assay - 01/01/17 22:05 Prothrombin time (PT) in platelet poor plasma by coagu lation assay 23.6 s 12.2-14.7 INR in platelet poor plasma or blood by coagulation as say 2.1 0.8-1.4 Complete blood count (CBC) with automate d white blood cell (WBC) differential - 03/16/17 13:05 Blood leukocytes automated count (number/volume) 6.5 10*3/uL 4.3-11.0 Blood erythrocytes automated count (number/volume) 4.37 10*6/uL 4.35-5.85 Venous blood hemoglobin measurement (mass/volume) 12.5 g/dL 11.5-16.0 Blood hematocrit (volume fraction) 39 % 35-52 Automated erythrocyte mean corpuscular volume 88 [ foz_us] 80-99 Automated erythrocyte mean corpuscular h emoglobin (mass per erythrocyte) 29 pg 25-34 Automated erythrocyte mean corpuscular h emoglobin concentration measurement (mass/volume) 32 g/dL 32-36 Automated erythrocyte distribution width ratio 15. 1 % 10.0- 14.5 Automated blood platelet count (count/volume) 300 10*3/uL [...] 10*3 1.0-4.0 Blood monocytes automated count (number/volume) 0. 5 10*3 0.0-1.0 Automated eosinophil count 0.6 10*3/uL 0 .0-0.3 Automated blood basophil count (count/volume) 0.0 10*3/uL 0.0-0.1 PT panel in platelet poor plasma by coag ulation assay - 03/16/17 13:05 Prothrombin time (PT) in platelet poor plasma by coagu lation assay 18.5 s 12.2-14.7 INR in platelet poor plasma or blood by coagulation as say 1.5 0.8-1.4 Comprehensive metabolic panel - 03/16/17 13:05 Serum or plasma sodium measurement (moles/volume) 139 mmol/L 135-145 Serum or plasma potassium measurement (moles/volume) 3.4 mmol/L 3.6-5.0 Serum or plasma chloride measurement (moles/volume) 105 mmol/L 98-107 Carbon dioxide 26 mmol/L 21-32 Serum or plasma anion gap determination (moles/volume) 8 mmol/L 5-14 Serum or plasma urea nitrogen measurement (mass/volume ) 7 mg/dL 7-18 Serum or plasma creatinine measurement (mass/volume) 0.64 mg/dL 0.60-1.30 Serum or plasma urea nitrogen/creatinine mass ratio 11 NRG Serum or plasma creatinine measurement w ith calculation of estimated glomerular filtration rate > NRG Serum or plasma glucose measurement (mass/volume) 90 mg/dL 70-105 Serum or plasma calcium measurement (mass/volume) 9.2 mg/dL 8.5-10.1 Serum or plasma total bilirubin measurement (mass/volu me) 0.4 mg/dL 0.1-1.0 Serum or plasma alkaline phosphatase niurka surement (enzymatic activity/volume) 68 U/L 40-136 Serum or plasma aspartate aminotransfera se measurement (enzymatic activity/volume) 19 U/L 5-34 Serum or plasma alanine aminotransferase measurement (enzymatic activity/volume) 18 U/L 0-55 Serum or plasma protein measurement (mass/volume) 7.2 g/dL 6.4-8.2 Serum or plasma albumin measurement (mass/volume) 3.8 g/dL 3.2-4.5 Methicillin resistant Staphylococcus aur eus (MRSA) screening culture - 04/12/17 09:35 Methicillin resistant Staphylococcus aureus (MRSA) scr eening culture NEG NRG PT panel in platelet poor plasma by coag ulation assay - 04/18/17 07:20 Prothrombin time (PT) in platelet poor plasma by coagu lation assay 13.6 s 12.2-14.7 INR in platelet poor plasma or blood by coagulation as say 1.0 0.8-1.4 Capillary blood glucose measurement by g lucometer (mass/volume) - 04/18/17 07:28 Capillary blood glucose measurement by glucometer (mas s/volume) 114 mg/dL 70-110 Gram stain microscopy - 05/05/17 21:29 GRAM STAIN RESULT NO WBC'S OR BACTERIA OBSERVED NRG Bacteria identification in wound by cult ure - 05/05/17 21:29 Bacteria identification in wound by culture [id number] NRG FREE TEXT EXTERNAL (2 COLONY TYPES) NRG QUANTITY OF GROWTH Scant Growth NRG FREE TEXT ENTRY 2 NO FURTHER STUDIES UNLESS REQUES LLOYD NRG Complete blood count (CBC) with automate d white blood cell (WBC) differential - 05/05/17 21:40 Blood leukocytes automated count (number/volume) 7.2 10*3/uL 4.3-11.0 Blood erythrocytes automated count (number/volume) 4.19 10*6/uL 4.35-5.85 Venous blood hemoglobin measurement (mass/volume) 12.0 g/dL 11.5-16.0 Blood hematocrit (volume fraction) 37 % 35-52 Automated erythrocyte mean corpuscular volume 88 [ foz_us] 80-99 Automated erythrocyte mean corpuscular h emoglobin (mass per erythrocyte) 29 pg 25-34 Automated erythrocyte mean corpuscular h emoglobin concentration measurement (mass/volume) 33 g/dL 32-36 Automated erythrocyte distribution width ratio 14. 9 % 10.0- 14.5 Automated blood platelet count (count/volume) 278 10*3/uL [...] 10*3 1.0-4.0 Blood monocytes automated count (number/volume) 0. 6 10*3 0.0-1.0 Automated eosinophil count 0.4 10*3/uL 0 .0-0.3 Automated blood basophil count (count/volume) 0.0 10*3/uL 0.0-0.1 Whole blood basic metabolic panel - 04/13 08/27 21:40 Serum or plasma sodium measurement (moles/volume) 138 mmol/L 135-145 Serum or plasma potassium measurement (moles/volume) 3.1 mmol/L 3.6-5.0 Serum or plasma chloride measurement (moles/volume) 102 mmol/L 98-107 Carbon dioxide 24 mmol/L 21-32 Serum or plasma anion gap determination (moles/volume) 12 mmol/L 5-14 Serum or plasma urea nitrogen measurement (mass/volume ) 9 mg/dL 7-18 Serum or plasma creatinine measurement (mass/volume) 0.67 mg/dL 0.60-1.30 Serum or plasma urea nitrogen/creatinine mass ratio 13 NRG Serum or plasma creatinine measurement w ith calculation of estimated glomerular filtration rate > NRG Serum or plasma glucose measurement (mass/volume) 142 mg/dL 70-105 Serum or plasma calcium measurement (mass/volume) 8.3 mg/dL 8.5-10.1 Serum or plasma C reactive protein measu rement (mass/volume) - 05/05/17 21:40 Serum or plasma C reactive protein measurement (mass/v olume) 0.32 mg/dL 0.00-0.50 PT panel in platelet poor plasma by coag ulation assay - 05/05/17 21:40 Prothrombin time (PT) in platelet poor plasma by coagu lation assay 21.4 s 12.2-14.7 INR in platelet poor plasma or blood by coagulation as say 1.9 0.8-1.4 Fibrin D-dimer FEU measurement in platel et poor plasma (mass/volume) - 05/05/17 21:40 Fibrin D-dimer FEU measurement in platelet poor plasma (mass/volume) 0.54 ug/mL 0.00-0.49 Complete blood count (CBC) with automate d white blood cell (WBC) differential - 05/18/17 00:59 Blood leukocytes automated count (number/volume) 11.5 10*3/uL 4.3-11.0 Blood erythrocytes automated count (number/volume) 4.52 10*6/uL 4.35-5.85 Venous blood hemoglobin measurement (mass/volume) 12.7 g/dL 11.5-16.0 Blood hematocrit (volume fraction) 37 % 35-52 Automated erythrocyte mean corpuscular volume 81 [ foz_us] 80-99 Automated erythrocyte mean corpuscular h emoglobin (mass per erythrocyte) 28 pg 25-34 Automated erythrocyte mean corpuscular h emoglobin concentration measurement (mass/volume) 35 g/dL 32-36 Automated erythrocyte distribution width ratio 14. 8 % 10.0- 14.5 Automated blood platelet count (count/volume) 412 10*3/uL [...] 10*3 1.0-4.0 Blood monocytes automated count (number/volume) 1. 3 10*3 0.0-1.0 Automated eosinophil count 0.0 10*3/uL 0 .0-0.3 Automated blood basophil count (count/volume) 0.0 10*3/uL 0.0-0.1 Influenza virus A and B antigen detectio n - 05/18/17 00:59 FLU RESULT NEGATIVE FOR INFLUENZA A AND B ANTIGENS BY [facility] Comprehensive metabolic panel - 05/18/17 00:59 Serum or plasma sodium measurement (moles/volume) 147 mmol/L 135-145 Serum or plasma potassium measurement (moles/volume) 3.3 mmol/L 3.6-5.0 Serum or plasma chloride measurement (moles/volume) 109 mmol/L 98-107 Carbon dioxide 25 mmol/L 21-32 Serum or plasma anion gap determination (moles/volume) 13 mmol/L 5-14 Serum or plasma urea nitrogen measurement (mass/volume ) 17 mg/dL 7-18 Serum or plasma creatinine measurement (mass/volume) 0.79 mg/dL 0.60-1.30 Serum or plasma urea nitrogen/creatinine mass ratio 22 NRG Serum or plasma creatinine measurement w ith calculation of estimated glomerular filtration rate > NRG Serum or plasma glucose measurement (mass/volume) 114 mg/dL 70-105 Serum or plasma calcium measurement (mass/volume) 9.7 mg/dL 8.5-10.1 Serum or plasma total bilirubin measurement (mass/volu me) 0.2 mg/dL 0.1-1.0 Serum or plasma alkaline phosphatase niurka surement (enzymatic activity/volume) 80 U/L 40-136 Serum or plasma aspartate aminotransfera se measurement (enzymatic activity/volume) 18 U/L 5-34 Serum or plasma alanine aminotransferase measurement (enzymatic activity/volume) 18 U/L 0-55 Serum or plasma protein measurement (mass/volume) 8.1 g/dL 6.4-8.2 Serum or plasma albumin measurement (mass/volume) 4.0 g/dL 3.2-4.5 Magnesium - 05/18/17 00:59 Magnesium 2.3 mg/dL 1.8-2.4 PT panel in platelet poor plasma by coag ulation assay - 05/18/17 00:59 Prothrombin time (PT) in platelet poor plasma by coagu lation assay 20.2 s 12.2-14.7 INR in platelet poor plasma or blood by coagulation as say 1.7 0.8-1.4 Activated partial thromboplastin time (a PTT) in platelet poor plasma bycoagulation assay - 05/18/17 00:59 Activated partial thromboplastin time (a PTT) in platelet poor plasma bycoagulation assay 29 s 24-35 Serum or plasma lithium measurement (mol es/volume) - 05/18/17 00:59 BNP level 15.1 pg/mL <100.0 Serum or plasma troponin i.cardiac measu rement (mass/volume) - 05/18/17 00:59 Serum or plasma troponin i.cardiac measurement (mass/v olume) < ng/mL <0.30 Bacterial blood culture - 05/18/17 00:59 Bacterial blood culture NG NRG Bacterial blood culture - 05/18/17 01:20 Bacterial blood culture NG NRG Arterial blood gas measurement - 8 01:55 Blood pCO2 60 mm[Hg] 35-45 Blood pO2 57 mm[Hg] 79-93 Arterial blood bicarbonate measurement (moles/volume) 28 mmol/L 23-27 Arterial blood base excess by calculation 1.6 mmol /L -2.5-2.5 Arterial blood oxygen saturation measurement 87 % 94-100 * Inhaled oxygen flow rate 4L NRG Arterial blood pH measurement with patient temperature correction 7.28 7.37-7.43 Arterial blood carbon dioxide, total measurement (mole s/volume) 29.6 mmol/L 21.0-31.0 Body site L RAD NRG Assessment of wrist artery patency prior to arterial p uncture YES-POS NRG Setting of ventilation mode NO NR G Measurement of body temperature 98.0 NRG Arterial blood gas measurement - 8 02:40 Blood pCO2 62 mm[Hg] 35-45 Blood pO2 253 mm[Hg] 79-93 Arterial blood bicarbonate measurement (moles/volume) 27 mmol/L 23-27 Arterial blood base excess by calculation 0.9 mmol /L -2.5-2.5 Arterial blood oxygen saturation measurement 100 % 94-100 * Inhaled oxygen flow rate BIPAP NRG Arterial blood pH measurement with patient temperature correction 7.26 7.37-7.43 Arterial blood carbon dioxide, total measurement (mole s/volume) 29.2 mmol/L 21.0-31.0 Body site R RAD NRG Assessment of wrist artery patency prior to arterial p uncture YES-POS NRG Setting of ventilation mode YES NR G Measurement of body temperature 97.6 NRG Methicillin resistant Staphylococcus aur eus (MRSA) screening culture - 05/18/17 04:00 Methicillin resistant Staphylococcus aureus (MRSA) scr eening culture NEG NRG Arterial blood gas measurement - 8 05:00 Blood pCO2 43 mm[Hg] 35-45 Blood pO2 230 mm[Hg] 79-93 Arterial blood bicarbonate measurement (moles/volume) 25 mmol/L 23-27 Arterial blood base excess by calculation 0.1 mmol /L -2.5-2.5 Arterial blood oxygen saturation measurement 100 % 94-100 * Inhaled oxygen flow rate 60% FIO2 NRG Arterial blood pH measurement with patient temperature correction 7.37 7.37-7.43 Arterial blood carbon dioxide, total measurement (mole s/volume) 26.2 mmol/L 21.0-31.0 Body site R RAD NRG Assessment of wrist artery patency prior to arterial p uncture YES-POS NRG Setting of ventilation mode YES NR G Measurement of body temperature 97.8 NRG Complete blood count (CBC) with automate d white blood cell (WBC) differential - 05/18/17 05:10 Blood leukocytes automated count (number/volume) 10.1 10*3/uL 4.3-11.0 Blood erythrocytes automated count (number/volume) 4.12 10*6/uL 4.35-5.85 Venous blood hemoglobin measurement (mass/volume) 11.7 g/dL 11.5-16.0 Blood hematocrit (volume fraction) 34 % 35-52 Automated erythrocyte mean corpuscular volume 83 [ foz_us] 80-99 Automated erythrocyte mean corpuscular h emoglobin (mass per erythrocyte) 28 pg 25-34 Automated erythrocyte mean corpuscular h emoglobin concentration measurement (mass/volume) 34 g/dL 32-36 Automated erythrocyte distribution width ratio 14. 8 % 10.0- 14.5 Automated blood platelet count (count/volume) 376 10*3/uL 130-400 Automated blood platelet mean volume measurement 8.9 [foz_us] 7.4-10.4 Automated blood neutrophils/100 leukocytes 94 % 42-75 Automated blood lymphocytes/100 leukocytes 4 % 12-44 Blood monocytes/100 leukocytes 2 % 0-12 Automated blood eosinophils/100 leukocytes 0 % 0-10 Automated blood basophils/100 leukocytes 0 % 0-10 Blood neutrophils automated count (number/volume) 9.4 10*3 1.8-7.8 Blood lymphocytes automated count (number/volume) 0.4 10*3 1.0-4.0 Blood monocytes automated count (number/volume) 0. 2 10*3 0.0-1.0 Automated eosinophil count 0.0 10*3/uL 0 .0-0.3 Automated blood basophil count (count/volume) 0.0 10*3/uL 0.0-0.1 Blood manual differential performed dete ction - 05/18/17 05:10 Blood monocytes/100 leukocytes 3 % NRG Manual blood segmented neutrophils/100 leukocytes 95 % NRG Blood band neutrophils/100 leukocytes 1 % NRG Manual blood lymphocytes/100 leukocytes 1 % NRG Manual eosinophils/100 leukocytes in nose 0 % NRG Manual blood basophils/100 leukocytes 0 % NRG Blood anisocytosis detection by light microscopy [facility] Comprehensive metabolic panel - 05/18/17 05:10 Serum or plasma sodium measurement (moles/volume) 147 mmol/L 135-145 Serum or plasma potassium measurement (moles/volume) 3.4 mmol/L 3.6-5.0 Serum or plasma chloride measurement (moles/volume) 110 mmol/L 98-107 Carbon dioxide 25 mmol/L 21-32 Serum or plasma anion gap determination (moles/volume) 12 mmol/L 5-14 Serum or plasma urea nitrogen measurement (mass/volume ) 18 mg/dL 7-18 Serum or plasma creatinine measurement (mass/volume) 0.79 mg/dL 0.60-1.30 Serum or plasma urea nitrogen/creatinine mass ratio 23 NRG Serum or plasma creatinine measurement w ith calculation of estimated glomerular filtration rate > NRG Serum or plasma glucose measurement (mass/volume) 203 mg/dL 70-105 Serum or plasma calcium measurement (mass/volume) 8.9 mg/dL 8.5-10.1 Serum or plasma total bilirubin measurement (mass/volu me) 0.2 mg/dL 0.1-1.0 Serum or plasma alkaline phosphatase niurka surement (enzymatic activity/volume) 69 U/L 40-136 Serum or plasma aspartate aminotransfera se measurement (enzymatic activity/volume) 13 U/L 5-34 Serum or plasma alanine aminotransferase measurement (enzymatic activity/volume) 15 U/L 0-55 Serum or plasma protein measurement (mass/volume) 7.0 g/dL 6.4-8.2 Serum or plasma albumin measurement (mass/volume) 3.6 g/dL 3.2-4.5 Serum or plasma phosphate measurement (m ass/volume) - 05/18/17 05:10 Serum or plasma phosphate measurement (mass/volume) 1.9 mg/dL 2.3-4.7 Magnesium - 05/18/17 05:10 Magnesium 1.9 mg/dL 1.8-2.4 Capillary blood glucose measurement by g lucometer (mass/volume) - 05/18/17 15:25 Capillary blood glucose measurement by glucometer (mas s/volume) 132 mg/dL 70-110 Capillary blood glucose measurement by g lucometer (mass/volume) - 05/18/17 21:05 Capillary blood glucose measurement by glucometer (mas s/volume) 233 mg/dL 70-110 Capillary blood glucose measurement by g lucometer (mass/volume) - 05/19/17 05:30 Capillary blood glucose measurement by glucometer (mas s/volume) 168 mg/dL 70-110 PT panel in platelet poor plasma by coag ulation assay - 05/19/17 05:55 Prothrombin time (PT) in platelet poor plasma by coagu lation assay 24.6 s 12.2-14.7 INR in platelet poor plasma or blood by coagulation as say 2.2 0.8-1.4 Automated blood complete blood count (he mogram) panel - 05/19/17 05:55 Blood leukocytes automated count (number/volume) 8.7 10*3/uL 4.3-11.0 Blood erythrocytes automated count (number/volume) 4.23 10*6/uL 4.35-5.85 Venous blood hemoglobin measurement (mass/volume) 11.9 g/dL 11.5-16.0 Blood hematocrit (volume fraction) 38 % 35-52 Automated erythrocyte mean corpuscular volume 89 [ foz_us] 80-99 Automated erythrocyte mean corpuscular h emoglobin (mass per erythrocyte) 28 pg 25-34 Automated erythrocyte mean corpuscular h emoglobin concentration measurement (mass/volume) 32 g/dL 32-36 Automated erythrocyte distribution width ratio 14. 9 % 10.0- 14.5 Automated blood platelet count (count/volume) 361 10*3/uL 130-400 Automated blood platelet mean volume measurement 9.5 [foz_us] 7.4-10.4 Whole blood basic metabolic panel - 11/27 05:55 Serum or plasma sodium measurement (moles/volume) 140 mmol/L 135-145 Serum or plasma potassium measurement (moles/volume) 3.6 mmol/L 3.6-5.0 Serum or plasma chloride measurement (moles/volume) 105 mmol/L 98-107 Carbon dioxide 21 mmol/L 21-32 Serum or plasma anion gap determination (moles/volume) 14 mmol/L 5-14 Serum or plasma urea nitrogen measurement (mass/volume ) 12 mg/dL 7-18 Serum or plasma creatinine measurement (mass/volume) 0.63 mg/dL 0.60-1.30 Serum or plasma urea nitrogen/creatinine mass ratio 19 NRG Serum or plasma creatinine measurement w ith calculation of estimated glomerular filtration rate > NRG Serum or plasma glucose measurement (mass/volume) 163 mg/dL 70-105 Serum or plasma calcium measurement (mass/volume) 8.9 mg/dL 8.5-10.1 Capillary blood glucose measurement by g lucometer (mass/volume) - 05/19/17 11:23 Capillary blood glucose measurement by glucometer (mas s/volume) 169 mg/dL 70-110 Capillary blood glucose measurement by g lucometer (mass/volume) - 05/19/17 16:13 Capillary blood glucose measurement by glucometer (mas s/volume) 222 mg/dL 70-110 Capillary blood glucose measurement by g lucometer (mass/volume) - 05/19/17 21:01 Capillary blood glucose measurement by glucometer (mas s/volume) 188 mg/dL 70-110 Capillary blood glucose measurement by g lucometer (mass/volume) - 05/20/17 05:30 Capillary blood glucose measurement by glucometer (mas s/volume) 181 mg/dL 70-110 PT panel in platelet poor plasma by coag ulation assay - 05/20/17 06:12 Prothrombin time (PT) in platelet poor plasma by coagu lation assay 26.8 s 12.2-14.7 INR in platelet poor plasma or blood by coagulation as say 2.5 0.8-1.4 Capillary blood glucose measurement by g lucometer (mass/volume) - 05/20/17 10:55 Capillary blood glucose measurement by glucometer (mas s/volume) 155 mg/dL 70-110 Capillary blood glucose measurement by g lucometer (mass/volume) - 06/05/17 07:09 Capillary blood glucose measurement by glucometer (mas s/volume) 108 mg/dL 70-110 PT panel in platelet poor plasma by coag ulation assay - 06/05/17 07:10 Prothrombin time (PT) in platelet poor plasma by coagu lation assay 28.4 s 12.2-14.7 INR in platelet poor plasma or blood by coagulation as say 2.7 0.8-1.4 Methicillin resistant Staphylococcus aur eus (MRSA) screening culture - 06/05/17 07:20 Methicillin resistant Staphylococcus aureus (MRSA) scr eening culture NEG NRG Complete blood count (CBC) with automate d white blood cell (WBC) differential - 06/09/17 12:20 Blood leukocytes automated count (number/volume) 4.9 10*3/uL 4.3-11.0 Blood erythrocytes automated count (number/volume) 3.85 10*6/uL 4.35-5.85 Venous blood hemoglobin measurement (mass/volume) 11.2 g/dL 11.5-16.0 Blood hematocrit (volume fraction) 34 % 35-52 Automated erythrocyte mean corpuscular volume 89 [ foz_us] 80-99 Automated erythrocyte mean corpuscular h emoglobin (mass per erythrocyte) 29 pg 25-34 Automated erythrocyte mean corpuscular h emoglobin concentration measurement (mass/volume) 33 g/dL 32-36 Automated erythrocyte distribution width ratio 15. 7 % 10.0- 14.5 Automated blood platelet count (count/volume) 322 10*3/uL 130-400 Automated blood platelet mean volume measurement 8.5 [foz_us] 7.4-10.4 Automated blood neutrophils/100 leukocytes 54 % 42-75 Automated blood lymphocytes/100 leukocytes 33 % 12-44 Blood monocytes/100 leukocytes 9 % 0-12 Automated blood eosinophils/100 leukocytes 4 % 0-10 Automated blood basophils/100 leukocytes 0 % 0-10 Blood neutrophils automated count (number/volume) 2.6 10*3 1.8-7.8 Blood lymphocytes automated count (number/volume) 1.6 10*3 1.0-4.0 Blood monocytes automated count (number/volume) 0. 5 10*3 0.0-1.0 Automated eosinophil count 0.2 10*3/uL 0 .0-0.3 Automated blood basophil count (count/volume) 0.0 10*3/uL 0.0-0.1 Capillary blood glucose measurement by g lucometer (mass/volume) - 08/07/17 14:15 Capillary blood glucose measurement by glucometer (mas s/volume) 122 mg/dL 70-110 Complete blood count (CBC) with automate d white blood cell (WBC) differential - 08/07/17 16:15 Blood leukocytes automated count (number/volume) 13.5 10*3/uL 4.3-11.0 Blood erythrocytes automated count (number/volume) 4.19 10*6/uL 4.35-5.85 Venous blood hemoglobin measurement (mass/volume) 11.8 g/dL 11.5-16.0 Blood hematocrit (volume fraction) 37 % 35-52 Automated erythrocyte mean corpuscular volume 88 [ foz_us] 80-99 Automated erythrocyte mean corpuscular h emoglobin (mass per erythrocyte) 28 pg 25-34 Automated erythrocyte mean corpuscular h emoglobin concentration measurement (mass/volume) 32 g/dL 32-36 Automated erythrocyte distribution width ratio 18. 4 % 10.0- 14.5 Automated blood platelet count (count/volume) 315 10*3/uL 130-400 Automated blood platelet mean volume measurement 8.7 [foz_us] 7.4-10.4 Automated blood neutrophils/100 leukocytes 86 % 42-75 Automated blood lymphocytes/100 leukocytes 8 % 12-44 Blood monocytes/100 leukocytes 5 % 0-12 Automated blood eosinophils/100 leukocytes 0 % 0-10 Automated blood basophils/100 leukocytes 0 % 0-10 Blood neutrophils automated count (number/volume) 11.7 10*3 1.8-7.8 Blood lymphocytes automated count (number/volume) 1.1 10*3 1.0-4.0 Blood monocytes automated count (number/volume) 0. 7 10*3 0.0-1.0 Automated eosinophil count 0.0 10*3/uL 0 .0-0.3 Automated blood basophil count (count/volume) 0.0 10*3/uL 0.0-0.1 Whole blood basic metabolic panel - 07/12 12/28 16:15 Serum or plasma sodium measurement (moles/volume) 138 mmol/L 135-145 Serum or plasma potassium measurement (moles/volume) 3.4 mmol/L 3.6-5.0 Serum or plasma chloride measurement (moles/volume) 107 mmol/L 98-107 Carbon dioxide 24 mmol/L 21-32 Serum or plasma anion gap determination (moles/volume) 7 mmol/L 5-14 Serum or plasma urea nitrogen measurement (mass/volume ) 7 mg/dL 7-18 Serum or plasma creatinine measurement (mass/volume) 0.62 mg/dL 0.60-1.30 Serum or plasma urea nitrogen/creatinine mass ratio 11 NRG Serum or plasma creatinine measurement w ith calculation of estimated glomerular filtration rate > NRG Serum or plasma glucose measurement (mass/volume) 124 mg/dL 70-105 Serum or plasma calcium measurement (mass/volume) 7.9 mg/dL 8.5-10.1 Automated blood complete blood count (he mogram) panel - 08/08/17 07:54 Blood leukocytes automated count (number/volume) 12.9 10*3/uL 4.3-11.0 Blood erythrocytes automated count (number/volume) 4.04 10*6/uL 4.35-5.85 Venous blood hemoglobin measurement (mass/volume) 11.3 g/dL 11.5-16.0 Blood hematocrit (volume fraction) 35 % 35-52 Automated erythrocyte mean corpuscular volume 87 [ foz_us] 80-99 Automated erythrocyte mean corpuscular h emoglobin (mass per erythrocyte) 28 pg 25-34 Automated erythrocyte mean corpuscular h emoglobin concentration measurement (mass/volume) 32 g/dL 32-36 Automated erythrocyte distribution width ratio 18. 2 % 10.0- 14.5 Automated blood platelet count (count/volume) 316 10*3/uL 130-400 Automated blood platelet mean volume measurement 8.5 [foz_us] 7.4-10.4 Whole blood basic metabolic panel - 07/12 01/28 07:54 Serum or plasma sodium measurement (moles/volume) 135 mmol/L 135-145 Serum or plasma potassium measurement (moles/volume) 3.4 mmol/L 3.6-5.0 Serum or plasma chloride measurement (moles/volume) 103 mmol/L 98-107 Carbon dioxide 26 mmol/L 21-32 Serum or plasma anion gap determination (moles/volume) 6 mmol/L 5-14 Serum or plasma urea nitrogen measurement (mass/volume ) 6 mg/dL 7-18 Serum or plasma creatinine measurement (mass/volume) 0.62 mg/dL 0.60-1.30 Serum or plasma urea nitrogen/creatinine mass ratio 10 NRG Serum or plasma creatinine measurement w ith calculation of estimated glomerular filtration rate > NRG Serum or plasma glucose measurement (mass/volume) 141 mg/dL 70-105 Serum or plasma calcium measurement (mass/volume) 8.6 mg/dL 8.5-10.1 Complete blood count (CBC) with automate d white blood cell (WBC) differential - 08/10/17 06:17 Blood leukocytes automated count (number/volume) 6.6 10*3/uL 4.3-11.0 Blood erythrocytes automated count (number/volume) 4.00 10*6/uL 4.35-5.85 Venous blood hemoglobin measurement (mass/volume) 11.1 g/dL 11.5-16.0 Blood hematocrit (volume fraction) 35 % 35-52 Automated erythrocyte mean corpuscular volume 87 [ foz_us] 80-99 Automated erythrocyte mean corpuscular h emoglobin (mass per erythrocyte) 28 pg 25-34 Automated erythrocyte mean corpuscular h emoglobin concentration measurement (mass/volume) 32 g/dL 32-36 Automated erythrocyte distribution width ratio 18. 0 % 10.0- 14.5 Automated blood platelet count (count/volume) 378 10*3/uL 130-400 Automated blood platelet mean volume measurement 8.6 [foz_us] 7.4-10.4 Automated blood neutrophils/100 leukocytes 65 % 42-75 Automated blood lymphocytes/100 leukocytes 23 % 12-44 Blood monocytes/100 leukocytes 9 % 0-12 Automated blood eosinophils/100 leukocytes 3 % 0-10 Automated blood basophils/100 leukocytes 0 % 0-10 Blood neutrophils automated count (number/volume) 4.3 10*3 1.8-7.8 Blood lymphocytes automated count (number/volume) 1.5 10*3 1.0-4.0 Blood monocytes automated count (number/volume) 0. 6 10*3 0.0-1.0 Automated eosinophil count 0.2 10*3/uL 0 .0-0.3 Automated blood basophil count (count/volume) 0.0 10*3/uL 0.0-0.1 Complete blood count (CBC) with automate d white blood cell (WBC) differential - 09/02/17 08:41 Blood leukocytes automated count (number/volume) 5.5 10*3/uL 4.3-11.0 Blood erythrocytes automated count (number/volume) 4.34 10*6/uL 4.35-5.85 Venous blood hemoglobin measurement (mass/volume) 12.0 g/dL 11.5-16.0 Blood hematocrit (volume fraction) 37 % 35-52 Automated erythrocyte mean corpuscular volume 86 [ foz_us] 80-99 Automated erythrocyte mean corpuscular h emoglobin (mass per erythrocyte) 28 pg 25-34 Automated erythrocyte mean corpuscular h emoglobin concentration measurement (mass/volume) 32 g/dL 32-36 Automated erythrocyte distribution width ratio 18. 1 % 10.0- 14.5 Automated blood platelet count (count/volume) 311 10*3/uL 130-400 Automated blood platelet mean volume measurement 9.3 [foz_us] 7.4-10.4 Automated blood neutrophils/100 leukocytes 42 % 42-75 Automated blood lymphocytes/100 leukocytes 35 % 12-44 Blood monocytes/100 leukocytes 9 % 0-12 Automated blood eosinophils/100 leukocytes 13 % 0-10 Automated blood basophils/100 leukocytes 1 % 0-10 Blood neutrophils automated count (number/volume) 2.3 10*3 1.8-7.8 Blood lymphocytes automated count (number/volume) 1.9 10*3 1.0-4.0 Blood monocytes automated count (number/volume) 0. 5 10*3 0.0-1.0 Automated eosinophil count 0.7 10*3/uL 0 .0-0.3 Automated blood basophil count (count/volume) 0.1 10*3/uL 0.0-0.1 Whole blood basic metabolic panel - 08/12 07/28 08:41 Serum or plasma sodium measurement (moles/volume) 140 mmol/L 135-145 Serum or plasma potassium measurement (moles/volume) 3.8 mmol/L 3.6-5.0 Serum or plasma chloride measurement (moles/volume) 109 mmol/L 98-107 Carbon dioxide 25 mmol/L 21-32 Serum or plasma anion gap determination (moles/volume) 6 mmol/L 5-14 Serum or plasma urea nitrogen measurement (mass/volume ) 13 mg/dL 7-18 Serum or plasma creatinine measurement (mass/volume) 0.63 mg/dL 0.60-1.30 Serum or plasma urea nitrogen/creatinine mass ratio 21 NRG Serum or plasma creatinine measurement w ith calculation of estimated glomerular filtration rate > NRG Serum or plasma glucose measurement (mass/volume) 103 mg/dL 70-105 Serum or plasma calcium measurement (mass/volume) 9.1 mg/dL 8.5-10.1 Serum or plasma C reactive protein measu rement (mass/volume) - 09/02/17 08:41 Serum or plasma C reactive protein measurement (mass/v olume) 0.07 mg/dL 0.00-0.50 PT panel in platelet poor plasma by coag ulation assay - 09/02/17 08:41 Prothrombin time (PT) in platelet poor plasma by coagu lation assay 28.7 s 12.2-14.7 INR in platelet poor plasma or blood by coagulation as say 2.7 0.8-1.4 Blood manual differential performed dete ction - 09/02/17 08:41 Blood monocytes/100 leukocytes 4 % NRG Manual blood segmented neutrophils/100 leukocytes 51 % NRG Blood band neutrophils/100 leukocytes 0 % NRG Manual blood lymphocytes/100 leukocytes 33 % NRG Manual eosinophils/100 leukocytes in nose 11 % NRG Manual blood basophils/100 leukocytes 1 % NRG Blood anisocytosis detection by light microscopy M ODERATE NRG Complete blood count (CBC) with automate d white blood cell (WBC) differential - 11/16/17 19:05 Blood leukocytes automated count (number/volume) 8.3 10*3/uL 4.3-11.0 Blood erythrocytes automated count (number/volume) 4.70 10*6/uL 4.35-5.85 Venous blood hemoglobin measurement (mass/volume) 13.3 g/dL 11.5-16.0 Blood hematocrit (volume fraction) 41 % 35-52 Automated erythrocyte mean corpuscular volume 87 [ foz_us] 80-99 Automated erythrocyte mean corpuscular h emoglobin (mass per erythrocyte) 28 pg 25-34 Automated erythrocyte mean corpuscular h emoglobin concentration measurement (mass/volume) 33 g/dL 32-36 Automated erythrocyte distribution width ratio 15. 7 % 10.0- 14.5 Automated blood platelet count (count/volume) 303 10*3/uL 130-400 Automated blood platelet mean volume measurement 9.1 [foz_us] 7.4-10.4 Automated blood neutrophils/100 leukocytes 51 % 42-75 Automated blood lymphocytes/100 leukocytes 31 % 12-44 Blood monocytes/100 leukocytes 8 % 0-12 Automated blood eosinophils/100 leukocytes 9 % 0-10 Automated blood basophils/100 leukocytes 1 % 0-10 Blood neutrophils automated count (number/volume) 4.3 10*3 1.8-7.8 Blood lymphocytes automated count (number/volume) 2.6 10*3 1.0-4.0 Blood monocytes automated count (number/volume) 0. 7 10*3 0.0-1.0 Automated eosinophil count 0.7 10*3/uL 0 .0-0.3 Automated blood basophil count (count/volume) 0.0 10*3/uL 0.0-0.1 Blood lactic acid measurement (moles/vol ume) - 11/16/17 19:05 Blood lactic acid measurement (moles/volume) 1.12 mmol/L 0.50-2.00 Comprehensive metabolic panel - 11/16/17 19:05 Serum or plasma sodium measurement (moles/volume) 145 mmol/L 135-145 Serum or plasma potassium measurement (moles/volume) 3.7 mmol/L 3.6-5.0 Serum or plasma chloride measurement (moles/volume) 110 mmol/L 98-107 Carbon dioxide 24 mmol/L 21-32 Serum or plasma anion gap determination (moles/volume) 11 mmol/L 5-14 Serum or plasma urea nitrogen measurement (mass/volume ) 15 mg/dL 7-18 Serum or plasma creatinine measurement (mass/volume) 0.76 mg/dL 0.60-1.30 Serum or plasma urea nitrogen/creatinine mass ratio 20 NRG Serum or plasma creatinine measurement w ith calculation of estimated glomerular filtration rate > NRG Serum or plasma glucose measurement (mass/volume) 94 mg/dL 70-105 Serum or plasma calcium measurement (mass/volume) 10.0 mg/dL 8.5-10.1 Serum or plasma total bilirubin measurement (mass/volu me) 0.5 mg/dL 0.1-1.0 Serum or plasma alkaline phosphatase niurka surement (enzymatic activity/volume) 80 U/L 40-136 Serum or plasma aspartate aminotransfera se measurement (enzymatic activity/volume) 21 U/L 5-34 Serum or plasma alanine aminotransferase measurement (enzymatic activity/volume) 24 U/L 0-55 Serum or plasma protein measurement (mass/volume) 7.4 g/dL 6.4-8.2 Serum or plasma albumin measurement (mass/volume) 4.0 g/dL 3.2-4.5 Serum or plasma lithium measurement (mol es/volume) - 11/16/17 19:05 BNP level < pg/mL <100.0 Bacterial blood culture - 11/16/17 19:05 Bacterial blood culture NG NRG Bacterial blood culture - 11/16/17 19:16 Bacterial blood culture NG NRG Complete blood count (CBC) with automate d white blood cell (WBC) differential - 11/17/17 03:45 Blood leukocytes automated count (number/volume) 5.2 10*3/uL 4.3-11.0 Blood erythrocytes automated count (number/volume) 4.34 10*6/uL 4.35-5.85 Venous blood hemoglobin measurement (mass/volume) 12.4 g/dL 11.5-16.0 Blood hematocrit (volume fraction) 38 % 35-52 Automated erythrocyte mean corpuscular volume 88 [ foz_us] 80-99 Automated erythrocyte mean corpuscular h emoglobin (mass per erythrocyte) 29 pg 25-34 Automated erythrocyte mean corpuscular h emoglobin concentration measurement (mass/volume) 33 g/dL 32-36 Automated erythrocyte distribution width ratio 15. 4 % 10.0- 14.5 Automated blood platelet count (count/volume) 259 10*3/uL 130-400 Automated blood platelet mean volume measurement 9.4 [foz_us] 7.4-10.4 Automated blood neutrophils/100 leukocytes 90 % 42-75 Automated blood lymphocytes/100 leukocytes 10 % 12-44 Blood monocytes/100 leukocytes 1 % 0-12 Automated blood eosinophils/100 leukocytes 0 % 0-10 Automated blood basophils/100 leukocytes 0 % 0-10 Blood neutrophils automated count (number/volume) 4.7 10*3 1.8-7.8 Blood lymphocytes automated count (number/volume) 0.5 10*3 1.0-4.0 Blood monocytes automated count (number/volume) 0. 0 10*3 0.0-1.0 Automated eosinophil count 0.0 10*3/uL 0 .0-0.3 Automated blood basophil count (count/volume) 0.0 10*3/uL 0.0-0.1 Comprehensive metabolic panel - 11/17/17 03:45 Serum or plasma sodium measurement (moles/volume) 142 mmol/L 135-145 Serum or plasma potassium measurement (moles/volume) 3.7 mmol/L 3.6-5.0 Serum or plasma chloride measurement (moles/volume) 110 mmol/L 98-107 Carbon dioxide 20 mmol/L 21-32 Serum or plasma anion gap determination (moles/volume) 12 mmol/L 5-14 Serum or plasma urea nitrogen measurement (mass/volume ) 14 mg/dL 7-18 Serum or plasma creatinine measurement (mass/volume) 0.76 mg/dL 0.60-1.30 Serum or plasma urea nitrogen/creatinine mass ratio 18 NRG Serum or plasma creatinine measurement w ith calculation of estimated glomerular filtration rate > NRG Serum or plasma glucose measurement (mass/volume) 250 mg/dL 70-105 Serum or plasma calcium measurement (mass/volume) 9.2 mg/dL 8.5-10.1 Serum or plasma total bilirubin measurement (mass/volu me) 0.3 mg/dL 0.1-1.0 Serum or plasma alkaline phosphatase niurka surement (enzymatic activity/volume) 75 U/L 40-136 Serum or plasma aspartate aminotransfera se measurement (enzymatic activity/volume) 19 U/L 5-34 Serum or plasma alanine aminotransferase measurement (enzymatic activity/volume) 22 U/L 0-55 Serum or plasma protein measurement (mass/volume) 7.2 g/dL 6.4-8.2 Serum or plasma albumin measurement (mass/volume) 3.8 g/dL 3.2-4.5 Blood manual differential performed dete ction - 11/17/17 03:45 Blood monocytes/100 leukocytes 2 % NRG Manual blood segmented neutrophils/100 leukocytes 88 % NRG Manual blood lymphocytes/100 leukocytes 10 % NRG Blood erythrocyte morphology finding identification NORMAL NRG Gram stain microscopy - 02/01/18 09:50 Gram stain microscopy No bacteria seen NRG Bacteria identification in wound by cult ure - 02/01/18 09:50 Bacteria identification in wound by culture NG NRG Complete blood count (CBC) with automate d white blood cell (WBC) differential - 02/27/18 01:44 Blood leukocytes automated count (number/volume) 10.4 10*3/uL 4.3-11.0 Blood erythrocytes automated count (number/volume) 4.24 10*6/uL 4.35-5.85 Venous blood hemoglobin measurement (mass/volume) 12.5 g/dL 11.5-16.0 Blood hematocrit (volume fraction) 38 % 35-52 Automated erythrocyte mean corpuscular volume 91 [ foz_us] 80-99 Automated erythrocyte mean corpuscular h emoglobin (mass per erythrocyte) 29 pg 25-34 Automated erythrocyte mean corpuscular h emoglobin concentration measurement (mass/volume) 33 g/dL 32-36 Automated erythrocyte distribution width ratio 15. 1 % 10.0- 14.5 Automated blood platelet count (count/volume) 409 10*3/uL 130-400 Automated blood platelet mean volume measurement 8.7 [foz_us] 7.4-10.4 Automated blood neutrophils/100 leukocytes 48 % 42-75 Automated blood lymphocytes/100 leukocytes 42 % 12-44 Blood monocytes/100 leukocytes 9 % 0-12 Automated blood eosinophils/100 leukocytes 1 % 0-10 Automated blood basophils/100 leukocytes 0 % 0-10 Blood neutrophils automated count (number/volume) 5.0 10*3 1.8-7.8 Blood lymphocytes automated count (number/volume) 4.4 10*3 1.0-4.0 Blood monocytes automated count (number/volume) 1. 0 10*3 0.0-1.0 Automated eosinophil count 0.1 10*3/uL 0 .0-0.3 Automated blood basophil count (count/volume) 0.0 10*3/uL 0.0-0.1 PT panel in platelet poor plasma by coag ulation assay - 02/27/18 01:44 Prothrombin time (PT) in platelet poor plasma by coagu lation assay 22.9 s 12.2-14.7 INR in platelet poor plasma or blood by coagulation as say 2.0 0.8-1.4 Activated partial thromboplastin time (a PTT) in platelet poor plasma bycoagulation assay - 02/27/18 01:44 Activated partial thromboplastin time (a PTT) in platelet poor plasma bycoagulation assay 29 s 24-35 Bacteria identification in isolate by an aerobe culture - 03/10/18 10:05 Bacteria identification in isolate by anaerobe culture NOANA NRG Gram stain microscopy - 03/10/18 10:05 Gram stain microscopy No bacteria seen NRG Bacteria identification in wound by cult ure - 03/10/18 10:05 Bacteria identification in wound by culture NG NRG Activated partial thromboplastin time (a PTT) in platelet poor plasma bycoagulation assay - 03/10/18 10:45 Activated partial thromboplastin time (a PTT) in platelet poor plasma bycoagulation assay 39 s 24-35 PT panel in platelet poor plasma by coag ulation assay - 03/13/18 09:20 Prothrombin time (PT) in platelet poor plasma by coagu lation assay 32.2 s 12.2-14.7 INR in platelet poor plasma or blood by coagulation as say 3.1 0.8-1.4 PT panel in platelet poor plasma by coag ulation assay - 03/17/18 09:05 Prothrombin time (PT) in platelet poor plasma by coagu lation assay 33.0 s 12.2-14.7 INR in platelet poor plasma or blood by coagulation as say 3.2 0.8-1.4 PT panel in platelet poor plasma by coag ulation assay - 04/14/18 05:55 Prothrombin time (PT) in platelet poor plasma by coagu lation assay 20.5 s 12.2-14.7 INR in platelet poor plasma or blood by coagulation as say 1.8 0.8-1.4 Activated partial thromboplastin time (a PTT) in platelet poor plasma bycoagulation assay - 04/14/18 05:55 Activated partial thromboplastin time (a PTT) in platelet poor plasma bycoagulation assay 32 s 24-35 Blood lactic acid measurement (moles/vol ume) - 04/14/18 05:55 Blood lactic acid measurement (moles/volume) 1.66 mmol/L 0.50-2.00 Serum or plasma troponin i.cardiac measu rement (mass/volume) - 04/14/18 05:55 Serum or plasma troponin i.cardiac measurement (mass/v olume) < ng/mL <0.30 Complete blood count (CBC) with automate d white blood cell (WBC) differential - 04/14/18 05:55 Blood leukocytes automated count (number/volume) 8.3 10*3/uL 4.3-11.0 Blood erythrocytes automated count (number/volume) 4.59 10*6/uL 4.35-5.85 Venous blood hemoglobin measurement (mass/volume) 13.2 g/dL 11.5-16.0 Blood hematocrit (volume fraction) 42 % 35-52 Automated erythrocyte mean corpuscular volume 91 [ foz_us] 80-99 Automated erythrocyte mean corpuscular h emoglobin (mass per erythrocyte) 29 pg 25-34 Automated erythrocyte mean corpuscular h emoglobin concentration measurement (mass/volume) 32 g/dL 32-36 Automated erythrocyte distribution width ratio 14. 3 % 10.0- 14.5 Automated blood platelet count (count/volume) 311 10*3/uL 130-400 Automated blood platelet mean volume measurement 9.1 [foz_us] 7.4-10.4 Automated blood neutrophils/100 leukocytes 61 % 42-75 Automated blood lymphocytes/100 leukocytes 22 % 12-44 Blood monocytes/100 leukocytes 12 % 0-12 Automated blood eosinophils/100 leukocytes 4 % 0-10 Automated blood basophils/100 leukocytes 0 % 0-10 Blood neutrophils automated count (number/volume) 5.1 10*3 1.8-7.8 Blood lymphocytes automated count (number/volume) 1.8 10*3 1.0-4.0 Blood monocytes automated count (number/volume) 1. 0 10*3 0.0-1.0 Automated eosinophil count 0.4 10*3/uL 0 .0-0.3 Automated blood basophil count (count/volume) 0.0 10*3/uL 0.0-0.1 Comprehensive metabolic panel - 04/14/18 05:55 Serum or plasma sodium measurement (moles/volume) 141 mmol/L 135-145 Serum or plasma potassium measurement (moles/volume) 3.5 mmol/L 3.6-5.0 Serum or plasma chloride measurement (moles/volume) 103 mmol/L 98-107 Carbon dioxide 27 mmol/L 21-32 Serum or plasma anion gap determination (moles/volume) 11 mmol/L 5-14 Serum or plasma urea nitrogen measurement (mass/volume ) 13 mg/dL 7-18 Serum or plasma creatinine measurement (mass/volume) 0.95 mg/dL 0.60-1.30 Serum or plasma urea nitrogen/creatinine mass ratio 14 NRG Serum or plasma creatinine measurement w ith calculation of estimated glomerular filtration rate 60 NRG Serum or plasma glucose measurement (mass/volume) 110 mg/dL 70-105 Serum or plasma calcium measurement (mass/volume) 9.7 mg/dL 8.5-10.1 Serum or plasma total bilirubin measurement (mass/volu me) 0.5 mg/dL 0.1-1.0 Serum or plasma alkaline phosphatase niurka surement (enzymatic activity/volume) 74 U/L 40-136 Serum or plasma aspartate aminotransfera se measurement (enzymatic activity/volume) 18 U/L 5-34 Serum or plasma alanine aminotransferase measurement (enzymatic activity/volume) 18 U/L 0-55 Serum or plasma protein measurement (mass/volume) 7.3 g/dL 6.4-8.2 Serum or plasma albumin measurement (mass/volume) 4.1 g/dL 3.2-4.5 CALCIUM CORRECTED 9.6 mg/dL 8.5-10.1 Bacterial blood culture - 04/14/18 05:55 Bacterial blood culture NG NRG Bacterial blood culture - 04/14/18 06:15 Bacterial blood culture NG NRG Complete urinalysis with reflex to cultu re - 04/14/18 10:30 Urine color determination YELLOW NRG Urine clarity determination CLEAR NR G Urine pH measurement by test strip 6.5 5-9 Specific gravity of urine by test strip 1.015 1.016-1.022 Urine protein assay by test strip, semi-quantitative NEGATIVE NEGATIVE Urine glucose detection by automated test strip NE GATIVE NEGATIVE Erythrocytes detection in urine sediment by light micr oscopy NEGATIVE NEGATIVE Urine ketones detection by automated test strip NE GATIVE NEGATIVE Urine nitrite detection by test strip NEGATIVE NEGATIVE Urine total bilirubin detection by test strip NEGA TIVE NEGATIVE Urine urobilinogen measurement by automated test strip (mass/volume) NORMAL NORMAL Urine leukocyte esterase detection by dipstick 1+ NEGATIVE Automated urine sediment erythrocyte cou nt by microscopy (number/high power field) NONE NRG Automated urine sediment leukocyte count by microscopy (number/high power field) [HPF] NRG Bacteria detection in urine sediment by light microsco py TRACE NRG Squamous epithelial cells detection in u rine sediment by light microscopy 2-5 NRG Crystals detection in urine sediment by light microsco py NONE NRG Casts detection in urine sediment by light microscopy NONE NRG Mucus detection in urine sediment by light microscopy NEGATIVE NRG Complete urinalysis with reflex to culture NO NRG Bacterial urine culture - 04/14/18 10:30 Bacterial urine culture NG NRG Complete blood count (CBC) with automate d white blood cell (WBC) differential - 04/15/18 05:49 Blood leukocytes automated count (number/volume) 11.7 10*3/uL 4.3-11.0 Blood erythrocytes automated count (number/volume) 4.17 10*6/uL 4.35-5.85 Venous blood hemoglobin measurement (mass/volume) 12.3 g/dL 11.5-16.0 Blood hematocrit (volume fraction) 38 % 35-52 Automated erythrocyte mean corpuscular volume 90 [ foz_us] 80-99 Automated erythrocyte mean corpuscular h emoglobin (mass per erythrocyte) 29 pg 25-34 Automated erythrocyte mean corpuscular h emoglobin concentration measurement (mass/volume) 33 g/dL 32-36 Automated erythrocyte distribution width ratio 14. 2 % 10.0- 14.5 Automated blood platelet count (count/volume) 287 10*3/uL 130-400 Automated blood platelet mean volume measurement 9.1 [foz_us] 7.4-10.4 Automated blood neutrophils/100 leukocytes 90 % 42-75 Automated blood lymphocytes/100 leukocytes 6 % 12-44 Blood monocytes/100 leukocytes 4 % 0-12 Automated blood eosinophils/100 leukocytes 0 % 0-10 Automated blood basophils/100 leukocytes 0 % 0-10 Blood neutrophils automated count (number/volume) 10.6 10*3 1.8-7.8 Blood lymphocytes automated count (number/volume) 0.7 10*3 1.0-4.0 Blood monocytes automated count (number/volume) 0. 4 10*3 0.0-1.0 Automated eosinophil count 0.0 10*3/uL 0 .0-0.3 Automated blood basophil count (count/volume) 0.0 10*3/uL 0.0-0.1 Comprehensive metabolic panel - 04/15/18 05:49 Serum or plasma sodium measurement (moles/volume) 141 mmol/L 135-145 Serum or plasma potassium measurement (moles/volume) 3.9 mmol/L 3.6-5.0 Serum or plasma chloride measurement (moles/volume) 108 mmol/L 98-107 Carbon dioxide 23 mmol/L 21-32 Serum or plasma anion gap determination (moles/volume) 10 mmol/L 5-14 Serum or plasma urea nitrogen measurement (mass/volume ) 14 mg/dL 7-18 Serum or plasma creatinine measurement (mass/volume) 0.71 mg/dL 0.60-1.30 Serum or plasma urea nitrogen/creatinine mass ratio 20 NRG Serum or plasma creatinine measurement w ith calculation of estimated glomerular filtration rate > NRG Serum or plasma glucose measurement (mass/volume) 152 mg/dL 70-105 Serum or plasma calcium measurement (mass/volume) 10.0 mg/dL 8.5-10.1 Serum or plasma total bilirubin measurement (mass/volu me) 0.3 mg/dL 0.1-1.0 Serum or plasma alkaline phosphatase niurka surement (enzymatic activity/volume) 66 U/L 40-136 Serum or plasma aspartate aminotransfera se measurement (enzymatic activity/volume) 13 U/L 5-34 Serum or plasma alanine aminotransferase measurement (enzymatic activity/volume) 17 U/L 0-55 Serum or plasma protein measurement (mass/volume) 7.1 g/dL 6.4-8.2 Serum or plasma albumin measurement (mass/volume) 3.7 g/dL 3.2-4.5 CALCIUM CORRECTED 10.2 mg/dL 8.5-10.1 Complete blood count (CBC) with automate d white blood cell (WBC) differential - 07/07/18 18:35 Blood leukocytes automated count (number/volume) 7.5 10*3/uL 4.3-11.0 Blood erythrocytes automated count (number/volume) 4.40 10*6/uL 4.35-5.85 Venous blood hemoglobin measurement (mass/volume) 12.8 g/dL 11.5-16.0 Blood hematocrit (volume fraction) 39 % 35-52 Automated erythrocyte mean corpuscular volume 89 [ foz_us] 80-99 Automated erythrocyte mean corpuscular h emoglobin (mass per erythrocyte) 29 pg 25-34 Automated erythrocyte mean corpuscular h emoglobin concentration measurement (mass/volume) 33 g/dL 32-36 Automated erythrocyte distribution width ratio 14. 9 % 10.0- 14.5 Automated blood platelet count (count/volume) 251 10*3/uL 130-400 Automated blood platelet mean volume measurement 8.9 [foz_us] 7.4-10.4 Automated blood neutrophils/100 leukocytes 52 % 42-75 Automated blood lymphocytes/100 leukocytes 32 % 12-44 Blood monocytes/100 leukocytes 10 % 0-12 Automated blood eosinophils/100 leukocytes 6 % 0-10 Automated blood basophils/100 leukocytes 0 % 0-10 Blood neutrophils automated count (number/volume) 3.9 10*3 1.8-7.8 Blood lymphocytes automated count (number/volume) 2.4 10*3 1.0-4.0 Blood monocytes automated count (number/volume) 0. 7 10*3 0.0-1.0 Automated eosinophil count 0.5 10*3/uL 0 .0-0.3 Automated blood basophil count (count/volume) 0.0 10*3/uL 0.0-0.1 Comprehensive metabolic panel - 07/07/18 18:35 Serum or plasma sodium measurement (moles/volume) 144 mmol/L 135-145 Serum or plasma potassium measurement (moles/volume) 3.4 mmol/L 3.6-5.0 Serum or plasma chloride measurement (moles/volume) 109 mmol/L 98-107 Carbon dioxide 24 mmol/L 21-32 Serum or plasma anion gap determination (moles/volume) 11 mmol/L 5-14 Serum or plasma urea nitrogen measurement (mass/volume ) 7 mg/dL 7-18 Serum or plasma creatinine measurement (mass/volume) 0.65 mg/dL 0.60-1.30 Serum or plasma urea nitrogen/creatinine mass ratio 11 NRG Serum or plasma creatinine measurement w ith calculation of estimated glomerular filtration rate > NRG Serum or plasma glucose measurement (mass/volume) 112 mg/dL 70-105 Serum or plasma calcium measurement (mass/volume) 9.3 mg/dL 8.5-10.1 Serum or plasma total bilirubin measurement (mass/volu me) 0.4 mg/dL 0.1-1.0 Serum or plasma alkaline phosphatase niurka surement (enzymatic activity/volume) 76 U/L 40-136 Serum or plasma aspartate aminotransfera se measurement (enzymatic activity/volume) 20 U/L 5-34 Serum or plasma alanine aminotransferase measurement (enzymatic activity/volume) 24 U/L 0-55 Serum or plasma protein measurement (mass/volume) 7.2 g/dL 6.4-8.2 Serum or plasma albumin measurement (mass/volume) 3.8 g/dL 3.2-4.5 CALCIUM CORRECTED 9.5 mg/dL 8.5-10.1 Serum or plasma C reactive protein measu rement (mass/volume) - 07/07/18 18:35 Serum or plasma C reactive protein measurement (mass/v olume) 0.29 mg/dL 0.00-0.50 Arterial blood gas measurement - 9 19:14 Blood pCO2 50 mm[Hg] 35-45 Blood pO2 36 mm[Hg] 79-93 Arterial blood bicarbonate measurement (moles/volume) 27 mmol/L 23-27 Arterial blood base excess by calculation 1.7 mmol /L -2.5-2.5 Arterial blood oxygen saturation measurement 58 % 94-100 * Inhaled oxygen flow rate 4L NRG Arterial blood pH measurement with patient temperature correction 7.35 7.37-7.43 Arterial blood carbon dioxide, total measurement (mole s/volume) 28.3 mmol/L 21.0-31.0 Body site R BRACH NRG Assessment of wrist artery patency prior to arterial p uncture YES-POS NRG Setting of ventilation mode NO NR G Measurement of body temperature 98.5 NRG Influenza virus A and B antigen detectio n - 07/07/18 19:20 FLU RESULT NEGATIVE FOR INFLUENZA A AND B ANTIGENS BY IA NRG Arterial blood gas measurement - 9 20:20 Blood pCO2 39 mm[Hg] 35-45 Blood pO2 76 mm[Hg] 79-93 Arterial blood bicarbonate measurement (moles/volume) 24 mmol/L 23-27 Arterial blood base excess by calculation 0.0 mmol /L -2.5-2.5 Arterial blood oxygen saturation measurement 94 % 94-100 * Inhaled oxygen flow rate 3L NRG Arterial blood pH measurement with patient temperature correction 7.41 7.37-7.43 Arterial blood carbon dioxide, total measurement (mole s/volume) 25.3 mmol/L 21.0-31.0 Body site LEFT RADIAL NRG Assessment of wrist artery patency prior to arterial p uncture YES-POS NRG Setting of ventilation mode NO NR G Measurement of body temperature 98.5 NRG Complete blood count (CBC) with automate d white blood cell (WBC) differential - 07/08/18 05:50 Blood leukocytes automated count (number/volume) 4.1 10*3/uL 4.3-11.0 Blood erythrocytes automated count (number/volume) 4.21 10*6/uL 4.35-5.85 Venous blood hemoglobin measurement (mass/volume) 12.1 g/dL 11.5-16.0 Blood hematocrit (volume fraction) 38 % 35-52 Automated erythrocyte mean corpuscular volume 91 [ foz_us] 80-99 Automated erythrocyte mean corpuscular h emoglobin (mass per erythrocyte) 29 pg 25-34 Automated erythrocyte mean corpuscular h emoglobin concentration measurement (mass/volume) 32 g/dL 32-36 Automated erythrocyte distribution width ratio 14. 9 % 10.0- 14.5 Automated blood platelet count (count/volume) 244 10*3/uL 130-400 Automated blood platelet mean volume measurement 9.0 [foz_us] 7.4-10.4 Automated blood neutrophils/100 leukocytes 83 % 42-75 Automated blood lymphocytes/100 leukocytes 14 % 12-44 Blood monocytes/100 leukocytes 3 % 0-12 Automated blood eosinophils/100 leukocytes 0 % 0-10 Automated blood basophils/100 leukocytes 0 % 0-10 Blood neutrophils automated count (number/volume) 3.4 10*3 1.8-7.8 Blood lymphocytes automated count (number/volume) 0.6 10*3 1.0-4.0 Blood monocytes automated count (number/volume) 0. 1 10*3 0.0-1.0 Automated eosinophil count 0.0 10*3/uL 0 .0-0.3 Automated blood basophil count (count/volume) 0.0 10*3/uL 0.0-0.1 Comprehensive metabolic panel - 02/26/19 05:50 Serum or plasma sodium measurement (moles/volume) 141 mmol/L 135-145 Serum or plasma potassium measurement (moles/volume) 4.0 mmol/L 3.6-5.0 Serum or plasma chloride measurement (moles/volume) 110 mmol/L 98-107 Carbon dioxide 19 mmol/L 21-32 Serum or plasma anion gap determination (moles/volume) 12 mmol/L 5-14 Serum or plasma urea nitrogen measurement (mass/volume ) 10 mg/dL 7-18 Serum or plasma creatinine measurement (mass/volume) 0.61 mg/dL 0.60-1.30 Serum or plasma urea nitrogen/creatinine mass ratio 16 NRG Serum or plasma creatinine measurement w ith calculation of estimated glomerular filtration rate > NRG Serum or plasma glucose measurement (mass/volume) 151 mg/dL 70-105 Serum or plasma calcium measurement (mass/volume) 8.8 mg/dL 8.5-10.1 Serum or plasma total bilirubin measurement (mass/volu me) 0.3 mg/dL 0.1-1.0 Serum or plasma alkaline phosphatase niurka surement (enzymatic activity/volume) 69 U/L 40-136 Serum or plasma aspartate aminotransfera se measurement (enzymatic activity/volume) 23 U/L 5-34 Serum or plasma alanine aminotransferase measurement (enzymatic activity/volume) 22 U/L 0-55 Serum or plasma protein measurement (mass/volume) 7.0 g/dL 6.4-8.2 Serum or plasma albumin measurement (mass/volume) 3.7 g/dL 3.2-4.5 CALCIUM CORRECTED 9.0 mg/dL 8.5-10.1 Influenza virus A and B antigen detectio n - 07/18/18 01:10 CALL POSITIVES (F1 HELP) CALLED TO [facility] IN ER@0 140 NRG FLU RESULT POSITIVE FOR INFLUENZA A ANT IGEN, NEG FOR B ANTIGEN, BY IA NR Complete blood count (CBC) with automate d white blood cell (WBC) differential - 07/18/18 01:35 Blood leukocytes automated count (number/volume) 7.6 10*3/uL 4.3-11.0 Blood erythrocytes automated count (number/volume) 4.31 10*6/uL 4.35-5.85 Venous blood hemoglobin measurement (mass/volume) 12.2 g/dL 11.5-16.0 Blood hematocrit (volume fraction) 39 % 35-52 Automated erythrocyte mean corpuscular volume 89 [ foz_us] 80-99 Automated erythrocyte mean corpuscular h emoglobin (mass per erythrocyte) 28 pg 25-34 Automated erythrocyte mean corpuscular h emoglobin concentration measurement (mass/volume) 32 g/dL 32-36 Automated erythrocyte distribution width ratio 15. 7 % 10.0- 14.5 Automated blood platelet count (count/volume) 291 10*3/uL 130-400 Automated blood platelet mean volume measurement 8.9 [foz_us] 7.4-10.4 Automated blood neutrophils/100 leukocytes 68 % 42-75 Automated blood lymphocytes/100 leukocytes 15 % 12-44 Blood monocytes/100 leukocytes 15 % 0-12 Automated blood eosinophils/100 leukocytes 3 % 0-10 Automated blood basophils/100 leukocytes 0 % 0-10 Blood neutrophils automated count (number/volume) 5.1 10*3 1.8-7.8 Blood lymphocytes automated count (number/volume) 1.1 10*3 1.0-4.0 Blood monocytes automated count (number/volume) 1. 1 10*3 0.0-1.0 Automated eosinophil count 0.2 10*3/uL 0 .0-0.3 Automated blood basophil count (count/volume) 0.0 10*3/uL 0.0-0.1 PT panel in platelet poor plasma by coag ulation assay - 07/18/18 01:35 Prothrombin time (PT) in platelet poor plasma by coagu lation assay 18.3 s 12.2-14.7 INR in platelet poor plasma or blood by coagulation as say 1.5 0.8-1.4 Activated partial thromboplastin time (a PTT) in platelet poor plasma bycoagulation assay - 07/18/18 01:35 Activated partial thromboplastin time (a PTT) in platelet poor plasma bycoagulation assay 28 s 24-35 Blood lactic acid measurement (moles/vol ume) - 07/18/18 01:35 Blood lactic acid measurement (moles/volume) 0.92 mmol/L 0.50-2.00 Comprehensive metabolic panel - 07/18/18 01:35 Serum or plasma sodium measurement (moles/volume) 133 mmol/L 135-145 Serum or plasma potassium measurement (moles/volume) 4.2 mmol/L 3.6-5.0 Serum or plasma chloride measurement (moles/volume) 99 mmol/L 98-107 Carbon dioxide 22 mmol/L 21-32 Serum or plasma anion gap determination (moles/volume) 12 mmol/L 5-14 Serum or plasma urea nitrogen measurement (mass/volume ) 10 mg/dL 7-18 Serum or plasma creatinine measurement (mass/volume) 0.65 mg/dL 0.60-1.30 Serum or plasma urea nitrogen/creatinine mass ratio 15 NRG Serum or plasma creatinine measurement w ith calculation of estimated glomerular filtration rate > NRG Serum or plasma glucose measurement (mass/volume) 88 mg/dL 70-105 Serum or plasma calcium measurement (mass/volume) 8.7 mg/dL 8.5-10.1 Serum or plasma total bilirubin measurement (mass/volu me) 0.6 mg/dL 0.1-1.0 Serum or plasma alkaline phosphatase niurka surement (enzymatic activity/volume) 63 U/L 40-136 Serum or plasma aspartate aminotransfera se measurement (enzymatic activity/volume) 24 U/L 5-34 Serum or plasma alanine aminotransferase measurement (enzymatic activity/volume) 19 U/L 0-55 Serum or plasma protein measurement (mass/volume) 6.7 g/dL 6.4-8.2 Serum or plasma albumin measurement (mass/volume) 3.7 g/dL 3.2-4.5 CALCIUM CORRECTED 8.9 mg/dL 8.5-10.1 Magnesium - 07/18/18 01:35 Magnesium 2.2 mg/dL 1.8-2.4 Bacterial blood culture - 07/18/18 01:35 Bacterial blood culture NG NRG Bacterial blood culture - 07/18/18 01:54 Bacterial blood culture NG NRG Complete urinalysis with reflex to cultu re - 07/30/18 09:54 Urine color determination YELLOW NRG Urine clarity determination CLEAR NR G Urine pH measurement by test strip 5 5-9 Specific gravity of urine by test strip 1.020 1.016-1.022 Urine protein assay by test strip, semi-quantitative NEGATIVE NEGATIVE Urine glucose detection by automated test strip NE GATIVE NEGATIVE Erythrocytes detection in urine sediment by light micr oscopy 2+ NEGATIVE Urine ketones detection by automated test strip NE GATIVE NEGATIVE Urine nitrite detection by test strip NEGATIVE NEGATIVE Urine total bilirubin detection by test strip NEGA TIVE NEGATIVE Urine urobilinogen measurement by automated test strip (mass/volume) 1 mg/dL NORMAL Urine leukocyte esterase detection by dipstick 3+ NEGATIVE Automated urine sediment erythrocyte cou nt by microscopy (number/high power field) NONE NRG Automated urine sediment leukocyte count by microscopy (number/high power field) [HPF] NRG Bacteria detection in urine sediment by light microsco py FEW NRG Squamous epithelial cells detection in u rine sediment by light microscopy 0-2 NRG Crystals detection in urine sediment by light microsco py NONE NRG Casts detection in urine sediment by light microscopy NONE NRG Mucus detection in urine sediment by light microscopy MODERATE NRG Complete urinalysis with reflex to culture YES NRG Bacterial urine culture - 07/30/18 09:54 Bacterial urine culture 3 OR MORE NRG COLONY COUNT >100,000/ML NRG FTX;REPORTABLE (GRAM POSITIVE) ISOLATES SUGGESTING NRG FREE TEXT ENTRY 2 PROBABLE COLLECTION CONTAMINATIO N WITH NRG FREE TEXT ENTRY 3 SKIN GARRY. NO SUSCEPTIBILITY P ERFORMED NRG Complete blood count (CBC) with automate d white blood cell (WBC) differential - 07/30/18 12:11 Blood leukocytes automated count (number/volume) 9.0 10*3/uL 4.3-11.0 Blood erythrocytes automated count (number/volume) 3.97 10*6/uL 4.35-5.85 Venous blood hemoglobin measurement (mass/volume) 11.5 g/dL 11.5-16.0 Blood hematocrit (volume fraction) 36 % 35-52 Automated erythrocyte mean corpuscular volume 90 [ foz_us] 80-99 Automated erythrocyte mean corpuscular h emoglobin (mass per erythrocyte) 29 pg 25-34 Automated erythrocyte mean corpuscular h emoglobin concentration measurement (mass/volume) 32 g/dL 32-36 Automated erythrocyte distribution width ratio 15. 0 % 10.0- 14.5 Automated blood platelet count (count/volume) 267 10*3/uL 130-400 Automated blood platelet mean volume measurement 8.7 [foz_us] 7.4-10.4 Automated blood neutrophils/100 leukocytes 68 % 42-75 Automated blood lymphocytes/100 leukocytes 22 % 12-44 Blood monocytes/100 leukocytes 7 % 0-12 Automated blood eosinophils/100 leukocytes 2 % 0-10 Automated blood basophils/100 leukocytes 0 % 0-10 Blood neutrophils automated count (number/volume) 6.1 10*3 1.8-7.8 Blood lymphocytes automated count (number/volume) 2.0 10*3 1.0-4.0 Blood monocytes automated count (number/volume) 0. 7 10*3 0.0-1.0 Automated eosinophil count 0.2 10*3/uL 0 .0-0.3 Automated blood basophil count (count/volume) 0.0 10*3/uL 0.0-0.1 PT panel in platelet poor plasma by coag ulation assay - 07/30/18 12:11 Prothrombin time (PT) in platelet poor plasma by coagu lation assay 20.4 s 12.2-14.7 INR in platelet poor plasma or blood by coagulation as say 1.7 0.8-1.4 Activated partial thromboplastin time (a PTT) in platelet poor plasma bycoagulation assay - 07/30/18 12:11 Activated partial thromboplastin time (a PTT) in platelet poor plasma bycoagulation assay 32 s 24-35 Comprehensive metabolic panel - 07/30/18 12:11 Serum or plasma sodium measurement (moles/volume) 139 mmol/L 135-145 Serum or plasma potassium measurement (moles/volume) 3.9 mmol/L 3.6-5.0 Serum or plasma chloride measurement (moles/volume) 106 mmol/L 98-107 Carbon dioxide 25 mmol/L 21-32 Serum or plasma anion gap determination (moles/volume) 8 mmol/L 5-14 Serum or plasma urea nitrogen measurement (mass/volume ) 6 mg/dL 7-18 Serum or plasma creatinine measurement (mass/volume) 0.62 mg/dL 0.60-1.30 Serum or plasma urea nitrogen/creatinine mass ratio 10 NRG Serum or plasma creatinine measurement w ith calculation of estimated glomerular filtration rate > NRG Serum or plasma glucose measurement (mass/volume) 90 mg/dL 70-105 Serum or plasma calcium measurement (mass/volume) 9.2 mg/dL 8.5-10.1 Serum or plasma total bilirubin measurement (mass/volu me) 0.5 mg/dL 0.1-1.0 Serum or plasma alkaline phosphatase niurka surement (enzymatic activity/volume) 69 U/L 40-136 Serum or plasma aspartate aminotransfera se measurement (enzymatic activity/volume) 15 U/L 5-34 Serum or plasma alanine aminotransferase measurement (enzymatic activity/volume) 14 U/L 0-55 Serum or plasma protein measurement (mass/volume) 7.0 g/dL 6.4-8.2 Serum or plasma albumin measurement (mass/volume) 3.6 g/dL 3.2-4.5 CALCIUM CORRECTED 9.5 mg/dL 8.5-10.1 Serum or plasma amylase measurement (enz ymatic activity/volume) - 07/30/18 12:11 Serum or plasma amylase measurement (enzymatic activit y/volume) 43 U/L 25-125 Lipase - 07/30/18 12:11 Lipase 31 U/L 8-78 Capillary blood glucose measurement by g lucometer (mass/volume) - 08/21/18 12:52 Capillary blood glucose measurement by glucometer (mas s/volume) 85 mg/dL 70-110 PT panel in platelet poor plasma by coag ulation assay - 08/21/18 13:10 Prothrombin time (PT) in platelet poor plasma by coagu lation assay 13.5 s 12.2-14.7 INR in platelet poor plasma or blood by coagulation as say 1.0 0.8-1.4 Methicillin resistant Staphylococcus aur eus (MRSA) screening culture - 08/21/18 13:15 Methicillin resistant Staphylococcus aureus (MRSA) scr eening culture NEG NRG PT panel in platelet poor plasma by coag ulation assay - 08/24/18 14:22 Prothrombin time (PT) in platelet poor plasma by coagu lation assay 13.4 s 12.2-14.7 INR in platelet poor plasma or blood by coagulation as say 1.0 0.8-1.4 Activated partial thromboplastin time (a PTT) in platelet poor plasma bycoagulation assay - 08/24/18 14:22 Activated partial thromboplastin time (a PTT) in platelet poor plasma bycoagulation assay 27 s 24-35 Fibrin D-dimer FEU measurement in platel et poor plasma (mass/volume) - 08/24/18 14:22 Fibrin D-dimer FEU measurement in platelet poor plasma (mass/volume) 0.53 ug/mL 0.00-0.49 Complete blood count (CBC) with automate d white blood cell (WBC) differential - 08/24/18 14:25 Blood leukocytes automated count (number/volume) 13.6 10*3/uL 4.3-11.0 Blood erythrocytes automated count (number/volume) 4.80 10*6/uL 4.35-5.85 Venous blood hemoglobin measurement (mass/volume) 13.8 g/dL 11.5-16.0 Blood hematocrit (volume fraction) 43 % 35-52 Automated erythrocyte mean corpuscular volume 90 [ foz_us] 80-99 Automated erythrocyte mean corpuscular h emoglobin (mass per erythrocyte) 29 pg 25-34 Automated erythrocyte mean corpuscular h emoglobin concentration measurement (mass/volume) 32 g/dL 32-36 Automated erythrocyte distribution width ratio 15. 0 % 10.0- 14.5 Automated blood platelet count (count/volume) 382 10*3/uL 130-400 Automated blood platelet mean volume measurement 9.3 [foz_us] 7.4-10.4 Automated blood neutrophils/100 leukocytes 84 % 42-75 Automated blood lymphocytes/100 leukocytes 12 % 12-44 Blood monocytes/100 leukocytes 4 % 0-12 Automated blood eosinophils/100 leukocytes 0 % 0-10 Automated blood basophils/100 leukocytes 0 % 0-10 Blood neutrophils automated count (number/volume) 11.5 10*3 1.8-7.8 Blood lymphocytes automated count (number/volume) 1.6 10*3 1.0-4.0 Blood monocytes automated count (number/volume) 0. 5 10*3 0.0-1.0 Automated eosinophil count 0.0 10*3/uL 0 .0-0.3 Automated blood basophil count (count/volume) 0.0 10*3/uL 0.0-0.1 Comprehensive metabolic panel - 08/24/18 14:25 Serum or plasma sodium measurement (moles/volume) 143 mmol/L 135-145 Serum or plasma potassium measurement (moles/volume) 3.6 mmol/L 3.6-5.0 Serum or plasma chloride measurement (moles/volume) 104 mmol/L 98-107 Carbon dioxide 24 mmol/L 21-32 Serum or plasma anion gap determination (moles/volume) 15 mmol/L 5-14 Serum or plasma urea nitrogen measurement (mass/volume ) 12 mg/dL 7-18 Serum or plasma creatinine measurement (mass/volume) 0.65 mg/dL 0.60-1.30 Serum or plasma urea nitrogen/creatinine mass ratio 18 NRG Serum or plasma creatinine measurement w ith calculation of estimated glomerular filtration rate > NRG Serum or plasma glucose measurement (mass/volume) 151 mg/dL 70-105 Serum or plasma calcium measurement (mass/volume) 10.3 mg/dL 8.5-10.1 Serum or plasma total bilirubin measurement (mass/volu me) 0.3 mg/dL 0.1-1.0 Serum or plasma alkaline phosphatase niurka surement (enzymatic activity/volume) 90 U/L 40-136 Serum or plasma aspartate aminotransfera se measurement (enzymatic activity/volume) 11 U/L 5-34 Serum or plasma alanine aminotransferase measurement (enzymatic activity/volume) 21 U/L 0-55 Serum or plasma protein measurement (mass/volume) 8.2 g/dL 6.4-8.2 Serum or plasma albumin measurement (mass/volume) 4.3 g/dL 3.2-4.5 CALCIUM CORRECTED 10.1 mg/dL 8.5-10.1 Complete blood count (CBC) with automate d white blood cell (WBC) differential - 08/25/18 04:10 Blood leukocytes automated count (number/volume) 8.0 10*3/uL 4.3-11.0 Blood erythrocytes automated count (number/volume) 4.21 10*6/uL 4.35-5.85 Venous blood hemoglobin measurement (mass/volume) 12.2 g/dL 11.5-16.0 Blood hematocrit (volume fraction) 38 % 35-52 Automated erythrocyte mean corpuscular volume 91 [ foz_us] 80-99 Automated erythrocyte mean corpuscular h emoglobin (mass per erythrocyte) 29 pg 25-34 Automated erythrocyte mean corpuscular h emoglobin concentration measurement (mass/volume) 32 g/dL 32-36 Automated erythrocyte distribution width ratio 15. 0 % 10.0- 14.5 Automated blood platelet count (count/volume) 285 10*3/uL 130-400 Automated blood platelet mean volume measurement 9.0 [foz_us] 7.4-10.4 Automated blood neutrophils/100 leukocytes 80 % 42-75 Automated blood lymphocytes/100 leukocytes 13 % 12-44 Blood monocytes/100 leukocytes 7 % 0-12 Automated blood eosinophils/100 leukocytes 0 % 0-10 Automated blood basophils/100 leukocytes 0 % 0-10 Blood neutrophils automated count (number/volume) 6.4 10*3 1.8-7.8 Blood lymphocytes automated count (number/volume) 1.0 10*3 1.0-4.0 Blood monocytes automated count (number/volume) 0. 6 10*3 0.0-1.0 Automated eosinophil count 0.0 10*3/uL 0 .0-0.3 Automated blood basophil count (count/volume) 0.0 10*3/uL 0.0-0.1 Comprehensive metabolic panel - 08/25/18 04:10 Serum or plasma sodium measurement (moles/volume) 141 mmol/L 135-145 Serum or plasma potassium measurement (moles/volume) 3.8 mmol/L 3.6-5.0 Serum or plasma chloride measurement (moles/volume) 105 mmol/L 98-107 Carbon dioxide 25 mmol/L 21-32 Serum or plasma anion gap determination (moles/volume) 11 mmol/L 5-14 Serum or plasma urea nitrogen measurement (mass/volume ) 15 mg/dL 7-18 Serum or plasma creatinine measurement (mass/volume) 0.60 mg/dL 0.60-1.30 Serum or plasma urea nitrogen/creatinine mass ratio 25 NRG Serum or plasma creatinine measurement w ith calculation of estimated glomerular filtration rate > NRG Serum or plasma glucose measurement (mass/volume) 120 mg/dL 70-105 Serum or plasma calcium measurement (mass/volume) 9.1 mg/dL 8.5-10.1 Serum or plasma total bilirubin measurement (mass/volu me) 0.2 mg/dL 0.1-1.0 Serum or plasma alkaline phosphatase niurka surement (enzymatic activity/volume) 69 U/L 40-136 Serum or plasma aspartate aminotransfera se measurement (enzymatic activity/volume) 8 U/L 5-34 Serum or plasma alanine aminotransferase measurement (enzymatic activity/volume) 15 U/L 0-55 Serum or plasma protein measurement (mass/volume) 6.6 g/dL 6.4-8.2 Serum or plasma albumin measurement (mass/volume) 3.6 g/dL 3.2-4.5 CALCIUM CORRECTED 9.4 mg/dL 8.5-10.1 PT panel in platelet poor plasma by coag ulation assay - 08/25/18 04:10 Prothrombin time (PT) in platelet poor plasma by coagu lation assay 13.8 s 12.2-14.7 INR in platelet poor plasma or blood by coagulation as say 1.0 0.8-1.4 Serum or plasma lithium measurement (mol es/volume) - 08/25/18 04:10 BNP level 35.3 pg/mL <100.0 Serum or plasma troponin i.cardiac measu rement (mass/volume) - 08/25/18 11:52 Serum or plasma troponin i.cardiac measurement (mass/v olume) < ng/mL <0.028 Serum or plasma troponin i.cardiac measu rement (mass/volume) - 08/25/18 17:48 Serum or plasma troponin i.cardiac measurement (mass/v olume) < ng/mL <0.028 Complete blood count (CBC) with automate d white blood cell (WBC) differential - 08/26/18 00:05 Blood leukocytes automated count (number/volume) 8.3 10*3/uL 4.3-11.0 Blood erythrocytes automated count (number/volume) 4.45 10*6/uL 4.35-5.85 Venous blood hemoglobin measurement (mass/volume) 12.6 g/dL 11.5-16.0 Blood hematocrit (volume fraction) 40 % 35-52 Automated erythrocyte mean corpuscular volume 90 [ foz_us] 80-99 Automated erythrocyte mean corpuscular h emoglobin (mass per erythrocyte) 28 pg 25-34 Automated erythrocyte mean corpuscular h emoglobin concentration measurement (mass/volume) 32 g/dL 32-36 Automated erythrocyte distribution width ratio 14. 9 % 10.0- 14.5 Automated blood platelet count (count/volume) 284 10*3/uL 130-400 Automated blood platelet mean volume measurement 9.0 [foz_us] 7.4-10.4 Automated blood neutrophils/100 leukocytes 76 % 42-75 Automated blood lymphocytes/100 leukocytes 14 % 12-44 Blood monocytes/100 leukocytes 10 % 0-12 Automated blood eosinophils/100 leukocytes 0 % 0-10 Automated blood basophils/100 leukocytes 0 % 0-10 Blood neutrophils automated count (number/volume) 6.3 10*3 1.8-7.8 Blood lymphocytes automated count (number/volume) 1.2 10*3 1.0-4.0 Blood monocytes automated count (number/volume) 0. 8 10*3 0.0-1.0 Automated eosinophil count 0.0 10*3/uL 0 .0-0.3 Automated blood basophil count (count/volume) 0.0 10*3/uL 0.0-0.1 Serum or plasma troponin i.cardiac measu rement (mass/volume) - 08/26/18 00:05 Serum or plasma troponin i.cardiac measurement (mass/v olume) < ng/mL <0.028 PT panel in platelet poor plasma by coag ulation assay - 08/26/18 00:05 Prothrombin time (PT) in platelet poor plasma by coagu lation assay 13.6 s 12.2-14.7 INR in platelet poor plasma or blood by coagulation as say 1.0 0.8-1.4 PT panel in platelet poor plasma by coag ulation assay - 08/27/18 04:10 Prothrombin time (PT) in platelet poor plasma by coagu lation assay 17.9 s 12.2-14.7 INR in platelet poor plasma or blood by coagulation as say 1.4 0.8-1.4 Complete blood count (CBC) with automate d white blood cell (WBC) differential - 11/22/18 16:38 Blood leukocytes automated count (number/volume) 7.3 10*3/uL 4.3-11.0 Blood erythrocytes automated count (number/volume) 4.43 10*6/uL 4.35-5.85 Venous blood hemoglobin measurement (mass/volume) 12.2 g/dL 11.5-16.0 Blood hematocrit (volume fraction) 38 % 35-52 Automated erythrocyte mean corpuscular volume 86 [ foz_us] 80-99 Automated erythrocyte mean corpuscular h emoglobin (mass per erythrocyte) 28 pg 25-34 Automated erythrocyte mean corpuscular h emoglobin concentration measurement (mass/volume) 32 g/dL 32-36 Automated erythrocyte distribution width ratio 15. 0 % 10.0- 14.5 Automated blood platelet count (count/volume) 228 10*3/uL 130-400 Automated blood platelet mean volume measurement 9.2 [foz_us] 7.4-10.4 Automated blood neutrophils/100 leukocytes 48 % 42-75 Automated blood lymphocytes/100 leukocytes 33 % 12-44 Blood monocytes/100 leukocytes 9 % 0-12 Automated blood eosinophils/100 leukocytes 9 % 0-10 Automated blood basophils/100 leukocytes 1 % 0-10 Blood neutrophils automated count (number/volume) 3.5 10*3 1.8-7.8 Blood lymphocytes automated count (number/volume) 2.4 10*3 1.0-4.0 Blood monocytes automated count (number/volume) 0. 7 10*3 0.0-1.0 Automated eosinophil count 0.7 10*3/uL 0 .0-0.3 Automated blood basophil count (count/volume) 0.0 10*3/uL 0.0-0.1 Whole blood basic metabolic panel - 11/10 07/29 16:38 Serum or plasma sodium measurement (moles/volume) 139 mmol/L 135-145 Serum or plasma potassium measurement (moles/volume) 3.1 mmol/L 3.6-5.0 Serum or plasma chloride measurement (moles/volume) 106 mmol/L 98-107 Carbon dioxide 21 mmol/L 21-32 Serum or plasma anion gap determination (moles/volume) 12 mmol/L 5-14 Serum or plasma urea nitrogen measurement (mass/volume ) 9 mg/dL 7-18 Serum or plasma creatinine measurement (mass/volume) 0.67 mg/dL 0.60-1.30 Serum or plasma urea nitrogen/creatinine mass ratio 13 NRG Serum or plasma creatinine measurement w ith calculation of estimated glomerular filtration rate > NRG Serum or plasma glucose measurement (mass/volume) 95 mg/dL 70-105 Serum or plasma calcium measurement (mass/volume) 8.9 mg/dL 8.5-10.1 Serum or plasma C reactive protein measu rement (mass/volume) - 11/22/18 16:38 Serum or plasma C reactive protein measurement (mass/v olume) 0.20 mg/dL 0.00-0.50 Serum or plasma lithium measurement (mol es/volume) - 11/22/18 16:38 BNP PT < 10.0 <100.0 Serum or plasma troponin i.cardiac measu rement (mass/volume) - 12/13/18 12:10 Serum or plasma troponin i.cardiac measurement (mass/v olume) < ng/mL <0.028 PT panel in platelet poor plasma by coag ulation assay - 12/13/18 12:10 Prothrombin time (PT) in platelet poor plasma by coagu lation assay 26.1 s 12.2-14.7 INR in platelet poor plasma or blood by coagulation as say 2.3 0.8-1.4 Complete blood count (CBC) with automate d white blood cell (WBC) differential - 03/03/19 10:00 Blood leukocytes automated count (number/volume) 6.0 10*3/uL 4.3-11.0 Blood erythrocytes automated count (number/volume) 4.44 10*6/uL 4.35-5.85 Venous blood hemoglobin measurement (mass/volume) 12.3 g/dL 11.5-16.0 Blood hematocrit (volume fraction) 38 % 35-52 Automated erythrocyte mean corpuscular volume 87 [ foz_us] 80-99 Automated erythrocyte mean corpuscular h emoglobin (mass per erythrocyte) 28 pg 25-34 Automated erythrocyte mean corpuscular h emoglobin concentration measurement (mass/volume) 32 g/dL 32-36 Automated erythrocyte distribution width ratio 16. 0 % 10.0- 14.5 Automated blood platelet count (count/volume) 277 10*3/uL 130-400 Automated blood platelet mean volume measurement 8.9 [foz_us] 7.4-10.4 Automated blood neutrophils/100 leukocytes 49 % 42-75 Automated blood lymphocytes/100 leukocytes 35 % 12-44 Blood monocytes/100 leukocytes 12 % 0-12 Automated blood eosinophils/100 leukocytes 4 % 0-10 Automated blood basophils/100 leukocytes 0 % 0-10 Blood neutrophils automated count (number/volume) 3.0 10*3 1.8-7.8 Blood lymphocytes automated count (number/volume) 2.1 10*3 1.0-4.0 Blood monocytes automated count (number/volume) 0. 7 10*3 0.0-1.0 Automated eosinophil count 0.3 10*3/uL 0 .0-0.3 Automated blood basophil count (count/volume) 0.0 10*3/uL 0.0-0.1 PT panel in platelet poor plasma by coag ulation assay - 03/03/19 10:00 Prothrombin time (PT) in platelet poor plasma by coagu lation assay 19.3 s 12.2-14.7 INR in platelet poor plasma or blood by coagulation as say 1.6 0.8-1.4 Comprehensive metabolic panel - 03/03/19 10:00 Serum or plasma sodium measurement (moles/volume) 144 mmol/L 135-145 Serum or plasma potassium measurement (moles/volume) 3.4 mmol/L 3.6-5.0 Serum or plasma chloride measurement (moles/volume) 107 mmol/L 98-107 Carbon dioxide 23 mmol/L 21-32 Serum or plasma anion gap determination (moles/volume) 14 mmol/L 5-14 Serum or plasma urea nitrogen measurement (mass/volume ) 11 mg/dL 7-18 Serum or plasma creatinine measurement (mass/volume) 0.68 mg/dL 0.60-1.30 Serum or plasma urea nitrogen/creatinine mass ratio 16 NRG Serum or plasma creatinine measurement w ith calculation of estimated glomerular filtration rate > NRG Serum or plasma glucose measurement (mass/volume) 109 mg/dL 70-105 Serum or plasma calcium measurement (mass/volume) 9.0 mg/dL 8.5-10.1 Serum or plasma total bilirubin measurement (mass/volu me) 0.2 mg/dL 0.1-1.0 Serum or plasma alkaline phosphatase niurka surement (enzymatic activity/volume) 87 U/L 40-136 Serum or plasma aspartate aminotransfera se measurement (enzymatic activity/volume) 17 U/L 5-34 Serum or plasma alanine aminotransferase measurement (enzymatic activity/volume) 22 U/L 0-55 Serum or plasma protein measurement (mass/volume) 7.5 g/dL 6.4-8.2 Serum or plasma albumin measurement (mass/volume) 3.7 g/dL 3.2-4.5 CALCIUM CORRECTED 9.2 mg/dL 8.5-10.1 Serum or plasma troponin i.cardiac measu rement (mass/volume) - 03/03/19 10:00 Serum or plasma troponin i.cardiac measurement (mass/v olume) < ng/mL <0.028 Complete blood count (CBC) with automate d white blood cell (WBC) differential - 03/04/19 06:10 Blood leukocytes automated count (number/volume) 7.0 10*3/uL 4.3-11.0 Blood erythrocytes automated count (number/volume) 4.35 10*6/uL 4.35-5.85 Venous blood hemoglobin measurement (mass/volume) 12.1 g/dL 11.5-16.0 Blood hematocrit (volume fraction) 38 % 35-52 Automated erythrocyte mean corpuscular volume 87 [ foz_us] 80-99 Automated erythrocyte mean corpuscular h emoglobin (mass per erythrocyte) 28 pg 25-34 Automated erythrocyte mean corpuscular h emoglobin concentration measurement (mass/volume) 32 g/dL 32-36 Automated erythrocyte distribution width ratio 16. 0 % 10.0- 14.5 Automated blood platelet count (count/volume) 251 10*3/uL 130-400 Automated blood platelet mean volume measurement 9.1 [foz_us] 7.4-10.4 Automated blood neutrophils/100 leukocytes 83 % 42-75 Automated blood lymphocytes/100 leukocytes 14 % 12-44 Blood monocytes/100 leukocytes 4 % 0-12 Automated blood eosinophils/100 leukocytes 0 % 0-10 Automated blood basophils/100 leukocytes 0 % 0-10 Blood neutrophils automated count (number/volume) 5.8 10*3 1.8-7.8 Blood lymphocytes automated count (number/volume) 0.9 10*3 1.0-4.0 Blood monocytes automated count (number/volume) 0. 3 10*3 0.0-1.0 Automated eosinophil count 0.0 10*3/uL 0 .0-0.3 Automated blood basophil count (count/volume) 0.0 10*3/uL 0.0-0.1 Comprehensive metabolic panel - 03/04/19 06:10 Serum or plasma sodium measurement (moles/volume) 139 mmol/L 135-145 Serum or plasma potassium measurement (moles/volume) 3.9 mmol/L 3.6-5.0 Serum or plasma chloride measurement (moles/volume) 107 mmol/L 98-107 Carbon dioxide 21 mmol/L 21-32 Serum or plasma anion gap determination (moles/volume) 11 mmol/L 5-14 Serum or plasma urea nitrogen measurement (mass/volume ) 11 mg/dL 7-18 Serum or plasma creatinine measurement (mass/volume) 0.62 mg/dL 0.60-1.30 Serum or plasma urea nitrogen/creatinine mass ratio 18 NRG Serum or plasma creatinine measurement w ith calculation of estimated glomerular filtration rate > NRG Serum or plasma glucose measurement (mass/volume) 136 mg/dL 70-105 Serum or plasma calcium measurement (mass/volume) 9.0 mg/dL 8.5-10.1 Serum or plasma total bilirubin measurement (mass/volu me) 0.2 mg/dL 0.1-1.0 Serum or plasma alkaline phosphatase niurka surement (enzymatic activity/volume) 92 U/L 40-136 Serum or plasma aspartate aminotransfera se measurement (enzymatic activity/volume) 13 U/L 5-34 Serum or plasma alanine aminotransferase measurement (enzymatic activity/volume) 20 U/L 0-55 Serum or plasma protein measurement (mass/volume) 7.4 g/dL 6.4-8.2 Serum or plasma albumin measurement (mass/volume) 3.9 g/dL 3.2-4.5 CALCIUM CORRECTED 9.1 mg/dL 8.5-10.1 PT panel in platelet poor plasma by coag ulation assay - 03/04/19 06:10 Prothrombin time (PT) in platelet poor plasma by coagu lation assay 20.9 s 12.2-14.7 INR in platelet poor plasma or blood by coagulation as say 1.7 0.8-1.4 Methicillin resistant Staphylococcus aur eus (MRSA) screening culture - 05/14/19 12:09 MRSA SCREEN RESULT MRSA ISOLATED NRG PT panel in platelet poor plasma by coag ulation assay - 05/20/19 07:30 Prothrombin time (PT) in platelet poor plasma by coagu lation assay 13.7 s 12.2-14.7 INR in platelet poor plasma or blood by coagulation as say 1.0 0.8-1.4 Arterial blood gas measurement - 0 23:12 Blood pCO2 37 mm[Hg] 35-45 Blood pO2 74 mm[Hg] 79-93 Arterial blood bicarbonate measurement (moles/volume) 24 mmol/L 23-27 Arterial blood base excess by calculation 0.1 mmol /L -2.5-2.5 Arterial blood oxygen saturation measurement 95 % 94-100 * Inhaled oxygen flow rate 2L NRG Arterial blood pH measurement with patient temperature correction 7.43 7.37-7.43 Arterial blood carbon dioxide, total measurement (mole s/volume) 25.2 mmol/L 21.0-31.0 Body site RW NRG Assessment of wrist artery patency prior to arterial p uncture YES-POS NRG Setting of ventilation mode NO NR G Measurement of body temperature 36.7 NRG Complete blood count (CBC) with automate d white blood cell (WBC) differential - 05/27/19 23:13 Blood leukocytes automated count (number/volume) 6.7 10*3/uL 4.3-11.0 Blood erythrocytes automated count (number/volume) 4.57 10*6/uL 4.35-5.85 Venous blood hemoglobin measurement (mass/volume) 13.0 g/dL 11.5-16.0 Blood hematocrit (volume fraction) 40 % 35-52 Automated erythrocyte mean corpuscular volume 88 [ foz_us] 80-99 Automated erythrocyte mean corpuscular h emoglobin (mass per erythrocyte) 28 pg 25-34 Automated erythrocyte mean corpuscular h emoglobin concentration measurement (mass/volume) 32 g/dL 32-36 Automated erythrocyte distribution width ratio 15. 1 % 10.0- 14.5 Automated blood platelet count (count/volume) 276 10*3/uL 130-400 Automated blood platelet mean volume measurement 8.8 [foz_us] 7.4-10.4 Automated blood neutrophils/100 leukocytes 42 % 42-75 Automated blood lymphocytes/100 leukocytes 38 % 12-44 Blood monocytes/100 leukocytes 10 % 0-12 Automated blood eosinophils/100 leukocytes 10 % 0-10 Automated blood basophils/100 leukocytes 0 % 0-10 Blood neutrophils automated count (number/volume) 2.8 10*3 1.8-7.8 Blood lymphocytes automated count (number/volume) 2.5 10*3 1.0-4.0 Blood monocytes automated count (number/volume) 0. 7 10*3 0.0-1.0 Automated eosinophil count 0.6 10*3/uL 0 .0-0.3 Automated blood basophil count (count/volume) 0.0 10*3/uL 0.0-0.1 Comprehensive metabolic panel - 05/27/19 23:13 Serum or plasma sodium measurement (moles/volume) 143 mmol/L 135-145 Serum or plasma potassium measurement (moles/volume) 3.6 mmol/L 3.6-5.0 Serum or plasma chloride measurement (moles/volume) 108 mmol/L 98-107 Carbon dioxide 23 mmol/L 21-32 Serum or plasma anion gap determination (moles/volume) 12 mmol/L 5-14 Serum or plasma urea nitrogen measurement (mass/volume ) 11 mg/dL 7-18 Serum or plasma creatinine measurement (mass/volume) 0.70 mg/dL 0.60-1.30 Serum or plasma urea nitrogen/creatinine mass ratio 16 NRG Serum or plasma creatinine measurement w ith calculation of estimated glomerular filtration rate > NRG Serum or plasma glucose measurement (mass/volume) 95 mg/dL 70-105 Serum or plasma calcium measurement (mass/volume) 9.0 mg/dL 8.5-10.1 Serum or plasma total bilirubin measurement (mass/volu me) 0.3 mg/dL 0.1-1.0 Serum or plasma alkaline phosphatase niurka surement (enzymatic activity/volume) 87 U/L 40-136 Serum or plasma aspartate aminotransfera se measurement (enzymatic activity/volume) 17 U/L 5-34 Serum or plasma alanine aminotransferase measurement (enzymatic activity/volume) 18 U/L 0-55 Serum or plasma protein measurement (mass/volume) 7.5 g/dL 6.4-8.2 Serum or plasma albumin measurement (mass/volume) 4.0 g/dL 3.2-4.5 CALCIUM CORRECTED 9.0 mg/dL 8.5-10.1 Serum or plasma troponin i.cardiac measu rement (mass/volume) - 05/27/19 23:13 Serum or plasma troponin i.cardiac measurement (mass/v olume) < ng/mL <0.028 PT panel in platelet poor plasma by coag ulation assay - 05/27/19 23:13 Prothrombin time (PT) in platelet poor plasma by coagu lation assay 15.6 s 12.2-14.7 INR in platelet poor plasma or blood by coagulation as say 1.2 0.8-1.4 Activated partial thromboplastin time (a PTT) in platelet poor plasma bycoagulation assay - 05/27/19 23:13 Activated partial thromboplastin time (a PTT) in platelet poor plasma bycoagulation assay 30 s 24-35 Bacterial urine culture - 05/27/19 23:13 Bacterial urine culture NG NRG Complete urinalysis with reflex to cultu re - 05/27/19 23:22 Urine color determination YELLOW NRG Urine clarity determination CLEAR NR G Urine pH measurement by test strip 6.5 5-9 Specific gravity of urine by test strip <= 1.016-1.022 Urine protein assay by test strip, semi-quantitative NEGATIVE NEGATIVE Urine glucose detection by automated test strip NE GATIVE NEGATIVE Erythrocytes detection in urine sediment by light micr oscopy 1+ NEGATIVE Urine ketones detection by automated test strip NE GATIVE NEGATIVE Urine nitrite detection by test strip NEGATIVE NEGATIVE Urine total bilirubin detection by test strip NEGA TIVE NEGATIVE Urine urobilinogen measurement by automated test strip (mass/volume) 0.2 mg/dL < = 1.0 Urine leukocyte esterase detection by dipstick NEG ATIVE NEGATIVE Automated urine sediment erythrocyte cou nt by microscopy (number/high power field) RARE NRG Automated urine sediment leukocyte count by microscopy (number/high power field) RARE NRG Bacteria detection in urine sediment by light microsco py TRACE NRG Crystals detection in urine sediment by light microsco py NONE NRG Casts detection in urine sediment by light microscopy NONE NRG Mucus detection in urine sediment by light microscopy NEGATIVE NRG Complete urinalysis with reflex to culture NO NRG Influenza virus A and B antigen detectio n - 05/27/19 23:30 FLU RESULT NEGATIVE FOR INFLUENZA A AND B ANTIGENS BY IA NRG Bacterial blood culture - 05/27/19 23:37 Bacterial blood culture NG NRG Blood lactic acid measurement (moles/vol ume) - 05/27/19 23:39 Blood lactic acid measurement (moles/volume) 1.39 mmol/L 0.50-2.00 Bacterial blood culture - 05/27/19 23:54 Bacterial blood culture NG NRG Complete blood count (CBC) with automate d white blood cell (WBC) differential - 05/28/19 02:37 Blood leukocytes automated count (number/volume) 6.9 10*3/uL 4.3-11.0 Blood erythrocytes automated count (number/volume) 4.24 10*6/uL 4.35-5.85 Venous blood hemoglobin measurement (mass/volume) 11.9 g/dL 11.5-16.0 Blood hematocrit (volume fraction) 37 % 35-52 Automated erythrocyte mean corpuscular volume 88 [ foz_us] 80-99 Automated erythrocyte mean corpuscular h emoglobin (mass per erythrocyte) 28 pg 25-34 Automated erythrocyte mean corpuscular h emoglobin concentration measurement (mass/volume) 32 g/dL 32-36 Automated erythrocyte distribution width ratio 15. 0 % 10.0- 14.5 Automated blood platelet count (count/volume) 255 10*3/uL 130-400 Automated blood platelet mean volume measurement 9.2 [foz_us] 7.4-10.4 Automated blood neutrophils/100 leukocytes 94 % 42-75 Automated blood lymphocytes/100 leukocytes 5 % 12-44 Blood monocytes/100 leukocytes 1 % 0-12 Automated blood eosinophils/100 leukocytes 1 % 0-10 Automated blood basophils/100 leukocytes 0 % 0-10 Blood neutrophils automated count (number/volume) 6.5 10*3 1.8-7.8 Blood lymphocytes automated count (number/volume) 0.3 10*3 1.0-4.0 Blood monocytes automated count (number/volume) 0. 1 10*3 0.0-1.0 Automated eosinophil count 0.0 10*3/uL 0 .0-0.3 Automated blood basophil count (count/volume) 0.0 10*3/uL 0.0-0.1 Manual absolute plasma cell count - 05/13 10/30 02:37 Blood monocytes/100 leukocytes 2 % NRG Manual blood segmented neutrophils/100 leukocytes 92 % NRG Blood band neutrophils/100 leukocytes 0 % NRG Manual blood lymphocytes/100 leukocytes 6 % NRG Manual eosinophils/100 leukocytes in nose 0 % NRG Manual blood basophils/100 leukocytes 0 % NRG Blood anisocytosis detection by light microscopy S LIGHT NRG Blood toxic granules detection by light microscopy 2+ NRG Comprehensive metabolic panel - 05/28/19 02:37 Serum or plasma sodium measurement (moles/volume) 142 mmol/L 135-145 Serum or plasma potassium measurement (moles/volume) 3.4 mmol/L 3.6-5.0 Serum or plasma chloride measurement (moles/volume) 112 mmol/L 98-107 Carbon dioxide 18 mmol/L 21-32 Serum or plasma anion gap determination (moles/volume) 12 mmol/L 5-14 Serum or plasma urea nitrogen measurement (mass/volume ) 9 mg/dL 7-18 Serum or plasma creatinine measurement (mass/volume) 0.62 mg/dL 0.60-1.30 Serum or plasma urea nitrogen/creatinine mass ratio 15 NRG Serum or plasma creatinine measurement w ith calculation of estimated glomerular filtration rate > NRG Serum or plasma glucose measurement (mass/volume) 145 mg/dL 70-105 Serum or plasma calcium measurement (mass/volume) 8.4 mg/dL 8.5-10.1 Serum or plasma total bilirubin measurement (mass/volu me) 0.2 mg/dL 0.1-1.0 Serum or plasma alkaline phosphatase niurka surement (enzymatic activity/volume) 79 U/L 40-136 Serum or plasma aspartate aminotransfera se measurement (enzymatic activity/volume) 15 U/L 5-34 Serum or plasma alanine aminotransferase measurement (enzymatic activity/volume) 18 U/L 0-55 Serum or plasma protein measurement (mass/volume) 6.9 g/dL 6.4-8.2 Serum or plasma albumin measurement (mass/volume) 3.7 g/dL 3.2-4.5 CALCIUM CORRECTED 8.6 mg/dL 8.5-10.1 PT panel in platelet poor plasma by coag ulation assay - 05/29/19 04:55 Prothrombin time (PT) in platelet poor plasma by coagu lation assay 18.7 s 12.2-14.7 INR in platelet poor plasma or blood by coagulation as say 1.5 0.8-1.4 PT panel in platelet poor plasma by coag ulation assay - 05/30/19 06:01 Prothrombin time (PT) in platelet poor plasma by coagu lation assay 23.7 s 12.2-14.7 INR in platelet poor plasma or blood by coagulation as say 2.0 0.8-1.4 Complete blood count (CBC) with automate d white blood cell (WBC) differential - 05/31/19 05:20 Blood leukocytes automated count (number/volume) 10.5 10*3/uL 4.3-11.0 Blood erythrocytes automated count (number/volume) 4.46 10*6/uL 4.35-5.85 Venous blood hemoglobin measurement (mass/volume) 12.5 g/dL 11.5-16.0 Blood hematocrit (volume fraction) 40 % 35-52 Automated erythrocyte mean corpuscular volume 89 [ foz_us] 80-99 Automated erythrocyte mean corpuscular h emoglobin (mass per erythrocyte) 28 pg 25-34 Automated erythrocyte mean corpuscular h emoglobin concentration measurement (mass/volume) 32 g/dL 32-36 Automated erythrocyte distribution width ratio 15. 7 % 10.0- 14.5 Automated blood platelet count (count/volume) 336 10*3/uL 130-400 Automated blood platelet mean volume measurement 8.8 [foz_us] 7.4-10.4 Automated blood neutrophils/100 leukocytes 88 % 42-75 Automated blood lymphocytes/100 leukocytes 6 % 12-44 Blood monocytes/100 leukocytes 6 % 0-12 Automated blood eosinophils/100 leukocytes 0 % 0-10 Automated blood basophils/100 leukocytes 0 % 0-10 Blood neutrophils automated count (number/volume) 9.2 10*3 1.8-7.8 Blood lymphocytes automated count (number/volume) 0.6 10*3 1.0-4.0 Blood monocytes automated count (number/volume) 0. 7 10*3 0.0-1.0 Automated eosinophil count 0.0 10*3/uL 0 .0-0.3 Automated blood basophil count (count/volume) 0.0 10*3/uL 0.0-0.1 PT panel in platelet poor plasma by coag ulation assay - 05/31/19 05:20 Prothrombin time (PT) in platelet poor plasma by coagu lation assay 25.5 s 12.2-14.7 INR in platelet poor plasma or blood by coagulation as say 2.2 0.8-1.4 Whole blood basic metabolic panel - 05/13 01/30 05:20 Serum or plasma sodium measurement (moles/volume) 140 mmol/L 135-145 Serum or plasma potassium measurement (moles/volume) 4.0 mmol/L 3.6-5.0 Serum or plasma chloride measurement (moles/volume) 105 mmol/L 98-107 Carbon dioxide 22 mmol/L 21-32 Serum or plasma anion gap determination (moles/volume) 13 mmol/L 5-14 Serum or plasma urea nitrogen measurement (mass/volume ) 18 mg/dL 7-18 Serum or plasma creatinine measurement (mass/volume) 0.65 mg/dL 0.60-1.30 Serum or plasma urea nitrogen/creatinine mass ratio 28 NRG Serum or plasma creatinine measurement w ith calculation of estimated glomerular filtration rate > NRG Serum or plasma glucose measurement (mass/volume) 160 mg/dL 70-105 Serum or plasma calcium measurement (mass/volume) 8.7 mg/dL 8.5-10.1 Arterial blood gas measurement - 0 07:42 Blood pCO2 42 mm[Hg] 35-45 Blood pO2 60 mm[Hg] 79-93 Arterial blood bicarbonate measurement (moles/volume) 27 mmol/L 23-27 Arterial blood base excess by calculation 2.9 mmol /L -2.5-2.5 Arterial blood oxygen saturation measurement 94 % 94-100 * Inhaled oxygen flow rate 8 L NRG Arterial blood pH measurement with patient temperature correction 7.42 7.37-7.43 Arterial blood carbon dioxide, total measurement (mole s/volume) 28.8 mmol/L 21.0-31.0 Body site RIGHT RADIAL NRG Assessment of wrist artery patency prior to arterial p uncture POSITIVE NRG Setting of ventilation mode NO NR G Measurement of body temperature 35.3 NRG Complete blood count (CBC) with automate d white blood cell (WBC) differential - 07/20/19 07:44 Blood leukocytes automated count (number/volume) 9.1 10*3/uL 4.3-11.0 Blood erythrocytes automated count (number/volume) 4.59 10*6/uL 4.35-5.85 Venous blood hemoglobin measurement (mass/volume) 12.8 g/dL 11.5-16.0 Blood hematocrit (volume fraction) 41 % 35-52 Automated erythrocyte mean corpuscular volume 88 [ foz_us] 80-99 Automated erythrocyte mean corpuscular h emoglobin (mass per erythrocyte) 28 pg 25-34 Automated erythrocyte mean corpuscular h emoglobin concentration measurement (mass/volume) 32 g/dL 32-36 Automated erythrocyte distribution width ratio 15. 7 % 10.0- 14.5 Automated blood platelet count (count/volume) 299 10*3/uL 130-400 Automated blood platelet mean volume measurement 8.7 [foz_us] 7.4-10.4 Automated blood neutrophils/100 leukocytes 43 % 42-75 Automated blood lymphocytes/100 leukocytes 44 % 12-44 Blood monocytes/100 leukocytes 8 % 0-12 Automated blood eosinophils/100 leukocytes 5 % 0-10 Automated blood basophils/100 leukocytes 0 % 0-10 Blood neutrophils automated count (number/volume) 3.9 10*3 1.8-7.8 Blood lymphocytes automated count (number/volume) 4.0 10*3 1.0-4.0 Blood monocytes automated count (number/volume) 0. 7 10*3 0.0-1.0 Automated eosinophil count 0.4 10*3/uL 0 .0-0.3 Automated blood basophil count (count/volume) 0.0 10*3/uL 0.0-0.1 Comprehensive metabolic panel - 07/20/19 07:44 Serum or plasma sodium measurement (moles/volume) 145 mmol/L 135-145 Serum or plasma potassium measurement (moles/volume) 3.2 mmol/L 3.6-5.0 Serum or plasma chloride measurement (moles/volume) 108 mmol/L 98-107 Carbon dioxide 24 mmol/L 21-32 Serum or plasma anion gap determination (moles/volume) 13 mmol/L 5-14 Serum or plasma urea nitrogen measurement (mass/volume ) 14 mg/dL 7-18 Serum or plasma creatinine measurement (mass/volume) 0.64 mg/dL 0.60-1.30 Serum or plasma urea nitrogen/creatinine mass ratio 22 NRG Serum or plasma creatinine measurement w ith calculation of estimated glomerular filtration rate > NRG Serum or plasma glucose measurement (mass/volume) 108 mg/dL 70-105 Serum or plasma calcium measurement (mass/volume) 8.8 mg/dL 8.5-10.1 Serum or plasma total bilirubin measurement (mass/volu me) 0.3 mg/dL 0.1-1.0 Serum or plasma alkaline phosphatase niurka surement (enzymatic activity/volume) 81 U/L 40-136 Serum or plasma aspartate aminotransfera se measurement (enzymatic activity/volume) 11 U/L 5-34 Serum or plasma alanine aminotransferase measurement (enzymatic activity/volume) 12 U/L 0-55 Serum or plasma protein measurement (mass/volume) 7.2 g/dL 6.4-8.2 Serum or plasma albumin measurement (mass/volume) 3.8 g/dL 3.2-4.5 CALCIUM CORRECTED 9.0 mg/dL 8.5-10.1 PT panel in platelet poor plasma by coag ulation assay - 07/20/19 07:44 Prothrombin time (PT) in platelet poor plasma by coagu lation assay 21.2 s 12.2-14.7 INR in platelet poor plasma or blood by coagulation as say 1.8 0.8-1.4 Activated partial thromboplastin time (a PTT) in platelet poor plasma bycoagulation assay - 07/20/19 07:44 Activated partial thromboplastin time (a PTT) in platelet poor plasma bycoagulation assay 27 s 24-35 Influenza virus A and B antigen detectio n - 07/20/19 07:44 FLU RESULT NEGATIVE FOR INFLUENZA A AND B ANTIGENS BY IA NRG Blood lactic acid measurement (moles/vol ume) - 07/20/19 07:44 Blood lactic acid measurement (moles/volume) 2.75 mmol/L 0.50-2.00 Serum or plasma C reactive protein measu rement (mass/volume) - 07/20/19 07:44 Serum or plasma C reactive protein measurement (mass/v olume) 0.05 mg/dL 0.00-0.50 Serum or plasma lithium measurement (mol es/volume) - 07/20/19 07:44 BNP PT 12.4 pg/mL <100.0 Magnesium - 07/20/19 07:44 Magnesium 1.9 mg/dL 1.6-2.4 Bacterial blood culture - 07/20/19 07:44 Bacterial blood culture NG NRG Complete urinalysis with reflex to cultu re - 07/20/19 07:50 Urine color determination YELLOW NRG Urine clarity determination CLEAR NR G Urine pH measurement by test strip 7.0 5-9 Specific gravity of urine by test strip <= 1.016-1.022 Urine protein assay by test strip, semi-quantitative NEGATIVE NEGATIVE Urine glucose detection by automated test strip NE GATIVE NEGATIVE Erythrocytes detection in urine sediment by light micr oscopy TRACE-I NEGATIVE Urine ketones detection by automated test strip NE GATIVE NEGATIVE Urine nitrite detection by test strip NEGATIVE NEGATIVE Urine total bilirubin detection by test strip NEGA TIVE NEGATIVE Urine urobilinogen measurement by automated test strip (mass/volume) 0.2 mg/dL < = 1.0 Urine leukocyte esterase detection by dipstick NEG ATIVE NEGATIVE Automated urine sediment erythrocyte cou nt by microscopy (number/high power field) RARE NRG Automated urine sediment leukocyte count by microscopy (number/high power field) NONE NRG Bacteria detection in urine sediment by light microsco py NEGATIVE NRG Squamous epithelial cells detection in u rine sediment by light microscopy RARE NRG Crystals detection in urine sediment by light microsco py NONE NRG Casts detection in urine sediment by light microscopy NONE NRG Mucus detection in urine sediment by light microscopy NEGATIVE NRG Complete urinalysis with reflex to culture NO NRG Bacterial urine culture - 07/20/19 07:50 Bacterial urine culture 3 OR MORE NRG COLONY COUNT 30,000 CFU/ML NRG FTX;REPORTABLE (GRAM POSITIVE) SUGGESTING PROBABLE NRG FREE TEXT ENTRY 2 COLLECTION CONTAMINATION WITH SK IN GARRY NRG FREE TEXT ENTRY 3 NO SUSCEPTIBILITY PERFORMED NRG Bacterial blood culture - 07/20/19 08:45 Bacterial blood culture NG NRG Serum or plasma lactate measurement (mol es/volume) - 07/20/19 10:50 Serum or plasma lactate measurement (moles/volume) 3.86 mmol/L 0.50-2.00 Serum or plasma lactate measurement (mol es/volume) - 07/20/19 13:05 Serum or plasma lactate measurement (moles/volume) 5.44 mmol/L 0.50-2.00 Serum or plasma lactate measurement (mol es/volume) - 07/20/19 15:00 Serum or plasma lactate measurement (moles/volume) 5.11 mmol/L 0.50-2.00 Serum or plasma lactate measurement (mol es/volume) - 07/20/19 17:09 Serum or plasma lactate measurement (moles/volume) 4.17 mmol/L 0.50-2.00 Serum or plasma lactate measurement (mol es/volume) - 07/20/19 19:08 Serum or plasma lactate measurement (moles/volume) 5.10 mmol/L 0.50-2.00 Serum or plasma lactate measurement (mol es/volume) - 07/20/19 21:00 Serum or plasma lactate measurement (moles/volume) 4.18 mmol/L 0.50-2.00 Serum or plasma lactate measurement (mol es/volume) - 07/20/19 22:58 Serum or plasma lactate measurement (moles/volume) 3.78 mmol/L 0.50-2.00 Serum or plasma lactate measurement (mol es/volume) - 07/21/19 01:05 Serum or plasma lactate measurement (moles/volume) 3.61 mmol/L 0.50-2.00 Complete blood count (CBC) with automate d white blood cell (WBC) differential - 07/21/19 03:10 Blood leukocytes automated count (number/volume) 9.8 10*3/uL 4.3-11.0 Blood erythrocytes automated count (number/volume) 4.18 10*6/uL 4.35-5.85 Venous blood hemoglobin measurement (mass/volume) 11.7 g/dL 11.5-16.0 Blood hematocrit (volume fraction) 37 % 35-52 Automated erythrocyte mean corpuscular volume 89 [ foz_us] 80-99 Automated erythrocyte mean corpuscular h emoglobin (mass per erythrocyte) 28 pg 25-34 Automated erythrocyte mean corpuscular h emoglobin concentration measurement (mass/volume) 32 g/dL 32-36 Automated erythrocyte distribution width ratio 15. 9 % 10.0- 14.5 Automated blood platelet count (count/volume) 295 10*3/uL 130-400 Automated blood platelet mean volume measurement 8.8 [foz_us] 7.4-10.4 Automated blood neutrophils/100 leukocytes 85 % 42-75 Automated blood lymphocytes/100 leukocytes 9 % 12-44 Blood monocytes/100 leukocytes 5 % 0-12 Automated blood eosinophils/100 leukocytes 0 % 0-10 Automated blood basophils/100 leukocytes 0 % 0-10 Blood neutrophils automated count (number/volume) 8.3 10*3 1.8-7.8 Blood lymphocytes automated count (number/volume) 0.9 10*3 1.0-4.0 Blood monocytes automated count (number/volume) 0. 5 10*3 0.0-1.0 Automated eosinophil count 0.0 10*3/uL 0 .0-0.3 Automated blood basophil count (count/volume) 0.0 10*3/uL 0.0-0.1 Serum or plasma lactate measurement (mol es/volume) - 07/21/19 03:10 Serum or plasma lactate measurement (moles/volume) 3.55 mmol/L 0.50-2.00 Comprehensive metabolic panel - 07/21/19 03:10 Serum or plasma sodium measurement (moles/volume) 139 mmol/L 135-145 Serum or plasma potassium measurement (moles/volume) 4.0 mmol/L 3.6-5.0 Serum or plasma chloride measurement (moles/volume) 106 mmol/L 98-107 Carbon dioxide 22 mmol/L 21-32 Serum or plasma anion gap determination (moles/volume) 11 mmol/L 5-14 Serum or plasma urea nitrogen measurement (mass/volume ) 11 mg/dL 7-18 Serum or plasma creatinine measurement (mass/volume) 0.59 mg/dL 0.60-1.30 Serum or plasma urea nitrogen/creatinine mass ratio 19 NRG Serum or plasma creatinine measurement w ith calculation of estimated glomerular filtration rate > NRG Serum or plasma glucose measurement (mass/volume) 144 mg/dL 70-105 Serum or plasma calcium measurement (mass/volume) 8.7 mg/dL 8.5-10.1 Serum or plasma total bilirubin measurement (mass/volu me) 0.2 mg/dL 0.1-1.0 Serum or plasma alkaline phosphatase niurka surement (enzymatic activity/volume) 77 U/L 40-136 Serum or plasma aspartate aminotransfera se measurement (enzymatic activity/volume) 9 U/L 5-34 Serum or plasma alanine aminotransferase measurement (enzymatic activity/volume) 11 U/L 0-55 Serum or plasma protein measurement (mass/volume) 6.8 g/dL 6.4-8.2 Serum or plasma albumin measurement (mass/volume) 3.6 g/dL 3.2-4.5 CALCIUM CORRECTED 9.0 mg/dL 8.5-10.1 PT panel in platelet poor plasma by coag ulation assay - 07/21/19 03:10 Prothrombin time (PT) in platelet poor plasma by coagu lation assay 22.9 s 12.2-14.7 INR in platelet poor plasma or blood by coagulation as say 1.9 0.8-1.4 Serum or plasma lactate measurement (mol es/volume) - 07/21/19 05:12 Serum or plasma lactate measurement (moles/volume) 3.36 mmol/L 0.50-2.00 Complete blood count (CBC) with automate d white blood cell (WBC) differential - 07/22/19 05:50 Blood leukocytes automated count (number/volume) 14.0 10*3/uL 4.3-11.0 Blood erythrocytes automated count (number/volume) 4.36 10*6/uL 4.35-5.85 Venous blood hemoglobin measurement (mass/volume) 12.2 g/dL 11.5-16.0 Blood hematocrit (volume fraction) 39 % 35-52 Automated erythrocyte mean corpuscular volume 88 [ foz_us] 80-99 Automated erythrocyte mean corpuscular h emoglobin (mass per erythrocyte) 28 pg 25-34 Automated erythrocyte mean corpuscular h emoglobin concentration measurement (mass/volume) 32 g/dL 32-36 Automated erythrocyte distribution width ratio 15. 8 % 10.0- 14.5 Automated blood platelet count (count/volume) 330 10*3/uL 130-400 Automated blood platelet mean volume measurement 8.9 [foz_us] 7.4-10.4 Automated blood neutrophils/100 leukocytes 89 % 42-75 Automated blood lymphocytes/100 leukocytes 7 % 12-44 Blood monocytes/100 leukocytes 4 % 0-12 Automated blood eosinophils/100 leukocytes 0 % 0-10 Automated blood basophils/100 leukocytes 0 % 0-10 Blood neutrophils automated count (number/volume) 12.5 10*3 1.8-7.8 Blood lymphocytes automated count (number/volume) 0.9 10*3 1.0-4.0 Blood monocytes automated count (number/volume) 0. 6 10*3 0.0-1.0 Automated eosinophil count 0.0 10*3/uL 0 .0-0.3 Automated blood basophil count (count/volume) 0.0 10*3/uL 0.0-0.1 Blood lactic acid measurement (moles/vol ume) - 07/22/19 05:50 Blood lactic acid measurement (moles/volume) 3.04 mmol/L 0.50-2.00 Encounters ACCT No. Visit Date/Time Discharge Status Pt. Type Provider Facility Loc./Unit Complaint [id number] 11/19/2019 10:11:00 23:59:59 CLS Outpatient LEAH WOLF MD Via [facility] RAD SCREENING [id number] 07/20/2019 09:16:00 11:25:00 DIS Inpatient LEAH WOLF MD Via [facility] 4TH COPD EXACERBATION [id number] 05/27/2019 23:06:00 020 14:22:00 DIS Outpatient LEAH WOLF MD Via [facility] 4TH COPD W EXACERBATION, AC BAD RIVER BAND CHRONIC HYPOXIC [id number] 05/20/2019 07:00:00 10:09:00 DIS Outpatient HOWARD HUGHES MD [facility] SDC RIGHT KNEE MEDIAL MENI SCUS TEAR [id number] 05/14/2019 11:42:00 12:15:00 DIS Outpatient HOWARD HUGHES MD [facility] PREOP RIGHT KNEE MEDIAL MENI SCUS TEAR [id number] 03/03/2019 11:15:00 10:45:00 DIS Inpatient LEAH WOLF MD Via [facility] 4TH EXACERBATION OF COPD HY POXIA [id number] 02/17/2019 06:41:00 23:59:59 CLS Outpatient SUSHANT GALICIA [facility] CARD OTHER CHEST JONATHAN N,COPD [id number] 02/06/2019 17:47:00 19:56:00 DIS Outpatient KAMRAN LINDQUIST APRN [facility] ER LT ANKLE PAIN [id number] 01/15/2019 14:47:00 23:59:59 CLS Outpatient LEAH WOLF MD [facility] RAD COUGH,CHEST DISCOMFORT [id number] 12/13/2018 11:15:00 12:57:00 DIS Outpatient KAMRAN LINDQUIST APRN [facility] ER LEFT SIDE RIB PAIN [id number] 11/22/2018 16:14:00 18:46:00 DIS Outpatient KAMRAN LINDQUIST APRN Via [facility] ER SOA (ASTHMA), COPD CONC ERNS [id number] 11/05/2018 12:30:00 23:59:59 CLS Preadmit TRINO CHARLES APRN [facility] RT COUGH,ALLERGIC RHINITIS,SUSPECTED SLEEP APNEA [id number] 10/02/2018 21:00:00 23:59:59 CLS Preadmit TRINO CHARLES [employer] REPRESENTATIVE [facility] SLEEP COUGH,ALLERGIC RHINITIS,SUSPECTED SLEEP APNEA [id number] 09/10/2018 22:10:00 22:56:00 DIS Outpatient JASON GERARDO [facility] ER FEVER,INCISIONS RED AFT ER SURGERY [id number] 08/26/2018 07:53:00 13:10:00 DIS Outpatient STACY HOLGUIN DO Via [facility] 4TH POSSIBLE PE,ASTHMA EXAC ERBATION [id number] 08/21/2018 11:52:00 10:45:00 DIS Outpatient TEDDY PHILIP MD [facility] SDC ABDOMINAL PAIN [id number] 08/20/2018 05:50:00 13:36:00 DIS Outpatient TEDDY PHILIP MD [facility] PREOP ABDOMINAL PAIN [id number] 08/14/2018 10:12:00 23:59:59 CLS Outpatient LEAH WOLF MD [facility] RAD SCREENING [id number] 07/30/2018 09:04:00 12:52:00 DIS Emergency TIMOSTEPHANIE Via [facility] ER LT GROIN PAIN [id number] 07/17/2018 23:36:00 03:43:00 DIS Emergency BABRA DOSTEPHANIE Vi a [facility] ER FEVER,COUGH [id number] 07/07/2018 23:15:00 14:05:00 DIS Inpatient LEAH WOLF MD Via [facility] 4TH COPD EXACERBATION,RESP DISTRESS W/ HYPOXIA ACUTE O [id number] 06/20/2018 10:07:00 23:59:59 CLS Outpatient LEAH WOLF MD [facility] RAD CHEST XRAY LATERAL [id number] 06/09/2018 00:10:00 23:59:59 CLS Preadmit HOWARD SALDANA MD [facility] LAB L97.222 I87.332 I87.321 J44.9 [id number] 03/17/2018 09:03:00 00:01:00 DIS Outpatient HOWARD SALDANA MD [facility] LAB L97.222 I87.332 I87.321 J44.9 [id number] 04/24/2018 09:01:00 23:59:59 CLS Outpatient ANNIKA HOLLEY MD [facility] WOUNDCARE [id number] 04/17/2018 08:32:00 12/06/2 018 23:59:59 CLS Outpatient ANNIKA HOLLEY MD [facility] WOUNDCARE [id number] 04/14/2018 07:13:00 018 10:20:00 DIS Inpatient LEAH WOLF MD [facility] 4TH COPD EXACERBATION [id number] 04/10/2018 09:03:00 018 23:59:59 CLS Outpatient ANNIKA HOLLEY MD [facility] WOUNDCARE [id number] 04/07/2018 12:25:00 018 23:59:59 CLS Outpatient BARRON VALLE APRN [facility] WOUNDCARE [id number] 04/01/2018 09:34:00 018 23:59:59 CLS Outpatient BARRON VALLE APRN [facility] WOUNDCARE [id number] 03/27/2018 08:59:00 018 23:59:59 CLS Outpatient ANNIKA HOLLEY MD [facility] WOUNDCARE [id number] 03/17/2018 09:09:00 018 23:59:59 CLS Outpatient HOWARD SALDANA MD [facility] WOUNDCARE [id number] 03/10/2018 09:35:00 018 23:59:59 CLS Outpatient HOWARD SALDANA MD [facility] WOUNDCARE [id number] 03/05/2018 09:18:00 018 23:59:59 CLS Outpatient HOWARD SALDANA MD [facility] WOUNDCARE [id number] 02/27/2018 00:05:00 018 02:43:00 DIS Emergency STEPHANIE ECKERT DO a [facility] ER LEFT LEG BLEEDING,STS H X OF BLOOD CLOTS [id number] 02/01/2018 09:03:00 018 10:12:00 DIS Emergency FELIBERTO LEE MD [facility] ER LT LEG PAIN [id number] 11/16/2017 20:45:00 018 10:20:00 DIS Inpatient ALMANZA DO, MARV K [facility] 4TH COPD EXACERBATION, SOA, ALLERGIC RHINITIS [id number] 10/15/2017 10:15:00 018 23:59:59 CLS Preadmit LUCIANO ROSARIO, LEAH Jacome [facility] PUL J44.1 [id number] 07/25/2017 10:00:00 018 00:01:00 DIS Outpatient LEAH WOLF MD [facility] PUL J44.1 [id number] 09/02/2017 08:28:00 018 11:00:00 DIS Emergency SOURAV ROSARIO, ALVA Casanova [facility] ER TROUBLE BREATHI NG,COPD ISSUES,ASTHMA [id number] 08/07/2017 16:17:00 018 11:15:00 DIS Inpatient CEDRICK ROSARIO, TEDDY carmichael [facility] 4TH BLOOD IN STOOL/ABD PAIN /LESION LEFT THIGH [id number] 08/05/2017 05:57:00 018 15:32:00 DIS Outpatient TEDDY PHILIP MD [facility] PREOP COLONOSCOPY/EGD [id number] 06/04/2017 10:00:00 018 00:01:00 DIS Outpatient LEAH WOLF MD Via [facility] J44.1 [id number] 06/09/2017 10:47:00 018 13:57:00 DIS Emergency SHELL FOX MD [facility] ER LEFT RIB PAIN;FEVER [id number] 06/05/2017 06:50:00 018 16:42:00 DIS Outpatient HOWARD HUGHES MD [facility] LEFT KNEE TORN MEDIAL MENISCUS [id number] 05/30/2017 11:00:00 018 11:12:00 DIS Outpatient HOWARD HUGHES MD [facility] PREOP LEFT KNEE TORN MEDIAL MENISCUS [id number] 05/29/2017 08:11:00 018 23:59:59 CLS Outpatient HOWARD SALDANA MD [facility] WOUNDCARE [id number] 05/22/2017 14:09:00 018 23:59:59 CLS Outpatient HOWARD SALDANA MD [facility] WOUNDCARE [id number] 05/18/2017 02:15:00 018 14:33:00 DIS Inpatient PRERNA MAYFIELD MD [facility] 4TH COPD EXACERBATION;ACUTE ON CHRONIC RESPIRATORY [id number] 05/15/2017 13:17:00 018 23:59:59 CLS Outpatient HOWARD SALDANA MD [facility] WOUNDCARE [id number] 05/08/2017 12:10:00 23:59:59 CLS Outpatient HOWARD SALDANA MD [facility] WOUNDCARE [id number] 05/05/2017 20:29:00 017 00:36:00 DIS Emergency ALVA BENJAMIN MD Via [facility] ER WOUND CARE L LE G PAIN [id number] 05/01/2017 08:30:00 017 23:59:59 CLS Outpatient HOWARD SALDANA MD [facility] WOUNDCARE [id number] 04/19/2017 11:00:00 12:10:00 DIS Inpatient HOWARD GROVES MD Via [facility] 4TH NASAL POLYPS,URETERAL S TONE [id number] 04/18/2017 11:00:00 017 23:59:59 CLS Preadmit RONAN ROSARIO, ARIES Marrero ia [facility] SDC RIGHT URETERAL STONES [id number] 04/12/2017 08:57:00 017 09:45:00 DIS Outpatient HOWARD GROVES MD [facility] PREOP NASAL POLYPS,RT URETERA L STONE [id number] 04/03/2017 15:10:00 017 23:59:59 CLS Outpatient ARIES FERRARO MD [facility] RAD Z87.442 [id number] 04/02/2017 10:47:00 23:59:59 CLS Outpatient CHULA LAKE [facility] RAD DERANGEMENT OF OTHER LA TERAL MENISCUS DUE TO OLD T [id number] 03/29/2017 10:41:00 23:59:59 CLS Outpatient TEDDY PHILIP MD [facility] RAD RUQ PAIN [id number] 03/26/2017 14:42:00 23:59:59 CLS Outpatient LEAH WOLF MD [facility] CARD PREOP [id number] 03/20/2017 10:18:00 23:59:59 CLS Outpatient LEAH WOLF MD [facility] RAD HYPERECHOIC LESION 730 POSITION R BREAST [id number] 03/20/2017 10:12:00 23:59:59 CLS Outpatient LUCIANO ROSARIO, LEAH Jacome [facility] RAD 6MM R NODULE [id number] 03/16/2017 11:49:00 14:37:00 DIS Emergency JESUS ROSARIO, FELIBERTO Clayton [facility] ER L LEG PAIN, SWELLING, R EDNESS [id number] 03/07/2017 14:22:00 23:59:59 CLS Outpatient LEAH WOLF MD [facility] RAD R LOWER ABD PAIN, TRAPE ASE PLACED 05/28/69 [id number] 02/15/2017 11:33:00 23:59:59 CLS Outpatient YANELI ROSARIO, HOWARD Logan [facility] RAD NASAL POLYS [id number] 01/01/2017 21:37:00 01:03:00 DIS Emergency SOURAV ROSARIO, ALVA Casanova [facility] ER SOB [id number] 12/25/2016 08:27:00 23:59:59 CLS Outpatient LEAH WOLF MD [facility] RAD 6 MM ASYMMETRY LATERAL R BREAST [id number] 12/16/2016 18:36:00 017 20:36:00 DIS Emergency STEPHANIE GREENWOOD [facility] ER L LEG PAIN/SWELLING [id number] 12/10/2016 14:47:00 017 23:59:59 CLS Outpatient LEAH WOLF MD [facility] RAD SCREENING Z12.31 [id number] 12/06/2016 00:16:00 017 23:59:59 CLS Preadmit LEAH WOLF MD [facility] LAB COMADIN THERAPY [id number] 09/06/2016 16:15:00 017 00:01:00 DIS Outpatient LEAH WOLF MD [facility] LAB COMADIN THERAPY [id number] 09/19/2016 10:34:00 017 23:59:59 CLS Outpatient LEAH WOLF MD [facility] RAD MICRONODULES RML AND LL L BASES [id number] 08/09/2016 07:51:00 017 23:59:59 CLS Outpatient CHARITY ROSARIO FACC, PAVAN WOLFF CC DS [facility] CARD CLAUDICATION,CAD,COPD,SOB,LEG SWELLING,HTN [id number] 05/11/2016 14:21:00 017 00:01:00 DIS Outpatient LEAH WOLF MD [facility] LAB COMADIN THERAPY [id number] 08/07/2016 14:33:00 017 23:59:59 CLS Outpatient CHARITY ROSARIO FACC, PAVAN WOLFF CC DS [facility] CARD CLAUDICATION,CAD,COPD,SOB,LEG SWELLING,HYPERTENSIO [id number] 08/03/2016 09:28:00 017 23:59:59 CLS Outpatient LEAH WOLF MD [facility] LAB RECTAL BLEED [id number] 07/23/2016 14:07:00 017 14:25:00 DIS Inpatient LEAH WOLF MD [facility] 4TH AECOPD HYPONATREMIA DYS PNEA [id number] 07/11/2016 13:17:00 23:59:59 CLS Outpatient CHARITY ROSARIO FACC, PAVAN WOLFF CC DS [facility] RAD CLAUDICATION,CAD,COPD,SOB,LEG SWELLING,HYPERTENSIO [id number] 07/06/2016 15:33:00 017 19:10:00 DIS Emergency ALVA BENJAMIN MD Via [facility] ER L LEG PAIN/L AB D PAIN [id number] 06/06/2016 05:44:00 10:26:00 DIS Inpatient LEAH WOLF MD [facility] 4TH COPD ACUTE EXACERBATION -DYSPNEA [id number] 06/04/2016 13:04:00 15:30:00 DIS Emergency KAMRAN LINDQUIST APRN [facility] ER COUGH/CONGESTION WHEEZI NG [id number] 04/16/2016 15:26:00 15:59:00 DIS Outpatient LEAH WOLF MD [facility] SLEEP OBSERVED APNEA,SNORING, HPN,EDS,AM KHALIL [id number] 03/16/2016 12:21:00 00:01:00 DIS Outpatient LEAH WOLF MD Via [facility] LAB COMADIN THERAPY [id number] 03/16/2016 10:58:00 23:59:59 CLS Outpatient CHULA LAKE Via [facility] RAD OTHER INJURY OF MUSCLES AND TENDONS [id number] 03/02/2016 19:12:00 21:14:00 DIS Emergency ALVA BENJAMIN MD Via [facility] ER SOA [id number] 01/24/2016 12:07:00 13:29:00 DIS Emergency KAMRAN LINDQUIST APRN Via [facility] ER SOA [id number] 12/08/2015 09:32:00 016 23:59:59 CLS Outpatient LEAH WOLF MD Via [facility] RAD SCREENING [id number] 11/30/2015 12:25:00 14:26:00 DIS Emergency STEPHANIE ECKERT DO a [facility] ER COUGH/CONGESTION SOA [id number] 10/24/2015 13:32:00 00:01:00 DIS Outpatient LEAH WOLF MD Via [facility] LAB COMADIN THERAPY [id number] 11/07/2015 19:21:00 21:58:00 DIS Emergency JHOANA SALOMÓN LOVE D Via [facility] ER CONGESTION,SOA,HEADACHE [id number] 10/13/2015 11:41:00 13:50:00 DIS Emergency KAMRAN LINDQUIST APRN Via [facility] ER LEFT SIDE PAIN SOA [id number] 09/24/2015 15:42:00 18:47:00 DIS Emergency JESUS ROSARIO, FELIBERTO S Via [facility] ER LEFT ANKLE/FOOT PAIN [id number] 09/17/2015 12:36:00 14:58:00 DIS Emergency SOURAV ROSARIO, ALVA Casanova Via [facility] ER LIGHTHEADED/ISSA SEA [id number] 09/15/2015 06:06:00 15:22:00 DIS Outpatient TEDDY PHILIP MD Via [facility] SDC RECURRENT VENTRAL HERNI A [id number] 09/12/2015 08:16:00 Anabela 08:50:00 DIS Outpatient TEDDY PHILIP MD Via [facility] PREOP RECURRENT VENTRAL HERNI A [id number] 09/02/2015 08:53:00 23:59:59 CLS Outpatient CHARLINE NAVARRO Via [facility] LAB CAD,HYPERCHOLESTEROLEMIA, HYPERTENSION,SYNCOPE EMIR [id number] 08/29/2015 11:56:00 23:59:59 CLS Outpatient LEAH WOLF MD Via [facility] RAD INFLTRATE [id number] 08/03/2015 15:48:00 00:01:00 DIS Outpatient LEAH WOLF MD Via [facility] LAB COMADIN THERAPY [id number] 08/10/2015 09:19:00 18:05:00 DIS Inpatient LEAH WOLF MD Via [facility] 4TH ASTHMA,EXACERBATION,HYP OXEMIA [id number] 06/20/2015 16:01:00 13:24:00 DIS Inpatient LEAH WOLF MD Via [address] ASTHMA EXASPERATION [id number] 06/08/2015 14:12:00 15:48:00 DIS Emergency KAMRAN LINDQUIST APRN Via [facility] ER COUGH/SOA [id number] 05/24/2015 13:35:00 23:59:59 CLS Outpatient LEAH WOLF MD Via [facility] RAD LEFT UPPER BREAST TENDE RNESS [id number] 05/03/2015 10:17:00 23:59:59 CLS Outpatient LEAH WOLF MD Via [facility] RAD MEMORY LOSS [id number] 04/16/2015 12:35:00 13:35:00 DIS Emergency JESUS ROSARIO, FELIBERTO [place] Via [facility] ER ASTHMA ISSUES [id number] 03/07/2015 15:17:00 11:50:00 DIS Inpatient LEAH WOLF MD Via [facility] 4TH ASTHMA HYPOXIA [id number] 02/01/2015 08:54:00 00:01:00 DIS Outpatient LEAH WOLF MD Via [facility] LAB COMADIN THERAPY [id number] 02/05/2015 14:23:00 16:48:00 DIS Emergency JHOANA DO, SALOMÓN Jennifer Via [facility] ER COPD/ASTHMA ISSUES [id number] 12/06/2014 14:56:00 015 23:59:59 CLS Outpatient LEAH WOLF MD Via [facility] RAD SCREENING [id number] 11/09/2014 17:16:00 23:59:59 CLS Outpatient LEAH WOLF MD Via [facility] LAB ABD PAIN [id number] 10/06/2014 09:35:00 015 00:01:00 DIS Outpatient LEAH WOLF MD Via [facility] LAB COMADIN THERAPY [id number] 10/10/2014 13:14:00 015 14:45:00 DIS Emergency KAMRAN LINDQUIST APRN Via [facility] ER SOA [id number] 09/26/2014 20:50:00 015 19:36:00 DIS Inpatient TEDDY PHILIP MD [facility] SURGICAL RIGHT GLUTEAL HEMATOMA [id number] 09/23/2014 08:05:00 015 11:10:00 DIS Emergency SHELL FOX MD Via [facility] ER FELL OFF PORCH HURT A RM [id number] 09/09/2014 22:20:00 015 17:20:00 DIS Inpatient LEAH WOLF MD Via [facility] 4TH AECOPD [id number] 09/08/2014 10:04:00 015 16:50:00 DIS Outpatient TEDDY PHILIP MD Via [facility] SDC ABD PAIN,HX OF POLYPS [id number] 09/06/2014 10:52:00 015 23:59:59 CLS Outpatient TEDDY PHILIP MD Via [facility] PREOP ABD PAIN HX OF POLYS [id number] 06/07/2014 17:18:00 015 10:37:00 DIS Outpatient LEAH WOLF MD Via [facility] LAB COUMADIN,ANTICOAG THERA PY, DVT [id number] 07/29/2014 10:22:00 015 10:36:00 DIS Outpatient LUCIANO ROSARIO, LEAH Jacome Via [facility] LAB ACUTE VENOUS EMBOLISM A ND THROMBOSIS [id number] 06/16/2014 15:00:00 015 16:13:00 DIS Emergency KAMRAN LINDQUIST PHARMACEUTICAL SPECIALTY REPRESENTATIVE Via [facility] ER COUGH SOA/WHEEZING [id number] 05/18/2014 15:38:00 015 00:01:00 DIS Outpatient LUCIANO ROSARIO, LEAH Jacome Via [facility] LAB COUMADIN,ANTICOAG THERA PY, DVT [id number] 04/30/2014 00:35:00 23:59:59 CLS Preadmit LEAH WOLF MD Via [facility] SURG RCR CELLULITIS [id number] 02/01/2014 20:20:00 014 00:01:00 DIS Outpatient LEAH WOLF MD Via [facility] SURG RCR CELLULITIS [id number] 04/26/2014 08:29:00 12:01:00 DIS Emergency ALVA BENJAMIN MD Via [facility] ER EARACHE/JAW JONATHAN N [id number] 04/14/2014 08:03:00 23:59:59 CLS Outpatient CHARLINE NAVARRO Via [facility] LAB HYPERLIPIDE SAMIR [id number] 03/18/2014 10:53:00 13:17:00 DIS Emergency KAMRAN LINDQUIST PHARMACEUTICAL SPECIALTY REPRESENTATIVE Via [facility] ER COUGH/SOA [id number] 03/15/2014 11:15:00 12:07:00 DIS Outpatient LEAH WOLF MD Via [facility] REHAB SCIATICA [id number] 03/10/2014 08:41:00 10:02:00 DIS Emergency ALVA BENJAMIN MD Via [facility] ER COUGH/CONGESTIO N/ASTHMA [id number] 01/24/2014 16:29:00 014 10:30:00 DIS Inpatient LEAH WOLF MD Via [facility] SURGICAL CELLULITIS LLE; [facility] ED PT/INR [id number] 01/04/2014 08:54:00 014 12:11:00 DIS Emergency BABAR , STEPHANIE Hathaway Vi a [facility] ER LEFT LEG DRAINAGE [id number] 12/31/2013 07:54:00 014 09:31:00 DIS Emergency ANDRES HOWE MD Via [facility] ER LEFT LEG PAIN [id number] 12/19/2013 20:02:00 014 20:33:00 DIS Emergency KAMRAN LINDQUIST APRN Via [facility] ER ANKLE INJ [id number] 12/16/2013 18:38:00 11:09:00 DIS Inpatient LEAH WOLF MD Via [facility] ICU ACUTE RESPIRATORY FAILU RE DISTRESS; POSSIBLE LEA [id number] 10/28/2013 10:37:00 014 00:01:00 DIS Outpatient LEAH WOLF MD Via [facility] LAB COUMADIN,ANTICOAG THERA PY, DVT [id number] 11/24/2013 15:01:00 23:59:59 CLS Outpatient LEAH WOLF MD Via [facility] RAD SCREENING [id number] 11/18/2013 09:59:00 014 23:59:59 CLS Outpatient LEAH WOLF MD Via [facility] RAD KNEE PAIN [id number] 11/03/2013 09:30:00 014 09:44:00 DIS Outpatient LEAH WOLF MD Via [facility] WOUNDCARE LEFT LEG OPEN WOUNDS [id number] 10/28/2013 10:17:00 23:59:59 CLS Outpatient ADAM BARON DO Via [facility] LAB ANEMIA [id number] 10/11/2013 10:43:00 13:05:00 DIS Emergency DEE DEE MALHOTRA Via [facility] ER HEARTBURN LEFT SIDE AB DOMINAL PAIN [id number] 10/10/2013 10:18:00 014 13:15:00 DIS Emergency DEE DEE MALHOTRA Via [facility] ER SWOLLEN LEGS L WORSE [id number] 10/07/2013 12:14:00 23:59:59 CLS Outpatient CHARLINE NAVARRO Via [facility] CARD CP,SYNCOP,P E,HTN,HEART PALPITATIONS [id number] 10/02/2013 10:36:00 23:59:59 CLS Outpatient CHARLINE NAVARRO Via [facility] CARD CP,SYNCOP,P E,HTN,HEART PALPITATIONS [id number] 09/04/2013 12:57:00 23:59:59 CLS Outpatient LEAH WOLF MD Via [facility] LAB EPIGASTRIC PAIN [id number] 09/04/2013 12:52:00 23:59:59 CLS Outpatient TERRI KIDD DO Via [facility] RT ASTHMA,COPD [id number] 08/18/2013 20:48:00 22:12:00 DIS Emergency ALVA BENJAMIN MD Via [facility] ER SOA [id number] 07/22/2013 12:32:00 14:19:00 DIS Emergency KAMRAN LINDQUIST APRN Via [facility] ER LEGS SWELLING [id number] 07/01/2013 20:00:00 18:10:00 DIS Inpatient LEAH WOLF MD Via [facility] 4TH ACUTE EXACERBATION OF C OPD, HYPOXIA [id number] 05/19/2013 11:30:00 00:01:00 DIS Outpatient LEAH WOLF MD Via [facility] LAB ANTICOAG THERAPY, DVT [id number] 05/27/2013 13:32:00 23:59:59 CLS Outpatient LEAH WOLF MD Via [facility] RAD FLU [id number] 05/17/2013 10:00:00 14:30:00 DIS Emergency KAMRAN LINDQUIST APRN Via [facility] ER CONGESTION SOA [id number] 04/20/2013 14:56:00 17:58:00 DIS Emergency DEE DEE MALHOTRA Via [facility] ER BLOOD IN STOOL [id number] 04/01/2013 13:42:00 10:31:00 DIS Outpatient LEAH WOLF MD Via [facility] REHAB MID AND LOW BACK PAIN [id number] 04/08/2013 06:05:00 14:33:00 DIS Outpatient HOWARD HUGHES MD Via [facility] SDC LEFT CUBITAL TUNNEL SY NDROME [id number] 04/06/2013 13:23:00 23:59:59 CLS Outpatient LEAH WOLF MD Via [facility] RT COPD [id number] 04/01/2013 12:37:00 23:59:59 CLS Outpatient HOWARD HUGHES MD Via [facility] PREOP LEFT CUBITAL TUNNEL SY NDROME [id number] 01/08/2013 09:51:00 00:01:00 DIS Outpatient LEAH WOLF MD Via [facility] LAB ANTICOAG THERAPY, DVT [id number] 12/22/2012 14:30:00 00:01:00 DIS Outpatient IZABELA MCCLAIN Via [facility] WOUNDCARE DELAYED WOUND H EAAKHIL L L/E [id number] 02/13/2013 11:45:00 23:59:59 CLS Outpatient LEAH WOLF MD Via [facility] RAD LOW BACK PAIN, [id number] 02/09/2013 15:57:00 013 23:59:59 CLS Outpatient KIRAN GREER AVIATION MANAGER Via [facility] ONC OV [id number] 02/09/2013 15:36:00 013 23:59:59 CLS Preadmit KIRAN GREER AVIATION MANAGER Via [facility] ONC OV [id number] 02/09/2013 12:04:00 013 23:59:59 CLS Outpatient LEAH WOLF MD Via [facility] RAD BACK PAIN X3 WKS [id number] 10/01/2012 08:09:00 00:01:00 DIS Outpatient KALEIGH ROSARIO, SHEILA Nicolas Via [facility] SDC ANXIETY ON LEG SWELLING [id number] 12/01/2012 08:31:00 23:59:59 CLS Outpatient LEAH WOLF MD Via [facility] RAD SCREENING [id number] 10/27/2012 12:53:00 00:01:00 DIS Outpatient LEAH WOLF MD Via [facility] LAB DVT,CUMADN THERAPY [id number] 11/18/2012 12:02:00 23:59:59 CLS Outpatient LEAH WOLF MD Via [facility] RT SOB [id number] 10/24/2012 19:25:00 013 20:47:00 DIS Emergency RAJESH TOWNSEND MD Via [facility] ER LEFT LEG PAIN [id number] 09/29/2012 16:04:00 23:59:59 CLS Outpatient [id number] 09/28/2012 23:11:00 013 13:55:00 DIS Inpatient LEAH WOLF MD Via [facility] 4TH POST OP WOUND INFECTION [id number] 09/27/2012 08:44:00 013 09:26:00 DIS Emergency STEPHANIE ECKERT DO [facility] ER L LEG SWELLING [id number] 09/24/2012 09:21:00 18:50:00 DIS Outpatient SHEILA FARRIS MD Via [facility] SDC VERICOSE VEINS [id number] 09/22/2012 07:58:00 23:59:59 CLS Outpatient SHEILA FARRIS MD Via [facility] RAD VARICOSE VEINS [id number] 09/09/2014 22:44:00 Document Registration [id number] 09/09/2014 22:40:00 Document Registration [id number] 09/09/2014 22:40:00 Document Registration [id number] 09/09/2014 22:40:00 Document Registration [id number] 09/09/2014 22:40:00 Document Registration [id number] 09/09/2014 22:40:00 Document Registration [id number] 09/09/2014 22:40:00 Document Registration [id number] 09/09/2014 22:40:00 Document Registration [id number] 09/09/2014 22:40:00 Document Registration [id number] 09/09/2014 22:40:00 Document Registration [id number] 09/09/2014 22:40:00 Document Registration [id number] 07/19/2014 15:45:00 Document Registration [id number] 02/20/2013 13:15:00 Document Registration [id number] 12/29/2012 00:00:00 Document Registration [id number] 11/21/2012 00:00:00 Document Registration [id number] 08/15/2012 11:11:00 Document Registration [id number] 08/07/2012 12:12:00 Document Registration [id number] 07/30/2012 04:55:00 Document Registration [id number] 07/21/2012 09:05:00 Document Registration [id number] 07/13/2012 17:06:00 Document Registration [id number] 06/16/2012 09:44:00 Document Registration [id number] 06/09/2012 14:56:00 Document Registration [id number] 04/30/2012 11:41:00 Document Registration [id number] 04/30/2012 09:34:00 Document Registration [id number] 04/08/2012 08:40:00 Document Registration [id number] 03/31/2012 09:48:00 Document Registration [id number] 03/18/2012 14:52:00 Document Registration [id number] 01/29/2012 10:51:00 Document Registration [id number] 01/16/2012 15:45:00 Document Registration [id number] 12/20/2011 08:56:00 Document Registration [id number] 12/20/2011 08:39:00 Document Registration [id number] 12/12/2011 20:28:00 Document Registration [id number] 12/08/2011 14:27:00 Document Registration [id number] 11/29/2011 10:46:00 Document Registration [id number] 10/31/2011 08:45:00 Document Registration [id number] 10/29/2011 13:18:00 Document Registration [id number] 10/15/2011 07:50:00 Document Registration [id number] 10/10/2011 07:58:00 Document Registration [id number] 09/13/2011 11:13:00 Document Registration [id number] 09/12/2011 00:00:00 Document Registration [id number] 08/10/2011 09:17:00 Document Registration [id number] 07/30/2011 16:25:00 Document Registration [id number] 06/26/2011 15:47:00 Document Registration [id number] 06/21/2011 16:17:00 Document Registration [id number] 06/18/2011 14:25:00 Document Registration [id number] 06/13/2011 11:53:00 Document Registration [id number] 06/10/2011 18:25:00 Document Registration [id number] 06/04/2011 15:48:00 Document Registration [id number] 04/30/2011 14:32:00 Document Registration [id number] 04/12/2011 13:02:00 Document Registration [id number] 04/11/2011 16:12:00 Document Registration [id number] 04/02/2011 20:11:00 Document Registration [id number] 02/21/2011 22:13:00 Document Registration [id number] 02/01/2011 11:33:00 Document Registration [id number] 01/19/2011 10:17:00 Document Registration [id number] 12/27/2010 14:10:00 Document Registration [id number] 12/13/2010 07:28:00 Document Registration [id number] 11/24/2010 11:37:00 Document Registration [id number] 11/07/2010 14:19:00 Document Registration [id number] 10/25/2010 14:53:00 Document Registration [id number] 10/23/2010 10:07:00 Document Registration [id number] 10/23/2010 09:54:00 Document Registration [id number] 10/13/2010 21:05:00 Document Registration [id number] 10/10/2010 15:28:00 Document Registration [id number] 09/05/2010 13:00:00 Document Registration [id number] 08/06/2010 13:10:00 Document Registration [id number] 07/24/2010 08:55:00 Document Registration [id number] 07/24/2010 08:53:00 Document Registration [id number] 07/24/2010 08:49:00 Document Registration [id number] 07/17/2010 09:01:00 Document Registration [id number] 07/05/2010 12:25:00 Document Registration [id number] 05/26/2010 16:34:00 Document Registration [id number] 05/13/2010 14:04:00 Document Registration [id number] 04/18/2010 12:47:00 Document Registration [id number] 04/10/2010 14:19:00 Document Registration [id number] 03/24/2010 11:42:00 Document Registration [id number] 03/07/2010 15:46:00 Document Registration [id number] 02/21/2010 09:30:00 Document Registration [id number] 02/08/2010 10:22:00 Document Registration [id number] 01/20/2010 13:42:00 Document Registration [id number] 01/05/2010 14:23:00 Document Registration [id number] 12/30/2009 16:00:00 Document Registration [id number] 12/29/2009 10:54:00 Document Registration [id number] 12/13/2009 05:58:00 Document Registration [id number] 12/06/2009 08:53:00 Document Registration [id number] 11/17/2009 10:51:00 Document Registration [id number] 11/17/2009 10:16:00 Document Registration [id number] 11/15/2009 14:09:00 Document Registration [id number] 11/10/2009 11:09:00 Document Registration [id number] 11/08/2009 08:36:00 Document Registration [id number] 11/03/2009 13:33:00 Document Registration [id number] 11/02/2009 12:29:00 Document Registration [id number] 10/19/2009 11:30:00 Document Registration [id number] 10/05/2009 09:25:00 Document Registration [id number] 08/18/2009 08:03:00 Document Registration [id number] 08/08/2009 15:02:00 Document Registration [id number] 08/04/2009 14:27:00 Document Registration [id number] 08/04/2009 13:31:00 Document Registration [id number] 08/01/2009 12:00:00 Document Registration [id number] 07/28/2009 15:24:00 Document Registration [id number] 07/25/2009 16:09:00 Document Registration [id number] 07/22/2009 12:13:00 Document Registration [id number] 07/21/2009 14:00:00 Document Registration [id number] 07/18/2009 14:15:00 Document Registration [id number] 07/14/2009 16:00:00 Document Registration [id number] 07/11/2009 16:02:00 Document Registration [id number] 04/28/2009 12:43:00 Document Registration [id number] 03/31/2009 12:55:00 Document Registration [id number] 05/11/2007 13:26:00 Document Registration [id number] 08/26/2006 20:00:00 Document Registration
== END 2019-12-03 20:19 | disposition home or self-care (01) ==
LOC: EDUNIT# 18:21 → ER 18:22
DX: M54.5 Low back pain (principal); R31.29 Other microscopic hematuria; J44.9 Chronic obstructive pulmonary disease, unspecified; I10 Essential (primary) hypertension; G62.9 Polyneuropathy, unspecified; K21.9 Gastro-esophageal reflux disease without esophagitis; K58.1 Irritable bowel syndrome with constipation; F41.9 Anxiety disorder, unspecified; Z80.0 Family history of malignant neoplasm of digestive organs; Z82.49 Family history of ischemic heart disease and other diseases of the circulatory system; Z79.52 Long term (current) use of systemic steroids; Z88.6 Allergy status to analgesic agent; Z88.7 Allergy status to serum and vaccine; Z86.718 Personal history of other venous thrombosis and embolism; Z91.040 Latex allergy status; Z88.8 Allergy status to other drugs, medicaments and biological substances; Z79.51 Long term (current) use of inhaled steroids; Z79.01 Long term (current) use of anticoagulants; Z87.891 Personal history of nicotine dependence; Z80.8 Family history of malignant neoplasm of other organs or systems
CPT/HCPCS: 81000; 99282

== ENCOUNTER 2019-12-05 10:08 | Emergency (ER) | payer MEDICAID ==
[~2019-12-05] VITALS: Ht 165.1 cm; Wt 99.0 kg
[~2019-12-05 10:08] MED LIST changes: +OXYC1TAB87 PO
[2019-12-05] MEDS ORDERED: NS IV 1000 ML 1,000 ML IV SCH (10:28)
[2019-12-05] MEDS ORDERED: ONDANSETRON 4 MG/2 ML (SDV) Z0FRAN IVP ONE (10:30)
--- NOTE | 2019-12-05 10:35 | ED Back Pain ---
General Chief Complaint: Back Problems Stated Complaint: BACK / RIGHT SIDE PAIN Source of Information: Patient Exam Limitations: No Limitations History of Present Illness Date Seen by Provider: Dec 05, 2019 Time Seen by Provider: 10:20 Initial Comments Patient presents ER by private conveyance from home with chief complaint that in the past few days she's had increasing pain in her right lower quadrant abdomen and pelvis. This started in her back a couple days ago and has migrated today down to her pelvis. She has pain unlike anything she ever had before. She has chronic back pain with hydrocodone and Percocet for her pain. She has not taken anything for pain in the last 2-3 days. She says when she sits down to 2 out of 10 but when she stands up it becomes an 8 out of 10. She's not having any dysuria, hematuria grossly or discharge. She was seen 2 days ago in the emergency room for the same problem and told the provider her pain is been going on for little over a year. Urinalysis showed a little bit of red blood which they thought could be from her warfarin usage secondary to history of blood clots. No imaging was done at that time. PT/INR from 5 days ago by primary care was said to be 2.9 per the patient. Patient is a history of asthma/COPD on oxygen to sleep at night 2-3 L. She denies any fevers cough chills. She has a history of diverticulosis. Allergies and Home Medications Allergies Coded Allergies: aspirin (Verified Allergy, Severe, ANAPHYLAXIS, 03/03/19) ibuprofen (Verified Allergy, Severe, ANAPHYLAXIS, 03/03/19) ketorolac (Verified Allergy, Severe, ANAPHYLAXIS, 03/03/19) tetanus and diphtheria toxoids (Unverified Allergy, Severe, ANAPHYLAXIS, 03/03/19) aloe (Verified Allergy, Mild, RASH, 03/03/19) latex (Verified Allergy, Mild, RASH, 03/03/19) OCCASIONALLY IS IRRITATING SKIN scopolamine (Verified Allergy, Mild, 03/03/19) iodine (Verified Adverse Reaction, Unknown, 03/03/19) Patient states she got dizzy, diaphoretic and saw stars. Uncoded Allergies: ALOE VERA (Allergy, Unknown, 12/23/05) SILK SUTURES (Adverse Reaction, Unknown, BODY REJECTS SUTURES, 10/07/13) Home Medications Albuterol Sulfate 8.5 Gm Hfa.aer.ad, 2 PUFF IH Q4H PRN for SHORTNESS OF BREATH, (Reported) Albuterol Sulfate 2.5 Mg/3 Ml Vial.neb, 2.5 MG NEB Q2H PRN for SHORTNESS OF BREATH, (Reported) Alprazolam 1 Mg Tablet, 1 MG PO BID PRN for ANXIETY, (Reported) Calcium Carbonate/Vitamin D3 1 Each Tablet, 1 TAB PO BID, (Reported) Epinephrine 0.3 Mg/0.3 Ml Auto.injct, 0.3 MG IJ PRN, (Reported) Fluticasone Propionate 1 Ea Aero, 2 PUFF INH BID, (Reported) Furosemide 40 Mg Tablet, 40 MG PO DAILY, (Reported) Hydrocodone/Acetaminophen 1 Each Tablet, 1 TAB PO Q6- 8H PRN for PAIN-MODERATE (5-7), (Reported) Hyoscyamine Sulfate 0.125 Mg Tab.rapdis, 0.125 MG SL Q6H PRN for ABDOMINAL PAIN, (Reported) Ipratropium [place] 0.2 Mg/1 Ml Solution, 1 VIAL NEB TID, (Reported) MIXES WITH ALBUTEROL SOLUTION Loratadine 10 Mg Tablet, 10 MG PO DAILY, (Reported) Montelukast Sodium 10 Mg Tablet, 10 MG PO HS, (Reported) Oxycodone HCl/Acetaminophen 1 Each Tablet, 1-2 TAB PO Q4H PRN for PAIN-MODERATE (5-7) Prescribed by: ALVA LAMAR on 12/03/192010 Pantoprazole Sodium 40 Mg Tablet.dr, 40 MG PO DAILY, (Reported) Potassium Chloride 10 Meq Tablet.er, 20 MEQ PO BID, (Reported) TAKES 2 (10MEQ) TABLETS Prednisone 20 Mg Tab, 20 MG PO UD, (Reported) ON TAPER DOSE 3 TABS X 3 DAYS, THEN 2 TABS X 3 DAYS, THEN 1 T X 3 DAYS= PT IS JUST STARTING THEN 1 TAB X 3 DAYS Promethazine HCl 25 Mg Tablet, 25 MG PO Q6H PRN for NAUSEA/VOMITING-2ND LINE, (Reported) Warfarin Sodium 4 Mg Tablet, 4 MG PO MO,,TH,FR,SA@1800, (Reported) Warfarin Sodium 5 Mg Tablet, 5 MG PO SAT,SAT @1800, (Reported) Patient Home Medication List Home Medication List Reviewed: Yes Review of Systems Constitutional: No chills, No diaphoresis, No fever EENTM: No eye pain, No tearing Respiratory: No cough, No short of breath Cardiovascular: No chest pain, No edema Gastrointestinal: abdominal pain; No nausea, No vomiting 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: No discharge, No dysuria Musculoskeletal: back pain; No joint pain Skin: No pruritus, No rash All Other Systems Reviewed Negative Unless Noted: Yes Past Xuplmzi-Zfgrrp-Muujlu Hx Patient Social History Alcohol Use: Denies Use Recreational Drug Use: No Drug of Choice: + IV COCAINE USE Smoking Status: Former Smoker Type Used: Cigarettes Former Smoker, Quit: Nov 17, 2000 2nd Hand Smoke Exposure: No Recent Foreign Travel: No Contact w/Someone Who Travel: No Recent Hopitalizations: Yes (05/21/19 knee sx) Immunizations Up To Date Tetanus Booster (TDap): Unknown PED Vaccines UTD: No Date of Pneumonia Vaccine: Sep 05, 2016 Date of Influenza Vaccine: Mar 11, 2012 Seasonal Allergies Seasonal Allergies: Yes Past Medical History Surgeries: Yes (C/S X2, KNEE SCOPE, SHOULDER SCOPE, d&C, BILAT ULNAR NERVE, VENA CAVA FILTE) Abdominal, Adenoidectomy, Section, Gallbladder, Hysterectomy, Orthopedic, Tonsillectomy, Tubal Ligation, Vascular Surgery Respiratory: Yes (O2 AT HS 2-3L/NC AND PRN--NOCTURNAL HYPOXIA; ) Asthma, Pneumonia, Chronic Bronchitis, Pulmonary Embolism, COPD Currently Using CPAP: No Currently Using BIPAP: No Cardiac: Yes Chronic Edema/Swelling, Deep Vein Thrombosis, High Cholesterol, Hypertension, Peripheral Vascular Neurological: Yes Neuropathy 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 Disorders: No 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 Disorders: Denies 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 History: Hysterectomy, Menopausal Sexually Transmitted Disease: No HIV/AIDS: No 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: Yes Kidney Infection, Bladder Infection, Kidney Stones Gastrointestinal: Yes (MULTIPLE HERNIA REPAIRS; MULTIPLE EGD'S /COLONOSCOPIES/POLYPECTOMIES) Abdominal Hernia, Gastroesophageal Reflux, Chronic Constipation, Chronic Diarrhea, Hepatitis, Polyps, Hiatal Hernia, Irritable Bowel Musculoskeletal: Yes Arthritis Endocrine: Yes ("PRE-DIABETIC" ) HEENT: Yes (NASAL POLYPS REMOVED) Cataract Loss of Vision: Denies Hearing Impairment: Denies Cancer: No Did You Recieve Any Treatments: No Psychosocial: Yes Anxiety Integumentary: Yes (CHRONIC VENOUS STASIS DERMATITIS AND ULCERS. ) Recent Skin Changes Blood Disorders: Yes (DVT'S/PE'S; PROBABLE PROTEIN C DEFICIENCY) Adverse Reaction/Blood Tranf: No (HAS HAD BLOOD WITH NO PROBLEMS) Family Medical History Alcoholism Alcoholism Arthritis Asthma 19 MOTHER Cancer G8 BROTHER G8 SISTER Cancer of colon Cancer of mouth Cardiovascular disease Cataract Cataracts Chest pain Colon cancer Completed stroke Diabetes mellitus Family history: Allergy Family history: Arthritis Family history: Asthma Family history: Cardiovascular disease Family history: Coronary thrombosis Family history: Diabetes mellitus G8 BROTHER G8 SISTER Family history: Gastrointestinal disease Family history: Hypertension Family history: Thyroid disorder Headache Hearing loss Heart disease 19 MOTHER History of - anemia History of - respiratory disease Hypercholesterolemia Hypercholesterolemia Hypertension 19 FATHER Infertile Malignant neoplasm of lung Myocardial infarction Myocardial infarction Psychotic disorder Respiratory disorder Stroke No Family History of: AIDS Abdominal aortic aneurysm Abdominal aortic aneurysm Warriors Mark's disease Fernando's disease Alzheimer's disease Aphasia Aphasia Congenital disease Congenital heart disease Congenital heart disease Congestive heart failure Coronary thrombosis Cystic fibrosis Cystic fibrosis Deafness or hearing loss Dementia Dementia Drug abuse Dysphagia Dysphasia Family history: Alzheimer's disease Family history: Breast disease Family history: Glaucoma Family history: Osteoporosis Fibrocystic disease of breast Gastroenteritis Glaucoma Headache disorder Hereditary disease History of - disorder History of drug abuse Human immunodeficiency virus (HIV) seropositivity Infertility Kidney disease Kidney disease Neoplasm Not obtainable due to adoption Osteoporosis Parkinson's disease Parkinson's disease Prostate cancer Psychosocial problem Seizure disorder Seizure disorder Severe allergy Thyroid disease Tuberculosis Tuberculosis Visual disorder Visual impairment Cancer, COPD, Vascular Disease Physical Exam Vital Signs Vital Signs - First Documented 12/05/19 10:18 Temp 36.8 Pulse 111 Resp 18 B/P (MAP) 141/100 (114) Pulse Ox 94 O2 Delivery Room Air Capillary Refill : Height, Weight, BMI Height: 5'5.00" Weight: 184lbs. 5.0oz. 83.423382lg; 36.00 BMI Method:Stated General Appearance: WD/WN, Mild Distress HEENT: PERRL/EOMI, Pharynx Normal, Moist Mucous Membranes Neck: Full Range of Motion, Normal Inspection, Non Tender Cardiovascular: Regular Rate, Rhythm, No Edema, Normal Peripheral Pulses Respiratory: Chest Non Tender, Lungs Clear, Normal Breath Sounds, No Accessory Muscle Use, No Respiratory Distress Peripheral Pulses: 2+ Radial Pulses (R), 2+ Radial Pulses (L) Gastrointestinal: Normal Bowel Sounds, Soft, Tenderness (right lower quadrant) Back: Normal Inspection, No CVA Tenderness, Vertebral Tenderness (low lumbar and sacral spine tenderness to palpation midline and right paralumbar) Extremity: Normal Capillary Refill, Normal Inspection, No Pedal Edema Neurologic/Psychiatric: Alert, Oriented x3, No Motor/Sensory Deficits, Normal Mood/Affect Skin: Normal Color, Warm/Dry Progress/Results/Core Measures Results/Orders Lab Results Laboratory Tests Test 12/05/19 10:30 12/05/19 10:41 Range/Units Urine Color YELLOW Urine Clarity CLEAR Urine pH 6.0 5-9 Urine Specific [place] 1.020 1.016-1.022 Urine Protein NEGATIVE NEGATIVE Urine Glucose (UA) NEGATIVE NEGATIVE Urine Ketones TRACE H NEGATIVE Urine Nitrite NEGATIVE NEGATIVE Urine Bilirubin NEGATIVE NEGATIVE Urine Urobilinogen 1.0 < = 1.0 MG/DL Urine Leukocyte Esterase 1+ H NEGATIVE Urine RBC (Auto) 2+ H NEGATIVE Urine RBC 5-10 H /HPF Urine WBC 0-2 /HPF Urine Squamous Epithelial Cells 10-25 H /HPF Urine Crystals PRESENT H /LPF Urine Calcium Oxalate Crystals FEW H /LPF Urine Bacteria FEW H /HPF Urine Casts NONE /LPF Urine Mucus NEGATIVE /LPF Urine Culture Indicated NO White Blood Count 9.1 4.3-11.0 10^3/uL Red Blood Count 4.48 4.35-5.85 10^6/uL Hemoglobin 12.6 11.5-16.0 G/DL Hematocrit 40 35-52 % Mean Corpuscular Volume 89 80-99 FL Mean Corpuscular Hemoglobin 28 25-34 PG Mean Corpuscular Hemoglobin Concent 32 32-36 G/DL Red Cell Distribution Width 15.9 H 10.0-14.5 % Platelet Count 281 130-400 10^3/uL Mean Platelet Volume 8.6 7.4-10.4 FL Neutrophils (%) (Auto) 60 42-75 % Lymphocytes (%) (Auto) 28 12-44 % Monocytes (%) (Auto) 10 0-12 % Eosinophils (%) (Auto) 1 0-10 % Basophils (%) (Auto) 0 0-10 % Neutrophils # (Auto) 5.4 1.8-7.8 X 10^3 Lymphocytes # (Auto) 2.6 1.0-4.0 X 10^3 Monocytes # (Auto) 0.9 0.0-1.0 X 10^3 Eosinophils # (Auto) 0.1 0.0-0.3 10^3/uL Basophils # (Auto) 0.0 0.0-0.1 10^3/uL Sodium Level 140 135-145 MMOL/L Potassium Level 3.6 3.6-5.0 MMOL/L Chloride Level 103 98-107 MMOL/L Carbon Dioxide Level 26 21-32 MMOL/L Anion Gap 11 5-14 MMOL/L Blood Urea Nitrogen 16 7-18 MG/DL Creatinine 0.71 0.60-1.30 MG/DL Estimat Glomerular Filtration Rate > 60 BUN/Creatinine Ratio 23 Glucose Level 99 70-105 MG/DL Calcium Level 9.0 8.5-10.1 MG/DL Corrected Calcium 9.2 8.5-10.1 MG/DL Total Bilirubin 0.3 0.1-1.0 MG/DL Aspartate Amino Transf (AST/SGOT) 16 5-34 U/L Alanine Aminotransferase (ALT/SGPT) 19 0-55 U/L Alkaline Phosphatase 69 40-136 U/L C-Reactive Protein High Sensitivity 0.12 0.00-0.50 MG/DL Total Protein 7.0 6.4-8.2 GM/DL Albumin 3.7 3.2-4.5 GM/DL My Orders Orders - JULIO C MERINO Ua Culture If Indicated (12/05/19 10:19) Ed Iv/Invasive Line Start (12/05/19 10:28) Ns Iv 1000 Ml (Sodium Chloride 0.9%) (12/05/19 10:28) Cbc With Automated Diff (12/05/19 10:28) Comprehensive Metabolic Panel (12/05/19 10:28) Hs C Reactive Protein (12/05/19 10:28) Ondansetron Injection (Zofran Injectio (12/05/19 10:30) Ct Abd/Pelvis Wo(Kidney Stone) (12/05/19 10:28) Medications Given in ED Current Medications Medications Dose Ordered Sig/Nahomi Route Start Time Stop Time Status Last Admin Dose Admin Ondansetron HCl 4 mg ONCE ONCE IVP 12/05/19 10:30 12/05/19 10:31 DC 12/05/19 10:46 4 MG Vital Signs/I&O 12/05/19 10:18 Temp 36.8 Pulse 111 Resp 18 B/P (MAP) 141/100 (114) Pulse Ox 94 O2 Delivery Room Air Progress Progress Note #1: Time: 10:36 Progress Note No evidence of shingles. Could be muscle scalpel versus ureteral calculi versus diverticulitis/colitis. Plan to get some lab and imaging of her a liter fluids and she has declined anything for pain at this time. Progress Note #2: Time: 14:13 Progress Note Patient's lab and imaging are unrevealing. I suspect this is just her chronic back pain. She is not taking her pain medicine. She wants try something different so we recommended topical creams with capsaicin oil as well as Lidoderm patches we will also recommend a muscle relaxant and she is okay with trying to encourage her not to use it with her pain medicine. She says it has someone come over and stay with her through the weekend to help her out. She has already talked to Dr. Wolf yesterday Saturday and he is to get her set up for physical therapy next week. Diagnostic Imaging Diagonstic Imaging: CT Plain Films/CT/US/NM/MRI: abdomen, pelvis Comments NAME: SUEJY FELIZ [facility] REC#: [id number] PT STATUS: REG ER : 1960 PHYSICIAN: JULIO C MERINO MD ADMIT DATE: 12/05/19/ER Draft Date of Exam:12/05/19 CT ABD/PELVIS WO(KIDNEY STONE) PROCEDURE: CT urinary tract, rule out kidney stone. TECHNIQUE: Multiple contiguous axial images were obtained through the abdomen and pelvis without the use of intravenous contrast. Auto Exposure Controls were utilized during the CT exam to meet ALARA standards for radiation dose reduction. INDICATION: Abdominal pain, diverticulosis COMPARISON: 03/29/2017 FINDINGS: The visualized lung bases are clear. Cholecystectomy. The unenhanced liver and spleen are unremarkable. The adrenal glands are unremarkable. The pancreas is unremarkable. The right kidney and ureter are unremarkable. The left kidney and ureter are unremarkable. Inferior vena cava filter is again noted. Prominent periaortic vasculature is again seen, appearing similar to the prior examination. Soft tissue nodular density lateral to the inferior vena cava is also again identified and stable from the prior examination. This is felt to relate to scar material. Scattered vascular calcifications without aneurysmal dilatation of the abdominal aorta. The urinary bladder is predominantly decompressed, but otherwise unremarkable. The uterus is not visualized, likely surgically absent. Mild to moderate colonic diverticulosis without CT evidence of acute diverticulitis. The appendix is unremarkable. No bowel obstruction or pneumatosis. Prominent tortuous vessels are noted within the right abdominal wall and left retroperitoneum, similar to the prior exam. No significant adenopathy, free air, or free fluid within the abdomen or pelvis. Scattered osseous degenerative changes without acute osseous abnormality. IMPRESSION: Previously noted bilateral renal calculi are no longer visualized. Inferior vena cava filter is again identified and stable. Prominent tortuous vessels within the periaortic region, right anterior abdominal wall, and left retroperitoneum are stable from prior examinations, including dating back to 2017. Colonic diverticulosis without CT evidence of diverticulitis. Cholecystectomy. Additional findings as described above. Dictated on workstation # [id number] Dict: 12/05/19 1329 Trans: 12/05/19 1339 [facility] [id number] Interpreted by: LEOBARDO SAINI MD Electronically signed by: Reviewed: Reviewed by Me Departure Impression Primary Impression: Lumbago Qualified Codes: M54.5 - Low back pain Disposition: 01 HOME, SELF-CARE Condition: Stable Departure-Patient Inst. Decision time for Depature: 14:14 Referrals: LEAH WOLF MD (PCP/Family) Primary Care Physician Patient Instructions: Lumbar Muscle Strain (DC), Back Stretches on Floor Add. Discharge Instructions: Cyclobenzaprine one half to one tablet every 8 hours as necessary for muscle relaxation in your back. May cause some drowsiness so do not mix with your pain pills. 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 Topical Lidoderm patches can be helpful. Follow-up with primary care to get into physical therapy. All discharge instructions reviewed with patient and/or family. Voiced understanding. Scripts Cyclobenzaprine HCl (Cyclobenzaprine HCl) 5 Mg Tablet 5 MG PO Q8H PRN for MUSCLE SPASMS, #15 TAB 0 Refills Prov: JULIO C MERINO 12/05/19 JULIO C MERINO Dec 05, 2019 10:35
[2019-12-05 10:41] LABS: BILIRUBIN,URINE NEGATIVE (NEGATIVE); CLARITY,URINE CLEAR; COLOR,URINE YELLOW; GLUCOSE, URINE (UA) NEGATIVE (NEGATIVE); KETONES,URINE TRACE (NEGATIVE); LEUKOCYTE ESTERASE ,URINE 1+ (NEGATIVE); NITRITE,URINE NEGATIVE (NEGATIVE); PROTEIN,URINE NEGATIVE (NEGATIVE)
[2019-12-05 10:49] LABS: BACTERIA,URINE FEW /HPF; CALCIUM OXALATE CRYSTALS,UR FEW /LPF; WBC,URINE 0-2 /HPF
[2019-12-05 10:56] LABS: BASOPHILS % (AUTO) 0 % (0-10); EOSINOPHILS # (AUTO) 0.1 10^3/uL (0.0-0.3); EOSINOPHILS % (AUTO) 1 % (0-10); HEMATOCRIT 40 % (35-52); HEMOGLOBIN 12.6 G/DL (11.5-16.0); LYMPHOCYTES # (AUTO) 2.6 X 10^3 (1.0-4.0); LYMPHOCYTES % (AUTO) 28 % (12-44); MEAN CORPUSCULAR HEMOGLOBIN 28 PG (25-34); MEAN CORPUSCULAR HGB CONC 32 G/DL (32-36); MEAN CORPUSCULAR VOLUME 89 FL (80-99); MEAN PLATELET VOLUME 8.6 FL (7.4-10.4); MONOCYTES # (AUTO) 0.9 X 10^3 (0.0-1.0); MONOCYTES % (AUTO) 10 % (0-12); NEUTROPHILS # (AUTO) 5.4 X 10^3 (1.8-7.8); NEUTROPHILS % (AUTO) 60 % (42-75); PLATELET COUNT 281 10^3/uL (130-400); RED CELL DISTRIBUTION WIDTH 15.9 % (10.0-14.5); WHITE BLOOD COUNT 9.1 10^3/uL (4.3-11.0)
[2019-12-05 11:16] LABS: ALBUMIN 3.7 GM/DL (3.2-4.5); CHLORIDE 103 MMOL/L (98-107); POTASSIUM 3.6 MMOL/L (3.6-5.0); SODIUM 140 MMOL/L (135-145)
[2019-12-05 11:18] LABS: GLUCOSE 99 MG/DL (70-105)
[2019-12-05 11:19] LABS: CARBON DIOXIDE 26 MMOL/L (21-32)
[2019-12-05 11:20] LABS: BILIRUBIN,TOTAL 0.3 MG/DL (0.1-1.0)
[2019-12-05 11:22] LABS: ALKALINE PHOSPHATASE 69 U/L (40-136); CREATININE SERUM 0.71 MG/DL (0.60-1.30); GFR ESTIMATED > 60
[2019-12-05 11:23] LABS: BUN/CREATININE RATIO 23
[2019-12-05 11:25] LABS: ALANINE AMINOTRANSFERASE 19 U/L (0-55)
--- NOTE | 2019-12-05 13:39 | Diagnostic Imaging Report ---
PROCEDURE: CT urinary tract, rule out kidney stone. TECHNIQUE: Multiple contiguous axial images were obtained through the abdomen and pelvis without the use of intravenous contrast. Auto Exposure Controls were utilized during the CT exam to meet ALARA standards for radiation dose reduction. INDICATION: Abdominal pain, diverticulosis COMPARISON: 03/29/2017 FINDINGS: The visualized lung bases are clear. Cholecystectomy. The unenhanced liver and spleen are unremarkable. The adrenal glands are unremarkable. The pancreas is unremarkable. The right kidney and ureter are unremarkable. The left kidney and ureter are unremarkable. Inferior vena cava filter is again noted. Prominent periaortic vasculature is again seen, appearing similar to the prior examination. Soft tissue nodular density lateral to the inferior vena cava is also again identified and stable from the prior examination. This is felt to relate to scar material. Scattered vascular calcifications without aneurysmal dilatation of the abdominal aorta. The urinary bladder is predominantly decompressed, but otherwise unremarkable. The uterus is not visualized, likely surgically absent. Mild to moderate colonic diverticulosis without CT evidence of acute diverticulitis. The appendix is unremarkable. No bowel obstruction or pneumatosis. Prominent tortuous vessels are noted within the right abdominal wall and left retroperitoneum, similar to the prior exam. No significant adenopathy, free air, or free fluid within the abdomen or pelvis. Scattered osseous degenerative changes without acute osseous abnormality. IMPRESSION: Previously noted bilateral renal calculi are no longer visualized. Inferior vena cava filter is again identified and stable. Prominent tortuous vessels within the periaortic region, right anterior abdominal wall, and left retroperitoneum are stable from prior examinations, including dating back to 2017. Colonic diverticulosis without CT evidence of diverticulitis. Cholecystectomy. Additional findings as described above. Dictated by: Dictated on workstation # [id number]
[2019-12-05] MEDS ORDERED: CYCL5TAB PO ×2 (14:16→14:29)
[2019-12-05 14:23] VITALS: BP 124/84
== END 2019-12-05 14:24 | disposition home or self-care (01) ==
LOC: EDUNIT# 10:08 → ER 10:09
DX: M54.5 Low back pain (principal); I10 Essential (primary) hypertension; J44.9 Chronic obstructive pulmonary disease, unspecified; Z88.6 Allergy status to analgesic agent; Z88.7 Allergy status to serum and vaccine; Z88.8 Allergy status to other drugs, medicaments and biological substances; Z91.040 Latex allergy status; Z91.041 Radiographic dye allergy status; Z86.718 Personal history of other venous thrombosis and embolism; Z86.711 Personal history of pulmonary embolism; Z87.891 Personal history of nicotine dependence; Z82.49 Family history of ischemic heart disease and other diseases of the circulatory system; Z80.0 Family history of malignant neoplasm of digestive organs; Z80.8 Family history of malignant neoplasm of other organs or systems; Z79.52 Long term (current) use of systemic steroids; Z79.01 Long term (current) use of anticoagulants
CPT/HCPCS: 36415; 74176; 80053; 81000; 85025; 86141

== ENCOUNTER 2019-12-30 08:50 | Emergency (ER) | payer MEDICAID ==
[~2019-12-30 08:50] MED LIST changes: +CYCL5TAB PO
[2019-12-30] MEDS ORDERED: ENOXAPARIN 100 MG/1 ML (LOVENOX) SYR ONE (10:51)
[2019-12-31 15:37] LABS: HEMOGLOBIN 12.7 G/DL (11.5-16.0); INR 1.7 (0.8-1.4); MEAN CORPUSCULAR HEMOGLOBIN 28 PG (25-34); PROTHROMBIN TIME PATIENT 20.5 SEC (12.2-14.7); WHITE BLOOD COUNT 15.1 10^3/uL (4.3-11.0)
[2019-12-31 15:38] LABS: BASOPHILS % (AUTO) 0 % (0-10); EOSINOPHILS # (AUTO) 0.1 10^3/uL (0.0-0.3); EOSINOPHILS % (AUTO) 1 % (0-10); HEMATOCRIT 40 % (35-52); LYMPHOCYTES # (AUTO) 2.1 X 10^3 (1.0-4.0); LYMPHOCYTES % (AUTO) 14 % (12-44); MEAN CORPUSCULAR HGB CONC 32 G/DL (32-36); MEAN CORPUSCULAR VOLUME 88 FL (80-99); MEAN PLATELET VOLUME 8.8 FL (7.4-10.4); MONOCYTES # (AUTO) 0.9 X 10^3 (0.0-1.0); MONOCYTES % (AUTO) 6 % (0-12); NEUTROPHILS # (AUTO) 11.9 X 10^3 (1.8-7.8); NEUTROPHILS % (AUTO) 79 % (42-75); PLATELET COUNT 285 10^3/uL (130-400); RED CELL DISTRIBUTION WIDTH 15.3 % (10.0-14.5)
[2019-12-31 15:39] LABS: SODIUM 139 MMOL/L (135-145)
[2019-12-31 15:40] LABS: ALANINE AMINOTRANSFERASE 21 U/L (0-55); ALBUMIN 3.7 GM/DL (3.2-4.5); ALKALINE PHOSPHATASE 70 U/L (40-136); BILIRUBIN,TOTAL 0.4 MG/DL (0.1-1.0); BUN/CREATININE RATIO 21; CALCIUM 8.5 MG/DL (8.5-10.1); CARBON DIOXIDE 26 MMOL/L (21-32); CHLORIDE 103 MMOL/L (98-107); CREATININE SERUM 0.63 MG/DL (0.60-1.30); GFR ESTIMATED > 60; GLUCOSE 113 MG/DL (70-105); POTASSIUM 3.4 MMOL/L (3.6-5.0); TOTAL PROTEIN 7.4 GM/DL (6.4-8.2)
--- NOTE | 2020-01-01 08:22 | Diagnostic Imaging Report ---
EXAMINATION: Left lower extremity venous Doppler. INDICATION: Left leg swelling. TECHNIQUE: Grayscale, color-flow, and duplex Doppler evaluation of the left lower extremity deep venous system was performed. FINDINGS: There is partially occlusive DVT throughout the left common femoral, superficial femoral, and popliteal veins. There appears to be occlusive thrombus within the peroneal veins of the calf. No fluid collection or mass is detected. IMPRESSION: Left lower extremity DVT, as described. Dictated by: Dictated on workstation # [id number]
== END 2019-12-30 11:00 | disposition home or self-care (01) ==
LOC: ER 08:50 → EDUNIT# 08:50 → ER 11:00
DX: I82.402 Acute embolism and thrombosis of unspecified deep veins of left lower extremity (principal); I83.028 Varicose veins of left lower extremity with ulcer other part of lower leg; L97.829 Non-pressure chronic ulcer of other part of left lower leg with unspecified severity; Z79.01 Long term (current) use of anticoagulants
CPT/HCPCS: 36415; 80053; 85025; 85610; 85730; 86141; 96372

== ENCOUNTER 2020-03-31 16:29 | Emergency (ER) | payer MEDICAID ==
[~2020-03-31] VITALS: Ht 164 cm; Wt 99.0 kg
[~2020-03-31 16:29] MED LIST changes: -PANT40TA3 PO; +PANT40TA52 PO; +WARF4TAB3 PO; -WARF4TAB70 PO
[2020-03-31] MEDS ORDERED: meTOprolol 5 MG/5 ML (LOPRESSOR) VIAL IV ONE (17:15)
--- NOTE | 2020-03-31 17:16 | ED Cardiac General ---
History of Present Illness General Chief Complaint: Cardiac/General Problems Stated Complaint: BLOOD SUGAR PROBLEM;IRREGULAR PULSE Source: patient Exam Limitations: no limitations History of Present Illness Date Seen by Provider: Mar 31, 2020 Time Seen by Provider: 17:14 Initial Comments To Er with c/o tachycardia and "feeling funny" off and on for 3 days. has COPD, wears O2 at night. No fevers or chills. She checked her HR yesterday and found it to be around 120 and this number scared her. Otherwise, no chest pain or increased SOB. Timing/Duration: changing over time, intermittent Severity: moderate NTG SL RESPIRATORY CARE PROGRAM DIRECTOR: No ASA po RESPIRATORY CARE PROGRAM DIRECTOR: No Associated Systoms: Denies Symptoms Allergies and Home Medications Allergies Coded Allergies: aspirin (Verified Allergy, Severe, ANAPHYLAXIS, 03/03/19) ibuprofen (Verified Allergy, Severe, ANAPHYLAXIS, 03/03/19) ketorolac (Verified Allergy, Severe, ANAPHYLAXIS, 03/03/19) tetanus and diphtheria toxoids (Unverified Allergy, Severe, ANAPHYLAXIS, 03/03/19) aloe (Verified Allergy, Mild, RASH, 03/03/19) latex (Verified Allergy, Mild, RASH, 03/03/19) OCCASIONALLY IS IRRITATING SKIN scopolamine (Verified Allergy, Mild, 03/03/19) iodine (Verified Adverse Reaction, Unknown, 03/03/19) Patient states she got dizzy, diaphoretic and saw stars. Uncoded Allergies: ALOE VERA (Allergy, Unknown, 12/23/05) SILK SUTURES (Adverse Reaction, Unknown, BODY REJECTS SUTURES, 10/07/13) Home Medications Albuterol Sulfate 8.5 Gm Hfa.aer.ad, 2 PUFF IH Q4H PRN for SHORTNESS OF BREATH, (Reported) Albuterol Sulfate 2.5 Mg/3 Ml Vial.neb, 2.5 MG NEB Q2H PRN for SHORTNESS OF BREATH, (Reported) Alprazolam 1 Mg Tablet, 1 MG PO BID PRN for ANXIETY, (Reported) Calcium Carbonate/Vitamin D3 1 Each Tablet, 1 TAB PO BID, (Reported) Cyclobenzaprine HCl 5 Mg Tablet, 5 MG PO Q8H PRN for MUSCLE SPASMS Prescribed by: JULIO C MERINO on 12/05/19 0717 Epinephrine 0.3 Mg/0.3 Ml Auto.injct, 0.3 MG IJ PRN, (Reported) Fluticasone Propionate 1 Ea Aero, 2 PUFF INH BID, (Reported) Furosemide 40 Mg Tablet, 40 MG PO DAILY, (Reported) Hydrocodone/Acetaminophen 1 Each Tablet, 1 TAB PO Q6- 8H PRN for PAIN-MODERATE (5-7), (Reported) Hyoscyamine Sulfate 0.125 Mg Tab.rapdis, 0.125 MG SL Q6H PRN for ABDOMINAL PAIN, (Reported) Ipratropium [place] 0.2 Mg/1 Ml Solution, 1 VIAL NEB TID, (Reported) MIXES WITH ALBUTEROL SOLUTION Loratadine 10 Mg Tablet, 10 MG PO DAILY, (Reported) Metoprolol Succinate 25 Mg Tab.er.24h, 25 MG PO DAILY Prescribed by: KAMRAN LINDQUIST on 03/31/201747 Montelukast Sodium 10 Mg Tablet, 10 MG PO HS, (Reported) Oxycodone HCl/Acetaminophen 1 Each Tablet, 1-2 TAB PO Q4H PRN for PAIN-MODERATE (5-7) Prescribed by: ALVA LAMAR on 12/03/192010 Pantoprazole Sodium 40 Mg Tablet.dr, 40 MG PO DAILY, (Reported) Potassium Chloride 10 Meq Tablet.er, 20 MEQ PO BID, (Reported) TAKES 2 (10MEQ) TABLETS Prednisone 20 Mg Tab, 20 MG PO UD, (Reported) ON TAPER DOSE 3 TABS X 3 DAYS, THEN 2 TABS X 3 DAYS, THEN 1 T X 3 DAYS= PT IS JUST STARTING THEN 1 TAB X 3 DAYS Promethazine HCl 25 Mg Tablet, 25 MG PO Q6H PRN for NAUSEA/VOMITING-2ND LINE, (Reported) Warfarin Sodium 4 Mg Tablet, 4 MG PO MO,,,FR,SA@1800, (Reported) Warfarin Sodium 5 Mg Tablet, 5 MG PO SAT,SAT @1800, (Reported) Patient Home Medication List Home Medication List Reviewed: Yes Review of Systems Review of Systems Constitutional: see HPI EENTM: No Symptoms Reported Respiratory: No Symptoms Reported Cardiovascular: See HPI; Denies Chest Pain; Palpitations Gastrointestinal: No Symptoms Reported 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: No Symptoms Reported Musculoskeletal: no symptoms reported Skin: no symptoms reported Psychiatric/Neurological: No Symptoms Reported Endocrine: No Symptoms Reported Hematologic/Lymphatic: No Symptoms Reported Past Fwbmgoh-Tclqrd-Uaszus Hx Patient Social History Drug of Choice: + IV COCAINE USE Type Used: Cigarettes Former Smoker, Quit: Nov 17, 2000 2nd Hand Smoke Exposure: No Recent Foreign Travel: No Contact w/Someone Who Travel: No Recent Hopitalizations: Yes (05/21/19 knee sx) Immunizations Up To Date Tetanus Booster (TDap): Unknown PED Vaccines UTD: No Date of Pneumonia Vaccine: Sep 05, 2016 Date of Influenza Vaccine: Mar 11, 2012 Seasonal Allergies Seasonal Allergies: Yes Past Medical History Surgeries: Yes (C/S X2, KNEE SCOPE, SHOULDER SCOPE, d&C, BILAT ULNAR NERVE, VENA CAVA FILTE) Abdominal, Adenoidectomy, Section, Gallbladder, Hysterectomy, Or thopedic, Tonsillectomy, Tubal Ligation, Vascular Surgery Respiratory: Yes (O2 AT HS 2-3L/NC AND PRN--NOCTURNAL HYPOXIA; ) Asthma, Pneumonia, Chronic Bronchitis, Pulmonary Embolism, COPD Currently Using CPAP: No Currently Using BIPAP: No Cardiac: Yes Chronic Edema/Swelling, Deep Vein Thrombosis, High Cholesterol, Hypertension, Peripheral Vascular Neurological: Yes Neuropathy 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 Disorders: No 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, 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 Sexually Transmitted Disease: No HIV/AIDS: No 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: Yes Kidney Infection, Bladder Infection, Kidney Stones Gastrointestinal: Yes (MULTIPLE HERNIA REPAIRS; MULTIPLE EGD'S /COLONOSCOPIES/POLYPECTOMIES) Abdominal Hernia, Gastroesophageal Reflux, Chronic Constipation, Chronic Diarrhea, Hepatitis, Polyps, Hiatal Hernia, Irritable Bowel Musculoskeletal: Yes Arthritis Endocrine: Yes ("PRE-DIABETIC" ) HEENT: Yes (NASAL POLYPS REMOVED) Cataract Loss of Vision: Denies Hearing Impairment: Denies Cancer: No Did You Recieve Any Treatments: No Psychosocial: Yes Anxiety Integumentary: Yes (CHRONIC VENOUS STASIS DERMATITIS AND ULCERS. ) Recent Skin Changes Blood Disorders: Yes (DVT'S/PE'S; PROBABLE PROTEIN C DEFICIENCY) Adverse Reaction/Blood Tranf: No (HAS HAD BLOOD WITH NO PROBLEMS) Family Medical History Alcoholism Alcoholism Arthritis Asthma 19 MOTHER Cancer G8 BROTHER G8 SISTER Cancer of colon Cancer of mouth Cardiovascular disease Cataract Cataracts Chest pain Colon cancer Completed stroke Diabetes mellitus Family history: Allergy Family history: Arthritis Family history: Asthma Family history: Cardiovascular disease Family history: Coronary thrombosis Family history: Diabetes mellitus G8 BROTHER G8 SISTER Family history: Gastrointestinal disease Family history: Hypertension Family history: Thyroid disorder Headache Hearing loss Heart disease 19 MOTHER History of - anemia History of - respiratory disease Hypercholesterolemia Hypercholesterolemia Hypertension 19 FATHER Infertile Malignant neoplasm of lung Myocardial infarction Myocardial infarction Psychotic disorder Respiratory disorder Stroke No Family History of: AIDS Abdominal aortic aneurysm Abdominal aortic aneurysm Fernando's disease [place]'s disease Alzheimer's disease Aphasia Aphasia Congenital disease Congenital heart disease Congenital heart disease Congestive heart failure Coronary thrombosis Cystic fibrosis Cystic fibrosis Deafness or hearing loss Dementia Dementia Drug abuse Dysphagia Dysphasia Family history: Alzheimer's disease Family history: Breast disease Family history: Glaucoma Family history: Osteoporosis Fibrocystic disease of breast Gastroenteritis Glaucoma Headache disorder Hereditary disease History of - disorder History of drug abuse Human immunodeficiency virus (HIV) seropositivity Infertility Kidney disease Kidney disease Neoplasm Not obtainable due to adoption Osteoporosis Parkinson's disease Parkinson's disease Prostate cancer Psychosocial problem Seizure disorder Seizure disorder Severe allergy Thyroid disease Tuberculosis Tuberculosis Visual disorder Visual impairment Cancer, COPD, Vascular Disease Physical Exam Vital Signs Vital Signs - First Documented 03/31/20 17:11 Temp 36.4 Pulse 108 Resp 20 B/P (MAP) 141/94 (110) Pulse Ox 95 O2 Delivery Room Air Capillary Refill : Height, Weight, BMI Height: 5'5.00" Weight: 184lbs. 5.0oz. 83.108139js; 36.00 BMI Method:Stated General Appearance: No Apparent Distress, WD/WN Neck: Full Range of Motion, Normal Inspection Respiratory: Normal Breath Sounds, No Accessory Muscle Use, No Respiratory Distress Cardiovascular: Normal Peripheral Pulses, Tachycardia (sinus rate 122) Gastrointestinal: Normal Bowel Sounds, Non Tender, Soft Neurologic/Psychiatric: Alert, Oriented x3 Skin: Normal Color, Warm/Dry Progress/Results/Core Measures Results/Orders Lab Results Laboratory Tests Test 03/31/20 17:00 03/31/20 17:04 03/31/20 17:06 Range/Units White Blood Count 10.6 4.3-11.0 10^3/uL Red Blood Count 4.74 3.80-5.11 10^6/uL Hemoglobin 13.2 11.5-16.0 g/dL Hematocrit 43 35-52 % Mean Corpuscular Volume 91 80-99 fL Mean Corpuscular Hemoglobin 28 25-34 pg Mean Corpuscular Hemoglobin Concent 31 L 32-36 g/dL Red Cell Distribution Width 15.7 H 10.0-14.5 % Platelet Count 280 130-400 10^3/uL Mean Platelet Volume 8.9 L 9.0-12.2 fL Immature Granulocyte % (Auto) 0 % Neutrophils (%) (Auto) 67 42-75 % Lymphocytes (%) (Auto) 25 12-44 % Monocytes (%) (Auto) 5 0-12 % Eosinophils (%) (Auto) 1 0-10 % Basophils (%) (Auto) 0 0-10 % Neutrophils # (Auto) 7.2 1.8-7.8 10^3/uL Lymphocytes # (Auto) 2.7 1.0-4.0 10^3/uL Monocytes # (Auto) 0.6 0.0-1.0 10^3/uL Eosinophils # (Auto) 0.2 0.0-0.3 10^3/uL Basophils # (Auto) 0.0 0.0-0.1 10^3/uL Immature Granulocyte # (Auto) 0.0 0.0-0.1 10^3/uL Sodium Level 140 135-145 MMOL/L Potassium Level 3.9 3.6-5.0 MMOL/L Chloride Level 106 98-107 MMOL/L Carbon Dioxide Level 22 21-32 MMOL/L Anion Gap 12 5-14 MMOL/L Glucose Level 77 70-105 MG/DL Calcium Level 8.7 8.5-10.1 MG/DL Corrected Calcium 8.6 8.5-10.1 MG/DL Total Bilirubin 0.3 0.1-1.0 MG/DL Total Protein 7.6 6.4-8.2 GM/DL Albumin 4.1 3.2-4.5 GM/DL Coronavirus 2019 (AVNI) Negative Negative Glucometer 80 70-110 MG/DL My Orders Orders - KAMRAN LINDQUIST UNDERWRITING INTERN Cbc With Automated Diff (03/31/20 17:11) Hs C Reactive Protein (03/31/20 17:11) Fibrin Degradation Products (03/31/20 17:11) Comprehensive Metabolic Panel (03/31/20 17:11) Ed Iv/Invasive Line Start (03/31/20 17:11) Ekg Tracing (03/31/20 17:11) Metoprolol Tartrate Injection (Lopressor (03/31/20 17:15) Protime With Inr (03/31/20 17:13) Chest 1 View, Ap/Pa Only (03/31/20 17:14) Covid 19 Inhouse Test (03/31/20 17:16) Medications Given in ED Current Medications Medications Dose Ordered Sig/Nahomi Route Start Time Stop Time Status Last Admin Dose Admin Metoprolol Tartrate 5 mg ONCE ONCE IV 03/31/20 17:15 03/31/20 17:16 DC 03/31/20 17:22 5 MG Vital Signs/I&O 03/31/20 17:11 Temp 36.4 Pulse 108 Resp 20 B/P (MAP) 141/94 (110) Pulse Ox 95 O2 Delivery Room Air Diagnostic Imaging Diagonstic Imaging: Xray Plain Films/CT/US/NM/MRI: chest Comments NAME: SUJEY FELIZ [facility] REC#: [id number] PT STATUS: REG ER : 1960 PHYSICIAN: KAMRAN LINDQUIST APRN ADMIT DATE: 03/31/20/ER Draft Date of Exam:03/31/20 CHEST 1 VIEW, AP/PA ONLY INDICATION: Tachycardia. TECHNIQUE: Single view chest 5:31 p.m. CORRELATION STUDY: 11/19/2019. FINDINGS: Heart size and mediastinum appear generally stable. Lungs are hyperinflated. There is increased opacities at the lung bases. Correlation with prior studies appears to represent asymmetric anterior portion of the diaphragm. A definitive pulmonary infiltrate is not present. IMPRESSION: Findings suggesting COPD. No acute cardiopulmonary abnormality. Dictated on workstation # [id number] Dict: 03/31/20 174 Trans: 03/31/201745 [facility] [id number] Interpreted by: SWATHI DONNELLY DO Electronically signed by: Departure Impression Primary Impression: Palpitations Disposition: 01 HOME, SELF-CARE Condition: Stable Departure-Patient Inst. Decision time for Depature: 17:47 Referrals: LEAH WOLF MD (PCP/Family) Primary Care Physician Patient Instructions: Palpitations Scripts Metoprolol Succinate (Toprol Xl) 25 Mg Tab.er.24h 25 MG PO DAILY, #14 TAB Prov: KAMRAN LINDQUIST APRN 03/31/20 Copy Copies To 1: LEAH WOLF MD, PETER J APRN Mar 31, 2020 17:16
[2020-03-31 17:36] LABS: BASOPHILS % (AUTO) 0 % (0-10); EOSINOPHILS # (AUTO) 0.2 10^3/uL (0.0-0.3); EOSINOPHILS % (AUTO) 1 % (0-10); HEMATOCRIT 43 % (35-52); HEMOGLOBIN 13.2 g/dL (11.5-16.0); LYMPHOCYTES # (AUTO) 2.7 10^3/uL (1.0-4.0); LYMPHOCYTES % (AUTO) 25 % (12-44); MEAN CORPUSCULAR HEMOGLOBIN 28 pg (25-34); MEAN CORPUSCULAR HGB CONC 31 g/dL (32-36); MEAN CORPUSCULAR VOLUME 91 fL (80-99); MEAN PLATELET VOLUME 8.9 fL (9.0-12.2); MONOCYTES # (AUTO) 0.6 10^3/uL (0.0-1.0); MONOCYTES % (AUTO) 5 % (0-12); NEUTROPHILS # (AUTO) 7.2 10^3/uL (1.8-7.8); NEUTROPHILS % (AUTO) 67 % (42-75); PLATELET COUNT 280 10^3/uL (130-400); WHITE BLOOD COUNT 10.6 10^3/uL (4.3-11.0)
[2020-03-31 17:47] LABS: ALBUMIN 4.1 GM/DL (3.2-4.5); CHLORIDE 106 MMOL/L (98-107); POTASSIUM 3.9 MMOL/L (3.6-5.0); SODIUM 140 MMOL/L (135-145)
--- NOTE | 2020-03-31 17:47 | Diagnostic Imaging Report ---
INDICATION: Tachycardia. TECHNIQUE: Single view chest 5:31 p.m. CORRELATION STUDY: 11/19/2019. FINDINGS: Heart size and mediastinum appear generally stable. Lungs are hyperinflated. There is increased opacities at the lung bases. Correlation with prior studies appears to represent asymmetric anterior portion of the diaphragm. A definitive pulmonary infiltrate is not present. IMPRESSION: Findings suggesting COPD. No acute cardiopulmonary abnormality. Dictated by: Dictated on workstation # [id number]
[2020-03-31 17:48] LABS: CALCIUM 8.7 MG/DL (8.5-10.1)
[2020-03-31] MEDS ORDERED: METO-351 PO (17:48)
[2020-03-31 17:49] LABS: GLUCOSE 77 MG/DL (70-105)
[2020-03-31 17:50] LABS: TOTAL PROTEIN 7.6 GM/DL (6.4-8.2)
[2020-03-31 17:51] LABS: BILIRUBIN,TOTAL 0.3 MG/DL (0.1-1.0); CARBON DIOXIDE 22 MMOL/L (21-32)
[2020-03-31 17:53] LABS: ALKALINE PHOSPHATASE 92 U/L (40-136); CREATININE SERUM 0.69 MG/DL (0.60-1.30); GFR ESTIMATED > 60
[2020-03-31 17:54] LABS: BUN/CREATININE RATIO 12
[2020-03-31 17:56] LABS: ALANINE AMINOTRANSFERASE 19 U/L (0-55); FIBRIN DEGRADATION PRODUCTS < 0.27 UG/ML (0.00-0.49); INR 1.8 (0.8-1.4); PROTHROMBIN TIME PATIENT 21.6 SEC (12.2-14.7)
[2020-03-31 18:06] VITALS: BP 138/88
== END 2020-03-31 18:06 | disposition home or self-care (01) ==
LOC: EDUNIT# 16:29 → ER 16:30
DX: R00.2 Palpitations (principal); J44.9 Chronic obstructive pulmonary disease, unspecified; K21.9 Gastro-esophageal reflux disease without esophagitis; F41.9 Anxiety disorder, unspecified; I10 Essential (primary) hypertension; Z20.828 Contact with and (suspected) exposure to other viral communicable diseases; Z82.61 Family history of arthritis; Z83.3 Family history of diabetes mellitus; Z82.49 Family history of ischemic heart disease and other diseases of the circulatory system; Z80.0 Family history of malignant neoplasm of digestive organs; Z80.8 Family history of malignant neoplasm of other organs or systems; Z80.1 Family history of malignant neoplasm of trachea, bronchus and lung; Z87.891 Personal history of nicotine dependence; Z86.711 Personal history of pulmonary embolism; Z86.718 Personal history of other venous thrombosis and embolism; Z91.040 Latex allergy status; Z91.041 Radiographic dye allergy status; Z88.7 Allergy status to serum and vaccine; Z88.1 Allergy status to other antibiotic agents; Z88.6 Allergy status to analgesic agent; Z88.8 Allergy status to other drugs, medicaments and biological substances; Z79.52 Long term (current) use of systemic steroids; Z79.01 Long term (current) use of anticoagulants
CPT/HCPCS: 36415; 71045; 80053; 82962; 85025; 85379; 85610; 86141; 87635; 93005; 96374

== ENCOUNTER → 2020-04-19 | Outpatient (CLI) | payer MEDICAID ==
[~2020-04-19] MED LIST changes: +METO-351 PO; -MONT10TA26 PO; +MONT10TA97 PO
[2020-04-19 07:58] LABS: BASOPHILS % (AUTO) 1 % (0-10); EOSINOPHILS # (AUTO) 0.3 10^3/uL (0.0-0.3); EOSINOPHILS % (AUTO) 4 % (0-10); HEMATOCRIT 41 % (35-52); HEMOGLOBIN 12.8 g/dL (11.5-16.0); LYMPHOCYTES # (AUTO) 3.1 10^3/uL (1.0-4.0); LYMPHOCYTES % (AUTO) 40 % (12-44); MEAN CORPUSCULAR HEMOGLOBIN 28 pg (25-34); MEAN CORPUSCULAR HGB CONC 31 g/dL (32-36); MEAN CORPUSCULAR VOLUME 89 fL (80-99); MEAN PLATELET VOLUME 8.6 fL (9.0-12.2); MONOCYTES # (AUTO) 0.7 10^3/uL (0.0-1.0); MONOCYTES % (AUTO) 9 % (0-12); NEUTROPHILS # (AUTO) 3.6 10^3/uL (1.8-7.8); NEUTROPHILS % (AUTO) 46 % (42-75); PLATELET COUNT 274 10^3/uL (130-400); WHITE BLOOD COUNT 7.8 10^3/uL (4.3-11.0)
[2020-04-19 08:31] LABS: ALANINE AMINOTRANSFERASE 18 U/L (0-55); ALBUMIN 3.7 GM/DL (3.2-4.5); ALKALINE PHOSPHATASE 66 U/L (40-136); BILIRUBIN,TOTAL 0.3 MG/DL (0.1-1.0); BUN/CREATININE RATIO 16; CALCIUM 8.8 MG/DL (8.5-10.1); CARBON DIOXIDE 24 MMOL/L (21-32); CHLORIDE 105 MMOL/L (98-107); CHOLESTEROL 205 MG/DL (< 200); CREATININE SERUM 0.69 MG/DL (0.60-1.30); GFR ESTIMATED > 60; GLUCOSE 100 MG/DL (70-105); HDL CHOLESTEROL 65 MG/DL (40-60); POTASSIUM 3.8 MMOL/L (3.6-5.0); SODIUM 141 MMOL/L (135-145); TOTAL PROTEIN 6.9 GM/DL (6.4-8.2); TRIGLYCERIDES 140 MG/DL (<150); VLDL CHOLESTEROL 28 MG/DL (5-40)
== END ==
LOC: CARD 07:34
PROVIDERS: ATTEND Nurse Practitioner Family
DX: I49.9 Cardiac arrhythmia, unspecified (principal); E78.2 Mixed hyperlipidemia
CPT/HCPCS: 36415; 80053; 80061; 84443; 85025; 93225; 93226

== ENCOUNTER 2020-06-30 11:37 | Emergency (ER) | payer MEDICAID ==
[~2020-06-30] VITALS: Ht 165.1 cm; Wt 98.6 kg
[~2020-06-30 11:37] MED LIST changes: +MONT10TA32 PO; -MONT10TA97 PO
--- NOTE | 2020-06-30 11:51 | ED EENT ---
History of Present Illness General Stated Complaint: FELL AT HOME, MOUTH/NOSE NUMBNESS Source: patient Exam Limitations: no limitations History of Present Illness Date Seen by Provider: Jun 30, 2020 Time Seen by Provider: 11:48 Initial Comments To ER with reports of a fall at home after her knee gave out she landed face first on the carpet. She struck her nose which was bleeding initially but has subsequently stopped. She now has numbness of the nose and numbness of the top lip. She did not knock any teeth out but she feels one of her upper teeth is loose. Timing/Duration: abrupt Severity: moderate Location: nose, facial Prearrival Treatment: no prearrival treatment Associated Symptoms: denies symptoms Allergies and Home Medications Allergies Coded Allergies: aspirin (Verified Allergy, Severe, ANAPHYLAXIS, 03/03/19) ibuprofen (Verified Allergy, Severe, ANAPHYLAXIS, 03/03/19) ketorolac (Verified Allergy, Severe, ANAPHYLAXIS, 03/03/19) tetanus and diphtheria toxoids (Unverified Allergy, Severe, ANAPHYLAXIS, 03/03/19) aloe (Verified Allergy, Mild, RASH, 03/03/19) latex (Verified Allergy, Mild, RASH, 03/03/19) OCCASIONALLY IS IRRITATING SKIN scopolamine (Verified Allergy, Mild, 03/03/19) iodine (Verified Adverse Reaction, Unknown, 03/03/19) Patient states she got dizzy, diaphoretic and saw stars. Uncoded Allergies: ALOE VERA (Allergy, Unknown, 12/23/05) SILK SUTURES (Adverse Reaction, Unknown, BODY REJECTS SUTURES, 10/07/13) Home Medications Albuterol Sulfate 8.5 Gm Hfa.aer.ad, 2 PUFF IH Q4H PRN for SHORTNESS OF BREATH, (Reported) Albuterol Sulfate 2.5 Mg/3 Ml Vial.neb, 2.5 MG NEB Q2H PRN for SHORTNESS OF BREATH, (Reported) Alprazolam 1 Mg Tablet, 1 MG PO BID PRN for ANXIETY, (Reported) Calcium Carbonate/Vitamin D3 1 Each Tablet, 1 TAB PO BID, (Reported) Cyclobenzaprine HCl 5 Mg Tablet, 5 MG PO Q8H PRN for MUSCLE SPASMS Prescribed by: JULIO C MERINO on 12/05/19 1429 Epinephrine 0.3 Mg/0.3 Ml Auto.injct, 0.3 MG IJ PRN, (Reported) Fluticasone Propionate 1 Ea Aero, 2 PUFF INH BID, (Reported) Furosemide 40 Mg Tablet, 40 MG PO DAILY, (Reported) Hydrocodone/Acetaminophen 1 Each Tablet, 1 TAB PO Q6- 8H PRN for PAIN-MODERATE (5-7), (Reported) Hyoscyamine Sulfate 0.125 Mg Tab.rapdis, 0.125 MG SL Q6H PRN for ABDOMINAL PAIN, (Reported) Ipratropium [place] 0.2 Mg/1 Ml Solution, 1 VIAL NEB TID, (Reported) MIXES WITH ALBUTEROL SOLUTION Loratadine 10 Mg Tablet, 10 MG PO DAILY, (Reported) Metoprolol Succinate 25 Mg Tab.er.24h, 25 MG PO DAILY Prescribed by: KAMRAN LINDQUIST on 03/31/201747 Montelukast Sodium 10 Mg Tablet, 10 MG PO HS, (Reported) Oxycodone HCl/Acetaminophen 1 Each Tablet, 1-2 TAB PO Q4H PRN for PAIN-MODERATE (5-7) Prescribed by: ALVA LAMAR on 12/03/192010 Pantoprazole Sodium 40 Mg Tablet.dr, 40 MG PO DAILY, (Reported) Potassium Chloride 10 Meq Tablet.er, 20 MEQ PO BID, (Reported) TAKES 2 (10MEQ) TABLETS Prednisone 20 Mg Tab, 20 MG PO UD, (Reported) ON TAPER DOSE 3 TABS X 3 DAYS, THEN 2 TABS X 3 DAYS, THEN 1 T X 3 DAYS= PT IS JUST STARTING THEN 1 TAB X 3 DAYS Promethazine HCl 25 Mg Tablet, 25 MG PO Q6H PRN for NAUSEA/VOMITING-2ND LINE, (Reported) Warfarin Sodium 4 Mg Tablet, 4 MG PO MO,,,FR,SA@1800, (Reported) Warfarin Sodium 5 Mg Tablet, 5 MG PO SAT,SAT @1800, (Reported) Patient Home Medication List Home Medication List Reviewed: Yes Review of Systems Review of Systems Constitutional: see HPI Eyes: No Symptoms Reported Ears: No Symptoms Reported Nose: no symptoms reported Mouth: no symptoms reported Throat: no symptoms reported Respiratory: no symptoms reported Cardiovascular: no symptoms reported Musculoskeletal: no symptoms reported Skin: no symptoms reported Neurological: No Symptoms Reported Hematologic/Lymphatic: No Symptoms Reported Immunological/Allergic: no symptoms reported Past Kspboqh-Nkjeyt-Ngprty Hx Patient Social History Drug of Choice: + IV COCAINE USE Type Used: Cigarettes Former Smoker, Quit: Nov 17, 2000 2nd Hand Smoke Exposure: No Recent Hopitalizations: Yes (05/21/19 knee sx) Immunizations Up To Date Tetanus Booster (TDap): Unknown PED Vaccines UTD: No Date of Pneumonia Vaccine: Sep 05, 2016 Date of Influenza Vaccine: Mar 11, 2012 Seasonal Allergies Seasonal Allergies: Yes Past Medical History Surgeries: Yes (C/S X2, KNEE SCOPE, SHOULDER SCOPE, d&C, BILAT ULNAR NERVE, VENA CAVA FILTE) Abdominal, Adenoidectomy, Section, Gallbladder, Hysterectomy, Orthopedic, Tonsillectomy, Tubal Ligation, Vascular Surgery Respiratory: Yes (O2 AT HS 2-3L/NC AND PRN--NOCTURNAL HYPOXIA; ) Asthma, Pneumonia, Chronic Bronchitis, Pulmonary Embolism, COPD Currently Using CPAP: No Currently Using BIPAP: No Cardiac: Yes Chronic Edema/Swelling, Deep Vein Thrombosis, High Cholesterol, Hypertension, Peripheral Vascular Neurological: Yes Neuropathy 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 Disorders: No 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, 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 Sexually Transmitted Disease: No HIV/AIDS: No 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: Yes Kidney Infection, Bladder Infection, Kidney Stones Gastrointestinal: Yes (MULTIPLE HERNIA REPAIRS; MULTIPLE EGD'S /COLONOSCOPIES/POLYPECTOMIES) Abdominal Hernia, Gastroesophageal Reflux, Chronic Constipation, Chronic Diarrhea, Hepatitis, Polyps, Hiatal Hernia, Irritable Bowel Musculoskeletal: Yes Arthritis Endocrine: Yes ("PRE-DIABETIC" ) HEENT: Yes (NASAL POLYPS REMOVED) Cataract Loss of Vision: Denies Hearing Impairment: Denies Cancer: No Did You Recieve Any Treatments: No Psychosocial: Yes Anxiety Integumentary: Yes (CHRONIC VENOUS STASIS DERMATITIS AND ULCERS. ) Recent Skin Changes Blood Disorders: Yes (DVT'S/PE'S; PROBABLE PROTEIN C DEFICIENCY) Adverse Reaction/Blood Tranf: No (HAS HAD BLOOD WITH NO PROBLEMS) Family Medical History Alcoholism Alcoholism Arthritis Asthma 19 MOTHER Cancer G8 BROTHER G8 SISTER Cancer of colon Cancer of mouth Cardiovascular disease Cataract Cataracts Chest pain Colon cancer Completed stroke Diabetes mellitus Family history: Allergy Family history: Arthritis Family history: Asthma Family history: Cardiovascular disease Family history: Coronary thrombosis Family history: Diabetes mellitus G8 BROTHER G8 SISTER Family history: Gastrointestinal disease Family history: Hypertension Family history: Thyroid disorder Headache Hearing loss Heart disease 19 MOTHER History of - anemia History of - respiratory disease Hypercholesterolemia Hypercholesterolemia Hypertension 19 FATHER Infertile Malignant neoplasm of lung Myocardial infarction Myocardial infarction Psychotic disorder Respiratory disorder Stroke No Family History of: AIDS Abdominal aortic aneurysm Abdominal aortic aneurysm Smyth's disease Smyth's disease Alzheimer's disease Aphasia Aphasia Congenital disease Congenital heart disease Congenital heart disease Congestive heart failure Coronary thrombosis Cystic fibrosis Cystic fibrosis Deafness or hearing loss Dementia Dementia Drug abuse Dysphagia Dysphasia Family history: Alzheimer's disease Family history: Breast disease Family history: Glaucoma Family history: Osteoporosis Fibrocystic disease of breast Gastroenteritis Glaucoma Headache disorder Hereditary disease History of - disorder History of drug abuse Human immunodeficiency virus (HIV) seropositivity Infertility Kidney disease Kidney disease Neoplasm Not obtainable due to adoption Osteoporosis Parkinson's disease Parkinson's disease Prostate cancer Psychosocial problem Seizure disorder Seizure disorder Severe allergy Thyroid disease Tuberculosis Tuberculosis Visual disorder Visual impairment Cancer, COPD, Vascular Disease Physical Exam Vital Signs Vital Signs - First Documented 06/30/20 11:42 Temp 36.4 Pulse 121 Resp 18 B/P (MAP) 155/104 (121) Pulse Ox 95 O2 Delivery Room Air Height, Weight, BMI Height: 5'5.00" Weight: 184lbs. 5.0oz. 83.651934lu; 36.00 BMI Method:Stated General Appearance: WD/WN, no apparent distress, other (Alert and oriented very pleasant her only complaint is of numbness of the nose and top lip. No active bleeding. GCS 15 no headache no neck pain.) Eyes: bilateral eye normal inspection, bilateral eye PERRL, bilateral eye EOMI Ears: bilateral ear auricle normal, bilateral ear canal normal, bilateral ear TM normal Nose: other (Dried blood on the left side of the septum) Mouth/Throat: normal mouth inspection, other Neck: non-tender, full range of motion Respiratory: no respiratory distress, no accessory muscle use Neurologic/Psychiatric: alert, normal mood/affect, oriented x 3 Skin: normal color, warm/dry Progress/Results/Core Measures Results/Orders My Orders Orders - KAMRAN LINDQUIST APRN Ct Head/Maxillofacial Wo (06/30/20 11:46) Vital Signs/I&O 06/30/20 11:42 Temp 36.4 Pulse 121 Resp 18 B/P (MAP) 155/104 (121) Pulse Ox 95 O2 Delivery Room Air Diagnostic Imaging Diagonstic Imaging: CT Comments NAME: SUJEY FELIZ [facility] REC#: [id number] PT STATUS: REG ER : 1960 PHYSICIAN: KAMRAN LINDQUIST APRN ADMIT DATE: 06/30/20/ER Draft Date of Exam:06/30/20 CT HEAD/MAXILLOFACIAL WO PROCEDURE: CT head and maxillofacial without contrast. TECHNIQUE: Multiple contiguous axial images were obtained through the head and facial bones without the use of intravenous contrast. Auto Exposure Controls were utilized during the CT exam to meet ALARA standards for radiation dose reduction. INDICATION: Fall with face down, injury, pain. COMPARISON: Exam compared with facial bone CT dated 02/15/2017. FINDINGS: CT HEAD: There is no intracranial hemorrhage, hydrocephalus, edema, mass, mass effect, or calvarial fracture deformity. No pneumocephalus. The mastoid air cells and middle ear cavities are clear. No findings of elevated pressure. No mass or mass effect. FACIAL BONES: Mandible is intact. Temporomandibular joint showed no dislocation. There is complete opacification of the bilateral maxillary sinuses as well as near-complete opacification of the ethmoid air cells. There is membrane disease in the floor of the left frontal sinus. No nasal bone or nasal septal fracture is identified. There are postsurgical changes to the medial maxillary sinus guzman, chronic. The pterygoid plates are intact. The bony orbital guzman are intact. No retrobulbar or postseptal hematoma. No proptosis. The central skull base appeared intact. IMPRESSION: 1. Head: No acute intracerebral pathology. 2. Facial bones: No facial fracture, however there is profound chronic paranasal sinus disease as described; very similar to a comparison of 2017. No post-traumatic sequelae identified. Dictated on workstation # [id number] Dict: 06/30/20 1247 Trans: 06/30/20 1258 [id number] [id number] Interpreted by: BENI GAMINO Electronically signed by: Departure Impression Primary Impression: Facial contusion Disposition: 01 HOME, SELF-CARE Condition: Stable Departure-Patient Inst. Decision time for Depature: 13:06 Referrals: LEAH WOLF MD (PCP/Family) Primary Care Physician Patient Instructions: Contusion (DC) Add. Discharge Instructions: 1. Return to ER for any headache confusion vomiting or other concerns. Follow- up with your doctor next week. KAMRAN LINDQUIST APRN Jun 30, 2020 11:50
--- NOTE | 2020-06-30 12:58 | Diagnostic Imaging Report ---
PROCEDURE: CT head and maxillofacial without contrast. TECHNIQUE: Multiple contiguous axial images were obtained through the head and facial bones without the use of intravenous contrast. Auto Exposure Controls were utilized during the CT exam to meet ALARA standards for radiation dose reduction. INDICATION: Fall with face down, injury, pain. COMPARISON: Exam compared with facial bone CT dated 02/15/2017. FINDINGS: CT HEAD: There is no intracranial hemorrhage, hydrocephalus, edema, mass, mass effect, or calvarial fracture deformity. No pneumocephalus. The mastoid air cells and middle ear cavities are clear. No findings of elevated pressure. No mass or mass effect. FACIAL BONES: Mandible is intact. Temporomandibular joint showed no dislocation. There is complete opacification of the bilateral maxillary sinuses as well as near-complete opacification of the ethmoid air cells. There is membrane disease in the floor of the left frontal sinus. No nasal bone or nasal septal fracture is identified. There are postsurgical changes to the medial maxillary sinus guzman, chronic. The pterygoid plates are intact. The bony orbital guzman are intact. No retrobulbar or postseptal hematoma. No proptosis. The central skull base appeared intact. IMPRESSION: 1. Head: No acute intracerebral pathology. 2. Facial bones: No facial fracture, however there is profound chronic paranasal sinus disease as described; very similar to a comparison of 2017. No post-traumatic sequelae identified. Dictated by: Dictated on workstation # [id number]
[2020-06-30 13:15] VITALS: BP 109/68
== END 2020-06-30 13:23 | disposition home or self-care (01) ==
LOC: EDUNIT# 11:37 → ER 11:39
DX: S00.33XA Contusion of nose, initial encounter (principal); S00.531A Contusion of lip, initial encounter; R40.2410 Glasgow coma scale score 13-15, unspecified time; I10 Essential (primary) hypertension; K21.9 Gastro-esophageal reflux disease without esophagitis; K58.9 Irritable bowel syndrome, unspecified; F41.9 Anxiety disorder, unspecified; J44.9 Chronic obstructive pulmonary disease, unspecified; Z87.891 Personal history of nicotine dependence; Z86.711 Personal history of pulmonary embolism; Z86.718 Personal history of other venous thrombosis and embolism; Z79.51 Long term (current) use of inhaled steroids; Z79.01 Long term (current) use of anticoagulants; Z79.52 Long term (current) use of systemic steroids; Z88.6 Allergy status to analgesic agent; Z88.7 Allergy status to serum and vaccine; Z88.8 Allergy status to other drugs, medicaments and biological substances; Z91.040 Latex allergy status; Z80.0 Family history of malignant neoplasm of digestive organs; Z80.8 Family history of malignant neoplasm of other organs or systems; Z80.1 Family history of malignant neoplasm of trachea, bronchus and lung; Z83.3 Family history of diabetes mellitus; W18.30XA Fall on same level, unspecified, initial encounter; Y92.009 Unspecified place in unspecified non-institutional (private) residence as the place of occurrence of the external cause
CPT/HCPCS: 70450; 70486

== ENCOUNTER 2020-08-07 11:56 | Emergency (ER) | payer MEDICAID ==
[~2020-08-07] VITALS: Ht 165.1 cm; Wt 99.3 kg
--- NOTE | 2020-08-07 12:16 | ED General ---
General Stated Complaint: R SIDE BACK PAIN - COUGH/SOA Source of Information: Patient Exam Limitations: No Limitations History of Present Illness Date Seen by Provider: Aug 07, 2020 Time Seen by Provider: 15:00 Initial Comments Right-sided back pain from the thoracic to the lumbar region worsening with deep breathing and coughing. Has COPD. 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 No fever or chills Timing/Duration: 1-2 Days Severity: Moderate Associated Systoms: Cough Allergies and Home Medications Allergies Coded Allergies: aspirin (Verified Allergy, Severe, ANAPHYLAXIS, 03/03/19) ibuprofen (Verified Allergy, Severe, ANAPHYLAXIS, 03/03/19) ketorolac (Verified Allergy, Severe, ANAPHYLAXIS, 03/03/19) tetanus and diphtheria toxoids (Unverified Allergy, Severe, ANAPHYLAXIS, 03/03/19) aloe (Verified Allergy, Mild, RASH, 03/03/19) latex (Verified Allergy, Mild, RASH, 03/03/19) OCCASIONALLY IS IRRITATING SKIN scopolamine (Verified Allergy, Mild, 03/03/19) iodine (Verified Adverse Reaction, Unknown, 03/03/19) Patient states she got dizzy, diaphoretic and saw stars. Uncoded Allergies: ALOE VERA (Allergy, Unknown, 12/23/05) SILK SUTURES (Adverse Reaction, Unknown, BODY REJECTS SUTURES, 10/07/13) Home Medications Albuterol Sulfate 8.5 Gm Hfa.aer.ad, 2 PUFF IH Q4H PRN for SHORTNESS OF BREATH, (Reported) Albuterol Sulfate 2.5 Mg/3 Ml Vial.neb, 2.5 MG NEB Q2H PRN for SHORTNESS OF BREATH, (Reported) Alprazolam 1 Mg Tablet, 1 MG PO BID PRN for ANXIETY, (Reported) Calcium Carbonate/Vitamin D3 1 Each Tablet, 1 TAB PO BID, (Reported) Cyclobenzaprine HCl 5 Mg Tablet, 5 MG PO Q8H PRN for MUSCLE SPASMS Prescribed by: JULIO C MERINO on 12/05/19 1423 Epinephrine 0.3 Mg/0.3 Ml Auto.injct, 0.3 MG IJ PRN, (Reported) Fluticasone Propionate 1 Ea Aero, 2 PUFF INH BID, (Reported) Furosemide 40 Mg Tablet, 40 MG PO DAILY, (Reported) Hydrocodone/Acetaminophen 1 Each Tablet, 1 TAB PO Q6- 8H PRN for PAIN-MODERATE (5-7), (Reported) Hyoscyamine Sulfate 0.125 Mg Tab.rapdis, 0.125 MG SL Q6H PRN for ABDOMINAL PAIN, (Reported) Ipratropium [place] 0.2 Mg/1 Ml Solution, 1 VIAL NEB TID, (Reported) MIXES WITH ALBUTEROL SOLUTION Loratadine 10 Mg Tablet, 10 MG PO DAILY, (Reported) Metoprolol Succinate 25 Mg Tab.er.24h, 25 MG PO DAILY Prescribed by: KAMRAN LINDQUIST on 03/31/201747 Montelukast Sodium 10 Mg Tablet, 10 MG PO HS, (Reported) Oxycodone HCl/Acetaminophen 1 Each Tablet, 1-2 TAB PO Q4H PRN for PAIN-MODERATE (5-7) Prescribed by: ALVA LAMAR on 12/03/192010 Pantoprazole Sodium 40 Mg Tablet.dr, 40 MG PO DAILY, (Reported) Potassium Chloride 10 Meq Tablet.er, 20 MEQ PO BID, (Reported) TAKES 2 (10MEQ) TABLETS Prednisone 20 Mg Tab, 20 MG PO UD, (Reported) ON TAPER DOSE 3 TABS X 3 DAYS, THEN 2 TABS X 3 DAYS, THEN 1 T X 3 DAYS= PT IS JUST STARTING THEN 1 TAB X 3 DAYS Promethazine HCl 25 Mg Tablet, 25 MG PO Q6H PRN for NAUSEA/VOMITING-2ND LINE, (Reported) Warfarin Sodium 4 Mg Tablet, 4 MG PO MO,,TH,FR,SA@1800, (Reported) Warfarin Sodium 5 Mg Tablet, 5 MG PO SAT,SAT @1800, (Reported) Patient Home Medication List Home Medication List Reviewed: Yes Review of Systems Review of Systems Constitutional: see HPI; No chills, No fever EENTM: see HPI Respiratory: see HPI, cough (chronic), short of breath (chronic) Cardiovascular: no symptoms reported 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: no symptoms reported Musculoskeletal: no symptoms reported Skin: no symptoms reported Psychiatric/Neurological: No Symptoms Reported Hematologic/Lymphatic: No Symptoms Reported Past Thmxmgr-Evaqcc-Awjhru Hx Patient Social History Drug of Choice: + IV COCAINE USE Type Used: Cigarettes Former Smoker, Quit: Nov 17, 2000 2nd Hand Smoke Exposure: No Recent Hopitalizations: Yes (05/21/19 knee sx) Immunizations Up To Date Tetanus Booster (TDap): Unknown PED Vaccines UTD: No Date of Pneumonia Vaccine: Sep 05, 2016 Date of Influenza Vaccine: Mar 11, 2012 Seasonal Allergies Seasonal Allergies: Yes Past Medical History Surgeries: Yes (C/S X2, KNEE SCOPE, SHOULDER SCOPE, d&C, BILAT ULNAR NERVE, VENA CAVA FILTE) Abdominal, Adenoidectomy, Section, Gallbladder, Hysterectomy, Orthopedic, Tonsillectomy, Tubal Ligation, Vascular Surgery Respiratory: Yes (O2 AT HS 2-3L/NC AND PRN--NOCTURNAL HYPOXIA; ) Asthma, Pneumonia, Chronic Bronchitis, Pulmonary Embolism, COPD Currently Using CPAP: No Currently Using BIPAP: No Cardiac: Yes Chronic Edema/Swelling, Deep Vein Thrombosis, High Cholesterol, Hypertension, Peripheral Vascular Neurological: Yes Neuropathy 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 Disorders: No 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 Disorders: Denies 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 History: Hysterectomy, Menopausal Sexually Transmitted Disease: No HIV/AIDS: No 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: Yes Kidney Infection, Bladder Infection, Kidney Stones Gastrointestinal: Yes (MULTIPLE HERNIA REPAIRS; MULTIPLE EGD'S /COLONOSCOPIES/POLYPECTOMIES) Abdominal Hernia, Gastroesophageal Reflux, Chronic Constipation, Chronic Diarrhea, Hepatitis, Polyps, Hiatal Hernia, Irritable Bowel Musculoskeletal: Yes Arthritis Endocrine: Yes ("PRE-DIABETIC" ) HEENT: Yes (NASAL POLYPS REMOVED) Cataract Loss of Vision: Denies Hearing Impairment: Denies Cancer: No Did You Recieve Any Treatments: No Psychosocial: Yes Anxiety Integumentary: Yes (CHRONIC VENOUS STASIS DERMATITIS AND ULCERS. ) Recent Skin Changes Blood Disorders: Yes (DVT'S/PE'S; PROBABLE PROTEIN C DEFICIENCY) Adverse Reaction/Blood Tranf: No (HAS HAD BLOOD WITH NO PROBLEMS) Family Medical History Alcoholism Alcoholism Arthritis Asthma 19 MOTHER Cancer G8 BROTHER G8 SISTER Cancer of colon Cancer of mouth Cardiovascular disease Cataract Cataracts Chest pain Colon cancer Completed stroke Diabetes mellitus Family history: Allergy Family history: Arthritis Family history: Asthma Family history: Cardiovascular disease Family history: Coronary thrombosis Family history: Diabetes mellitus G8 BROTHER G8 SISTER Family history: Gastrointestinal disease Family history: Hypertension Family history: Thyroid disorder Headache Hearing loss Heart disease 19 MOTHER History of - anemia History of - respiratory disease Hypercholesterolemia Hypercholesterolemia Hypertension 19 FATHER Infertile Malignant neoplasm of lung Myocardial infarction Myocardial infarction Psychotic disorder Respiratory disorder Stroke No Family History of: AIDS Abdominal aortic aneurysm Abdominal aortic aneurysm Humphreys's disease Humphreys's disease Alzheimer's disease Aphasia Aphasia Congenital disease Congenital heart disease Congenital heart disease Congestive heart failure Coronary thrombosis Cystic fibrosis Cystic fibrosis Deafness or hearing loss Dementia Dementia Drug abuse Dysphagia Dysphasia Family history: Alzheimer's disease Family history: Breast disease Family history: Glaucoma Family history: Osteoporosis Fibrocystic disease of breast Gastroenteritis Glaucoma Headache disorder Hereditary disease History of - disorder History of drug abuse Human immunodeficiency virus (HIV) seropositivity Infertility Kidney disease Kidney disease Neoplasm Not obtainable due to adoption Osteoporosis Parkinson's disease Parkinson's disease Prostate cancer Psychosocial problem Seizure disorder Seizure disorder Severe allergy Thyroid disease Tuberculosis Tuberculosis Visual disorder Visual impairment Cancer, COPD, Vascular Disease Physical Exam Vital Signs Vital Signs - First Documented 08/07/20 12:00 Temp 36.4 Pulse 106 Resp 20 B/P (MAP) 140/85 (103) Pulse Ox 94 O2 Delivery Room Air Capillary Refill : Height, Weight, BMI Height: 5'5.00" Weight: 184lbs. 5.0oz. 83.209128ba; 36.00 BMI Method:Stated General Appearance: No Apparent Distress, WD/WN Eyes: Bilateral Eye Normal Inspection, Bilateral Eye PERRL Neck: Full Range of Motion, Normal Inspection Respiratory: Normal Breath Sounds, No Accessory Muscle Use, No Respiratory Distress, Decreased Breath Sounds Cardiovascular: Regular Rate, Rhythm, Normal Peripheral Pulses Gastrointestinal: Non Tender, Soft Back: Normal Inspection, Other (right flank ttp) Extremity: Normal Capillary Refill, Normal Inspection Neurologic/Psychiatric: Alert, Oriented x3 Skin: Normal Color, Warm/Dry Progress/Results/Core Measures Suspected Sepsis SIRS Temperature: Pulse: Respiratory Rate: Laboratory Tests 08/07/20 12:22: White Blood Count 8.8 Blood Pressure / Mean: Laboratory Tests 08/07/20 12:22: Creatinine 0.72, INR Comment 1.3, Platelet Count 296 Results/Orders Lab Results Laboratory Tests Test 08/07/20 12:22 08/07/20 12:45 Range/Units White Blood Count 8.8 4.3-11.0 10^3/uL Red Blood Count 4.66 3.80-5.11 10^6/uL Hemoglobin 13.0 11.5-16.0 g/dL Hematocrit 41 35-52 % Mean Corpuscular Volume 89 80-99 fL Mean Corpuscular Hemoglobin 28 25-34 pg Mean Corpuscular Hemoglobin Concent 31 L 32-36 g/dL Red Cell Distribution Width 16.1 H 10.0-14.5 % Platelet Count 296 130-400 10^3/uL Mean Platelet Volume 8.7 L 9.0-12.2 fL Immature Granulocyte % (Auto) 0 % Neutrophils (%) (Auto) 82 H 42-75 % Lymphocytes (%) (Auto) 13 12-44 % Monocytes (%) (Auto) 4 0-12 % Eosinophils (%) (Auto) 1 0-10 % Basophils (%) (Auto) 0 0-10 % Neutrophils # (Auto) 7.2 1.8-7.8 10^3/uL Lymphocytes # (Auto) 1.1 1.0-4.0 10^3/uL Monocytes # (Auto) 0.4 0.0-1.0 10^3/uL Eosinophils # (Auto) 0.1 0.0-0.3 10^3/uL Basophils # (Auto) 0.0 0.0-0.1 10^3/uL Immature Granulocyte # (Auto) 0.0 0.0-0.1 10^3/uL Prothrombin Time 17.0 H 12.2-14.7 SEC INR Comment 1.3 0.8-1.4 Sodium Level 142 135-145 MMOL/L Potassium Level 4.0 3.6-5.0 MMOL/L Chloride Level 107 98-107 MMOL/L Carbon Dioxide Level 22 21-32 MMOL/L Anion Gap 13 5-14 MMOL/L Blood Urea Nitrogen 15 7-18 MG/DL Creatinine 0.72 0.60-1.30 MG/DL Estimat Glomerular Filtration Rate > 60 BUN/Creatinine Ratio 21 Glucose Level 141 H 70-105 MG/DL Calcium Level 9.3 8.5-10.1 MG/DL Urine Color YELLOW Urine Clarity CLEAR Urine pH 7.0 5-9 Urine Specific [place] 1.020 1.016-1.022 Urine Protein NEGATIVE NEGATIVE Urine Glucose (UA) NEGATIVE NEGATIVE Urine Ketones TRACE H NEGATIVE Urine Nitrite NEGATIVE NEGATIVE Urine Bilirubin NEGATIVE NEGATIVE Urine Urobilinogen 0.2 < = 1.0 MG/DL Urine Leukocyte Esterase TRACE H NEGATIVE Urine RBC (Auto) NEGATIVE NEGATIVE Urine RBC NONE /HPF Urine WBC RARE /HPF Urine Squamous Epithelial Cells RARE /HPF Urine Crystals NONE /LPF Urine Bacteria FEW H /HPF Urine Casts NONE /LPF Urine Mucus NEGATIVE /LPF Urine Culture Indicated NO My Orders Orders - KAMRAN LINDQUIST APRN Chest 1 View, Ap/Pa Only (08/07/20 12:05) Cbc With Automated Diff (08/07/20 12:13) Basic Metabolic Panel (08/07/20 12:13) Ua Culture If Indicated (08/07/20 12:13) Protime With Inr (08/07/20 12:13) Enoxaparin Injection (Lovenox Injection) (08/07/20 13:15) Cefdinir Capsule (Omnicef Capsule) (08/07/20 13:30) Vital Signs/I&O 08/07/20 12:00 Temp 36.4 Pulse 106 Resp 20 B/P (MAP) 140/85 (103) Pulse Ox 94 O2 Delivery Room Air Capillary Refill : Departure Communication (Admissions) Patient states that she has a 9-day taper of prednisone at home all the time on hand in case she needs it. We will have her start this. I will give her Lovenox here and have her take an extra dose of Coumadin tonight. Impression Primary Impression: Pleuritic chest pain Additional Impressions: Subtherapeutic anticoagulation COPD exacerbation Disposition: 01 HOME, SELF-CARE Condition: Stable Departure-Patient Inst. Decision time for Depature: 13:24 Referrals: LEAH WOLF MD (PCP/Family) Primary Care Physician Patient Instructions: COPD Exacerbation, Adult ED Add. Discharge Instructions: . Start your prednisone taper once you get home. Take the antibiotics as directed. Take an extra dose of Coumadin tonight. Call Dr. Wolf tomorrow to make an appointment to be seen for follow-up. Scripts Cefprozil (Cefprozil) 500 Mg Tablet 500 MG PO BID, #10 TAB Prov: KAMRAN LINDQUIST APRN 08/07/20 Copy Copies To 1: LEAH WOLF MD, PETER J APRN Aug 07, 2020 12:16
[2020-08-07 12:31] LABS: BASOPHILS % (AUTO) 0 % (0-10); EOSINOPHILS # (AUTO) 0.1 10^3/uL (0.0-0.3); EOSINOPHILS % (AUTO) 1 % (0-10); HEMATOCRIT 41 % (35-52); LYMPHOCYTES # (AUTO) 1.1 10^3/uL (1.0-4.0); LYMPHOCYTES % (AUTO) 13 % (12-44); MEAN CORPUSCULAR HEMOGLOBIN 28 pg (25-34); MEAN CORPUSCULAR HGB CONC 31 g/dL (32-36); MEAN CORPUSCULAR VOLUME 89 fL (80-99); MEAN PLATELET VOLUME 8.7 fL (9.0-12.2); MONOCYTES # (AUTO) 0.4 10^3/uL (0.0-1.0); MONOCYTES % (AUTO) 4 % (0-12); NEUTROPHILS # (AUTO) 7.2 10^3/uL (1.8-7.8); NEUTROPHILS % (AUTO) 82 % (42-75); PLATELET COUNT 296 10^3/uL (130-400); WHITE BLOOD COUNT 8.8 10^3/uL (4.3-11.0)
[2020-08-07 12:39] LABS: CHLORIDE 107 MMOL/L (98-107); SODIUM 142 MMOL/L (135-145)
[2020-08-07 12:40] LABS: CALCIUM 9.3 MG/DL (8.5-10.1)
[2020-08-07 12:41] LABS: GLUCOSE 141 MG/DL (70-105)
[2020-08-07 12:42] LABS: CARBON DIOXIDE 22 MMOL/L (21-32); INR 1.3 (0.8-1.4)
--- NOTE | 2020-08-07 12:43 | Diagnostic Imaging Report ---
INDICATION: Cough COMPARISON STUDY: Chest from March 31. FINDINGS: Frontal view of the chest is unchanged from the previous exam. Heart size is normal. The left lung base is underpenetrated. Vascularity is normal. Hyperinflation is stable. IMPRESSION: Stable chest with hyperinflation suggestive of COPD. Dictated by: Dictated on workstation # [id number]
[2020-08-07 12:44] LABS: CREATININE SERUM 0.72 MG/DL (0.60-1.30); GFR ESTIMATED > 60
[2020-08-07 12:45] LABS: BUN/CREATININE RATIO 21
[2020-08-07 12:54] LABS: BILIRUBIN,URINE NEGATIVE (NEGATIVE); CLARITY,URINE CLEAR; COLOR,URINE YELLOW; GLUCOSE, URINE (UA) NEGATIVE (NEGATIVE); KETONES,URINE TRACE (NEGATIVE); LEUKOCYTE ESTERASE ,URINE TRACE (NEGATIVE); NITRITE,URINE NEGATIVE (NEGATIVE); PROTEIN,URINE NEGATIVE (NEGATIVE)
[2020-08-07 13:01] LABS: BACTERIA,URINE FEW /HPF; SQUAMOUS EPITHELIAL CELL,UR RARE /HPF; WBC,URINE RARE /HPF
[2020-08-07] MEDS ORDERED: ENOXAPARIN 100 MG/1 ML (LOVENOX) SYR SC ONE (13:15)
[2020-08-07] MEDS ORDERED: CEFP500T4 PO (13:27)
[2020-08-07] MEDS ORDERED: CEFDINIR 300 MG (OMNICEF) CAP PO ONE (13:30)
[2020-08-07 13:37] VITALS: BP 122/84
== END 2020-08-07 13:36 | disposition home or self-care (01) ==
LOC: EDUNIT# 11:56 → ER 11:59
DX: R07.81 Pleurodynia (principal); J44.1 Chronic obstructive pulmonary disease with (acute) exacerbation; I10 Essential (primary) hypertension; K21.9 Gastro-esophageal reflux disease without esophagitis; F41.9 Anxiety disorder, unspecified; Z88.7 Allergy status to serum and vaccine; Z91.041 Radiographic dye allergy status; Z91.040 Latex allergy status; Z88.6 Allergy status to analgesic agent; Z88.8 Allergy status to other drugs, medicaments and biological substances; Z86.711 Personal history of pulmonary embolism; Z86.718 Personal history of other venous thrombosis and embolism; Z87.891 Personal history of nicotine dependence; Z82.61 Family history of arthritis; Z80.0 Family history of malignant neoplasm of digestive organs; Z83.3 Family history of diabetes mellitus; Z82.49 Family history of ischemic heart disease and other diseases of the circulatory system; Z80.1 Family history of malignant neoplasm of trachea, bronchus and lung; Z79.01 Long term (current) use of anticoagulants; Z79.52 Long term (current) use of systemic steroids
CPT/HCPCS: 36415; 71045; 80048; 81000; 85025; 85610

== ENCOUNTER 2020-10-12 09:39 | Emergency (ER) | payer MEDICAID ==
[~2020-10-12] VITALS: Ht 165 cm; Wt 98.4 kg
[2020-10-12 10:12] LABS: BASOPHILS % (AUTO) 0 % (0-10); EOSINOPHILS # (AUTO) 0.2 10^3/uL (0.0-0.3); EOSINOPHILS % (AUTO) 2 % (0-10); HEMATOCRIT 40 % (35-52); HEMOGLOBIN 12.8 g/dL (11.5-16.0); LYMPHOCYTES # (AUTO) 1.5 10^3/uL (1.0-4.0); LYMPHOCYTES % (AUTO) 17 % (12-44); MEAN CORPUSCULAR HEMOGLOBIN 28 pg (25-34); MEAN CORPUSCULAR HGB CONC 32 g/dL (32-36); MEAN CORPUSCULAR VOLUME 88 fL (80-99); MEAN PLATELET VOLUME 8.8 fL (9.0-12.2); MONOCYTES # (AUTO) 0.6 10^3/uL (0.0-1.0); MONOCYTES % (AUTO) 6 % (0-12); NEUTROPHILS # (AUTO) 6.8 10^3/uL (1.8-7.8); NEUTROPHILS % (AUTO) 75 % (42-75); PLATELET COUNT 272 10^3/uL (130-400); WHITE BLOOD COUNT 9.1 10^3/uL (4.3-11.0)
[2020-10-12 10:17] LABS: CHLORIDE 104 MMOL/L (98-107); INR 2.3 (0.8-1.4); POTASSIUM 3.9 MMOL/L (3.6-5.0); SODIUM 142 MMOL/L (135-145)
[2020-10-12 10:19] LABS: CALCIUM 9.1 MG/DL (8.5-10.1); GLUCOSE 130 MG/DL (70-105)
[2020-10-12 10:21] LABS: CARBON DIOXIDE 25 MMOL/L (21-32)
[2020-10-12 10:23] LABS: CREATININE SERUM 0.73 MG/DL (0.60-1.30); GFR ESTIMATED > 60
[2020-10-12 10:24] LABS: BUN/CREATININE RATIO 22
--- NOTE | 2020-10-12 10:54 | Diagnostic Imaging Report ---
INDICATION: Left leg pain, heat, history of deep venous thrombosis. TECHNIQUE: Multiple Real-time grayscale images were obtained over the left lower extremity in various projections, bilaterally. Additional duplex Doppler and color Doppler images were also obtained. CORRELATION STUDY: 12/30/2019. FINDINGS: There are scattered areas of clot within the left leg. Areas of clot are noted within the calf veins which extend more centrally and become occlusive at the level of the popliteal vein. More centrally, there appear to be scattered areas of partial or nonocclusive clot within the femoral vein of the thigh. The common femoral vein is unremarkable. IMPRESSION: 1. The findings are positive for multifocal areas of deep venous thrombosis of the left leg. These are most pronounced within the calf extending into the popliteal vein but also involve scattered clot within the femoral vein in the thigh. There has been some change in the distribution and extent of the clot compared to the prior study. 2. The findings were relayed by the farmer diversified crops at the time of imaging. Dictated by: Dictated on workstation # [id number]
--- NOTE | 2020-10-12 10:58 | ED Lower Extremity ---
General Chief Complaint: Lower Extremity Stated Complaint: L LEG RED/PAIN Nursing Triage Note: Ambulatory to room 7. Pt c/o L leg pain and warmth that began this morning. Nursing Sepsis Screen: No Definite Risk Source: patient Exam Limitations: no limitations History of Present Illness Date Seen by Provider: Oct 12, 2020 Time Seen by Provider: 09:43 Initial Comments This 60-year-old woman presents to the emergency room with complaints of increased pain, swelling, heat, and erythema of the left lower leg starting this morning. She notes an injury to the left barrera with a break in the skin a couple of weeks ago. She did have some drainage from that wound. She has a history of a DVT in the left leg. She has been on warfarin therapy but notes that she was subtherapeutic a few weeks ago. Dosages have been changed and she was due to have her INR checked this week. She is afebrile. Dr. Wolf manages her warfarin therapy. Allergies and Home Medications Allergies Coded Allergies: aspirin (Verified Allergy, Severe, ANAPHYLAXIS, 03/03/19) ibuprofen (Verified Allergy, Severe, ANAPHYLAXIS, 03/03/19) ketorolac (Verified Allergy, Severe, ANAPHYLAXIS, 03/03/19) tetanus and diphtheria toxoids (Unverified Allergy, Severe, ANAPHYLAXIS, 1 ) aloe (Verified Allergy, Mild, RASH, 03/03/19) latex (Verified Allergy, Mild, RASH, 03/03/19) OCCASIONALLY IS IRRITATING SKIN scopolamine (Verified Allergy, Mild, 03/03/19) iodine (Verified Adverse Reaction, Unknown, 03/03/19) Patient states she got dizzy, diaphoretic and saw stars. Uncoded Allergies: ALOE VERA (Allergy, Unknown, 12/23/05) SILK SUTURES (Adverse Reaction, Unknown, BODY REJECTS SUTURES, 10/07/13) Home Medications Albuterol Sulfate 8.5 Gm Hfa.aer.ad, 2 PUFF IH Q4H PRN for SHORTNESS OF BREATH, (Reported) Albuterol Sulfate 2.5 Mg/3 Ml Vial.neb, 2.5 MG NEB Q2H PRN for SHORTNESS OF BREATH, (Reported) Alprazolam 1 Mg Tablet, 1 MG PO BID PRN for ANXIETY, (Reported) Calcium Carbonate/Vitamin D3 1 Each Tablet, 1 TAB PO BID, (Reported) Cefprozil 500 Mg Tablet, 500 MG PO BID Prescribed by: KAMRAN LINDQUIST on 08/07/20 1327 Cyclobenzaprine HCl 5 Mg Tablet, 5 MG PO Q8H PRN for MUSCLE SPASMS Prescribed by: JULIO C MERINO on 12/05/19 1429 Epinephrine 0.3 Mg/0.3 Ml Auto.injct, 0.3 MG IJ PRN, (Reported) Fluticasone Propionate 1 Ea Aero, 2 PUFF INH BID, (Reported) Furosemide 40 Mg Tablet, 40 MG PO DAILY, (Reported) Hydrocodone/Acetaminophen 1 Each Tablet, 1 TAB PO Q6- 8H PRN for PAIN-MODERATE (5-7), (Reported) Hyoscyamine Sulfate 0.125 Mg Tab.rapdis, 0.125 MG SL Q6H PRN for ABDOMINAL PAIN, (Reported) Ipratropium [place]gett 0.2 Mg/1 Ml Solution, 1 VIAL NEB TID, (Reported) MIXES WITH ALBUTEROL SOLUTION Loratadine 10 Mg Tablet, 10 MG PO DAILY, (Reported) Metoprolol Succinate 25 Mg Tab.er.24h, 25 MG PO DAILY Prescribed by: KAMRAN LINDQUIST on 03/31/20 1748 Montelukast Sodium 10 Mg Tablet, 10 MG PO HS, (Reported) Oxycodone HCl/Acetaminophen 1 Each Tablet, 1-2 TAB PO Q4H PRN for PAIN-MODERATE (5-7) Prescribed by: ALVA LAMAR on 12/03/192010 Pantoprazole Sodium 40 Mg Tablet.dr, 40 MG PO DAILY, (Reported) Potassium Chloride 10 Meq Tablet.er, 20 MEQ PO BID, (Reported) TAKES 2 (10MEQ) TABLETS Prednisone 20 Mg Tab, 20 MG PO UD, (Reported) ON TAPER DOSE 3 TABS X 3 DAYS, THEN 2 TABS X 3 DAYS, THEN 1 T X 3 DAYS= PT IS JUST STARTING THEN 1 TAB X 3 DAYS Promethazine HCl 25 Mg Tablet, 25 MG PO Q6H PRN for NAUSEA/VOMITING-2ND LINE, (Reported) Warfarin Sodium 4 Mg Tablet, 4 MG PO MO,,TH,FR,SA@1800, (Reported) Warfarin Sodium 5 Mg Tablet, 5 MG PO SAT,SAT @1800, (Reported) Patient Home Medication List Home Medication List Reviewed: Yes Review of Systems Constitutional: no symptoms reported EENTM: no symptoms reported Respiratory: no symptoms reported Cardiovascular: see HPI Gastrointestinal: no symptoms reported 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: no symptoms reported : No Musculoskeletal: no symptoms reported Skin: see HPI Psychiatric/Neurological: No Symptoms Reported Past Kfqjajh-Ilqfgp-Jixkje Hx Past Med/Social Hx: Reviewed Nursing Past Med/Soc Hx Patient Social History Alcohol Use: Denies Use Drug of Choice: + IV COCAINE USE Type Used: Cigarettes Former Smoker, Quit: Nov 17, 2000 2nd Hand Smoke Exposure: No Recent Infectious Disease Expo: No Recent Hopitalizations: Yes (05/21/19 knee sx) Immunizations Up To Date Tetanus Booster (TDap): Unknown PED Vaccines UTD: No Date of Pneumonia Vaccine: Sep 05, 2016 Date of Influenza Vaccine: Mar 11, 2012 Seasonal Allergies Seasonal Allergies: Yes Past Medical History Surgeries: Yes (C/S X2, KNEE SCOPE, SHOULDER SCOPE, d&C, BILAT ULNAR NERVE, VENA CAVA FILTE) Abdominal, Adenoidectomy, Section, Gallbladder, Hysterectomy, Orthopedic, Tonsillectomy, Tubal Ligation, Vascular Surgery Respiratory: Yes (O2 AT HS 2-3L/NC AND PRN--NOCTURNAL HYPOXIA; ) Asthma, Pneumonia, Chronic Bronchitis, Pulmonary Embolism, COPD Currently Using CPAP: No Currently Using BIPAP: No Cardiac: Yes Chronic Edema/Swelling, Deep Vein Thrombosis, High Cholesterol, Hypertension, Peripheral Vascular Neurological: Yes Neuropathy 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 Disorders: No 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 Disorders: Denies FOREPART LASTER History: Hysterectomy, Menopausal Sexually Transmitted Disease: No HIV/AIDS: No 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: Yes Kidney Infection, Bladder Infection, Kidney Stones Gastrointestinal: Yes (MULTIPLE HERNIA REPAIRS; MULTIPLE EGD'S /COLO NOSCOPIES/POLYPECTOMIES) Abdominal Hernia, Gastroesophageal Reflux, Chronic Constipation, Chronic Diarrhea, Hepatitis, Polyps, Hiatal Hernia, Irritable Bowel Musculoskeletal: Yes Arthritis Endocrine: Yes ("PRE-DIABETIC" ) HEENT: Yes (NASAL POLYPS REMOVED) Cataract Loss of Vision: Denies Hearing Impairment: Denies Cancer: No Did You Recieve Any Treatments: No Psychosocial: Yes Anxiety Integumentary: Yes (CHRONIC VENOUS STASIS DERMATITIS AND ULCERS. ) Recent Skin Changes Blood Disorders: Yes (DVT'S/PE'S; PROBABLE PROTEIN C DEFICIENCY) Adverse Reaction/Blood Tranf: No (HAS HAD BLOOD WITH NO PROBLEMS) Family Medical History Alcoholism Alcoholism Arthritis Asthma 19 MOTHER Cancer G8 BROTHER G8 SISTER Cancer of colon Cancer of mouth Cardiovascular disease Cataract Cataracts Chest pain Colon cancer Completed stroke Diabetes mellitus Family history: Allergy Family history: Arthritis Family history: Asthma Family history: Cardiovascular disease Family history: Coronary thrombosis Family history: Diabetes mellitus G8 BROTHER G8 SISTER Family history: Gastrointestinal disease Family history: Hypertension Family history: Thyroid disorder Headache Hearing loss Heart disease 19 MOTHER History of - anemia History of - respiratory disease Hypercholesterolemia Hypercholesterolemia Hypertension 19 FATHER Infertile Malignant neoplasm of lung Myocardial infarction Myocardial infarction Psychotic disorder Respiratory disorder Stroke No Family History of: AIDS Abdominal aortic aneurysm Abdominal aortic aneurysm [place]'s disease Fernando's disease Alzheimer's disease Aphasia Aphasia Congenital disease Congenital heart disease Congenital heart disease Congestive heart failure Coronary thrombosis Cystic fibrosis Cystic fibrosis Deafness or hearing loss Dementia Dementia Drug abuse Dysphagia Dysphasia Family history: Alzheimer's disease Family history: Breast disease Family history: Glaucoma Family history: Osteoporosis Fibrocystic disease of breast Gastroenteritis Glaucoma Headache disorder Hereditary disease History of - disorder History of drug abuse Human immunodeficiency virus (HIV) seropositivity Infertility Kidney disease Kidney disease Neoplasm Not obtainable due to adoption Osteoporosis Parkinson's disease Parkinson's disease Prostate cancer Psychosocial problem Seizure disorder Seizure disorder Severe allergy Thyroid disease Tuberculosis Tuberculosis Visual disorder Visual impairment Cancer, COPD, Vascular Disease Physical Exam Vital Signs Vital Signs - First Documented 10/12/20 09:44 Temp 36.8 Pulse 100 Resp 22 B/P (MAP) 163/93 (116) Pulse Ox 97 O2 Delivery Room Air Capillary Refill : Less Than 3 Seconds Height, Weight, BMI Height: 5'5.00" Weight: 184lbs. 5.0oz. 83.023391nk; 36.00 BMI Method:Stated General Appearance: WD/WN, no apparent distress HEENT: normal ENT inspection Neck: normal inspection Cardiovascular: regular rate, rhythm, no edema, no murmur Respiratory: no respiratory distress, no accessory muscle use, wheezing Gastrointestinal: non tender, soft Legs: bilateral leg other (Bilateral lower extremity firm edema with increased swelling on the left. Scabbed wound on the left lateral lower leg. Warmth, erythema, and tenderness to the left lower leg) Knees: bilateral knee normal inspection Feet: left foot other (Good capillary refill) Neurologic/Tendon: normal sensation, normal motor functions, normal tendon functions Neurologic/Psychiatric: seismic engineer II-XII nml as tested, no motor/sensory deficits, alert, normal mood/affect, oriented x 3 Skin: warm/dry, other (Erythema of the left lower leg as well as chronic skin changes. Scabbed lesion on the left lateral lower leg) Progress/Results/Core Measures Results/Orders Lab Results Laboratory Tests Test 10/12/20 09:55 Range/Units White Blood Count 9.1 4.3-11.0 10^3/uL Red Blood Count 4.60 3.80-5.11 10^6/uL Hemoglobin 12.8 11.5-16.0 g/dL Hematocrit 40 35-52 % Mean Corpuscular Volume 88 80-99 fL Mean Corpuscular Hemoglobin 28 25-34 pg Mean Corpuscular Hemoglobin Concent 32 32-36 g/dL Red Cell Distribution Width 15.9 H 10.0-14.5 % Platelet Count 272 130-400 10^3/uL Mean Platelet Volume 8.8 L 9.0-12.2 fL Immature Granulocyte % (Auto) 0 % Neutrophils (%) (Auto) 75 42-75 % Lymphocytes (%) (Auto) 17 12-44 % Monocytes (%) (Auto) 6 0-12 % Eosinophils (%) (Auto) 2 0-10 % Basophils (%) (Auto) 0 0-10 % Neutrophils # (Auto) 6.8 1.8-7.8 10^3/uL Lymphocytes # (Auto) 1.5 1.0-4.0 10^3/uL Monocytes # (Auto) 0.6 0.0-1.0 10^3/uL Eosinophils # (Auto) 0.2 0.0-0.3 10^3/uL Basophils # (Auto) 0.0 0.0-0.1 10^3/uL Immature Granulocyte # (Auto) 0.0 0.0-0.1 10^3/uL Prothrombin Time 26.0 H 12.2-14.7 SEC INR Comment 2.3 H 0.8-1.4 Sodium Level 142 135-145 MMOL/L Potassium Level 3.9 3.6-5.0 MMOL/L Chloride Level 104 98-107 MMOL/L Carbon Dioxide Level 25 21-32 MMOL/L Anion Gap 13 5-14 MMOL/L Blood Urea Nitrogen 16 7-18 MG/DL Creatinine 0.73 0.60-1.30 MG/DL Estimat Glomerular Filtration Rate > 60 BUN/Creatinine Ratio 22 Glucose Level 130 H 70-105 MG/DL Calcium Level 9.1 8.5-10.1 MG/DL C-Reactive Protein High Sensitivity 0.09 0.00-0.50 MG/DL My Orders Orders - ALVA BENJAMIN MD Ed Iv/Invasive Line Start (10/12/20 09:50) Basic Metabolic Panel (10/12/20 09:50) Cbc With Automated Diff (10/12/20 09:50) Hs C Reactive Protein (10/12/20 09:50) Protime With Inr (10/12/20 09:50) Us Venous Lower Ext Lt (10/12/20 09:50) Vital Signs/I&O 10/12/20 09:44 Temp 36.8 Pulse 100 Resp 22 B/P (MAP) 163/93 (116) Pulse Ox 97 O2 Delivery Room Air Blood Pressure Mean: 116 Progress Progress Note : Progress Note INR is therapeutic today. There appears to be expansion of DVT previously noted in the left lower leg. Patient is still resistant to using newer anticoagulants that do not require close monitoring. I have advised her to have her INR checked at least weekly for the next few weeks because of her present symptoms and expansion of the DVT. We are also treating with antibiotics as there may be some minor cellulitis developing from her leg wound. She does have a history of prior cellulitis and states cefprozil works well for her and does not seem to disrupt her warfarin therapy. Diagnostic Imaging Diagonstic Imaging: Ultrasound Plain Films/CT/US/NM/MRI: leg Comments Study reviewed with the generator technician. Report reviewed. See report below: NAME: SUJEY FELIZ [facility] REC#: [id number] PT STATUS: REG ER : 1960 PHYSICIAN: ALVA BENJAMIN MD ADMIT DATE: 10/12/20/ER Draft Date of Exam:10/12/20 US VENOUS LOWER EXT LT INDICATION: Left leg pain, heat, history of deep venous thrombosis. TECHNIQUE: Multiple Real-time grayscale images were obtained over the left lower extremity in various projections, bilaterally. Additional duplex Doppler and color Doppler images were also obtained. CORRELATION STUDY: 12/30/2019. FINDINGS: There are scattered areas of clot within the left leg. Areas of clot are noted within the calf veins which extend more centrally and become occlusive at the level of the popliteal vein. More centrally, there appear to be scattered areas of partial or nonocclusive clot within the femoral vein of the thigh. The common femoral vein is unremarkable. IMPRESSION: 1. The findings are positive for multifocal areas of deep venous thrombosis of the left leg. These are most pronounced within the calf extending into the popliteal vein but also involve scattered clot within the femoral vein in the thigh. There has been some change in the distribution and extent of the clot compared to the prior study. 2. The findings were relayed by the drapery seamstress at the time of imaging. Dictated on workstation # [id number] Dict: 10/12/20 1039 Trans: 10/12/20 1054 [id number] Interpreted by: SWATHI DONNELLY DO Departure Impression Primary Impression: Left leg DVT Qualified Codes: I82.402 - Acute embolism and thrombosis of unspecified deep veins of left lower extremity Additional Impression: Cellulitis of left leg Disposition: 01 HOME, SELF-CARE Condition: Stable Departure-Patient Inst. Referrals: LEAH WOLF MD (PCP/Family) Primary Care Physician Patient Instructions: Cellulitis (Skin Infection), Adult (DC), Deep Vein Thrombosis (DVT) ED Scripts Cefprozil (Cefprozil) 500 Mg Tablet 500 MG PO BID, #14 TAB Prov: ALVA BENJAMIN MD 10/12/20 Copy Copies To 1: LEAH WOLF MD, JOSHUA T MD Oct 12, 2020 10:58
[2020-10-12] MEDS ORDERED: CEFP500T4 PO (11:06)
[2020-10-12 11:20] VITALS: BP 130/83
== END 2020-10-12 11:20 | disposition home or self-care (01) ==
LOC: EDUNIT# 09:39 → ER 09:40
DX: I82.402 Acute embolism and thrombosis of unspecified deep veins of left lower extremity (principal); J44.9 Chronic obstructive pulmonary disease, unspecified; I10 Essential (primary) hypertension; F41.9 Anxiety disorder, unspecified; K21.9 Gastro-esophageal reflux disease without esophagitis; Z88.6 Allergy status to analgesic agent; Z88.7 Allergy status to serum and vaccine; Z88.8 Allergy status to other drugs, medicaments and biological substances; Z91.040 Latex allergy status; Z91.041 Radiographic dye allergy status; Z87.891 Personal history of nicotine dependence; Z86.711 Personal history of pulmonary embolism; Z86.718 Personal history of other venous thrombosis and embolism; Z79.01 Long term (current) use of anticoagulants; Z79.52 Long term (current) use of systemic steroids
CPT/HCPCS: 36415; 80048; 85025; 85610; 86141

== ENCOUNTER 2020-10-20 10:10 | Emergency (ER) | payer MEDICAID ==
[~2020-10-20] VITALS: Ht 165.1 cm; Wt 99.8 kg
[2020-10-20 11:43] LABS: BASOPHILS % (AUTO) 0 % (0-10); EOSINOPHILS # (AUTO) 0.3 10^3/uL (0.0-0.3); EOSINOPHILS % (AUTO) 3 % (0-10); HEMATOCRIT 40 % (35-52); HEMOGLOBIN 12.5 g/dL (11.5-16.0); LYMPHOCYTES # (AUTO) 2.3 10^3/uL (1.0-4.0); LYMPHOCYTES % (AUTO) 30 % (12-44); MEAN CORPUSCULAR HEMOGLOBIN 28 pg (25-34); MEAN CORPUSCULAR HGB CONC 31 g/dL (32-36); MEAN CORPUSCULAR VOLUME 88 fL (80-99); MEAN PLATELET VOLUME 8.9 fL (9.0-12.2); MONOCYTES # (AUTO) 0.7 10^3/uL (0.0-1.0); MONOCYTES % (AUTO) 9 % (0-12); NEUTROPHILS # (AUTO) 4.5 10^3/uL (1.8-7.8); NEUTROPHILS % (AUTO) 58 % (42-75); PLATELET COUNT 306 10^3/uL (130-400); WHITE BLOOD COUNT 7.8 10^3/uL (4.3-11.0)
[2020-10-20 11:47] LABS: ALBUMIN 3.9 GM/DL (3.2-4.5)
[2020-10-20 11:48] LABS: CHLORIDE 105 MMOL/L (98-107); POTASSIUM 3.7 MMOL/L (3.6-5.0); SODIUM 143 MMOL/L (135-145)
--- NOTE | 2020-10-20 11:48 | ED General ---
General Chief Complaint: General Problems/Pain Stated Complaint: SOB,BACK PAIN,L LEG BLOOD CLOT Nursing Triage Note: pt reports being seen in ed october 12 and was diagnosed with left leg dvt. pt reports her INR is decreasing, compains of right lower lobe lung pain when she breaths, nause, and also having blood on her toilet paper after diarrhea this am. Nursing Sepsis Screen: No Definite Risk Source of Information: Patient Exam Limitations: No Limitations History of Present Illness Date Seen by Provider: Oct 20, 2020 Time Seen by Provider: 10:30 Initial Comments To ER with shortness of breath a bit worse than usual, pain to the right lateral lower chest wall. Recently diagnosed with DVT and was subtherapeutic on her INR Timing/Duration: 1-2 Days Severity: Moderate Associated Systoms: Chest Pain Allergies and Home Medications Allergies Coded Allergies: aspirin (Verified Allergy, Severe, ANAPHYLAXIS, 03/03/19) ibuprofen (Verified Allergy, Severe, ANAPHYLAXIS, 03/03/19) ketorolac (Verified Allergy, Severe, ANAPHYLAXIS, 03/03/19) tetanus and diphtheria toxoids (Unverified Allergy, Severe, ANAPHYLAXIS, 03/03/19) aloe (Verified Allergy, Mild, RASH, 03/03/19) latex (Verified Allergy, Mild, RASH, 03/03/19) OCCASIONALLY IS IRRITATING SKIN scopolamine (Verified Allergy, Mild, 03/03/19) iodine (Verified Adverse Reaction, Unknown, 03/03/19) Patient states she got dizzy, diaphoretic and saw stars. Uncoded Allergies: ALOE VERA (Allergy, Unknown, 12/23/05) SILK SUTURES (Adverse Reaction, Unknown, BODY REJECTS SUTURES, 10/07/13) Home Medications Albuterol Sulfate 8.5 Gm Hfa.aer.ad, 2 PUFF IH Q4H PRN for SHORTNESS OF BREATH, (Reported) Albuterol Sulfate 2.5 Mg/3 Ml Vial.neb, 2.5 MG NEB Q2H PRN for SHORTNESS OF BREATH, (Reported) Alprazolam 1 Mg Tablet, 1 MG PO BID PRN for ANXIETY, (Reported) Calcium Carbonate/Vitamin D3 1 Each Tablet, 1 TAB PO BID, (Reported) Cefprozil 500 Mg Tablet, 500 MG PO BID Prescribed by: KAMRAN LINDQUIST on 08/07/20 1327 Cefprozil 500 Mg Tablet, 500 MG PO BID Prescribed by: ALVA LAMAR on 10/12/20 1106 Cyclobenzaprine HCl 5 Mg Tablet, 5 MG PO Q8H PRN for MUSCLE SPASMS Prescribed by: JULIO C MERINO on 12/05/19 1429 Epinephrine 0.3 Mg/0.3 Ml Auto.injct, 0.3 MG IJ PRN, (Reported) Fluticasone Propionate 1 Ea Aero, 2 PUFF INH BID, (Reported) Furosemide 40 Mg Tablet, 40 MG PO DAILY, (Reported) Hydrocodone/Acetaminophen 1 Each Tablet, 1 TAB PO Q6- 8H PRN for PAIN-MODERATE (5-7), (Reported) Hyoscyamine Sulfate 0.125 Mg Tab.rapdis, 0.125 MG SL Q6H PRN for ABDOMINAL PAIN, (Reported) Ipratropium Vance 0.2 Mg/1 Ml Solution, 1 VIAL NEB TID, (Reported) MIXES WITH ALBUTEROL SOLUTION Loratadine 10 Mg Tablet, 10 MG PO DAILY, (Reported) Metoprolol Succinate 25 Mg Tab.er.24h, 25 MG PO DAILY Prescribed by: KAMRAN LINDQUIST on 03/31/20 1748 Montelukast Sodium 10 Mg Tablet, 10 MG PO HS, (Reported) Oxycodone HCl/Acetaminophen 1 Each Tablet, 1-2 TAB PO Q4H PRN for PAIN-MODERATE (5-7) Prescribed by: ALVA LAMAR on 12/03/192010 Pantoprazole Sodium 40 Mg Tablet.dr, 40 MG PO DAILY, (Reported) Potassium Chloride 10 Meq Tablet.er, 20 MEQ PO BID, (Reported) TAKES 2 (10MEQ) TABLETS Prednisone 20 Mg Tab, 20 MG PO UD, (Reported) ON TAPER DOSE 3 TABS X 3 DAYS, THEN 2 TABS X 3 DAYS, THEN 1 T X 3 DAYS= PT IS JUST STARTING THEN 1 TAB X 3 DAYS Promethazine HCl 25 Mg Tablet, 25 MG PO Q6H PRN for NAUSEA/VOMITING-2ND LINE, (Reported) Warfarin Sodium 4 Mg Tablet, 4 MG PO MO,,,FR,SA@1800, (Reported) Warfarin Sodium 5 Mg Tablet, 5 MG PO SAT,WED @1800, (Reported) Patient Home Medication List Home Medication List Reviewed: Yes Review of Systems Review of Systems Constitutional: see HPI EENTM: see HPI Respiratory: see HPI, short of breath Cardiovascular: see HPI, chest pain (Pleuritic right lower) 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: no symptoms reported Musculoskeletal: no symptoms reported Skin: no symptoms reported Psychiatric/Neurological: No Symptoms Reported Past Kebabfi-Tqosqy-Ptinfu Hx Patient Social History Alcohol Use: Denies Use Drug of Choice: + IV COCAINE USE Smoking Status: Former Smoker Type Used: Cigarettes Former Smoker, Quit: Nov 17, 2000 2nd Hand Smoke Exposure: No Recent Infectious Disease Expo: No Recent Hopitalizations: No (05/21/19 knee sx) Immunizations Up To Date Tetanus Booster (TDap): Unknown PED Vaccines UTD: No Date of Pneumonia Vaccine: Sep 05, 2016 Date of Influenza Vaccine: Mar 11, 2012 Seasonal Allergies Seasonal Allergies: Yes Past Medical History Surgeries: Yes (C/S X2, KNEE SCOPE, SHOULDER SCOPE, d&C, BILAT ULNAR NERVE, VENA CAVA FILTE) Abdominal, Adenoidectomy, Section, Gallbladder, Hysterectomy, Orthopedic, Tonsillectomy, Tubal Ligation, Vascular Surgery Respiratory: Yes (O2 AT HS 2-3L/NC AND PRN--NOCTURNAL HYPOXIA; ) Asthma, Pneumonia, Chronic Bronchitis, Pulmonary Embolism, COPD Currently Using CPAP: No Currently Using BIPAP: No Cardiac: Yes Chronic Edema/Swelling, Deep Vein Thrombosis, High Cholesterol, Hypertension, Peripheral Vascular Neurological: Yes Neuropathy 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 Disorders: No 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 Disorders: Denies 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, 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 Sexually Transmitted Disease: No HIV/AIDS: No 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: Yes Kidney Infection, Bladder Infection, Kidney Stones Gastrointestinal: Yes (MULTIPLE HERNIA REPAIRS; MULTIPLE EGD'S /COLO NOSCOPIES/POLYPECTOMIES) Abdominal Hernia, Gastroesophageal Reflux, Chronic Constipation, Chronic Diarrhea, Hepatitis, Polyps, Hiatal Hernia, Irritable Bowel Musculoskeletal: Yes Arthritis Endocrine: Yes ("PRE-DIABETIC" ) HEENT: Yes (NASAL POLYPS REMOVED) Cataract Loss of Vision: Denies Hearing Impairment: Denies Cancer: No Did You Recieve Any Treatments: No Psychosocial: Yes Anxiety Integumentary: Yes (CHRONIC VENOUS STASIS DERMATITIS AND ULCERS. ) Recent Skin Changes Blood Disorders: Yes (DVT'S/PE'S; PROBABLE PROTEIN C DEFICIENCY) Adverse Reaction/Blood Tranf: No (HAS HAD BLOOD WITH NO PROBLEMS) Family Medical History Alcoholism Alcoholism Arthritis Asthma 19 MOTHER Cancer G8 BROTHER G8 SISTER Cancer of colon Cancer of mouth Cardiovascular disease Cataract Cataracts Chest pain Colon cancer Completed stroke Diabetes mellitus Family history: Allergy Family history: Arthritis Family history: Asthma Family history: Cardiovascular disease Family history: Coronary thrombosis Family history: Diabetes mellitus G8 BROTHER G8 SISTER Family history: Gastrointestinal disease Family history: Hypertension Family history: Thyroid disorder Headache Hearing loss Heart disease 19 MOTHER History of - anemia History of - respiratory disease Hypercholesterolemia Hypercholesterolemia Hypertension 19 FATHER Infertile Malignant neoplasm of lung Myocardial infarction Myocardial infarction Psychotic disorder Respiratory disorder Stroke No Family History of: AIDS Abdominal aortic aneurysm Abdominal aortic aneurysm Ascension's disease Ascension's disease Alzheimer's disease Aphasia Aphasia Congenital disease Congenital heart disease Congenital heart disease Congestive heart failure Coronary thrombosis Cystic fibrosis Cystic fibrosis Deafness or hearing loss Dementia Dementia Drug abuse Dysphagia Dysphasia Family history: Alzheimer's disease Family history: Breast disease Family history: Glaucoma Family history: Osteoporosis Fibrocystic disease of breast Gastroenteritis Glaucoma Headache disorder Hereditary disease History of - disorder History of drug abuse Human immunodeficiency virus (HIV) seropositivity Infertility Kidney disease Kidney disease Neoplasm Not obtainable due to adoption Osteoporosis Parkinson's disease Parkinson's disease Prostate cancer Psychosocial problem Seizure disorder Seizure disorder Severe allergy Thyroid disease Tuberculosis Tuberculosis Visual disorder Visual impairment Cancer, COPD, Vascular Disease Physical Exam Vital Signs Vital Signs - First Documented 10/20/20 10:35 Temp 37.5 Pulse 104 Resp 16 B/P (MAP) 158/99 (118) Pulse Ox 96 Capillary Refill : Less Than 3 Seconds Height, Weight, BMI Height: 5'5.00" Weight: 184lbs. 5.0oz. 83.465439po; 36.00 BMI Method:Stated General Appearance: No Apparent Distress, WD/WN, Other (No distress she is 95% on baseline 2 L, HR 105.) Neck: Full Range of Motion, Normal Inspection Respiratory: Lungs Clear, Normal Breath Sounds, No Accessory Muscle Use, No Respiratory Distress Extremity: Normal Capillary Refill, Normal Inspection, Other (left lower extreity without erythema or obvious swelling) Neurologic/Psychiatric: Alert, Oriented x3 Skin: Normal Color, Warm/Dry Progress/Results/Core Measures Suspected Sepsis Recent Fever Within 48 Hours: No Infection Criteria Present: None New/Unexplained Altered Menta: No Sepsis Screen: No Definite Risk SIRS Temperature: Pulse: 104 Respiratory Rate: 16 Laboratory Tests 10/20/20 10:39: White Blood Count 7.8 Blood Pressure 158 /99 Mean: 118 Laboratory Tests 10/20/20 10:39: Creatinine 0.63, INR Comment 2.0H, Platelet Count 306, Total Bilirubin 0.5 Results/Orders Lab Results Laboratory Tests Test 10/20/20 10:39 Range/Units White Blood Count 7.8 4.3-11.0 10^3/uL Red Blood Count 4.55 3.80-5.11 10^6/uL Hemoglobin 12.5 11.5-16.0 g/dL Hematocrit 40 35-52 % Mean Corpuscular Volume 88 80-99 fL Mean Corpuscular Hemoglobin 28 25-34 pg Mean Corpuscular Hemoglobin Concent 31 L 32-36 g/dL Red Cell Distribution Width 16.1 H 10.0-14.5 % Platelet Count 306 130-400 10^3/uL Mean Platelet Volume 8.9 L 9.0-12.2 fL Immature Granulocyte % (Auto) 0 % Neutrophils (%) (Auto) 58 42-75 % Lymphocytes (%) (Auto) 30 12-44 % Monocytes (%) (Auto) 9 0-12 % Eosinophils (%) (Auto) 3 0-10 % Basophils (%) (Auto) 0 0-10 % Neutrophils # (Auto) 4.5 1.8-7.8 10^3/uL Lymphocytes # (Auto) 2.3 1.0-4.0 10^3/uL Monocytes # (Auto) 0.7 0.0-1.0 10^3/uL Eosinophils # (Auto) 0.3 0.0-0.3 10^3/uL Basophils # (Auto) 0.0 0.0-0.1 10^3/uL Immature Granulocyte # (Auto) 0.0 0.0-0.1 10^3/uL Prothrombin Time 23.0 H 12.2-14.7 SEC INR Comment 2.0 H 0.8-1.4 Sodium Level 143 135-145 MMOL/L Potassium Level 3.7 3.6-5.0 MMOL/L Chloride Level 105 98-107 MMOL/L Carbon Dioxide Level 27 21-32 MMOL/L Anion Gap 11 5-14 MMOL/L Blood Urea Nitrogen 9 7-18 MG/DL Creatinine 0.63 0.60-1.30 MG/DL Estimat Glomerular Filtration Rate > 60 BUN/Creatinine Ratio 14 Glucose Level 99 70-105 MG/DL Calcium Level 9.4 8.5-10.1 MG/DL Corrected Calcium 9.5 8.5-10.1 MG/DL Total Bilirubin 0.5 0.1-1.0 MG/DL Aspartate Amino Transf (AST/SGOT) 15 5-34 U/L Alanine Aminotransferase (ALT/SGPT) 21 0-55 U/L Alkaline Phosphatase 62 40-136 U/L Total Protein 7.5 6.4-8.2 GM/DL Albumin 3.9 3.2-4.5 GM/DL My Orders Orders - KAMRAN LINDQUIST [employer]ISHER Cbc With Automated Diff (10/20/20 11:37) Comprehensive Metabolic Panel (10/20/20 11:37) Protime With Inr (10/20/20 11:37) Ct Angio Chest W (10/20/20 11:42) Iohexol Injection (Omnipaque 350 Mg/Ml 1 (10/20/20 12:30) Received Contrast (Hold Metformin- Contr (10/20/20 12:30) Ns (Ivpb) (Sodium Chloride 0.9% Ivpb Bag (10/20/20 12:30) Vital Signs/I&O 10/20/20 10:35 Temp 37.5 Pulse 104 Resp 16 B/P (MAP) 158/99 (118) Pulse Ox 96 Capillary Refill : Less Than 3 Seconds Blood Pressure Mean: 118 Departure Communication (Admissions) 1252-discussed with her getting a CT angio chest to evaluate for pulmonary embolism given her recent subtherapeutic INR. However today she has a 2 on the INR, it will not change management coordinator if she does have a small PE. Is not hemody namically significant. She rather not do the CT because she is worried about contrast. Impression Primary Impression: Pleuritic chest pain Disposition: HOME, SELF-CARE Condition: Stable Departure-Patient Inst. Decision time for Depature: 12:52 Referrals: LEAH WOLF MD (PCP/Family) Primary Care Physician Patient Instructions: Pleuritic Chest Pain (DC) Add. Discharge Instructions: 1. Pain medication as directed 2. Follow-up with your doctor next week All discharge instructions reviewed with patient and/or family. Voiced understanding. Scripts Hydrocodone/Acetaminophen (Hydrocodone-Acetamin 5-325 mg) 1 Each Tablet 1 TAB PO Q4H PRN for PAIN-MODERATE (5-7), #10 TAB Prov: KAMRAN LINDQUIST APRN 10/20/20 KAMRAN LINDQUIST APRN Oct 20, 2020 11:48
[2020-10-20 11:49] LABS: CALCIUM 9.4 MG/DL (8.5-10.1)
[2020-10-20 11:50] LABS: GLUCOSE 99 MG/DL (70-105); TOTAL PROTEIN 7.5 GM/DL (6.4-8.2)
[2020-10-20 11:51] LABS: CARBON DIOXIDE 27 MMOL/L (21-32)
[2020-10-20 11:52] LABS: BILIRUBIN,TOTAL 0.5 MG/DL (0.1-1.0)
[2020-10-20 11:53] LABS: ALKALINE PHOSPHATASE 62 U/L (40-136); CREATININE SERUM 0.63 MG/DL (0.60-1.30); GFR ESTIMATED > 60
[2020-10-20 11:55] LABS: BUN/CREATININE RATIO 14
[2020-10-20 11:56] LABS: ALANINE AMINOTRANSFERASE 21 U/L (0-55)
[2020-10-20] MEDS ORDERED: HOLD METFORMIN - RECEIVED CONTRAST 20 ML VIAL IV SCH (12:30)
[2020-10-20] MEDS ORDERED: NS 100 ML (IVPB) BAG IV ONE (12:30)
[2020-10-20] MEDS ORDERED: IOHEXOL 350 MG/ML 100 ML (OMNIPAQUE 350) VIAL IV ONE (12:30)
--- NOTE | 2020-10-20 12:34 | Diagnostic Imaging Report ---
Portable erect AP chest at 1144 hours. INDICATION: Shortness of breath. FINDINGS: The heart size is within normal limits and stable when compared to 08/07/2020. The chronic pulmonary changes involving both lungs including hyperinflation of lungs and coarse bronchovascular markings in both lower lobes seen previously are again evident and no different. There is still no sign of failure, pneumonia or pleural effusion to indicate an acute abnormality. The mediastinum is not widened. The osseous structures are intact. IMPRESSION: Stable chest. There has been no significant change since the prior exam. Dictated by: Dictated on workstation # [id number]
[2020-10-20] MEDS ORDERED: ACHD5005 PO (12:53)
[2020-10-20 13:20] VITALS: BP 124/80
== END 2020-10-20 13:18 | disposition home or self-care (01) ==
LOC: EDUNIT# 10:10 → ER 10:11
DX: R07.1 Chest pain on breathing (principal); I10 Essential (primary) hypertension; J44.9 Chronic obstructive pulmonary disease, unspecified; F41.9 Anxiety disorder, unspecified; K21.9 Gastro-esophageal reflux disease without esophagitis; K58.9 Irritable bowel syndrome, unspecified; Z99.81 Dependence on supplemental oxygen; Z87.891 Personal history of nicotine dependence; Z79.51 Long term (current) use of inhaled steroids; Z79.52 Long term (current) use of systemic steroids; Z79.899 Other long term (current) drug therapy
CPT/HCPCS: 36415; 71045; 80053; 85025; 85610; 99281

== ENCOUNTER 2020-11-13 09:19 | Emergency (ER) | payer MEDICAID ==
[~2020-11-13] VITALS: Ht 165 cm; Wt 99.7 kg
[~2020-11-13 09:19] MED LIST changes: +DOXY-311 PO; -DOXY100C42 PO
[2020-11-13 09:29] VITALS: BP 140/86
--- NOTE | 2020-11-13 10:00 | ED Integumentary General ---
General Chief Complaint: Skin/Wound Problems Stated Complaint: L LEG WOUND Nursing Triage Note: PT HERE FOR CONCERNS OF L CALF ULCER WITH DRAINAGE STARTING 3 WEEKS AGO. PT REPORTS SHE DID SEE HER DR FOR THIS AND WAS PRESCRIBED KEFLEX BUT HAS NOT SEEN IMPROVEMENT Source: patient Exam Limitations: no limitations History of Present Illness Date Seen by Provider: Nov 13, 2020 Time Seen by Provider: 09:40 Initial Comments This 60-year-old woman presents to the emergency room with concerns about a weeping ulcer on her left lower leg. She periodically gets a small sores that generally heal up well after a period of time. However, the sore does not appear to be healing. It weeps clear fluid continuously. She saw her primary care provider last week and was placed on Bactroban ointment and Cipro. She has no increase in pain, erythema, fever, abscess formation, or other complications. She does have venous stasis and chronic edema from prior DVT. Allergies and Home Medications Allergies Coded Allergies: aspirin (Verified Allergy, Severe, ANAPHYLAXIS, 03/03/19) ibuprofen (Verified Allergy, Severe, ANAPHYLAXIS, 03/03/19) ketorolac (Verified Allergy, Severe, ANAPHYLAXIS, 03/03/19) tetanus and diphtheria toxoids (Unverified Allergy, Severe, ANAPHYLAXIS, 1 ) aloe (Verified Allergy, Mild, RASH, 03/03/19) latex (Verified Allergy, Mild, RASH, 03/03/19) OCCASIONALLY IS IRRITATING SKIN scopolamine (Verified Allergy, Mild, 03/03/19) iodine (Verified Adverse Reaction, Unknown, 03/03/19) Patient states she got dizzy, diaphoretic and saw stars. Uncoded Allergies: ALOE VERA (Allergy, Unknown, 12/23/05) SILK SUTURES (Adverse Reaction, Unknown, BODY REJECTS SUTURES, 10/07/13) Home Medications Albuterol Sulfate 8.5 Gm Hfa.aer.ad, 2 PUFF IH Q4H PRN for SHORTNESS OF BREATH, (Reported) Albuterol Sulfate 2.5 Mg/3 Ml Vial.neb, 2.5 MG NEB Q2H PRN for SHORTNESS OF BREATH, (Reported) Alprazolam 1 Mg Tablet, 1 MG PO BID PRN for ANXIETY, (Reported) Calcium Carbonate/Vitamin D3 1 Each Tablet, 1 TAB PO BID, (Reported) Cefprozil 500 Mg Tablet, 500 MG PO BID Prescribed by: KAMRAN LINDQUIST on 08/07/20 1327 Cefprozil 500 Mg Tablet, 500 MG PO BID Prescribed by: ALVA LAMAR on 10/12/20 1106 Cyclobenzaprine HCl 5 Mg Tablet, 5 MG PO Q8H PRN for MUSCLE SPASMS Prescribed by: JULIO C MERINO on 12/05/19 1429 Epinephrine 0.3 Mg/0.3 Ml Auto.injct, 0.3 MG IJ PRN, (Reported) Fluticasone Propionate 1 Ea Aero, 2 PUFF INH BID, (Reported) Furosemide 40 Mg Tablet, 40 MG PO DAILY, (Reported) Hydrocodone/Acetaminophen 1 Each Tablet, 1 TAB PO Q6- 8H PRN for PAIN-MODERATE (5-7), (Reported) Hydrocodone/Acetaminophen 1 Each Tablet, 1 TAB PO Q4H PRN for PAIN-MODERATE (5- 7) Prescribed by: KAMRAN LINDQUIST on 10/20/20 1254 Hyoscyamine Sulfate 0.125 Mg Tab.rapdis, 0.125 MG SL Q6H PRN for ABDOMINAL PAIN, (Reported) Ipratropium Draper 0.2 Mg/1 Ml Solution, 1 VIAL NEB TID, (Reported) MIXES WITH ALBUTEROL SOLUTION Loratadine 10 Mg Tablet, 10 MG PO DAILY, (Reported) Metoprolol Succinate 25 Mg Tab.er.24h, 25 MG PO DAILY Prescribed by: KAMRAN LINDQUIST on 03/31/20 1748 Montelukast Sodium 10 Mg Tablet, 10 MG PO HS, (Reported) Oxycodone HCl/Acetaminophen 1 Each Tablet, 1-2 TAB PO Q4H PRN for PAIN-MODERATE (5-7) Prescribed by: ALVA LAMAR on 12/03/192010 Pantoprazole Sodium 40 Mg Tablet.dr, 40 MG PO DAILY, (Reported) Potassium Chloride 10 Meq Tablet.er, 20 MEQ PO BID, (Reported) TAKES 2 (10MEQ) TABLETS Prednisone 20 Mg Tab, 20 MG PO UD, (Reported) ON TAPER DOSE 3 TABS X 3 DAYS, THEN 2 TABS X 3 DAYS, THEN 1 T X 3 DAYS= PT IS JUST STARTING THEN 1 TAB X 3 DAYS Promethazine HCl 25 Mg Tablet, 25 MG PO Q6H PRN for NAUSEA/VOMITING-2ND LINE, (Reported) Warfarin Sodium 4 Mg Tablet, 4 MG PO MO,,,FR,SA@1800, (Reported) Warfarin Sodium 5 Mg Tablet, 5 MG PO SAT,SAT @1800, (Reported) Patient Home Medication List Home Medication List Reviewed: Yes Review of Systems Review of Systems Constitutional: no symptoms reported EENTM: no symptoms reported Respiratory: no symptoms reported Cardiovascular: see HPI Musculoskeletal: no symptoms reported Skin: see HPI Past Jgnohjr-Nwubmw-Upqggd Hx Patient Social History Tobacco Use?: No Smoking Status: Former Smoker Substance use?: No Alcohol Use?: No Pt feels they are or have been: No Immunizations Up To Date Tetanus Booster (TDap): Unknown PED Vaccines UTD: No Seasonal Allergies Seasonal Allergies: Yes Past Medical History Surgeries: Yes (C/S X2, KNEE SCOPE, SHOULDER SCOPE, d&C, BILAT ULNAR NERVE, VENA CAVA FILTE) Abdominal, Adenoidectomy, Section, Gallbladder, Hysterectomy, Orthopedic, Tonsillectomy, Tubal Ligation, Vascular Surgery Respiratory: Yes (O2 AT HS 2-3L/NC AND PRN--NOCTURNAL HYPOXIA; ) Asthma, Pneumonia, Chronic Bronchitis, Pulmonary Embolism, COPD Currently Using CPAP: No Currently Using BIPAP: No Cardiac: Yes Chronic Edema/Swelling, Deep Vein Thrombosis, High Cholesterol, Hypertension, Peripheral Vascular Neurological: Yes Neuropathy 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 Disorders: No 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 Disorders: 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, 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 Sexually Transmitted Disease: No HIV/AIDS: No 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: Yes Kidney Infection, Bladder Infection, Kidney Stones Gastrointestinal: Yes (MULTIPLE HERNIA REPAIRS; MULTIPLE EGD'S /COL ONOSCOPIES/POLYPECTOMIES) Abdominal Hernia, Gastroesophageal Reflux, Chronic Constipation, Chronic Diarrhea, Hepatitis, Polyps, Hiatal Hernia, Irritable Bowel Musculoskeletal: Yes Arthritis Endocrine: Yes ("PRE-DIABETIC" ) HEENT: Yes (NASAL POLYPS REMOVED) Cataract Loss of Vision: Denies Hearing Impairment: Denies Cancer: No Did You Recieve Any Treatments: No Psychosocial: Yes Anxiety Integumentary: Yes (CHRONIC VENOUS STASIS DERMATITIS AND ULCERS. ) Recent Skin Changes Blood Disorders: Yes (DVT'S/PE'S; PROBABLE PROTEIN C DEFICIENCY) Adverse Reaction/Blood Tranf: No (HAS HAD BLOOD WITH NO PROBLEMS) Family Medical History Alcoholism Alcoholism Arthritis Asthma 19 MOTHER Cancer G8 BROTHER G8 SISTER Cancer of colon Cancer of mouth Cardiovascular disease Cataract Cataracts Chest pain Colon cancer Completed stroke Diabetes mellitus Family history: Allergy Family history: Arthritis Family history: Asthma Family history: Cardiovascular disease Family history: Coronary thrombosis Family history: Diabetes mellitus G8 BROTHER G8 SISTER Family history: Gastrointestinal disease Family history: Hypertension Family history: Thyroid disorder Headache Hearing loss Heart disease 19 MOTHER History of - anemia History of - respiratory disease Hypercholesterolemia Hypercholesterolemia Hypertension 19 FATHER Infertile Malignant neoplasm of lung Myocardial infarction Myocardial infarction Psychotic disorder Respiratory disorder Stroke No Family History of: AIDS Abdominal aortic aneurysm Abdominal aortic aneurysm [place]'s disease [place]'s disease Alzheimer's disease Aphasia Aphasia Congenital disease Congenital heart disease Congenital heart disease Congestive heart failure Coronary thrombosis Cystic fibrosis Cystic fibrosis Deafness or hearing loss Dementia Dementia Drug abuse Dysphagia Dysphasia Family history: Alzheimer's disease Family history: Breast disease Family history: Glaucoma Family history: Osteoporosis Fibrocystic disease of breast Gastroenteritis Glaucoma Headache disorder Hereditary disease History of - disorder History of drug abuse Human immunodeficiency virus (HIV) seropositivity Infertility Kidney disease Kidney disease Neoplasm Not obtainable due to adoption Osteoporosis Parkinson's disease Parkinson's disease Prostate cancer Psychosocial problem Seizure disorder Seizure disorder Severe allergy Thyroid disease Tuberculosis Tuberculosis Visual disorder Visual impairment Cancer, COPD, Vascular Disease Physical Exam Vital Signs Vital Signs - First Documented 11/13/20 09:29 Temp 36.1 Pulse 105 Resp 18 B/P (MAP) 140/86 (104) Pulse Ox 94 Capillary Refill : Less Than 3 Seconds General Appearance: WD/WN, no apparent distress Respiratory: no respiratory distress Neurologic/Psychiatric: no motor/sensory deficits, alert, normal mood/affect, oriented x 3 Skin: other (Ulceration greater than 1 cm in diameter deep into the skin tissue on the medial left lower leg. No inflammatory changes. Weeping clear fluid.) Progress/Results/Core Measures Results/Orders Vital Signs/I&O 11/13/20 09:29 Temp 36.1 Pulse 105 Resp 18 B/P (MAP) 140/86 (104) Pulse Ox 94 Blood Pressure Mean: 104 Progress Progress Note : Progress Note Patient was given reassurance she does not need to change any of her treatment strategy at this time. She was advised to seek wound care services next week for nonhealing venous stasis ulcer. Gauze padding was applied over the ulcer. Departure Impression Primary Impression: Venous stasis ulcer Qualified Codes: I83.022 - Varicose veins of left lower extremity with ulcer of calf; L97.221 - Non-pressure chronic ulcer of left calf limited to breakdown of skin Disposition: HOME, SELF-CARE Condition: Stable Departure-Patient Inst. Decision time for Depature: 09:58 Referrals: LEAH WOLF MD (PCP/Family) Primary Care Physician Add. Discharge Instructions: Keep your wound covered when you are active or in dirty environments. You may leave open to air when at rest and clean environments. Contact your primary care provider on Saturday to discuss options for wound care. In the meantime, complete the medication provided. Call with questions or concerns. Return to care if you have worsening symptoms including development of redness, heat, fever, or puslike drainage. All discharge instructions reviewed with patient and/or family. Voiced understanding. Copy Copies To 1: LEAH WOLF MD, JOSHUA T MD Nov 13, 2020 10:00
== END 2020-11-13 10:03 | disposition home or self-care (01) ==
LOC: EDUNIT# 09:19 → ER 09:21
DX: I83.028 Varicose veins of left lower extremity with ulcer other part of lower leg (principal); L97.821 Non-pressure chronic ulcer of other part of left lower leg limited to breakdown of skin; J44.9 Chronic obstructive pulmonary disease, unspecified; I10 Essential (primary) hypertension; K21.9 Gastro-esophageal reflux disease without esophagitis; F41.9 Anxiety disorder, unspecified; Z87.891 Personal history of nicotine dependence; Z86.718 Personal history of other venous thrombosis and embolism; Z86.711 Personal history of pulmonary embolism; Z79.01 Long term (current) use of anticoagulants; Z79.52 Long term (current) use of systemic steroids; Z79.899 Other long term (current) drug therapy

== ENCOUNTER 2020-11-22 21:52 | Emergency (ER) | payer MEDICAID ==
[~2020-11-22] VITALS: Ht 165 cm; Wt 99.3 kg
[2020-11-22] MEDS ORDERED: CEPHALEXIN 250 MG (KEFLEX) CAP PO SCH (22:45)
[2020-11-22] MEDS ORDERED: CEPH500T PO (22:47)
--- NOTE | 2020-11-22 22:47 | ED Lower Extremity ---
General Chief Complaint: Lower Extremity Stated Complaint: BUMP ON L LEG, L LEG SWOLLEN Nursing Triage Note: PT PRESENTS TO THE ED C/O A POORLY HEALING WOUND TO THE LEFT CALF. PT STATES THE AREA OF CONCERN HAS BEEN PRESENT FOR OVER A MONTH. PT WAS SEEN AND PUT ON A ROUND OF ABX BY HER PCP. AREA HAS BECOME NOTICEABLY SWOLLEN WHEN COMPARED TO THE R LEG. PT DENIES SOB, AREA DOES NOT FEEL COOLER TO THE TOUCH PER PT. AREA NOTED TO FEEL WARMER THAN SURROUNDING TISSUE ON EXAM. Source: patient History of Present Illness Date Seen by Provider: Nov 22, 2020 Time Seen by Provider: 22:30 Initial Comments PT ARRIVES VIA POV FROM HOME PT WITH LONGSTANDING HISTORY OF CHRONIC LEG EDEMA, AND FREQUENTLY HAS VENOUS STASIS ULCERS STATES SHE HAS HAD AN ULCER TO LEFT LOWER LEG/ MEDIAL ASPECT FOR OVER A MONTH STATES THE AREA DRAINS CLEAR FLUID ALL THE TIME STATES SHE HAS SEEN DR. WOLF 2-3 TIMES FOR THIS, AND ON 11/07/20 SHE WAS PRESCRIBED CEPHALEXIN 500 MG TID--FINISHED A FEW DAYS AGO. 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 NO CHEST PAIN NO SHORTNESS OF BREATH NO FEVER PT WAS SEEN HERE 11/13/20 FOR THIS SAME PROBLEM. NO CHANGE IN TREATMENT PCP: [facility] Allergies and Home Medications Allergies Coded Allergies: aspirin (Verified Allergy, Severe, ANAPHYLAXIS, 03/03/19) ibuprofen (Verified Allergy, Severe, ANAPHYLAXIS, 03/03/19) ketorolac (Verified Allergy, Severe, ANAPHYLAXIS, 03/03/19) tetanus and diphtheria toxoids (Unverified Allergy, Severe, ANAPHYLAXIS, 03/03/19) aloe (Verified Allergy, Mild, RASH, 03/03/19) latex (Verified Allergy, Mild, RASH, 03/03/19) OCCASIONALLY IS IRRITATING SKIN scopolamine (Verified Allergy, Mild, 03/03/19) iodine (Verified Adverse Reaction, Unknown, 03/03/19) Patient states she got dizzy, diaphoretic and saw stars. Uncoded Allergies: ALOE VERA (Allergy, Unknown, 12/23/05) SILK SUTURES (Adverse Reaction, Unknown, BODY REJECTS SUTURES, 10/07/13) Home Medications Albuterol Sulfate 8.5 Gm Hfa.aer.ad, 2 PUFF IH Q4H PRN for SHORTNESS OF BREATH, (Reported) Albuterol Sulfate 2.5 Mg/3 Ml Vial.neb, 2.5 MG NEB Q2H PRN for SHORTNESS OF BREATH, (Reported) Alprazolam 1 Mg Tablet, 1 MG PO BID PRN for ANXIETY, (Reported) Calcium Carbonate/Vitamin D3 1 Each Tablet, 1 TAB PO BID, (Reported) Cefprozil 500 Mg Tablet, 500 MG PO BID Prescribed by: KAMRAN LINDQUIST on 08/07/20 1327 Cefprozil 500 Mg Tablet, 500 MG PO BID Prescribed by: ALVA LAMAR on 10/12/20 1106 Cephalexin 500 Mg Tablet, 500 MG PO QID Prescribed by: STEPHANIE ECKERT on 11/22/20 2247 Cyclobenzaprine HCl 5 Mg Tablet, 5 MG PO Q8H PRN for MUSCLE SPASMS Prescribed by: JULIO C MERINO on 12/05/19 1429 Epinephrine 0.3 Mg/0.3 Ml Auto.injct, 0.3 MG IJ PRN, (Reported) Fluticasone Propionate 1 Ea Aero, 2 PUFF INH BID, (Reported) Furosemide 40 Mg Tablet, 40 MG PO DAILY, (Reported) Hydrocodone/Acetaminophen 1 Each Tablet, 1 TAB PO Q6- 8H PRN for PAIN-MODERATE (5-7), (Reported) Hydrocodone/Acetaminophen 1 Each Tablet, 1 TAB PO Q4H PRN for PAIN-MODERATE (5- 7) Prescribed by: KAMRAN LINDQUIST on 10/20/20 1254 Hyoscyamine Sulfate 0.125 Mg Tab.rapdis, 0.125 MG SL Q6H PRN for ABDOMINAL PAIN, (Reported) Ipratropium [place] 0.2 Mg/1 Ml Solution, 1 VIAL NEB TID, (Reported) MIXES WITH ALBUTEROL SOLUTION Loratadine 10 Mg Tablet, 10 MG PO DAILY, (Reported) Metoprolol Succinate 25 Mg Tab.er.24h, 25 MG PO DAILY Prescribed by: KAMRAN LINDQUIST on 03/31/201747 Montelukast Sodium 10 Mg Tablet, 10 MG PO HS, (Reported) Oxycodone HCl/Acetaminophen 1 Each Tablet, 1-2 TAB PO Q4H PRN for PAIN-MODERATE (5-7) Prescribed by: ALVA LAMAR on 12/03/192010 Pantoprazole Sodium 40 Mg Tablet.dr, 40 MG PO DAILY, (Reported) Potassium Chloride 10 Meq Tablet.er, 20 MEQ PO BID, (Reported) TAKES 2 (10MEQ) TABLETS Prednisone 20 Mg Tab, 20 MG PO UD, (Reported) ON TAPER DOSE 3 TABS X 3 DAYS, THEN 2 TABS X 3 DAYS, THEN 1 T X 3 DAYS= PT IS JUST STARTING THEN 1 TAB X 3 DAYS Promethazine HCl 25 Mg Tablet, 25 MG PO Q6H PRN for NAUSEA/VOMITING-2ND LINE, (Reported) Warfarin Sodium 4 Mg Tablet, 4 MG PO MO,,,FR,SA@1800, (Reported) Warfarin Sodium 5 Mg Tablet, 5 MG PO SAT,SAT @1800, (Reported) Patient Home Medication List Home Medication List Reviewed: Yes Review of Systems Constitutional: no symptoms reported Respiratory: no symptoms reported Cardiovascular: see HPI, edema Musculoskeletal: see HPI Skin: see HPI Psychiatric/Neurological: No Symptoms Reported Past Ojwbaqi-Vegfik-Mlqydl Hx Patient Social History Tobacco Use?: Yes (SMOKED 1 PPD, QUIT 2000) Smoking Status: Former Smoker 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) Alcohol Use?: Yes (HX OF ABUSE/HEAVY USE, NOW RARELY USES) Immunizations Up To Date Tetanus Booster (TDap): Unknown PED Vaccines UTD: No Influenza Vaccine Up-to-Date: Yes; Up-to-Date Seasonal Allergies Seasonal Allergies: Yes Past Medical History Surgeries: Yes (C/S X2, KNEE SCOPE, SHOULDER SCOPE, d&C, BILAT ULNAR NERVE, VENA CAVA FILTE) Abdominal, Adenoidectomy, Section, Gallbladder, Hysterectomy, Orthopedic, Tonsillectomy, Tubal Ligation, Vascular Surgery Respiratory: Yes (O2 AT HS 2-3L/NC AND PRN--NOCTURNAL HYPOXIA; ) Asthma, Pneumonia, Chronic Bronchitis, Pulmonary Embolism, COPD Currently Using CPAP: No Currently Using BIPAP: No Cardiac: Yes (MULTIPLE DVT'S AND P.E.'S ) Chronic Edema/Swelling, Deep Vein Thrombosis, High Cholesterol, Hypertension, Peripheral Vascular Neurological: Yes Neuropathy 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, 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 Sexually Transmitted Disease: No HIV/AIDS: No 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: Yes Kidney Infection, Bladder Infection, Kidney Stones Gastrointestinal: Yes (MULTIPLE HERNIA REPAIRS; MULTIPLE EGD'S /COLONOSCOPIES/POLYPECTOMIES) Abdominal Hernia, Gastroesophageal Reflux, Chronic Constipation, Chronic Diarrhea, Hepatitis, Polyps, Hiatal Hernia, Irritable Bowel Musculoskeletal: Yes (MULTIPLE ORTHO SURGERIES) Arthritis Endocrine: Yes ("PRE-DIABETIC" ) HEENT: Yes (NASAL POLYPS REMOVED) Cataract Loss of Vision: Denies Hearing Impairment: Denies Cancer: No Did You Recieve Any Treatments: No Psychosocial: Yes Anxiety Integumentary: Yes (CHRONIC VENOUS STASIS DERMATITIS AND ULCERS. CELLULTITIS OF LEGS;TATTOOS ) Blood Disorders: Yes (DVT'S/PE'S; PROBABLE PROTEIN C DEFICIENCY) Adverse Reaction/Blood Tranf: No (HAS HAD BLOOD WITH NO PROBLEMS) Family Medical History Alcoholism Alcoholism Arthritis Asthma 19 MOTHER Cancer G8 BROTHER G8 SISTER Cancer of colon Cancer of mouth Cardiovascular disease Cataract Cataracts Chest pain Colon cancer Completed stroke Diabetes mellitus Family history: Allergy Family history: Arthritis Family history: Asthma Family history: Cardiovascular disease Family history: Coronary thrombosis Family history: Diabetes mellitus G8 BROTHER G8 SISTER Family history: Gastrointestinal disease Family history: Hypertension Family history: Thyroid disorder Headache Hearing loss Heart disease 19 MOTHER History of - anemia History of - respiratory disease Hypercholesterolemia Hypercholesterolemia Hypertension 19 FATHER Infertile Malignant neoplasm of lung Myocardial infarction Myocardial infarction Psychotic disorder Respiratory disorder Stroke No Family History of: AIDS Abdominal aortic aneurysm Abdominal aortic aneurysm [place]'s disease Fernando's disease Alzheimer's disease Aphasia Aphasia Congenital disease Congenital heart disease Congenital heart disease Congestive heart failure Coronary thrombosis Cystic fibrosis Cystic fibrosis Deafness or hearing loss Dementia Dementia Drug abuse Dysphagia Dysphasia Family history: Alzheimer's disease Family history: Breast disease Family history: Glaucoma Family history: Osteoporosis Fibrocystic disease of breast Gastroenteritis Glaucoma Headache disorder Hereditary disease History of - disorder History of drug abuse Human immunodeficiency virus (HIV) seropositivity Infertility Kidney disease Kidney disease Neoplasm Not obtainable due to adoption Osteoporosis Parkinson's disease Parkinson's disease Prostate cancer Psychosocial problem Seizure disorder Seizure disorder Severe allergy Thyroid disease Tuberculosis Tuberculosis Visual disorder Visual impairment Cancer, COPD, Vascular Disease SOCIAL HISTORY: -ETOH--RARE USE NOW, HISTORY OF HEAVY USE/ABUSE -DRUGS-HX OF IV COCAINE USE -SMOKED 1 PPD, QUIT 2000 PAST SURGICAL HISTORY: -C-SECTIONS 1981, 1985 -SHOULDER SURGERY 2007 -LEFT KNEE SURGERY 2008 -D&C 2008 -HYSTERECTOMY/BILATERAL SALPINGO-OOPHORECTOMY 2008 -VENA CAVA FILTER 2009 -EGD 2010 -VEIN STRIPPING IN LEGS 2012 -BILATERAL ELBOW/ULNAR NERVE SURGERY 2012 -MULTIPLE HERNIA REPAIRS -MULTIPLE EGD'S AND COLONOSCOPIES AND POLYPECTOMIES -TONSILLECTOMY/ADENOIDECTOMY -CHOLECYSTECTOMY -NASAL POLYPS REMOVED -BILATERAL LEG RADIOABLATION 06/2018 ADDITIONAL PAST MEDICAL HISTORY: -MULTIPLE DVT'S AND P.E.'S -CHRONIC VENOUS STASIS ULCERATIONS -LEG CELLULITIS Physical Exam Vital Signs Vital Signs - First Documented 11/22/20 22:05 Temp 35.9 Pulse 108 Resp 18 B/P (MAP) 133/85 (101) Pulse Ox 96 O2 Delivery Room Air Capillary Refill : Less Than 3 Seconds Height, Weight, BMI Height: 5'5.00" Weight: 184lbs. 5.0oz. 83.533864an; 36.00 BMI Method:Stated General Appearance: WD/WN, no apparent distress Legs: bilateral leg other (BILATERAL LOWER LEGS WITH EXTENSIVE CHRONIC VENOUS STASIS CHANGES. MEDIAL ASPECT OF LEFT LOWER LEG WITH APPROXIMATELY 1 X 1 1/2 CM SHALLOW ULCERATION WITH CONTINUOUS SEEPING OF CLEAR PALE SEROUS DRAINAGE. NO SIGNIFICANT TENDERNESS TO AREA. NO FLUCTUANCE. NO STREAKS. LEFT POSTERIOR CALF WITH PINPOINT SUPERFICIAL PUSTULE. BOTH LEGS WITH EDEMA, BUT LEFT LOWER LEG APPEARS MORE SWOLLEN THAN RIGHT--DIFFICULT TO DETERMINE DEGREE OF SWELLING DUE TO BODY HABITUS, NO CALF TENDERNESS. NEGATIVE VALERIO'S. QUESTION FAINT UNDERLYING ERYTHEMA TO LEFT LOWER LEG. NO SIGNIFICANT WARMTH COMPARED TO RIGHT LEG ) Feet: bilateral foot normal inspection Neurologic/Tendon: normal sensation, normal motor functions, normal tendon functions Neurologic/Psychiatric: no motor/sensory deficits, alert, normal mood/affect Skin: warm/dry, tattoos/piercings (MULTIPLE TATTOOS), other ( ABOVE) Progress/Results/Core Measures Results/Orders My Orders Orders - STEPHANIE ECKERT DO Wound Culture (11/22/20 22:42) Cephalexin Capsule (Keflex Capsule) (11/22/20 22:45) Vital Signs/I&O 11/22/20 11/22/20 22:05 22:55 Temp 35.9 35.9 Pulse 108 108 Resp 18 18 B/P (MAP) 133/85 (101) 133/85 (101) Pulse Ox 96 96 O2 Delivery Room Air Blood Pressure Mean: 101 Progress Progress Note : Progress Note CULTURES OBTAINED FROM DRAINAGE, AND PUSTULE DE-ROOFED AND CULTURE OBTAINED FROM THIS SITE WELL WILL RE-START KEFLEX, PENDING CULTURE RESULTS, PT REPORTS THAT SYMPTOMS IMPROVED WHEN SHE WAS ON IT Departure Impression Primary Impression: Chronic ulcer of left leg Additional Impressions: POSSIBLE CELLULITIS LEFT LOWER LE CHRONIC VENOUS STAIS ULCERS AND DERMATITIS CHRONIC LEG EDEMA Disposition: 01 HOME, SELF-CARE Condition: Stable Departure-Patient Inst. Referrals: LEAH WOLF MD (PCP/Family) Primary Care Physician Patient Instructions: Cellulitis (Skin Infection), Adult (DC), Wound Care (DC) Add. Discharge Instructions: CLEAN TWICE A DAY WITH ANTIBACTERIAL SOAP AND WATER APPLY PRESCRIPTION ANTIBIOTIC OINTMENT AND FRESH DRESSING TWICE A DAY ELEVATE LEG MUCH POSSIBLE FOLLOW UP WITH DR. WOLF THIS WEEK FOR FURTHER CARE All discharge instructions reviewed with patient and/or family. Voiced understanding. Scripts Cephalexin (Cephalexin) 500 Mg Tablet 500 MG PO QID, #40 TAB Prov: STEPHANIE ECKERT DO 11/22/20 STEPHANIE ECKERT DO Nov 22, 2020 22:47
[2020-11-22 22:55] VITALS: BP 133/85
== END 2020-11-22 22:55 | disposition home or self-care (01) ==
LOC: EDUNIT# 21:52 → ER 21:55
DX: I87.2 Venous insufficiency (chronic) (peripheral) (principal); L97.819 Non-pressure chronic ulcer of other part of right lower leg with unspecified severity; L97.829 Non-pressure chronic ulcer of other part of left lower leg with unspecified severity; I10 Essential (primary) hypertension; J44.9 Chronic obstructive pulmonary disease, unspecified; K21.9 Gastro-esophageal reflux disease without esophagitis; K58.9 Irritable bowel syndrome, unspecified; F41.9 Anxiety disorder, unspecified; H26.9 Unspecified cataract; Z99.81 Dependence on supplemental oxygen; Z86.718 Personal history of other venous thrombosis and embolism; Z87.891 Personal history of nicotine dependence; Z79.51 Long term (current) use of inhaled steroids; Z79.52 Long term (current) use of systemic steroids; Z79.01 Long term (current) use of anticoagulants; Z79.899 Other long term (current) drug therapy
CPT/HCPCS: 87070; 87205; 99283

== ENCOUNTER 2020-12-12 10:53 | Emergency (ER) | payer MEDICAID ==
[~2020-12-12] VITALS: Ht 165.1 cm; Wt 99.3 kg
--- NOTE | 2020-12-12 11:36 | ED Respiratory ---
General Chief Complaint: Respiratory Problems Stated Complaint: HX COPD & ASTHMA Nursing Triage Note: PT AMBULATE TO ROOM 10 WITHOUT DIFFICULTY WITH C/O SOB. PT REPORTS THAT THIS IS CHRONIC C/O. PT STATES THAT WHEN SHE MOVES AROUND TOO MUCH IT BECOMES MORE DIFFICULTY TO BREATH. PT STATES THAT IF SHE TAKES HER HOME BREATHING TX SHE FEELS BETTER. PT STATES THAT SHE "FEEL FINE AND DON'T FEEL SICK". PT REPORTS HX OF ASTHMA AND COPD. Source: patient Exam Limitations: no limitations History of Present Illness Date Seen by Provider: Dec 12, 2020 Time Seen by Provider: 11:36 Initial Comments To ER with shortness of breath for the past few days no cough no fever no chills. She has known COPD for which she has a nebulizer at home as well as prednisone 10 mg daily. Timing/Duration: constant Severity: moderate Associated Symptoms: cough Allergies and Home Medications Allergies Coded Allergies: aspirin (Verified Allergy, Severe, ANAPHYLAXIS, 03/03/19) ibuprofen (Verified Allergy, Severe, ANAPHYLAXIS, 03/03/19) ketorolac (Verified Allergy, Severe, ANAPHYLAXIS, 03/03/19) tetanus and diphtheria toxoids (Unverified Allergy, Severe, ANAPHYLAXIS, 03/03/19) aloe (Verified Allergy, Mild, RASH, 03/03/19) latex (Verified Allergy, Mild, RASH, 03/03/19) OCCASIONALLY IS IRRITATING SKIN scopolamine (Verified Allergy, Mild, 03/03/19) iodine (Verified Adverse Reaction, Unknown, 03/03/19) Patient states she got dizzy, diaphoretic and saw stars. Uncoded Allergies: ALOE VERA (Allergy, Unknown, 12/23/05) SILK SUTURES (Adverse Reaction, Unknown, BODY REJECTS SUTURES, 10/07/13) Home Medications Albuterol Sulfate 8.5 Gm Hfa.aer.ad, 2 PUFF IH Q4H PRN for SHORTNESS OF BREATH, (Reported) Albuterol Sulfate 2.5 Mg/3 Ml Vial.neb, 2.5 MG NEB Q2H PRN for SHORTNESS OF BREATH, (Reported) Alprazolam 1 Mg Tablet, 1 MG PO BID PRN for ANXIETY, (Reported) Calcium Carbonate/Vitamin D3 1 Each Tablet, 1 TAB PO BID, (Reported) Cefprozil 500 Mg Tablet, 500 MG PO BID Prescribed by: KAMRAN LINDQUIST on 08/07/20 1327 Cefprozil 500 Mg Tablet, 500 MG PO BID Prescribed by: ALVA LAMAR on 10/12/20 1106 Cephalexin 500 Mg Tablet, 500 MG PO QID Prescribed by: STEPHANIE ECKERT on 11/22/20 2247 Cyclobenzaprine HCl 5 Mg Tablet, 5 MG PO Q8H PRN for MUSCLE SPASMS Prescribed by: JULIO C MERINO on 12/05/19 1429 Epinephrine 0.3 Mg/0.3 Ml Auto.injct, 0.3 MG IJ PRN, (Reported) Fluticasone Propionate 1 Ea Aero, 2 PUFF INH BID, (Reported) Furosemide 40 Mg Tablet, 40 MG PO DAILY, (Reported) Hydrocodone/Acetaminophen 1 Each Tablet, 1 TAB PO Q6- 8H PRN for PAIN-MODERATE (5-7), (Reported) Hydrocodone/Acetaminophen 1 Each Tablet, 1 TAB PO Q4H PRN for PAIN-MODERATE (5- 7) Prescribed by: KAMRAN LINDQUIST on 10/20/20 1254 Hyoscyamine Sulfate 0.125 Mg Tab.rapdis, 0.125 MG SL Q6H PRN for ABDOMINAL PAIN, (Reported) Ipratropium [place] 0.2 Mg/1 Ml Solution, 1 VIAL NEB TID, (Reported) MIXES WITH ALBUTEROL SOLUTION Loratadine 10 Mg Tablet, 10 MG PO DAILY, (Reported) Metoprolol Succinate 25 Mg Tab.er.24h, 25 MG PO DAILY Prescribed by: KAMRAN LINDQUIST on 03/31/20 1748 Montelukast Sodium 10 Mg Tablet, 10 MG PO HS, (Reported) Oxycodone HCl/Acetaminophen 1 Each Tablet, 1-2 TAB PO Q4H PRN for PAIN-MODERATE (5-7) Prescribed by: ALVA LAMAR on 12/03/192010 Pantoprazole Sodium 40 Mg Tablet.dr, 40 MG PO DAILY, (Reported) Potassium Chloride 10 Meq Tablet.er, 20 MEQ PO BID, (Reported) TAKES 2 (10MEQ) TABLETS Prednisone 20 Mg Tab, 20 MG PO UD, (Reported) ON TAPER DOSE 3 TABS X 3 DAYS, THEN 2 TABS X 3 DAYS, THEN 1 T X 3 DAYS= PT IS JUST STARTING THEN 1 TAB X 3 DAYS Promethazine HCl 25 Mg Tablet, 25 MG PO Q6H PRN for NAUSEA/VOMITING-2ND LINE, (Reported) Warfarin Sodium 4 Mg Tablet, 4 MG PO ,,,,SA@1800, (Reported) Warfarin Sodium 5 Mg Tablet, 5 MG PO SAT,SAT @1800, (Reported) Patient Home Medication List Home Medication List Reviewed: Yes Review of Systems Review of Systems Constitutional: see HPI; No chills, No fever EENTM: see HPI Respiratory: no symptoms reported Cardiovascular: no symptoms reported 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: no symptoms reported Musculoskeletal: no symptoms reported Skin: no symptoms reported Psychiatric/Neurological: No Symptoms Reported Hematologic/Lymphatic: No Symptoms Reported Past Meenxjk-Mylhzw-Ppyxvk Hx Patient Social History Tobacco Use?: No Smoking Status: Never a Smoker Substance use?: No Alcohol Use?: No Pt feels they are or have been: No Immunizations Up To Date Tetanus Booster (TDap): Unknown PED Vaccines UTD: No Seasonal Allergies Seasonal Allergies: Yes Past Medical History Surgeries: Yes (C/S X2, KNEE SCOPE, SHOULDER SCOPE, d&C, BILAT ULNAR NERVE, VENA CAVA FILTE) Abdominal, Adenoidectomy, Section, Gallbladder, Hysterectomy, Orthop edic, Tonsillectomy, Tubal Ligation, Vascular Surgery Respiratory: Yes (O2 AT HS 2-3L/NC AND PRN--NOCTURNAL HYPOXIA; ) Asthma, Pneumonia, Chronic Bronchitis, Pulmonary Embolism, COPD Currently Using CPAP: No Currently Using BIPAP: No Cardiac: Yes (MULTIPLE DVT'S AND P.E.'S ) Chronic Edema/Swelling, Deep Vein Thrombosis, High Cholesterol, Hypertension, Peripheral Vascular Neurological: Yes Neuropathy 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, 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 Sexually Transmitted Disease: No HIV/AIDS: No 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: Yes Kidney Infection, Bladder Infection, Kidney Stones Gastrointestinal: Yes (MULTIPLE HERNIA REPAIRS; MULTIPLE EGD'S /COLON OSCOPIES/POLYPECTOMIES) Abdominal Hernia, Gastroesophageal Reflux, Chronic Constipation, Chronic Diarrhea, Hepatitis, Polyps, Hiatal Hernia, Irritable Bowel Musculoskeletal: Yes (MULTIPLE ORTHO SURGERIES) Arthritis Endocrine: Yes ("PRE-DIABETIC" ) HEENT: Yes (NASAL POLYPS REMOVED) Cataract Loss of Vision: Denies Hearing Impairment: Denies Cancer: No Did You Recieve Any Treatments: No Psychosocial: Yes Anxiety Integumentary: Yes (CHRONIC VENOUS STASIS DERMATITIS AND ULCERS. CELLULTITIS OF LEGS;TATTOOS ) Blood Disorders: Yes (DVT'S/PE'S; PROBABLE PROTEIN C DEFICIENCY) Adverse Reaction/Blood Tranf: No (HAS HAD BLOOD WITH NO PROBLEMS) Family Medical History Alcoholism Alcoholism Arthritis Asthma 19 MOTHER Cancer G8 BROTHER G8 SISTER Cancer of colon Cancer of mouth Cardiovascular disease Cataract Cataracts Chest pain Colon cancer Completed stroke Diabetes mellitus Family history: Allergy Family history: Arthritis Family history: Asthma Family history: Cardiovascular disease Family history: Coronary thrombosis Family history: Diabetes mellitus G8 BROTHER G8 SISTER Family history: Gastrointestinal disease Family history: Hypertension Family history: Thyroid disorder Headache Hearing loss Heart disease 19 MOTHER History of - anemia History of - respiratory disease Hypercholesterolemia Hypercholesterolemia Hypertension 19 FATHER Infertile Malignant neoplasm of lung Myocardial infarction Myocardial infarction Psychotic disorder Respiratory disorder Stroke No Family History of: AIDS Abdominal aortic aneurysm Abdominal aortic aneurysm Braxton's disease Fernando's disease Alzheimer's disease Aphasia Aphasia Congenital disease Congenital heart disease Congenital heart disease Congestive heart failure Coronary thrombosis Cystic fibrosis Cystic fibrosis Deafness or hearing loss Dementia Dementia Drug abuse Dysphagia Dysphasia Family history: Alzheimer's disease Family history: Breast disease Family history: Glaucoma Family history: Osteoporosis Fibrocystic disease of breast Gastroenteritis Glaucoma Headache disorder Hereditary disease History of - disorder History of drug abuse Human immunodeficiency virus (HIV) seropositivity Infertility Kidney disease Kidney disease Neoplasm Not obtainable due to adoption Osteoporosis Parkinson's disease Parkinson's disease Prostate cancer Psychosocial problem Seizure disorder Seizure disorder Severe allergy Thyroid disease Tuberculosis Tuberculosis Visual disorder Visual impairment Cancer, COPD, Vascular Disease SOCIAL HISTORY: -ETOH--RARE USE NOW, HISTORY OF HEAVY USE/ABUSE -DRUGS-HX OF IV COCAINE USE -SMOKED 1 PPD, QUIT 2000 PAST SURGICAL HISTORY: -C-SECTIONS 1981, 1985 -SHOULDER SURGERY 2007 -LEFT KNEE SURGERY 2008 -D&C 2008 -HYSTERECTOMY/BILATERAL SALPINGO-OOPHORECTOMY 2008 -VENA CAVA FILTER 2009 -EGD 2010 -VEIN STRIPPING IN LEGS 2012 -BILATERAL ELBOW/ULNAR NERVE SURGERY 2012 -MULTIPLE HERNIA REPAIRS -MULTIPLE EGD'S AND COLONOSCOPIES AND POLYPECTOMIES -TONSILLECTOMY/ADENOIDECTOMY -CHOLECYSTECTOMY -NASAL POLYPS REMOVED -BILATERAL LEG RADIOABLATION 06/2018 ADDITIONAL PAST MEDICAL HISTORY: -MULTIPLE DVT'S AND P.E.'S -CHRONIC VENOUS STASIS ULCERATIONS -LEG CELLULITIS Physical Exam Vital Signs - First Documented 12/12/20 11:02 Temp 37.1 Pulse 118 Resp 19 B/P (MAP) 169/93 (118) O2 Delivery Room Air Capillary Refill : Less Than 3 Seconds Height: 5'5.00" Weight: 184lbs. 5.0oz. 83.781419wh; 36.00 BMI Method:Stated General Appearance: WD/WN, no apparent distress, other (No distress speaks in full sentences lungs are clear without wheezing though diminished. Oxygen saturation 93 to 97% room air.) HEENT: PERRL/EOMI, normal ENT inspection Respiratory: no respiratory distress, no accessory muscle use Gastrointestinal: normal bowel sounds, non tender, soft Neurologic/Psychiatric: alert, normal mood/affect, oriented x 3 Skin: normal color, warm/dry Progress/Results/Core Measures Suspected Sepsis SIRS Temperature: Pulse: 118 Respiratory Rate: 19 Blood Pressure 169 /93 Mean: 118 Results/Orders My Orders Orders - KAMRAN LINDQUIST APRN Covid 19 Inhouse Test (12/12/20 11:34) Chest 1 View, Ap/Pa Only (12/12/20 11:34) Methylprednisolone Sod Succ (Solu-Medrol (12/12/20 12:00) Vital Signs/I&O 12/12/20 11:02 Temp 37.1 Pulse 118 Resp 19 B/P (MAP) 169/93 (118) O2 Delivery Room Air Capillary Refill : Less Than 3 Seconds Blood Pressure Mean: 118 Departure Impression Primary Impression: COPD (chronic obstructive pulmonary disease) Disposition: 01 HOME, SELF-CARE Condition: Stable Departure-Patient Inst. Decision time for Depature: 12:02 Referrals: LEAH WOLF MD (PCP/Family) Primary Care Physician Patient Instructions: Cough, Adult (DC) Add. Discharge Instructions: 1. If symptoms persist into tomorrow then start your steroid taper. All discharge instructions reviewed with patient and/or family. Voiced un derstanding. KAMRAN LINDQUIST APRN Dec 12, 2020 11:36
[2020-12-12] MEDS ORDERED: methylPREDNISolone 125 MG (Solu-MEDROL) VIAL IVP ONE (12:00)
[2020-12-12 13:11] VITALS: BP 157/88
== END 2020-12-12 13:11 | disposition home or self-care (01) ==
LOC: EDUNIT# 10:53 → ER 10:54
DX: J44.9 Chronic obstructive pulmonary disease, unspecified (principal); I10 Essential (primary) hypertension; K21.9 Gastro-esophageal reflux disease without esophagitis; F41.9 Anxiety disorder, unspecified; Z20.822 Contact with and (suspected) exposure to COVID-19; Z86.718 Personal history of other venous thrombosis and embolism; Z86.711 Personal history of pulmonary embolism; Z79.01 Long term (current) use of anticoagulants; Z79.899 Other long term (current) drug therapy; Z79.52 Long term (current) use of systemic steroids
CPT/HCPCS: 87636

== ENCOUNTER → 2021-01-27 | Outpatient (CLI) | payer MEDICAID ==
--- NOTE | 2021-01-27 11:37 | Diagnostic Imaging Report ---
INDICATION: Routine screening. COMPARISON is made with prior mammograms 11/19/2019 and 08/14/2018. 2-D and 3-D bilateral screening mammography was performed with CAD. Scattered fibroglandular densities are identified bilaterally. The parenchymal pattern is stable. No mass or malignant-appearing microcalcifications are seen. There are benign parenchymal and vascular calcifications bilaterally. Axillae are unremarkable. IMPRESSION: BI-RADS Category 2 No mammographic features suspicious for malignancy are identified. ACR BI-RADS Category 2: Benign findings. Result letter will be mailed to the patient. Note: At least 10% of breast cancer is not imaged by mammography. Dictated by: Dictated on workstation # [id number]
== END ==
LOC: RAD 08:00
PROVIDERS: ATTEND Family Medicine
DX: Z12.31 Encounter for screening mammogram for malignant neoplasm of breast (principal)
CPT/HCPCS: 77063; 77067

== ENCOUNTER 2021-02-26 08:21 | Emergency (ER) | payer MEDICAID ==
[~2021-02-26] VITALS: Ht 165.1 cm; Wt 99.3 kg
[2021-02-26] MEDS ORDERED: RT-ALBUTEROL/IPRATROPIUM 3 ML (DUONEB) VIAL INH ONE (08:45)
[2021-02-26] MEDS ORDERED: RT-ALBUTEROL SULF 2.5 MG/3 ML PRE-MIX VIAL INH STA (08:45)
[2021-02-26 08:55] LABS: BASOPHILS % (AUTO) 0 % (0-10); EOSINOPHILS # (AUTO) 0.2 10^3/uL (0.0-0.3); EOSINOPHILS % (AUTO) 2 % (0-10); HEMATOCRIT 44 % (35-52); HEMOGLOBIN 13.7 g/dL (11.5-16.0); LYMPHOCYTES # (AUTO) 3.6 10^3/uL (1.0-4.0); LYMPHOCYTES % (AUTO) 39 % (12-44); MEAN CORPUSCULAR HEMOGLOBIN 28 pg (25-34); MEAN CORPUSCULAR HGB CONC 31 g/dL (32-36); MEAN CORPUSCULAR VOLUME 88 fL (80-99); MEAN PLATELET VOLUME 8.7 fL (9.0-12.2); MONOCYTES # (AUTO) 0.9 10^3/uL (0.0-1.0); MONOCYTES % (AUTO) 10 % (0-12); NEUTROPHILS # (AUTO) 4.6 10^3/uL (1.8-7.8); NEUTROPHILS % (AUTO) 49 % (42-75); PLATELET COUNT 301 10^3/uL (130-400); WHITE BLOOD COUNT 9.3 10^3/uL (4.3-11.0)
[2021-02-26 08:59] LABS: POTASSIUM 3.5 MMOL/L (3.6-5.0)
[2021-02-26 09:00] LABS: CALCIUM 9.5 MG/DL (8.5-10.1); INR 2.2 (0.8-1.4)
[2021-02-26 09:01] LABS: TOTAL PROTEIN 7.8 GM/DL (6.4-8.2)
[2021-02-26 09:03] LABS: BILIRUBIN,TOTAL 0.3 MG/DL (0.1-1.0)
[2021-02-26 09:05] LABS: CREATININE SERUM 0.73 MG/DL (0.60-1.30)
[2021-02-26] MEDS ORDERED: methylPREDNISolone 125 MG (Solu-MEDROL) VIAL IVP ONE (09:15)
--- NOTE | 2021-02-26 09:56 | Diagnostic Imaging Report ---
EXAMINATION: Chest radiograph, portable AP view. DATE: 02/26/2021 9:41 AM INDICATION: 60-year-old female, shortness breath, wheezing. COMPARISON: October 20, 2020. FINDINGS: Heart size and mediastinal contours are unchanged. There is no identified pneumothorax. There is right mid and lower lung zone opacification and nonspecific left basilar airspace consolidation. This is largely unchanged. IMPRESSION: 1. Right mid and lower lung zone consolidation left basilar airspace consolidation which is unchanged may relate to effusions, infiltrate, and/or atelectasis. Dictated by: Dictated on workstation # [id number]
--- NOTE | 2021-02-26 12:04 | ED Respiratory ---
General Chief Complaint: Respiratory Problems Stated Complaint: ASTHMA ISSUES/SOA/WHEEZING Source: patient Exam Limitations: no limitations History of Present Illness Date Seen by Provider: Feb 26, 2021 Time Seen by Provider: 08:35 Initial Comments This 60-year-old woman with rather severe COPD presents to the emergency room with persistent shortness of breath and wheezing from COPD exacerbation despite using antibiotics, a high-dose steroid taper, and a multiple inhaler treatments at home. She is quite tight and wheezy on exam. She has been afebrile. She is on warfarin therapy for history of DVT/PE. She has nasal cannula oxygen available at home which she typically uses at night. She notes some room air o xygen saturations in the low upper 80s at home. Allergies and Home Medications Allergies Coded Allergies: aspirin (Verified Allergy, Severe, ANAPHYLAXIS, 03/03/19) ibuprofen (Verified Allergy, Severe, ANAPHYLAXIS, 03/03/19) ketorolac (Verified Allergy, Severe, ANAPHYLAXIS, 03/03/19) tetanus and diphtheria toxoids (Unverified Allergy, Severe, ANAPHYLAXIS, 03/03/19) aloe (Verified Allergy, Mild, RASH, 03/03/19) latex (Verified Allergy, Mild, RASH, 03/03/19) OCCASIONALLY IS IRRITATING SKIN scopolamine (Verified Allergy, Mild, 03/03/19) iodine (Verified Adverse Reaction, Unknown, 03/03/19) Patient states she got dizzy, diaphoretic and saw stars. Uncoded Allergies: ALOE VERA (Allergy, Unknown, 12/23/05) SILK SUTURES (Adverse Reaction, Unknown, BODY REJECTS SUTURES, 10/07/13) Patient Home Medication List Home Medication List Reviewed: Yes Albuterol Sulfate (Proair Hfa) 8.5 Gm Hfa.aer.ad, 2 PUFF IH Q4H PRN for SHORTNESS OF BREATH, (Reported) Entered as Reported by: YOSSI NELSON on 08/10/15 1057 Albuterol Sulfate (Albuterol Sulfate) 2.5 Mg/3 Ml Vial.neb, 2.5 MG NEB Q2H PRN for SHORTNESS OF BREATH, (Reported) Entered as Reported by: YOSSI NELSON on 05/28/19 0952 Alprazolam (Alprazolam) 1 Mg Tablet, 1 MG PO BID PRN for ANXIETY, (Reported) Entered as Reported by: JESÚS PHILLIPS on 03/07/15 1623 Calcium Carbonate/Vitamin D3 (Calcium 600 + Vit D 800 Tab) 1 Each Tablet, 1 TAB PO BID, (Reported) Entered as Reported by: YOSSI NELSON on 06/05/17 0815 Cefprozil (Cefprozil) 500 Mg Tablet, 500 MG PO BID Prescribed by: KAMRAN LINDQUIST on 08/07/20 1327 Cefprozil (Cefprozil) 500 Mg Tablet, 500 MG PO BID Prescribed by: ALVA LAMAR on 10/12/20 1106 Cephalexin (Cephalexin) 500 Mg Tablet, 500 MG PO QID Prescribed by: STEPHANIE ECKERT on 11/22/20 2247 Cyclobenzaprine HCl (Cyclobenzaprine HCl) 5 Mg Tablet, 5 MG PO Q8H PRN for MUSCLE SPASMS Prescribed by: JULIO C MERINO on 12/05/19 1429 Epinephrine (Epipen) 0.3 Mg/0.3 Ml Auto.injct, 0.3 MG IJ PRN, (Reported) Entered as Reported by: OUMOU ROMANO on 07/21/19 1216 Fluticasone Propionate (Flovent Hfa 220 mcg) 1 Ea Aero, 2 PUFF INH BID, (Reported) Entered as Reported by: YOSSI NELSON on 03/03/19 1340 Furosemide (Furosemide) 40 Mg Tablet, 40 MG PO DAILY, (Reported) Entered as Reported by: YOSSI NELSON on 03/03/19 1340 Hydrocodone/Acetaminophen ([place] 10-325 Tablet) 1 Each Tablet, 1 TAB PO Q6- 8H PRN for PAIN-MODERATE (5-7), (Reported) Entered as Reported by: SHAMIR SALAZAR on 07/20/19 1612 Hydrocodone/Acetaminophen (Hydrocodone-Acetamin 5-325 mg) 1 Each Tablet, 1 TAB PO Q4H PRN for PAIN-MODERATE (5-7) Prescribed by: KAMRAN LINDQUIST on 10/20/20 1254 Hyoscyamine Sulfate (Hyoscyamine Sulfate) 0.125 Mg Tab.rapdis, 0.125 MG SL Q6H PRN for ABDOMINAL PAIN, (Reported) Entered as Reported by: JESÚS PHILLIPS on 07/23/16 1618 Ipratropium Holmes (Ipratropium Holmes) 0.2 Mg/1 Ml Solution, 1 VIAL NEB TID, (Reported) Entered as Reported by: JESÚS PHILLIPS on 03/07/15 1640 Loratadine (Loratadine) 10 Mg Tablet, 10 MG PO DAILY, (Reported) Entered as Reported by: JESÚS PHILLIPS on 03/07/15 1623 Metoprolol Succinate (Toprol Xl) 25 Mg Tab.er.24h, 25 MG PO DAILY Prescribed by: KAMRAN LINDQUIST on 03/31/20 1748 Montelukast Sodium (Montelukast Sodium) 10 Mg Tablet, 10 MG PO HS, (Reported) Entered as Reported by: MELISSA MONTERO on 05/18/17 1103 Oxycodone HCl/Acetaminophen (Percocet 5-325 mg Tablet) 1 Each Tablet, 1-2 TAB PO Q4H PRN for PAIN-MODERATE (5-7) Prescribed by: ALVA LAMAR on 12/03/192010 Pantoprazole Sodium (Pantoprazole Sodium) 40 Mg Tablet.dr, 40 MG PO DAILY, (Reported) Entered as Reported by: JESÚS PHILLIPS on 03/07/15 162 Potassium Chloride (K-Tab ER) 10 Meq Tablet.er, 20 MEQ PO BID, (Reported) Entered as Reported by: YOSSI NELSON on 05/28/19 0952 Prednisone (Prednisone) 20 Mg Tab, 20 MG PO UD, (Reported) Entered as Reported by: SHAMIR SALAZAR on 07/20/19 1602 Promethazine HCl (Promethazine Tablet) 25 Mg Tablet, 25 MG PO Q6H PRN for NAUSE A/VOMITING-2ND LINE, (Reported) Entered as Reported by: YOSSI NELSON on 04/14/18 1053 Warfarin Sodium ([place]ant[place]) 4 Mg Tablet, 4 MG PO MO,,TH,FR,SA@1800, (Reported) Entered as Reported by: YOSSI NELSON on 05/28/19 0952 Warfarin Sodium (Jantoven) 5 Mg Tablet, 5 MG PO SAT,SAT @1800, (Reported) Entered as Reported by: SHAMIR SALAZAR on 07/20/19 1602 Review of Systems Review of Systems Constitutional: no symptoms reported EENTM: no symptoms reported Respiratory: see HPI Cardiovascular: no symptoms reported Gastrointestinal: no symptoms reported 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: no symptoms reported Musculoskeletal: no symptoms reported Skin: no symptoms reported Psychiatric/Neurological: No Symptoms Reported Hematologic/Lymphatic: No Symptoms Reported Past Pglrwdo-Ponehi-Htvlrh Hx Patient Social History Tobacco Use?: No Substance use?: No Alcohol Use?: No Immunizations Up To Date Tetanus Booster (TDap): Unknown PED Vaccines UTD: No Seasonal Allergies Seasonal Allergies: Yes Past Medical History Surgeries: Yes (C/S X2, KNEE SCOPE, SHOULDER SCOPE, d&C, BILAT ULNAR NERVE, VENA CAVA FILTE) Abdominal, Adenoidectomy, Section, Gallbladder, Hysterectomy, Orthopedic, Tonsillectomy, Tubal Ligation, Vascular Surgery Respiratory: Yes (O2 AT HS 2-3L/NC AND PRN--NOCTURNAL HYPOXIA; ) Asthma, Pneumonia, Chronic Bronchitis, Pulmonary Embolism, COPD Currently Using CPAP: No Currently Using BIPAP: No Cardiac: Yes (MULTIPLE DVT'S AND P.E.'S ) Chronic Edema/Swelling, Deep Vein Thrombosis, High Cholesterol, Hypertension, Peripheral Vascular Neurological: Yes Neuropathy 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 Disorders: Yes [employer] History: Hysterectomy, Menopausal Sexually Transmitted Disease: No HIV/AIDS: No 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: Yes Kidney Infection, Bladder Infection, Kidney Stones Gastrointestinal: Yes (MULTIPLE HERNIA REPAIRS; MULTIPLE EGD'S /COLONOSCOPIES/POLYPECTOMIES) Abdominal Hernia, Gastroesophageal Reflux, Chronic Constipation, Chronic Diarrhea, Hepatitis, Polyps, Hiatal Hernia, Irritable Bowel Musculoskeletal: Yes (MULTIPLE ORTHO SURGERIES) Arthritis Endocrine: Yes ("PRE-DIABETIC" ) HEENT: Yes (NASAL POLYPS REMOVED) Cataract Loss of Vision: Denies Hearing Impairment: Denies Cancer: No Did You Recieve Any Treatments: No Psychosocial: Yes Anxiety Integumentary: Yes (CHRONIC VENOUS STASIS DERMATITIS AND ULCERS. CELLULTITIS OF LEGS;TATTOOS ) Blood Disorders: Yes (DVT'S/PE'S; PROBABLE PROTEIN C DEFICIENCY) Adverse Reaction/Blood Tranf: No (HAS HAD BLOOD WITH NO PROBLEMS) Family Medical History Alcoholism Alcoholism Arthritis Asthma 19 MOTHER Cancer G8 BROTHER G8 SISTER Cancer of colon Cancer of mouth Cardiovascular disease Cataract Cataracts Chest pain Colon cancer Completed stroke Diabetes mellitus Family history: Allergy Family history: Arthritis Family history: Asthma Family history: Cardiovascular disease Family history: Coronary thrombosis Family history: Diabetes mellitus G8 BROTHER G8 SISTER Family history: Gastrointestinal disease Family history: Hypertension Family history: Thyroid disorder Headache Hearing loss Heart disease 19 MOTHER History of - anemia History of - respiratory disease Hypercholesterolemia Hypercholesterolemia Hypertension 19 FATHER Infertile Malignant neoplasm of lung Myocardial infarction Myocardial infarction Psychotic disorder Respiratory disorder Stroke No Family History of: AIDS Abdominal aortic aneurysm Abdominal aortic aneurysm Pierce's disease Pierce's disease Alzheimer's disease Aphasia Aphasia Congenital disease Congenital heart disease Congenital heart disease Congestive heart failure Coronary thrombosis Cystic fibrosis Cystic fibrosis Deafness or hearing loss Dementia Dementia Drug abuse Dysphagia Dysphasia Family history: Alzheimer's disease Family history: Breast disease Family history: Glaucoma Family history: Osteoporosis Fibrocystic disease of breast Gastroenteritis Glaucoma Headache disorder Hereditary disease History of - disorder History of drug abuse Human immunodeficiency virus (HIV) seropositivity Infertility Kidney disease Kidney disease Neoplasm Not obtainable due to adoption Osteoporosis Parkinson's disease Parkinson's disease Prostate cancer Psychosocial problem Seizure disorder Seizure disorder Severe allergy Thyroid disease Tuberculosis Tuberculosis Visual disorder Visual impairment Cancer, COPD, Vascular Disease SOCIAL HISTORY: -ETOH--RARE USE NOW, HISTORY OF HEAVY USE/ABUSE -DRUGS-HX OF IV COCAINE USE -SMOKED 1 PPD, QUIT 2000 PAST SURGICAL HISTORY: -C-SECTIONS 1981, 1985 -SHOULDER SURGERY 2007 -LEFT KNEE SURGERY 2008 -D&C 2008 -HYSTERECTOMY/BILATERAL SALPINGO-OOPHORECTOMY 2008 -VENA CAVA FILTER 2009 -EGD 2010 -VEIN STRIPPING IN LEGS 2012 -BILATERAL ELBOW/ULNAR NERVE SURGERY 2012 -MULTIPLE HERNIA REPAIRS -MULTIPLE EGD'S AND COLONOSCOPIES AND POLYPECTOMIES -TONSILLECTOMY/ADENOIDECTOMY -CHOLECYSTECTOMY -NASAL POLYPS REMOVED -BILATERAL LEG RADIOABLATION 06/2018 ADDITIONAL PAST MEDICAL HISTORY: -MULTIPLE DVT'S AND P.E.'S -CHRONIC VENOUS STASIS ULCERATIONS -LEG CELLULITIS Physical Exam Vital Signs - First Documented 02/26/21 08:27 Temp 36.1 Pulse 120 Resp 22 B/P (MAP) 184/113 (136) Pulse Ox 93 O2 Delivery Room Air O2 Flow Rate 2.00 Capillary Refill : Height: 5'5.00" Weight: 184lbs. 5.0oz. 83.095651ww; 36.00 BMI Method:Stated General Appearance: WD/WN, no apparent distress HEENT: PERRL/EOMI, normal ENT inspection Neck: normal inspection Respiratory: No crackles, No rhonchi; wheezing Cardiovascular: regular rate, rhythm, no edema Gastrointestinal: non tender, soft Extremities: swelling Neurologic/Psychiatric: diabetes physician II-XII nml as tested, no motor/sensory deficits, alert, normal mood/affect, oriented x 3 Skin: normal color, warm/dry, other (Chronic skin changes on the lower extremities with a small weeping sore on the left.) Progress/Results/Core Measures Suspected Sepsis SIRS Temperature: Pulse: Respiratory Rate: Laboratory Tests 02/26/21 08:30: White Blood Count 9.3 Blood Pressure / Mean: Laboratory Tests 02/26/21 08:30: Creatinine 0.73, INR Comment 2.2H, Platelet Count 301, Total Bilirubin 0.3 Results/Orders Lab Results Laboratory Tests Test 02/26/21 08:30 Range/Units White Blood Count 9.3 4.3-11.0 10^3/uL Red Blood Count 4.99 3.80-5.11 10^6/uL Hemoglobin 13.7 11.5-16.0 g/dL Hematocrit 44 35-52 % Mean Corpuscular Volume 88 80-99 fL Mean Corpuscular Hemoglobin 28 25-34 pg Mean Corpuscular Hemoglobin Concent 31 L 32-36 g/dL Red Cell Distribution Width 15.9 H 10.0-14.5 % Platelet Count 301 130-400 10^3/uL Mean Platelet Volume 8.7 L 9.0-12.2 fL Immature Granulocyte % (Auto) 0 % Neutrophils (%) (Auto) 49 42-75 % Lymphocytes (%) (Auto) 39 12-44 % Monocytes (%) (Auto) 10 0-12 % Eosinophils (%) (Auto) 2 0-10 % Basophils (%) (Auto) 0 0-10 % Neutrophils # (Auto) 4.6 1.8-7.8 10^3/uL Lymphocytes # (Auto) 3.6 1.0-4.0 10^3/uL Monocytes # (Auto) 0.9 0.0-1.0 10^3/uL Eosinophils # (Auto) 0.2 0.0-0.3 10^3/uL Basophils # (Auto) 0.0 0.0-0.1 10^3/uL Immature Granulocyte # (Auto) 0.0 0.0-0.1 10^3/uL Prothrombin Time 25.0 H 12.2-14.7 SEC INR Comment 2.2 H 0.8-1.4 Sodium Level 144 135-145 MMOL/L Potassium Level 3.5 L 3.6-5.0 MMOL/L Chloride Level 105 98-107 MMOL/L Carbon Dioxide Level 27 21-32 MMOL/L Anion Gap 12 5-14 MMOL/L Blood Urea Nitrogen 12 7-18 MG/DL Creatinine 0.73 0.60-1.30 MG/DL Estimat Glomerular Filtration Rate 81 BUN/Creatinine Ratio 16 Glucose Level 95 70-105 MG/DL Calcium Level 9.5 8.5-10.1 MG/DL Corrected Calcium 9.5 8.5-10.1 MG/DL Total Bilirubin 0.3 0.1-1.0 MG/DL Aspartate Amino Transf (AST/SGOT) 15 5-34 U/L Alanine Aminotransferase (ALT/SGPT) 20 0-55 U/L Alkaline Phosphatase 70 40-136 U/L C-Reactive Protein High Sensitivity 0.08 0.00-0.50 MG/DL B-Type Natriuretic Peptide < 10.0 <100.0 PG/ML Total Protein 7.8 6.4-8.2 GM/DL Albumin 4.0 3.2-4.5 GM/DL Influenza Type A (RT-PCR) Not Detected Not Detecte Influenza Type B (RT-PCR) Not Detected Not Detecte SARS-CoV-2 RNA (RT-PCR) Not Detected Not Detecte My Orders Orders - ALVA BENJAMIN MD Influenza A And B By Pcr (02/26/21 08:44) Covid 19 Inhouse Test (02/26/21 08:44) Albuterol Pre-Mix Nebs (Rt) (Proventil (02/26/21 08:45) Albuterol/Ipra Inhalation Soln (Duoneb I (02/26/21 08:45) Svn Small Volume Nebulizer (02/26/21 08:45) Svn Small Volume Nebulizer (02/26/21 08:45) Cbc With Automated Diff (02/26/21 08:45) Comprehensive Metabolic Panel (02/26/21 08:45) Hs C Reactive Protein (02/26/21 08:45) Protime With Inr (02/26/21 08:45) Ed Iv/Invasive Line Start (02/26/21 08:45) Methylprednisolone Sod Succ (Solu-Medrol (02/26/21 09:15) BNP (02/26/21 09:01) Chest 1 View, Ap/Pa Only (02/26/21 09:06) Medications Given in ED Vital Signs/I&O 02/26/21 02/26/21 02/26/21 02/26/21 08:27 08:27 08:59 12:24 Temp 36.1 36.1 Pulse 120 116 Resp 22 20 B/P (MAP) 184/113 (136) 133/89 Pulse Ox 93 94 94 O2 Delivery Room Air Nasal Cannula Nasal Cannula Nasal Cannula O2 Flow Rate 2.00 2.00 2.00 2.00 Capillary Refill : Progress Note : Progress Note Patient's evaluation was relatively unremarkable including influenza and COVID- 19 swabs, x-ray, and labs. She received an hour-long nebulizer treatment which did improve her wheezing some. She remained stable on nasal cannula at 2 to 4 L/min. She commented that Solu-Medrol typically is more helpful to her than prednisone. She was given Solu-Medrol 125 mg IV. We had a discussion regarding disposition. Ultimately, patient decided she would return home as she does have oxygen support there, nebulizer treatments, and is already on antibiotic and steroid therapies. She is stable at this time. Her INR was therapeutic at 2.2. She was discharged home in stable condition. Diagnostic Imaging Diagonstic Imaging: Xray Plain Films/CT/US/NM/MRI: chest Comments NAME: SUJEY FELIZ [facility] REC#: [id number] PT STATUS: REG ER : 1960 PHYSICIAN: ALVA BENJAMIN MD ADMIT DATE: 02/26/21/ER Signed Date of Exam:02/26/21 CHEST 1 VIEW, AP/PA ONLY EXAMINATION: Chest radiograph, portable AP view. DATE: 02/26/2021 9:41 AM INDICATION: 60-year-old female, shortness breath, wheezing. COMPARISON: October 20, 2020. FINDINGS: Heart size and mediastinal contours are unchanged. There is no identified pneumothorax. There is right mid and lower lung zone opacification and nonspecific left basilar airspace consolidation. This is largely unchanged. IMPRESSION: 1. Right mid and lower lung zone consolidation left basilar airspace consolidation which is unchanged may relate to effusions, infiltrate, and/or atelectasis. Dictated by: Dictated on workstation # [id number] Dict: 02/26/2148 Trans: 02/26/21958 [facility] [id number] Interpreted by: ALEE GARCIA MD Electronically signed by: ALEE GARCIA MD 02/26/21958 Departure Impression Primary Impression: COPD exacerbation Disposition: HOME, SELF-CARE Condition: Improved Departure-Patient Inst. Referrals: LEAH WOLF MD (PCP/Family) Primary Care Physician Patient Instructions: Chronic Obstructive Pulmonary Disease (COPD), Including Emphysema Add. Discharge Instructions: Take your next prednisone dose this afternoon and then continue on the usual schedule. Increase your nebulized ipratropium to every 6 hours. Complete the entire course of your antibiotics. Call Dr. Wolf in the morning to discuss further plan. Call with questions or concerns. Return to the ER if you have worsening symptoms. All discharge instructions reviewed with patient and/or family. Voiced understanding. Copy Copies To 1: LEAH WOLF MD, JOSHUA T MD Feb 26, 2021 12:03
[2021-02-26 12:24] VITALS: BP 133/89
== END 2021-02-26 12:24 | disposition home or self-care (01) ==
LOC: EDUNIT# 08:21 → ER 08:23
DX: J44.1 Chronic obstructive pulmonary disease with (acute) exacerbation (principal); I10 Essential (primary) hypertension; F41.9 Anxiety disorder, unspecified; K21.9 Gastro-esophageal reflux disease without esophagitis; Z86.711 Personal history of pulmonary embolism; Z86.718 Personal history of other venous thrombosis and embolism; Z20.822 Contact with and (suspected) exposure to COVID-19; Z79.899 Other long term (current) drug therapy; Z79.01 Long term (current) use of anticoagulants; Z79.52 Long term (current) use of systemic steroids
CPT/HCPCS: 36415; 71045; 80053; 83880; 85025; 85610; 86141; 87636; 94640; 94760

== ENCOUNTER 2021-03-02 13:29 | Emergency (ER) | payer MEDICAID ==
[~2021-03-02] VITALS: Ht 165.1 cm; Wt 100.0 kg
--- NOTE | 2021-03-02 14:21 | Diagnostic Imaging Report ---
INDICATION: Elbow pain EXAMINATION: Left elbow 03/02/2021 FINDINGS: 3 views of the elbow FINDINGS: There is no evidence for an acute fracture or dislocation. The joint spaces are well maintained. There is no significant soft tissue swelling. IMPRESSION: No acute process. Dictated by: Dictated on workstation # [id number]
--- NOTE | 2021-03-02 14:26 | Diagnostic Imaging Report ---
INDICATION: Wrist pain. TIME OF EXAM: 2:12 p.m. FINDINGS: Three views of the left wrist were obtained. There are some lucencies in the distal radius suggestive of distal radius fracture. No significant displacement or angulation is seen. Distal ulna is intact. There is chondrocalcinosis of the triangular fibrocartilage complex. Carpal bones are unremarkable. There are degenerative changes at the triscaphe and first CMC joints with joint space narrowing, sclerosis, and marginal osteophyte formation. IMPRESSION: Findings suggestive of a nondisplaced distal radius fracture. Dictated by: Dictated on workstation # [id number]
--- NOTE | 2021-03-02 15:11 | Diagnostic Imaging Report ---
CLINICAL INDICATIONS: Patient had a leg cramp that caused her to fall landing on right knee and bracing her fall with her left arm. EXAM: X-ray of the right knee, 3 views. COMPARISON: None. FINDINGS: There is no acute fracture or dislocation. There is no knee effusion. There are tricompartmental spurs seen which is most pronounced in the medial compartment which are moderately hypertrophic. There is at least mild to moderate medial compartment narrowing on these nonweightbearing views. Vascular calcifications are seen. IMPRESSION: There is degenerative disease of the right knee but no acute fracture. Dictated by: Dictated on workstation # [id number]
--- NOTE | 2021-03-02 15:33 | ED Fall/Injury ---
General Chief Complaint: Upper Extremity Stated Complaint: FELL AND HURT L WRIST AND RIGHT LEG. Nursing Triage Note: Pt ambulatory into ER with complaint of Right Knee Pain, Left Wrist Pain secondary to fall. PT states that she was walking and got a cramp in leg causing her to fall. Pt has what appears to be a deformity/swelling to left wrist. Pain is 10/10 in wrist. Knee and just below on right leg is sore, but wrist is patients main concern. Pt states that she has no other complaints. Source: patient Exam Limitations: no limitations History of Present Illness Date Seen by Provider: Mar 02, 2021 Time Seen by Provider: 13:50 Initial Comments This 60-year-old woman presents to emergency room with complaints of pain and swelling in the left wrist after falling at home. She experienced a cramp in her left leg that caused her leg to buckle and her to fall. She reports frequent cramps that cause problems with walking and standing. She bumped her right lateral knee as well. She landed on an outstretched left hand causing her wrist injury. Allergies and Home Medications Allergies Coded Allergies: aspirin (Verified Allergy, Severe, ANAPHYLAXIS, 03/03/19) ibuprofen (Verified Allergy, Severe, ANAPHYLAXIS, 03/03/19) ketorolac (Verified Allergy, Severe, ANAPHYLAXIS, 03/03/19) tetanus and diphtheria toxoids (Unverified Allergy, Severe, ANAPHYLAXIS, 03/03/19) aloe (Verified Allergy, Mild, RASH, 03/03/19) latex (Verified Allergy, Mild, RASH, 03/03/19) OCCASIONALLY IS IRRITATING SKIN scopolamine (Verified Allergy, Mild, 03/03/19) iodine (Verified Adverse Reaction, Unknown, 03/03/19) Patient states she got dizzy, diaphoretic and saw stars. Uncoded Allergies: ALOE VERA (Allergy, Unknown, 12/23/05) SILK SUTURES (Adverse Reaction, Unknown, BODY REJECTS SUTURES, 10/07/13) Patient Home Medication List Home Medication List Reviewed: Yes Albuterol Sulfate (Proair Hfa) 8.5 Gm Hfa.aer.ad, 2 PUFF IH Q4H PRN for SHORTNESS OF BREATH, (Reported) Entered as Reported by: YOSSI NELSON on 08/10/15 6373 Albuterol Sulfate (Albuterol Sulfate) 2.5 Mg/3 Ml Vial.neb, 2.5 MG NEB Q2H PRN for SHORTNESS OF BREATH, (Reported) Entered as Reported by: YOSSI NELSON on 05/28/19 0952 Alprazolam (Alprazolam) 1 Mg Tablet, 1 MG PO BID PRN for ANXIETY, (Reported) Entered as Reported by: JESÚS PHILLIPS on 03/07/15 1623 Calcium Carbonate/Vitamin D3 (Calcium 600 + Vit D 800 Tab) 1 Each Tablet, 1 TAB PO BID, (Reported) Entered as Reported by: YOSSI NELSON on 06/05/17 0815 Cefprozil (Cefprozil) 500 Mg Tablet, 500 MG PO BID Prescribed by: KAMRAN LINDQUIST on 08/07/20 1327 Cefprozil (Cefprozil) 500 Mg Tablet, 500 MG PO BID Prescribed by: ALVA LAMAR on 10/12/20 1106 Cephalexin (Cephalexin) 500 Mg Tablet, 500 MG PO QID Prescribed by: STEPHANIE ECKERT on 11/22/20 2247 Cyclobenzaprine HCl (Cyclobenzaprine HCl) 5 Mg Tablet, 5 MG PO Q8H PRN for MUSCLE SPASMS Prescribed by: JULIO C MREINO on 12/05/19 1429 Epinephrine (Epipen) 0.3 Mg/0.3 Ml Auto.injct, 0.3 MG IJ PRN, (Reported) Entered as Reported by: OUMOU ROMANO on 07/21/19 1216 Fluticasone Propionate (Flovent Hfa 220 mcg) 1 Ea Aero, 2 PUFF INH BID, (Reported) Entered as Reported by: YOSSI NELSNO on 03/03/19 1340 Furosemide (Furosemide) 40 Mg Tablet, 40 MG PO DAILY, (Reported) Entered as Reported by: YOSSI NELSON on 03/03/19 1340 Hydrocodone/Acetaminophen (Tillman 10-325 Tablet) 1 Each Tablet, 1 TAB PO Q6- 8H PRN for PAIN-MODERATE (5-7), (Reported) Entered as Reported by: SHAMIR SALAZAR on 07/20/19 1612 Hydrocodone/Acetaminophen (Hydrocodone-Acetamin 5-325 mg) 1 Each Tablet, 1 TAB PO Q4H PRN for PAIN-MODERATE (5-7) Prescribed by: KAMRAN LINDQUIST on 10/20/20 1254 Hyoscyamine Sulfate (Hyoscyamine Sulfate) 0.125 Mg Tab.rapdis, 0.125 MG SL Q6H PRN for ABDOMINAL PAIN, (Reported) Entered as Reported by: JESÚS PHILLIPS on 07/23/16 1618 Ipratropium Manteno (Ipratropium Manteno) 0.2 Mg/1 Ml Solution, 1 VIAL NEB TID, (Reported) Entered as Reported by: JESÚS PHILLIPS on 03/07/15 1640 Loratadine (Loratadine) 10 Mg Tablet, 10 MG PO DAILY, (Reported) Entered as Reported by: JESÚS PHILLIPS on 03/07/15 1623 Metoprolol Succinate (Toprol Xl) 25 Mg Tab.er.24h, 25 MG PO DAILY Prescribed by: KAMRAN LINDQUIST on 03/31/20 1748 Montelukast Sodium (Montelukast Sodium) 10 Mg Tablet, 10 MG PO HS, (Reported) Entered as Reported by: MELISSA MONTERO on 05/18/17 1103 Oxycodone HCl/Acetaminophen (Percocet 5-325 mg Tablet) 1 Each Tablet, 1-2 TAB PO Q4H PRN for PAIN-MODERATE (5-7) Prescribed by: ALVA LAMAR on 12/03/192010 Pantoprazole Sodium (Pantoprazole Sodium) 40 Mg Tablet.dr, 40 MG PO DAILY, (Reported) Entered as Reported by: JESÚS PHILLIPS on 03/07/15 1623 Potassium Chloride (K-Tab ER) 10 Meq Tablet.er, 20 MEQ PO BID, (Reported) Entered as Reported by: YOSSI NELSON on 05/28/19 0952 Prednisone (Prednisone) 20 Mg Tab, 20 MG PO UD, (Reported) Entered as Reported by: SHAMIR SALAZAR on 07/20/19 1602 Promethazine HCl (Promethazine Tablet) 25 Mg Tablet, 25 MG PO Q6H PRN for NAUSEA/VOMITING-2ND LINE, (Reported) Entered as Reported by: YOSSI NELSON on 04/14/18 1053 Warfarin Sodium (Jantoven) 4 Mg Tablet, 4 MG PO MO,TU,TH,FR,SA@1800, (Reported) Entered as Reported by: YOSSI NELSON on 05/28/19 0952 Warfarin Sodium (Jantoven) 5 Mg Tablet, 5 MG PO SUN,SAT @1800, (Reported) Entered as Reported by: SHAMIR SALAZAR on 07/20/19 1602 Review of Systems Review of Systems Constitutional: no symptoms reported Eyes: No Symptoms Reported Ears, Nose, Mouth, Throat: no symptoms reported Respiratory: wheezing Cardiovascular: no symptoms reported Musculoskeletal: see HPI Skin: other (Bruising) Psychiatric/Neurological: No Symptoms Reported Past Bnrmjlv-Qkzfoy-Zwuyqk Hx Patient Social History Tobacco Use?: No Use of E-Cig and/or Vaping dev: No Substance use?: No Alcohol Use?: No Pt feels they are or have been: No Immunizations Up To Date Tetanus Booster (TDap): Unknown PED Vaccines UTD: No Influenza Vaccine Up-to-Date: No; Not Current Seasonal Allergies Seasonal Allergies: Yes Past Medical History Surgeries: Yes (C/S X2, KNEE SCOPE, SHOULDER SCOPE, d&C, BILAT ULNAR NERVE, VENA CAVA FILTE) Abdominal, Adenoidectomy, Section, Gallbladder, Hysterectomy, Orthopedic, Tonsillectomy, Tubal Ligation, Vascular Surgery Respiratory: Yes (O2 AT HS 2-3L/NC AND PRN--NOCTURNAL HYPOXIA; ) Asthma, Pneumonia, Chronic Bronchitis, Pulmonary Embolism, COPD Currently Using CPAP: No Currently Using BIPAP: No Cardiac: Yes (MULTIPLE DVT'S AND P.E.'S ) Chronic Edema/Swelling, Deep Vein Thrombosis, High Cholesterol, Hypertension, Peripheral Vascular Neurological: Yes Neuropathy 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, 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 Sexually Transmitted Disease: No HIV/AIDS: No 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: Yes Kidney Infection, Bladder Infection, Kidney Stones Gastrointestinal: Yes (MULTIPLE HERNIA REPAIRS; MULTIPLE EGD'S /COLONOSCOPIES/POLYPECTOMIES) Abdominal Hernia, Gastroesophageal Reflux, Chronic Constipation, Chronic Diarrhea, Hepatitis, Polyps, Hiatal Hernia, Irritable Bowel Musculoskeletal: Yes (MULTIPLE ORTHO SURGERIES) Arthritis Endocrine: Yes ("PRE-DIABETIC" ) HEENT: Yes (NASAL POLYPS REMOVED) Cataract Loss of Vision: Denies Hearing Impairment: Denies Cancer: No Did You Recieve Any Treatments: No Psychosocial: Yes Anxiety Integumentary: Yes (CHRONIC VENOUS STASIS DERMATITIS AND ULCERS. CELLULTITIS OF LEGS;TATTOOS ) Blood Disorders: Yes (DVT'S/PE'S; PROBABLE PROTEIN C DEFICIENCY) Adverse Reaction/Blood Tranf: No (HAS HAD BLOOD WITH NO PROBLEMS) Family Medical History Alcoholism Alcoholism Arthritis Asthma 19 MOTHER Cancer G8 BROTHER G8 SISTER Cancer of colon Cancer of mouth Cardiovascular disease Cataract Cataracts Chest pain Colon cancer Completed stroke Diabetes mellitus Family history: Allergy Family history: Arthritis Family history: Asthma Family history: Cardiovascular disease Family history: Coronary thrombosis Family history: Diabetes mellitus G8 BROTHER G8 SISTER Family history: Gastrointestinal disease Family history: Hypertension Family history: Thyroid disorder Headache Hearing loss Heart disease 19 MOTHER History of - anemia History of - respiratory disease Hypercholesterolemia Hypercholesterolemia Hypertension 19 FATHER Infertile Malignant neoplasm of lung Myocardial infarction Myocardial infarction Psychotic disorder Respiratory disorder Stroke No Family History of: AIDS Abdominal aortic aneurysm Abdominal aortic aneurysm Maxie's disease Maxie's disease Alzheimer's disease Aphasia Aphasia Congenital disease Congenital heart disease Congenital heart disease Congestive heart failure Coronary thrombosis Cystic fibrosis Cystic fibrosis Deafness or hearing loss Dementia Dementia Drug abuse Dysphagia Dysphasia Family history: Alzheimer's disease Family history: Breast disease Family history: Glaucoma Family history: Osteoporosis Fibrocystic disease of breast Gastroenteritis Glaucoma Headache disorder Hereditary disease History of - disorder History of drug abuse Human immunodeficiency virus (HIV) seropositivity Infertility Kidney disease Kidney disease Neoplasm Not obtainable due to adoption Osteoporosis Parkinson's disease Parkinson's disease Prostate cancer Psychosocial problem Seizure disorder Seizure disorder Severe allergy Thyroid disease Tuberculosis Tuberculosis Visual disorder Visual impairment Cancer, COPD, Vascular Disease SOCIAL HISTORY: -ETOH--RARE USE NOW, HISTORY OF HEAVY USE/ABUSE -DRUGS-HX OF IV COCAINE USE -SMOKED 1 PPD, QUIT 2000 PAST SURGICAL HISTORY: -C-SECTIONS 1981, 1985 -SHOULDER SURGERY 2007 -LEFT KNEE SURGERY 2008 -D&C 2008 -HYSTERECTOMY/BILATERAL SALPINGO-OOPHORECTOMY 2008 -VENA CAVA FILTER 2009 -EGD 2010 -VEIN STRIPPING IN LEGS 2012 -BILATERAL ELBOW/ULNAR NERVE SURGERY 2012 -MULTIPLE HERNIA REPAIRS -MULTIPLE EGD'S AND COLONOSCOPIES AND POLYPECTOMIES -TONSILLECTOMY/ADENOIDECTOMY -CHOLECYSTECTOMY -NASAL POLYPS REMOVED -BILATERAL LEG RADIOABLATION 06/2018 ADDITIONAL PAST MEDICAL HISTORY: -MULTIPLE DVT'S AND P.E.'S -CHRONIC VENOUS STASIS ULCERATIONS -LEG CELLULITIS Physical Exam Vital Signs Vital Signs - First Documented 03/02/21 13:47 Temp 36.7 Pulse 103 Resp 20 B/P (MAP) 191/118 (142) Pulse Ox 96 O2 Delivery Room Air Capillary Refill : Less Than 3 Seconds Height, Weight, BMI Height: 5'5.00" Weight: 184lbs. 5.0oz. 83.534556wy; 36.00 BMI Method:Stated General Appearance: WD/WN, no apparent distress HEENT: normal ENT inspection Cardiovascular: regular rate, rhythm, no edema, no murmur Respiratory: No crackles; wheezing Extremities: other (Mild tenderness in the left elbow and minor pain with range of motion of the elbow. More significant tenderness in the radial aspect of the left wrist. Decreased range of motion. Small hematoma on the dorsal aspect of this area. 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, no motor/sensory deficits, alert, normal mood/affect, oriented x 3 Skin: normal color, warm/dry, other (Bruising of affected areas) Sergio Coma Score Best Eye Response: (4) Open Spontaneously Best Verbal Response: (5) Oriented Best Motor Response: (6) Obeys Commands Sergio Total: 15 Progress/Results/Core Measures Results/Orders My Orders Orders - ALVA BENJAMIN MD Elbow, Left, 3 Views (03/02/21 14:00) Wrist, Left, 3 Views Or More (03/02/21 14:00) Knee, Right, 3 Views (03/02/21 14:30) Vital Signs/I&O 03/02/21 03/02/21 13:47 15:41 Temp 36.7 Pulse 103 97 Resp 20 20 B/P (MAP) 191/118 (142) 163/91 Pulse Ox 96 99 O2 Delivery Room Air Room Air Blood Pressure Mean: 142 Progress Progress Note : Progress Note Distal radius fracture noted. X-rays of the elbow knee were unremarkable for acute injury. Colles' splint was applied. Patient advised to follow-up with Dr. Rosen. She has hydrocodone at home and declined pain management in the ER since she will be driving home. Diagnostic Imaging Diagonstic Imaging: Xray Plain Films/CT/US/NM/MRI: elbow, knee, other (Left wrist) Comments NAME: SUJEY FELIZ [facility] REC#: [id number] PT STATUS: REG ER : 1960 PHYSICIAN: ALVA BENJAMIN MD ADMIT DATE: 03/02/21/ER Signed Date of Exam:03/02/21 ELBOW, LEFT, 3 VIEWS INDICATION: Elbow pain EXAMINATION: Left elbow 03/02/2021 FINDINGS: 3 views of the elbow FINDINGS: There is no evidence for an acute fracture or dislocation. The joint spaces are well maintained. There is no significant soft tissue swelling. IMPRESSION: No acute process. Dictated by: Dictated on workstation # [id number] Dict: 03/02/21 1420 Trans: 03/02/21 1519 [facility] [id number] Interpreted by: ROSA HERNANDEZ MD Electronically signed by: ROSA HERNANDEZ MD 03/02/211518 NAME: SUJEY FELIZ [facility] REC#: [id number] PT STATUS: DEP ER : 1960 PHYSICIAN: ALVA BENJAMIN MD ADMIT DATE: 03/02/21/ER Signed Date of Exam:03/02/21 WRIST, LEFT, 3 VIEWS OR MORE INDICATION: Wrist pain. TIME OF EXAM: 2:12 p.m. FINDINGS: Three views of the left wrist were obtained. There are some lucencies in the distal radius suggestive of distal radius fracture. No significant displacement or angulation is seen. Distal ulna is intact. There is chondrocalcinosis of the triangular fibrocartilage complex. Carpal bones are unremarkable. There are degenerative changes at the triscaphe and first CMC joints with joint space narrowing, sclerosis, and marginal osteophyte formation. IMPRESSION: Findings suggestive of a nondisplaced distal radius fracture. Dictated by: Dictated on workstation # [id number] Dict: 03/02/211422 Trans: 03/02/21 155 [id number] Interpreted by: ARISTEO ROWE MD Electronically signed by: ARISTEO ROWE MD 03/02/211551 NAME: SUJEY FELIZ Gerardo [facility] REC#: [id number] PT STATUS: DEP ER : 1960 PHYSICIAN: ALVA BENJAMIN MD ADMIT DATE: 03/02/21/ER Signed Date of Exam:03/02/21 KNEE, RIGHT, 3 VIEWS CLINICAL INDICATIONS: Patient had a leg cramp that caused her to fall landing on right knee and bracing her fall with her left arm. EXAM: X-ray of the right knee, 3 views. COMPARISON: None. FINDINGS: There is no acute fracture or dislocation. There is no knee effusion. There are tricompartmental spurs seen which is most pronounced in the medial compartment which are moderately hypertrophic. There is at least mild to moderate medial compartment narrowing on these nonweightbearing views. Vascular calcifications are seen. IMPRESSION: There is degenerative disease of the right knee but no acute fracture. Dictated by: Dictated on workstation # [id number] Dict: 03/02/21 1505 Trans: 03/02/21 1733 PJE [id number] Interpreted by: WILY COUGHLIN MD Electronically signed by: WILY COUGHLIN MD 03/02/21 1733 Departure Impression Primary Impression: Distal radius fracture, left Qualified Codes: S52.502A - Unspecified fracture of the lower end of left radius, initial encounter for closed fracture Additional Impressions: Contusion of right knee Qualified Codes: S80.01XA - Contusion of right knee, initial encounter Fall on same level Qualified Codes: W18.30XA - Fall on same level, unspecified, initial encounter Disposition: 01 HOME, SELF-CARE Condition: Improved Departure-Patient Inst. Decision time for Depature: 15:30 Referrals: LEAH WOLF MD (PCP/Family) Primary Care Physician HOWARD ROSEN MD Patient Instructions: Radius Fracture (DC) Add. Discharge Instructions: Keep your wrist in the splint as much as possible. Keep your splint clean and dry. Follow-up with Dr. Rosen soon as possible for further evaluation. Please call his clinic to make an appointment. Elevation on a soft surface and icing in 20-minute intervals should help with pain and swelling. You may use your hydrocodone as previously prescribed. 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 Perform stretching of your calves multiple times a day to help prevent cramps. Call with questions or concerns. Return to the ER if you have worsening symptoms. All discharge instructions reviewed with patient and/or family. Voiced understanding. Copy Copies To 1: HOWARD ROSEN MD Copies To 2: LEAH WOFL MD, JOSHUA T MD Mar 02, 2021 15:32
[2021-03-02 15:41] VITALS: BP 163/91
== END 2021-03-02 15:36 | disposition home or self-care (01) ==
LOC: EDUNIT# 13:29 → ER 13:32
DX: S52.502A Unspecified fracture of the lower end of left radius, initial encounter for closed fracture (principal); S80.01XA Contusion of right knee, initial encounter; I10 Essential (primary) hypertension; K21.9 Gastro-esophageal reflux disease without esophagitis; F41.9 Anxiety disorder, unspecified; J44.9 Chronic obstructive pulmonary disease, unspecified; Z86.711 Personal history of pulmonary embolism; Z86.718 Personal history of other venous thrombosis and embolism; Z79.01 Long term (current) use of anticoagulants; W18.30XA Fall on same level, unspecified, initial encounter
CPT/HCPCS: 73080; 73110; 73562

== ENCOUNTER → 2021-03-20 | Outpatient (CLI) | payer MEDICAID | LOC: WOUNDCARE 08:54 | PROVIDERS: ATTEND Family Medicine | DX: I87.322 Chronic venous hypertension (idiopathic) with inflammation of left lower extremity (principal); E11.622 Type 2 diabetes mellitus with other skin ulcer; L97.222 Non-pressure chronic ulcer of left calf with fat layer exposed; L03.116 Cellulitis of left lower limb | CPT/HCPCS: 99214 ==

== ENCOUNTER → 2021-03-24 | Outpatient (CLI) | payer MEDICAID | LOC: WOUNDCARE 09:41 | PROVIDERS: ATTEND Family Medicine | DX: I87.332 Chronic venous hypertension (idiopathic) with ulcer and inflammation of left lower extremity (principal); E11.622 Type 2 diabetes mellitus with other skin ulcer; L97.222 Non-pressure chronic ulcer of left calf with fat layer exposed; L03.116 Cellulitis of left lower limb; I89.0 Lymphedema, not elsewhere classified; E11.52 Type 2 diabetes mellitus with diabetic peripheral angiopathy with gangrene | CPT/HCPCS: 99213 ==

== ENCOUNTER 2021-03-25 12:14 | Emergency (ER) | payer MEDICAID ==
[~2021-03-25] VITALS: Ht 165 cm; Wt 100.0 kg
--- NOTE | 2021-03-25 12:42 | ED Lower Extremity ---
General Chief Complaint: Lower Extremity Stated Complaint: L LEG WOUND Source: patient Exam Limitations: no limitations History of Present Illness Date Seen by Provider: Mar 25, 2021 Time Seen by Provider: 12:30 Initial Comments Patient is a 60-year-old female who presents to the emergency department today with a chief complaint of some redness and increased tenderness to her left lower extremity. She has a history of chronic wounds and follows with wound car e. She states she was started on some antibiotics by the wound care physician last Saturday, cefdinir. She states she has been taking this daily. She states she saw wound care again yesterday because a couple of the wounds on her left lower leg were starting to drain. She was given a prescription for doxycycline but has not started it yet secondary to apprehension over possible side effects. Patient states she noted a little bit of increased redness just proximal to the inside of her left knee this morning. She was concerned about cellulitis. She denies any fevers, chills, increased shortness of breath, nausea. No other complaints of illness or injury. She is chronically anticoagulated on Coumadin with a history of protein C deficiency. All other review of systems reviewed and negative except as stated. Onset: this morning Severity: mild Pain/Injury Location: left thigh Allergies and Home Medications Allergies Coded Allergies: aspirin (Verified Allergy, Severe, ANAPHYLAXIS, 03/03/19) ibuprofen (Verified Allergy, Severe, ANAPHYLAXIS, 03/03/19) ketorolac (Verified Allergy, Severe, ANAPHYLAXIS, 03/03/19) tetanus and diphtheria toxoids (Unverified Allergy, Severe, ANAPHYLAXIS, 03/03/19) aloe (Verified Allergy, Mild, RASH, 03/03/19) latex (Verified Allergy, Mild, RASH, 03/03/19) OCCASIONALLY IS IRRITATING SKIN scopolamine (Verified Allergy, Mild, 03/03/19) iodine (Verified Adverse Reaction, Unknown, 03/03/19) Patient states she got dizzy, diaphoretic and saw stars. Uncoded Allergies: ALOE VERA (Allergy, Unknown, 12/23/05) SILK SUTURES (Adverse Reaction, Unknown, BODY REJECTS SUTURES, 10/07/13) Patient Home Medication List Home Medication List Reviewed: Yes Albuterol Sulfate (Proair Hfa) 8.5 Gm Hfa.aer.ad, 2 PUFF IH Q4H PRN for SHORTNESS OF BREATH, (Reported) Entered as Reported by: YOSSI NELSON on 08/10/15 1057 Albuterol Sulfate (Albuterol Sulfate) 2.5 Mg/3 Ml Vial.neb, 2.5 MG NEB Q2H PRN for SHORTNESS OF BREATH, (Reported) Entered as Reported by: YOSSI NELSON on 05/28/19 0952 Alprazolam (Alprazolam) 1 Mg Tablet, 1 MG PO BID PRN for ANXIETY, (Reported) Entered as Reported by: JESÚS PHILLIPS on 03/07/15 1623 Calcium Carbonate/Vitamin D3 (Calcium 600 + Vit D 800 Tab) 1 Each Tablet, 1 TAB PO BID, (Reported) Entered as Reported by: YOSSI NELSON on 06/05/17 0815 Cefprozil (Cefprozil) 500 Mg Tablet, 500 MG PO BID Prescribed by: KAMRAN LINDQUIST on 08/07/20 1327 Cefprozil (Cefprozil) 500 Mg Tablet, 500 MG PO BID Prescribed by: ALVA LAMAR on 10/12/20 1106 Cephalexin (Cephalexin) 500 Mg Tablet, 500 MG PO QID Prescribed by: STEPHANIE ECKERT on 11/22/20 2247 Cyclobenzaprine HCl (Cyclobenzaprine HCl) 5 Mg Tablet, 5 MG PO Q8H PRN for MUSCLE SPASMS Prescribed by: JULIO C MERINO on 12/05/19 1429 Epinephrine (Epipen) 0.3 Mg/0.3 Ml Auto.injct, 0.3 MG IJ PRN, (Reported) Entered as Reported by: OUMOU ROMANO on 07/21/19 1216 Fluticasone Propionate (Flovent Hfa 220 mcg) 1 Ea Aero, 2 PUFF INH BID, (Reported) Entered as Reported by: YOSSI NELSON on 03/03/19 1340 Furosemide (Furosemide) 40 Mg Tablet, 40 MG PO DAILY, (Reported) Entered as Reported by: YOSSI NELSON on 03/03/19 1340 Hydrocodone/Acetaminophen ([place] 10-325 Tablet) 1 Each Tablet, 1 TAB PO Q6- 8H PRN for PAIN-MODERATE (5-7), (Reported) Entered as Reported by: SHAMIR SALAZAR on 07/20/19 1612 Hydrocodone/Acetaminophen (Hydrocodone-Acetamin 5-325 mg) 1 Each Tablet, 1 TAB PO Q4H PRN for PAIN-MODERATE (5-7) Prescribed by: KAMRAN LINDQUIST on 10/20/20 1254 Hyoscyamine Sulfate (Hyoscyamine Sulfate) 0.125 Mg Tab.rapdis, 0.125 MG SL Q6H PRN for ABDOMINAL PAIN, (Reported) Entered as Reported by: JESÚS PHILLIPS on 07/23/16 1618 Ipratropium Mead (Ipratropium Mead) 0.2 Mg/1 Ml Solution, 1 VIAL NEB TID, (Reported) Entered as Reported by: JESÚS PHILLIPS on 03/07/15 1640 Loratadine (Loratadine) 10 Mg Tablet, 10 MG PO DAILY, (Reported) Entered as Reported by: JESÚS PHILLIPS on 03/07/15 1623 Metoprolol Succinate (Toprol Xl) 25 Mg Tab.er.24h, 25 MG PO DAILY Prescribed by: KAMRAN LINDQUIST on 03/31/20 1748 Montelukast Sodium (Montelukast Sodium) 10 Mg Tablet, 10 MG PO HS, (Reported) Entered as Reported by: MELISSA MONTERO on 05/18/17 1103 Oxycodone HCl/Acetaminophen (Percocet 5-325 mg Tablet) 1 Each Tablet, 1-2 TAB PO Q4H PRN for PAIN-MODERATE (5-7) Prescribed by: ALVA LAMAR on 12/03/192010 Pantoprazole Sodium (Pantoprazole Sodium) 40 Mg Tablet.dr, 40 MG PO DAILY, (Reported) Entered as Reported by: JESÚS PHILLIPS on 03/07/15 1623 Potassium Chloride (K-Tab ER) 10 Meq Tablet.er, 20 MEQ PO BID, (Reported) Entered as Reported by: YOSSI NELSON on 05/28/19 0952 Prednisone (Prednisone) 20 Mg Tab, 20 MG PO UD, (Reported) Entered as Reported by: SHAMIR SALAZAR on 07/20/19 1602 Promethazine HCl (Promethazine Tablet) 25 Mg Tablet, 25 MG PO Q6H PRN for NAUSEA/VOMITING-2ND LINE, (Reported) Entered as Reported by: YOSSI NELSON on 04/14/18 1053 Warfarin Sodium (Jantoven) 4 Mg Tablet, 4 MG PO MO,,TH,FR,SA@1800, (Reported) Entered as Reported by: YOSSI NELSON on 05/28/19 0952 Warfarin Sodium (Jantoven) 5 Mg Tablet, 5 MG PO SAT,SAT @1800, (Reported) Entered as Reported by: SHAMIR SALAZAR on 07/20/19 1602 Review of Systems Constitutional: see HPI EENTM: no symptoms reported Respiratory: no symptoms reported Cardiovascular: no symptoms reported Gastrointestinal: no symptoms reported 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: no symptoms reported : No Musculoskeletal: other (left leg discomfort) Skin: other (erythema left leg) All Other Systems Reviewed Negative Unless Noted: Yes Past Yjcyrdx-Zyaohq-Hcjrur Hx Patient Social History Tobacco Use?: No Substance use?: No Alcohol Use?: No Pt feels they are or have been: No Immunizations Up To Date Tetanus Booster (TDap): Unknown PED Vaccines UTD: No Seasonal Allergies Seasonal Allergies: Yes Past Medical History Surgeries: Yes (C/S X2, KNEE SCOPE, SHOULDER SCOPE, d&C, BILAT ULNAR NERVE, VENA CAVA FILTE) Abdominal, Adenoidectomy, Section, Gallbladder, Hysterectomy, Orthopedic, Tonsillectomy, Tubal Ligation, Vascular Surgery Respiratory: Yes (O2 AT HS 2-3L/NC AND PRN--NOCTURNAL HYPOXIA; ) Asthma, Pneumonia, Chronic Bronchitis, Pulmonary Embolism, COPD Currently Using CPAP: No Currently Using BIPAP: No Cardiac: Yes (MULTIPLE DVT'S AND P.E.'S ) Chronic Edema/Swelling, Deep Vein Thrombosis, High Cholesterol, Hypertension, Peripheral Vascular Neurological: Yes Neuropathy 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, 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 Sexually Transmitted Disease: No HIV/AIDS: No 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: Yes Kidney Infection, Bladder Infection, Kidney Stones Gastrointestinal: Yes (MULTIPLE HERNIA REPAIRS; MULTIPLE EGD'S /COLONOSCOPIES/POLYPECTOMIES) Abdominal Hernia, Gastroesophageal Reflux, Chronic Constipation, Chronic Diarrhea, Hepatitis, Polyps, Hiatal Hernia, Irritable Bowel Musculoskeletal: Yes (MULTIPLE ORTHO SURGERIES) Arthritis Endocrine: Yes ("PRE-DIABETIC" ) HEENT: Yes (NASAL POLYPS REMOVED) Cataract Loss of Vision: Denies Hearing Impairment: Denies Cancer: No Did You Recieve Any Treatments: No Psychosocial: Yes Anxiety Integumentary: Yes (CHRONIC VENOUS STASIS DERMATITIS AND ULCERS. CELLULTITIS OF LEGS;TATTOOS ) Blood Disorders: Yes (DVT'S/PE'S; PROBABLE PROTEIN C DEFICIENCY) Adverse Reaction/Blood Tranf: No (HAS HAD BLOOD WITH NO PROBLEMS) Family Medical History Alcoholism Alcoholism Arthritis Asthma 19 MOTHER Cancer G8 BROTHER G8 SISTER Cancer of colon Cancer of mouth Cardiovascular disease Cataract Cataracts Chest pain Colon cancer Completed stroke Diabetes mellitus Family history: Allergy Family history: Arthritis Family history: Asthma Family history: Cardiovascular disease Family history: Coronary thrombosis Family history: Diabetes mellitus G8 BROTHER G8 SISTER Family history: Gastrointestinal disease Family history: Hypertension Family history: Thyroid disorder Headache Hearing loss Heart disease 19 MOTHER History of - anemia History of - respiratory disease Hypercholesterolemia Hypercholesterolemia Hypertension 19 FATHER Infertile Malignant neoplasm of lung Myocardial infarction Myocardial infarction Psychotic disorder Respiratory disorder Stroke No Family History of: AIDS Abdominal aortic aneurysm Abdominal aortic aneurysm Fernando's disease Lonedell's disease Alzheimer's disease Aphasia Aphasia Congenital disease Congenital heart disease Congenital heart disease Congestive heart failure Coronary thrombosis Cystic fibrosis Cystic fibrosis Deafness or hearing loss Dementia Dementia Drug abuse Dysphagia Dysphasia Family history: Alzheimer's disease Family history: Breast disease Family history: Glaucoma Family history: Osteoporosis Fibrocystic disease of breast Gastroenteritis Glaucoma Headache disorder Hereditary disease History of - disorder History of drug abuse Human immunodeficiency virus (HIV) seropositivity Infertility Kidney disease Kidney disease Neoplasm Not obtainable due to adoption Osteoporosis Parkinson's disease Parkinson's disease Prostate cancer Psychosocial problem Seizure disorder Seizure disorder Severe allergy Thyroid disease Tuberculosis Tuberculosis Visual disorder Visual impairment Cancer, COPD, Vascular Disease SOCIAL HISTORY: -ETOH--RARE USE NOW, HISTORY OF HEAVY USE/ABUSE -DRUGS-HX OF IV COCAINE USE -SMOKED 1 PPD, QUIT 2000 PAST SURGICAL HISTORY: -C-SECTIONS 1981, 1985 -SHOULDER SURGERY 2007 -LEFT KNEE SURGERY 2008 -D&C 2008 -HYSTERECTOMY/BILATERAL SALPINGO-OOPHORECTOMY 2008 -VENA CAVA FILTER 2009 -EGD 2010 -VEIN STRIPPING IN LEGS 2012 -BILATERAL ELBOW/ULNAR NERVE SURGERY 2012 -MULTIPLE HERNIA REPAIRS -MULTIPLE EGD'S AND COLONOSCOPIES AND POLYPECTOMIES -TONSILLECTOMY/ADENOIDECTOMY -CHOLECYSTECTOMY -NASAL POLYPS REMOVED -BILATERAL LEG RADIOABLATION 06/2018 ADDITIONAL PAST MEDICAL HISTORY: -MULTIPLE DVT'S AND P.E.'S -CHRONIC VENOUS STASIS ULCERATIONS -LEG CELLULITIS Physical Exam Vital Signs Vital Signs - First Documented 03/25/21 12:20 Temp 36.5 Pulse 118 Resp 18 B/P (MAP) 157/96 (116) Pulse Ox 94 Capillary Refill : Height, Weight, BMI Height: 5'5.00" Weight: 184lbs. 5.0oz. 83.353205rr; 36.00 BMI Method:Stated General Appearance: WD/WN, no apparent distress Neck: full range of motion Cardiovascular: regular rate, rhythm Respiratory: lungs clear, normal breath sounds, no respiratory distress, no accessory muscle use Hips: bilateral hip non-tender, bilateral hip normal inspection, bilateral hip normal range of motion Legs: bilateral leg non-tender, bilateral leg normal inspection, bilateral leg normal range of motion Knees: bilateral knee non-tender, bilateral knee normal inspection, bilateral k nee normal range of motion Ankles: bilateral ankle non-tender, bilateral ankle normal inspection, bilatera l ankle normal range of motion Feet: bilateral foot non-tender, bilateral foot normal inspection, bilateral foot normal range of motion Neurologic/Psychiatric: alert, normal mood/affect, oriented x 3 Skin: warm/dry, other (Patient has changes consistent with venous stasis to bilateral lower extremities. She has 1-2+ edema bilateral lower extremities. 1 small area of shallow ulcer noted to the medial mid left distal extremity 1 small shallow ulcer noted to the lateral aspect of the mid distal left lower extremity. She has very faint erythema extending proximally from the medial right knee's, no significant increased warmth, this area is nontender.) Progress/Results/Core Measures Results/Orders Lab Results Laboratory Tests Test 03/25/21 13:08 Range/Units White Blood Count 8.2 4.3-11.0 10^3/uL Red Blood Count 4.49 3.80-5.11 10^6/uL Hemoglobin 12.4 11.5-16.0 g/dL Hematocrit 39 35-52 % Mean Corpuscular Volume 88 80-99 fL Mean Corpuscular Hemoglobin 28 25-34 pg Mean Corpuscular Hemoglobin Concent 32 32-36 g/dL Red Cell Distribution Width 15.9 H 10.0-14.5 % Platelet Count 272 130-400 10^3/uL Mean Platelet Volume 8.2 L 9.0-12.2 fL Immature Granulocyte % (Auto) 0 % Neutrophils (%) (Auto) 80 H 42-75 % Lymphocytes (%) (Auto) 14 12-44 % Monocytes (%) (Auto) 5 0-12 % Eosinophils (%) (Auto) 1 0-10 % Basophils (%) (Auto) 0 0-10 % Neutrophils # (Auto) 6.5 1.8-7.8 10^3/uL Lymphocytes # (Auto) 1.1 1.0-4.0 10^3/uL Monocytes # (Auto) 0.4 0.0-1.0 10^3/uL Eosinophils # (Auto) 0.1 0.0-0.3 10^3/uL Basophils # (Auto) 0.0 0.0-0.1 10^3/uL Immature Granulocyte # (Auto) 0.0 0.0-0.1 10^3/uL Prothrombin Time 28.6 H 12.2-14.7 SEC INR Comment 2.6 H 0.8-1.4 My Orders Orders - ROSALIND ANDREA MD Cbc With Automated Diff (03/25/21 12:37) Protime With Inr (03/25/21 12:37) Vital Signs/I&O 03/25/21 12:20 Temp 36.5 Pulse 118 Resp 18 B/P (MAP) 157/96 (116) Pulse Ox 94 Progress Progress Note : Time: 12:41 Progress Note Patient's vital signs are stable. I have advised her to go ahead and start taking the doxycycline as prescribed yesterday by her wound care physician. She has not yet taken any of it and therefore we have not had an opportunity to see if the addition of this medication will help to curb potential brewing cellulitis. She is afebrile, not nauseated, not short of breath. I have no clinical concerns for sepsis. We we will go ahead and let her take one of the doxycycline tablets here while monitoring her, checking a CBC and her INR. Patient is agreeable with this plan. 1355 Patient's labs reviewed, CBC is normal, INR is 2.6. Patient counseled on taking her doxycycline and following up next Saturday and Saturday as scheduled with wound care. She is comfortable with this plan of care. All questions are sought and answered. Patient is stable for discharge. Departure Impression Primary Impression: Cellulitis of left leg Disposition: 01 HOME, SELF-CARE Condition: Stable Departure-Patient Inst. Decision time for Depature: 13:55 Referrals: LEAH WOLF MD (PCP/Family) Primary Care Physician Patient Instructions: Cellulitis (Skin Infection), Adult ED Add. Discharge Instructions: Continue the antibiotics as prescribed by your wound care physician. Watch the area for signs of increasing redness, warmth, swelling and drainage. Follow-up next week as scheduled. Return to the emergency department if you develop any fevers over 101, nausea, increasing redness warmth or swelling or any other emergent concerning symptoms. ROSALIND ANDREA MD Mar 25, 2021 12:42
[2021-03-25 13:23] LABS: BASOPHILS % (AUTO) 0 % (0-10); EOSINOPHILS # (AUTO) 0.1 10^3/uL (0.0-0.3); EOSINOPHILS % (AUTO) 1 % (0-10); HEMATOCRIT 39 % (35-52); HEMOGLOBIN 12.4 g/dL (11.5-16.0); LYMPHOCYTES # (AUTO) 1.1 10^3/uL (1.0-4.0); LYMPHOCYTES % (AUTO) 14 % (12-44); MEAN CORPUSCULAR HEMOGLOBIN 28 pg (25-34); MEAN CORPUSCULAR HGB CONC 32 g/dL (32-36); MEAN CORPUSCULAR VOLUME 88 fL (80-99); MEAN PLATELET VOLUME 8.2 fL (9.0-12.2); MONOCYTES # (AUTO) 0.4 10^3/uL (0.0-1.0); MONOCYTES % (AUTO) 5 % (0-12); NEUTROPHILS # (AUTO) 6.5 10^3/uL (1.8-7.8); NEUTROPHILS % (AUTO) 80 % (42-75); PLATELET COUNT 272 10^3/uL (130-400); WHITE BLOOD COUNT 8.2 10^3/uL (4.3-11.0)
[2021-03-25 13:37] LABS: INR 2.6 (0.8-1.4); PROTHROMBIN TIME PATIENT 28.6 SEC (12.2-14.7)
[2021-03-25 14:13] VITALS: BP 145/88
== END 2021-03-25 14:13 | disposition home or self-care (01) ==
LOC: EDUNIT# 12:14 → ER 12:16
DX: L03.116 Cellulitis of left lower limb (principal); J44.9 Chronic obstructive pulmonary disease, unspecified; I10 Essential (primary) hypertension; K21.9 Gastro-esophageal reflux disease without esophagitis; F41.9 Anxiety disorder, unspecified; Z86.711 Personal history of pulmonary embolism; Z86.718 Personal history of other venous thrombosis and embolism; Z79.01 Long term (current) use of anticoagulants; Z79.899 Other long term (current) drug therapy
CPT/HCPCS: 36415; 85025; 85610; 99283

== ENCOUNTER → 2021-03-31 | Outpatient (CLI) | payer MEDICAID | LOC: WOUNDCARE 08:26 | PROVIDERS: ATTEND Family Medicine | DX: I87.332 Chronic venous hypertension (idiopathic) with ulcer and inflammation of left lower extremity (principal); E11.622 Type 2 diabetes mellitus with other skin ulcer; L97.222 Non-pressure chronic ulcer of left calf with fat layer exposed; I89.0 Lymphedema, not elsewhere classified; E11.52 Type 2 diabetes mellitus with diabetic peripheral angiopathy with gangrene | CPT/HCPCS: 29581 ==

== ENCOUNTER → 2021-04-04 | Outpatient (CLI) | payer MEDICAID ==
[~2021-04-04] MED LIST changes: +MONT-40 PO; -MONT10TA32 PO; +POTA-179 PO
== END ==
LOC: WOUNDCARE 08:23
PROVIDERS: ATTEND Family Medicine
DX: I87.332 Chronic venous hypertension (idiopathic) with ulcer and inflammation of left lower extremity (principal); E11.622 Type 2 diabetes mellitus with other skin ulcer; E11.52 Type 2 diabetes mellitus with diabetic peripheral angiopathy with gangrene; L97.222 Non-pressure chronic ulcer of left calf with fat layer exposed; I89.0 Lymphedema, not elsewhere classified
CPT/HCPCS: 29581

== ENCOUNTER → 2021-04-11 | Outpatient (CLI) | payer MEDICAID | LOC: WOUNDCARE 08:07 | PROVIDERS: ATTEND Family Medicine | DX: I87.332 Chronic venous hypertension (idiopathic) with ulcer and inflammation of left lower extremity (principal); E11.622 Type 2 diabetes mellitus with other skin ulcer; L97.222 Non-pressure chronic ulcer of left calf with fat layer exposed; I89.0 Lymphedema, not elsewhere classified; E11.52 Type 2 diabetes mellitus with diabetic peripheral angiopathy with gangrene | CPT/HCPCS: 29581 ==

== ENCOUNTER → 2021-04-18 | Outpatient (CLI) | payer MEDICAID | LOC: WOUNDCARE 08:19 | PROVIDERS: ATTEND Family Medicine | DX: I87.332 Chronic venous hypertension (idiopathic) with ulcer and inflammation of left lower extremity (principal); E11.622 Type 2 diabetes mellitus with other skin ulcer; L97.222 Non-pressure chronic ulcer of left calf with fat layer exposed; I89.0 Lymphedema, not elsewhere classified; E11.52 Type 2 diabetes mellitus with diabetic peripheral angiopathy with gangrene | CPT/HCPCS: 29581 ==

== ENCOUNTER 2021-04-23 13:34 | Emergency (ER) | payer MEDICAID ==
[~2021-04-23] VITALS: Ht 165 cm; Wt 100.0 kg
--- NOTE | 2021-04-23 13:58 | ED Lower Extremity ---
General Chief Complaint: Trauma-Non Activation Stated Complaint: FALL/ RIGHT KNEE PAIN Nursing Triage Note: AMB TO ROOM WITH BROTHERS. REPORTS WAS WALKING IN [place] AND TRIPPED ON EDGE OF SIDEWALK AND FELL. C/O R KNEE PAIN BRUSING NOTED TO KNEE. Source: patient Exam Limitations: no limitations History of Present Illness Date Seen by Provider: Apr 23, 2021 Time Seen by Provider: 13:57 Initial Comments To ER by private vehicle with reports of right knee pain after she fell onto a flexed right knee just prior to arrival. Onset: just prior to arrival Severity: moderate Pain/Injury Location: right knee Method of Injury: fell Modifying Factors: Worse With Movement Allergies and Home Medications Allergies Coded Allergies: aspirin (Verified Allergy, Severe, ANAPHYLAXIS, 03/03/19) ibuprofen (Verified Allergy, Severe, ANAPHYLAXIS, 03/03/19) ketorolac (Verified Allergy, Severe, ANAPHYLAXIS, 03/03/19) tetanus and diphtheria toxoids (Unverified Allergy, Severe, ANAPHYLAXIS, 03/03/19) aloe (Verified Allergy, Mild, RASH, 03/03/19) latex (Verified Allergy, Mild, RASH, 03/03/19) OCCASIONALLY IS IRRITATING SKIN scopolamine (Verified Allergy, Mild, 03/03/19) iodine (Verified Adverse Reaction, Unknown, 03/03/19) Patient states she got dizzy, diaphoretic and saw stars. Uncoded Allergies: ALOE VERA (Allergy, Unknown, 12/23/05) SILK SUTURES (Adverse Reaction, Unknown, BODY REJECTS SUTURES, 10/07/13) Patient Home Medication List Home Medication List Reviewed: Yes Albuterol Sulfate (Proair Hfa) 8.5 Gm Hfa.aer.ad, 2 PUFF IH Q4H PRN for SHORTNESS OF BREATH, (Reported) Entered as Reported by: YOSSI NELSON on 08/10/15 1057 Albuterol Sulfate (Albuterol Sulfate) 2.5 Mg/3 Ml Vial.neb, 2.5 MG NEB Q2H PRN for SHORTNESS OF BREATH, (Reported) Entered as Reported by: YOSSI NELSON on 05/28/19 0952 Alprazolam (Alprazolam) 1 Mg Tablet, 1 MG PO BID PRN for ANXIETY, (Reported) Entered as Reported by: JESÚS PHILLIPS on 03/07/15 1623 Calcium Carbonate/Vitamin D3 (Calcium 600 + Vit D 800 Tab) 1 Each Tablet, 1 TAB PO BID, (Reported) Entered as Reported by: YOSSI NELSON on 06/05/17 0815 Cefprozil (Cefprozil) 500 Mg Tablet, 500 MG PO BID Prescribed by: KAMRAN LINDQUIST on 08/07/20 1327 Cefprozil (Cefprozil) 500 Mg Tablet, 500 MG PO BID Prescribed by: ALVA LAMAR on 10/12/20 1106 Cephalexin (Cephalexin) 500 Mg Tablet, 500 MG PO QID Prescribed by: STEPHANIE ECKERT on 11/22/20 2247 Cyclobenzaprine HCl (Cyclobenzaprine HCl) 5 Mg Tablet, 5 MG PO Q8H PRN for MUSCLE SPASMS Prescribed by: JULIO C MERINO on 12/05/19 1429 Epinephrine (Epipen) 0.3 Mg/0.3 Ml Auto.injct, 0.3 MG IJ PRN, (Reported) Entered as Reported by: OUMOU ROMANO on 07/21/19 1216 Fluticasone Propionate (Flovent Hfa 220 mcg) 1 Ea Aero, 2 PUFF INH BID, (Reported) Entered as Reported by: YOSSI NELSON on 03/03/19 1340 Furosemide (Furosemide) 40 Mg Tablet, 40 MG PO DAILY, (Reported) Entered as Reported by: YOSSI NELSON on 03/03/19 1340 Hydrocodone/Acetaminophen ([place] 10-325 Tablet) 1 Each Tablet, 1 TAB PO Q6- 8H PRN for PAIN-MODERATE (5-7), (Reported) Entered as Reported by: SHAMIR SALAZAR on 07/20/19 1612 Hydrocodone/Acetaminophen (Hydrocodone-Acetamin 5-325 mg) 1 Each Tablet, 1 TAB PO Q4H PRN for PAIN-MODERATE (5-7) Prescribed by: KAMRAN LINDQUIST on 10/20/20 1254 Hyoscyamine Sulfate (Hyoscyamine Sulfate) 0.125 Mg Tab.rapdis, 0.125 MG SL Q6H PRN for ABDOMINAL PAIN, (Reported) Entered as Reported by: JESÚS PHILLIPS on 07/23/16 1618 Ipratropium Dille (Ipratropium Dille) 0.2 Mg/1 Ml Solution, 1 VIAL NEB TID, (Reported) Entered as Reported by: JESÚS PHILLIPS on 03/07/15 1640 Loratadine (Loratadine) 10 Mg Tablet, 10 MG PO DAILY, (Reported) Entered as Reported by: JESÚS PHILLIPS on 03/07/15 162 Metoprolol Succinate (Toprol Xl) 25 Mg Tab.er.24h, 25 MG PO DAILY Prescribed by: KAMRAN LINDQUIST on 03/31/20 1748 Montelukast Sodium (Montelukast Sodium) 10 Mg Tablet, 10 MG PO HS, (Reported) Entered as Reported by: MELISSA MONTERO on 05/18/17 1103 Oxycodone HCl/Acetaminophen (Percocet 5-325 mg Tablet) 1 Each Tablet, 1-2 TAB PO Q4H PRN for PAIN-MODERATE (5-7) Prescribed by: ALVA LAMAR on 12/03/192010 Pantoprazole Sodium (Pantoprazole Sodium) 40 Mg Tablet.dr, 40 MG PO DAILY, (Reported) Entered as Reported by: JESÚS PHILLIPS on 03/07/15 162 Potassium Chloride (K-Tab ER) 10 Meq Tablet.er, 20 MEQ PO BID, (Reported) Entered as Reported by: YOSSI NELSON on 05/28/19 0952 Prednisone (Prednisone) 20 Mg Tab, 20 MG PO UD, (Reported) Entered as Reported by: SHAMIR SALAZAR on 07/20/19 160 Promethazine HCl (Promethazine Tablet) 25 Mg Tablet, 25 MG PO Q6H PRN for NAUSEA/VOMITING-2ND LINE, (Reported) Entered as Reported by: YOSSI NELSON on 04/14/18 1053 Warfarin Sodium (Jantoven) 4 Mg Tablet, 4 MG PO MO,,,FR,SA@1800, (Reported) Entered as Reported by: YOSSI NELSON on 05/28/19 0952 Warfarin Sodium (Jantoven) 5 Mg Tablet, 5 MG PO SAT,SAT @1800, (Reported) Entered as Reported by: SHAMIR SALAZAR on 07/20/19 1602 Review of Systems Constitutional: see HPI EENTM: see HPI Respiratory: no symptoms reported Cardiovascular: no symptoms reported 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: no symptoms reported Musculoskeletal: see HPI Skin: no symptoms reported Psychiatric/Neurological: No Symptoms Reported Past Jfrfbtw-Xafgsg-Nqyzwu Hx Immunizations Up To Date Tetanus Booster (TDap): Unknown PED Vaccines UTD: No Seasonal Allergies Seasonal Allergies: Yes Past Medical History Surgeries: Yes (C/S X2, KNEE SCOPE, SHOULDER SCOPE, d&C, BILAT ULNAR NERVE, VENA CAVA FILTE) Abdominal, Adenoidectomy, Section, Gallbladder, Hysterectomy, Orthopedic, Tonsillectomy, Tubal Ligation, Vascular Surgery Respiratory: Yes (O2 AT HS 2-3L/NC AND PRN--NOCTURNAL HYPOXIA; ) Asthma, Pneumonia, Chronic Bronchitis, Pulmonary Embolism, COPD Currently Using CPAP: No Currently Using BIPAP: No Cardiac: Yes (MULTIPLE DVT'S AND P.E.'S ) Chronic Edema/Swelling, Deep Vein Thrombosis, High Cholesterol, Hypertension, Peripheral Vascular Neurological: Yes Neuropathy 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 Disorders: Yes [employer] History: Hysterectomy, Menopausal Sexually Transmitted Disease: No HIV/AIDS: No 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: Yes Kidney Infection, Bladder Infection, Kidney Stones Gastrointestinal: Yes (MULTIPLE HERNIA REPAIRS; MULTIPLE EGD'S /COLONOSCOPIES/POLYPECTOMIES) Abdominal Hernia, Gastroesophageal Reflux, Chronic Constipation, Chronic Diarrhea, Hepatitis, Polyps, Hiatal Hernia, Irritable Bowel Musculoskeletal: Yes (MULTIPLE ORTHO SURGERIES) Arthritis Endocrine: Yes ("PRE-DIABETIC" ) HEENT: Yes (NASAL POLYPS REMOVED) Cataract Loss of Vision: Denies Hearing Impairment: Denies Cancer: No Did You Recieve Any Treatments: No Psychosocial: Yes Anxiety Integumentary: Yes (CHRONIC VENOUS STASIS DERMATITIS AND ULCERS. CELLULTITIS OF LEGS;TATTOOS ) Blood Disorders: Yes (DVT'S/PE'S; PROBABLE PROTEIN C DEFICIENCY) Adverse Reaction/Blood Tranf: No (HAS HAD BLOOD WITH NO PROBLEMS) Family Medical History Alcoholism Alcoholism Arthritis Asthma 19 MOTHER Cancer G8 BROTHER G8 SISTER Cancer of colon Cancer of mouth Cardiovascular disease Cataract Cataracts Chest pain Colon cancer Completed stroke Diabetes mellitus Family history: Allergy Family history: Arthritis Family history: Asthma Family history: Cardiovascular disease Family history: Coronary thrombosis Family history: Diabetes mellitus G8 BROTHER G8 SISTER Family history: Gastrointestinal disease Family history: Hypertension Family history: Thyroid disorder Headache Hearing loss Heart disease 19 MOTHER History of - anemia History of - respiratory disease Hypercholesterolemia Hypercholesterolemia Hypertension 19 FATHER Infertile Malignant neoplasm of lung Myocardial infarction Myocardial infarction Psychotic disorder Respiratory disorder Stroke No Family History of: AIDS Abdominal aortic aneurysm Abdominal aortic aneurysm [place]'s disease Fernando's disease Alzheimer's disease Aphasia Aphasia Congenital disease Congenital heart disease Congenital heart disease Congestive heart failure Coronary thrombosis Cystic fibrosis Cystic fibrosis Deafness or hearing loss Dementia Dementia Drug abuse Dysphagia Dysphasia Family history: Alzheimer's disease Family history: Breast disease Family history: Glaucoma Family history: Osteoporosis Fibrocystic disease of breast Gastroenteritis Glaucoma Headache disorder Hereditary disease History of - disorder History of drug abuse Human immunodeficiency virus (HIV) seropositivity Infertility Kidney disease Kidney disease Neoplasm Not obtainable due to adoption Osteoporosis Parkinson's disease Parkinson's disease Prostate cancer Psychosocial problem Seizure disorder Seizure disorder Severe allergy Thyroid disease Tuberculosis Tuberculosis Visual disorder Visual impairment Cancer, COPD, Vascular Disease SOCIAL HISTORY: -ETOH--RARE USE NOW, HISTORY OF HEAVY USE/ABUSE -DRUGS-HX OF IV COCAINE USE -SMOKED 1 PPD, QUIT 2000 PAST SURGICAL HISTORY: -C-SECTIONS 1981, 1985 -SHOULDER SURGERY 2007 -LEFT KNEE SURGERY 2008 -D&C 2008 -HYSTERECTOMY/BILATERAL SALPINGO-OOPHORECTOMY 2008 -VENA CAVA FILTER 2009 -EGD 2010 -VEIN STRIPPING IN LEGS 2012 -BILATERAL ELBOW/ULNAR NERVE SURGERY 2012 -MULTIPLE HERNIA REPAIRS -MULTIPLE EGD'S AND COLONOSCOPIES AND POLYPECTOMIES -TONSILLECTOMY/ADENOIDECTOMY -CHOLECYSTECTOMY -NASAL POLYPS REMOVED -BILATERAL LEG RADIOABLATION 06/2018 ADDITIONAL PAST MEDICAL HISTORY: -MULTIPLE DVT'S AND P.E.'S -CHRONIC VENOUS STASIS ULCERATIONS -LEG CELLULITIS Physical Exam Vital Signs Vital Signs - First Documented 04/23/21 13:43 Pulse 100 Resp 18 B/P (MAP) 133/83 (100) Pulse Ox 95 O2 Delivery Room Air Capillary Refill : Less Than 3 Seconds Height, Weight, BMI Height: 5'5.00" Weight: 184lbs. 5.0oz. 83.752420ga; 36.00 BMI Method:Stated General Appearance: WD/WN, no apparent distress HEENT: PERRL/EOMI, normal ENT inspection Respiratory: no respiratory distress, no accessory muscle use Hips: bilateral hip non-tender, bilateral hip normal inspection, bilateral hip normal range of motion Legs: bilateral leg non-tender, bilateral leg normal inspection, bilateral leg normal range of motion Knees: right knee other (Ecchymosis over the right anterior knee with intact skin) Ankles: bilateral ankle non-tender, bilateral ankle normal inspection, bilateral ankle normal range of motion Feet: bilateral foot non-tender, bilateral foot normal inspection, bilateral foot normal range of motion Neurologic/Psychiatric: alert, normal mood/affect, oriented x 3 Skin: normal color, warm/dry Progress/Results/Core Measures Results/Orders My Orders Orders - KAMRAN LINDQUIST APRN Knee, Right, 3 Views (04/23/21 13:56) Vital Signs/I&O 04/23/21 13:43 Pulse 100 Resp 18 B/P (MAP) 133/83 (100) Pulse Ox 95 O2 Delivery Room Air Blood Pressure Mean: 100 Departure Communication (Admissions) She has no tenderness to palpation over the proximal fibula. All of her pain is directly over the patella. However on one of the 3 views of the knee x-ray the proximal fibula does look irregular. I will put her in a knee immobilizer and have her follow-up with primary care. She has hydrocodone at home for pain. NAME: SUJEY FELIZ [facility] REC#: [id number] PT STATUS: REG ER : 1960 PHYSICIAN: KAMRAN LINDQUIST APRN ADMIT DATE: 04/23/21/ER Draft Date of Exam:04/23/21 KNEE, RIGHT, 3 VIEWS EXAMINATION: Right knee 3 views HISTORY: Knee injury COMPARISON: 03/02/2021 FINDINGS: There is mild medial compartment osteoarthritis. There is irregularity of the proximal fibula only seen on one view which may represent a nondisplaced fracture. Otherwise, no fracture is seen. No joint effusion. IMPRESSION: 1. Irregularity of the proximal fibula only seen on one view may represent a nondisplaced fracture, correlate with focal tenderness. Dictated on workstation # [id number] Dict: 04/23/21 1429 Trans: 04/23/21 1433 [facility] [id number] Interpreted by: JOSE VALLE MD Electronically signed by: Impression Primary Impression: Contusion of right knee Disposition: 01 HOME, SELF-CARE Condition: Stable Departure-Patient Inst. Decision time for Depature: 14:37 Referrals: LEAH WOLF MD (PCP/Family) Primary Care Physician Patient Instructions: Fibula Fracture Add. Discharge Instructions: 1. Wear the knee immobilizer for the next few days. Whenever the pain subsides you can take it off. Ice pack to the knee 30 minutes every couple of hours. Follow-up with primary care this week. Return to ER for any worsening. All discharge instructions reviewed with patient and/or family. Voiced understanding. KAMRAN LINDQUIST TUNNELING MACHINE OPERATOR Apr 23, 2021 13:58
--- NOTE | 2021-04-23 14:33 | Diagnostic Imaging Report ---
EXAMINATION: Right knee 3 views HISTORY: Knee injury COMPARISON: 03/02/2021 FINDINGS: There is mild medial compartment osteoarthritis. There is irregularity of the proximal fibula only seen on one view which may represent a nondisplaced fracture. Otherwise, no fracture is seen. No joint effusion. IMPRESSION: 1. Irregularity of the proximal fibula only seen on one view may represent a nondisplaced fracture, correlate with focal tenderness. Dictated by: Dictated on workstation # [id number]
[2021-04-23 15:01] VITALS: BP 133/83
== END 2021-04-23 15:00 | disposition home or self-care (01) ==
LOC: EDUNIT# 13:34 → ER 13:38
DX: S80.01XA Contusion of right knee, initial encounter (principal); J44.9 Chronic obstructive pulmonary disease, unspecified; I10 Essential (primary) hypertension; K21.9 Gastro-esophageal reflux disease without esophagitis; F41.9 Anxiety disorder, unspecified; Z86.711 Personal history of pulmonary embolism; Z86.718 Personal history of other venous thrombosis and embolism; Z79.01 Long term (current) use of anticoagulants; Z79.899 Other long term (current) drug therapy; W01.0XXA Fall on same level from slipping, tripping and stumbling without subsequent striking against object, initial encounter
CPT/HCPCS: 73562; 99282

== ENCOUNTER 2021-04-26 10:04 | Outpatient (RCR) | payer MEDICAID ==
[2021-04-11 08:23] LABS: INR 3.3 (0.8-1.4)
[2021-04-26 10:30] LABS: INR 2.2 (0.8-1.4); PROTHROMBIN TIME PATIENT 25.3 SEC (12.2-14.7)
== END 2021-05-12 | disposition home or self-care (01) ==
LOC: LAB 10:04
PROVIDERS: ATTEND Family Medicine
DX: Z86.718 Personal history of other venous thrombosis and embolism (principal); Z86.711 Personal history of pulmonary embolism
CPT/HCPCS: 36415; 83036; 85610

== ENCOUNTER → 2021-04-26 | Outpatient (CLI) | payer MEDICAID | LOC: WOUNDCARE 09:28 | PROVIDERS: ATTEND Family Medicine | DX: I89.0 Lymphedema, not elsewhere classified (principal); I87.303 Chronic venous hypertension (idiopathic) without complications of bilateral lower extremity | CPT/HCPCS: 29581 ==

== ENCOUNTER → 2021-05-01 | Outpatient (CLI) | payer MEDICAID | LOC: LAB 12:59 | PROVIDERS: ATTEND Family Medicine | DX: U07.1 COVID-19 (principal) | CPT/HCPCS: 36415; 86769 ==

== ENCOUNTER 2021-05-03 09:29 | Emergency (ER) | payer MEDICAID ==
[~2021-05-03] VITALS: Ht 165 cm; Wt 99.3 kg
[2021-05-03 10:12] LABS: BASOPHILS % (AUTO) 0 % (0-10); EOSINOPHILS # (AUTO) 0.4 10^3/uL (0.0-0.3); EOSINOPHILS % (AUTO) 4 % (0-10); HEMATOCRIT 42 % (35-52); LYMPHOCYTES # (AUTO) 1.2 10^3/uL (1.0-4.0); LYMPHOCYTES % (AUTO) 14 % (12-44); MEAN CORPUSCULAR HEMOGLOBIN 28 pg (25-34); MEAN CORPUSCULAR HGB CONC 31 g/dL (32-36); MEAN CORPUSCULAR VOLUME 89 fL (80-99); MEAN PLATELET VOLUME 8.5 fL (9.0-12.2); MONOCYTES # (AUTO) 0.5 10^3/uL (0.0-1.0); MONOCYTES % (AUTO) 6 % (0-12); NEUTROPHILS # (AUTO) 6.6 10^3/uL (1.8-7.8); NEUTROPHILS % (AUTO) 75 % (42-75); PLATELET COUNT 282 10^3/uL (130-400); WHITE BLOOD COUNT 8.7 10^3/uL (4.3-11.0)
[2021-05-03 10:22] LABS: POTASSIUM 3.8 MMOL/L (3.6-5.0)
[2021-05-03 10:23] LABS: CALCIUM 9.4 MG/DL (8.5-10.1)
[2021-05-03 10:24] LABS: TOTAL PROTEIN 7.7 GM/DL (6.4-8.2)
[2021-05-03 10:26] LABS: BILIRUBIN,TOTAL 0.4 MG/DL (0.1-1.0)
[2021-05-03 10:28] LABS: CREATININE SERUM 0.69 MG/DL (0.60-1.30)
[2021-05-03 10:29] LABS: INR 2.1 (0.8-1.4); PROTHROMBIN TIME PATIENT 23.8 SEC (12.2-14.7)
--- NOTE | 2021-05-03 10:42 | Diagnostic Imaging Report ---
INDICATION: Chronic shortness of breath which has increased. FINDINGS: The upright portable chest shows the heart size to be upper normal. The vascularity is normal. There is flattening of the diaphragms, consistent with COPD. There is linear atelectasis in the left lower lung medially with no alveolar infiltrate seen within either lung. There is no effusion. IMPRESSION: There has been improved aeration of the lung bases since a prior study from 02/26/2021. There is some atelectasis on the left. No alveolar infiltrate is seen. Dictated by: Dictated on workstation # [id number]
--- NOTE | 2021-05-03 11:26 | ED Respiratory ---
General Chief Complaint: Respiratory Problems Stated Complaint: SOB,COUGH,COPD Nursing Triage Note: PT AMBULATORY TO ER. PT C/O WORSENING SOB, HX OF COPD. WEARS O2 AT NIGHT. UPON ARRIVAL TO ER ROOM, PT 02 SAT 85% ON RA. REPORTS SOB WORSE WITH ANY TYPE OF EXERTION. PT PLACED ON 02 AT 2 L VIA NC, SAT'S IMPROVED TO 98%. (STEPHANIE GREENWOOD) History of Present Illness Date Seen by Provider: May 03, 2021 Time Seen by Provider: 11:15 Initial Comments 60-year old female with history of COPD reports for cough and shortness of air. She usually only wears oxygen at night at 2 L but lately has been needing it during the day with activities. She has been using her nebulized breathing treatments as prescribed using her rescue inhaler of Proventil 2 times daily. She is due to have her allergy shot today. She has not been vaccinated for Covid or influenza due to an anaphylactic reaction when she had her last tetanus vaccine. She has been very cautious to wear a mask at all times and limit her exposure. She denies any fevers. She has not attempted to see her primary care provider. Upon presentation and walking to exam room, her SaO2's were in the upper 80s, she was placed on oxygen at 2 L per nasal cannula and they quickly roopa to 94 to 96% she is maintaining 92% or greater on room air. Timing/Duration: yesterday Prior Episodes/Possible Cause: frequent episodes Modifying Factors: Improves With Albuterol Inhaler, Improves With Albuterol Nebulizer, Improves With Oxygen, Improves With Rest Associated Symptoms: No chest pain/soreness; cough; No dizziness, No earache, No facial pain, No fever/chills, No headache, No lightheadedness, No muscle aches, No nasal congestion, No nasal drainage; shortness of breath; No sinus infection, No sore throat, No wheezing (STEPHANIE GREENWOOD) Allergies and Home Medications Allergies Coded Allergies: aspirin (Verified Allergy, Severe, ANAPHYLAXIS, 03/03/19) ibuprofen (Verified Allergy, Severe, ANAPHYLAXIS, 03/03/19) ketorolac (Verified Allergy, Severe, ANAPHYLAXIS, 03/03/19) tetanus and diphtheria toxoids (Unverified Allergy, Severe, ANAPHYLAXIS, 03/03/19) aloe (Verified Allergy, Mild, RASH, 03/03/19) latex (Verified Allergy, Mild, RASH, 03/03/19) OCCASIONALLY IS IRRITATING SKIN scopolamine (Verified Allergy, Mild, 03/03/19) iodine (Verified Adverse Reaction, Unknown, 03/03/19) Patient states she got dizzy, diaphoretic and saw stars. Uncoded Allergies: ALOE VERA (Allergy, Unknown, 12/23/05) SILK SUTURES (Adverse Reaction, Unknown, BODY REJECTS SUTURES, 10/07/13) Patient Home Medication List Home Medication List Reviewed: Yes (STEPHANIE GREENWOOD) Albuterol Sulfate (Proair Hfa) 8.5 Gm Hfa.aer.ad, 2 PUFF IH Q4H PRN for SHORTNESS OF BREATH, (Reported) Entered as Reported by: YOSSI NELSON on 08/10/15 1057 Albuterol Sulfate (Albuterol Sulfate) 2.5 Mg/3 Ml Vial.neb, 2.5 MG NEB Q2H PRN for SHORTNESS OF BREATH, (Reported) Entered as Reported by: YOSSI NELSON on 05/28/19 0952 Alprazolam (Alprazolam) 1 Mg Tablet, 1 MG PO BID PRN for ANXIETY, (Reported) Entered as Reported by: JESÚS PHILLIPS on 03/07/15 1623 Calcium Carbonate/Vitamin D3 (Calcium 600 + Vit D 800 Tab) 1 Each Tablet, 1 TAB PO BID, (Reported) Entered as Reported by: YOSSI NELSON on 06/05/17 0815 Cefprozil (Cefprozil) 500 Mg Tablet, 500 MG PO BID Prescribed by: KAMRAN LINDQUIST on 08/07/20 1327 Cefprozil (Cefprozil) 500 Mg Tablet, 500 MG PO BID Prescribed by: ALVA LAMAR on 10/12/20 1106 Cephalexin (Cephalexin) 500 Mg Tablet, 500 MG PO QID Prescribed by: STEHPANIE ECKERT on 11/22/20 2247 Cyclobenzaprine HCl (Cyclobenzaprine HCl) 5 Mg Tablet, 5 MG PO Q8H PRN for MUSCLE SPASMS Prescribed by: JULIO C MERINO on 12/05/19 1429 Epinephrine (Epipen) 0.3 Mg/0.3 Ml Auto.injct, 0.3 MG IJ PRN, (Reported) Entered as Reported by: OUMOU ROMANO on 07/21/19 1216 Fluticasone Propionate (Flovent Hfa 220 mcg) 1 Ea Aero, 2 PUFF INH BID, (Reported) Entered as Reported by: YOSSI NELSON on 03/03/19 1340 Furosemide (Furosemide) 40 Mg Tablet, 40 MG PO DAILY, (Reported) Entered as Reported by: YOSSI NELSON on 03/03/19 1340 Hydrocodone/Acetaminophen ([place] 10-325 Tablet) 1 Each Tablet, 1 TAB PO Q6- 8H PRN for PAIN-MODERATE (5-7), (Reported) Entered as Reported by: SHAMIR SALAZAR on 07/20/19 1612 Hydrocodone/Acetaminophen (Hydrocodone-Acetamin 5-325 mg) 1 Each Tablet, 1 TAB PO Q4H PRN for PAIN-MODERATE (5-7) Prescribed by: KAMRAN LINDQUIST on 10/20/20 1254 Hyoscyamine Sulfate (Hyoscyamine Sulfate) 0.125 Mg Tab.rapdis, 0.125 MG SL Q6H PRN for ABDOMINAL PAIN, (Reported) Entered as Reported by: JESÚS PHILLIPS on 07/23/16 1618 Ipratropium [place] (Ipratropium [place]) 0.2 Mg/1 Ml Solution, 1 VIAL NEB TID, (Reported) Entered as Reported by: JESÚS PHILLIPS on 03/07/15 1640 Loratadine (Loratadine) 10 Mg Tablet, 10 MG PO DAILY, (Reported) Entered as Reported by: JESÚS PHILLIPS on 03/07/15 1623 Metoprolol Succinate (Toprol Xl) 25 Mg Tab.er.24h, 25 MG PO DAILY Prescribed by: KAMRAN LINDQUIST on 03/31/20 1748 Montelukast Sodium (Montelukast Sodium) 10 Mg Tablet, 10 MG PO HS, (Reported) Entered as Reported by: MELISSA MONTERO on 05/18/17 1103 Oxycodone HCl/Acetaminophen (Percocet 5-325 mg Tablet) 1 Each Tablet, 1-2 TAB PO Q4H PRN for PAIN-MODERATE (5-7) Prescribed by: ALVA LMAAR on 12/03/192010 Pantoprazole Sodium (Pantoprazole Sodium) 40 Mg Tablet.dr, 40 MG PO DAILY, (Reported) Entered as Reported by: JESÚS PHILLIPS on 03/07/15 1623 Potassium Chloride (K-Tab ER) 10 Meq Tablet.er, 20 MEQ PO BID, (Reported) Entered as Reported by: YOSSI NELSON on 05/28/19 0952 Prednisone (Prednisone) 20 Mg Tab, 20 MG PO UD, (Reported) Entered as Reported by: SHAMIR SALAZAR on 07/20/19 1602 Promethazine HCl (Promethazine Tablet) 25 Mg Tablet, 25 MG PO Q6H PRN for NAUSEA/VOMITING-2ND LINE, (Reported) Entered as Reported by: YOSSI NELSON on 04/14/18 1053 Warfarin Sodium (Jantoven) 4 Mg Tablet, 4 MG PO MO,,,FR,SA@1800, (Reported) Entered as Reported by: YOSSI NELSON on 05/28/19 0952 Warfarin Sodium (Jantoven) 5 Mg Tablet, 5 MG PO SAT,SAT @1800, (Reported) Entered as Reported by: SHAMIR SALAZAR on 07/20/19 1602 Review of Systems Review of Systems Constitutional: no symptoms reported, see HPI Respiratory: see HPI, cough, dyspnea on exertion, short of breath Cardiovascular: no symptoms reported, see HPI; No chest pain Gastrointestinal: no symptoms reported, see HPI 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: no symptoms reported, see HPI (STEPHANIE GREENWOOD) All Other Systems Reviewed Negative Unless Noted: Yes (STEPHANIE GREENWOOD) Past Odmvtyw-Hqlmwn-Uwwynr Hx Patient Social History Tobacco Use?: No Use of E-Cig and/or Vaping dev: No Substance use?: No Alcohol Use?: No Pt feels they are or have been: No (STEPHANIE GREENWOOD) Immunizations Up To Date Tetanus Booster (TDap): Unknown PED Vaccines UTD: No (STEPHANIE GREENWOOD) Seasonal Allergies Seasonal Allergies: Yes (STEPHANIE GREENWOOD) Past Medical History Surgeries: Yes (C/S X2, KNEE SCOPE, SHOULDER SCOPE, d&C, BILAT ULNAR NERVE, VENA CAVA FILTE) Abdominal, Adenoidectomy, Section, Gallbladder, Hysterectomy, Orthopedic, Tonsillectomy, Tubal Ligation, Vascular Surgery Respiratory: Yes (O2 AT HS 2-3L/NC AND PRN--NOCTURNAL HYPOXIA; ) Asthma, Pneumonia, Chronic Bronchitis, Pulmonary Embolism, COPD Currently Using CPAP: No Currently Using BIPAP: No Cardiac: Yes (MULTIPLE DVT'S AND P.E.'S ) Chronic Edema/Swelling, Deep Vein Thrombosis, High Cholesterol, Hypertension, Peripheral Vascular Neurological: Yes Neuropathy 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, 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 Sexually Transmitted Disease: No HIV/AIDS: No 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: Yes Kidney Infection, Bladder Infection, Kidney Stones Gastrointestinal: Yes (MULTIPLE HERNIA REPAIRS; MULTIPLE EGD'S /COLONOSCOPIES/POLYPECTOMIES) Abdominal Hernia, Gastroesophageal Reflux, Chronic Constipation, Chronic Diarrhea, Hepatitis, Polyps, Hiatal Hernia, Irritable Bowel Musculoskeletal: Yes (MULTIPLE ORTHO SURGERIES) Arthritis Endocrine: Yes ("PRE-DIABETIC" ) HEENT: Yes (NASAL POLYPS REMOVED) Cataract Loss of Vision: Denies Hearing Impairment: Denies Cancer: No Did You Recieve Any Treatments: No Psychosocial: Yes Anxiety Integumentary: Yes (CHRONIC VENOUS STASIS DERMATITIS AND ULCERS. CELLULTITIS OF LEGS;TATTOOS ) Blood Disorders: Yes (DVT'S/PE'S; PROBABLE PROTEIN C DEFICIENCY) Adverse Reaction/Blood Tranf: No (HAS HAD BLOOD WITH NO PROBLEMS) (STEPHANIE GREENWOOD) Family Medical History Alcoholism Alcoholism Arthritis Asthma 19 MOTHER Cancer G8 BROTHER G8 SISTER Cancer of colon Cancer of mouth Cardiovascular disease Cataract Cataracts Chest pain Colon cancer Completed stroke Diabetes mellitus Family history: Allergy Family history: Arthritis Family history: Asthma Family history: Cardiovascular disease Family history: Coronary thrombosis Family history: Diabetes mellitus G8 BROTHER G8 SISTER Family history: Gastrointestinal disease Family history: Hypertension Family history: Thyroid disorder Headache Hearing loss Heart disease 19 MOTHER History of - anemia History of - respiratory disease Hypercholesterolemia Hypercholesterolemia Hypertension 19 FATHER Infertile Malignant neoplasm of lung Myocardial infarction Myocardial infarction Psychotic disorder Respiratory disorder Stroke No Family History of: AIDS Abdominal aortic aneurysm Abdominal aortic aneurysm Adrian's disease Fernando's disease Alzheimer's disease Aphasia Aphasia Congenital disease Congenital heart disease Congenital heart disease Congestive heart failure Coronary thrombosis Cystic fibrosis Cystic fibrosis Deafness or hearing loss Dementia Dementia Drug abuse Dysphagia Dysphasia Family history: Alzheimer's disease Family history: Breast disease Family history: Glaucoma Family history: Osteoporosis Fibrocystic disease of breast Gastroenteritis Glaucoma Headache disorder Hereditary disease History of - disorder History of drug abuse Human immunodeficiency virus (HIV) seropositivity Infertility Kidney disease Kidney disease Neoplasm Not obtainable due to adoption Osteoporosis Parkinson's disease Parkinson's disease Prostate cancer Psychosocial problem Seizure disorder Seizure disorder Severe allergy Thyroid disease Tuberculosis Tuberculosis Visual disorder Visual impairment Cancer, COPD, Vascular Disease SOCIAL HISTORY: -ETOH--RARE USE NOW, HISTORY OF HEAVY USE/ABUSE -DRUGS-HX OF IV COCAINE USE -SMOKED 1 PPD, QUIT 2000 PAST SURGICAL HISTORY: -C-SECTIONS 1981, 1985 -SHOULDER SURGERY 2007 -LEFT KNEE SURGERY 2008 -D&C 2008 -HYSTERECTOMY/BILATERAL SALPINGO-OOPHORECTOMY 2008 -VENA CAVA FILTER 2009 -EGD 2010 -VEIN STRIPPING IN LEGS 2012 -BILATERAL ELBOW/ULNAR NERVE SURGERY 2012 -MULTIPLE HERNIA REPAIRS -MULTIPLE EGD'S AND COLONOSCOPIES AND POLYPECTOMIES -TONSILLECTOMY/ADENOIDECTOMY -CHOLECYSTECTOMY -NASAL POLYPS REMOVED -BILATERAL LEG RADIOABLATION 06/2018 ADDITIONAL PAST MEDICAL HISTORY: -MULTIPLE DVT'S AND P.E.'S -CHRONIC VENOUS STASIS ULCERATIONS -LEG CELLULITIS (STEPHANIE GREENWOOD) Physical Exam Vital Signs - First Documented 05/03/21 05/03/21 09:55 10:00 Temp 35.8 Pulse 125 Resp 28 B/P (MAP) 181/96 (124) Pulse Ox 85 O2 Delivery Room Air O2 Flow Rate 2.00 (ALVA BENJAMIN MD) Capillary Refill : (STEPHANIE GREENWOOD) Height: 5'5.00" Weight: 184lbs. 5.0oz. 83.232524yi; 36.00 BMI Method:Stated General Appearance: WD/WN, mild distress (after ambulating to room, improved with O2 per NC) HEENT: PERRL/EOMI, normal ENT inspection, TMs normal, pharynx normal Neck: non-tender, full range of motion, supple, normal inspection Respiratory: chest non-tender, lungs clear, normal breath sounds, no accessory muscle use Cardiovascular: normal peripheral pulses, regular rate, rhythm Gastrointestinal: normal bowel sounds, non tender, soft Extremities: normal range of motion, non-tender, normal inspection, no calf tenderness Neurologic/Psychiatric: no motor/sensory deficits, alert, normal mood/affect, oriented x 3 Skin: normal color, warm/dry (STEPHANIE GREENWOOD) Progress/Results/Core Measures Suspected Sepsis SIRS Temperature: Pulse: 125 Respiratory Rate: 28 Laboratory Tests 05/03/21 10:05: White Blood Count 8.7 Blood Pressure 181 /96 Mean: 98 Laboratory Tests 05/03/21 10:05: Creatinine 0.69, INR Comment 2.1H, Platelet Count 282, Total Bilirubin 0.4 (STEPHANIE GREENWOOD) Results/Orders Lab Results Laboratory Tests Test 05/03/21 10:05 05/03/21 10:52 Range/Units White Blood Count 8.7 4.3-11.0 10^3/uL Red Blood Count 4.70 3.80-5.11 10^6/uL Hemoglobin 13.0 11.5-16.0 g/dL Hematocrit 42 35-52 % Mean Corpuscular Volume 89 80-99 fL Mean Corpuscular Hemoglobin 28 25-34 pg Mean Corpuscular Hemoglobin Concent 31 L 32-36 g/dL Red Cell Distribution Width 15.4 H 10.0-14.5 % Platelet Count 282 130-400 10^3/uL Mean Platelet Volume 8.5 L 9.0-12.2 fL Immature Granulocyte % (Auto) 0 % Neutrophils (%) (Auto) 75 42-75 % Lymphocytes (%) (Auto) 14 12-44 % Monocytes (%) (Auto) 6 0-12 % Eosinophils (%) (Auto) 4 0-10 % Basophils (%) (Auto) 0 0-10 % Neutrophils # (Auto) 6.6 1.8-7.8 10^3/uL Lymphocytes # (Auto) 1.2 1.0-4.0 10^3/uL Monocytes # (Auto) 0.5 0.0-1.0 10^3/uL Eosinophils # (Auto) 0.4 H 0.0-0.3 10^3/uL Basophils # (Auto) 0.0 0.0-0.1 10^3/uL Immature Granulocyte # (Auto) 0.0 0.0-0.1 10^3/uL Prothrombin Time 23.8 H 12.2-14.7 SEC INR Comment 2.1 H 0.8-1.4 Sodium Level 143 135-145 MMOL/L Potassium Level 3.8 3.6-5.0 MMOL/L Chloride Level 105 98-107 MMOL/L Carbon Dioxide Level 27 21-32 MMOL/L Anion Gap 11 5-14 MMOL/L Blood Urea Nitrogen 11 7-18 MG/DL Creatinine 0.69 0.60-1.30 MG/DL Estimat Glomerular Filtration Rate 86 BUN/Creatinine Ratio 16 Glucose Level 122 H 70-105 MG/DL Calcium Level 9.4 8.5-10.1 MG/DL Corrected Calcium 9.4 8.5-10.1 MG/DL Total Bilirubin 0.4 0.1-1.0 MG/DL Aspartate Amino Transf (AST/SGOT) 17 5-34 U/L Alanine Aminotransferase (ALT/SGPT) 19 0-55 U/L Alkaline Phosphatase 88 40-136 U/L C-Reactive Protein High Sensitivity 0.18 0.00-0.50 MG/DL Total Protein 7.7 6.4-8.2 GM/DL Albumin 4.0 3.2-4.5 GM/DL Influenza Type A (RT-PCR) Not Detected Not Detecte Influenza Type B (RT-PCR) Not Detected Not Detecte SARS-CoV-2 RNA (RT-PCR) Not Detected Not Detecte (ALVA BENJAMIN MD) My Orders Orders - ALVA BENJAMIN MD Ed Iv/Invasive Line Start (05/03/21 09:34) Chest 1 View, Ap/Pa Only (05/03/21 09:34) Cbc With Automated Diff (05/03/21 09:34) Comprehensive Metabolic Panel (05/03/21 09:34) Hs C Reactive Protein (05/03/21 09:34) Protime With Inr (05/03/21 09:34) Covid 19 Inhouse Test (05/03/21 10:46) Influenza A And B By Pcr (05/03/21 10:46) (ALVA BENJAMIN MD) Vital Signs/I&O 05/03/21 05/03/21 05/03/21 05/03/21 09:55 10:00 10:42 11:11 Temp 35.8 Pulse 125 99 102 Resp 28 18 18 B/P (MAP) 181/96 (124) 129/82 121/87 Pulse Ox 85 95 96 96 O2 Delivery Room Air Nasal Cannula Nasal Cannula Nasal Cannula O2 Flow Rate 2.00 2.00 1.00 05/03/21 05/03/21 05/03/21 12:42 13:00 13:13 Pulse 123 102 Resp 20 20 B/P (MAP) 127/106 116/76 Pulse Ox 97 97 95 O2 Delivery Nasal Cannula Room Air O2 Flow Rate 2.00 (ALVA BENJAMIN MD) Vital Signs/I&O Capillary Refill : (STEPHANIE GREENWOOD) Blood Pressure Mean: 98 Progress Note : Time: 11:15 Progress Note AndPatient seen and evaluated, will obtain chest x-ray, labs and reevaluate. 1215 no pneumonia noted on x-ray, patient negative for Covid and influenza. Will give a DuoNeb breathing treatment and reevaluate. Her SaO2 has maintained 92% or higher on RA, while sitting in bed. She is drinking water and ambulated to bathroom twice, with no dyspnea. 1255 patient reports improvement after breathing treatment. She wishes to proceed home and will stop to get her allergy injection at Dr. Parekh's office. She has a prednisone 9-day taper at home to start. Discharge instructions and return precautions reviewed with the patient in detail. (STEPHANIE GREENWOOD) Diagnostic Imaging Diagonstic Imaging: Xray Plain Films/CT/US/NM/MRI: chest Comments NAME: [facility] REC#: [id number] PT STATUS: REG ER : 1960 PHYSICIAN: ALVA BENJAMIN MD ADMIT DATE: 05/03/21/ER Signed Date of Exam:05/03/21 CHEST 1 VIEW, AP/PA ONLY INDICATION: Chronic shortness of breath which has increased. FINDINGS: The upright portable chest shows the heart size to be upper normal. The vascularity is normal. There is flattening of the diaphragms, consistent with COPD. There is linear atelectasis in the left lower lung medially with no alveolar infiltrate seen within either lung. There is no effusion. IMPRESSION: There has been improved aeration of the lung bases since a prior study from 02/26/2021. There is some atelectasis on the left. No alveolar infiltrate is seen. Dictated by: Dictated on workstation # [id number] Dict: 05/03/21 1040 Trans: 05/03/21 104 [id number] Interpreted by: AURORA URENA MD Electronically signed by: AURORA URENA MD 05/03/21 1046 Reviewed: Reviewed by Me (STEPHANIE GREENWOOD) Departure Impression Primary Impression: Shortness of breath Additional Impression: COPD (chronic obstructive pulmonary disease) Qualified Codes: J41.8 - Mixed simple and mucopurulent chronic bronchitis Disposition: 01 HOME, SELF-CARE Condition: Improved Departure-Patient Inst. Decision time for Depature: 12:55 (STEPHANIE GREENWOOD) Referrals: LEAH WOLF MD (PCP/Family) Primary Care Physician Patient Instructions: Chronic Obstructive Pulmonary Disease (COPD) (DC) Add. Discharge Instructions: Start your prednisone 9-day taper. Continue all home medications, nebulized breathing treatments and inhalers as prescribed by your primary care doctor. Continue to take precautions since you are not immunized for influenza or Covid. Obtain your allergy shot at Dr. Parekh's office today. Call Dr. Wolf's office if your symptoms are not improving or worsen. Return to the emergency department for new, urgent healthcare needs. All discharge instructions reviewed with patient and/or family. Voiced understanding. ATTENDING PHYSICIAN NOTE: I was physically present as attending physician in the emergency department during the care of this patient, but I was not directly involved in the decision making or delivery of care for this patient. (ALVA BENJAMIN MD) Copy Copies To 1: LEAH WOLF MD, AMY ARNP May 03, 2021 11:26 ALVA BENJAMIN MD May 03, 2021 21:00
[2021-05-03] MEDS ORDERED: RT-ALBUTEROL/IPRATROPIUM 3 ML (DUONEB) VIAL INH STA (12:17)
[2021-05-03 13:13] VITALS: BP 116/76
== END 2021-05-03 13:13 | disposition home or self-care (01) ==
LOC: EDUNIT# 09:29 → ER 09:31
DX: R06.02 Shortness of breath (principal); J44.9 Chronic obstructive pulmonary disease, unspecified; I10 Essential (primary) hypertension; K21.9 Gastro-esophageal reflux disease without esophagitis; F41.9 Anxiety disorder, unspecified; Z91.040 Latex allergy status; Z20.822 Contact with and (suspected) exposure to COVID-19; Z86.711 Personal history of pulmonary embolism; Z86.718 Personal history of other venous thrombosis and embolism; Z79.01 Long term (current) use of anticoagulants; Z79.899 Other long term (current) drug therapy
CPT/HCPCS: 36415; 71045; 80053; 85025; 85610; 86141; 87636

== ENCOUNTER 2021-05-16 09:15 | Outpatient (RCR) | payer MEDICAID ==
[2021-05-16 10:17] LABS: INR 2.3 (0.8-1.4); PROTHROMBIN TIME PATIENT 26.1 SEC (12.2-14.7)
[2021-06-13] MEDS ORDERED: CHOL10007 PO ×2 (10:34)
[2021-06-13] MEDS ORDERED: ASCO100024 PO ×2 (10:34)
[2021-06-13] MEDS ORDERED: PRD10T PO ×2 (10:34)
[2021-06-13] MEDS ORDERED: CALC1TAB84 PO ×2 (10:34)
[2021-06-13] MEDS ORDERED: HYOS-19 SL ×2 (10:34)
[2021-06-13] MEDS ORDERED: HYDR-3820 PO ×2 (10:34)
== END 2021-06-12 | disposition home or self-care (01) ==
LOC: LAB 09:15
PROVIDERS: ATTEND Family Medicine
DX: Z86.718 Personal history of other venous thrombosis and embolism (principal); Z86.711 Personal history of pulmonary embolism
CPT/HCPCS: 36415; 85610

== ENCOUNTER → 2021-05-16 | Outpatient (CLI) | payer MEDICAID ==
--- NOTE | 2021-05-16 12:40 | Diagnostic Imaging Report ---
INDICATION: 60-year-old asymptomatic postmenopausal female. History of chronic glucocorticoid steroid use. COMPARISON: 08/10/2011 FINDINGS: AP Spine L2-L4: [BMD (g/cm2): 1.148] [T-Score: -0.4] [Z-Score: -0.2] [BMD Previous: 1.024] [BMD % Change: 12.1] LT Hip Neck: [BMD (g/cm2): 0.765] [T-Score: -2.0] [Z-Score: -1.4] LT Hip Total: [BMD (g/cm2):0.944] [T-Score:-0.5] [Z-Score: -0.3] [BMD Previous: 1.107] [BMD % Change: -14.7] RT Hip Neck: [BMD (g/cm2):0.743] [T-Score:-2.1] [Z-Score:-1.5] RT Hip Total: [BMD (g/cm2):0.927] [T-score:-0.6] [Z-Score:-0.4] [BMD Previous:1.014] [BMD % Change:-8.6] *Indicates significant change from prior examination based on 95% confidence level. World Health Organization criteria for BMD interpretation classify patients as Normal (T-score at or above -1.0), Osteopenic (T-score between -1.0 and -2.5) or Osteoporotic (T-score at or below -2.5). LIMITATIONS AND MODIFICATION: None. FRACTURE RISK (FRAX SCORE): The ten year probability of (%): Major Osteoporotic Fracture: [25.6] Hip Fracture: [4.5] IMPRESSION: 1. Osteopenia (Low bone mass). 2. No significant change in bone mineral density since prior examination. 3. See below National Osteoporosis Foundation guidelines on when to potentially initiate pharmacologic therapy. Based on the National Osteoporosis Foundation Guidelines, pharmacologic treatment should be initiated in any of the following, unless clinical conditions suggest otherwise: * Any patient with prior fragility fracture of the hip or vertebrae. A spine fracture indicates 5X risk for subsequent spine fracture and 2X risk for subsequent hip fracture. * Osteoporosis (T-score <-2.5). * Postmenopausal women and men age 50 and older with low bone mass/osteopenia (T-score between -1.0 and -2.5) by DXA and 10-year major osteoporotic fracture greater than 20% or a 10-year probability of hip fracture greater than 3%. These fracture risks are supplied above in the FRAX score, if applicable. * Clinician judgement and/or patient preferences may indicate treatment for people with 10-year fracture probabilities above or below these levels. Dictated by: Dictated on workstation # [id number]
== END ==
LOC: RAD 09:00
PROVIDERS: ATTEND Family Medicine
DX: M85.88 Other specified disorders of bone density and structure, other site (principal); Z79.52 Long term (current) use of systemic steroids; Z78.0 Asymptomatic menopausal state
CPT/HCPCS: 77080

== ENCOUNTER 2021-06-13 11:00 | Day surgery (SDC) | payer MEDICAID ==
[~2021-06-13] VITALS: Ht 165 cm; Wt 100.6 kg
[2021-06-13] VITALS (8 sets, daily range): BP systolic 110–151; BP diastolic 75–109
[2021-06-13 09:48] LABS: HEMATOCRIT 40 % (35-52); HEMOGLOBIN 12.6 g/dL (11.5-16.0); MEAN CORPUSCULAR HEMOGLOBIN 27 pg (25-34); MEAN CORPUSCULAR HGB CONC 31 g/dL (32-36); MEAN CORPUSCULAR VOLUME 87 fL (80-99); MEAN PLATELET VOLUME 8.7 fL (9.0-12.2); PLATELET COUNT 295 10^3/uL (130-400); WHITE BLOOD COUNT 8.7 10^3/uL (4.3-11.0)
[2021-06-13 10:01] LABS: INR 2.1 (0.8-1.4); PROTHROMBIN TIME PATIENT 23.8 SEC (12.2-14.7)
[2021-06-13 10:09] LABS: ALBUMIN 3.8 GM/DL (3.2-4.5); BILIRUBIN,TOTAL 0.3 MG/DL (0.1-1.0); CALCIUM 9.1 MG/DL (8.5-10.1); CREATININE SERUM 0.67 MG/DL (0.60-1.30); POTASSIUM 3.9 MMOL/L (3.6-5.0); TOTAL PROTEIN 7.7 GM/DL (6.4-8.2)
[~2021-06-13 11:00] MED LIST changes: +ASCO100024 PO; +CALC1TAB84 PO; +CHOL10007 PO; +HEParin (CATH LAB) 2,000 ML IV ONE; +HYDR-3820 PO; +HYOS-19 SL; +LIDOCAINE 1% INJ 20 ML VIAL ONE; +MIDAZOLAM 5 MG/5 ML (VERSED) VIAL ONE; +NS IV 1000 ML 1,000 ML IV SCH; +NS IV 1000 ML 1,000 ML ONE; +diphenhydrAMINE 50 MG/ML INJ (BENADRYL) ONE; +fentaNYL INJ 100 MCG/2 ML AMP ONE
--- NOTE | 2021-06-13 11:43 | Cardiac Procedure Note-CS/ASA ---
Pre-Procedure Note Pre-Op Procedure Note H&P Reviewed The H&P was reviewed, patient examined and no changes noted. Date H&P Reviewed: Jun 13, 2021 Time H&P Reviewed: 11:00 Conscious Sedation Pre-Proced Time 11:00 ASA Score 3 For ASA 3 and 4: Consider anesthesia and medical clearance. Also, for patients with a history of failed moderate sedation consider anesthesia. Airway Lungs Heart ASA score ASA 1: a normal healthy patient ASA 2: a patient with a mild systemic disease (mid diabetes, controlled hypertension, obesity ASA 3: a patient with a severe systemic disease that limits activity (angina, COPD, prior Myocardial infarction) ASA 4: a patient with an incapacitating disease that is a constant threat to life (CHF, renal failure) ASA 5: a moribund patient not expected to survive 24 hrs. (ruptured aneurysm) ASA 6: a declared brain- patient whose organs are being harvested. For emergent operations, add the letter E after the classification Mallampati Classification Grade 1 Sedation Plan Analgesia, Amnesia, Plan communicated to team members, Discussed options with patient/fam, Discussed risks with patient/fam The patient is an appropriate candidate to undergo the planned procedure, sedation, and anesthesia. The patient immediately re-assessed prior to indication. PAVAN NASH MD FACP FAC CCDS Jun 13, 2021 11:43
[2021-06-13] MEDS ORDERED: PATIENT MAY USE OWN MEDS, ALL PO SCH (11:45)
[2021-06-13] MEDS ORDERED: NS IV 1000 ML 1,000 ML IV SCH (11:45)
--- NOTE | 2021-06-13 11:46 | Discharge Inst-Cardiology ---
Discharge Inst-Cardiac Discharge Medications Continued Medications: Albuterol Sulfate (Proair Hfa) 8.5 Gm Hfa.aer.ad 2 PUFF IH Q4H PRN for SHORTNESS OF BREATH, INHALER Albuterol Sulfate (Albuterol Sulfate) 2.5 Mg/3 Ml Vial.neb 2.5 MG NEB TID, EA Alprazolam (Alprazolam) 1 Mg Tablet 1 MG PO BID PRN for ANXIETY, TAB Ascorbic Acid (Vitamin C) 1,000 Mg Tablet 1000 MG PO DAILY, TAB Calcium Carbonate/Vitamin D3 (Calcium 600 + Vit D 200 Tablet) 1 Each Tablet 1 EACH PO BID, TAB Cholecalciferol (Vitamin D3) (Vitamin D3) 25 Mcg Capsule 25 MCG PO DAILY, CAP Furosemide (Furosemide) 40 Mg Tablet 40 MG PO DAILY, TAB Hydrocodone/Acetaminophen (Hydrocodone-Acetamin 10-325 mg) 1 Each Tablet 1 EACH PO Q6H PRN for PAIN-MODERATE (5-7), TAB Hyoscyamine Sulfate (Hyoscyamine Sulfate) 0.125 Mg Tab.subl 0.125 MG SL BID PRN for GI SPASMS, TAB Ipratropium [place] (Ipratropium [place]) 0.2 Mg/1 Ml Solution 1 VIAL NEB TID, EA Loratadine (Loratadine) 10 Mg Tablet 10 MG PO DAILY, TAB Montelukast Sodium (Montelukast Sodium) 10 Mg Tablet 10 MG PO HS, TAB Pantoprazole Sodium (Pantoprazole Sodium) 40 Mg Tablet.dr 40 MG PO DAILY, TAB Potassium Chloride (K-Tab ER) 10 Meq Tablet.er 20 MEQ PO BID, TAB TAKES 2 (10MEQ) TABLETS Prednisone (Prednisone) 20 Mg Tab 40 MG PO UD PRN for PM BEFORE &AM OF CATHERIZATION, TAB TAKES 2 (20MG) TABS Prednisone (Prednisone) 10 Mg Tab 10 MG PO DAILY, TAB Warfarin Sodium (Jantoven) 4 Mg Tablet 4 MG PO SAT,SAT,,SAT @1800, TAB Warfarin Sodium ([place]ant[place]) 5 Mg Tablet 5 MG PO SAT,,FR@1800, TAB PAVAN NASH MD [facility] Jun 13, 2021 11:46
--- NOTE | 2021-06-13 11:47 | Discharge Inst-Post CATH ---
Discharge Inst-CATH/EP Post Cardiac Cath/EP D/C Inst Follow Up/Plan F/u with Dr Núñez in 3-4 weeks ACTIVITY * Go Home directly and rest. * Limit activity of the leg (or wrist if it was used) for 7 days including aerobics, swimming, jogging, bicycling, etc. * Restrict stair-climbing for 7 days if possible, if not, climb up with your non-cath leg, then bring together on the same step. * Avoid lifting, pushing, pulling or excessive movement of the affected extremity for 7 days. * Customary sexual activity may be resumed after 2 days-use caution not to use a position that strains or causes pain to the affected extremity. * No driving for 24 hours. * NO SMOKING. * Avoid straining for bowel movements for 7 days. * Gentle walking on level ground is allowed. * Returning to work will depend on the type of procedure and the results. Your doctor will discuss this with you. CALL YOUR DOCTOR FOR ANY OF THE FOLLOWING: *If bleeding from the puncture site occurs- Apply gentle pressure to site with clean cloth and call your doctor or EMS. * If a knot or lump forms under the skin, increases in size, or causes pain. * If bruising appears to be worsening or moving further down your leg instead of disappearing. * Temperature above 101 F. CARE OF YOUR GROIN INCISION; * Bruising or purple discoloration of the skin near the puncture site is common. * You may shower only, no bathtub bathing for 5 days. Be careful to avoid slipping as your leg may feel stiff. * If a closure device was used on your femoral artery, please see the attached guide regarding care of the device and your leg. * Leave dressing on FOR 24 hours. CARE OF YOUR WRIST INCISION; * Bruising or purple discoloration of the skin near the puncture site is common. * You may shower. * DO NOT submerge wrist. * Leave dressing on FOR 24 hours. PAVAN NÚÑEZ MD [facility] Jun 13, 2021 11:46
--- NOTE | 2021-06-13 14:10 | CARDIAC CATHETERIZATION ---
DATE OF SERVICE: 06/13/2021 CARDIAC CATHETERIZATION REPORT INDICATION FOR PROCEDURE: The patient is a 60-year-old lady, who has a strong family history of premature coronary artery disease. She has been experiencing increasing shortness of breath and has been quite concerned about coronary origin of her new symptoms. Cardiac catheterization was carried out today after having obtained an informed consent. DESCRIPTION OF PROCEDURE: She was brought to the cardiac catheterization laboratory in a fasting state. Right groin was prepared and draped in the usual sterile fashion. Lidocaine 1% was used for local anesthesia. Modified Seldinger technique was used to advance a 5-Ecuadorean sheath in the right femoral artery, 5-Ecuadorean JL4 catheter for left coronary angiography, 5-Ecuadorean JR4 catheter for right coronary angiography, 5-Ecuadorean pigtail catheter was used for left heart catheterization and left ventricular angiography. Angiography of the right femoral artery was carried out through the sheath and Mynx was used to achieve hemostasis following the catheter and sheath removal. She tolerated the procedure well. HEMODYNAMICS: Left ventricular end-diastolic pressure following coronary angiography was 18 mmHg. There was no significant pressure gradient on pullback across the aortic valve. Ascending aortic pressure was 146/100 with mean of 121 mmHg. CORONARY ANGIOGRAPHY: Left main coronary artery, left anterior descending, left circumflex, and right coronary artery do not exhibit angiographically significant disease. Left circumflex artery is large and dominant. LEFT VENTRICULAR ANGIOGRAPHY: Left ventricular angiography was carried out in the right anterior oblique projection. Global left ventricular systolic function is normal. No regional wall motion abnormality was seen. Left ventricular ejection fraction is approximately 60%. CONCLUSIONS: 1. No angiographically significant coronary artery disease. 2. Normal global left ventricular systolic function with an ejection fraction approximately 60%. 3. Left ventricular end-diastolic pressure is 18 mmHg. DISCUSSION AND RECOMMENDATIONS: Based on the results of the study, it appears appropriate to continue a conservative approach. Risk factor modification has been reviewed. Outpatient followup is advised. Job ID: [id number] DocumentID: [id number] Dictated Date: 06/13/2021 11:40:30 Auto Leasing Manager Date: 06/13/2021 14:09:18 Dictated By: PAVAN NASH MD, MA, FACP, FACC,
== END 2021-06-13 15:15 ==
LOC: CATH 11:00
PROVIDERS: ATTEND Internal Medicine Cardiovascular Disease
DX: R06.02 Shortness of breath (principal); I25.10 Atherosclerotic heart disease of native coronary artery without angina pectoris; J44.9 Chronic obstructive pulmonary disease, unspecified; E66.9 Obesity, unspecified; I87.2 Venous insufficiency (chronic) (peripheral); G47.33 Obstructive sleep apnea (adult) (pediatric); I07.1 Rheumatic tricuspid insufficiency; I65.23 Occlusion and stenosis of bilateral carotid arteries; I50.32 Chronic diastolic (congestive) heart failure; E78.2 Mixed hyperlipidemia; I47.1 Supraventricular tachycardia; Z79.899 Other long term (current) drug therapy; Z79.891 Long term (current) use of opiate analgesic; Z99.81 Dependence on supplemental oxygen; Z79.01 Long term (current) use of anticoagulants; Z87.891 Personal history of nicotine dependence; Z68.36 Body mass index [BMI] 36.0-36.9, adult
CPT/HCPCS: 36415; 80053; 80061; 85027; 85610; 85730; 87081; 93005; 93458

== ENCOUNTER 2021-07-04 14:32 | Emergency (ER) | payer MEDICAID ==
[~2021-07-04] VITALS: Ht 165 cm; Wt 100.0 kg
[~2021-07-04 14:32] MED LIST changes: -HEParin (CATH LAB) 2,000 ML IV ONE; -LIDOCAINE 1% INJ 20 ML VIAL ONE; -MIDAZOLAM 5 MG/5 ML (VERSED) VIAL ONE; -NS IV 1000 ML 1,000 ML IV SCH; -NS IV 1000 ML 1,000 ML ONE; -diphenhydrAMINE 50 MG/ML INJ (BENADRYL) ONE; -fentaNYL INJ 100 MCG/2 ML AMP ONE
--- NOTE | 2021-07-04 15:19 | Diagnostic Imaging Report ---
INDICATION: Left sided pain, shortness of air. COMPARISON: 05/03/2021. FINDINGS: Frontal and lateral views of the chest demonstrate normal heart size and pulmonary vascularity. The lungs are hyperinflated but otherwise clear. There are no signs of infiltrate, pleural effusions or pneumothoraces. The visualized osseous structures show no acute abnormalities. IMPRESSION: 1. No acute process. No signs of infiltrates, effusions or pneumothoraces. 2. Probable background obstructive pulmonary disease. Dictated by: Dictated on workstation # [id number]
--- NOTE | 2021-07-04 16:09 | ED Respiratory ---
General Chief Complaint: Respiratory Problems Stated Complaint: SOA/LEFT RIB PAIN Nursing Triage Note: PT AMB TO RM 3 PT CO OF SOA,AND L SIDE AND RIB PAIN. Source: patient Exam Limitations: no limitations (KAMRAN LINDQUIST APRN) History of Present Illness Date Seen by Provider: Jul 04, 2021 Time Seen by Provider: 16:08 Initial Comments Ongoing shortness of breath and wheezing. She had a heart cath first of this month and has had some issues since then. She was on a 9-day taper of steroids and an injection of Depo-Medrol 06/29/2021. She now has left-sided chest wall pain with breathing she is concerned she may have pneumonia. No fevers or chills. Timing/Duration: constant Severity: moderate Prior Episodes/Possible Cause: no prior episodes Associated Symptoms: denies symptoms, cough (KAMRAN LINDQUIST APRN) Allergies and Home Medications Allergies Coded Allergies: aspirin (Verified Allergy, Severe, ANAPHYLAXIS, 03/03/19) ibuprofen (Verified Allergy, Severe, ANAPHYLAXIS, 03/03/19) ketorolac (Verified Allergy, Severe, ANAPHYLAXIS, 03/03/19) tetanus and diphtheria toxoids (Unverified Allergy, Severe, ANAPHYLAXIS, 03/03/19) aloe (Verified Allergy, Mild, RASH, 03/03/19) latex (Verified Allergy, Mild, RASH, 03/03/19) OCCASIONALLY IS IRRITATING SKIN scopolamine (Verified Allergy, Mild, 03/03/19) iodine (Verified Adverse Reaction, Unknown, 03/03/19) Patient states she got dizzy, diaphoretic and saw stars. Uncoded Allergies: ALOE VERA (Allergy, Unknown, 12/23/05) SILK SUTURES (Adverse Reaction, Unknown, BODY REJECTS SUTURES, 10/07/13) Patient Home Medication List Home Medication List Reviewed: Yes (KAMRAN LINDQUIST APRN) Albuterol Sulfate (Proair Hfa) 8.5 Gm Hfa.aer.ad, 2 PUFF IH Q4H PRN for SHORTNESS OF BREATH, (Reported) Entered as Reported by: YOSSI NELSON on 08/10/15 1057 Albuterol Sulfate (Albuterol Sulfate) 2.5 Mg/3 Ml Vial.neb, 2.5 MG NEB TID, (Reported) Entered as Reported by: YOSSI NELSON on 05/28/19 0952 Alprazolam (Alprazolam) 1 Mg Tablet, 1 MG PO BID PRN for ANXIETY, (Reported) Entered as Reported by: JESÚS PHILLIPS on 03/07/15 1623 Ascorbic Acid (Vitamin C) 1,000 Mg Tablet, 1,000 MG PO DAILY, (Reported) Entered as Reported by: SHAMIR SALAZAR on 06/13/21 1034 Calcium Carbonate/Vitamin D3 (Calcium 600 + Vit D 200 Tablet) 1 Each Tablet, 1 EACH PO BID, (Reported) Entered as Reported by: SHAMIR SALAZAR on 06/13/21 1034 Cholecalciferol (Vitamin D3) (Vitamin D3) 25 Mcg Capsule, 25 MCG PO DAILY, (Reported) Entered as Reported by: SHAMIR SALAZAR on 06/13/21 1034 Furosemide (Furosemide) 40 Mg Tablet, 40 MG PO DAILY, (Reported) Entered as Reported by: YOSSI NELSON on 03/03/19 1340 Hydrocodone/Acetaminophen (Hydrocodone-Acetamin 10-325 mg) 1 Each Tablet, 1 EACH PO Q6H PRN for PAIN-MODERATE (5-7), (Reported) Entered as Reported by: SHAMIR SALAZAR on 06/13/21 1034 Hyoscyamine Sulfate (Hyoscyamine Sulfate) 0.125 Mg Tab.subl, 0.125 MG SL BID PRN for GI SPASMS, (Reported) Entered as Reported by: SHAMIR SALAZAR on 06/13/21 1034 Ipratropium Glynn (Ipratropium Glynn) 0.2 Mg/1 Ml Solution, 1 VIAL NEB TID, (Reported) Entered as Reported by: JESÚS PHILLIPS on 03/07/15 1640 Loratadine (Loratadine) 10 Mg Tablet, 10 MG PO DAILY, (Reported) Entered as Reported by: JESÚS PHILLIPS on 03/07/15 162 Montelukast Sodium (Montelukast Sodium) 10 Mg Tablet, 10 MG PO HS, (Reported) Entered as Reported by: MELISSA MONTERO on 05/18/17 1103 Pantoprazole Sodium (Pantoprazole Sodium) 40 Mg Tablet.dr, 40 MG PO DAILY, (Reported) Entered as Reported by: JESÚS PHILLIPS on 03/07/15 162 Potassium Chloride (K-Tab ER) 10 Meq Tablet.er, 20 MEQ PO BID, (Reported) Entered as Reported by: YOSSI NELSON on 05/28/19 0952 Prednisone (Prednisone) 20 Mg Tab, 40 MG PO UD PRN for PM BEFORE &AM OF CATHERIZATION, (Reported) Entered as Reported by: SHAMIR SALAZAR on 07/20/19 1602 Prednisone (Prednisone) 10 Mg Tab, 10 MG PO DAILY, (Reported) Entered as Reported by: SHAMIR SALAZAR on 06/13/21 1034 Warfarin Sodium (Jantoven) 4 Mg Tablet, 4 MG PO SUN,E,TH,SAT @1800, (Reported) Entered as Reported by: YOSSI NELSON on 05/28/19 0952 Warfarin Sodium (Jantoven) 5 Mg Tablet, 5 MG PO MON,,FR@1800, (Reported) Entered as Reported by: SHAMIR SALAZAR on 07/20/19 1602 Review of Systems Review of Systems Constitutional: see HPI EENTM: see HPI Respiratory: see HPI, cough 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: no symptoms reported Musculoskeletal: no symptoms reported Skin: no symptoms reported Psychiatric/Neurological: No Symptoms Reported Hematologic/Lymphatic: No Symptoms Reported (KAMRAN LINDQUIST APRN) Past [place]-Auyykx-Oyderr Hx Patient Social History Tobacco Use?: No Substance use?: No Alcohol Use?: No Pt feels they are or have been: No (KAMRAN LINDQUIST APRN) Immunizations Up To Date Tetanus Booster (TDap): Unknown PED Vaccines UTD: No (KAMRAN LINDQUIST APRN) Seasonal Allergies Seasonal Allergies: Yes (KAMRAN LINDQUIST APRN) Past Medical History Surgery/Hospitalization HX: COPD, Surgeries: Yes (C/S X2, KNEE SCOPE, SHOULDER SCOPE, d&C, BILAT ULNAR NERVE, VENA CAVA FILTE) Abdominal, Adenoidectomy, Section, Gallbladder, Hysterectomy, Orthopedic, Tonsillectomy, Tubal Ligation, Vascular Surgery Respiratory: Yes (O2 AT HS 2-3L/NC AND PRN--NOCTURNAL HYPOXIA; ) Asthma, Pneumonia, Chronic Bronchitis, Pulmonary Embolism, COPD Currently Using CPAP: No Currently Using BIPAP: No Cardiac: Yes (MULTIPLE DVT'S AND P.E.'S ) Chronic Edema/Swelling, Deep Vein Thrombosis, High Cholesterol, Hypertension, Peripheral Vascular Neurological: Yes Neuropathy 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 Disorders: 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, 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 Sexually Transmitted Disease: No HIV/AIDS: No 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: Yes Kidney Infection, Bladder Infection, Kidney Stones Gastrointestinal: Yes (MULTIPLE HERNIA REPAIRS; MULTIPLE EGD'S /COLONOSCOPIES/POLYPECTOMIES) Abdominal Hernia, Gastroesophageal Reflux, Chronic Constipation, Chronic Diarrhea, Hepatitis, Polyps, Hiatal Hernia, Irritable Bowel Musculoskeletal: Yes (MULTIPLE ORTHO SURGERIES) Arthritis Endocrine: Yes ("PRE-DIABETIC" ) HEENT: Yes (NASAL POLYPS REMOVED) Cataract Loss of Vision: Denies Hearing Impairment: Denies Cancer: No Did You Recieve Any Treatments: No Psychosocial: Yes Anxiety Integumentary: Yes (CHRONIC VENOUS STASIS DERMATITIS AND ULCERS. CELLULTITIS OF LEGS;TATTOOS ) Blood Disorders: Yes (DVT'S/PE'S; PROBABLE PROTEIN C DEFICIENCY) Adverse Reaction/Blood Tranf: No (HAS HAD BLOOD WITH NO PROBLEMS) (KAMRAN LINDQUIST APRN) Family Medical History Alcoholism Alcoholism Arthritis Asthma 19 MOTHER Cancer G8 BROTHER G8 SISTER Cancer of colon Cancer of mouth Cardiovascular disease Cataract Cataracts Chest pain Colon cancer Completed stroke Diabetes mellitus Family history: Allergy Family history: Arthritis Family history: Asthma Family history: Cardiovascular disease Family history: Coronary thrombosis Family history: Diabetes mellitus G8 BROTHER G8 SISTER Family history: Gastrointestinal disease Family history: Hypertension Family history: Thyroid disorder Headache Hearing loss Heart disease 19 MOTHER History of - anemia History of - respiratory disease Hypercholesterolemia Hypercholesterolemia Hypertension 19 FATHER Infertile Malignant neoplasm of lung Myocardial infarction Myocardial infarction Psychotic disorder Respiratory disorder Stroke No Family History of: AIDS Abdominal aortic aneurysm Abdominal aortic aneurysm Fernando's disease [place]'s disease Alzheimer's disease Aphasia Aphasia Congenital disease Congenital heart disease Congenital heart disease Congestive heart failure Coronary thrombosis Cystic fibrosis Cystic fibrosis Deafness or hearing loss Dementia Dementia Drug abuse Dysphagia Dysphasia Family history: Alzheimer's disease Family history: Breast disease Family history: Glaucoma Family history: Osteoporosis Fibrocystic disease of breast Gastroenteritis Glaucoma Headache disorder Hereditary disease History of - disorder History of drug abuse Human immunodeficiency virus (HIV) seropositivity Infertility Kidney disease Kidney disease Neoplasm Not obtainable due to adoption Osteoporosis Parkinson's disease Parkinson's disease Prostate cancer Psychosocial problem Seizure disorder Seizure disorder Severe allergy Thyroid disease Tuberculosis Tuberculosis Visual disorder Visual impairment Cancer, COPD, Vascular Disease SOCIAL HISTORY: -ETOH--RARE USE NOW, HISTORY OF HEAVY USE/ABUSE -DRUGS-HX OF IV COCAINE USE -SMOKED 1 PPD, QUIT 2000 PAST SURGICAL HISTORY: -C-SECTIONS 1981, 1985 -SHOULDER SURGERY 2007 -LEFT KNEE SURGERY 2009 -D&C 2008 -HYSTERECTOMY/BILATERAL SALPINGO-OOPHORECTOMY 2008 -VENA CAVA FILTER 2009 -EGD 2010 -VEIN STRIPPING IN LEGS 2012 -BILATERAL ELBOW/ULNAR NERVE SURGERY 2012 -MULTIPLE HERNIA REPAIRS -MULTIPLE EGD'S AND COLONOSCOPIES AND POLYPECTOMIES -TONSILLECTOMY/ADENOIDECTOMY -CHOLECYSTECTOMY -NASAL POLYPS REMOVED -BILATERAL LEG RADIOABLATION 06/2018 ADDITIONAL PAST MEDICAL HISTORY: -MULTIPLE DVT'S AND P.E.'S -CHRONIC VENOUS STASIS ULCERATIONS -LEG CELLULITIS (KAMRAN LINDQUIST APRN) Physical Exam Vital Signs - First Documented 07/04/21 14:45 Temp 36.6 Pulse 125 Resp 24 B/P (MAP) 170/108 (128) Pulse Ox 95 O2 Delivery Room Air (ALVA BENJAMIN MD) Capillary Refill : Less Than 3 Seconds (KAMRAN LINDQUIST APRN) Height: 5'5.00" Weight: 184lbs. 5.0oz. 83.040306oo; 36.00 BMI Method:Stated General Appearance: WD/WN, no apparent distress, other (No accessory muscle use, audible expiratory wheezing, saturation 94% room air.) Eyes: Bilateral Eye Normal Inspection, Bilateral Eye PERRL, Bilateral Eye EOMI Respiratory: no respiratory distress, no accessory muscle use, decreased breath sounds, wheezing Cardiovascular: regular rate, rhythm, no murmur Gastrointestinal: normal bowel sounds, non tender, soft Neurologic/Psychiatric: alert, normal mood/affect, oriented x 3 Skin: normal color, warm/dry (KAMRAN LINDQUIST APRN) Progress/Results/Core Measures Suspected Sepsis SIRS Temperature: Pulse: 125 Respiratory Rate: 24 Blood Pressure 170 /108 Mean: 128 (KAMRAN LINDQUIST APRN) Results/Orders Vital Signs/I&O 07/04/21 07/04/21 14:45 16:34 Temp 36.6 Pulse 125 110 Resp 24 24 B/P (MAP) 170/108 (128) 162/88 Pulse Ox 95 95 O2 Delivery Room Air Room Air (ALVA BENJAMIN MD) Vital Signs/I&O Capillary Refill : Less Than 3 Seconds (KAMRAN LINDQUIST APRN) Blood Pressure Mean: 128 Departure Impression Primary Impression: COPD exacerbation Disposition: 01 HOME, SELF-CARE Condition: Stable Departure-Patient Inst. Decision time for Depature: 16:08 (KAMRAN LINDQUIST APRN) Referrals: LEAH WOLF MD (PCP/Family) Primary Care Physician Patient Instructions: Cough, Adult (DC) ATTENDING PHYSICIAN NOTE: I was physically present as attending physician in the emergency department during the care of this patient, but I was not directly involved in the decision making or delivery of care for this patient. (ALVA BENJAMIN MD) KAMRAN LINDQUIST APRN Jul 04, 2021 16:08 ALVA BENJAMIN MD Jul 05, 2021 20:23
[2021-07-04] MEDS ORDERED: RT-ALBUTEROL/IPRATROPIUM 3 ML (DUONEB) VIAL INH ONE (16:30)
[2021-07-04 16:34] VITALS: BP 162/88
== END 2021-07-04 16:33 | disposition home or self-care (01) ==
LOC: EDUNIT# 14:32 → ER 14:36
DX: J44.1 Chronic obstructive pulmonary disease with (acute) exacerbation (principal); I10 Essential (primary) hypertension; K21.9 Gastro-esophageal reflux disease without esophagitis; F41.9 Anxiety disorder, unspecified; Z91.040 Latex allergy status; Z86.718 Personal history of other venous thrombosis and embolism; Z86.711 Personal history of pulmonary embolism; Z79.01 Long term (current) use of anticoagulants; Z79.899 Other long term (current) drug therapy
CPT/HCPCS: 71046

== ENCOUNTER 2021-08-02 16:00 | Outpatient (RCR) | payer MEDICAID ==
[2021-08-02 16:29] LABS: INR 2.1 (0.8-1.4); PROTHROMBIN TIME PATIENT 24.4 SEC (12.2-14.7)
== END 2021-08-10 | disposition home or self-care (01) ==
LOC: LAB 16:00
PROVIDERS: ATTEND Family Medicine
DX: Z09 Encounter for follow-up examination after completed treatment for conditions other than malignant neoplasm (principal); Z86.718 Personal history of other venous thrombosis and embolism; Z86.711 Personal history of pulmonary embolism
CPT/HCPCS: 36415; 85610

== ENCOUNTER → 2021-08-02 | Outpatient (CLI) | payer MEDICAID ==
[~2021-08-02] MED LIST changes: +FLUC100T10 PO; -FLUC100T6 PO
[2021-08-02 15:56] LABS: BASOPHILS % (AUTO) 0 % (0-10); EOSINOPHILS # (AUTO) 0.1 10^3/uL (0.0-0.3); EOSINOPHILS % (AUTO) 1 % (0-10); HEMATOCRIT 39 % (35-52); HEMOGLOBIN 12.3 g/dL (11.5-16.0); LYMPHOCYTES % (AUTO) 21 % (12-44); MEAN CORPUSCULAR HEMOGLOBIN 28 pg (25-34); MEAN CORPUSCULAR HGB CONC 32 g/dL (32-36); MEAN CORPUSCULAR VOLUME 87 fL (80-99); MEAN PLATELET VOLUME 8.6 fL (9.0-12.2); MONOCYTES # (AUTO) 0.6 X 10^3 (0.0-1.0); MONOCYTES % (AUTO) 7 % (0-12); NEUTROPHILS # (AUTO) 6.6 X 10^3 (1.8-7.8); NEUTROPHILS % (AUTO) 71 % (42-75); PLATELET COUNT 276 10^3/uL (130-400); WHITE BLOOD COUNT 9.3 10^3/uL (4.3-11.0)
--- NOTE | 2021-08-02 15:56 | Diagnostic Imaging Report ---
PROCEDURE: US left lower extremity venous. TECHNIQUE: Multiple Real-time grayscale images were obtained over the left lower extremity in various projections. Additional duplex Doppler and color Doppler images were also obtained. INDICATION: Cellulitis and lymphedema. FINDINGS: There is no evidence of left lower extremity DVT. The left lower extremity deep venous system shows normal compressibility with normal response to augmentation and Valsalva. No fluid collection or mass is detected. IMPRESSION: No evidence of left lower extremity DVT. Dictated by: Dictated on workstation # [id number]
[2021-08-02 16:07] LABS: ALBUMIN 3.7 GM/DL (3.2-4.5); POTASSIUM 4.1 MMOL/L (3.6-5.0)
[2021-08-02 16:09] LABS: CALCIUM 9.2 MG/DL (8.5-10.1)
[2021-08-02 16:10] LABS: TOTAL PROTEIN 7.4 GM/DL (6.4-8.2)
[2021-08-02 16:12] LABS: BILIRUBIN,TOTAL 0.3 MG/DL (0.1-1.0)
[2021-08-02 16:14] LABS: CREATININE SERUM 0.82 MG/DL (0.60-1.30)
== END ==
LOC: RAD 15:30
PROVIDERS: ATTEND Family Medicine
DX: L03.116 Cellulitis of left lower limb (principal); I89.0 Lymphedema, not elsewhere classified
CPT/HCPCS: 36415; 80053; 83036; 85025

== ENCOUNTER → 2021-08-02 | Outpatient (CLI) | payer MEDICAID | LOC: WOUNDCARE 14:05 | PROVIDERS: ATTEND Family Medicine | DX: L97.221 Non-pressure chronic ulcer of left calf limited to breakdown of skin (principal); I87.332 Chronic venous hypertension (idiopathic) with ulcer and inflammation of left lower extremity; L03.116 Cellulitis of left lower limb; I89.0 Lymphedema, not elsewhere classified; I82.502 Chronic embolism and thrombosis of unspecified deep veins of left lower extremity; E11.622 Type 2 diabetes mellitus with other skin ulcer | CPT/HCPCS: 99213 ==

== ENCOUNTER → 2021-08-08 | Outpatient (CLI) | payer MEDICAID | LOC: WOUNDCARE 08:19 | PROVIDERS: ATTEND Family Medicine | DX: L97.221 Non-pressure chronic ulcer of left calf limited to breakdown of skin (principal); I87.332 Chronic venous hypertension (idiopathic) with ulcer and inflammation of left lower extremity; L03.116 Cellulitis of left lower limb; I82.502 Chronic embolism and thrombosis of unspecified deep veins of left lower extremity; E11.622 Type 2 diabetes mellitus with other skin ulcer; E11.52 Type 2 diabetes mellitus with diabetic peripheral angiopathy with gangrene | CPT/HCPCS: 11042 ==

== ENCOUNTER → 2021-08-11 | Outpatient (CLI) | payer MEDICAID | LOC: WOUNDCARE 08:17 | PROVIDERS: ATTEND Family Medicine | DX: I87.312 Chronic venous hypertension (idiopathic) with ulcer of left lower extremity (principal); J44.9 Chronic obstructive pulmonary disease, unspecified; E11.40 Type 2 diabetes mellitus with diabetic neuropathy, unspecified; M81.0 Age-related osteoporosis without current pathological fracture; B19.20 Unspecified viral hepatitis C without hepatic coma | CPT/HCPCS: 29581 ==

== ENCOUNTER 2021-08-15 22:16 | Emergency (ER) | payer MEDICAID ==
[~2021-08-15] VITALS: Ht 165 cm; Wt 100.0 kg
[2021-08-15 22:26] VITALS: BP 136/87
--- NOTE | 2021-08-16 10:39 | ED Lower Extremity ---
General Chief Complaint: Skin/Wound Problems Stated Complaint: WOUND TURNING PURPLE Nursing Triage Note: c/o skin discoloration to left proximal anterior barrera after dressing change from wound care today. Source: patient Exam Limitations: no limitations History of Present Illness Date Seen by Provider: Aug 15, 2021 Time Seen by Provider: 22:40 Initial Comments To ER by private vehicle with reports of concern of wound/leg turning purple. She has had an ulcer to the lateral aspect of the left lower leg ongoing which she has been unable to resolve at home. She then saw wound care and had an Unna boot placed yesterday. She states that it was "double wrapped". She then went to [place] with her daughter and after returning home had increasing discomfort in the left leg as well as some reddish-purple around the proximal skin discoloration of the skin at the proximal aspect of the Unna boot at the anterior tibia. She is currently on antibiotics for wound infection in the left leg. She also to started a prednisone taper today for COPD. Onset: this afternoon Severity: moderate Pain/Injury Location: left leg Method of Injury: unknown Modifying Factors: Worse With Movement Allergies and Home Medications Allergies Coded Allergies: aspirin (Verified Allergy, Severe, ANAPHYLAXIS, 03/03/19) ibuprofen (Verified Allergy, Severe, ANAPHYLAXIS, 03/03/19) ketorolac (Verified Allergy, Severe, ANAPHYLAXIS, 03/03/19) tetanus and diphtheria toxoids (Unverified Allergy, Severe, ANAPHYLAXIS, 03/03/19) aloe (Verified Allergy, Mild, RASH, 03/03/19) latex (Verified Allergy, Mild, RASH, 03/03/19) OCCASIONALLY IS IRRITATING SKIN scopolamine (Verified Allergy, Mild, 03/03/19) iodine (Verified Adverse Reaction, Unknown, 03/03/19) Patient states she got dizzy, diaphoretic and saw stars. Uncoded Allergies: ALOE VERA (Allergy, Unknown, 12/23/05) SILK SUTURES (Adverse Reaction, Unknown, BODY REJECTS SUTURES, 10/07/13) Patient Home Medication List Home Medication List Reviewed: Yes Albuterol Sulfate (Proair Hfa) 8.5 Gm Hfa.aer.ad, 2 PUFF IH Q4H PRN for SHORTNESS OF BREATH, (Reported) Entered as Reported by: YOSSI NELSON on 08/10/15 1057 Albuterol Sulfate (Albuterol Sulfate) 2.5 Mg/3 Ml Vial.neb, 2.5 MG NEB TID, (Reported) Entered as Reported by: YOSSI NELSON on 05/28/19 0952 Alprazolam (Alprazolam) 1 Mg Tablet, 1 MG PO BID PRN for ANXIETY, (Reported) Entered as Reported by: JESÚS PHILLIPS on 03/07/15 1623 Ascorbic Acid (Vitamin C) 1,000 Mg Tablet, 1,000 MG PO DAILY, (Reported) Entered as Reported by: SHAMIR SALAZAR on 06/13/21 1034 Calcium Carbonate/Vitamin D3 (Calcium 600 + Vit D 200 Tablet) 1 Each Tablet, 1 EACH PO BID, (Reported) Entered as Reported by: SHAMIR SALAZAR on 06/13/21 1034 Cholecalciferol (Vitamin D3) (Vitamin D3) 25 Mcg Capsule, 25 MCG PO DAILY, (Repo rted) Entered as Reported by: SHAMIR SALAZAR on 06/13/21 1034 Furosemide (Furosemide) 40 Mg Tablet, 40 MG PO DAILY, (Reported) Entered as Reported by: YOSSI NELSON on 03/03/19 1340 Hydrocodone/Acetaminophen (Hydrocodone-Acetamin 10-325 mg) 1 Each Tablet, 1 EACH PO Q6H PRN for PAIN-MODERATE (5-7), (Reported) Entered as Reported by: SHAMIR SALAZAR on 06/13/21 1034 Hyoscyamine Sulfate (Hyoscyamine Sulfate) 0.125 Mg Tab.subl, 0.125 MG SL BID PRN for GI SPASMS, (Reported) Entered as Reported by: SHAMIR SALAZAR on 06/13/21 1034 Ipratropium Clinton (Ipratropium Clinton) 0.2 Mg/1 Ml Solution, 1 VIAL NEB TID, (Reported) Entered as Reported by: JESÚS PHILLIPS on 03/07/15 1640 Loratadine (Loratadine) 10 Mg Tablet, 10 MG PO DAILY, (Reported) Entered as Reported by: JESÚS PHILLIPS on 03/07/15 1623 Montelukast Sodium (Montelukast Sodium) 10 Mg Tablet, 10 MG PO HS, (Reported) Entered as Reported by: MELISSA MONTERO on 05/18/17 1103 Pantoprazole Sodium (Pantoprazole Sodium) 40 Mg Tablet.dr, 40 MG PO DAILY, (Reported) Entered as Reported by: JESÚS PHILLIPS on 03/07/15 1623 Potassium Chloride (K-Tab ER) 10 Meq Tablet.er, 20 MEQ PO BID, (Reported) Entered as Reported by: YOSSI NELSON on 05/28/19 0952 Prednisone (Prednisone) 20 Mg Tab, 40 MG PO UD PRN for PM BEFORE &AM OF CATHERIZATION, (Reported) Entered as Reported by: SHAMIR SALAZAR on 07/20/19 1602 Prednisone (Prednisone) 10 Mg Tab, 10 MG PO DAILY, (Reported) Entered as Reported by: SHAMIR SALAZAR on 06/13/21 1034 Warfarin Sodium (Jantoven) 4 Mg Tablet, 4 MG PO SUN,SAT,TH,SAT @1800, (Reported) Entered as Reported by: YOSSI NELSON on 05/28/19 0952 Warfarin Sodium (Jantoven) 5 Mg Tablet, 5 MG PO MON,,FR@1800, (Reported) Entered as Reported by: SHAMIR SALAZAR on 07/20/19 1602 Review of Systems Constitutional: see HPI EENTM: see HPI Respiratory: no symptoms reported Cardiovascular: no symptoms reported 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: no symptoms reported Musculoskeletal: no symptoms reported Skin: see HPI Psychiatric/Neurological: No Symptoms Reported Past Oiebtli-Ociqdb-Dcdmuw Hx Patient Social History Tobacco Use?: No Substance use?: No Alcohol Use?: No Pt feels they are or have been: No Immunizations Up To Date Tetanus Booster (TDap): Unknown PED Vaccines UTD: No Seasonal Allergies Seasonal Allergies: Yes Past Medical History Surgery/Hospitalization HX: COPD, Surgeries: Yes (C/S X2, KNEE SCOPE, SHOULDER SCOPE, d&C, BILAT ULNAR NERVE, VENA CAVA FILTE) Abdominal, Adenoidectomy, Section, Gallbladder, Hysterectomy, Orthopedic, Tonsillectomy, Tubal Ligation, Vascular Surgery Respiratory: Yes (O2 AT HS 2-3L/NC AND PRN--NOCTURNAL HYPOXIA; ) Asthma, Pneumonia, Chronic Bronchitis, Pulmonary Embolism, COPD Currently Using CPAP: No Currently Using BIPAP: No Cardiac: Yes (MULTIPLE DVT'S AND P.E.'S ) Chronic Edema/Swelling, Deep Vein Thrombosis, High Cholesterol, Hypertension, Peripheral Vascular Neurological: Yes Neuropathy 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 Disorders: 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, Menopausal Sexually Transmitted Disease: No HIV/AIDS: No 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: Yes Kidney Infection, Bladder Infection, Kidney Stones Gastrointestinal: Yes (MULTIPLE HERNIA REPAIRS; MULTIPLE EGD'S /COLONOSCOPIES/POLYPECTOMIES) Abdominal Hernia, Gastroesophageal Reflux, Chronic Constipation, Chronic Diarrhea, Hepatitis, Polyps, Hiatal Hernia, Irritable Bowel Musculoskeletal: Yes (MULTIPLE ORTHO SURGERIES) Arthritis Endocrine: Yes ("PRE-DIABETIC" ) HEENT: Yes (NASAL POLYPS REMOVED) Cataract Loss of Vision: Denies Hearing Impairment: Denies Cancer: No Did You Recieve Any Treatments: No Psychosocial: Yes Anxiety Integumentary: Yes (CHRONIC VENOUS STASIS DERMATITIS AND ULCERS. CELLULTITIS OF LEGS;TATTOOS ) Blood Disorders: Yes (DVT'S/PE'S; PROBABLE PROTEIN C DEFICIENCY) Adverse Reaction/Blood Tranf: No (HAS HAD BLOOD WITH NO PROBLEMS) Family Medical History Alcoholism Alcoholism Arthritis Asthma 19 MOTHER Cancer G8 BROTHER G8 SISTER Cancer of colon Cancer of mouth Cardiovascular disease Cataract Cataracts Chest pain Colon cancer Completed stroke Diabetes mellitus Family history: Allergy Family history: Arthritis Family history: Asthma Family history: Cardiovascular disease Family history: Coronary thrombosis Family history: Diabetes mellitus G8 BROTHER G8 SISTER Family history: Gastrointestinal disease Family history: Hypertension Family history: Thyroid disorder Headache Hearing loss Heart disease 19 MOTHER History of - anemia History of - respiratory disease Hypercholesterolemia Hypercholesterolemia Hypertension 19 FATHER Infertile Malignant neoplasm of lung Myocardial infarction Myocardial infarction Psychotic disorder Respiratory disorder Stroke No Family History of: AIDS Abdominal aortic aneurysm Abdominal aortic aneurysm Horry's disease Horry's disease Alzheimer's disease Aphasia Aphasia Congenital disease Congenital heart disease Congenital heart disease Congestive heart failure Coronary thrombosis Cystic fibrosis Cystic fibrosis Deafness or hearing loss Dementia Dementia Drug abuse Dysphagia Dysphasia Family history: Alzheimer's disease Family history: Breast disease Family history: Glaucoma Family history: Osteoporosis Fibrocystic disease of breast Gastroenteritis Glaucoma Headache disorder Hereditary disease History of - disorder History of drug abuse Human immunodeficiency virus (HIV) seropositivity Infertility Kidney disease Kidney disease Neoplasm Not obtainable due to adoption Osteoporosis Parkinson's disease Parkinson's disease Prostate cancer Psychosocial problem Seizure disorder Seizure disorder Severe allergy Thyroid disease Tuberculosis Tuberculosis Visual disorder Visual impairment Cancer, COPD, Vascular Disease SOCIAL HISTORY: -ETOH--RARE USE NOW, HISTORY OF HEAVY USE/ABUSE -DRUGS-HX OF IV COCAINE USE -SMOKED 1 PPD, QUIT 2000 PAST SURGICAL HISTORY: -C-SECTIONS 1981, 1985 -SHOULDER SURGERY 2007 -LEFT KNEE SURGERY 2008 -D&C 2008 -HYSTERECTOMY/BILATERAL SALPINGO-OOPHORECTOMY 2008 -VENA CAVA FILTER 2009 -EGD 2010 -VEIN STRIPPING IN LEGS 2012 -BILATERAL ELBOW/ULNAR NERVE SURGERY 2012 -MULTIPLE HERNIA REPAIRS -MULTIPLE EGD'S AND COLONOSCOPIES AND POLYPECTOMIES -TONSILLECTOMY/ADENOIDECTOMY -CHOLECYSTECTOMY -NASAL POLYPS REMOVED -BILATERAL LEG RADIOABLATION 06/2018 ADDITIONAL PAST MEDICAL HISTORY: -MULTIPLE DVT'S AND P.E.'S -CHRONIC VENOUS STASIS ULCERATIONS -LEG CELLULITIS Physical Exam Vital Signs Vital Signs - First Documented 08/15/21 22:26 Temp 36.6 Pulse 97 Resp 18 B/P (MAP) 136/87 (103) Pulse Ox 94 O2 Delivery Room Air Capillary Refill : Less Than 3 Seconds Height, Weight, BMI Height: 5'5.00" Weight: 184lbs. 5.0oz. [id number]; 36.00 BMI Method:Stated General Appearance: WD/WN, no apparent distress HEENT: PERRL/EOMI, normal ENT inspection Neck: non-tender, full range of motion Respiratory: no respiratory distress, no accessory muscle use Hips: bilateral hip non-tender, bilateral hip normal inspection, bilateral hip normal range of motion Legs: left leg other (Very faint erythema at the proximal aspect of the Unna boot. This is to the anterior/lateral aspect of the tibia. She would like me to remove the Unna boot and I advised her we can certainly do that but we cannot replace it here. That would need to be done at wound care. She is agreeable. Subsequently the Unna boot was removed with resultant improvement in her pain. There is an ulcer without surrounding cellulitis to the left lateral lower leg.) Knees: bilateral knee non-tender, bilateral knee normal inspection, bilateral knee normal range of motion Ankles: bilateral ankle non-tender, bilateral ankle normal inspection, bilateral ankle normal range of motion Feet: bilateral foot non-tender, bilateral foot normal inspection, bilateral foot normal range of motion Neurologic/Psychiatric: alert, normal mood/affect, oriented x 3 Skin: normal color, warm/dry Progress/Results/Core Measures Results/Orders Vital Signs/I&O 08/15/21 22:26 Temp 36.6 Pulse 97 Resp 18 B/P (MAP) 136/87 (103) Pulse Ox 94 O2 Delivery Room Air Blood Pressure Mean: 103 Departure Impression Primary Impression: Encounter for wound care Disposition: HOME, SELF-CARE Condition: Stable Departure-Patient Inst. Decision time for Depature: 22:50 Patient Instructions: Wound Care (DC) KAMRAN LINDQUIST ENGINEERING GEOLOGIST Aug 16, 2021 10:38
== END 2021-08-15 22:55 | disposition home or self-care (01) ==
LOC: EDUNIT# 22:16 → ER 22:19
DX: Z48.01 Encounter for change or removal of surgical wound dressing (principal); Z91.040 Latex allergy status
CPT/HCPCS: 99281

== ENCOUNTER → 2021-08-15 | Outpatient (CLI) | payer MEDICAID | LOC: WOUNDCARE 08:11 | PROVIDERS: ATTEND Family Medicine | DX: L97.221 Non-pressure chronic ulcer of left calf limited to breakdown of skin (principal); I87.332 Chronic venous hypertension (idiopathic) with ulcer and inflammation of left lower extremity; L03.116 Cellulitis of left lower limb; I89.0 Lymphedema, not elsewhere classified; I82.502 Chronic embolism and thrombosis of unspecified deep veins of left lower extremity; E11.622 Type 2 diabetes mellitus with other skin ulcer; E11.52 Type 2 diabetes mellitus with diabetic peripheral angiopathy with gangrene | CPT/HCPCS: 11042 ==

== ENCOUNTER → 2021-08-16 | Outpatient (CLI) | payer MEDICAID | LOC: WOUNDCARE 10:41 | PROVIDERS: ATTEND Family Medicine | DX: L97.222 Non-pressure chronic ulcer of left calf with fat layer exposed (principal); L03.116 Cellulitis of left lower limb; J44.9 Chronic obstructive pulmonary disease, unspecified; E11.40 Type 2 diabetes mellitus with diabetic neuropathy, unspecified | CPT/HCPCS: 29581 ==

== ENCOUNTER → 2021-08-22 | Outpatient (CLI) | payer MEDICAID | LOC: WOUNDCARE 09:04 | PROVIDERS: ATTEND Family Medicine | DX: L97.221 Non-pressure chronic ulcer of left calf limited to breakdown of skin (principal); I87.332 Chronic venous hypertension (idiopathic) with ulcer and inflammation of left lower extremity; I89.0 Lymphedema, not elsewhere classified; I82.502 Chronic embolism and thrombosis of unspecified deep veins of left lower extremity; E11.622 Type 2 diabetes mellitus with other skin ulcer; E11.52 Type 2 diabetes mellitus with diabetic peripheral angiopathy with gangrene; Z79.52 Long term (current) use of systemic steroids | CPT/HCPCS: 29581 ==

== ENCOUNTER 2021-08-29 09:03 | Outpatient (RCR) | payer MEDICAID ==
[2021-08-29 09:28] LABS: INR 2.4 (0.8-1.4); PROTHROMBIN TIME PATIENT 26.8 SEC (12.2-14.7)
[2021-09-05] MEDS ORDERED: POLY17PO54 PO (16:26)
== END 2021-09-09 | disposition home or self-care (01) ==
LOC: LAB 09:03
PROVIDERS: ATTEND Family Medicine
DX: Z86.718 Personal history of other venous thrombosis and embolism (principal); Z86.711 Personal history of pulmonary embolism
CPT/HCPCS: 36415; 85610

== ENCOUNTER → 2021-08-29 | Outpatient (CLI) | payer MEDICAID | LOC: WOUNDCARE 08:17 | PROVIDERS: ATTEND Family Medicine | DX: I87.332 Chronic venous hypertension (idiopathic) with ulcer and inflammation of left lower extremity (principal); L97.221 Non-pressure chronic ulcer of left calf limited to breakdown of skin; I89.0 Lymphedema, not elsewhere classified; I82.502 Chronic embolism and thrombosis of unspecified deep veins of left lower extremity; E11.622 Type 2 diabetes mellitus with other skin ulcer; Z79.52 Long term (current) use of systemic steroids | CPT/HCPCS: 99213 ==

== ENCOUNTER 2021-08-31 08:42 | Inpatient (IN) | payer MEDICAID ==
[~2021-08-31] VITALS: Ht 165 cm; Wt 103.7 kg
[2021-08-31] MEDS ORDERED: DOXYCYCLINE 100 MG (VIBRAMYCIN) TABLET PO STA (08:53)
[2021-08-31] MEDS ORDERED: ONDANSETRON 4 MG/2 ML (SDV) Z0FRAN IV PRN (09:00)
[2021-08-31] MEDS ORDERED: CEFEPIME INJECTION 1,000 MG in NS (IVPB) 50 ML IV ONE (09:00)
[2021-08-31] MEDS ORDERED: LACTATED RINGERS 3,000 ML IV PRN (09:00)
[2021-08-31] MEDS ORDERED: ACETAMINOPHEN 500 MG TAB (TYLENOL) PO PRN (09:00)
[2021-08-31] MEDS ORDERED: ALBUTEROL/IPRATROP (COMBIVENT RESPIMAT) 4 GM INHALER IH STA (09:04)
--- NOTE | 2021-08-31 09:04 | ED General ---
General Chief Complaint: Respiratory Problems Stated Complaint: TACHY Nursing Triage Note: PT PRESENTS TO ED VIA EMS FROM HOME WITH COMPLAINTS OF RAPID HR AND SOB SINCE 0700 THIS AM. Source of Information: Patient, EMS Exam Limitations: No Limitations History of Present Illness Date Seen by Provider: Aug 31, 2021 Time Seen by Provider: 08:48 Initial Comments 61-year-old female with past medical history of diabetes, multiple previous blo od clots now with an IVC filter and on warfarin, COPD on 2 L oxygen mostly at nighttime, hypertension coming in via EMS from home due to palpitations and shortness of breath. She woke up around 4 AM like normal to eat breakfast. At that time shortly afterward she felt like her heart was racing and she began feeling more short of breath. She says she has had increasing cough with yellow sputum. She is on chronic steroids at 10 mg for a couple of years. Has not missed any of her medications. Last was on antibiotics as an outpatient a couple weeks ago. Denies any chest pain, abdominal pain, nausea, vomiting, diarrhea, focal weakness or numbness, rash, or any other concerns. She has a chronic wound to her left leg which she sees wound care for and has been doing well. Allergies and Home Medications Allergies Coded Allergies: aspirin (Verified Allergy, Severe, ANAPHYLAXIS, 03/03/19) ibuprofen (Verified Allergy, Severe, ANAPHYLAXIS, 03/03/19) ketorolac (Verified Allergy, Severe, ANAPHYLAXIS, 03/03/19) tetanus and diphtheria toxoids (Unverified Allergy, Severe, ANAPHYLAXIS, 03/03/19) aloe (Verified Allergy, Mild, RASH, 03/03/19) latex (Verified Allergy, Mild, RASH, 03/03/19) OCCASIONALLY IS IRRITATING SKIN scopolamine (Verified Allergy, Mild, 03/03/19) iodine (Verified Adverse Reaction, Unknown, 03/03/19) Patient states she got dizzy, diaphoretic and saw stars. Uncoded Allergies: ALOE VERA (Allergy, Unknown, 12/23/05) SILK SUTURES (Adverse Reaction, Unknown, BODY REJECTS SUTURES, 10/07/13) Patient Home Medication List Home Medication List Reviewed: Yes Albuterol Sulfate (Proair Hfa) 8.5 Gm Hfa.aer.ad, 2 PUFF IH Q4H PRN for SHORTNESS OF BREATH, (Reported) Entered as Reported by: YOSSI NELSON on 08/10/15 1057 Albuterol Sulfate (Albuterol Sulfate) 2.5 Mg/3 Ml Vial.neb, 2.5 MG NEB TID, (Re ported) Entered as Reported by: YOSSI NELSON on 05/28/19 0952 Alprazolam (Alprazolam) 1 Mg Tablet, 1 MG PO BID PRN for ANXIETY, (Reported) Entered as Reported by: JESÚS PHILLIPS on 03/07/15 1623 Ascorbic Acid (Vitamin C) 1,000 Mg Tablet, 1,000 MG PO DAILY, (Reported) Entered as Reported by: SHAMIR SALAZAR on 06/13/21 1034 Calcium Carbonate/Vitamin D3 (Calcium 600 + Vit D 200 Tablet) 1 Each Tablet, 1 EACH PO BID, (Reported) Entered as Reported by: SHAMIR SALAZAR on 06/13/21 1034 Cholecalciferol (Vitamin D3) (Vitamin D3) 25 Mcg Capsule, 25 MCG PO DAILY, (Reported) Entered as Reported by: SHAMIR SALAZAR on 06/13/21 1034 Furosemide (Furosemide) 40 Mg Tablet, 40 MG PO DAILY, (Reported) Entered as Reported by: YOSSI NELSON on 03/03/19 1340 Hydrocodone/Acetaminophen (Hydrocodone-Acetamin 10-325 mg) 1 Each Tablet, 1 EACH PO Q6H PRN for PAIN-MODERATE (5-7), (Reported) Entered as Reported by: SHAMIR SALAZAR on 06/13/21 1034 Hyoscyamine Sulfate (Hyoscyamine Sulfate) 0.125 Mg Tab.subl, 0.125 MG SL BID PRN for GI SPASMS, (Reported) Entered as Reported by: SHAMIR SALAZAR on 06/13/21 1034 Ipratropium [place] (Ipratropium [place]) 0.2 Mg/1 Ml Solution, 1 VIAL NEB TID, (Reported) Entered as Reported by: JESÚS PHILLIPS on 03/07/15 1640 Loratadine (Loratadine) 10 Mg Tablet, 10 MG PO DAILY, (Reported) Entered as Reported by: JESÚS PHILLIPS on 03/07/15 1623 Montelukast Sodium (Montelukast Sodium) 10 Mg Tablet, 10 MG PO HS, (Reported) Entered as Reported by: MELISSA MONTERO on 05/18/17 1103 Pantoprazole Sodium (Pantoprazole Sodium) 40 Mg Tablet.dr, 40 MG PO DAILY, (Reported) Entered as Reported by: JESÚS PHILLIPS on 03/07/15 1623 Potassium Chloride (K-Tab ER) 10 Meq Tablet.er, 20 MEQ PO BID, (Reported) Entered as Reported by: YOSSI NELSON on 05/28/19 0952 Prednisone (Prednisone) 20 Mg Tab, 40 MG PO UD PRN for PM BEFORE &AM OF CATHERIZATION, (Reported) Entered as Reported by: SHAMIR SALAZAR on 07/20/19 1602 Prednisone (Prednisone) 10 Mg Tab, 10 MG PO DAILY, (Reported) Entered as Reported by: SHAMIR SALAZAR on 06/13/21 1034 Warfarin Sodium (Jantoven) 4 Mg Tablet, 4 MG PO SUN,SAT,TH,SAT @1800, (Reported) Entered as Reported by: YOSSI NELSON on 05/28/19 0952 Warfarin Sodium (Jantoven) 5 Mg Tablet, 5 MG PO SAT,,FR@1800, (Reported) Entered as Reported by: SHAMIR SALAZAR on 07/20/19 1602 Review of Systems Review of Systems Constitutional: no symptoms reported EENTM: No blurred vision Respiratory: cough, short of breath Cardiovascular: No chest pain Gastrointestinal: No abdominal pain 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: no symptoms reported Musculoskeletal: no symptoms reported Skin: no symptoms reported Psychiatric/Neurological: No Symptoms Reported Hematologic/Lymphatic: No Symptoms Reported Immunological/Allergic: no symptoms reported All Other Systems Reviewed Negative Unless Noted: Yes Past Rhrsecl-Giwcde-Vxmkzt Hx Patient Social History Tobacco Use?: No Smoking Status: Former Smoker Substance use?: No Alcohol Use?: No Pt feels they are or have been: No Immunizations Up To Date Tetanus Booster (TDap): Unknown PED Vaccines UTD: No Seasonal Allergies Seasonal Allergies: Yes Past Medical History Surgery/Hospitalization HX: COPD, htn, dm, heart cath in jun 2021 with no intervention, l leg wound, dvt, pe Surgeries: Yes (C/S X2, KNEE SCOPE, SHOULDER SCOPE, d&C, BILAT ULNAR NERVE, VENA CAVA FILTE) Abdominal, Adenoidectomy, Section, Gallbladder, Hysterectomy, Orthopedic, Tonsillectomy, Tubal Ligation, Vascular Surgery Respiratory: Yes (O2 AT HS 2-3L/NC AND PRN--NOCTURNAL HYPOXIA; ) Asthma, Pneumonia, Chronic Bronchitis, Pulmonary Embolism, COPD Currently Using CPAP: No Currently Using BIPAP: No Cardiac: Yes (MULTIPLE DVT'S AND P.E.'S ) Chronic Edema/Swelling, Deep Vein Thrombosis, High Cholesterol, Hypertension, Peripheral Vascular Neurological: Yes Neuropathy 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, Menopausal Sexually Transmitted Disease: No HIV/AIDS: No 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: Yes Kidney Infection, Bladder Infection, Kidney Stones Gastrointestinal: Yes (MULTIPLE HERNIA REPAIRS; MULTIPLE EGD'S /COLONOSCOPIES/POLYPECTOMIES) Abdominal Hernia, Gastroesophageal Reflux, Chronic Constipation, Chronic Diar jasiel, Hepatitis, Polyps, Hiatal Hernia, Irritable Bowel Musculoskeletal: Yes (MULTIPLE ORTHO SURGERIES) Arthritis Endocrine: Yes ("PRE-DIABETIC" ) HEENT: Yes (NASAL POLYPS REMOVED) Cataract Loss of Vision: Denies Hearing Impairment: Denies Cancer: No Did You Recieve Any Treatments: No Psychosocial: Yes Anxiety Integumentary: Yes (CHRONIC VENOUS STASIS DERMATITIS AND ULCERS. CELLULTITIS OF LEGS;TATTOOS ) Blood Disorders: Yes (DVT'S/PE'S; PROBABLE PROTEIN C DEFICIENCY) Adverse Reaction/Blood Tranf: No (HAS HAD BLOOD WITH NO PROBLEMS) Family Medical History Alcoholism Alcoholism Arthritis Asthma 19 MOTHER Cancer G8 BROTHER G8 SISTER Cancer of colon Cancer of mouth Cardiovascular disease Cataract Cataracts Chest pain Colon cancer Completed stroke Diabetes mellitus Family history: Allergy Family history: Arthritis Family history: Asthma Family history: Cardiovascular disease Family history: Coronary thrombosis Family history: Diabetes mellitus G8 BROTHER G8 SISTER Family history: Gastrointestinal disease Family history: Hypertension Family history: Thyroid disorder Headache Hearing loss Heart disease 19 MOTHER History of - anemia History of - respiratory disease Hypercholesterolemia Hypercholesterolemia Hypertension 19 FATHER Infertile Malignant neoplasm of lung Myocardial infarction Myocardial infarction Psychotic disorder Respiratory disorder Stroke No Family History of: AIDS Abdominal aortic aneurysm Abdominal aortic aneurysm Fernando's disease Melrude's disease Alzheimer's disease Aphasia Aphasia Congenital disease Congenital heart disease Congenital heart disease Congestive heart failure Coronary thrombosis Cystic fibrosis Cystic fibrosis Deafness or hearing loss Dementia Dementia Drug abuse Dysphagia Dysphasia Family history: Alzheimer's disease Family history: Breast disease Family history: Glaucoma Family history: Osteoporosis Fibrocystic disease of breast Gastroenteritis Glaucoma Headache disorder Hereditary disease History of - disorder History of drug abuse Human immunodeficiency virus (HIV) seropositivity Infertility Kidney disease Kidney disease Neoplasm Not obtainable due to adoption Osteoporosis Parkinson's disease Parkinson's disease Prostate cancer Psychosocial problem Seizure disorder Seizure disorder Severe allergy Thyroid disease Tuberculosis Tuberculosis Visual disorder Visual impairment Cancer, COPD, Vascular Disease SOCIAL HISTORY: -ETOH--RARE USE NOW, HISTORY OF HEAVY USE/ABUSE -DRUGS-HX OF IV COCAINE USE -SMOKED 1 PPD, QUIT 2000 PAST SURGICAL HISTORY: -C-SECTIONS 1981, 1985 -SHOULDER SURGERY 2007 -LEFT KNEE SURGERY 2008 -D&C 2008 -HYSTERECTOMY/BILATERAL SALPINGO-OOPHORECTOMY 2008 -VENA CAVA FILTER 2009 -EGD 2010 -VEIN STRIPPING IN LEGS 2012 -BILATERAL ELBOW/ULNAR NERVE SURGERY 2012 -MULTIPLE HERNIA REPAIRS -MULTIPLE EGD'S AND COLONOSCOPIES AND POLYPECTOMIES -TONSILLECTOMY/ADENOIDECTOMY -CHOLECYSTECTOMY -NASAL POLYPS REMOVED -BILATERAL LEG RADIOABLATION 06/2018 ADDITIONAL PAST MEDICAL HISTORY: -MULTIPLE DVT'S AND P.E.'S -CHRONIC VENOUS STASIS ULCERATIONS -LEG CELLULITIS Physical Exam-Suspected Sepsis Physical Exam Vital Signs Vital Signs - First Documented 08/31/21 08:51 Temp 38.1 Pulse 142 Resp 24 B/P (MAP) 189/130 (149) Pulse Ox 94 O2 Delivery Nasal Cannula O2 Flow Rate 2.00 Capillary Refill : Less Than 3 Seconds Blood Pressure Mean: 149 Height, Weight, BMI Height: 5'5.00" Weight: 184lbs. 5.0oz. 83.008159ad; 36.00 BMI Method:Stated General Appearance: Anxious, Chronically ill, Mild Distress Eyes: Bilateral Eye Normal Inspection, Bilateral Eye PERRL HEENT: PERRL/EOMI, Normal ENT Inspection, Pharynx Normal Neck: Full Range of Motion, Normal Inspection, Non Tender, Supple Respiratory: Chest Non Tender, No Accessory Muscle Use, Wheezing Cardiovascular: No Edema, Normal Peripheral Pulses, Tachycardia Gastrointestinal: Normal Bowel Sounds, Non Tender, Soft; No Distended, No Guarding Back: Normal Inspection, No CVA Tenderness, No Vertebral Tenderness Extremity: Normal Capillary Refill, Normal Inspection, Normal Range of Motion, Non Tender, No Calf Tenderness, No Pedal Edema, Other Neurologic/Psychiatric: Alert, Oriented x3, No Motor/Sensory Deficits, Normal Mood/Affect Skin: normal color, warm/dry Lymphatic: No Adenopathy Focused Exam Sepsis Stage: Severe Sepsis Possible Source: Unknown Lactate Level 08/31/21 08:48: Lactic Acid Level 2.69*H 4/21/22 11:24: Lactic Acid Level 1.79 Time of Focused Exam: 09:30 Respiratory: Chest Non Tender, No Accessory Muscle Use, No Respiratory Distress, Wheezing Cardiovascular: Normal Peripheral Pulses, Tachycardia Capillary Refill: Less Than 3 Seconds Peripheral Pulses: 2+ Radial Pulses (R), 2+ Radial Pulses (L) Skin: normal color, warm/dry Lactic Acid Level Laboratory Tests Test 08/31/21 11:24 Lactic Acid Level 1.79 MMOL/L (0.50-2.00) Within 3hrs of presentation: Admin fluids, Admin ABX, Blood cultures prior to ABX's, Focus exam, Lactate level Progress/Results/Core Measures Suspected Sepsis SIRS Temperature: Pulse: 142 Respiratory Rate: 24 Laboratory Tests 08/31/21 08:48: White Blood Count 8.5 Blood Pressure 189 /130 Mean: 149 08/31/21 08:48: Lactic Acid Level 2.69*H 08/31/21 11:24: Lactic Acid Level 1.79 Laboratory Tests 08/31/21 08:48: Creatinine 0.71, INR Comment 2.3H, Platelet Count 262, Total Bilirubin 0.3 Results/Orders Lab Results Laboratory Tests Test 08/31/21 08:48 08/31/21 08:55 08/31/21 11:24 08/31/21 11:49 Range/Units White Blood Count 8.5 4.3-11.0 10^3/uL Red Blood Count 4.73 3.80-5.11 10^6/uL Hemoglobin 12.8 11.5-16.0 g/dL Hematocrit 41 35-52 % Mean Corpuscular Volume 88 80-99 fL Mean Corpuscular Hemoglobin 27 25-34 pg Mean Corpuscular Hemoglobin Concent 31 L 32-36 g/dL Red Cell Distribution Width 16.2 H 10.0-14.5 % Platelet Count 262 130-400 10^3/uL Mean Platelet Volume 8.7 L 9.0-12.2 fL Immature Granulocyte % (Auto) 0 % Neutrophils (%) (Auto) 50 42-75 % Lymphocytes (%) (Auto) 37 12-44 % Monocytes (%) (Auto) 8 0-12 % Eosinophils (%) (Auto) 5 0-10 % Basophils (%) (Auto) 0 0-10 % Neutrophils # (Auto) 4.3 1.8-7.8 10^3/uL Lymphocytes # (Auto) 3.1 1.0-4.0 10^3/uL Monocytes # (Auto) 0.7 0.0-1.0 10^3/uL Eosinophils # (Auto) 0.4 H 0.0-0.3 10^3/uL Basophils # (Auto) 0.0 0.0-0.1 10^3/uL Immature Granulocyte # (Auto) 0.0 0.0-0.1 10^3/uL Prothrombin Time 25.9 H 12.2-14.7 SEC INR Comment 2.3 H 0.8-1.4 Activated Partial Thromboplast Time 34 24-35 SEC Sodium Level 143 135-145 MMOL/L Potassium Level 3.7 3.6-5.0 MMOL/L Chloride Level 107 98-107 MMOL/L Carbon Dioxide Level 22 21-32 MMOL/L Anion Gap 14 5-14 MMOL/L Blood Urea Nitrogen 10 7-18 MG/DL Creatinine 0.71 0.60-1.30 MG/DL Estimat Glomerular Filtration Rate 95 BUN/Creatinine Ratio 14 Glucose Level 186 H 70-105 MG/DL Lactic Acid Level 2.69 *H 1.79 0.50-2.00 MMOL/L Calcium Level 9.0 8.5-10.1 MG/DL Corrected Calcium 9.2 8.5-10.1 MG/DL Total Bilirubin 0.3 0.1-1.0 MG/DL Aspartate Amino Transf (AST/SGOT) 16 5-34 U/L Alanine Aminotransferase (ALT/SGPT) 23 0-55 U/L Alkaline Phosphatase 77 40-136 U/L Lactate Dehydrogenase 245 H 125-220 U/L Troponin I < 0.028 <0.028 NG/ML C-Reactive Protein High Sensitivity 0.12 0.00-0.50 MG/DL B-Type Natriuretic Peptide < 10.0 <100.0 PG/ML Total Protein 7.1 6.4-8.2 GM/DL Albumin 3.8 3.2-4.5 GM/DL Procalcitonin 0.02 <0.10 NG/ML Influenza Type A (RT-PCR) Not Detected Not Detecte Influenza Type B (RT-PCR) Not Detected Not Detecte SARS-CoV-2 RNA (RT-PCR) Not Detected Not Detecte Urine Color YELLOW Urine Clarity CLEAR Urine pH 6.5 5-9 Urine Specific [place] <=1.005 1.016-1.022 Urine Protein NEGATIVE NEGATIVE Urine Glucose (UA) NEGATIVE NEGATIVE Urine Ketones NEGATIVE NEGATIVE Urine Nitrite NEGATIVE NEGATIVE Urine Bilirubin NEGATIVE NEGATIVE Urine Urobilinogen 0.2 < = 1.0 MG/DL Urine Leukocyte Esterase NEGATIVE NEGATIVE Urine RBC (Auto) 1+ H NEGATIVE Urine RBC RARE /HPF Urine WBC NONE /HPF Urine Squamous Epithelial Cells 0-2 /HPF Urine Crystals NONE /LPF Urine Bacteria NEGATIVE /HPF Urine Casts NONE /LPF Urine Mucus NEGATIVE /LPF Urine Culture Indicated NO Glucometer 141 H 70-110 MG/DL My Orders Orders - WILLI AGUIAR MD Procalcitonin (Pct) (08/31/21 08:53) Hs C Reactive Protein (08/31/21 08:53) LDH (08/31/21 08:53) Influenza A And B By Pcr (08/31/21 08:53) Covid 19 Inhouse Test (08/31/21 08:53) Cbc With Automated Diff (08/31/21 08:53) Comprehensive Metabolic Panel (08/31/21 08:53) Blood Culture (08/31/21 08:53) Sputum Culture (08/31/21 08:53) Urinalysis (08/31/21 08:53) Urine Culture (08/31/21 08:53) Protime With Inr (08/31/21 08:53) Partial Thromboplastin Time (08/31/21 08:53) Chest 1 View, Ap/Pa Only (08/31/21 08:53) Acetaminophen Tablet (Tylenol Tablet) (08/31/21 09:00) Ed Iv/Invasive Line Start (08/31/21 08:53) Ed Iv/Invasive Line Start (08/31/21 08:53) Troponin I [place] (08/31/21 08:53) Vital Signs Adult Sepsis Patie Q15M (08/31/21 08:53) Ondansetron Injection (Zofran Injectio (08/31/21 09:00) O2 (08/31/21 08:53) Remove Rings In Anticipation O (08/31/21 08:53) Lactic Acid Analyzer (08/31/21 08:53) Lactated Ringers (Lr 1000 Ml Iv Solution (08/31/21 09:00) Cefepime Injection (Maxipime Injection) (08/31/21 09:00) Bnp [place] (08/31/21 08:53) Doxycycline Hyclate Tablet (Vibramycin T (08/31/21 08:53) Albuterol/Ipratropium Inhaler (Combivent (08/31/21 09:04) Methylprednisolone Sod Succ (Solu-Medrol (08/31/21 09:15) Albuterol/Ipra Inhalation Soln (Duoneb I (08/31/21 10:30) Svn Small Volume Nebulizer (08/31/21 10:27) Medications Given in ED Current Medications Medications Dose Ordered Sig/Nahomi Route Start Time Stop Time Status Last Admin Dose Admin Acetaminophen 1,000 mg ONCE PRN PO 08/31/21 09:00 08/31/21 09:02 DC 08/31/21 09:01 1,000 MG Albuterol/ Ipratropium 3 ml ONCE ONCE INH 08/31/21 10:30 08/31/21 10:31 DC 08/31/21 10:44 3 ML Cefepime HCl 1000 mg/Sodium Chloride 50 ml @ 100 mls/hr ONCE ONCE IV 08/31/21 09:00 08/31/21 09:29 DC 08/31/21 09:57 100 MLS/HR Lactated Ringer's 3,000 ml @ 3,000 mls/hr PRN PRN IV 08/31/21 09:00 08/31/21 09:01 3,000 MLS/HR Methylprednisolone Sodium Succinate 60 mg ONCE ONCE IV 08/31/21 09:15 08/31/21 09:16 DC 08/31/21 10:02 60 MG Ondansetron HCl 4 mg PRN PRN IV 08/31/21 09:00 08/31/21 09:02 DC 08/31/21 09:01 4 MG Vital Signs/I&O 08/31/21 08/31/21 08/31/21 08/31/21 08:51 08:51 10:44 11:27 Temp 38.1 Pulse 142 117 Resp 24 22 B/P (MAP) 189/130 (149) 131/88 Pulse Ox 94 94 92 O2 Delivery Nasal Cannula Nasal Cannula Nasal Cannula Nasal Cannula O2 Flow Rate 2.00 2.00 2.00 2.00 08/31/21 11:45 O2 Delivery Nasal Cannula O2 Flow Rate 2.00 Capillary Refill : Less Than 3 Seconds Blood Pressure Mean: 149 Progress Note : Progress Note 61yoF with above history coming in due to SOA. The patient was on 2 L oxygen on presentation and tachycardic to 130s and 140s. She was febrile. Given concern for sepsis, IV was started, given a bolus of IV fluids, broad-spectrum antibiotics with cefepime and doxycycline given concerns for likely respiratory. She was given DuoNeb as well as IV steroids. Lactate elevated and white blood cell count was normal. Creatinine near her baseline. Chest x-ray with possible bibasilar pneumonia. We will admit the patient to the MedSurg unit. Contacted Dr. Wolf for this. She will be admitted under inpatient status. ECG Initial ECG Impression Date: Aug 31, 2021 Initial ECG Impression Time: 08:47 Initial ECG Rate: 136 Initial ECG Rhythm: S.Tach Comment Narrow QRS, normal axis, no significant ST changes or T wave abnormalities Departure Impression Primary Impression: Severe sepsis Additional Impression: Pneumonia Qualified Codes: J18.9 - Pneumonia, unspecified organism Disposition: ADMITTED INPATIENT Condition: Stable Admissions Decision to Admit Reason: Admit from ER (General) Decision to Admit/Date: Aug 31, 2021 Time/Decision to Admit Time: 10:15 Departure-Patient Inst. Referrals: LEAH WOLF MD (PCP/Family) Primary Care Physician WILLI AGUIAR MD Aug 31, 2021 09:04
[2021-08-31 09:05] LABS: BASOPHILS % (AUTO) 0 % (0-10); EOSINOPHILS # (AUTO) 0.4 10^3/uL (0.0-0.3); EOSINOPHILS % (AUTO) 5 % (0-10); HEMATOCRIT 41 % (35-52); HEMOGLOBIN 12.8 g/dL (11.5-16.0); LYMPHOCYTES # (AUTO) 3.1 10^3/uL (1.0-4.0); LYMPHOCYTES % (AUTO) 37 % (12-44); MEAN CORPUSCULAR HEMOGLOBIN 27 pg (25-34); MEAN CORPUSCULAR HGB CONC 31 g/dL (32-36); MEAN CORPUSCULAR VOLUME 88 fL (80-99); MEAN PLATELET VOLUME 8.7 fL (9.0-12.2); MONOCYTES # (AUTO) 0.7 10^3/uL (0.0-1.0); MONOCYTES % (AUTO) 8 % (0-12); NEUTROPHILS # (AUTO) 4.3 10^3/uL (1.8-7.8); NEUTROPHILS % (AUTO) 50 % (42-75); PLATELET COUNT 262 10^3/uL (130-400); WHITE BLOOD COUNT 8.5 10^3/uL (4.3-11.0)
[2021-08-31 09:07] LABS: BILIRUBIN,URINE NEGATIVE (NEGATIVE); CLARITY,URINE CLEAR; COLOR,URINE YELLOW; GLUCOSE, URINE (UA) NEGATIVE (NEGATIVE); KETONES,URINE NEGATIVE (NEGATIVE); LEUKOCYTE ESTERASE ,URINE NEGATIVE (NEGATIVE); NITRITE,URINE NEGATIVE (NEGATIVE); PH,URINE 6.5 (5-9); PROTEIN,URINE NEGATIVE (NEGATIVE)
[2021-08-31 09:15] LABS: ALBUMIN 3.8 GM/DL (3.2-4.5)
[2021-08-31] MEDS ORDERED: methylPREDNISolone 125 MG (Solu-MEDROL) VIAL IV ONE (09:15)
[2021-08-31 09:16] LABS: CHLORIDE 107 MMOL/L (98-107); POTASSIUM 3.7 MMOL/L (3.6-5.0); SODIUM 143 MMOL/L (135-145)
[2021-08-31 09:18] LABS: GLUCOSE 186 MG/DL (70-105); TOTAL PROTEIN 7.1 GM/DL (6.4-8.2)
[2021-08-31 09:19] LABS: CARBON DIOXIDE 22 MMOL/L (21-32); INR 2.3 (0.8-1.4); PROTHROMBIN TIME PATIENT 25.9 SEC (12.2-14.7)
[2021-08-31 09:20] LABS: BILIRUBIN,TOTAL 0.3 MG/DL (0.1-1.0)
[2021-08-31 09:21] LABS: ALKALINE PHOSPHATASE 77 U/L (40-136)
[2021-08-31 09:22] LABS: CREATININE SERUM 0.71 MG/DL (0.60-1.30); GFR ESTIMATED 95
[2021-08-31 09:22] LABS: BACTERIA,URINE NEGATIVE /HPF; RBC,URINE RARE /HPF; SQUAMOUS EPITHELIAL CELL,UR 0-2 /HPF
[2021-08-31 09:23] LABS: BUN/CREATININE RATIO 14
[2021-08-31 09:24] LABS: ALANINE AMINOTRANSFERASE 23 U/L (0-55)
--- NOTE | 2021-08-31 09:24 | Diagnostic Imaging Report ---
CLINICAL INDICATION: Patient complains of rapid heart rate and shortness of breath since 0700. EXAM: Portable chest x-ray upright view. COMPARISON: Chest x-ray dated 05/03/2021. Chest x-ray dated 03/04/2019 and 05/28/2019. CT scan of the abdomen and pelvis dated 12/05/2019. FINDINGS: Mild curvilinear opacities involving the right lung base which may be related to atelectasis. There is no definite lung infiltrate. There is stable appearance of the cardiac silhouette and lung base regions likely related to prominent pericardial fat which is best seen on CT scan of the abdomen dated 12/05/2019. Pulmonary vasculature and cardiac silhouette are within normal limits. There is no definite pleural effusion or pneumothorax. There are degenerative spurs involving the thoracic spine. IMPRESSION: 1: There is no definite lung infiltrate. There is mild right bibasilar atelectasis. 2: Stable appearance of the chest with a prominent pericardial fat-pad. Dictated by: Dictated on workstation # [id number]
[2021-08-31] MEDS ORDERED: RT-ALBUTEROL/IPRATROPIUM 3 ML (DUONEB) VIAL INH ONE (10:30)
[2021-08-31] MEDS ORDERED: CATHETER FLUSH 10 ML SYR IVP PRN ×2 (12:15→12:30)
[2021-08-31] MEDS ORDERED: RT-ALBUTEROL SULF 2.5 MG/3 ML PRE-MIX VIAL INH PRN (12:30)
[2021-08-31 12:45] VITALS: BP 126/76
[2021-08-31] MEDS: FUROSEMIDE 40 MG (LASIX) TAB PO SCH (13:09)
[2021-08-31] MEDS: KCL 10 MEQ TAB (MICRO K) PO SCH ×2 (13:09→17:35)
[2021-08-31 14:00] VITALS: BP 126/87
[2021-08-31] MEDS ORDERED: CATHETER FLUSH 10 ML SYR IVP SCH (14:00)
[2021-08-31] MEDS: CATHETER FLUSH 10 ML SYR IVP SCH ×2 (14:16→21:14)
[2021-08-31] MEDS: RT-ALBUTEROL/IPRATROPIUM 3 ML (DUONEB) VIAL IH SCH ×3 (14:32→21:34)
[2021-08-31 15:31] VITALS: BP 118/75
--- NOTE | 2021-08-31 16:04 | History & Physicial ---
History of Present Illness History of Present Illness Reason for visit/HPI 61 yo presented to [facility] ED via EMS following significant dyspnea. She basically was at home this morning doing her usual routine morning medications and having her coffee. She reports she became extremely dyspneic and this prompted her to seek medical care. She contacted family and ultimately EMS arrived to take her to hospital. She has known COPD with frequent exacerbations and he is on 2 L oxygen at home. She does admit to her heart racing as well. She has had a cough with occasional yellow-tinged sputum. Date of Admission Aug 31, 2021 at 10:41 Date Seen by a Provider: Aug 31, 2021 Time Seen by a Provider: 16:30 I consulted on this patient on 08/31/21 16:03 Attending Physician Jay Wolf MD Admitting Physician Jay Wolf MD Consult Allergies and Home Medications Allergies Coded Allergies: aspirin (Verified Allergy, Severe, ANAPHYLAXIS, 03/03/19) ibuprofen (Verified Allergy, Severe, ANAPHYLAXIS, 03/03/19) ketorolac (Verified Allergy, Severe, ANAPHYLAXIS, 03/03/19) tetanus and diphtheria toxoids (Unverified Allergy, Severe, ANAPHYLAXIS, 03/03/19) aloe (Verified Allergy, Mild, RASH, 03/03/19) latex (Verified Allergy, Mild, RASH, 03/03/19) OCCASIONALLY IS IRRITATING SKIN scopolamine (Verified Allergy, Mild, 03/03/19) iodine (Verified Adverse Reaction, Unknown, 03/03/19) Patient states she got dizzy, diaphoretic and saw stars. Uncoded Allergies: ALOE VERA (Allergy, Unknown, 12/23/05) SILK SUTURES (Adverse Reaction, Unknown, BODY REJECTS SUTURES, 10/07/13) Patient Home Medication List Home Medication List Reviewed: Yes Albuterol Sulfate (Proair Hfa) 8.5 Gm Hfa.aer.ad, 2 PUFF IH Q4H PRN for SHORTNESS OF BREATH, (Reported) Entered as Reported by: YOSSI NELSON on 08/10/15 1057 Last Action: Held Albuterol Sulfate (Albuterol Sulfate) 2.5 Mg/3 Ml Vial.neb, 2.5 MG NEB TID, (Reported) Entered as Reported by: YOSSI NELSON on 05/28/19 0944 Last Action: Held Alprazolam (Alprazolam) 1 Mg Tablet, 1 MG PO BID PRN for ANXIETY, (Reported) Entered as Reported by: JESÚS PHILLIPS on 03/07/15 162 Last Action: Continued Ascorbic Acid (Vitamin C) 1,000 Mg Tablet, 1,000 MG PO DAILY, (Reported) Entered as Reported by: SHAMIR SALAZAR on 06/13/21 103 Last Action: Held Calcium Carbonate/Vitamin D3 (Calcium 600 + Vit D 200 Tablet) 1 Each Tablet, 1 EACH PO BID, (Reported) Entered as Reported by: SHAMIR SALAZAR on 06/13/21 103 Last Action: Held Cholecalciferol (Vitamin D3) (Vitamin D3) 25 Mcg Capsule, 25 MCG PO DAILY, (Reported) Entered as Reported by: SHAMIR SALAZAR on 06/13/211033 Last Action: Held Furosemide (Furosemide) 40 Mg Tablet, 40 MG PO DAILY, (Reported) Entered as Reported by: YOSSI NELSON on 03/03/19 1340 Last Action: Held Hydrocodone/Acetaminophen (Hydrocodone-Acetamin 10-325 mg) 1 Each Tablet, 1 EACH PO Q6H PRN for PAIN-MODERATE (5-7), (Reported) Entered as Reported by: SHAMIR SALAZAR on 06/13/21 103 Last Action: Continued Hyoscyamine Sulfate (Hyoscyamine Sulfate) 0.125 Mg Tab.subl, 0.125 MG SL Q4H PRN for GI SPASMS, (Reported) Entered as Reported by: SHAMIR SALAZAR on 06/13/21 103 Last Action: Held Ipratropium Haven (Ipratropium Haven) 0.2 Mg/1 Ml Solution, 1 VIAL NEB TID, (Reported) Entered as Reported by: JESÚS PHILLIPS on 03/07/15 1640 Last Action: Held Loratadine (Loratadine) 10 Mg Tablet, 10 MG PO DAILY, (Reported) Entered as Reported by: JESÚS PHILLIPS on 03/07/15 162 Last Action: Continued Montelukast Sodium (Montelukast Sodium) 10 Mg Tablet, 10 MG PO HS, (Reported) Entered as Reported by: MELISSA MONTERO on 05/18/17 1103 Last Action: Continued Pantoprazole Sodium (Pantoprazole Sodium) 40 Mg Tablet.dr, 40 MG PO DAILY, (Reported) Entered as Reported by: JESÚS PHILLIPS on 03/07/15 1623 Last Action: Continued Potassium Chloride (K-Tab ER) 10 Meq Tablet.er, 20 MEQ PO BID, (Reported) Entered as Reported by: YOSSI NELSON on 05/28/19951 Last Action: Continued Prednisone (Prednisone) 10 Mg Tab, 10 MG PO DAILY, (Reported) Entered as Reported by: SHAMIR SALAZAR on 06/13/21 1034 Last Action: Held Warfarin Sodium (Jantoven) 4 Mg Tablet, 4 MG PO Q48H, (Reported) Entered as Reported by: YOSSI NELSON on 05/28/19 09 Last Action: Continued Warfarin Sodium (Jantoven) 5 Mg Tablet, 5 MG PO Q48H, (Reported) Entered as Reported by: SHAMIR SALAZAR on 07/20/19 160 Last Action: Continued Discontinued Medications Prednisone (Prednisone) 20 Mg Tab, 40 MG PO UD PRN for PM BEFORE &AM OF CATHERIZATION, (Reported) Discontinued Reason: No Longer Taking Entered as Reported by: SHAMIR SALAZAR on 07/20/19 160 Last Action: Discontinued Past Egsojwb-Oboqje-Bcbwit Hx Patient Social History Marrital Status: Drug of Choice: + IV COCAINE USE Smoking Status: Former Smoker Former Smoker, Quit: Nov 17, 2000 2nd Hand Smoke Exposure: No Recent Hopitalizations: No (05/21/19 knee sx) Have you traveled recently?: No Alcohol Use?: No Pt feels they are or have been: No Immunizations Up To Date Tetanus Booster (TDap): Unknown Pediatric: No Date of Pneumonia Vaccine: Sep 05, 2016 Date of Influenza Vaccine: Mar 11, 2012 Seasonal Allergies Seasonal Allergies: Yes Surgeries Yes (C/S X2, KNEE SCOPE, SHOULDER SCOPE, d&C, BILAT ULNAR NERVE, VENA CAVA FILTE) Abdominal, Adenoidectomy, Section, Gallbladder, Hysterectomy, Orthopedic, Tonsillectomy, Tubal Ligation, Vascular Surgery Respiratory Yes (O2 AT HS 2-3L/NC AND PRN--NOCTURNAL HYPOXIA; ) Currently Using CPAP: No Currently Using BIPAP: No Cardiovascular Yes (MULTIPLE DVT'S AND P.E.'S ) Chronic Edema/Swelling, Deep Vein Thrombosis, High Cholesterol, Hypertension, Peripheral Vascular Neurological Yes Neuropathy 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 System Hx 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 Disorders: Yes Sexually Transmitted Disease: No HIV/AIDS: No [employer]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, Menopausal 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 Yes Kidney Infection, Bladder Infection, Kidney Stones Gastrointestinal Yes (MULTIPLE HERNIA REPAIRS; MULTIPLE EGD'S /COLONOSCOPIES/POLYPECTOMIES) Abdominal Hernia, Gastroesophageal Reflux, Chronic Constipation, Chronic Diarrhea, Hepatitis, Polyps, Hiatal Hernia, Irritable Bowel Musculoskeletal Yes (MULTIPLE ORTHO SURGERIES) Arthritis Endocrine History of Endocrine Disorders: Yes ("PRE-DIABETIC" ) HEENT History of HEENT Disorders: Yes (NASAL POLYPS REMOVED) HEENT Disorders: Cataract Loss of Vision: Denies Hearing Impairment: Denies Cancer No Did You Recieve Any Treatments: No Psychosocial History of Psychiatric Problem: Yes Behavioral Health Disorders: Anxiety Integumentary History of Skin or Integumenta: Yes (CHRONIC VENOUS STASIS DERMATITIS AND ULCERS. CELLULTITIS OF LEGS;TATTOOS ) Blood Transfusions History of Blood Disorders: Yes (DVT'S/PE'S; PROBABLE PROTEIN C DEFICIENCY) Adverse Reaction to a Blood Tr: No (HAS HAD BLOOD WITH NO PROBLEMS) Family Medical History Significant Family History: Cancer, COPD, Vascular Disease Other Significan Family Hx: SOCIAL HISTORY: -ETOH--RARE USE NOW, HISTORY OF HEAVY USE/ABUSE -DRUGS-HX OF IV COCAINE USE -SMOKED 1 PPD, QUIT 2000 PAST SURGICAL HISTORY: -C-SECTIONS 1985 -SHOULDER SURGERY 2007 -LEFT KNEE SURGERY 2008 -D&C 2008 -HYSTERECTOMY/BILATERAL SALPINGO-OOPHORECTOMY 2008 -VENA CAVA FILTER 2009 -EGD 2010 -VEIN STRIPPING IN LEGS 2012 -BILATERAL ELBOW/ULNAR NERVE SURGERY 2012 -MULTIPLE HERNIA REPAIRS -MULTIPLE EGD'S AND COLONOSCOPIES AND POLYPECTOMIES -TONSILLECTOMY/ADENOIDECTOMY -CHOLECYSTECTOMY -NASAL POLYPS REMOVED -BILATERAL LEG RADIOABLATION 06/2018 ADDITIONAL PAST MEDICAL HISTORY: -MULTIPLE DVT'S AND P.E.'S -CHRONIC VENOUS STASIS ULCERATIONS -LEG CELLULITIS Family Hx: Alcoholism Alcoholism Arthritis Asthma 19 MOTHER Cancer G8 BROTHER G8 SISTER Cancer of colon Cancer of mouth Cardiovascular disease Cataract Cataracts Chest pain Colon cancer Completed stroke Diabetes mellitus Family history: Allergy Family history: Arthritis Family history: Asthma Family history: Cardiovascular disease Family history: Coronary thrombosis Family history: Diabetes mellitus G8 BROTHER G8 SISTER Family history: Gastrointestinal disease Family history: Hypertension Family history: Thyroid disorder Headache Hearing loss Heart disease 19 MOTHER History of - anemia History of - respiratory disease Hypercholesterolemia Hypercholesterolemia Hypertension 19 FATHER Infertile Malignant neoplasm of lung Myocardial infarction Myocardial infarction Psychotic disorder Respiratory disorder Stroke No Family History of: AIDS Abdominal aortic aneurysm Abdominal aortic aneurysm Frederick's disease Fernando's disease Alzheimer's disease Aphasia Aphasia Congenital disease Congenital heart disease Congenital heart disease Congestive heart failure Coronary thrombosis Cystic fibrosis Cystic fibrosis Deafness or hearing loss Dementia Dementia Drug abuse Dysphagia Dysphasia Family history: Alzheimer's disease Family history: Breast disease Family history: Glaucoma Family history: Osteoporosis Fibrocystic disease of breast Gastroenteritis Glaucoma Headache disorder Hereditary disease History of - disorder History of drug abuse Human immunodeficiency virus (HIV) seropositivity Infertility Kidney disease Kidney disease Neoplasm Not obtainable due to adoption Osteoporosis Parkinson's disease Parkinson's disease Prostate cancer Psychosocial problem Seizure disorder Seizure disorder Severe allergy Thyroid disease Tuberculosis Tuberculosis Visual disorder Visual impairment Review of Systems Constitutional: see HPI Physical Exam Vital Signs Vital Signs - First Documented 08/31/21 08:51 Temp 38.1 Pulse 142 Resp 24 B/P (MAP) 189/130 (149) Pulse Ox 94 O2 Delivery Nasal Cannula O2 Flow Rate 2.00 Capillary Refill : Less Than 3 Seconds Height, Weight, BMI Height: 5'5.00" Weight: 184lbs. 5.0oz. 83.999479dc; 38.08 BMI Method:Stated General Appearance: Mild Distress HEENT: Pharynx Normal Neck: Full Range of Motion Respiratory: Decreased Breath Sounds, Rales (in bases), Wheezing Cardiovascular: Regular Rate, Rhythm Gastrointestinal: Normal Bowel Sounds, Non Tender, Soft Rectal: Deferred Back: Normal Inspection Extremity: Swelling (ankles) Comments [facility], [place] NAME: SUJEY FELIZ Gerardo [facility] REC#: [id number] PT STATUS: REG ER : 1960 PHYSICIAN: WILLI AGUIAR MD ADMIT DATE: 08/31/21/ER Draft Date of Exam:08/31/21 CHEST 1 VIEW, AP/PA ONLY CLINICAL INDICATION: Patient complains of rapid heart rate and shortness of breath since 0700. EXAM: Portable chest x-ray upright view. COMPARISON: Chest x-ray dated 05/03/2021. Chest x-ray dated 03/04/2019 and 05/28/2019. CT scan of the abdomen and pelvis dated 12/05/2019. FINDINGS: Mild curvilinear opacities involving the right lung base which may be related to atelectasis. There is no definite lung infiltrate. There is stable appearance of the cardiac silhouette and lung base regions likely related to prominent pericardial fat which is best seen on CT scan of the abdomen dated 12/05/2019. Pulmonary vasculature and cardiac silhouette are within normal limits. There is no definite pleural effusion or pneumothorax. There are degenerative spurs involving the thoracic spine. IMPRESSION: 1: There is no definite lung infiltrate. There is mild right bibasilar atelectasis. 2: Stable appearance of the chest with a prominent pericardial fat-pad. Dictated on workstation # [id number] Dict: 08/31/21914 Trans: 08/31/21922 [facility] [id number] Interpreted by: WILY COUGHLIN MD Electronically signed by: Assessment/Plan Assessment and Plan 1. Severe dyspneaand this may be related to a combination of clinical pneumonia as well as COPD exacerbation -She is placed on cefepime as well as doxycycline 2. Tachycardia and I believe this is related to her exacerbation of #1 -Improved 3. Hypertension -We will continue her antihypertensive as deemed necessary 4. COPD -She will stay on her ipratropium and albuterol. -Steroids initiated in ED 5. 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 Severe dyspneaand this may be related to a combination of clinical pneumonia as well as COPD exacerbation 2. Tachycardia and I believe this is related to her exacerbation of #1 3. Hypertension 4. COPD 5. History of DVT and PE currently on anticoagulation with warfarin Admission Status: Inpatient Order (span 2 midnights) Reason for Inpatient Admission: She is admitted for further IV antibiotics as well as IV steroids. JAY WOLF MD Aug 31, 2021 16:04
[2021-08-31] MEDS: CEFEPIME 1,000 MG/NS 50 ML IVPB IV SCH ×4 (16:29→21:13)
[2021-08-31] MEDS ORDERED: ALPRAZolam 1 MG (XANAX) TAB PO PRN (17:00)
[2021-08-31] MEDS: warFARin 4 MG (COUMADIN) TAB PO SCH (17:35)
[2021-08-31] MEDS ORDERED: warFARin 4 MG (COUMADIN) TAB PO SCH (18:00)
[2021-08-31 19:17] VITALS: BP 129/81
[2021-08-31] MEDS: MONTELUKAST 10 MG (SINGULAIR) TAB PO SCH (21:13)
[2021-08-31] MEDS: ACETAMINOPHEN 500 MG TAB (TYLENOL) PO PRN (23:14)
[2021-08-31 23:48] VITALS: BP 147/63
[2021-09-01] MEDS: RT-ALBUTEROL/IPRATROPIUM 3 ML (DUONEB) VIAL IH SCH ×6 (01:35→21:46)
[2021-09-01 04:12] VITALS: BP 133/78
[2021-09-01] MEDS: CEFEPIME 1,000 MG/NS 50 ML IVPB IV SCH ×8 (04:28→21:02)
[2021-09-01 05:35] LABS: BASOPHILS % (AUTO) 0 % (0-10); EOSINOPHILS % (AUTO) 0 % (0-10); HEMATOCRIT 39 % (35-52); HEMOGLOBIN 12.2 g/dL (11.5-16.0); LYMPHOCYTES # (AUTO) 1.9 10^3/uL (1.0-4.0); LYMPHOCYTES % (AUTO) 17 % (12-44); MEAN CORPUSCULAR HEMOGLOBIN 27 pg (25-34); MEAN CORPUSCULAR HGB CONC 31 g/dL (32-36); MEAN CORPUSCULAR VOLUME 87 fL (80-99); MEAN PLATELET VOLUME 8.9 fL (9.0-12.2); MONOCYTES % (AUTO) 9 % (0-12); NEUTROPHILS # (AUTO) 8.3 10^3/uL (1.8-7.8); NEUTROPHILS % (AUTO) 74 % (42-75); PLATELET COUNT 254 10^3/uL (130-400); WHITE BLOOD COUNT 11.2 10^3/uL (4.3-11.0)
[2021-09-01 05:59] LABS: ALBUMIN 3.7 GM/DL (3.2-4.5)
[2021-09-01 06:00] LABS: CALCIUM 8.9 MG/DL (8.5-10.1)
[2021-09-01 06:03] LABS: BILIRUBIN,TOTAL 0.2 MG/DL (0.1-1.0)
[2021-09-01 06:05] LABS: CREATININE SERUM 0.67 MG/DL (0.60-1.30)
[2021-09-01] MEDS: predniSONE 10 MG TAB PO SCH (06:13)
[2021-09-01] MEDS: FUROSEMIDE 40 MG (LASIX) TAB PO SCH (06:13)
[2021-09-01] MEDS: KCL 10 MEQ TAB (MICRO K) PO SCH ×3 (06:13→17:11)
[2021-09-01] MEDS: CATHETER FLUSH 10 ML SYR IVP SCH ×3 (06:13→21:03)
[2021-09-01] MEDS: ONDANSETRON 4 MG/2 ML (SDV) Z0FRAN IVP PRN ×2 (06:34→17:33)
[2021-09-01 07:21] VITALS: BP 135/84
--- NOTE | 2021-09-01 07:36 | Progress Note ---
Subjective Date Seen by a Provider: Sep 01, 2021 Time Seen by a Provider: 06:35 Subjective/Events-last exam Karie reports she is breathing better compared to when she came in. The dyspnea has improved markedly since starting antibiotics and steroids. She still has cough and phlegm is yellow in color. She did have nausea this morning. Focused Exam Lactate Level 08/31/21 08:48: Lactic Acid Level 2.69*H 08/31/21 11:24: Lactic Acid Level 1.79 Time of Focused Exam: 09:30 Objective Exam Vital Signs Date Time Temp Pulse Resp B/P (MAP) Pulse Ox O2 Delivery O2 Flow Rate FiO2 09/01/21 07:21 36.2 86 18 135/84 (101) 98 Nasal Cannula 2.00 09/01/21 07:00 93 09/01/21 06:57 98 Nasal Cannula 2.00 09/01/21 04:12 36.3 88 18 133/78 (96) 95 Nasal Cannula 2.00 09/01/21 01:35 96 Nasal Cannula 2.00 09/01/21 01:00 100 08/31/21 23:48 36.3 100 18 147/63 (91) 93 Nasal Cannula 2.00 08/31/21 21:34 94 Nasal Cannula 2.00 08/31/21 20:19 Nasal Cannula 2.00 08/31/21 19:17 36.2 97 20 129/81 (97) 94 Nasal Cannula 2.00 08/31/21 19:00 103 08/31/21 18:13 96 Nasal Cannula 2.00 08/31/21 15:31 36.3 110 20 118/75 (89) 92 Nasal Cannula 2.00 08/31/21 14:32 94 Nasal Cannula 2.00 08/31/21 14:00 37.0 115 20 126/87 (100) 92 Nasal Cannula 2.00 08/31/21 13:34 106 08/31/21 12:45 37.0 115 20 126/76 (93) 92 Nasal Cannula 2.00 08/31/21 11:45 Nasal Cannula 2.00 08/31/21 11:27 117 22 131/88 92 Nasal Cannula 2.00 08/31/21 10:44 94 Nasal Cannula 2.00 08/31/21 08:51 38.1 142 24 189/130 (149) 94 Nasal Cannula 2.00 08/31/21 08:51 Nasal Cannula 2.00 I & O 09/01/21 07:00 Intake Total 1250 ml Output Total 1925 ml Balance -675 ml Capillary Refill : Less Than 3 Seconds General Appearance: No Apparent Distress (other than slight shortness of breath) Neck: Full Range of Motion Respiratory: No Accessory Muscle Use, No Respiratory Distress, Rhonci, Wheezing (expiratory scattered throughout) Gastrointestinal: soft Extremity: Normal Capillary Refill Neurologic/Psychiatric: Alert, Oriented x3 Skin: Normal Color Results Lab Laboratory Tests 08/31/21 08:48: White Blood Count 8.5, Red Blood Count 4.73, Hemoglobin 12.8, Hematocrit 41, Mean Corpuscular Volume 88, Mean Corpuscular Hemoglobin 27, Mean Corpuscular Hemoglobin Concent 31L, Red Cell Distribution Width 16.2H, Platelet Count 262, Mean Platelet Volume 8.7L, Immature Granulocyte % (Auto) 0, Neutrophils (%) (Auto) 50, Lymphocytes (%) (Auto) 37, Monocytes (%) (Auto) 8, Eosinophils (%) (Auto) 5, Basophils (%) (Auto) 0, Neutrophils # (Auto) 4.3, Lymphocytes # (Auto) 3.1, Monocytes # (Auto) 0.7, Eosinophils # (Auto) 0.4H, Basophils # (Auto) 0.0, Immature Granulocyte # (Auto) 0.0, Prothrombin Time 25.9H, INR Comment 2.3H, Activated Partial Thromboplast Time 34, Sodium Level 143, Potassium Level 3.7, Chloride Level 107, Carbon Dioxide Level 22, Anion Gap 14, Blood Urea Nitrogen 10, Creatinine 0.71, Estimat Glomerular Filtration Rate 95, BUN/Creatinine Ratio 14, Glucose Level 186H, Lactic Acid Level 2.69*H, Calcium Level 9.0, Corrected Calcium 9.2, Total Bilirubin 0.3, Aspartate Amino Transf (AST/SGOT) 16, Alanine Aminotransferase (ALT/SGPT) 23, Alkaline Phosphatase 77, Lactate Dehydrogenase 245H, Troponin I < 0.028, C-Reactive Protein High Sensitivity 0.12, B-Type Natriuretic Peptide < 10.0, Total Protein 7.1, Albumin 3.8, Procalcitonin 0.02, Influenza Type A (RT-PCR) Not Detected, Influenza Type B (RT-PCR) Not Detected, SARS-CoV-2 RNA (RT-PCR) Not Detected 08/31/21 08:55: Urine Color YELLOW, Urine Clarity CLEAR, Urine pH 6.5, Urine Specific [place] <=1.005, Urine Protein NEGATIVE, Urine Glucose (UA) NEGATIVE, Urine Ketones NEGATIVE, Urine Nitrite NEGATIVE, Urine Bilirubin NEGATIVE, Urine Urobilinogen 0.2, Urine Leukocyte Esterase NEGATIVE, Urine RBC (Auto) 1+H, Urine RBC RARE, Urine WBC NONE, Urine Squamous Epithelial Cells 0-2, Urine Crystals NONE, Urine Bacteria NEGATIVE, Urine Casts NONE, Urine Mucus NEGATIVE, Urine Culture Indicated NO 08/31/21 11:24: Lactic Acid Level 1.79 08/31/21 11:49: Glucometer 141H 08/31/21 15:39: Glucometer 209H 08/31/21 20:34: Glucometer 182H 09/01/21 05:31: White Blood Count 11.2H, Red Blood Count 4.49, Hemoglobin 12.2, Hematocrit 39, Mean Corpuscular Volume 87, Mean Corpuscular Hemoglobin 27, Mean Corpuscular Hemoglobin Concent 31L, Red Cell Distribution Width 16.2H, Platelet Count 254, Mean Platelet Volume 8.9L, Immature Granulocyte % (Auto) 0, Neutrophils (%) (Auto) 74, Lymphocytes (%) (Auto) 17, Monocytes (%) (Auto) 9, Eosinophils (%) (Auto) 0, Basophils (%) (Auto) 0, Neutrophils # (Auto) 8.3H, Lymphocytes # (Auto) 1.9, Monocytes # (Auto) 1.0, Eosinophils # (Auto) 0.0, Basophils # (Auto) 0.0, Immature Granulocyte # (Auto) 0.0, Sodium Level 140, Potassium Level 4.0, Chloride Level 104, Carbon Dioxide Level 23, Anion Gap 13, Blood Urea Nitrogen 15, Creatinine 0.67, Estimat Glomerular Filtration Rate 98, BUN/Creatinine Ratio 22, Glucose Level 115H, Calcium Level 8.9, Corrected Calcium 9.1, Total Bilirubin 0.2, Aspartate Amino Transf (AST/SGOT) 14, Alanine Aminotransferase (ALT/SGPT) 23, Alkaline Phosphatase 65, Total Protein 7.0, Albumin 3.7 Assessment/Plan Assessment/Plan Assess & Plan/Chief Complaint 1. Severe dyspneaand this may be related to a combination of clinical pneum onia as well as COPD exacerbation -She is placed on cefepime as well as doxycycline 09/01/2021 -today is day #2 of cefepime and doxycycline. -blood, sputum and urine culture pending 2. Tachycardia and I believe this is related to her exacerbation of #1 -Improved 09/01 -tachycardia resolved 3. Hypertension -We will continue her antihypertensive as deemed necessary 4. COPD -She will stay on her ipratropium and albuterol. -Steroids initiated in ED 09/01/2021 -she continues with steroid treatment, Solu-Medrol 80 mg twice daily 5. History of DVT and PE currently on anticoagulation with warfarin -She does alternate 4 mg warfarin with 5 mg warfarin every other day Clinical Quality Measures Admission Status Admission Dx 1. Severe dyspneaand this may be related to a combination of clinical pneumonia as well as COPD exacerbation 2. Tachycardia and I believe this is related to her exacerbation of #1 3. Hypertension 4. COPD 5. History of DVT and PE currently on anticoagulation with warfarin LEAH WOLF MD Sep 01, 2021 07:36
[2021-09-01] MEDS: methylPREDNISolone 40 MG/ML (Solu-MEDROL) VIAL IV SCH ×2 (08:17→21:02)
[2021-09-01] MEDS: LORATADINE (CLARITIN) 10 MG TAB PO SCH (08:17)
[2021-09-01] MEDS: PANTOPRAZOLE 40 MG (PROTONIX) TAB PO SCH (08:17)
[2021-09-01 11:25] VITALS: BP 137/80
[2021-09-01 15:28] VITALS: BP 112/77
[2021-09-01] MEDS: warFARin 5 MG (COUMADIN) TAB PO SCH (17:11)
[2021-09-01] MEDS ORDERED: warFARin 5 MG (COUMADIN) TAB PO SCH (18:00)
[2021-09-01 19:35] VITALS: BP 110/71
[2021-09-01] MEDS: MONTELUKAST 10 MG (SINGULAIR) TAB PO SCH (21:02)
[2021-09-02] VITALS (7 sets, daily range): BP systolic 109–139; BP diastolic 71–87
[2021-09-02] MEDS: RT-ALBUTEROL/IPRATROPIUM 3 ML (DUONEB) VIAL IH SCH ×6 (03:03→22:35)
[2021-09-02] MEDS: CEFEPIME 1,000 MG/NS 50 ML IVPB IV SCH ×8 (03:37→21:54)
[2021-09-02] MEDS: ONDANSETRON 4 MG/2 ML (SDV) Z0FRAN IVP PRN ×2 (03:42→16:16)
[2021-09-02 05:35] LABS: ALBUMIN 3.6 GM/DL (3.2-4.5)
[2021-09-02 05:36] LABS: POTASSIUM 4.2 MMOL/L (3.6-5.0)
[2021-09-02 05:37] LABS: BASOPHILS % (AUTO) 0 % (0-10); CALCIUM 8.8 MG/DL (8.5-10.1); EOSINOPHILS % (AUTO) 0 % (0-10); HEMATOCRIT 39 % (35-52); HEMOGLOBIN 11.9 g/dL (11.5-16.0); LYMPHOCYTES # (AUTO) 0.8 10^3/uL (1.0-4.0); LYMPHOCYTES % (AUTO) 7 % (12-44); MEAN CORPUSCULAR HEMOGLOBIN 27 pg (25-34); MEAN CORPUSCULAR HGB CONC 31 g/dL (32-36); MEAN CORPUSCULAR VOLUME 88 fL (80-99); MEAN PLATELET VOLUME 8.8 fL (9.0-12.2); MONOCYTES # (AUTO) 0.5 10^3/uL (0.0-1.0); MONOCYTES % (AUTO) 4 % (0-12); NEUTROPHILS # (AUTO) 10.5 10^3/uL (1.8-7.8); NEUTROPHILS % (AUTO) 89 % (42-75); PLATELET COUNT 267 10^3/uL (130-400); WHITE BLOOD COUNT 11.9 10^3/uL (4.3-11.0)
[2021-09-02 05:38] LABS: TOTAL PROTEIN 6.8 GM/DL (6.4-8.2)
[2021-09-02 05:40] LABS: BILIRUBIN,TOTAL 0.2 MG/DL (0.1-1.0)
[2021-09-02 05:42] LABS: CREATININE SERUM 0.7 MG/DL (0.60-1.30)
[2021-09-02 06:07] LABS: LYMPHOCYTES % (MANUAL) 8 %; MONOCYTES % (MANUAL) 4 %; NEUTROPHILS % (MANUAL) 88 %; POLYCHROMASIA SLIGHT
[2021-09-02] MEDS: CATHETER FLUSH 10 ML SYR IVP SCH ×3 (06:39→22:08)
[2021-09-02] MEDS: KCL 10 MEQ TAB (MICRO K) PO SCH ×3 (06:39→17:48)
[2021-09-02] MEDS: predniSONE 10 MG TAB PO SCH (06:39)
[2021-09-02] MEDS: FUROSEMIDE 40 MG (LASIX) TAB PO SCH (06:39)
[2021-09-02] MEDS: LORATADINE (CLARITIN) 10 MG TAB PO SCH (07:49)
[2021-09-02] MEDS: PANTOPRAZOLE 40 MG (PROTONIX) TAB PO SCH (07:49)
[2021-09-02] MEDS: methylPREDNISolone 40 MG/ML (Solu-MEDROL) VIAL IV SCH ×2 (07:49→20:25)
--- NOTE | 2021-09-02 11:32 | Progress Note - Hospitalist ---
Subjective HPI/CC On Admission Date Seen by Provider: Sep 02, 2021 Time Seen by Provider: 11:00 Subjective/Events-last exam Patient reports feeling less shortness of breath cough improving no sputum production reported. No chest pain no nausea tolerating solids today. Focused Exam Lactate Level 08/31/21 08:48: Lactic Acid Level 2.69*H 08/31/21 11:24: Lactic Acid Level 1.79 Time of Focused Exam: 09:30 Objective Exam Vital Signs Vital Signs Date Time Temp Pulse Resp B/P (MAP) Pulse Ox O2 Delivery O2 Flow Rate FiO2 09/02/21 10:54 95 Nasal Cannula 2.00 09/02/21 07:50 36.7 89 18 128/80 (96) Capillary Refill : Less Than 3 Seconds General Appearance: No Apparent Distress, Obese Respiratory: No Accessory Muscle Use, No Respiratory Distress, Other (Both inspiratory and expiratory wheezes noted no rales or rhonchi appreciated.) Cardiovascular: Regular Rate, Rhythm, No Edema, No Murmur Gastrointestinal: Normal Bowel Sounds, No Organomegaly, No Pulsatile Mass, Non Tender, Soft Results/Procedures Lab Laboratory Tests 09/02/21 05:00 Patient resulted labs reviewed. Assessment/Plan Assessment and Plan Assess & Plan/Chief Complaint 1. Acute COPD exacerbation likely viral in etiology we will continue oral anti biotics for now and continue IV Solu-Medrol And bronchodilator therapy. 2. 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 Patient reports no barriers to compliance with this. FELIBERTO BROWNE MD Sep 02, 2021 11:32
[2021-09-02] MEDS: inSUlin ASPART (NovoLOG) 1 UNIT/0.01 ML (CHARGE PER UNIT) SC SCH ×2 (15:51→20:20)
[2021-09-02] MEDS: ACETAMINOPHEN 500 MG TAB (TYLENOL) PO PRN (16:16)
[2021-09-02] MEDS: warFARin 4 MG (COUMADIN) TAB PO SCH ×2 (17:35→17:49)
[2021-09-02] MEDS: warFARin 5 MG (COUMADIN) TAB PO SCH (17:48)
[2021-09-02] MEDS: MONTELUKAST 10 MG (SINGULAIR) TAB PO SCH (20:25)
[2021-09-03] MEDS: RT-ALBUTEROL/IPRATROPIUM 3 ML (DUONEB) VIAL IH SCH ×6 (02:06→22:23)
[2021-09-03 03:37] VITALS: BP 125/79
[2021-09-03] MEDS: CEFEPIME 1,000 MG/NS 50 ML IVPB IV SCH ×4 (04:45→09:57)
[2021-09-03] MEDS: CATHETER FLUSH 10 ML SYR IVP SCH ×3 (05:20→20:52)
[2021-09-03] MEDS: inSUlin ASPART (NovoLOG) 1 UNIT/0.01 ML (CHARGE PER UNIT) SC SCH ×4 (05:41→20:23)
[2021-09-03] MEDS: FUROSEMIDE 40 MG (LASIX) TAB PO SCH (06:01)
[2021-09-03] MEDS: KCL 10 MEQ TAB (MICRO K) PO SCH ×3 (06:01→18:34)
[2021-09-03 06:05] LABS: BASOPHILS % (AUTO) 0 % (0-10); EOSINOPHILS % (AUTO) 0 % (0-10); HEMATOCRIT 39 % (35-52); HEMOGLOBIN 12.1 g/dL (11.5-16.0); LYMPHOCYTES # (AUTO) 0.9 10^3/uL (1.0-4.0); LYMPHOCYTES % (AUTO) 6 % (12-44); MEAN CORPUSCULAR HEMOGLOBIN 27 pg (25-34); MEAN CORPUSCULAR HGB CONC 31 g/dL (32-36); MEAN CORPUSCULAR VOLUME 87 fL (80-99); MEAN PLATELET VOLUME 8.7 fL (9.0-12.2); MONOCYTES # (AUTO) 0.7 10^3/uL (0.0-1.0); MONOCYTES % (AUTO) 5 % (0-12); NEUTROPHILS # (AUTO) 12.3 10^3/uL (1.8-7.8); NEUTROPHILS % (AUTO) 88 % (42-75); PLATELET COUNT 287 10^3/uL (130-400); WHITE BLOOD COUNT 13.9 10^3/uL (4.3-11.0)
[2021-09-03 06:17] LABS: ALBUMIN 3.7 GM/DL (3.2-4.5); POTASSIUM 4.1 MMOL/L (3.6-5.0)
[2021-09-03 06:18] LABS: INR 3.2 (0.8-1.4)
[2021-09-03 06:19] LABS: CALCIUM 8.9 MG/DL (8.5-10.1)
[2021-09-03 06:20] LABS: TOTAL PROTEIN 6.9 GM/DL (6.4-8.2)
[2021-09-03 06:22] LABS: BILIRUBIN,TOTAL 0.2 MG/DL (0.1-1.0)
[2021-09-03 06:23] LABS: CREATININE SERUM 0.7 MG/DL (0.60-1.30)
[2021-09-03 08:15] VITALS: BP 126/72
[2021-09-03] MEDS: methylPREDNISolone 40 MG/ML (Solu-MEDROL) VIAL IV SCH (08:47)
[2021-09-03] MEDS: LORATADINE (CLARITIN) 10 MG TAB PO SCH (08:47)
[2021-09-03] MEDS: PANTOPRAZOLE 40 MG (PROTONIX) TAB PO SCH (08:47)
[2021-09-03] MEDS: warFARin 4 MG (COUMADIN) TAB PO SCH ×2 (10:12→10:34)
--- NOTE | 2021-09-03 10:26 | Progress Note - Hospitalist ---
Subjective HPI/CC On Admission Date Seen by Provider: Sep 03, 2021 Time Seen by Provider: 10:23 Subjective/Events-last exam Patient reports some intermittent nausea without vomiting but is breathing better with decrease in nonproductive cough. She has had no night sweats chills or fever. Did have an episode of shortness of breath resolved after breathing treatment and after coughing episode last night overall feeling much better this morning. No chest pain no current shortness of breath. Patient speaking on the phone to her granddaughter in full sentences this morning without coughing upon my arrival. Focused Exam Lactate Level 08/31/21 11:24: Lactic Acid Level 1.79 Time of Focused Exam: 09:30 Objective Exam Vital Signs Vital Signs Date Time Temp Pulse Resp B/P (MAP) Pulse Ox O2 Delivery O2 Flow Rate FiO2 09/03/21 08:15 36.8 90 18 126/72 (90) Nasal Cannula 2.00 09/03/21 08:00 94 Capillary Refill : Less Than 3 Seconds General Appearance: No Apparent Distress Respiratory: No Accessory Muscle Use, No Respiratory Distress, Other (Minimal intermittent wheezing right base elsewhere chest is clear significantly improved from yesterday) Cardiovascular: Regular Rate, Rhythm, No Edema, No Gallop, No JVD, No Murmur Results/Procedures Lab Laboratory Tests 09/03/21 05:53 Patient resulted labs reviewed. Assessment/Plan Assessment and Plan Assess & Plan/Chief Complaint 1. Acute COPD exacerbation likely viral in etiology Significant reduction in wheezing will decrease Solu-Medrol to 40 IV tonight and then initiate prednisone 60 mg in the morning with discontinuance of Solu-Medrol. Nausea likely due to doxycycline will discontinue. Patient is having some reported constipation we will add MiraLAX today. 2. 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 Patient reports no barriers to compliance with this. FELIBERTO BROWNE MD Sep 03, 2021 10:26
[2021-09-03] MEDS ORDERED: polyethylene glycoL POWDER 17 GM (MIRALAX) PACK PO NR (10:30)
[2021-09-03 11:52] VITALS: BP 119/79
[2021-09-03 15:44] VITALS: BP 129/81
[2021-09-03] MEDS ORDERED: methylPREDNISolone 40 MG/ML (Solu-MEDROL) VIAL IV NR (19:00)
[2021-09-03 19:38] VITALS: BP 122/78
[2021-09-03] MEDS: polyethylene glycoL POWDER 17 GM (MIRALAX) PACK PO SCH (20:51)
[2021-09-03] MEDS: MONTELUKAST 10 MG (SINGULAIR) TAB PO SCH (20:51)
[2021-09-04 00:49] VITALS: BP 125/82
[2021-09-04] MEDS: RT-ALBUTEROL/IPRATROPIUM 3 ML (DUONEB) VIAL INH SCH ×8 (04:06→22:44)
[2021-09-04 04:57] VITALS: BP 136/95
[2021-09-04] MEDS: CATHETER FLUSH 10 ML SYR IVP SCH ×3 (05:33→20:22)
[2021-09-04] MEDS: inSUlin ASPART (NovoLOG) 1 UNIT/0.01 ML (CHARGE PER UNIT) SC SCH ×4 (05:49→20:26)
[2021-09-04] MEDS: FUROSEMIDE 40 MG (LASIX) TAB PO SCH (06:01)
[2021-09-04] MEDS: KCL 10 MEQ TAB (MICRO K) PO SCH ×3 (06:01→17:01)
[2021-09-04] MEDS: predniSONE 20 MG TAB PO SCH (06:01)
[2021-09-04 06:09] LABS: BASOPHILS % (AUTO) 0 % (0-10); EOSINOPHILS % (AUTO) 0 % (0-10); HEMATOCRIT 42 % (35-52); HEMOGLOBIN 13.1 g/dL (11.5-16.0); LYMPHOCYTES # (AUTO) 2.1 10^3/uL (1.0-4.0); LYMPHOCYTES % (AUTO) 14 % (12-44); MEAN CORPUSCULAR HEMOGLOBIN 27 pg (25-34); MEAN CORPUSCULAR HGB CONC 31 g/dL (32-36); MEAN CORPUSCULAR VOLUME 87 fL (80-99); MEAN PLATELET VOLUME 8.7 fL (9.0-12.2); MONOCYTES % (AUTO) 7 % (0-12); NEUTROPHILS # (AUTO) 11.4 10^3/uL (1.8-7.8); NEUTROPHILS % (AUTO) 78 % (42-75); PLATELET COUNT 308 10^3/uL (130-400); WHITE BLOOD COUNT 14.5 10^3/uL (4.3-11.0)
[2021-09-04 06:19] LABS: INR 2.8 (0.8-1.4)
[2021-09-04 06:37] LABS: ALBUMIN 3.9 GM/DL (3.2-4.5); BILIRUBIN,TOTAL 0.4 MG/DL (0.1-1.0); CALCIUM 9.2 MG/DL (8.5-10.1); CREATININE SERUM 0.7 MG/DL (0.60-1.30); POTASSIUM 4.5 MMOL/L (3.6-5.0); TOTAL PROTEIN 7.4 GM/DL (6.4-8.2)
[2021-09-04] MEDS ORDERED: GLYCERIN ADULT SUPPOSITORY PR ONE (07:15)
--- NOTE | 2021-09-04 07:17 | Progress Note ---
Subjective Date Seen by a Provider: Sep 04, 2021 Time Seen by a Provider: 06:45 Subjective/Events-last exam Complaining this am of constipation. Still having shortness of breath but improves with albuterol. Focused Exam Time of Focused Exam: 09:30 Objective Exam Vital Signs Date Time Temp Pulse Resp B/P (MAP) Pulse Ox O2 Delivery O2 Flow Rate FiO2 09/04/21 04:57 36.3 86 16 136/95 (109) 94 Nasal Cannula 2.00 09/04/21 01:00 80 09/04/21 00:49 36.2 80 18 125/82 (96) 93 Nasal Cannula 2.00 09/03/21 22:23 96 Nasal Cannula 2.00 09/03/21 20:00 Nasal Cannula 2.00 09/03/21 19:38 36.1 89 18 122/78 (93) 93 Nasal Cannula 2.00 09/03/21 19:00 88 09/03/21 18:59 36.0 102 94 09/03/21 18:58 96 Nasal Cannula 2.00 09/03/21 15:44 36.8 90 18 129/81 (97) 93 Nasal Cannula 2.00 09/03/21 13:00 101 09/03/21 11:52 35.9 107 18 119/79 (92) Nasal Cannula 2.00 09/03/21 11:03 95 Nasal Cannula 2.00 09/03/21 08:15 36.8 90 18 126/72 (90) Nasal Cannula 2.00 09/03/21 08:00 94 Nasal Cannula 2.00 I & O 09/04/21 07:00 Intake Total 2080 ml Output Total 2125 ml Balance -45 ml Capillary Refill : Less Than 3 Seconds General Appearance: No Apparent Distress (but has moments of sob) Neck: Supple Respiratory: Lungs Clear (this am) Cardiovascular: Regular Rate, Rhythm Gastrointestinal: distended (slight), other (bowel sounds quiet this am) Neurologic/Psychiatric: Alert, Oriented x3 Results Lab Laboratory Tests 09/03/21 11:23: Glucometer 117H 09/03/21 15:18: Glucometer 247H 09/03/21 20:05: Glucometer 168H 09/04/21 05:45: Glucometer 132H 09/04/21 05:46: White Blood Count 14.5H, Red Blood Count 4.84, Hemoglobin 13.1, Hematocrit 42, Mean Corpuscular Volume 87, Mean Corpuscular Hemoglobin 27, Mean Corpuscular Hemoglobin Concent 31L, Red Cell Distribution Width 16.4H, Platelet Count 308, Mean Platelet Volume 8.7L, Immature Granulocyte % (Auto) 1, Neutrophils (%) (Auto) 78H, Lymphocytes (%) (Auto) 14, Monocytes (%) (Auto) 7, Eosinophils (%) (Auto) 0, Basophils (%) (Auto) 0, Neutrophils # (Auto) 11.4H, Lymphocytes # (Auto) 2.1, Monocytes # (Auto) 1.0, Eosinophils # (Auto) 0.0, Basophils # (Auto) 0.0, Immature Granulocyte # (Auto) 0.1, Prothrombin Time 30.0H, INR Comment 2.8H , Sodium Level 142, Potassium Level 4.5, Chloride Level 100, Carbon Dioxide Level 24, Anion Gap 18H, Blood Urea Nitrogen 19H, Creatinine 0.70, Estimat Glomerular Filtration Rate 97, BUN/Creatinine Ratio 27, Glucose Level 137H, Calcium Level 9.2, Corrected Calcium 9.3, Total Bilirubin 0.4, Aspartate Amino Transf (AST/SGOT) 12, Alanine Aminotransferase (ALT/SGPT) 22, Alkaline Phosphatase 77, Total Protein 7.4, Albumin 3.9 Microbiology 08/31/21 Blood Culture - Preliminary, Resulted No growth 08/31/21 Urine Culture - Final, Complete 3 or more isolates Assessment/Plan Assessment/Plan Assess & Plan/Chief Complaint 1. Severe dyspnea now likely viral bronchitis along with COPD exacerbation -She is placed on cefepime as well as doxycycline 09/01/2021 -today is day #2 of cefepime and doxycycline. -blood, sputum and urine culture pending 09/04 -cultures negative -cefepime and doxycycline dc'ed over the weekend -begin prednisone this am, if tolerates may be dc'ed in the am of 09/05 -back to q4h with albuterol for 24 hrs. Hopefully will be able to space back out treatments o/p 2. Tachycardia and I believe this is related to her exacerbation of #1 -Improved 09/01 -tachycardia resolved 3. Hypertension -We will continue her antihypertensive as deemed necessary 4. 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 Constipation -likely due to inactivity and pain med usage -will give glycerin supp this am -Fiber recommended o/p Clinical Quality Measures Admission Status Admission Dx 1. Severe dyspneaand this may be related to a combination of clinical pneumonia as well as COPD exacerbation 2. Tachycardia and I believe this is related to her exacerbation of #1 3. Hypertension 4. COPD 5. 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
[2021-09-04 07:30] VITALS: BP 121/82
[2021-09-04] MEDS: LORATADINE (CLARITIN) 10 MG TAB PO SCH (08:21)
[2021-09-04] MEDS: PANTOPRAZOLE 40 MG (PROTONIX) TAB PO SCH (08:22)
[2021-09-04] MEDS: ONDANSETRON 4 MG/2 ML (SDV) Z0FRAN IVP PRN ×2 (08:30→20:20)
--- NOTE | 2021-09-04 11:13 | Consultation-Cardiology ---
HPI-Cardiology Cardiology Consultation: Date of Consultation 09/04/21 Date of Admission Attending Physician Aristeo Mota MD Admitting Physician Jay Rogers MD Consulting Physician SUSHANT RENTERIA Review of Systems-Cardiology All Other Systems Reviewed Negative Unless Noted: Yes SVE-[id number] Hx Patient Social History Marrital Status: Smoking Status: Former Smoker Former smoker/When Quit: May 13, 2002 2nd Hand Smoke Exposure: No Have you traveled recently?: No Alcohol Use?: No Pt feels they are or have been: No Immunizations Up To Date Tetanus Booster (TDap): Unknown Date of Pneumonia Vaccine: Sep 05, 2016 Date of Influenza Vaccine: Mar 11, 2012 Past Medical History PMH As described under Assessment. Family Medical History Family History: Alcoholism Alcoholism Arthritis Asthma 19 MOTHER Cancer G8 BROTHER G8 SISTER Cancer of colon Cancer of mouth Cardiovascular disease Cataract Cataracts Chest pain Colon cancer Completed stroke Diabetes mellitus Family history: Allergy Family history: Arthritis Family history: Asthma Family history: Cardiovascular disease Family history: Coronary thrombosis Family history: Diabetes mellitus G8 BROTHER G8 SISTER Family history: Gastrointestinal disease Family history: Hypertension Family history: Thyroid disorder Headache Hearing loss Heart disease 19 MOTHER History of - anemia History of - respiratory disease Hypercholesterolemia Hypercholesterolemia Hypertension 19 FATHER Infertile Malignant neoplasm of lung Myocardial infarction Myocardial infarction Psychotic disorder Respiratory disorder Stroke No Family History of: AIDS Abdominal aortic aneurysm Abdominal aortic aneurysm [place]'s disease Copeland's disease Alzheimer's disease Aphasia Aphasia Congenital disease Congenital heart disease Congenital heart disease Congestive heart failure Coronary thrombosis Cystic fibrosis Cystic fibrosis Deafness or hearing loss Dementia Dementia Drug abuse Dysphagia Dysphasia Family history: Alzheimer's disease Family history: Breast disease Family history: Glaucoma Family history: Osteoporosis Fibrocystic disease of breast Gastroenteritis Glaucoma Headache disorder Hereditary disease History of - disorder History of drug abuse Human immunodeficiency virus (HIV) seropositivity Infertility Kidney disease Kidney disease Neoplasm Not obtainable due to adoption Osteoporosis Parkinson's disease Parkinson's disease Prostate cancer Psychosocial problem Seizure disorder Seizure disorder Severe allergy Thyroid disease Tuberculosis Tuberculosis Visual disorder Visual impairment Allergies and Home Medications Allergies Coded Allergies: aspirin (Verified Allergy, Severe, ANAPHYLAXIS, 03/03/19) ibuprofen (Verified Allergy, Severe, ANAPHYLAXIS, 03/03/19) ketorolac (Verified Allergy, Severe, ANAPHYLAXIS, 03/03/19) tetanus and diphtheria toxoids (Unverified Allergy, Severe, ANAPHYLAXIS, 03/03/19) aloe (Verified Allergy, Mild, RASH, 03/03/19) latex (Verified Allergy, Mild, RASH, 03/03/19) OCCASIONALLY IS IRRITATING SKIN scopolamine (Verified Allergy, Mild, 03/03/19) iodine (Verified Adverse Reaction, Unknown, 03/03/19) Patient states she got dizzy, diaphoretic and saw stars. Uncoded Allergies: ALOE VERA (Allergy, Unknown, 12/23/05) SILK SUTURES (Adverse Reaction, Unknown, BODY REJECTS SUTURES, 10/07/13) Patient Home Medication List Albuterol Sulfate (Proair Hfa) 8.5 Gm Hfa.aer.ad, 2 PUFF IH Q4H PRN for SHORTNESS OF BREATH, (Reported) Entered as Reported by: YOSSI NELSON on 08/10/15 1057 Last Action: Held Albuterol Sulfate (Albuterol Sulfate) 2.5 Mg/3 Ml Vial.neb, 2.5 MG NEB TID, (Reported) Entered as Reported by: YOSSI NELSON on 05/28/19 0952 Last Action: Held Alprazolam (Alprazolam) 1 Mg Tablet, 1 MG PO BID PRN for ANXIETY, (Reported) Entered as Reported by: JESÚS PHILLIPS on 03/07/15 1623 Last Action: Continued Ascorbic Acid (Vitamin C) 1,000 Mg Tablet, 1,000 MG PO DAILY, (Reported) Entered as Reported by: SHAMIR SALAZAR on 06/13/21 1034 Last Action: Held Calcium Carbonate/Vitamin D3 (Calcium 600 + Vit D 200 Tablet) 1 Each Tablet, 1 EACH PO BID, (Reported) Entered as Reported by: SHAMIR SALAZAR on 06/13/21 1034 Last Action: Held Cholecalciferol (Vitamin D3) (Vitamin D3) 25 Mcg Capsule, 25 MCG PO DAILY, (Reported) Entered as Reported by: SHAMIR SALAZAR on 06/13/21 1034 Last Action: Held Furosemide (Furosemide) 40 Mg Tablet, 40 MG PO DAILY, (Reported) Entered as Reported by: YOSSI NELSON on 03/03/19 1340 Last Action: Held Hydrocodone/Acetaminophen (Hydrocodone-Acetamin 10-325 mg) 1 Each Tablet, 1 EACH PO Q6H PRN for PAIN-MODERATE (5-7), (Reported) Entered as Reported by: SHAMIR SALAZAR on 06/13/21 1034 Last Action: Continued Hyoscyamine Sulfate (Hyoscyamine Sulfate) 0.125 Mg Tab.subl, 0.125 MG SL Q4H PRN for GI SPASMS, (Reported) Entered as Reported by: SHAMIR SALAZAR on 06/13/21 103 Last Action: Held Ipratropium [place] (Ipratropium [place]) 0.2 Mg/1 Ml Solution, 1 VIAL NEB TID, (Reported) Entered as Reported by: JESÚS PHILLIPS on 03/07/15 1640 Last Action: Held Loratadine (Loratadine) 10 Mg Tablet, 10 MG PO DAILY, (Reported) Entered as Reported by: JESÚS PHILLIPS on 03/07/151622 Last Action: Continued Montelukast Sodium (Montelukast Sodium) 10 Mg Tablet, 10 MG PO HS, (Reported) Entered as Reported by: MELISSA MONTERO on 05/18/17 1103 Last Action: Continued Pantoprazole Sodium (Pantoprazole Sodium) 40 Mg Tablet.dr, 40 MG PO DAILY, (Reported) Entered as Reported by: JESÚS PHILLIPS on 03/07/151622 Last Action: Continued Potassium Chloride (K-Tab ER) 10 Meq Tablet.er, 20 MEQ PO BID, (Reported) Entered as Reported by: YOSSI NELSON on 05/28/19951 Last Action: Continued Prednisone (Prednisone) 10 Mg Tab, 10 MG PO DAILY, (Reported) Entered as Reported by: SHAMIR SALAZAR on 06/13/211033 Last Action: Held Warfarin Sodium (Jantoven) 4 Mg Tablet, 4 MG PO Q48H, (Reported) Entered as Reported by: YOSSI NELSON on 05/28/19951 Last Action: Continued Warfarin Sodium (Jantoven) 5 Mg Tablet, 5 MG PO Q48H, (Reported) Entered as Reported by: SHAMIR SALAZAR on 07/20/19 160 Last Action: Continued Discontinued Medications Prednisone (Prednisone) 20 Mg Tab, 40 MG PO UD PRN for PM BEFORE &AM OF CATHERIZATION, (Reported) Discontinued Reason: No Longer Taking Entered as Reported by: SHAMIR SALAZAR on 07/20/19 160 Last Action: Discontinued Physical Exam-Cardiology Physical Exam Vital Signs/I&O 409/05/21 09/05/21 09/05/21 22:45 00:21 01:37 02:48 Temp 36.0 Pulse 112 92 Resp 18 B/P (MAP) 131/76 (94) Pulse Ox 95 94 95 O2 Delivery Nasal Cannula Nasal Cannula Nasal Cannula O2 Flow Rate 2.00 2.00 2.00 09/05/21 09/05/21 09/05/21 09/05/21 04:29 07:22 07:47 08:00 Temp 36.3 36.7 Pulse 107 102 Resp 18 18 B/P (MAP) 104/64 (77) 121/74 (90) Pulse Ox 94 93 93 O2 Delivery Nasal Cannula Nasal Cannula Nasal Cannula Nasal Cannula O2 Flow Rate 2.00 2.00 2.00 2.00 09/05/21 00:00 Intake Total 566 ml Output Total 1650 ml Balance -1084 ml Capillary Refill : Less Than 3 Seconds Skin: normal color, warm/dry Data Review Labs Laboratory Tests 09/04/21 10:38: Glucometer 148H 09/04/21 15:32: Glucometer 211H 09/04/21 20:18: Glucometer 143H 09/05/21 05:25: Glucometer 132H 09/05/21 05:46: White Blood Count 9.9, Red Blood Count 4.77, Hemoglobin 12.9, Hematocrit 42, Mean Corpuscular Volume 87, Mean Corpuscular Hemoglobin 27, Mean Corpuscular Hemoglobin Concent 31L, Red Cell Distribution Width 16.6H, Platelet Count 291, Mean Platelet Volume 8.6L, Immature Granulocyte % (Auto) 1, Neutrophils (%) (Auto) 60, Lymphocytes (%) (Auto) 30, Monocytes (%) (Auto) 9, Eosinophils (%) (Auto) 1, Basophils (%) (Auto) 0, Neutrophils # (Auto) 6.0, Lymphocytes # (Auto) 3.0, Monocytes # (Auto) 0.9, Eosinophils # (Auto) 0.1, Basophils # (Auto) 0.0, Immature Granulocyte # (Auto) 0.1, Sodium Level 142, Potassium Level 3.6, Chloride Level 100, Carbon Dioxide Level 26, Anion Gap 16H, Blood Urea Nitrogen 19H, Creatinine 0.74, Estimat Glomerular Filtration Rate 91, BUN/Creatinine Ratio 26, Glucose Level 120H, Calcium Level 8.4L, Corrected Calcium 8.7, Total Bilirubin 0.5, Aspartate Amino Transf (AST/SGOT) 12, Alanine Aminotransferase (ALT/SGPT) 23, Alkaline Phosphatase 68, Total Protein 6.8, Albumin 3.6 Microbiology 08/31/21 Blood Culture - Preliminary, Resulted No growth 08/31/21 Urine Culture - Final, Complete 3 or more isolates A/P-Cardiology Assessment/Admission Diagnosis Palpitations of undetermined etiology - H/O palpitations, w/u as below - Ambulatory card monitoring 07/05/16 to 07/19/16 showed no significant arrhythmia and an average heart rate of 106 bpm - 24 HR Holter of Apr 19, 2020 showed predominately SR with sinus arrhythmia; av HR 91 bpm; occ PVC, PAC; occ brief SVT up to 4 beats in length up to 154 bpm; no VT or signif bradycardia Exertional dyspnea - Cardiac cath of 06-21-21 showed: No angiographically significant coronary artery disease. Normal global left ventricular systolic function with an ejection fraction approximately 60%. Left ventricular end-diastolic pressure is 18 mmHg. Orthostatic hypotension - likely d/t medication - resolved following reduction Nonspecific chest discomfort - MPI of Feb 2019 did not show any significant ischemia or infarction and LVEF was 60% - Echo of August 25, [address] Cortez: LVEF 55-65%, grade 1 diastolic dysfunction. Mild TR. PASP approx 20 mmHg COPD - previously followed by Pulmonology Obesity - with BMI approx 31 LETICIA/nocturnal hypoxia - treated with supple nocturnal oxygen at night Micronodules of RML and LLL - on CT chest of 07/23/16, followed by Dr Rogers/Dr. Jackson Hepatic steatosis - on CT chest of 07/23/16 Chronic leg swelling and stasis dermatitis - due to venous insufficiency. 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
[2021-09-04 12:00] VITALS: BP 114/76
--- NOTE | 2021-09-04 12:04 | Consultation-Cardiology ---
HPI-Cardiology Cardiology Consultation Date of Consultation 09/04/21 Date of Admission 08/31/21 Time Seen by Provider: 06:45 Attending Physician/PCP: LEAH WOLF MD HPI Consult requested for palpitations. Patient is a 61 year old white female with history of COPD, sleep apnea, nocturnal hypoxemia, obesity, carotid disease, and history of tobaccoism who presented to the ED via EMS with complaints of severe dyspnea. She reports waking up around 0400 to take her morning meds and drink some coffee and developed significant shortness of breath and anxiety which cau sed her to call for help. She reports some associated productive cough, chills, palpitations and lightheadedness at that time. Now she is reporting that she is having constipation, lightheadedness, exertional shortness of breath, and palpitations. Denies chest pain, near syncope, syncope, or worsening lower extremity swelling. States the palpitations have occurred three or four times thus far during this hospitalization and don't seem to be related to any activity in particular. She reports some lightheadedness associated with the palpitations. Denies fevers, chills, dysuria, headache, vomiting, and anorexia. Home Medications & Allergies Allergies: Coded Allergies: aspirin (Verified Allergy, Severe, ANAPHYLAXIS, 03/03/19) ibuprofen (Verified Allergy, Severe, ANAPHYLAXIS, 03/03/19) ketorolac (Verified Allergy, Severe, ANAPHYLAXIS, 03/03/19) tetanus and diphtheria toxoids (Unverified Allergy, Severe, ANAPHYLAXIS, 03/03/19) aloe (Verified Allergy, Mild, RASH, 03/03/19) latex (Verified Allergy, Mild, RASH, 03/03/19) OCCASIONALLY IS IRRITATING SKIN scopolamine (Verified Allergy, Mild, 03/03/19) iodine (Verified Adverse Reaction, Unknown, 03/03/19) Patient states she got dizzy, diaphoretic and saw stars. Uncoded Allergies: ALOE VERA (Allergy, Unknown, 12/23/05) SILK SUTURES (Adverse Reaction, Unknown, BODY REJECTS SUTURES, 10/07/13) Home Medication List Reviewed: Yes ZVB-Eqwist-Aanhmf Hx Patient Social History Marital Status: Drug of Choice: + IV COCAINE USE Smoking Status: Former Smoker Former smoker/When Quit: May 13, 2002 Type Used: Cigarettes 2nd Hand Smoke Exposure: No Recent Hopitalizations: No (05/21/19 knee sx) Have you traveled recently?: No Alcohol Use?: No (history of heavy ETOH use ) Immunizations Up To Date Tetanus Booster (TDap): Unknown Date of Pneumonia Vaccine: Sep 05, 2016 Date of Influenza Vaccine: Mar 11, 2012 Past Medical History Palpitations Exertional dyspnea Orthostatic hypotension COPD Obesity LETICIA/Nocturnal hypoxemia Hepatic steatosis Chronic lower leg swelling bilaterally and stasis dermatitis H/o protein c deficiency H/o tobaccoism Carotid arterial disease DVT and PE PSH C section x 2 Shoulder surgery Left knee surgery D and C Total hysterectomy Vena cava filter T and A Cholecystectomy Family Medical History Significant Family History: Cancer, COPD, Vascular Disease Family History: Alcoholism Alcoholism Arthritis Asthma 19 MOTHER Cancer G8 BROTHER G8 SISTER Cancer of colon Cancer of mouth Cardiovascular disease Cataract Cataracts Chest pain Colon cancer Completed stroke Diabetes mellitus Family history: Allergy Family history: Arthritis Family history: Asthma Family history: Cardiovascular disease Family history: Coronary thrombosis Family history: Diabetes mellitus G8 BROTHER G8 SISTER Family history: Gastrointestinal disease Family history: Hypertension Family history: Thyroid disorder Headache Hearing loss Heart disease 19 MOTHER History of - anemia History of - respiratory disease Hypercholesterolemia Hypercholesterolemia Hypertension 19 FATHER Infertile Malignant neoplasm of lung Myocardial infarction Myocardial infarction Psychotic disorder Respiratory disorder Stroke No Family History of: AIDS Abdominal aortic aneurysm Abdominal aortic aneurysm [place]'s disease [place]'s disease Alzheimer's disease Aphasia Aphasia Congenital disease Congenital heart disease Congenital heart disease Congestive heart failure Coronary thrombosis Cystic fibrosis Cystic fibrosis Deafness or hearing loss Dementia Dementia Drug abuse Dysphagia Dysphasia Family history: Alzheimer's disease Family history: Breast disease Family history: Glaucoma Family history: Osteoporosis Fibrocystic disease of breast Gastroenteritis Glaucoma Headache disorder Hereditary disease History of - disorder History of drug abuse Human immunodeficiency virus (HIV) seropositivity Infertility Kidney disease Kidney disease Neoplasm Not obtainable due to adoption Osteoporosis Parkinson's disease Parkinson's disease Prostate cancer Psychosocial problem Seizure disorder Seizure disorder Severe allergy Thyroid disease Tuberculosis Tuberculosis Visual disorder Visual impairment Review of Systems-General Review of Systems Constitutional: No chills, No diaphoresis; dizziness; No fever; malaise EENTM: no symptoms reported; No blurred vision Respiratory: cough, dyspnea on exertion, short of breath Cardiovascular: see HPI; No chest pain; palpitations; No syncope Gastrointestinal: No abdominal pain; constipation; No diarrhea, No heartburn, No nausea, No vomiting 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: no symptoms reported; No decreased output, No dysuria Musculoskeletal: no symptoms reported; No back pain, No joint pain Skin: no symptoms reported; No change in hair/nails, No rash Psychiatric/Neurological: No Symptoms Reported; Denies Anxiety, Denies Depressed All Other Systems Reviewed Negative Unless Noted: Yes Reviewed Test Results Reviewed Test Results Lab Laboratory Tests 09/04/21 05:46 Physical Exam Physical Exam Vital Signs Vital Signs - First Documented 08/31/21 08:51 Temp 38.1 Pulse 142 Resp 24 B/P (MAP) 189/130 (149) Pulse Ox 94 O2 Delivery Nasal Cannula O2 Flow Rate 2.00 Capillary Refill : Less Than 3 Seconds Height, Weight, BMI Height: 5'5.00" Weight: 184lbs. 5.0oz. 83.981103ov; 38.08 BMI Method:Stated General Appearance: No Apparent Distress, Chronically ill, Obese Eyes: Bilateral Eye Normal Inspection, Bilateral Eye PERRL HEENT: Pharynx Normal, Moist Mucous Membranes Neck: Full Range of Motion, Normal Inspection Respiratory: Chest Non Tender, Lungs Clear, No Accessory Muscle Use, No Respiratory Distress; No Crackles; Rhonci (bibasilar); No Stridor, No Wheezing Cardiovascular: Regular Rate, Rhythm, Normal Peripheral Pulses Gastrointestinal: Normal Bowel Sounds, Non Tender, Soft Rectal: Deferred Back: Normal Inspection, No CVA Tenderness, No Vertebral Tenderness Extremity: Normal Capillary Refill, Non Tender, No Calf Tenderness, Swelling (1+ pitting edema BLE) Neurologic/Psychiatric: Alert, Oriented x3, Normal Mood/Affect Skin: Warm/Dry, Other (BLE discoloration to lower extremites chronic, brown/dark red in appearance) Lymphatic: No Adenopathy (head and neck) A/P-Cardiology Admission Diagnosis Palpitations Sinus tachycardia COPD acute exacerbation Assessment/Plan Palpitations of undetermined etiology - continue telemetry; no significant arrhythmia seen so far - H/O palpitations, w/u as below - Ambulatory card monitoring 07/05/16 to 07/19/16 showed no significant arrhythmia and an average heart rate of 106 bpm - 24 HR Holter of Apr 19, 2020 showed predominately SR with sinus arrhythmia; av HR 91 bpm; occ PVC, PAC; occ brief SVT up to 4 beats in length up to 154 bpm; no VT or signif bradycardia Sinus Tachycardia - improved, continue telemetry COPD exacerbation -managed per primary physician Exertional dyspnea - Cardiac cath of 06-21-21 showed: No angiographically significant coronary artery disease. Normal global left ventricular systolic function with an ejection fraction approximately 60%. Left ventricular end-diastolic pressure is 18 mmHg. Orthostatic hypotension - likely d/t medication - resolved following reduction Nonspecific chest discomfort - MPI of Feb 2019 did not show any significant ischemia or infarction and LVEF was 60% - Echo of August 25, [address] Cortez: LVEF 55-65%, grade 1 diastolic dysfunction. Mild TR. PASP approx 20 mmHg Diabetes Mellitus -managed per primary physician Obesity - with BMI approx 31 LETICIA/nocturnal hypoxia - treated with supple nocturnal oxygen at night Micronodules of RML and LLL - on CT chest of 07/23/16, followed by Dr Wolf/Dr. Jackson Hepatic steatosis - on CT chest of 07/23/16 Chronic leg swelling and stasis dermatitis - due to venous insufficiency. 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 (sub-therapuetic INR at the time) - treated with chronic warfarin therapy - managed by Dr Wolf - H/o TrapEase Vena Cava Filter by Dr Gray on 05/28/09 Tobaccoism: - Quit smoking in 2001 Leg discomfort: - No evidence of any significant obstructive arterial disease of the legs on segmental pressures of early July 2016 Carotid dz: - Mild carotid art disease on carotid u/s of Feb 2019 Supervisory-Addendum Brief Verification & Attestation Participated in pt care: history, MDM, physical Personally performed: exam, history, MDM, supervision of care Care discussed with: Medical Student Procedures: n/a I peronally interviewed and examined the patient and reviewed her records. I discussed the case with the med student. Our assessment and plan are listed above MIKE JOHNSON MED STUDENT Sep 04, 2021 12:04 PAVAN NASH MD FACP [facility] Sep 04, 2021 17:22
[2021-09-04 15:30] VITALS: BP 136/79
[2021-09-04] MEDS ORDERED: FLEET ENEMA ADULT 1 EA BTL PR NR (16:00)
[2021-09-04 20:00] VITALS: BP 128/67
[2021-09-04] MEDS: MONTELUKAST 10 MG (SINGULAIR) TAB PO SCH (20:20)
[2021-09-04] MEDS: polyethylene glycoL POWDER 17 GM (MIRALAX) PACK PO SCH (22:24)
[2021-09-05 00:21] VITALS: BP 131/76
[2021-09-05] MEDS: RT-ALBUTEROL/IPRATROPIUM 3 ML (DUONEB) VIAL INH SCH ×4 (02:48→14:47)
[2021-09-05 04:29] VITALS: BP 104/64
[2021-09-05] MEDS: ONDANSETRON 4 MG/2 ML (SDV) Z0FRAN IVP PRN (04:44)
[2021-09-05] MEDS: CATHETER FLUSH 10 ML SYR IVP SCH (04:44)
[2021-09-05] MEDS: inSUlin ASPART (NovoLOG) 1 UNIT/0.01 ML (CHARGE PER UNIT) SC SCH ×3 (05:30→16:06)
[2021-09-05 06:10] LABS: BASOPHILS % (AUTO) 0 % (0-10); EOSINOPHILS # (AUTO) 0.1 10^3/uL (0.0-0.3); EOSINOPHILS % (AUTO) 1 % (0-10); HEMATOCRIT 42 % (35-52); HEMOGLOBIN 12.9 g/dL (11.5-16.0); LYMPHOCYTES % (AUTO) 30 % (12-44); MEAN CORPUSCULAR HEMOGLOBIN 27 pg (25-34); MEAN CORPUSCULAR HGB CONC 31 g/dL (32-36); MEAN CORPUSCULAR VOLUME 87 fL (80-99); MEAN PLATELET VOLUME 8.6 fL (9.0-12.2); MONOCYTES # (AUTO) 0.9 10^3/uL (0.0-1.0); MONOCYTES % (AUTO) 9 % (0-12); NEUTROPHILS % (AUTO) 60 % (42-75); PLATELET COUNT 291 10^3/uL (130-400); WHITE BLOOD COUNT 9.9 10^3/uL (4.3-11.0)
[2021-09-05] MEDS: FUROSEMIDE 40 MG (LASIX) TAB PO SCH (06:21)
[2021-09-05] MEDS: predniSONE 20 MG TAB PO SCH (06:21)
[2021-09-05 06:35] LABS: ALBUMIN 3.6 GM/DL (3.2-4.5); BILIRUBIN,TOTAL 0.5 MG/DL (0.1-1.0); CALCIUM 8.4 MG/DL (8.5-10.1); CREATININE SERUM 0.74 MG/DL (0.60-1.30); POTASSIUM 3.6 MMOL/L (3.6-5.0); TOTAL PROTEIN 6.8 GM/DL (6.4-8.2)
[2021-09-05 07:22] VITALS: BP 121/74
[2021-09-05] MEDS: LORATADINE (CLARITIN) 10 MG TAB PO SCH (08:33)
[2021-09-05] MEDS: PANTOPRAZOLE 40 MG (PROTONIX) TAB PO SCH (08:33)
[2021-09-05] MEDS: KCL 10 MEQ TAB (MICRO K) PO SCH (08:33)
--- NOTE | 2021-09-05 09:54 | Progress Note - Cardiology ---
Cardiology SOAP Progress Note Subjective: Sitting up in recliner at the bedside States she feels well No c/o CP, SOB, palpitations, syncope or near syncope Objective: I&O/Vital Signs Weight (Pounds): 184 Weight (Ounces): 5.0 Weight (Calculated Kilograms): 83.264203 Constitutional: AAO x 3, well-developed, well-nourished Respiratory: No accessory muscle use, No respiratory distress; chest expansion is symmetric, chest is bilaterally symmetric, lungs clear to auscultation Cardiovascular: No JVD; tachycardia, S1 and S2 Gastrointestional: No tender; soft, round, audible bowel sounds Extremities: no lower extremity edema bilateral Neurologic/Psychiatric: grossly intact (moves all extremities) Skin: No rash on exposed areas, No ulcerations on exposed areas Results/Procedures: Labs Microbiology 08/31/21 Blood Culture - Final, Complete No growth 08/31/21 Urine Culture - Final, Complete 3 or more isolates A/P: Assessment: Palpitations of undetermined etiology - continue telemetry; no significant arrhythmia seen so far - H/O palpitations, w/u as below - Ambulatory card monitoring 07/05/16 to 07/19/16 showed no significant arrhythmia and an average heart rate of 106 bpm - 24 HR Holter of Apr 19, 2020 showed predominately SR with sinus arrhythmia; av HR 91 bpm; occ PVC, PAC; occ brief SVT up to 4 beats in length up to 154 bpm; no VT or signif bradycardia Sinus Tachycardia - improved, continue telemetry COPD exacerbation -managed per primary physician Exertional dyspnea - Cardiac cath of 06-21-21 showed: No angiographically significant coronary artery disease. Normal global left ventricular systolic function with an ejection fraction approximately 60%. Left ventricular end-diastolic pressure is 18 mmHg. Orthostatic hypotension - likely d/t medication - resolved following reduction Nonspecific chest discomfort - MPI of Feb 2019 did not show any significant ischemia or infarction and LVEF was 60% - Echo of August 25, [address] Cortez: LVEF 55-65%, grade 1 diastolic dysfunction. Mild TR. PASP approx 20 mmHg Diabetes Mellitus -managed per primary physician Obesity - with BMI approx 31 LETICIA/nocturnal hypoxia - treated with supple nocturnal oxygen at night Micronodules of RML and LLL - on CT chest of 07/23/16, followed by Dr Rogers/Dr. Jackson Hepatic steatosis - on CT chest of 07/23/16 Chronic leg swelling and stasis dermatitis - due to venous insufficiency. 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
[2021-09-05 11:26] VITALS: BP 102/67
[2021-09-05 15:58] VITALS: BP 105/67
--- NOTE | 2021-09-05 16:06 | Progress Note - Cardiology ---
Cardiology SOAP Progress Note Subjective: Palpitations resolved after constipation was relieved with an enema yesterday No cp or syncope No focal weakness No n/v Shortness of breath at usual baseline Objective: I&O/Vital Signs 09/05/21 09/05/21 09/05/21 09/05/21 04:29 07:22 07:47 08:00 Temp 36.3 36.7 Pulse 107 102 Resp 18 18 B/P (MAP) 104/64 (77) 121/74 (90) Pulse Ox 94 93 93 O2 Delivery Nasal Cannula Nasal Cannula Nasal Cannula Nasal Cannula O2 Flow Rate 2.00 2.00 2.00 2.00 09/05/21 09/05/21 09/05/21 09/05/21 10:53 11:26 13:00 14:47 Temp 36.6 Pulse 62 120 Resp 18 B/P (MAP) 102/67 (79) Pulse Ox 95 92 95 O2 Delivery Nasal Cannula Nasal Cannula Nasal Cannula O2 Flow Rate 2.00 2.00 2.00 09/05/21 15:58 Temp 36.6 Pulse 110 Resp 20 B/P (MAP) 105/67 (80) Pulse Ox 93 O2 Delivery Nasal Cannula O2 Flow Rate 2.00 09/05/21 00:00 Intake Total 566 ml Output Total 1650 ml Balance -1084 ml Weight (Pounds): 184 Weight (Ounces): 5.0 Weight (Calculated Kilograms): 83.825119 Constitutional: AAO x 3, well-developed, well-nourished Respiratory: No accessory muscle use, No respiratory distress; chest expansion is symmetric, chest is bilaterally symmetric, lungs clear to auscultation Cardiovascular: No JVD; tachycardia, S1 and S2 Gastrointestional: No tender; soft, round, audible bowel sounds Extremities: no lower extremity edema bilateral Neurologic/Psychiatric: grossly intact (moves all extremities) Skin: No rash on exposed areas, No ulcerations on exposed areas Results/Procedures: Labs Laboratory Tests 09/04/21 20:18: Glucometer 143H 09/05/21 05:25: Glucometer 132H 09/05/21 05:46: White Blood Count 9.9, Red Blood Count 4.77, Hemoglobin 12.9, Hematocrit 42, Mean Corpuscular Volume 87, Mean Corpuscular Hemoglobin 27, Mean Corpuscular Hemoglobin Concent 31L, Red Cell Distribution Width 16.6H, Platelet Count 291, Mean Platelet Volume 8.6L, Immature Granulocyte % (Auto) 1, Neutrophils (%) (Auto) 60, Lymphocytes (%) (Auto) 30, Monocytes (%) (Auto) 9, Eosinophils (%) (Auto) 1, Basophils (%) (Auto) 0, Neutrophils # (Auto) 6.0, Lymphocytes # (Auto) 3.0, Monocytes # (Auto) 0.9, Eosinophils # (Auto) 0.1, Basophils # (Auto) 0.0, Immature Granulocyte # (Auto) 0.1, Sodium Level 142, Potassium Level 3.6, Chloride Level 100, Carbon Dioxide Level 26, Anion Gap 16H, Blood Urea Nitrogen 19H, Creatinine 0.74, Estimat Glomerular Filtration Rate 91, BUN/Creatinine Ratio 26, Glucose Level 120H, Calcium Level 8.4L, Corrected Calcium 8.7, Total Bilirubin 0.5, Aspartate Amino Transf (AST/SGOT) 12, Alanine Aminotransferase (ALT/SGPT) 23, Alkaline Phosphatase 68, Total Protein 6.8, Albumin 3.6 09/05/21 10:20: Glucometer 178H 09/05/21 16:01: Glucometer 135H Microbiology 08/31/21 Blood Culture - Preliminary, Resulted No growth 08/31/21 Urine Culture - Final, Complete 3 or more isolates Laboratory Tests 09/04/21 05:46 09/05/21 05:46 A/P: Assessment: Palpitations of undetermined etiology - continue telemetry; no significant arrhythmia seen so far - H/O palpitations, w/u as below - Ambulatory card monitoring 07/05/16 to 07/19/16 showed no significant arrhythmia and an average heart rate of 106 bpm - 24 HR Holter of Apr 19, 2020 showed predominately SR with sinus arrhythmia; av HR 91 bpm; occ PVC, PAC; occ brief SVT up to 4 beats in length up to 154 bpm; no VT or signif bradycardia Sinus Tachycardia - improved, continue telemetry COPD exacerbation -managed per primary physician Exertional dyspnea - Cardiac cath of 06-21-21 showed: No angiographically significant coronary artery disease. Normal global left ventricular systolic function with an ejection fraction approximately 60%. Left ventricular end-diastolic pressure is 18 mmHg. - Echo 09/05/21: LVEF 60-65% Orthostatic hypotension - likely d/t medication - resolved following reduction Nonspecific chest discomfort - MPI of Feb 2019 did not show any significant ischemia or infarction and LVEF was 60% Diabetes Mellitus -managed per primary physician Obesity - with BMI approx 31 LETICIA/nocturnal hypoxia - treated with supple nocturnal oxygen at night Micronodules of RML and LLL - on CT chest of 07/23/16, followed by Dr Rogers/Dr. Jackson Hepatic steatosis - on CT chest of 07/23/16 Chronic leg swelling and stasis dermatitis - due to venous insufficiency. 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
[2021-09-05] MEDS ORDERED: POLY17PO54 PO (16:26)
--- NOTE | 2021-09-05 16:28 | Discharge Inst-Simple/Standard ---
Discharge Inst-Standard Discharge Medications New, Converted or Re-Newed RX: Transmitted to Pharmacy ([facility]) Patient Instructions/Follow Up Plan of Care/Instructions/FU: follow-up with Dr. Wolf in one week. Continue to use Prednisone 20mg at 3 daily for 3 days then 2 daily for 3 days then 1 daily for 3 days then off. Activity as Tolerated: Yes Discharge Diet: ADA Diet Return to The Hospital For: significant shortness of breath, abdominal distention not relieved with passing gas or bowel movement LEAH WOLF MD Sep 05, 2021 16:28
--- NOTE | 2021-09-05 16:33 | Discharge Summary ---
Diagnosis/Chief Complaint Date of Admission Aug 31, 2021 at 10:41 Date of Discharge Discharge Date: Sep 05, 2021 Admission Diagnosis Admission Diagnosis 1. Severe dyspnea possibly sepsis from pneumonia (on admit) along with COPD exacerbation 2. Tachycardia and I believe this is related to her exacerbation of #1 3. Hypertension 4. History of DVT and PE currently on anticoagulation with warfarin Discharge Diagnosis 1. Severe dyspnea now likely viral bronchitis along with COPD exacerbation 2. Tachycardia and I believe this is related to her exacerbation of #1 3. Hypertension 4. History of DVT and PE currently on anticoagulation with warfarin 5. Constipation Reason Hospital Visit 61 yo presented to [facility] ED via EMS following significant dyspnea. She basically was at home this morning doing her usual routine morning medications and having her coffee. She reports she became extremely dyspneic and this prompted her to seek medical care. She contacted family and ultimately EMS arrived to take her to hospital. She has known COPD with frequent exacerbations and he is on 2 L oxygen at home. She does admit to her heart racing as well. She has had a cough with occasional yellow-tinged sputum. Discharge Summary Hospital Course Hospital Course 1. Severe dyspnea now likely viral bronchitis along with COPD exacerbation -She is placed on cefepime as well as doxycycline 09/01/2021 -today is day #2 of cefepime and doxycycline. -blood, sputum and urine culture pending 09/04 -cultures negative -cefepime and doxycycline dc'ed over the weekend -begin prednisone this am, if tolerates may be dc'ed in the am of 09/05 -back to q4h with albuterol for 24 hrs. Hopefully will be able to space back o ut treatments o/p 2. Tachycardia and I believe this is related to her exacerbation of #1 -Improved 09/01 -tachycardia resolved 09/04/2021 -Tachycardia returned in the afternoon of . 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 Núñez Echo and ecg performed 3. Hypertension -We will continue her antihypertensive as deemed necessary 4. 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 Constipation -likely due to inactivity and pain med usage -will give glycerin supp this am -Fiber recommended o/p Labs Laboratory Tests 09/02/21 20:11: Glucometer 179H 09/03/21 05:38: Glucometer 166H 09/03/21 05:53: White Blood Count 13.9H, Mean Corpuscular Hemoglobin Concent 31L, Red Cell Distribution Width 16.4H, Mean Platelet Volume 8.7L, Neutrophils (%) (Auto) 88H, Lymphocytes (%) (Auto) 6L, Neutrophils # (Auto) 12.3H, Lymphocytes # (Auto) 0.9L , Prothrombin Time 33.0H, INR Comment 3.2H, Glucose Level 182H 09/03/21 11:23: Glucometer 117H 09/03/21 15:18: Glucometer 247H 09/03/21 20:05: Glucometer 168H 09/04/21 05:45: Glucometer 132H 09/04/21 05:46: White Blood Count 14.5H, Mean Corpuscular Hemoglobin Concent 31L, Red Cell Distribution Width 16.4H, Mean Platelet Volume 8.7L, Neutrophils (%) (Auto) 78H, Neutrophils # (Auto) 11.4H, Prothrombin Time 30.0H, INR Comment 2.8H, Anion Gap 18H, Blood Urea Nitrogen 19H, Glucose Level 137H 09/04/21 10:38: Glucometer 148H 09/04/21 15:32: Glucometer 211H 09/04/21 20:18: Glucometer 143H 09/05/21 05:25: Glucometer 132H 09/05/21 05:46: Mean Corpuscular Hemoglobin Concent 31L, Red Cell Distribution Width 16.6H, Mean Platelet Volume 8.6L, Anion Gap 16H, Blood Urea Nitrogen 19H, Glucose Level 120H , Calcium Level 8.4L 09/05/21 10:20: Glucometer 178H 09/05/21 16:01: Glucometer 135H Procedures None. Discharge Physical Examination Allergies: Coded Allergies: aspirin (Verified Allergy, Severe, ANAPHYLAXIS, 03/03/19) ibuprofen (Verified Allergy, Severe, ANAPHYLAXIS, 03/03/19) ketorolac (Verified Allergy, Severe, ANAPHYLAXIS, 03/03/19) tetanus and diphtheria toxoids (Unverified Allergy, Severe, ANAPHYLAXIS, 03/03/19) aloe (Verified Allergy, Mild, RASH, 03/03/19) latex (Verified Allergy, Mild, RASH, 03/03/19) OCCASIONALLY IS IRRITATING SKIN scopolamine (Verified Allergy, Mild, 03/03/19) iodine (Verified Adverse Reaction, Unknown, 03/03/19) Patient states she got dizzy, diaphoretic and saw stars. Uncoded Allergies: ALOE VERA (Allergy, Unknown, 12/23/05) SILK SUTURES (Adverse Reaction, Unknown, BODY REJECTS SUTURES, 10/07/13) Vitals & I&Os Vital Signs Date Time Temp Pulse Resp B/P (MAP) Pulse Ox O2 Delivery O2 Flow Rate FiO2 09/05/21 15:58 36.6 110 20 105/67 (80) 93 Nasal Cannula 2.00 Discharge Home Medications Reviewed and agree with Discharge Medication list on patient's Discharge Instruction sheet Instructions to Patient/Family Please see electronic discharge instructions given to patient. LEAH WOLF MD Sep 05, 2021 16:33
[2021-09-05 16:45] VITALS: BP 105/67
[2021-09-05] MEDS ORDERED: warFARin 4 MG (COUMADIN) TAB PO SCH (18:00)
[2021-09-06] MEDS ORDERED: warFARin 5 MG (COUMADIN) TAB PO SCH (18:00)
--- NOTE | 2021-09-06 21:06 | Physician Query Clarification ---
PQ-Uncertain Diagnosis Admission/Discharge Admission Date: Aug 31, 2021 at 10:41 Discharge Date: Sep 05, 2021 at 17:00 Dr. Wolf, The medical record reflects the following clinical scenario: History/Risk Factors: COPDAE, pneumonia, viral bronchitis Clinical Findings: Lactic acid 2.69, T 38.1, P 142, R 24, BP 189/130 Treatment: IV Cefepime Question: Is sepsis a clinically valid diagnosis? Sepsis was documented in the ER record with no further documentation in the medical record. Please document a response in Progress Note or Discharge Summary. 1. Yes, clinically valid, condition resolved. 2. No, condition ruled out. 3. Other, with explanation of clinical findings. 4. Undetermined, no explanation for clinical findings. PHYSICIAN RESPONSE Diagnosis clinically valid: No, conditon ruled out Please remember a lack of response to the above will prompt a phone page by CDI/Coding staff. In responding to this query, please exercise your independent professional judgment. The purpose of this communication is to more accurately reflect the complexity of your patients condition. The fact that a question is asked does not imply that any particular answer is desired or expected. Thank you for your timely response to this clarification. Requestors name: [ ] Phone # [ ] THIS PHYSICIAN QUERY FORM IS A PERMANENT PART OF THE MEDICAL RECORD MILO MUNIZ Sep 06, 2021 21:06 LEAH WOLF MD September 20, 2021 07:30
--- NOTE | 2021-09-06 21:14 | Physician Query Clarification ---
PQ-Uncertain Diagnosis Admission/Discharge Admission Date: Aug 31, 2021 at 10:41 Discharge Date: Sep 05, 2021 at 17:00 Dr. Wolf, The medical record reflects the following clinical scenario: History/Risk Factors: COPDAE, viral bronchitis Clinical Findings: 08/31 CXR 1: There is no definite lung infiltrate. There is mild right bibasilar atelectasis. 2: Stable appearance of the chest with a prominent pericardial fat-pad. WBC 8.5 08/31 up to 14.5 09/04, T 38.1, R 24 Treatment: IV Cefepime Question: Is pneumonia a clinically valid diagnosis? Pneumonia was documented in the ER record with no further documentation in the medical record. Please document a response in Progress Note or Discharge Summary. 1. Yes, clinically valid, condition resolved. 2. No, condition ruled out. 3. Other, with explanation of clinical findings. 4. Undetermined, no explanation for clinical findings. PHYSICIAN RESPONSE Diagnosis clinically valid: Other, explanation/clinical finding Explanation of clincal finding She was found to have a viral bronchitis with COPD exacerbation. Please remember a lack of response to the above will prompt a phone page by CDI/Coding staff. In responding to this query, please exercise your independent professional judgment. The purpose of this communication is to more accurately reflect the complexity of your patients condition. The fact that a question is asked does not imply that any particular answer is desired or expected. Thank you for your timely response to this clarification. Requestors name: Milo THIS PHYSICIAN QUERY FORM IS A PERMANENT PART OF THE MEDICAL RECORD MILO MUNIZ Sep 06, 2021 21:14 LEAH WOLF MD September 20, 2021 07:31
== END 2021-09-05 17:00 | disposition home or self-care (01) | DRG 192 ==
LOC: EDUNIT# 08:42 → ER 08:45 → 4TH 10:41
PROVIDERS: ADMIT Family Medicine; ATTEND Family Medicine
DX: J44.0 Chronic obstructive pulmonary disease with (acute) lower respiratory infection (principal); J44.1 Chronic obstructive pulmonary disease with (acute) exacerbation; J20.8 Acute bronchitis due to other specified organisms; E11.65 Type 2 diabetes mellitus with hyperglycemia; E11.40 Type 2 diabetes mellitus with diabetic neuropathy, unspecified; K59.00 Constipation, unspecified; G47.33 Obstructive sleep apnea (adult) (pediatric); E66.9 Obesity, unspecified; Z20.822 Contact with and (suspected) exposure to COVID-19; I10 Essential (primary) hypertension; E78.00 Pure hypercholesterolemia, unspecified; K21.9 Gastro-esophageal reflux disease without esophagitis; I87.2 Venous insufficiency (chronic) (peripheral); R00.0 Tachycardia, unspecified; T38.0X5A Adverse effect of glucocorticoids and synthetic analogues, initial encounter; Z68.38 Body mass index [BMI] 38.0-38.9, adult; Z86.718 Personal history of other venous thrombosis and embolism; Z99.81 Dependence on supplemental oxygen; Z79.01 Long term (current) use of anticoagulants; Z86.711 Personal history of pulmonary embolism; Z87.891 Personal history of nicotine dependence; K76.0 Fatty (change of) liver, not elsewhere classified; R91.8 Other nonspecific abnormal finding of lung field; Z79.52 Long term (current) use of systemic steroids; Z88.7 Allergy status to serum and vaccine; Z88.8 Allergy status to other drugs, medicaments and biological substances; Z88.6 Allergy status to analgesic agent; Z91.040 Latex allergy status; Z83.3 Family history of diabetes mellitus; Z82.5 Family history of asthma and other chronic lower respiratory diseases; Z82.49 Family history of ischemic heart disease and other diseases of the circulatory system
CPT/HCPCS: 36415; 71045; 80053; 81000; 82947; 83605; 83615; 83880; 84145; 84484; 85007; 85025; 85027; 85610; 85730; 86141; 87040; 87088; 87636; 93005; 93306; 94640; 94760; 96361; 96365; 96366; 96375

== ENCOUNTER 2021-10-04 09:58 | Outpatient (RCR) | payer MEDICAID ==
[2021-09-29 10:16] LABS: INR 1.4 (0.8-1.4); PROTHROMBIN TIME PATIENT 17.9 SEC (12.2-14.7)
[~2021-10-04 09:58] MED LIST changes: +POLY17PO54 PO
[2021-10-04 10:20] LABS: INR 1.2 (0.8-1.4); PROTHROMBIN TIME PATIENT 15.3 SEC (12.2-14.7)
== END 2021-10-10 | disposition home or self-care (01) ==
LOC: LAB 09:58
PROVIDERS: ATTEND Family Medicine
DX: Z86.718 Personal history of other venous thrombosis and embolism (principal); Z86.711 Personal history of pulmonary embolism
CPT/HCPCS: 36415; 85610

== ENCOUNTER 2021-10-15 08:23 | Emergency (ER) | payer MEDICAID ==
[~2021-10-15] VITALS: Ht 165 cm; Wt 103.7 kg
--- NOTE | 2021-10-15 09:21 | ED Lower Extremity ---
General Chief Complaint: Lower Extremity Stated Complaint: LEG PAIN Nursing Triage Note: pt states "same old thing" hx of swelling in her legs, painful with drainage. states she needs to call wound care tomorrow. 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 It sounds like when I am questioning her about her medication compliance that she is noncompliant or at least on occasion very forgetful about her medications. She states over recent weeks that she has been subtherapeutic on her Coumadin. She states she noticed 2 or 3 open ulcerations that have developed over the last several days to the left leg and they have been draining. She complains of increased pain especially at the ankle and posterior calf. She states it was worse this morning when she woke up. She denies fevers or chills. She is not short of breath. On examination she is quite tachycardic with a heart rate in the 120s. History of chronic wounds to her lower extremities and follows at wound care. No nausea, vomiting, diarrhea. No chest pain. No other complaints of illness or injury. All other review of systems reviewed and negative except as stated. Onset: other (2 to 3 days) Severity: moderate Pain/Injury Location: left leg Allergies and Home Medications Allergies Coded Allergies: aspirin (Verified Allergy, Severe, ANAPHYLAXIS, 03/03/19) ibuprofen (Verified Allergy, Severe, ANAPHYLAXIS, 03/03/19) ketorolac (Verified Allergy, Severe, ANAPHYLAXIS, 03/03/19) tetanus and diphtheria toxoids (Unverified Allergy, Severe, ANAPHYLAXIS, 03/03/19) aloe (Verified Allergy, Mild, RASH, 03/03/19) latex (Verified Allergy, Mild, RASH, 03/03/19) OCCASIONALLY IS IRRITATING SKIN scopolamine (Verified Allergy, Mild, 03/03/19) iodine (Verified Adverse Reaction, Unknown, 03/03/19) Patient states she got dizzy, diaphoretic and saw stars. Uncoded Allergies: ALOE VERA (Allergy, Unknown, 12/23/05) SILK SUTURES (Adverse Reaction, Unknown, BODY REJECTS SUTURES, 10/07/13) Patient Home Medication List Home Medication List Reviewed: Yes Albuterol Sulfate (Proair Hfa) 8.5 Gm Hfa.aer.ad, 2 PUFF IH Q4H PRN for SHORTNESS OF BREATH, (Reported) Entered as Reported by: YOSSI NELSON on 08/10/15 1057 Albuterol Sulfate (Albuterol Sulfate) 2.5 Mg/3 Ml Vial.neb, 2.5 MG NEB TID, (Reported) Entered as Reported by: YOSSI NELSON on 05/28/19 0952 Alprazolam (Alprazolam) 1 Mg Tablet, 1 MG PO BID PRN for ANXIETY, (Reported) Entered as Reported by: JESÚS PHILLIPS on 03/07/15 1623 Ascorbic Acid (Vitamin C) 1,000 Mg Tablet, 1,000 MG PO DAILY, (Reported) Entered as Reported by: SHAMIR SALAZAR on 06/13/21 1034 Calcium Carbonate/Vitamin D3 (Calcium 600 + Vit D 200 Tablet) 1 Each Tablet, 1 EACH PO BID, (Reported) Entered as Reported by: SHAMIR SALAZAR on 06/13/21 1034 Cholecalciferol (Vitamin D3) (Vitamin D3) 25 Mcg Capsule, 25 MCG PO DAILY, (Reported) Entered as Reported by: SHAMIR SALAZAR on 06/13/21 1034 Furosemide (Furosemide) 40 Mg Tablet, 40 MG PO DAILY, (Reported) Entered as Reported by: YOSSI NELSON on 03/03/19 1340 Hydrocodone/Acetaminophen (Hydrocodone-Acetamin 10-325 mg) 1 Each Tablet, 1 EACH PO Q6H PRN for PAIN-MODERATE (5-7), (Reported) Entered as Reported by: SHAMIR SALAZAR on 06/13/21 1034 Hyoscyamine Sulfate (Hyoscyamine Sulfate) 0.125 Mg Tab.subl, 0.125 MG SL Q4H PRN for GI SPASMS, (Reported) Entered as Reported by: SHAMIR SALAZAR on 06/13/21 1034 Ipratropium [place] (Ipratropium [place]) 0.2 Mg/1 Ml Solution, 1 VIAL NEB TID, (Reported) Entered as Reported by: JESÚS PHILLIPS on 03/07/15 1640 Loratadine (Loratadine) 10 Mg Tablet, 10 MG PO DAILY, (Reported) Entered as Reported by: JESÚS PHILLIPS on 03/07/15 1623 Montelukast Sodium (Montelukast Sodium) 10 Mg Tablet, 10 MG PO HS, (Reported) Entered as Reported by: MELISSA MONTERO on 05/18/17 1103 Pantoprazole Sodium (Pantoprazole Sodium) 40 Mg Tablet.dr, 40 MG PO DAILY, (Reported) Entered as Reported by: JESÚS PHILLIPS on 03/07/15 1623 Polyethylene Glycol 3350 (Polyethylene Glycol 3350) 17 Gram Powd.pack, 17 GM PO HS Prescribed by: LEAH WOLF on 09/05/21 1626 Potassium Chloride (K-Tab ER) 10 Meq Tablet.er, 20 MEQ PO BID, (Reported) Entered as Reported by: YOSSI NELSON on 05/28/19 0952 Prednisone (Prednisone) 10 Mg Tab, 10 MG PO DAILY, (Reported) Entered as Reported by: SHAMIR SALAZAR on 06/13/21 1034 Warfarin Sodium (Jantoven) 4 Mg Tablet, 4 MG PO Q48H, (Reported) Entered as Reported by: YOSSI NELSON on 05/28/19 0952 Warfarin Sodium (Jantoven) 5 Mg Tablet, 5 MG PO Q48H, (Reported) Entered as Reported by: SHAMIR SALAZAR on 07/20/19 1602 Review of Systems Constitutional: see HPI EENTM: nose congestion Respiratory: short of breath (Chronic) Cardiovascular: no symptoms reported Gastrointestinal: no symptoms reported 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: no symptoms reported Musculoskeletal: other (Left leg pain and swelling) Skin: other (Ulcerations left leg) Psychiatric/Neurological: No Symptoms Reported All Other Systems Reviewed Negative Unless Noted: Yes Past Ipxavll-Qbgrvk-Ikgoqw Hx Patient Social History Tobacco Use?: Yes Smoking Status: Former Smoker Substance use?: No Alcohol Use?: No Immunizations Up To Date Tetanus Booster (TDap): Unknown PED Vaccines UTD: No Seasonal Allergies Seasonal Allergies: Yes Past Medical History Surgery/Hospitalization HX: Heart cath, hysterectomy, knee scope, ablasion on both knees, hernia reapir, copd, chf, asthma Surgeries: Yes (C/S X2, KNEE SCOPE, SHOULDER SCOPE, d&C, BILAT ULNAR NERVE, VENA CAVA FILTE) Abdominal, Adenoidectomy, Section, Gallbladder, Hysterectomy, Orthopedic, Tonsillectomy, Tubal Ligation, Vascular Surgery Respiratory: Yes (O2 AT HS 2-3L/NC AND PRN--NOCTURNAL HYPOXIA; ) Asthma, Pneumonia, Chronic Bronchitis, Pulmonary Embolism, COPD Currently Using CPAP: No Currently Using BIPAP: No Cardiac: Yes (MULTIPLE DVT'S AND P.E.'S ) Chronic Edema/Swelling, Deep Vein Thrombosis, High Cholesterol, Hypertension, Peripheral Vascular Neurological: Yes Neuropathy 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, Menopausal Sexually Transmitted Disease: No HIV/AIDS: No 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: Yes Kidney Infection, Bladder Infection, Kidney Stones Gastrointestinal: Yes (MULTIPLE HERNIA REPAIRS; MULTIPLE EGD'S /COLONOSCOPIES/POLYPECTOMIES) Abdominal Hernia, Gastroesophageal Reflux, Chronic Constipation, Chronic Diarrhea, Hepatitis, Polyps, Hiatal Hernia, Irritable Bowel Musculoskeletal: Yes (MULTIPLE ORTHO SURGERIES) Arthritis Endocrine: Yes ("PRE-DIABETIC" ) HEENT: Yes (NASAL POLYPS REMOVED) Cataract Loss of Vision: Denies Hearing Impairment: Denies Cancer: No Did You Recieve Any Treatments: No Psychosocial: Yes Anxiety Integumentary: Yes (CHRONIC VENOUS STASIS DERMATITIS AND ULCERS. CELLULTITIS OF LEGS;TATTOOS ) Blood Disorders: Yes (DVT'S/PE'S; PROBABLE PROTEIN C DEFICIENCY) Adverse Reaction/Blood Tranf: No (HAS HAD BLOOD WITH NO PROBLEMS) Family Medical History Alcoholism Alcoholism Arthritis Asthma 19 MOTHER Cancer G8 BROTHER G8 SISTER Cancer of colon Cancer of mouth Cardiovascular disease Cataract Cataracts Chest pain Colon cancer Completed stroke Diabetes mellitus Family history: Allergy Family history: Arthritis Family history: Asthma Family history: Cardiovascular disease Family history: Coronary thrombosis Family history: Diabetes mellitus G8 BROTHER G8 SISTER Family history: Gastrointestinal disease Family history: Hypertension Family history: Thyroid disorder Headache Hearing loss Heart disease 19 MOTHER History of - anemia History of - respiratory disease Hypercholesterolemia Hypercholesterolemia Hypertension 19 FATHER Infertile Malignant neoplasm of lung Myocardial infarction Myocardial infarction Psychotic disorder Respiratory disorder Stroke No Family History of: AIDS Abdominal aortic aneurysm Abdominal aortic aneurysm Fernando's disease [place]'s disease Alzheimer's disease Aphasia Aphasia Congenital disease Congenital heart disease Congenital heart disease Congestive heart failure Coronary thrombosis Cystic fibrosis Cystic fibrosis Deafness or hearing loss Dementia Dementia Drug abuse Dysphagia Dysphasia Family history: Alzheimer's disease Family history: Breast disease Family history: Glaucoma Family history: Osteoporosis Fibrocystic disease of breast Gastroenteritis Glaucoma Headache disorder Hereditary disease History of - disorder History of drug abuse Human immunodeficiency virus (HIV) seropositivity Infertility Kidney disease Kidney disease Neoplasm Not obtainable due to adoption Osteoporosis Parkinson's disease Parkinson's disease Prostate cancer Psychosocial problem Seizure disorder Seizure disorder Severe allergy Thyroid disease Tuberculosis Tuberculosis Visual disorder Visual impairment Cancer, COPD, Vascular Disease SOCIAL HISTORY: -ETOH--RARE USE NOW, HISTORY OF HEAVY USE/ABUSE -DRUGS-HX OF IV COCAINE USE -SMOKED 1 PPD, QUIT 2000 PAST SURGICAL HISTORY: -C-SECTIONS 1981, 1985 -SHOULDER SURGERY 2007 -LEFT KNEE SURGERY 2008 -D&C 2008 -HYSTERECTOMY/BILATERAL SALPINGO-OOPHORECTOMY 2008 -VENA CAVA FILTER 2009 -EGD 2010 -VEIN STRIPPING IN LEGS 2012 -BILATERAL ELBOW/ULNAR NERVE SURGERY 2012 -MULTIPLE HERNIA REPAIRS -MULTIPLE EGD'S AND COLONOSCOPIES AND POLYPECTOMIES -TONSILLECTOMY/ADENOIDECTOMY -CHOLECYSTECTOMY -NASAL POLYPS REMOVED -BILATERAL LEG RADIOABLATION 06/2018 ADDITIONAL PAST MEDICAL HISTORY: -MULTIPLE DVT'S AND P.E.'S -CHRONIC VENOUS STASIS ULCERATIONS -LEG CELLULITIS Physical Exam Vital Signs Vital Signs - First Documented 10/15/21 08:32 Temp 37.0 Pulse 130 Resp 22 B/P (MAP) 134/96 (109) Pulse Ox 94 O2 Delivery Room Air Capillary Refill : Less Than 3 Seconds Height, Weight, BMI Height: 5'5.00" Weight: 184lbs. 5.0oz. 83.638017ld; 38.00 BMI Method:Stated General Appearance: WD/WN, no apparent distress HEENT: PERRL/EOMI Cardiovascular: regular rate, rhythm, tachycardia (120 HR) Respiratory: normal breath sounds, no respiratory distress, no accessory muscle use, other (Trace inspiratory expiratory repeat wheeze noted on the right side greater than left, no increased work of breathing, oxygen saturations are normal) Hips: bilateral hip non-tender, bilateral hip normal inspection, bilateral hip normal range of motion, bilateral hip no evidence of injury Legs: left leg pain, left leg soft tissue tenderness, left leg swelling, left leg other (No discrete calf pain. ) Knees: bilateral knee non-tender, bilateral knee normal inspection, bilateral knee normal range of motion, bilateral knee no evidence of injury Ankles: bilateral ankle non-tender, bilateral ankle normal inspection, bilateral ankle normal range of motion, bilateral ankle no evidence of injury Neurologic/Tendon: normal sensation, normal motor functions, normal tendon functions Neurologic/Psychiatric: alert, normal mood/affect, oriented x 3 Skin: other (3 shallow ulcerations noted to the left lower extremity with yellowish clear drainage. None of them are larger than 1-1/2 cm) Progress/Results/Core Measures Results/Orders Lab Results Laboratory Tests Test 10/15/21 09:31 Range/Units Prothrombin Time 20.5 H 12.2-14.7 SEC INR Comment 1.7 H 0.8-1.4 My Orders Orders - ROSALIND ANDREA MD Protime With Inr (10/15/21 09:17) Us Venous Lower Ext Lt (10/15/21 09:35) Albuterol Pre-Mix Nebs (Rt) (Proventil (10/15/21 11:15) Svn Small Volume Nebulizer (10/15/21 11:12) Medications Given in ED Current Medications Medications Dose Ordered Sig/Nahomi Route Start Time Stop Time Status Last Admin Dose Admin Albuterol Sulfate 2.5 mg ONCE ONCE INH 10/15/21 11:15 10/15/21 11:16 DC 10/15/21 11:16 2.5 MG Vital Signs/I&O 10/15/21 08:32 Temp 37.0 Pulse 130 Resp 22 B/P (MAP) 134/96 (109) Pulse Ox 94 O2 Delivery Room Air 2 Blood Pressure Mean: 109 Progress Progress Note : Time: 11:47 Progress Note Rechecked patient after ultrasound and INR testing. Her INR is a little subtherapeutic. We decided she should double up on her Coumadin this evening. Ultrasound shows no evidence of deep venous thrombosis. We will start her on the antibiotic that she states has worked for her in the past, cefprozil 500 mg. We will send this prescription to [facility]. I talked to her about return precautions, if she gets a fever or worsening redness worsening pain she needs to come back to the emergency department. She states she is going to call wound care clinic tomorrow and also follow-up with her primary care physician. All questions have been sought and answered. Patient is stable for discharge. Diagnostic Imaging Diagonstic Imaging: Ultrasound Comments [facility] [place], [place] NAME: SUJEY FELIZ REC#: [id number] PT STATUS: REG ER : 1960 PHYSICIAN: ROSALIND ANDREA MD ADMIT DATE: 10/15/21/ER Signed Date of Exam:10/15/21 US VENOUS LOWER EXT LT EXAMINATION: US Lower Extremity Venous Duplex Left. TECHNIQUE: Multiple real-time grayscale images were obtained over the left lower extremity in various projections. Additional spectral analysis and color Doppler duplex images were also obtained. HISTORY: Swelling COMPARISON: None available. FINDINGS: The left common femoral vein, deep femoral vein, superficial femoral vein and popliteal vein are patent with normal hogue scale and doppler appearance. There is normal respiratory variation and augmentation. IMPRESSION: 1. No DVT of the left lower extremity. Dictated by: Dictated on workstation # [id number] Dict: 10/15/21 1125 Trans: 10/15/[address] [facility] [id number] Interpreted by: JOSE VALLE MD Electronically signed by: JOSE VALLE MD 10/15/21 1127 Departure Impression Primary Impression: Cellulitis of left leg Additional Impressions: Venous insufficiency (chronic) (peripheral) Left leg pain Disposition: 01 HOME, SELF-CARE Condition: Stable Departure-Patient Inst. Decision time for Depature: 11:49 Referrals: LEAH WOLF MD (PCP/Family) Primary Care Physician Patient Instructions: Cellulitis (Skin Infection), Adult ED Add. Discharge Instructions: Take the antibiotics as directed for the next 10 days. You should take extra strength Tylenol, 2 tablets every 6 hours as needed for pain. Keep the leg elevated to help reduce swelling. Double up on your Coumadin dose tonight. Follow-up with your primary care physician tomorrow as well as wound care clinic. Please come back to the emergency department if you develop worsening pain, redness, red streaking up your leg or fever over 100.4. Scripts Cefprozil (Cefprozil) 500 Mg Tablet 500 MG PO BID for 10 Days, #20 TAB Prov: ROSALIND ANDREA MD 10/15/21 Copy Copies To 1: LEAH WOLF MD, KATHRYN M MD Oct 15, 2021 09:20
[2021-10-15 09:51] LABS: INR 1.7 (0.8-1.4); PROTHROMBIN TIME PATIENT 20.5 SEC (12.2-14.7)
[2021-10-15] MEDS ORDERED: RT-ALBUTEROL SULF 2.5 MG/3 ML PRE-MIX VIAL INH ONE (11:15)
--- NOTE | 2021-10-15 11:28 | Diagnostic Imaging Report ---
EXAMINATION: US Lower Extremity Venous Duplex Left. TECHNIQUE: Multiple real-time grayscale images were obtained over the left lower extremity in various projections. Additional spectral analysis and color Doppler duplex images were also obtained. HISTORY: Swelling COMPARISON: None available. FINDINGS: The left common femoral vein, deep femoral vein, superficial femoral vein and popliteal vein are patent with normal hogue scale and doppler appearance. There is normal respiratory variation and augmentation. IMPRESSION: 1. No DVT of the left lower extremity. Dictated by: Dictated on workstation # [id number]
[2021-10-15] MEDS ORDERED: CEFP500T4 PO (11:51)
[2021-10-15 12:14] VITALS: BP 113/83
== END 2021-10-15 12:14 | disposition home or self-care (01) ==
LOC: EDUNIT# 08:23 → ER 08:25
DX: I87.2 Venous insufficiency (chronic) (peripheral) (principal); L03.116 Cellulitis of left lower limb; J44.9 Chronic obstructive pulmonary disease, unspecified; Z99.81 Dependence on supplemental oxygen; Z87.891 Personal history of nicotine dependence; Z86.718 Personal history of other venous thrombosis and embolism; Z79.01 Long term (current) use of anticoagulants; Z91.14 Patient's other noncompliance with medication regimen
CPT/HCPCS: 36415; 85610

== ENCOUNTER → 2021-10-17 | Outpatient (CLI) | payer MEDICAID ==
[~2021-10-17] MED LIST changes: +ALB0.5V INH; +POLY17PO6 PO
== END ==
LOC: WOUNDCARE 08:59
PROVIDERS: ATTEND Family Medicine
DX: L97.222 Non-pressure chronic ulcer of left calf with fat layer exposed (principal); L03.116 Cellulitis of left lower limb; I87.332 Chronic venous hypertension (idiopathic) with ulcer and inflammation of left lower extremity; I89.0 Lymphedema, not elsewhere classified; E11.622 Type 2 diabetes mellitus with other skin ulcer; E66.01 Morbid (severe) obesity due to excess calories; Z79.52 Long term (current) use of systemic steroids
CPT/HCPCS: 97597

== ENCOUNTER 2021-10-20 09:20 | Inpatient (IN) | payer MEDICAID ==
[~2021-10-20] VITALS: Ht 165.1 cm; Wt 105.6 kg
[~2021-10-20 09:20] MED LIST changes: -ALB0.5V INH; -BALO40TA PO; +BALO40TA4 PO; -POLY17PO6 PO
--- NOTE | 2021-10-20 09:51 | ED Lower Extremity ---
General Chief Complaint: Lower Extremity Stated Complaint: SOA - SORE ON LEFT LEG Nursing Triage Note: PT ARRIVAL TO ER WITH COMPLAINTS OF SOA FOR A WHILE THAT HAS SEEMED TO WORSEN THE LAST 3 DAYS. PT STATES THAT SHE WAS SEEN SATURDAY HERE FOR SAME COMPLAINT. PT ALSO COMPLAINS OF LEFT LEG WOUND THAT IS WORSENING. Source: patient Exam Limitations: no limitations History of Present Illness Date Seen by Provider: Oct 20, 2021 Time Seen by Provider: 09:35 Initial Comments Patient is a 61-year-old female who presents to the emergency department today with a chief complaint of worsening left lower extremity infection. I saw the patient on 15 October, we put her on cefprozil 500 mg. She was not able to fill it on Saturday when she went to wound care. At that point Dr. Kerr marked the area of erythema and tenderness and swelling and it has continued to worsen. The patient thinks that she is developing more open sores and she has had increasing pain as well as drainage. No reported fevers. She has had increasing shortness of breath, she does have a history of COPD. She is on chronic oxygen for her COPD. She states she has been taking the medications as directed. No chest pain. Occasional cough. No nausea vomiting or diarrhea. No urinary complaints. We did do a left lower extremity DVT ultrasound on the which was negative for blood clot. She has a history of DVT. All other review of systems reviewed and negative except as stated Onset: last week Severity: moderate Pain/Injury Location: left leg Allergies and Home Medications Allergies Coded Allergies: aspirin (Verified Allergy, Severe, ANAPHYLAXIS, 03/03/19) ibuprofen (Verified Allergy, Severe, ANAPHYLAXIS, 03/03/19) ketorolac (Verified Allergy, Severe, ANAPHYLAXIS, 03/03/19) tetanus and diphtheria toxoids (Unverified Allergy, Severe, ANAPHYLAXIS, 03/03/19) aloe (Verified Allergy, Mild, RASH, 03/03/19) latex (Verified Allergy, Mild, RASH, 03/03/19) OCCASIONALLY IS IRRITATING SKIN scopolamine (Verified Allergy, Mild, 03/03/19) iodine (Verified Adverse Reaction, Unknown, 03/03/19) Patient states she got dizzy, diaphoretic and saw stars. Uncoded Allergies: ALOE VERA (Allergy, Unknown, 12/23/05) SILK SUTURES (Adverse Reaction, Unknown, BODY REJECTS SUTURES, 10/07/13) Patient Home Medication List Home Medication List Reviewed: Yes Albuterol Sulfate (Proair Hfa) 8.5 Gm Hfa.aer.ad, 2 PUFF IH Q4H PRN for SHORTNESS OF BREATH, (Reported) Entered as Reported by: YOSSI NELSON on 08/10/15 1057 Albuterol Sulfate (Albuterol Sulfate) 2.5 Mg/3 Ml Vial.neb, 2.5 MG NEB TID, (Reported) Entered as Reported by: YOSSI NELSON on 05/28/19 0952 Alprazolam (Alprazolam) 1 Mg Tablet, 1 MG PO BID PRN for ANXIETY, (Reported) Entered as Reported by: JESÚS PHILLIPS on 03/07/15 1623 Ascorbic Acid (Vitamin C) 1,000 Mg Tablet, 1,000 MG PO DAILY, (Reported) Entered as Reported by: SHAMIR SALAZAR on 06/13/21 1034 Calcium Carbonate/Vitamin D3 (Calcium 600 + Vit D 200 Tablet) 1 Each Tablet, 1 EACH PO BID, (Reported) Entered as Reported by: SHAMIR SALAZAR on 06/13/21 1034 Cefprozil (Cefprozil) 500 Mg Tablet, 500 MG PO BID Prescribed by: ROSALIND ANDREA on 10/15/21 1151 Cholecalciferol (Vitamin D3) (Vitamin D3) 25 Mcg Capsule, 25 MCG PO DAILY, (Reported) Entered as Reported by: SHAMIR SALAZAR on 06/13/21 1034 Furosemide (Furosemide) 40 Mg Tablet, 40 MG PO DAILY, (Reported) Entered as Reported by: YOSSI NELSON on 03/03/19 1340 Hydrocodone/Acetaminophen (Hydrocodone-Acetamin 10-325 mg) 1 Each Tablet, 1 EACH PO Q6H PRN for PAIN-MODERATE (5-7), (Reported) Entered as Reported by: SHAMIR SALAZAR on 06/13/21 1034 Hyoscyamine Sulfate (Hyoscyamine Sulfate) 0.125 Mg Tab.subl, 0.125 MG SL Q4H PRN for GI SPASMS, (Reported) Entered as Reported by: SHAMIR SALAZAR on 06/13/21 1034 Ipratropium [place] (Ipratropium [place]) 0.2 Mg/1 Ml Solution, 1 VIAL NEB TID, (Reported) Entered as Reported by: JESÚS PHILLIPS on 03/07/15 1640 Loratadine (Loratadine) 10 Mg Tablet, 10 MG PO DAILY, (Reported) Entered as Reported by: JESÚS PHILLIPS on 03/07/15 1623 Montelukast Sodium (Montelukast Sodium) 10 Mg Tablet, 10 MG PO HS, (Reported) Entered as Reported by: MELISSA MONTERO on 05/18/17 1103 Pantoprazole Sodium (Pantoprazole Sodium) 40 Mg Tablet.dr, 40 MG PO DAILY, (Reported) Entered as Reported by: JESÚS PHILLIPS on 03/07/15 1623 Polyethylene Glycol 3350 (Polyethylene Glycol 3350) 17 Gram Powd.pack, 17 GM PO HS Prescribed by: LEAH WOLF on 09/05/21 1626 Potassium Chloride (K-Tab ER) 10 Meq Tablet.er, 20 MEQ PO BID, (Reported) Entered as Reported by: YOSSI NELSON on 05/28/19 0952 Prednisone (Prednisone) 10 Mg Tab, 10 MG PO DAILY, (Reported) Entered as Reported by: SHAMIR SALAZAR on 06/13/21 1034 Warfarin Sodium (Jantoven) 4 Mg Tablet, 4 MG PO Q48H, (Reported) Entered as Reported by: YOSSI NELSON on 05/28/19 0952 Warfarin Sodium (Jantoven) 5 Mg Tablet, 5 MG PO Q48H, (Reported) Entered as Reported by: SHAMIR SALAZAR on 07/20/19 1602 Review of Systems Constitutional: see HPI EENTM: nose congestion Respiratory: cough, dyspnea on exertion, short of breath Cardiovascular: no symptoms reported Gastrointestinal: no symptoms reported 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: no symptoms reported Musculoskeletal: no symptoms reported Skin: other (erythema and wounds to the LLE) Psychiatric/Neurological: Anxiety All Other Systems Reviewed Negative Unless Noted: Yes Past Cxmhrjo-Ytwmni-Jdrmqt Hx Patient Social History Tobacco Use?: No Use of E-Cig and/or Vaping dev: No Substance use?: No Alcohol Use?: No Pt feels they are or have been: No Immunizations Up To Date Tetanus Booster (TDap): Unknown PED Vaccines UTD: No Influenza Vaccine Up-to-Date: No; Not Current Seasonal Allergies Seasonal Allergies: Yes Past Medical History Surgery/Hospitalization HX: Heart cath, hysterectomy, knee scope, ablasion on both knees, hernia reapir, copd, chf, asthma Surgeries: Yes (C/S X2, KNEE SCOPE, SHOULDER SCOPE, d&C, BILAT ULNAR NERVE, VENA CAVA FILTE) Abdominal, Adenoidectomy, Section, Gallbladder, Hysterectomy, Orthopedic, Tonsillectomy, Tubal Ligation, Vascular Surgery Respiratory: Yes (O2 AT HS 2-3L/NC AND PRN--NOCTURNAL HYPOXIA; ) Asthma, Pneumonia, Chronic Bronchitis, Pulmonary Embolism, COPD Currently Using CPAP: No Currently Using BIPAP: No Cardiac: Yes (MULTIPLE DVT'S AND P.E.'S ) Chronic Edema/Swelling, Deep Vein Thrombosis, High Cholesterol, Hypertension, Peripheral Vascular Neurological: Yes Neuropathy 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 Disorders: 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, 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 Sexually Transmitted Disease: No HIV/AIDS: No 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: Yes Kidney Infection, Bladder Infection, Kidney Stones Gastrointestinal: Yes (MULTIPLE HERNIA REPAIRS; MULTIPLE EGD'S /COLONOSCOPIES/POLYPECTOMIES) Abdominal Hernia, Gastroesophageal Reflux, Chronic Constipation, Chronic Diarrhea, Hepatitis, Polyps, Hiatal Hernia, Irritable Bowel Musculoskeletal: Yes (MULTIPLE ORTHO SURGERIES) Arthritis Endocrine: Yes ("PRE-DIABETIC" ) HEENT: Yes (NASAL POLYPS REMOVED) Cataract Loss of Vision: Denies Hearing Impairment: Denies Cancer: No Did You Recieve Any Treatments: No Psychosocial: Yes Anxiety Integumentary: Yes (CHRONIC VENOUS STASIS DERMATITIS AND ULCERS. CELLULTITIS OF LEGS;TATTOOS ) Blood Disorders: Yes (DVT'S/PE'S; PROBABLE PROTEIN C DEFICIENCY) Adverse Reaction/Blood Tranf: No (HAS HAD BLOOD WITH NO PROBLEMS) Family Medical History Alcoholism Alcoholism Arthritis Asthma 19 MOTHER Cancer G8 BROTHER G8 SISTER Cancer of colon Cancer of mouth Cardiovascular disease Cataract Cataracts Chest pain Colon cancer Completed stroke Diabetes mellitus Family history: Allergy Family history: Arthritis Family history: Asthma Family history: Cardiovascular disease Family history: Coronary thrombosis Family history: Diabetes mellitus G8 BROTHER G8 SISTER Family history: Gastrointestinal disease Family history: Hypertension Family history: Thyroid disorder Headache Hearing loss Heart disease 19 MOTHER History of - anemia History of - respiratory disease Hypercholesterolemia Hypercholesterolemia Hypertension 19 FATHER Infertile Malignant neoplasm of lung Myocardial infarction Myocardial infarction Psychotic disorder Respiratory disorder Stroke No Family History of: AIDS Abdominal aortic aneurysm Abdominal aortic aneurysm [place]'s disease [place]'s disease Alzheimer's disease Aphasia Aphasia Congenital disease Congenital heart disease Congenital heart disease Congestive heart failure Coronary thrombosis Cystic fibrosis Cystic fibrosis Deafness or hearing loss Dementia Dementia Drug abuse Dysphagia Dysphasia Family history: Alzheimer's disease Family history: Breast disease Family history: Glaucoma Family history: Osteoporosis Fibrocystic disease of breast Gastroenteritis Glaucoma Headache disorder Hereditary disease History of - disorder History of drug abuse Human immunodeficiency virus (HIV) seropositivity Infertility Kidney disease Kidney disease Neoplasm Not obtainable due to adoption Osteoporosis Parkinson's disease Parkinson's disease Prostate cancer Psychosocial problem Seizure disorder Seizure disorder Severe allergy Thyroid disease Tuberculosis Tuberculosis Visual disorder Visual impairment Cancer, COPD, Vascular Disease SOCIAL HISTORY: -ETOH--RARE USE NOW, HISTORY OF HEAVY USE/ABUSE -DRUGS-HX OF IV COCAINE USE -SMOKED 1 PPD, QUIT 2000 PAST SURGICAL HISTORY: -C-SECTIONS 1981, 1985 -SHOULDER SURGERY 2007 -LEFT KNEE SURGERY 2008 -D&C 2008 -HYSTERECTOMY/BILATERAL SALPINGO-OOPHORECTOMY 2008 -VENA CAVA FILTER 2009 -EGD 2010 -VEIN STRIPPING IN LEGS 2012 -BILATERAL ELBOW/ULNAR NERVE SURGERY 2012 -MULTIPLE HERNIA REPAIRS -MULTIPLE EGD'S AND COLONOSCOPIES AND POLYPECTOMIES -TONSILLECTOMY/ADENOIDECTOMY -CHOLECYSTECTOMY -NASAL POLYPS REMOVED -BILATERAL LEG RADIOABLATION 06/2018 ADDITIONAL PAST MEDICAL HISTORY: -MULTIPLE DVT'S AND P.E.'S -CHRONIC VENOUS STASIS ULCERATIONS -LEG CELLULITIS Physical Exam Vital Signs Vital Signs - First Documented Capillary Refill : Less Than 3 Seconds Height, Weight, BMI Height: 5'5.00" Weight: 184lbs. 5.0oz. 83.253806rm; 45.00 BMI Method:Stated General Appearance: WD/WN, no apparent distress HEENT: PERRL/EOMI Neck: full range of motion Cardiovascular: regular rate, rhythm Progress/Results/Core Measures Results/Orders Lab Results Laboratory Tests Test 10/20/21 09:33 10/20/21 09:57 Range/Units White Blood Count 11.8 H 4.3-11.0 10^3/uL Red Blood Count 4.68 3.80-5.11 10^6/uL Hemoglobin 12.8 11.5-16.0 g/dL Hematocrit 41 35-52 % Mean Corpuscular Volume 87 80-99 fL Mean Corpuscular Hemoglobin 27 25-34 pg Mean Corpuscular Hemoglobin Concent 32 32-36 g/dL Red Cell Distribution Width 15.9 H 10.0-14.5 % Platelet Count 338 130-400 10^3/uL Mean Platelet Volume 8.5 L 9.0-12.2 fL Immature Granulocyte % (Auto) 0 % Neutrophils (%) (Auto) 66 42-75 % Lymphocytes (%) (Auto) 23 12-44 % Monocytes (%) (Auto) 7 0-12 % Eosinophils (%) (Auto) 5 0-10 % Basophils (%) (Auto) 0 0-10 % Neutrophils # (Auto) 7.8 1.8-7.8 10^3/uL Lymphocytes # (Auto) 2.7 1.0-4.0 10^3/uL Monocytes # (Auto) 0.8 0.0-1.0 10^3/uL Eosinophils # (Auto) 0.5 H 0.0-0.3 10^3/uL Basophils # (Auto) 0.0 0.0-0.1 10^3/uL Immature Granulocyte # (Auto) 0.0 0.0-0.1 10^3/uL Prothrombin Time 26.5 H 12.2-14.7 SEC INR Comment 2.4 H 0.8-1.4 Activated Partial Thromboplast Time 36 H 24-35 SEC Sodium Level 142 135-145 MMOL/L Potassium Level 3.7 3.6-5.0 MMOL/L Chloride Level 104 98-107 MMOL/L Carbon Dioxide Level 24 21-32 MMOL/L Anion Gap 14 5-14 MMOL/L Blood Urea Nitrogen 10 7-18 MG/DL Creatinine 0.70 0.60-1.30 MG/DL Estimat Glomerular Filtration Rate 97 BUN/Creatinine Ratio 14 Glucose Level 149 H 70-105 MG/DL Calcium Level 9.4 8.5-10.1 MG/DL Corrected Calcium 9.4 8.5-10.1 MG/DL Total Bilirubin 0.4 0.1-1.0 MG/DL Aspartate Amino Transf (AST/SGOT) 14 5-34 U/L Alanine Aminotransferase (ALT/SGPT) 16 0-55 U/L Alkaline Phosphatase 79 40-136 U/L Total Protein 7.7 6.4-8.2 GM/DL Albumin 4.0 3.2-4.5 GM/DL Urine Color ORANGE Urine Clarity CLEAR Urine pH 6.0 5-9 Urine Specific Villalba >=1.030 1.016-1.022 Urine Protein TRACE H NEGATIVE Urine Glucose (UA) NEGATIVE NEGATIVE Urine Ketones NEGATIVE NEGATIVE Urine Nitrite NEGATIVE NEGATIVE Urine Bilirubin NEGATIVE NEGATIVE Urine Urobilinogen 0.2 < = 1.0 MG/DL Urine Leukocyte Esterase NEGATIVE NEGATIVE Urine RBC (Auto) NEGATIVE NEGATIVE Urine RBC RARE /HPF Urine WBC RARE /HPF Urine Squamous Epithelial Cells 5-10 /HPF Urine Crystals PRESENT H /LPF Urine Calcium Oxalate Crystals RARE H /LPF Urine Bacteria TRACE /HPF Urine Casts NONE /LPF Urine Mucus SMALL H /LPF Urine Culture Indicated CULTURE PENDING Lactic Acid Level 2.79 *H 0.50-2.00 MMOL/L My Orders Orders - ROSALIND ANDREA MD Cbc With Automated Diff (10/20/21 09:46) Comprehensive Metabolic Panel (10/20/21 09:46) Blood Culture (10/20/21 09:46) Sputum Culture (10/20/21 09:46) Urinalysis (10/20/21:46) Urine Culture (10/20/21 09:46) Protime With Inr (10/20/21 09:46) Partial Thromboplastin Time (10/20/21 09:46) Chest 1 View, Ap/Pa Only (10/20/21 09:46) Ed Iv/Invasive Line Start (10/20/21 09:46) Ed Iv/Invasive Line Start (10/20/21 09:46) Vital Signs Adult Sepsis Patie Q15M (10/20/21 09:46) O2 (10/20/21 09:46) Remove Rings In Anticipation O (10/20/21 09:46) Lactic Acid Analyzer (10/20/21 09:46) Hydrocodone/Apap 7.5/325 Tab (Lortab 7. (10/20/21 10:00) Wound Culture (10/20/21 09:46) Albuterol Pre-Mix Nebs (Rt) (Proventil (10/20/21 10:00) Ipratropium 0.02% Neb Solution (Atrovent (10/20/21 10:00) Svn Small Volume Nebulizer (10/20/21 09:48) Svn Small Volume Nebulizer (10/20/21 09:48) Albuterol/Ipra Inhalation Soln (Duoneb I (10/20/21 09:57) Ondansetron Injection (Zofran Injectio (10/20/21 11:15) Medications Given in ED Current Medications Medications Dose Ordered Sig/Nahomi Route Start Time Stop Time Status Last Admin Dose Admin Albuterol/ Ipratropium 3 ml STK-MED ONCE .ROUTE 10/20/21 09:57 10/20/21 09:59 DC 10/20/21 10:01 3 ML Ondansetron HCl 4 mg ONCE ONCE IVP 10/20/21 11:15 10/20/21 11:16 DC 10/20/21 11:15 4 MG Vital Signs/I&O 10/20/21 10/20/21 10/20/21 09:39 09:39 10:03 Temp 36.4 Pulse 127 Resp 24 B/P (MAP) 132/105 (114) Pulse Ox 93 95 O2 Delivery Nasal Cannula Nasal Cannula Nasal Cannula O2 Flow Rate 3.00 3.00 2.00 Blood Pressure Mean: 114 Progress Progress Note : Time: 11:37 Progress Note Discussed with Dr. Wolf, will admit to the hospital for full inpatient, he would like Danielle, will get this started with RT protocol and he will see her this weekend in the hospital. Departure Communication (Admissions) Time/Spoke to Admitting Phy: 11:[address] Wolf - admit full, danielle Impression Primary Impression: Cellulitis of left leg Additional Impression: COPD (chronic obstructive pulmonary disease) Qualified Codes: J44.9 - Chronic obstructive pulmonary disease, unspecified Disposition: ADMITTED INPATIENT Condition: Stable Admissions Decision to Admit Reason: Admit from ER (General) Decision to Admit/Date: Oct 20, 2021 Time/Decision to Admit Time: 11:37 Departure-Patient Inst. Referrals: LEAH WOLF MD (PCP/Family) Primary Care Physician ROSALIND ANDREA MD Oct 20, 2021 09:51
[2021-10-20 09:56] LABS: BASOPHILS % (AUTO) 0 % (0-10); EOSINOPHILS # (AUTO) 0.5 10^3/uL (0.0-0.3); EOSINOPHILS % (AUTO) 5 % (0-10); HEMATOCRIT 41 % (35-52); HEMOGLOBIN 12.8 g/dL (11.5-16.0); LYMPHOCYTES # (AUTO) 2.7 10^3/uL (1.0-4.0); LYMPHOCYTES % (AUTO) 23 % (12-44); MEAN CORPUSCULAR HEMOGLOBIN 27 pg (25-34); MEAN CORPUSCULAR HGB CONC 32 g/dL (32-36); MEAN CORPUSCULAR VOLUME 87 fL (80-99); MEAN PLATELET VOLUME 8.5 fL (9.0-12.2); MONOCYTES # (AUTO) 0.8 10^3/uL (0.0-1.0); MONOCYTES % (AUTO) 7 % (0-12); NEUTROPHILS # (AUTO) 7.8 10^3/uL (1.8-7.8); NEUTROPHILS % (AUTO) 66 % (42-75); PLATELET COUNT 338 10^3/uL (130-400); WHITE BLOOD COUNT 11.8 10^3/uL (4.3-11.0)
[2021-10-20] MEDS ORDERED: RT-ALBUTEROL/IPRATROPIUM 3 ML (DUONEB) VIAL ONE (09:57)
[2021-10-20 09:58] LABS: POTASSIUM 3.7 MMOL/L (3.6-5.0)
[2021-10-20 09:59] LABS: CALCIUM 9.4 MG/DL (8.5-10.1)
[2021-10-20] MEDS ORDERED: HYDROcodone/APAP 7.5 MG/325 MG (LORTAB, LORCET PLUS) TABLET PO ONE (10:00)
[2021-10-20] MEDS ORDERED: RT-IPRATROPIUM (ATROVENT) 0.5MG/2.5ML AMP IH ONE (10:00)
[2021-10-20] MEDS ORDERED: RT-ALBUTEROL SULF 2.5 MG/3 ML PRE-MIX VIAL INH ONE (10:00)
[2021-10-20 10:01] LABS: INR 2.4 (0.8-1.4); PROTHROMBIN TIME PATIENT 26.5 SEC (12.2-14.7); TOTAL PROTEIN 7.7 GM/DL (6.4-8.2)
[2021-10-20 10:02] LABS: BILIRUBIN,TOTAL 0.4 MG/DL (0.1-1.0)
[2021-10-20 10:04] LABS: CREATININE SERUM 0.7 MG/DL (0.60-1.30)
[2021-10-20 10:08] LABS: BILIRUBIN,URINE NEGATIVE (NEGATIVE); CLARITY,URINE CLEAR; COLOR,URINE ORANGE; GLUCOSE, URINE (UA) NEGATIVE (NEGATIVE); KETONES,URINE NEGATIVE (NEGATIVE); LEUKOCYTE ESTERASE ,URINE NEGATIVE (NEGATIVE); NITRITE,URINE NEGATIVE (NEGATIVE); PROTEIN,URINE TRACE (NEGATIVE)
[2021-10-20 10:16] LABS: BACTERIA,URINE TRACE /HPF; CALCIUM OXALATE CRYSTALS,UR RARE /LPF; RBC,URINE RARE /HPF; WBC,URINE RARE /HPF
--- NOTE | 2021-10-20 10:23 | Diagnostic Imaging Report ---
EXAMINATION: Chest 1 view HISTORY: left leg infection COMPARISON: 08/31/2021 FINDINGS: Heart size and pulmonary vasculature are normal. The lungs are clear without consolidation, pleural effusion, or pneumothorax. The osseous structures are intact. IMPRESSION: 1. No acute radiographic abnormality in the chest. Dictated by: Dictated on workstation # [id number]
[2021-10-20] MEDS ORDERED: ONDANSETRON 4 MG/2 ML (SDV) Z0FRAN IVP ONE (11:15)
[2021-10-20] MEDS ORDERED: cefTRIAXone 1 GM PRE-MIX 50 ML IV ONE (11:45)
[2021-10-20] MEDS ORDERED: CATHETER FLUSH 10 ML SYR IVP PRN (13:30)
[2021-10-20] MEDS ORDERED: ALPRAZolam 1 MG (XANAX) TAB PO PRN ×2 (13:30→16:45)
[2021-10-20 13:34] VITALS: BP 121/86
[2021-10-20] MEDS ORDERED: RT-ALBUTEROL SULF 2.5 MG/3 ML PRE-MIX VIAL INH PRN ×2 (13:45→16:45)
[2021-10-20 14:02] VITALS: BP 131/86
[2021-10-20] MEDS ORDERED: POLY17PO6 PO ×2 (14:08)
[2021-10-20] MEDS ORDERED: CEFP500T4 PO ×2 (14:08)
[2021-10-20] MEDS ORDERED: PROM25TA14 PO ×2 (14:08)
[2021-10-20] MEDS ORDERED: ALB0.5V INH ×2 (14:11)
[2021-10-20] MEDS: RT-ALBUTEROL/IPRATROPIUM 3 ML (DUONEB) VIAL INH SCH ×3 (14:17→21:19)
[2021-10-20] MEDS: CATHETER FLUSH 10 ML SYR IVP SCH ×2 (14:24→20:13)
[2021-10-20 15:33] VITALS: BP 109/68
--- NOTE | 2021-10-20 16:41 | History & Physicial ---
History of Present Illness History of Present Illness Reason for visit/HPI Karie is a 61-year-old female who was in today through the emergency department after worsening infection of her left leg. She has known poor peripheral vascular disease evaluate about where the left. She has been seen by wound care and treated there as well. Is currently on generic Cefzil 500 mg daily and started this about 2 days ago. She has not seen a huge difference or improvement. Her skin is marked by wound care doctor and the local erythema has went past the marking. Along with her having intense pain she decided to come to the emergency department she has had drainage of yellowish pus from at least 3 different sites. He has had lower extremity Doppler to exclude DVT and has been done. 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 Her COPD is status quo at this time. Date of Admission Oct 20, 2021 at 11:28 Date Seen by a Provider: Oct 20, 2021 Time Seen by a Provider: 14:45 I consulted on this patient on 10/20/21 16:36 Attending Physician Jay Wolf MD Admitting Physician Admitting Physician: Jay Wolf MD Attending Physician: Jay Wolf MD Consult Allergies and Home Medications Allergies Coded Allergies: aspirin (Verified Allergy, Severe, ANAPHYLAXIS, 03/03/19) ibuprofen (Verified Allergy, Severe, ANAPHYLAXIS, 03/03/19) ketorolac (Verified Allergy, Severe, ANAPHYLAXIS, 03/03/19) tetanus and diphtheria toxoids (Unverified Allergy, Severe, ANAPHYLAXIS, 03/03/19) aloe (Verified Allergy, Mild, RASH, 03/03/19) latex (Verified Allergy, Mild, RASH, 03/03/19) OCCASIONALLY IS IRRITATING SKIN scopolamine (Verified Allergy, Mild, 03/03/19) iodine (Verified Adverse Reaction, Unknown, 03/03/19) Patient states she got dizzy, diaphoretic and saw stars. Uncoded Allergies: ALOE VERA (Allergy, Unknown, 12/23/05) SILK SUTURES (Adverse Reaction, Unknown, BODY REJECTS SUTURES, 10/07/13) Patient Home Medication List Home Medication List Reviewed: Yes Albuterol Sulfate (Proair Hfa) 8.5 Gm Hfa.aer.ad, 2 PUFF IH Q4H PRN for SHORTNESS OF BREATH, (Reported) Entered as Reported by: YOSSI NELSON on 08/10/15 1057 Last Action: Reviewed Albuterol Sulfate (Albuterol Sulfate) 2.5 Mg/3 Ml Vial.neb, 2.5 MG NEB TID, (Reported) Entered as Reported by: YOSSI NELSON on 05/28/19 0952 Last Action: Reviewed Albuterol Sulfate (Albuterol Sulfate) 2.5 Mg/0.5 Ml Vial.neb, 2.5 MG INH EVERY 2 HOURS PRN for SHORTNESS OF BREATH, (Reported) Entered as Reported by: SHAMIR SALAZAR on 10/20/21 1411 Last Action: Reviewed Alprazolam (Alprazolam) 1 Mg Tablet, 1 MG PO BID PRN for ANXIETY, (Reported) Entered as Reported by: JESÚS PHILLIPS on 03/07/15 1623 Last Action: Reviewed Ascorbic Acid (Vitamin C) 1,000 Mg Tablet, 1,000 MG PO DAILY, (Reported) Entered as Reported by: SHAMIR SALAZAR on 06/13/21 1034 Last Action: Reviewed Calcium Carbonate/Vitamin D3 (Calcium 600 + Vit D 200 Tablet) 1 Each Tablet, 1 EACH PO BID, (Reported) Entered as Reported by: SHAMIR SALAZAR on 06/13/21 1034 Last Action: Reviewed Cefprozil (Cefprozil) 500 Mg Tablet, 500 MG PO BID, (Reported) Entered as Reported by: SHAMIR SALAZAR on 10/20/21 1408 Last Action: Reviewed Cholecalciferol (Vitamin D3) (Vitamin D3) 25 Mcg Capsule, 25 MCG PO DAILY, (Reported) Entered as Reported by: SHAMIR SALAZAR on 06/13/21 1034 Last Action: Reviewed Furosemide (Furosemide) 40 Mg Tablet, 40 MG PO DAILY, (Reported) Entered as Reported by: YOSSI NELSON on 03/03/19 1340 Last Action: Reviewed Hydrocodone/Acetaminophen (Hydrocodone-Acetamin 10-325 mg) 1 Each Tablet, 1 EACH PO Q6H PRN for PAIN-MODERATE (5-7), (Reported) Entered as Reported by: SHAMIR SALAZAR on 06/13/21 1034 Last Action: Reviewed Hyoscyamine Sulfate (Hyoscyamine Sulfate) 0.125 Mg Tab.subl, 0.125 MG SL Q4H PRN for GI SPASMS, (Reported) Entered as Reported by: SHAMIR SALAZAR on 06/13/21 1034 Last Action: Reviewed Ipratropium [place] (Ipratropium [place]) 0.2 Mg/1 Ml Solution, 1 VIAL NEB TID, (Reported) Entered as Reported by: JESÚS PHILLIPS on 03/07/15 1640 Last Action: Reviewed Loratadine (Loratadine) 10 Mg Tablet, 10 MG PO DAILY, (Reported) Entered as Reported by: JESÚS PHILLIPS on 03/07/15 162 Last Action: Reviewed Montelukast Sodium (Montelukast Sodium) 10 Mg Tablet, 10 MG PO HS, (Reported) Entered as Reported by: MELISSA MONTERO on 05/18/17 1103 Last Action: Reviewed Pantoprazole Sodium (Pantoprazole Sodium) 40 Mg Tablet.dr, 40 MG PO DAILY, (Reported) Entered as Reported by: JESÚS PHILLIPS on 03/07/15 162 Last Action: Reviewed Polyethylene Glycol 3350 (Miralax) 17 Gram Powd.pack, 17 GM PO DAILY PRN for CONSTIPATION-2ND LINE, (Reported) Entered as Reported by: SHAMIR SALAZAR on 10/20/211407 Last Action: Reviewed Potassium Chloride (K-Tab ER) 10 Meq Tablet.er, 20 MEQ PO BID, (Reported) Entered as Reported by: YOSSI NELSON on 05/28/19951 Last Action: Reviewed Prednisone (Prednisone) 10 Mg Tab, 10 MG PO DAILY, (Reported) Entered as Reported by: SHAMIR SALAZAR on 06/13/21 1034 Last Action: Reviewed Promethazine HCl (Promethazine Tablet) 25 Mg Tablet, 25 MG PO Q8H PRN for NAUSEA/VOMITING-1ST LINE, (Reported) Entered as Reported by: SHAMIR SALAZAR on 10/20/21 140 Last Action: Reviewed Warfarin Sodium (Jantoven) 4 Mg Tablet, 4 MG PO NORTH,,TH,SAT @1800, (Reported) Entered as Reported by: YOSSI NELSON on 05/28/19951 Last Action: Reviewed Warfarin Sodium ([place]) 5 Mg Tablet, 5 MG PO MO,WE,FR @1800, (Reported) Entered as Reported by: HSAMIR SALAZAR on 07/20/19 1602 Last Action: Reviewed Discontinued Medications Cefprozil (Cefprozil) 500 Mg Tablet, 500 MG PO BID Discontinued Reason: Duplicate Order Prescribed by: ROSALIND ANDREA on 10/15/21 1151 Last Action: Discontinued Polyethylene Glycol 3350 (Polyethylene Glycol 3350) 17 Gram Powd.pack, 17 GM PO HS Discontinued Reason: No Longer Taking Prescribed by: JAY WOLF on 09/05/21 1626 Last Action: Discontinued Past Rllwpjp-[id number]-Mlstpv Hx Patient Social History Marrital Status: single Number of Children: 2 Drug of Choice: + IV COCAINE USE Smoking Status: Former Smoker Former Smoker, Quit: Nov 17, 2000 2nd Hand Smoke Exposure: No Recent Hopitalizations: No (05/21/19 knee sx) Have you traveled recently?: No Alcohol Use?: No Pt feels they are or have been: No Immunizations Up To Date Tetanus Booster (TDap): Unknown Pediatric: No Date of Pneumonia Vaccine: Sep 05, 2016 Date of Influenza Vaccine: Mar 11, 2012 Seasonal Allergies Seasonal Allergies: Yes Surgeries Yes (C/S X2, KNEE SCOPE, SHOULDER SCOPE, d&C, BILAT ULNAR NERVE, VENA CAVA FILTE) Abdominal, Adenoidectomy, Section, Gallbladder, Hysterectomy, Orthopedic, Tonsillectomy, Tubal Ligation, Vascular Surgery Respiratory Yes (O2 AT HS 2-3L/NC AND PRN--NOCTURNAL HYPOXIA; ) Currently Using CPAP: No Currently Using BIPAP: No Cardiovascular Yes (MULTIPLE DVT'S AND P.E.'S ) Chronic Edema/Swelling, Deep Vein Thrombosis, High Cholesterol, Hypertension, Peripheral Vascular Neurological Yes Neuropathy 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 System Hx 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 Disorders: Yes Sexually Transmitted Disease: No HIV/AIDS: No 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, Menopausal 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 Yes Kidney Infection, Bladder Infection, Kidney Stones Gastrointestinal Yes (MULTIPLE HERNIA REPAIRS; MULTIPLE EGD'S /COLONOSCOPIES/POLYPECTOMIES) Abdominal Hernia, Gastroesophageal Reflux, Chronic Constipation, Chronic Diarrhea, Hepatitis, Polyps, Hiatal Hernia, Irritable Bowel Musculoskeletal Yes (MULTIPLE ORTHO SURGERIES) Arthritis Endocrine History of Endocrine Disorders: Yes ("PRE-DIABETIC" ) HEENT History of HEENT Disorders: Yes (NASAL POLYPS REMOVED) HEENT Disorders: Cataract Loss of Vision: Denies Hearing Impairment: Denies Cancer No Did You Recieve Any Treatments: No Psychosocial History of Psychiatric Problem: Yes Behavioral Health Disorders: Anxiety Integumentary History of Skin or Integumenta: Yes (CHRONIC VENOUS STASIS DERMATITIS AND ULCERS. CELLULTITIS OF LEGS;TATTOOS ) Blood Transfusions History of Blood Disorders: Yes (DVT'S/PE'S; PROBABLE PROTEIN C DEFICIENCY) Adverse Reaction to a Blood Tr: No (HAS HAD BLOOD WITH NO PROBLEMS) Family Medical History Significant Family History: Cancer, COPD, Vascular Disease Other Significan Family Hx: SOCIAL HISTORY: -ETOH--RARE USE NOW, HISTORY OF HEAVY USE/ABUSE -DRUGS-HX OF IV COCAINE USE -SMOKED 1 PPD, QUIT 2000 PAST SURGICAL HISTORY: -C-SECTIONS 1981, 1985 -SHOULDER SURGERY 2007 -LEFT KNEE SURGERY 2008 -D&C 2008 -HYSTERECTOMY/BILATERAL SALPINGO-OOPHORECTOMY 2008 -VENA CAVA FILTER 2009 -EGD 2010 -VEIN STRIPPING IN LEGS 2012 -BILATERAL ELBOW/ULNAR NERVE SURGERY 2012 -MULTIPLE HERNIA REPAIRS -MULTIPLE EGD'S AND COLONOSCOPIES AND POLYPECTOMIES -TONSILLECTOMY/ADENOIDECTOMY -CHOLECYSTECTOMY -NASAL POLYPS REMOVED -BILATERAL LEG RADIOABLATION 06/2018 ADDITIONAL PAST MEDICAL HISTORY: -MULTIPLE DVT'S AND P.E.'S -CHRONIC VENOUS STASIS ULCERATIONS -LEG CELLULITIS Family Hx: Alcoholism Alcoholism Arthritis Asthma 19 MOTHER Cancer G8 BROTHER G8 SISTER Cancer of colon Cancer of mouth Cardiovascular disease Cataract Cataracts Chest pain Colon cancer Completed stroke Diabetes mellitus Family history: Allergy Family history: Arthritis Family history: Asthma Family history: Cardiovascular disease Family history: Coronary thrombosis Family history: Diabetes mellitus G8 BROTHER G8 SISTER Family history: Gastrointestinal disease Family history: Hypertension Family history: Thyroid disorder Headache Hearing loss Heart disease 19 MOTHER History of - anemia History of - respiratory disease Hypercholesterolemia Hypercholesterolemia Hypertension 19 FATHER Infertile Malignant neoplasm of lung Myocardial infarction Myocardial infarction Psychotic disorder Respiratory disorder Stroke No Family History of: AIDS Abdominal aortic aneurysm Abdominal aortic aneurysm Laclede's disease Fernando's disease Alzheimer's disease Aphasia Aphasia Congenital disease Congenital heart disease Congenital heart disease Congestive heart failure Coronary thrombosis Cystic fibrosis Cystic fibrosis Deafness or hearing loss Dementia Dementia Drug abuse Dysphagia Dysphasia Family history: Alzheimer's disease Family history: Breast disease Family history: Glaucoma Family history: Osteoporosis Fibrocystic disease of breast Gastroenteritis Glaucoma Headache disorder Hereditary disease History of - disorder History of drug abuse Human immunodeficiency virus (HIV) seropositivity Infertility Kidney disease Kidney disease Neoplasm Not obtainable due to adoption Osteoporosis Parkinson's disease Parkinson's disease Prostate cancer Psychosocial problem Seizure disorder Seizure disorder Severe allergy Thyroid disease Tuberculosis Tuberculosis Visual disorder Visual impairment Review of Systems Constitutional: see HPI Physical Exam Vital Signs Vital Signs - First Documented 10/20/21 13:34 FiO2 32 Capillary Refill : Less Than 3 Seconds Height, Weight, BMI Height: 5'5.00" Weight: 184lbs. 5.0oz. 83.236961fr; 45.85 BMI Method:Stated General Appearance: No Apparent Distress, Anxious Eyes: Bilateral Eye Normal Inspection HEENT: Pharynx Normal Neck: Supple Respiratory: Wheezing (Very mild but otherwise clear) Cardiovascular: Regular Rate, Rhythm (And her heart rate is currently at 110) Gastrointestinal: Soft Rectal: Deferred Extremity: Normal Capillary Refill, Inflammation (Apparent to the left lower extremity from knee down), Pedal Edema, Swelling (Bilateral lower extremities left) Neurologic/Psychiatric: Alert, Oriented x3 Assessment/Plan Assessment and Plan 1. Cellulitis left lower extremity -Initiation of IV Rocephin -Consultation with wound care 2. Poor peripheral venous vascular disease or extremities -As above 3. COPDcurrently steroid-dependent -Continue with her current COPD regimen which includes 10 mg prednisone daily. She also has albuterol available. -She is currently being worked up by bad cloth checker Dr. Mckeon in [facility] 4. Hyperglycemia -Monitor with sliding scale Admission Diagnosis 1. Cellulitis left lower extremity 2. Poor peripheral venous vascular disease or extremities 3. COPDcurrently steroid-dependent 4. Hyperglycemia Admission Status: Inpatient Order (span 2 midnights) Reason for Inpatient Admission: She failed outpatient oral antibiotics. She is admitted for further IV antibiotic Rocephin. JAY WOLF MD Oct 20, 2021 16:41
[2021-10-20] MEDS ORDERED: PROMETHAZINE 25 MG (PHENERGAN) TAB PO PRN (16:45)
[2021-10-20] MEDS ORDERED: RT-ALBUTEROL SULF 2.5 MG/3 ML PRE-MIX VIAL IH PRN (16:45)
[2021-10-20] MEDS: KCL 10 MEQ TAB (MICRO K) PO SCH (17:50)
[2021-10-20] MEDS: warFARin 5 MG (COUMADIN) TAB PO SCH (17:50)
[2021-10-20 19:15] VITALS: BP 123/67
[2021-10-20] MEDS: MONTELUKAST 10 MG (SINGULAIR) TAB PO SCH (20:13)
[2021-10-20] MEDS: inSUlin ASPART (NovoLOG) 1 UNIT/0.01 ML (CHARGE PER UNIT) SC SCH (20:34)
[2021-10-20] MEDS ORDERED: RT-IPRATROPIUM (ATROVENT) 0.5MG/2.5ML AMP IH SCH (21:00)
[2021-10-21] VITALS: BP 98/55
[2021-10-21] MEDS: ACETAMINOPHEN 500 MG TAB (TYLENOL) PO PRN ×2 (02:11→15:18)
[2021-10-21] MEDS: RT-ALBUTEROL/IPRATROPIUM 3 ML (DUONEB) VIAL INH SCH ×6 (02:32→23:03)
[2021-10-21 03:41] VITALS: BP 124/62
[2021-10-21 05:58] LABS: BASOPHILS # (AUTO) 0.1 10^3/uL (0.0-0.1); BASOPHILS % (AUTO) 1 % (0-10); EOSINOPHILS # (AUTO) 0.5 10^3/uL (0.0-0.3); EOSINOPHILS % (AUTO) 6 % (0-10); HEMATOCRIT 38 % (35-52); HEMOGLOBIN 11.8 g/dL (11.5-16.0); LYMPHOCYTES # (AUTO) 1.9 10^3/uL (1.0-4.0); LYMPHOCYTES % (AUTO) 23 % (12-44); MEAN CORPUSCULAR HEMOGLOBIN 27 pg (25-34); MEAN CORPUSCULAR HGB CONC 31 g/dL (32-36); MEAN CORPUSCULAR VOLUME 88 fL (80-99); MEAN PLATELET VOLUME 8.7 fL (9.0-12.2); MONOCYTES # (AUTO) 0.7 10^3/uL (0.0-1.0); MONOCYTES % (AUTO) 9 % (0-12); NEUTROPHILS # (AUTO) 5.1 10^3/uL (1.8-7.8); NEUTROPHILS % (AUTO) 62 % (42-75); PLATELET COUNT 320 10^3/uL (130-400); WHITE BLOOD COUNT 8.3 10^3/uL (4.3-11.0)
[2021-10-21 06:22] LABS: INR 2.5 (0.8-1.4); PROTHROMBIN TIME PATIENT 27.9 SEC (12.2-14.7)
[2021-10-21] MEDS: FUROSEMIDE 40 MG (LASIX) TAB PO SCH (06:50)
[2021-10-21] MEDS: CATHETER FLUSH 10 ML SYR IVP SCH ×3 (06:50→19:32)
[2021-10-21] MEDS: inSUlin ASPART (NovoLOG) 1 UNIT/0.01 ML (CHARGE PER UNIT) SC SCH ×4 (06:50→21:30)
[2021-10-21 07:26] VITALS: BP 122/64
--- NOTE | 2021-10-21 08:02 | Progress Note ---
Subjective Date Seen by a Provider: Oct 21, 2021 Time Seen by a Provider: 07:15 Subjective/Events-last exam L leg with yellowing watery drainage overnight. Focused Exam Lactate Level 10/20/21 09:57: Lactic Acid Level 2.79*H 10/20/21 11:55: Lactic Acid Level 2.24*H 10/20/21 13:55: Lactic Acid Level 1.76 Objective Exam Vital Signs Date Time Temp Pulse Resp B/P (MAP) Pulse Ox O2 Delivery O2 Flow Rate FiO2 10/21/21 07:26 36.7 74 18 122/64 (83) 96 Nasal Cannula 2.00 10/21/21 07:20 95 Nasal Cannula 2.50 10/21/21 03:41 36.8 122 21 124/62 (82) 95 Nasal Cannula 2.00 10/21/21 02:32 95 Nasal Cannula 2.00 10/21/21 00:00 36.7 110 18 98/55 (69) 96 Nasal Cannula 2.00 10/20/21 21:19 94 Room Air 10/20/21 20:22 119 10/20/21 20:15 91 Room Air 10/20/21 20:12 119 92 Room Air 10/20/21 19:15 37.2 121 18 123/67 (85) 91 Room Air 10/20/21 19:04 97 Room Air 10/20/21 18:09 Room Air 10/20/21 15:33 37.0 120 18 109/68 (82) 92 Room Air 10/20/21 14:18 94 Room Air 10/20/21 14:02 36.9 127 20 131/86 (101) 93 Room Air 10/20/21 13:34 36.4 112 95 32 10/20/21 12:40 112 22 121/86 95 Nasal Cannula 3.00 10/20/21 10:03 95 Nasal Cannula 2.00 10/20/21 09:39 Nasal Cannula 3.00 10/20/21 09:39 36.4 127 24 132/105 (114) 93 Nasal Cannula 3.00 I & O 10/21/21 07:00 Intake Total 920 ml Output Total 200 ml Balance 720 ml Capillary Refill : Less Than 3 Seconds General Appearance: No Apparent Distress Respiratory: Wheezing (faint) Extremity: Normal Capillary Refill, Swelling (LLE) Results Lab Laboratory Tests 10/20/21 09:33: White Blood Count 11.8H, Red Blood Count 4.68, Hemoglobin 12.8, Hematocrit 41, Mean Corpuscular Volume 87, Mean Corpuscular Hemoglobin 27, Mean Corpuscular Hemoglobin Concent 32, Red Cell Distribution Width 15.9H, Platelet Count 338, Mean Platelet Volume 8.5L, Immature Granulocyte % (Auto) 0, Neutrophils (%) (Auto) 66, Lymphocytes (%) (Auto) 23, Monocytes (%) (Auto) 7, Eosinophils (%) (Auto) 5, Basophils (%) (Auto) 0, Neutrophils # (Auto) 7.8, Lymphocytes # (Auto) 2.7, Monocytes # (Auto) 0.8, Eosinophils # (Auto) 0.5H, Basophils # (Auto) 0.0, Immature Granulocyte # (Auto) 0.0, Prothrombin Time 26.5H, INR Comment 2.4H, Activated Partial Thromboplast Time 36H, Sodium Level 142, Potassium Level 3.7, Chloride Level 104, Carbon Dioxide Level 24, Anion Gap 14, Blood Urea Nitrogen 10, Creatinine 0.70, Estimat Glomerular Filtration Rate 97, BUN/Creatinine Ratio 14, Glucose Level 149H, Calcium Level 9.4, Corrected Calcium 9.4, Total Bilirubin 0.4, Aspartate Amino Transf (AST/SGOT) 14, Alanine Aminotransferase (ALT/SGPT) 16, Alkaline Phosphatase 79, Total Protein 7.7, Albumin 4.0 10/20/21 09:57: Urine Color ORANGE, Urine Clarity CLEAR, Urine pH 6.0, Urine Specific [place] >=1.030, Urine Protein TRACEH, Urine Glucose (UA) NEGATIVE, Urine Ketones NEGATIVE, Urine Nitrite NEGATIVE, Urine Bilirubin NEGATIVE, Urine Urobilinogen 0.2, Urine Leukocyte Esterase NEGATIVE, Urine RBC (Auto) NEGATIVE, Urine RBC RARE, Urine WBC RARE, Urine Squamous Epithelial Cells 5-10, Urine Crystals PRESENTH, Urine Calcium Oxalate Crystals RAREH, Urine Bacteria TRACE, Urine Cast s NONE, Urine Mucus SMALLH, Urine Culture Indicated CULTURE PENDING, Lactic Acid Level 2.79*H 10/20/21 11:55: Lactic Acid Level 2.24*H 10/20/21 13:55: Lactic Acid Level 1.76 10/20/21 15:32: Glucometer 220H 10/20/21 18:26: Glucometer 89 10/20/21 20:30: Glucometer 172H 10/21/21 05:20: Glucometer 136H, White Blood Count 8.3, Red Blood Count 4.36, Hemoglobin 11.8, Hematocrit 38, Mean Corpuscular Volume 88, Mean Corpuscular Hemoglobin 27, Mean Corpuscular Hemoglobin Concent 31L, Red Cell Distribution Width 16.0H, Platelet Count 320, Mean Platelet Volume 8.7L, Immature Granulocyte % (Auto) 0, Neutrophils (%) (Auto) 62, Lymphocytes (%) (Auto) 23, Monocytes (%) (Auto) 9, Eosinophils (%) (Auto) 6, Basophils (%) (Auto) 1, Neutrophils # (Auto) 5.1, Lymphocytes # (Auto) 1.9, Monocytes # (Auto) 0.7, Eosinophils # (Auto) 0.5H, Basophils # (Auto) 0.1, Immature Granulocyte # (Auto) 0.0, Prothrombin Time 27.9H, INR Comment 2.5H Assessment/Plan Assessment/Plan Assess & Plan/Chief Complaint 1. Cellulitis left lower extremity -Initiation of IV Rocephin -Consultation with wound care 10/21 -day 2 Rocephin 2. Poor peripheral venous vascular disease or extremities -As above 3. COPDcurrently steroid-dependent -Continue with her current COPD regimen which includes 10 mg prednisone daily. She also has albuterol available. -She is currently being worked up by order processing manager Dr. Mckeon in [facility] 4. Hyperglycemia -Monitor with sliding scale Clinical Quality Measures Admission Status Admission Dx 1. Cellulitis left lower extremity 2. Poor peripheral venous vascular disease or extremities 3. COPDcurrently steroid-dependent 4. Hyperglycemia LEAH WOLF MD Oct 21, 2021 08:02
[2021-10-21] MEDS ORDERED: LORATADINE (CLARITIN) 10 MG TAB PO SCH (09:00)
[2021-10-21] MEDS ORDERED: FUROSEMIDE 40 MG (LASIX) TAB PO SCH (09:00)
[2021-10-21] MEDS: predniSONE 10 MG TAB PO SCH (10:20)
[2021-10-21] MEDS: KCL 10 MEQ TAB (MICRO K) PO SCH ×2 (10:20→19:14)
[2021-10-21] MEDS: LORATADINE (CLARITIN) 10 MG TAB PO SCH (10:20)
[2021-10-21] MEDS: PANTOPRAZOLE 40 MG (PROTONIX) TAB PO SCH (10:20)
[2021-10-21] MEDS: cefTRIAXone 1 GM PRE-MIX 50 ML IV SCH (10:21)
[2021-10-21] MEDS: polyethylene glycoL POWDER 17 GM (MIRALAX) PACK PO PRN (10:21)
[2021-10-21 11:33] VITALS: BP 107/66
[2021-10-21 16:35] VITALS: BP 121/73
[2021-10-21] MEDS: warFARin 4 MG (COUMADIN) TAB PO SCH (19:16)
[2021-10-21 19:27] VITALS: BP 114/68
[2021-10-21] MEDS: MONTELUKAST 10 MG (SINGULAIR) TAB PO SCH (19:31)
[2021-10-22 00:02] VITALS: BP 95/63
[2021-10-22] MEDS: RT-ALBUTEROL/IPRATROPIUM 3 ML (DUONEB) VIAL INH SCH ×6 (02:34→22:11)
[2021-10-22 03:53] VITALS: BP 136/85
[2021-10-22] MEDS: ONDANSETRON 4 MG/2 ML (SDV) Z0FRAN IVP PRN (04:00)
[2021-10-22] MEDS: ACETAMINOPHEN 500 MG TAB (TYLENOL) PO PRN (04:01)
[2021-10-22] MEDS: FUROSEMIDE 40 MG (LASIX) TAB PO SCH (06:26)
[2021-10-22] MEDS: CATHETER FLUSH 10 ML SYR IVP SCH ×3 (06:26→20:17)
[2021-10-22] MEDS: inSUlin ASPART (NovoLOG) 1 UNIT/0.01 ML (CHARGE PER UNIT) SC SCH ×4 (06:28→20:16)
[2021-10-22] MEDS ORDERED: VANCOMYCIN INJECTION 0.1 MG in NS (IVPB) 250 ML IV SCH (08:15)
--- NOTE | 2021-10-22 08:15 | Progress Note ---
Subjective Date Seen by a Provider: Oct 22, 2021 Time Seen by a Provider: 07:45 Subjective/Events-last exam Drainage persists of the LLE - Leg region. No fevers. Breathing ok. Focused Exam Lactate Level 10/20/21 09:57: Lactic Acid Level 2.79*H 10/20/21 11:55: Lactic Acid Level 2.24*H 10/20/21 13:55: Lactic Acid Level 1.76 Objective Exam Vital Signs Date Time Temp Pulse Resp B/P (MAP) Pulse Ox O2 Delivery O2 Flow Rate FiO2 10/22/21 06:51 97 Nasal Cannula 2.00 10/22/21 03:53 36.8 109 20 136/85 (102) 94 Nasal Cannula 2.00 10/22/21 02:34 97 Nasal Cannula 2.00 10/22/21 00:02 36.6 110 17 95/63 (74) 95 Nasal Cannula 2.00 10/21/21 23:03 98 Nasal Cannula 2.00 10/21/21 19:35 93 Nasal Cannula 2.00 10/21/21 19:27 36.6 121 20 114/68 (83) 93 Nasal Cannula 2.00 10/21/21 19:06 94 Room Air 10/21/21 16:35 37.2 124 20 121/73 (89) 92 Room Air 10/21/21 11:33 36.3 118 18 107/66 (80) 93 Nasal Cannula 2.00 10/21/21 10:47 92 Room Air I & O 10/22/21 07:00 Intake Total 1760 ml Output Total 775 ml Balance 985 ml Capillary Refill : Less Than 3 Seconds General Appearance: No Apparent Distress Respiratory: Lungs Clear (with mild wheeze) Extremity: Other (edema persists. yellowish drainage from L leg lesions) Results Lab Laboratory Tests 10/21/21 09:18: Glucometer 192H 10/21/21 14:53: Glucometer 156H 10/21/21 21:27: Glucometer 106 10/22/21 06:28: Glucometer 117H Microbiology 10/20/21 Blood Culture - Preliminary, Resulted No growth 10/20/21 Gram Stain - Final, Resulted 10/20/21 Wound Culture - Preliminary, Resulted Staphylococcus aureus 10/20/21 Urine Culture - Final, Complete NO GROWTH Assessment/Plan Assessment/Plan Assess & Plan/Chief Complaint 1. Cellulitis left lower extremity -Initiation of IV Rocephin -Consultation with wound care 10/21 -day 2 Rocephin 10/22 -presumptive MRSA add on vanc 2. Poor peripheral venous vascular disease or extremities -As above 3. COPDcurrently steroid-dependent -Continue with her current COPD regimen which includes 10 mg prednisone daily. She also has albuterol available. -She is currently being worked up by horse breaker Dr. Mckeon in [facility] 4. Hyperglycemia -Monitor with sliding scale Clinical Quality Measures Admission Status Admission Dx 1. Cellulitis left lower extremity 2. Poor peripheral venous vascular disease or extremities 3. COPDcurrently steroid-dependent 4. Hyperglycemia LEAH WOLF MD Oct 22, 2021 08:15
[2021-10-22 08:23] VITALS: BP 112/73
[2021-10-22] MEDS: KCL 10 MEQ TAB (MICRO K) PO SCH ×2 (09:17→18:14)
[2021-10-22] MEDS: PANTOPRAZOLE 40 MG (PROTONIX) TAB PO SCH (09:17)
[2021-10-22] MEDS: LORATADINE (CLARITIN) 10 MG TAB PO SCH (09:17)
[2021-10-22] MEDS: predniSONE 10 MG TAB PO SCH (09:17)
[2021-10-22] MEDS: cefTRIAXone 1 GM PRE-MIX 50 ML IV SCH (09:18)
[2021-10-22] MEDS ORDERED: VANCOMYCIN 2000 MG/NS 500 ML IVPB IV NR ×2 (10:00)
[2021-10-22 12:11] VITALS: BP 111/67
[2021-10-22] MEDS: polyethylene glycoL POWDER 17 GM (MIRALAX) PACK PO PRN (14:05)
[2021-10-22 17:00] VITALS: BP 137/74
[2021-10-22] MEDS: VANCOMYCIN 1250 MG/NS 250 ML IVPB IV SCH ×2 (18:14)
[2021-10-22] MEDS: warFARin 4 MG (COUMADIN) TAB PO SCH (18:16)
[2021-10-22 20:11] VITALS: BP 124/73
[2021-10-22] MEDS: MONTELUKAST 10 MG (SINGULAIR) TAB PO SCH (20:17)
[2021-10-23 00:08] VITALS: BP 112/75
[2021-10-23] MEDS: VANCOMYCIN 1250 MG/NS 250 ML IVPB IV SCH ×6 (02:00→17:44)
[2021-10-23] MEDS: CATHETER FLUSH 10 ML SYR IVP SCH ×3 (02:00→21:08)
[2021-10-23] MEDS: ACETAMINOPHEN 500 MG TAB (TYLENOL) PO PRN ×2 (02:05→18:11)
[2021-10-23] MEDS: RT-ALBUTEROL/IPRATROPIUM 3 ML (DUONEB) VIAL INH SCH ×6 (02:16→23:48)
[2021-10-23 04:01] VITALS: BP 108/70
[2021-10-23] MEDS: inSUlin ASPART (NovoLOG) 1 UNIT/0.01 ML (CHARGE PER UNIT) SC SCH ×5 (06:03→20:43)
[2021-10-23] MEDS: FUROSEMIDE 40 MG (LASIX) TAB PO SCH (06:03)
--- NOTE | 2021-10-23 07:03 | Physician Query Clarification ---
PQ-Intro New Diagnosis Admission/Discharge Admission Date: Oct 20, 2021 at 11:28 Discharge Date: Dr. Wolf, The medical record reflects the following clinical scenario: History/Risk Factors: Cellulitis lt lower leg, COPD O2 dependent, HTN w/CHF Clinical Findings: T36.4, P 127, R 24, BP 132/105, Lactic acid 2.79, WBC 11.8 wound growing MRSA Treatment: IV Ceftriaxone Question: What condition best reflects the above clinical scenario? Please document a response in the Progress Noter or Discharge Summary. 1. MRSA Sepsis 2. No sepsis, LT leg cellulitis only 3. Other, with explanation of the clinical findings. 4. Clinically undetermined, no explanation for the clinical findings. PHYSICIAN RESPONSE What condition reflects above: 2 Explanation of clincal finding She has MRSA cellulitis of L leg In responding to this query, please exercise your independent professional judgment. The purpose of this communication is to more accurately reflect the complexity of your patients condition. The fact that a question is asked does not imply that any particular answer is desired or expected. Thank you for your timely response to this clarification. Requestors name: Milo THIS PHYSICIAN QUERY FORM IS A PERMANENT PART OF THE MEDICAL RECORD MILO MUNIZ Oct 23, 2021 07:03 LEAH WOLF MD Oct 24, 2021 22:23
--- NOTE | 2021-10-23 07:28 | Progress Note ---
Subjective Date Seen by a Provider: Oct 23, 2021 Time Seen by a Provider: 07:35 Subjective/Events-last exam Complaining of drainage from the L leg. Yellowish drainage despite vanc being started yesterday. No fevers. Still having pain with regards to the leg. Focused Exam Lactate Level 10/20/21 09:57: Lactic Acid Level 2.79*H 10/20/21 11:55: Lactic Acid Level 2.24*H 10/20/21 13:55: Lactic Acid Level 1.76 Objective Exam Vital Signs Date Time Temp Pulse Resp B/P (MAP) Pulse Ox O2 Delivery O2 Flow Rate FiO2 10/23/21 06:54 94 Nasal Cannula 2.00 10/23/21 04:01 37.0 108 20 108/70 (83) 94 Room Air 10/23/21 02:17 97 Nasal Cannula 2.00 10/23/21 00:08 36.8 108 20 112/75 (87) 95 Room Air 10/22/21 22:11 95 Room Air 10/22/21 20:20 Room Air 10/22/21 20:11 36.9 114 18 124/73 (90) 93 Room Air 10/22/21 18:49 92 Room Air 10/22/21 17:00 37.1 104 20 137/74 (95) 95 Room Air 10/22/21 14:15 94 Room Air 10/22/21 12:11 37.0 123 18 111/67 (82) 92 Nasal Cannula 2.00 10/22/21 11:13 95 Room Air 10/22/21 08:30 Nasal Cannula 2.00 10/22/21 08:23 36.7 107 18 112/73 (86) 95 Nasal Cannula 2.00 I & O 10/23/21 07:00 Intake Total 2490 ml Output Total 800 ml Balance 1690 ml Capillary Refill : Less Than 3 Seconds General Appearance: No Apparent Distress Respiratory: Wheezing (mild) Cardiovascular: Regular Rate, Rhythm Extremity: No Pedal Edema; No Calf Tenderness; Swelling, Other (mild erythema of distal 2/3 of L leg) Results Lab Laboratory Tests 10/22/21 09:27: Glucometer 177H 10/22/21 14:30: Glucometer 195H 10/23/21 05:54: Glucometer 117H Microbiology 10/20/21 Blood Culture - Preliminary, Resulted No growth 10/20/21 Gram Stain - Final, Resulted 10/20/21 Wound Culture - Preliminary, Resulted Staphylococcus aureus 10/20/21 Urine Culture - Final, Complete NO GROWTH Assessment/Plan Assessment/Plan Assess & Plan/Chief Complaint 1. Cellulitis left lower extremity -Initiation of IV Rocephin -Consultation with wound care 10/21 -day 2 Rocephin 10/22 -presumptive MRSA add on vanc 10/23 -Vanc sensitive -cefazolin resistant 2. Poor peripheral venous vascular disease or extremities -As above 3. COPDcurrently steroid-dependent -Continue with her current COPD regimen which includes 10 mg prednisone daily. She also has albuterol available. -She is currently being worked up by erecting engineer Dr. Mckeon in [facility] 4. Hyperglycemia -Monitor with sliding scale Clinical Quality Measures Admission Status Admission Dx 1. Cellulitis left lower extremity 2. Poor peripheral venous vascular disease or extremities 3. COPDcurrently steroid-dependent 4. Hyperglycemia LEAH WOLF MD Oct 23, 2021 07:28
[2021-10-23 08:16] VITALS: BP 165/80
[2021-10-23] MEDS ORDERED: TROUGH ORDER-PHARMACY XX ONE (09:00)
[2021-10-23] MEDS: predniSONE 10 MG TAB PO SCH (09:25)
[2021-10-23] MEDS: PANTOPRAZOLE 40 MG (PROTONIX) TAB PO SCH (09:25)
[2021-10-23] MEDS: LORATADINE (CLARITIN) 10 MG TAB PO SCH (09:25)
[2021-10-23] MEDS: KCL 10 MEQ TAB (MICRO K) PO SCH ×2 (09:25→17:44)
[2021-10-23] MEDS ORDERED: HYPOCHLOROUS ACID/NaCl (VASHE) 250 ML IR PRN (10:30)
--- NOTE | 2021-10-23 12:20 | Wound Care Assessment ---
Wound Care Assessment Date Seen by Provider: Oct 23, 2021 Time Seen by Provider: 12:14 Chief Complaint Left lower extremity cellulitis with chronic weeping ulcer HPI This pleasant 61 year old patient is well known to my outpatient practice. Karie has a long h/o venous hypertension with current ulceration and associated inflammation of LLE. She also exhibited signs of cellulitis on her last visit to my office (specifically erythema, induration and significant pain). 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 She was started as outpatient on cefprozil with no improvement. She subsequently presented to the hospital for admission. Culture has revealed suspected MRSA. She was switched from Rocephin to Vancomycin yesterday. (She has had 2 doses thusfar.) She continues to have significant pain and is limited in elevation as a result. Copious serous drainage noted on exam today. She is covered in barrier ointment currently limiting full examination of periwound. Karie is on chronic prednisone for her COPD as well. She is working with her new software support analyst to get off this prednisone to assist in chronic wound healing and prevention of recurrent infections. Her latest A1C was in July (6.9). She does have known venous disease but has declined intervention at vein clinic in past. Past Medical History: Admits Diabetes Type II COPD, venous stasis with HTN and chronic ulceration, recurrent DVT (on coumadin) Smoking Status: Former Smoker Recreational Drug Use: No Alcohol Use: Denies Use Other Social Hx h/o illicit drug and alcohol abuse Review of Systems General: Other (obesity) Cardiovascular: Edema Musculoskeletal: leg pain Exam Vital Signs Date Time Temp Pulse Resp B/P (MAP) Pulse Ox O2 Delivery O2 Flow Rate FiO2 10/23/21 08:16 36.4 120 18 165/80 (108) 95 Room Air 10/23/21 06:54 2.00 10/20/21 13:34 32 Capillary Refill : Less Than 3 Seconds General Appearance: WD/WN, no apparent distress, obese Neck: full range of motion Extremities: normal range of motion, calf tenderness, inflammation, pedal edema, swelling Neurologic/Psychiatric: alert, normal mood/affect, oriented x 3 Skin Problem Location: lower extremities Skin Character: drainage (copious serous drainage), erythema, swelling, tenderness, warm Wound assessment: Numerous shallow ulcerations over left lower extremity. Unable to obtain measurements due to barrier ointment. The epithelialization is none. There is no tunneling or undermining. Drainage is large and serous. Granulation is none. The wound margins are flat. There is extensive erythema and induration in periwound consistent with cellulitis Results Laboratory Tests 10/22/21 14:30: Glucometer 195H 10/22/21 20:09: Glucometer 122H 10/23/21 05:54: Glucometer 117H 10/23/21 09:07: Vancomycin Level Trough 17.1 10/23/21 11:21: Glucometer 177H Microbiology 10/20/21 Blood Culture - Preliminary, Resulted No growth 10/20/21 Gram Stain - Final, Resulted 10/20/21 Wound Culture - Preliminary, Resulted Staphylococcus aureus 10/20/21 Urine Culture - Final, Complete NO GROWTH Assessment/Plan/Dx Assessment: 1. Cellulitis (presumed MRSA by culture) 2. Venous HTN with ulceration and inflammation 3. Lymphedema 4. Chronic systemic steroid use 5. DM2 with hyperglycemic Plan: 1. Agree with targeted antibiotic therapy. Monitor closely for improvement. 2. Elevation above level of heart (as much as possible). Cleanse wounds with vashe and coat periwound in thick layer of barrier ointment bid and prn. Leave ulcers open to air with chucks under to catch drainage 3. Elevation. Once drainage and pain have improved as outpatient, will consider dressing with appropriate compression. 4. Allow patient to bring her own OTC vitamin A gel caps to hospital. Allow her to apply a thin layer of gel (opened with pin) to open woundbeds 5. Good glycemic control is advisable. MARTHA JACKSON MD Oct 23, 2021 12:20
[2021-10-23 12:22] VITALS: BP 125/74
[2021-10-23] MEDS: polyethylene glycoL POWDER 17 GM (MIRALAX) PACK PO PRN (14:50)
[2021-10-23 15:47] VITALS: BP_SYST 117; BP_SYST 121; BP_DIAS 70; BP_DIAS 86
[2021-10-23] MEDS: warFARin 5 MG (COUMADIN) TAB PO SCH (17:44)
[2021-10-23 19:44] VITALS: BP 152/61
[2021-10-23] MEDS: MONTELUKAST 10 MG (SINGULAIR) TAB PO SCH (20:48)
[2021-10-24 00:10] VITALS: BP 143/79
[2021-10-24] MEDS: VANCOMYCIN 1250 MG/NS 250 ML IVPB IV SCH ×6 (01:44→18:25)
[2021-10-24] MEDS: RT-ALBUTEROL/IPRATROPIUM 3 ML (DUONEB) VIAL INH SCH ×6 (02:36→22:06)
[2021-10-24 03:59] VITALS: BP 122/73
[2021-10-24] MEDS: FUROSEMIDE 40 MG (LASIX) TAB PO SCH (06:30)
[2021-10-24] MEDS: inSUlin ASPART (NovoLOG) 1 UNIT/0.01 ML (CHARGE PER UNIT) SC SCH ×4 (06:30→21:25)
[2021-10-24] MEDS: CATHETER FLUSH 10 ML SYR IVP SCH ×3 (06:30→19:48)
--- NOTE | 2021-10-24 06:47 | Progress Note ---
Subjective Date Seen by a Provider: Oct 24, 2021 Time Seen by a Provider: 06:55 Subjective/Events-last exam Wound care by yesterday. Agree with antibiotic therapy. She complaining of increased difficulty breathing due to her COPD. Objective Exam Vital Signs Date Time Temp Pulse Resp B/P (MAP) Pulse Ox O2 Delivery O2 Flow Rate FiO2 10/24/21 03:59 36.4 101 20 122/73 (89) 97 Room Air 10/24/21 02:36 95 Room Air 10/24/21 00:10 36.3 99 20 143/79 (100) 95 Room Air 10/23/21 23:48 96 Room Air 10/23/21 20:00 Room Air 10/23/21 19:44 36.6 115 18 152/61 (91) 92 Room Air 10/23/21 19:00 94 Room Air 10/23/21 15:47 37.0 119 17 117/70 (86) 92 Room Air 10/23/21 15:47 36.4 112 95 32 10/23/21 12:22 37.2 128 19 125/74 (91) 91 Room Air 10/23/21 08:16 36.4 120 18 165/80 (108) 95 Room Air 10/23/21 07:25 91 Room Air 10/23/21 06:54 94 Nasal Cannula 2.00 I & O 10/24/21 07:00 Intake Total 1945 ml Output Total 2550 ml Balance -605 ml Capillary Refill : Less Than 3 Seconds General Appearance: No Apparent Distress Respiratory: Wheezing Cardiovascular: Regular Rate, Rhythm Neurologic/Psychiatric: Other (less erythema proximally with regards to LLE) Results Lab Laboratory Tests 10/23/21 09:07: Vancomycin Level Trough 17.1 10/23/21 11:21: Glucometer 177H 10/23/21 15:21: Glucometer 187H 10/23/21 20:06: Glucometer 168H 10/24/21 06:14: Glucometer 110 Microbiology 10/20/21 Blood Culture - Preliminary, Resulted No growth 10/20/21 Gram Stain - Final, Complete 10/20/21 Wound Culture - Final, Complete Staphylococcus aureus Mixed Bacterial Harika 10/20/21 Urine Culture - Final, Complete NO GROWTH Assessment/Plan Assessment/Plan Assess & Plan/Chief Complaint 1. Cellulitis left lower extremity -Initiation of IV Rocephin -Consultation with wound care 10/21 -day 2 Rocephin 10/22 -presumptive MRSA add on vanc 10/23 -Vanc sensitive -cefazolin resistant 10/24 -Day 3 vanc -appreciate Dr Kerr input for wound care 2. Poor peripheral venous vascular disease or extremities -As above 3. COPDcurrently steroid-dependent -Continue with her current COPD regimen which includes 10 mg prednisone daily. She also has albuterol available. -She is currently being worked up by supervisor refining Dr. Mckeon in [facility] 10/24 -Add solumedrol 80mg IV bid 4. Hyperglycemia -Monitor with sliding scale Clinical Quality Measures Admission Status Admission Dx 1. Cellulitis left lower extremity 2. Poor peripheral venous vascular disease or extremities 3. COPDcurrently steroid-dependent 4. Hyperglycemia LEAH WOLF MD Oct 24, 2021 06:47
[2021-10-24] MEDS ORDERED: RT-BUDESONIDE NEBS 0.5 MG/2ML (PULMICORT) AMP ONE (07:12)
[2021-10-24 08:18] VITALS: BP 127/81
[2021-10-24] MEDS: predniSONE 10 MG TAB PO SCH (09:59)
[2021-10-24] MEDS: LORATADINE (CLARITIN) 10 MG TAB PO SCH (09:59)
[2021-10-24] MEDS: KCL 10 MEQ TAB (MICRO K) PO SCH ×2 (09:59→18:25)
[2021-10-24] MEDS: methylPREDNISolone 40 MG/ML (Solu-MEDROL) VIAL IV SCH ×2 (09:59→19:48)
[2021-10-24] MEDS: PANTOPRAZOLE 40 MG (PROTONIX) TAB PO SCH (09:59)
[2021-10-24] MEDS: ACETAMINOPHEN 500 MG TAB (TYLENOL) PO PRN ×2 (10:05→18:25)
[2021-10-24] MEDS: RT-BUDESONIDE NEBS 0.5 MG/2ML (PULMICORT) AMP INH SCH ×2 (11:01→22:07)
[2021-10-24 11:44] VITALS: BP 102/68
[2021-10-24 16:13] VITALS: BP 105/72
[2021-10-24] MEDS: warFARin 4 MG (COUMADIN) TAB PO SCH (18:27)
[2021-10-24 19:33] VITALS: BP 133/77
[2021-10-24] MEDS: MONTELUKAST 10 MG (SINGULAIR) TAB PO SCH (19:50)
[2021-10-25] VITALS (7 sets, daily range): BP systolic 117–133; BP diastolic 67–88
[2021-10-25] MEDS: VANCOMYCIN 1250 MG/NS 250 ML IVPB IV SCH ×6 (02:03→23:27)
[2021-10-25] MEDS: RT-ALBUTEROL/IPRATROPIUM 3 ML (DUONEB) VIAL INH SCH ×6 (03:14→22:20)
[2021-10-25] MEDS: ACETAMINOPHEN 500 MG TAB (TYLENOL) PO PRN ×2 (04:42→18:33)
[2021-10-25] MEDS: inSUlin ASPART (NovoLOG) 1 UNIT/0.01 ML (CHARGE PER UNIT) SC SCH ×4 (05:37→20:36)
[2021-10-25] MEDS: CATHETER FLUSH 10 ML SYR IVP SCH ×3 (05:39→20:36)
[2021-10-25] MEDS: FUROSEMIDE 40 MG (LASIX) TAB PO SCH (06:01)
[2021-10-25] MEDS: RT-BUDESONIDE NEBS 0.5 MG/2ML (PULMICORT) AMP INH SCH ×2 (07:05→18:50)
--- NOTE | 2021-10-25 07:18 | Progress Note ---
Subjective Date Seen by a Provider: Oct 25, 2021 Time Seen by a Provider: 07:05 Subjective/Events-last exam Sitting in bed this am with feet and legs at least flat. She reported felt better to let legs dangle before. Drainage of yellowish fluid continues. Swelling is down a little. Objective Exam Vital Signs Date Time Temp Pulse Resp B/P (MAP) Pulse Ox O2 Delivery O2 Flow Rate FiO2 10/25/21 07:06 95 Nasal Cannula 2.00 10/25/21 04:28 36.4 108 18 121/76 (91) 94 Nasal Cannula 2.00 10/25/21 03:15 94 Nasal Cannula 2.00 10/25/21 00:10 36.3 104 20 124/69 (87) 93 Nasal Cannula 2.00 10/24/21 22:07 95 Nasal Cannula 2.00 10/24/21 20:01 Room Air 10/24/21 19:33 36.9 123 20 133/77 (95) 95 Nasal Cannula 2.00 10/24/21 18:45 95 Nasal Cannula 2.00 10/24/21 16:13 37.0 114 20 105/72 (83) 92 Nasal Cannula 10/24/21 14:45 94 Nasal Cannula 2.00 10/24/21 11:44 36.5 110 18 102/68 (79) 90 Room Air 10/24/21 11:02 94 Nasal Cannula 2.00 10/24/21 08:18 36.9 109 18 127/81 (96) 93 Room Air 10/24/21 07:59 Room Air I & O 10/25/21 07:00 Intake Total 1730 ml Output Total 1100 ml Balance 630 ml Capillary Refill : Less Than 3 Seconds General Appearance: No Apparent Distress Respiratory: Lungs Clear (but just had albuterol treatment) Extremity: Other (minimal erythema to the L leg. weeping of yellow/clear fluid from 2 sites anterior L leg) Results Lab Laboratory Tests 10/24/21 11:28: Glucometer 126H 10/24/21 16:16: Glucometer 145H 10/24/21 20:13: Glucometer 205H 10/25/21 05:31: Glucometer 164H 10/25/21 05:42: Prothrombin Time 23.0H, INR Comment 2.0H Microbiology 10/20/21 Blood Culture - Preliminary, Resulted No growth 10/20/21 Gram Stain - Final, Complete 10/20/21 Wound Culture - Final, Complete Staphylococcus aureus Mixed Bacterial Harika 10/20/21 Urine Culture - Final, Complete NO GROWTH Assessment/Plan Assessment/Plan Assess & Plan/Chief Complaint 1. Cellulitis left lower extremity -Initiation of IV Rocephin -Consultation with wound care 10/21 -day 2 Rocephin 10/22 -presumptive MRSA add on vanc 10/23 -Vanc sensitive -cefazolin resistant 10/24 -Day 3 vanc -appreciate Dr Kerr input for wound care 10/25 -Day 4 Vanc. Appears to be slowly improving. -continue current care with vanc 2. Poor peripheral venous vascular disease or extremities -As above 3. COPDcurrently steroid-dependent -Continue with her current COPD regimen which includes 10 mg prednisone daily. She also has albuterol available. -She is currently being worked up by capacity planning engineer Dr. Mckeon in [facility] 10/24 -Add solumedrol 80mg IV bid 4. Hyperglycemia -Monitor with sliding scale Clinical Quality Measures Admission Status Admission Dx 1. Cellulitis left lower extremity 2. Poor peripheral venous vascular disease or extremities 3. COPDcurrently steroid-dependent 4. Hyperglycemia LEAH WOLF MD Oct 25, 2021 07:18
[2021-10-25] MEDS: PANTOPRAZOLE 40 MG (PROTONIX) TAB PO SCH (08:46)
[2021-10-25] MEDS: predniSONE 10 MG TAB PO SCH (08:46)
[2021-10-25] MEDS: KCL 10 MEQ TAB (MICRO K) PO SCH ×2 (08:46→16:11)
[2021-10-25] MEDS: LORATADINE (CLARITIN) 10 MG TAB PO SCH (08:58)
[2021-10-25] MEDS: methylPREDNISolone 40 MG/ML (Solu-MEDROL) VIAL IV SCH ×2 (13:50→20:37)
[2021-10-25] MEDS ORDERED: VANCOMYCIN 500 MG/NS 100 ML IV NR ×2 (14:30)
[2021-10-25] MEDS: warFARin 5 MG (COUMADIN) TAB PO SCH (16:11)
[2021-10-25] MEDS: MONTELUKAST 10 MG (SINGULAIR) TAB PO SCH (20:36)
[2021-10-26] VITALS (7 sets, daily range): BP systolic 108–156; BP diastolic 65–80
[2021-10-26] MEDS: RT-ALBUTEROL/IPRATROPIUM 3 ML (DUONEB) VIAL INH SCH ×6 (02:06→22:25)
[2021-10-26] MEDS: inSUlin ASPART (NovoLOG) 1 UNIT/0.01 ML (CHARGE PER UNIT) SC SCH ×4 (05:16→21:35)
[2021-10-26] MEDS: ACETAMINOPHEN 500 MG TAB (TYLENOL) PO PRN ×2 (05:17→21:35)
[2021-10-26] MEDS: CATHETER FLUSH 10 ML SYR IVP SCH ×3 (07:02→20:30)
[2021-10-26] MEDS: FUROSEMIDE 40 MG (LASIX) TAB PO SCH (07:02)
[2021-10-26] MEDS: RT-BUDESONIDE NEBS 0.5 MG/2ML (PULMICORT) AMP INH SCH ×2 (07:26→19:00)
--- NOTE | 2021-10-26 07:33 | Progress Note ---
Subjective Date Seen by a Provider: Oct 26, 2021 Time Seen by a Provider: 07:10 Subjective/Events-last exam Swelling of L leg continues to go down. Leakage is still present from open areas of L leg. Objective Exam Vital Signs Date Time Temp Pulse Resp B/P (MAP) Pulse Ox O2 Delivery O2 Flow Rate FiO2 10/26/21 03:51 36.3 100 20 131/78 (95) 94 Nasal Cannula 2.00 10/26/21 02:06 95 Nasal Cannula 2.00 10/25/21 23:39 36.6 101 20 128/75 (92) 92 Nasal Cannula 2.00 10/25/21 22:20 94 Nasal Cannula 2.00 10/25/21 20:40 Nasal Cannula 2.00 10/25/21 20:00 36.7 112 20 132/67 (88) 95 Nasal Cannula 2.00 10/25/21 18:50 95 Nasal Cannula 2.00 10/25/21 15:54 36.7 96 18 130/88 (102) 95 Nasal Cannula 2.00 10/25/21 15:21 95 Nasal Cannula 2.00 10/25/21 11:25 36.5 124 18 117/77 (90) 97 Nasal Cannula 2.00 10/25/21 09:29 95 Nasal Cannula 2.00 10/25/21 08:00 Room Air I & O 10/26/21 07:00 Intake Total 2700 ml Output Total 2600 ml Balance 100 ml Capillary Refill : Less Than 3 Seconds General Appearance: No Apparent Distress Respiratory: No Accessory Muscle Use; Wheezing (mild) Cardiovascular: Regular Rate, Rhythm Extremity: Swelling (less), Other (erythema has improved to the LLE) Results Lab Laboratory Tests 10/25/21 10:22: Glucometer 134H 10/25/21 13:27: Vancomycin Level Trough 11.9 10/25/21 15:55: Glucometer 156H 10/25/21 20:04: Glucometer 191H 10/26/21 05:16: Glucometer 163H Microbiology 10/20/21 Blood Culture - Final, Complete No growth 10/20/21 Gram Stain - Final, Complete 10/20/21 Wound Culture - Final, Complete Staphylococcus aureus Mixed Bacterial Harika 10/20/21 Urine Culture - Final, Complete NO GROWTH Assessment/Plan Assessment/Plan Assess & Plan/Chief Complaint 1. Cellulitis left lower extremity -Initiation of IV Rocephin -Consultation with wound care 10/21 -day 2 Rocephin 10/22 -presumptive MRSA add on vanc 10/23 -Vanc sensitive -cefazolin resistant 10/24 -Day 3 vanc -appreciate Dr Kerr input for wound care 10/25 -Day 4 Vanc. Appears to be slowly improving. -continue current care with vanc 10/26 -Day 5 Vanc -improving and I suspect 1 or 2 more days of IV vanc before home on levaquin 2. Poor peripheral venous vascular disease or extremities -As above 3. COPDcurrently steroid-dependent -Continue with her current COPD regimen which includes 10 mg prednisone daily. She also has albuterol available. -She is currently being worked up by cutter apprentice hand Dr. Mckeon in [facility] 10/24 -Add solumedrol 80mg IV bid 4. Hyperglycemia -Monitor with sliding scale Clinical Quality Measures Admission Status Admission Dx 1. Cellulitis left lower extremity 2. Poor peripheral venous vascular disease or extremities 3. COPDcurrently steroid-dependent 4. Hyperglycemia LEAH WOLF MD Oct 26, 2021 07:33
[2021-10-26] MEDS: LORATADINE (CLARITIN) 10 MG TAB PO SCH (09:31)
[2021-10-26] MEDS: predniSONE 10 MG TAB PO SCH (09:31)
[2021-10-26] MEDS: KCL 10 MEQ TAB (MICRO K) PO SCH ×2 (09:31→18:18)
[2021-10-26] MEDS: methylPREDNISolone 40 MG/ML (Solu-MEDROL) VIAL IV SCH ×2 (09:31→20:30)
[2021-10-26] MEDS: PANTOPRAZOLE 40 MG (PROTONIX) TAB PO SCH (09:31)
[2021-10-26] MEDS: VANCOMYCIN 1250 MG/NS 250 ML IVPB IV SCH ×4 (11:32→22:32)
[2021-10-26] MEDS: warFARin 4 MG (COUMADIN) TAB PO SCH (18:18)
[2021-10-26] MEDS: MONTELUKAST 10 MG (SINGULAIR) TAB PO SCH (20:30)
[2021-10-27] MEDS: RT-ALBUTEROL/IPRATROPIUM 3 ML (DUONEB) VIAL INH SCH ×4 (02:55→14:23)
[2021-10-27] MEDS: ACETAMINOPHEN 500 MG TAB (TYLENOL) PO PRN ×2 (03:10→11:54)
[2021-10-27 03:37] VITALS: BP 140/79
[2021-10-27] MEDS: inSUlin ASPART (NovoLOG) 1 UNIT/0.01 ML (CHARGE PER UNIT) SC SCH ×3 (05:46→16:14)
[2021-10-27] MEDS: CATHETER FLUSH 10 ML SYR IVP SCH ×2 (06:18→16:14)
[2021-10-27] MEDS: ONDANSETRON 4 MG/2 ML (SDV) Z0FRAN IVP PRN (06:18)
[2021-10-27] MEDS: FUROSEMIDE 40 MG (LASIX) TAB PO SCH (06:18)
[2021-10-27] MEDS ORDERED: LEVO750T39 PO ×2 (07:48)
--- NOTE | 2021-10-27 07:50 | Discharge Inst-Simple/Standard ---
Discharge Inst-Standard Reconcile Patient Problems Problems Reviewed?: Yes Discharge Medications New, Converted or Re-Newed RX: Transmitted to Pharmacy ([facility]) Patient Instructions/Follow Up Plan of Care/Instructions/FU: Dr Wolf early next week. Keep appt with wound care next week as well. Keep legs elevated best you can Activity as Tolerated: Yes Discharge Diet: Low Sodium Diet Return to The Hospital For: Fever greater than 100.5 or if reddness of legs returns LEAH WOLF MD Oct 27, 2021 07:50
--- NOTE | 2021-10-27 07:55 | Discharge Summary ---
Diagnosis/Chief Complaint Date of Admission Oct 20, 2021 at 11:28 Date of Discharge Discharge Date: Oct 27, 2021 Discharge Time: 1600 Admission Diagnosis Admission Diagnosis 1. Cellulitis left lower extremity 2. Poor peripheral venous vascular disease or extremities 3. COPDcurrently steroid-dependent 4. Hyperglycemia Discharge Diagnosis 1. Cellulitis left lower extremity--MRSA 2. Poor peripheral venous vascular disease or extremities 3. COPDcurrently steroid-dependent 4. Hyperglycemia Reason Hospital Visit Karie is a 61-year-old female who was in today through the emergency department after worsening infection of her left leg. She has known poor peripheral vascular disease evaluate about where the left. She has been seen by wound care and treated there as well. Is currently on generic Cefzil 500 mg daily and started this about 2 days ago. She has not seen a huge difference or improvement. Her skin is marked by wound care doctor and the local erythema has went past the marking. Along with her having intense pain she decided to come to the emergency department she has had drainage of yellowish pus from at least 3 different sites. He has had lower extremity Doppler to exclude DVT and has been done. 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 Her COPD is status quo at this time. Discharge Summary Hospital Course Hospital Course 1. Cellulitis left lower extremity -Initiation of IV Rocephin -Consultation with wound care 10/21 -day 2 Rocephin 10/22 -presumptive MRSA add on vanc 10/23 -Vanc sensitive -cefazolin resistant 10/24 -Day 3 vanc -appreciate Dr Kerr input for wound care 10/25 -Day 4 Vanc. Appears to be slowly improving. -continue current care with vanc 10/26 -Day 5 Vanc -improving and I suspect 1 or 2 more days of IV vanc before home on levaquin 2. Poor peripheral venous vascular disease or extremities -As above 3. COPDcurrently steroid-dependent -Continue with her current COPD regimen which includes 10 mg prednisone daily. She also has albuterol available. -She is currently being worked up by renal dietitian Dr. Mckeon in [facility] 10/24 -Add solumedrol 80mg IV bid 4. Hyperglycemia -Monitor with sliding scale Labs Laboratory Tests 10/24/21 11:28: Glucometer 126H 10/24/21 16:16: Glucometer 145H 10/24/21 20:13: Glucometer 205H 10/25/21 05:31: Glucometer 164H 10/25/21 05:42: Prothrombin Time 23.0H, INR Comment 2.0H 10/25/21 10:22: Glucometer 134H 10/25/21 13:27: 10/25/21 15:55: Glucometer 156H 10/25/21 20:04: Glucometer 191H 10/26/21 05:16: Glucometer 163H 10/26/21 07:43: Glucometer 129H 10/26/21 11:18: Glucometer 152H 10/26/21 16:14: Glucometer 207H 10/27/21 05:30: Glucometer 172H Procedures None. Discharge Physical Examination Allergies: Coded Allergies: aspirin (Verified Allergy, Severe, ANAPHYLAXIS, 03/03/19) ibuprofen (Verified Allergy, Severe, ANAPHYLAXIS, 03/03/19) ketorolac (Verified Allergy, Severe, ANAPHYLAXIS, 03/03/19) tetanus and diphtheria toxoids (Unverified Allergy, Severe, ANAPHYLAXIS, 03/03/19) aloe (Verified Allergy, Mild, RASH, 03/03/19) latex (Verified Allergy, Mild, RASH, 03/03/19) OCCASIONALLY IS IRRITATING SKIN scopolamine (Verified Allergy, Mild, 03/03/19) black pepper (Verified Allergy, Unknown, 10/20/21) chocolate flavor (Verified Allergy, Unknown, 10/20/21) coconut (Verified Allergy, Unknown, 10/20/21) tomato (Verified Allergy, Unknown, Rash, 10/20/21) iodine (Verified Adverse Reaction, Unknown, 03/03/19) Patient states she got dizzy, diaphoretic and saw stars. Uncoded Allergies: ALOE VERA (Allergy, Unknown, 12/23/05) SILK SUTURES (Adverse Reaction, Unknown, BODY REJECTS SUTURES, 10/07/13) Vitals & I&Os Vital Signs Date Time Temp Pulse Resp B/P (MAP) Pulse Ox O2 Delivery O2 Flow Rate FiO2 10/27/21 03:37 36.4 102 20 140/79 (99) 92 Nasal Cannula 2.00 10/26/21 09:36 28 Discharge Home Medications Reviewed and agree with Discharge Medication list on patient's Discharge Instruction sheet Instructions to Patient/Family Please see electronic discharge instructions given to patient. LEAH WOLF MD Oct 27, 2021 07:55
[2021-10-27] MEDS: RT-BUDESONIDE NEBS 0.5 MG/2ML (PULMICORT) AMP INH SCH (08:01)
[2021-10-27 08:04] VITALS: BP 139/82
[2021-10-27] MEDS: PANTOPRAZOLE 40 MG (PROTONIX) TAB PO SCH (09:50)
[2021-10-27] MEDS: predniSONE 10 MG TAB PO SCH ×2 (09:51→10:02)
[2021-10-27] MEDS: KCL 10 MEQ TAB (MICRO K) PO SCH (09:51)
[2021-10-27] MEDS: LORATADINE (CLARITIN) 10 MG TAB PO SCH (09:51)
[2021-10-27] MEDS: methylPREDNISolone 40 MG/ML (Solu-MEDROL) VIAL IV SCH (09:51)
[2021-10-27 11:37] VITALS: BP 136/90
[2021-10-27] MEDS: VANCOMYCIN 1250 MG/NS 250 ML IVPB IV SCH ×2 (11:39)
[2021-10-27 15:41] VITALS: BP 123/72
[2021-10-27 17:09] VITALS: BP 123/72
== END 2021-10-27 17:00 | disposition home or self-care (01) | DRG 603 ==
LOC: EDUNIT# 09:20 → ER 09:22 → 4TH 11:28
PROVIDERS: ADMIT Family Medicine; ATTEND Family Medicine
DX: L03.116 Cellulitis of left lower limb (principal); I87.332 Chronic venous hypertension (idiopathic) with ulcer and inflammation of left lower extremity; L97.829 Non-pressure chronic ulcer of other part of left lower leg with unspecified severity; J44.9 Chronic obstructive pulmonary disease, unspecified; Z99.81 Dependence on supplemental oxygen; I11.0 Hypertensive heart disease with heart failure; I50.9 Heart failure, unspecified; B95.62 Methicillin resistant Staphylococcus aureus infection as the cause of diseases classified elsewhere; E11.65 Type 2 diabetes mellitus with hyperglycemia; I87.8 Other specified disorders of veins; I89.0 Lymphedema, not elsewhere classified; Z86.718 Personal history of other venous thrombosis and embolism; Z79.01 Long term (current) use of anticoagulants; Z79.52 Long term (current) use of systemic steroids
CPT/HCPCS: 36415; 36569; 71045; 76937; 80053; 80202; 81000; 82947; 83605; 85025; 85610; 85730; 87040; 87070; 87077; 87088; 87186; 87205; 94640; 94760; 96374; 96375

== ENCOUNTER → 2021-10-30 | Outpatient (CLI) | payer MEDICAID ==
[~2021-10-30] MED LIST changes: +ALB0.5V INH; +BALO40TA PO; -BALO40TA4 PO; +POLY17PO6 PO
== END ==
LOC: WOUNDCARE 08:26
PROVIDERS: ATTEND Family Medicine
DX: L97.222 Non-pressure chronic ulcer of left calf with fat layer exposed (principal); E11.628 Type 2 diabetes mellitus with other skin complications; L03.116 Cellulitis of left lower limb; I87.332 Chronic venous hypertension (idiopathic) with ulcer and inflammation of left lower extremity; E66.01 Morbid (severe) obesity due to excess calories; Z79.52 Long term (current) use of systemic steroids; E11.622 Type 2 diabetes mellitus with other skin ulcer; I89.0 Lymphedema, not elsewhere classified; E11.52 Type 2 diabetes mellitus with diabetic peripheral angiopathy with gangrene; I96 Gangrene, not elsewhere classified
CPT/HCPCS: 99213

== ENCOUNTER 2021-11-06 09:03 | Outpatient (RCR) | payer MEDICAID ==
[2021-11-06 09:44] LABS: INR 3.4 (0.8-1.4); PROTHROMBIN TIME PATIENT 35.1 SEC (12.2-14.7)
== END 2021-11-09 | disposition home or self-care (01) ==
LOC: LAB 09:03
PROVIDERS: ATTEND Family Medicine
DX: Z86.718 Personal history of other venous thrombosis and embolism (principal); Z86.711 Personal history of pulmonary embolism
CPT/HCPCS: 36415; 85610

== ENCOUNTER → 2021-11-06 | Outpatient (CLI) | payer MEDICAID ==
[~2021-11-06] MED LIST changes: -BALO40TA PO; +BALO40TA4 PO
== END ==
LOC: WOUNDCARE 08:15
PROVIDERS: ATTEND Family Medicine
DX: I87.332 Chronic venous hypertension (idiopathic) with ulcer and inflammation of left lower extremity (principal); L97.222 Non-pressure chronic ulcer of left calf with fat layer exposed; L03.116 Cellulitis of left lower limb; E66.01 Morbid (severe) obesity due to excess calories; E11.622 Type 2 diabetes mellitus with other skin ulcer; I89.0 Lymphedema, not elsewhere classified; I96 Gangrene, not elsewhere classified; E11.52 Type 2 diabetes mellitus with diabetic peripheral angiopathy with gangrene; Z68.37 Body mass index [BMI] 37.0-37.9, adult; Z79.52 Long term (current) use of systemic steroids
CPT/HCPCS: 11042; 87070; 87205

== ENCOUNTER → 2021-11-14 | Outpatient (CLI) | payer MEDICAID | LOC: WOUNDCARE 09:54 | PROVIDERS: ATTEND Family Medicine | DX: L97.222 Non-pressure chronic ulcer of left calf with fat layer exposed (principal); I87.332 Chronic venous hypertension (idiopathic) with ulcer and inflammation of left lower extremity; E66.01 Morbid (severe) obesity due to excess calories; E11.622 Type 2 diabetes mellitus with other skin ulcer; I89.0 Lymphedema, not elsewhere classified; E11.52 Type 2 diabetes mellitus with diabetic peripheral angiopathy with gangrene; Z79.52 Long term (current) use of systemic steroids | CPT/HCPCS: 11042; 36415; 83036 ==

== ENCOUNTER 2021-11-27 10:27 | Outpatient (RCR) | payer MEDICAID ==
[2021-11-14 10:12] LABS: INR 1.2 (0.8-1.4); PROTHROMBIN TIME PATIENT 15.3 SEC (12.2-14.7)
[2021-11-27 11:04] LABS: INR 1.6 (0.8-1.4); PROTHROMBIN TIME PATIENT 19.9 SEC (12.2-14.7)
[2021-12-04 08:54] LABS: INR 1.9 (0.8-1.4); PROTHROMBIN TIME PATIENT 22.6 SEC (12.2-14.7)
== END 2021-12-10 | disposition home or self-care (01) ==
LOC: LAB 10:27
PROVIDERS: ATTEND Family Medicine
DX: Z86.718 Personal history of other venous thrombosis and embolism (principal); Z86.711 Personal history of pulmonary embolism
CPT/HCPCS: 36415; 85610

== ENCOUNTER → 2021-11-27 | Outpatient (CLI) | payer MEDICAID ==
[~2021-11-27] MED LIST changes: +RT-ALBUTEROL SULF 2.5 MG/3 ML PRE-MIX VIAL INH ONE
== END ==
LOC: RT 09:15
PROVIDERS: ATTEND Internal Medicine Critical Care Medicine
DX: J43.9 Emphysema, unspecified (principal); Z87.891 Personal history of nicotine dependence
CPT/HCPCS: 94060; 94621; 94726; 94729

== ENCOUNTER → 2021-11-27 | Outpatient (CLI) | payer MEDICAID ==
[~2021-11-27] MED LIST changes: -RT-ALBUTEROL SULF 2.5 MG/3 ML PRE-MIX VIAL INH ONE
== END ==
LOC: WOUNDCARE 08:17
PROVIDERS: ATTEND Family Medicine
DX: L97.222 Non-pressure chronic ulcer of left calf with fat layer exposed (principal); I87.332 Chronic venous hypertension (idiopathic) with ulcer and inflammation of left lower extremity; E66.01 Morbid (severe) obesity due to excess calories; E11.622 Type 2 diabetes mellitus with other skin ulcer; I89.0 Lymphedema, not elsewhere classified; G90.09 Other idiopathic peripheral autonomic neuropathy; E11.52 Type 2 diabetes mellitus with diabetic peripheral angiopathy with gangrene; Z79.52 Long term (current) use of systemic steroids
CPT/HCPCS: 11042

== ENCOUNTER → 2021-12-04 | Outpatient (CLI) | payer MEDICAID | LOC: WOUNDCARE 08:20 | PROVIDERS: ATTEND Family Medicine | DX: L97.222 Non-pressure chronic ulcer of left calf with fat layer exposed (principal); I87.332 Chronic venous hypertension (idiopathic) with ulcer and inflammation of left lower extremity; E66.01 Morbid (severe) obesity due to excess calories; E11.622 Type 2 diabetes mellitus with other skin ulcer; I89.0 Lymphedema, not elsewhere classified; E11.40 Type 2 diabetes mellitus with diabetic neuropathy, unspecified; Z79.52 Long term (current) use of systemic steroids; G90.09 Other idiopathic peripheral autonomic neuropathy; E11.52 Type 2 diabetes mellitus with diabetic peripheral angiopathy with gangrene; I96 Gangrene, not elsewhere classified | CPT/HCPCS: 11042 ==

== ENCOUNTER → 2021-12-11 | Outpatient (CLI) | payer MEDICAID | LOC: WOUNDCARE 08:19 | PROVIDERS: ATTEND Family Medicine | DX: L97.222 Non-pressure chronic ulcer of left calf with fat layer exposed (principal); I87.332 Chronic venous hypertension (idiopathic) with ulcer and inflammation of left lower extremity; E66.01 Morbid (severe) obesity due to excess calories; E11.622 Type 2 diabetes mellitus with other skin ulcer; I89.0 Lymphedema, not elsewhere classified; G90.09 Other idiopathic peripheral autonomic neuropathy; E11.52 Type 2 diabetes mellitus with diabetic peripheral angiopathy with gangrene; Z79.52 Long term (current) use of systemic steroids | CPT/HCPCS: 11042 ==

== ENCOUNTER 2021-12-18 09:15 | Outpatient (RCR) | payer MEDICAID ==
[~2021-12-18 09:15] MED LIST changes: +LEVO750T PO; -LEVO750T39 PO
[2021-12-25] MEDS ORDERED: ALBU2.5V4 INH (15:55)
[2021-12-25] MEDS ORDERED: PRD20T PO (15:57)
[2021-12-25] MEDS ORDERED: CEFP500T4 PO (15:58)
[2021-12-25] MEDS ORDERED: RT-ALBUINH IH (16:00)
[2021-12-25] MEDS ORDERED: HYDR-3817 PO (16:05)
[2021-12-25] MEDS ORDERED: ACET-2267 PO (16:06)
[2021-12-26] MEDS ORDERED: GFCD10B PO (07:43)
== END 2022-01-10 | disposition home or self-care (01) ==
LOC: LAB 09:15
PROVIDERS: ATTEND Family Medicine
DX: Z86.718 Personal history of other venous thrombosis and embolism (principal); Z86.711 Personal history of pulmonary embolism
CPT/HCPCS: 36415; 84134

== ENCOUNTER → 2021-12-18 | Outpatient (CLI) | payer MEDICAID | LOC: WOUNDCARE 08:17 | PROVIDERS: ATTEND Family Medicine | DX: I87.332 Chronic venous hypertension (idiopathic) with ulcer and inflammation of left lower extremity (principal); L97.222 Non-pressure chronic ulcer of left calf with fat layer exposed; E66.01 Morbid (severe) obesity due to excess calories; E11.622 Type 2 diabetes mellitus with other skin ulcer; I89.0 Lymphedema, not elsewhere classified; G90.09 Other idiopathic peripheral autonomic neuropathy; Z79.52 Long term (current) use of systemic steroids; Z68.37 Body mass index [BMI] 37.0-37.9, adult | CPT/HCPCS: 11042 ==

== ENCOUNTER → 2021-12-18 | Outpatient (CLI) | payer MEDICAID ==
[2021-12-18 09:49] LABS: PROTHROMBIN TIME PATIENT 23.4 SEC (12.2-14.7)
== END ==
LOC: LAB 09:11
PROVIDERS: ATTEND Family Medicine
DX: L97.222 Non-pressure chronic ulcer of left calf with fat layer exposed (principal); I87.332 Chronic venous hypertension (idiopathic) with ulcer and inflammation of left lower extremity; E66.01 Morbid (severe) obesity due to excess calories; E11.622 Type 2 diabetes mellitus with other skin ulcer; I89.0 Lymphedema, not elsewhere classified; G90.09 Other idiopathic peripheral autonomic neuropathy; Z79.52 Long term (current) use of systemic steroids
CPT/HCPCS: 36415; 82306; 82607; 82746; 85610

== ENCOUNTER → 2021-12-19 | Outpatient (CLI) | payer MEDICAID ==
[~2021-12-19] MED LIST changes: -LEVO750T PO; +LEVO750T39 PO
== END ==
LOC: WOUNDCARE 13:09
PROVIDERS: ATTEND Family Medicine
DX: I87.332 Chronic venous hypertension (idiopathic) with ulcer and inflammation of left lower extremity (principal)
CPT/HCPCS: 29581

== ENCOUNTER 2021-12-24 10:18 | Observation (INO) | payer MEDICAID ==
[~2021-12-24] VITALS: Ht 165.1 cm; Wt 97.1 kg
--- NOTE | 2021-12-24 10:39 | ED Respiratory ---
General Chief Complaint: Respiratory Problems Stated Complaint: SOB Source: patient, EMS Exam Limitations: no limitations History of Present Illness Date Seen by Provider: Dec 24, 2021 Time Seen by Provider: 10:20 Initial Comments Patient is a 61-year-old with a history of "asthma" and former 3 pack-a-day smoker who wears oxygen at 2 and half liters at night only. Presents to the emergency room with several days (4) of increasing upper respiratory congestion and cough. She denies fevers or chills. She denies smoke exposure or recent illness exposure. Normal appetite. Normal bowel and bladder. No body aches. States that she saw her primary care physician of last week and was started on cefprozil, a 9-day prednisone taper. She is on day 3 of these medications. She called EMS due to increased shortness of breath this morning. She denies significant lower extremity swelling. She only has chest discomfort when she coughs. She has had multiple rounds of albuterol this morning and arrives in moderate respiratory distress. Her infection prevention specialist is Dr Mckeon. All other review of systems reviewed and negative except as stated Timing/Duration: other (4 days) Severity: moderate Prior Episodes/Possible Cause: occasional episodes Associated Symptoms: cough, shortness of breath, wheezing Allergies and Home Medications Allergies Coded Allergies: aspirin (Verified Allergy, Severe, ANAPHYLAXIS, 03/03/19) ibuprofen (Verified Allergy, Severe, ANAPHYLAXIS, 03/03/19) ketorolac (Verified Allergy, Severe, ANAPHYLAXIS, 03/03/19) tetanus and diphtheria toxoids (Unverified Allergy, Severe, ANAPHYLAXIS, 03/03/19) aloe (Verified Allergy, Mild, RASH, 03/03/19) latex (Verified Allergy, Mild, RASH, 03/03/19) OCCASIONALLY IS IRRITATING SKIN scopolamine (Verified Allergy, Mild, 03/03/19) black pepper (Verified Allergy, Unknown, 10/20/21) chocolate flavor (Verified Allergy, Unknown, 10/20/21) coconut (Verified Allergy, Unknown, 10/20/21) tomato (Verified Allergy, Unknown, Rash, 10/20/21) iodine (Verified Adverse Reaction, Unknown, 03/03/19) Patient states she got dizzy, diaphoretic and saw stars. Uncoded Allergies: ALOE VERA (Allergy, Unknown, 12/23/05) SILK SUTURES (Adverse Reaction, Unknown, BODY REJECTS SUTURES, 10/07/13) Patient Home Medication List Home Medication List Reviewed: Yes Albuterol Sulfate (Albuterol Sulfate) 2.5 Mg/0.5 Ml Vial.neb, 2.5 MG INH EVERY 2 HOURS PRN for SHORTNESS OF BREATH, (Reported) Entered as Reported by: SHAMIR SALAZAR on 10/20/21 1411 Alprazolam (Alprazolam) 1 Mg Tablet, 1 MG PO BID PRN for ANXIETY, (Reported) Entered as Reported by: JESÚS PHILLIPS on 03/07/15 1623 Ascorbic Acid (Vitamin C) 1,000 Mg Tablet, 1,000 MG PO DAILY, (Reported) Entered as Reported by: SHAMIR SALAZAR on 06/13/21 1034 Calcium Carbonate/Vitamin D3 (Calcium 600 + Vit D 200 Tablet) 1 Each Tablet, 1 EACH PO BID, (Reported) Entered as Reported by: SHAMIR SALAZAR on 06/13/21 1034 Cholecalciferol (Vitamin D3) (Vitamin D3) 25 Mcg Capsule, 25 MCG PO DAILY, (Reported) Entered as Reported by: SHAMIR SALAZAR on 06/13/21 1034 Furosemide (Furosemide) 40 Mg Tablet, 40 MG PO DAILY, (Reported) Entered as Reported by: YOSSI NELSON on 03/03/19 1340 Hydrocodone/Acetaminophen (Hydrocodone-Acetamin 10-325 mg) 1 Each Tablet, 1 EACH PO Q6H PRN for PAIN-MODERATE (5-7), (Reported) Entered as Reported by: SHAMIR SALAZAR on 06/13/21 1034 Hyoscyamine Sulfate (Hyoscyamine Sulfate) 0.125 Mg Tab.subl, 0.125 MG SL Q4H PRN for GI SPASMS, (Reported) Entered as Reported by: SHAMIR SALAZAR on 06/13/21 1034 Ipratropium [place] (Ipratropium [place]) 0.2 Mg/1 Ml Solution, 1 VIAL NEB TID, (Reported) Entered as Reported by: JESÚS PHILLIPS on 03/07/15 1640 Levofloxacin (Levofloxacin) 750 Mg Tablet, 750 MG PO DAILY Prescribed by: LEAH WOLF on 10/27/21 0748 Loratadine (Loratadine) 10 Mg Tablet, 10 MG PO DAILY, (Reported) Entered as Reported by: JESÚS PHILLIPS on 03/07/15 1623 Montelukast Sodium (Montelukast Sodium) 10 Mg Tablet, 10 MG PO HS, (Reported) Entered as Reported by: MELISSA MONTERO on 05/18/17 1103 Pantoprazole Sodium (Pantoprazole Sodium) 40 Mg Tablet.dr, 40 MG PO DAILY, (Repo rted) Entered as Reported by: JESÚS PHILLIPS on 03/07/15 162 Polyethylene Glycol 3350 (Miralax) 17 Gram Powd.pack, 17 GM PO DAILY PRN for CONSTIPATION-2ND LINE, (Reported) Entered as Reported by: SHAMIR SALAZAR on 10/20/21 1408 Potassium Chloride (K-Tab ER) 10 Meq Tablet.er, 20 MEQ PO BID, (Reported) Entered as Reported by: YOSSI NELSON on 05/28/19 0952 Promethazine HCl (Promethazine Tablet) 25 Mg Tablet, 25 MG PO Q8H PRN for NAUSEA/VOMITING-1ST LINE, (Reported) Entered as Reported by: SHAMIR SALAZAR on 10/20/21 1408 Warfarin Sodium (Jantoven) 4 Mg Tablet, 4 MG PO NORTH,TU,TH,SAT @1800, (Reported) Entered as Reported by: YOSSI NELSON on 05/28/19 0952 Warfarin Sodium (Jantoven) 5 Mg Tablet, 5 MG PO MO,WE,FR @1800, (Reported) Entered as Reported by: SHAMIR SALAZAR on 07/20/19 1602 Review of Systems Review of Systems Constitutional: see HPI EENTM: nose congestion Respiratory: cough, short of breath, wheezing Cardiovascular: no symptoms reported Gastrointestinal: no symptoms reported 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: no symptoms reported : No Musculoskeletal: no symptoms reported Skin: no symptoms reported Psychiatric/Neurological: Anxiety All Other Systems Reviewed Negative Unless Noted: Yes Past Ogmbwwe-Wnogcj-Adfezo Hx Patient Social History Smoking Status: Former Smoker Substance use?: No Alcohol Use?: No Pt feels they are or have been: No Immunizations Up To Date Tetanus Booster (TDap): Unknown PED Vaccines UTD: No Seasonal Allergies Seasonal Allergies: Yes Past Medical History Surgery/Hospitalization HX: Heart cath, hysterectomy, knee scope, ablasion on both knees, hernia reapir, copd, chf, asthma Surgeries: Yes (C/S X2, KNEE SCOPE, SHOULDER SCOPE, d&C, BILAT ULNAR NERVE, VENA CAVA FILTE) Abdominal, Adenoidectomy, Section, Gallbladder, Hysterectomy, Orthopedic, Tonsillectomy, Tubal Ligation, Vascular Surgery Respiratory: Yes (O2 AT HS 2-3L/NC AND PRN--NOCTURNAL HYPOXIA; ) Asthma, Pneumonia, Chronic Bronchitis, Pulmonary Embolism, COPD Currently Using CPAP: No Currently Using BIPAP: No Cardiac: Yes (MULTIPLE DVT'S AND P.E.'S ) Chronic Edema/Swelling, Deep Vein Thrombosis, High Cholesterol, Hypertension, Peripheral Vascular Neurological: Yes Neuropathy 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 Disorders: Yes [employer] History: Hysterectomy, Menopausal Sexually Transmitted Disease: No HIV/AIDS: No 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: Yes Kidney Infection, Bladder Infection, Kidney Stones Gastrointestinal: Yes (MULTIPLE HERNIA REPAIRS; MULTIPLE EGD'S /COLONOSCOPIES/POLYPECTOMIES) Abdominal Hernia, Gastroesophageal Reflux, Chronic Constipation, Chronic Diarrhea, Hepatitis, Polyps, Hiatal Hernia, Irritable Bowel Musculoskeletal: Yes (MULTIPLE ORTHO SURGERIES) Arthritis Endocrine: Yes ("PRE-DIABETIC" ) HEENT: Yes (NASAL POLYPS REMOVED) Cataract Loss of Vision: Denies Hearing Impairment: Denies Cancer: No Did You Recieve Any Treatments: No Psychosocial: Yes Anxiety Integumentary: Yes (CHRONIC VENOUS STASIS DERMATITIS AND ULCERS. CELLULTITIS OF LEGS;TATTOOS ) Blood Disorders: Yes (DVT'S/PE'S; PROBABLE PROTEIN C DEFICIENCY) Adverse Reaction/Blood Tranf: No (HAS HAD BLOOD WITH NO PROBLEMS) Family Medical History Alcoholism Alcoholism Arthritis Asthma 19 MOTHER Cancer G8 BROTHER G8 SISTER Cancer of colon Cancer of mouth Cardiovascular disease Cataract Cataracts Chest pain Colon cancer Completed stroke Diabetes mellitus Family history: Allergy Family history: Arthritis Family history: Asthma Family history: Cardiovascular disease Family history: Coronary thrombosis Family history: Diabetes mellitus G8 BROTHER G8 SISTER Family history: Gastrointestinal disease Family history: Hypertension Family history: Thyroid disorder Headache Hearing loss Heart disease 19 MOTHER History of - anemia History of - respiratory disease Hypercholesterolemia Hypercholesterolemia Hypertension 19 FATHER Infertile Malignant neoplasm of lung Myocardial infarction Myocardial infarction Psychotic disorder Respiratory disorder Stroke No Family History of: AIDS Abdominal aortic aneurysm Abdominal aortic aneurysm Fernando's disease Yoakum's disease Alzheimer's disease Aphasia Aphasia Congenital disease Congenital heart disease Congenital heart disease Congestive heart failure Coronary thrombosis Cystic fibrosis Cystic fibrosis Deafness or hearing loss Dementia Dementia Drug abuse Dysphagia Dysphasia Family history: Alzheimer's disease Family history: Breast disease Family history: Glaucoma Family history: Osteoporosis Fibrocystic disease of breast Gastroenteritis Glaucoma Headache disorder Hereditary disease History of - disorder History of drug abuse Human immunodeficiency virus (HIV) seropositivity Infertility Kidney disease Kidney disease Neoplasm Not obtainable due to adoption Osteoporosis Parkinson's disease Parkinson's disease Prostate cancer Psychosocial problem Seizure disorder Seizure disorder Severe allergy Thyroid disease Tuberculosis Tuberculosis Visual disorder Visual impairment Cancer, COPD, Vascular Disease SOCIAL HISTORY: -ETOH--RARE USE NOW, HISTORY OF HEAVY USE/ABUSE -DRUGS-HX OF IV COCAINE USE -SMOKED 1 PPD, QUIT 2000 PAST SURGICAL HISTORY: -C-SECTIONS 1981, 1985 -SHOULDER SURGERY 2007 -LEFT KNEE SURGERY 2008 -D&C 2008 -HYSTERECTOMY/BILATERAL SALPINGO-OOPHORECTOMY 2008 -VENA CAVA FILTER 2009 -EGD 2010 -VEIN STRIPPING IN LEGS 2012 -BILATERAL ELBOW/ULNAR NERVE SURGERY 2012 -MULTIPLE HERNIA REPAIRS -MULTIPLE EGD'S AND COLONOSCOPIES AND POLYPECTOMIES -TONSILLECTOMY/ADENOIDECTOMY -CHOLECYSTECTOMY -NASAL POLYPS REMOVED -BILATERAL LEG RADIOABLATION 06/2018 ADDITIONAL PAST MEDICAL HISTORY: -MULTIPLE DVT'S AND P.E.'S -CHRONIC VENOUS STASIS ULCERATIONS -LEG CELLULITIS Physical Exam Vital Signs - First Documented 12/24/21 10:18 Temp 36.8 Pulse 129 Resp 22 B/P (MAP) 140/99 (113) Pulse Ox 88 O2 Delivery Room Air O2 Flow Rate 3.00 Capillary Refill : Height: 5'5.00" Weight: 184lbs. 5.0oz. 83.725783fg; 38.74 BMI Method:Stated General Appearance: WD/WN, mild distress Eyes: Bilateral Eye Normal Inspection, Bilateral Eye PERRL, Bilateral Eye EOMI HEENT: PERRL/EOMI Neck: normal inspection Respiratory: respiratory distress (mild), accessory muscle use, crackles (coarse wheezes and scattered ronchi throughout), other (tachypnea) Cardiovascular: regular rate, rhythm, tachycardia (120's) Gastrointestinal: non tender, soft Extremities: normal range of motion, normal inspection Neurologic/Psychiatric: alert, normal mood/affect, oriented x 3 Skin: normal color, warm/dry Progress/Results/Core Measures Suspected Sepsis SIRS Temperature: Pulse: Respiratory Rate: Laboratory Tests 12/24/21 10:24: White Blood Count 9.1 Blood Pressure / Mean: Laboratory Tests 12/24/21 10:24: Creatinine 0.72, INR Comment 2.0H, Platelet Count 312 Results/Orders Lab Results Laboratory Tests Test 12/24/21 10:24 Range/Units White Blood Count 9.1 4.3-11.0 10^3/uL Red Blood Count 4.94 3.80-5.11 10^6/uL Hemoglobin 13.5 11.5-16.0 g/dL Hematocrit 43 35-52 % Mean Corpuscular Volume 87 80-99 fL Mean Corpuscular Hemoglobin 27 25-34 pg Mean Corpuscular Hemoglobin Concent 32 32-36 g/dL Red Cell Distribution Width 16.4 H 10.0-14.5 % Platelet Count 312 130-400 10^3/uL Mean Platelet Volume 8.7 L 9.0-12.2 fL Immature Granulocyte % (Auto) 0 % Neutrophils (%) (Auto) 68 42-75 % Lymphocytes (%) (Auto) 24 12-44 % Monocytes (%) (Auto) 7 0-12 % Eosinophils (%) (Auto) 1 0-10 % Basophils (%) (Auto) 0 0-10 % Neutrophils # (Auto) 6.1 1.8-7.8 10^3/uL Lymphocytes # (Auto) 2.2 1.0-4.0 10^3/uL Monocytes # (Auto) 0.7 0.0-1.0 10^3/uL Eosinophils # (Auto) 0.1 0.0-0.3 10^3/uL Basophils # (Auto) 0.0 0.0-0.1 10^3/uL Immature Granulocyte # (Auto) 0.0 0.0-0.1 10^3/uL Prothrombin Time 23.3 H 12.2-14.7 SEC INR Comment 2.0 H 0.8-1.4 Sodium Level 144 135-145 MMOL/L Potassium Level 3.5 L 3.6-5.0 MMOL/L Chloride Level 108 H 98-107 MMOL/L Carbon Dioxide Level 23 21-32 MMOL/L Anion Gap 13 5-14 MMOL/L Blood Urea Nitrogen 15 7-18 MG/DL Creatinine 0.72 0.60-1.30 MG/DL Estimat Glomerular Filtration Rate 94 BUN/Creatinine Ratio 21 Glucose Level 144 H 70-105 MG/DL Calcium Level 9.3 8.5-10.1 MG/DL Procalcitonin 0.02 <0.10 NG/ML My Orders Orders - ROSALIND ANDREA MD Ed Iv/Invasive Line Start (12/24/21 10:37) Cbc With Automated Diff (12/24/21 10:37) Basic Metabolic Panel (12/24/21 10:37) Chest 1 View, Ap/Pa Only (12/24/21 10:37) Procalcitonin (Pct) (12/24/21 10:37) Protime With Inr (12/24/21 10:39) Vital Signs/I&O 12/24/21 12/24/21 10:18 10:18 Temp 36.8 Pulse 129 Resp 22 B/P (MAP) 140/99 (113) Pulse Ox 88 O2 Delivery Room Air O2 Flow Rate 3.00 7.00 Capillary Refill : Progress Note : Time: 12:40 Progress Note rechecked after bringing simple face mask Oxygen from 10L to 5 and her sats are 94%. put her down to 2.5L and she promptly dropped to 90%. (lungs sound better). She states she noticed when she got up to the bedside commode she became even more SOB and sats dropped into the mid 80'S. She is very apprehensive about going home, as she normally only wears O2 at night and has no one to stay with her. Diagnostic Imaging Diagonstic Imaging: Xray Plain Films/CT/US/NM/MRI: chest Comments [facility]. [place], [place] NAME: SUJEY FELIZ [facility] REC#: [id number] PT STATUS: REG ER : 1960 PHYSICIAN: ROSALIND ANDREA MD ADMIT DATE: 12/24/21/ER Draft Date of Exam:12/24/21 CHEST 1 VIEW, AP/PA ONLY Indication: Shortness of breath. COMPARISON: 10/20/2021. FINDINGS: There is flattened diaphragms as well as some chronic interstitial changes present within the lungs. There appears to be discoid atelectasis at the right base versus right basilar scar. There is no new airspace consolidation or evidence of a large effusion. Heart and Mediastinal contours are stable. IMPRESSION: Stable appearance of the chest. Probable features of underlying COPD. No new or acute cardiopulmonary process evident. Dictated on workstation # [id number] Dict: 12/24/21 1054 Trans: 12/24/21 1101 [facility] [id number] Interpreted by: YA GONZALES MD Electronically signed by: Departure Communication (Admissions) Time/Spoke to Admitting Phy: 13:[address] Mota - acceptjabier observation to medical floor Impression Primary Impression: Hypoxia Additional Impression: acute excerbation of asthma Disposition: ADMITTED INPATIENT Condition: Stable Admissions Decision to Admit Reason: Admit from ER (General) Decision to Admit/Date: Dec 24, 2021 Time/Decision to Admit Time: 12:56 Departure-Patient Inst. Referrals: LEAH WOLF MD (PCP/Family) Primary Care Physician ROSALIND ANDREA MD Dec 24, 2021 10:39
[2021-12-24 10:43] LABS: BASOPHILS % (AUTO) 0 % (0-10); EOSINOPHILS # (AUTO) 0.1 10^3/uL (0.0-0.3); EOSINOPHILS % (AUTO) 1 % (0-10); HEMATOCRIT 43 % (35-52); HEMOGLOBIN 13.5 g/dL (11.5-16.0); LYMPHOCYTES # (AUTO) 2.2 10^3/uL (1.0-4.0); LYMPHOCYTES % (AUTO) 24 % (12-44); MEAN CORPUSCULAR HEMOGLOBIN 27 pg (25-34); MEAN CORPUSCULAR HGB CONC 32 g/dL (32-36); MEAN CORPUSCULAR VOLUME 87 fL (80-99); MEAN PLATELET VOLUME 8.7 fL (9.0-12.2); MONOCYTES # (AUTO) 0.7 10^3/uL (0.0-1.0); MONOCYTES % (AUTO) 7 % (0-12); NEUTROPHILS # (AUTO) 6.1 10^3/uL (1.8-7.8); NEUTROPHILS % (AUTO) 68 % (42-75); PLATELET COUNT 312 10^3/uL (130-400); WHITE BLOOD COUNT 9.1 10^3/uL (4.3-11.0)
[2021-12-24 10:44] LABS: POTASSIUM 3.5 MMOL/L (3.6-5.0)
[2021-12-24 10:45] LABS: CALCIUM 9.3 MG/DL (8.5-10.1)
[2021-12-24 10:48] LABS: PROTHROMBIN TIME PATIENT 23.3 SEC (12.2-14.7)
[2021-12-24 10:49] LABS: CREATININE SERUM 0.72 MG/DL (0.60-1.30)
--- NOTE | 2021-12-24 11:01 | Diagnostic Imaging Report ---
Indication: Shortness of breath. COMPARISON: 10/20/2021. FINDINGS: There is flattened diaphragms as well as some chronic interstitial changes present within the lungs. There appears to be discoid atelectasis at the right base versus right basilar scar. There is no new airspace consolidation or evidence of a large effusion. Heart and Mediastinal contours are stable. IMPRESSION: Stable appearance of the chest. Probable features of underlying COPD. No new or acute cardiopulmonary process evident. Dictated by: Dictated on workstation # [id number]
[2021-12-24] MEDS ORDERED: methylPREDNISolone 125 MG (Solu-MEDROL) VIAL IVP ONE (13:30)
[2021-12-24] MEDS ORDERED: RT-ALBUTEROL SULF 2.5 MG/3 ML PRE-MIX VIAL INH ONE (16:30)
[2021-12-24 19:49] VITALS: BP 131/82
[2021-12-24 19:54] VITALS: BP 131/82
[2021-12-24] MEDS ORDERED: RT-ALBUTEROL/IPRATROPIUM 3 ML (DUONEB) VIAL INH PRN (20:30)
[2021-12-24] MEDS: methylPREDNISolone 125 MG (Solu-MEDROL) VIAL IV SCH (20:38)
[2021-12-24] MEDS: RT-ALBUTEROL/IPRATROPIUM 3 ML (DUONEB) VIAL INH SCH (22:54)
[2021-12-24 23:22] VITALS: BP 113/76
[2021-12-24] MEDS: CATHETER FLUSH 10 ML SYR IVP SCH (23:32)
[2021-12-25] MEDS: RT-ALBUTEROL/IPRATROPIUM 3 ML (DUONEB) VIAL INH SCH ×6 (02:49→21:45)
[2021-12-25] MEDS: methylPREDNISolone 125 MG (Solu-MEDROL) VIAL IV SCH ×4 (03:43→20:58)
[2021-12-25 04:09] VITALS: BP 128/70
[2021-12-25] MEDS: CATHETER FLUSH 10 ML SYR IVP SCH ×3 (05:55→20:59)
[2021-12-25 07:42] VITALS: BP 138/82
--- NOTE | 2021-12-25 08:08 | History & Physicial ---
History of Present Illness History of Present Illness Reason for visit/HPI 61-year-old female presents via [facility] during the afternoon of December 24, 2021 after having acute shortness of breath. She has known COPD and is currently on low-dose prednisone on a regular basis. Within the last week she was started on a tapering dosage of higher dose prednisone. She believes that her apartment is causing some of her exacerbation due to the suspected allergens. She reports there is been leaking and her apartment with a musty smell. She denies any fever but her phlegm that she is coughing up is now turning green in coloration. She hasn't had any fever as of yet. Date of Admission Dec 24, 2021 at 13:26 Date Seen by a Provider: Dec 25, 2021 Time Seen by a Provider: 07:15 I consulted on this patient on 12/25/21 08:03 Attending Physician Jay Wolf MD Admitting Physician Admitting Physician: Aristeo Mota MD Attending Physician: Aristeo Mota MD Consult Allergies and Home Medications Allergies Coded Allergies: aspirin (Verified Allergy, Severe, ANAPHYLAXIS, 03/03/19) ibuprofen (Verified Allergy, Severe, ANAPHYLAXIS, 03/03/19) ketorolac (Verified Allergy, Severe, ANAPHYLAXIS, 03/03/19) tetanus and diphtheria toxoids (Unverified Allergy, Severe, ANAPHYLAXIS, 03/03/19) aloe (Verified Allergy, Mild, RASH, 03/03/19) latex (Verified Allergy, Mild, RASH, 03/03/19) OCCASIONALLY IS IRRITATING SKIN scopolamine (Verified Allergy, Mild, 03/03/19) black pepper (Verified Allergy, Unknown, 10/20/21) chocolate flavor (Verified Allergy, Unknown, 10/20/21) coconut (Verified Allergy, Unknown, 10/20/21) tomato (Verified Allergy, Unknown, Rash, 10/20/21) iodine (Verified Adverse Reaction, Unknown, 03/03/19) Patient states she got dizzy, diaphoretic and saw stars. Uncoded Allergies: ALOE VERA (Allergy, Unknown, 12/23/05) SILK SUTURES (Adverse Reaction, Unknown, BODY REJECTS SUTURES, 10/07/13) Patient Home Medication List Home Medication List Reviewed: Yes Albuterol Sulfate (Albuterol Sulfate) 2.5 Mg/0.5 Ml Vial.neb, 2.5 MG INH EVERY 2 HOURS PRN for SHORTNESS OF BREATH, (Reported) Entered as Reported by: SHAMIR SALAZAR on 10/20/21 1411 Alprazolam (Alprazolam) 1 Mg Tablet, 1 MG PO BID PRN for ANXIETY, (Reported) Entered as Reported by: JESÚS PHILLIPS on 03/07/15 1623 Ascorbic Acid (Vitamin C) 1,000 Mg Tablet, 1,000 MG PO DAILY, (Reported) Entered as Reported by: SHAMIR SALAZAR on 06/13/21 1034 Calcium Carbonate/Vitamin D3 (Calcium 600 + Vit D 200 Tablet) 1 Each Tablet, 1 EACH PO BID, (Reported) Entered as Reported by: SHAMIR SALAZAR on 06/13/21 1034 Cholecalciferol (Vitamin D3) (Vitamin D3) 25 Mcg Capsule, 25 MCG PO DAILY, (Reported) Entered as Reported by: SHAMIR SALAZAR on 06/13/21 1034 Furosemide (Furosemide) 40 Mg Tablet, 40 MG PO DAILY, (Reported) Entered as Reported by: YOSSI NELSON on 03/03/19 1340 Hydrocodone/Acetaminophen (Hydrocodone-Acetamin 10-325 mg) 1 Each Tablet, 1 EACH PO Q6H PRN for PAIN-MODERATE (5-7), (Reported) Entered as Reported by: SHAMIR SALAZAR on 06/13/21 1034 Hyoscyamine Sulfate (Hyoscyamine Sulfate) 0.125 Mg Tab.subl, 0.125 MG SL Q4H PRN for GI SPASMS, (Reported) Entered as Reported by: SHAMIR SALAZAR on 06/13/21 1034 Ipratropium Castine (Ipratropium Castine) 0.2 Mg/1 Ml Solution, 1 VIAL NEB TID, (Reported) Entered as Reported by: JESÚS PHILLIPS on 03/07/15 1640 Levofloxacin (Levofloxacin) 750 Mg Tablet, 750 MG PO DAILY Prescribed by: JAY WOLF on 10/27/21 0748 Loratadine (Loratadine) 10 Mg Tablet, 10 MG PO DAILY, (Reported) Entered as Reported by: JESÚS PHILLIPS on 03/07/15 1623 Montelukast Sodium (Montelukast Sodium) 10 Mg Tablet, 10 MG PO HS, (Reported) Entered as Reported by: MELISSA MONTERO on 05/18/17 1103 Pantoprazole Sodium (Pantoprazole Sodium) 40 Mg Tablet.dr, 40 MG PO DAILY, (Reported) Entered as Reported by: JESÚS PHILLIPS on 03/07/15 1623 Polyethylene Glycol 3350 (Miralax) 17 Gram Powd.pack, 17 GM PO DAILY PRN for CONSTIPATION-2ND LINE, (Reported) Entered as Reported by: SHAMIR SALAZAR on 10/20/21 1408 Potassium Chloride (K-Tab ER) 10 Meq Tablet.er, 20 MEQ PO BID, (Reported) Entered as Reported by: YOSSI NELSON on 05/28/19 0952 Promethazine HCl (Promethazine Tablet) 25 Mg Tablet, 25 MG PO Q8H PRN for N AUSEA/VOMITING-1ST LINE, (Reported) Entered as Reported by: SHAMIR SALAZAR on 10/20/21 1408 Warfarin Sodium (Jantoven) 4 Mg Tablet, 4 MG PO NORTH,,TH,SAT @1800, (Reported) Entered as Reported by: YOSSI NELSON on 05/28/19 0952 Warfarin Sodium (Jantoven) 5 Mg Tablet, 5 MG PO MO,WE,FR @1800, (Reported) Entered as Reported by: SHAMIR SALAZAR on 07/20/19 1602 Past Psbboss-Grpqqc-Hkxydg Hx Patient Social History Marrital Status: Drug of Choice: + IV COCAINE USE Smoking Status: Former Smoker Former Smoker, Quit: Nov 17, 2000 2nd Hand Smoke Exposure: No Recent Hopitalizations: No (05/21/19 knee sx) Have you traveled recently?: No Alcohol Use?: No Pt feels they are or have been: No Immunizations Up To Date Tetanus Booster (TDap): Unknown Pediatric: No Date of Pneumonia Vaccine: Sep 05, 2016 Date of Influenza Vaccine: Mar 11, 2012 Seasonal Allergies Seasonal Allergies: Yes Surgeries Yes (C/S X2, KNEE SCOPE, SHOULDER SCOPE, d&C, BILAT ULNAR NERVE, VENA CAVA FILTE) Abdominal, Adenoidectomy, Section, Gallbladder, Hysterectomy, Orthopedic, Tonsillectomy, Tubal Ligation, Vascular Surgery Respiratory Yes (O2 AT HS 2-3L/NC AND PRN--NOCTURNAL HYPOXIA; ) Currently Using CPAP: No Currently Using BIPAP: No Cardiovascular Yes (MULTIPLE DVT'S AND P.E.'S ) Chronic Edema/Swelling, Deep Vein Thrombosis, High Cholesterol, Hypertension, Peripheral Vascular Neurological Yes Neuropathy 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 System Hx 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 Disorders: Yes Sexually Transmitted Disease: No HIV/AIDS: No 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, 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 Yes Kidney Infection, Bladder Infection, Kidney Stones Gastrointestinal Yes (MULTIPLE HERNIA REPAIRS; MULTIPLE EGD'S /COLONOSCOPIES/POLYPECTOMIES) Abdominal Hernia, Gastroesophageal Reflux, Chronic Constipation, Chronic Diarrhea, Hepatitis, Polyps, Hiatal Hernia, Irritable Bowel Musculoskeletal Yes (MULTIPLE ORTHO SURGERIES) Arthritis Endocrine History of Endocrine Disorders: Yes ("PRE-DIABETIC" ) HEENT History of HEENT Disorders: Yes (NASAL POLYPS REMOVED) HEENT Disorders: Cataract Loss of Vision: Denies Hearing Impairment: Denies Cancer No Did You Recieve Any Treatments: No Psychosocial History of Psychiatric Problem: Yes Behavioral Health Disorders: Anxiety Integumentary History of Skin or Integumenta: Yes (CHRONIC VENOUS STASIS DERMATITIS AND ULCERS. CELLULTITIS OF LEGS;TATTOOS ) Blood Transfusions History of Blood Disorders: Yes (DVT'S/PE'S; PROBABLE PROTEIN C DEFICIENCY) Adverse Reaction to a Blood Tr: No (HAS HAD BLOOD WITH NO PROBLEMS) Family Medical History Significant Family History: Cancer, COPD, Vascular Disease Other Significan Family Hx: SOCIAL HISTORY: -ETOH--RARE USE NOW, HISTORY OF HEAVY USE/ABUSE -DRUGS-HX OF IV COCAINE USE -SMOKED 1 PPD, QUIT 2000 PAST SURGICAL HISTORY: -C-SECTIONS 1981, 1985 -SHOULDER SURGERY 2007 -LEFT KNEE SURGERY 2008 -D&C 2008 -HYSTERECTOMY/BILATERAL SALPINGO-OOPHORECTOMY 2008 -VENA CAVA FILTER 2009 -EGD 2010 -VEIN STRIPPING IN LEGS 2012 -BILATERAL ELBOW/ULNAR NERVE SURGERY 2012 -MULTIPLE HERNIA REPAIRS -MULTIPLE EGD'S AND COLONOSCOPIES AND POLYPECTOMIES -TONSILLECTOMY/ADENOIDECTOMY -CHOLECYSTECTOMY -NASAL POLYPS REMOVED -BILATERAL LEG RADIOABLATION 06/2018 ADDITIONAL PAST MEDICAL HISTORY: -MULTIPLE DVT'S AND P.E.'S -CHRONIC VENOUS STASIS ULCERATIONS -LEG CELLULITIS Family Hx: Alcoholism Alcoholism Arthritis Asthma 19 MOTHER Cancer G8 BROTHER G8 SISTER Cancer of colon Cancer of mouth Cardiovascular disease Cataract Cataracts Chest pain Colon cancer Completed stroke Diabetes mellitus Family history: Allergy Family history: Arthritis Family history: Asthma Family history: Cardiovascular disease Family history: Coronary thrombosis Family history: Diabetes mellitus G8 BROTHER G8 SISTER Family history: Gastrointestinal disease Family history: Hypertension Family history: Thyroid disorder Headache Hearing loss Heart disease 19 MOTHER History of - anemia History of - respiratory disease Hypercholesterolemia Hypercholesterolemia Hypertension 19 FATHER Infertile Malignant neoplasm of lung Myocardial infarction Myocardial infarction Psychotic disorder Respiratory disorder Stroke No Family History of: AIDS Abdominal aortic aneurysm Abdominal aortic aneurysm [place]'s disease Fernando's disease Alzheimer's disease Aphasia Aphasia Congenital disease Congenital heart disease Congenital heart disease Congestive heart failure Coronary thrombosis Cystic fibrosis Cystic fibrosis Deafness or hearing loss Dementia Dementia Drug abuse Dysphagia Dysphasia Family history: Alzheimer's disease Family history: Breast disease Family history: Glaucoma Family history: Osteoporosis Fibrocystic disease of breast Gastroenteritis Glaucoma Headache disorder Hereditary disease History of - disorder History of drug abuse Human immunodeficiency virus (HIV) seropositivity Infertility Kidney disease Kidney disease Neoplasm Not obtainable due to adoption Osteoporosis Parkinson's disease Parkinson's disease Prostate cancer Psychosocial problem Seizure disorder Seizure disorder Severe allergy Thyroid disease Tuberculosis Tuberculosis Visual disorder Visual impairment Review of Systems Constitutional: see HPI Physical Exam Vital Signs Vital Signs - First Documented 12/24/21 10:18 Temp 36.8 Pulse 129 Resp 22 B/P (MAP) 140/99 (113) Pulse Ox 88 O2 Delivery Room Air O2 Flow Rate 3.00 Capillary Refill : Less Than 3 Seconds Height, Weight, BMI Height: 5'5.00" Weight: 184lbs. 5.0oz. 83.689300ml; 35.47 BMI Method:Stated General Appearance: No Apparent Distress (at the time of my examination) Eyes: Bilateral Eye Normal Inspection HEENT: Pharynx Normal Neck: Supple Respiratory: Decreased Breath Sounds, Rales (few in bases), Wheezing (scattered throughout) Cardiovascular: Regular Rate, Rhythm Gastrointestinal: Soft Rectal: Deferred Back: Normal Inspection Extremity: Normal Capillary Refill Neurologic/Psychiatric: Alert, Oriented x3 Comments [facility] [place], [place] NAME: TRAYSUJEY [facility] REC#: [id number] PT STATUS: REG ER : 1960 PHYSICIAN: ROSALIND ANDREA MD ADMIT DATE: 12/24/21/ER Signed Date of Exam:12/24/21 CHEST 1 VIEW, AP/PA ONLY Indication: Shortness of breath. COMPARISON: 10/20/2021. FINDINGS: There is flattened diaphragms as well as some chronic interstitial changes present within the lungs. There appears to be discoid atelectasis at the right base versus right basilar scar. There is no new airspace consolidation or evidence of a large effusion. Heart and Mediastinal contours are stable. IMPRESSION: Stable appearance of the chest. Probable features of underlying COPD. No new or acute cardiopulmonary process evident. Dictated by: Dictated on workstation # [id number] Dict: 12/24/21 1054 Trans: 12/24/21 1122 [facility] [id number] Interpreted by: YA GONZALES MD Electronically signed by: YA GONZALES MD 12/24/21 1122 Assessment/Plan Assessment and Plan 1. Acute exacerbation of COPD -patient has been initiated on IV Solu-Medrol -dose of Rocephin due to the discoloration of her phlegm and propensity for pneumonia 2. Hypoxia due to #1 -Supplemental oxygen by nasal cannula 3. History of tobaccoism Admission Diagnosis 1. Acute exacerbation of COPD 2. Hypoxia due to #1 3. History of tobaccoism Admission Status: Observation Reason for Inpatient Admission: IV Solu-Medrol JAY WOLF MD Dec 25, 2021 08:08
[2021-12-25] MEDS ORDERED: cefTRIAXone 1 GM PRE-MIX 50 ML IV ONE (08:15)
[2021-12-25 11:02] VITALS: BP 121/71
[2021-12-25] MEDS ORDERED: ACETAMINOPHEN 325 MG TABLET PO PRN (11:30)
[2021-12-25] MEDS: guaiFENesin/CODEINE (ROBITUSSIN AC) 10ML UDC PO PRN ×2 (11:52→16:13)
[2021-12-25] MEDS ORDERED: ALBU2.5V4 INH (15:55)
[2021-12-25] MEDS ORDERED: PRD20T PO (15:57)
[2021-12-25] MEDS ORDERED: CEFP500T4 PO (15:58)
[2021-12-25 16:00] VITALS: BP 138/74
[2021-12-25] MEDS ORDERED: RT-ALBUINH IH (16:00)
[2021-12-25] MEDS ORDERED: HYDR-3817 PO (16:05)
[2021-12-25] MEDS ORDERED: ACET-2267 PO (16:06)
[2021-12-25] MEDS ORDERED: ACETAMINOPHEN 500 MG TAB (TYLENOL) PO PRN (16:30)
[2021-12-25] MEDS ORDERED: polyethylene glycoL POWDER 17 GM (MIRALAX) PACK PO PRN (16:30)
[2021-12-25] MEDS ORDERED: ALPRAZolam 1 MG (XANAX) TAB PO PRN (16:30)
[2021-12-25] MEDS ORDERED: RT-ALBUTEROL SULF 2.5 MG/3 ML PRE-MIX VIAL INH PRN (16:30)
[2021-12-25] MEDS ORDERED: HYDROcodone/APAP 7.5 MG/325 MG (LORTAB, LORCET PLUS) TABLET PO PRN (16:30)
[2021-12-25] MEDS ORDERED: PROMETHAZINE 25 MG (PHENERGAN) TAB PO PRN (16:30)
[2021-12-25] MEDS ORDERED: warFARin 5 MG (COUMADIN) TAB PO SCH (18:00)
[2021-12-25] MEDS: KCL 10 MEQ TAB (MICRO K) PO SCH (18:22)
[2021-12-25 20:07] VITALS: BP 128/78
[2021-12-25] MEDS ORDERED: MONTELUKAST 10 MG (SINGULAIR) TAB PO SCH (21:00)
[2021-12-26 00:12] VITALS: BP 141/71
[2021-12-26] MEDS: RT-ALBUTEROL/IPRATROPIUM 3 ML (DUONEB) VIAL INH SCH ×3 (03:01→11:02)
[2021-12-26] MEDS: methylPREDNISolone 125 MG (Solu-MEDROL) VIAL IV SCH ×2 (03:08→08:30)
[2021-12-26] MEDS: CATHETER FLUSH 10 ML SYR IVP SCH (03:09)
[2021-12-26] MEDS: guaiFENesin/CODEINE (ROBITUSSIN AC) 10ML UDC PO PRN ×2 (03:30→08:35)
[2021-12-26 03:45] VITALS: BP 123/76
[2021-12-26] MEDS ORDERED: GFCD10B PO (07:43)
--- NOTE | 2021-12-26 07:52 | Short Stay Summary ---
History of Present Illness History of Present Illness Reason for visit/HPI 61-year-old female presents via [facility] during the afternoon of December 24, 2021 after having acute shortness of breath. She has known COPD and is currently on low-dose prednisone on a regular basis. Within the last week she was started on a tapering dosage of higher dose prednisone. She believes that her apartment is causing some of her exacerbation due to the suspected allergens. She reports there is been leaking and her apartment with a musty smell. She denies any fever but her phlegm that she is coughing up is now turning green in coloration. She hasn't had any fever as of yet. Date of Admission Dec 24, 2021 at 13:26 Date of Discharge December 26, 2021 Time Seen by Provider: 07:10 Attending Physician Jay Wolf MD Admitting Physician Admitting Physician: Aristeo Mota MD Attending Physician: Aristeo Mota MD Consult Allergies and Home Medications Allergies Coded Allergies: aspirin (Verified Allergy, Severe, ANAPHYLAXIS, 03/03/19) ibuprofen (Verified Allergy, Severe, ANAPHYLAXIS, 03/03/19) ketorolac (Verified Allergy, Severe, ANAPHYLAXIS, 03/03/19) tetanus and diphtheria toxoids (Unverified Allergy, Severe, ANAPHYLAXIS, 03/03/19) aloe (Verified Allergy, Mild, RASH, 03/03/19) latex (Verified Allergy, Mild, RASH, 03/03/19) OCCASIONALLY IS IRRITATING SKIN scopolamine (Verified Allergy, Mild, 03/03/19) black pepper (Verified Allergy, Unknown, 10/20/21) chocolate flavor (Verified Allergy, Unknown, 10/20/21) coconut (Verified Allergy, Unknown, 10/20/21) tomato (Verified Allergy, Unknown, Rash, 10/20/21) iodine (Verified Adverse Reaction, Unknown, 03/03/19) Patient states she got dizzy, diaphoretic and saw stars. Uncoded Allergies: ALOE VERA (Allergy, Unknown, 12/23/05) SILK SUTURES (Adverse Reaction, Unknown, BODY REJECTS SUTURES, 10/07/13) Patient Home Medication List Home Medication List Reviewed: Yes Acetaminophen (Tylenol Extra Strength) 500 Mg Tablet, 1,000 MG PO Q8H PRN for PAIN-MILD (1-4), (Reported) Entered as Reported by: VERNA KIM on 12/25/21 1606 Last Action: Continued Albuterol Sulfate (Albuterol Sulfate) 2.5 Mg/3 Ml (0.083 %) Vial.neb, 2.5 MG INH TID PRN for SHORTNESS OF BREATH, (Reported) Entered as Reported by: VERNA KIM on 12/25/21 1555 Last Action: Continued Albuterol Sulfate (Proair Hfa) 1 Puff Puff, 2 PUFF IH Q4H PRN for SHORTNESS OF BREATH, (Reported) Entered as Reported by: VERNA KIM on 12/25/21 1600 Last Action: Reviewed Alprazolam (Alprazolam) 1 Mg Tablet, 1 MG PO BID PRN for ANXIETY, (Reported) Entered as Reported by: JESÚS PHILLIPS on 03/07/15 1623 Last Action: Continued Ascorbic Acid (Vitamin C) 1,000 Mg Tablet, 1,000 MG PO DAILY, (Reported) Entered as Reported by: SHAMIR SALAZAR on 06/13/21 1034 Last Action: Held Calcium Carbonate/Vitamin D3 (Calcium 600 + Vit D 200 Tablet) 1 Each Tablet, 1 EACH PO BID, (Reported) Entered as Reported by: SHAMIR SALAZAR on 06/13/21 1034 Last Action: Held Cefprozil (Cefprozil) 500 Mg Tablet, 500 MG PO BID, (Reported) Entered as Reported by: VERNA KMI on 12/25/21 1558 Last Action: Held Cholecalciferol (Vitamin D3) (Vitamin D3) 25 Mcg Capsule, 25 MCG PO DAILY, ( Reported) Entered as Reported by: SHAMIR SALAZAR on 06/13/21 1034 Last Action: Held Furosemide (Furosemide) 40 Mg Tablet, 40 MG PO DAILY, (Reported) Entered as Reported by: YOSSI NELSON on 03/03/19 1340 Last Action: Continued Hydrocodone/Acetaminophen (Hydrocodone-Acetamin 7.5-325) 7.5 Mg-325 Mg Tablet, 1 EACH PO Q6H PRN for PAIN-MODERATE (5-7), (Reported) Entered as Reported by: VERNA KIM on 12/25/21 1605 Last Action: Continued Hyoscyamine Sulfate (Hyoscyamine Sulfate) 0.125 Mg Tab.subl, 0.125 MG SL Q4H PRN for GI SPASMS, (Reported) Entered as Reported by: SHAMIR SALAZAR on 06/13/21 1034 Last Action: Held Ipratropium Ebony (Ipratropium Ebony) 0.2 Mg/1 Ml Solution, 1 VIAL NEB TID, (Reported) Entered as Reported by: JESÚS PHILLIPS on 03/07/15 1640 Last Action: Reviewed Loratadine (Loratadine) 10 Mg Tablet, 10 MG PO DAILY, (Reported) Entered as Reported by: JESÚS PHILLIPS on 03/07/15 162 Last Action: Continued Montelukast Sodium (Montelukast Sodium) 10 Mg Tablet, 10 MG PO HS, (Reported) Entered as Reported by: MELISSA MONTERO on 05/18/17 1103 Last Action: Continued Pantoprazole Sodium (Pantoprazole Sodium) 40 Mg Tablet.dr, 40 MG PO DAILY, (Reported) Entered as Reported by: JESÚS PHILLIPS on 03/07/151622 Last Action: Continued Polyethylene Glycol 3350 (Miralax) 17 Gram Powd.pack, 17 GM PO DAILY PRN for CONSTIPATION-2ND LINE, (Reported) Entered as Reported by: SHAMIR SALAZAR on 10/20/21 1408 Last Action: Continued Potassium Chloride (K-Tab ER) 10 Meq Tablet.er, 20 MEQ PO BID, (Reported) Entered as Reported by: YOSSI NELSON on 05/28/19 09 Last Action: Continued Prednisone (Prednisone) 20 Mg Tab, 20 MG PO UD, (Reported) Entered as Reported by: VERNA KIM on 12/25/21 1557 Last Action: Held Promethazine HCl (Promethazine Tablet) 25 Mg Tablet, 25 MG PO Q8H PRN for NAUSEA/VOMITING-1ST LINE, (Reported) Entered as Reported by: SHAMIR SALAZAR on 10/20/21 1408 Last Action: Continued Warfarin Sodium (Jantoven) 4 Mg Tablet, 4 MG PO NORTH,,TH,SAT @1800, (Reported) Entered as Reported by: YOSSI NELSON on 05/28/19951 Last Action: Continued Warfarin Sodium (Jantoven) 5 Mg Tablet, 5 MG PO MO,,FR @1800, (Reported) Entered as Reported by: SHAMIR SALAZAR on 07/20/19 1602 Last Action: Continued Discontinued Medications Albuterol Sulfate (Albuterol Sulfate) 2.5 Mg/0.5 Ml Vial.neb, 2.5 MG INH EVERY 2 HOURS PRN for SHORTNESS OF BREATH, (Reported) Discontinued Reason: Prescription changed Entered as Reported by: SHAMIR SALAZAR on 10/20/21 1411 Past Dkapawi-Safehq-Iqougw Hx Patient Social History Marrital Status: Drug of Choice: + IV COCAINE USE Smoking Status: Former Smoker Former Smoker, Quit: Nov 17, 2000 2nd Hand Smoke Exposure: No Recent Hopitalizations: No (05/21/19 knee sx) Have you traveled recently?: No Alcohol Use?: No Pt feels they are or have been: No Immunizations Up To Date Tetanus Booster (TDap): Unknown Pediatric: No Date of Pneumonia Vaccine: Sep 05, 2016 Date of Influenza Vaccine: Mar 11, 2012 Seasonal Allergies Seasonal Allergies: Yes Surgeries Yes (C/S X2, KNEE SCOPE, SHOULDER SCOPE, d&C, BILAT ULNAR NERVE, VENA CAVA FILTE) Abdominal, Adenoidectomy, Section, Gallbladder, Hysterectomy, Orthopedic, Tonsillectomy, Tubal Ligation, Vascular Surgery Respiratory Yes (O2 AT HS 2-3L/NC AND PRN--NOCTURNAL HYPOXIA; ) Currently Using CPAP: No Currently Using BIPAP: No Cardiovascular Yes (MULTIPLE DVT'S AND P.E.'S ) Chronic Edema/Swelling, Deep Vein Thrombosis, High Cholesterol, Hypertension, Peripheral Vascular Neurological Yes Neuropathy 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 System Hx 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 Disorders: Yes Sexually Transmitted Disease: No HIV/AIDS: 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, 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 Yes Kidney Infection, Bladder Infection, Kidney Stones Gastrointestinal Yes (MULTIPLE HERNIA REPAIRS; MULTIPLE EGD'S /COLONOSCOPIES/POLYPECTOMIES) Abdominal Hernia, Gastroesophageal Reflux, Chronic Constipation, Chronic Diarrhea, Hepatitis, Polyps, Hiatal Hernia, Irritable Bowel Musculoskeletal Yes (MULTIPLE ORTHO SURGERIES) Arthritis Endocrine History of Endocrine Disorders: Yes ("PRE-DIABETIC" ) HEENT History of HEENT Disorders: Yes (NASAL POLYPS REMOVED) HEENT Disorders: Cataract Loss of Vision: Denies Hearing Impairment: Denies Cancer No Did You Recieve Any Treatments: No Psychosocial History of Psychiatric Problem: Yes Behavioral Health Disorders: Anxiety Integumentary History of Skin or Integumenta: Yes (CHRONIC VENOUS STASIS DERMATITIS AND ULCERS. CELLULTITIS OF LEGS;TATTOOS ) Blood Transfusions History of Blood Disorders: Yes (DVT'S/PE'S; PROBABLE PROTEIN C DEFICIENCY) Adverse Reaction to a Blood Tr: No (HAS HAD BLOOD WITH NO PROBLEMS) Family Medical History Significant Family History: Cancer, COPD, Vascular Disease Other Significan Family Hx: SOCIAL HISTORY: -ETOH--RARE USE NOW, HISTORY OF HEAVY USE/ABUSE -DRUGS-HX OF IV COCAINE USE -SMOKED 1 PPD, QUIT 2000 PAST SURGICAL HISTORY: -C-SECTIONS 1981, 1985 -SHOULDER SURGERY 2007 -LEFT KNEE SURGERY 2008 -D&C 2008 -HYSTERECTOMY/BILATERAL SALPINGO-OOPHORECTOMY 2008 -VENA CAVA FILTER 2009 -EGD 2010 -VEIN STRIPPING IN LEGS 2012 -BILATERAL ELBOW/ULNAR NERVE SURGERY 2012 -MULTIPLE HERNIA REPAIRS -MULTIPLE EGD'S AND COLONOSCOPIES AND POLYPECTOMIES -TONSILLECTOMY/ADENOIDECTOMY -CHOLECYSTECTOMY -NASAL POLYPS REMOVED -BILATERAL LEG RADIOABLATION 06/2018 ADDITIONAL PAST MEDICAL HISTORY: -MULTIPLE DVT'S AND P.E.'S -CHRONIC VENOUS STASIS ULCERATIONS -LEG CELLULITIS Family Hx: Alcoholism Alcoholism Arthritis Asthma 19 MOTHER Cancer G8 BROTHER G8 SISTER Cancer of colon Cancer of mouth Cardiovascular disease Cataract Cataracts Chest pain Colon cancer Completed stroke Diabetes mellitus Family history: Allergy Family history: Arthritis Family history: Asthma Family history: Cardiovascular disease Family history: Coronary thrombosis Family history: Diabetes mellitus G8 BROTHER G8 SISTER Family history: Gastrointestinal disease Family history: Hypertension Family history: Thyroid disorder Headache Hearing loss Heart disease 19 MOTHER History of - anemia History of - respiratory disease Hypercholesterolemia Hypercholesterolemia Hypertension 19 FATHER Infertile Malignant neoplasm of lung Myocardial infarction Myocardial infarction Psychotic disorder Respiratory disorder Stroke No Family History of: AIDS Abdominal aortic aneurysm Abdominal aortic aneurysm Fernando's disease [place]'s disease Alzheimer's disease Aphasia Aphasia Congenital disease Congenital heart disease Congenital heart disease Congestive heart failure Coronary thrombosis Cystic fibrosis Cystic fibrosis Deafness or hearing loss Dementia Dementia Drug abuse Dysphagia Dysphasia Family history: Alzheimer's disease Family history: Breast disease Family history: Glaucoma Family history: Osteoporosis Fibrocystic disease of breast Gastroenteritis Glaucoma Headache disorder Hereditary disease History of - disorder History of drug abuse Human immunodeficiency virus (HIV) seropositivity Infertility Kidney disease Kidney disease Neoplasm Not obtainable due to adoption Osteoporosis Parkinson's disease Parkinson's disease Prostate cancer Psychosocial problem Seizure disorder Seizure disorder Severe allergy Thyroid disease Tuberculosis Tuberculosis Visual disorder Visual impairment Review of Systems Constitutional: see HPI Physical Exam Vital Signs Vital Signs - First Documented 12/24/21 10:18 Temp 36.8 Pulse 129 Resp 22 B/P (MAP) 140/99 (113) Pulse Ox 88 O2 Delivery Room Air O2 Flow Rate 3.00 Capillary Refill : Less Than 3 Seconds Height, Weight, BMI Height: 5'5.00" Weight: 184lbs. 5.0oz. 83.348548nj; 35.62 BMI Method:Stated General Appearance: No Apparent Distress Eyes: Bilateral Eye Normal Inspection HEENT: Pharynx Normal Neck: Supple Respiratory: Lungs Clear, Wheezing (scant) Cardiovascular: Regular Rate, Rhythm Gastrointestinal: Soft Clinical Quality Measures Admission Status Admission Dx 1. Acute exacerbation of COPD 2. Hypoxia due to #1 3. History of tobaccoism Short Stay Diagnosis Discharge Diagnosis-Short Stay Admission Diagnosis: 1. COPD exacerbation 2. Upper respiratory infection Final Discharge Diagnosis: 1. COPD/asthma exacerbation 2. Upper respiratory infection Conclusion Conclusion/Plan patient was admitted during the afternoon of December 24, 2021 after presenting via [facility] with asthma/COPD exacerbation. She was seen at emergency department and after evaluation her breathing was unsatisfactory for sending her home. She required further inpatient therapy with IV Solu-Medrol. She initially had received 125 mg in ED and then was given 62.5 mg every 6 hours during the remainder of her hospital stay. She was noted to be coughing fairly significant amount in the morning of December 25, 2021 and this was helped with guaifenesin/codeine syrup. In the morning of December 26 her lungs were essentially clear except for scant expiratory wheeze but she had no labored breathing. She was also noted to be afebrile. She was felt ready for dismissal and she will continue with her prednisone tapering at home as well as generic Cefzil 500 mg twice daily. She will follow up with myself in 3 days. JAY WOLF MD Dec 26, 2021 07:52
--- NOTE | 2021-12-26 07:53 | Discharge Inst-Simple/Standard ---
Discharge Inst-Standard Reconcile Patient Problems Problems Reviewed?: Yes Discharge Medications New, Converted or Re-Newed RX: Transmitted to Pharmacy ([facility]) Patient Instructions/Follow Up Plan of Care/Instructions/FU: Dr Wolf in 3 days Activity as Tolerated: Yes Discharge Diet: Regular Diet Return to The [facility] For: worsening shortness of breath or difficulty breathing. LEAH WOLF MD Dec 26, 2021 07:53
[2021-12-26 08:00] VITALS: BP 127/76
[2021-12-26] MEDS: KCL 10 MEQ TAB (MICRO K) PO SCH (08:30)
[2021-12-26] MEDS ORDERED: LORATADINE (CLARITIN) 10 MG TAB PO SCH (09:00)
[2021-12-26] MEDS ORDERED: FUROSEMIDE 40 MG (LASIX) TAB PO SCH (09:00)
[2021-12-26] MEDS ORDERED: PANTOPRAZOLE 40 MG (PROTONIX) TAB PO SCH (09:00)
[2021-12-26 11:30] VITALS: BP 127/76
[2021-12-26] MEDS ORDERED: warFARin 4 MG (COUMADIN) TAB PO SCH (18:00)
== END 2021-12-26 11:30 | disposition home or self-care (01) ==
LOC: EDUNIT# 10:18 → ER 10:20 → 4TH 13:26 → INTOOBSV 13:26
PROVIDERS: ADMIT Internal Medicine; ATTEND Internal Medicine
DX: J44.1 Chronic obstructive pulmonary disease with (acute) exacerbation (principal); Z87.891 Personal history of nicotine dependence; I11.0 Hypertensive heart disease with heart failure; I50.9 Heart failure, unspecified; R09.02 Hypoxemia; Z99.81 Dependence on supplemental oxygen; Z88.6 Allergy status to analgesic agent; Z79.01 Long term (current) use of anticoagulants
CPT/HCPCS: 36415; 71045; 80048; 84145; 85025; 85610; 94640; 94760; 96366; 96376; G0378

== ENCOUNTER 2022-02-02 09:43 | Outpatient (RCR) | payer MEDICAID ==
[~2022-02-02 09:43] MED LIST changes: +ACET-2267 PO; +ALBU2.5V4 INH; +HYDR-3817 PO; +LEVO750T PO; -LEVO750T39 PO
[2022-02-02 10:18] LABS: INR 2.2 (0.8-1.4); PROTHROMBIN TIME PATIENT 25.1 SEC (12.2-14.7)
== END 2022-02-09 | disposition home or self-care (01) ==
LOC: LAB 09:43
PROVIDERS: ATTEND Family Medicine
DX: Z09 Encounter for follow-up examination after completed treatment for conditions other than malignant neoplasm (principal); Z86.718 Personal history of other venous thrombosis and embolism; Z86.711 Personal history of pulmonary embolism
CPT/HCPCS: 36415; 85610

== ENCOUNTER 2022-02-21 07:04 | Inpatient (IN) | payer MEDICAID ==
[~2022-02-21] VITALS: Ht 165 cm; Wt 95.0 kg
[2022-02-21] MEDS ORDERED: RT-ALBUTEROL/IPRATROPIUM 3 ML (DUONEB) VIAL INH ONE (07:30)
[2022-02-21] MEDS ORDERED: methylPREDNISolone 125 MG (Solu-MEDROL) VIAL IVP ONE (07:30)
--- NOTE | 2022-02-21 07:32 | ED Respiratory ---
General Chief Complaint: Respiratory Problems Stated Complaint: SOA Nursing Triage Note: pt presents to ed via pov from home with complaints of cough x 1 month that is not getting better. pt states over the past week her soa has increased. pt states over the past couple days she has had to wear her night o2 all day to help with her soa. Source: patient Exam Limitations: no limitations History of Present Illness Date Seen by Provider: Feb 21, 2022 Time Seen by Provider: 07:19 Initial Comments 61-year-old female with chronic respiratory issues that she attributes to asthma presents to the emergency department today for shortness of breath. Symptoms started about a week ago. She states she "made it through the weekend" and then saw her doctor on Saturday who started her on prednisone and antibiotics. She continues to feel short of breath. She typically wears oxygen, 2 L via nasal cannula in the evenings only and has increased this to continuously over the last couple of days she denies any chest pain outside of that with her cough. She does have a history of pulmonary embolism and multiple other blood clots and is on Coumadin. Last INR check was 2.3. She denies any fevers or chills. No nausea or vomiting. She has taken a home COVID test which was negative. Allergies and Home Medications Allergies Coded Allergies: aspirin (Verified Allergy, Severe, ANAPHYLAXIS, 03/03/19) ibuprofen (Verified Allergy, Severe, ANAPHYLAXIS, 03/03/19) ketorolac (Verified Allergy, Severe, ANAPHYLAXIS, 03/03/19) tetanus and diphtheria toxoids (Unverified Allergy, Severe, ANAPHYLAXIS, 03/03/19) aloe (Verified Allergy, Mild, RASH, 03/03/19) latex (Verified Allergy, Mild, RASH, 03/03/19) OCCASIONALLY IS IRRITATING SKIN scopolamine (Verified Allergy, Mild, 03/03/19) black pepper (Verified Allergy, Unknown, 10/20/21) chocolate flavor (Verified Allergy, Unknown, 10/20/21) coconut (Verified Allergy, Unknown, 10/20/21) tomato (Verified Allergy, Unknown, Rash, 10/20/21) iodine (Verified Adverse Reaction, Unknown, 03/03/19) Patient states she got dizzy, diaphoretic and saw stars. Uncoded Allergies: ALOE VERA (Allergy, Unknown, 12/23/05) SILK SUTURES (Adverse Reaction, Unknown, BODY REJECTS SUTURES, 10/07/13) Patient Home Medication List Home Medication List Reviewed: Yes Acetaminophen (Tylenol Extra Strength) 500 Mg Tablet, 1,000 MG PO Q8H PRN for PAIN-MILD (1-4), (Reported) Entered as Reported by: VERNA KIM on 12/25/21 1606 Last Action: Held Albuterol Sulfate (Albuterol Sulfate) 2.5 Mg/3 Ml (0.083 %) Vial.neb, 2.5 MG INH TID PRN for SHORTNESS OF BREATH, (Reported) Entered as Reported by: VERNA KIM on 12/25/21 1555 Last Action: Held Albuterol Sulfate (Proair Hfa) 1 Puff Puff, 2 PUFF IH Q4H PRN for SHORTNESS OF BREATH, (Reported) Entered as Reported by: VERNA KIM on 12/25/21 1600 Last Action: Held Alprazolam (Alprazolam) 1 Mg Tablet, 1 MG PO BID PRN for ANXIETY, (Reported) Entered as Reported by: JESÚS PHILLIPS on 03/07/15 1623 Last Action: Continued Ascorbic Acid (Vitamin C) 1,000 Mg Tablet, 1,000 MG PO DAILY, (Reported) Entered as Reported by: SHAMIR SALAZAR on 06/13/21 103 Last Action: Held Budesonide/Formoterol Fumarate (Budesonide-Formoterol 160-4.5) 160 Mcg-4.5 Mcg/Actuation Hfa.aer.ad, 2 PUFF INH BID, (Reported) Entered as Reported by: SHAMIR SALAZAR on 02/21/22 151 Last Action: Held Calcium Carbonate/Vitamin D3 (Calcium 600 + Vit D 200 Tablet) 1 Each Tablet, 1 EACH PO BID, (Reported) Entered as Reported by: SHAMIR SALAZAR on 06/13/21 103 Last Action: Held Cefprozil (Cefprozil) 500 Mg Tablet, 500 MG PO Q12H, (Reported) Entered as Reported by: SHAMIR SALAZAR on 02/21/22 151 Last Action: Held Cholecalciferol (Vitamin D3) (Vitamin D3) 25 Mcg Capsule, 25 MCG PO DAILY, (Reported) Entered as Reported by: SHAMIR SALAZAR on 06/13/21 1034 Last Action: Held Furosemide (Furosemide) 40 Mg Tablet, 40 MG PO DAILY, (Reported) Entered as Reported by: YOSSI NELSON on 03/03/19 1340 Last Action: Continued Hydrocodone/Acetaminophen (Hydrocodone-Acetamin 10-325 mg) 10 Mg-325 Mg Tablet, 1 EACH PO Q6H PRN for PAIN-MODERATE (5-7), (Reported) Entered as Reported by: SHAMIR SALAZAR on 02/21/22 151 Last Action: Continued Hyoscyamine Sulfate (Hyoscyamine Sulfate) 0.125 Mg Tablet, 0.125 MG PO Q6H PRN for GI SPASMS, (Reported) Entered as Reported by: SHAMIR SALAZAR on 02/21/22 151 Last Action: Continued Ipratropium Deering (Ipratropium Deering) 0.2 Mg/1 Ml Solution, 1 VIAL NEB TID, (Reported) Entered as Reported by: JESÚS PHILLIPS on 03/07/15 1640 Last Action: Held Loratadine (Loratadine) 10 Mg Tablet, 10 MG PO DAILY, (Reported) Entered as Reported by: JESÚS PHILLIPS on 03/07/15 1623 Last Action: Continued Montelukast Sodium (Montelukast Sodium) 10 Mg Tablet, 10 MG PO HS, (Reported) Entered as Reported by: MELISSA MONTERO on 05/18/17 1103 Last Action: Continued Pantoprazole Sodium (Pantoprazole Sodium) 40 Mg Tablet.dr, 40 MG PO DAILY, (Reported) Entered as Reported by: JESÚS PHILLIPS on 03/07/15 1623 Last Action: Continued Polyethylene Glycol 3350 (Miralax) 17 Gram Powd.pack, 17 GM PO DAILY PRN for CONSTIPATION-2ND LINE, (Reported) Entered as Reported by: SHAMIR SALAZAR on 10/20/21 1408 Last Action: Held Potassium Chloride (K-Tab ER) 10 Meq Tablet.er, 20 MEQ PO BID, (Reported) Entered as Reported by: YOSSI NELSON on 05/28/19 0952 Last Action: Continued Prednisone (Prednisone) 20 Mg Tab, 0 PO DAILY, (Reported) Entered as Reported by: SHAMIR SALAZAR on 02/21/22 151 Last Action: Held Promethazine HCl (Promethazine Tablet) 25 Mg Tablet, 25 MG PO Q8H PRN for NAUSEA/VOMITING-1ST LINE, (Reported) Entered as Reported by: SHAMIR SALAZAR on 10/20/21 1408 Last Action: Continued Warfarin Sodium (Jantoven) 4 Mg Tablet, 4 MG PO NORTH,,TH,SAT @1800, (Reported) Entered as Reported by: YOSSI NELSON on 05/28/19 0952 Last Action: Continued Warfarin Sodium (Jantoven) 5 Mg Tablet, 5 MG PO MO,WE,FR @1800, (Reported) Entered as Reported by: SHAMIR SALAZAR on 07/20/19 1602 Last Action: Continued Zinc Gluconate (Zinc) 50 Mg Tablet, 50 MG PO DAILY, (Reported) Entered as Reported by: SHAMIR SALAZAR on 02/21/22 1511 Last Action: Held Discontinued Medications Cefprozil (Cefprozil) 500 Mg Tablet, 500 MG PO BID, (Reported) Discontinued Reason: Duplicate Order Entered as Reported by: VERNA KIM on 12/25/21 1558 Last Action: Discontinued Guaifenesin/Codeine (Robitussin Ac (Codeine) Syrup) 10 Ml Syrp, 10 ML PO Q4H PRN for cough Discontinued Reason: No Longer Taking Prescribed by: JULY DURAN on 12/26/21 1051 Last Action: Discontinued Prednisone (Prednisone) 20 Mg Tab, 20 MG PO UD, (Reported) Discontinued Reason: Duplicate Order Entered as Reported by: VERNA KIM on 12/25/21 1557 Last Action: Discontinued Review of Systems Review of Systems Constitutional: no symptoms reported EENTM: no symptoms reported Respiratory: cough, short of breath Cardiovascular: no symptoms reported Gastrointestinal: no symptoms reported 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: no symptoms reported Musculoskeletal: no symptoms reported Skin: no symptoms reported Psychiatric/Neurological: No Symptoms Reported Hematologic/Lymphatic: No Symptoms Reported Immunological/Allergic: no symptoms reported Past Drfcfqs-Xsspfh-Ovenhr Hx Patient Social History Tobacco Use?: No Smoking Status: Former Smoker Substance use?: No Alcohol Use?: No Pt feels they are or have been: No Immunizations Up To Date Tetanus Booster (TDap): Unknown PED Vaccines UTD: No Seasonal Allergies Seasonal Allergies: Yes Past Medical History Surgery/Hospitalization HX: Heart cath, hysterectomy, knee scope, ablasion on both knees, hernia reapir, copd, chf, asthma Surgeries: Yes (C/S X2, KNEE SCOPE, SHOULDER SCOPE, d&C, BILAT ULNAR NERVE, VENA CAVA FILTE) Abdominal, Adenoidectomy, Section, Gallbladder, Hysterectomy, Orthopedic, Tonsillectomy, Tubal Ligation, Vascular Surgery Respiratory: Yes (O2 AT HS 2-3L/NC AND PRN--NOCTURNAL HYPOXIA; ) Asthma, Pneumonia, Chronic Bronchitis, Pulmonary Embolism, COPD Currently Using CPAP: No Currently Using BIPAP: No Cardiac: Yes (MULTIPLE DVT'S AND P.E.'S ) Chronic Edema/Swelling, Deep Vein Thrombosis, High Cholesterol, Hypertension, Peripheral Vascular Neurological: Yes Neuropathy 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 Disorders: Yes [employer] History: Hysterectomy, Menopausal Sexually Transmitted Disease: No HIV/AIDS: No 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: Yes Kidney Infection, Bladder Infection, Kidney Stones Gastrointestinal: Yes (MULTIPLE HERNIA REPAIRS; MULTIPLE EGD'S /COLONOSCOPIES/POLYPECTOMIES) Abdominal Hernia, Gastroesophageal Reflux, Chronic Constipation, Chronic Diarrhea, Hepatitis, Polyps, Hiatal Hernia, Irritable Bowel Musculoskeletal: Yes (MULTIPLE ORTHO SURGERIES) Arthritis Endocrine: Yes ("PRE-DIABETIC" ) HEENT: Yes (NASAL POLYPS REMOVED) Cataract Loss of Vision: Denies Hearing Impairment: Denies Cancer: No Did You Recieve Any Treatments: No Psychosocial: Yes Anxiety Integumentary: Yes (CHRONIC VENOUS STASIS DERMATITIS AND ULCERS. CELLULTITIS OF LEGS;TATTOOS ) Blood Disorders: Yes (DVT'S/PE'S; PROBABLE PROTEIN C DEFICIENCY) Adverse Reaction/Blood Tranf: No (HAS HAD BLOOD WITH NO PROBLEMS) Family Medical History Reviewed Nursing Family Hx Alcoholism Alcoholism Arthritis Asthma 19 MOTHER Cancer G8 BROTHER G8 SISTER Cancer of colon Cancer of mouth Cardiovascular disease Cataract Cataracts Chest pain Colon cancer Completed stroke Diabetes mellitus Family history: Allergy Family history: Arthritis Family history: Asthma Family history: Cardiovascular disease Family history: Coronary thrombosis Family history: Diabetes mellitus G8 BROTHER G8 SISTER Family history: Gastrointestinal disease Family history: Hypertension Family history: Thyroid disorder Headache Hearing loss Heart disease 19 MOTHER History of - anemia History of - respiratory disease Hypercholesterolemia Hypercholesterolemia Hypertension 19 FATHER Infertile Malignant neoplasm of lung Myocardial infarction Myocardial infarction Psychotic disorder Respiratory disorder Stroke No Family History of: AIDS Abdominal aortic aneurysm Abdominal aortic aneurysm Wright's disease Wright's disease Alzheimer's disease Aphasia Aphasia Congenital disease Congenital heart disease Congenital heart disease Congestive heart failure Coronary thrombosis Cystic fibrosis Cystic fibrosis Deafness or hearing loss Dementia Dementia Drug abuse Dysphagia Dysphasia Family history: Alzheimer's disease Family history: Breast disease Family history: Glaucoma Family history: Osteoporosis Fibrocystic disease of breast Gastroenteritis Glaucoma Headache disorder Hereditary disease History of - disorder History of drug abuse Human immunodeficiency virus (HIV) seropositivity Infertility Kidney disease Kidney disease Neoplasm Not obtainable due to adoption Osteoporosis Parkinson's disease Parkinson's disease Prostate cancer Psychosocial problem Seizure disorder Seizure disorder Severe allergy Thyroid disease Tuberculosis Tuberculosis Visual disorder Visual impairment Cancer, COPD, Vascular Disease SOCIAL HISTORY: -ETOH--RARE USE NOW, HISTORY OF HEAVY USE/ABUSE -DRUGS-HX OF IV COCAINE USE -SMOKED 1 PPD, QUIT 2000 PAST SURGICAL HISTORY: -C-SECTIONS 1981, 1985 -SHOULDER SURGERY 2007 -LEFT KNEE SURGERY 2008 -D&C 2008 -HYSTERECTOMY/BILATERAL SALPINGO-OOPHORECTOMY 2008 -VENA CAVA FILTER 2009 -EGD 2010 -VEIN STRIPPING IN LEGS 2012 -BILATERAL ELBOW/ULNAR NERVE SURGERY 2012 -MULTIPLE HERNIA REPAIRS -MULTIPLE EGD'S AND COLONOSCOPIES AND POLYPECTOMIES -TONSILLECTOMY/ADENOIDECTOMY -CHOLECYSTECTOMY -NASAL POLYPS REMOVED -BILATERAL LEG RADIOABLATION 06/2018 ADDITIONAL PAST MEDICAL HISTORY: -MULTIPLE DVT'S AND P.E.'S -CHRONIC VENOUS STASIS ULCERATIONS -LEG CELLULITIS Physical Exam Vital Signs - First Documented Capillary Refill : Less Than 3 Seconds Height: 5'5.00" Weight: 184lbs. 5.0oz. 83.826455wh; 36.00 BMI Method:Stated General Appearance: WD/WN, no apparent distress HEENT: normal ENT inspection, pharynx normal Neck: non-tender, full range of motion, supple, normal inspection Respiratory: chest non-tender, no respiratory distress, no accessory muscle use, other (Diffuse inspiratory and expiratory wheezes bilaterally.) Cardiovascular: no edema, no gallop, no JVD, no murmur, tachycardia Gastrointestinal: normal bowel sounds, non tender, soft, no organomegaly, no pulsatile mass Extremities: other (Changes consistent with chronic venous stasis bilateral lower extremities. Minimal edema.) Neurologic/Psychiatric: alert, normal mood/affect, oriented x 3 Skin: warm/dry, other (Venostasis changes.) Focused Exam Lactate Level 02/21/22 09:30: Lactic Acid Level 2.54*H Lactic Acid Level Laboratory Tests Test 02/21/22 07:32 02/21/22 09:30 Lactic Acid Level 2.27 MMOL/L (0.50-2.00) *H 2.54 MMOL/L (0.50-2.00) *H Progress/Results/Core Measures Suspected Sepsis SIRS Temperature: Pulse: 120 Respiratory Rate: 20 Laboratory Tests 02/21/22 07:32: White Blood Count 6.9 Blood Pressure 153 /87 Mean: 109 02/21/22 09:30: Lactic Acid Level 2.54*H Laboratory Tests 02/21/22 07:32: Creatinine 0.66, INR Comment 1.5H, Platelet Count 279, Total Bilirubin 0.3 Results/Orders Lab Results Laboratory Tests Test 02/21/22 07:32 02/21/22 08:06 02/21/22 09:30 Range/Units White Blood Count 6.9 4.3-11.0 10^3/uL Red Blood Count 4.63 3.80-5.11 10^6/uL Hemoglobin 12.4 11.5-16.0 g/dL Hematocrit 40 35-52 % Mean Corpuscular Volume 86 80-99 fL Mean Corpuscular Hemoglobin 27 25-34 pg Mean Corpuscular Hemoglobin Concent 31 L 32-36 g/dL Red Cell Distribution Width 16.6 H 10.0-14.5 % Platelet Count 279 130-400 10^3/uL Mean Platelet Volume 8.7 L 9.0-12.2 fL Immature Granulocyte % (Auto) 0 % Neutrophils (%) (Auto) 52 42-75 % Lymphocytes (%) (Auto) 34 12-44 % Monocytes (%) (Auto) 9 0-12 % Eosinophils (%) (Auto) 4 0-10 % Basophils (%) (Auto) 0 0-10 % Neutrophils # (Auto) 3.6 1.8-7.8 10^3/uL Lymphocytes # (Auto) 2.3 1.0-4.0 10^3/uL Monocytes # (Auto) 0.7 0.0-1.0 10^3/uL Eosinophils # (Auto) 0.3 0.0-0.3 10^3/uL Basophils # (Auto) 0.0 0.0-0.1 10^3/uL Immature Granulocyte # (Auto) 0.0 0.0-0.1 10^3/uL Prothrombin Time 18.2 H 12.2-14.7 SEC INR Comment 1.5 H 0.8-1.4 Sodium Level 143 135-145 MMOL/L Potassium Level 3.5 L 3.6-5.0 MMOL/L Chloride Level 106 98-107 MMOL/L Carbon Dioxide Level 26 21-32 MMOL/L Anion Gap 11 5-14 MMOL/L Blood Urea Nitrogen 12 7-18 MG/DL Creatinine 0.66 0.60-1.30 MG/DL Estimat Glomerular Filtration Rate 99 BUN/Creatinine Ratio 18 Glucose Level 96 70-105 MG/DL Lactic Acid Level 2.27 *H 2.54 *H 0.50-2.00 MMOL/L Calcium Level 9.1 8.5-10.1 MG/DL Corrected Calcium 9.3 8.5-10.1 MG/DL Total Bilirubin 0.3 0.1-1.0 MG/DL Aspartate Amino Transf (AST/SGOT) 12 5-34 U/L Alanine Aminotransferase (ALT/SGPT) 14 0-55 U/L Alkaline Phosphatase 71 40-136 U/L Troponin I < 0.028 <0.028 NG/ML Total Protein 7.3 6.4-8.2 GM/DL Albumin 3.8 3.2-4.5 GM/DL SARS-CoV-2 RNA (RT-PCR) Not Detected Not Detecte My Orders Orders - SANAM FRANKEL DO Cbc With Automated Diff (02/21/22 07:25) Comprehensive Metabolic Panel (02/21/22 07:25) Blood Culture (02/21/22 07:25) Protime With Inr (02/21/22 07:25) Chest 1 View, Ap/Pa Only (02/21/22 07:25) Ed Iv/Invasive Line Start (02/21/22 07:25) Vital Signs Adult Sepsis Patie Q15M (02/21/22 07:25) O2 (02/21/22 07:25) Lactic Acid Analyzer (02/21/22 07:25) Methylprednisolone Sod Succ (Solu-Medrol (02/21/22 07:30) Albuterol/Ipra Inhalation Soln (Duoneb I (02/21/22 07:30) Svn Small Volume Nebulizer (02/21/22 07:25) Covid 19 Inhouse Test (02/21/22 07:32) Troponin I Camas (02/21/22 07:34) Ekg Tracing (02/21/22 07:34) Ns Iv 500 Ml (Sodium Chloride 0.9%) (02/21/22 08:30) Ct Angio Chest W (02/21/22 08:38) Ceftriaxone 1 Gm Pre-Mix (Rocephin 1 Gm (02/21/22 08:45) Diphenhydramine Injection (Benadryl Inje (02/21/22 09:00) Diphenhydramine Injection (Benadryl Inje (02/21/22 09:00) Diphenhydramine Injection (Benadryl Inje (02/21/22 08:49) Iohexol Injection (Omnipaque 350 Mg/Ml 1 (02/21/22 08:45) Received Contrast (Hold Metformin- Contr (02/21/22 08:45) Ns (Ivpb) (Sodium Chloride 0.9% Ivpb Bag (02/21/22 08:45) Sodium Chloride Flush (Catheter Flush Sy (02/21/22 08:45) Acetaminophen Tablet (Tylenol Tablet) (02/21/22 09:15) Medications Given in ED Vital Signs/I&O 02/21/22 02/21/22 02/21/22 07:11 07:11 07:52 Temp 36.9 Pulse 120 Resp 20 B/P (MAP) 153/87 (109) Pulse Ox 92 94 95 O2 Delivery Nasal Cannula Nasal Cannula Nasal Cannula O2 Flow Rate 5.00 4.00 5.00 Capillary Refill : Less Than 3 Seconds Blood Pressure Mean: 109 Departure Communication (Admissions) Time/Spoke to Admitting Phy: 10:00 Spoke to the patient's primary care doctor, Dr. Rogers. Excepted patient admission at this time. I will write bridging orders. 0850 Patient is hemodynamically stable. Her INR is subtherapeutic. Given her history of PE persistence of her symptoms I will go ahead and do a CT angiography. She has a documented iodine allergy. She states she had a heart cath in June and had no trouble with this. I talked to her about the risks and benefits and ultimately we decided to premedicate her with Benadryl and proceed with the study. She has already had Solu-Medrol. Impression Primary Impression: Community acquired pneumonia Qualified Codes: J18.9 - Pneumonia, unspecified organism Additional Impressions: Subtherapeutic international normalized ratio (INR) Elevated lactic acid level Disposition: ADMITTED INPATIENT Condition: Stable Admissions Decision to Admit Reason: Admit from ER (General) Decision to Admit/Date: Feb 21, 2022 Time/Decision to Admit Time: 09:55 Departure-Patient Inst. Referrals: LEAH ROGERS MD (PCP/Family) Primary Care Physician SANAM FRANKEL DO Feb 21, 2022 07:32
[2022-02-21 07:36] LABS: BASOPHILS % (AUTO) 0 % (0-10); EOSINOPHILS # (AUTO) 0.3 10^3/uL (0.0-0.3); EOSINOPHILS % (AUTO) 4 % (0-10); HEMATOCRIT 40 % (35-52); HEMOGLOBIN 12.4 g/dL (11.5-16.0); LYMPHOCYTES # (AUTO) 2.3 10^3/uL (1.0-4.0); LYMPHOCYTES % (AUTO) 34 % (12-44); MEAN CORPUSCULAR HEMOGLOBIN 27 pg (25-34); MEAN CORPUSCULAR HGB CONC 31 g/dL (32-36); MEAN CORPUSCULAR VOLUME 86 fL (80-99); MEAN PLATELET VOLUME 8.7 fL (9.0-12.2); MONOCYTES # (AUTO) 0.7 10^3/uL (0.0-1.0); MONOCYTES % (AUTO) 9 % (0-12); NEUTROPHILS # (AUTO) 3.6 10^3/uL (1.8-7.8); NEUTROPHILS % (AUTO) 52 % (42-75); PLATELET COUNT 279 10^3/uL (130-400); WHITE BLOOD COUNT 6.9 10^3/uL (4.3-11.0)
--- NOTE | 2022-02-21 07:48 | Diagnostic Imaging Report ---
INDICATION: Dyspnea. Comparison with 12/24/2021. FINDINGS: Portable chest. Hyperaeration with flattening of diaphragm again noted. Basilar atelectasis has cleared when compared with previous exam on the right. There continues to be hazy obscuration of left hemidiaphragm. The upper lungs are clear with no evidence of pulmonary edema. IMPRESSION: 1. Some improvement noted with clearing of the right lung base. 2. Persistent left basilar opacification with hyperaeration. Dictated by: Dictated on workstation # [id number]
[2022-02-21 08:09] LABS: ALBUMIN 3.8 GM/DL (3.2-4.5)
[2022-02-21 08:10] LABS: POTASSIUM 3.5 MMOL/L (3.6-5.0)
[2022-02-21 08:11] LABS: CALCIUM 9.1 MG/DL (8.5-10.1); INR 1.5 (0.8-1.4); PROTHROMBIN TIME PATIENT 18.2 SEC (12.2-14.7)
[2022-02-21 08:12] LABS: TOTAL PROTEIN 7.3 GM/DL (6.4-8.2)
[2022-02-21 08:14] LABS: BILIRUBIN,TOTAL 0.3 MG/DL (0.1-1.0)
[2022-02-21 08:16] LABS: CREATININE SERUM 0.66 MG/DL (0.60-1.30)
[2022-02-21] MEDS: NS IV 500 ML 500 ML IV SCH ×2 (08:42→13:54)
[2022-02-21] MEDS ORDERED: IOHEXOL 350 MG/ML 100 ML (OMNIPAQUE 350) VIAL IV ONE (08:45)
[2022-02-21] MEDS ORDERED: cefTRIAXone 1 GM PRE-MIX 50 ML IV ONE (08:45)
[2022-02-21] MEDS ORDERED: HOLD METFORMIN - RECEIVED CONTRAST 20 ML VIAL IV SCH (08:45)
[2022-02-21] MEDS ORDERED: NS 100 ML (IVPB) BAG IV ONE (08:45)
[2022-02-21] MEDS ORDERED: CATHETER FLUSH 10 ML SYR IV PRN (08:45)
[2022-02-21] MEDS ORDERED: diphenhydrAMINE 50 MG/ML INJ (BENADRYL) ONE (08:49)
[2022-02-21] MEDS ORDERED: diphenhydrAMINE 50 MG/ML INJ (BENADRYL) IM ONE (09:00)
[2022-02-21] MEDS ORDERED: diphenhydrAMINE 50 MG/ML INJ (BENADRYL) IVP ONE (09:00)
[2022-02-21] MEDS ORDERED: ACETAMINOPHEN 500 MG TAB (TYLENOL) PO ONE (09:15)
--- NOTE | 2022-02-21 09:21 | Diagnostic Imaging Report ---
PROCEDURE: CT angiography of the chest with contrast. TECHNIQUE: Multiple contiguous axial images were obtained through the chest after uneventful bolus administration of intravenous contrast. 3D reconstructed CTA MIP acquisitions were also performed. Auto Exposure Controls were utilized during the CT exam to meet ALARA standards for radiation dose reduction. INDICATION: Dyspnea. Cough. FINDINGS: There is good opacification of the aorta and pulmonary arteries. No evidence for aortic aneurysm or dissection. Pulmonary artery show no filling defects to suggest pulmonary emboli. There is focal atelectasis and consolidation in the right lower lobe with small right basilar effusion. The lungs are otherwise well-aerated and clear. No mediastinal or hilar adenopathy of pathologic size. IMPRESSION: 1. No evidence of pulmonary emboli. 2. Right basilar atelectasis and infiltrate with trace of pleural effusion. Dictated by: Dictated on workstation # [id number]
[2022-02-21 10:39] VITALS: BP 148/88
[2022-02-21 11:42] VITALS: BP 119/78
[2022-02-21 12:22] VITALS: BP 153/87
[2022-02-21] MEDS: RT-ALBUTEROL/IPRATROPIUM 3 ML (DUONEB) VIAL INH SCH ×3 (15:09→22:00)
[2022-02-21] MEDS ORDERED: PRD20T PO (15:11)
[2022-02-21] MEDS ORDERED: HYOS-20 PO (15:11)
[2022-02-21] MEDS ORDERED: HYDR-3820 PO (15:11)
[2022-02-21] MEDS ORDERED: BUDE10.26 INH (15:11)
[2022-02-21] MEDS ORDERED: ZINC50TA11 PO (15:11)
[2022-02-21] MEDS ORDERED: CEFP500T4 PO (15:11)
[2022-02-21 15:23] VITALS: BP 150/75
[2022-02-21] MEDS: guaiFENesin/CODEINE (ROBITUSSIN AC) 10ML UDC PO PRN (15:59)
[2022-02-21] MEDS: ACETAMINOPHEN 500 MG TAB (TYLENOL) PO PRN (15:59)
[2022-02-21] MEDS ORDERED: RT-ALBUTEROL/IPRATROPIUM 3 ML (DUONEB) VIAL INH PRN (16:00)
--- NOTE | 2022-02-21 16:54 | History & Physicial ---
History of Present Illness History of Present Illness Reason for visit/HPI 61-year-old female presents to [facility] emergency department after having increasing shortness of breath. She was seen in my office yesterday morning and prescribed prednisone tapering as well as placement on 500 mg cefprozil. Apparently the symptoms worsened overnight and in the morning of February 21 this prompted her to go to the emergency department. She does have a history of wear ing nasal cannula oxygen as well as history of COPD. She does have additionally history of pulmonary embolism and does take Coumadin. She does frequently have her INR checked. At this time she denies any significant fever. She did take a home COVID test which was negative. Date of Admission Feb 21, 2022 at 10:00 Date Seen by a Provider: Feb 21, 2022 Time Seen by a Provider: 17:10 I consulted on this patient on 02/21/22 16:49 Attending Physician Jay Wolf MD Admitting Physician Admitting Physician: Jay Wolf MD Attending Physician: Jay Wolf MD Consult Allergies and Home Medications Allergies Coded Allergies: aspirin (Verified Allergy, Severe, ANAPHYLAXIS, 03/03/19) ibuprofen (Verified Allergy, Severe, ANAPHYLAXIS, 03/03/19) ketorolac (Verified Allergy, Severe, ANAPHYLAXIS, 03/03/19) tetanus and diphtheria toxoids (Unverified Allergy, Severe, ANAPHYLAXIS, 03/03/19) aloe (Verified Allergy, Mild, RASH, 03/03/19) latex (Verified Allergy, Mild, RASH, 03/03/19) OCCASIONALLY IS IRRITATING SKIN scopolamine (Verified Allergy, Mild, 03/03/19) black pepper (Verified Allergy, Unknown, 10/20/21) chocolate flavor (Verified Allergy, Unknown, 10/20/21) coconut (Verified Allergy, Unknown, 10/20/21) tomato (Verified Allergy, Unknown, Rash, 10/20/21) iodine (Verified Adverse Reaction, Unknown, 03/03/19) Patient states she got dizzy, diaphoretic and saw stars. Uncoded Allergies: ALOE VERA (Allergy, Unknown, 12/23/05) SILK SUTURES (Adverse Reaction, Unknown, BODY REJECTS SUTURES, 10/07/13) Patient Home Medication List Home Medication List Reviewed: Yes Acetaminophen (Tylenol Extra Strength) 500 Mg Tablet, 1,000 MG PO Q8H PRN for PAIN-MILD (1-4), (Reported) Entered as Reported by: VERNA KIM on 12/25/21 1606 Last Action: Held Albuterol Sulfate (Albuterol Sulfate) 2.5 Mg/3 Ml (0.083 %) Vial.neb, 2.5 MG INH TID PRN for SHORTNESS OF BREATH, (Reported) Entered as Reported by: VERNA KIM on 12/25/21 1555 Last Action: Held Albuterol Sulfate (Proair Hfa) 1 Puff Puff, 2 PUFF IH Q4H PRN for SHORTNESS OF BREATH, (Reported) Entered as Reported by: VERNA KIM on 12/25/21 1600 Last Action: Held Alprazolam (Alprazolam) 1 Mg Tablet, 1 MG PO BID PRN for ANXIETY, (Reported) Entered as Reported by: JESÚS PHILLIPS on 03/07/15 1623 Last Action: Continued Ascorbic Acid (Vitamin C) 1,000 Mg Tablet, 1,000 MG PO DAILY, (Reported) Entered as Reported by: SHAMIR SALAZAR on 06/13/21 1034 Last Action: Held Budesonide/Formoterol Fumarate (Budesonide-Formoterol 160-4.5) 160 Mcg-4.5 Mcg/Actuation Hfa.aer.ad, 2 PUFF INH BID, (Reported) Entered as Reported by: SHAMIR SALAZAR on 02/21/22 1511 Last Action: Held Calcium Carbonate/Vitamin D3 (Calcium 600 + Vit D 200 Tablet) 1 Each Tablet, 1 EACH PO BID, (Reported) Entered as Reported by: SHAMIR SALAZAR on 06/13/21 1034 Last Action: Held Cefprozil (Cefprozil) 500 Mg Tablet, 500 MG PO Q12H, (Reported) Entered as Reported by: SHAMIR SALAZAR on 02/21/22 1511 Last Action: Held Cholecalciferol (Vitamin D3) (Vitamin D3) 25 Mcg Capsule, 25 MCG PO DAILY, (Reported) Entered as Reported by: SHAMIR SALAZAR on 06/13/21 1034 Last Action: Held Furosemide (Furosemide) 40 Mg Tablet, 40 MG PO DAILY, (Reported) Entered as Reported by: YOSSI NELSON on 03/03/19 1340 Last Action: Continued Hydrocodone/Acetaminophen (Hydrocodone-Acetamin 10-325 mg) 10 Mg-325 Mg Tablet, 1 EACH PO Q6H PRN for PAIN-MODERATE (5-7), (Reported) Entered as Reported by: SHAMIR SALAZAR on 02/21/221510 Last Action: Continued Hyoscyamine Sulfate (Hyoscyamine Sulfate) 0.125 Mg Tablet, 0.125 MG PO Q6H PRN for GI SPASMS, (Reported) Entered as Reported by: SHAMIR SALAZAR on 02/21/221510 Last Action: Continued Ipratropium Hardin (Ipratropium Hardin) 0.2 Mg/1 Ml Solution, 1 VIAL NEB TID, (Reported) Entered as Reported by: JESÚS PHILLIPS on 03/07/15 1640 Last Action: Held Loratadine (Loratadine) 10 Mg Tablet, 10 MG PO DAILY, (Reported) Entered as Reported by: JESÚS PHILLIPS on 03/07/15 162 Last Action: Continued Montelukast Sodium (Montelukast Sodium) 10 Mg Tablet, 10 MG PO HS, (Reported) Entered as Reported by: MELISSA MONTERO on 05/18/17 1103 Last Action: Continued Pantoprazole Sodium (Pantoprazole Sodium) 40 Mg Tablet.dr, 40 MG PO DAILY, (Repo rted) Entered as Reported by: JESÚS PHILLIPS on 03/07/151622 Last Action: Continued Polyethylene Glycol 3350 (Miralax) 17 Gram Powd.pack, 17 GM PO DAILY PRN for CONSTIPATION-2ND LINE, (Reported) Entered as Reported by: SHAMIR SALAZAR on 10/20/21 140 Last Action: Held Potassium Chloride (K-Tab ER) 10 Meq Tablet.er, 20 MEQ PO BID, (Reported) Entered as Reported by: YOSSI NELSON on 05/28/19 0952 Last Action: Continued Prednisone (Prednisone) 20 Mg Tab, 0 PO DAILY, (Reported) Entered as Reported by: SHAMIR SALAZAR on 02/21/221510 Last Action: Held Promethazine HCl (Promethazine Tablet) 25 Mg Tablet, 25 MG PO Q8H PRN for NA USEA/VOMITING-1ST LINE, (Reported) Entered as Reported by: SHAMIR SALAZAR on 10/20/21 1408 Last Action: Continued Warfarin Sodium (Jantoven) 4 Mg Tablet, 4 MG PO NORTH,TU,TH,SAT @1800, (Reported) Entered as Reported by: YOSSI NELSON on 05/28/19 0952 Last Action: Continued Warfarin Sodium (Jantoven) 5 Mg Tablet, 5 MG PO MO,WE,FR @1800, (Reported) Entered as Reported by: SHAMIR SALAZAR on 07/20/19 1602 Last Action: Continued Zinc Gluconate (Zinc) 50 Mg Tablet, 50 MG PO DAILY, (Reported) Entered as Reported by: SHAMIR SALAZAR on 02/21/22 1511 Last Action: Held Discontinued Medications Cefprozil (Cefprozil) 500 Mg Tablet, 500 MG PO BID, (Reported) Discontinued Reason: Duplicate Order Entered as Reported by: VERNA KIM on 12/25/21 1558 Last Action: Discontinued Guaifenesin/Codeine (Robitussin Ac (Codeine) Syrup) 10 Ml Syrp, 10 ML PO Q4H PRN for cough Discontinued Reason: No Longer Taking Prescribed by: JULY DURAN on 12/26/21 1051 Last Action: Discontinued Prednisone (Prednisone) 20 Mg Tab, 20 MG PO UD, (Reported) Discontinued Reason: Duplicate Order Entered as Reported by: VERNA KIM on 12/25/21 1557 Last Action: Discontinued Past Nvgvasw-Xbnifh-Begnpg Hx Patient Social History Marrital Status: single Drug of Choice: + IV COCAINE USE Smoking Status: Former Smoker Former Smoker, Quit: Nov 17, 2000 2nd Hand Smoke Exposure: No Recent Hopitalizations: No (05/21/19 knee sx) Have you traveled recently?: No Alcohol Use?: No Pt feels they are or have been: No Immunizations Up To Date Tetanus Booster (TDap): Unknown Pediatric: No Date of Pneumonia Vaccine: Sep 05, 2016 Date of Influenza Vaccine: Mar 11, 2012 Seasonal Allergies Seasonal Allergies: Yes Surgeries Yes (C/S X2, KNEE SCOPE, SHOULDER SCOPE, d&C, BILAT ULNAR NERVE, VENA CAVA FILTE) Abdominal, Adenoidectomy, Section, Gallbladder, Hysterectomy, Orthopedic, Tonsillectomy, Tubal Ligation, Vascular Surgery Respiratory Yes (O2 AT HS 2-3L/NC AND PRN--NOCTURNAL HYPOXIA; ) Currently Using CPAP: No Currently Using BIPAP: No Cardiovascular Yes (MULTIPLE DVT'S AND P.E.'S ) Chronic Edema/Swelling, Deep Vein Thrombosis, High Cholesterol, Hypertension, Peripheral Vascular Neurological Yes Neuropathy 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 System Hx 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 Disorders: Yes Sexually Transmitted Disease: No HIV/AIDS: No [employer] History: Hysterectomy, Menopausal 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 Yes Kidney Infection, Bladder Infection, Kidney Stones Gastrointestinal Yes (MULTIPLE HERNIA REPAIRS; MULTIPLE EGD'S /COLONOSCOPIES/POLYPECTOMIES) Abdominal Hernia, Gastroesophageal Reflux, Chronic Constipation, Chronic Diarrhea, Hepatitis, Polyps, Hiatal Hernia, Irritable Bowel Musculoskeletal Yes (MULTIPLE ORTHO SURGERIES) Arthritis Endocrine History of Endocrine Disorders: Yes ("PRE-DIABETIC" ) HEENT History of HEENT Disorders: Yes (NASAL POLYPS REMOVED) HEENT Disorders: Cataract Loss of Vision: Denies Hearing Impairment: Denies Cancer No Did You Recieve Any Treatments: No Psychosocial History of Psychiatric Problem: Yes Behavioral Health Disorders: Anxiety Integumentary History of Skin or Integumenta: Yes (CHRONIC VENOUS STASIS DERMATITIS AND ULCERS. CELLULTITIS OF LEGS;TATTOOS ) Blood Transfusions History of Blood Disorders: Yes (DVT'S/PE'S; PROBABLE PROTEIN C DEFICIENCY) Adverse Reaction to a Blood Tr: No (HAS HAD BLOOD WITH NO PROBLEMS) Family Medical History Significant Family History: Cancer, COPD, Vascular Disease Other Significan Family Hx: SOCIAL HISTORY: -ETOH--RARE USE NOW, HISTORY OF HEAVY USE/ABUSE -DRUGS-HX OF IV COCAINE USE -SMOKED 1 PPD, QUIT 2000 PAST SURGICAL HISTORY: -C-SECTIONS 1981, 1985 -SHOULDER SURGERY 2007 -LEFT KNEE SURGERY 2008 -D&C 2008 -HYSTERECTOMY/BILATERAL SALPINGO-OOPHORECTOMY 2008 -VENA CAVA FILTER 2009 -EGD 2010 -VEIN STRIPPING IN LEGS 2012 -BILATERAL ELBOW/ULNAR NERVE SURGERY 2012 -MULTIPLE HERNIA REPAIRS -MULTIPLE EGD'S AND COLONOSCOPIES AND POLYPECTOMIES -TONSILLECTOMY/ADENOIDECTOMY -CHOLECYSTECTOMY -NASAL POLYPS REMOVED -BILATERAL LEG RADIOABLATION 06/2018 ADDITIONAL PAST MEDICAL HISTORY: -MULTIPLE DVT'S AND P.E.'S -CHRONIC VENOUS STASIS ULCERATIONS -LEG CELLULITIS Family Hx: Alcoholism Alcoholism Arthritis Asthma 19 MOTHER Cancer G8 BROTHER G8 SISTER Cancer of colon Cancer of mouth Cardiovascular disease Cataract Cataracts Chest pain Colon cancer Completed stroke Diabetes mellitus Family history: Allergy Family history: Arthritis Family history: Asthma Family history: Cardiovascular disease Family history: Coronary thrombosis Family history: Diabetes mellitus G8 BROTHER G8 SISTER Family history: Gastrointestinal disease Family history: Hypertension Family history: Thyroid disorder Headache Hearing loss Heart disease 19 MOTHER History of - anemia History of - respiratory disease Hypercholesterolemia Hypercholesterolemia Hypertension 19 FATHER Infertile Malignant neoplasm of lung Myocardial infarction Myocardial infarction Psychotic disorder Respiratory disorder Stroke No Family History of: AIDS Abdominal aortic aneurysm Abdominal aortic aneurysm [place]'s disease [place]'s disease Alzheimer's disease Aphasia Aphasia Congenital disease Congenital heart disease Congenital heart disease Congestive heart failure Coronary thrombosis Cystic fibrosis Cystic fibrosis Deafness or hearing loss Dementia Dementia Drug abuse Dysphagia Dysphasia Family history: Alzheimer's disease Family history: Breast disease Family history: Glaucoma Family history: Osteoporosis Fibrocystic disease of breast Gastroenteritis Glaucoma Headache disorder Hereditary disease History of - disorder History of drug abuse Human immunodeficiency virus (HIV) seropositivity Infertility Kidney disease Kidney disease Neoplasm Not obtainable due to adoption Osteoporosis Parkinson's disease Parkinson's disease Prostate cancer Psychosocial problem Seizure disorder Seizure disorder Severe allergy Thyroid disease Tuberculosis Tuberculosis Visual disorder Visual impairment Review of Systems Constitutional: see HPI Physical Exam Vital Signs Vital Signs - First Documented 02/21/22 12:22 FiO2 40 Capillary Refill : Less Than 3 Seconds Height, Weight, BMI Height: 5'5.00" Weight: 184lbs. 5.0oz. 83.908358ps; 34.89 BMI Method:Stated General Appearance: Anxious Eyes: Bilateral Eye Normal Inspection HEENT: Normal ENT Inspection Neck: Supple Respiratory: Accessory Muscle Use (Slight), Rales (In bases) Cardiovascular: Regular Rate, Rhythm Gastrointestinal: Soft Rectal: Deferred Extremity: Normal Capillary Refill Neurologic/Psychiatric: Alert, Oriented x3 Comments [facility], [place] NAME: TRAYSUJEY L [facility] REC#: [id number] PT STATUS: ADM Jesus : 1960 PHYSICIAN: SANAM FRANKEL DO ADMIT DATE: 02/21/22 Signed Date of Exam:02/21/22 CHEST 1 VIEW, AP/PA ONLY INDICATION: Dyspnea. Comparison with 12/24/2021. FINDINGS: Portable chest. Hyperaeration with flattening of diaphragm again noted. Basilar atelectasis has cleared when compared with previous exam on the right. There continues to be hazy obscuration of left hemidiaphragm. The upper lungs are clear with no evidence of pulmonary edema. IMPRESSION: 1. Some improvement noted with clearing of the right lung base. 2. Persistent left basilar opacification with hyperaeration. Dictated by: Dictated on workstation # [id number] Dict: 02/21/22 0745 Trans: 02/21/22 1134 [id number] Interpreted by: ISAI SANDS MD Electronically signed by: ISAI SANDS MD 02/21/22 1134 [facility], [place] NAME: SUJEY FELIZ [facility] REC#: [id number] PT STATUS: ADM Jesus : 1960 PHYSICIAN: SANAM FRANKEL DO ADMIT DATE: 02/21/22 Signed Date of Exam:02/21/22 CT ANGIO CHEST W PROCEDURE: CT angiography of the chest with contrast. TECHNIQUE: Multiple contiguous axial images were obtained through the chest after uneventful bolus administration of intravenous contrast. 3D reconstructed CTA MIP acquisitions were also performed. Auto Exposure Controls were utilized during the CT exam to meet ALARA standards for radiation dose reduction. INDICATION: Dyspnea. Cough. FINDINGS: There is good opacification of the aorta and pulmonary arteries. No evidence for aortic aneurysm or dissection. Pulmonary artery show no filling defects to suggest pulmonary emboli. There is focal atelectasis and consolidation in the right lower lobe with small right basilar effusion. The lungs are otherwise well-aerated and clear. No mediastinal or hilar adenopathy of pathologic size. IMPRESSION: 1. No evidence of pulmonary emboli. 2. Right basilar atelectasis and infiltrate with trace of pleural effusion. Dictated by: Dictated on workstation # [id number] Dict: 02/21/22 0911 Trans: 02/21/22 1134 [facility] [id number] Interpreted by: ISAI SANDS MD Electronically signed by: ISAI SANDS MD 02/21/22 1134 Assessment/Plan Assessment and Plan 1. Pneumonia -She has been initiated on ceftriaxone 1 g every 24 hours 2. COPD exacerbation -She will have Solu-Medrol 80 mg every 8 hours IV -She does have albuterol breathing treatments scheduled given by RT 3. Elevated lactic acid -I suspect this is most likely related to excessive use of albuterol 4. History of PE and this has been excluded through emergency department Admission Diagnosis 1. Pneumonia 2. COPD exacerbation 3. Elevated lactic acid -I suspect this is most likely related to excessive use of albuterol 4. History of PE and this has been excluded through emergency department Admission Status: Inpatient Order (span 2 midnights) Reason for Inpatient Admission: Antibiotics for pneumonia along with IV steroids for COPD exacerbation JAY WOLF MD Feb 21, 2022 16:54
[2022-02-21] MEDS ORDERED: PATIENT MAY USE OWN MED,SINGLE MED PO SCH (17:15)
[2022-02-21] MEDS: HYOSCYAMINE 0.125 MG TAB PO PRN (17:22)
[2022-02-21 19:18] VITALS: BP 125/64
[2022-02-21] MEDS: methylPREDNISolone 40 MG/ML (Solu-MEDROL) VIAL IV SCH (20:57)
[2022-02-21 23:15] VITALS: BP 116/76
[2022-02-22] VITALS (7 sets, daily range): BP systolic 117–144; BP diastolic 64–88
[2022-02-22] MEDS: RT-ALBUTEROL/IPRATROPIUM 3 ML (DUONEB) VIAL INH SCH ×6 (02:45→23:23)
[2022-02-22] MEDS: guaiFENesin/CODEINE (ROBITUSSIN AC) 10ML UDC PO PRN ×2 (05:26→19:52)
[2022-02-22] MEDS: methylPREDNISolone 40 MG/ML (Solu-MEDROL) VIAL IV SCH ×3 (05:27→23:45)
[2022-02-22 06:46] LABS: BASOPHILS % (AUTO) 0 % (0-10); EOSINOPHILS % (AUTO) 0 % (0-10); HEMATOCRIT 39 % (35-52); HEMOGLOBIN 12.2 g/dL (11.5-16.0); LYMPHOCYTES % (AUTO) 11 % (12-44); MEAN CORPUSCULAR HEMOGLOBIN 27 pg (25-34); MEAN CORPUSCULAR HGB CONC 32 g/dL (32-36); MEAN CORPUSCULAR VOLUME 86 fL (80-99); MEAN PLATELET VOLUME 9.2 fL (9.0-12.2); MONOCYTES # (AUTO) 0.4 10^3/uL (0.0-1.0); MONOCYTES % (AUTO) 4 % (0-12); NEUTROPHILS # (AUTO) 8.3 10^3/uL (1.8-7.8); NEUTROPHILS % (AUTO) 85 % (42-75); PLATELET COUNT 300 10^3/uL (130-400); WHITE BLOOD COUNT 9.7 10^3/uL (4.3-11.0)
[2022-02-22] MEDS: HYOSCYAMINE 0.125 MG TAB PO PRN (07:03)
[2022-02-22] MEDS: NS IV 500 ML 500 ML IV SCH ×2 (07:03→23:50)
[2022-02-22] MEDS ORDERED: HYOSCYAMINE 0.125 MG (LEVSIN) TAB PO PRN (07:30)
[2022-02-22] MEDS ORDERED: ALPRAZolam 1 MG (XANAX) TAB PO PRN (07:30)
[2022-02-22] MEDS ORDERED: PROMETHAZINE 25 MG (PHENERGAN) TAB PO PRN (07:30)
--- NOTE | 2022-02-22 07:44 | Progress Note ---
Subjective Date Seen by a Provider: Feb 22, 2022 Time Seen by a Provider: 07:25 Subjective/Events-last exam Feeling a little better with regards to breathing easier. Still coughing Focused Exam Lactate Level 02/21/22 09:30: Lactic Acid Level 2.54*H 02/21/22 11:25: Lactic Acid Level 3.36*H 02/21/22 15:20: Lactic Acid Level 3.88*H Objective Exam Vital Signs Date Time Temp Pulse Resp B/P (MAP) Pulse Ox O2 Delivery O2 Flow Rate FiO2 02/22/22 07:33 95 Nasal Cannula 3.00 02/22/22 07:00 110 02/22/22 03:23 36.0 88 20 124/80 (95) 92 Nasal Cannula 3.00 02/22/22 02:45 95 Nasal Cannula 3.00 02/22/22 00:26 95 02/21/22 23:15 36.6 94 20 116/76 (89) 95 Nasal Cannula 3.00 02/21/22 22:00 96 Nasal Cannula 3.00 02/21/22 20:00 Nasal Cannula 3.00 02/21/22 19:18 35.9 124 20 125/64 (84) 94 Nasal Cannula 3.00 02/21/22 18:59 116 02/21/22 18:53 95 Nasal Cannula 3.00 02/21/22 15:23 36.6 110 20 150/75 (100) 93 Nasal Cannula 3.00 02/21/22 15:15 94 Nasal Cannula 3.00 02/21/22 15:10 100 02/21/22 15:09 93 Nasal Cannula 5.00 02/21/22 12:22 36.9 120 92 40 02/21/22 11:42 36.3 107 20 119/78 (92) 93 Nasal Cannula 4.00 02/21/22 11:13 Nasal Cannula 4.00 02/21/22 10:39 36.5 115 20 148/88 (108) 92 Nasal Cannula 4.00 02/21/22 10:26 105 15 125/85 93 Nasal Cannula 5.00 02/21/22 07:52 95 Nasal Cannula 5.00 I & O 02/22/22 07:00 Intake Total 1200 ml Output Total 800 ml Balance 400 ml Capillary Refill : Less Than 3 Seconds General Appearance: No Apparent Distress Neck: Supple Respiratory: Rales (bases), Wheezing Cardiovascular: Regular Rate, Rhythm Results Lab Laboratory Tests 02/21/22 08:06: SARS-CoV-2 RNA (RT-PCR) Not Detected 02/21/22 09:30: Lactic Acid Level 2.54*H 02/21/22 11:25: Lactic Acid Level 3.36*H 02/21/22 15:20: Lactic Acid Level 3.88*H 02/22/22 05:24: White Blood Count 9.7, Red Blood Count 4.51, Hemoglobin 12.2, Hematocrit 39, Mean Corpuscular Volume 86, Mean Corpuscular Hemoglobin 27, Mean Corpuscular Hemoglobin Concent 32, Red Cell Distribution Width 16.5H, Platelet Count 300, Mean Platelet Volume 9.2, Immature Granulocyte % (Auto) 0, Neutrophils (%) (Auto) 85H, Lymphocytes (%) (Auto) 11L, Monocytes (%) (Auto) 4, Eosinophils (%) (Auto) 0, Basophils (%) (Auto) 0, Neutrophils # (Auto) 8.3H, Lymphocytes # (Auto) 1.0, Monocytes # (Auto) 0.4, Eosinophils # (Auto) 0.0, Basophils # (Auto) 0.0, Immature Granulocyte # (Auto) 0.0 Assessment/Plan Assessment/Plan Assess & Plan/Chief Complaint 1. Pneumonia -She has been initiated on ceftriaxone 1 g every 24 hours 02/22 -day 2 ceftriaxone 2. COPD exacerbation -She will have Solu-Medrol 80 mg every 8 hours IV -She does have albuterol breathing treatments scheduled given by RT 3. Elevated lactic acid -I suspect this is most likely related to excessive use of albuterol 02/22 -Her WBC is normal. No lactic acid ordered 4. History of PE and this has been excluded through emergency department Clinical Quality Measures Admission Status Admission Dx 1. Pneumonia -She has been initiated on ceftriaxone 1 g every 24 hours 2. COPD exacerbation -She will have Solu-Medrol 80 mg every 8 hours IV -She does have albuterol breathing treatments scheduled given by RT 3. Elevated lactic acid -I suspect this is most likely related to excessive use of albuterol 4. History of PE and this has been excluded through emergency department LEAH WOLF MD Feb 22, 2022 07:44
[2022-02-22] MEDS: PANTOPRAZOLE 40 MG (PROTONIX) TAB PO SCH (07:59)
[2022-02-22] MEDS: FUROSEMIDE 40 MG (LASIX) TAB PO SCH (07:59)
[2022-02-22] MEDS: LORATADINE (CLARITIN) 10 MG TAB PO SCH (07:59)
[2022-02-22] MEDS: KCL 10 MEQ TAB (MICRO K) PO SCH ×2 (07:59→19:47)
[2022-02-22] MEDS: cefTRIAXone 1 GM PRE-MIX 50 ML IV SCH (07:59)
[2022-02-22] MEDS: warFARin 4 MG (COUMADIN) TAB PO SCH (18:01)
[2022-02-22] MEDS: MONTELUKAST 10 MG (SINGULAIR) TAB PO SCH (19:47)
[2022-02-22] MEDS: ACETAMINOPHEN 500 MG TAB (TYLENOL) PO PRN (19:52)
[2022-02-23] VITALS (8 sets, daily range): BP systolic 102–143; BP diastolic 65–87
[2022-02-23] MEDS: RT-ALBUTEROL/IPRATROPIUM 3 ML (DUONEB) VIAL INH SCH ×6 (04:16→22:08)
[2022-02-23] MEDS: guaiFENesin/CODEINE (ROBITUSSIN AC) 10ML UDC PO PRN ×2 (05:16→20:37)
[2022-02-23] MEDS: methylPREDNISolone 40 MG/ML (Solu-MEDROL) VIAL IV SCH ×3 (05:17→21:36)
[2022-02-23] MEDS: LORATADINE (CLARITIN) 10 MG TAB PO SCH (08:46)
[2022-02-23] MEDS: FUROSEMIDE 40 MG (LASIX) TAB PO SCH (08:46)
[2022-02-23] MEDS: cefTRIAXone 1 GM PRE-MIX 50 ML IV SCH (08:46)
[2022-02-23] MEDS: KCL 10 MEQ TAB (MICRO K) PO SCH ×2 (08:46→20:19)
[2022-02-23] MEDS: PANTOPRAZOLE 40 MG (PROTONIX) TAB PO SCH (08:46)
--- NOTE | 2022-02-23 10:27 | Progress Note ---
Subjective Date Seen by a Provider: Feb 23, 2022 Time Seen by a Provider: 09:40 Subjective/Events-last exam Overall still has some shortness of breath and wheezing. Having issues with her bowels as well. She gets "bloating' and constipated sometimes while in hospital. Focused Exam Lactate Level 02/21/22 09:30: Lactic Acid Level 2.54*H 02/21/22 11:25: Lactic Acid Level 3.36*H 02/21/22 15:20: Lactic Acid Level 3.88*H Objective Exam Vital Signs Date Time Temp Pulse Resp B/P (MAP) Pulse Ox O2 Delivery O2 Flow Rate FiO2 02/23/22 08:52 Nasal Cannula 3.00 02/23/22 08:08 36.9 110 18 134/67 (89) 91 Nasal Cannula 3.00 02/23/22 07:00 112 02/23/22 06:11 96 Nasal Cannula 3.00 02/23/22 04:00 36.3 94 18 132/87 (102) 94 Nasal Cannula 3.00 02/23/22 00:41 107 02/22/22 23:37 36.2 104 18 120/75 (90) 93 Nasal Cannula 3.00 02/22/22 23:23 95 Nasal Cannula 3.00 02/22/22 19:56 94 Nasal Cannula 3.00 02/22/22 19:36 36.5 114 18 123/64 (83) 94 Nasal Cannula 3.00 02/22/22 19:00 113 02/22/22 18:57 95 Nasal Cannula 3.00 02/22/22 15:30 36.5 109 17 120/65 (83) 93 Nasal Cannula 3.00 02/22/22 15:01 95 Nasal Cannula 3.00 02/22/22 13:00 113 02/22/22 12:46 36.5 110 18 144/88 (106) 92 Nasal Cannula 2.00 02/22/22 11:23 36.4 112 18 117/69 (85) 92 Nasal Cannula 3.00 02/22/22 10:40 95 Nasal Cannula 3.00 I & O 02/23/22 07:00 Intake Total 2110 ml Output Total 2900 ml Balance -790 ml Capillary Refill : Less Than 3 Seconds General Appearance: No Apparent Distress HEENT: Pharynx Normal Neck: Supple Respiratory: Wheezing (primary in all lung howard) Cardiovascular: Regular Rate, Rhythm Gastrointestinal: soft, distended (slight); No tenderness Results Lab Microbiology 02/21/22 Blood Culture - Preliminary, Resulted No growth Assessment/Plan Assessment/Plan Assess & Plan/Chief Complaint 1. Pneumonia -She has been initiated on ceftriaxone 1 g every 24 hours 02/22 -day 2 ceftriaxone 02/23 -day 3 ceftriaxone -Check cbc in the am of 02/24 2. COPD exacerbation -She will have Solu-Medrol 80 mg every 8 hours IV -She does have albuterol breathing treatments scheduled given by RT 02/23 -continue with Solumedrol at 80mg IV q 8hrs -she is using albuterol every 4 hours as needed for wheezing 3. Elevated lactic acid -I suspect this is most likely related to excessive use of albuterol 02/22 -Her WBC is normal. No lactic acid ordered 4. History of PE and this has been excluded through emergency department -INR in the am of 02/24 5. [facility] Clinical Quality Measures Admission Status Admission Dx 1. Pneumonia -She has been initiated on ceftriaxone 1 g every 24 hours 2. COPD exacerbation -She will have Solu-Medrol 80 mg every 8 hours IV -She does have albuterol breathing treatments scheduled given by RT 3. Elevated lactic acid -I suspect this is most likely related to excessive use of albuterol 4. History of PE and this has been excluded through emergency department LEAH WOLF MD Feb 23, 2022 10:27
[2022-02-23] MEDS ORDERED: polyethylene glycoL POWDER 17 GM (MIRALAX) PACK PO NR (11:00)
[2022-02-23] MEDS: NS IV 500 ML 500 ML IV SCH (17:30)
[2022-02-23] MEDS ORDERED: warFARin 5 MG (COUMADIN) TAB PO SCH (18:00)
[2022-02-23] MEDS: MONTELUKAST 10 MG (SINGULAIR) TAB PO SCH (20:18)
[2022-02-24] MEDS: RT-ALBUTEROL/IPRATROPIUM 3 ML (DUONEB) VIAL INH SCH ×6 (02:30→21:45)
[2022-02-24 03:41] VITALS: BP 154/87
[2022-02-24] MEDS: methylPREDNISolone 40 MG/ML (Solu-MEDROL) VIAL IV SCH ×3 (05:53→21:54)
[2022-02-24 05:56] LABS: BASOPHILS % (AUTO) 0 % (0-10); EOSINOPHILS % (AUTO) 0 % (0-10); HEMATOCRIT 38 % (35-52); LYMPHOCYTES % (AUTO) 7 % (12-44); MEAN CORPUSCULAR HEMOGLOBIN 27 pg (25-34); MEAN CORPUSCULAR HGB CONC 32 g/dL (32-36); MEAN CORPUSCULAR VOLUME 86 fL (80-99); MEAN PLATELET VOLUME 8.9 fL (9.0-12.2); MONOCYTES # (AUTO) 0.6 10^3/uL (0.0-1.0); MONOCYTES % (AUTO) 4 % (0-12); NEUTROPHILS # (AUTO) 11.8 10^3/uL (1.8-7.8); NEUTROPHILS % (AUTO) 88 % (42-75); PLATELET COUNT 310 10^3/uL (130-400); WHITE BLOOD COUNT 13.5 10^3/uL (4.3-11.0)
[2022-02-24] MEDS: guaiFENesin/CODEINE (ROBITUSSIN AC) 10ML UDC PO PRN ×3 (06:04→23:23)
[2022-02-24 06:11] LABS: INR 1.8 (0.8-1.4); PROTHROMBIN TIME PATIENT 21.3 SEC (12.2-14.7)
[2022-02-24 06:22] LABS: LYMPHOCYTES % (MANUAL) 7 %; MONOCYTES % (MANUAL) 4 %; NEUTROPHILS % (MANUAL) 89 %; RBC MORPH NORMAL
[2022-02-24 07:24] VITALS: BP 143/76
[2022-02-24] MEDS: FUROSEMIDE 40 MG (LASIX) TAB PO SCH (08:36)
[2022-02-24] MEDS: LORATADINE (CLARITIN) 10 MG TAB PO SCH (08:36)
[2022-02-24] MEDS: cefTRIAXone 1 GM PRE-MIX 50 ML IV SCH (08:36)
[2022-02-24] MEDS: KCL 10 MEQ TAB (MICRO K) PO SCH ×2 (08:36→20:17)
[2022-02-24] MEDS: PANTOPRAZOLE 40 MG (PROTONIX) TAB PO SCH (08:36)
--- NOTE | 2022-02-24 08:55 | Progress Note ---
Subjective Date Seen by a Provider: Feb 24, 2022 Time Seen by a Provider: 08:50 Subjective/Events-last exam Breathing a little better. Less wheezing. Having constipation. Focused Exam Lactate Level 02/21/22 09:30: Lactic Acid Level 2.54*H 02/21/22 11:25: Lactic Acid Level 3.36*H 02/21/22 15:20: Lactic Acid Level 3.88*H Objective Exam Vital Signs Date Time Temp Pulse Resp B/P (MAP) Pulse Ox O2 Delivery O2 Flow Rate FiO2 02/24/22 07:24 36.9 95 18 143/76 (98) 93 Nasal Cannula 3.50 02/24/22 07:00 101 02/24/22 06:16 94 Nasal Cannula 3.00 02/24/22 03:41 36.4 97 16 154/87 (109) 97 Nasal Cannula 3.00 02/24/22 02:32 94 Nasal Cannula 3.00 02/24/22 01:00 90 02/23/22 23:50 36.3 94 16 143/71 (95) 94 Nasal Cannula 3.00 02/23/22 22:09 95 Nasal Cannula 3.00 02/23/22 20:20 Nasal Cannula 3.00 02/23/22 19:27 36.6 99 19 133/75 (94) 93 Nasal Cannula 3.00 02/23/22 19:13 Nasal Cannula 3.00 02/23/22 19:00 104 02/23/22 17:10 36.3 95 18 129/80 (96) 95 Nasal Cannula 3.00 02/23/22 15:28 35.8 112 17 102/72 (82) 91 Nasal Cannula 3.00 02/23/22 14:52 95 Nasal Cannula 3.00 02/23/22 12:42 124 02/23/22 12:40 36.4 111 18 139/84 (102) 94 Nasal Cannula 3.00 02/23/22 11:08 36.8 115 18 133/65 (87) 94 Nasal Cannula 3.00 02/23/22 10:52 97 Nasal Cannula 3.00 I & O 02/24/22 07:00 Intake Total 2920 ml Output Total 4400 ml Balance -1480 ml Capillary Refill : Less Than 3 Seconds General Appearance: No Apparent Distress Neck: Non Tender, Supple Respiratory: Wheezing (mild and noted in apical regions) Cardiovascular: Regular Rate, Rhythm Gastrointestinal: soft; No guarding Results Lab Laboratory Tests 02/24/22 05:16: White Blood Count 13.5H, Red Blood Count 4.44, Hemoglobin 12.0, Hematocrit 38, Mean Corpuscular Volume 86, Mean Corpuscular Hemoglobin 27, Mean Corpuscular Hemoglobin Concent 32, Red Cell Distribution Width 17.0H, Platelet Count 310, Mean Platelet Volume 8.9L, Immature Granulocyte % (Auto) 1, Neutrophils (%) (Auto) 88H, Lymphocytes (%) (Auto) 7L, Monocytes (%) (Auto) 4, Eosinophils (%) (Auto) 0, Basophils (%) (Auto) 0, Neutrophils # (Auto) 11.8H, Lymphocytes # (Auto) 1.0, Monocytes # (Auto) 0.6, Eosinophils # (Auto) 0.0, Basophils # (Auto) 0.0, Immature Granulocyte # (Auto) 0.1, Neutrophils % (Manual) 89, Lymphocytes % (Manual) 7, Monocytes % (Manual) 4, Blood Morphology Comment NORMAL, Prothrombin Time 21.3H, INR Comment 1.8H Microbiology 02/21/22 Blood Culture - Preliminary, Resulted No growth Assessment/Plan Assessment/Plan Assess & Plan/Chief Complaint 1. Pneumonia -She has been initiated on ceftriaxone 1 g every 24 hours 02/22 -day 2 ceftriaxone 02/23 -day 3 ceftriaxone -Check cbc in the am of 02/24 02/24 -day 4 ceftriaxone 2. COPD exacerbation -She will have Solu-Medrol 80 mg every 8 hours IV -She does have albuterol breathing treatments scheduled given by RT 02/23 -continue with Solumedrol at 80mg IV q 8hrs -she is using albuterol every 4 hours as needed for wheezing 3. Elevated lactic acid -I suspect this is most likely related to excessive use of albuterol 02/22 -Her WBC is normal. No lactic acid ordered 4. History of PE and this has been excluded through emergency department -INR in the am of 02/24 5. Constipation -miralax Clinical Quality Measures Admission Status Admission Dx 1. Pneumonia -She has been initiated on ceftriaxone 1 g every 24 hours 2. COPD exacerbation -She will have Solu-Medrol 80 mg every 8 hours IV -She does have albuterol breathing treatments scheduled given by RT 3. Elevated lactic acid -I suspect this is most likely related to excessive use of albuterol 4. History of PE and this has been excluded through emergency department LEAH WOLF MD Feb 24, 2022 08:55
[2022-02-24] MEDS ORDERED: BISACODYL 10 MG SUPP (DULCOLAX) PR ONE (09:00)
[2022-02-24 11:08] VITALS: BP 113/69
[2022-02-24] MEDS: polyethylene glycoL POWDER 17 GM (MIRALAX) PACK PO SCH ×2 (11:23→20:17)
[2022-02-24] MEDS: NYSTATIN ORAL SUSP 5 ML UDC PO SCH ×3 (11:24→23:23)
[2022-02-24 15:10] VITALS: BP 134/76
[2022-02-24] MEDS: warFARin 4 MG (COUMADIN) TAB PO SCH (17:32)
[2022-02-24 19:27] VITALS: BP 117/72
[2022-02-24] MEDS: MONTELUKAST 10 MG (SINGULAIR) TAB PO SCH (20:17)
[2022-02-24] MEDS: NS IV 500 ML 500 ML IV SCH (20:24)
[2022-02-24] MEDS ORDERED: polyethylene glycoL POWDER 17 GM (MIRALAX) PACK PO SCH (21:00)
[2022-02-24] MEDS ORDERED: BISACODYL 10 MG SUPP (DULCOLAX) ONE (21:49)
[2022-02-25 00:14] VITALS: BP 129/75
[2022-02-25] MEDS: RT-ALBUTEROL/IPRATROPIUM 3 ML (DUONEB) VIAL INH SCH ×6 (02:10→22:06)
[2022-02-25] MEDS: NS IV 500 ML 500 ML IV SCH ×2 (02:10→19:06)
[2022-02-25 04:52] VITALS: BP 126/74
[2022-02-25 05:38] LABS: BASOPHILS % (AUTO) 0 % (0-10); EOSINOPHILS % (AUTO) 0 % (0-10); HEMATOCRIT 40 % (35-52); HEMOGLOBIN 12.3 g/dL (11.5-16.0); LYMPHOCYTES # (AUTO) 0.8 10^3/uL (1.0-4.0); LYMPHOCYTES % (AUTO) 7 % (12-44); MEAN CORPUSCULAR HEMOGLOBIN 27 pg (25-34); MEAN CORPUSCULAR HGB CONC 31 g/dL (32-36); MEAN CORPUSCULAR VOLUME 86 fL (80-99); MEAN PLATELET VOLUME 8.9 fL (9.0-12.2); MONOCYTES # (AUTO) 0.6 10^3/uL (0.0-1.0); MONOCYTES % (AUTO) 5 % (0-12); NEUTROPHILS % (AUTO) 87 % (42-75); PLATELET COUNT 310 10^3/uL (130-400); WHITE BLOOD COUNT 11.5 10^3/uL (4.3-11.0)
[2022-02-25 05:56] LABS: INR 2.1 (0.8-1.4); PROTHROMBIN TIME PATIENT 23.6 SEC (12.2-14.7)
[2022-02-25] MEDS: methylPREDNISolone 40 MG/ML (Solu-MEDROL) VIAL IV SCH ×3 (06:03→21:58)
[2022-02-25] MEDS: NYSTATIN ORAL SUSP 5 ML UDC PO SCH ×4 (06:03→23:36)
[2022-02-25 07:40] VITALS: BP 136/75
[2022-02-25] MEDS: LORATADINE (CLARITIN) 10 MG TAB PO SCH (09:34)
[2022-02-25] MEDS: FUROSEMIDE 40 MG (LASIX) TAB PO SCH (09:34)
[2022-02-25] MEDS: guaiFENesin/CODEINE (ROBITUSSIN AC) 10ML UDC PO PRN ×2 (09:34→20:09)
[2022-02-25] MEDS: KCL 10 MEQ TAB (MICRO K) PO SCH ×2 (09:34→20:09)
[2022-02-25] MEDS: PANTOPRAZOLE 40 MG (PROTONIX) TAB PO SCH (09:34)
[2022-02-25] MEDS: polyethylene glycoL POWDER 17 GM (MIRALAX) PACK PO SCH ×2 (09:35→20:08)
[2022-02-25] MEDS: cefTRIAXone 1 GM PRE-MIX 50 ML IV SCH (09:35)
[2022-02-25] MEDS: ACETAMINOPHEN 500 MG TAB (TYLENOL) PO PRN ×2 (11:05→20:09)
--- NOTE | 2022-02-25 11:05 | Progress Note ---
Subjective Date Seen by a Provider: Feb 25, 2022 Time Seen by a Provider: 09:30 Subjective/Events-last exam Still coughing. No fever. Having a sore throat. Constipation improved. Objective Exam Vital Signs Date Time Temp Pulse Resp B/P (MAP) Pulse Ox O2 Delivery O2 Flow Rate FiO2 02/25/22 08:00 Nasal Cannula 3.00 02/25/22 07:40 36.6 97 20 136/75 (95) 92 Nasal Cannula 3.00 02/25/22 07:23 95 Nasal Cannula 3.00 02/25/22 07:00 121 02/25/22 04:52 36.6 104 18 126/74 (91) 92 Nasal Cannula 3.00 02/25/22 02:17 Nasal Cannula 3.00 02/25/22 01:00 91 02/25/22 00:14 36.5 97 18 129/75 (93) 95 Nasal Cannula 3.00 02/24/22 21:45 95 Nasal Cannula 3.00 02/24/22 20:25 Nasal Cannula 3.00 02/24/22 19:27 37.7 105 20 117/72 (87) 92 Nasal Cannula 3.00 02/24/22 19:00 120 02/24/22 18:36 94 Nasal Cannula 3.00 02/24/22 15:51 93 Nasal Cannula 3.50 02/24/22 15:10 36.3 108 19 134/76 (95) 94 Nasal Cannula 3.00 02/24/22 12:40 105 02/24/22 11:08 36.4 110 18 113/69 (84) 91 Nasal Cannula 3.00 I & O 02/25/22 07:00 Intake Total 2685 ml Output Total 4200 ml Balance -1515 ml Capillary Refill : Less Than 3 Seconds General Appearance: No Apparent Distress HEENT: Other (pharynx with soft palate erythema and whitish exudates) Respiratory: Crackles, Rhonci, Wheezing Gastrointestinal: soft Results Lab Laboratory Tests 02/25/22 04:45: White Blood Count 11.5H, Red Blood Count 4.62, Hemoglobin 12.3, Hematocrit 40, Mean Corpuscular Volume 86, Mean Corpuscular Hemoglobin 27, Mean Corpuscular Hemoglobin Concent 31L, Red Cell Distribution Width 16.9H, Platelet Count 310, Mean Platelet Volume 8.9L, Immature Granulocyte % (Auto) 1, Neutrophils (%) (Auto) 87H, Lymphocytes (%) (Auto) 7L, Monocytes (%) (Auto) 5, Eosinophils (%) (Auto) 0, Basophils (%) (Auto) 0, Neutrophils # (Auto) 10.0H, Lymphocytes # (Auto) 0.8L, Monocytes # (Auto) 0.6, Eosinophils # (Auto) 0.0, Basophils # (Auto) 0.0, Immature Granulocyte # (Auto) 0.2H, Prothrombin Time 23.6H, INR Comment 2.1H Microbiology 02/21/22 Blood Culture - Preliminary, Resulted No growth Assessment/Plan Assessment/Plan Assess & Plan/Chief Complaint 1. Pneumonia -She has been initiated on ceftriaxone 1 g every 24 hours 02/22 -day 2 ceftriaxone 02/23 -day 3 ceftriaxone -Check cbc in the am of 02/24 02/24 -day 4 ceftriaxone 02/25 -day 5 ceftriaxone -plan on home in am and to restart cefprozil 2. COPD exacerbation -She will have Solu-Medrol 80 mg every 8 hours IV -She does have albuterol breathing treatments scheduled given by RT 02/23 -continue with Solumedrol at 80mg IV q 8hrs -she is using albuterol every 4 hours as needed for wheezing 3. Elevated lactic acid -I suspect this is most likely related to excessive use of albuterol 02/22 -Her WBC is normal. No lactic acid ordered 4. History of PE and this has been excluded through emergency department -INR in the am of 02/24 5. Constipation -miralax 6. Oral thrush -on nystatin S&S qid Clinical Quality Measures Admission Status Admission Dx 1. Pneumonia -She has been initiated on ceftriaxone 1 g every 24 hours 2. COPD exacerbation -She will have Solu-Medrol 80 mg every 8 hours IV -She does have albuterol breathing treatments scheduled given by RT 3. Elevated lactic acid -I suspect this is most likely related to excessive use of albuterol 4. History of PE and this has been excluded through emergency department LEAH WOLF MD Feb 25, 2022 11:04
[2022-02-25 11:14] VITALS: BP 123/73
[2022-02-25 15:31] VITALS: BP 136/76
[2022-02-25] MEDS: warFARin 4 MG (COUMADIN) TAB PO SCH (17:17)
[2022-02-25] MEDS: MONTELUKAST 10 MG (SINGULAIR) TAB PO SCH (20:09)
[2022-02-25 20:46] VITALS: BP 128/73
[2022-02-26 00:03] VITALS: BP 130/72
[2022-02-26] MEDS: RT-ALBUTEROL/IPRATROPIUM 3 ML (DUONEB) VIAL INH SCH ×3 (02:31→10:15)
[2022-02-26 03:49] VITALS: BP 135/83
[2022-02-26] MEDS: NYSTATIN ORAL SUSP 5 ML UDC PO SCH (05:56)
[2022-02-26] MEDS: methylPREDNISolone 40 MG/ML (Solu-MEDROL) VIAL IV SCH (05:56)
[2022-02-26 07:26] VITALS: BP 153/85
[2022-02-26] MEDS: FUROSEMIDE 40 MG (LASIX) TAB PO SCH (07:38)
[2022-02-26] MEDS: KCL 10 MEQ TAB (MICRO K) PO SCH (07:38)
[2022-02-26] MEDS: PANTOPRAZOLE 40 MG (PROTONIX) TAB PO SCH (07:39)
[2022-02-26] MEDS: cefTRIAXone 1 GM PRE-MIX 50 ML IV SCH (07:39)
[2022-02-26] MEDS: LORATADINE (CLARITIN) 10 MG TAB PO SCH (07:39)
[2022-02-26] MEDS ORDERED: NYST1000 PO (07:43)
--- NOTE | 2022-02-26 07:44 | Discharge Inst-Simple/Standard ---
Discharge Inst-Standard Reconcile Patient Problems Problems Reviewed?: Yes Discharge Medications New, Converted or Re-Newed RX: Transmitted to [facility]acy ([facility]) Patient Instructions/Follow Up Plan of Care/Instructions/FU: Dr Wolf in 1 week Activity as Tolerated: Yes Discharge Diet: Regular Diet Return to The Hospital For: Worsening shortness of breath, oxygen saturations consistently below 88% LEAH WOLF MD Feb 26, 2022 07:44
--- NOTE | 2022-02-26 07:50 | Discharge Summary ---
Diagnosis/Chief Complaint Date of Admission Feb 22, 2022 at 13:17 Date of Discharge February 26, 2022 Discharge Date: Feb 26, 2022 Admission Diagnosis Admission Diagnosis 1. Pneumonia right lower lobe 2. COPD exacerbation Discharge Diagnosis 1. Pneumonia right lower lobe 2. COPD exacerbation 3. Constipation 4. Oral thrush Reason Hospital Visit 61-year-old female presents to [facility] emergency department after having increasing shortness of breath. She was seen in my office yesterday morning and prescribed prednisone tapering as well as placement on 500 mg cefprozil. Apparently the symptoms worsened overnight and in the morning of February 21 this prompted her to go to the emergency department. She does have a history of wear ing nasal cannula oxygen as well as history of COPD. She does have additionally history of pulmonary embolism and does take Coumadin. She does frequently have her INR checked. At this time she denies any significant fever. She did take a home COVID test which was negative. Discharge Summary Hospital Course Was the Problem List Reviewed?: Yes Hospital Course patient was admitted to [facility] on February 22, 2022 with right lower lobe pneumonia as well as COPD exacerbation. She was initiated on Solu-Medrol 80 mg intravenously every 8 hours. She was also given her ceftriaxone 1 g every 24 hours. Respiratory therapy also involved with giving albuterol breathing treatments. During the course of her stay INR was monitored due to her history of being on Coumadin. She also had CBC followed during the course of her stay with white count remaining in the normal range. Elevated lactic acid was felt secondary to overuse of her albuterol at home. Also during the course of her stay she had constipation that was resolved with MiraLAX as well as oral thrush that was improved with oral nystatin swish and swallow 5 cc 4 times a day. Ultimately she remained afebrile during the course of stay and was felt ready for dismissal on the morning of February 26, 2022. She will follow-up with Dr. Wolf within 1 week. Labs Laboratory Tests 02/24/22 05:16: White Blood Count 13.5H, Red Cell Distribution Width 17.0H, Mean Platelet Volume 8.9L, Neutrophils (%) (Auto) 88H, Lymphocytes (%) (Auto) 7L, Neutrophils # (Auto) 11.8H, Prothrombin Time 21.3H, INR Comment 1.8H 02/25/22 04:45: White Blood Count 11.5H, Red Cell Distribution Width 16.9H, Mean Platelet Volume 8.9L, Neutrophils (%) (Auto) 87H, Lymphocytes (%) (Auto) 7L, Neutrophils # (Auto) 10.0H, Prothrombin Time 23.6H, INR Comment 2.1H, Mean Corpuscular Hemoglobin Concent 31L, Lymphocytes # (Auto) 0.8L, Immature Granulocyte # (Auto) 0.2H Procedures None. Discharge Physical Examination Allergies: Coded Allergies: aspirin (Verified Allergy, Severe, ANAPHYLAXIS, 03/03/19) ibuprofen (Verified Allergy, Severe, ANAPHYLAXIS, 03/03/19) ketorolac (Verified Allergy, Severe, ANAPHYLAXIS, 03/03/19) tetanus and diphtheria toxoids (Unverified Allergy, Severe, ANAPHYLAXIS, 03/03/19) aloe (Verified Allergy, Mild, RASH, 03/03/19) latex (Verified Allergy, Mild, RASH, 03/03/19) OCCASIONALLY IS IRRITATING SKIN scopolamine (Verified Allergy, Mild, 03/03/19) black pepper (Verified Allergy, Unknown, 10/20/21) chocolate flavor (Verified Allergy, Unknown, 10/20/21) coconut (Verified Allergy, Unknown, 10/20/21) tomato (Verified Allergy, Unknown, Rash, 10/20/21) iodine (Verified Adverse Reaction, Unknown, 03/03/19) Patient states she got dizzy, diaphoretic and saw stars. Uncoded Allergies: ALOE VERA (Allergy, Unknown, 12/23/05) SILK SUTURES (Adverse Reaction, Unknown, BODY REJECTS SUTURES, 10/07/13) Vitals & I&Os Vital Signs Date Time Temp Pulse Resp B/P (MAP) Pulse Ox O2 Delivery O2 Flow Rate FiO2 02/26/22 07:26 36.4 91 18 153/85 (107) 94 Nasal Cannula 3.00 02/21/22 12:22 40 General Appearance: Alert, Oriented X3 HEENT: Other (pharynx with mild erythema and less whitish exudate) Respiratory: Normal Air Movement, Other (faint rales in lung bases) Cardiovascular: Regular Rate Abdominal: Normal Bowel Sounds, Soft Skin: No Rashes Discharge Home Medications Reviewed and agree with Discharge Medication list on patient's Discharge Instruction sheet Instructions to Patient/Family Please see electronic discharge instructions given to patient. LEAH WLOF MD Feb 26, 2022 07:50
[2022-02-26] MEDS: polyethylene glycoL POWDER 17 GM (MIRALAX) PACK PO SCH (09:27)
[2022-02-26 11:25] VITALS: BP 153/85
== END 2022-02-26 11:25 | disposition home or self-care (01) | DRG 190 ==
LOC: EDUNIT# 07:04 → ER 07:07 → 4TH 10:00 → OBSVTOIN 02-22 13:17
PROVIDERS: ADMIT Family Medicine; ATTEND Family Medicine
DX: J44.1 Chronic obstructive pulmonary disease with (acute) exacerbation (principal); J18.9 Pneumonia, unspecified organism; B37.0 Candidal stomatitis; J44.0 Chronic obstructive pulmonary disease with (acute) lower respiratory infection; K59.00 Constipation, unspecified; Z99.81 Dependence on supplemental oxygen; Z86.718 Personal history of other venous thrombosis and embolism; Z79.01 Long term (current) use of anticoagulants; Z20.822 Contact with and (suspected) exposure to COVID-19; Z86.711 Personal history of pulmonary embolism
CPT/HCPCS: 36415; 71045; 71275; 80053; 83605; 84484; 85007; 85025; 85027; 85610; 87040; 87636; 93005; 94640; 94760; G0378

== ENCOUNTER 2022-02-23 13:12 | Outpatient (CLI) | payer MEDICAID ==
[~2022-02-23] VITALS: Ht 165.1 cm; Wt 100.0 kg
[~2022-02-23 13:12] MED LIST changes: +BUDE10.26 INH; +HYOS-20 PO; +ZINC50TA11 PO
[2022-02-26] MEDS ORDERED: NYST1000 PO (07:43)
== END 2022-02-23 13:54 ==
LOC: PREOP 13:12
PROVIDERS: ATTEND Specialist
DX: Z01.818 Encounter for other preprocedural examination (principal)

== ENCOUNTER → 2022-03-02 | Day surgery (SDC) | payer MEDICAID ==
[~2022-03-02] VITALS: Ht 165.1 cm; Wt 100.0 kg
[~2022-03-02] MED LIST changes: +MIDAZOLAM 2 MG/2 ML (VERSED) VIAL ONE; +MOXIFLOXACIN OPHTH SOLN 5 MG/ML 0.3 ML SYRINGE OP ONE; +POVIDONE (BETADINE) OPHTH SOLN 5% 30 ML OP ONE; +RT-ALBUTEROL SULF 2.5 MG/3 ML PRE-MIX VIAL IH SCH; +RT-LEVALBUTEROL (XOPENEX) 1.25 MG/3 ML NEB NON-FORMULARY ONE; +TIMOLOL MALEATE 0.5% 5 ML (TIMOPTIC) BTL OU PRN; +acetaZOLAMIDE ER 500 MG CAP (DIAMOX SEQUELS) PO ONE
[2022-03-02] MEDS: TETRACAINE 0.5% OPHTH SOLN 4 ML BTL (SINGLE DOSE ONLY) OU PRN ×3 (06:52→07:09)
[2022-03-02] MEDS: TROPICAMIDE 1% OPH SOLN (MYDRIACYL) 15 ML BTL OP SCH ×2 (06:59→07:11)
[2022-03-02] MEDS: PHENYLEPHRINE 10% OPHTH (NEO-SYN) 5 ML BTL OU SCH ×2 (06:59→07:10)
[2022-03-02 07:14] VITALS: BP 125/88
--- NOTE | 2022-03-02 07:24 | Ophthalmologist Pre-Op Note ---
Pre-Operative Progress Note H&P Reviewed The H&P was reviewed, patient examined and no changes noted. Date H&P Reviewed: Mar 02, 2022 Time H&P Reviewed: 07:24 Pre-Op Dx Cataract, Right Eye STAR ZHU MD Mar 02, 2022 07:24
--- NOTE | 2022-03-02 07:42 | Ophthalmology Operative Report ---
Cataract removal/placement IOL PREOPERATIVE DIAGNOSIS: Cataract Right Eye POSTOPERATIVE DIAGNOSIS: Cataract Right Eye PROCEDURE: Cataract removal and placement of posterior chamber implant, right eye SURGEON: Benedict Zhu ANESTHESIA: Topical with sedation COMPLICATIONS: None ESTIMATED BLOOD LOSS: Minimal DESCRIPTION OF PROCEDURE: After proper informed consent was obtained, the patient, a 61 female, was taken to the Operating Room and the right eye was anesthetized with tetracaine. The right eye was then prepped and draped in the usual manner. A wire lid speculum was placed. A paracentesis was made at the left hand position. Preservative free lidocaine was injected into the anterior chamber followed by viscoelastic. A clear corneal incision was made in the temporal position. A capsulorrhexis was preformed and the central nuclear and cortical material were removed. The posterior capsule was polished and Filippo 19.5 [id number] IOL was placed into the capsular bag. The residual viscoelastic was aspirated and balanced saline solution was injected into the anterior chamber. Moxifloxacin was injected into the anterior chamber. The wound was checked and found to be water tight. The patient tolerated the procedure well without complications. BENEDICT ZHU MD Mar 02, 2022 07:42
--- NOTE | 2022-03-02 11:50 | Anesthesia-General Post-Op ---
MAC Patient Condition Mental Status/LOC: Same as Preop Cardiovascular: Satisfactory Nausea/Vomiting: Absent Respiratory: Satisfactory Pain: Controlled Complications: Absent Post Op Complications Complications None Follow Up Care/Instructions Patient Instructions None needed. Anesthesiology Discharge Order Discharge Order Patient is doing well, no complaints, stable vital signs, no apparent adverse anesthesia problems. No complications reported per nursing. CANDIDO LEON CRNA Mar 02, 2022 11:50
== END | disposition home or self-care (01) ==
LOC: SDC 06:23
PROVIDERS: ATTEND Specialist
DX: E11.36 Type 2 diabetes mellitus with diabetic cataract (principal); H25.9 Unspecified age-related cataract; Z87.891 Personal history of nicotine dependence; J45.909 Unspecified asthma, uncomplicated; Z79.899 Other long term (current) drug therapy

== ENCOUNTER 2022-03-09 11:46 | Outpatient (CLI) | payer MEDICAID ==
[~2022-03-09 11:46] MED LIST changes: +ALBU8.5H6 IH; -MIDAZOLAM 2 MG/2 ML (VERSED) VIAL ONE; -MOXIFLOXACIN OPHTH SOLN 5 MG/ML 0.3 ML SYRINGE OP ONE; -POVIDONE (BETADINE) OPHTH SOLN 5% 30 ML OP ONE; -RT-ALBUTEROL SULF 2.5 MG/3 ML PRE-MIX VIAL IH SCH; -RT-LEVALBUTEROL (XOPENEX) 1.25 MG/3 ML NEB NON-FORMULARY ONE; -TIMOLOL MALEATE 0.5% 5 ML (TIMOPTIC) BTL OU PRN; -acetaZOLAMIDE ER 500 MG CAP (DIAMOX SEQUELS) PO ONE
== END 2022-03-14 18:24 | disposition home or self-care (01) ==
LOC: PREOP 11:46
PROVIDERS: ATTEND Specialist
DX: Z01.818 Encounter for other preprocedural examination (principal)

== ENCOUNTER 2022-03-16 07:18 | Day surgery (SDC) | payer MEDICAID ==
[~2022-03-16] VITALS: Ht 165.1 cm; Wt 100.0 kg
[2022-03-16] MEDS ORDERED: TIMOLOL MALEATE 0.5% 5 ML (TIMOPTIC) BTL OU PRN (07:30)
[2022-03-16] MEDS ORDERED: POVIDONE (BETADINE) OPHTH SOLN 5% 30 ML OP ONE (07:30)
[2022-03-16] MEDS ORDERED: MOXIFLOXACIN OPHTH SOLN 5 MG/ML 0.3 ML SYRINGE OP ONE (07:30)
[2022-03-16] MEDS: TETRACAINE 0.5% OPHTH SOLN 4 ML BTL (SINGLE DOSE ONLY) OU PRN ×4 (07:34→07:50)
[2022-03-16] MEDS: PHENYLEPHRINE 10% OPHTH (NEO-SYN) 5 ML BTL OU SCH ×3 (07:40→07:50)
[2022-03-16] MEDS: TROPICAMIDE 1% OPH SOLN (MYDRIACYL) 15 ML BTL OP SCH ×3 (07:40→07:50)
[2022-03-16 07:45] VITALS: BP 159/98
[2022-03-16] MEDS ORDERED: MIDAZOLAM 2 MG/2 ML (VERSED) VIAL ONE (07:48)
--- NOTE | 2022-03-16 08:25 | Ophthalmologist Pre-Op Note ---
Pre-Operative Progress Note H&P Reviewed The H&P was reviewed, patient examined and no changes noted. Date H&P Reviewed: Mar 16, 2022 Time H&P Reviewed: 08:25 Pre-Op Dx Cataract, Left Eye STAR ZHU MD Mar 16, 2022 08:25
--- NOTE | 2022-03-16 08:44 | Ophthalmology Operative Report ---
Cataract removal/placement IOL PREOPERATIVE DIAGNOSIS: Cataract Left Eye POSTOPERATIVE DIAGNOSIS: Cataract Left Eye PROCEDURE: Cataract removal and placement of posterior chamber implant, left eye SURGEON: Benedict Zhu ANESTHESIA: Topical with sedation COMPLICATIONS: None ESTIMATED BLOOD LOSS: Minimal DESCRIPTION OF PROCEDURE: After proper informed consent was obtained, the patient, a 61 female, was taken to the Operating Room and the left eye was anesthetized with tetracaine. The left eye was then prepped and draped in the usual manner. A wire lid speculum was placed. A paracentesis was made at the left hand position. Preservative free lidocaine was injected into the anterior chamber followed by viscoelastic. A clear corneal incision was made in the temporal position. A capsulorrhexis was preformed and the central nuclear and cortical material were removed. The posterior capsule was polished and an Filippo 18.0 AU00T0 was placed into the capsular bag. The residual viscoelastic was aspirated and balanced saline solution was injected into the anterior chamber. Moxifloxacin was injected into the anterior chamber. The wound was checked and found to be water tight. The patient tolerated the procedure well without complications. BENEDICT ZHU MD Mar 16, 2022 08:44
[2022-03-16 08:50] VITALS: BP 131/93
[2022-03-16] MEDS ORDERED: acetaZOLAMIDE ER 500 MG CAP (DIAMOX SEQUELS) PO ONE (09:30)
--- NOTE | 2022-03-16 12:36 | Anesthesia-General Post-Op ---
MAC Patient Condition Mental Status/LOC: Same as Preop Cardiovascular: Satisfactory Nausea/Vomiting: Absent Respiratory: Satisfactory Pain: Controlled Complications: Absent Post Op Complications Complications None Follow Up Care/Instructions Patient Instructions None needed. Anesthesiology Discharge Order Discharge Order Patient is doing well, no complaints, stable vital signs, no apparent adverse anesthesia problems. No complications reported per nursing. ABI MITCHELL CRNA Mar 16, 2022 12:36
== END 2022-03-16 08:52 | disposition home or self-care (01) ==
LOC: SDC 07:18
PROVIDERS: ATTEND Specialist
DX: E11.36 Type 2 diabetes mellitus with diabetic cataract (principal); H25.9 Unspecified age-related cataract; Z87.891 Personal history of nicotine dependence

== ENCOUNTER 2022-03-20 10:20 | Outpatient (RCR) | payer MEDICAID ==
[~2022-03-20 10:20] MED LIST changes: -DOXY-311 PO; +DOXY-444 PO
[2022-03-20 10:53] LABS: INR 1.3 (0.8-1.4); PROTHROMBIN TIME PATIENT 16.6 SEC (12.2-14.7)
[2022-04-03 10:14] LABS: INR 2.6 (0.8-1.4); PROTHROMBIN TIME PATIENT 27.9 SEC (12.2-14.7)
== END 2022-04-11 | disposition home or self-care (01) ==
LOC: LAB 10:20
PROVIDERS: ATTEND Family Medicine
DX: Z86.718 Personal history of other venous thrombosis and embolism (principal); Z86.711 Personal history of pulmonary embolism
CPT/HCPCS: 36415; 85610

== ENCOUNTER 2022-05-10 13:38 | Emergency (ER) | payer MEDICAID ==
[~2022-05-10] VITALS: Ht 165.1 cm; Wt 99.7 kg
[2022-05-10] MEDS ORDERED: ACETAMINOPHEN 500 MG TAB (TYLENOL) PO STA (13:50)
[2022-05-10] MEDS ORDERED: NS IV 1000 ML 1,000 ML IV SCH (14:00)
[2022-05-10 14:21] LABS: BILIRUBIN,URINE NEGATIVE (NEGATIVE); CLARITY,URINE CLEAR; COLOR,URINE YELLOW; GLUCOSE, URINE (UA) NEGATIVE (NEGATIVE); KETONES,URINE TRACE (NEGATIVE); LEUKOCYTE ESTERASE ,URINE NEGATIVE (NEGATIVE); NITRITE,URINE NEGATIVE (NEGATIVE); PROTEIN,URINE NEGATIVE (NEGATIVE)
[2022-05-10 14:25] LABS: BASOPHILS % (AUTO) 1 % (0-10); EOSINOPHILS # (AUTO) 0.3 10^3/uL (0.0-0.3); EOSINOPHILS % (AUTO) 4 % (0-10); HEMATOCRIT 41 % (35-52); HEMOGLOBIN 12.9 g/dL (11.5-16.0); LYMPHOCYTES # (AUTO) 1.2 10^3/uL (1.0-4.0); LYMPHOCYTES % (AUTO) 16 % (12-44); MEAN CORPUSCULAR HEMOGLOBIN 27 pg (25-34); MEAN CORPUSCULAR HGB CONC 32 g/dL (32-36); MEAN CORPUSCULAR VOLUME 86 fL (80-99); MEAN PLATELET VOLUME 8.5 fL (9.0-12.2); MONOCYTES # (AUTO) 0.7 10^3/uL (0.0-1.0); MONOCYTES % (AUTO) 10 % (0-12); NEUTROPHILS # (AUTO) 5.2 10^3/uL (1.8-7.8); NEUTROPHILS % (AUTO) 70 % (42-75); PLATELET COUNT 257 10^3/uL (130-400); WHITE BLOOD COUNT 7.5 10^3/uL (4.3-11.0)
--- NOTE | 2022-05-10 14:28 | ED Cough/URI ---
General Chief Complaint: Cough/Cold/Flu Symptoms Stated Complaint: CHILLS| FEVER | Nursing Triage Note: PT AMB TO RM 9 WITH COMPLAINT OF COUGH, FEVER, SOA, AND SORE THROAT. STATES SYMPTOMS STARTED YESTERDAY History of Present Illness Date Seen by Provider: May 10, 2022 Time Seen by Provider: 13:45 Initial Comments 61-year-old female with known COPD and chronic respiratory problems presents for fever, cough, and shortness of breath. She was exposed to COVID-19 approximately 4 days ago. She is not vaccinated for COVID or influenza. She used a nebulized breathing treatment prior to arrival. She has been using oxygen per nasal cannula during the day at 1 to 2 L, she normally only wears it at night. She has had a fever up to 100.2. She has not taken Tylenol or ibuprofen for the fever. She denies any chest pain, mild nausea. Timing/Duration: getting worse Severity/Quality: productive cough Prior Episodes/Possible Cause: frequent episodes Associated Symptoms: cough, fever/chills, shortness of breath, wheezing Allergies and Home Medications Allergies Coded Allergies: aspirin (Verified Allergy, Severe, ANAPHYLAXIS, 03/03/19) ibuprofen (Verified Allergy, Severe, ANAPHYLAXIS, 03/03/19) ketorolac (Verified Allergy, Severe, ANAPHYLAXIS, 03/03/19) tetanus and diphtheria toxoids (Unverified Allergy, Severe, ANAPHYLAXIS, 03/03/19) aloe (Verified Allergy, Mild, RASH, 03/03/19) latex (Verified Allergy, Mild, RASH, 03/03/19) OCCASIONALLY IS IRRITATING SKIN scopolamine (Verified Allergy, Mild, 03/03/19) black pepper (Verified Allergy, Unknown, 10/20/21) chocolate flavor (Verified Allergy, Unknown, 10/20/21) coconut (Verified Allergy, Unknown, 10/20/21) tomato (Verified Allergy, Unknown, Rash, 10/20/21) iodine (Verified Adverse Reaction, Unknown, 03/03/19) Patient states she got dizzy, diaphoretic and saw stars. Uncoded Allergies: ALOE VERA (Allergy, Unknown, 12/23/05) SILK SUTURES (Adverse Reaction, Unknown, BODY REJECTS SUTURES, 10/07/13) Patient Home Medication List Home Medication List Reviewed: Yes Acetaminophen (Tylenol Extra Strength) 500 Mg Tablet, 1,000 MG PO Q8H PRN for PAIN-MILD (1-4), (Reported) Entered as Reported by: VERNA KIM on 12/25/21 1606 Albuterol Sulfate (Albuterol Sulfate) 2.5 Mg/3 Ml (0.083 %) Vial.neb, 2.5 MG INH TID PRN for SHORTNESS OF BREATH, (Reported) Entered as Reported by: VERNA KIM on 12/25/21 1555 Albuterol Sulfate (Ventolin Hfa) 1 Puff Puff, 2 PUFF IH Q4H PRN for SHORTNESS OF BREATH, (Reported) Entered as Reported by: VERNA KIM on 12/25/21 1600 Alprazolam (Alprazolam) 1 Mg Tablet, 1 MG PO BID PRN for ANXIETY, (Reported) Entered as Reported by: JESÚS PHILLIPS on 03/07/15 1623 Ascorbic Acid (Vitamin C) 1,000 Mg Tablet, 1,000 MG PO DAILY, (Reported) Entered as Reported by: SHAMIR SALAZAR on 06/13/21 1034 Budesonide/Formoterol Fumarate (Budesonide-Formoterol 160-4.5) 160 Mcg-4.5 Mcg/Actuation Hfa.aer.ad, 2 PUFF INH BID, (Reported) Entered as Reported by: SHAMIR SALAZAR on 02/21/22 1511 Calcium Carbonate/Vitamin D3 (Calcium 600 + Vit D 200 Tablet) 1 Each Tablet, 1 E ACH PO BID, (Reported) Entered as Reported by: SHAMIR SALAZAR on 06/13/21 1034 Cefprozil (Cefprozil) 500 Mg Tablet, 500 MG PO Q12H, (Reported) Entered as Reported by: SAHMIR SALAZAR on 02/21/22 1511 Cholecalciferol (Vitamin D3) (Vitamin D3) 25 Mcg Capsule, 25 MCG PO DAILY, (Reported) Entered as Reported by: SHAMIR SALAZAR on 06/13/21 1034 Hydrocodone/Acetaminophen (Hydrocodone-Acetamin 10-325 mg) 10 Mg-325 Mg Tablet, 1 EACH PO Q6H PRN for PAIN-MODERATE (5-7), (Reported) Entered as Reported by: SHAMIR SALAZAR on 02/21/22 1511 Hyoscyamine Sulfate (Hyoscyamine Sulfate) 0.125 Mg Tablet, 0.125 MG PO Q6H PRN for GI SPASMS, (Reported) Entered as Reported by: SHAMIR SALAZAR on 02/21/22 151 Ipratropium [place] (Ipratropium [place]) 0.2 Mg/1 Ml Solution, 1 VIAL NEB TID, (Reported) Entered as Reported by: JESÚS PHILLIPS on 03/07/15 1640 Loratadine (Loratadine) 10 Mg Tablet, 10 MG PO DAILY, (Reported) Entered as Reported by: JESÚS PHILLIPS on 03/07/15 1623 Montelukast Sodium (Montelukast Sodium) 10 Mg Tablet, 10 MG PO HS, (Reported) Entered as Reported by: MELISSA MONTERO on 05/18/17 1103 Nystatin (Nystatin) 100,000 Unit/Ml Oral.susp, 5 ML PO Q6HR Prescribed by: LEAH WOLF on 02/26/22 0743 Pantoprazole Sodium (Pantoprazole Sodium) 40 Mg Tablet.dr, 40 MG PO DAILY, (Reported) Entered as Reported by: JESÚS PHILLIPS on 03/07/15 162 Polyethylene Glycol 3350 (Miralax) 17 Gram Powd.pack, 17 GM PO DAILY PRN for CONSTIPATION-2ND LINE, (Reported) Entered as Reported by: SHAMIR SALAZAR on 10/20/21 140 Potassium Chloride (K-Tab ER) 10 Meq Tablet.er, 20 MEQ PO BID, (Reported) Entered as Reported by: YOSSI NELSON on 05/28/19 0952 Prednisone (Prednisone) 20 Mg Tab, 0 PO DAILY, (Reported) Entered as Reported by: SHAMIR SALAZAR on 02/21/22 151 Promethazine HCl (Promethazine Tablet) 25 Mg Tablet, 25 MG PO Q8H PRN for NAUSEA/VOMITING-1ST LINE, (Reported) Entered as Reported by: SHAMIR SALAZAR on 10/20/21 140 Warfarin Sodium (Jantoven) 4 Mg Tablet, 4 MG PO NORTH,,TH,SAT @1800, (Reported) Entered as Reported by: YOSSI NELSON on 05/28/19 0952 Warfarin Sodium ([place]) 5 Mg Tablet, 5 MG PO MO,WE,FR @1800, (Reported) Entered as Reported by: SHAMIR SALAZAR on 07/20/19 1602 Zinc Gluconate (Zinc) 50 Mg Tablet, 50 MG PO DAILY, (Reported) Entered as Reported by: SHAMIR SALAZAR on 02/21/22 1511 Review of Systems Review of Systems Constitutional: see HPI, chills, fever, malaise EENTM: see HPI, no symptoms reported Respiratory: see HPI, cough, dyspnea on exertion, phlegm Cardiovascular: no symptoms reported, see HPI Gastrointestinal: no symptoms reported, see HPI All Other Systems Reviewed Negative Unless Noted: Yes Past Cxozcob-Pknlqq-Nwwaso Hx Patient Social History Tobacco Use?: No Use of E-Cig and/or Vaping dev: No Substance use?: No Alcohol Use?: No Pt feels they are or have been: No Immunizations Up To Date Tetanus Booster (TDap): Unknown PED Vaccines UTD: No Influenza Vaccine Up-to-Date: No; Not Current First/Initial COVID19 Vaccinat: NO Seasonal Allergies Seasonal Allergies: Yes Past Medical History Surgery/Hospitalization HX: Heart cath, hysterectomy, knee scope, ablasion on both knees, hernia reapir, copd, chf, asthma Surgeries: Yes (C/S X2, KNEE SCOPE, SHOULDER SCOPE, d&C, BILAT ULNAR NERVE, VENA CAVA FILTE) Abdominal, Adenoidectomy, Section, Gallbladder, Hysterectomy, Orthopedic, Tonsillectomy, Tubal Ligation, Vascular Surgery Respiratory: Yes (O2 AT HS 2-3L/NC AND PRN--NOCTURNAL HYPOXIA; ) Asthma, Pneumonia, Chronic Bronchitis, Pulmonary Embolism, COPD Currently Using CPAP: No Currently Using BIPAP: No Cardiac: Yes (MULTIPLE DVT'S AND P.E.'S ) Chronic Edema/Swelling, Deep Vein Thrombosis, High Cholesterol, Hypertension, Peripheral Vascular Neurological: Yes Neuropathy 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, 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 Sexually Transmitted Disease: No HIV/AIDS: No 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: Yes Kidney Infection, Bladder Infection, Kidney Stones Gastrointestinal: Yes (MULTIPLE HERNIA REPAIRS; MULTIPLE EGD'S /COLONOSCOPIES/POLYPECTOMIES) Abdominal Hernia, Gastroesophageal Reflux, Chronic Constipation, Chronic Diar jasiel, Hepatitis, Polyps, Hiatal Hernia, Irritable Bowel Musculoskeletal: Yes (MULTIPLE ORTHO SURGERIES) Arthritis Endocrine: Yes ("PRE-DIABETIC" ) HEENT: Yes (NASAL POLYPS REMOVED) Cataract Loss of Vision: Denies Hearing Impairment: Denies Cancer: No Did You Recieve Any Treatments: No Psychosocial: Yes Anxiety Integumentary: Yes (CHRONIC VENOUS STASIS DERMATITIS AND ULCERS. CELLULTITIS OF LEGS;TATTOOS ) Blood Disorders: Yes (DVT'S/PE'S; PROBABLE PROTEIN C DEFICIENCY) Adverse Reaction/Blood Tranf: No (HAS HAD BLOOD WITH NO PROBLEMS) Family Medical History Reviewed Nursing Family Hx Alcoholism Alcoholism Arthritis Asthma 19 MOTHER Cancer G8 BROTHER G8 SISTER Cancer of colon Cancer of mouth Cardiovascular disease Cataract Cataracts Chest pain Colon cancer Completed stroke Diabetes mellitus Family history: Allergy Family history: Arthritis Family history: Asthma Family history: Cardiovascular disease Family history: Coronary thrombosis Family history: Diabetes mellitus G8 BROTHER G8 SISTER Family history: Gastrointestinal disease Family history: Hypertension Family history: Thyroid disorder Headache Hearing loss Heart disease 19 MOTHER History of - anemia History of - respiratory disease Hypercholesterolemia Hypercholesterolemia Hypertension 19 FATHER Infertile Malignant neoplasm of lung Myocardial infarction Myocardial infarction Psychotic disorder Respiratory disorder Stroke No Family History of: AIDS Abdominal aortic aneurysm Abdominal aortic aneurysm Bynum's disease Bynum's disease Alzheimer's disease Aphasia Aphasia Congenital disease Congenital heart disease Congenital heart disease Congestive heart failure Coronary thrombosis Cystic fibrosis Cystic fibrosis Deafness or hearing loss Dementia Dementia Drug abuse Dysphagia Dysphasia Family history: Alzheimer's disease Family history: Breast disease Family history: Glaucoma Family history: Osteoporosis Fibrocystic disease of breast Gastroenteritis Glaucoma Headache disorder Hereditary disease History of - disorder History of drug abuse Human immunodeficiency virus (HIV) seropositivity Infertility Kidney disease Kidney disease Neoplasm Not obtainable due to adoption Osteoporosis Parkinson's disease Parkinson's disease Prostate cancer Psychosocial problem Seizure disorder Seizure disorder Severe allergy Thyroid disease Tuberculosis Tuberculosis Visual disorder Visual impairment Cancer, COPD, Vascular Disease SOCIAL HISTORY: -ETOH--RARE USE NOW, HISTORY OF HEAVY USE/ABUSE -DRUGS-HX OF IV COCAINE USE -SMOKED 1 PPD, QUIT 2000 PAST SURGICAL HISTORY: -C-SECTIONS 1981, 1985 -SHOULDER SURGERY 2007 -LEFT KNEE SURGERY 2008 -D&C 2008 -HYSTERECTOMY/BILATERAL SALPINGO-OOPHORECTOMY 2008 -VENA CAVA FILTER 2009 -EGD 2010 -VEIN STRIPPING IN LEGS 2012 -BILATERAL ELBOW/ULNAR NERVE SURGERY 2012 -MULTIPLE HERNIA REPAIRS -MULTIPLE EGD'S AND COLONOSCOPIES AND POLYPECTOMIES -TONSILLECTOMY/ADENOIDECTOMY -CHOLECYSTECTOMY -NASAL POLYPS REMOVED -BILATERAL LEG RADIOABLATION 06/2018 ADDITIONAL PAST MEDICAL HISTORY: -MULTIPLE DVT'S AND P.E.'S -CHRONIC VENOUS STASIS ULCERATIONS -LEG CELLULITIS Physical Exam Vital Signs - First Documented 05/10/22 13:42 Temp 38.2 Pulse 125 Resp 22 B/P (MAP) 131/105 (114) Pulse Ox 91 O2 Delivery Room Air Capillary Refill : Less Than 3 Seconds Height: 5'5.00" Weight: 184lbs. 5.0oz. 83.062693ub; 36.00 BMI Method:Stated General Appearance: WD/WN, no apparent distress HEENT: PERRL/EOMI, normal ENT inspection, TMs normal, pharynx normal Neck: non-tender, full range of motion, supple, normal inspection Respiratory: chest non-tender, normal breath sounds, no respiratory distress, no accessory muscle use, rhonchi, wheezing Cardiovascular: normal peripheral pulses, regular rate, rhythm Gastrointestinal: normal bowel sounds, non tender, soft Neurologic/Psychiatric: no motor/sensory deficits, alert, normal mood/affect, oriented x 3 Skin: normal color, warm/dry Progress/Results/Core Measures Suspected Sepsis SIRS Temperature: Pulse: 125 Respiratory Rate: 22 Laboratory Tests 05/10/22 14:18: White Blood Count 7.5 Blood Pressure 131 /105 Mean: 114 Laboratory Tests 05/10/22 14:18: Creatinine 0.70, INR Comment 1.7H, Platelet Count 257, Total Bilirubin 0.3 Results/Orders Lab Results Laboratory Tests Test 05/10/22 13:51 05/10/22 14:10 05/10/22 14:18 Range/Units Influenza Type A (RT-PCR) Detected H Not Detecte Influenza Type B (RT-PCR) Not Detected Not Detecte SARS-CoV-2 RNA (RT-PCR) Not Detected Not Detecte Urine Color YELLOW Urine Clarity CLEAR Urine pH 6.0 5-9 Urine Specific Coy >=1.030 1.016-1.022 Urine Protein NEGATIVE NEGATIVE Urine Glucose (UA) NEGATIVE NEGATIVE Urine Ketones TRACE H NEGATIVE Urine Nitrite NEGATIVE NEGATIVE Urine Bilirubin NEGATIVE NEGATIVE Urine Urobilinogen 0.2 < = 1.0 MG/DL Urine Leukocyte Esterase NEGATIVE NEGATIVE Urine RBC (Auto) 1+ H NEGATIVE Urine RBC 5-10 H /HPF Urine WBC NONE /HPF Urine Squamous Epithelial Cells 2-5 /HPF Urine Crystals PRESENT H /LPF Urine Amorphous Sediment RARE MARLEN URATES H /LPF Urine Bacteria NEGATIVE /HPF Urine Casts NONE /LPF Urine Mucus SMALL H /LPF Urine Culture Indicated NO White Blood Count 7.5 4.3-11.0 10^3/uL Red Blood Count 4.79 3.80-5.11 10^6/uL Hemoglobin 12.9 11.5-16.0 g/dL Hematocrit 41 35-52 % Mean Corpuscular Volume 86 80-99 fL Mean Corpuscular Hemoglobin 27 25-34 pg Mean Corpuscular Hemoglobin Concent 32 32-36 g/dL Red Cell Distribution Width 16.5 H 10.0-14.5 % Platelet Count 257 130-400 10^3/uL Mean Platelet Volume 8.5 L 9.0-12.2 fL Immature Granulocyte % (Auto) 0 % Neutrophils (%) (Auto) 70 42-75 % Lymphocytes (%) (Auto) 16 12-44 % Monocytes (%) (Auto) 10 0-12 % Eosinophils (%) (Auto) 4 0-10 % Basophils (%) (Auto) 1 0-10 % Neutrophils # (Auto) 5.2 1.8-7.8 10^3/uL Lymphocytes # (Auto) 1.2 1.0-4.0 10^3/uL Monocytes # (Auto) 0.7 0.0-1.0 10^3/uL Eosinophils # (Auto) 0.3 0.0-0.3 10^3/uL Basophils # (Auto) 0.0 0.0-0.1 10^3/uL Immature Granulocyte # (Auto) 0.0 0.0-0.1 10^3/uL Prothrombin Time 20.6 H 12.2-14.7 SEC INR Comment 1.7 H 0.8-1.4 Activated Partial Thromboplast Time 32 24-35 SEC Sodium Level 138 135-145 MMOL/L Potassium Level 3.7 3.6-5.0 MMOL/L Chloride Level 104 98-107 MMOL/L Carbon Dioxide Level 24 21-32 MMOL/L Anion Gap 10 5-14 MMOL/L Blood Urea Nitrogen 8 7-18 MG/DL Creatinine 0.70 0.60-1.30 MG/DL Estimat Glomerular Filtration Rate 97 BUN/Creatinine Ratio 11 Glucose Level 122 H 70-105 MG/DL Calcium Level 8.9 8.5-10.1 MG/DL Corrected Calcium 9.0 8.5-10.1 MG/DL Magnesium Level 1.7 1.6-2.4 MG/DL Total Bilirubin 0.3 0.1-1.0 MG/DL Aspartate Amino Transf (AST/SGOT) 16 5-34 U/L Alanine Aminotransferase (ALT/SGPT) 21 0-55 U/L Alkaline Phosphatase 72 40-136 U/L C-Reactive Protein High Sensitivity 0.39 0.00-0.50 MG/DL Total Protein 7.5 6.4-8.2 GM/DL Albumin 3.9 3.2-4.5 GM/DL Procalcitonin 0.04 <0.10 NG/ML My Orders Orders - TIMOSTEPHANIE MYRA Covid 19 Inhouse Test (05/10/22 13:44) Influenza A And B By Pcr (05/10/22 13:44) Cbc With Automated Diff (05/10/22 13:50) Comprehensive Metabolic Panel (05/10/22 13:50) Hs C Reactive Protein (05/10/22 13:50) Magnesium (05/10/22 13:50) Procalcitonin (Pct) (05/10/22 13:50) Protime With Inr (05/10/22 13:50) Partial Thromboplastin Time (05/10/22 13:50) Ua Culture If Indicated (05/10/22 13:50) Sputum Culture (05/10/22 13:50) Chest 1 View, Ap/Pa Only (05/10/22 13:50) Ed Iv/Invasive Line Start (05/10/22 13:50) Ns Iv 1000 Ml (Sodium Chloride 0.9%) (05/10/22 14:00) Acetaminophen Tablet (Tylenol Tablet) (05/10/22 13:50) Vital Signs/I&O 05/10/22 13:42 Temp 38.2 Pulse 125 Resp 22 B/P (MAP) 131/105 (114) Pulse Ox 91 O2 Delivery Room Air Capillary Refill : Less Than 3 Seconds Blood Pressure Mean: 114 Progress Note : Time: 13:45 Progress Note Patient assessed, will check for COVID and influenza. Labs, chest x-ray and normal saline 1 L per IV. 1430 patient has no complaints, labs essentially normal, awaiting COVID and influenza results. 1500 influenza A positive. Discussed with patient she does not wish to take Tamiflu. Her INR is 1.7, she will increase her Coumadin tonight and then resume her normal dosage. Discharge instructions and return precautions were reviewed with her. IV fluids are only 10% infused, if patient keeps her arm straight fl uids infuse great but has been bending her arm and it restricts her fluids from infusing. Will d/c when fluids finish infusing. 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 COMPARISON: 02/21/2022. TECHNIQUE: Single radiograph of the chest dated 05/10/2022. FINDINGS: The cardiac silhouette is enlarged, similar to the prior exam. No significant pulmonary vascular congestion. The lungs are again noted to be hyperinflated. The upper lungs are clear. Mild bibasilar opacities are present, slightly worsened since the prior examination. No definite pleural effusion. No pneumothorax. No acute osseous abnormality. IMPRESSION: Persistent background pulmonary hyperinflation is again noted, similar to the prior exams. Mild bibasilar opacities, appearing similar to the prior exam. This is predominantly felt to relate to superimposition of overlying soft tissues, though mild bibasilar pneumonitis is not excluded. Mild cardiomegaly without pulmonary vascular congestion. Dictated on workstation # [id number] Dict: 05/10/22 1425 Trans: 05/10/22 1437 [id number] Interpreted by: LEOBARDO SAINI MD Electronically signed by: Reviewed: Reviewed by Me Departure Impression Primary Impression: Upper respiratory infection Qualified Codes: J06.9 - Acute upper respiratory infection, unspecified Additional Impressions: Fever Qualified Codes: R50.9 - Fever, unspecified Cough Qualified Codes: R05.3 - Chronic cough Influenza A Disposition: 01 HOME, SELF-CARE Condition: Stable Departure-Patient Inst. Decision time for Depature: 14:55 Referrals: LEAH WOLF MD (PCP/Family) Primary Care Physician Patient Instructions: Flu, Adult (DC) Add. Discharge Instructions: Use over the counter cough and cold medications, as needed. Use Oxygen, as needed. Continue inhalers and nebulized breathing treatments, as prescribed and Al buterol every 4 hours for shortness of breath. Drink 16 oz of water every 2-3 hours. Make sure you are walking around, 5-10 min every 2 hours while awake. Small frequent meals. INR 1.7, increase your Coumadin (5 mg) tonight and then resume your normal dose. Follow up with Dr. Wolf for your Coumadin and lab checks. Return to the Emergency Dept for new, urgent healthcare needs. All discharge instructions reviewed with patient and/or family. Voiced understanding. Copy Copies To 1: LEAH WOLF MD, AMY ARNP May 10, 2022 14:28
[2022-05-10 14:33] LABS: AMORPHOUS SEDIMENT,UR RARE AMOR URATES /LPF; BACTERIA,URINE NEGATIVE /HPF
--- NOTE | 2022-05-10 14:37 | Diagnostic Imaging Report ---
INDICATION: Fever, shortness of air, cough. COMPARISON: 02/21/2022. TECHNIQUE: Single radiograph of the chest dated 05/10/2022. FINDINGS: The cardiac silhouette is enlarged, similar to the prior exam. No significant pulmonary vascular congestion. The lungs are again noted to be hyperinflated. The upper lungs are clear. Mild bibasilar opacities are present, slightly worsened since the prior examination. No definite pleural effusion. No pneumothorax. No acute osseous abnormality. IMPRESSION: Persistent background pulmonary hyperinflation is again noted, similar to the prior exams. Mild bibasilar opacities, appearing similar to the prior exam. This is predominantly felt to relate to superimposition of overlying soft tissues, though mild bibasilar pneumonitis is not excluded. Mild cardiomegaly without pulmonary vascular congestion. Dictated by: Dictated on workstation # [id number]
[2022-05-10 14:38] LABS: INR 1.7 (0.8-1.4); PROTHROMBIN TIME PATIENT 20.6 SEC (12.2-14.7)
[2022-05-10 14:43] LABS: ALBUMIN 3.9 GM/DL (3.2-4.5); BILIRUBIN,TOTAL 0.3 MG/DL (0.1-1.0); CALCIUM 8.9 MG/DL (8.5-10.1); CREATININE SERUM 0.7 MG/DL (0.60-1.30); MAGNESIUM 1.7 MG/DL (1.6-2.4); POTASSIUM 3.7 MMOL/L (3.6-5.0); TOTAL PROTEIN 7.5 GM/DL (6.4-8.2)
[2022-05-10 15:55] VITALS: BP 138/96
== END 2022-05-10 15:57 | disposition home or self-care (01) ==
LOC: EDUNIT# 13:38 → ER 13:41
DX: J10.1 Influenza due to other identified influenza virus with other respiratory manifestations (principal); J44.9 Chronic obstructive pulmonary disease, unspecified; Z28.310 Unvaccinated for COVID-19; Z20.822 Contact with and (suspected) exposure to COVID-19; Z87.891 Personal history of nicotine dependence; Z99.81 Dependence on supplemental oxygen
CPT/HCPCS: 36415; 71045; 80053; 81000; 83735; 84145; 85025; 85610; 85730; 86141; 87636

== ENCOUNTER 2022-05-11 00:31 | Inpatient (IN) | payer MEDICAID ==
[2022-05-11] VITALS (9 sets, daily range): BP systolic 110–181; BP diastolic 67–116
[~2022-05-11] VITALS: Ht 165 cm; Wt 96.4 kg
--- NOTE | 2022-05-11 00:40 | ED Dyspnea ---
General Stated Complaint: SOB,FLU A Source of Information: Patient Exam Limitations: No Limitations History of Present Illness Date Seen by Provider: May 11, 2022 Time Seen by Provider: 00:40 Initial Comments Patient is a 61-year-old female who presents to the emergency department today with a chief complaint of shortness of breath. Patient was diagnosed earlier today with influenza A. She had labs, chest x-ray performed at that time. No consolidative infiltrates observed on chest x-ray. Labs normal. Patient states that she progressively became more more short of breath at home throughout the evening. She normally wears oxygen at 2 to 3 L at home all the time. She was noted to be 73% on 3 L on arrival with significant increased work of breathing. She has a cough productive of some "creamy" sputum. No blood observed in her sputum. She has had fever. Last dose of Tylenol was at approximately 945. She states her chest feels tight due to work of breathing. She has a mild headache. She has had some oral intake today. No urinary complaints no diarrhea. She has chronic lower extremity swelling with a history of DVT. She is on Coumadin, her INR earlier today was 1.7. Today is her usual dose of 4 mg of Coumadin, she took a 5 mg tablet. Patient states she just completed a "steroid taper" about a week to 2 weeks ago. She does see Dr. Mckeon, pulmonology in [place]. She is on yearly visits with him. All other review of systems reviewed and negative except as stated. Timing/Duration: Other (all day today) Severity: Severe Prior Episodes/Possible Cause: Frequent Episodes Modifying Factors: Improves With Albuterol Inhaler, Improves With Albuterol Nebulizer, Improves With Oxygen Associated Symptoms: Cough, Lightheadedness, Wheezing Allergies and Home Medications Allergies Coded Allergies: aspirin (Verified Allergy, Severe, ANAPHYLAXIS, 03/03/19) ibuprofen (Verified Allergy, Severe, ANAPHYLAXIS, 03/03/19) ketorolac (Verified Allergy, Severe, ANAPHYLAXIS, 03/03/19) tetanus and diphtheria toxoids (Unverified Allergy, Severe, ANAPHYLAXIS, 03/03/19) aloe (Verified Allergy, Mild, RASH, 03/03/19) latex (Verified Allergy, Mild, RASH, 03/03/19) OCCASIONALLY IS IRRITATING SKIN scopolamine (Verified Allergy, Mild, 03/03/19) black pepper (Verified Allergy, Unknown, 10/20/21) chocolate flavor (Verified Allergy, Unknown, 10/20/21) coconut (Verified Allergy, Unknown, 10/20/21) tomato (Verified Allergy, Unknown, Rash, 10/20/21) iodine (Verified Adverse Reaction, Unknown, 03/03/19) Patient states she got dizzy, diaphoretic and saw stars. Uncoded Allergies: ALOE VERA (Allergy, Unknown, 12/23/05) SILK SUTURES (Adverse Reaction, Unknown, BODY REJECTS SUTURES, 10/07/13) Patient Home Medication List Home Medication List Reviewed: Yes Acetaminophen (Tylenol Extra Strength) 500 Mg Tablet, 1,000 MG PO Q8H PRN for PAIN-MILD (1-4), (Reported) Entered as Reported by: VERNA KIM on 12/25/21 1606 Albuterol Sulfate (Albuterol Sulfate) 2.5 Mg/3 Ml (0.083 %) Vial.neb, 2.5 MG INH TID PRN for SHORTNESS OF BREATH, (Reported) Entered as Reported by: VERNA KIM on 12/25/21 1555 Albuterol Sulfate (Ventolin Hfa) 1 Puff Puff, 2 PUFF IH Q4H PRN for SHORTNESS OF BREATH, (Reported) Entered as Reported by: VERNA KIM on 12/25/21 1600 Alprazolam (Alprazolam) 1 Mg Tablet, 1 MG PO BID PRN for ANXIETY, (Reported) Entered as Reported by: JESÚS PHILLIPS on 03/07/15 1623 Ascorbic Acid (Vitamin C) 1,000 Mg Tablet, 1,000 MG PO DAILY, (Reported) Entered as Reported by: SHAMIR SALAZAR on 06/13/21 1034 Budesonide/Formoterol Fumarate (Budesonide-Formoterol 160-4.5) 160 Mcg-4.5 Mcg/Actuation Hfa.aer.ad, 2 PUFF INH BID, (Reported) Entered as Reported by: SHAMIR SALAZAR on 02/21/22 1511 Calcium Carbonate/Vitamin D3 (Calcium 600 + Vit D 200 Tablet) 1 Each Tablet, 1 EACH PO BID, (Reported) Entered as Reported by: SHAMIR SALAZAR on 06/13/21 1034 Cefprozil (Cefprozil) 500 Mg Tablet, 500 MG PO Q12H, (Reported) Entered as Reported by: SHAMIR SALAZAR on 02/21/22 1511 Cholecalciferol (Vitamin D3) (Vitamin D3) 25 Mcg Capsule, 25 MCG PO DAILY, (Reported) Entered as Reported by: SHAMIR SALAZAR on 06/13/21 1034 Hydrocodone/Acetaminophen (Hydrocodone-Acetamin 10-325 mg) 10 Mg-325 Mg Tablet, 1 EACH PO Q6H PRN for PAIN-MODERATE (5-7), (Reported) Entered as Reported by: SHAMIR SALAZAR on 02/21/22 1511 Hyoscyamine Sulfate (Hyoscyamine Sulfate) 0.125 Mg Tablet, 0.125 MG PO Q6H PRN for GI SPASMS, (Reported) Entered as Reported by: SHAMIR SALAZAR on 02/21/22 1511 Ipratropium Graford (Ipratropium Graford) 0.2 Mg/1 Ml Solution, 1 VIAL NEB TID, (Reported) Entered as Reported by: JESÚS PHILLIPS on 03/07/15 1640 Loratadine (Loratadine) 10 Mg Tablet, 10 MG PO DAILY, (Reported) Entered as Reported by: JESÚS PHILLIPS on 03/07/15 1623 Montelukast Sodium (Montelukast Sodium) 10 Mg Tablet, 10 MG PO HS, (Reported) Entered as Reported by: MELISSA MONTERO on 05/18/17 1103 Nystatin (Nystatin) 100,000 Unit/Ml Oral.susp, 5 ML PO Q6HR Prescribed by: LEAH WOLF on 02/26/22 0743 Pantoprazole Sodium (Pantoprazole Sodium) 40 Mg Tablet.dr, 40 MG PO DAILY, (Reported) Entered as Reported by: JESÚS PHILLIPS on 03/07/15 1623 Polyethylene Glycol 3350 (Miralax) 17 Gram Powd.pack, 17 GM PO DAILY PRN for CONSTIPATION-2ND LINE, (Reported) Entered as Reported by: SHAMIR SALAZAR on 10/20/21 1408 Potassium Chloride (K-Tab ER) 10 Meq Tablet.er, 20 MEQ PO BID, (Reported) Entered as Reported by: YOSSI NELSON on 05/28/19 0952 Prednisone (Prednisone) 20 Mg Tab, 0 PO DAILY, (Reported) Entered as Reported by: SHAMIR SALAZAR on 02/21/22 1511 Promethazine HCl (Promethazine Tablet) 25 Mg Tablet, 25 MG PO Q8H PRN for NAUSEA/VOMITING-1ST LINE, (Reported) Entered as Reported by: SHAMIR SALAZAR on 10/20/21 1408 Warfarin Sodium (Jantoven) 4 Mg Tablet, 4 MG PO NORTH,TU,TH,SAT @1800, (Reported) Entered as Reported by: YOSSI NELSON on 05/28/19 0952 Warfarin Sodium (Jantoven) 5 Mg Tablet, 5 MG PO MO,WE,FR @1800, (Reported) Entered as Reported by: SHAMIR SALAZAR on 07/20/19 1602 Zinc Gluconate (Zinc) 50 Mg Tablet, 50 MG PO DAILY, (Reported) Entered as Reported by: SHAMIR SALAZAR on 02/21/22 1511 Review of Systems Review of Systems Constitutional: see HPI, fever EENTM: nose congestion Respiratory: cough, dyspnea on exertion, phlegm, short of breath, wheezing Cardiovascular: chest pain ("tightness"), edema 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: no symptoms reported Musculoskeletal: no symptoms reported Psychiatric/Neurological: Headache All Other Systems Reviewed Negative Unless Noted: Yes Past Tzchboh-Bmmhcp-Eunonj Hx Immunizations Up To Date Tetanus Booster (TDap): Unknown PED Vaccines UTD: No First/Initial COVID19 Vaccinat: NO Seasonal Allergies Seasonal Allergies: Yes Past Medical History Surgery/Hospitalization HX: Heart cath, hysterectomy, knee scope, ablasion on both knees, hernia reapir, copd, chf, asthma Surgeries: Yes (C/S X2, KNEE SCOPE, SHOULDER SCOPE, d&C, BILAT ULNAR NERVE, VENA CAVA FILTE) Abdominal, Adenoidectomy, Section, Gallbladder, Hysterectomy, Orthopedic, Tonsillectomy, Tubal Ligation, Vascular Surgery Respiratory: Yes (O2 AT HS 2-3L/NC AND PRN--NOCTURNAL HYPOXIA; ) Asthma, Pneumonia, Chronic Bronchitis, Pulmonary Embolism, COPD Currently Using CPAP: No Currently Using BIPAP: No Cardiac: Yes (MULTIPLE DVT'S AND P.E.'S ) Chronic Edema/Swelling, Deep Vein Thrombosis, High Cholesterol, Hypertension, Peripheral Vascular Neurological: Yes Neuropathy 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 Disorders: Yes WEIGH BOSS History: Hysterectomy, Menopausal Sexually Transmitted Disease: No HIV/AIDS: No 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: Yes Kidney Infection, Bladder Infection, Kidney Stones Gastrointestinal: Yes (MULTIPLE HERNIA REPAIRS; MULTIPLE EGD'S /COLONOSCOPIES/POLYPECTOMIES) Abdominal Hernia, Gastroesophageal Reflux, Chronic Constipation, Chronic Diarrh ea, Hepatitis, Polyps, Hiatal Hernia, Irritable Bowel Musculoskeletal: Yes (MULTIPLE ORTHO SURGERIES) Arthritis Endocrine: Yes ("PRE-DIABETIC" ) HEENT: Yes (NASAL POLYPS REMOVED) Cataract Loss of Vision: Denies Hearing Impairment: Denies Cancer: No Did You Recieve Any Treatments: No Psychosocial: Yes Anxiety Integumentary: Yes (CHRONIC VENOUS STASIS DERMATITIS AND ULCERS. CELLULTITIS OF LEGS;TATTOOS ) Blood Disorders: Yes (DVT'S/PE'S; PROBABLE PROTEIN C DEFICIENCY) Adverse Reaction/Blood Tranf: No (HAS HAD BLOOD WITH NO PROBLEMS) Family Medical History Alcoholism Alcoholism Arthritis Asthma 19 MOTHER Cancer G8 BROTHER G8 SISTER Cancer of colon Cancer of mouth Cardiovascular disease Cataract Cataracts Chest pain Colon cancer Completed stroke Diabetes mellitus Family history: Allergy Family history: Arthritis Family history: Asthma Family history: Cardiovascular disease Family history: Coronary thrombosis Family history: Diabetes mellitus G8 BROTHER G8 SISTER Family history: Gastrointestinal disease Family history: Hypertension Family history: Thyroid disorder Headache Hearing loss Heart disease 19 MOTHER History of - anemia History of - respiratory disease Hypercholesterolemia Hypercholesterolemia Hypertension 19 FATHER Infertile Malignant neoplasm of lung Myocardial infarction Myocardial infarction Psychotic disorder Respiratory disorder Stroke No Family History of: AIDS Abdominal aortic aneurysm Abdominal aortic aneurysm Hale's disease Hale's disease Alzheimer's disease Aphasia Aphasia Congenital disease Congenital heart disease Congenital heart disease Congestive heart failure Coronary thrombosis Cystic fibrosis Cystic fibrosis Deafness or hearing loss Dementia Dementia Drug abuse Dysphagia Dysphasia Family history: Alzheimer's disease Family history: Breast disease Family history: Glaucoma Family history: Osteoporosis Fibrocystic disease of breast Gastroenteritis Glaucoma Headache disorder Hereditary disease History of - disorder History of drug abuse Human immunodeficiency virus (HIV) seropositivity Infertility Kidney disease Kidney disease Neoplasm Not obtainable due to adoption Osteoporosis Parkinson's disease Parkinson's disease Prostate cancer Psychosocial problem Seizure disorder Seizure disorder Severe allergy Thyroid disease Tuberculosis Tuberculosis Visual disorder Visual impairment Cancer, COPD, Vascular Disease SOCIAL HISTORY: -ETOH--RARE USE NOW, HISTORY OF HEAVY USE/ABUSE -DRUGS-HX OF IV COCAINE USE -SMOKED 1 PPD, QUIT 2000 PAST SURGICAL HISTORY: -C-SECTIONS 1981, 1985 -SHOULDER SURGERY 2007 -LEFT KNEE SURGERY 2008 -D&C 2009 -HYSTERECTOMY/BILATERAL SALPINGO-OOPHORECTOMY 2008 -VENA CAVA FILTER 2009 -EGD 2010 -VEIN STRIPPING IN LEGS 2012 -BILATERAL ELBOW/ULNAR NERVE SURGERY 2012 -MULTIPLE HERNIA REPAIRS -MULTIPLE EGD'S AND COLONOSCOPIES AND POLYPECTOMIES -TONSILLECTOMY/ADENOIDECTOMY -CHOLECYSTECTOMY -NASAL POLYPS REMOVED -BILATERAL LEG RADIOABLATION 06/2018 ADDITIONAL PAST MEDICAL HISTORY: -MULTIPLE DVT'S AND P.E.'S -CHRONIC VENOUS STASIS ULCERATIONS -LEG CELLULITIS Physical Exam Vital Signs Vital Signs - First Documented 05/11/22 00:37 Temp 36.9 Pulse 136 Resp 26 B/P (MAP) 181/116 (137) Pulse Ox 91 O2 Delivery Nasal Cannula O2 Flow Rate 2.00 Capillary Refill : Height, Weight, BMI Height: 5'5.00" Weight: 184lbs. 5.0oz. 83.787711mk; 36.00 BMI Method:Stated General Appearance: WD/WN, Moderate Distress HEENT: PERRL/EOMI Neck: Normal Inspection Respiratory: Respiratory Distress, Wheezing (inspiratory and exp wheeze; good air movement.) Cardiovascular: Regular Rate, Rhythm, Tachycardia (130) Extremity: Normal Range of Motion, Pedal Edema (3+ pedal edema bilateral LE - legs tense/tight; no obvious drainage from visulised portions of legs) Neurologic/Psychiatric: Alert, Oriented x3, No Motor/Sensory Deficits, Normal Mood/Affect, fine grade operator II-XII Norm as Tested Skin: Normal Color, Warm/Dry Progress/Results/Core Measures Results/Orders Lab Results Laboratory Tests Test 05/11/22 00:52 05/11/22 01:12 Range/Units White Blood Count 8.4 4.3-11.0 10^3/uL Red Blood Count 4.81 3.80-5.11 10^6/uL Hemoglobin 13.0 11.5-16.0 g/dL Hematocrit 42 35-52 % Mean Corpuscular Volume 87 80-99 fL Mean Corpuscular Hemoglobin 27 25-34 pg Mean Corpuscular Hemoglobin Concent 31 L 32-36 g/dL Red Cell Distribution Width 16.3 H 10.0-14.5 % Platelet Count 251 130-400 10^3/uL Mean Platelet Volume 8.4 L 9.0-12.2 fL Immature Granulocyte % (Auto) 0 % Neutrophils (%) (Auto) 64 42-75 % Lymphocytes (%) (Auto) 24 12-44 % Monocytes (%) (Auto) 8 0-12 % Eosinophils (%) (Auto) 3 0-10 % Basophils (%) (Auto) 0 0-10 % Neutrophils # (Auto) 5.4 1.8-7.8 10^3/uL Lymphocytes # (Auto) 2.0 1.0-4.0 10^3/uL Monocytes # (Auto) 0.7 0.0-1.0 10^3/uL Eosinophils # (Auto) 0.2 0.0-0.3 10^3/uL Basophils # (Auto) 0.0 0.0-0.1 10^3/uL Immature Granulocyte # (Auto) 0.0 0.0-0.1 10^3/uL Procalcitonin 0.03 <0.10 NG/ML Blood Gas Puncture Site RIGHT RADIAL Blood Gas Patient Temperature 98.4 Arterial Blood pH 7.36 L 7.37-7.43 Arterial Blood Partial Pressure CO2 50 H 35-45 MMHG Arterial Blood Partial Pressure O2 65 L 79-93 MMHG Arterial Blood HCO3 27 23-27 MMOL/L Arterial Blood Total CO2 28.9 21.0-31.0 MMOL/L Arterial Blood Oxygen Saturation 89 L 94-100 % Arterial Blood Base Excess 2.4 -2.5-2.5 MMOL/L Papa Test YES-POS Blood Gas Ventilator Setting NO Blood Gas Inspired Oxygen 5L My Orders Orders - ROSALIND ANDREA MD Ed Iv/Invasive Line Start (05/11/22 00:49) Cbc With Automated Diff (05/11/22 00:49) Procalcitonin (Pct) (05/11/22 00:49) Methylprednisolone Sod Succ (Solu-Medrol (05/11/22 01:00) Albuterol Pre-Mix Nebs (Rt) (Proventil (05/11/22 01:00) Svn Small Volume Nebulizer (05/11/22 00:49) Albuterol/Ipra Inhalation Soln (Duoneb I (05/11/22 01:00) Hydrocodone/Apap 5/325 Tablet (Lortab 5 (05/11/22 01:00) Svn Small Volume Nebulizer (05/11/22 00:49) Communication For Respiratory (05/11/22 00:49) Arterial Blood Gas (05/11/22 01:13) Arterial Blood Draw - Obtain (05/11/22 ) Medications Given in ED Current Medications Medications Dose Ordered Sig/Nahomi Route Start Time Stop Time Status Last Admin Dose Admin Albuterol Sulfate 12.5 mg ONCE ONCE INH 05/11/22 01:00 05/11/22 01:01 DC 05/11/22 01:15 12.5 MG Albuterol/ Ipratropium 3 ml ONCE ONCE INH 05/11/22 01:00 05/11/22 01:01 DC 05/11/22 01:15 3 ML Methylprednisolone Sodium Succinate 125 mg ONCE ONCE IVP 05/11/22 01:00 05/11/22 01:01 DC 05/11/22 01:00 125 MG Vital Signs/I&O 05/11/22 05/11/22 05/11/22 00:37 00:37 01:16 Temp 36.9 Pulse 136 Resp 26 B/P (MAP) 181/116 (137) Pulse Ox 91 88 O2 Delivery Nasal Cannula Nasal Cannula Nasal Cannula O2 Flow Rate 2.00 5.00 5.00 Progress Progress Note : Time: 02:39 Progress Note Patient reassessed, least 30 minutes after her hour-long breathing treatment. She is on 8 L per nasal cannula and still conversationally dyspneic sats in the mid 80s. I reviewed her repeat CBC and her Pro-Kushal these are both normal. Her ABG is a little concerning on 5 L PO2 is 65, her PCO2 is 50. pH is 7.3. She is still wheezing. I discussed with Dr. Wolf. We will put her on BiPAP, cardiac stepdown. No antibiotics at this time. [address]; rate improving Critical Care Note Critical Care Start Time: 00:40 Stop Time: 02:40 Total Time (minutes) 30 min critical care time in eval and management of this patient with severe exacerbation of COPD/hypoxia. Time includes initial eval, supplemental O2; frequent re-evaluations, review and interpretation of labs, ABG. discussion with primary care doc/admitting doc, discussion with RT about Bipap settings; review of medical record. Departure Communication (Admissions) Time/Spoke to Admitting Phy: 02:[address] Wolf Impression Primary Impression: Acute exacerbation of chronic obstructive pulmonary disease Additional Impression: Influenza A Disposition: 09 ADMITTED INPATIENT Condition: Stable Admissions Decision to Admit Reason: Admit from ER (General) Decision to Admit/Date: May 11, 2022 Time/Decision to Admit Time: 02:41 Departure-Patient Inst. Referrals: LEAH WOLF MD (PCP/Family) Primary Care Physician Copy Copies To 1: LEAH WOLF MD, KATHRYN M MD May 11, 2022 00:40
[2022-05-11] MEDS: HYDROcodone/APAP 5 MG/325 MG (LORTAB) TAB PO ONE ×2 (00:59→01:02)
[2022-05-11 01:00] LABS: BASOPHILS % (AUTO) 0 % (0-10); EOSINOPHILS # (AUTO) 0.2 10^3/uL (0.0-0.3); EOSINOPHILS % (AUTO) 3 % (0-10); HEMATOCRIT 42 % (35-52); LYMPHOCYTES % (AUTO) 24 % (12-44); MEAN CORPUSCULAR HEMOGLOBIN 27 pg (25-34); MEAN CORPUSCULAR HGB CONC 31 g/dL (32-36); MEAN CORPUSCULAR VOLUME 87 fL (80-99); MEAN PLATELET VOLUME 8.4 fL (9.0-12.2); MONOCYTES # (AUTO) 0.7 10^3/uL (0.0-1.0); MONOCYTES % (AUTO) 8 % (0-12); NEUTROPHILS # (AUTO) 5.4 10^3/uL (1.8-7.8); NEUTROPHILS % (AUTO) 64 % (42-75); PLATELET COUNT 251 10^3/uL (130-400); WHITE BLOOD COUNT 8.4 10^3/uL (4.3-11.0)
[2022-05-11] MEDS ORDERED: RT-ALBUTEROL/IPRATROPIUM 3 ML (DUONEB) VIAL INH ONE (01:00)
[2022-05-11] MEDS ORDERED: RT-ALBUTEROL SULF 2.5 MG/3 ML PRE-MIX VIAL INH ONE (01:00)
[2022-05-11] MEDS ORDERED: methylPREDNISolone 125 MG (Solu-MEDROL) VIAL IVP ONE (01:00)
[2022-05-11 01:17] LABS: ABG BASE EXCESS 2.4 MMOL/L (-2.5-2.5); ABG OXYGEN SATURATION 89 % (94-100); ABG PCO2 50 MMHG (35-45); ABG PH 7.36 (7.37-7.43); ABG PO2 65 MMHG (79-93); ABG TCO2 28.9 MMOL/L (21.0-31.0)
[2022-05-11 01:23] LABS: ALLENS TEST YES-POS; INSPIRED O2 5L; PATIENT TEMP 98.4; VENTILATOR NO
[2022-05-11] MEDS: RT-ALBUTEROL/IPRATROPIUM 3 ML (DUONEB) VIAL INH SCH ×5 (06:30→21:54)
[2022-05-11] MEDS ORDERED: cefTRIAXone 1,000 MG VIAL IM SCH (10:45)
[2022-05-11] MEDS ORDERED: LIDOCAINE 1% INJ 20 ML VIAL INJ SCH (10:45)
--- NOTE | 2022-05-11 10:49 | History & Physicial ---
History of Present Illness History of Present Illness Reason for visit/HPI 61-year-old female presents to [facility] emergency department during the evening of May 10, 2022 with acute shortness of breath. She does have a history of known COPD with frequent exacerbations. She apparently was recently diagnosed with influenza A. She admits being around relatives that within the last few weeks had Covid 19 but not influenza that she was aware of. She does have a cough associated with her current condition. She may have ran a fever but she didn't check her temperature. She had chest x-ray performed in the morning of May 10. At home she has been utilizing 2-3 L of nasal cannula oxygen. She had seen her oxygen saturations drop into the 80s. She had recently been in office and received a prednisone taper Date of Admission May 11, 2022 at 02:48 Date Seen by a Provider: May 11, 2022 Time Seen by a Provider: 09:30 I consulted on this patient on 05/11/22 10:44 Attending Physician Jay Wolf MD Admitting Physician Admitting Physician: Jay Wolf MD Attending Physician: Jay Wolf MD Consult Allergies and Home Medications Allergies Coded Allergies: aspirin (Verified Allergy, Severe, ANAPHYLAXIS, 03/03/19) ibuprofen (Verified Allergy, Severe, ANAPHYLAXIS, 03/03/19) ketorolac (Verified Allergy, Severe, ANAPHYLAXIS, 03/03/19) tetanus and diphtheria toxoids (Unverified Allergy, Severe, ANAPHYLAXIS, 03/03/19) aloe (Verified Allergy, Mild, RASH, 03/03/19) latex (Verified Allergy, Mild, RASH, 03/03/19) OCCASIONALLY IS IRRITATING SKIN scopolamine (Verified Allergy, Mild, 03/03/19) black pepper (Verified Allergy, Unknown, 10/20/21) chocolate flavor (Verified Allergy, Unknown, 10/20/21) coconut (Verified Allergy, Unknown, 10/20/21) tomato (Verified Allergy, Unknown, Rash, 10/20/21) iodine (Verified Adverse Reaction, Unknown, 03/03/19) Patient states she got dizzy, diaphoretic and saw stars. Uncoded Allergies: ALOE VERA (Allergy, Unknown, 12/23/05) SILK SUTURES (Adverse Reaction, Unknown, BODY REJECTS SUTURES, 10/07/13) Patient Home Medication List Home Medication List Reviewed: Yes Acetaminophen (Tylenol Extra Strength) 500 Mg Tablet, 1,000 MG PO Q8H PRN for PAIN-MILD (1-4), (Reported) Entered as Reported by: VERNA KIM on 12/25/21 1606 Albuterol Sulfate (Albuterol Sulfate) 2.5 Mg/3 Ml (0.083 %) Vial.neb, 2.5 MG INH TID PRN for SHORTNESS OF BREATH, (Reported) Entered as Reported by: VERNA KIM on 12/25/21 1555 Albuterol Sulfate (Ventolin Hfa) 1 Puff Puff, 2 PUFF IH Q4H PRN for SHORTNESS OF BREATH, (Reported) Entered as Reported by: VERNA KIM on 12/25/21 1600 Alprazolam (Alprazolam) 1 Mg Tablet, 1 MG PO BID PRN for ANXIETY, (Reported) Entered as Reported by: JESÚS PHILLIPS on 03/07/15 1623 Ascorbic Acid (Vitamin C) 1,000 Mg Tablet, 1,000 MG PO DAILY, (Reported) Entered as Reported by: SHAMIR SALAZAR on 06/13/21 1034 Budesonide/Formoterol Fumarate (Budesonide-Formoterol 160-4.5) 160 Mcg-4.5 Mcg/Actuation Hfa.aer.ad, 2 PUFF INH BID, (Reported) Entered as Reported by: SHAMIR SALAZAR on 02/21/22 1511 Calcium Carbonate/Vitamin D3 (Calcium 600 + Vit D 200 Tablet) 1 Each Tablet, 1 EACH PO BID, (Reported) Entered as Reported by: SHAMIR SALAZAR on 06/13/21 1034 Cefprozil (Cefprozil) 500 Mg Tablet, 500 MG PO Q12H, (Reported) Entered as Reported by: SHAMIR SALAZAR on 02/21/22 1511 Cholecalciferol (Vitamin D3) (Vitamin D3) 25 Mcg Capsule, 25 MCG PO DAILY, (Reported) Entered as Reported by: SHAMIR SALAZAR on 06/13/21 1034 Hydrocodone/Acetaminophen (Hydrocodone-Acetamin 10-325 mg) 10 Mg-325 Mg Tablet, 1 EACH PO Q6H PRN for PAIN-MODERATE (5-7), (Reported) Entered as Reported by: SHAMIR SALAZAR on 02/21/22 151 Hyoscyamine Sulfate (Hyoscyamine Sulfate) 0.125 Mg Tablet, 0.125 MG PO Q6H PRN for GI SPASMS, (Reported) Entered as Reported by: SHAMIR SALAZAR on 02/21/22 151 Ipratropium Thurston (Ipratropium Thurston) 0.2 Mg/1 Ml Solution, 1 VIAL NEB TID, (Reported) Entered as Reported by: JESÚS PHILLIPS on 03/07/15 1640 Loratadine (Loratadine) 10 Mg Tablet, 10 MG PO DAILY, (Reported) Entered as Reported by: JESÚS PHILLIPS on 03/07/15 1623 Montelukast Sodium (Montelukast Sodium) 10 Mg Tablet, 10 MG PO HS, (Reported) Entered as Reported by: MELISSA MONTERO on 05/18/17 1103 Nystatin (Nystatin) 100,000 Unit/Ml Oral.susp, 5 ML PO Q6HR Prescribed by: JAY WOLF on 02/26/22 0743 Pantoprazole Sodium (Pantoprazole Sodium) 40 Mg Tablet.dr, 40 MG PO DAILY, (Reported) Entered as Reported by: JESÚS PHILLIPS on 03/07/15 162 Polyethylene Glycol 3350 (Miralax) 17 Gram Powd.pack, 17 GM PO DAILY PRN for CONSTIPATION-2ND LINE, (Reported) Entered as Reported by: SHAMIR SALAZAR on 10/20/21 140 Potassium Chloride (K-Tab ER) 10 Meq Tablet.er, 20 MEQ PO BID, (Reported) Entered as Reported by: YOSSI NELSON on 05/28/19951 Prednisone (Prednisone) 20 Mg Tab, 0 PO DAILY, (Reported) Entered as Reported by: SHAMIR SALAZAR on 02/21/22 151 Promethazine HCl (Promethazine Tablet) 25 Mg Tablet, 25 MG PO Q8H PRN for NAUSEA/VOMITING-1ST LINE, (Reported) Entered as Reported by: SHAMIR SALAZAR on 10/20/21 140 Warfarin Sodium (Jantoven) 4 Mg Tablet, 4 MG PO NORTH,TU,TH,SAT @1800, (Reported) Entered as Reported by: YOSSI NELSON on 05/28/19951 Warfarin Sodium (Jantoven) 5 Mg Tablet, 5 MG PO MO,WE,FR @1800, (Reported) Entered as Reported by: SHAMIR SALAZAR on 07/20/19 1602 Zinc Gluconate (Zinc) 50 Mg Tablet, 50 MG PO DAILY, (Reported) Entered as Reported by: SHAMIR SALAZAR on 02/21/22 1511 Past Rejectw-Bjubal-Gytgsu Hx Patient Social History Drug of Choice: + IV COCAINE USE Smoking Status: Never a Smoker Former Smoker, Quit: Nov 17, 2000 2nd Hand Smoke Exposure: No Recent Hopitalizations: No (05/21/19 knee sx) Have you traveled recently?: No Alcohol Use?: No Pt feels they are or have been: No Immunizations Up To Date Tetanus Booster (TDap): Unknown Pediatric: No Date of Pneumonia Vaccine: Sep 05, 2016 Date of Influenza Vaccine: Mar 11, 2012 Seasonal Allergies Seasonal Allergies: Yes Surgeries Yes (C/S X2, KNEE SCOPE, SHOULDER SCOPE, d&C, BILAT ULNAR NERVE, VENA CAVA FILTE) Abdominal, Adenoidectomy, Section, Gallbladder, Hysterectomy, Orthopedic, Tonsillectomy, Tubal Ligation, Vascular Surgery Respiratory Yes (O2 AT HS 2-3L/NC AND PRN--NOCTURNAL HYPOXIA; ) Currently Using CPAP: No Currently Using BIPAP: No Cardiovascular Yes (MULTIPLE DVT'S AND P.E.'S ) Chronic Edema/Swelling, Deep Vein Thrombosis, High Cholesterol, Hypertension, Peripheral Vascular Neurological Yes Neuropathy 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 System Hx 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 Disorders: Yes Sexually Transmitted Disease: No HIV/AIDS: No CORD CUTTER History: Hysterectomy, Menopausal 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 Yes Kidney Infection, Bladder Infection, Kidney Stones Gastrointestinal Yes (MULTIPLE HERNIA REPAIRS; MULTIPLE EGD'S /COLONOSCOPIES/POLYPECTOMIES) Abdominal Hernia, Gastroesophageal Reflux, Chronic Constipation, Chronic Diarrhea, Hepatitis, Polyps, Hiatal Hernia, Irritable Bowel Musculoskeletal Yes (MULTIPLE ORTHO SURGERIES) Arthritis Endocrine History of Endocrine Disorders: Yes ("PRE-DIABETIC" ) HEENT History of HEENT Disorders: Yes (NASAL POLYPS REMOVED) HEENT Disorders: Cataract Loss of Vision: Denies Hearing Impairment: Denies Cancer No Did You Recieve Any Treatments: No Psychosocial History of Psychiatric Problem: Yes Behavioral Health Disorders: Anxiety Integumentary History of Skin or Integumenta: Yes (CHRONIC VENOUS STASIS DERMATITIS AND ULCERS. CELLULTITIS OF LEGS;TATTOOS ) Blood Transfusions History of Blood Disorders: Yes (DVT'S/PE'S; PROBABLE PROTEIN C DEFICIENCY) Adverse Reaction to a Blood Tr: No (HAS HAD BLOOD WITH NO PROBLEMS) Family Medical History Significant Family History: Cancer, COPD, Vascular Disease Other Significan Family Hx: SOCIAL HISTORY: -ETOH--RARE USE NOW, HISTORY OF HEAVY USE/ABUSE -DRUGS-HX OF IV COCAINE USE -SMOKED 1 PPD, QUIT 2000 PAST SURGICAL HISTORY: -C-SECTIONS 1981, 1985 -SHOULDER SURGERY 2007 -LEFT KNEE SURGERY 2008 -D&C 2008 -HYSTERECTOMY/BILATERAL SALPINGO-OOPHORECTOMY 2008 -VENA CAVA FILTER 2009 -EGD 2010 -VEIN STRIPPING IN LEGS 2012 -BILATERAL ELBOW/ULNAR NERVE SURGERY 2012 -MULTIPLE HERNIA REPAIRS -MULTIPLE EGD'S AND COLONOSCOPIES AND POLYPECTOMIES -TONSILLECTOMY/ADENOIDECTOMY -CHOLECYSTECTOMY -NASAL POLYPS REMOVED -BILATERAL LEG RADIOABLATION 06/2018 ADDITIONAL PAST MEDICAL HISTORY: -MULTIPLE DVT'S AND P.E.'S -CHRONIC VENOUS STASIS ULCERATIONS -LEG CELLULITIS Family Hx: Alcoholism Alcoholism Arthritis Asthma 19 MOTHER Cancer G8 BROTHER G8 SISTER Cancer of colon Cancer of mouth Cardiovascular disease Cataract Cataracts Chest pain Colon cancer Completed stroke Diabetes mellitus Family history: Allergy Family history: Arthritis Family history: Asthma Family history: Cardiovascular disease Family history: Coronary thrombosis Family history: Diabetes mellitus G8 BROTHER G8 SISTER Family history: Gastrointestinal disease Family history: Hypertension Family history: Thyroid disorder Headache Hearing loss Heart disease 19 MOTHER History of - anemia History of - respiratory disease Hypercholesterolemia Hypercholesterolemia Hypertension 19 FATHER Infertile Malignant neoplasm of lung Myocardial infarction Myocardial infarction Psychotic disorder Respiratory disorder Stroke No Family History of: AIDS Abdominal aortic aneurysm Abdominal aortic aneurysm Ebervale's disease Ebervale's disease Alzheimer's disease Aphasia Aphasia Congenital disease Congenital heart disease Congenital heart disease Congestive heart failure Coronary thrombosis Cystic fibrosis Cystic fibrosis Deafness or hearing loss Dementia Dementia Drug abuse Dysphagia Dysphasia Family history: Alzheimer's disease Family history: Breast disease Family history: Glaucoma Family history: Osteoporosis Fibrocystic disease of breast Gastroenteritis Glaucoma Headache disorder Hereditary disease History of - disorder History of drug abuse Human immunodeficiency virus (HIV) seropositivity Infertility Kidney disease Kidney disease Neoplasm Not obtainable due to adoption Osteoporosis Parkinson's disease Parkinson's disease Prostate cancer Psychosocial problem Seizure disorder Seizure disorder Severe allergy Thyroid disease Tuberculosis Tuberculosis Visual disorder Visual impairment Review of Systems Constitutional: see HPI Physical Exam Vital Signs Vital Signs - First Documented 05/11/22 05/11/22 00:37 03:36 Temp 36.9 Pulse 136 Resp 26 B/P (MAP) 181/116 (137) Pulse Ox 91 O2 Delivery Nasal Cannula O2 Flow Rate 2.00 FiO2 60 Capillary Refill : Less Than 3 Seconds Height, Weight, BMI Height: 5'5.00" Weight: 184lbs. 5.0oz. 83.688535ed; 36.39 BMI Method:Stated General Appearance: Anxious Eyes: Bilateral Eye Normal Inspection HEENT: Pharynx Normal Neck: Supple Respiratory: Crackles (N basis), Wheezing (currently mild and scattered throughout) Cardiovascular: Regular Rate, Rhythm Gastrointestinal: Normal Bowel Sounds Rectal: Deferred Back: Normal Inspection Extremity: Normal Capillary Refill Comments [facility], [place] NAME: SUJEY FELIZ [facility] REC#: [id number] PT STATUS: DEP ER : 1960 PHYSICIAN: STEPHANIE GREENWOOD ADMIT DATE: 05/10/22/ER Signed Date of Exam:05/10/22 CHEST 1 VIEW, AP/PA ONLY INDICATION: Fever, shortness of air, cough. COMPARISON: 02/21/2022. TECHNIQUE: Single radiograph of the chest dated 05/10/2022. FINDINGS: The cardiac silhouette is enlarged, similar to the prior exam. No significant pulmonary vascular congestion. The lungs are again noted to be hyperinflated. The upper lungs are clear. Mild bibasilar opacities are present, slightly worsened since the prior examination. No definite pleural effusion. No pneumothorax. No acute osseous abnormality. IMPRESSION: Persistent background pulmonary hyperinflation is again noted, similar to the prior exams. Mild bibasilar opacities, appearing similar to the prior exam. This is predominantly felt to relate to superimposition of overlying soft tissues, though mild bibasilar pneumonitis is not excluded. Mild cardiomegaly without pulmonary vascular congestion. Dictated by: Dictated on workstation # [id number] Dict: 05/10/22 1425 Trans: 05/10/22 1608 [id number] [id number] Interpreted by: LEOBARDO SAINI MD Electronically signed by: LEOBARDO SAINI MD 05/10/22 1608 Assessment/Plan Assessment and Plan 1. COPD exacerbation with moderate respiratory distress on admission -IV Solu-Medrol initiated in the emergency department 125 mg -BiPAP initiated 2. Influenza A -she has past window to utilize Tamiflu 3. Chest x-ray bases with pneumonitis -Will initiate IV ceftriaxone Admission Diagnosis 1. COPD exacerbation with moderate respiratory distress on admission 2. Influenza A 3. Chest x-ray bases with pneumonitis Admission Status: Inpatient Order (span 2 midnights) Reason for Inpatient Admission: further pulmonary care. She will receive initially BiPAP through the emergency department. Also will initiate IV ceftriaxone since she does have a history of getting infiltrates fairly easily JAY WOLF MD May 11, 2022 10:49
[2022-05-11] MEDS ORDERED: ACETAMINOPHEN 325 MG TABLET PO PRN (11:45)
[2022-05-11] MEDS ORDERED: cefTRIAXone 1 GM PRE-MIX 50 ML IV SCH (11:45)
[2022-05-11] MEDS: cefTRIAXone 1 GM PRE-MIX 50 ML IV SCH (14:12)
[2022-05-11] MEDS: methylPREDNISolone 125 MG (Solu-MEDROL) VIAL IVP SCH ×2 (14:12→21:00)
[2022-05-11] MEDS ORDERED: ALPRAZolam 1 MG (XANAX) TAB PO PRN (15:15)
[2022-05-11] MEDS ORDERED: ACETAMINOPHEN 500 MG TAB (TYLENOL) PO PRN (15:15)
[2022-05-11] MEDS ORDERED: HYOSCYAMINE 0.125 MG (LEVSIN) TAB PO PRN (15:15)
[2022-05-11] MEDS: warFARin 5 MG (COUMADIN) TAB PO SCH (17:34)
[2022-05-11] MEDS: RT-ALBUTEROL/IPRATROPIUM 3 ML (DUONEB) VIAL INH PRN (19:50)
[2022-05-11] MEDS ORDERED: RT-IPRATROPIUM (ATROVENT) 0.5MG/2.5ML AMP IH SCH (21:00)
[2022-05-11] MEDS: KCL 10 MEQ TAB (MICRO K) PO SCH (21:00)
[2022-05-11] MEDS: MONTELUKAST 10 MG (SINGULAIR) TAB PO SCH (21:00)
[2022-05-12] VITALS (8 sets, daily range): BP systolic 108–143; BP diastolic 64–90
[2022-05-12] MEDS: RT-ALBUTEROL/IPRATROPIUM 3 ML (DUONEB) VIAL INH PRN (00:25)
[2022-05-12] MEDS: RT-ALBUTEROL/IPRATROPIUM 3 ML (DUONEB) VIAL INH SCH ×6 (02:42→21:40)
--- NOTE | 2022-05-12 05:19 | Progress Note - Hospitalist ---
Subjective HPI/CC On Admission Date Seen by Provider: May 12, 2022 Time Seen by Provider: 05:15 Subjective/Events-last exam Patient doing a lot better No major concerns Moving to fourth floor Decrease steroids Change to regular diet Review of Systems Pulmonary: Dyspnea, Cough Objective Exam Vital Signs Vital Signs Date Time Temp Pulse Resp B/P (MAP) Pulse Ox O2 Delivery O2 Flow Rate FiO2 05/12/22 07:58 91 High Flow N/C 6.00 05/12/22 07:00 105 05/12/22 06:00 18 117/81 (93) 05/12/22 04:00 36.6 05/11/22 09:00 60 Capillary Refill : Less Than 3 Seconds General Appearance: No Apparent Distress, WD/WN, Chronically ill Respiratory: No Accessory Muscle Use, No Respiratory Distress, Decreased Breath Sounds Cardiovascular: Regular Rate, Rhythm Neurologic/Psychiatric: Alert, Oriented x3, No Motor/Sensory Deficits, Normal Mood/Affect Results/Procedures Lab Laboratory Tests 05/12/22 05:22 Patient resulted labs reviewed. Assessment/Plan Assessment and Plan Assess & Plan/Chief Complaint Assessment: Acute on chronic respiratory failure Severe COPD Recent flu a Plan: Moved to fourth floor Decrease steroids Oxygen STACY HOLGUIN DO May 12, 2022 05:19
[2022-05-12 05:52] LABS: BASOPHILS % (AUTO) 0 % (0-10); EOSINOPHILS % (AUTO) 0 % (0-10); HEMATOCRIT 39 % (35-52); HEMOGLOBIN 12.1 g/dL (11.5-16.0); LYMPHOCYTES # (AUTO) 0.6 10^3/uL (1.0-4.0); LYMPHOCYTES % (AUTO) 6 % (12-44); MEAN CORPUSCULAR HEMOGLOBIN 27 pg (25-34); MEAN CORPUSCULAR HGB CONC 31 g/dL (32-36); MEAN CORPUSCULAR VOLUME 87 fL (80-99); MEAN PLATELET VOLUME 8.7 fL (9.0-12.2); MONOCYTES # (AUTO) 0.4 10^3/uL (0.0-1.0); MONOCYTES % (AUTO) 4 % (0-12); NEUTROPHILS # (AUTO) 7.6 10^3/uL (1.8-7.8); NEUTROPHILS % (AUTO) 89 % (42-75); PLATELET COUNT 236 10^3/uL (130-400); WHITE BLOOD COUNT 8.6 10^3/uL (4.3-11.0)
[2022-05-12 05:59] LABS: ALBUMIN 3.6 GM/DL (3.2-4.5); POTASSIUM 3.9 MMOL/L (3.6-5.0)
[2022-05-12 06:00] LABS: INR 2.1 (0.8-1.4); PROTHROMBIN TIME PATIENT 23.8 SEC (12.2-14.7)
[2022-05-12 06:01] LABS: CALCIUM 8.8 MG/DL (8.5-10.1)
[2022-05-12 06:02] LABS: TOTAL PROTEIN 6.9 GM/DL (6.4-8.2)
[2022-05-12 06:04] LABS: BILIRUBIN,TOTAL 0.2 MG/DL (0.1-1.0)
[2022-05-12 06:05] LABS: CREATININE SERUM 0.67 MG/DL (0.60-1.30)
[2022-05-12] MEDS: methylPREDNISolone 125 MG (Solu-MEDROL) VIAL IVP SCH ×3 (06:08→21:25)
[2022-05-12 07:35] LABS: BAND NEUTROPHILS 2 %; BASOPHILS % (MANUAL) 0 %; EOSINOPHILS % (MANUAL) 0 %; LYMPHOCYTES % (MANUAL) 6 %; MONOCYTES % (MANUAL) 5 %; NEUTROPHILS % (MANUAL) 87 %
[2022-05-12 07:36] LABS: ANISOCYTOSIS SLIGHT
[2022-05-12] MEDS: LORATADINE (CLARITIN) 10 MG TAB PO SCH (08:59)
[2022-05-12] MEDS: PANTOPRAZOLE 40 MG (PROTONIX) TAB PO SCH (08:59)
[2022-05-12] MEDS: KCL 10 MEQ TAB (MICRO K) PO SCH ×2 (08:59→20:28)
[2022-05-12] MEDS: cefTRIAXone 1 GM PRE-MIX 50 ML IV SCH (13:08)
[2022-05-12] MEDS: warFARin 4 MG (COUMADIN) TAB PO SCH (18:01)
[2022-05-12] MEDS: MONTELUKAST 10 MG (SINGULAIR) TAB PO SCH (20:28)
[2022-05-13 04:00] VITALS: BP 126/82
--- NOTE | 2022-05-13 05:29 | Progress Note - Hospitalist ---
Subjective HPI/CC On Admission Date Seen by Provider: May 13, 2022 Time Seen by Provider: 05:30 Subjective/Events-last exam Patient doing a lot better Cough is better but requesting cough medicine No pain is reported Decreasing IV steroids Wheezing is still present but improved Checking labs: INR 2.5 Review of Systems Pulmonary: Dyspnea, Cough Objective Exam Vital Signs Vital Signs Date Time Temp Pulse Resp B/P (MAP) Pulse Ox O2 Delivery O2 Flow Rate FiO2 05/13/22 07:26 36.5 98 22 116/70 (85) 91 High Flow N/C 6.00 05/11/22 09:00 60 Capillary Refill : Less Than 3 Seconds General Appearance: No Apparent Distress, WD/WN, Chronically ill Respiratory: No Accessory Muscle Use, No Respiratory Distress, Decreased Breath Sounds, Wheezing Cardiovascular: Regular Rate, Rhythm Neurologic/Psychiatric: Alert, Oriented x3, No Motor/Sensory Deficits, Normal Mood/Affect Results/Procedures Lab Laboratory Tests 05/13/22 06:00 Patient resulted labs reviewed. Assessment/Plan Assessment and Plan Assess & Plan/Chief Complaint Assessment: Acute on chronic respiratory failure Severe COPD Recent flu A Cough Coumadin therapy Plan: No changes to Coumadin dosing Decrease steroids Oxygen STACY HOLGUIN DO May 13, 2022 05:29
[2022-05-13] MEDS: inSUlin ASPART (NovoLOG) 1 UNIT/0.01 ML (CHARGE PER UNIT) SC SCH ×4 (06:11→21:00)
[2022-05-13 06:12] LABS: BASOPHILS % (AUTO) 0 % (0-10); EOSINOPHILS % (AUTO) 0 % (0-10); HEMATOCRIT 42 % (35-52); HEMOGLOBIN 13.1 g/dL (11.5-16.0); LYMPHOCYTES # (AUTO) 0.9 10^3/uL (1.0-4.0); LYMPHOCYTES % (AUTO) 7 % (12-44); MEAN CORPUSCULAR HEMOGLOBIN 27 pg (25-34); MEAN CORPUSCULAR HGB CONC 32 g/dL (32-36); MEAN CORPUSCULAR VOLUME 86 fL (80-99); MEAN PLATELET VOLUME 8.6 fL (9.0-12.2); MONOCYTES # (AUTO) 0.6 10^3/uL (0.0-1.0); MONOCYTES % (AUTO) 5 % (0-12); NEUTROPHILS # (AUTO) 11.6 10^3/uL (1.8-7.8); NEUTROPHILS % (AUTO) 88 % (42-75); PLATELET COUNT 287 10^3/uL (130-400); WHITE BLOOD COUNT 13.2 10^3/uL (4.3-11.0)
[2022-05-13] MEDS: RT-ALBUTEROL/IPRATROPIUM 3 ML (DUONEB) VIAL INH SCH ×5 (06:21→22:10)
[2022-05-13 06:31] LABS: INR 2.5 (0.8-1.4); PROTHROMBIN TIME PATIENT 27.6 SEC (12.2-14.7)
[2022-05-13 06:38] LABS: ALBUMIN 3.8 GM/DL (3.2-4.5); BILIRUBIN,TOTAL 0.2 MG/DL (0.1-1.0); CREATININE SERUM 0.73 MG/DL (0.60-1.30); POTASSIUM 4.2 MMOL/L (3.6-5.0); TOTAL PROTEIN 7.5 GM/DL (6.4-8.2)
[2022-05-13 07:26] VITALS: BP 116/70
[2022-05-13] MEDS: methylPREDNISolone 125 MG (Solu-MEDROL) VIAL IVP SCH ×2 (09:34→21:02)
[2022-05-13] MEDS: KCL 10 MEQ TAB (MICRO K) PO SCH ×2 (09:35→21:03)
[2022-05-13] MEDS: PANTOPRAZOLE 40 MG (PROTONIX) TAB PO SCH (09:35)
[2022-05-13] MEDS: LORATADINE (CLARITIN) 10 MG TAB PO SCH (09:35)
[2022-05-13 11:19] VITALS: BP 125/75
[2022-05-13] MEDS: guaiFENesin/CODEINE (ROBITUSSIN AC) 10ML UDC PO PRN ×2 (11:35→21:03)
[2022-05-13] MEDS: PROMETHAZINE 25 MG (PHENERGAN) TAB PO PRN (11:35)
[2022-05-13] MEDS: cefTRIAXone 1 GM PRE-MIX 50 ML IV SCH (13:35)
[2022-05-13 15:58] VITALS: BP 116/78
[2022-05-13] MEDS: warFARin 4 MG (COUMADIN) TAB PO SCH (17:55)
[2022-05-13 19:45] VITALS: BP 118/75
[2022-05-13] MEDS: MONTELUKAST 10 MG (SINGULAIR) TAB PO SCH (21:03)
[2022-05-13 23:35] VITALS: BP 127/81
[2022-05-14] VITALS (8 sets, daily range): BP systolic 108–142; BP diastolic 64–80
[2022-05-14] MEDS: RT-ALBUTEROL/IPRATROPIUM 3 ML (DUONEB) VIAL INH SCH ×5 (02:17→21:58)
[2022-05-14] MEDS: inSUlin ASPART (NovoLOG) 1 UNIT/0.01 ML (CHARGE PER UNIT) SC SCH ×5 (05:37→21:08)
[2022-05-14] MEDS: methylPREDNISolone 125 MG (Solu-MEDROL) VIAL IVP SCH ×2 (07:25→21:22)
[2022-05-14] MEDS: KCL 10 MEQ TAB (MICRO K) PO SCH ×2 (07:25→21:22)
[2022-05-14] MEDS: LORATADINE (CLARITIN) 10 MG TAB PO SCH (07:25)
[2022-05-14] MEDS: PROMETHAZINE 25 MG (PHENERGAN) TAB PO PRN (07:25)
[2022-05-14] MEDS: PANTOPRAZOLE 40 MG (PROTONIX) TAB PO SCH (07:25)
--- NOTE | 2022-05-14 09:29 | Progress Note ---
Subjective Date Seen by a Provider: May 14, 2022 Time Seen by a Provider: 08:40 Subjective/Events-last exam patient currently on medical floor receiving 6 L by nasal cannula oxygen. She does report that the influenza has really been hard on her. She reports having nausea and just not able to keep foods down or at least decreased appetite. Her breathing overall is slowly getting better Objective Exam Vital Signs Date Time Temp Pulse Resp B/P (MAP) Pulse Ox O2 Delivery O2 Flow Rate FiO2 05/14/22 08:00 High Flow N/C 6.00 05/14/22 08:00 36.5 98 18 118/78 (91) 92 High Flow N/C 6.00 05/14/22 07:23 94 High Flow N/C 6.00 05/14/22 03:21 36.1 93 19 108/64 (79) 95 High Flow N/C 6.00 6.00 05/14/22 02:17 94 High Flow N/C 6.00 05/13/22 23:35 36.1 85 19 127/81 (96) 93 High Flow N/C 6.00 6.00 05/13/22 22:11 94 High Flow N/C 6.00 05/13/22 20:28 High Flow N/C 6.00 05/13/22 19:45 36.4 104 19 118/75 (89) 22 Nasal Cannula 6.00 05/13/22 18:15 94 High Flow N/C 6.00 05/13/22 15:58 36.8 110 19 116/78 (91) 93 Nasal Cannula 6.00 05/13/22 14:38 90 High Flow N/C 6.00 05/13/22 11:19 36.8 102 24 125/75 (92) 91 High Flow N/C 6.00 05/13/22 10:11 92 High Flow N/C 6.00 I & O 05/14/22 07:00 Intake Total 1500 ml Balance 1500 ml Capillary Refill : Less Than 3 Seconds General Appearance: Mild Distress (due to slight shortness of breath) HEENT: Pharynx Normal Respiratory: Wheezing Cardiovascular: Regular Rate, Rhythm Gastrointestinal: soft Results Lab Laboratory Tests 05/13/22 11:18: Glucometer 114H 05/14/22 05:33: Glucometer 216H Assessment/Plan Assessment/Plan Assess & Plan/Chief Complaint 1. COPD exacerbation with moderate respiratory distress on admission -IV Solu-Medrol initiated in the emergency department 125 mg -BiPAP initiated 05/14/2022 -currently on IV Solu-Medrol at 80 mg every 8 hours. -She is on 6 L nasal cannula oxygen. She understands this will need to be lower before she is discharged. 2. Influenza A -she has past window to utilize Tamiflu 3. Chest x-ray bases with pneumonitis -Will initiate IV ceftriaxone 05/14/2022 -We'll check chest x-ray today to exclude worsening of her pneumonitis Clinical Quality Measures Admission Status Admission Dx 1. COPD exacerbation with moderate respiratory distress on admission 2. Influenza A 3. Chest x-ray bases with pneumonitis LEAH WOLF MD May 14, 2022 09:29
--- NOTE | 2022-05-14 11:31 | Diagnostic Imaging Report ---
INDICATION: Chest pain and cough. TIME OF EXAM: 11:23 AM. COMPARISON: Correlation is made with the prior chest of 07/04/2021. FINDINGS: The heart size is normal. The lungs are hyperinflated, consistent with COPD. No infiltrates are seen. There is no effusion or pneumothorax identified. IMPRESSION: COPD. No acute feature is detected. Dictated by: Dictated on workstation # [id number]
[2022-05-14] MEDS: cefTRIAXone 1 GM PRE-MIX 50 ML IV SCH (13:20)
[2022-05-14] MEDS: guaiFENesin/CODEINE (ROBITUSSIN AC) 10ML UDC PO PRN ×2 (16:19→21:28)
[2022-05-14] MEDS: warFARin 5 MG (COUMADIN) TAB PO SCH (17:27)
[2022-05-14] MEDS: MONTELUKAST 10 MG (SINGULAIR) TAB PO SCH (21:22)
[2022-05-15] VITALS (8 sets, daily range): BP systolic 118–168; BP diastolic 69–99
[2022-05-15] MEDS: RT-ALBUTEROL/IPRATROPIUM 3 ML (DUONEB) VIAL INH SCH ×6 (02:38→22:24)
[2022-05-15 06:09] LABS: BASOPHILS % (AUTO) 0 % (0-10); EOSINOPHILS % (AUTO) 0 % (0-10); HEMATOCRIT 40 % (35-52); HEMOGLOBIN 12.6 g/dL (11.5-16.0); LYMPHOCYTES # (AUTO) 0.6 10^3/uL (1.0-4.0); LYMPHOCYTES % (AUTO) 6 % (12-44); MEAN CORPUSCULAR HEMOGLOBIN 27 pg (25-34); MEAN CORPUSCULAR HGB CONC 32 g/dL (32-36); MEAN CORPUSCULAR VOLUME 85 fL (80-99); MEAN PLATELET VOLUME 8.7 fL (9.0-12.2); MONOCYTES # (AUTO) 0.4 10^3/uL (0.0-1.0); MONOCYTES % (AUTO) 4 % (0-12); NEUTROPHILS # (AUTO) 9.9 10^3/uL (1.8-7.8); NEUTROPHILS % (AUTO) 90 % (42-75); PLATELET COUNT 241 10^3/uL (130-400)
[2022-05-15 06:50] LABS: INR 3.1 (0.8-1.4); PROTHROMBIN TIME PATIENT 32.4 SEC (12.2-14.7)
[2022-05-15] MEDS: inSUlin ASPART (NovoLOG) 1 UNIT/0.01 ML (CHARGE PER UNIT) SC SCH ×4 (07:30→20:29)
[2022-05-15] MEDS: methylPREDNISolone 125 MG (Solu-MEDROL) VIAL IVP SCH ×2 (07:31→20:29)
[2022-05-15] MEDS: KCL 10 MEQ TAB (MICRO K) PO SCH ×2 (07:31→20:29)
[2022-05-15] MEDS: PANTOPRAZOLE 40 MG (PROTONIX) TAB PO SCH (07:31)
[2022-05-15] MEDS: LORATADINE (CLARITIN) 10 MG TAB PO SCH (07:31)
--- NOTE | 2022-05-15 08:00 | Progress Note ---
Subjective Date Seen by a Provider: May 15, 2022 Time Seen by a Provider: 07:15 Subjective/Events-last exam patient overall reports her breathing has improved. She is still somewhat feeling the effects of influenza. Her wheezing and shortness of breath has persisted but overall better. Objective Exam Vital Signs Date Time Temp Pulse Resp B/P (MAP) Pulse Ox O2 Delivery O2 Flow Rate FiO2 05/15/22 06:39 91 High Flow N/C 6.00 05/15/22 03:18 36.7 88 20 118/69 (85) 93 High Flow N/C 6.00 6.00 05/15/22 02:39 95 High Flow N/C 6.00 05/14/22 23:14 36.6 105 20 123/72 (89) 91 High Flow N/C 6.00 6.00 05/14/22 21:58 90 High Flow N/C 6.00 05/14/22 20:00 High Flow N/C 6.00 05/14/22 19:37 37.4 121 20 127/70 (89) 92 High Flow N/C 6.00 05/14/22 19:00 92 High Flow N/C 6.00 05/14/22 16:39 90 119/80 (93) 05/14/22 15:23 36.9 111 18 142/73 (96) 93 High Flow N/C 6.00 05/14/22 14:49 92 High Flow N/C 6.00 05/14/22 11:26 36.6 97 18 119/71 (87) 93 High Flow N/C 6.00 05/14/22 10:56 92 High Flow N/C 6.00 05/14/22 08:00 High Flow N/C 6.00 05/14/22 08:00 36.5 98 18 118/78 (91) 92 High Flow N/C 6.00 I & O 05/15/22 07:00 Intake Total 2340 ml Output Total 2000 ml Balance 340 ml Capillary Refill : Less Than 3 Seconds General Appearance: Anxious (mild) HEENT: Moist Mucous Membranes Respiratory: Lungs Clear (with occasional expiratory wheeze) Cardiovascular: Regular Rate, Rhythm Gastrointestinal: soft Results Lab Laboratory Tests 05/14/22 11:25: Glucometer 170H 05/15/22 04:45: Glucometer 190H 05/15/22 05:22: White Blood Count 11.0, Red Blood Count 4.67, Hemoglobin 12.6, Hematocrit 40, Mean Corpuscular Volume 85, Mean Corpuscular Hemoglobin 27, Mean Corpuscular Hemoglobin Concent 32, Red Cell Distribution Width 16.8H, Platelet Count 241, Mean Platelet Volume 8.7L, Immature Granulocyte % (Auto) 0, Neutrophils (%) (Auto) 90H, Lymphocytes (%) (Auto) 6L, Monocytes (%) (Auto) 4, Eosinophils (%) (Auto) 0, Basophils (%) (Auto) 0, Neutrophils # (Auto) 9.9H, Lymphocytes # (Auto) 0.6L, Monocytes # (Auto) 0.4, Eosinophils # (Auto) 0.0, Basophils # ( Auto) 0.0, Immature Granulocyte # (Auto) 0.0, Prothrombin Time 32.4H, INR Comment 3.1H Assessment/Plan Assessment/Plan Assess & Plan/Chief Complaint 1. COPD exacerbation with moderate respiratory distress on admission -IV Solu-Medrol initiated in the emergency department 125 mg -BiPAP initiated 05/14/2022 -currently on IV Solu-Medrol at 80 mg every 8 hours. -She is on 6 L nasal cannula oxygen. She understands this will need to be lower before she is discharged. 05/15/2022 -nasal cannula oxygen still at 6 L. Will attempt to decrease the amount to 2 or 3 today. -Suspect home in the morning of May 16, 2022 2. Influenza A -she has past window to utilize Tamiflu 3. Chest x-ray bases with pneumonitis -Will initiate IV ceftriaxone 05/14/2022 -We'll check chest x-ray today to exclude worsening of her pneumonitis 05/15/2022 -Chest x-ray from yesterday reported clear of pneumonia or infiltrates -tomorrow will change her antibiotic to oral and suspect discharge to home Clinical Quality Measures Admission Status Admission Dx 1. COPD exacerbation with moderate respiratory distress on admission 2. Influenza A 3. Chest x-ray bases with pneumonitis LEAH WOLF MD May 15, 2022 08:00
[2022-05-15] MEDS ORDERED: ZINC50TA51 PO (09:47)
[2022-05-15] MEDS ORDERED: FURO40TA4 PO (09:47)
[2022-05-15] MEDS ORDERED: HYDR-3820 PO (09:47)
[2022-05-15] MEDS ORDERED: PRED10TA22 PO (10:30)
[2022-05-15] MEDS ORDERED: PRD10T PO (10:31)
[2022-05-15] MEDS: cefTRIAXone 1 GM PRE-MIX 50 ML IV SCH (13:18)
[2022-05-15] MEDS: warFARin 4 MG (COUMADIN) TAB PO SCH (17:19)
[2022-05-15] MEDS: guaiFENesin/CODEINE (ROBITUSSIN AC) 10ML UDC PO PRN (20:28)
[2022-05-15] MEDS: MONTELUKAST 10 MG (SINGULAIR) TAB PO SCH (20:29)
[2022-05-16 03:45] VITALS: BP 118/70
[2022-05-16] MEDS: RT-ALBUTEROL/IPRATROPIUM 3 ML (DUONEB) VIAL INH SCH ×3 (05:04→11:48)
[2022-05-16 05:59] LABS: PROTHROMBIN TIME PATIENT 31.7 SEC (12.2-14.7)
[2022-05-16 07:30] VITALS: BP 138/77
--- NOTE | 2022-05-16 07:37 | Discharge Inst-Simple/Standard ---
Discharge Inst-Standard Reconcile Patient Problems Problems Reviewed?: Yes Discharge Medications New, Converted or Re-Newed RX: Other (Prednisone sent to [facility]) Patient Instructions/Follow Up Plan of Care/Instructions/FU: Dr Wolf within the week. Taper prednisone over 9 days as instructed. Activity as Tolerated: Yes Discharge Diet: Regular Diet Return to The Hospital For: Severe shortness of breath. LEAH WOLF MD May 16, 2022 07:37
--- NOTE | 2022-05-16 07:40 | Discharge Summary ---
Diagnosis/Chief Complaint Date of Admission May 11, 2022 at 10:49 Date of Discharge May 16, 2022 Discharge Date: May 16, 2022 Admission Diagnosis Admission Diagnosis 1. COPD exacerbation with moderate respiratory distress 2. Influenza A 3. Pneumonitis Discharge Diagnosis 1. COPD exacerbation with moderate respiratory distress 2. Influenza A 3. Pneumonitis Reason Hospital Visit 61-year-old female presents to [facility] emergency department during the evening of May 10, 2022 with acute shortness of breath. She does have a history of known COPD with frequent exacerbations. She apparently was recently diagnosed with influenza A. She admits being around relatives that within the last few weeks had Covid 19 but not influenza that she was aware of. She does have a cough associated with her current condition. She may have ran a fever but she didn't check her temperature. She had chest x-ray performed in the morning of May 10. At home she has been utilizing 2-3 L of nasal cannula oxygen. She had seen her oxygen saturations drop into the 80s. She had recently been in office and received a prednisone taper Discharge Summary Hospital Course Was the Problem List Reviewed?: Yes Hospital Course 1. COPD exacerbation with moderate respiratory distress on admission -IV Solu-Medrol initiated in the emergency department 125 mg -BiPAP initiated 05/14/2022 -currently on IV Solu-Medrol at 80 mg every 8 hours. -She is on 6 L nasal cannula oxygen. She understands this will need to be lower before she is discharged. 05/15/2022 -nasal cannula oxygen still at 6 L. Will attempt to decrease the amount to 2 or 3 today. -Suspect home in the morning of May 16, 2022 2. Influenza A -she has past window to utilize Tamiflu 3. Chest x-ray bases with pneumonitis -Will initiate IV ceftriaxone 05/14/2022 -We'll check chest x-ray today to exclude worsening of her pneumonitis 05/15/2022 -Chest x-ray from yesterday reported clear of pneumonia or infiltrates -tomorrow will change her antibiotic to oral and suspect discharge to home Labs Laboratory Tests 05/13/22 11:18: Glucometer 114H 05/14/22 05:33: Glucometer 216H 05/14/22 11:25: Glucometer 170H 05/15/22 04:45: Glucometer 190H 1/3/23 05:22: Red Cell Distribution Width 16.8H, Mean Platelet Volume 8.7L, Neutrophils (%) (Auto) 90H, Lymphocytes (%) (Auto) 6L, Neutrophils # (Auto) 9.9H, Lymphocytes # (Auto) 0.6L, Prothrombin Time 32.4H, INR Comment 3.1H 05/15/22 11:39: Glucometer 151H 05/15/22 15:26: Glucometer 169H 05/15/22 19:53: Glucometer 241H 05/16/22 05:02: Glucometer 176H 05/16/22 05:25: Prothrombin Time 31.7H, INR Comment 3.0H Procedures None. Discharge Physical Examination Allergies: Coded Allergies: aspirin (Verified Allergy, Severe, ANAPHYLAXIS, 03/03/19) ibuprofen (Verified Allergy, Severe, ANAPHYLAXIS, 03/03/19) ketorolac (Verified Allergy, Severe, ANAPHYLAXIS, 03/03/19) tetanus and diphtheria toxoids (Unverified Allergy, Severe, ANAPHYLAXIS, 03/03/19) aloe (Verified Allergy, Mild, RASH, 03/03/19) latex (Verified Allergy, Mild, RASH, 03/03/19) OCCASIONALLY IS IRRITATING SKIN scopolamine (Verified Allergy, Mild, 03/03/19) black pepper (Verified Allergy, Unknown, 10/20/21) chocolate flavor (Verified Allergy, Unknown, 10/20/21) coconut (Verified Allergy, Unknown, 10/20/21) tomato (Verified Allergy, Unknown, Rash, 10/20/21) iodine (Verified Adverse Reaction, Unknown, 03/03/19) Patient states she got dizzy, diaphoretic and saw stars. Uncoded Allergies: ALOE VERA (Allergy, Unknown, 12/23/05) SILK SUTURES (Adverse Reaction, Unknown, BODY REJECTS SUTURES, 10/07/13) Vitals & I&Os Vital Signs Date Time Temp Pulse Resp B/P (MAP) Pulse Ox O2 Delivery O2 Flow Rate FiO2 05/16/22 07:30 36.2 81 20 138/77 (97) 94 4.00 05/16/22 05:04 High Flow N/C 05/11/22 09:00 60 Discharge Home Medications Reviewed and agree with Discharge Medication list on patient's Discharge Instruction sheet Instructions to Patient/Family Please see electronic discharge instructions given to patient. LEAH WOLF MD May 16, 2022 07:40
[2022-05-16] MEDS: inSUlin ASPART (NovoLOG) 1 UNIT/0.01 ML (CHARGE PER UNIT) SC SCH (08:29)
[2022-05-16] MEDS: methylPREDNISolone 125 MG (Solu-MEDROL) VIAL IVP SCH (08:30)
[2022-05-16] MEDS: LORATADINE (CLARITIN) 10 MG TAB PO SCH (08:31)
[2022-05-16] MEDS: PANTOPRAZOLE 40 MG (PROTONIX) TAB PO SCH (08:31)
[2022-05-16] MEDS: KCL 10 MEQ TAB (MICRO K) PO SCH (08:31)
[2022-05-16 12:16] VITALS: BP 137/70
[2022-05-16 12:20] VITALS: BP 137/70
== END 2022-05-16 12:20 | disposition home or self-care (01) | DRG 193 ==
LOC: EDUNIT# 00:31 → ER 00:32 → CSD 02:48 → OBSVTOIN 10:49 → 4TH 05-12 07:57
PROVIDERS: ADMIT Family Medicine; ATTEND Family Medicine
PROC: 5A09357 Assistance with Respiratory Ventilation, Less than 24 Consecutive Hours, Continuous Positive Airway Pressure (ICD-10-PCS; principal; 2022-05-11)
PROC: 5A0945A Assistance with Respiratory Ventilation, 24-96 Consecutive Hours, High Flow/Velocity Cannula (ICD-10-PCS; 2022-05-13)
DX: J10.00 Influenza due to other identified influenza virus with unspecified type of pneumonia (principal); J96.20 Acute and chronic respiratory failure, unspecified whether with hypoxia or hypercapnia; J44.1 Chronic obstructive pulmonary disease with (acute) exacerbation; J44.0 Chronic obstructive pulmonary disease with (acute) lower respiratory infection
CPT/HCPCS: 36415; 36600; 71046; 80053; 82805; 82947; 84145; 85007; 85025; 85027; 85610; 94640; 94660; 94760; 96374

== ENCOUNTER 2022-05-23 08:49 | Outpatient (RCR) | payer MEDICAID ==
[~2022-05-23 08:49] MED LIST changes: +ZINC50TA51 PO
[2022-05-23 09:20] LABS: INR 2.2 (0.8-1.4); PROTHROMBIN TIME PATIENT 24.7 SEC (12.2-14.7)
== END 2022-06-12 | disposition home or self-care (01) ==
LOC: LAB 08:49
PROVIDERS: ATTEND Family Medicine
DX: Z86.718 Personal history of other venous thrombosis and embolism (principal); Z86.711 Personal history of pulmonary embolism
CPT/HCPCS: 36415; 85610

== ENCOUNTER → 2022-05-30 | Outpatient (CLI) | payer MEDICAID ==
--- NOTE | 2022-05-30 13:39 | Diagnostic Imaging Report ---
INDICATION: Routine screening. Comparison is made with prior mammogram from 01/27/2021 and 11/19/2019. 2-D and 3-D bilateral screening mammography was performed with CAD. Scattered fibroglandular densities are identified bilaterally. A varicosity in the outer portion of the right breast is noted. No spiculated mass or malignant-appearing microcalcifications are seen. Axillae are unremarkable. IMPRESSION: No mammographic features suspicious for malignancy are identified. ACR BI-RADS Category 1: Negative. Result letter will be mailed to the patient. Note: At least 10% of breast cancer is not imaged by mammography. BI-RADS Category 1 Dictated by: Dictated on workstation # [id number]
== END ==
LOC: RAD 11:22
PROVIDERS: ATTEND Family Medicine
DX: Z12.31 Encounter for screening mammogram for malignant neoplasm of breast (principal)
CPT/HCPCS: 77063; 77067

== ENCOUNTER 2022-07-09 10:03 | Outpatient (RCR) | payer MEDICAID ==
[2022-07-09 10:35] LABS: INR 1.3 (0.8-1.4)
== END 2022-07-10 | disposition home or self-care (01) ==
LOC: LAB 10:03
PROVIDERS: ATTEND Family Medicine
DX: Z86.718 Personal history of other venous thrombosis and embolism (principal); Z86.711 Personal history of pulmonary embolism
CPT/HCPCS: 36415; 85610

== ENCOUNTER 2022-08-02 10:27 | Outpatient (RCR) | payer MEDICAID ==
[2022-07-24 08:33] LABS: INR 1.7 (0.8-1.4); PROTHROMBIN TIME PATIENT 20.2 SEC (12.2-14.7)
[2022-08-02 10:47] LABS: INR 1.9 (0.8-1.4)
== END 2022-08-10 | disposition home or self-care (01) ==
LOC: LAB 10:27
PROVIDERS: ATTEND Family Medicine
DX: Z86.711 Personal history of pulmonary embolism (principal); Z86.718 Personal history of other venous thrombosis and embolism
CPT/HCPCS: 36415; 85610

== ENCOUNTER → 2022-08-09 | Outpatient (CLI) | payer MEDICAID ==
--- NOTE | 2022-08-09 17:05 | Diagnostic Imaging Report ---
INDICATION: Persistent cough. Comparison is made with prior examination of 05/14/2022. FINDINGS: The heart size is normal. There is no pleural effusion or pneumothorax. Mediastinum is unremarkable. There is no consolidative pneumonia. IMPRESSION: No acute cardiopulmonary abnormality. Dictated by: Dictated on workstation # [id number]
== END ==
LOC: RAD 14:15
PROVIDERS: ATTEND Family Medicine
DX: R05.3 Chronic cough (principal)
CPT/HCPCS: 71046

== ENCOUNTER 2022-09-11 13:53 | Outpatient (RCR) | payer MEDICAID ==
[2022-09-11 15:57] LABS: INR 1.8 (0.8-1.4); PROTHROMBIN TIME PATIENT 21.4 SEC (12.2-14.7)
[2022-09-24] MEDS ORDERED: PRD10T PO (14:16)
[2022-09-24] MEDS ORDERED: ACET-2267 PO (14:17)
== END 2022-10-10 | disposition home or self-care (01) ==
LOC: LAB 13:53
PROVIDERS: ATTEND Family Medicine
DX: Z86.711 Personal history of pulmonary embolism (principal); Z86.718 Personal history of other venous thrombosis and embolism
CPT/HCPCS: 36415; 85610

== ENCOUNTER 2022-09-24 10:50 | Observation (INO) | payer MEDICAID ==
[~2022-09-24] VITALS: Ht 165 cm; Wt 111.3 kg
--- NOTE | 2022-09-24 11:06 | ED Respiratory ---
General Chief Complaint: Respiratory Problems Stated Complaint: SOB Nursing Triage Note: Patient reports SOA x3 days, progressively getting worse. Patient has productive cough. Pt wears 2-3L at home at night and has needed oxygen during the day for the last few days. Source: patient Exam Limitations: no limitations History of Present Illness Date Seen by Provider: September 24, 2022 Time Seen by Provider: 11:05 Initial Comments Patient is a 62-year-old female with a history of PE, DVT, asthma who presents to the ED with shortness of breath. Shortness of breath over the past 2 days. She does wear 2 to 3 L of oxygen at home. She has been wearing her oxygen daily secondary to low oxygen. On arrival 88% on room air. Was placed on 3 L with improvement. She reports a wet productive cough with chest congestion over the past 4 days. She reports greenish-yellow sputum production. She reports notable wheezing. Has been using her nebulizer treatment and albuterol inhaler at home without much improvement. She denies of any specific chest pain, headache, abdominal pain, vomiting, diarrhea, leg pain. 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 Has been on warfarin since 2009. Denies fever, chills, body aches, sore throat, ear pain Allergies and Home Medications Allergies Coded Allergies: aspirin (Verified Allergy, Severe, ANAPHYLAXIS, 03/03/19) ibuprofen (Verified Allergy, Severe, ANAPHYLAXIS, 03/03/19) ketorolac (Verified Allergy, Severe, ANAPHYLAXIS, 03/03/19) tetanus and diphtheria toxoids (Unverified Allergy, Severe, ANAPHYLAXIS, 03/03/19) aloe (Verified Allergy, Mild, RASH, 03/03/19) latex (Verified Allergy, Mild, RASH, 03/03/19) OCCASIONALLY IS IRRITATING SKIN scopolamine (Verified Allergy, Mild, 03/03/19) black pepper (Verified Allergy, Unknown, 10/20/21) chocolate flavor (Verified Allergy, Unknown, 10/20/21) coconut (Verified Allergy, Unknown, 10/20/21) tomato (Verified Allergy, Unknown, Rash, 10/20/21) iodine (Verified Adverse Reaction, Unknown, 03/03/19) Patient states she got dizzy, diaphoretic and saw stars. Uncoded Allergies: ALOE VERA (Allergy, Unknown, 12/23/05) SILK SUTURES (Adverse Reaction, Unknown, BODY REJECTS SUTURES, 10/07/13) Patient Home Medication List Home Medication List Reviewed: Yes Albuterol Sulfate (Albuterol Sulfate) 2.5 Mg/3 Ml (0.083 %) Vial.neb, 2.5 MG INH TID PRN for SHORTNESS OF BREATH, (Reported) Entered as Reported by: VERNA KIM on 12/25/21 1555 Albuterol Sulfate (Ventolin Hfa) 1 Puff Puff, 2 PUFF IH Q4H PRN for SHORTNESS OF BREATH, (Reported) Entered as Reported by: VERNA KIM on 12/25/21 1600 Alprazolam (Alprazolam) 1 Mg Tablet, 1 MG PO BID PRN for ANXIETY, (Reported) Entered as Reported by: JESÚS PHILLIPS on 03/07/15 1623 Ascorbic Acid (Vitamin C) 1,000 Mg Tablet, 1,000 MG PO DAILY, (Reported) Entered as Reported by: SHAMIR SALAZAR on 06/13/21 1034 Calcium Carbonate/Vitamin D3 (Calcium 600 + Vit D 200 Tablet) 1 Each Tablet, 1 EACH PO BID, (Reported) Entered as Reported by: SHAMIR SALAZAR on 06/13/21 1034 Cholecalciferol (Vitamin D3) (Vitamin D3) 25 Mcg Capsule, 25 MCG PO DAILY, (Reported) Entered as Reported by: SHAMIR SALAZAR on 06/13/21 1034 Furosemide (Furosemide) 40 Mg Tablet, 40 MG PO DAILY PRN for FLUID RETENTION, (Reported) Entered as Reported by: VERNA KIM on 05/15/22 0947 Hydrocodone/Acetaminophen (Hydrocodone-Acetamin 10-325 mg) 10 Mg-325 Mg Tablet, 1 EACH PO Q6H PRN for PAIN-MODERATE (5-7), (Reported) Entered as Reported by: VERNA KIM on 05/15/22 0947 Hyoscyamine Sulfate (Hyoscyamine Sulfate) 0.125 Mg Tablet, 0.125 MG PO Q6H PRN for GI SPASMS, (Reported) Entered as Reported by: SHAMIR SALAZAR on 02/21/22 1511 Ipratropium Catarina (Ipratropium Catarina) 0.2 Mg/1 Ml Solution, 1 VIAL NEB TID, (Reported) Entered as Reported by: JESÚS PHILLIPS on 03/07/15 1640 Loratadine (Loratadine) 10 Mg Tablet, 10 MG PO DAILY, (Reported) Entered as Reported by: JESÚS PHILLIPS on 03/07/15 1623 Montelukast Sodium (Montelukast Sodium) 10 Mg Tablet, 10 MG PO HS, (Reported) Entered as Reported by: MELISSA MONTERO on 05/18/17 1103 Pantoprazole Sodium (Pantoprazole Sodium) 40 Mg Tablet.dr, 40 MG PO DAILY, (Reported) Entered as Reported by: JESÚS PHILLIPS on 03/07/15 162 Potassium Chloride (K-Tab ER) 10 Meq Tablet.er, 20 MEQ PO BID, (Reported) Entered as Reported by: YOSSI NELSON on 05/28/19 09 Warfarin Sodium (Jantoven) 4 Mg Tablet, 4 MG PO NORTH,,TH,SAT @1800, (Reported) Entered as Reported by: YOSSI NELSON on 05/28/19 09 Warfarin Sodium (Jantoven) 5 Mg Tablet, 5 MG PO MO,WE,FR @1800, (Reported) Entered as Reported by: SHAMIR SALAZAR on 07/20/19 1602 Zinc Amino Acid Chelate (Zinc) 50 Mg Tablet, 50 MG PO DAILY, (Reported) Entered as Reported by: VERNA KIM on 05/15/22 0947 Review of Systems Review of Systems Constitutional: No chills, No fever, No malaise, No weakness EENTM: No blurred vision, No double vision, No hoarseness, No mouth pain, No mouth swelling Respiratory: cough, short of breath Cardiovascular: No chest pain Gastrointestinal: No abdominal pain, No diarrhea, No nausea, No vomiting 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: No decreased output Musculoskeletal: No back pain, No joint pain Skin: No change in color, No change in hair/nails All Other Systems Reviewed Negative Unless Noted: Yes Past Ctlamww-Xshgth-Nldfab Hx Immunizations Up To Date Tetanus Booster (TDap): Unknown PED Vaccines UTD: No First/Initial COVID19 Vaccinat: NO Second COVID19 Vaccination Alverto: NO Third COVID19 Vaccination Date: NO Seasonal Allergies Seasonal Allergies: Yes Past Medical History Surgery/Hospitalization HX: Heart cath, hysterectomy, knee scope, ablasion on both knees, hernia reapir, copd, chf, asthma Surgeries: Yes (C/S X2, KNEE SCOPE, SHOULDER SCOPE, d&C, BILAT ULNAR NERVE, VENA CAVA FILTE) Abdominal, Adenoidectomy, Section, Gallbladder, Hysterectomy, Orthopedic, Tonsillectomy, Tubal Ligation, Vascular Surgery Respiratory: Yes (O2 AT HS 2-3L/NC AND PRN--NOCTURNAL HYPOXIA; ) Asthma, Pneumonia, Chronic Bronchitis, Pulmonary Embolism, COPD Currently Using CPAP: No Currently Using BIPAP: No Cardiac: Yes (MULTIPLE DVT'S AND P.E.'S ) Chronic Edema/Swelling, Deep Vein Thrombosis, High Cholesterol, Hypertension, Peripheral Vascular Neurological: Yes Neuropathy 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 Disorders: Yes [employer] History: Hysterectomy, Menopausal Sexually Transmitted Disease: No HIV/AIDS: No 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: Yes Kidney Infection, Bladder Infection, Kidney Stones Gastrointestinal: Yes (MULTIPLE HERNIA REPAIRS; MULTIPLE EGD'S /COLONOSCOPIES/POLYPECTOMIES) Abdominal Hernia, Gastroesophageal Reflux, Chronic Constipation, Chronic Diarrhea, Hepatitis, Polyps, Hiatal Hernia, Irritable Bowel Musculoskeletal: Yes (MULTIPLE ORTHO SURGERIES) Arthritis Endocrine: Yes ("PRE-DIABETIC" ) HEENT: Yes (NASAL POLYPS REMOVED) Cataract Loss of Vision: Denies Hearing Impairment: Denies Cancer: No Did You Recieve Any Treatments: No Psychosocial: Yes Anxiety Integumentary: Yes (CHRONIC VENOUS STASIS DERMATITIS AND ULCERS. CELLULTITIS OF LEGS;TATTOOS ) Blood Disorders: Yes (DVT'S/PE'S; PROBABLE PROTEIN C DEFICIENCY) Adverse Reaction/Blood Tranf: No (HAS HAD BLOOD WITH NO PROBLEMS) Family Medical History Alcoholism Alcoholism Arthritis Asthma 19 MOTHER Cancer G8 BROTHER G8 SISTER Cancer of colon Cancer of mouth Cardiovascular disease Cataract Cataracts Chest pain Colon cancer Completed stroke Diabetes mellitus Family history: Allergy Family history: Arthritis Family history: Asthma Family history: Cardiovascular disease Family history: Coronary thrombosis Family history: Diabetes mellitus G8 BROTHER G8 SISTER Family history: Gastrointestinal disease Family history: Hypertension Family history: Thyroid disorder Headache Hearing loss Heart disease 19 MOTHER History of - anemia History of - respiratory disease Hypercholesterolemia Hypercholesterolemia Hypertension 19 FATHER Infertile Malignant neoplasm of lung Myocardial infarction Myocardial infarction Psychotic disorder Respiratory disorder Stroke No Family History of: AIDS Abdominal aortic aneurysm Abdominal aortic aneurysm Fernando's disease Mariposa's disease Alzheimer's disease Aphasia Aphasia Congenital disease Congenital heart disease Congenital heart disease Congestive heart failure Coronary thrombosis Cystic fibrosis Cystic fibrosis Deafness or hearing loss Dementia Dementia Drug abuse Dysphagia Dysphasia Family history: Alzheimer's disease Family history: Breast disease Family history: Glaucoma Family history: Osteoporosis Fibrocystic disease of breast Gastroenteritis Glaucoma Headache disorder Hereditary disease History of - disorder History of drug abuse Human immunodeficiency virus (HIV) seropositivity Infertility Kidney disease Kidney disease Neoplasm Not obtainable due to adoption Osteoporosis Parkinson's disease Parkinson's disease Prostate cancer Psychosocial problem Seizure disorder Seizure disorder Severe allergy Thyroid disease Tuberculosis Tuberculosis Visual disorder Visual impairment Cancer, COPD, Vascular Disease SOCIAL HISTORY: -ETOH--RARE USE NOW, HISTORY OF HEAVY USE/ABUSE -DRUGS-HX OF IV COCAINE USE -SMOKED 1 PPD, QUIT 2000 PAST SURGICAL HISTORY: -C-SECTIONS 1981, 1985 -SHOULDER SURGERY 2007 -LEFT KNEE SURGERY 2008 -D&C 2008 -HYSTERECTOMY/BILATERAL SALPINGO-OOPHORECTOMY 2008 -VENA CAVA FILTER 2009 -EGD 2010 -VEIN STRIPPING IN LEGS 2012 -BILATERAL ELBOW/ULNAR NERVE SURGERY 2012 -MULTIPLE HERNIA REPAIRS -MULTIPLE EGD'S AND COLONOSCOPIES AND POLYPECTOMIES -TONSILLECTOMY/ADENOIDECTOMY -CHOLECYSTECTOMY -NASAL POLYPS REMOVED -BILATERAL LEG RADIOABLATION 06/2018 ADDITIONAL PAST MEDICAL HISTORY: -MULTIPLE DVT'S AND P.E.'S -CHRONIC VENOUS STASIS ULCERATIONS -LEG CELLULITIS Physical Exam Vital Signs - First Documented 09/24/22 10:55 Temp 37.0 Pulse 112 Resp 22 B/P (MAP) 173/112 (132) Pulse Ox 91 O2 Delivery Nasal Cannula O2 Flow Rate 2.00 Capillary Refill : Height: 5'5.00" Weight: 184lbs. 5.0oz. 83.195714vv; 35.00 BMI Method:Stated General Appearance: WD/WN, no apparent distress Eyes: Bilateral Eye Normal Inspection, Bilateral Eye PERRL, Bilateral Eye EOMI HEENT: PERRL/EOMI, normal ENT inspection, TMs normal, pharynx normal Neck: non-tender, full range of motion, supple, normal inspection Respiratory: no respiratory distress, no accessory muscle use, wheezing Cardiovascular: no edema, no gallop, no JVD, tachycardia Gastrointestinal: normal bowel sounds, non tender, soft, no organomegaly Neurologic/Psychiatric: stock clerk II-XII nml as tested, no motor/sensory deficits, alert, normal mood/affect Skin: other (Stasis dermatitis bilateral lower extremities, varicose veins) Focused Exam Lactate Level 09/24/22 11:00: Lactic Acid Level 1.80 Lactic Acid Level Laboratory Tests Test 09/24/22 11:00 Lactic Acid Level 1.80 MMOL/L (0.50-2.00) Progress/Results/Core Measures Suspected Sepsis SIRS Temperature: Pulse: 112 Respiratory Rate: 22 Laboratory Tests 09/24/22 11:00: White Blood Count 7.7 Blood Pressure 173 /112 Mean: 132 09/24/22 11:00: Lactic Acid Level 1.80 Laboratory Tests 09/24/22 11:00: Creatinine 0.69, INR Comment 1.6H, Platelet Count 237, Total Bilirubin 0.3 Results/Orders Lab Results Laboratory Tests Test 09/24/22 11:00 09/24/22 11:10 09/24/22 11:30 Range/Units White Blood Count 7.7 4.3-11.0 10^3/uL Red Blood Count 4.62 3.80-5.11 10^6/uL Hemoglobin 12.6 11.5-16.0 g/dL Hematocrit 40 35-52 % Mean Corpuscular Volume 87 80-99 fL Mean Corpuscular Hemoglobin 27 25-34 pg Mean Corpuscular Hemoglobin Concent 31 L 32-36 g/dL Red Cell Distribution Width 16.8 H 10.0-14.5 % Platelet Count 237 130-400 10^3/uL Mean Platelet Volume 8.6 L 9.0-12.2 fL Immature Granulocyte % (Auto) 0 % Neutrophils (%) (Auto) 66 42-75 % Lymphocytes (%) (Auto) 23 12-44 % Monocytes (%) (Auto) 7 0-12 % Eosinophils (%) (Auto) 4 0-10 % Basophils (%) (Auto) 1 0-10 % Neutrophils # (Auto) 5.0 1.8-7.8 10^3/uL Lymphocytes # (Auto) 1.8 1.0-4.0 10^3/uL Monocytes # (Auto) 0.5 0.0-1.0 10^3/uL Eosinophils # (Auto) 0.3 0.0-0.3 10^3/uL Basophils # (Auto) 0.1 0.0-0.1 10^3/uL Immature Granulocyte # (Auto) 0.0 0.0-0.1 10^3/uL Prothrombin Time 18.9 H 12.2-14.7 SEC INR Comment 1.6 H 0.8-1.4 Activated Partial Thromboplast Time 29 24-35 SEC D-Dimer < 0.27 0.00-0.49 UG/ML Sodium Level 142 135-145 MMOL/L Potassium Level 4.1 3.6-5.0 MMOL/L Chloride Level 107 98-107 MMOL/L Carbon Dioxide Level 24 21-32 MMOL/L Anion Gap 11 5-14 MMOL/L Blood Urea Nitrogen 11 7-18 MG/DL Creatinine 0.69 0.60-1.30 MG/DL Estimat Glomerular Filtration Rate 97 BUN/Creatinine Ratio 16 Glucose Level 118 H 70-105 MG/DL Lactic Acid Level 1.80 0.50-2.00 MMOL/L Calcium Level 8.7 8.5-10.1 MG/DL Corrected Calcium 8.8 8.5-10.1 MG/DL Total Bilirubin 0.3 0.1-1.0 MG/DL Aspartate Amino Transf (AST/SGOT) 16 5-34 U/L Alanine Aminotransferase (ALT/SGPT) 18 0-55 U/L Alkaline Phosphatase 73 40-136 U/L Troponin I < 0.028 <0.028 NG/ML B-Type Natriuretic Peptide < 10.0 <100.0 PG/ML Total Protein 7.5 6.4-8.2 GM/DL Albumin 3.9 3.2-4.5 GM/DL Influenza Type A (RT-PCR) Not Detected Not Detecte Influenza Type B (RT-PCR) Not Detected Not Detecte SARS-CoV-2 RNA (RT-PCR) Not Detected Not Detecte Urine Color YELLOW Urine Clarity CLEAR Urine pH 6.5 5-9 Urine Specific [place] <=1.005 1.016-1.022 Urine Protein NEGATIVE NEGATIVE Urine Glucose (UA) NEGATIVE NEGATIVE Urine Ketones NEGATIVE NEGATIVE Urine Nitrite NEGATIVE NEGATIVE Urine Bilirubin NEGATIVE NEGATIVE Urine Urobilinogen 0.2 < = 1.0 MG/DL Urine Leukocyte Esterase NEGATIVE NEGATIVE Urine RBC (Auto) TRACE-I H NEGATIVE Urine RBC RARE /HPF Urine WBC NONE /HPF Urine Squamous Epithelial Cells RARE /HPF Urine Crystals NONE /LPF Urine Bacteria TRACE /HPF Urine Casts NONE /LPF Urine Mucus NEGATIVE /LPF Urine Culture Indicated CULTURE PENDING My Orders Orders - WILLI TIM Cbc With Automated Diff (09/24/22 11:02) Comprehensive Metabolic Panel (09/24/22 11:02) Blood Culture (09/24/22 11:02) Sputum Culture (09/24/22 11:02) Urinalysis (09/24/22 11:02) Urine Culture (09/24/22 11:02) Protime With Inr (09/24/22 11:02) Partial Thromboplastin Time (09/24/22 11:02) Chest 1 View, Ap/Pa Only (09/24/22 11:02) Ed Iv/Invasive Line Start (09/24/22 11:02) Vital Signs Adult Sepsis Patie Q15M (09/24/22 11:02) O2 (09/24/22 11:02) Lactic Acid Analyzer (09/24/22 11:02) Influenza A And B By Pcr (09/24/22 11:02) Ns Iv 1000 Ml (Sodium Chloride 0.9%) (09/24/22 11:15) Ceftriaxone Iv/Im (Rocephin Iv/Im) (09/24/22 11:15) Covid 19 Inhouse Test (09/24/22 11:02) Methylprednisolone Sod Succ (Solu-Medrol (09/24/22 11:15) Albuterol/Ipra Inhalation Soln (Duoneb I (09/24/22 11:15) Svn Small Volume Nebulizer (09/24/22 11:02) Fibrin Degradation Products (09/24/22 11:05) Ekg Tracing (09/24/22 11:06) Troponin I [place] (09/24/22 11:45) Bnp [place] (09/24/22 11:45) Medications Given in ED Current Medications Medications Dose Ordered Sig/Nahomi Route Start Time Stop Time Status Last Admin Dose Admin Albuterol/ Ipratropium 3 ml ONCE ONCE INH 09/24/22 11:15 09/24/22 11:16 DC 09/24/22 11:39 3 ML Ceftriaxone Sodium 1000 mg/ Sodium Chloride 50 ml @ 100 mls/hr ONCE ONCE IV 09/24/22 11:15 09/24/22 11:44 DC 09/24/22 11:31 100 MLS/HR Methylprednisolone Sodium Succinate 125 mg ONCE ONCE IVP 09/24/22 11:15 09/24/22 11:16 DC 09/24/22 11:31 125 MG Vital Signs/I&O 09/24/22 09/24/22 09/24/22 10:55 11:34 11:40 Temp 37.0 Pulse 112 Resp 22 B/P (MAP) 173/112 (132) Pulse Ox 91 95 O2 Delivery Nasal Cannula Nasal Cannula Nasal Cannula O2 Flow Rate 2.00 2.00 3.00 Capillary Refill : Blood Pressure Mean: 132 ECG Comment Sinus tachycardia, 105 bpm, QRS duration 90 MS, QTc 399 MS Departure Communication (PCP) Reviewed previous ER visits, H&P, lab testing. History of DVT PE chronically on warfarin. History of COPD/asthma. Does do nebulizer treatment at home. Reviewed previous ER visits, H&P, lab testing. Increasing short of breath with wet productive cough since . No chest pain or abdominal pain. No known cardiac history according to patient besides history of PE. differential diagnosis of COPD exacerbation, pneumonia, asthma exacerbation, CHF, PE. General lab work, cardiac work-up, chest x-ray, COVID influenza was ordered. She was given 125 mg Solu-Medrol and DuoNeb breathing treatment with some improvement. Oxygen on arrival 85 8% on room air. Was placed on 2 L oxygen with improvement to 95%. She was tachycardic but afebrile. Sepsis protocol was initiated. Met SIRS criteria with tachycardia and hypoxia. she had a normal white blood count, hemoglobin and platelet. Chemistry was grossly unremarkable with normal cardiac enzyme. Normal D-dimer. Subtherapeutic INR 1.6. Blood cultures pending. Normal lactic acid. Chest x-ray was negative for pneumonia. EKG sinus tachycardia. No obvious source of infection. Has been wearing oxygen over the past 48 hours. Due to the increased oxygen intake with mild respiratory distress patient will be admitted for serial breathing treatments, steroids. Patient was discussed with Dr. Wolf patient's primary care physician who agreed to accept patient for COPD versus asthma exacerbation Impression Primary Impression: Acute exacerbation of chronic obstructive pulmonary disease Additional Impression: Asthma exacerbation Disposition: ADMITTED INPATIENT Condition: Stable Admissions Decision to Admit Reason: Admit from ER (General) Decision to Admit/Date: September 24, 2022 Time/Decision to Admit Time: 12:30 Departure-Patient Inst. Referrals: LEAH WOLF MD (PCP/Family) Primary Care Physician WILLI TIM September 24, 2022 11:05
[2022-09-24 11:10] LABS: BASOPHILS # (AUTO) 0.1 10^3/uL (0.0-0.1); BASOPHILS % (AUTO) 1 % (0-10); EOSINOPHILS # (AUTO) 0.3 10^3/uL (0.0-0.3); EOSINOPHILS % (AUTO) 4 % (0-10); HEMATOCRIT 40 % (35-52); HEMOGLOBIN 12.6 g/dL (11.5-16.0); LYMPHOCYTES # (AUTO) 1.8 10^3/uL (1.0-4.0); LYMPHOCYTES % (AUTO) 23 % (12-44); MEAN CORPUSCULAR HEMOGLOBIN 27 pg (25-34); MEAN CORPUSCULAR HGB CONC 31 g/dL (32-36); MEAN CORPUSCULAR VOLUME 87 fL (80-99); MEAN PLATELET VOLUME 8.6 fL (9.0-12.2); MONOCYTES # (AUTO) 0.5 10^3/uL (0.0-1.0); MONOCYTES % (AUTO) 7 % (0-12); NEUTROPHILS % (AUTO) 66 % (42-75); PLATELET COUNT 237 10^3/uL (130-400); WHITE BLOOD COUNT 7.7 10^3/uL (4.3-11.0)
[2022-09-24] MEDS ORDERED: cefTRIAXone IV/IM 1,000 MG in NS (IVPB) 50 ML IV ONE (11:15)
[2022-09-24] MEDS ORDERED: methylPREDNISolone 125 MG (Solu-MEDROL) VIAL IVP ONE (11:15)
[2022-09-24] MEDS ORDERED: NS IV 1000 ML 1,000 ML IV SCH (11:15)
[2022-09-24] MEDS ORDERED: RT-ALBUTEROL/IPRATROPIUM 3 ML (DUONEB) VIAL INH ONE (11:15)
[2022-09-24 11:21] LABS: ALBUMIN 3.9 GM/DL (3.2-4.5); POTASSIUM 4.1 MMOL/L (3.6-5.0)
[2022-09-24 11:22] LABS: INR 1.6 (0.8-1.4); PROTHROMBIN TIME PATIENT 18.9 SEC (12.2-14.7)
[2022-09-24 11:23] LABS: CALCIUM 8.7 MG/DL (8.5-10.1); PARTIAL THROMBOPLASTIN TIME 29 SEC (24-35)
[2022-09-24 11:24] LABS: TOTAL PROTEIN 7.5 GM/DL (6.4-8.2)
[2022-09-24 11:26] LABS: BILIRUBIN,TOTAL 0.3 MG/DL (0.1-1.0)
[2022-09-24 11:27] LABS: CREATININE SERUM 0.69 MG/DL (0.60-1.30)
[2022-09-24 11:30] LABS: FIBRIN DEGRADATION PRODUCTS < 0.27 UG/ML (0.00-0.49)
[2022-09-24 11:38] LABS: BILIRUBIN,URINE NEGATIVE (NEGATIVE); CLARITY,URINE CLEAR; COLOR,URINE YELLOW; GLUCOSE, URINE (UA) NEGATIVE (NEGATIVE); KETONES,URINE NEGATIVE (NEGATIVE); LEUKOCYTE ESTERASE ,URINE NEGATIVE (NEGATIVE); NITRITE,URINE NEGATIVE (NEGATIVE); PH,URINE 6.5 (5-9); PROTEIN,URINE NEGATIVE (NEGATIVE)
--- NOTE | 2022-09-24 11:44 | Diagnostic Imaging Report ---
INDICATION: Cough. Comparison is made with prior examination of 05/10/2022. FINDINGS: The heart size, mediastinal configuration, and pulmonary vascularity are within normal limits. There is no pleural effusion, pneumothorax, or pneumonia. The osseous structures are unremarkable. IMPRESSION: No acute cardiopulmonary abnormality. Dictated by: Dictated on workstation # [id number]
[2022-09-24 11:46] LABS: BACTERIA,URINE TRACE /HPF; RBC,URINE RARE /HPF; SQUAMOUS EPITHELIAL CELL,UR RARE /HPF
[2022-09-24 13:58] VITALS: BP 140/89
[2022-09-24] MEDS ORDERED: RT-ALBUTEROL/IPRATROPIUM 3 ML (DUONEB) VIAL IH PRN (14:00)
[2022-09-24] MEDS: CATHETER FLUSH 10 ML SYR IVP SCH ×2 (14:00→20:45)
[2022-09-24] MEDS ORDERED: CATHETER FLUSH 10 ML SYR IVP PRN (14:00)
[2022-09-24] MEDS ORDERED: RT-ALBUTEROL/IPRATROPIUM 3 ML (DUONEB) VIAL INH PRN (14:15)
[2022-09-24] MEDS ORDERED: PRD10T PO (14:16)
[2022-09-24] MEDS ORDERED: ACET-2267 PO (14:17)
[2022-09-24 17:00] VITALS: BP 122/80
[2022-09-24] MEDS ORDERED: guaiFENesin/CODEINE (ROBITUSSIN AC) 10ML UDC PO PRN (17:00)
--- NOTE | 2022-09-24 17:10 | History & Physicial ---
History of Present Illness History of Present Illness Reason for visit/HPI 62-year-old female presents to emergency room with shortness of breath. She reports her breathing has worsened over the past few days. She does wear 2 or 3 L of oxygen by nasal cannula at home. She does have history of COPD with frequent exacerbations as well as acute asthma. She has had yellow/green sputum over the past few days as well. She has also been using her albuterol and iprat ropium treatments without significant improvement. There is been no significant fever Date of Admission September 24, 2022 at 13:39 Date Seen by a Provider: September 24, 2022 Time Seen by a Provider: 16:45 I consulted on this patient on 09/24/22 17:07 Attending Physician Jay Wolf MD Admitting Physician Admitting Physician: Jay Wolf MD Attending Physician: Jay Wolf MD Consult Allergies and Home Medications Allergies Coded Allergies: aspirin (Verified Allergy, Severe, ANAPHYLAXIS, 03/03/19) ibuprofen (Verified Allergy, Severe, ANAPHYLAXIS, 03/03/19) ketorolac (Verified Allergy, Severe, ANAPHYLAXIS, 03/03/19) tetanus and diphtheria toxoids (Unverified Allergy, Severe, ANAPHYLAXIS, 03/03/19) aloe (Verified Allergy, Mild, RASH, 03/03/19) latex (Verified Allergy, Mild, RASH, 03/03/19) OCCASIONALLY IS IRRITATING SKIN scopolamine (Verified Allergy, Mild, 03/03/19) chocolate flavor (Verified Allergy, Unknown, 10/20/21) coconut (Verified Allergy, Unknown, 10/20/21) tomato (Verified Allergy, Unknown, Rash, 10/20/21) iodine (Verified Adverse Reaction, Unknown, 03/03/19) Patient states she got dizzy, diaphoretic and saw stars. Uncoded Allergies: ALOE VERA (Allergy, Unknown, 12/23/05) SILK SUTURES (Adverse Reaction, Unknown, BODY REJECTS SUTURES, 10/07/13) Patient Home Medication List Home Medication List Reviewed: Yes Acetaminophen (Tylenol Extra Strength) 500 Mg Tablet, 1,000 MG PO Q8H PRN for PAIN-MILD (1-4), (Reported) Entered as Reported by: VERNA KIM on 09/24/22 6707 Last Action: Continued Albuterol Sulfate (Albuterol Sulfate) 2.5 Mg/3 Ml (0.083 %) Vial.neb, 2.5 MG INH TID PRN for SHORTNESS OF BREATH, (Reported) Entered as Reported by: VERNA KIM on 12/25/21 1555 Last Action: Held Albuterol Sulfate (Ventolin Hfa) 1 Puff Puff, 2 PUFF IH Q4H PRN for SHORTNESS OF BREATH, (Reported) Entered as Reported by: VERNA KIM on 12/25/21 1600 Last Action: Continued Alprazolam (Alprazolam) 1 Mg Tablet, 1 MG PO BID PRN for ANXIETY, (Reported) Entered as Reported by: JESÚS PHILLIPS on 03/07/15 162 Last Action: Continued Ascorbic Acid (Vitamin C) 1,000 Mg Tablet, 1,000 MG PO DAILY, (Reported) Entered as Reported by: SHAMIR SALAZAR on 06/13/21 1034 Last Action: Held Calcium Carbonate/Vitamin D3 (Calcium 600 + Vit D 200 Tablet) 1 Each Tablet, 1 EACH PO BID, (Reported) Entered as Reported by: SHAMIR SALAZAR on 06/13/21 103 Last Action: Held Cholecalciferol (Vitamin D3) (Vitamin D3) 25 Mcg Capsule, 25 MCG PO DAILY, (Reported) Entered as Reported by: SHAMIR SALAZAR on 06/13/21 103 Last Action: Held Furosemide (Furosemide) 40 Mg Tablet, 40 MG PO DAILY PRN for FLUID RETENTION, (Reported) Entered as Reported by: VERNA KIM on 05/15/22 0947 Last Action: Continued Hyoscyamine Sulfate (Hyoscyamine Sulfate) 0.125 Mg Tablet, 0.125 MG PO Q6H PRN for GI SPASMS, (Reported) Entered as Reported by: SHAMIR SALAZAR on 02/21/22 1511 Last Action: Continued Ipratropium [place] (Ipratropium [place]) 0.2 Mg/1 Ml Solution, 1 VIAL NEB TID, (Reported) Entered as Reported by: JESÚS PHILLIPS on 03/07/15 1640 Last Action: Continued Loratadine (Loratadine) 10 Mg Tablet, 10 MG PO DAILY, (Reported) Entered as Reported by: JESÚS PHILLIPS on 03/07/15 1623 Last Action: Continued Montelukast Sodium (Montelukast Sodium) 10 Mg Tablet, 10 MG PO HS, (Reported) Entered as Reported by: MELISSA MONTERO on 05/18/17 1103 Last Action: Continued Pantoprazole Sodium (Pantoprazole Sodium) 40 Mg Tablet.dr, 40 MG PO DAILY, (Reported) Entered as Reported by: JESÚS PHILLIPS on 03/07/15 1623 Last Action: Continued Potassium Chloride (K-Tab ER) 10 Meq Tablet.er, 20 MEQ PO BID, (Reported) Entered as Reported by: YOSSI NELSON on 05/28/19 0952 Last Action: Continued Prednisone (Prednisone) 10 Mg Tab, 10 MG PO DAILY, (Reported) Entered as Reported by: VERNA KIM on 09/24/22 1416 Last Action: Held Warfarin Sodium (Jantoven) 4 Mg Tablet, 4 MG PO NORTH,,TH,SAT @1800, (Reported) Entered as Reported by: YOSSI NELSON on 05/28/19951 Last Action: Held Warfarin Sodium ([place]ant[place]) 5 Mg Tablet, 5 MG PO MO,,FR @1800, (Reported) Entered as Reported by: SHAMIR SALAZAR on 07/20/19 1602 Last Action: Held Zinc Amino Acid Chelate (Zinc) 50 Mg Tablet, 50 MG PO DAILY, (Reported) Entered as Reported by: VERNA KIM on 05/15/22 0947 Last Action: Held Past Dwvnlhe-Vknolq-Ymguer Hx Patient Social History Employed/Student: retired Drug of Choice: + IV COCAINE USE Former Smoker, Quit: Nov 17, 2000 2nd Hand Smoke Exposure: No Recent Hopitalizations: No (05/21/19 knee sx) Have you traveled recently?: No Alcohol Use?: No Pt feels they are or have been: No Immunizations Up To Date Tetanus Booster (TDap): Unknown Pediatric: No Date of Pneumonia Vaccine: Sep 05, 2016 Date of Influenza Vaccine: Mar 11, 2012 Seasonal Allergies Seasonal Allergies: Yes Surgeries Yes (C/S X2, KNEE SCOPE, SHOULDER SCOPE, d&C, BILAT ULNAR NERVE, VENA CAVA FILTE) Abdominal, Adenoidectomy, Section, Gallbladder, Hysterectomy, Orthopedic, Tonsillectomy, Tubal Ligation, Vascular Surgery Respiratory Yes (O2 AT HS 2-3L/NC AND PRN--NOCTURNAL HYPOXIA; ) Currently Using CPAP: No Currently Using BIPAP: No Cardiovascular Yes (MULTIPLE DVT'S AND P.E.'S ) Chronic Edema/Swelling, Deep Vein Thrombosis, High Cholesterol, Hypertension, Peripheral Vascular Neurological Yes Neuropathy 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 System Hx 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 Disorders: Yes Sexually Transmitted Disease: No HIV/AIDS: No [employer]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[employer]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 [employer] History: Hysterectomy, Menopausal 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 Yes Kidney Infection, Bladder Infection, Kidney Stones Gastrointestinal Yes (MULTIPLE HERNIA REPAIRS; MULTIPLE EGD'S /COLONOSCOPIES/POLYPECTOMIES) Abdominal Hernia, Gastroesophageal Reflux, Chronic Constipation, Chronic Diarrhea, Hepatitis, Polyps, Hiatal Hernia, Irritable Bowel Musculoskeletal Yes (MULTIPLE ORTHO SURGERIES) Arthritis Endocrine History of Endocrine Disorders: Yes ("PRE-DIABETIC" ) HEENT History of HEENT Disorders: Yes (NASAL POLYPS REMOVED) HEENT Disorders: Cataract Loss of Vision: Denies Hearing Impairment: Denies Cancer No Did You Recieve Any Treatments: No Psychosocial History of Psychiatric Problem: Yes Behavioral Health Disorders: Anxiety Integumentary History of Skin or Integumenta: Yes (CHRONIC VENOUS STASIS DERMATITIS AND ULCERS. CELLULTITIS OF LEGS;TATTOOS ) Blood Transfusions History of Blood Disorders: Yes (DVT'S/PE'S; PROBABLE PROTEIN C DEFICIENCY) Adverse Reaction to a Blood Tr: No (HAS HAD BLOOD WITH NO PROBLEMS) Family Medical History Significant Family History: Cancer, COPD, Vascular Disease Other Significan Family Hx: SOCIAL HISTORY: -ETOH--RARE USE NOW, HISTORY OF HEAVY USE/ABUSE -DRUGS-HX OF IV COCAINE USE -SMOKED 1 PPD, QUIT 2000 PAST SURGICAL HISTORY: -C-SECTIONS 1981, 1985 -SHOULDER SURGERY 2007 -LEFT KNEE SURGERY 2008 -D&C 2008 -HYSTERECTOMY/BILATERAL SALPINGO-OOPHORECTOMY 2008 -VENA CAVA FILTER 2009 -EGD 2010 -VEIN STRIPPING IN LEGS 2012 -BILATERAL ELBOW/ULNAR NERVE SURGERY 2012 -MULTIPLE HERNIA REPAIRS -MULTIPLE EGD'S AND COLONOSCOPIES AND POLYPECTOMIES -TONSILLECTOMY/ADENOIDECTOMY -CHOLECYSTECTOMY -NASAL POLYPS REMOVED -BILATERAL LEG RADIOABLATION 06/2018 ADDITIONAL PAST MEDICAL HISTORY: -MULTIPLE DVT'S AND P.E.'S -CHRONIC VENOUS STASIS ULCERATIONS -LEG CELLULITIS Family Hx: Alcoholism Alcoholism Arthritis Asthma 19 MOTHER Cancer G8 BROTHER G8 SISTER Cancer of colon Cancer of mouth Cardiovascular disease Cataract Cataracts Chest pain Colon cancer Completed stroke Diabetes mellitus Family history: Allergy Family history: Arthritis Family history: Asthma Family history: Cardiovascular disease Family history: Coronary thrombosis Family history: Diabetes mellitus G8 BROTHER G8 SISTER Family history: Gastrointestinal disease Family history: Hypertension Family history: Thyroid disorder Headache Hearing loss Heart disease 19 MOTHER History of - anemia History of - respiratory disease Hypercholesterolemia Hypercholesterolemia Hypertension 19 FATHER Infertile Malignant neoplasm of lung Myocardial infarction Myocardial infarction Psychotic disorder Respiratory disorder Stroke No Family History of: AIDS Abdominal aortic aneurysm Abdominal aortic aneurysm Spalding's disease Spalding's disease Alzheimer's disease Aphasia Aphasia Congenital disease Congenital heart disease Congenital heart disease Congestive heart failure Coronary thrombosis Cystic fibrosis Cystic fibrosis Deafness or hearing loss Dementia Dementia Drug abuse Dysphagia Dysphasia Family history: Alzheimer's disease Family history: Breast disease Family history: Glaucoma Family history: Osteoporosis Fibrocystic disease of breast Gastroenteritis Glaucoma Headache disorder Hereditary disease History of - disorder History of drug abuse Human immunodeficiency virus (HIV) seropositivity Infertility Kidney disease Kidney disease Neoplasm Not obtainable due to adoption Osteoporosis Parkinson's disease Parkinson's disease Prostate cancer Psychosocial problem Seizure disorder Seizure disorder Severe allergy Thyroid disease Tuberculosis Tuberculosis Visual disorder Visual impairment Review of Systems Constitutional: see HPI Physical Exam Vital Signs Vital Signs - First Documented 09/24/22 10:55 Temp 37.0 Pulse 112 Resp 22 B/P (MAP) 173/112 (132) Pulse Ox 91 O2 Delivery Nasal Cannula O2 Flow Rate 2.00 Capillary Refill : Height, Weight, BMI Height: 5'5.00" Weight: 184lbs. 5.0oz. 83.671385tm; 35.26 BMI Method:Stated General Appearance: Mild Distress (Due to shortness of breath) Eyes: Bilateral Eye Normal Inspection HEENT: Pharynx Normal Neck: Supple Respiratory: Accessory Muscle Use (Mild), Crackles (In basis), Wheezing Cardiovascular: Regular Rate, Rhythm Back: Normal Inspection Extremity: Normal Capillary Refill Neurologic/Psychiatric: Alert, Oriented x3 Assessment/Plan Assessment and Plan 1. Acute exacerbation of COPD -IV Solu-Medrol initiated in ED -She is also given ceftriaxone if superimposed bronchial or early pneumonia 2. Asthma exacerbation Admission Diagnosis 1. Acute exacerbation of COPD 2. Asthma exacerbation Admission Status: Observation Reason for Inpatient Admission: Further pulmonary care to include nasal cannula oxygen, RT for breathing treatments, IV Solu-Medrol JAY WOLF MD September 24, 2022 17:10
[2022-09-24] MEDS ORDERED: ACETAMINOPHEN 500 MG TAB (TYLENOL) PO PRN (17:15)
[2022-09-24] MEDS ORDERED: ALPRAZolam 1 MG (XANAX) TAB PO PRN (17:15)
[2022-09-24] MEDS ORDERED: RT-ALBUTEROL SULF 2.5 MG/3 ML PRE-MIX VIAL IH PRN (17:15)
[2022-09-24] MEDS ORDERED: FUROSEMIDE 40 MG (LASIX) TAB PO PRN (17:15)
[2022-09-24] MEDS ORDERED: HYOSCYAMINE 0.125 MG (LEVSIN) TAB PO PRN (17:15)
[2022-09-24] MEDS ORDERED: warFARin 7.5 MG (COUMADIN) TAB PO SCH (18:00)
[2022-09-24] MEDS: KCL 10 MEQ TAB (MICRO K) PO SCH (18:19)
[2022-09-24] MEDS: RT-ALBUTEROL/IPRATROPIUM 3 ML (DUONEB) VIAL INH SCH ×2 (18:39→22:03)
[2022-09-24 19:52] VITALS: BP 114/67
[2022-09-24] MEDS ORDERED: RT-IPRATROPIUM (ATROVENT) 0.5MG/2.5ML AMP IH SCH (21:00)
[2022-09-24] MEDS ORDERED: MONTELUKAST 10 MG (SINGULAIR) TAB PO SCH (21:00)
[2022-09-24 23:36] VITALS: BP 133/73
[2022-09-25] MEDS: RT-ALBUTEROL/IPRATROPIUM 3 ML (DUONEB) VIAL INH SCH ×3 (02:15→10:34)
[2022-09-25 04:44] VITALS: BP 123/87
[2022-09-25] MEDS: CATHETER FLUSH 10 ML SYR IVP SCH ×2 (05:32→11:08)
[2022-09-25 05:45] LABS: BASOPHILS % (AUTO) 0 % (0-10); EOSINOPHILS % (AUTO) 0 % (0-10); HEMATOCRIT 38 % (35-52); HEMOGLOBIN 11.9 g/dL (11.5-16.0); LYMPHOCYTES # (AUTO) 1.4 10^3/uL (1.0-4.0); LYMPHOCYTES % (AUTO) 17 % (12-44); MEAN CORPUSCULAR HEMOGLOBIN 27 pg (25-34); MEAN CORPUSCULAR HGB CONC 32 g/dL (32-36); MEAN CORPUSCULAR VOLUME 86 fL (80-99); MONOCYTES # (AUTO) 0.7 10^3/uL (0.0-1.0); MONOCYTES % (AUTO) 9 % (0-12); NEUTROPHILS % (AUTO) 74 % (42-75); PLATELET COUNT 255 10^3/uL (130-400); WHITE BLOOD COUNT 8.2 10^3/uL (4.3-11.0)
[2022-09-25 06:00] LABS: CALCIUM 9.2 MG/DL (8.5-10.1); CREATININE SERUM 0.66 MG/DL (0.60-1.30)
[2022-09-25 07:12] VITALS: BP 122/66
[2022-09-25] MEDS: KCL 10 MEQ TAB (MICRO K) PO SCH (08:46)
[2022-09-25] MEDS ORDERED: PANTOPRAZOLE 40 MG (PROTONIX) TAB PO SCH (09:00)
[2022-09-25] MEDS ORDERED: LORATADINE (CLARITIN) 10 MG TAB PO SCH (09:00)
[2022-09-25] MEDS ORDERED: methylPREDNISolone 125 MG (Solu-MEDROL) VIAL IV SCH (11:00)
[2022-09-25] MEDS ORDERED: cefTRIAXone 1 GM/NS 50 ML IVPB IV SCH ×2 (11:00)
[2022-09-25 11:25] VITALS: BP 128/70
--- NOTE | 2022-09-25 13:06 | Discharge Inst-Simple/Standard ---
Discharge Inst-Standard Reconcile Patient Problems Problems Reviewed?: Yes Discharge Medications New, Converted or Re-Newed RX: Transmitted to Pharmacy ([facility]) Patient Instructions/Follow Up Plan of Care/Instructions/FU: Dr. Wolf within the week Activity as Tolerated: Yes Discharge Diet: Regular Diet Return to The Hospital For: Worsening shortness of breath LEAH WOLF MD September 25, 2022 13:06
--- NOTE | 2022-09-25 13:10 | Discharge Summary ---
Diagnosis/Chief Complaint Date of Admission September 24, 2022 at 13:39 Date of Discharge September 25, 2022 Discharge Date: September 25, 2022 Discharge Time: 1500 Admission Diagnosis Admission Diagnosis 1. COPD exacerbation 2. Asthma exacerbation Discharge Diagnosis 1. COPD exacerbation 2. Asthma exacerbation Reason Hospital Visit 62-year-old female presents to emergency room with shortness of breath. She reports her breathing has worsened over the past few days. She does wear 2 or 3 L of oxygen by nasal cannula at home. She does have history of COPD with frequent exacerbations as well as acute asthma. She has had yellow/green sputum over the past few days as well. She has also been using her albuterol and ipratropium treatments without significant improvement. There is been no significant fever Discharge Summary Hospital Course Was the Problem List Reviewed?: Yes Hospital Course patient was admitted for observation on September 24, 2022 after emergency room evaluation. She was found to have hypoxemia along with her COPD and asthma e xacerbation. At the time her saturations were in the upper 80 lower 90%. She had received Solu-Medrol in the emergency department as well as extended breathing treatment. She received additional albuterol treatments as well as oxygen by nasal cannula on the fourth medical floor. Additionally ceftriaxone 1 g every 24 hours due to her propensity for bronchitis and early pneumonia was given. She also received Solu-Medrol 80 mg every 12 hours during the course of her hospital stay. In the morning of September 25 her symptoms had markedly improved. she was ready for dismissal and stated she felt back to her normal breathing pattern. Her laboratory in the morning of September 25 revealed normal white blood cell count. Labs Laboratory Tests 09/24/22 11:00: Mean Corpuscular Hemoglobin Concent 31L, Red Cell Distribution Width 16.8H, Mean Platelet Volume 8.6L, Prothrombin Time 18.9H, INR Comment 1.6H, Glucose Level 118H 09/24/22 11:10: 09/24/22 11:30: Urine RBC (Auto) TRACE-IH 09/25/22 05:15: Red Cell Distribution Width 16.6H, Chloride Level 108H Procedures None. Discharge Physical Examination Allergies: Coded Allergies: aspirin (Verified Allergy, Severe, ANAPHYLAXIS, 03/03/19) ibuprofen (Verified Allergy, Severe, ANAPHYLAXIS, 03/03/19) ketorolac (Verified Allergy, Severe, ANAPHYLAXIS, 03/03/19) tetanus and diphtheria toxoids (Unverified Allergy, Severe, ANAPHYLAXIS, 03/03/19) aloe (Verified Allergy, Mild, RASH, 03/03/19) latex (Verified Allergy, Mild, RASH, 03/03/19) OCCASIONALLY IS IRRITATING SKIN scopolamine (Verified Allergy, Mild, 03/03/19) chocolate flavor (Verified Allergy, Unknown, 10/20/21) coconut (Verified Allergy, Unknown, 10/20/21) tomato (Verified Allergy, Unknown, Rash, 10/20/21) iodine (Verified Adverse Reaction, Unknown, 03/03/19) Patient states she got dizzy, diaphoretic and saw stars. Uncoded Allergies: ALOE VERA (Allergy, Unknown, 12/23/05) SILK SUTURES (Adverse Reaction, Unknown, BODY REJECTS SUTURES, 10/07/13) Vitals & I&Os Vital Signs Date Time Temp Pulse Resp B/P (MAP) Pulse Ox O2 Delivery O2 Flow Rate FiO2 09/25/22 11:25 37.4 114 20 128/70 (89) 95 Nasal Cannula 2.00 General Appearance: Alert, Oriented X3 Respiratory: Clear to Auscultation (With only faint expiratory wheeze) Cardiovascular: Regular Rate Abdominal: Normal Bowel Sounds Psych/Mental Status: Mental Status NL Discharge Home Medications Reviewed and agree with Discharge Medication list on patient's Discharge Instruction sheet Instructions to Patient/Family Please see electronic discharge instructions given to patient. LEAH WOLF MD September 25, 2022 13:10
[2022-09-25 13:30] VITALS: BP 128/70
== END 2022-09-25 13:45 | disposition home or self-care (01) ==
LOC: EDUNIT# 10:50 → ER 10:52 → UNDOADMOB 13:39 → 4TH 13:39 → UNDODISOB 09-25 13:45
PROVIDERS: ADMIT Family Medicine; ATTEND Family Medicine
DX: J44.1 Chronic obstructive pulmonary disease with (acute) exacerbation (principal); J45.901 Unspecified asthma with (acute) exacerbation; I82.509 Chronic embolism and thrombosis of unspecified deep veins of unspecified lower extremity; I27.82 Chronic pulmonary embolism; Z99.81 Dependence on supplemental oxygen; Z87.891 Personal history of nicotine dependence; Z28.310 Unvaccinated for COVID-19; Z79.01 Long term (current) use of anticoagulants; Z20.822 Contact with and (suspected) exposure to COVID-19
CPT/HCPCS: 36415; 71045; 80048; 80053; 81000; 83605; 83880; 84484; 85025; 85379; 85610; 85730; 87040; 87077; 87088; 87186; 87636; 93005; 94640; 94760; 96376; G0378

== ENCOUNTER → 2022-10-04 | Outpatient (CLI) | payer MEDICAID ==
[2022-10-04 11:18] LABS: INR 2.2 (0.8-1.4); PROTHROMBIN TIME PATIENT 24.6 SEC (12.2-14.7)
== END ==
LOC: LAB 10:50
PROVIDERS: ATTEND Family Medicine
DX: R73.9 Hyperglycemia, unspecified (principal)
CPT/HCPCS: 36415; 83036; 85610

== ENCOUNTER 2022-10-25 09:21 | Outpatient (RCR) | payer MEDICAID ==
[~2022-10-25 09:21] MED LIST changes: +DILT120C71 PO; +POTA-330 PO; -POTA-51 PO
[2022-10-25 09:57] LABS: INR 1.4 (0.8-1.4); PROTHROMBIN TIME PATIENT 17.5 SEC (12.2-14.7)
== END 2022-11-09 | disposition home or self-care (01) ==
LOC: LAB 09:21
PROVIDERS: ATTEND Family Medicine
DX: Z86.718 Personal history of other venous thrombosis and embolism (principal); Z86.711 Personal history of pulmonary embolism
CPT/HCPCS: 36415; 85610

== ENCOUNTER 2022-11-19 10:00 | Emergency (ER) | payer MEDICAID ==
[~2022-11-19] VITALS: Ht 165 cm; Wt 94.0 kg
[2022-11-19 10:48] LABS: BASOPHILS % (AUTO) 0 % (0-10); EOSINOPHILS # (AUTO) 0.2 10^3/uL (0.0-0.3); EOSINOPHILS % (AUTO) 2 % (0-10); HEMATOCRIT 42 % (35-52); HEMOGLOBIN 13.1 g/dL (11.5-16.0); LYMPHOCYTES # (AUTO) 1.3 10^3/uL (1.0-4.0); LYMPHOCYTES % (AUTO) 13 % (12-44); MEAN CORPUSCULAR HEMOGLOBIN 27 pg (25-34); MEAN CORPUSCULAR HGB CONC 31 g/dL (32-36); MEAN CORPUSCULAR VOLUME 86 fL (80-99); MEAN PLATELET VOLUME 9.3 fL (9.0-12.2); MONOCYTES # (AUTO) 0.4 10^3/uL (0.0-1.0); MONOCYTES % (AUTO) 4 % (0-12); NEUTROPHILS % (AUTO) 80 % (42-75); PLATELET COUNT 304 10^3/uL (130-400); WHITE BLOOD COUNT 10.1 10^3/uL (4.3-11.0)
[2022-11-19 10:54] LABS: ALBUMIN 3.9 GM/DL (3.2-4.5); PROTHROMBIN TIME PATIENT 22.8 SEC (12.2-14.7)
[2022-11-19 10:55] LABS: CHLORIDE 105 MMOL/L (98-107); SODIUM 140 MMOL/L (135-145)
[2022-11-19 10:56] LABS: CALCIUM 9.1 MG/DL (8.5-10.1)
[2022-11-19 10:57] LABS: GLUCOSE 115 MG/DL (70-105); TOTAL PROTEIN 7.8 GM/DL (6.4-8.2)
[2022-11-19 10:58] LABS: CARBON DIOXIDE 23 MMOL/L (21-32)
[2022-11-19 10:59] LABS: BILIRUBIN,TOTAL 0.3 MG/DL (0.1-1.0)
[2022-11-19 11:00] LABS: ALKALINE PHOSPHATASE 76 U/L (40-136)
[2022-11-19 11:01] LABS: CREATININE SERUM 0.72 MG/DL (0.60-1.30); GFR ESTIMATED 93; POTASSIUM 5.2 MMOL/L (3.6-5.0)
[2022-11-19 11:02] LABS: BUN/CREATININE RATIO 17
[2022-11-19 11:03] LABS: MAGNESIUM 1.9 MG/DL (1.6-2.4)
[2022-11-19 11:04] LABS: ALANINE AMINOTRANSFERASE 18 U/L (0-55)
--- NOTE | 2022-11-19 11:28 | ED Cough/URI ---
General Chief Complaint: Respiratory Problems Stated Complaint: DIFFICULTY BREATHING Nursing Triage Note: PATIENT REPORTS TO ED FOR SOB THAT STARTED GETTING WORSE OVER THE LAST THREE DAYS. PER PATIENT SHE HAS BEEN GETTING HER LEGS WRAPPED DUE TO LYMPHEDEMA. SHE WAS ADVISED TO MONITOR SOB FLUID CAN SHIFT INTO HER LUGS. PATIENT STATES SHE USES 2-3L O2 AT NIGHT. PATIENT AMB. TO ROOM 09 WITH SOB. PATIENT IS ALERT AND ORIENTED TO PERSON, TIME, PLACE, AND SITUATION. Source: patient Exam Limitations: no limitations (DARIEN COWAN) History of Present Illness Date Seen by Provider: Nov 19, 2022 Time Seen by Provider: 10:55 Initial Comments Our patient is a friendly 62 yo F who presents to the emergency department for respiratory difficulty. She states that she has been progressively more short of breath for the last 3 weeks but her breathing has become substantially worse for the past three days. She has a previous history of severe asthma for which she takes 3 nebulized albuterol treatments a day, uses ipratropium bromide, an albuterol inhaler, and 10 mg of daily prednisone. Since her breathing has worsened, she has noticed that her breathing treatments don't seem to help for a s long as they normally do. Any activity worsens her symptoms. In addition to shortness of breath, she notes wheezing, productive cough, increased nasal decongestion and drainage, mild nausea without vomiting, intermittent chest pain, intermittent palpitations, fatigue, and urinary frequency. She denies fever, chills, recent sick contacts, constipation, or dysuria. She uses 2-3 L of oxygen at night. She has a history of DVT and PE in the past. A couple weeks ago, the patient began seeing a lymphedema specialist and has been undergoing compressive therapy. Her last session was and she was warned that fluid could shift to her lungs as a result. Severity/Quality: productive cough, sputum Modifying Factors: Worse With Activity; Improves With Albuterol Inhaler, Improves With Albuterol Nebulizer; Worse With Coughing, Worse With Lying Down; Improves With Oxygen, Improves With Rest Associated Symptoms: chest pain/soreness (intermittent), cough, nasal congestion, nasal drainage, shortness of breath, wheezing (DARIEN COWAN) Time Seen by Provider: 10:32 (ALVA BENJAMIN MD) Allergies and Home Medications Allergies Coded Allergies: aspirin (Verified Allergy, Severe, ANAPHYLAXIS, 03/03/19) ibuprofen (Verified Allergy, Severe, ANAPHYLAXIS, 03/03/19) ketorolac (Verified Allergy, Severe, ANAPHYLAXIS, 03/03/19) tetanus and diphtheria toxoids (Unverified Allergy, Severe, ANAPHYLAXIS, 03/03/19) aloe (Verified Allergy, Mild, RASH, 03/03/19) latex (Verified Allergy, Mild, RASH, 03/03/19) OCCASIONALLY IS IRRITATING SKIN scopolamine (Verified Allergy, Mild, 03/03/19) chocolate flavor (Verified Allergy, Unknown, 10/20/21) coconut (Verified Allergy, Unknown, 10/20/21) tomato (Verified Allergy, Unknown, Rash, 10/20/21) iodine (Verified Adverse Reaction, Unknown, 03/03/19) Patient states she got dizzy, diaphoretic and saw stars. Uncoded Allergies: ALOE VERA (Allergy, Unknown, 12/23/05) SILK SUTURES (Adverse Reaction, Unknown, BODY REJECTS SUTURES, 10/07/13) Patient Home Medication List Home Medication List Reviewed: Yes (ALVA BENJAMIN MD) Acetaminophen (Tylenol Extra Strength) 500 Mg Tablet, 1,000 MG PO Q8H PRN for PAIN-MILD (1-4), (Reported) Entered as Reported by: VERNA KIM on 09/24/22 1417 Albuterol Sulfate (Albuterol Sulfate) 2.5 Mg/3 Ml (0.083 %) Vial.neb, 2.5 MG INH TID PRN for SHORTNESS OF BREATH, (Reported) Entered as Reported by: VERNA KIM on 12/25/21 1555 Albuterol Sulfate (Ventolin Hfa) 1 Puff Puff, 2 PUFF IH Q4H PRN for SHORTNESS OF BREATH, (Reported) Entered as Reported by: VERNA KIM on 12/25/21 1600 Alprazolam (Alprazolam) 1 Mg Tablet, 1 MG PO BID PRN for ANXIETY, (Reported) Entered as Reported by: JESÚS PHILLIPS on 03/07/15 1623 Calcium Carbonate/Vitamin D3 (Calcium 600 + Vit D 200 Tablet) 1 Each Tablet, 1 EACH PO BID, (Reported) Entered as Reported by: SHAMIR SALAZAR on 06/13/21 1034 Doxycycline Hyclate (Doxycycline Hyclate) 100 Mg Tablet, 100 MG PO BID Prescribed by: ALVA LAMAR on 11/19/22 1411 Furosemide (Furosemide) 40 Mg Tablet, 40 MG PO DAILY PRN for FLUID RETENTION, (Reported) Entered as Reported by: VERNA KIM on 05/15/22 0947 Hyoscyamine Sulfate (Hyoscyamine Sulfate) 0.125 Mg Tablet, 0.125 MG PO Q6H PRN for GI SPASMS, (Reported) Entered as Reported by: SHAMIR SALAZAR on 02/21/22 1511 Ipratropium [place] (Ipratropium [place]) 0.2 Mg/1 Ml Solution, 1 VIAL NEB TID, (Reported) Entered as Reported by: JESÚS PHILLIPS on 03/07/15 1640 Loratadine (Loratadine) 10 Mg Tablet, 10 MG PO DAILY, (Reported) Entered as Reported by: JESÚS PHILLIPS on 03/07/15 1623 Montelukast Sodium (Montelukast Sodium) 10 Mg Tablet, 10 MG PO HS, (Reported) Entered as Reported by: MELISSA MONTERO on 05/18/17 1103 Pantoprazole Sodium (Pantoprazole Sodium) 40 Mg Tablet.dr, 40 MG PO DAILY, (Rep orted) Entered as Reported by: JESÚS PHILLIPS on 03/07/15 162 Potassium Chloride (K-Tab ER) 10 Meq Tablet.er, 20 MEQ PO BID, (Reported) Entered as Reported by: YOSSI NELSON on 05/28/19 0952 Prednisone (Prednisone) 20 Mg Tab, 40 MG PO DAILY Prescribed by: ALVA LAMAR on 11/19/22 1411 Warfarin Sodium (Jantoven) 4 Mg Tablet, 4 MG PO NORTH,,TH,SAT @1800, (Reported) Entered as Reported by: YOSSI NELSON on 05/28/19 0952 Warfarin Sodium (Jantoven) 5 Mg Tablet, 5 MG PO MO,WE,FR @1800, (Reported) Entered as Reported by: SHAMIR SALAZAR on 07/20/19 1602 Zinc Amino Acid Chelate (Zinc) 50 Mg Tablet, 50 MG PO DAILY, (Reported) Entered as Reported by: VERNA KIM on 05/15/22 0947 Review of Systems Review of Systems Constitutional: No chills, No diaphoresis, No fever; weakness EENTM: nose congestion, throat pain (irritation) Respiratory: cough, dyspnea on exertion, phlegm, short of breath, wheezing Cardiovascular: chest pain (intermittent), edema, Hx of Intervention, palpi tations (intermittent) Gastrointestinal: no symptoms reported; No abdominal pain, No constipation; nausea; No vomiting 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: No dysuria; frequency; No pain Musculoskeletal: no symptoms reported Skin: change in color (Chronic venous stasis changes noted in lower legs bilaterally) Psychiatric/Neurological: Denies Headache; Weakness Hematologic/Lymphatic: Blood Clots Immunological/Allergic: see HPI, food allergy, mold allergy, pollen allergy (DARIEN CWOAN) Past Mjeqqve-Xtcbij-Qxpnum Hx Patient Social History Tobacco Use?: No Smoking Status: Former Smoker Substance use?: No Alcohol Use?: No Pt feels they are or have been: No (DARIEN COWAN) Immunizations Up To Date Tetanus Booster (TDap): Unknown PED Vaccines UTD: No First/Initial COVID19 Vaccinat: NO Second COVID19 Vaccination Alverto: NO Third COVID19 Vaccination Date: NO (DARIEN COWAN) Seasonal Allergies Seasonal Allergies: Yes (DARIEN COWAN) Past Medical History Surgery/Hospitalization HX: Heart cath, hysterectomy, knee scope, ablasion on both knees, hernia reapir, copd, chf, asthma Surgeries: Yes (C/S X2, KNEE SCOPE, SHOULDER SCOPE, d&C, BILAT ULNAR NERVE, VENA CAVA FILTE) Abdominal, Adenoidectomy, Section, Gallbladder, Hysterectomy, Orthopedic, Tonsillectomy, Tubal Ligation, Vascular Surgery Respiratory: Yes (O2 AT HS 2-3L/NC AND PRN--NOCTURNAL HYPOXIA; ) Asthma, Pneumonia, Chronic Bronchitis, Pulmonary Embolism, COPD Currently Using CPAP: No Currently Using BIPAP: No Cardiac: Yes (MULTIPLE DVT'S AND P.E.'S ) Chronic Edema/Swelling, Deep Vein Thrombosis, High Cholesterol, Hypertension, Peripheral Vascular Neurological: Yes Neuropathy 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: Hysterectomy, Menopausal Sexually Transmitted Disease: No HIV/AIDS: No 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: Yes Kidney Infection, Bladder Infection, Kidney Stones Gastrointestinal: Yes (MULTIPLE HERNIA REPAIRS; MULTIPLE EGD'S /COLONOSCOPIES /POLYPECTOMIES) Abdominal Hernia, Gastroesophageal Reflux, Chronic Constipation, Chronic Diarrhea, Hepatitis, Polyps, Hiatal Hernia, Irritable Bowel Musculoskeletal: Yes (MULTIPLE ORTHO SURGERIES) Arthritis Endocrine: Yes ("PRE-DIABETIC" ) HEENT: Yes (NASAL POLYPS REMOVED) Cataract Loss of Vision: Denies Hearing Impairment: Denies Cancer: No Did You Recieve Any Treatments: No Psychosocial: Yes Anxiety Integumentary: Yes (CHRONIC VENOUS STASIS DERMATITIS AND ULCERS. CELLULTITIS OF LEGS;TATTOOS ) Blood Disorders: Yes (DVT'S/PE'S; PROBABLE PROTEIN C DEFICIENCY) Adverse Reaction/Blood Tranf: No (HAS HAD BLOOD WITH NO PROBLEMS) (DARIEN COWAN) Family Medical History Alcoholism Alcoholism Arthritis Asthma 19 MOTHER Cancer G8 BROTHER G8 SISTER Cancer of colon Cancer of mouth Cardiovascular disease Cataract Cataracts Chest pain Colon cancer Completed stroke Diabetes mellitus Family history: Allergy Family history: Arthritis Family history: Asthma Family history: Cardiovascular disease Family history: Coronary thrombosis Family history: Diabetes mellitus G8 BROTHER G8 SISTER Family history: Gastrointestinal disease Family history: Hypertension Family history: Thyroid disorder Headache Hearing loss Heart disease 19 MOTHER History of - anemia History of - respiratory disease Hypercholesterolemia Hypercholesterolemia Hypertension 19 FATHER Infertile Malignant neoplasm of lung Myocardial infarction Myocardial infarction Psychotic disorder Respiratory disorder Stroke No Family History of: AIDS Abdominal aortic aneurysm Abdominal aortic aneurysm Whitley's disease Whitley's disease Alzheimer's disease Aphasia Aphasia Congenital disease Congenital heart disease Congenital heart disease Congestive heart failure Coronary thrombosis Cystic fibrosis Cystic fibrosis Deafness or hearing loss Dementia Dementia Drug abuse Dysphagia Dysphasia Family history: Alzheimer's disease Family history: Breast disease Family history: Glaucoma Family history: Osteoporosis Fibrocystic disease of breast Gastroenteritis Glaucoma Headache disorder Hereditary disease History of - disorder History of drug abuse Human immunodeficiency virus (HIV) seropositivity Infertility Kidney disease Kidney disease Neoplasm Not obtainable due to adoption Osteoporosis Parkinson's disease Parkinson's disease Prostate cancer Psychosocial problem Seizure disorder Seizure disorder Severe allergy Thyroid disease Tuberculosis Tuberculosis Visual disorder Visual impairment Cancer, COPD, Vascular Disease SOCIAL HISTORY: -ETOH--RARE USE NOW, HISTORY OF HEAVY USE/ABUSE -DRUGS-HX OF IV COCAINE USE -SMOKED 1 PPD, QUIT 2000 PAST SURGICAL HISTORY: -C-SECTIONS 1981, 1985 -SHOULDER SURGERY 2007 -LEFT KNEE SURGERY 2009 -D&C 2008 -HYSTERECTOMY/BILATERAL SALPINGO-OOPHORECTOMY 2008 -VENA CAVA FILTER 2009 -EGD 2010 -VEIN STRIPPING IN LEGS 2012 -BILATERAL ELBOW/ULNAR NERVE SURGERY 2012 -MULTIPLE HERNIA REPAIRS -MULTIPLE EGD'S AND COLONOSCOPIES AND POLYPECTOMIES -TONSILLECTOMY/ADENOIDECTOMY -CHOLECYSTECTOMY -NASAL POLYPS REMOVED -BILATERAL LEG RADIOABLATION 06/2018 ADDITIONAL PAST MEDICAL HISTORY: -MULTIPLE DVT'S AND P.E.'S -CHRONIC VENOUS STASIS ULCERATIONS -LEG CELLULITIS (DARIEN COWAN) Physical Exam Vital Signs - First Documented 11/19/22 11/19/22 10:04 10:05 Temp 36.9 Pulse 123 Resp 24 B/P (MAP) 149/91 (110) Pulse Ox 91 O2 Delivery Nasal Cannula O2 Flow Rate 2.00 FiO2 94 (ALVA BENJAMIN MD) Capillary Refill : Less Than 3 Seconds (DARIEN COWAN) Height: 5'5.00" Weight: 184lbs. 5.0oz. 83.972485bd; 34.00 BMI Method:Stated General Appearance: WD/WN, mild distress HEENT: PERRL/EOMI, normal ENT inspection Neck: non-tender, supple, normal inspection; No carotid bruit, No lymphadenopathy (R), No lymphadenopathy (L), No tender lateral, No tender midline, No thyromegaly Respiratory: chest non-tender, accessory muscle use, wheezing, expiration, inspiration Cardiovascular: normal peripheral pulses, no gallop, no JVD, no murmur; No JVD; tachycardia Gastrointestinal: normal bowel sounds, non tender, soft, no organomegaly Extremities: calf tenderness (Left-sided), pedal edema (1+ bilaterally), swelling Neurologic/Psychiatric: alert, normal mood/affect, oriented x 3 Skin: other (Chronic venous stasis changes noted in lower legs bilaterally) (DARIEN COWAN) Progress/Results/Core Measures Suspected Sepsis SIRS Temperature: Pulse: 123 Respiratory Rate: 24 Laboratory Tests 11/19/22 10:25: White Blood Count 10.1 Blood Pressure 149 /91 Mean: 110 Laboratory Tests 11/19/22 10:25: Creatinine 0.72, INR Comment 2.0H, Platelet Count 304, Total Bilirubin 0.3 (DARIEN COWAN) Results/Orders Lab Results Laboratory Tests Test 11/19/22 10:25 11/19/22 10:50 Range/Units White Blood Count 10.1 4.3-11.0 10^3/uL Red Blood Count 4.85 3.80-5.11 10^6/uL Hemoglobin 13.1 11.5-16.0 g/dL Hematocrit 42 35-52 % Mean Corpuscular Volume 86 80-99 fL Mean Corpuscular Hemoglobin 27 25-34 pg Mean Corpuscular Hemoglobin Concent 31 L 32-36 g/dL Red Cell Distribution Width 16.8 H 10.0-14.5 % Platelet Count 304 130-400 10^3/uL Mean Platelet Volume 9.3 9.0-12.2 fL Immature Granulocyte % (Auto) 0 % Neutrophils (%) (Auto) 80 H 42-75 % Lymphocytes (%) (Auto) 13 12-44 % Monocytes (%) (Auto) 4 0-12 % Eosinophils (%) (Auto) 2 0-10 % Basophils (%) (Auto) 0 0-10 % Neutrophils # (Auto) 8.0 H 1.8-7.8 10^3/uL Lymphocytes # (Auto) 1.3 1.0-4.0 10^3/uL Monocytes # (Auto) 0.4 0.0-1.0 10^3/uL Eosinophils # (Auto) 0.2 0.0-0.3 10^3/uL Basophils # (Auto) 0.0 0.0-0.1 10^3/uL Immature Granulocyte # (Auto) 0.0 0.0-0.1 10^3/uL Prothrombin Time 22.8 H 12.2-14.7 SEC INR Comment 2.0 H 0.8-1.4 Activated Partial Thromboplast Time 33 24-35 SEC Sodium Level 140 135-145 MMOL/L Potassium Level 5.2 H 3.6-5.0 MMOL/L Chloride Level 105 98-107 MMOL/L Carbon Dioxide Level 23 21-32 MMOL/L Anion Gap 12 5-14 MMOL/L Blood Urea Nitrogen 12 7-18 MG/DL Creatinine 0.72 0.60-1.30 MG/DL Estimat Glomerular Filtration Rate 93 BUN/Creatinine Ratio 17 Glucose Level 115 H 70-105 MG/DL Calcium Level 9.1 8.5-10.1 MG/DL Corrected Calcium 9.2 8.5-10.1 MG/DL Magnesium Level 1.9 1.6-2.4 MG/DL Total Bilirubin 0.3 0.1-1.0 MG/DL Aspartate Amino Transf (AST/SGOT) 31 5-34 U/L Alanine Aminotransferase (ALT/SGPT) 18 0-55 U/L Alkaline Phosphatase 76 40-136 U/L Myoglobin 56.5 10.0-92.0 NG/ML Troponin I < 0.028 <0.028 NG/ML C-Reactive Protein High Sensitivity 0.16 0.00-0.50 MG/DL B-Type Natriuretic Peptide < 10.0 <100.0 PG/ML Total Protein 7.8 6.4-8.2 GM/DL Albumin 3.9 3.2-4.5 GM/DL Influenza Type A (RT-PCR) Not Detected Not Detecte Influenza Type B (RT-PCR) Not Detected Not Detecte SARS-CoV-2 RNA (RT-PCR) Not Detected Not Detecte (ALVA BENJAMIN MD) My Orders Orders - ALVA BENJAMIN MD Ekg Tracing (11/19/22 10:22) Bnp [place] (11/19/22 10:32) Cbc With Automated Diff (11/19/22 10:32) Hs C Reactive Protein (11/19/22 10:32) Ed Iv/Invasive Line Start (11/19/22 10:32) Chest Pa/Lat (2 View) (11/19/22 10:32) Magnesium (11/19/22 10:32) Comprehensive Metabolic Panel (11/19/22 10:32) Myoglobin Serum (11/19/22 10:32) Protime With Inr (11/19/22 10:32) Partial Thromboplastin Time (11/19/22 10:32) O2 (11/19/22 10:32) Monitor-Rhythm Ecg Trace Only (11/19/22 10:32) Troponin I Levy (11/19/22 10:32) Covid 19 Inhouse Test (11/19/22 10:32) Influenza A And B By Pcr (11/19/22 10:32) Methylprednisolone Sod Succ (Solu-Medrol (11/19/22 12:45) Albuterol/Ipra Inhalation Soln (Duoneb I (11/19/22 12:45) Svn Small Volume Nebulizer (11/19/22 12:42) (ALVA BENJAMIN MD) Medications Given in ED (ALVA BENJAMIN MD) Vital Signs/I&O 11/19/22 11/19/22 11/19/22 11/19/22 10:04 10:04 10:05 13:27 Temp 36.9 Pulse 123 Resp 24 B/P (MAP) 149/91 (110) Pulse Ox 91 92 O2 Delivery Nasal Cannula Room Air Nasal Cannula Nasal Cannula O2 Flow Rate 2.00 4.00 4.00 FiO2 94 11/19/22 14:36 Temp 36.9 Pulse 105 Resp 20 B/P (MAP) 106/88 Pulse Ox 95 O2 Delivery Room Air (ALVA BENJAMIN MD) Vital Signs/I&O Capillary Refill : Less Than 3 Seconds (DARIEN COWAN) Blood Pressure Mean: 110 Progress Note : Progress Note This patient and her medical history is well-known to me from prior visits. Her triage notes and vital signs were reviewed and initial work-up initiated at 1 032. Patient was interviewed and examined by medical student at 1055. Patient was stable and in no distress. Report was received. On my examination I found a patient who continues to wheeze despite using a nebulizer treatment at home. Her work-up was grossly on remarkable. Chest x-ray was clear with no evidence of pneumonia. Radiologist's report was reviewed. Labs were reviewed and interpreted in their entirety by me. CBC, CMP, BNP, CRP, and troponin were all grossly unremarkable. Swabs for influenza and COVID-19 were negative. EKG demonstrated normal sinus rhythm with no evidence of ischemia by my interpretation. INR was appropriate at 2.0. Patient received an additional DuoNeb treatment which greatly improved her wheezing. One of her primary issues was nasal congestion which seems to be allergy related. We discussed strategies for improving treatment of allergy symptoms and sinus congestion. A brief course of Afrin was suggested, not to exceed 3 days in duration. Solu-Medrol was administered by IV route. Patient was prescribed a steroid burst with prednisone as well as doxycycline for treatment of COPD exacerbation and possible sinusitis. (ALVA BENJAMIN MD) ECG Initial ECG Impression Date: Nov 19, 2022 Initial ECG Impression Time: 10:29 Initial ECG Rate: 84 Comment Sinus rhythm with variable rate. No ST elevation or depression to suggest ischemia. No abnormal intervals or axis deviation. (ALVA BENJAMIN MD) Diagnostic Imaging Diagonstic Imaging: Xray Plain Films/CT/US/NM/MRI: chest Comments NAME: SUJEY FELIZ [facility] REC#: [id number] PT STATUS: DEP ER : [id number] PHYSICIAN: ALVA BENJAMIN MD ADMIT DATE: 11/19/22/ER Signed Date of Exam:11/19/22 CHEST PA/LAT (2 VIEW) Indication: Shortness of breath and chest pressure. Comparison is made with prior exam of 08/09/2022 FINDINGS: The heart size is normal. There is some air trapping compatible COPD. No pleural effusion, pneumothorax or pneumonia. Mediastinum is unremarkable. IMPRESSION: No acute cardiopulmonary abnormality. COPD Dictated by: Dictated on workstation # [id number] Dict: 11/19/22 1158 Trans: 11/19/22 1640 [facility] [id number] Interpreted by: ADAM ANDERS MD Electronically signed by: ADAM ANDERS MD 11/19/22 1640 (ALVA BENJAMIN MD) Departure Impression Primary Impression: COPD exacerbation Additional Impressions: Seasonal allergies Nasal congestion Disposition: HOME, SELF-CARE Condition: Improved Departure-Patient Inst. Decision time for Depature: 14:08 (ALVA BENJAMIN MD) Referrals: LEAH WOLF MD (PCP/Family) Primary Care Physician Patient Instructions: Chronic Obstructive Pulmonary Disease (COPD) (DC), Seasonal Allergies ED Add. Discharge Instructions: You may use your DuoNeb (albuterol plus ipratropium) nebulizer treatment every 6 hours as needed for wheezing and shortness of breath. You may use 2 puffs on your inhaler every couple of hours between your nebulizer treatments if needed. You may start your prednisone prescription this evening or in the morning. Start your antibiotic today when you pick it up. For severe nasal congestion, you may use Afrin purchased [id number]. Use per package instructions. Do not use more than 3 days as this may cause dependence on the medication and severe rebound congestion when it is stopped. Follow-up with Dr. Wolf or your site monitor with a phone call in a day or two. Return to care if you have worsening symptoms despite following these instructions. All discharge instructions reviewed with patient and/or family. Voiced understanding. Scripts Prednisone (Prednisone) 20 Mg Tab 40 MG PO DAILY, #8 TAB 0 Refills Prov: ALVA BENJAMIN MD 11/19/22 Doxycycline Hyclate (Doxycycline Hyclate) 100 Mg Tablet 100 MG PO BID, #20 TAB 0 Refills Prov: ALVA BENJAMIN MD 11/19/22 Medical Student Attestation and Attending Note: I have personally interviewed and examined this patient along with Darien Cowan MS4. I have reviewed student documentation including history, physical, and assessments. I agree with the documentation except where otherwise noted. Exam: General: Alert, oriented, no acute distress, well developed HEENT: Normocephalic and atraumatic, TMs normal, significant nasal congestion Heart: Regular rate and rhythm without murmur Lungs: wheezing bilaterally with normal effort, no crackles Neuropsych: Alert, oriented, no focal deficits Skin: Warm and dry without rashes (ALVA BENJAMIN MD) Copy Copies To 1: LEAH WOLF MD, JOSEPH D Nov 19, 2022 11:28 ALVA BENJAMIN MD Nov 19, 2022 13:23
--- NOTE | 2022-11-19 12:01 | Diagnostic Imaging Report ---
Indication: Shortness of breath and chest pressure. Comparison is made with prior exam of 08/09/2022 FINDINGS: The heart size is normal. There is some air trapping compatible COPD. No pleural effusion, pneumothorax or pneumonia. Mediastinum is unremarkable. IMPRESSION: No acute cardiopulmonary abnormality. COPD Dictated by: Dictated on workstation # [id number]
[2022-11-19] MEDS ORDERED: methylPREDNISolone 125 MG (Solu-MEDROL) VIAL IVP ONE (12:45)
[2022-11-19] MEDS ORDERED: RT-ALBUTEROL/IPRATROPIUM 3 ML (DUONEB) VIAL INH ONE (12:45)
[2022-11-19] MEDS ORDERED: PRD20T PO (14:11)
[2022-11-19] MEDS ORDERED: DOXY100T2 PO (14:11)
[2022-11-19 14:36] VITALS: BP 106/88
== END 2022-11-19 14:39 | disposition home or self-care (01) ==
LOC: EDUNIT# 10:00 → ER 10:02
DX: J44.1 Chronic obstructive pulmonary disease with (acute) exacerbation (principal); J30.2 Other seasonal allergic rhinitis; F17.210 Nicotine dependence, cigarettes, uncomplicated; Z99.81 Dependence on supplemental oxygen; Z79.51 Long term (current) use of inhaled steroids; Z91.040 Latex allergy status; Z28.310 Unvaccinated for COVID-19; Z20.822 Contact with and (suspected) exposure to COVID-19
CPT/HCPCS: 36415; 71046; 80053; 83735; 83874; 83880; 84484; 85025; 85610; 85730; 86141; 87636; 93005; 93041; 94640

== ENCOUNTER → 2022-12-11 | Outpatient (CLI) | payer MEDICAID ==
[~2022-12-11] MED LIST changes: +POTA-185 PO; -POTA10TA PO; +RT-ALBUTEROL SULF 2.5 MG/3 ML PRE-MIX VIAL INH ONE
== END ==
LOC: RT 09:15
PROVIDERS: ATTEND Internal Medicine Critical Care Medicine
DX: J43.9 Emphysema, unspecified (principal); J45.50 Severe persistent asthma, uncomplicated; Z87.891 Personal history of nicotine dependence
CPT/HCPCS: 94060; 94726; 94729

== ENCOUNTER 2023-02-10 08:00 | Outpatient (RCR) | payer MEDICAID ==
[~2023-02-10 08:00] MED LIST changes: -RT-ALBUTEROL SULF 2.5 MG/3 ML PRE-MIX VIAL INH ONE
[2023-02-18 11:07] LABS: INR 1.6 (0.8-1.4); PROTHROMBIN TIME PATIENT 18.6 SEC (12.2-14.7)
== END 2023-03-12 ==
LOC: LAB 08:00
PROVIDERS: ATTEND Family Medicine
DX: Z86.718 Personal history of other venous thrombosis and embolism (principal); Z86.711 Personal history of pulmonary embolism
CPT/HCPCS: 36415; 85610

== ENCOUNTER → 2023-02-18 | Outpatient (CLI) | payer MEDICAID | LOC: LAB 10:25 | PROVIDERS: ATTEND Family Medicine | DX: K52.9 Noninfective gastroenteritis and colitis, unspecified (principal) | CPT/HCPCS: 36415; 82784; 83516; 83520 ==

== ENCOUNTER 2023-03-08 21:58 | Emergency (ER) | payer MEDICAID ==
[~2023-03-08] VITALS: Ht 165 cm; Wt 92.0 kg
[2023-03-08] MEDS ORDERED: PIPERACILLIN/Tazobactam 4.5 GM in NS (IVPB) 100 ML 100 ML IV ONE (22:30)
--- NOTE | 2023-03-08 22:32 | ED Integumentary General ---
General Chief Complaint: Skin/Wound Problems Stated Complaint: SORE ON LEFT LEG Nursing Triage Note: pt states she has a wound on her left lower leg that she noticed about 2 weeks ago that she was trying to "doctor up" herself at home, was seen at Dr Wolf's office on saturday and given abx, recieved a call from his office today and was told it was positive for MRSA and they called in levaquin for her which she has not started yet Source: patient, old records History of Present Illness Date Seen by Provider: Mar 08, 2023 Time Seen by Provider: 22:15 Initial Comments PT ARRIVES VIA POV FROM HOME C/O WOUND TO LEFT CALF AREA X 2 WEEKS PT WITH EXTENSIVE CHRONIC VENOUS STASIS CHANGES, CHRONIC STASIS DERMATITIS, FREQUENT STASIS ULCERS AND LEG CELLULITIS SHE SAW DR. WOLF ON Saturday03/05/23 FOR THIS PROBLEM AND WOUND WAS CULTURED AND WAS INITIALLY PLACED ON CEFTIN PT STATES THEY CALLED HER THIS MORNING AND SHE WAS TOLD THAT IT WAS MRSA AND NEW RX FOR LEVAQUIN WAS CALLED IN AND PT PICKED IT UP TODAY, BUT DID NOT START IT YET--STATES SHE WAS GOING TO START IT IN THE MORNING SHE STATES SHE CHECKS HER TEMPERATURE EVERY MORNING AND IT WAS 99 ON SATURDAY, NO FEVER SINCE THEN SHE C/O PAIN, REDNESS AND SWELLING TO HER LEFT LOWER LEG SHE HAS NOT TAKEN ANYTHING FOR PAIN PT WITH HX OF MULTIPLE DVT'S AND P.E.'S AND IS ON [employer] COUMADIN. NO MISSED DOSES OF MEDICATIONS OR CHANGE IN DOSE PCP: DR. WOLF Allergies and Home Medications Allergies Coded Allergies: aspirin (Verified Allergy, Severe, ANAPHYLAXIS, 03/03/19) ibuprofen (Verified Allergy, Severe, ANAPHYLAXIS, 03/03/19) ketorolac (Verified Allergy, Severe, ANAPHYLAXIS, 03/03/19) tetanus and diphtheria toxoids (Unverified Allergy, Severe, ANAPHYLAXIS, 03/03/19) aloe (Verified Allergy, Mild, RASH, 03/03/19) latex (Verified Allergy, Mild, RASH, 03/03/19) OCCASIONALLY IS IRRITATING SKIN scopolamine (Verified Allergy, Mild, 03/03/19) chocolate flavor (Verified Allergy, Unknown, 10/20/21) coconut (Verified Allergy, Unknown, 10/20/21) tomato (Verified Allergy, Unknown, Rash, 10/20/21) iodine (Verified Adverse Reaction, Unknown, 03/03/19) Patient states she got dizzy, diaphoretic and saw stars. Uncoded Allergies: ALOE VERA (Allergy, Unknown, 12/23/05) SILK SUTURES (Adverse Reaction, Unknown, BODY REJECTS SUTURES, 10/07/13) Patient Home Medication List Home Medication List Reviewed: Yes Acetaminophen (Tylenol Extra Strength) 500 Mg Tablet, 1,000 MG PO Q8H PRN for PAIN-MILD (1-4), (Reported) Entered as Reported by: VERNA KIM on 09/24/22 1417 Albuterol Sulfate (Albuterol Sulfate) 2.5 Mg/3 Ml (0.083 %) Vial.neb, 2.5 MG INH TID PRN for SHORTNESS OF BREATH, (Reported) Entered as Reported by: VERNA KIM on 12/25/21 1555 Albuterol Sulfate (Ventolin Hfa) 1 Puff Puff, 2 PUFF IH Q4H PRN for SHORTNESS OF BREATH, (Reported) Entered as Reported by: VERNA KIM on 12/25/21 1600 Alprazolam (Alprazolam) 1 Mg Tablet, 1 MG PO BID PRN for ANXIETY, (Reported) Entered as Reported by: JESÚS PHILLIPS on 03/07/15 1623 Calcium Carbonate/Vitamin D3 (Calcium 600 + Vit D 200 Tablet) 1 Each Tablet, 1 EACH PO BID, (Reported) Entered as Reported by: SHAMIR SALAZAR on 06/13/21 1034 Doxycycline Hyclate (Doxycycline Hyclate) 100 Mg Tablet, 100 MG PO BID Prescribed by: ALVA LAMAR on 11/19/22 1411 Furosemide (Furosemide) 40 Mg Tablet, 40 MG PO DAILY PRN for FLUID RETENTION, (Reported) Entered as Reported by: VERNA KIM on 05/15/22 0947 Hyoscyamine Sulfate (Hyoscyamine Sulfate) 0.125 Mg Tablet, 0.125 MG PO Q6H PRN for GI SPASMS, (Reported) Entered as Reported by: SHAMIR SALAZAR on 02/21/22 1511 Ipratropium [place] (Ipratropium [place]) 0.2 Mg/1 Ml Solution, 1 VIAL NEB TID, (Reported) Entered as Reported by: JESÚS PHILLIPS on 03/07/15 1640 Loratadine (Loratadine) 10 Mg Tablet, 10 MG PO DAILY, (Reported) Entered as Reported by: JESÚS PHILLIPS on 03/07/15 1623 Montelukast Sodium (Montelukast Sodium) 10 Mg Tablet, 10 MG PO HS, (Reported) Entered as Reported by: MELISSA MONTERO on 05/18/17 1103 Pantoprazole Sodium (Pantoprazole Sodium) 40 Mg Tablet.dr, 40 MG PO DAILY, (Reported) Entered as Reported by: JESÚS PHILLIPS on 03/07/15 1623 Potassium Chloride (K-Tab ER) 10 Meq Tablet.er, 20 MEQ PO BID, (Reported) Entered as Reported by: YOSSI NELSON on 05/28/19 0952 Prednisone (Prednisone) 20 Mg Tab, 40 MG PO DAILY Prescribed by: ALVA LAMAR on 11/19/22 1411 Warfarin Sodium ([place]) 4 Mg Tablet, 4 MG PO NORTH,,TH,SAT @1800, (Reported) Entered as Reported by: YOSSI NELSON on 05/28/19 0952 Warfarin Sodium ([place]) 5 Mg Tablet, 5 MG PO MO,WE,FR @1800, (Reported) Entered as Reported by: SHAMIR SALAZAR on 07/20/19 1602 Zinc Amino Acid Chelate (Zinc) 50 Mg Tablet, 50 MG PO DAILY, (Reported) Entered as Reported by: VERNA KIM on 05/15/22 0947 Review of Systems Review of Systems Constitutional: see HPI Respiratory: no symptoms reported Cardiovascular: no symptoms reported Musculoskeletal: see HPI Skin: see HPI Psychiatric/Neurological: No Symptoms Reported Past [id number] Hx Patient Social History Tobacco Use?: No Substance use?: No Alcohol Use?: No Immunizations Up To Date Tetanus Booster (TDap): Unknown PED Vaccines UTD: No First/Initial COVID19 Vaccinat: NO Second COVID19 Vaccination Alverto: NO Third COVID19 Vaccination Date: NO Seasonal Allergies Seasonal Allergies: Yes Past Medical History Surgery/Hospitalization HX: Heart cath, hysterectomy, knee scope, ablasion on both knees, hernia reapir, copd, chf, asthma Surgeries: Yes (C/S X2, KNEE SCOPE, SHOULDER SCOPE, d&C, BILAT ULNAR NERVE, VENA CAVA FILTE) Abdominal, Adenoidectomy, Section, Gallbladder, Hysterectomy, Orthopedic, Tonsillectomy, Tubal Ligation, Vascular Surgery Respiratory: Yes (O2 AT HS 2-3L/NC AND PRN--NOCTURNAL HYPOXIA; ) Asthma, Pneumonia, Chronic Bronchitis, Pulmonary Embolism, COPD Currently Using CPAP: No Currently Using BIPAP: No Cardiac: Yes (MULTIPLE DVT'S AND P.E.'S ) Chronic Edema/Swelling, Deep Vein Thrombosis, High Cholesterol, Hypertension, Peripheral Vascular Neurological: Yes Neuropathy 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, 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 Sexually Transmitted Disease: No HIV/AIDS: No 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: Yes Kidney Infection, Bladder Infection, Kidney Stones Gastrointestinal: Yes (MULTIPLE HERNIA REPAIRS; MULTIPLE EGD'S /COLONOSCOPIES/POLYPECTOMIES) Abdominal Hernia, Gastroesophageal Reflux, Chronic Constipation, Chronic Diarrhea, Hepatitis, Polyps, Hiatal Hernia, Irritable Bowel Musculoskeletal: Yes (MULTIPLE ORTHO SURGERIES) Arthritis Endocrine: Yes ("PRE-DIABETIC" ) HEENT: Yes (NASAL POLYPS REMOVED) Cataract Loss of Vision: Denies Hearing Impairment: Denies Cancer: No Did You Recieve Any Treatments: No Psychosocial: Yes Anxiety Integumentary: Yes (CHRONIC VENOUS STASIS DERMATITIS AND ULCERS. CELLULTITIS OF LEGS;TATTOOS ) Blood Disorders: Yes (DVT'S/PE'S; PROBABLE PROTEIN C DEFICIENCY) Adverse Reaction/Blood Tranf: No (HAS HAD BLOOD WITH NO PROBLEMS) Family Medical History Alcoholism Alcoholism Arthritis Asthma 19 MOTHER Cancer G8 BROTHER G8 SISTER Cancer of colon Cancer of mouth Cardiovascular disease Cataract Cataracts Chest pain Colon cancer Completed stroke Diabetes mellitus Family history: Allergy Family history: Arthritis Family history: Asthma Family history: Cardiovascular disease Family history: Coronary thrombosis Family history: Diabetes mellitus G8 BROTHER G8 SISTER Family history: Gastrointestinal disease Family history: Hypertension Family history: Thyroid disorder Headache Hearing loss Heart disease 19 MOTHER History of - anemia History of - respiratory disease Hypercholesterolemia Hypercholesterolemia Hypertension 19 FATHER Infertile Malignant neoplasm of lung Myocardial infarction Myocardial infarction Psychotic disorder Respiratory disorder Stroke No Family History of: AIDS Abdominal aortic aneurysm Abdominal aortic aneurysm Fernando's disease Fernando's disease Alzheimer's disease Aphasia Aphasia Congenital disease Congenital heart disease Congenital heart disease Congestive heart failure Coronary thrombosis Cystic fibrosis Cystic fibrosis Deafness or hearing loss Dementia Dementia Drug abuse Dysphagia Dysphasia Family history: Alzheimer's disease Family history: Breast disease Family history: Glaucoma Family history: Osteoporosis Fibrocystic disease of breast Gastroenteritis Glaucoma Headache disorder Hereditary disease History of - disorder History of drug abuse Human immunodeficiency virus (HIV) seropositivity Infertility Kidney disease Kidney disease Neoplasm Not obtainable due to adoption Osteoporosis Parkinson's disease Parkinson's disease Prostate cancer Psychosocial problem Seizure disorder Seizure disorder Severe allergy Thyroid disease Tuberculosis Tuberculosis Visual disorder Visual impairment Cancer, COPD, Vascular Disease SOCIAL HISTORY: -ETOH--RARE USE NOW, HISTORY OF HEAVY USE/ABUSE -DRUGS-HX OF IV COCAINE USE -SMOKED 1 PPD, QUIT 2000 PAST SURGICAL HISTORY: -C-SECTIONS 1981, 1985 -SHOULDER SURGERY 2007 -LEFT KNEE SURGERY 2008 -D&C 2008 -HYSTERECTOMY/BILATERAL SALPINGO-OOPHORECTOMY 2008 -VENA CAVA FILTER 2009 -EGD 2010 -VEIN STRIPPING IN LEGS 2012 -BILATERAL ELBOW/ULNAR NERVE SURGERY 2012 -MULTIPLE HERNIA REPAIRS -MULTIPLE EGD'S AND COLONOSCOPIES AND POLYPECTOMIES -TONSILLECTOMY/ADENOIDECTOMY -CHOLECYSTECTOMY -NASAL POLYPS REMOVED -BILATERAL LEG RADIOABLATION 06/2018 ADDITIONAL PAST MEDICAL HISTORY: -MULTIPLE DVT'S AND P.E.'S -CHRONIC VENOUS STASIS ULCERATIONS -LEG CELLULITIS Physical Exam Vital Signs Vital Signs - First Documented 03/08/23 22:10 Temp 36.5 Pulse 111 Resp 18 B/P (MAP) 148/87 (107) Pulse Ox 92 Capillary Refill : General Appearance: WD/WN, no apparent distress HEENT: other (NASAL CONGESTION) Cardiovascular: regular rate, rhythm, no murmur Respiratory: normal breath sounds, no respiratory distress, no accessory muscle use Extremities: normal range of motion, normal capillary refill, other (EXTENSIVE CHRONIC VENOUS STASIS CHANGES TO BOTH LOWER LEGS--LEFT > RIGHT; LEFT CALF WITH QUARTER-SIZED SHALLOW ULCER WITH SEROUS DRAINAGE, TENDERNESS AROUND THE ULCER. LEFT LOWER LEG WITH WARMTH, MILD DIFFUSE ERYTHEMA FROM ANKLE TO JUST BELOW THE KNEE. MOTOR/SENSORY/VASCULAR INTACT. ) Neurologic/Psychiatric: pest locator II-XII nml as tested, no motor/sensory deficits, alert, normal mood/affect, oriented x 3 Skin: normal color, warm/dry, other ( ABOVE) Progress/Results/Core Measures Results/Orders Lab Results Laboratory Tests Test 03/08/23 22:41 Range/Units White Blood Count 6.5 4.3-11.0 10^3/uL Red Blood Count 4.50 3.80-5.11 10^6/uL Hemoglobin 12.5 11.5-16.0 g/dL Hematocrit 39 35-52 % Mean Corpuscular Volume 88 80-99 fL Mean Corpuscular Hemoglobin 28 25-34 pg Mean Corpuscular Hemoglobin Concent 32 32-36 g/dL Red Cell Distribution Width 15.9 H 10.0-14.5 % Platelet Count 240 130-400 10^3/uL Mean Platelet Volume 8.7 L 9.0-12.2 fL Immature Granulocyte % (Auto) 0 % Neutrophils (%) (Auto) 55 42-75 % Lymphocytes (%) (Auto) 30 12-44 % Monocytes (%) (Auto) 8 0-12 % Eosinophils (%) (Auto) 6 0-10 % Basophils (%) (Auto) 1 0-10 % Neutrophils # (Auto) 3.6 1.8-7.8 10^3/uL Lymphocytes # (Auto) 2.0 1.0-4.0 10^3/uL Monocytes # (Auto) 0.6 0.0-1.0 10^3/uL Eosinophils # (Auto) 0.4 H 0.0-0.3 10^3/uL Basophils # (Auto) 0.0 0.0-0.1 10^3/uL Immature Granulocyte # (Auto) 0.0 0.0-0.1 10^3/uL Erythrocyte Sedimentation Rate 47 H 0-30 MM/HR Prothrombin Time 26.7 H 12.2-14.7 SEC INR Comment 2.3 H 0.8-1.4 Activated Partial Thromboplast Time 35 24-35 SEC Sodium Level 141 135-145 MMOL/L Potassium Level 3.8 3.6-5.0 MMOL/L Chloride Level 107 98-107 MMOL/L Carbon Dioxide Level 23 21-32 MMOL/L Anion Gap 11 5-14 MMOL/L Blood Urea Nitrogen 8 7-18 MG/DL Creatinine 0.72 0.60-1.30 MG/DL Estimat Glomerular Filtration Rate 93 BUN/Creatinine Ratio 11 Glucose Level 105 70-105 MG/DL Lactic Acid Level 1.39 0.50-2.00 MMOL/L Calcium Level 8.8 8.5-10.1 MG/DL Corrected Calcium 9.1 8.5-10.1 MG/DL Magnesium Level 1.8 1.6-2.4 MG/DL Total Bilirubin 0.3 0.1-1.0 MG/DL Aspartate Amino Transf (AST/SGOT) 14 5-34 U/L Alanine Aminotransferase (ALT/SGPT) 14 0-55 U/L Alkaline Phosphatase 75 40-136 U/L C-Reactive Protein High Sensitivity 0.21 0.00-0.50 MG/DL B-Type Natriuretic Peptide < 10.0 <100.0 PG/ML Total Protein 7.5 6.4-8.2 GM/DL Albumin 3.6 3.2-4.5 GM/DL Micro Results Microbiology 03/08/23 Blood Culture - Preliminary, Resulted 03/08/23 Blood Culture - Preliminary, Resulted My Orders Orders - STEPHANIE ECKERT DO Ed Iv/Invasive Line Start (03/08/23 22:25) Monitor-Rhythm Ecg Trace Only (03/08/23:) Bnp [place] (03/08/23:) Cbc And Automated Diff (03/08/23:) Comprehensive Metabolic Panel (03/08/23:) Hs C Reactive Protein (03/08/23:) Lactic Acid Analyzer (03/08/23 22:) Magnesium (03/08/23 22:) Protime With Inr (03/08/23:) Partial Thromboplastin Time (03/08/23:) Blood Culture (03/08/23:) Erythrocyte Sedimentation Rate (03/08/23 22:25) Ed Iv/Invasive Line Start (03/08/23 22:25) Vital Signs Adult Sepsis Patie Q15M (03/08/23 22:25) Remove Rings In Anticipation O (03/08/23 22:25) Piperacillin/Tazobactam (Piperacillin/Ta (03/08/23 22:30) Vancomycin Injection (Vancomycin Injecti (03/08/23 22:30) Rx-Mupirocin 2% Oint (Rx-Bactroban) (03/08/23 23:36) Wound Dressing-Ed (03/08/23 23:36) Mupirocin Ointment (Mupirocin Ointment) (03/09/23 02:12) Medications Given in ED Vital Signs/I&O 03/08/23 03/09/23 22:10 04:15 Temp 36.5 Pulse 111 108 Resp 18 22 B/P (MAP) 148/87 (107) 117/78 Pulse Ox 92 91 Blood Pressure Mean: 107 Progress Progress Note : Progress Note VITALS ON ARRIVAL: TEMP 36.5=97.7, HR 111, RR 18, BP 148/87, O2 SAT 92% ON ROOM AIR ( NORMAL FOR PT, WITH COPD) SEPSIS PROTOCOL INITIATED GIVEN: -IV FLUIDS -ZOSYN + VANCOMYCIN LABS: -CBC NORMAL WITH WBC 6.5 -CMP -SED RATE -LACTIC ACID -CRP -PT/PTT/INR BLOOD CULTURES PENDING FOCUS EXAM AT 2335 EXAM UNCHANGED, EXCEPT HR DOWN DOES NOT MEET SEPSIS CRITERIA OR ADMIT CRITERIA AT THIS TIME UNEVENTFUL ER STAY DISCUSSED TEST RESULTS, ANTICIPATED COURSE, SYMPTOMATIC TREATMENT, MEDICATIONS, NEED FOR FOLLOW UP AND RETURN PRECAUTIONS REVIEWED PRIOR RECORDS, INCLUDING ER VISITS, ADMITS/H&P'S/CONSULTS/DISCHARGE SUMMARIES, TESTS/PROCEDURES Departure Impression Primary Impression: Cellulitis of left lower extremity without foot Additional Impressions: Venous stasis ulcer Venous stasis dermatitis of both lower extremities MRSA (methicillin resistant Staphylococcus aureus) infection Disposition: HOME, SELF-CARE Condition: Stable Departure-Patient Inst. Decision time for Depature: 23:37 Referrals: LEAH WOLF MD (PCP/Family) Primary Care Physician Patient Instructions: Cellulitis (Skin Infection), Adult ED, MRSA (DC) Add. Discharge Instructions: TAKE LEVAQUIN PRESCRIBED CLEAN WOUND TWICE A DAY WITH HIBICLENS AND APPLY BACTROBAN TWICE A DAY, AND APPLY FRESH DRESSING TWICE A DAY CONTINUE YOUR REGULAR MEDICATIONS PRESCRIBED FOLLOW UP WITH DR. WOLF ON SATURDAY FOR FURTHER CARE, RETURN TO ER IF YOUR SYMPTOMS WORSEN All discharge instructions reviewed with patient and/or family. Voiced understanding. STEPHANIE ECKERT DO Mar 08, 2023 22:32
[2023-03-08 22:57] LABS: BASOPHILS % (AUTO) 1 % (0-10); EOSINOPHILS # (AUTO) 0.4 10^3/uL (0.0-0.3); EOSINOPHILS % (AUTO) 6 % (0-10); HEMATOCRIT 39 % (35-52); HEMOGLOBIN 12.5 g/dL (11.5-16.0); LYMPHOCYTES % (AUTO) 30 % (12-44); MEAN CORPUSCULAR HEMOGLOBIN 28 pg (25-34); MEAN CORPUSCULAR HGB CONC 32 g/dL (32-36); MEAN CORPUSCULAR VOLUME 88 fL (80-99); MEAN PLATELET VOLUME 8.7 fL (9.0-12.2); MONOCYTES # (AUTO) 0.6 10^3/uL (0.0-1.0); MONOCYTES % (AUTO) 8 % (0-12); NEUTROPHILS # (AUTO) 3.6 10^3/uL (1.8-7.8); NEUTROPHILS % (AUTO) 55 % (42-75); PLATELET COUNT 240 10^3/uL (130-400); WHITE BLOOD COUNT 6.5 10^3/uL (4.3-11.0)
[2023-03-08 23:09] LABS: INR 2.3 (0.8-1.4); PROTHROMBIN TIME PATIENT 26.7 SEC (12.2-14.7)
[2023-03-08 23:11] LABS: ALBUMIN 3.6 GM/DL (3.2-4.5); POTASSIUM 3.8 MMOL/L (3.6-5.0)
[2023-03-08 23:13] LABS: CALCIUM 8.8 MG/DL (8.5-10.1)
[2023-03-08 23:14] LABS: TOTAL PROTEIN 7.5 GM/DL (6.4-8.2)
[2023-03-08 23:16] LABS: BILIRUBIN,TOTAL 0.3 MG/DL (0.1-1.0)
[2023-03-08 23:18] LABS: CREATININE SERUM 0.72 MG/DL (0.60-1.30)
[2023-03-08 23:19] LABS: ERYTHROCYTE SEDIMENTATION RATE 47 MM/HR (0-30)
[2023-03-08 23:20] LABS: MAGNESIUM 1.8 MG/DL (1.6-2.4)
[2023-03-08] MEDS ORDERED: RX-MUPIROCIN (BACTROBAN) 2% OINT 22 GM TUBE TOP STA (23:36)
[2023-03-09] MEDS: VANCOMYCIN INJECTION 1,000 MG in NS (IVPB) 250 ML 250 ML IV SCH ×3 (01:36)
[2023-03-09] MEDS ORDERED: MUPIROCIN 2% OINTMENT 22 GM TUBE ONE (02:12)
[2023-03-09 04:15] VITALS: BP 117/78
== END 2023-03-09 04:20 | disposition home or self-care (01) ==
LOC: EDUNIT# 21:58 → ER 22:00
DX: L03.116 Cellulitis of left lower limb (principal); I87.8 Other specified disorders of veins; B95.62 Methicillin resistant Staphylococcus aureus infection as the cause of diseases classified elsewhere; J42 Unspecified chronic bronchitis; Z99.81 Dependence on supplemental oxygen; Z87.891 Personal history of nicotine dependence; Z91.040 Latex allergy status; Z86.718 Personal history of other venous thrombosis and embolism; Z86.711 Personal history of pulmonary embolism; Z79.01 Long term (current) use of anticoagulants
CPT/HCPCS: 36415; 80053; 83605; 83735; 83880; 85025; 85610; 85652; 85730; 86141; 87040; 96374; 96375

== ENCOUNTER 2023-03-20 21:53 | Emergency (ER) | payer MEDICAID ==
[~2023-03-20] VITALS: Ht 165.1 cm; Wt 90.3 kg
--- NOTE | 2023-03-20 22:42 | ED General ---
General Chief Complaint: General Problems/Pain Stated Complaint: COUGH/SORES ON LEFT LEG Nursing Triage Note: PT AMB TO RM 7 W C/O COUGH/CONGESTION/SOA ONGOING FOR WEEKS, WORSE THE PAST 2 DAYS. PT SPO2 87% ON RA, REPORTS SHE WAS USING HER HOME O2 LEATHER SEASONER. C/O LLE PAIN R/T WOUND, RECENTLY DX W MRSA. PT A&OX4. Source of Information: Patient Exam Limitations: No Limitations History of Present Illness Date Seen by Provider: Mar 20, 2023 Time Seen by Provider: 22:25 Initial Comments 62-year-old female with history of asthma presents to the emergency department today for cough for 3 to 4 weeks. She states it is intermittently productive of sputum. She denies any fevers or chills but is getting coughing fits that cause her to feel short of breath. She also complains of some wounds to her left lower extremity. She states she was diagnosed with MRSA several weeks ago. Initially the wounds were not cultured and she was on Keflex however once identified as MRSA they switched her to Levaquin. She has finished this course and feels like the wounds are improving. She has seen wound care and has been using Bactroban cream to the area. She denies any drainage from the wounds. She does have chronic venous insufficiency, venous stasis which complicates things. All other systems reviewed and negative except documented per HPI. Voice recognition software was used to help create this chart Allergies and Home Medications Allergies Coded Allergies: aspirin (Verified Allergy, Severe, ANAPHYLAXIS, 03/03/19) ibuprofen (Verified Allergy, Severe, ANAPHYLAXIS, 03/03/19) ketorolac (Verified Allergy, Severe, ANAPHYLAXIS, 03/03/19) tetanus and diphtheria toxoids (Unverified Allergy, Severe, ANAPHYLAXIS, 03/03/19) aloe (Verified Allergy, Mild, RASH, 03/03/19) latex (Verified Allergy, Mild, RASH, 03/03/19) OCCASIONALLY IS IRRITATING SKIN scopolamine (Verified Allergy, Mild, 03/03/19) chocolate flavor (Verified Allergy, Unknown, 10/20/21) coconut (Verified Allergy, Unknown, 10/20/21) tomato (Verified Allergy, Unknown, Rash, 10/20/21) iodine (Verified Adverse Reaction, Unknown, 03/03/19) Patient states she got dizzy, diaphoretic and saw stars. Uncoded Allergies: ALOE VERA (Allergy, Unknown, 12/23/05) SILK SUTURES (Adverse Reaction, Unknown, BODY REJECTS SUTURES, 10/07/13) Patient Home Medication List Home Medication List Reviewed: Yes Acetaminophen (Tylenol Extra Strength) 500 Mg Tablet, 1,000 MG PO Q8H PRN for PAIN-MILD (1-4), (Reported) Entered as Reported by: VERNA KMI on 09/24/22 1417 Albuterol Sulfate (Albuterol Sulfate) 2.5 Mg/3 Ml (0.083 %) Vial.neb, 2.5 MG INH TID PRN for SHORTNESS OF BREATH, (Reported) Entered as Reported by: VERNA KIM on 12/25/21 1555 Albuterol Sulfate (Ventolin Hfa) 1 Puff Puff, 2 PUFF IH Q4H PRN for SHORTNESS OF BREATH, (Reported) Entered as Reported by: VERNA KIM on 12/25/21 1600 Alprazolam (Alprazolam) 1 Mg Tablet, 1 MG PO BID PRN for ANXIETY, (Reported) Entered as Reported by: JESÚS PHILLIPS on 03/07/15 1623 Calcium Carbonate/Vitamin D3 (Calcium 600 + Vit D 200 Tablet) 1 Each Tablet, 1 EACH PO BID, (Reported) Entered as Reported by: SHAMIR SALAZAR on 06/13/21 1034 Doxycycline Hyclate (Doxycycline Hyclate) 100 Mg Tablet, 100 MG PO BID Prescribed by: ALVA LAMAR on 11/19/22 1411 Furosemide (Furosemide) 40 Mg Tablet, 40 MG PO DAILY PRN for FLUID RETENTION, (R eported) Entered as Reported by: VERNA KIM on 05/15/22 0947 Hyoscyamine Sulfate (Hyoscyamine Sulfate) 0.125 Mg Tablet, 0.125 MG PO Q6H PRN for GI SPASMS, (Reported) Entered as Reported by: SHAMIR SALAZAR on 02/21/22 1511 Ipratropium [place] (Ipratropium [place]) 0.2 Mg/1 Ml Solution, 1 VIAL NEB TID, (Reported) Entered as Reported by: JESÚS PHILLIPS on 03/07/15 1640 Loratadine (Loratadine) 10 Mg Tablet, 10 MG PO DAILY, (Reported) Entered as Reported by: JESÚS PHILLIPS on 03/07/15 1623 Montelukast Sodium (Montelukast Sodium) 10 Mg Tablet, 10 MG PO HS, (Reported) Entered as Reported by: MELISSA MONTERO on 05/18/17 1103 Pantoprazole Sodium (Pantoprazole Sodium) 40 Mg Tablet.dr, 40 MG PO DAILY, (Reported) Entered as Reported by: JESÚS PHILLIPS on 03/07/15 1623 Potassium Chloride (K-Tab ER) 10 Meq Tablet.er, 20 MEQ PO BID, (Reported) Entered as Reported by: YOSSI NELSON on 05/28/19 0952 Prednisone (Prednisone) 20 Mg Tab, 40 MG PO DAILY Prescribed by: ALVA LAMAR on 11/19/22 1411 Warfarin Sodium ([place]) 4 Mg Tablet, 4 MG PO NORTH,,TH,SAT @1800, (Reported) Entered as Reported by: YOSSI NELSON on 05/28/19 0952 Warfarin Sodium ([place]) 5 Mg Tablet, 5 MG PO MO,WE,FR @1800, (Reported) Entered as Reported by: SHAMIR SALAZAR on 07/20/19 1602 Zinc Amino Acid Chelate (Zinc) 50 Mg Tablet, 50 MG PO DAILY, (Reported) Entered as Reported by: VERNA IKM on 05/15/22 0947 Review of Systems Review of Systems Constitutional: see HPI Past Dvirkap-Tqgoyd-Wsgdyi Hx Patient Social History Tobacco Use?: No Smoking Status: Former Smoker Use of E-Cig and/or Vaping dev: No Substance use?: No Alcohol Use?: No Immunizations Up To Date Tetanus Booster (TDap): Unknown PED Vaccines UTD: No First/Initial COVID19 Vaccinat: NO Second COVID19 Vaccination Alverto: NO Third COVID19 Vaccination Date: NO Seasonal Allergies Seasonal Allergies: Yes Past Medical History Surgery/Hospitalization HX: Heart cath, hysterectomy, knee scope, ablasion on both knees, hernia reapir, copd, chf, asthma Surgeries: Yes (C/S X2, KNEE SCOPE, SHOULDER SCOPE, d&C, BILAT ULNAR NERVE, VENA CAVA FILTE) Abdominal, Adenoidectomy, Section, Gallbladder, Hysterectomy, Orthopedic, Tonsillectomy, Tubal Ligation, Vascular Surgery Respiratory: Yes (O2 AT HS 2-3L/NC AND PRN--NOCTURNAL HYPOXIA; ) Asthma, Pneumonia, Chronic Bronchitis, Pulmonary Embolism, COPD Currently Using CPAP: No Currently Using BIPAP: No Cardiac: Yes (MULTIPLE DVT'S AND P.E.'S ) Chronic Edema/Swelling, Deep Vein Thrombosis, High Cholesterol, Hypertension, Peripheral Vascular Neurological: Yes Neuropathy 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 Disorders: 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: Hysterectomy, Menopausal Sexually Transmitted Disease: No HIV/AIDS: No 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: Yes Kidney Infection, Bladder Infection, Kidney Stones Gastrointestinal: Yes (MULTIPLE HERNIA REPAIRS; MULTIPLE EGD'S /COLONOSCOPIES/POLYPECTOMIES) Abdominal Hernia, Gastroesophageal Reflux, Chronic Constipation, Chronic Diarrhea, Hepatitis, Polyps, Hiatal Hernia, Irritable Bowel Musculoskeletal: Yes (MULTIPLE ORTHO SURGERIES) Arthritis Endocrine: Yes ("PRE-DIABETIC" ) HEENT: Yes (NASAL POLYPS REMOVED) Cataract Loss of Vision: Denies Hearing Impairment: Denies Cancer: No Did You Recieve Any Treatments: No Psychosocial: Yes Anxiety Integumentary: Yes (CHRONIC VENOUS STASIS DERMATITIS AND ULCERS. CELLULTITIS OF LEGS;TATTOOS ) Blood Disorders: Yes (DVT'S/PE'S; PROBABLE PROTEIN C DEFICIENCY) Adverse Reaction/Blood Tranf: No (HAS HAD BLOOD WITH NO PROBLEMS) Family Medical History Alcoholism Alcoholism Arthritis Asthma 19 MOTHER Cancer G8 BROTHER G8 SISTER Cancer of colon Cancer of mouth Cardiovascular disease Cataract Cataracts Chest pain Colon cancer Completed stroke Diabetes mellitus Family history: Allergy Family history: Arthritis Family history: Asthma Family history: Cardiovascular disease Family history: Coronary thrombosis Family history: Diabetes mellitus G8 BROTHER G8 SISTER Family history: Gastrointestinal disease Family history: Hypertension Family history: Thyroid disorder Headache Hearing loss Heart disease 19 MOTHER History of - anemia History of - respiratory disease Hypercholesterolemia Hypercholesterolemia Hypertension 19 FATHER Infertile Malignant neoplasm of lung Myocardial infarction Myocardial infarction Psychotic disorder Respiratory disorder Stroke No Family History of: AIDS Abdominal aortic aneurysm Abdominal aortic aneurysm Brimley's disease Brimley's disease Alzheimer's disease Aphasia Aphasia Congenital disease Congenital heart disease Congenital heart disease Congestive heart failure Coronary thrombosis Cystic fibrosis Cystic fibrosis Deafness or hearing loss Dementia Dementia Drug abuse Dysphagia Dysphasia Family history: Alzheimer's disease Family history: Breast disease Family history: Glaucoma Family history: Osteoporosis Fibrocystic disease of breast Gastroenteritis Glaucoma Headache disorder Hereditary disease History of - disorder History of drug abuse Human immunodeficiency virus (HIV) seropositivity Infertility Kidney disease Kidney disease Neoplasm Not obtainable due to adoption Osteoporosis Parkinson's disease Parkinson's disease Prostate cancer Psychosocial problem Seizure disorder Seizure disorder Severe allergy Thyroid disease Tuberculosis Tuberculosis Visual disorder Visual impairment Cancer, COPD, Vascular Disease SOCIAL HISTORY: -ETOH--RARE USE NOW, HISTORY OF HEAVY USE/ABUSE -DRUGS-HX OF IV COCAINE USE -SMOKED 1 PPD, QUIT 2000 PAST SURGICAL HISTORY: -C-SECTIONS 1981, 1985 -SHOULDER SURGERY 2007 -LEFT KNEE SURGERY 2008 -D&C 2008 -HYSTERECTOMY/BILATERAL SALPINGO-OOPHORECTOMY 2008 -VENA CAVA FILTER 2009 -EGD 2010 -VEIN STRIPPING IN LEGS 2012 -BILATERAL ELBOW/ULNAR NERVE SURGERY 2012 -MULTIPLE HERNIA REPAIRS -MULTIPLE EGD'S AND COLONOSCOPIES AND POLYPECTOMIES -TONSILLECTOMY/ADENOIDECTOMY -CHOLECYSTECTOMY -NASAL POLYPS REMOVED -BILATERAL LEG RADIOABLATION 06/2018 ADDITIONAL PAST MEDICAL HISTORY: -MULTIPLE DVT'S AND P.E.'S -CHRONIC VENOUS STASIS ULCERATIONS -LEG CELLULITIS Physical Exam Vital Signs Vital Signs - First Documented 03/20/23 22:02 Temp 37.0 Pulse 113 Resp 20 B/P (MAP) 113/90 (98) Pulse Ox 93 O2 Delivery Nasal Cannula O2 Flow Rate 2.00 Capillary Refill : Less Than 3 Seconds Height, Weight, BMI Height: 5'5.00" Weight: 184lbs. 5.0oz. 83.578912re; 33.00 BMI Method:Stated General Appearance: No Apparent Distress, WD/WN HEENT: Normal ENT Inspection, Pharynx Normal Neck: Supple Respiratory: Chest Non Tender, No Accessory Muscle Use, Wheezing (Diffuse inspiratory and expiratory wheezes bilaterally) Cardiovascular: No Murmur, Tachycardia Extremity: Other (Changes consistent with chronic venous stasis bilaterally. She has 3 small superficial wounds to the left lateral calf, posterior calf. There is no drainage. They do not appear overtly infected. There is no surrounding erythema. No induration or fluctuance.) Neurologic/Psychiatric: Alert, Oriented x3 Skin: Other (Skin changes as described above the bilateral lower extremities. Wounds as described above) Progress/Results/Core Measures Suspected Sepsis SIRS Temperature: Pulse: 113 Respiratory Rate: 20 Laboratory Tests 03/20/23 22:43: White Blood Count 7.3 Blood Pressure 113 /90 Mean: 98 Laboratory Tests 03/20/23 22:43: Creatinine 0.67, Platelet Count 260, Total Bilirubin 0.3 Results/Orders Lab Results Laboratory Tests Test 03/20/23 22:43 Range/Units White Blood Count 7.3 4.3-11.0 10^3/uL Red Blood Count 4.30 3.80-5.11 10^6/uL Hemoglobin 12.0 11.5-16.0 g/dL Hematocrit 38 35-52 % Mean Corpuscular Volume 88 80-99 fL Mean Corpuscular Hemoglobin 28 25-34 pg Mean Corpuscular Hemoglobin Concent 32 32-36 g/dL Red Cell Distribution Width 15.9 H 10.0-14.5 % Platelet Count 260 130-400 10^3/uL Mean Platelet Volume 8.7 L 9.0-12.2 fL Immature Granulocyte % (Auto) 0 % Neutrophils (%) (Auto) 52 42-75 % Lymphocytes (%) (Auto) 28 12-44 % Monocytes (%) (Auto) 9 0-12 % Eosinophils (%) (Auto) 10 0-10 % Basophils (%) (Auto) 1 0-10 % Neutrophils # (Auto) 3.8 1.8-7.8 10^3/uL Lymphocytes # (Auto) 2.1 1.0-4.0 10^3/uL Monocytes # (Auto) 0.6 0.0-1.0 10^3/uL Eosinophils # (Auto) 0.7 H 0.0-0.3 10^3/uL Basophils # (Auto) 0.1 0.0-0.1 10^3/uL Immature Granulocyte # (Auto) 0.0 0.0-0.1 10^3/uL Sodium Level 141 135-145 MMOL/L Potassium Level 3.6 3.6-5.0 MMOL/L Chloride Level 106 98-107 MMOL/L Carbon Dioxide Level 23 21-32 MMOL/L Anion Gap 12 5-14 MMOL/L Blood Urea Nitrogen 11 7-18 MG/DL Creatinine 0.67 0.60-1.30 MG/DL Estimat Glomerular Filtration Rate 98 BUN/Creatinine Ratio 16 Glucose Level 112 H 70-105 MG/DL Calcium Level 8.9 8.5-10.1 MG/DL Corrected Calcium 9.2 8.5-10.1 MG/DL Total Bilirubin 0.3 0.1-1.0 MG/DL Aspartate Amino Transf (AST/SGOT) 15 5-34 U/L Alanine Aminotransferase (ALT/SGPT) 13 0-55 U/L Alkaline Phosphatase 79 40-136 U/L Total Protein 7.2 6.4-8.2 GM/DL Albumin 3.6 3.2-4.5 GM/DL My Orders Orders - MARLYSSANAM L DO Comprehensive Metabolic Panel (03/20/23 22:37) Cbc And Automated Diff (03/20/23 22:37) Chest 1 View, Ap/Pa Only (03/20/23 22:37) Ipratropium/Albuterol Inh Soln (Ipratrop (03/20/23 22:45) Svn Small Volume Nebulizer (03/20/23 22:37) Medications Given in ED Current Medications Medications Dose Ordered Sig/Nahomi Route Start Time Stop Time Status Last Admin Dose Admin Albuterol/ Ipratropium 3 ml ONCE ONCE INH 03/20/23 22:45 03/20/23 22:46 DC 03/20/23 22:48 3 ML Vital Signs/I&O 03/20/23 22:02 Temp 37.0 Pulse 113 Resp 20 B/P (MAP) 113/90 (98) Pulse Ox 93 O2 Delivery Nasal Cannula O2 Flow Rate 2.00 Capillary Refill : Less Than 3 Seconds Blood Pressure Mean: 98 Departure Communication (Admissions) Patient is hemodynamically stable on 2 L oxygen via nasal cannula which she wears at home intermittently and has been wearing for the last couple of days with her current illness. Chest x-ray shows a right lower lobe infiltrate versus atelectasis. She has had this in the past and it is unclear if this is chronic or not however with her symptoms of persistent cough I will go ahead and treat her with some antibiotics. I chose doxycycline which would also cover any mild skin infections that may be there however her skin does not appear overtly infected at this time and I think this is more related to delayed wound healing. She be discharged home in stable condition with close primary care follow-up and strict return precautions. Impression Primary Impression: Right lower lobe pulmonary infiltrate Disposition: 01 HOME, SELF-CARE Condition: Stable Departure-Patient Inst. Referrals: LEAH WOLF MD (PCP/Family) Primary Care Physician Patient Instructions: Pneumonia, Adult ED Add. Discharge Instructions: Take the antibiotics as prescribed until they are gone. Your chest x-ray shows you may have a slight pneumonia in the right lower lobe. We have also chosen an antibiotic that should cover any skin infection should you have a slight infection in your skin however does not appear overtly infected at this time. Please follow-up with your primary doctor for any nonemergent needs. Return to the emergency department for any severe concerns. All discharge instructions reviewed with patient and/or family. Voiced understanding. Scripts Doxycycline Hyclate (Doxycycline Hyclate) 100 Mg Tablet 100 MG PO BID for 7 Days, #14 TAB Prov: SANAM FRANKEL DO 03/20/23 SANAM FRANKEL DO Mar 20, 2023 22:42
[2023-03-20] MEDS ORDERED: RT-Ipratropium/Albuterol NEB 3 ML VIAL INH ONE (22:45)
[2023-03-20 22:50] LABS: BASOPHILS # (AUTO) 0.1 10^3/uL (0.0-0.1); BASOPHILS % (AUTO) 1 % (0-10); EOSINOPHILS # (AUTO) 0.7 10^3/uL (0.0-0.3); EOSINOPHILS % (AUTO) 10 % (0-10); HEMATOCRIT 38 % (35-52); LYMPHOCYTES # (AUTO) 2.1 10^3/uL (1.0-4.0); LYMPHOCYTES % (AUTO) 28 % (12-44); MEAN CORPUSCULAR HEMOGLOBIN 28 pg (25-34); MEAN CORPUSCULAR HGB CONC 32 g/dL (32-36); MEAN CORPUSCULAR VOLUME 88 fL (80-99); MEAN PLATELET VOLUME 8.7 fL (9.0-12.2); MONOCYTES # (AUTO) 0.6 10^3/uL (0.0-1.0); MONOCYTES % (AUTO) 9 % (0-12); NEUTROPHILS # (AUTO) 3.8 10^3/uL (1.8-7.8); NEUTROPHILS % (AUTO) 52 % (42-75); PLATELET COUNT 260 10^3/uL (130-400); WHITE BLOOD COUNT 7.3 10^3/uL (4.3-11.0)
[2023-03-20 23:08] LABS: ALBUMIN 3.6 GM/DL (3.2-4.5)
[2023-03-20 23:09] LABS: POTASSIUM 3.6 MMOL/L (3.6-5.0)
[2023-03-20 23:10] LABS: CALCIUM 8.9 MG/DL (8.5-10.1)
[2023-03-20 23:11] LABS: TOTAL PROTEIN 7.2 GM/DL (6.4-8.2)
[2023-03-20 23:13] LABS: BILIRUBIN,TOTAL 0.3 MG/DL (0.1-1.0)
[2023-03-20 23:15] LABS: CREATININE SERUM 0.67 MG/DL (0.60-1.30)
[2023-03-20] MEDS ORDERED: DOXY100T2 PO (23:30)
[2023-03-20 23:40] VITALS: BP 117/75
--- NOTE | 2023-03-21 08:11 | Diagnostic Imaging Report ---
EXAMINATION: Chest 1 view HISTORY: cough, dyspnea COMPARISON: 09/25/2019 FINDINGS: The lungs are hyperinflated without edema or pneumonia. No pleural effusion or pneumothorax. Heart size is normal. IMPRESSION: 1. Hyperinflated but clear lungs. Dictated by: Dictated on workstation # [id number]
== END 2023-03-20 23:40 | disposition home or self-care (01) ==
LOC: EDUNIT# 21:53 → ER 21:55
DX: R91.8 Other nonspecific abnormal finding of lung field (principal); Z87.891 Personal history of nicotine dependence; Z91.040 Latex allergy status
CPT/HCPCS: 36415; 71045; 80053; 85025

== ENCOUNTER 2023-03-27 11:14 | Outpatient (RCR) | payer MEDICAID ==
[2023-03-27 11:58] LABS: PROTHROMBIN TIME PATIENT 23.8 SEC (12.2-14.7)
[2023-03-30] MEDS ORDERED: PRD20T PO (10:19)
== END 2023-04-11 | disposition home or self-care (01) ==
LOC: LAB 11:14
PROVIDERS: ATTEND Family Medicine
DX: Z00.00 Encounter for general adult medical examination without abnormal findings (principal); I82.409 Acute embolism and thrombosis of unspecified deep veins of unspecified lower extremity
CPT/HCPCS: 36415; 85610

== ENCOUNTER → 2023-03-27 | Outpatient (CLI) | payer MEDICAID | LOC: WOUNDCARE 09:17 | PROVIDERS: ATTEND Family Medicine | DX: I87.312 Chronic venous hypertension (idiopathic) with ulcer of left lower extremity (principal); E11.622 Type 2 diabetes mellitus with other skin ulcer; L97.221 Non-pressure chronic ulcer of left calf limited to breakdown of skin; I89.0 Lymphedema, not elsewhere classified; E66.01 Morbid (severe) obesity due to excess calories; Z68.31 Body mass index [BMI] 31.0-31.9, adult | CPT/HCPCS: 97597 ==

== ENCOUNTER 2023-03-30 07:42 | Emergency (ER) | payer MEDICAID ==
[2023-03-30] MEDS ORDERED: OXYMETAZOLINE 0.05% NASAL SPRAY 30 ML BTL STA (08:12)
--- NOTE | 2023-03-30 08:15 | ED Respiratory ---
General Chief Complaint: Respiratory Problems Stated Complaint: ASTHMA Nursing Triage Note: PT AMB TO [facility] 5 PT CO OF SOA, PT IS VERY CONGESTED AND SOA. PT WEARS 02 AT NIGHT AT 2-3L. PT HAS BEEN OFF OF PREDNISONE FOR A WEEK, AFTER TAPERING OFF. PT STATES HAS BEEN WEARING O2 AT ALL TIMES FOR A FEW DAYS. PT HAS BEEN SEEN IN ED AND BY PCP THIS WEEK Source: patient, old records Exam Limitations: no limitations History of Present Illness Date Seen by Provider: Mar 30, 2023 Time Seen by Provider: 07:55 Allergies and Home Medications Allergies Coded Allergies: aspirin (Verified Allergy, Severe, ANAPHYLAXIS, 03/03/19) ibuprofen (Verified Allergy, Severe, ANAPHYLAXIS, 03/03/19) ketorolac (Verified Allergy, Severe, ANAPHYLAXIS, 03/03/19) tetanus and diphtheria toxoids (Unverified Allergy, Severe, ANAPHYLAXIS, 03/03/19) aloe (Verified Allergy, Mild, RASH, 03/03/19) latex (Verified Allergy, Mild, RASH, 03/03/19) OCCASIONALLY IS IRRITATING SKIN scopolamine (Verified Allergy, Mild, 03/03/19) chocolate flavor (Verified Allergy, Unknown, 10/20/21) coconut (Verified Allergy, Unknown, 10/20/21) tomato (Verified Allergy, Unknown, Rash, 10/20/21) iodine (Verified Adverse Reaction, Unknown, 03/03/19) Patient states she got dizzy, diaphoretic and saw stars. Uncoded Allergies: ALOE VERA (Allergy, Unknown, 12/23/05) SILK SUTURES (Adverse Reaction, Unknown, BODY REJECTS SUTURES, 10/07/13) Patient Home Medication List Acetaminophen (Tylenol Extra Strength) 500 Mg Tablet, 1,000 MG PO Q8H PRN for PAIN-MILD (1-4), (Reported) Entered as Reported by: VERNA KIM on 09/24/22 1417 Albuterol Sulfate (Albuterol Sulfate) 2.5 Mg/3 Ml (0.083 %) Vial.neb, 2.5 MG INH TID PRN for SHORTNESS OF BREATH, (Reported) Entered as Reported by: VERNA KIM on 12/25/21 1555 Albuterol Sulfate (Ventolin Hfa) 1 Puff Puff, 2 PUFF IH Q4H PRN for SHORTNESS OF BREATH, (Reported) Entered as Reported by: VERNA KIM on 12/25/21 1600 Alprazolam (Alprazolam) 1 Mg Tablet, 1 MG PO BID PRN for ANXIETY, (Reported) Entered as Reported by: JESÚS PHILLIPS on 03/07/15 1623 Calcium Carbonate/Vitamin D3 (Calcium 600 + Vit D 200 Tablet) 1 Each Tablet, 1 EACH PO BID, (Reported) Entered as Reported by: SHAMIR SALAZAR on 06/13/21 1034 Doxycycline Hyclate (Doxycycline Hyclate) 100 Mg Tablet, 100 MG PO BID Prescribed by: ALVA LAMAR on 11/19/22 1411 Doxycycline Hyclate (Doxycycline Hyclate) 100 Mg Tablet, 100 MG PO BID Prescribed by: SANAM FRANKEL MD on 03/20/23 2330 Furosemide (Furosemide) 40 Mg Tablet, 40 MG PO DAILY PRN for FLUID RETENTION, (Reported) Entered as Reported by: VERNA KIM on 05/15/22 0947 Hyoscyamine Sulfate (Hyoscyamine Sulfate) 0.125 Mg Tablet, 0.125 MG PO Q6H PRN for GI SPASMS, (Reported) Entered as Reported by: SHAMIR SALAZAR on 02/21/22 1511 Ipratropium [place] (Ipratropium [place]) 0.2 Mg/1 Ml Solution, 1 VIAL NEB TID, (Reported) Entered as Reported by: JESÚS PHILLIPS on 03/07/15 1640 Loratadine (Loratadine) 10 Mg Tablet, 10 MG PO DAILY, (Reported) Entered as Reported by: JESÚS PHILLIPS on 03/07/15 1623 Montelukast Sodium (Montelukast Sodium) 10 Mg Tablet, 10 MG PO HS, (Reported) Entered as Reported by: MELISSA MONTERO on 05/18/17 1103 Pantoprazole Sodium (Pantoprazole Sodium) 40 Mg Tablet.dr, 40 MG PO DAILY, (Reported) Entered as Reported by: JESÚS PHILLIPS on 03/07/15 1623 Potassium Chloride (K-Tab ER) 10 Meq Tablet.er, 20 MEQ PO BID, (Reported) Entered as Reported by: YOSSI NELSON on 05/28/19 0952 Prednisone (Prednisone) 20 Mg Tab, 40 MG PO DAILY Prescribed by: ALVA LAMAR on 11/19/22 1411 Warfarin Sodium (Jantoven) 4 Mg Tablet, 4 MG PO NORTH,,TH,SAT @1800, (Reported) Entered as Reported by: YOSSI NELSON on 05/28/19 0952 Warfarin Sodium (Jantoven) 5 Mg Tablet, 5 MG PO MO,WE,FR @1800, (Reported) Entered as Reported by: SHAMIR SALAZAR on 07/20/19 1602 Zinc Amino Acid Chelate (Zinc) 50 Mg Tablet, 50 MG PO DAILY, (Reported) Entered as Reported by: VERNA KIM on 05/15/22 0947 Past Fduwexe-Pewpuj-Ynkato Hx Patient Social History Tobacco Use?: No Substance use?: No Alcohol Use?: No Pt feels they are or have been: No Immunizations Up To Date Tetanus Booster (TDap): Unknown PED Vaccines UTD: No First/Initial COVID19 Vaccinat: NO Second COVID19 Vaccination Alverto: NO Third COVID19 Vaccination Date: NO Seasonal Allergies Seasonal Allergies: Yes Past Medical History Surgery/Hospitalization HX: Heart cath, hysterectomy, knee scope, ablasion on both knees, hernia reapir, copd, chf, asthma Surgeries: Yes (C/S X2, KNEE SCOPE, SHOULDER SCOPE, d&C, BILAT ULNAR NERVE, VENA CAVA FILTE) Abdominal, Adenoidectomy, Section, Gallbladder, Hysterectomy, Ort hopedic, Tonsillectomy, Tubal Ligation, Vascular Surgery Respiratory: Yes (O2 AT HS 2-3L/NC AND PRN--NOCTURNAL HYPOXIA; ) Asthma, Pneumonia, Chronic Bronchitis, Pulmonary Embolism, COPD Currently Using CPAP: No Currently Using BIPAP: No Cardiac: Yes (MULTIPLE DVT'S AND P.E.'S ) Chronic Edema/Swelling, Deep Vein Thrombosis, High Cholesterol, Hypertension, Peripheral Vascular Neurological: Yes Neuropathy 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 Disorders: Yes 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 OF RECRUITMENT History: Hysterectomy, Menopausal Sexually Transmitted Disease: No HIV/AIDS: No 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: Yes Kidney Infection, Bladder Infection, Kidney Stones Gastrointestinal: Yes (MULTIPLE HERNIA REPAIRS; MULTIPLE EGD'S /CO LONOSCOPIES/POLYPECTOMIES) Abdominal Hernia, Gastroesophageal Reflux, Chronic Constipation, Chronic Diarrhea, Hepatitis, Polyps, Hiatal Hernia, Irritable Bowel Musculoskeletal: Yes (MULTIPLE ORTHO SURGERIES) Arthritis Endocrine: Yes ("PRE-DIABETIC" ) HEENT: Yes (NASAL POLYPS REMOVED) Cataract Loss of Vision: Denies Hearing Impairment: Denies Cancer: No Did You Recieve Any Treatments: No Psychosocial: Yes Anxiety Integumentary: Yes (CHRONIC VENOUS STASIS DERMATITIS AND ULCERS. CELLULTITIS OF LEGS;TATTOOS ) Blood Disorders: Yes (DVT'S/PE'S; PROBABLE PROTEIN C DEFICIENCY) Adverse Reaction/Blood Tranf: No (HAS HAD BLOOD WITH NO PROBLEMS) Family Medical History Alcoholism Alcoholism Arthritis Asthma 19 MOTHER Cancer G8 BROTHER G8 SISTER Cancer of colon Cancer of mouth Cardiovascular disease Cataract Cataracts Chest pain Colon cancer Completed stroke Diabetes mellitus Family history: Allergy Family history: Arthritis Family history: Asthma Family history: Cardiovascular disease Family history: Coronary thrombosis Family history: Diabetes mellitus G8 BROTHER G8 SISTER Family history: Gastrointestinal disease Family history: Hypertension Family history: Thyroid disorder Headache Hearing loss Heart disease 19 MOTHER History of - anemia History of - respiratory disease Hypercholesterolemia Hypercholesterolemia Hypertension 19 FATHER Infertile Malignant neoplasm of lung Myocardial infarction Myocardial infarction Psychotic disorder Respiratory disorder Stroke No Family History of: AIDS Abdominal aortic aneurysm Abdominal aortic aneurysm [place]'s disease Fernando's disease Alzheimer's disease Aphasia Aphasia Congenital disease Congenital heart disease Congenital heart disease Congestive heart failure Coronary thrombosis Cystic fibrosis Cystic fibrosis Deafness or hearing loss Dementia Dementia Drug abuse Dysphagia Dysphasia Family history: Alzheimer's disease Family history: Breast disease Family history: Glaucoma Family history: Osteoporosis Fibrocystic disease of breast Gastroenteritis Glaucoma Headache disorder Hereditary disease History of - disorder History of drug abuse Human immunodeficiency virus (HIV) seropositivity Infertility Kidney disease Kidney disease Neoplasm Not obtainable due to adoption Osteoporosis Parkinson's disease Parkinson's disease Prostate cancer Psychosocial problem Seizure disorder Seizure disorder Severe allergy Thyroid disease Tuberculosis Tuberculosis Visual disorder Visual impairment Cancer, COPD, Vascular Disease SOCIAL HISTORY: -ETOH--RARE USE NOW, HISTORY OF HEAVY USE/ABUSE -DRUGS-HX OF IV COCAINE USE -SMOKED 1 PPD, QUIT 2000 PAST SURGICAL HISTORY: -C-SECTIONS 1981, 1985 -SHOULDER SURGERY 2007 -LEFT KNEE SURGERY 2008 -D&C 2008 -HYSTERECTOMY/BILATERAL SALPINGO-OOPHORECTOMY 2008 -VENA CAVA FILTER 2009 -EGD 2010 -VEIN STRIPPING IN LEGS 2012 -BILATERAL ELBOW/ULNAR NERVE SURGERY 2012 -MULTIPLE HERNIA REPAIRS -MULTIPLE EGD'S AND COLONOSCOPIES AND POLYPECTOMIES -TONSILLECTOMY/ADENOIDECTOMY -CHOLECYSTECTOMY -NASAL POLYPS REMOVED -BILATERAL LEG RADIOABLATION 06/2018 ADDITIONAL PAST MEDICAL HISTORY: -MULTIPLE DVT'S AND P.E.'S -CHRONIC VENOUS STASIS ULCERATIONS -LEG CELLULITIS Physical Exam Vital Signs - First Documented 03/30/23 07:50 Temp 37.1 Pulse 135 Resp 16 B/P (MAP) 124/75 (91) Pulse Ox 92 O2 Delivery Nasal Cannula O2 Flow Rate 3.00 Capillary Refill : Less Than 3 Seconds Height: 5'5.00" Weight: 184lbs. 5.0oz. 83.883148ff; 33.00 BMI Method:Stated Progress/Results/Core Measures Suspected Sepsis SIRS Temperature: Pulse: 135 Respiratory Rate: 16 Laboratory Tests 03/30/23 08:05: White Blood Count 7.0 Blood Pressure 124 /75 Mean: 91 Laboratory Tests 03/30/23 08:05: Creatinine 0.67, INR Comment 2.3H, Platelet Count 286 Results/Orders Lab Results Laboratory Tests Test 03/30/23 08:05 03/30/23 08:34 Range/Units White Blood Count 7.0 4.3-11.0 10^3/uL Red Blood Count 5.03 3.80-5.11 10^6/uL Hemoglobin 14.0 11.5-16.0 g/dL Hematocrit 45 35-52 % Mean Corpuscular Volume 89 80-99 fL Mean Corpuscular Hemoglobin 28 25-34 pg Mean Corpuscular Hemoglobin Concent 32 32-36 g/dL Red Cell Distribution Width 15.9 H 10.0-14.5 % Platelet Count 286 130-400 10^3/uL Mean Platelet Volume 9.0 9.0-12.2 fL Immature Granulocyte % (Auto) 0 % Neutrophils (%) (Auto) 47 42-75 % Lymphocytes (%) (Auto) 30 12-44 % Monocytes (%) (Auto) 7 0-12 % Eosinophils (%) (Auto) 16 H 0-10 % Basophils (%) (Auto) 1 0-10 % Neutrophils # (Auto) 3.3 1.8-7.8 10^3/uL Lymphocytes # (Auto) 2.1 1.0-4.0 10^3/uL Monocytes # (Auto) 0.5 0.0-1.0 10^3/uL Eosinophils # (Auto) 1.1 H 0.0-0.3 10^3/uL Basophils # (Auto) 0.0 0.0-0.1 10^3/uL Immature Granulocyte # (Auto) 0.0 0.0-0.1 10^3/uL Neutrophils % (Manual) 52 % Lymphocytes % (Manual) 30 % Monocytes % (Manual) 4 % Eosinophils % (Manual) 13 % Basophils % (Manual) 1 % Band Neutrophils 0 % Blood Morphology Comment NORMAL Prothrombin Time 26.6 H 12.2-14.7 SEC INR Comment 2.3 H 0.8-1.4 Sodium Level 140 135-145 MMOL/L Potassium Level 3.9 3.6-5.0 MMOL/L Chloride Level 103 98-107 MMOL/L Carbon Dioxide Level 29 21-32 MMOL/L Anion Gap 8 5-14 MMOL/L Blood Urea Nitrogen 6 L 7-18 MG/DL Creatinine 0.67 0.60-1.30 MG/DL Estimat Glomerular Filtration Rate 98 BUN/Creatinine Ratio 9 Glucose Level 104 70-105 MG/DL Calcium Level 9.6 8.5-10.1 MG/DL C-Reactive Protein High Sensitivity 0.10 0.00-0.50 MG/DL B-Type Natriuretic Peptide < 10.0 <100.0 PG/ML Influenza Type A (RT-PCR) Not Detected Not Detecte Influenza Type B (RT-PCR) Not Detected Not Detecte SARS-CoV-2 RNA (RT-PCR) Not Detected Not Detecte My Orders Orders - ALVA BENJAMIN MD Basic Metabolic Panel (03/30/23 08:12) Bnp [place] (03/30/23 08:12) Cbc And Automated Diff (03/30/23 08:12) Hs C Reactive Protein (03/30/23 08:12) Protime With Inr (03/30/23 08:12) Ed Iv/Invasive Line Start (03/30/23 08:12) O2 (03/30/23 08:12) Monitor-Rhythm Ecg Trace Only (03/30/23 08:12) Chest Pa/Lat (2 View) (03/30/23 08:12) Covid 19 Inhouse Test (03/30/23 08:12) Influenza A And B By Pcr (03/30/23 08:12) Oxymetazoline 0.05% Nasal [place] (Oxymetaz (03/30/23 08:12) Manual Differential (03/30/23 08:05) Prednisone Tablet (Prednisone Tablet) (03/30/23 10:15) Vital Signs/I&O 03/30/23 03/30/23 03/30/23 07:50 07:50 09:58 Temp 37.1 Pulse 135 Resp 16 B/P (MAP) 124/75 (91) Pulse Ox 92 94 O2 Delivery Nasal Cannula Nasal Cannula Nasal Cannula O2 Flow Rate 3.00 2.00 Capillary Refill : Less Than 3 Seconds Blood Pressure Mean: 91 Departure Impression Primary Impression: COPD exacerbation Additional Impression: Nasal congestion Disposition: HOME, SELF-CARE Condition: Stable Departure-Patient Inst. Decision time for Depature: 10:14 Referrals: LEAH WOLF MD (PCP/Family) Primary Care Physician Patient Instructions: COPD Exacerbation, Adult ED Add. Discharge Instructions: Continue your medications as previously prescribed. Start your steroid taper tomorrow. Please be aware this will likely interrupt the eosinophil testing that Dr. Mckeon had planned for you. Please notify him Saturday of your situation and your intolerance of abstaining from prednisone. For nasal congestion you may use the Afrin 1 spray per nostril twice daily for a maximum of 3 days (6 doses) as needed for severe nasal congestion. Do not use beyond [address] Mckeon about using a nasal steroid such as Flonase for maintenance treatment of your nasal congestion. You may also discuss using in haled or nebulized steroids as an alternative to daily prednisone use. Perhaps nasal and inhaled steroids will not disrupt the eosinophil testing he plans to do. Use the Acapella device 10 puffs every hour while awake if you are having trouble with thick mucus that is difficult to clear. Return to the ER if you are having worsening symptoms despite following these instructions. All discharge instructions reviewed with patient and/or family. Voiced understanding. Scripts Prednisone (Prednisone) 20 Mg Tab 1 TAB PO UD, #15 TAB 0 Refills Take 3 tabs daily Mar 31 and . Take 2 tabs daily Apr 02. Take 1 tab daily Apr 05. Prov: ALVA BENJAMIN MD 03/30/23 ALVA BENJAMIN MD Mar 30, 2023 08:15
[2023-03-30 08:21] LABS: BASOPHILS % (AUTO) 1 % (0-10); EOSINOPHILS # (AUTO) 1.1 10^3/uL (0.0-0.3); EOSINOPHILS % (AUTO) 16 % (0-10); HEMATOCRIT 45 % (35-52); LYMPHOCYTES # (AUTO) 2.1 10^3/uL (1.0-4.0); LYMPHOCYTES % (AUTO) 30 % (12-44); MEAN CORPUSCULAR HEMOGLOBIN 28 pg (25-34); MEAN CORPUSCULAR HGB CONC 32 g/dL (32-36); MEAN CORPUSCULAR VOLUME 89 fL (80-99); MONOCYTES # (AUTO) 0.5 10^3/uL (0.0-1.0); MONOCYTES % (AUTO) 7 % (0-12); NEUTROPHILS # (AUTO) 3.3 10^3/uL (1.8-7.8); NEUTROPHILS % (AUTO) 47 % (42-75); PLATELET COUNT 286 10^3/uL (130-400)
[2023-03-30 08:25] LABS: POTASSIUM 3.9 MMOL/L (3.6-5.0)
[2023-03-30 08:27] LABS: CALCIUM 9.6 MG/DL (8.5-10.1); INR 2.3 (0.8-1.4); PROTHROMBIN TIME PATIENT 26.6 SEC (12.2-14.7)
[2023-03-30 08:31] LABS: CREATININE SERUM 0.67 MG/DL (0.60-1.30)
[2023-03-30 08:45] LABS: BAND NEUTROPHILS 0 %; BASOPHILS % (MANUAL) 1 %; EOSINOPHILS % (MANUAL) 13 %; LYMPHOCYTES % (MANUAL) 30 %; MONOCYTES % (MANUAL) 4 %; NEUTROPHILS % (MANUAL) 52 %; RBC MORPH NORMAL
--- NOTE | 2023-03-30 09:23 | Diagnostic Imaging Report ---
EXAMINATION: CHEST (PA AND LATERAL) CLINICAL INDICATION: 62-year-old female, shortness of breath, cough, and congestion. COMPARISON: November 19, 2022. FINDINGS: Heart size and mediastinal contours are unremarkable. There is flattening of hemidiaphragms. There is no identified pneumothorax. There is no pleural effusion. There is no identified interval focal airspace consolidation. IMPRESSION: 1. Findings suggesting chronic obstructive pulmonary disease without identified acute cardiopulmonary abnormality. Dictated by: Dictated on workstation # [id number]
[2023-03-30] MEDS ORDERED: predniSONE 20 MG TABLET PO ONE (10:15)
[2023-03-30] MEDS ORDERED: PRD20T PO (10:19)
[2023-03-30 10:36] VITALS: BP 112/64
== END 2023-03-30 10:36 | disposition home or self-care (01) ==
LOC: EDUNIT# 07:42 → ER 07:43
DX: J44.1 Chronic obstructive pulmonary disease with (acute) exacerbation (principal); Z91.040 Latex allergy status; Z87.891 Personal history of nicotine dependence
CPT/HCPCS: 36415; 71046; 80048; 83880; 85007; 85027; 85610; 86141; 87636; 93041; 94640

== ENCOUNTER → 2023-04-02 | Outpatient (CLI) | payer MEDICAID | LOC: WOUNDCARE 08:13 | PROVIDERS: ATTEND Family Medicine | DX: L97.221 Non-pressure chronic ulcer of left calf limited to breakdown of skin (principal); I87.312 Chronic venous hypertension (idiopathic) with ulcer of left lower extremity; I89.0 Lymphedema, not elsewhere classified; E11.622 Type 2 diabetes mellitus with other skin ulcer; E66.01 Morbid (severe) obesity due to excess calories | CPT/HCPCS: 29581 ==